=== PATIENT | male | born 1945 | race Caucasian/White ===

== ENCOUNTER 2023-04-01 11:04 | Emergency (ER) | payer MEDICARE, SELFPAY ==
[2023-04-01 11:06] VITALS: BP 137/62; PULSE 116; RESP 16; TEMP 36.4; O2SAT 100
--- NOTE | 2023-04-01 11:26 | EDS_ITS ---
HPI <TY Gordillo - Last Filed: 04/01/23 15:56> History of Present Illness Chief Complaint: Cellulitis Narrative Narrative: Patient presenting today with cellulitis to his right arm that he has had for the past 4 days. He reports that the area has been worsening prompting him to come in to be evaluated. He denies any fever, chills, abdominal pain, nausea, and vomiting. PMH includes hyperlipidemia, hypertension, and a, leaky heart valve. PFSH <TY Gordillo - Last Filed: 04/01/23 15:56> PFSH Medical History (Updated 04/01/23 @ 11:[address] Michael Hogan MD) Arthritis Hypertension Leaky heart valve Home Medications cephalexin 500 mg capsule 500 mg PO Q6 #40 CAPSULES 04/01/23 [Rx Last Taken Unknown] Allergy/AdvReac Type Severity Reaction Status Date / Time sacubitril [From Entresto] Allergy Mild cough Verified 04/01/23 11:06 valsartan [From Entresto] Allergy Mild cough Verified 04/01/23 11:06 Social History Smoking Status: Never smoker ROS <TY Gordillo - Last Filed: 04/01/23 15:56> ROS ED Constitutional Constitutional ED: Denies chills or fever(s) Cardiovascular Cardiovascular: Denies chest pain Respiratory/Chest Respiratory/Chest: Denies cough or dyspnea Gastrointestinal Gastrointestinal: Denies abdominal pain, nausea or vomiting Musculoskeletal Musculoskeletal: Denies arthralgias or myalgias Integumentary Denies rash Neurologic Neurologic: Denies paresthesias or weakness EXAM <TY Gordillo - Last Filed: 04/01/23 15:56> Physical Exam Const Vital Signs: 04/01/23 11:06 04/01/23 11:56 04/01/23 11:56 Temperature 97.6 F L 98.5 F 98.5 F Temperature Source Temporal Oral Oral Pulse Rate 116 H 104 H 105 H Respiratory Rate 16 23 H 18 Blood Pressure 137/62 H 111/70 111/70 Blood Pressure Mean 87 83 83 Pulse Ox 100 95 95 Oxygen Delivery Method Room Air Room Air Room Air 04/01/23 13:19 04/01/23 13:19 04/01/23 14:52 Temperature 98.5 F Temperature Source Oral Pulse Rate 90 90 100 Respiratory Rate 18 18 Blood Pressure 120/68 120/68 120/72 Blood Pressure Mean 85 85 88 Pulse Ox 91 91 96 Oxygen Delivery Method Room Air Room Air Positive well nourished, well developed and no apparent distress General Appearance ED: well developed HEENT Reports normocephalic and head/scalp atraumatic Mouth ED: Yes moist mucous membranes normal Eyes PERRL and EOMs intact bilaterally Neck full ROM and supple Chest Wall inspection of chest normal Resp normal respiratory effort and clear to auscultation bilaterally Cardio regular rate and regular rhythm GI soft to palpation, non-tender, non-distended and no masses Back/Spine normal ROM and normal to inspection Extremity full ROM Extremity Narrative: Generalized erythema, edema, and warmth to the right forearm and upper arm, no lymphangitic streaking, radial pulse 2+ and equal bilaterally, good cap refill, sensation intact. Small scabbed dime size wound to the right volar mid forearm without any purulent discharge. Neuro oriented x3, CN's II-XII intact bilaterally, moves all extremities, no focal motor deficits and no sensory deficits noted Sensorium / Orientation: awake and alert Psych mental status grossly normal and thought process normal Skin no rashes or lesions noted and no wounds <Dr. Michael Hogan MD - Last Filed: 04/01/23 11:45> Physical Exam Const Vital Signs: 04/01/23 11:06 04/01/23 11:56 04/01/23 11:56 Temperature 97.6 F L 98.5 F 98.5 F Temperature Source Temporal Oral Oral Pulse Rate 116 H 104 H 105 H Respiratory Rate 16 23 H 18 Blood Pressure 137/62 H 111/70 111/70 Blood Pressure Mean 87 83 83 Pulse Ox 100 95 95 Oxygen Delivery Method Room Air Room Air Room Air 04/01/23 13:19 04/01/23 13:19 04/01/23 14:52 Temperature 98.5 F Temperature Source Oral Pulse Rate 90 90 100 Respiratory Rate 18 18 Blood Pressure 120/68 120/68 120/72 Blood Pressure Mean 85 85 88 Pulse Ox 91 91 96 Oxygen Delivery Method Room Air Room Air MDM <TY Gordillo - Last Filed: 04/01/23 15:56> [facility] MDM Narrative Medical decision making narrative: Patient presenting today due to cellulitis to his right upper extremity, he does have erythema and edema to the forearm and upper arm without any lymphangitic streaking. There is a small scabbed dime sized wound to the volar aspect of the midforearm that is likely the source of infection. Patient is tachycardic here at 116 bpm, but he is nontoxic-appearing and afebrile. Labs obtained and he will be started on antibiotics. Patient does have an elevated WBC at 13.9. He has been started on vancomycin and Ancef. Patient would prefer to be treated as an outpatient which I think is reasonable. The cellulitis was marked with a marker and he will be put on Keflex. He has been given strict return instructions and is to follow-up with his PCP in 3 to 5 days. He will be discha rged home in stable condition and is comfortable with plan. Lab Data Lab results narrative: WBC 13.9, BUN 27 Labs: Laboratory Results - last 24 hr 04/01/23 11:25 WBC 13.9 H RBC 4.52 L Hgb 14.4 Hct 44.9 MCV 99.3 H MCH 31.9 MCHC 32.1 RDW Std Deviation 48.9 H RDW Coeff of Santiago 13.3 Plt Count 158 MPV 9.7 Immature Gran % (Auto) 0.800 Neut % (Auto) 88.0 H Lymph % (Auto) 5.5 L Cedar % (Auto) 5.3 Eos % (Auto) 0.1 Baso % (Auto) 0.3 Absolute Neuts (auto) 12.3 H Absolute Lymphs (auto) 0.77 L Nucleated RBC % 0 Sodium 140 Potassium 3.9 Chloride 108 H Carbon Dioxide 26.0 Anion Gap 6 BUN 27 H Creatinine 1.11 Estim Creat Clear Calc 53.08 Est GFR (MDRD) Af Amer 82 Est GFR (MDRD) Non-Af 68 BUN/Creatinine Ratio 24.3 H Glucose 193 H Calcium 8.8 <Dr. Michael Hogan MD - Last Filed: 04/01/23 11:45> [facility] Lab Data Attestation: I reviewed the patient's lab results. Labs: Laboratory Results - last 24 hr 04/01/23 11:25 WBC 13.9 H RBC 4.52 L Hgb 14.4 Hct 44.9 MCV 99.3 H MCH 31.9 MCHC 32.1 RDW Std Deviation 48.9 H RDW Coeff of [place] 13.3 Plt Count 158 MPV 9.7 Immature Gran % (Auto) 0.800 Neut % (Auto) 88.0 H Lymph % (Auto) 5.5 L Cedar % (Auto) 5.3 Eos % (Auto) 0.1 Baso % (Auto) 0.3 Absolute Neuts (auto) 12.3 H Absolute Lymphs (auto) 0.77 L Nucleated RBC % 0 Sodium 140 Potassium 3.9 Chloride 108 H Carbon Dioxide 26.0 Anion Gap 6 BUN 27 H Creatinine 1.11 Estim Creat Clear Calc 53.08 Est GFR (MDRD) Af Amer 82 Est GFR (MDRD) Non-Af 68 BUN/Creatinine Ratio 24.3 H Glucose 193 H Calcium 8.8 Treatment and Re-Evaluation Comments:: I have personally performed a face to face assessment of the patient and have reviewed the GILDA Note. I performed a substantive portion of the visit including all aspects of the following. My morrow findings include: History is gradual onset mild soreness, with redness and swelling right upper extremity over the last few days, no known injury, no systemic symptoms. Exam is diffuse swelling right upper extremity down to the wrist, with erythema that is only mildly tender, there is no induration and there is no fluctuance/abscess but there are several scabbed areas within the area of erythema and mild tenderness, any of which could have been nidus for infection, patient unsure how he got these. All compartments soft and nondistended full range of motion all joints except for shoulders which she has chronic discomfort in, but he can move them well below his head, is neurovascular intact distally, and he is well-appearing nontoxic otherwise. Medical Decison Making Labs, IV antibiotics, offered admission patient prefers to go home, so we will try to give him Ancef and vancomycin here for the most IV coverage possible, followed by a outlining the red area proximally with a skin marking pen and prescribing outpatient or antibiotics with close outpatient follow-up advised. We discussed reasons to return to comfortable with the plan. Other additions or changes: [None] Discharge Plan Triage Chief Complaint: Cellulitis ED Midlevel Provider: Anna Koehler ED Provider: Michael Hogan Dx/Rx/DC Orders Clinical Impression: Cellulitis of right upper extremity Instructions: Cellulitis Dc Prescriptions: New cephalexin 500 mg capsule 500 mg PO Q6 Qty: 40 0RF Primary Care Provider: Sebastián Stewart Referrals: Sebastián Stewart MD [Primary Care Provider] - 3-5 Days Activity Restrictions/Additional Instructions: Take antibiotics as prescribed, follow-up with your PCP in 3 to 5 days and return for any worsening of your symptoms. Disposition Disposition: Home, Self Care Discharge Date/Time: 04/01/23 14:58
[2023-04-01 11:37] LABS: Absolute Lymphocyte Count 0.77 X10^3/uL (0.83-4.51); Absolute Neutrophil Count 12.3 X10^3/uL (2.0-7.7); Basophil# 0.04 X10^3/uL; Basophil% 0.3 % (0-1); Eosinophil# 0.01 X10^3/uL; Eosinophils% 0.1 % (0-5); Hematocrit 44.9 % (40-54); Hemoglobin 14.4 g/dL (13.0-16.5); Lymphocyte # 0.77 X10^3/ul (0.83-4.51); Lymphocyte % 5.5 % (19-41); Mean Corp Hgb Conc 32.1 g/dL (32-36); Mean Corpuscular Hgb 31.9 pg (27.0-32.0); Mean Corpuscular Volume 99.3 fL (80-94); Mean Platelet Vol. 9.7 fl (6.2-12.0); Monocyte# 0.74 X10^3/uL; Monocyte% 5.3 % (0-10); NRBC Flagged by Analyzer 0 % (0-5); Neutrophil # 12.27 X10^3/uL (2.7-7.7); Platelet Count 158 K/mm3 (150-450); RBC Distribution Width CV 13.3 % (11.6-14.6); RBC Distribution Width SD 48.9 fl (35.1-43.9); Red Blood Count 4.52 M/mm3 (4.6-6.2); White Blood Count 13.9 K/mm3 (4.4-11.0)
[2023-04-01 11:48] VITALS: BMI 32.2
[2023-04-01 11:51] LABS: Anion Gap 6 (5-15); BUN 27 mg/dL (7-18); BUN/Creat Ratio 24.3 RATIO (10-20); Calcium,Total 8.8 mg/dL (8.5-10.1); Chloride 108 mmol/L (98-107); Creatinine, Serum 1.11 mg/dL (0.70-1.30); EST Glomerular Filtration Rate 68 mL/min (>60); Est Glom Filt Rate - Afr Amer 82 mL/min (>60); Estimated Creatinine Clearance 53.08 ml/min; Glucose 193 mg/dL (74-106); Potassium 3.9 mmol/L (3.5-5.1); Sodium Level 140 mmol/L (136-145)
[2023-04-01 11:56] VITALS: BP 111/70; PULSE 104; PULSE 105; RESP 18; RESP 23; TEMP 36.9; O2SAT 95; BMI 32.5
[2023-04-01] MEDS: Cefazolin 1 GM/50 ML BAG IV (12:03)
[2023-04-01] MEDS: Vancomycin HCl 1,500 MG in 0.9% Normal Saline (500mL Bag) 500 ML 250 MG IV (12:43)
[2023-04-01 13:19] VITALS: BP 120/68; PULSE 90; RESP 18; TEMP 36.9; O2SAT 91
[2023-04-01 14:52] VITALS: BP 120/72; PULSE 100; O2SAT 96
== END 2023-04-01 14:58 | disposition home or self-care (01) ==
PROVIDERS: Physician Assistant; Emergency Provider Emergency Medicine; PCP Family Medicine; Visit Provider Emergency Medicine
DX: L03.113 Cellulitis of right upper limb (principal); R60.0 Localized edema; E78.5 Hyperlipidemia, unspecified; I10 Essential (primary) hypertension
CPT/HCPCS: 80048; 85025; 96365; 96366; 96367; 99282; J7040; J7050; A4216

== ENCOUNTER 2023-04-27 11:52 | Inpatient (IN) | payer MEDICARE, SELFPAY ==
[2023-04-27] VITALS (33 sets, daily range): BP systolic 115–157; BP diastolic 62–93; PULSE 83–105; RESP 11–20; TEMP 36–37.3; O2SAT 92–100; BMI 32.1; BMI 30.1
--- NOTE | 2023-04-27 11:54 | EKG12_ITS ---
Test Reason : NEURO Blood Pressure : / mmHG Vent. Rate : 101 BPM Atrial Rate : 150 BPM P-R Int : 184 ms QRS Dur : 094 ms QT Int : 350 ms P-R-T Axes : 052 -02 096 degrees QTc Int : 453 ms Sinus tachycardia with frequent and consecutive Premature ventricular complexes Nonspecific ST and T wave abnormality Abnormal ECG Confirmed by GLYNN LEE, [employer] ([id number]), city editor SHANIQUA COHEN ([id number]) on 04/30/2023 8:27:03 AM Referred By: Confirmed By:BRANDI MAKI MD
--- NOTE | 2023-04-27 11:54 | CT_ITS ---
STUDY: CTA HEAD AND NECK WITH CONTRAST REASON FOR EXAM: Male, 78 years old. Neuro deficit, acute, stroke suspected RADIATION DOSAGE (If Supplied By Facility): CTDIvol = ( 28.48 ) mGy, DLP = ( 782.71 ) mGycm TECHNIQUE: CT angiography was performed with a multi-detector CT scanner. Data acquisition was obtained from the skull base through the vertex following intravenous administration of IV-100 ML [id number]. MIP images were reconstructed from the axial data set. Post-processing of the angiographic images was performed, with multiplanar reformation and 3D reconstruction. Individualized dose optimization techniques were used for this CT. COMPARISON: No relevant priors. FINDINGS: Normal bilateral petrous carotid arteries. There is calcified plaque formation of the right cavernous carotid artery, without a cross-sectional luminal stenosis. There is calcified plaque formation of the left cavernous carotid artery, without a cross-sectional luminal stenosis. Normal right A1 segments of the anterior cerebral artery. Normal left A1 segments of the anterior cerebral artery. Normal intact anterior communicating artery (ACOM). Normal bilateral A2 segments of the anterior cerebral arteries. Normal right M1 and M2 segments of the middle cerebral arteries, with a normal M1 bifurcation. Normal left M1 and M2 segments of the middle cerebral arteries, with a normal M1 bifurcation. Normal right posterior communicating artery (PCOM). Normal left posterior communicating artery (PCOM). Normal bilateral vertebral arteries. Normal basilar artery with a normal basilar bifurcation. The visualized bilateral superior cerebellar (SCA) arteries are normal. Normal bilateral P1, P2 and visualized P3 segments of the posterior cerebral arteries. There is no demonstrated aneurysm of the [place]. AORTIC ARCH: There is atherosclerotic calcific plaque formation of the aortic arch and great vessels arising from the aortic arch, without a hemodynamically significant stenosis. There is a normal origin of the brachiocephalic, left common carotid, and left subclavian arteries. RIGHT CAROTID ARTERIES: Normal right common carotid artery (CCA). Normal right common carotid bulb. There is mild atherosclerotic plaque formation of the origin of the right internal carotid artery with less than 50% cross sectional diameter stenosis. Normal visualized cervical portion of the right internal carotid artery. There is severe atherosclerotic plaque formation of the origin of the right external carotid artery with a near complete occlusion. LEFT CAROTID ARTERIES: Normal left common carotid artery (CCA). Normal left common carotid bulb. There is mild atherosclerotic plaque formation of the origin of the left internal carotid artery with less than 50% cross sectional diameter stenosis. Normal visualized cervical portion of the left internal carotid artery. Normal origin of the left external carotid artery (ECA). VERTEBRAL ARTERIES: Calcific plaques seen in the distal portion of the left vertebral artery. CT/STROKE CTA Head AND Neck W/Con IMPRESSION: Minimal plaque at the origin of the right and left internal carotid arteries causing less than 50% narrowing. 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 N.B. : The above Results were Read Back by Ramesh Meehan MD to Dr David MD, and understanding confirmed on 04/27/2023 12:16:17 (ET). Electronically Signed: Ramesh Meehan MD at 12:17 EST ,
--- NOTE | 2023-04-27 11:55 | CT_ITS ---
STUDY: CT HEAD STROKE PROTOCOL W/O CONTRAST INJECTION REASON FOR EXAM: Male, 78 years old. Neuro deficit, acute, stroke suspected RADIATION DOSAGE (If Supplied By Facility): CTDIvol = ( 44.99 ) mGy, DLP = ( 782.05 ) mGycm TECHNIQUE: Transaxial CT imaging of the brain was performed without administration of intravenous contrast material. Individualized dose optimization techniques were used for this CT. COMPARISON: No relevant priors. FINDINGS: Normal soft tissue structures. Normal calvarium. There is mild cerebral atrophy with widening of the extra-axial spaces and ventricular dilatation. Normal white matter tracts of the cerebral hemispheres. Tiny lacuna in the head of the right caudate nucleus. This most likely is old. Normal brainstem. Normal cerebellum. There is no intracranial hemorrhage. There are no findings of an acute ischemic infarction. Atherosclerotic calcification of the basilar artery and the cavernous portions of the internal carotid arteries bilaterally. Normal visualized paranasal sinuses. ASPECT score: 9 CT/STROKE Brain/Head without Cont IMPRESSION: Chronic involutional changes of the brain. Questionable tiny old lacunar infarct in the head of the right caudate nucleus. N.B. : The above Results were Read Back by Ramesh Meehan MD to [facility] and understanding confirmed on 04/27/2023 12:07:16 (ET). Electronically Signed: Ramesh Meehan MD at 12:08 EST ,
--- NOTE | 2023-04-27 11:56 | ED.RN ---
THIS RN CALLED [facility] AT 1153.
--- NOTE | 2023-04-27 12:00 | ED.VIS.STROK ---
HPI History of Present Illness Chief Complaint: Neuro S/Sx Detail of Chief Complaint: Last known well 11 AM. Informant: patient and EMS Onset/Context/Timing Onset: Today (11 AM) Context: Sudden Onset Timing: Continuous Quality and Location: Positive for Left Facial Droop, Left Arm Weakness and Left Leg Weakness Onset: 11 AM Current Severity: Mild Maximum Severity: Mild Worsened by: Nothing Relieved by: Nothing Associated Symptoms Associated Symptoms: Negative for Headache, Nausea, Vomiting or Chest Pain Narrative Narrative: Patient is an 78-year-old male. He is disoriented to time. He has history of a leaky heart valve and is on a statin. He is not on an antithrombotic or anticoagulant. He denies headache. Denies visual disturbance. He denies trouble with his speech. He denies cardiac respiratory symptoms. [place] GI symptom. Prior similar symptoms: No Recent Illness/Hospitalization: No PFSH PFSH Medical History Arthritis Hypertension Leaky heart valve Home Medications cephalexin 500 mg capsule 500 mg PO Q6 #40 CAPSULES 04/01/23 [Rx Last Taken Unknown] Allergy/AdvReac Type Severity Reaction Status Date / Time sacubitril [From Entresto] Allergy Mild cough Verified 04/27/23 12:06 valsartan [From Entresto] Allergy Mild cough Verified 04/27/23 12:06 Social History Smoking Status: Never smoker ROS ROS ED Constitutional Constitutional ED: Denies chills, fever(s), subjective, sweats or weakness Eyes Eyes: Denies blurry vision, change in vision or diplopia ENT ENT ED: Denies ear pain, rhinorrhea or sore throat Cardiovascular Cardiovascular: Denies chest pain Respiratory/Chest Respiratory/Chest: Denies cough, dyspnea or dyspnea on exertion Gastrointestinal Gastrointestinal: Denies abdominal pain, nausea or vomiting Genitourinary Genitourinary ED: Denies dysuria, hematuria or urinary frequency Musculoskeletal Musculoskeletal: Reports arthralgias Integumentary Denies rash Neurologic Neurologic: Reports weakness; Denies headache(s) or paresthesias Endocrine Endocrinology: Denies polydipsia or polyuria EXAM Physical Exam Const Vital Signs: 04/27/23 12:03 04/27/23 11:53 04/27/23 12:11 Temperature 96.8 F L Temperature Source Temporal Pulse Rate Respiratory Rate 18 18 Blood Pressure 157/83 H 157/83 H Blood Pressure Mean 107 107 Pulse Ox 100 100 94 Oxygen Delivery Method Room Air Room Air Room Air 04/27/23 11:54 04/27/23 12:13 04/27/23 11:53 Temperature Temperature Source Pulse Rate 98 96 100 Respiratory Rate 16 11 L 18 Blood Pressure 141/90 H 141/90 H 157/83 H Blood Pressure Mean 107 107 107 Pulse Ox 97 96 100 Oxygen Delivery Method Room Air Room Air Room Air 04/27/23 12:23 Temperature Temperature Source Pulse Rate Respiratory Rate Blood Pressure 126/79 H Blood Pressure Mean Pulse Ox Oxygen Delivery Method Positive well nourished and well developed General Appearance ED: well developed and NAD HEENT Reports moist mucous membranes atraumatic Eyes PERRL and EOMs intact bilaterally Eyes Narrative: There is no nystagmus. General Eye ED: Yes scleral icterus; Negative for pale conjunctiva Neck no lymphadenopathy, supple and no JVD Cardio no murmurs Rate: regular rate Rhythm: regular rhythm GI normal to inspection, nondistended, normoactive bowel sounds, soft to palpation, non-tender, non-distended and no masses Back/Spine no CVA tenderness Extremity General Extremety ED: Negative for deformity or tenderness General Extremity: Negative for deformity Neuro No oriented x3, CN's II-XII intact bilaterally and No no sensory deficits noted Idania Coma Scale: document GCS findings Spontaneous Obeys Commands Confused 14 Sensorium / Orientation: Negative for alert Speech: speech normal Skin no wounds General Skin Exam: Negative for jaundice Lesions: no lesions Rashes: no rashes NIHSS NIHSS Initial: 1a Level of Consciousness: 1 1b LOC Questions (Score 2 if aphasic/stupor): 1 1c LOC Commands (Only score 1st attempt): 0 2 Best Gaze (If aphasic, use reflexive mvmts.): 0 3 Visual: 0 4 Facial Palsy: 1 5 Motor Arm Right (UN = amputation/fusion): 0 5 Motor Arm Left: 0 6 Motor Leg Right: 0 6 Motor Leg Left: 1 7 Limb ataxia (Only + if out of proportion): 0 8 Sensory (Aphasia/stupor=0 or 1, coma=2): 1 9 Best Language: 0 10 Dysarthria (mute, coma=2, intubated=UN): 0 11 Extinction and Inattention (only scored if +): 0 Total Score: 5 MDM MDM MDM Narrative Medical decision making narrative: Prehospital stroke team was called. Pharmacy was made aware that patient is a candidate for TNK. Patient's deficits are minor. Will discuss with neurology at [facility] prior to administration of TNK. He has no contraindications. Prior to ordering tenecteplase pharmacy was made aware. The order was placed. Tenecteplase order set was used. Spoke with Dr. Garcia neurologist at [facility]. Patient will require admission to ICU. History & Record Review Discussion w/independent historian: EMS personnel and Patient Radiography Diagnostic Testing: Clinical Impression(s) from Imaging Studies Head/Neck CTA 04/27/23 11:54 IMPRESSION: Minimal plaque at the origin of the right and left internal carotid arteries causing less than 50% narrowing. 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 N.B. : The above Results were Read Back by Ramesh Meehan MD to Dr David MD, and understanding confirmed on 04/27/2023 12:16:17 (ET). Electronically Signed: Ramesh Meehan MD at 12:17 EST , ADDENDUM: 04/27/23 1224 IMPRESSION: Minimal plaque at the origin of the right and left internal carotid arteries causing less than 50% narrowing. 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 N.B. : The above Results were Read Back by Ramesh Meehan MD to Dr David MD, and understanding confirmed on 04/27/2023 12:16:17 (ET). Electronically Signed: Ramesh Meehan MD at 12:17 EST , Brain CT 04/27/23 11:55 IMPRESSION: Chronic involutional changes of the brain. Questionable tiny old lacunar infarct in the head of the right caudate nucleus. N.B. : The above Results were Read Back by Ramesh Meehan MD to Isai Hernandez and understanding confirmed on 04/27/2023 12:07:16 (ET). Electronically Signed: Ramesh Meehan MD at 12:08 EST , ADDENDUM: 04/27/23 1215 IMPRESSION: Chronic involutional changes of the brain. Questionable tiny old lacunar infarct in the head of the right caudate nucleus. N.B. : The above Results were Read Back by Ramesh Meehan MD to Isai Hernandez and understanding confirmed on 04/27/2023 12:07:16 (ET). Electronically Signed: Ramesh Meehan MD at 12:08 EST , EKG Initial EKG: Attestation: I personally reviewed and interpreted this EKG as follows: Interpretation: Sinus Tachycardia (Rate is 101. Patient has couplets of premature ventricular beats. There is no ossific ST-T wave changes noted. The DE interval is 184 ms. The QRS duration is 94 ms. QT durations are 150 ms. Mary D is normal.) Treatment and Re-Evaluation Narrative: I did receive a call at 1208 from radiology regarding patient's scan. There is no acute findings. Stroke Documentation Questions Stroke Team Activated: Yes Reviewed Inclusion/Exclusion criteria: Yes IV Thrombolytic Administered: Yes No contraindications from thrombolytic administration: Yes Risks, Benefits, Alternatives Discussed: Yes Not given: Patient refusal: No Critical Care Time Critical Care Time: Yes Critical care time (excluding procedures): 30-74 minutes (31), Including time spent: (Prehospital report, examination in ambulance bay, examination and radiology suite, completion of right exam in room 8, discussion with radiologist, discussion with neurologist at [facility] Dr. Garcia), Discussing w/Patient &/or Family/[facility] Treater (Inform patient that he is having a stroke. Informed patient of his benefits of tenecteplase and that this is recommended by the neurologist at [facility].), Discussing w/Consultants (Radiologist and neurologist at [facility] and [facility] respectively.), Arranging Admission or Transfer (Hospitalist paged for admission) and Performing Direct Patient Care at Bedside Discharge Plan Triage Chief Complaint: Neuro S/Sx ED Provider: Isai Hernandez Dx/Rx/DC Orders Clinical Impression: Acute stroke due to ischemia, Hx of valvular heart disease, Frequent ventricular premature beats, Hypercholesterolemia, Elevated blood-pressure reading, without diagnosis of hypertension, Sinus tachycardia by electrocardiogram Prescriptions: No Action cephalexin 500 mg capsule 500 mg PO Q6 Qty: 40 0RF Primary Care Provider: Sebastián Stewart Referrals: Sebastián Stewart MD [Primary Care Provider] - Disposition Disposition: Home, Self Care
--- NOTE | 2023-04-27 12:08 | ED.RN ---
PT STATES LEFT LEG WEAKNESS/NUMBNESS FOR 5-6 MONTHS.
--- NOTE | 2023-04-27 12:14 | ED.RN ---
THIS RN CALLED [facility] TO LET THEM KNOW PT IN ROOM AT 1209. [facility] NEUROLOGIST TO BEAM IN.
--- NOTE | 2023-04-27 12:15 | ED.RN ---
PT STATES HE DOES NOT TAKE BLOOD THINNERS.
[2023-04-27] MEDS: 0.9% Saline Lock 10 ML Syringe IV ×2 (12:21→12:24)
[2023-04-27 12:28] LABS: Absolute Lymphocyte Count 1.46 X10^3/uL (0.83-4.51); Absolute Neutrophil Count 5.6 X10^3/uL (2.0-7.7); Basophil# 0.05 X10^3/uL; Basophil% 0.6 % (0-1); Eosinophil# 0.14 X10^3/uL; Eosinophils% 1.7 % (0-5); Hematocrit 41.1 % (40-54); Hemoglobin 12.5 g/dL (13.0-16.5); Lymphocyte # 1.46 X10^3/ul (0.83-4.51); Mean Corp Hgb Conc 30.4 g/dL (32-36); Mean Corpuscular Hgb 30.6 pg (27.0-32.0); Mean Corpuscular Volume 100.5 fL (80-94); Mean Platelet Vol. 10.5 fl (6.2-12.0); Monocyte# 0.81 X10^3/uL; NRBC Flagged by Analyzer 0 % (0-5); Neutrophil # 5.58 X10^3/uL (2.7-7.7); Platelet Count 214 K/mm3 (150-450); RBC Distribution Width SD 48.2 fl (35.1-43.9); Red Blood Count 4.09 M/mm3 (4.6-6.2); White Blood Count 8.1 K/mm3 (4.4-11.0)
--- NOTE | 2023-04-27 12:33 | PCM.HP.STD ---
HPI - General General Date of Admission: 04/27/23 Date of Service: 04/27/23 Chief Complaint: Left-sided weakness. 1 left-sided facial droop today. HPI Narrative TELLO BLANKENSHIP, is a 78 M was brought by EMS squad for left-sided weakness and facial droop with slurred speech, sudden onset about 11 AM. As per daughter he was making delivery of lumbar and when he tried to get out of car he felt left-sided weakness. Vitals by EMS BP 155/83, 177/95.Blood glucose 102. Stroke alert was called. In ED, and LKW 11 AM. Left arm weakness left leg weakness. Negative for headache nausea vomiting or chest pain. Patient denies any history of CT or cardiac stent but he states he feels short of breath on exertion and sometimes chest pain/heaviness. He follows pickle maker for leapt and had valve, Dr. Sellers in [facility] [place]. EKG in ED sinus tachycardia with frequent PVCs, bigeminy pattern QTc 453 ms. Vitals and labs reviewed in the ED. NIH stroke scale in ED 5. [facility] neurologist, Dr. Garcia was consulted and patient was found candidate for tenecteplase and was given. Patient further admitted in ICU. Patient has history of chronic severe left hip arthritis and as per daughter, his left leg weakness improved after tenecteplase and is on baseline weakness due to arthritis. Left shoulder repair. Right hip replacement. Family history no significant family history regarding to the current present illness. Social history: Patient not a smoker. [facility] Medical History Arthritis Hypertension Leaky heart valve Home Medications hydrocodone-acetaminophen 5-325mg 5mg-325mg 1 tab PO Q6H PRN hip pain 04/27/23 [History Last Taken 04/27/23 06:30] metoprolol succinate 25 mg tablet,extended release 24 hr 25 mg PO DAILY heart blockage 04/27/23 [History Last Taken Unknown] simvastatin 10 mg tablet 10 mg PO QHS cholesterol 04/27/23 [History Last Taken Unknown] Allergy/AdvReac Type Severity Reaction Status Date / Time sacubitril [From Entresto] Allergy Mild cough Verified 04/27/23 12:06 valsartan [From Entresto] Allergy Mild cough Verified 04/27/23 12:06 Social History Smoking Status: Never smoker ROS ROS Narrative Constitutional: Reports fatigue and weakness. No fever. HEENT: Reports systems reviewed and no addt'l complaints, except as documented Respiratory/Chest: No acute shortness of breath or respiratory distress or wheezing. CVS: As described in HPI Gastrointestinal: Denies coffee ground emesis, hematemesis or vomiting Genitourinary: Denies burning urination or new urinary tract symptoms Musculoskeletal: Chronic left hip arthritis. Denies acute joint pain or limited range of motion. No acute injury. Neurologic: Denies seizure-like symptoms. Rest as described in HPI skin: Mild skin tear over right forearm about 2 days ago before the stroke. Endocrinology: Reports systems reviewed and no addt'l complaints, except as documented Hematologic/Lymphatic: Reports systems reviewed and no addt'l complaints, except as documented Rest 14 ROS are negative except as mentioned in HPI Vital Signs Vital Signs Vital Signs: 04/27/23 12:03 04/27/23 11:53 04/27/23 12:11 Temperature 96.8 F L Temperature Source Temporal Pulse Rate Respiratory Rate 18 18 Blood Pressure 157/83 H 157/83 H Blood Pressure Mean 107 107 Blood Pressure Source Blood Pressure Position Blood Pressure Location Pulse Ox 100 100 94 Oxygen Delivery Method Room Air Room Air Room Air 04/27/23 11:54 04/27/23 12:13 04/27/23 11:53 Temperature Temperature Source Pulse Rate 98 96 100 Respiratory Rate 16 11 L 18 Blood Pressure 141/90 H 141/90 H 157/83 H Blood Pressure Mean 107 107 107 Blood Pressure Source Blood Pressure Position Blood Pressure Location Pulse Ox 97 96 100 Oxygen Delivery Method Room Air Room Air Room Air 04/27/23 12:23 04/27/23 12:24 04/27/23 12:29 Temperature Temperature Source Pulse Rate 94 94 Respiratory Rate 17 16 Blood Pressure 126/79 H 126/79 H 136/92 H Blood Pressure Mean 94 106 Blood Pressure Source Monitor Blood Pressure Position Semi-Fowlers Blood Pressure Location Left Arm Pulse Ox 95 97 Oxygen Delivery Method Room Air Room Air Weight Weight: 217 lb 13.067 oz Body Mass Index (BMI) 32.1 Physical Exam Narrative General: Alert, Oriented x3, Cooperative HEENT: Atraumatic, PERRLA, EOMI, Normocephalic. No diplopia/hemianopia/quadrantanopsia or anopia Oral: Oral mucosa moist. No Gingival or Mucosal Lesions/ Ulcerations Neck: Supple, No JVD, Negative Carotid Bruits Lungs: Air entry diminished in bilateral lung bases. No crepitation/rhonchi Cardiovascular: Regular rate, Regular Rhythm, Normal S1, Normal S2, ejection systolic murmur over right second ICS. Holosystolic over cardiac apex. Abdomen: Bowel Sounds Present, Soft, Non Tender, Non-Distended : No renal angle tenderness. No suprapubic tenderness. Extremities: No edema, Capillary Refill Less than 3 Seconds Skin: No rashes, No breakdown Musculoskeletal: No Tenderness to Palpation of Joints or Extremities. ROM restricted over left hip due to arthritis. Neurological: Cranial nerves II-XII grossly intact, DTR 2+/4. Improvement in weakness. Coordination/finger-nose test negative. Mild weakness on left lower extremity at baseline due to arthritis. Improvement Psych/Mental Status: Normal Affect, Appropriate. Results Lab / Micro Data 04/27/23 12:10 04/27/23 12:10 Labs: Laboratory Results - last 24 hr 04/27/23 12:10: WBC 8.1, RBC 4.09 L, Hgb 12.5 L, Hct 41.1, MCV 100.5 H, MCH 30.6, MCHC 30.4 L, RDW Std Deviation 48.2 H, RDW Coeff of Santiago 13.0, Plt Count 214, MPV 10.5, Immature Gran % (Auto) 0.700, Neut % (Auto) 69.0, Lymph % (Auto) 18.0 L, [place] % (Auto) 10.0, Eos % (Auto) 1.7, Baso % (Auto) 0.6, Absolute Neuts (auto) 5.6, Absolute Lymphs (auto) 1.46, Nucleated RBC % 0 Radiology Impression Head/Neck CTA 04/27/23 11:54 IMPRESSION: Minimal plaque at the origin of the right and left internal carotid arteries causing less than 50% narrowing. 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 N.B. : The above Results were Read Back by Ramesh Meehan MD to Dr David MD, and understanding confirmed on 04/27/2023 12:16:17 (ET). Electronically Signed: Ramesh Meehan MD at 12:17 EST , ADDENDUM: 04/27/23 1224 IMPRESSION: Minimal plaque at the origin of the right and left internal carotid arteries causing less than 50% narrowing. 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 N.B. : The above Results were Read Back by Ramesh Meehan MD to Dr David MD, and understanding confirmed on 04/27/2023 12:16:17 (ET). Electronically Signed: Ramesh Meehan MD at 12:17 EST , Brain CT 04/27/23 11:55 IMPRESSION: Chronic involutional changes of the brain. Questionable tiny old lacunar infarct in the head of the right caudate nucleus. N.B. : The above Results were Read Back by Ramesh Meehan MD to Isai Hernandez and understanding confirmed on 04/27/2023 12:07:16 (ET). Electronically Signed: Ramesh Meehan MD at 12:08 EST , ADDENDUM: 04/27/23 1215 IMPRESSION: Chronic involutional changes of the brain. Questionable tiny old lacunar infarct in the head of the right caudate nucleus. N.B. : The above Results were Read Back by Ramesh Meehan MD to Isai Hernandez and understanding confirmed on 04/27/2023 12:07:16 (ET). Electronically Signed: Ramesh Meehan MD at 12:08 EST , Assessment & Plan Assessment/Plan (1) Acute ischemic stroke: (2) Elevated troponin I level: PLAN: Plan 1. Acute ischemic stroke with left-sided weakness status post tenecteplase: Patient is being admitted in ICU after tenecteplase given in ED. CTA head and neck shows minimal plaque at origin of right and left ICA less than 50% stenosis. High-grade stenosis of right ECA. Permissive hypertension as per protocol after tenecteplase, BP 180/105 or less. The patient is on post tenecteplase order set with NIH monitoring as per protocol. 2D echo with bubble contrast study ordered. No antiplatelet or anticoagulant for first 24 hours till repeat imaging shows no bleed. Plan for MRI brain after 24 hours of tenecteplase. Fasting profile, A1c and TSH tomorrow AM. On IV fluid to prevent MIGUELINA. 2. Elevated troponins with history of leaky heart valve probably mitral regurgitation and aortic stenosis: phototypesetting equipment monitor shows frequent PVC pulses bigeminy. No significant ST-T changes in the EKG. As per history patient might have chronic stable angina but denies history of CT or cardiac stent. First troponin high 1505. Cycle cardiac enzymes. Exhibit Artist consulted. Patient follows with outside pickle maker Dr. Sellers. 3. Hypertension: As mentioned above. VT prophylaxis: Bilateral SCDs. Living will/advanced directive/end of life care: Patient does not have living will or advanced directive. Patient does not have designated power of admitted attorneys for health. Her daughter, Mrs. Mendez present in the room is next of kin. After discussion of benefits/risks procedures involved with full code, DNR CC arrest and DNR CC, the patient and her daughter opted for full code. Patient does want artificial life support including intubation, tube feed, ventilator and/chest compression, central venous catheter, vasopressor and DC shock if needed Total time spent in [id number] encounter in discussion of advanced directive 17 minutes. Laboratory Results 04/27/23 12:10: WBC 8.1, RBC 4.09 L, Hgb 12.5 L, Hct 41.1, MCV 100.5 H, MCH 30.6, MCHC 30.4 L, RDW Std Deviation 48.2 H, RDW Coeff of Santiago 13.0, Plt Count 214, MPV 10.5, Immature Gran % (Auto) 0.700, Neut % (Auto) 69.0, Lymph % (Auto) 18.0 L, Hans[place] % (Auto) 10.0, Eos % (Auto) 1.7, Baso % (Auto) 0.6, Absolute Neuts (auto) 5.6, Absolute Lymphs (auto) 1.46, Nucleated RBC % 0, PT 14.5, INR 1.1, APTT 30.3, Sodium 141, Potassium 4.3, Chloride 109 H, Carbon Dioxide 26.0, Anion Gap 6, BUN 29 H, Creatinine 0.89, Estim Creat Clear Calc 66.20, Est GFR (MDRD) Af Amer 105, Est GFR (MDRD) Non-Af 87, BUN/Creatinine Ratio 32.5 H, Glucose 95, Calcium 8.2 L, Magnesium 2.3, Troponin I High Sens 1505 H* Clinical Impression(s) from Imaging Studies Head/Neck CTA 04/27/23 11:54 IMPRESSION: Minimal plaque at the origin of the right and left internal carotid arteries causing less than 50% narrowing. 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 Brain CT 04/27/23 11:55 IMPRESSION: Chronic involutional changes of the brain. Questionable tiny old lacunar infarct in the head of the right caudate nucleus. Chest X-Ray 04/27/23 12:40 IMPRESSION: No acute abnormality is seen. Electronically Signed: Ramesh Meehan MD at 13:16 EST , Charges/Coding Visit Charges Inpatient E&M: 49959 Init Hosp L3 Procedures Hospitalists Procedures: 54695 Advncd Care Plan 30 Min
[2023-04-27 12:36] LABS: International Normalized Ratio 1.1; Prothrombin Time (Protime)PT. 14.5 SECONDS (11.7-14.9)
--- NOTE | 2023-04-27 12:36 | ED.RN ---
THIS RN CALLED [facility] AT 1235 TO INQUIRE ABOUT NEUROLOGIST NOT BEAMING IN. PER [facility], NEUROLOGY SPOKE TO DR. POSADAS ON PHONE PRIOR TO ADMINISTRATION OF TNK. [facility] NEUROLOGIST NOT TO BEAM IN AT THIS TIME.
[2023-04-27 12:37] LABS: Partial Thromboplast Time 30.3 Seconds (24.1-36.2)
--- NOTE | 2023-04-27 12:40 | RAD_ITS ---
STUDY: X-RAY CHEST REASON FOR EXAM: Male, 78 years old. Neuro deficit, acute, stroke suspected TECHNIQUE: Single AP portable view of the chest. COMPARISON: None. FINDINGS: EKG electrodes are seen. The lungs are clear and expanded. There is no demonstrated pleural abnormality. Normal size heart. Normal mediastinum and niles. Normal visualized pulmonary arteries. There is atherosclerotic calcification of the aortic arch with tortuosity. There are diffuse degenerative changes of the visualized thoracic spine. -Arthritis of the right shoulder joint. Prior ORIF of the proximal left humeral fracture. There is no demonstrated abnormality of the visualized soft tissue structures of the upper abdomen. RAD/Chest 1 View IMPRESSION: No acute abnormality is seen. Electronically Signed: Ramesh Meehan MD at 13:16 EST ,
--- NOTE | 2023-04-27 13:02 | ED.RN ---
THIS RN CALLED REPORT TO ICU AT 1303. REPORT GIVEN TO LEVI JAIME.
--- NOTE | 2023-04-27 13:06 | CON.PCM.CC_ITS ---
Assessment & Plan Assessment/Plan (1) Acute ischemic stroke: PLAN: Plan Assessment and plan * Acute ischemic stroke with left-sided weakness status post tPA the patient will require to be on aspirin and statin. He will be admitted to the ICU with close monitoring and goal BP of 180/105 mmHg or less for the first 24 hours. He will need q1hr neuro checks and swallow assessment. * Elevated troponins. EKG is pending. Patient reports history of valvular heart disease. No echo on record. Echo is ordered. cardiology consulted * HTN: will allow permissive HTN with goal BP of 180/105 mmHg or less * DVT ppx: pt is s/p TPA Pt is at high risk of deterioration given his current clinical status, recent tpa administration and possible ongoing cardiac ischemic event. Pt's daughter updated at bedside I spent 35 minutes of critical care time excluding the procedure time. I reviewed lab work, images, previous records and medication list. HPI Consult Data Date of Consult: 04/27/23 HPI Narrative Reason for Consultation: Stroke status post tPA HPI Narrative: TELLO BLANKENSHIP, is a 78 M with past medical history of hyperlipidemia, hypertension and valvular heart disease who presents with chief complaint of left-sided weakness and numbness that started this morning while he was driving. A stroke alert was called. NIH scale was 5. CT head was negative. CTA shows high-grade stenosis of right external carotid artery. tele neuro at [facility] deemed patient candidate for tPA. He was administered tPA a and will be monitored in the ICU. Patient's daughter was at bedside in the ED when I evaluated the patient. Denies dizziness, nausea or vomiting, visual disturbance or headache. Social history is negative for smoking Surgical history significant for left shoulder replacement and right hip replacement. [facility] Medical History Arthritis Hypertension Leaky heart valve Home Medications cephalexin 500 mg capsule 500 mg PO Q6 #40 CAPSULES 04/01/23 [Rx Last Taken Unknown] Allergy/AdvReac Type Severity Reaction Status Date / Time sacubitril [From Entresto] Allergy Mild cough Verified 04/27/23 12:06 valsartan [From Entresto] Allergy Mild cough Verified 04/27/23 12:06 Social History Smoking Status: Never smoker Physical Exam Narrative General alert oriented in no acute distress HEENT. Normocephalic atraumatic, pupils equal and reactive Respiratory reduced air entry bilaterally, mild end expiratory wheeze, no crackles Cardiac S1-S2, regular rate and rhythm GI abdomen soft and nontender MSK no lower extremity edema Skin no rashes Neuro L sided upper and lower extremity weakness reduced fine touch sensation on L Lab / Micro Data 04/27/23 12:10 04/27/23 12:10 Labs: Laboratory Results - last 24 hr 04/27/23 12:10: WBC 8.1, RBC 4.09 L, Hgb 12.5 L, Hct 41.1, MCV 100.5 H, MCH 30.6, MCHC 30.4 L, RDW Std Deviation 48.2 H, RDW Coeff of Santiago 13.0, Plt Count 214, MPV 10.5, Immature Gran % (Auto) 0.700, Neut % (Auto) 69.0, Lymph % (Auto) 18.0 L, Gooding % (Auto) 10.0, Eos % (Auto) 1.7, Baso % (Auto) 0.6, Absolute Neuts (auto) 5.6, Absolute Lymphs (auto) 1.46, Nucleated RBC % 0, PT 14.5, INR 1.1, APTT 30.3 Radiology Impression Head/Neck CTA 04/27/23 11:54 IMPRESSION: Minimal plaque at the origin of the right and left internal carotid arteries causing less than 50% narrowing. 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 N.B. : The above Results were Read Back by Ramesh Meehan MD to Dr David MD, and understanding confirmed on 04/27/2023 12:16:17 (ET). Electronically Signed: Ramesh Meehan MD at 12:17 EST , ADDENDUM: 04/27/23 1224 IMPRESSION: Minimal plaque at the origin of the right and left internal carotid arteries causing less than 50% narrowing. 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 N.B. : The above Results were Read Back by Ramesh Meehan MD to Dr David MD, and understanding confirmed on 04/27/2023 12:16:17 (ET). Electronically Signed: Ramesh Meehan MD at 12:17 EST , Brain CT 04/27/23 11:55 IMPRESSION: Chronic involutional changes of the brain. Questionable tiny old lacunar infarct in the head of the right caudate nucleus. N.B. : The above Results were Read Back by Ramesh Meehan MD to Isai Hernandez and understanding confirmed on 04/27/2023 12:07:16 (ET). Electronically Signed: Ramesh Meehan MD at 12:08 EST , ADDENDUM: 04/27/23 1215 IMPRESSION: Chronic involutional changes of the brain. Questionable tiny old lacunar infarct in the head of the right caudate nucleus. N.B. : The above Results were Read Back by Ramesh Meehan MD to Isai Hernandez and understanding confirmed on 04/27/2023 12:07:16 (ET). Electronically Signed: Ramesh Meehan MD at 12:08 EST , Charges/Coding Procedures Hospitalists Procedures: [id number] Critial Care 1st Hr
[2023-04-27 13:08] LABS: Anion Gap 6 (5-15); BUN 29 mg/dL (7-18); BUN/Creat Ratio 32.5 RATIO (10-20); Calcium,Total 8.2 mg/dL (8.5-10.1); Chloride 109 mmol/L (98-107); Creatinine, Serum 0.89 mg/dL (0.70-1.30); EST Glomerular Filtration Rate 87 mL/min (>60); Est Glom Filt Rate - Afr Amer 105 mL/min (>60); Glucose 95 mg/dL (74-106); Potassium 4.3 mmol/L (3.5-5.1); Sodium Level 141 mmol/L (136-145); Troponin-I HS 1505 pg/mL (3.0-78.0)
[2023-04-27 13:13] LABS: Magnesium 2.3 mg/dL (1.6-2.6)
--- NOTE | 2023-04-27 13:30 | ED.RN ---
THIS RN TOOK PT TO THE FLOOR. [facility] COMPLETED AT THE BEDSIDE WITH GRISELDA RN AND LEVI JAIME. PT A&OX3.
--- NOTE | 2023-04-27 13:51 | ECHOD_ITS ---
Reason For Study: TIA/CVA Procedure This was a 2D Doppler, Color Flow transthoracic echocardiogram. Exam performed in department. Left Ventricle Normal LV size. The estimated ejection fraction is 50-55 %. Unable to assess diastolic dysfunction. No regional wall motion abnormalities noted. Right Ventricle Normal RV size. Normal systolic function. Atria The left atrium is mildly enlarged. Normal right atrium. No doppler evidence for ASD. Bubble contrast study negative for right to left interatrial shunt. Mitral Valve There is moderate mitral annular calcification. There is no mitral valve stenosis. Mild (1+) mitral valve insufficiency. Tricuspid Valve There is no tricuspid stenosis. Trivial tricuspid valve insufficiency. Pulmonary artery systolic pressure is 40 mmHg. Aortic Valve Trisinus/trileaflet aortic valve. Aortic sclerosis, no stenosis. There is no aortic stenosis. No aortic valve insufficiency. Pulmonic Valve There is no pulmonic valvular stenosis. Trivial pulmonic valve insufficiency. Great Vessels Normal aortic root. Pericardium/Pleural No pericardial effusion. Medication Performed a rapid injection of agitated mix of 9 cc saline and 1cc air to assess for atrial septal defect. MMode/2D Measurements & Calculations LVIDd: 5.4 cm IVSd: 1.1 cm LVOT diam: 2.2 cm LVIDs: 5.1 cm LVPWd: 1.2 cm FS: 4.4 % LVOT area: 4.0 cm2 LAV(MOD-bp): 90.9 ml LVAd ap4: 37.8 cm2 SV(MOD-sp4): 57.0 ml LAV(MOD-bp) Indexed: 42.5 ml/m2 LVLd ap4: 8.6 cm LAV(MOD-sp2): 72.2 ml EDV(MOD-sp4): 135.8 ml LAV(MOD-sp4): 115.8 ml EDV(sp4-el): 141.0 ml LVAs ap4: 26.3 cm2 LVLs ap4: 7.3 cm ESV(MOD-sp4): 78.7 ml ESV(sp4-el): 80.0 ml EF(MOD-sp4): 42.0 % EF(sp4-el): 43.3 % SV(sp4-el): 61.1 ml LA A4 area: 29.6 cm2 LA dimension(2D): 4.1 cm RA A4 area: 11.6 cm2 TAPSE: 2.2 cm Doppler Measurements & Calculations MV E max alaina: 97.6 cm/sec Ao V2 max: 199.4 cm/sec LV V1 max: 108.3 cm/sec Ao max P.9 mmHg LV V1 max P.8 mmHg Ao V2 mean: 131.0 cm/sec LV V1 mean P.7 mmHg Ao mean P.1 mmHg LV V1 mean: 75.4 cm/sec Ao V2 VTI: 42.2 cm LV V1 VTI: 21.6 cm AV (velocity ratio): 0.51 YAMIL(I,D): 2.0 cm2 YAMIL(V,D): 2.1 cm2 SV(LVOT): 85.4 ml PA V2 max: 106.8 cm/sec PA V2 mean: 71.8 cm/sec ECHO/Echo Complete Interpretation Summary The estimated ejection fraction is 50-55 %. Unable to assess diastolic dysfunction. The left atrium is mildly enlarged. Mild (1+) mitral valve insufficiency. Ordering Physician: Sean Ayala Referring Physician: IWONA AHUJA Performed By: Siri Chauhan RCS
[2023-04-27] MEDS: 0.9% Normal Saline (1000mL) 1,000 ML 75 ML IV (14:44)
[2023-04-27 15:09] LABS: Troponin-I HS 1199 pg/mL (3.0-78.0)
--- NOTE | 2023-04-27 15:30 | CASEMGMT ---
RN STANLEY Assessment: Face to Face with pt for initial transition planning/care coordination assessment. RN CM introduced self and role at [facility], pt voices understanding and consents to assessment. Pt is A&O x4 and answers all questions appropriately at this time. Pt sitting up in bed in no distress with dtr at bedside. Care providers, pharmacy, and demographics verified/updated. Admitting Dx: stroke s/p tnk PCP:Terry Specialists:nestor Sellers Preferred Pharmacy: [facility] Insurance: [employer] [facility] Prescription Benefit: yes LNOK: Vanessa Cruz, dtr; Mark Cruz, son Living Arrangements: Pt lives alone in a two story home with 1 step to enter. Pt reports he is I in ADL's and denies concerns at home. Transportation: Pt drives self and denies concerns with transportation. DME:mandy HHC/SNF:Pt denies hx of Pt states no concerns with going home at time of dc. Therapy evals are pending. Pt states no further concerns/needs. CM to follow. Advised pt to ask CM if any further question/concerns/needs arise, voices understanding. Pt Goal: Home Plan: TBD pending therapy evals
[2023-04-27] MEDS: Pantoprazole Sodium 40 MG Tablet PO (16:35)
[2023-04-27 16:40] LABS: Bedside Glucose 81 mg/dL (74-106)
--- NOTE | 2023-04-27 17:15 | CON.PCM.CA_ITS ---
Assessment & Plan Assessment/Plan (1) Elevated troponin I level: PLAN: No cardiac complaints. Echo shows no significant regional wall motion abnormalities. Troponin is already trending down. Okay to check another troponin tomorrow morning. No specific therapy required for this at this time. HPI Consult Data Date of Consult: 04/27/23 HPI Narrative Reason for Consultation: Elevated troponin HPI Narrative: TELLO BLANKENSHIP, is a 78 M who presents with a CVA. He received thrombolysis. Cardiology consult was requested as his initial high-sensitivity troponin was around 1500. Patient denies any cardiac complaints. His second high- sensitivity troponin is already trending down. FOR[facility]LY [facility] Medical History Arthritis Hypertension Leaky heart valve Home Medications hydrocodone-acetaminophen 5-325mg 5mg-325mg 1 tab PO Q6H PRN hip pain 04/27/23 [History Last Taken 04/27/23 06:30] metoprolol succinate 25 mg tablet,extended release 24 hr 25 mg PO DAILY heart blockage 04/27/23 [History Last Taken Unknown] simvastatin 10 mg tablet 10 mg PO QHS cholesterol 04/27/23 [History Last Taken Unknown] Allergy/AdvReac Type Severity Reaction Status Date / Time sacubitril [From Entresto] Allergy Mild cough Verified 04/27/23 12:06 valsartan [From Entresto] Allergy Mild cough Verified 04/27/23 12:06 Social History Smoking Status: Never smoker Physical Exam Const alert and oriented x3 HEENT normocephalic Eyes no scleral icterus Resp normal respiratory effort Cardio regular rate Psych mental status grossly normal Risk Stratification Risk Stratification Applicable: No Charges/Coding Visit Charges Inpatient E&M: 37089 Init Hosp L1 Objective Data Vital Signs: Vital Signs Temp Pulse Resp BP Pulse Ox O2 Del Method 97.4 F L 88 14 145/90 H 97 Room Air 04/27/23 12:48 04/27/23 17:00 04/27/23 17:00 04/27/23 17:00 04/27/23 17:00 04/27/23 17:00 Oxygen Delivery Method Room Air Weight: 203 lb 14.841 oz Body Mass Index (BMI) 30.1 Intake & Output: Intake and Output for Last 24 Hours 04/25/23 04/26/23 04/27/23 23:59 23:59 23:59 Intake Total 240 / 240 Output Total 350 / 350 Balance -110 / -110 Lab / Micro Data 04/27/23 12:10 04/27/23 12:10 Labs: Laboratory Results - last 24 hr 04/27/23 12:10: WBC 8.1, RBC 4.09 L, Hgb 12.5 L, Hct 41.1, MCV 100.5 H, MCH 30.6, MCHC 30.4 L, RDW Std Deviation 48.2 H, RDW Coeff of [place] 13.0, Plt Count 214, MPV 10.5, Immature Gran % (Auto) 0.700, Neut % (Auto) 69.0, Lymph % (Auto) 18.0 L, [place] % (Auto) 10.0, Eos % (Auto) 1.7, Baso % (Auto) 0.6, Absolute Neuts (auto) 5.6, Absolute Lymphs (auto) 1.46, Nucleated RBC % 0, PT 14.5, INR 1.1, APTT 30.3, Sodium 141, Potassium 4.3, Chloride 109 H, Carbon Dioxide 26.0, Anion Gap 6, BUN 29 H, Creatinine 0.89, Estim Creat Clear Calc 66.20, Est GFR (MDRD) Af Amer 105, Est GFR (MDRD) Non-Af 87, BUN/Creatinine Ratio 32.5 H, Glucose 95, Calcium 8.2 L, Magnesium 2.3, Troponin I High Sens 1505 H* 04/27/23 14:30: Troponin I High Sens 1199 H* 04/27/23 16:22: POC Glucose 81 Cardiology Labs/Tests 04/27/23 12:10: WBC 8.1, RBC 4.09 L, Hgb 12.5 L, Hct 41.1, MCV 100.5 H, MCH 30. 6, MCHC 30.4 L, Plt Count 214, MPV 10.5, Immature Gran % (Auto) 0.700, Neut % (Auto) 69.0, Lymph % (Auto) 18.0 L, [place] % (Auto) 10.0, Eos % (Auto) 1.7, Baso % (Auto) 0.6, Absolute Neuts (auto) 5.6, Nucleated RBC % 0, PT 14.5, INR 1.1, APTT 30.3, Sodium 141, Potassium 4.3, Chloride 109 H, Carbon Dioxide 26.0, Anion Gap 6, BUN 29 H, Creatinine 0.89, Est GFR (MDRD) Af Amer 105, Est GFR (MDRD) Non-Af 87, BUN/Creatinine Ratio 32.5 H, Glucose 95, Calcium 8.2 L, Magnesium 2.3 Rhythm: EKG: ECHO: Stress Test: Cardiac Cath: PCI: CT Surgery: Holter monitor: EPS: PPM: CXR: Chest CT Scan: Radiography Diagnostic Testing: Radiology Impression Head/Neck CTA 04/27/23 11:54 IMPRESSION: Minimal plaque at the origin of the right and left internal carotid arteries causing less than 50% narrowing. 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 N.B. : The above Results were Read Back by Ramesh Meehan MD to Dr David MD, and understanding confirmed on 04/27/2023 12:16:17 (ET). Electronically Signed: Ramesh Meehan MD at 12:17 EST , ADDENDUM: 04/27/23 1224 IMPRESSION: Minimal plaque at the origin of the right and left internal carotid arteries causing less than 50% narrowing. 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 N.B. : The above Results were Read Back by Ramesh Meehan MD to Dr David MD, and understanding confirmed on 04/27/2023 12:16:17 (ET). Electronically Signed: Ramesh Meehan MD at 12:17 EST , Brain CT 04/27/23 11:55 IMPRESSION: Chronic involutional changes of the brain. Questionable tiny old lacunar infarct in the head of the right caudate nucleus. N.B. : The above Results were Read Back by Ramesh Meehan MD to Isaisergio Hernandez and understanding confirmed on 04/27/2023 12:07:16 (ET). Electronically Signed: Ramesh Meehan MD at 12:08 EST , ADDENDUM: 04/27/23 1215 IMPRESSION: Chronic involutional changes of the brain. Questionable tiny old lacunar infarct in the head of the right caudate nucleus. N.B. : The above Results were Read Back by Ramesh Meehan MD to [facility] and understanding confirmed on 04/27/2023 12:07:16 (ET). Electronically Signed: Ramesh Meehan MD at 12:08 EST , Chest X-Ray 04/27/23 12:40 IMPRESSION: No acute abnormality is seen. Electronically Signed: Ramesh Meehan MD at 13:16 EST , Echocardiogram 04/27/23 13:51 Interpretation Summary The estimated ejection fraction is 50-55 %. Unable to assess diastolic dysfunction. The left atrium is mildly enlarged. Mild (1+) mitral valve insufficiency. Ordering Physician: Sean Ayala Referring Physician: IWONA AHUJA Performed By: Siri Chauhan RCS
--- NOTE | 2023-04-27 17:35 | EKG12_ITS ---
Test Reason : Blood Pressure : / mmHG Vent. Rate : 096 BPM Atrial Rate : 096 BPM P-R Int : 192 ms QRS Dur : 090 ms QT Int : 356 ms P-R-T Axes : 046 -08 075 degrees QTc Int : 449 ms Sinus rhythm with frequent Premature ventricular complexes Cannot rule out Anterior infarct , age undetermined Abnormal ECG Confirmed by SANDRO LEE, HARRIS ([id number]), fashion editor JESUS FIORE ([id number]) on 05/09/2023 12:54:21 PM Referred By: DAVIS Confirmed By:HARRIS JO MD
[2023-04-27] MEDS: Atorvastatin Calcium 40 MG Tablet PO (21:06)
[2023-04-27 21:25] LABS: Bedside Glucose 93 mg/dL (74-106)
[2023-04-27] MEDS: Acetaminophen 325 MG Tablet 650 MG PO (23:10)
[2023-04-28] VITALS (19 sets, daily range): BP systolic 130–165; BP diastolic 61–99; PULSE 82–113; RESP 12–20; TEMP 36.3–37.1; O2SAT 93–99; BMI 30.9
[2023-04-28] MEDS: 0.9% Saline Lock 10 ML Syringe IV ×2 (03:08→23:28)
[2023-04-28 03:16] LABS: Absolute Lymphocyte Count 1.39 X10^3/uL (0.83-4.51); Absolute Neutrophil Count 5.6 X10^3/uL (2.0-7.7); Basophil# 0.06 X10^3/uL; Basophil% 0.7 % (0-1); Eosinophil# 0.18 X10^3/uL; Eosinophils% 2.2 % (0-5); Hematocrit 41.2 % (40-54); Hemoglobin 12.7 g/dL (13.0-16.5); Lymphocyte # 1.39 X10^3/ul (0.83-4.51); Lymphocyte % 17.2 % (19-41); Mean Corp Hgb Conc 30.8 g/dL (32-36); Mean Corpuscular Hgb 30.7 pg (27.0-32.0); Mean Corpuscular Volume 99.5 fL (80-94); Mean Platelet Vol. 10.6 fl (6.2-12.0); Monocyte# 0.72 X10^3/uL; Monocyte% 8.9 % (0-10); NRBC Flagged by Analyzer 0 % (0-5); Neutrophil # 5.64 X10^3/uL (2.7-7.7); Neutrophil % 70.1 % (47-70); Platelet Count 199 K/mm3 (150-450); Red Blood Count 4.14 M/mm3 (4.6-6.2); White Blood Count 8.1 K/mm3 (4.4-11.0)
[2023-04-28 03:51] LABS: Anion Gap 5 (5-15); BUN 22 mg/dL (7-18); BUN/Creat Ratio 26.8 RATIO (10-20); Calcium,Total 8.3 mg/dL (8.5-10.1); Chloride 111 mmol/L (98-107); Cholesterol 121 mg/dL (200); Creatinine, Serum 0.82 mg/dL (0.70-1.30); EST Glomerular Filtration Rate 96 mL/min (>60); Est Glom Filt Rate - Afr Amer 116 mL/min (>60); Estimated Creatinine Clearance 71.85 ml/min; Glucose 104 mg/dL (74-106); High Density Lipoprotein 43 mg/dL; Potassium 4.1 mmol/L (3.5-5.1); Sodium Level 141 mmol/L (136-145); Thyroid Stim Hormone (TSH) 2.45 uIU/mL (0.358-3.74); Triglycerides 98 mg/dL; Troponin-I HS 1653 pg/mL (3.0-78.0); Very Low Density Lipoprotein 20 mg/dL (5-40)
--- NOTE | 2023-04-28 04:14 | NURSING ---
Pt c/o being unable to sleep and feeling uncomfortable. Pt denies chest pain at this time. Pt offered this RN to check w/ MD regarding a stronger pain medication option d/t his left arm and leg pain but he denied. Pt continuing to feel frustrated regarding not feeling well and not being able to sleep, emotional support given.
--- NOTE | 2023-04-28 09:03 | PCM.PN.HOSP ---
Reason for Visit Reason for Visit: Diagnoses Cerebral infarction, unspecified (04/27/23) Other specified abnormal findings of blood chemistry (04/27/23) Subjective Subjective Patient does not have any acute issues. Patient moving his extremities well. Chronic left hip arthritis and mild weakness at baseline. He still has mild left-sided facial droop. Objective Data Objective Data Vital Signs: Vital Signs Temp Pulse Resp BP Pulse Ox O2 Del Method 98.8 F 94 20 H 161/99 H 96 Room Air 04/28/23 07:00 04/28/23 08:00 04/28/23 08:00 04/28/23 08:00 04/28/23 08:00 04/28/23 08:00 Oxygen Delivery Method Room Air Weight: 209 lb 14.081 oz Body Mass Index (BMI) 30.9 Intake & Output: Intake and Output for Last 24 Hours 04/26/23 04/27/23 04/28/23 23:59 23:59 23:59 Intake Total 540 / 540 1000 / 1000 Output Total 750 / 1200 1200 / 1200 Balance -210 / -660 -200 / -200 Lab / Micro Data 04/28/23 03:05 04/28/23 03:05 Labs: Laboratory Results - last 24 hr 04/27/23 12:10: WBC 8.1, RBC 4.09 L, Hgb 12.5 L, Hct 41.1, MCV 100.5 H, MCH 30.6, MCHC 30.4 L, RDW Std Deviation 48.2 H, RDW Coeff of [place] 13.0, Plt Count 214, MPV 10.5, Immature Gran % (Auto) 0.700, Neut % (Auto) 69.0, Lymph % (Auto) 18.0 L, [place] % (Auto) 10.0, Eos % (Auto) 1.7, Baso % (Auto) 0.6, Absolute Neuts (auto) 5.6, Absolute Lymphs (auto) 1.46, Nucleated RBC % 0, PT 14.5, INR 1.1, APTT 30.3, Sodium 141, Potassium 4.3, Chloride 109 H, Carbon Dioxide 26.0, Anion Gap 6, BUN 29 H, Creatinine 0.89, Estim Creat Clear Calc 66.20, Est GFR (MDRD) Af Amer 105, Est GFR (MDRD) Non-Af 87, BUN/Creatinine Ratio 32.5 H, Glucose 95, Calcium 8.2 L, Magnesium 2.3, Troponin I High Sens 1505 H* 04/27/23 14:30: Troponin I High Sens 1199 H* 04/27/23 16:22: POC Glucose 81 04/27/23 21:00: POC Glucose 93 04/28/23 03:05: WBC 8.1, RBC 4.14 L, Hgb 12.7 L, Hct 41.2, MCV 99.5 H, MCH 30.7, MCHC 30.8 L, RDW Std Deviation 47.0 H, RDW Coeff of [place] 13.0, Plt Count 199, MPV 10.6, Immature Gran % (Auto) 0.900, Neut % (Auto) 70.1 H, Lymph % (Auto) 17.2 L, [place] % (Auto) 8.9, Eos % (Auto) 2.2, Baso % (Auto) 0.7, Absolute Neuts (auto) 5.6, Absolute Lymphs (auto) 1.39, Nucleated RBC % 0, Sodium 141, Potassium 4.1, Chloride 111 H, Carbon Dioxide 25.0, Anion Gap 5, BUN 22 H, Creatinine 0.82, Estim Creat Clear Calc 71.85, Est GFR (MDRD) Af Amer 116, Est GFR (MDRD) Non-Af 96, BUN/Creatinine Ratio 26.8 H, Glucose 104, Calcium 8.3 L, Troponin I High Sens 1653 H*, Triglycerides 98, Cholesterol 121, LDL Cholesterol 58, VLDL Cholesterol 20, HDL Cholesterol 43, TSH 2.45 Radiography Diagnostic Testing: Radiology Impression Head/Neck CTA 04/27/23 11:54 IMPRESSION: Minimal plaque at the origin of the right and left internal carotid arteries causing less than 50% narrowing. 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 N.B. : The above Results were Read Back by Ramesh Meehan MD to Dr David MD, and understanding confirmed on 04/27/2023 12:16:17 (ET). Electronically Signed: Ramesh Meehan MD at 12:17 EST , ADDENDUM: 04/27/23 1224 IMPRESSION: Minimal plaque at the origin of the right and left internal carotid arteries causing less than 50% narrowing. 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 N.B. : The above Results were Read Back by Ramesh Meehan MD to Dr David MD, and understanding confirmed on 04/27/2023 12:16:17 (ET). Electronically Signed: Ramesh Meehan MD at 12:17 EST , Brain CT 04/27/23 11:55 IMPRESSION: Chronic involutional changes of the brain. Questionable tiny old lacunar infarct in the head of the right caudate nucleus. N.B. : The above Results were Read Back by Ramesh Meehan MD to Isai Hernnadez and understanding confirmed on 04/27/2023 12:07:16 (ET). Electronically Signed: Ramesh Meehan MD at 12:08 EST , ADDENDUM: 04/27/23 1215 IMPRESSION: Chronic involutional changes of the brain. Questionable tiny old lacunar infarct in the head of the right caudate nucleus. N.B. : The above Results were Read Back by Ramesh Meehan MD to Isai Hernandez and understanding confirmed on 04/27/2023 12:07:16 (ET). Electronically Signed: Ramesh Meehan MD at 12:08 EST , Chest X-Ray 04/27/23 12:40 IMPRESSION: No acute abnormality is seen. Electronically Signed: Ramesh Meehan MD at 13:16 EST , Echocardiogram 04/27/23 13:51 Interpretation Summary The estimated ejection fraction is 50-55 %. Unable to assess diastolic dysfunction. The left atrium is mildly enlarged. Mild (1+) mitral valve insufficiency. Ordering Physician: Sean Ayala Referring Physician: IWONA AHUJA Performed By: Siri Chauhan RCS Physical Exam Narrative Seen and examined. General: Alert, Oriented x3, Cooperative HEENT: Atraumatic, PERRLA, EOMI, Normocephalic. No diplopia/hemianopia/quadrantanopsia or anopia Oral: Oral mucosa moist. No Gingival or Mucosal Lesions/ Ulcerations Neck: Supple, No JVD, Negative Carotid Bruits Lungs: Air entry diminished in bilateral lung bases. No crepitation/rhonchi Cardiovascular: Regular rate, Regular Rhythm, Normal S1, Normal S2, ejection systolic murmur over right second ICS. Holosystolic over cardiac apex. Abdomen: Bowel Sounds Present, Soft, Non Tender, Non-Distended : No renal angle tenderness. No suprapubic tenderness. Extremities: No edema, Capillary Refill Less than 3 Seconds Skin: No rashes, No breakdown Musculoskeletal: No Tenderness to Palpation of Joints or Extremities. ROM restricted over left hip due to arthritis. Neurological: Mild left facial droop, slight improvement from time of admission. Rest, 2-12 cranial nerves intact. DTR 2+/4. Improvement in weakness. Coordination/finger-nose test negative. Mild weakness on left lower extremity at baseline due to arthritis. Improvement Psych/Mental Status: Normal Affect, Appropriate. Assessment & Plan Assessment/Plan (1) Acute ischemic stroke: (2) Elevated troponin I level: PLAN: Plan 1. Acute ischemic stroke with left-sided weakness status post tenecteplase: Patient is being admitted in ICU after tenecteplase given in ED. CTA head and neck shows minimal plaque at origin of right and left ICA less than 50% stenosis. High-grade stenosis of right ECA. Permissive hypertension as per protocol after tenecteplase, BP 180/105 or less. The patient is on post tenecteplase order set with NIH monitoring as per protocol. 2D echo with bubble contrast study ordered. No antiplatelet or anticoagulant for first 24 hours till repeat imaging shows no bleed. Plan for MRI brain after 24 hours of tenecteplase. 04/28: Fasting profile shows LDL 58, HDL 43, triglyceride normal. TSH normal. A1c 5.7 suggestive of prediabetes. Bubble contrast read negative for eyyut-eu-gosp interatrial shunt. EF 55%. Mild MR. Mild chronic involutional and white matter changes. MRI done shows mild acute right parietal infarct. SOC consult ordered. 2. Elevated troponins with history of leaky heart valve probably mitral regurgitation and aortic stenosis: monitor and storage bin tender shows frequent PVC pulses bigeminy. No significant ST-T changes in the EKG. As per history patient might have chronic stable angina but denies history of MT or cardiac stent. First troponin high 1505. Cycle cardiac enzymes. Floatman consulted. Patient follows with outside retail field representative Dr. Sellers. 04/28: Discussed with the retail field representative. Serial monitoring of troponins shows decreasing trend, last 1 1371. Patient does not have any specific cardiac complaint but possible chronic stable angina as mentioned above. It is advised that outpatient nuclear stress test might be beneficial in this circumstance. 3. Hypertension: As mentioned above. VT prophylaxis: Bilateral SCDs. Living will/advanced directive/end of life care: Patient does not have living will or advanced directive. Patient does not have designated power of compounder helper for health. Her daughter, Mrs. Mendez present in the room is next of kin. After discussion of benefits/risks procedures involved with full code, DNR CC arrest and DNR CC, the patient and her daughter opted for full code. Patient does want artificial life support including intubation, tube feed, ventilator and/chest compression, central venous catheter, vasopressor and DC shock if needed Clinical Impression(s) from Imaging Studies Head/Neck CTA 04/27/23 11:54 IMPRESSION: Minimal plaque at the origin of the right and left internal carotid arteries causing less than 50% narrowing. 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 Brain CT 04/27/23 11:55 IMPRESSION: Chronic involutional changes of the brain. Questionable tiny old lacunar infarct in the head of the right caudate nucleus. Chest X-Ray 04/27/23 12:40 IMPRESSION: No acute abnormality is seen. Electronically Signed: Ramesh Meehan MD at 13:16 EST , Charges/Coding Visit Charges Inpatient E&M: 59759 Subs Hosp L3
--- NOTE | 2023-04-28 09:08 | PN.CC_ITS ---
Assessment & Plan Assessment/Plan (1) Acute ischemic stroke: PLAN: Plan Assessment and plan * Acute ischemic stroke with left-sided weakness status post tPA. He has been stable overnight, MRI will be done today,. PT/OT consulted. He is tolerating diet. He will be out of 24 hr window at noon today afterwhich he can be downgraded to PCU level of care. Cont statin * Elevated troponins. trops cont to increase. Pt is asymptomatic. No EKG changes or wall motion abnormalities on ECHO.Cardio on board * HTN: Antihypertensive can be resumed after 24 hours of tpa which is going to be around noon today * DVT ppx: SCDs, can start chemical DVT ppx after 24 hours of tpa Subjective Subjective Stable overnight. Denies chest pain. He reports he didn't sleep very well last night. Objective Data Objective Data Vital Signs: Vital Signs Temp Pulse Resp BP Pulse Ox O2 Del Method 37.1 C 94 20 H 161/99 H 96 Room Air 04/28/23 07:00 04/28/23 08:00 04/28/23 08:00 04/28/23 08:00 04/28/23 08:00 04/28/23 08:00 Oxygen Delivery Method Room Air Weight: 95.2 kg Body Mass Index (BMI) 30.9 Intake & Output: Intake and Output for Last 24 Hours 04/26/23 04/27/23 04/28/23 23:59 23:59 23:59 Intake Total 540 / 540 1000 / 1000 Output Total 750 / 1200 1200 / 1200 Balance -210 / -660 -200 / -200 Lab / Micro Data 04/28/23 03:05 04/28/23 03:05 Labs: Laboratory Results - last 24 hr 04/27/23 12:10: WBC 8.1, RBC 4.09 L, Hgb 12.5 L, Hct 41.1, MCV 100.5 H, MCH 30.6, MCHC 30.4 L, RDW Std Deviation 48.2 H, RDW Coeff of [place] 13.0, Plt Count 214, MPV 10.5, Immature Gran % (Auto) 0.700, Neut % (Auto) 69.0, Lymph % (Auto) 18.0 L, [place] % (Auto) 10.0, Eos % (Auto) 1.7, Baso % (Auto) 0.6, Absolute Neuts (auto) 5.6, Absolute Lymphs (auto) 1.46, Nucleated RBC % 0, PT 14.5, INR 1.1, APTT 30.3, Sodium 141, Potassium 4.3, Chloride 109 H, Carbon Dioxide 26.0, Anion Gap 6, BUN 29 H, Creatinine 0.89, Estim Creat Clear Calc 66.20, Est GFR (MDRD) Af Amer 105, Est GFR (MDRD) Non-Af 87, BUN/Creatinine Ratio 32.5 H, Glucose 95, Calcium 8.2 L, Magnesium 2.3, Troponin I High Sens 1505 H* 04/27/23 14:30: Troponin I High Sens 1199 H* 04/27/23 16:22: POC Glucose 81 04/27/23 21:00: POC Glucose 93 04/28/23 03:05: WBC 8.1, RBC 4.14 L, Hgb 12.7 L, Hct 41.2, MCV 99.5 H, MCH 30.7, MCHC 30.8 L, RDW Std Deviation 47.0 H, RDW Coeff of [place] 13.0, Plt Count 199, MPV 10.6, Immature Gran % (Auto) 0.900, Neut % (Auto) 70.1 H, Lymph % (Auto) 17.2 L, [place] % (Auto) 8.9, Eos % (Auto) 2.2, Baso % (Auto) 0.7, Absolute Neuts (auto) 5.6, Absolute Lymphs (auto) 1.39, Nucleated RBC % 0, Sodium 141, Potassium 4.1, Chloride 111 H, Carbon Dioxide 25.0, Anion Gap 5, BUN 22 H, Creatinine 0.82, Estim Creat Clear Calc 71.85, Est GFR (MDRD) Af Amer 116, Est GFR (MDRD) Non-Af 96, BUN/Creatinine Ratio 26.8 H, Glucose 104, Calcium 8.3 L, Troponin I High Sens 1653 H*, Triglycerides 98, Cholesterol 121, LDL Cholesterol 58, VLDL Cholesterol 20, HDL Cholesterol 43, TSH 2.45 Radiography Diagnostic Testing: Radiology Impression Head/Neck CTA 04/27/23 11:54 IMPRESSION: Minimal plaque at the origin of the right and left internal carotid arteries causing less than 50% narrowing. 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 N.B. : The above Results were Read Back by Ramesh Meehan MD to Dr David MD, and understanding confirmed on 04/27/2023 12:16:17 (ET). Electronically Signed: Ramesh Meehan MD at 12:17 EST , ADDENDUM: 04/27/23 1224 IMPRESSION: Minimal plaque at the origin of the right and left internal carotid arteries causing less than 50% narrowing. 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 N.B. : The above Results were Read Back by Ramesh Meehan MD to Dr David MD, and understanding confirmed on 04/27/2023 12:16:17 (ET). Electronically Signed: Ramesh Meehan MD at 12:17 EST , Brain CT 04/27/23 11:55 IMPRESSION: Chronic involutional changes of the brain. Questionable tiny old lacunar infarct in the head of the right caudate nucleus. N.B. : The above Results were Read Back by Ramesh Meehan MD to Isaisergio Hernandez and understanding confirmed on 04/27/2023 12:07:16 (ET). Electronically Signed: Ramesh Meehan MD at 12:08 EST , ADDENDUM: 04/27/23 1215 IMPRESSION: Chronic involutional changes of the brain. Questionable tiny old lacunar infarct in the head of the right caudate nucleus. N.B. : The above Results were Read Back by Ramesh Meehan MD to Isai Hernandez and understanding confirmed on 04/27/2023 12:07:16 (ET). Electronically Signed: Ramesh Meehan MD at 12:08 EST , Chest X-Ray 04/27/23 12:40 IMPRESSION: No acute abnormality is seen. Electronically Signed: Ramesh Meehan MD at 13:16 EST , Echocardiogram 04/27/23 13:51 Interpretation Summary The estimated ejection fraction is 50-55 %. Unable to assess diastolic dysfunction. The left atrium is mildly enlarged. Mild (1+) mitral valve insufficiency. Ordering Physician: Sean Ayala Referring Physician: IWONA AHUJA Performed By: Siri Chauhan RCS Physical Exam Narrative General alert oriented in no acute distress HEENT. Normocephalic atraumatic, pupils equal and reactive Respiratory reduced air entry bilaterally, mild end expiratory wheeze, no crackles Cardiac S1-S2, regular rate and rhythm GI abdomen soft and nontender MSK no lower extremity edema Skin no rashes Neuro L sided upper and lower extremity weakness reduced fine touch sensation on L Charges/Coding Visit Charges Inpatient E&M: 58013 Subs Hosp L2
[2023-04-28] MEDS: Pantoprazole Sodium 40 MG Tablet PO (09:40)
[2023-04-28 10:12] LABS: Hemoglobin A1c 5.7 % (3.8-5.6)
[2023-04-28 10:27] LABS: Troponin-I HS 1371 pg/mL (3.0-78.0)
--- NOTE | 2023-04-28 11:30 | MRI_ITS ---
ACR Level 3 findings have been noted. An addendum which confirms receipt of the report will follow. HISTORY: CVA -- MRI 24 hours after IV thrombolytic administration. TECHNIQUE: Multiplanar and multisequence MR images of the brain were obtained without contrast. 288 images. COMPARISON: CT prior day. FINDINGS: BRAIN PARENCHYMA: Mild zone of restricted diffusion in the right parietal cortex with mild associated cytotoxic edema. Mild chronic periventricular white matter changes. No acute intracranial hemorrhage identified. CSF SPACES: Mild generalized volume loss. No significant midline shift or other mass effect.No extra-axial fluid collection. VASCULAR SYSTEM: Major intracranial flow voids are maintained. PARANASAL SINUSES AND MASTOID AIR CELLS: Small left maxillary sinus mucous retention cyst. ORBITS: Symmetric contents. MRI/Brain without Contrast IMPRESSION: Mild acute right parietal infarct. Mild chronic involutional and white matter changes. Electronically Signed: Berna Aldana MD at 12:17 EST ,
[2023-04-28 17:17] LABS: Bedside Glucose 192 mg/dL (74-106)
[2023-04-28] MEDS: Insulin Lispro 100 UNIT/ML INSULN.PEN SC (17:19)
[2023-04-28] MEDS: Atorvastatin Calcium 40 MG Tablet PO (21:29)
[2023-04-28] MEDS: MELATONIN 10 MG TABLET PO (21:30)
--- NOTE | 2023-04-28 23:15 | NURSING ---
Notified Dr Castillo of frequent pvc's. More than 40 per minute in bigeminal to every fourth beat. Order received for mag 1 gm x1. reviewed previous magnesium level with physician sates it will help calm pt's ectopy
[2023-04-28] MEDS: Magnesium Sulfate 1 GM in Dextrose 5%-Water (100mL Bag) 100 ML IV (23:27)
[2023-04-28 23:44] LABS: Bedside Glucose 112 mg/dL (74-106)
[2023-04-29 00:02] VITALS: BMI 30.9
[2023-04-29 01:00] VITALS: BP 143/66; PULSE 54; RESP 16; TEMP 36.8; O2SAT 94
[2023-04-29 05:00] VITALS: BP 124/53; PULSE 98; RESP 16; TEMP 36.6; O2SAT 95
[2023-04-29 06:00] VITALS: BMI 30.2
[2023-04-29 06:58] LABS: Bedside Glucose 137 mg/dL (74-106)
[2023-04-29 09:51] VITALS: BP 124/49; PULSE 69; RESP 16; TEMP 36.7; O2SAT 96
[2023-04-29] MEDS: Pantoprazole Sodium 40 MG Tablet PO (09:57)
--- NOTE | 2023-04-29 10:15 | DCINST_ITS ---
Discharge Instructions Diet Discharge Diet: No restrictions, Low fat / Low cholesterol and 2000 mg Sodium Diet Activity Discharge Activity: Return to Normal Activity Weight Bearing Status: Weight bearing as tolerated Dressing / Incision Call your doctor if you observe: Fever of 101 or Higher, Coldness, Increased Pain, Numbness or Tingling, Change in Color, Inability to urinate, Inability to have a bowel movement, Shortness of breath, Dizziness, Fainting spells, Swelling in the ankles, Chest pain, Prolonged hiccupping, Increased palpitations (irregular heartbeat) and Calf discomfort Follow Up Care When: IN 2 WEEKS Test Results: Test results from this visit will be discussed in further detail at your follow- up appointment, if applicable. Discharge Plan Admission Admit Date/Time: 04/27/23 12:26 Primary Reason for Your Visit: acute right MCA infarct Attending Provider: Sean Ayala Primary Care Provider: Sebastián Stewart Consulting Providers: Donnell Guevara; Meek Coombs; Rodney Brown; Jose Peña; Claude Richardson; Rosa Hunt NP; Megan Chua Instructions Additional Instructions / Restrictions: Discharge on 30-day event monitor. Follow-up in cardiology clinic if any abnormal heart rhythm. Discharge Orders/Prescriptions Prescriptions: New aspirin 81 mg Tablet,Delayed Release (Dr/Ec) 81 mg PO BREAKFAST Qty: 30 3RF atorvastatin 40 mg Tablet 40 mg PO QHS Qty: 30 2RF polyethylene glycol 3350 17 gram Powder In Packet 17 g PO DAILY PRN (Reason: CONSTIPATION) Qty: 0 0RF Rx Instructions: OTC sennosides-docusate sodium [Stool Softener-Stimulant Laxat] 8.6-50 mg Tablet 2 tab PO BID PRN (Reason: Constipation) Qty: 0 0RF Rx Instructions: otc clopidogrel [Plavix] 75 mg tablet 75 mg PO DAILY Qty: 30 2RF Rx Instructions: Plavix total for 90 days Continued hydrocodone-acetaminophen 5-325 mg tablet 1 tab PO Q6H PRN (Reason: hip pain) Patient Comments: TAKE 1 TABLET BY MOUTH EVERY 6 HOURS FOR 7 DAY(S) NEEDED FOR PAIN metoprolol succinate 25 mg tablet extended release 24 hr 25 mg PO DAILY Discontinued simvastatin 10 mg tablet 10 mg PO QHS Other Ambulatory Orders: 30 Day Event Recorder Preventi (Urgent) Timeframe: 1 Day Facility: [facility] - Location: Cardiovascular Services Ordered By: Dr. Sean Ayala Referrals / Follow Up: Richard Nolasco MD [Non-Staff -Ordering Privileges] - Within 2 Weeks (for stroke S/P TNK) Sebastián Stewart MD [Primary Care Provider] - Disposition Disposition (needs filled in before D/C Order can be placed): Home, Self Care
[2023-04-29 11:01] VITALS: BP 129/51; PULSE 86; RESP 16; TEMP 36.6; O2SAT 96
--- NOTE | 2023-04-29 11:03 | PCM.DC.SUM ---
Providers Date of Admission: 04/27/23 Date of Discharge: 04/29/23 Primary Care Physician: Dr. Sebastián Stewart MD Consultations 04/27/23 12:14 Consult: Animal Assisted Therapist / Pulmonary Medicine Routine Consulting Provider: Pulmonary Medicine karl LisaAuburn Reason for Consult: stroke for thrombolytic administration EMERGENT Consult: Yes MD Notified: Yes Date Notified: 04/27/23 Time Notified: 12:14 Method of Notification: Verbal Comments:: Consult may be done in ED or ICU 04/27/23 14:06 Consult: Cardiology Routine Consulting Provider: Megan Chau Reason for Consult: Elevated trops EMERGENT Consult: No MD Notified: Yes Date Notified: 04/27/23 Time Notified: 13:29 Method of Notification: Text Consult: Animal Assisted Therapist / Pulmonary Medicine Routine Consulting Provider: Pulmonary Medicine karl Larsen Reason for Consult: stroke for thrombolytic EMERGENT Consult: Yes MD Notified: Yes Date Notified: 04/27/23 Time Notified: 12:28 Method of Notification: Text Reason For Visit: STROKE S/P TNK Diagnosis Discharge Diagnosis (1) Acute ischemic stroke: Status: Acute Code(s): I63.9 - Cerebral infarction, unspecified (2) Elevated troponin I level: Status: Acute Code(s): R79.89 - Other specified abnormal findings of blood chemistry Plan 1. Acute ischemic stroke with left-sided weakness status post tenecteplase: Patient is being admitted in ICU after tenecteplase given in ED. CTA head and neck shows minimal plaque at origin of right and left ICA less than 50% stenosis. High-grade stenosis of right ECA. Permissive hypertension as per protocol after tenecteplase, BP 180/105 or less. The patient is on post tenecteplase order set with NIH monitoring as per protocol. 2D echo with bubble contrast study ordered. No antiplatelet or anticoagulant for first 24 hours till repeat imaging shows no bleed. Plan for MRI brain after 24 hours of tenecteplase. 04/28: Fasting profile shows LDL 58, HDL 43, triglyceride normal. TSH normal. A1c 5.7 suggestive of prediabetes. Bubble contrast read negative for [id number] interatrial shunt. EF 55%. Mild MR. Mild chronic involutional and white matter changes. MRI done shows mild acute right parietal infarct. SOC consult ordered. 04/29: Discussed with SOC advanced manufacturing consultant yesterday night. Patient prescribed aspirin 81 mg daily and Plavix 75 mg daily, DAPT for 90 days and then baby aspirin indefinitely. High intensity atorvastatin indefinitely. Follow-up neurologist in 2 weeks. Patient discharged on 30-day event monitor follow-up in cardiology clinic for abnormal rhythm 2. Elevated troponins with history of leaky heart valve probably mitral regurgitation and aortic stenosis: cardiac monitor shows frequent PVC pulses bigeminy. No significant ST-T changes in the EKG. As per history patient might have chronic stable angina but denies history of GA or cardiac stent. First troponin high 1505. Cycle cardiac enzymes. Polisher And Sander consulted. Patient follows with outside high density finishing operator Dr. Sellers. 04/28: Discussed with the high density finishing operator. Serial monitoring of troponins shows decreasing trend, last 1371. Patient does not have any specific cardiac complaint but possible chronic stable angina as mentioned above. It is advised that outpatient nuclear stress test might be beneficial in this circumstance. 04/29: Advised outpatient nuclear stress test. Follow-up in cardiology clinic in 2 weeks. 3. Hypertension: As mentioned above. Blood pressure is controlled. Prescription given for amlodipine 2.5 mg daily. If SBP more than 140 BG persistently, increase to 5 mg daily in consultation with PCP. VT prophylaxis: Bilateral SCDs. Discharge medication reconciliation done. Discharge follow-up instructions completed. Discharge process discussed with the patient and all questions were answered to patient's satisfaction. Follow with PCP in 1 to 2 weeks Total time spent, exact 35 minutes on discharge meds reconciliation, examination, coordination of care with nurses and ancillary staff, review of imaging and blood test and discussion with the patient on follow-up instructions. Living will/advanced directive/end of life care: Patient does not have living will or advanced directive. Patient does not have designated power of commonwealth attorney for health. Her daughter, Mrs. Mendez present in the room is next of kin. After discussion of benefits/risks procedures involved with full code, DNR CC arrest and DNR CC, the patient and her daughter opted for full code. Patient does want artificial life support including intubation, tube feed, ventilator and/chest compression, central venous catheter, vasopressor and DC shock if needed Clinical Impression(s) from Imaging Studies Head/Neck CTA 04/27/23 11:54 IMPRESSION: Minimal plaque at the origin of the right and left internal carotid arteries causing less than 50% narrowing. 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 Brain CT 04/27/23 11:55 IMPRESSION: Chronic involutional changes of the brain. Questionable tiny old lacunar infarct in the head of the right caudate nucleus. Chest X-Ray 04/27/23 12:40 IMPRESSION: No acute abnormality is seen. Electronically Signed: Ramesh Meehan MD at 13:16 EST , Medications at Discharge Home Medications hydrocodone-acetaminophen 5-325mg 5mg-325mg 1 tab PO Q6H PRN hip pain 04/27/23 metoprolol succinate 25 mg tablet,extended release 24 hr 25 mg PO DAILY heart blockage 04/27/23 amlodipine 5 mg tablet 2.5 mg (1/2 x 5 mg) PO DAILY #30 tabs 04/29/23 aspirin 81 mg tablet,delayed release 81 mg PO BREAKFAST #30 tabs 04/29/23 atorvastatin 40 mg tablet 40 mg PO QHS #30 tabs 04/29/23 clopidogrel 75 mg tablet (Plavix) 75 mg PO DAILY #30 tabs 04/29/23 polyethylene glycol 3350 17 gram oral powder packet 17 g PO DAILY PRN CONSTIPATION #0 ea 04/29/23 sennosides 8.6 mg-docusate sodium 50 mg tablet (Stool Softener-Stimulant Laxative) 2 tab PO BID PRN Constipation #0 tabs 04/29/23 Physical Exam Narrative Seen and examined on the day of discharge. Seen and examined. Seen by SOC neurologist yesterday evening. No acute complaint. Physical exam General: Alert, Oriented x3, Cooperative HEENT: Atraumatic, PERRLA, EOMI, Normocephalic. No diplopia/hemianopia/quadrantanopsia or anopia Oral: Oral mucosa moist. No Gingival or Mucosal Lesions/ Ulcerations Neck: Supple, No JVD, Negative Carotid Bruits Lungs: Air entry diminished in bilateral lung bases. No crepitation/rhonchi Cardiovascular: Regular rate, Regular Rhythm, Normal S1, Normal S2, ejection systolic murmur over right second ICS. Holosystolic over cardiac apex. Abdomen: Bowel Sounds Present, Soft, Non Tender, Non-Distended : No renal angle tenderness. No suprapubic tenderness. Extremities: No edema, Capillary Refill Less than 3 Seconds Skin: No rashes, No breakdown Musculoskeletal: No Tenderness to Palpation of Joints or Extremities. ROM restricted over left hip due to arthritis. Neurological: Mild left facial droop, improvement from time of admission. Rest, 2-12 cranial nerves intact. DTR 2+/4. Improvement in weakness. Coordination/finger-nose test negative. Mild weakness on left lower extremity at baseline due to arthritis. Improvement Psych/Mental Status: Normal Affect, Appropriate. Weight / BMI Weight Weight: 204 lb 12.951 oz Body Mass Index (BMI) 30.2 ABG / Lab / Microbiology Data 04/28/23 03:05 04/28/23 03:05 Laboratory: Laboratory Results - last 24 hr 04/28/23 16:45: POC Glucose 192 H 04/28/23 21:32: POC Glucose 112 H 04/29/23 06:33: POC Glucose 137 H Radiography Diagnostic Testing: Radiology Impression Brain MRI 04/28/23 11:30 IMPRESSION: Mild acute right parietal infarct. Mild chronic involutional and white matter changes. Electronically Signed: Berna Aldana MD at 12:17 EST , ADDENDUM: 04/28/23 1231 IMPRESSION: Mild acute right parietal infarct. Mild chronic involutional and white matter changes. N.B. : Lukas Frank RN, confirmed on 04/28/2023 12:24:22 (ET) that the healthcare facility has received the radiology report. Electronically Signed: Berna Aldana MD at 12:17 EST , D/C Instructions Discharge Diet: No restrictions, Low fat / Low cholesterol and 2000 mg Sodium Diet Weight Bearing Status: Weight bearing as tolerated Call your doctor if you observe: Fever of 101 or Higher, Coldness, Increased Pain, Numbness or Tingling, Change in Color, Inability to urinate, Inability to have a bowel movement, Shortness of breath, Dizziness, Fainting spells, Swelling in the ankles, Chest pain, Prolonged hiccupping, Increased palpitations (irregular heartbeat) and Calf discomfort When: IN 2 WEEKS Meaningful Use Info Meaningful Use Diagnoses (Choose all that apply): Ischemic CVA CVA Therapy Assessed for PT,OT and/or ST?: Yes Ischemic Stroke Antithrombotic order at d/c?: Yes Dx of Atrial fib/flutter?: No Statins at discharge?: Yes Primary Dx Acute Ischemic CVA?: Yes Discharge Plan Admission Admit Date/Time: 04/27/23 12:26 Primary Reason for Your Visit: acute right MCA infarct Attending Provider: Sean Ayala Primary Care Provider: Sebastián Stewart Consulting Providers: Donnell Guevara; Meek Coombs; Rodney Brown; Jose Peña; Claude Richardson; Rosa Hunt NP; Megan Chau Instructions Additional Instructions / Restrictions: Discharge on 30-day event monitor. Follow-up in cardiology clinic if any abnormal heart rhythm. Discharge Orders/Prescriptions Prescriptions: New aspirin 81 mg Tablet,Delayed Release (Dr/Ec) 81 mg PO BREAKFAST Qty: 30 3RF atorvastatin 40 mg Tablet 40 mg PO QHS Qty: 30 2RF polyethylene glycol 3350 17 gram Powder In Packet 17 g PO DAILY PRN (Reason: CONSTIPATION) Qty: 0 0RF Rx Instructions: OTC sennosides-docusate sodium [Stool Softener-Stimulant Laxat] 8.6-50 mg Tablet 2 tab PO BID PRN (Reason: Constipation) Qty: 0 0RF Rx Instructions: otc clopidogrel [Plavix] 75 mg tablet 75 mg PO DAILY Qty: 30 2RF Rx Instructions: Plavix total for 90 days amlodipine 5 mg tablet 2.5 mg PO DAILY Qty: 30 2RF Rx Instructions: Increase to 5 mg if persistently systolic blood pressure more than 140 mmHg Continued hydrocodone-acetaminophen 5-325 mg tablet 1 tab PO Q6H PRN (Reason: hip pain) Patient Comments: TAKE 1 TABLET BY MOUTH EVERY 6 HOURS FOR 7 DAY(S) NEEDED FOR PAIN metoprolol succinate 25 mg tablet extended release 24 hr 25 mg PO DAILY Discontinued simvastatin 10 mg tablet 10 mg PO QHS Other Ambulatory Orders: 30 Day Event Recorder Preventi (Urgent) Timeframe: 1 Day Facility: [facility] - Location: Cardiovascular Services Ordered By: Dr. Sean Ayala Referrals / Follow Up: Richard Nolasco MD [Non-Staff -Ordering Privileges] - Within 2 Weeks (for stroke S/P TNK) Sebastián Stewart MD [Primary Care Provider] - Gisell Ryder PA [Med Staff - Adv Practice Prof] - Within 2 Weeks (For outpatient nuclear stress test follow-up for elevated troponin .) Disposition Disposition (needs filled in before D/C Order can be placed): Home, Self Care Charges/Coding Visit Charges Inpatient E&M: 52668 Disch Hosp >30min
[2023-04-29] MEDS: Aspirin E.C. 81 MG Tablet PO (11:14)
--- NOTE | 2023-04-29 13:26 | PCM.PN.CARD ---
Subjective Subjective Doing well. Denies any cardiac complaints. Objective Data Vital Signs: Vital Signs Temp Pulse Resp BP Pulse Ox O2 Del Method 98.0 F 69 16 124/49 H 96 Room Air 04/29/23 09:51 04/29/23 09:51 04/29/23 09:51 04/29/23 09:51 04/29/23 09:51 04/29/23 09:51 Oxygen Delivery Method Room Air Weight: 204 lb 12.951 oz Body Mass Index (BMI) 30.2 Intake & Output: Intake and Output for Last 24 Hours 04/27/23 04/28/23 04/29/23 23:59 23:59 23:59 Intake Total 540 / 540 1120 / 1360 542 / 542 Output Total 750 / 1200 1200 / 2150 1150 / 1150 Balance -210 / -660 -80 / -790 -608 / -608 Lab / Micro Data 04/28/23 03:05 04/28/23 03:05 Labs: Laboratory Results - last 24 hr 04/28/23 16:45: POC Glucose 192 H 04/28/23 21:32: POC Glucose 112 H 04/29/23 06:33: POC Glucose 137 H Cardiology Labs/Tests Rhythm: EKG: ECHO: Stress Test: Cardiac Cath: PCI: CT Surgery: Holter monitor: EPS: PPM: CXR: Chest CT Scan: Assessment & Plan Assessment/Plan (1) Elevated troponin I level: PLAN: No cardiac complaints. Echo shows no significant regional wall motion abnormalities. Troponin is already trending down. No specific therapy required for this at this time. Patient follows with Dr. Sellers. He was advised to follow-up with his sow farm barn technician as an outpatient.
== END 2023-04-29 14:23 | disposition home or self-care (01) | DRG 62 ==
LOC: ED 12:30 → ICU 12:49 → PCU 04-28 16:10
PROVIDERS: Internal Medicine; Admitting Provider Internal Medicine; Emergency Provider Emergency Medicine; PCP Family Medicine; Visit Provider Internal Medicine
DX: I63.511 Cerebral infarction due to unspecified occlusion or stenosis of right middle cerebral artery (principal); G81.94 Hemiplegia, unspecified affecting left nondominant side; I08.0 Rheumatic disorders of both mitral and aortic valves; I10 Essential (primary) hypertension; I65.21 Occlusion and stenosis of right carotid artery; E78.00 Pure hypercholesterolemia, unspecified; M16.12 Unilateral primary osteoarthritis, left hip; R77.8 Other specified abnormalities of plasma proteins; R29.705 NIHSS score 5; R47.81 Slurred speech; I20.89 Other forms of angina pectoris
CPT/HCPCS: 51702; 70450; 70496; 70498; 70551; 71045; 80048; 80061; 82962; 83036; 83735; 84443; 84484; 85025; 85610; 85730; 92610; 93005; 93306; 94668; 97161; 97165; 99285; J3101; J7030; Q9967; A4216

== ENCOUNTER → 2023-05-14 | Outpatient (CLI) | payer MEDICARE, SELFPAY ==
[2023-05-14 14:36] LABS: Absolute Lymphocyte Count 1.28 X10^3/uL (0.83-4.51); Absolute Neutrophil Count 10.8 X10^3/uL (2.0-7.7); Basophil# 0.08 X10^3/uL; Basophil% 0.6 % (0-1); Eosinophil# 0.02 X10^3/uL; Eosinophils% 0.2 % (0-5); Hematocrit 42.6 % (40-54); Lymphocyte # 1.28 X10^3/ul (0.83-4.51); Lymphocyte % 9.9 % (19-41); Mean Corp Hgb Conc 30.5 g/dL (32-36); Mean Corpuscular Hgb 30.3 pg (27.0-32.0); Mean Corpuscular Volume 99.3 fL (80-94); Mean Platelet Vol. 9.7 fl (6.2-12.0); Monocyte# 0.55 X10^3/uL; Monocyte% 4.3 % (0-10); NRBC Flagged by Analyzer 0 % (0-5); Neutrophil # 10.75 X10^3/uL (2.7-7.7); Neutrophil % 83.4 % (47-70); Platelet Count 351 K/mm3 (150-450); RBC Distribution Width CV 13.6 % (11.6-14.6); RBC Distribution Width SD 48.9 fl (35.1-43.9); Red Blood Count 4.29 M/mm3 (4.6-6.2); White Blood Count 12.9 K/mm3 (4.4-11.0)
[2023-05-14 14:57] LABS: BNP,B-Type NATRIURETIC PEPTIDE 374.3 pg/mL (0-100)
[2023-05-14 14:59] LABS: Anion Gap 8 (5-15); BUN 27 mg/dL (7-18); BUN/Creat Ratio 25.2 RATIO (10-20); Calcium,Total 8.6 mg/dL (8.5-10.1); Chloride 108 mmol/L (98-107); Creatinine, Serum 1.07 mg/dL (0.70-1.30); EST Glomerular Filtration Rate 71 mL/min (>60); Est Glom Filt Rate - Afr Amer 86 mL/min (>60); Glucose 134 mg/dL (74-106); Potassium 4.6 mmol/L (3.5-5.1); Sodium Level 141 mmol/L (136-145)
== END | disposition home or self-care (01) ==
LOC: LAB 14:23
PROVIDERS: PCP Family Medicine; Referring Provider Nurse Practitioner Gerontology; Visit Provider Nurse Practitioner Gerontology
DX: R06.09 Other forms of dyspnea (principal)
CPT/HCPCS: 36415; 80048; 83880; 85025

== ENCOUNTER → 2023-05-23 | Outpatient (CLI) | payer MEDICARE, SELFPAY ==
--- NOTE | 2023-05-23 13:47 | CDU_ITS ---
Reason For Study: CVA Rt. Velocities/BP Lt. Velocities/BP Prox CCA 80.6/11.6 cm/sec. Prox CCA 90.7/16 cm/sec. Mid CCA 73/15.4 cm/sec. Mid CCA 81.9/18.2 cm/sec. Dist CCA 73/15.4 cm/sec. Dist CCA 97.4/17 cm/sec. Prox ICA 59.3/15.1 cm/sec. Prox ICA 53.1/16.8 cm/sec. Mid ICA 61.8/12.6 cm/sec. Mid ICA 59.7/16.8 cm/sec. Dist ICA 113.3/23.7 cm/sec. Dist ICA 81.7/24.5 cm/sec. Rt. ICA/CCA = 1.55. Lt. ICA/CCA = 0.90. Prox ECA 167.5/13.8 cm/sec. Prox ECA 115.6/11.5 cm/sec. Rt. Vert. 63/15.1 cm/sec. Lt. Vert. 47.5/14.5 cm/sec. Right Extracranial There is homogeneous, smooth atherosclerotic plaque noted in the right common carotid artery. There is heterogeneous, irregular atherosclerotic plaque noted in the right internal carotid artery. There is heterogeneous, irregular atherosclerotic plaque noted in the right external carotid artery. Antegrade flow is noted in the right vertebral artery. Left Extracranial There is homogeneous, smooth atherosclerotic plaque noted in the left common carotid artery. There is heterogeneous, irregular atherosclerotic plaque noted in the left internal carotid artery. There is heterogeneous, irregular atherosclerotic plaque noted in the left external carotid artery. Antegrade flow is noted in the left vertebral artery. Procedure Carotid Duplex 54230. This is a Carotid Duplex examination using B-mode, color flow and specral Doppler. Exam performed in department. VL/Carotid Duplex Ultrasound Interpretation Summary Mild (<50%) stenosis right extracranial internal carotid. Mild (<50%) stenosis left extracranial internal carotid. Patent and antegrade vertebrals bilaterally. Ordering Physician: Petra Villegas Referring Physician: Sebastián Stewart Performed By: Lanette Stratton RVT
== END | disposition home or self-care (01) ==
LOC: CVS 13:46
PROVIDERS: PCP Family Medicine; Referring Provider Nurse Practitioner Gerontology; Visit Provider Nurse Practitioner Gerontology
DX: R42 Dizziness and giddiness (principal); I63.9 Cerebral infarction, unspecified
CPT/HCPCS: 93880

== ENCOUNTER → 2023-06-21 | Outpatient (CLI) | payer MEDICARE, SELFPAY ==
--- OUTSIDE RECORDS SUMMARY | 2023-06-21 06:07 | XMS RPT_ITS | CCD ---
Author Name Unknown Address [address] [place] [address] Organization [facility] Care Team Providers Care Transport Driver Name Role Phone Terry LEE, Sebastián Bedoya Primary Care Provider SEBASTIÁN AHUJA Primary Care Unavailable DORINA MOLINA Attending Unavailable SEBASTIÁN AHUJA MD Primary Care Physician Sebastián Ahuja MD Primary Care Provider URIEL SELLERS DO Referring Unavailable SEBASTIÁN AHUJA Primary Care Unavailable URIEL SELLERS DO Referring Unavailable SEBASTIÁN AHUJA Primary Care Unavailable URIEL SELLERS DO Attending Unavailable URIEL SELLERS DO Referring Unavailable SEBASTIÁN AHUJA Primary Care Unavailable URIEL SELLERS DO Attending Unavailable SEBASTIÁN AHUJA Primary Care Unavailable EUSEBIO WASHBURN DO Attending Unavailable SEBASTIÁN AHUJA MD Primary Care Unavailable ALIS KAMARA MD Attending Unavailable SEBASTIÁN AHUJA MD Primary Care Unavailable SEBASTIÁN AHUJA MD Primary Care Unavailable SEBASTIÁN AHUJA MD Attending Unavailable Allergies Allergy Classification Reported Allergen(s) Allergy Type Date of Onset Reaction(s) Facility (10 sources) sacubitril / valsartan; Translations: [SACUBITRIL-BOB SARTAN] Drug Allergy 0 Cough [facility] (3 sources) sacubitril / valsartan; Translations: [sacubitril-bob sartan] Drug Allergy Unknown (qualifier value) [facility] (3 sources) Wool Allergy to substance Unknown [facility] Medications Current Medications Medication Drug Class(es) Dates Sig (Normalized) Sig (Original) acetaminophen 325 mg / HYDROcodone bitartrate 5 mg oral tablet (1 source) Opioid Agonist Start: 12-02-2022 End: 12-05-2022 take 1 tablet by mouth every six hours as needed for pain [place] 325- 5 mg oral tablet Dose = 1 tab(s), Oral, q6h, PRN as needed for pain, X 3 day(s), # 12 tab(s), 0 Refill(s), Corneal abrasion, 94.7 Start Date: 12/02/22 Stop Date: 12/05/22 Status: Ordered amLODIPine 5 mg oral tablet (1 source) Dihydropyridine Calcium Channel Mack Start: 05-02-2023 amLODIPine 5 mg oral tablet Dose : 2.5 mg = 0.5 tab(s), Oral, qDay, increase to 5 mg if systolic pressure stays more than 140, 0 Refill(s) Start Date: 05/02/23 Status: Ordered Ascorbic Acid (11 sources) Vitamin C Start: 08-25-2022 Vitamin C qDay, 0 Refill(s) Start Date: 08/25/22 Status: Ordered Completed/Discontinued Medications Medication Drug Class(es) Dates Sig (Normalized) Sig (Original) hydroCHLOROthiazide 25 mg / triamterene 37.5 mg oral tablet (5 sources) Potassium-spari ng Diuretic, Thiazide Diuretic Start: 09-21-2020 End: 08-11-2022 take 1 tablet by mouth once daily triamterene-hydro CHLOROthiazide (MAXZIDE-25MG) 37.5-25 mg per tablet Take 1 tablet by mouth once daily. 30 tablet 5 09/21/2020 08/11/2022 Discontinued Problems Active Problems Problem Classification Problem Date Documented Da te Episodic/Chronic Coagulation and hemorrhagic disorders (2 sources) Thrombocytopenic disorder 09-15-2022 Chronic Congestive heart failure; nonhypertensive (7 sources) Diastolic dysfunction; Translations: [Heart failure with reduced ejection fraction] Onset: 3 04-18-2019 Chronic Coronary atherosclerosis and other heart disease (15 sources) Coronary arteriosclerosis; Translations: [Atherosclerotic heart disease of ruby coronary artery without angina pectoris] Onset: 0 09-15-2019 Chronic Disorders of lipid metabolism (15 sources) Mixed hyperlipidemia; Translations: [Mixed hyperlipidemia] Onset: 1 04-20-2021 Chronic Essential hypertension (11 sources) Essential hypertension; Translations: [Essential (primary) hypertension] Onset: 1 04-20-2021 Chronic Hyperplasia of prostate (5 sources) Benign prostatic hyperplasia; Translations: [Benign prostatic hyperplasia without lower urinary tract symptoms] Onset: 3 04-18-2019 Chronic Osteoarthritis (4 sources) Osteoarthritis of left hip joint; Translations: [Unilateral primary osteoarthritis, left hip] Onset: 3 09-15-2022 Chronic Other endocrine disorders (3 sources) Male hypogonadism 04-18-2019 Chronic Other gastrointestinal disorders (3 sources) Acholic stool 04-18-2019 Episodic Other male genital disorders (3 sources) Impotence 04-18-2019 Chronic Other non-traumatic joint disorders (3 sources) Hip pain 08-25-2022 Episodic Other non-traumatic joint disorders (2 sources) Knee pain 09-15-2022 Episodic Nessa-; endo-; and myocarditis; cardiomyopathy (except that caused by tuberculosis or sexually transmitted disease) (10 sources) Cardiomyopathy; Translations: [Cardiomyopathy, unspecified] Onset: 0 09-15-2019 Chronic Residual codes; unclassified (2 sources) Other specified postprocedural states; Translations: [History of cardiac cath] Onset: 0 Episodic Spondylosis; intervertebral disc disorders; other back problems (5 sources) Sciatica; Translations: [Sciatica, left side] Onset: 3 Episodic Superficial injury; contusion (1 source) Injury of eye region; Translations: [Injury of conjunctiva and corneal abrasion without foreign body, unspecified eye, initial encounter] Onset: 3 Episodic Urinary tract infections (3 sources) Urinary tract infectious disease; Translations: [Urinary tract infection, site not specified] Onset: 3 05-31-2023 Episodic Past or Other Problems Problem Classification Problem Date Documented Date Episodic/Chronic Conditions associated with dizziness or vertigo (8 sources) Dizziness; Translations: [Dizziness and giddiness] Onset: 03-16-2022 Episodic Other lower respiratory disease (6 sources) Dyspnea; Translations: [Shortness of breath] Onset: 01-23-2022 01-23-2022 Episodic Residual codes; unclassified (20 sources) Past history of procedure; Translations: [Personal history of other medical treatment] Onset: 03-05-2014 09-15-2019 Episodic Residual codes; unclassified (10 sources) History of cardiac catheterization; Translations: [Other specified postprocedural states] Onset: 06-18-2013 09-16-2019 Episodic Residual codes; unclassified (10 sources) Non-smoker; Translations: [Other specified health status] Onset: 04-20-2021 04-20-2021 Episodic Residual codes; unclassified (2 sources) Personal history of other medical treatment; Translations: [History of echocardiography] Onset: 09-15-2019 Episodic Residual codes; unclassified (1 source) Other specified health status; Translations: [Non-smoker] Onset: 04-20-2021 Episodic Results Test Name Value Interpretation Reference Range Facil it Vital Signs Date Time Vital Sign Value Performing Clinician Facility 01-15-2023 14:53-0400 Body height 175.3 cm [employer] Work Phone: [facility] 01-15-2023 14:53-0400 Body weight 92.59 kg [employer] Work Phone: [facility] 01-15-2023 14:53-0400 Diastolic blood pressure 70 mm[Hg] [employer] Work Phone: [facility] 01-15-2023 14:53-0400 Heart rate 94 /min [employer] Work Phone: [facility] 01-15-2023 14:53-0400 Systolic blood pressure 120 mm[Hg] [employer] Work Phone: [facility] 12-02-2022 09:55-0400 Body height 175.3 cm EUSEBIO P[employer] [facility] 12-02-2022 09:55-0400 Body temperature 97.88 [degF] EUSEBIO PIRESPrecise Path [employer]T [employer] [facility] 12-02-2022 09:55-0400 Body weight 94.7 kg EUSEBIO PIRESPrecise Path [employer] [facility] 12-02-2022 09:55-0400 Diastolic Blood Pressure Non-Invasive 85 1 EUSEBIO CRUZT DO [facility] 12-02-2022 09:55-0400 Heart rate 98 /min EUSEBIO CRUZT DO [facility] 12-02-2022 09:55-0400 Respiratory rate 18 /min EUSEBIO WASHBURN DO [facility] 12-02-2022 09:55-0400 Systolic Blood Pressure Non-Invasive 156 1 EUSEBIO WASHBURN DO [facility] 08-11-2022 17:05-0500 Body temperature 97.59 [degF] Dorina Molina DO Work Phone: [facility] 08-11-2022 17:05-0500 Body weight 92.99 kg Dorina Molina DO Work Phone: [facility] 08-11-2022 17:05-0500 Diastolic blood pressure 79 mm[Hg] Dorina Molina DO Work Phone: [facility] 08-11-2022 17:05-0500 Heart rate 89 /min Dorina Molina DO Work Phone: [facility] 08-11-2022 17:05-0500 Respiratory rate 18 /min Dorina Molina DO Work Phone: [facility] 08-11-2022 17:05-0500 SaO2% (BldA) [Mass fraction] 96 % Dorina Molina DO Work Phone: [facility] 08-11-2022 17:05-0500 Systolic blood pressure 145 mm[Hg] Dorina Molina DO Work Phone: [facility] 03-24-2022 07:04-0400 Body height 175.3 cm Uriel Sellers DO Work Phone: [facility] 03-24-2022 07:04-0400 Body weight 95.25 kg Uriel [employer] Work Phone: [facility] 03-24-2022 07:04-0400 Diastolic blood pressure 68 mm[Hg] Uriel Sellers [employer] Work Phone: [facility] 03-24-2022 07:04-0400 Heart rate 71 /min Uriel Sellers [employer] Work Phone: [facility] 03-24-2022 07:04-0400 Systolic blood pressure 120 mm[Hg] Uriel Sellers [employer] Work Phone: [facility] Encounters Encounter Date Encounter Type Care Provider Facility Start: 05-31-2023 End: 06-05-2023 ambulatory SEBASTIÁN AHUJA MD Facility:B Start: 05-31-2023 End: 06-04-2023 Outreach Lab SEBASTIÁN AHUJA MD [facility] Start: 02-07-2023 Refsisi Mejía APRN.[employer] Work Phone: [facility] Procedures Date Procedure Procedure Detail Performing Clinician Start: 06-18-1989 Inguinal hernia (disorder) ALIS KAMARA MD Catheterization of b oth left and right heart ALIS KAMARA MD Plan of Treatment Date Care Activity Detail Author Start: 01-16-2024 BP CONTROLLED (<130/80) BP CONTROLLED (<130/80) [facility] Start: 03-24-2023 BP CONTROLLED (<130/80) BP CONTROLLED (<130/80) [facility] Start: 02-16-2023 Influenza vaccination INFLUENZA (#1) [facility] Start: 06-18-2022 ADVANCE DIRECTIVE DISCUSSION ADVANCE DIRECTIVE DISCUSSION [facility] Start: 06-18-2022 DEPRESSION ASSESSMENT DEPRESSION ASSESSMENT [facility] Start: 02-16-2022 Influenza vaccination [facility] Start: 08-01-2021 COVID-19 VACCINE (3 - Booster for Moderna series) COVID-19 VACCINE (3 - Booster for Moderna series) [facility] Start: 06-18-2021 ADVANCE DIRECTIVE DISCUSSION ADVANCE DIRECTIVE DISCUSSION [facility] Start: 06-18-2021 DEPRESSION ASSESSMENT DEPRESSION ASSESSMENT [facility] Start: 04-26-2021 COVID-19 VACCINE (3 - Booster for Moderna series) COVID-19 VACCINE (3 - Booster for Moderna series) [facility] Start: 04-26-2021 COVID-19 VACCINE (3 - Moderna series) COVID-19 VACCINE (3 - Moderna series) [facility] Start: 02-16-2021 Influenza vaccination INFLUENZA (#1) [facility] Start: 2008 PNEUMOCOCCAL: 65+ (1 - PCV) PNEUMOCOCCAL: 65+ (1 - PCV) [facility] Start: 2008 PNEUMOVAX AGE 65 AND OVER WITH 5YR LOOKBACK (#1) PNEUMOVAX AGE 65 AND OVER WITH 5YR LOOKBACK (#1) [facility] Start: 1993 SHINGRIX VACCINE (1 of 2) SHINGRIX VACCINE (1 of 2) [facility] Start: 1988 DIABETES SCREEN DIABETES SCREEN [facility] Start: 1962 Urine microalbumin profile DTAP,TDAP,TD (1 - Tdap) [facility] Start: 1961 ANNUAL PCP TEAM CHRONIC DISEASE VISIT ANNUAL PCP TEAM CHRONIC DISEASE VISIT [facility] Start: 1961 BP CONTROLLED (<130/80) BP CONTROLLED (<130/80) [facility] Start: 1961 Hepatitis B surface antibody level LDL CHOLESTEROL [facility] Start: 1961 HEPATITIS C SCREENING HEPATITIS C SCREENING [facility] Start: 1955 Adult depression screening assessment DEPRESSION SCREENING [facility] ECG COMPLETE ECG COMPLETE ECG Routine Essential hypertension 03/24/2022 7:08 AM EDT [facility] Work Phone: ECG COMPLETE ECG COMPLETE ECG Routine Essential hypertension 01/15/2023 1:53 PM EDT [facility] Work Phone: [facility] Immunizations Immunization Date Immunization Notes Care Provider Fa cilivicky 03-01-2021 SARS-CoV-2 (COVID-19 ) mRNA-1273 vaccine SEBASTIÁN AHUJA MD [facility] Payers Date Payer Category Payer Medicare HUMANA MEDICARE HUMANA MEDICARE PPO [id number] 2019-Present [phone] [address] [address] [place] [id number] PPO [id number] 2019 Medicare HUMANA MEDICARE HUMANA MEDICARE PPO [id number] 2019-Present [phone] [address] [address] [place] [id number] PPO [id number] 2019 Medicare [id number] 1945 Unknown [id number] 1945 Unknown [id number] 1945 Unknown [id number] Social History Date Type Detail Facility Start: 04-18-2019 End: 09-10-2019 Tobacco smoking status NHIS Never smoked tobacco [facility] Start: 09-10-2019 Tobacco use and exposure Smoke less tobacco non-user [facility] Start: 04-20-2021 End: 01-15-2023 Alcohol intake Ex-drinker (finding) [facility] Start: 1945 Sex Assigned At Not on file [facility] Start: 03-14-2022 End: 03-24-2022 Exposure to SARS-CoV-2 (event) Not sure [facility] Sex Assigned At Sex [facility] Start: 05-25-2020 End: 01-15-2023 [facility] Start: 05-25-2020 End: 01-15-2023 Tobacco use panel [facility] Adult Depression Scr eening Assessment 0 [facility] Functional Status Date Assessment Result Facility 12-02-2022 Functional Status Room check performed [facility] Mental Status Date Assessment Result Facility 06-17-2023 Mental Status Oriented x 4 [facility] Clinical Notes 08-26-2021 to 06-02-2023 Telephone Encounter - Rosalva Elin Alvarez - 02/07/2023 1:58 PM EDTGUriel jacinto DO - 01/15/2023 2:45 PM EDTTelephone Encounter - Kim BirminghamElin - 12/21/2022 2:24 PM EDTRadiologyRadiology Note Date & Type Note Facility 06-02-2023 Note . MICRO - Microbiology PROCEDURE: Urine Culture [*1] SOURCE: Urine, Clean Catch BODY SITE: COLLECTED DATE/TIME: 05/31/2023 15:30 EST RECEIVED DATE/TIME: 05/31/2023 21:07 EST START DATE/TIME: 05/31/2023 21:07 EST FREE TEXT SOURCE: FINAL REPORTS Final Report [] Verified Date/Time/Personnel: 06/02/2023 09:17 EST >100,000 cfu/ml Escherichia coli PRELIMINARY REPORTS Preliminary Report [] Verified Date/Time/Personnel: 06/01/2023 10:37 EST >100,000 cfu/ml Escherichia coli DANNIELLE to follow SUSCEPTIBILITY RESULTS Escherichia coli Antibiotic DANNIELLE Dilut DANNIELLE Inter Ampicillin >16 Resistant Ampicillin/ 16/8 Intermediate Sulbactam Aztreonam <=4 Susceptible Cefazolin <=2 Susceptible Ciprofloxacin 1 Resistant Ertapenem <=0.5 Susceptible Gentamicin <=2 Susceptible ID Panel Not Not Applicable Applicable Imipenem <=1 Susceptible Levofloxacin <=0.5 Susceptible Meropenem <=1 Susceptible Minocycline <=4 Susceptible Nitrofurantoin <=32 Susceptible Piperacillin/ <=8 Susceptible Tazobactam Trimethoprim/ <=0.5/9.5 Susceptible Sulfa Performing Locations *1: This test was performed at: [facility], [address] [place] [address], [id number] , [facility] ([place]) 02-07-2023 Miscellaneous Notes Pharmacy faxes requesting refill: Requested Prescriptions Pending Prescriptions Disp Refills metoprolol succinate ER (TOPROL XL) 25 mg 24 hr tablet [Pharmacy Med Name: METOPROLOL SUCCINATE ER 25 MG Tablet Extended Release 24 Hour] 90 tablet 2 Sig: TAKE 1 TABLET AT BEDTIME Date of last visit:01/15/2023 Phone #: [phone] (home) The patients preferred pharmacy has been captured for this encounter? yes documented in this encounter [facility] 01-15-2023 Note HNO ID: [id number] Author: Uriel Sellers DO Service: ? Author Type: Physician Type: Progress Notes Filed: 01/21/2023 8:54 PM Note Text: Referring Provider: Uriel Sellers DO Date: January 15, 2023 Chief Complaint: Established Patient Follow-Up (Dizziness, HTN, CAD) HISTORY OF PRESENT ILLNESS: Eben Cruz is a 77 year old male who presents for Established Patient Follow-Up (Dizziness, HTN, CAD). ALLERGIES Allergen Reactions Entresto [Sacubitri* Cough Throat sensation, cough PAST MEDICAL HISTORY: PAST MEDICAL HISTORY Diagnosis Date CAD (coronary artery disease) Cardiomyopathy ([facility]) Chronic systolic heart failure ([facility]) Essential hypertension HFrEF (heart failure with reduced ejection fraction) ([facility]) History of cardiac cath 2013 EF 45%, and 50% cx, 30% LAD History of echocardiography 04/2019 EF 35-40%. Mod LV cavity enlargement, mod left atrial and mild right atrial enlargement, mild MR, mild TR, normal right-sided systolioc pressure. History of Holter monitoring 03/05/2014 48-Hour event monitor secondary to palpitations was completed. Demonstrated sinus rhythm from 73bpm to 154bpm. Multiple runs of wide-complex arrhythmias were seen. 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 History of stress test 2018 39 large inf scar Mixed hyperlipidemia Myocardial infarction with cardiac rehabilitation ([facility]) PAST SURGICAL HISTORY Procedure Laterality Date ARTHRP ACETBLR/PROX FEM PROSTC AGRFT/ALGRFT 1996 ECHO 04/29/2019 EF 35-40% Moderate LV cavity enlargment with moderate reduction in global systolic function. Moderaat L atrial and mild R atrial enlargment. Mild LV regurgitation. Mild Tricuspid regurgitation. HEART CATHETERIZATION 09/29/2013 EF 40*45% Systolic dysfunction. Global Hypokinesis. Luminal irregularities of 30 % mid and distal third right coronary artery. Left Main 20% distal. 50-60% mid circumferance. 30% long throughout the entire proximal and mid portion of left anterioe descending. INGUINAL HERNIA REPAIR HX Left 1990 SHOULDER SURGERY HX 2013, 2014 STRESS TEST LEXISCAN 01/20/2019 EF 39% Abnormal wall motion demonstrating global hypokinesis. 1mm downsloping ST depression suggesting ischemia. FAMILY HISTORY Problem Relation Age of Onset Diabetes Mother Stroke Father Cancer Sister lung Heart disease Brother Diabetes Brother Stroke Brother SOCIAL HISTORY: Tobacco Use: Never Alcohol Use: Not Currently Drug Use: Never Employer And Job Title: None on file Years Of Education Completed: Not specified Marital Status: MEDICATIONS: Current Outpatient Medications Medication Sig simvastatin (ZOCOR) 10 mg tablet TAKE 1 TABLET AT BEDTIME metoprolol succinate ER (TOPROL XL) 25 mg 24 hr tablet TAKE 1 TABLET BY MOUTH EVERYDAY AT BEDTIME ascorbic acid, vitamin C, (VITAMIN C) 500 mg tablet Take 500 mg by mouth once daily. MAGNESIUM OXIDE ORAL Take 1,000 mg by mouth. Take every 2-3 days beto diaz-zinc picoli 80-15 mg cap Take 1 capsule by mouth twice daily. No current facility-administered medications for this visit. I have personally reviewed the patients past medical history including social, family, surgical, diagnostics, and medications. REVIEW OF SYSTEMS: Review of Systems Constitutional: Positive for fatigue. Negative for chills. Respiratory: Positive for shortness of breath. Negative for chest tightness. Cardiovascular: Negative for chest pain, palpitations and leg swelling. Neurological: Positive for dizziness. Negative for syncope, weakness and light-headedness. Hematological: Bruises/bleeds easily. Psychiatric/Behavioral: Negative for confusion and hallucinations. Vitals: BP 120/70 (BP Site: Left Arm, BP Position: Sitting) Pulse 94 Ht 175.3 cm (5' 9 ) Wt 92.6 kg (204 lb 1.9 oz) BMI 30.14 kg/m? PHYSICAL EXAMINATION: BP 120/70 (BP Site: Left Arm, BP Position: Sitting) Pulse 94 Ht 175.3 cm (5' 9 ) Wt 92.6 kg (204 lb 1.9 oz) BMI 30.14 kg/m? Last 3 Encounter BP Readings: Date: BP: 08/11/2022 145/79 03/24/2022 120/68 01/23/2022 130/78 Last 3 Encounter Pulse Readings: Date: Pulse: 08/11/2022 89 03/24/2022 71 01/23/2022 95 Last 3 Encounter Wt Readings: Date: Wt: 08/11/2022 93 kg (205 lb) 03/24/2022 95.3 kg (210 lb) 01/23/2022 94.8 kg (209 lb) Physical Exam Vitals reviewed. Constitutional: General: He is not in acute distress. Cardiovascular: Rate and Rhythm: Normal rate and regular rhythm. Pulses: Carotid pulses are 2+ on the right side and 2+ on the left side. Radial pulses are 2+ on the right side and 2+ on the left side. Femoral pulses are 2+ on the right side and 2+ on the left side. Popliteal pulses are 2+ on the right side and 2+ on the left side. Dorsalis pedis pulses are 2+ on the right side and 2+ on the left side. Posterior (more content not included)... [facility] 01-15-2023 History of Presen t illness Narrative Images from the original note were not included. Referring Provider: Uriel Sellers DO Date: January 15, 2023 Chief Complaint: Established Patient Follow-Up (Dizziness, HTN, CAD) HISTORY OF PRESENT ILLNESS: Eben Cruz is a 77 year old male who presents for Established Patient Follow-Up (Dizziness, HTN, CAD). ALLERGIES Allergen Reactions Entresto [Sacubitri* Cough Throat sensation, cough PAST MEDICAL HISTORY: PAST MEDICAL HISTORY Diagnosis Date CAD (coronary artery disease) Cardiomyopathy (HCC) Chronic systolic heart failure (HCC) Essential hypertension HFrEF (heart failure with reduced ejection fraction) ([facility]) History of cardiac cath 2013 EF 45%, and 50% cx, 30% LAD History of echocardiography 04/2019 EF 35-40%. Mod LV cavity enlargement, mod left atrial and mild right atrial enlargement, mild MR, mild TR, normal right-sided systolioc pressure. History of Holter monitoring 03/05/2014 48-Hour event monitor secondary to palpitations was completed. Demonstrated sinus rhythm from 73bpm to 154bpm. Multiple runs of wide-complex arrhythmias were seen. 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 History of stress test 2018 39 large inf scar Mixed hyperlipidemia Myocardial infarction with cardiac rehabilitation (HCC) PAST SURGICAL HISTORY Procedure Laterality Date ARTHRP ACETBLR/PROX FEM PROSTC AGRFT/ALGRFT 2014, 1996 ECHO 04/29/2019 EF 35-40% Moderate LV cavity enlargment with moderate reduction in global systolic function. Moderaat L atrial and mild R atrial enlargment. Mild LV regurgitation. Mild Tricuspid regurgitation. HEART CATHETERIZATION 09/29/2013 EF 40*45% Systolic dysfunction. Global Hypokinesis. Luminal irregularities of 30 % mid and distal third right coronary artery. Left Main 20% distal. 50-60% mid circumferance. 30% long throughout the entire proximal and mid portion of left anterioe descending. INGUINAL HERNIA REPAIR HX Left 1990 SHOULDER SURGERY HX 2013, 2014 STRESS TEST LEXISCAN 01/20/2019 EF 39% Abnormal wall motion demonstrating global hypokinesis. 1mm downsloping ST depression suggesting ischemia. FAMILY HISTORY Problem Relation Age of Onset Diabetes Mother Stroke Father Cancer Sister lung Heart disease Brother Diabetes Brother Stroke Brother SOCIAL HISTORY: Tobacco Use: Never Alcohol Use: Not Currently Drug Use: Never Employer And Job Title: None on file Years Of Education Completed: Not specified Marital Status: MEDICATIONS: Current Outpatient Medications Medication Sig simvastatin (ZOCOR) 10 mg tablet TAKE 1 TABLET AT BEDTIME metoprolol succinate ER (TOPROL XL) 25 mg 24 hr tablet TAKE 1 TABLET BY MOUTH EVERYDAY AT BEDTIME ascorbic acid, vitamin C, (VITAMIN C) 500 mg tablet Take 500 mg by mouth once daily. MAGNESIUM OXIDE ORAL Take 1,000 mg by mouth. Take every 2-3 days beto hall xtr-zinc picoli 80-15 mg cap Take 1 capsule by mouth twice daily. No current facility-administered medications for this visit. I have personally reviewed the patients past medical history including social, family, surgical, diagnostics, and medications. REVIEW OF SYSTEMS: Review of Systems Constitutional: Positive for fatigue. Negative for chills. Respiratory: Positive for shortness of breath. Negative for chest tightness. Cardiovascular: Negative for chest pain, palpitations and leg swelling. Neurological: Positive for dizziness. Negative for syncope, weakness and light-headedness. Hematological: Bruises/bleeds easily. Psychiatric/Behavioral: Negative for confusion and hallucinations. Vitals: BP 120/70 (BP Site: Left Arm, BP Position: Sitting) Pulse 94 Ht 175.3 cm (5' 9 ) Wt 92.6 kg (204 lb 1.9 oz) BMI 30.14 kg/m PHYSICAL EXAMINATION: BP 120/70 (BP Site: Left Arm, BP Position: Sitting) Pulse 94 Ht 175.3 cm (5' 9 ) Wt 92.6 kg (204 lb 1.9 oz) BMI 30.14 kg/m Last 3 Encounter BP Readings: Date: BP: 08/11/2022 145/79 03/24/2022 120/68 01/23/2022 130/78 Last 3 Encounter Pulse Readings: Date: Pulse: 08/11/2022 89 03/24/2022 71 01/23/2022 95 Last 3 Encounter Wt Readings: Date: Wt: 08/11/2022 93 kg (205 lb) 03/24/2022 95.3 kg (210 lb) 01/23/2022 94.8 kg (209 lb) Physical Exam Vitals reviewed. Constitutional: General: He is not in acute distress. Cardiovascular: Rate and Rhythm: Normal rate and regular rhythm. Pulses: Carotid pulses are 2+ on the right side and 2+ on the left side. Radial pulses are 2+ on the right side and 2+ on the left side. Femoral pulses are 2+ on the right side and 2+ on the left side. Popliteal pulses are 2+ on the right side and 2+ on the left side. Dorsalis pedis pulses are 2+ on the right side and 2+ on the left side. Posterior tibial pulses are 2+ on the right side and 2+ on the left side. Heart sounds: Murmur heard. Systolic murmur is present with a grade of 2/6. Comments: PMI not displaced. 2nd heart sound loud. Pulmonary: Effort: Pulmonary effort is normal. Breath sounds: Normal breath sounds. Abdominal: General: Abdomen is flat. Bowel sounds are normal. Palpations: Abdomen is soft. Tenderness: There is no abdominal tenderness. Musculoskeletal: Right lower leg: No edema. Left lower leg: No edema. Skin: General: Skin is warm. Findings: No rash or wound. Neurological: Mental Status: He is alert and oriented to person, place, and time. Coordination: Coordination is intact. LABS: No results found for: GLUC , K , NA , CHLOR , CO2 , CREAT , BUN , ANION , CA , TPROT , ALB , TBILI , ALKPHOS , AST , ALT No results found for: HB , HCT , WBC No results found for: CHOL , HDL , LDL , TG EKG: DIAGNOSTIC TEST RESULTS: Recent Results (from the past 24 hour(s)) ECG COMPLETE Collection Time: 01/15/23 1:53 PM Result Value Ref Range Ventricular Rate 94 BPM Atrial Rate 94 BPM P-R Interval 190 ms QRS Duration 96 ms QT Interval 344 ms QTC Calculation (Bazett) 430 ms Calculated P Wood[place] 59 degrees Calculated R [place] 8 degrees Calculated T Wood[place] -26 degrees Narrative NAME : EBEN CRUZ PID : [id number] : 1945 Gender : Male Race : ORD : [id number] Procedure Date : Jan 15 2023 13:53:19 Edit Date : Jan 15 2023 14:52:18 Diagnosis: SINUS RHYTHM WITH FREQUENT PREMATURE VENTRICULAR COMPLEXES LEFT VENTRICULAR HYPERTROPHY WITH REPOLARIZATION ABNORMALITY POSSIBLE INFERIOR MYOCARDIAL INFARCTION , AGE UNDETERMINED ABNORMAL ECG WHEN COMPARED WITH ECG OF 24-MAR-2022 07:08, T WAVE INVERSION NOW EVIDENT IN INFERIOR LEADS Test Reason : Location : 606 : UPSHE Overread By : , Edited By : , Referred By : URIEL SELLERS Acquired by : , Impression SINUS RHYTHM WITH FREQUENT PREMATURE VENTRICULAR COMPLEXES LEFT VENTRICULAR HYPERTROPHY WITH REPOLARIZATION ABNORMALITY POSSIBLE INFERIOR MYOCARDIAL INFARCTION , AGE UNDETERMINED ABNORMAL ECG WHEN COMPARED WITH ECG OF 24-MAR-2022 07:08, T WAVE INVERSION NOW EVIDENT IN INFERIOR LEADS I have provided a picture of today's EKG for your convenience and easy access. please note the interpretation on the EKG image is computer-generated and not the official interpretation. ASSESSMENT/PLAN: 1. Essential hypertension - ICD9: 401.9, ICD10: I10 (primary diagnosis) Patient's blood pressure in the office today was recorded as 120/70. Target systolic BP 140 or less and diastolic BP 90 or less. Continue current medications. - ECG COMPLETE sinus with PVC 2. Hyperlipidemia LDL goal <70 - ICD9: 272.4, ICD10: E78.5 Patient is currently taking simvastatin every day. No recent blood work. 3. HFrEF (heart failure with reduced ejection fraction) ([facility]) - ICD9: 428.20, ICD10: I50.20 He is on Entresto therapy in the past. Because marked difficulty with coughing. Changed to Toprol and Entresto was stopped. We will continue to hold EDEL with a history of coughing on Entresto Entresto would cause coughing Patient complained of having shortness of breath and slightly chest pain with exertion 4. History of cardiac cath - ICD9: V45.89, ICD10: Z98.890 Cath was done in 2013 showed EF 45%, and 50% cx, 30% LAD 5. History of echocardiography - ICD9: V15.89, ICD10: Z92.89 Echo was done 04/2019 showed EF 35-40%. Mod LV cavity enlargement, mod left atrial and mild right atrial enlargement, mild MR, mild TR, normal right-sided systolioc pressure 6. History of stress test - ICD9: V15.89, ICD10: Z92.89 Stress test was done in 2018 showed 39 large inf scar 7. History of Holter monitoring - ICD9: V45.89, ICD10: Z98.890 48-Hour event monitor secondary to palpitations was completed on 03/05/2014. Demonstrated sinus rhythm from 73bpm to 154bpm. Multiple runs of wide-complex arrhythmias were seen. 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 8. Non-smoker - ICD9: V49.89, ICD10: Z78.9 Patient has never been a smoker ILd , scribing for Dr. Uriel Sellers, was present in the room during the examination Follow up in: 9 month Prior to entering the room, I reviewed the last progress note including the diagnosis and plan of action. When available, I then reviewed the last heart catheterization, stress test, echocardiogram and EKG. I proceeded to review the medial therapy and any side effects the patient may have had in the past. I was able to look at the last several EKGs. A new EKG was performed today and an interetation was performed. I reviewed its interpretation with the family and compared it to the previous EKGs that we have in the medical records. Changes were described to the patient. In a pictorial format; I described the IN and QRS intervals. This was to show the effects of antiarrhythmic therapy on the electrical system. I was able to look at the past several EKG's. A new EKG was performed today and interpretation was noted. I reviewed this interpretation with the patient, and the family when available, and compared it to the previous EKG's that we have in the medical record. Since my office visit was carried out with a scribe, while in the exam room I was able to devote one hundred percent of my time in [id number] conversation with the patient. I answered all the questions and explained the diagnosis of heart failure and intolerance to Entresto. Greater that 51% of my time was spent with [id number] conversation with the patient. I have discussed the recommended treatment, alternative therapies and other options in detail. I've discussed the best benefit and side effects of these recommended treatments. I've attempted to answer all the questions to the patient's satisfaction and understanding. With approval, we would recommend an pursue the current therapy such as no change. After leaving the exam room, I went back into the patient's chart and coordinated care with my nurse ordering the proper testing and medicinal changes. Letter was performed with voice recognition algorithms and sent to the referring team. The chart was completed. Including the pre-exam, exam and post-exam, the total time spent in the patient's management was greater than 15 minutes I, Dr. Uriel Sellers, have reviewed and agree with the information in the medical record. Uriel Sellers DO documented in this encounter [facility] 12-21-2022 Miscellaneous Notes Pharmacy faxes requesting refill: Requested Prescriptions Pending Prescriptions Disp Refills simvastatin (ZOCOR) 10 mg tablet [Pharmacy Med Name: SIMVASTATIN 10 MG Tablet] 90 tablet 0 Sig: TAKE 1 TABLET AT BEDTIME Date of last visit:03/24/22 Phone #: [phone] (home) The patients preferred pharmacy has been captured for this encounter? yes documented in this encounter [facility] 12-02-2022 Hospital Discharg e instructions Patient Education 12/02/2022 10:21:05 Corneal Abrasion Corneal Abrasion You have received a scratch or scrape (abrasion) to your cornea. The cornea is the clear part in the front of the eye. This sensitive area is very painful when injured. You may make tears frequently, and your vision may be blurry until the injury heals. You may be sensitive to light. This part of the body heals quickly. You can expect the pain to go away within 24 to 48 hours. If the abrasion is large or deep, your doctor may apply an eye patch, although this is not always done. An antibiotic ointment or eye drops may also be used to prevent infection. Numbing drops may be used to relieve the pain temporarily so that your eyes can be examined. But these drops can t be prescribed for home use because that would prevent healing and lead to more serious problems. Also, if you can t feel your eye, there is a chance of accidentally injuring it further without knowing it. Home care A cold pack may be applied over the eye (or eye patch) for 20 minutes at a time, to reduce pain. To make a cold pack, put ice cubes in a plastic bag that seals at the top. Wrap the bag in a clean, thin towel or cloth. You may use acetaminophen or ibuprofen to control pain, unless another pain medicine was prescribed. Note: If you have chronic liver or kidney disease or have ever had a stomach ulcer or GI bleeding, talk with your doctor before using these medicines. Rest your eyes and don t read until symptoms are gone. If you use contact lenses, don t wear them until all symptoms are gone. If your vision is affected by the corneal abrasion or if an eye patch was applied, don t drive a motor vehicle or operate machinery until all symptoms are gone. You may have trouble judging distances using only one eye. If your eyes are sensitive to light, try wearing sunglasses, or stay indoors until symptoms go away. Follow-up care Follow up with your healthcare provider, or as advised. If no patch was put on your eye and the pain continues for more than 48 hours, you should have another exam. Contact your healthcare provider to arrange this. If your eye was patched and you were asked to remove the patch yourself, see your healthcare provider. Contact your healthcare provider if you still have pain after the patch is removed. If you were given a return appointment for patch removal and re-examination, be sure to keep the appointment. Leaving the patch in place longer than advised could be harmful. When to seek medical advice Call your healthcare provider right away if any of these occur. Increasing eye pain or pain that does not improve after 24 hours Discharge from the eye Increasing redness of the eye or swelling of the eyelids Worsening vision Symptoms get worse after the abrasion has healed [id number] [employer]. [address] [place] [address]. All rights reserved. This information is not intended as a substitute for professional medical care. Always follow your healthcare professional's instructions. Follow Up Care 12/02/2022 09:44:52 With:[facility] Address: When:2-4 days With:SEBASTIÁN AHUJA MD Address: [address] [place] [address]- When:2-4 days [facility] 12-02-2022 Note Discharge Instructions Thank you for allowing [facility] to assist you with your healthcare needs. The following is important discharge information regarding your hospital visit. Diagnosis from Today's Visit Corneal abrasion Pain in eye What to Do Next Instructions from Your Care Team No qualifying data available. Post Acute Orders No qualifying data available. You Need to Schedule the Following Appointments Follow Up with [facility] When Within 2-4 days Where: Follow Up with SEBASTIÁN AHUJA MD When Within 2-4 days Where: [address] [place], [place] [id number]- Allergies Entresto (Unknown) Wool (Unknown) Medications Please ask your primary doctor or pharmacist before taking any other medication not listed, including over the counter drugs, herbal medications, vitamins and or supplements as they may interact with your home medications. What How Much When Why Instructions Last Dose New acetaminophen-hydrocodone (Monroe 325- 5 mg oral tablet) 1 tab(s) by mouth Every 6 hours as needed for as needed for pain Corneal abrasion Duration: 3 Days Printed Prescription New ketorolac ophthalmic (ketorolac 0.5% ophthalmic solution) 1 Drops Left eye Four (4) times a day as needed for Pain Corneal abrasion Duration: 7 Days Printed Prescription New polymyxin B-trimethoprim ophthalmic (polymyxin B-trimethoprim 10,000 units-1 mg/ mL ophthalmic solution) 2 Drops Left eye Every 6 hours Corneal abrasion Duration: 7 Days Printed Prescription Unchanged ascorbic acid (Vitamin C) Once a day Unchanged cholecalciferol (Vitamin D (3) 45 units oral capsule) Unchanged herbal/ nutritional product (saw palmetto oral capsule) Unchanged metoprolol (Metoprolol Succinate ER 25 mg oral TABLET extended release) Unchanged simvastatin (simvastatin 10 mg oral tablet) 1 tab(s) by mouth Daily at bedtime Please take this list to your next doctor s visit. Bring all medications you take, including over the counter medications, herbals and other supplements with you to your doctor s visit. Patients and families are reminded to discard old lists and to update any records with all medication providers or retail pharmacies. Medication Leaflets acetaminophen and hydrocodone (a SEET a MIN oh fen and veronica droe KOE done) Hycet, Lorcet, Monroe, Verdrocet, Vicodin, Xodol, Zamicet What is the most important information I should know about acetaminophen and hydrocodone? MISUSE OF OPIOID MEDICINE CAN CAUSE ADDICTION, OVERDOSE, OR . Keep the medication in a place where others cannot get to it. Taking opioid medicine during may cause life-threatening withdrawal symptoms in the . Fatal side effects can occur if you use opioid medicine with alcohol, or with other drugs that cause drowsiness or slow your breathing. Stop taking this medicine and call your doctor right away if you have skin redness or a rash that spreads and causes blistering and peeling. What is acetaminophen and hydrocodone? Acetaminophen and hydrocodone is a combination medicine used to relieve moderate to severe pain. Acetaminophen and hydrocodone contains an opioid medicine, and may be habit-forming. Acetaminophen and hydrocodone may also be used for purposes not listed in this medication guide. What should I discuss with my healthcare provider before taking acetaminophen and hydrocodone? You should not use this medicine if you are allergic to acetaminophen or hydrocodone, or if you have: severe asthma or breathing problems; or a blockage in your stomach or intestines. Tell your doctor if you have ever had: breathing problems, sleep apnea (breathing stops during sleep); liver disease; a drug or alcohol addiction; kidney disease; a head injury or seizures; urination problems; or problems with your thyroid, pancreas, or gallbladder. If you use opioid medicine while you are , your baby could become dependent on the drug. This can cause life-threatening withdrawal symptoms in the baby after it is born. Babies born dependent on opioids may need medical treatment for several weeks. Ask a doctor before using opioid medicine if you are . Tell your doctor if you notice severe drowsiness or slow breathing in the nursing baby. How should I take acetaminophen and hydrocodone? Follow all directions on your prescription label. Never take this medicine in larger amounts, or for longer than prescribed. An overdose can damage your liver or cause . Tell your doctor if you feel an increased urge to use more of this medicine. Never share this medicine with another person, especially someone with a history of drug abuse or addiction. MISUSE CAN CAUSE ADDICTION, OVERDOSE, OR . Keep the medicine in a place where others cannot get to it. Selling or giving away this medicine is against the law. Measure liquid medicine carefully. Use the dosing syringe provided, or use a medicine dose-measuring device (not a kitchen spoon). If you need surgery or medical tests, tell the doctor ahead of time that you are using this medicine. You should not stop using this medicine suddenly. Follow your doctor's instructions about tapering your dose. Store at room temperature away from moisture and heat. Keep track of your medicine. You should be aware if anyone is using it improperly or without a prescription. Do not keep leftover opioid medication. Just one dose can cause in someone using this medicine accidentally or improperly. Ask your pharmacist where to locate a drug take-back disposal program. If there is no take-back program, flush the unused medicine down the toilet. What happens if I miss a dose? Since this medicine is used for pain, you are not likely to miss a dose. Skip any missed dose if it is almost time for your next dose. Do not use two doses at one time. What happens if I overdose? Seek emergency medical attention or call the Poison Help line at . An overdose of this medicine can be fatal, especially in a child or other person using the medicine without a prescription. Overdose symptoms may include nausea, vomiting, sweating, severe drowsiness, pinpoint pupils, slow breathing, or no breathing. Your doctor may recommend you get naloxone (a medicine to reverse an opioid overdose) and keep it with you at all times. A person caring for you can give the naloxone if you stop breathing or don't wake up. Your caregiver must still get emergency medical help and may need to perform CPR (cardiopulmonary resuscitation) on you while waiting for help to arrive. Anyone can buy naloxone from a pharmacy or local health department. Make sure any person caring for you knows where you keep naloxone and how to use it. What should I avoid while taking acetaminophen and hydrocodone? Avoid driving or operating machinery until you know how this medicine will affect you. Dizziness or drowsiness can cause falls, accidents, or severe injuries. Do not drink alcohol. Dangerous side effects or could occur. Ask a doctor or pharmacist before using any other medicine that may contain acetaminophen (sometimes abbreviated as APAP). Taking certain medications together can lead to a fatal overdose. What are the possible side effects of acetaminophen and hydrocodone? Get emergency medical help if you have signs of an allergic reaction: hives; difficulty breathing; swelling of your face, lips, tongue, or throat. Opioid medicine can slow or stop your breathing, and may occur. A person caring for you should give naloxone and/or seek emergency medical attention if you have slow breathing with long pauses, blue colored lips, or if you are hard to wake up. In rare cases, acetaminophen may cause a severe skin reaction that can be fatal. This could occur even if you have taken acetaminophen in the past and had no reaction. Stop taking this medicine and call your doctor right away if you have skin redness or a rash that spreads and causes blistering and peeling. Call your doctor at once if you have: noisy breathing, sighing, shallow breathing, breathing that stops; a light-headed feeling, like you might pass out; liver problems--nausea, upper stomach pain, tiredness, loss of appetite, dark urine, hanh-colored stools, jaundice (yellowing of the skin or eyes); low cortisol levels-- nausea, vomiting, loss of appetite, dizziness, worsening tiredness or weakness; o high levels of serotonin in the body--agitation, hallucinations, fever, sweating, shivering, fast heart rate, muscle stiffness, twitching, loss of coordination, nausea, vomiting, diarrhea. Serious breathing problems may be more likely in older adults and in those who are debilitated or have wasting syndrome or chronic breathing disorders. Common side effects include: dizziness, drowsiness, feeling tired; nausea, vomiting, stomach pain; constipation; or headache. This is not a complete list of side effects and others may occur. Call your doctor for medical advice about side effects. You may report side effects to FDA at 5-029-OHO-3046. What other drugs will affect acetaminophen and hydrocodone? You may have breathing problems or withdrawal symptoms if you start or stop taking certain other medicines. Tell your doctor if you also use an antibiotic, antifungal medication, heart or blood pressure medication, seizure medication, or medicine to treat HIV or hepatitis C. Opioid medication can interact with many other drugs and cause dangerous side effects or . Be sure your doctor knows if you also use: cold or allergy medicines, bronchodilator asthma/COPD medication, or a diuretic ('water pill'); medicines for motion sickness, irritable bowel syndrome, or overactive bladder; other opioids--opioid pain medicine or prescription cough medicine; a sedative like Valium--diazepam, alprazolam, lorazepam, Xanax, Klonopin, Versed, and others; drugs that make you sleepy or slow your breathing--a sleeping pill, muscle relaxer, medicine to treat mood disorders or mental illness; drugs that affect serotonin levels in your body--a stimulant, or medicine for depression, Parkinson's disease, migraine headaches, serious infections, or nausea and vomiting. This list is not complete. Other drugs may affect acetaminophen and hydrocodone, including prescription and [id number] medicines, vitamins, and herbal products. Not all possible interactions are listed here. Where can I get more information? Your doctor or pharmacist can provide more information about acetaminophen and hydrocodone. Remember, keep this and all other medicines out of the reach of children, never share your medicines with others, and use this medication only for the indication prescribed. Every effort has been made to ensure that the information provided by [employer]. [employer]') is accurate, up-to-date, and complete, but no guarantee is made to that effect. Drug information contained herein may be time sensitive. [employer] information has been compiled for use by healthcare practitioners and consumers in the [place] and therefore [employer] does not warrant that uses outside of the [place] are appropriate, unless specifically indicated otherwise. [employer]'s drug information does not endorse drugs, diagnose patients or recommend therapy. [facility]'s drug information is an informational resource designed to assist licensed healthcare practitioners in caring for their patients and/or to serve consumers viewing this service as a supplement to, and not a substitute for, the expertise, skill, knowledge and judgment of healthcare practitioners. The absence of a warning for a given drug or drug combination in no way should be construed to indicate that the drug or drug combination is safe, effective or appropriate for any given patient. [facility] does not assume any responsibility for any aspect of healthcare administered with the aid of information [facility] provides. The information contained herein is not intended to cover all possible uses, directions, precautions, warnings, drug interactions, allergic reactions, or adverse effects. If you have questions about the drugs you are taking, check with your doctor, nurse or pharmacist. Copyright 4310-0892 [facility] [employer]. Version: 16.03. Revision Date: 07/20/2020. polymyxin B and trimethoprim ophthalmic (RYAN ee MIX in B and try METH oh prim off THAL kailash) Polytrim What is the most important information I should know about polymyxin B and trimethoprim ophthalmic? Use only as directed. Tell your doctor if you use other medicines or have other medical conditions or allergies. What is polymyxin B and trimethoprim ophthalmic? Polymyxin B and trimethoprim ophthalmic (for use in the eyes) is a combination medicine used to treat eye infections caused by bacteria. Polymyxin B and trimethoprim ophthalmic may also be used for purposes not listed in this medication guide. What should I discuss with my healthcare provider before using polymyxin B and trimethoprim ophthalmic? You should not use this medicine if you are allergic to polymyxin B or trimethoprim. Tell your doctor if you are or . This medicine should not be given to a child younger than 2 months old. How should I use polymyxin B and trimethoprim ophthalmic? This medicine is usually applied once every 3 hours for 7 to 10 days. Follow all directions on your prescription label and read all medication guides or instruction sheets. Use the medicine exactly as directed. Wash your hands before using the eye drops. To apply the eye drops: Tilt your head back slightly and pull down your lower eyelid to create a small pocket. Hold the dropper above the eye with the tip down. Look up and away from the dropper and squeeze out a drop. Close your eyes for 2 or 3 minutes with your head tipped down, without blinking or squinting. Gently press your finger to the inside corner of the eye for about 1 minute, to keep the liquid from draining into your tear duct. Use only the number of drops your doctor has prescribed. If you use more than one drop, wait about 5 minutes between drops. Wait at least 10 minutes before using any other eye drops your doctor has prescribed. Do not touch the tip of the eye dropper or place it directly on your eye. A contaminated dropper can infect your eye, which could lead to serious vision problems. Do not use the eye drops if the liquid has changed colors or has particles in it. Call your pharmacist for new medicine. Use this medication for the full prescribed length of time. Your symptoms may improve before the infection is completely cleared. Skipping doses may also increase your risk of further infection that is resistant to antibiotics. Store at room temperature away from moisture, heat, and light. Keep the bottle tightly closed when not in use. What happens if I miss a dose? Use the medicine as soon as you can, but skip the missed dose if it is almost time for your next dose. Do not use two doses at one time. What happens if I overdose? Seek emergency medical attention or call the Poison Help line at . What should I avoid while using polymyxin B and trimethoprim ophthalmic? Do not use this medicine while wearing contact lenses. Polymyxin B and trimethoprim ophthalmic may contain a preservative that can discolor soft contact lenses. Wait at least 15 minutes after using this medicine before putting in your contact lenses. Do not use other eye medications unless your doctor tells you to. What are the possible side effects of polymyxin B and trimethoprim ophthalmic? Get emergency medical help if you have signs of an allergic reaction: hives; difficult breathing; swelling of your face, lips, tongue, or throat. Stop using this medicine and call your doctor at once if you have: eye pain, swelling, redness, or severe discomfort; crusting or drainage (may be signs of infection); swelling or redness of your eyelids; or new or worsening symptoms. Common side effects may include: mild burning, stinging, or itching of your eyes. This is not a complete list of side effects and others may occur. Call your doctor for medical advice about side effects. You may report side effects to FDA at 5-792-ZYI-1088. What other drugs will affect polymyxin B and trimethoprim ophthalmic? Medicine used in the eyes is not likely to be affected by other drugs you use. But many drugs can interact. Tell your doctor about all your current medicines, including prescription and dwax-ffa-flskknx medicines, vitamins, and herbal products. Where can I get more information? Your doctor or pharmacist can provide more information about polymyxin B and trimethoprim ophthalmic. Remember, keep this and all other medicines out of the reach of children, never share your medicines with others, and use this medication only for the indication prescribed. Every effort has been made to ensure that the information provided by [employer]. [employer]') is accurate, up-to-date, and complete, but no guarantee is made to that effect. Drug information contained herein may be time sensitive. [employer] information has been compiled for use by healthcare practitioners and consumers in the [place] and therefore [employer] does not warrant that uses outside of the [place] are appropriate, unless specifically indicated otherwise. [employer] drug information does not endorse drugs, diagnose patients or recommend therapy. [employer] drug information is an informational resource designed to assist licensed healthcare practitioners in caring for their patients and/or to serve consumers viewing this service as a supplement to, and not a substitute for, the expertise, skill, knowledge and judgment of healthcare practitioners. The absence of a warning for a given drug or drug combination in no way should be construed to indicate that the drug or drug combination is safe, effective or appropriate for any given patient. [employer] does not assume any responsibility for any aspect of healthcare administered with the aid of information [employer] provides. The information contained herein is not intended to cover all possible uses, directions, precautions, warnings, drug interactions, allergic reactions, or adverse effects. If you have questions about the drugs you are taking, check with your doctor, nurse or pharmacist. Copyright 8191-5394 [employer]. Version: 5.01. Revision Date: 07/21/2021. ketorolac ophthalmic (HE toe ROLE ak off THAL kailash) Acular, Acular LS, Acuvail What is the most important information I should know about ketorolac ophthalmic? Follow all directions on your medicine label and package. Tell each of your healthcare providers about all your medical conditions, allergies, and all medicines you use. What is ketorolac ophthalmic? Ketorolac is a nonsteroidal anti-inflammatory drug (NSAID) that works by reducing hormones that cause inflammation and pain in the body. Ketorolac ophthalmic (for the eye) is used to relieve eye itching caused by seasonal allergies. Ketorolac ophthalmic is also used to reduce swelling, pain, and burning or stinging after cataract surgery or corneal refractive surgery. Ketorolac ophthalmic may also be used for purposes not listed in this medication guide. What should I discuss with my healthcare provider before I use ketorolac ophthalmic? You should not use this medicine if you are allergic to ketorolac. Tell your doctor if you are allergic to any other NSAIDs, such as aspirin, ibuprofen (Advil, Motrin), naproxen (Aleve), celecoxib, diclofenac, indomethacin, meloxicam, and others. To make sure ketorolac ophthalmic is safe for you, tell your doctor if you have: a bleeding or blood-clotting disorder; diabetes; arthritis; glaucoma; dry eye syndrome; or a condition for which you take a blood thinner such as warfarin (Coumadin, Jantoven). It is not known whether this medicine will harm an unborn baby. Tell your doctor if you are . It is not known whether ketorolac ophthalmic passes into breast milk or if it could harm a nursing baby. Tell your doctor if you are breast-feeding a baby. Do not give this medicine to a child without medical advice. How should I use ketorolac ophthalmic? Follow all directions on your prescription label. Do not use this medicine in larger or smaller amounts or for longer than recommended. Ketorolac ophthalmic is used 2 to 4 times per day, depending on the condition you are treating. Follow your doctor's dosing instructions very carefully. Prolonged use of NSAID eye drops can lead to serious damage to your eyesight. For cataract surgery you will begin using the eye drops 1 day before surgery and continue for up to 2 weeks afterward. For corneal refractive surgery the usual dosage is 4 times daily for up to 4 days after surgery. Do not use ketorolac ophthalmic while you are wearing contact lenses. Wash your hands before using the eye drops. To apply the eye drops: Tilt your head back slightly and pull down your lower eyelid to create a small pocket. Hold the dropper above the eye with the tip down. Look up and away from the dropper and squeeze out a drop. Close your eyes for 2 or 3 minutes with your head tipped down, without blinking or squinting. Gently press your finger to the inside corner of the eye for about 1 minute, to keep the liquid from draining into your tear duct. Use only the number of drops your doctor has prescribed. If you use more than one drop, wait about 5 minutes between drops. If using this medicine after single-eye surgery, use the drops only in the eye you are having surgery on. Wait at least 10 minutes before using any other eye drops your doctor has prescribed. Do not touch the tip of the eye dropper or place it directly on your eye. A contaminated dropper can infect your eye, which could lead to serious vision problems. Do not use the eye drops if the liquid has changed colors or has particles in it. Call your pharmacist for new medicine. Each single-use vial (bottle) of this medicine is for use in one eye only. Throw away after one use, even if there is still some medicine left in the vial. Store at room temperature away from moisture, heat, and light. Do not freeze. Keep the bottle tightly closed when not in use. If your medicine vials come in a foil pouch, store the vials inside the pouch and fold the ends closed. What happens if I miss a dose? Use the missed dose as soon as you remember. Skip the missed dose if it is almost time for your next scheduled dose. Do not use extra medicine to make up the missed dose. What happens if I overdose? An overdose of ketorolac ophthalmic is not expected to be dangerous. Seek emergency medical attention or call the Poison Help line at if anyone has accidentally swallowed the medication. What should I avoid while using ketorolac ophthalmic? While using this medication, do not wear any contact lens that has not been approved by your doctor. Do not use other eye medications unless your doctor tells you to. What are the possible side effects of ketorolac ophthalmic? Get emergency medical help if you have signs of an allergic reaction: hives; difficult breathing; swelling of your face, lips, tongue, or throat. Call your doctor at once if you have: severe burning, stinging, or itching of your eyes; a wound that will not heal; eye pain, redness, or watering; vision changes, increased sensitivity to light; white patches on your eyes; or crusting or drainage from your eyes. Common side effects may include: mild eye pain, stinging, or redness; blurred vision; watery eyes; swollen or puffy eyelids; or headache. This is not a complete list of side effects and others may occur. Call your doctor for medical advice about side effects. You may report side effects to FDA at 4-825-MPE-3599. What other drugs will affect ketorolac ophthalmic? It is not likely that other drugs you take orally or inject will have an effect on ketorolac used in the eyes. But many drugs can interact with each other. Tell each of your healthcare providers about all medicines you use, including prescription and tpfj-bbz-wksvujy medicines, vitamins, and herbal products. Where can I get more information? Your doctor or pharmacist can provide more information about ketorolac ophthalmic. Remember, keep this and all other medicines out of the reach of children, never share your medicines with others, and use this medication only for the indication prescribed. Every effort has been made to ensure that the information provided by [employer]. [employer] is accurate, up-to-date, and complete, but no guarantee is made to that effect. Drug information contained herein may be time sensitive. [employer] information has been compiled for use by healthcare practitioners and consumers in the [place] and therefore [employer] does not warrant that uses outside of the [place] are appropriate, unless specifically indicated otherwise. [employer] drug information does not endorse drugs, diagnose patients or recommend therapy. [employer] drug information is an informational resource designed to assist licensed healthcare practitioners in caring for their patients and/or to serve consumers viewing this service as a supplement to, and not a substitute for, the expertise, skill, knowledge and judgment of healthcare practitioners. The absence of a warning for a given drug or drug combination in no way should be construed to indicate that the drug or drug combination is safe, effective or appropriate for any given patient. [employer] does not assume any responsibility for any aspect of healthcare administered with the aid of information [employer] provides. The information contained herein is not intended to cover all possible uses, directions, precautions, warnings, drug interactions, allergic reactions, or adverse effects. If you have questions about the drugs you are taking, check with your doctor, nurse or pharmacist. Copyright 6408-4092 [employer]. Version: 8.01. Revision Date: 01/05/2016. Education Materials Corneal Abrasion You have received a scratch or scrape (abrasion) to your cornea. The cornea is the clear part in the front of the eye. This sensitive area is very painful when injured. You may make tears frequently, and your vision may be blurry until the injury heals. You may be sensitive to light. This part of the body heals quickly. You can expect the pain to go away within 24 to 48 hours. If the abrasion is large or deep, your doctor may apply an eye patch, although this is not always done. An antibiotic ointment or eye drops may also be used to prevent infection. Numbing drops may be used to relieve the pain temporarily so that your eyes can be examined. But these drops can t be prescribed for home use because that would prevent healing and lead to more serious problems. Also, if you can t feel your eye, there is a chance of accidentally injuring it further without knowing it. Home care A cold pack may be applied over the eye (or eye patch) for 20 minutes at a time, to reduce pain. To make a cold pack, put ice cubes in a plastic bag that seals at the top. Wrap the bag in a clean, thin towel or cloth. You may use acetaminophen or ibuprofen to control pain, unless another pain medicine was prescribed. Note: If you have chronic liver or kidney disease or have ever had a stomach ulcer or GI bleeding, talk with your doctor before using these medicines. Rest your eyes and don t read until symptoms are gone. If you use contact lenses, don t wear them until all symptoms are gone. If your vision is affected by the corneal abrasion or if an eye patch was applied, don t drive a motor vehicle or operate machinery until all symptoms are gone. You may have trouble judging distances using only one eye. If your eyes are sensitive to light, try wearing sunglasses, or stay indoors until symptoms go away. Follow-up care Follow up with your healthcare provider, or as advised. If no patch was put on your eye and the pain continues for more than 48 hours, you should have another exam. Contact your healthcare provider to arrange this. If your eye was patched and you were asked to remove the patch yourself, see your healthcare provider. Contact your healthcare provider if you still have pain after the patch is removed. If you were given a return appointment for patch removal and re-examination, be sure to keep the appointment. Leaving the patch in place longer than advised could be harmful. When to seek medical advice Call your healthcare provider right away if any of these occur. Increasing eye pain or pain that does not improve after 24 hours Discharge from the eye Increasing redness of the eye or swelling of the eyelids Worsening vision Symptoms get worse after the abrasion has healed [id number] [employer]. [address] [place] [address]. All rights reserved. This information is not intended as a substitute for professional medical care. Always follow your healthcare professional's instructions. Additional Information VACCINATE! IT SAVES LIVES! Members of the community who have not yet received the COVID-19 vaccine and would like to receive it can visit one of [facility] vaccine clinics. There are many vaccine clinic locations within the [facility]. For locations and available times, please visit [email or web address] [email or web address]/. It is important to note that some COVID mobile vaccine clinics are held outdoors and may be canceled in rainy or stormy conditions. To learn more about pediatric vaccinations (ages 5-11), we invite you to visit the [facility] webpage. [email or web address]/ [email or web address]-[email or web address]-Fr [email or web address] To learn more about the COVID-19 vaccine, we invite you to visit the CDC website for a list of frequently asked questions. https://www.cdc.gov/coronavirus /2019-ncov/vaccines/faq.html [employer] [facility] [employer] Patient Portal Access Instructions: Stay connected with your healthcare team and access your personal medical information anytime with the [facility] Patient Portal. If you would like a full copy of your medical records please contact the [facility] Medical Records Department Sunday through Sunday between 8a.m. and 4:30p.m. Please follow the directions below to access the portal: 1.Access the email account you provided upon registration to the [facility].2.Look for an invitation email from [facility].3.Open the email and access the invitation link: Accept Invitation to [facility]4.Fill in the required black to create your account. Sign into www.[employer] with your username and password that you created in the above steps to stay up to date. You can then view a summary of results, a summary of your visits, and the ability to download your summaries to your computer or send the information securely to a physician. Remember that your healthcare information is confidential, so carefully consider who you will allow to register on the [facility] Patient Portal for access to your information. You can also access the [facility] Patient Portal on the [employer]. Simply click on Health Records under Health Data and then click on the [employer] logo. HOW TO SAFELY DISPOSE OF PRESCRIPTION MEDICATIONS Please use one of the following methods to safely dispose of your unused medications. 1.Use a drug disposal kit: the drug disposal pouch allows you to safely discard your old and unused drugs. Ask your nurse to give you one when you are discharged.2.Visit a local take-back location: Many local pharmacies and police departments have programs that collect old and unwanted prescription drugs. Call your local pharmacy or go to http://Ganipara.Gingr/5Q3Mc6j to find one close to you.3.Make use of household items: Use cat litter or old coffee grounds to dispose medications if other options are not available. Mix your drugs with these household products, seal them in an airtight container and throw it into the garbage. Call [facility]: [phone] to be sure your drugs can be disposed of in this way. Some medicines may require a different approach.4.Never flush your medications down the toilet. IF YOU HAVE BEEN PRESCRIBED AN OPIOIDS FOR PAIN If you have been prescribed an opioid (such as hydrocodone, oxycodone or morphine), it is critical to understand the possible side effects and risks of opioid pain medications. Even when taken as directed, opioids can have several side effects including: Tolerance, meaning you might need to take more of a medication for the same pain relief. Nausea, vomiting and/or constipation. Sleepiness, dizziness, dry mouth, confusion, depression or itching. Physical dependence, meaning you have withdrawal symptoms when a medication is stopped ? this can develop within a few days. KNOW YOUR RESPONSIBILITIES It is important to know exactly how much and how often to take the opioid pain medications you are prescribed. Never take opioids in higher amounts or more often than prescribed. Do not combine opioids with alcohol or other drugs that cause drowsiness, such as benzodiazepines, also known as benzos, including diazepam and alprazolam, muscle relaxants or sleep aids. Never sell or share prescription opioids. This is illegal. Store opioids in a secure place and out of reach of others (including children, family, friends and visitors). The last page(s) of this document has been signed and retained as a CHART COPY Signatures Patient Education Materials Corneal Abrasion Medication Leaflets acetaminophen and hydrocodone, polymyxin B and trimethoprim ophthalmic, ketorolac ophthalmic My discharge plan and instructions have been reviewed and explained to me and I,EBEN CRUZ understand my current condition and have read and understand these discharge instructions. I have received a written copy of the plan/instructions. If I have questions, I am aware that I should contact my doctor. 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 Author Type: Physician Type: Progress Notes Filed: 08/11/2022 5:47 PM Note Text: Eben Cruz is a 77 year old MALE who presents with Musculoskeletal Problem (Left leg pain no injury pain x 1 week) HPI PAST MEDICAL HISTORY Diagnosis Date CAD (coronary artery disease) Cardiomyopathy ([facility]) Chronic systolic heart failure ([facility]) Essential hypertension HFrEF (heart failure with reduced ejection fraction) ([facility]) History of cardiac cath 2013 EF 45%, and 50% cx, 30% LAD History of echocardiography 04/2019 EF 35-40%. Mod LV cavity enlargement, mod left atrial and mild right atrial enlargement, mild MR, mild TR, normal right-sided systolioc pressure. History of stress test 2018 39 large inf scar Mixed hyperlipidemia Myocardial infarction with cardiac rehabilitation ([facility]) ACTIVE PROBLEM LIST Cardiomyopathy ([facility]) History of Echocardiography Cad (Coronary Artery Disease) History of Cardiac Cath History of Stress Test Mixed Hyperlipidemia Essential Hypertension Non-Smoker Sob (Shortness of Breath) Dizziness Current Outpatient Medications Medication Sig Dispense Refill traMADol (ULTRAM) 50 mg tablet Take 1 tablet by mouth every 8 hours as needed for pain for up to [address] WHILE USING 15 tablet 0 tiZANidine (ZANAFLEX) 4 mg tablet Take 1 tablet by mouth every 8 hours as needed for up to 3 days. 9 tablet 0 dexAMETHasone (DECADRON) 4 mg tablet Take 1 tablet by mouth once daily for 4 days. 4 tablet 0 simvastatin (ZOCOR) 10 mg tablet TAKE 1 TABLET BY MOUTH EVERYDAY AT BEDTIME 90 tablet 1 metoprolol succinate ER (TOPROL XL) 25 mg 24 hr tablet TAKE 1 TABLET BY MOUTH EVERYDAY AT BEDTIME 90 tablet 1 ascorbic acid, vitamin C, (VITAMIN C) 500 mg tablet Take 500 mg by mouth once daily. MAGNESIUM OXIDE ORAL Take 1,000 mg by mouth. Take every 2-3 days saw jack hall xtr-zinc picoli 80-15 mg cap Take 1 capsule by mouth three times daily. No current facility-administered medications for this visit. Social History Tobacco Use Smoking status: Never Smokeless tobacco: Never Vaping Use Vaping Use: Never used Substance Use Topics Alcohol use: Not Currently Drug use: Never Alcohol Use: Not Currently Tobacco Use: Never FAMILY HISTORY Problem Relation Age of Onset Diabetes Mother Stroke Father Cancer Sister lung Heart disease Brother Diabetes Brother Stroke Brother Review of Systems Musculoskeletal: Positive for back pain and joint pain. BP 145/79 Pulse 89 Temp 97.6 Resp 18 Wt 205 lb (93.0kg) SpO2 96% Physical Exam Musculoskeletal: Comments: Patient has tenderness over the left PSIS down onto the sciatic notch. There is radiation of pain from the sciatic notch down the sciatic nerve onto the leg. The patient has pain following that sciatic nerve. DTRs are +2/4 and capillary refill less than 3 seconds normal motor neurovascular and sensory to the digits. ASSESSMENT/PLAN: 1. Left sided sciatica - ICD9: 724.3, ICD10: M54.32 Sciatica - Bedrest for 2-3 days - Ice for localized tenderness - Warm moist heat for 20 min three times a day - Medrol dose pack - Muscle relaxant- see orders - TRAMADOL 50 MG TABLET - TIZANIDINE 4 MG TABLET - DEXAMETHASONE 4 MG TABLET Dorina D [facility] 08-11-2022 History of Presen t illness Narrative Eben Cruz is a 77 year old MALE who presents with Musculoskeletal Problem (Left leg pain no injury pain x 1 week) HPI PAST MEDICAL HISTORY Diagnosis Date CAD (coronary artery disease) Cardiomyopathy ([facility]) Chronic systolic heart failure ([facility]) Essential hypertension HFrEF (heart failure with reduced ejection fraction) ([facility]) History of cardiac cath 2013 EF 45%, and 50% cx, 30% LAD History of echocardiography 04/2019 EF 35-40%. Mod LV cavity enlargement, mod left atrial and mild right atrial enlargement, mild MR, mild TR, normal right-sided systolioc pressure. History of stress test 2018 39 large inf scar Mixed hyperlipidemia Myocardial infarction with cardiac rehabilitation ([facility]) ACTIVE PROBLEM LIST Cardiomyopathy ([facility]) History of Echocardiography Cad (Coronary Artery Disease) History of Cardiac Cath History of Stress Test Mixed Hyperlipidemia Essential Hypertension Non-Smoker Sob (Shortness of Breath) Dizziness Current Outpatient Medications Medication Sig Dispense Refill traMADol (ULTRAM) 50 mg tablet Take 1 tablet by mouth every 8 hours as needed for pain for up to [address] WHILE USING 15 tablet 0 tiZANidine (ZANAFLEX) 4 mg tablet Take 1 tablet by mouth every 8 hours as needed for up to 3 days. 9 tablet 0 dexAMETHasone (DECADRON) 4 mg tablet Take 1 tablet by mouth once daily for 4 days. 4 tablet 0 simvastatin (ZOCOR) 10 mg tablet TAKE 1 TABLET BY MOUTH EVERYDAY AT BEDTIME 90 tablet 1 metoprolol succinate ER (TOPROL XL) 25 mg 24 hr tablet TAKE 1 TABLET BY MOUTH EVERYDAY AT BEDTIME 90 tablet 1 ascorbic acid, vitamin C, (VITAMIN C) 500 mg tablet Take 500 mg by mouth once daily. MAGNESIUM OXIDE ORAL Take 1,000 mg by mouth. Take every 2-3 days saw jack hall xtr-zinc picoli 80-15 mg cap Take 1 capsule by mouth three times daily. No current facility-administered medications for this visit. Social History Tobacco Use Smoking status: Never Smokeless tobacco: Never Vaping Use Vaping Use: Never used Substance Use Topics Alcohol use: Not Currently Drug use: Never Alcohol Use: Not Currently Tobacco Use: Never FAMILY HISTORY Problem Relation Age of Onset Diabetes Mother Stroke Father Cancer Sister lung Heart disease Brother Diabetes Brother Stroke Brother Review of Systems Musculoskeletal: Positive for back pain and joint pain. BP 145/79 Pulse 89 Temp 97.6 Resp 18 Wt 205 lb (93.0kg) SpO2 96% Physical Exam Musculoskeletal: Comments: Patient has tenderness over the left PSIS down onto the sciatic notch. There is radiation of pain from the sciatic notch down the sciatic nerve onto the leg. The patient has pain following that sciatic nerve. DTRs are +2/4 and capillary refill less than 3 seconds normal motor neurovascular and sensory to the digits. ASSESSMENT/PLAN: 1. Left sided sciatica - ICD9: 724.3, ICD10: M54.32 Sciatica - Bedrest for 2-3 days - Ice for localized tenderness - Warm moist heat for 20 min three times a day - Medrol dose pack - Muscle relaxant- see orders - TRAMADOL 50 MG TABLET - TIZANIDINE 4 MG TABLET - DEXAMETHASONE 4 MG TABLET Dorina Molina documented in this encounter [facility] 06-15-2022 Miscellaneous Notes Patient calls requesting refill: Requested Prescriptions Pending Prescriptions Disp Refills simvastatin (ZOCOR) 10 mg tablet 90 tablet 1 Sig: TAKE 1 TABLET BY MOUTH EVERYDAY AT BEDTIME metoprolol succinate ER (TOPROL XL) 25 mg 24 hr tablet 90 tablet 1 Sig: TAKE 1 TABLET BY MOUTH EVERYDAY AT BEDTIME Date of last visit:03/24/22 Phone #: [phone] (home) The patients preferred pharmacy has been captured for this encounter? yes documented in this encounter [facility] 03-24-2022 Note HNO ID: [id number] Author: Uriel Sellers, DO Service: ? Author Type: Physician Type: Progress Notes Filed: 03/25/2022 5:01 AM Note Text: Today's EKG is sinus referring Provider: No ref. provider found Date: March 24, 2022 Chief Complaint: Follow Up HISTORY OF PRESENT ILLNESS: Eben Cruz is a 77 year old male who presents for Follow Up. ALLERGIES Allergen Reactions Entresto [Sacubitri* Cough Throat sensation, cough PAST MEDICAL HISTORY: PAST MEDICAL HISTORY Diagnosis Date CAD (coronary artery disease) Cardiomyopathy ([facility]) Essential hypertension HFrEF (heart failure with reduced ejection fraction) ([facility]) History of cardiac cath 2013 EF 45%, and 50% cx, 30% LAD History of echocardiography 04/2019 EF 35-40%. Mod LV cavity enlargement, mod left atrial and mild right atrial enlargement, mild MR, mild TR, normal right-sided systolioc pressure. History of stress test 2018 39 large inf scar Mixed hyperlipidemia Myocardial infarction with cardiac rehabilitation ([facility]) PAST SURGICAL HISTORY Procedure Laterality Date ARTHRP ACETBLR/PROX FEM PROSTC AGRFT/ALGRFT 1996 ECHO 04/29/2019 EF 35-40% Moderate LV cavity enlargment with moderate reduction in global systolic function. Moderaat L atrial and mild R atrial enlargment. Mild LV regurgitation. Mild Tricuspid regurgitation. HEART CATHETERIZATION 09/29/2013 EF 40*45% Systolic dysfunction. Global Hypokinesis. Luminal irregularities of 30 % mid and distal third right coronary artery. Left Main 20% distal. 50-60% mid circumferance. 30% long throughout the entire proximal and mid portion of left anterioe descending. INGUINAL HERNIA REPAIR HX Left 1990 SHOULDER SURGERY HX 2013, 2014 STRESS TEST LEXISCAN 01/20/2019 EF 39% Abnormal wall motion demonstrating global hypokinesis. 1mm downsloping ST depression suggesting ischemia. FAMILY HISTORY Problem Relation Age of Onset Diabetes Mother Stroke Father Cancer Sister lung Heart disease Brother Diabetes Brother Stroke Brother SOCIAL HISTORY: Tobacco Use: Never Alcohol Use: Not Currently Drug Use: Never Employer And Job Title: None on file Years Of Education Completed: Not specified Marital Status: MEDICATIONS: Current Outpatient Medications Medication Sig metoprolol succinate ER (TOPROL XL) 25 mg 24 hr tablet TAKE 1 TABLET BY MOUTH EVERYDAY AT BEDTIME simvastatin (ZOCOR) 10 mg tablet TAKE 1 TABLET BY MOUTH EVERYDAY AT BEDTIME ascorbic acid, vitamin C, (VITAMIN C) 500 mg tablet Take 500 mg by mouth once daily. MAGNESIUM OXIDE ORAL Take 1,000 mg by mouth. Take every 2-3 days saw palmto frt xtr-zinc picoli 80-15 mg cap Take 1 capsule by mouth three times daily. triamterene-hydroCHLOROthiazide (MAXZIDE-25MG) 37.5-25 mg per tablet Take 1 tablet by mouth once daily. No current facility-administered medications for this visit. I have personally reviewed the patients past medical history including social, family, surgical, diagnostics, and medications. REVIEW OF SYSTEMS: Review of Systems Constitutional: Negative for fatigue and fever. Respiratory: Negative for cough, chest tightness, shortness of breath and wheezing. Cardiovascular: Negative for chest pain, palpitations and leg swelling. Gastrointestinal: Negative for abdominal pain, constipation, diarrhea, nausea and vomiting. Endocrine: Negative for cold intolerance and heat intolerance. Musculoskeletal: Negative for arthralgias and myalgias. Skin: Negative for rash. Neurological: Negative for dizziness, seizures, syncope and light-headedness. Hematological: Does not bruise/bleed easily. Vitals: BP 120/68 (BP Position: Sitting) Pulse 71 Ht 175.3 cm (5' 9 ) Wt 95.3 kg (210 lb) BMI 31.01 kg/m? PHYSICAL EXAMINATION: BP 120/68 (BP Position: Sitting) Pulse 71 Ht 175.3 cm (5' 9 ) Wt 95.3 kg (210 lb) BMI 31.01 kg/m? Last 3 Encounter BP Readings: Date: BP: 01/23/2022 130/78 04/20/2021 148/68 10/18/2020 122/78 Last 3 Encounter Pulse Readings: Date: Pulse: 01/23/2022 95 04/20/2021 101 10/18/2020 76 Last 3 Encounter Wt Readings: Date: Wt: 01/23/2022 94.8 kg (209 lb) 04/20/2021 93 kg (205 lb) 10/18/2020 95.3 kg (210 lb) Physical Exam Vitals reviewed. Constitutional: General: He is not in acute distress. Cardiovascular: Rate and Rhythm: Normal rate and regular rhythm. Pulses: Carotid pulses are 2+ on the right side and 2+ on the left side. Radial pulses are 2+ on the right side and 2+ on the left side. Femoral pulses are 2+ on the right side and 2+ on the left side. Popliteal pulses are 2+ on the right side and 2+ on the left side. Dorsalis pedis pulses are 2+ on the right side and 2+ on the left side. Posterior tibial pulses are 2+ on the right side and 2+ on the left side. Heart sounds: Murmur heard. Systolic murmur is present with a grade of 2/6. Comments: PMI not displaced. 2nd heart sound loud. P (more content not included)... [facility] 03-24-2022 History of Presen t illness Narrative Today's EKG is sinus referring Provider: No ref. provider found Date: March 24, 2022 Chief Complaint: Follow Up HISTORY OF PRESENT ILLNESS: Eben Cruz is a 77 year old male who presents for Follow Up. ALLERGIES Allergen Reactions Entresto [Sacubitri* Cough Throat sensation, cough PAST MEDICAL HISTORY: PAST MEDICAL HISTORY Diagnosis Date CAD (coronary artery disease) Cardiomyopathy ([facility]) Essential hypertension HFrEF (heart failure with reduced ejection fraction) ([facility]) History of cardiac cath 2013 EF 45%, and 50% cx, 30% LAD History of echocardiography 04/2019 EF 35-40%. Mod LV cavity enlargement, mod left atrial and mild right atrial enlargement, mild MR, mild TR, normal right-sided systolioc pressure. History of stress test 2018 39 large inf scar Mixed hyperlipidemia Myocardial infarction with cardiac rehabilitation ([facility]) PAST SURGICAL HISTORY Procedure Laterality Date ARTHRP ACETBLR/PROX FEM PROSTC AGRFT/ALGRFT 1996 ECHO 04/29/2019 EF 35-40% Moderate LV cavity enlargment with moderate reduction in global systolic function. Moderaat L atrial and mild R atrial enlargment. Mild LV regurgitation. Mild Tricuspid regurgitation. HEART CATHETERIZATION 09/29/2013 EF 40*45% Systolic dysfunction. Global Hypokinesis. Luminal irregularities of 30 % mid and distal third right coronary artery. Left Main 20% distal. 50-60% mid circumferance. 30% long throughout the entire proximal and mid portion of left anterioe descending. INGUINAL HERNIA REPAIR HX Left 1990 SHOULDER SURGERY HX 2013, 2014 STRESS TEST LEXISCAN 01/20/2019 EF 39% Abnormal wall motion demonstrating global hypokinesis. 1mm downsloping ST depression suggesting ischemia. FAMILY HISTORY Problem Relation Age of Onset Diabetes Mother Stroke Father Cancer Sister lung Heart disease Brother Diabetes Brother Stroke Brother SOCIAL HISTORY: Tobacco Use: Never Alcohol Use: Not Currently Drug Use: Never Employer And Job Title: None on file Years Of Education Completed: Not specified Marital Status: MEDICATIONS: Current Outpatient Medications Medication Sig metoprolol succinate ER (TOPROL XL) 25 mg 24 hr tablet TAKE 1 TABLET BY MOUTH EVERYDAY AT BEDTIME simvastatin (ZOCOR) 10 mg tablet TAKE 1 TABLET BY MOUTH EVERYDAY AT BEDTIME ascorbic acid, vitamin C, (VITAMIN C) 500 mg tablet Take 500 mg by mouth once daily. MAGNESIUM OXIDE ORAL Take 1,000 mg by mouth. Take every 2-3 days saw palmto frt xtr-zinc picoli 80-15 mg cap Take 1 capsule by mouth three times daily. triamterene-hydroCHLOROthiazide (MAXZIDE-25MG) 37.5-25 mg per tablet Take 1 tablet by mouth once daily. No current facility-administered medications for this visit. I have personally reviewed the patients past medical history including social, family, surgical, diagnostics, and medications. REVIEW OF SYSTEMS: Review of Systems Constitutional: Negative for fatigue and fever. Respiratory: Negative for cough, chest tightness, shortness of breath and wheezing. Cardiovascular: Negative for chest pain, palpitations and leg swelling. Gastrointestinal: Negative for abdominal pain, constipation, diarrhea, nausea and vomiting. Endocrine: Negative for cold intolerance and heat intolerance. Musculoskeletal: Negative for arthralgias and myalgias. Skin: Negative for rash. Neurological: Negative for dizziness, seizures, syncope and light-headedness. Hematological: Does not bruise/bleed easily. Vitals: BP 120/68 (BP Position: Sitting) Pulse 71 Ht 175.3 cm (5' 9 ) Wt 95.3 kg (210 lb) BMI 31.01 kg/m PHYSICAL EXAMINATION: BP 120/68 (BP Position: Sitting) Pulse 71 Ht 175.3 cm (5' 9 ) Wt 95.3 kg (210 lb) BMI 31.01 kg/m Last 3 Encounter BP Readings: Date: BP: 01/23/2022 130/78 04/20/2021 148/68 10/18/2020 122/78 Last 3 Encounter Pulse Readings: Date: Pulse: 01/23/2022 95 04/20/2021 101 10/18/2020 76 Last 3 Encounter Wt Readings: Date: Wt: 01/23/2022 94.8 kg (209 lb) 04/20/2021 93 kg (205 lb) 10/18/2020 95.3 kg (210 lb) Physical Exam Vitals reviewed. Constitutional: General: He is not in acute distress. Cardiovascular: Rate and Rhythm: Normal rate and regular rhythm. Pulses: Carotid pulses are 2+ on the right side and 2+ on the left side. Radial pulses are 2+ on the right side and 2+ on the left side. Femoral pulses are 2+ on the right side and 2+ on the left side. Popliteal pulses are 2+ on the right side and 2+ on the left side. Dorsalis pedis pulses are 2+ on the right side and 2+ on the left side. Posterior tibial pulses are 2+ on the right side and 2+ on the left side. Heart sounds: Murmur heard. Systolic murmur is present with a grade of 2/6. Comments: PMI not displaced. 2nd heart sound loud. Pulmonary: Effort: Pulmonary effort is normal. Breath sounds: Normal breath sounds. Abdominal: General: Abdomen is flat. Bowel sounds are normal. Palpations: Abdomen is soft. Tenderness: There is no abdominal tenderness. Musculoskeletal: Right lower leg: No edema. Left lower leg: No edema. Skin: General: Skin is warm. Findings: No rash or wound. Neurological: Mental Status: He is alert and oriented to person, place, and time. Coordination: Coordination is intact. LABS: No results found for: GLUC, K, NA, CHLOR, CO2, CREAT, BUN, ANION, CA, TPROT, ALB, TBILI, ALKPHOS, AST, ALT No results found for: HB, HCT, WBC No results found for: CHOL, HDL, LDL, TG EKG: DIAGNOSTIC TEST RESULTS: Recent Results (from the past 24 hour(s)) ECG COMPLETE Collection Time: 03/24/22 7:08 AM Result Value Ref Range Ventricular Rate 71 BPM Atrial Rate 71 BPM P-R Interval 216 ms QRS Duration 92 ms QT Interval 384 ms QTC Calculation (Bazett) 417 ms Calculated P [place] 63 degrees Calculated R [place] 26 degrees Calculated T [place] 36 degrees Narrative NAME : EBEN CRUZ PID : [id number] : 1945 Gender : Male Race : ORD : [id number] Procedure Date : Mar 24 2022 07:08:06 Edit Date : Mar 24 2022 07:08:19 Diagnosis: SINUS RHYTHM WITH 1ST DEGREE AV BLOCK WITH OCCASIONAL PREMATURE VENTRICULAR COMPLEXES NONSPECIFIC T WAVE ABNORMALITY ABNORMAL ECG WHEN COMPARED WITH ECG OF 23-JAN-2022 14:16, CRITERIA FOR INFERIOR MYOCARDIAL INFARCTION ARE NO LONGER PRESENT T WAVE INVERSION NO LONGER EVIDENT IN INFERIOR LEADS NONSPECIFIC T WAVE ABNORMALITY, WORSE IN LATERAL LEADS Test Reason : Location : 621 : [facility] Overread By : , Edited By : , Referred By : URIEL SELLERS Acquired by : [id number], Impression SINUS RHYTHM WITH 1ST DEGREE AV BLOCK WITH OCCASIONAL PREMATURE VENTRICULAR COMPLEXES NONSPECIFIC T WAVE ABNORMALITY ABNORMAL ECG WHEN COMPARED WITH ECG OF 23-JAN-2022 14:16, CRITERIA FOR INFERIOR MYOCARDIAL INFARCTION ARE NO LONGER PRESENT T WAVE INVERSION NO LONGER EVIDENT IN INFERIOR LEADS NONSPECIFIC T WAVE ABNORMALITY, WORSE IN LATERAL LEADS ASSESSMENT/PLAN: 1. Dizziness - ICD9: 780.4, ICD10: R42 (primary diagnosis) Will stop maxzide. Offered to order a CT for pt. He does not want it at this time. He will call if he changes his mind. 2. Essential hypertension - ICD9: 401.9, ICD10: I10 Target systolic BP 140 or less and diastolic BP 90 or less. - ECG COMPLETE today's EKG is sinus 3. Mixed hyperlipidemia - ICD9: 272.2, ICD10: E78.2 Pt is on chronic medication. This is managed by another physician. 4. Coronary artery disease involving ruby coronary artery of ruby heart without angina pectoris - ICD9: 414.01, ICD10: I25.10 EF 45%, and 50% cx, 30% LAD 5. Cardiomyopathy, unspecified type (HCC) - ICD9: 425.4, ICD10: I42.9 6. History of stress test - ICD9: V15.89, ICD10: Z92.89 Jek fraction is less than 40%. Patient has no ischemia. 7. History of cardiac cath - ICD9: V45.89, ICD10: Z98.890 EF 45%, and 50% cx, 30% LAD heart cath was done in 2013 denies any chest discomfort at this time. 2019 test stress scar no signs of ischemia J 8. Non-smoker - ICD9: V49.89, ICD10: Z78.9 Pt has never been a smoker. I, Lidia Manuel MA, scribing for Dr. Uriel Sellers. Follow up in: Prior to entering the room, I reviewed the last progress note including the diagnosis and plan of action. When available, I then reviewed the last heart catheterization, stress test, echocardiogram and EKG. I proceeded to review the medial therapy and any side effects the patient may have had in the past. I was able to look at the last several EKGs. A new EKG was performed today and an interetation was performed. I reviewed its interpretation with the family and compared it to the previous EKGs that we have in the medical records. Changes were described to the patient. In a pictorial format; I described the IN and QRS intervals. This was to show the effects of antiarrhythmic therapy on the electrical system. I was able to look at the past several EKG's. A new EKG was performed today and interpretation was noted. I reviewed this interpretation with the patient, and the family when available, and compared it to the previous EKG's that we have in the medical record. Since my office visit was carried out with a scribe, while in the exam room I was able to devote one hundred percent of my time in [id number] conversation with the patient. I answered all the questions and explained the diagnosis of HFrEF . Greater that 51% of my time was spent with [id number] conversation with the patient. I have discussed the recommended treatment, alternative therapies and other options in detail. I've discussed the best benefit and side effects of these recommended treatments. I've attempted to answer all the questions to the patient's satisfaction and understanding. With approval, we would recommend an pursue the current therapy such as no change. After leaving the exam room, I went back into the patient's chart and coordinated care with my nurse ordering the proper testing and medicinal changes. Letter was performed with voice recognition algorithms and sent to the referring team. The chart was completed. Including the pre-exam, exam and post-exam, the total time spent in the patient's management was greater than 15 minutes I, Dr. Uriel Sellers, have reviewed and agree with the information in the medical record. Uriel Sellers DO documented in this encounter [facility] 11-21-2021 Miscellaneous Notes Pharmacy faxes requesting refill: Pending Prescriptions Disp Refills METOPROLOL SUCCINATE ER 25 MG TABLET,EXTENDED RELEASE 24 HR 90 tablet 1 Sig: TAKE 1 TABLET BY MOUTH EVERYDAY AT BEDTIME JEEVAN: Yes Date of last visit:04/20/21 Phone #: [phone] (home) [phone] (cell) The patients preferred pharmacy has been captured for this encounter? yes documented in this encounter [facility] 08-26-2021 Miscellaneous Notes Pharmacy faxes requesting refill: Pending Prescriptions Disp Refills SIMVASTATIN 10 MG TABLET 90 tablet 3 Sig: TAKE 1 TABLET BY MOUTH EVERYDAY AT BEDTIME JEEVAN: Yes Date of last visit:04/20/2021 Phone #: [phone] (home) [phone] (cell) The patients preferred pharmacy has been captured for this encounter? yes documented in this encounter [facility] Evaluation + Plan note No data available for this section [facility] Left sided sciatica- Primary Sciatica [facility] Essential hypertension- Primary Unspecified essential hypertension Hyperlipidemia LDL goal <70 Other and unspecified hyperlipidemia HFrEF (heart failure with reduced ejection fraction) (HCC) Heart failure, unspecified History of cardiac cath Other postprocedural status History of echocardiography History of stress test Other specified conditions influencing health status History of Holter monitoring Other postprocedural status Non-smoker Other specified conditions influencing health status documented in this encounter [facility] Discharge instructions No data available for this section [facility] Progress note No data available for this section [facility] Reason for referral (narrative)* Outpatient Procedure (Routine) - Closed Specialty Diagnoses / Procedures Referred By Contac t Referred To Contact [facility] [place] Diagnoses Essential hypertension Procedures ECG COMPLETE ECG ROUTINE ECG W/LEAST 12 LDS W/I&R Uriel Sellers DO [address] [place] [address] [facility] [place] [address] [place] [id number] Referral ID Status Reason Start Date Expiration Date V isits Requested Visits Authorized [id number] Closed Auto-Generate d Referral 03/16/2022 03/16/2023 1 1 [facility] for referral (narrative)* Outpatient Procedure (Routine) - Closed Specialty Diagnoses / Procedures Referred By Contbecky t Referred To Contact [facility] [place] Diagnoses Essential hypertension Procedures ECG COMPLETE ECG ROUTINE ECG W/LEAST 12 LDS W/I&R Uriel Sellers DO [facility] [address] [address] [facility] [address] [address] Referral ID Status Reason Start Date Expiration Date V isits Requested Visits Authorized [id number] Closed Auto-Generate d Referral 01/12/2023 01/12/2024 1 1 [facility] Summary Purpose Family History No Family History Records FoundNo Family History Records FoundNo Family History Records Found No data available for this section No Family History Records Found Advance Directives No Advanced Directives Records FoundNo Advanced Directives Records FoundNo Advanced Directives Records FoundNo Advanced Directives Records Found Additional Source Comments (unrecognized sect ion and content) No Status Records FoundNo Status Records FoundNo Status Records FoundNo Status Records Found INFORMATION SOURCE (unrecogn ized section and content) DATE CREATED AUTHOR AUTHOR'S ORGANIZ ATION 08/12/2022 [facility] DATE CREATED AUTHOR AUTHOR'S ORGANIZ ATION 01/27/2023 [facility] DATE CREATED AUTHOR AUTHOR'S ORGANIZ ATION 06/14/2023 [facility] [place] ([place]) Source Comments (unrecognize d section and content) In the event this informatio n is protected by the Federal Confidentiality of Alcohol and Drug Abuse Patient Records regulations: The Federal rules restrict any use of the information to criminally investigate or prosecute any alcohol or drug abuse patient.[facility] the event this information is protected by the Federal Confidentiality of Alcohol and Drug Abuse Patient Records regulations: The Federal rules restrict any use of the information to criminally investigate or prosecute any alcohol or drug abuse patient.[facility] Center[facility] the event this information is protected by the Federal Confidentiality of Alcohol and Drug Abuse Patient Records regulations: The Federal rules restrict any use of the information to criminally investigate or prosecute any alcohol or drug abuse patient.[facility] the event this information is protected by the Federal Confidentiality of Alcohol and Drug Abuse Patient Records regulations: The Federal rules restrict any use of the information to criminally investigate or prosecute any alcohol or drug abuse patient.[facility] Center[facility] the event this information is protected by the Federal Confidentiality of Alcohol and Drug Abuse Patient Records regulations: The Federal rules restrict any use of the information to criminally investigate or prosecute any alcohol or drug abuse patient.[facility] Center[facility] the event this information is protected by the Federal Confidentiality of Alcohol and Drug Abuse Patient Records regulations: The Federal rules restrict any use of the information to criminally investigate or prosecute any alcohol or drug abuse patient.[facility] Center[facility] the event this information is protected by the Federal Confidentiality of Alcohol and Drug Abuse Patient Records regulations: The Federal rules restrict any use of the information to criminally investigate or prosecute any alcohol or drug abuse patient.[facility] CenterIn the event this information is protected by the Federal Confidentiality of Alcohol and Drug Abuse Patient Records regulations: The Federal rules restrict any use of the information to criminally investigate or prosecute any alcohol or drug abuse patient.[facility] Reason for Visit (unrecogniz ed section and content) Reason Comments Follow Up Reason Onset Date Comments Refill Request 06/15/2022 Reason Comments Musculoskeletal Problem Left leg pain no injury pain x 1 week Reason Comments Established Patient Follow-Up Dizziness, HTN, CAD Care Teams (unrecognized sec tion and content) Transport Driver Relationship Specialty Start Date End Date Sebastián Ahuja MD PCP - General Family Practice 07/16/19 Transport Driver Relationship Specialty Start Date End Date Sebastián Ahuja MD PCP - General Family Medicine 07/16/19 Transport Driver Relationship Specialty Start Date End Date Sebastián Ahuja MD PCP - General Family Medicine 07/16/19 Transport Driver Relationship Specialty Start Date End Date Sebastián Ahuja MD PCP - General Family Medicine 07/16/19 Transport Driver Relationship Specialty Start Date End Date Sebastián Ahuja MD PCP - General Family Medicine 07/16/19 Transport Driver Relationship Specialty Start Date End Date Sebastián Ahuja MD PCP - General Family Medicine 07/16/19 Transport Driver Relationship Specialty Start Date End Date Sebastián Ahuja MD PCP - General Family Medicine 07/16/19 Care Team (unrecognized sect ion and content) Care Team Personnel Name: SEBASTIÁN AHUJA MD Position: P4 Physician - Primary Care Member Role: Primary Care Physician Address: Address: [address] [place] [id number] [place] Care Team Related Persons Name: DANNI CRUZ Address: Home [address] [place] [phone] FOR RECORDS PERTAINING TO PATIENTS WHO ARE OR HAVE BEEN ENROLLED IN A CHEMICAL DEPENDENCY/SUBSTANCEABUSE PROGRAM, SOME INFORMATION MAY BE OMITTED. This clinical summary was aggregated from multiple sources. Caution should be exercised in using it in the provision of clinical care. This summary normalizes information from multiple sources, and as a consequence, information in this document may materially change the coding, format and clinical context of patient data. In addition, data may be omitted in some cases. CLINICAL DECISIONS SHOULD BE BASED ON THE PRIMARY CLINICAL RECORDS. [employer] provides no warranty or guarantee of the accuracy or completeness of information in this document.
--- NOTE | 2023-06-21 12:51 | STRESSREP ---
Stress Test Report Pharmacologic myocardial perfusion stress test. 78-year-old lady with a history of chest pain Resting EKG demonstrates sinus rhythm with a rate of 71 bpm. Resting blood pressure is 124/70 mmHg. 0.4 mg of regadenoson was infused per usual protocol followed by rapid intravenous saline flush injection. Continuous EKG monitoring was performed. The maximum heart rate was 91 bpm which was 65% of max impacted heart rate the maximum workload was 1 metabolic equivalent. At rest there were no ST or T wave changes noted to suggest ischemia and at peak infusion nonspecific ST changes were noted which did not meet the criteria for ischemia. No clinical angina is noted. The final blood pressure was 116/70 mmHg. Myocardial perfusion protocol. 14.1 mCi of technetium 99m sestamibi was injected at rest. 0.4 mg of regadenoson was infused per usual protocol. At peak infusion 44.5 mCi of technetium 99m sestamibi was injected stress images were obtained stress and rest images were reconstructed and compared in the short axis vertical long and horizontal long axis. Gated images were also obtained. Perfusion SPECT analysis: Review of the stress images demonstrate normal uptake of tracer noted in all areas of the myocardium. The resting images similar demonstrated normal uptake of tracer noted in all areas of the myocardium. No areas of reversibility are noted to suggest ischemia and no previous infarct is noted. Gated SPECT analysis: The gated ejection fraction is 53%. Conclusion: Normal pharmacologic myocardial perfusion stress test. Preserved ejection fraction.
== END | disposition home or self-care (01) ==
PROVIDERS: PCP Family Medicine; Referring Provider Nurse Practitioner Gerontology; Visit Provider Nurse Practitioner Gerontology
DX: R07.9 Chest pain, unspecified (principal); R06.09 Other forms of dyspnea
CPT/HCPCS: 78452; 93017; A9500; A4216; J2785

== ENCOUNTER 2023-09-23 12:06 | Inpatient (IN) | payer MEDICARE, SELFPAY ==
[2023-09-23 11:32] VITALS: BP 115/69; PULSE 99; RESP 18; TEMP 36.6; O2SAT 100; BMI 31.9
--- NOTE | 2023-09-23 12:01 | HP.PCM.HOS_ITS ---
HPI - General General Date of Admission: 09/23/23 Date of Service: 09/23/23 Chief Complaint: NSTEMI HPI Narrative TELLO BLANKENSHIP, is a 78 M who presented to [facility] on 09/23/2023 as a direct transfer from [facility] for NSTEMI. Patient seen at bedside on the floor shortly after arrival, daughter present. History obtained from both patient and daughter and chart review of [facility] records. Patient initially presented to [facility] on 09/17 for planned elective left total hip replacement with Dr. Robledo. Was noted to have a fairly complicated procedure requiring wound VAC placement. Patient lives at home and had very good functional status prior to this procedure per the daughter. 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 Patient had fairly significant postop pain, and PT/OT they are recommended that patient go to a skilled rehab facility on discharge prior to returning home. It appears that patient was transition to the [facility] TCU (SNF) program on afternoon of 09/21. On the morning of 09/22 around 4 AM, patient became acutely short of breath. Was noted that his vital signs were stable and he was not hypoxic at that time. Stat labs were ordered and he was noted to have a D-dimer of 2557 and troponin of 6365. EKG showed sinus tachycardia with ST depressions, unclear if changed from previous. CTA chest was negative for PE, only showed small bilateral pleur al effusions. Patient notably denied any chest pain, diaphoresis or nausea during that time. Given concern for NSTEMI and because patient has follow-up with [facility] in the recent past as noted below, patient was transferred to [facility] for further management. Further history obtained from patient/daughter and last cardiology office visit note on 06/19/2023. Patient presented to the [facility] ED on 04/27/2023 with strokelike symptoms. Was given tenecteplase in the ED and admitted to the ICU. Was hospitalized from 04/27 to 04/29. Was found on CTA head and neck to have high- grade stenosis of the right ECA. MRI brain showed a mild acute right parietal infarct. Teleneurology followed and patient was discharged on aspirin and Plavix for 90 days then baby aspirin indefinitely. During that hospitalization, patient was also noted to have elevated troponins. Cardiology followed. Echo showed no significant regional wall motion abnormalities. Patient was noted to be asymptomatic from a cardiac standpoint and troponins down trended while. Was noted that patient has a history of CAD with last cardiac cath done in 2013, never required stenting. Had chemical nuclear stress test done on 06/21/2022 that showed preserved EF, normal stress test. Cardiology recommended continuing aspirin, Plavix, atorvastatin and Toprol 50 mg daily, noted that no further workup was needed at that time. During my encounter, patient was sitting up comfortably in bed, conversing normally, in no acute distress. He was mild to moderately fatigued appearing. He denied any left hip pain at rest. He was breathing comfortably on 2 L nasal cannula with oxygen saturations in the high 90s. Was borderline tachycardic with heart rate in the 90s, sinus rhythm. Blood pressure normal. Afebrile. Labs obtained on admission showed hemoglobin 9.5, similar to last value from [facility]. WBC count 10.6. BMP normal. Low albumin at 2.2. BNP 435, mildly increased from 374 back in April 2023. Troponin 6620 (was 6365 on last check at [facility]), repeat pending. EKG showed normal sinus rhythm, mild ST changes concerning for lateral ischemia. Chest x-ray showed chronic interstitial changes with superimposed regular opacification concerning for early infiltrate versus atelectasis. 1. Asthenia Acute, secondary to left total hip arthroplasty on 09/17. Consult placed to PT and OT to evaluate and treat. account services coordinator following for discharge planning. 2. Tachycardia Chronic. Metoprolol increased to 50 mg PO BID with hold parameters. Monitor vital signs per protocol. 3. Anemia Acute on chronic, secondary to recent orthopedic surgery. Repeat CBC on 09/23. Continue ferrous sulfate. 4. BPH - benign prostatic hyperplasia Chronic. Continue current home medication. 5. CAD - Coronary artery disease Chronic. Patient denies any chest pain. Continue home meds. [facility] Medical History Arthritis Hypertension Leaky heart valve Home Medications hydrocodone-acetaminophen 5-325mg 5mg-325mg 1 tab PO Q6H PRN hip pain 04/27/23 [History Last Taken 04/27/23 06:30] aspirin 81 mg tablet,delayed release 81 mg PO BREAKFAST #30 tabs 04/29/23 [Rx Last Taken Unknown] amlodipine 2.5 mg tablet 2.5 mg PO DAILY #90 tabs 05/14/23 [Rx Last Taken Unkn own] atorvastatin 40 mg tablet 40 mg PO QHS #90 tabs 05/14/23 [Rx Last Taken Unknown] clopidogrel 75 mg tablet (Plavix) 75 mg PO DAILY #90 tabs 05/14/23 [Rx Last Taken Unknown] metoprolol succinate 25 mg tablet,extended release 24 hr 50 mg (2 x 25 mg) PO DAILY heart blockage #180 tabs 06/01/23 [Rx Last Taken Unknown] melatonin 10 mg capsule 10 mg PO QHS sleep 09/23/23 [History Last Taken Unknown] Allergy/AdvReac Type Severity Reaction Status Date / Time sacubitril [From Entresto] Allergy Mild cough Verified 06/19/23 10:31 valsartan [From Entresto] Allergy Mild cough Verified 06/19/23 10:31 Social History (Reviewed 06/19/23 @ 10:30 by Petra Villegas SOCIAL HUMAN SERVICES ASSISTANTS, SOCIAL HUMAN SERVICES ASSISTANTS-C) Smoking Status: Never smoker ROS Constitutional Constitutional: Reports fatigue and weakness; Denies chills or fever(s) Eyes Eyes: Denies change in vision Cardiovascular Cardiovascular: Denies chest pain, dyspnea on exertion, edema or lightheadedness Respiratory/Chest Respiratory/Chest: Denies cough, productive cough, shortness of breath at rest or wheezing Gastrointestinal Gastrointestinal: Denies abdominal pain, nausea or vomiting Genitourinary Genitourinary: Denies dysuria Musculoskeletal Musculoskeletal: Reports joint pain Vital Signs Vital Signs Vital Signs: Weight Weight: 98.1 kg Body Mass Index (BMI) 31.9 Physical Exam Const alert, oriented x3 and no apparent distress Constitutional Narrative: Pleasant elderly male, obese, mildly fatigued appearing, otherwise sitting up comfortably in bed, conversing normally, no acute distress. General Appearance: cooperative and comfortable HEENT normocephalic, head/scalp atraumatic, hearing grossly normal bilaterally and nasal mucous membranes and turbinates normal Eyes PERRL, EOMs intact bilaterally and conjunctivae normal Neck full ROM Chest inspection of chest normal Resp normal respiratory effort and no use of accessory muscles Resp Narrative: Breathing comfortably on 2 L nasal cannula. Mildly decreased breath sounds in bilateral bases, no wheezing or crackles noted. Cardio no murmurs and peripheral pulses 2+ throughout Cardio Narrative: Tachycardic, regular rhythm. GI normal to inspection, nondistended, normoactive bowel sounds, soft to palpation, non-tender and non-distended Back/Spine normal ROM Extremity no pedal edema Extremity Narrative: Left hip with wound VAC in place. Skin no rashes or lesions noted Neuro no focal motor deficits Speech: speech normal Psych mental status grossly normal Results Lab / Micro Data 09/23/23 12:27 09/23/23 12:27 Assessment & Plan Assessment/Plan (1) NSTEMI, initial episode of care: PLAN: Plan Patient is an 78-year-old male who presented [facility] on 09/22 as a direct transfer from [facility] for NSTEMI. 1. NSTEMI, history of nonobstructive CAD ? See HPI for further details. Cardiology consulted. Continue heparin drip. Continue home Plavix and atorvastatin, holding home aspirin. Continue home Toprol. Trend troponins. Okay for cardiac diet today, n.p.o. at midnight. Echo ordered. Continue cardiac monitoring. Lipid profile, A1c, TSH ordered. 2. Recent left total hip replacement with debility ? See HPI for details. Does have left hip wound VAC in place. PT/OT/case management consulted. Can consider orthopedics and wound care consults as needed. Scheduled Tylenol for pain control. Per daughter, would like to avoid oxycodone if possible as patient had moderate sedation with oxycodone; would be okay for spot doses of oxycodone 2.5 mg as needed. 3. Concern for pneumonia ? Chest x-ray on admit showed chronic interstitial changes with superimposed lingular opacification suggesting early infiltrate versus atelectasis. Afe brile, hemodynamically stable, WBC count normal on admit. No respiratory symptoms. Respiratory PCR panel and sputum culture ordered. Will hold on antibiotics for now. 4. Acute on chronic anemia ? Hemoglobin 9.5 on admit here, noted to be stable from recent hemoglobin values at OSH. Trend daily CBC. Continue iron supplement. 5. Recent history of CVA with carotid stenosis ? See HPI for details. Continue home Plavix and atorvastatin, holding home aspirin while patient is on heparin drip as noted above. Chronic medical conditions: ? Obesity: BMI 31 on admit. Complicates hospital course, care and prognosis. ? Hypertension: Holding home amlodipine 2.5 mg daily as patient is normotensive to borderline hypotensive on admission. Continue home Toprol. ? GERD: Continue home Pepcid. ? Reported history of BPH with obstructive symptoms: No home medications listed. Monitor for signs of obstruction. DVT prophylaxis: Heparin drip CODE STATUS: Full code, verified Expected disposition: TBD Total clinical time spent by myself addressing the patient's medical issues, reviewing all the data, and collaborating with patient's care team: 55 minutes. Charges/Coding Visit Charges Inpatient E&M: 77755 Init Hosp L2
--- NOTE | 2023-09-23 12:15 | RAD_ITS ---
STUDY: X-RAY CHEST REASON FOR EXAM: Male, 78 years old. hypoxia TECHNIQUE: Single AP portable view of the chest. COMPARISON: 04/27/2023 FINDINGS: EKG leads overlie the chest Chronic interstitial changes noted in both lung black. Right lung is clear, there is lingular atelectasis or early infiltrate. No demonstrated effusion. Normal size heart. Normal mediastinum and niles. Normal visualized pulmonary arteries. Normal visualized aortic arch and descending thoracic aorta. There are diffuse degenerative changes of the visualized thoracic spine. Degenerative arthrosis in the right shoulder, postsurgical changes noted in the left humerus free of complication There is no demonstrated abnormality of the visualized soft tissue structures of the upper abdomen. RAD/Chest 1 View (Portable) IMPRESSION: Chronic interstitial changes with superimposed lingular opacification suggesting early infiltrate or atelectasis. Electronically Signed: Segundo Yoder MD at 14:24 EDT ,
--- NOTE | 2023-09-23 12:19 | NURSING ---
Per Daughter, Johnny pt does not receive vaccines.
--- NOTE | 2023-09-23 12:30 | EKG12_ITS ---
Test Reason : Blood Pressure : / mmHG Vent. Rate : 098 BPM Atrial Rate : 098 BPM P-R Int : 180 ms QRS Dur : 090 ms QT Int : 334 ms P-R-T Axes : 055 006 082 degrees QTc Int : 426 ms Normal sinus rhythm with sinus arrhythmia ST & T wave abnormality, consider lateral ischemia Abnormal ECG Confirmed by Gregory Kruse ([id number]), editor magazine MASSIEL SALGADO ([id number]) on 09/24/2023 12:54:08 PM Referred By: FABI Confirmed By:Gregory Kruse
[2023-09-23 12:37] LABS: Absolute Lymphocyte Count 1.44 X10^3/uL (0.83-4.51); Absolute Neutrophil Count 7.7 X10^3/uL (2.0-7.7); Basophil# 0.06 X10^3/uL; Basophil% 0.6 % (0-1); Eosinophils% 1.9 % (0-5); Hematocrit 30.6 % (40-54); Hemoglobin 9.5 g/dL (13.0-16.5); Lymphocyte # 1.44 X10^3/ul (0.83-4.51); Lymphocyte % 13.6 % (19-41); Mean Corpuscular Hgb 30.6 pg (27.0-32.0); Mean Corpuscular Volume 98.7 fL (80-94); Mean Platelet Vol. 10.6 fl (6.2-12.0); Monocyte# 1.13 X10^3/uL; Monocyte% 10.6 % (0-10); NRBC Flagged by Analyzer 0 % (0-5); Neutrophil # 7.74 X10^3/uL (2.7-7.7); Neutrophil % 72.8 % (47-70); Platelet Count 266 K/mm3 (150-450); RBC Distribution Width CV 12.9 % (11.6-14.6); RBC Distribution Width SD 45.7 fl (35.1-43.9); White Blood Count 10.6 K/mm3 (4.4-11.0)
[2023-09-23 12:53] LABS: BNP,B-Type NATRIURETIC PEPTIDE 435.6 pg/mL (0-100)
[2023-09-23 13:03] VITALS: O2SAT 97
[2023-09-23 13:14] LABS: Partial Thromboplast Time 42.8 Seconds (24.1-36.2)
[2023-09-23 13:25] LABS: ALB/GLOB Ratio 0.6 RATIO (0.9-2.4); AST(SGOT) 58 U/L (15-37); Alanine Aminotransfer ALT/SGPT 31 U/L (16-61); Albumin, Serum 2.2 g/dL (3.2-5.0); Alkaline Phosphatase 71 U/L (45-117); Anion Gap 5 (5-15); BUN 31 mg/dL (7-18); BUN/Creat Ratio 33.7 RATIO (10-20); Calcium,Total 8.3 mg/dL (8.5-10.1); Chloride 110 mmol/L (98-107); Cholesterol 93 mg/dL (200); Creatinine, Serum 0.92 mg/dL (0.70-1.30); EST Glomerular Filtration Rate 84 mL/min (>60); Est Glom Filt Rate - Afr Amer 102 mL/min (>60); Estimated Creatinine Clearance 73.97 ml/min; Globulin 3.9 g/dL (2.2-4.2); Glucose 100 mg/dL (74-106); High Density Lipoprotein 35 mg/dL; Potassium 4.6 mmol/L (3.5-5.1); Protein, Total 6.1 g/dL (6.4-8.2); Sodium Level 141 mmol/L (136-145); Thyroid Stim Hormone (TSH) 2.56 uIU/mL (0.358-3.74); Triglycerides 96 mg/dL; Troponin-I HS 6620 pg/mL (3.0-78.0); Very Low Density Lipoprotein 19 mg/dL (5-40)
[2023-09-23 13:46] LABS: Hemoglobin A1c 5.4 % (3.8-5.6)
[2023-09-23] MEDS: Acetaminophen 500 MG Tablet 1000 MG PO ×2 (13:54→20:55)
[2023-09-23] MEDS: Heparin Injection (Vial) 5,000 UNIT/ML VIAL 7500 UNIT IV (13:54)
[2023-09-23] MEDS: HEPARIN/D5w 25,000 UNITS 25,000 UNITS/250 ML IV.SOLN. 14 UNITS CONT INF (13:55)
[2023-09-23 14:37] VITALS: BP 115/69; PULSE 99; RESP 18; TEMP 36.6; O2SAT 100
[2023-09-23 16:30] VITALS: BP 120/59; PULSE 92; RESP 17; TEMP 36.6; O2SAT 99
--- NOTE | 2023-09-23 16:55 | PCM.CONS.C ---
Assessment & Plan Assessment/Plan (1) NSTEMI, initial episode of care: PLAN: Start on aspirin. Continue clopidogrel. Nitrates. Continue heparin. Beta-blockers. Check echocardiogram. Recommend coronary angiography with possible revascularization. Risks benefits and alternatives discussed with patient in presence of his daughter. They understand and wish to proceed. (2) CAD (coronary artery disease): PLAN: History of nonobstructive coronary artery disease diagnosed on coronary angiography in 2013. See #1 above. (3) Hypertension: PLAN: Beta-blockers, diuretics. Nitrates. (4) Dyslipidemia: PLAN: On atorvastatin. (5) History of CVA (cerebrovascular accident): PLAN: Aspirin and Plavix. (6) Edema of left lower extremity: PLAN: Recent hip surgery. Will check Doppler ultrasound to rule out DVT. HPI Consult Data Date of Consult: 09/23/23 HPI Narrative Reason for Consultation: NSTEMI HPI Narrative: 78-year-old gentleman with past medical history significant for hypertension, dyslipidemia and CVA. This last Sunday, he has had total left hip replacement surgery done at [facility]. This morning, he complained of shortness of breath. Labs were drawn. He was noted to have elevated D-dimers and troponins. A CT angio of the chest was negative for pulmonary embolism. He has been transferred to our facility for further evaluation and management. Patient denies any chest pains. According to him, his shortness of breath has resolved. Per patient, he has had coronary angiography done at [place] in 2013. He was told that he had some disease but not severe. [facility] Medical History (Updated 09/23/23 @ 17:[address] Faizan Jackman MD) Arthritis Hypertension Leaky heart valve Home Medications hydrocodone-acetaminophen 5-325mg 5mg-325mg 1 tab PO Q6H PRN hip pain 04/27/23 [History Last Taken 04/27/23 06:30] aspirin 81 mg tablet,delayed release 81 mg PO BREAKFAST #30 tabs 04/29/23 [Rx Last Taken Unknown] amlodipine 2.5 mg tablet 2.5 mg PO DAILY #90 tabs 05/14/23 [Rx Last Taken Unknown] atorvastatin 40 mg tablet 40 mg PO QHS #90 tabs 05/14/23 [Rx Last Taken Unknown] clopidogrel 75 mg tablet (Plavix) 75 mg PO DAILY #90 tabs 05/14/23 [Rx Last Taken Unknown] metoprolol succinate 25 mg tablet,extended release 24 hr 50 mg (2 x 25 mg) PO DAILY heart blockage #180 tabs 06/01/23 [Rx Last Taken Unknown] melatonin 10 mg capsule 10 mg PO QHS sleep 09/23/23 [History Last Taken Unknown] Allergy/AdvReac Type Severity Reaction Status Date / Time sacubitril [From Entresto] Allergy Mild cough Verified 06/19/23 10:31 valsartan [From Entresto] Allergy Mild cough Verified 06/19/23 10:31 Social History (Reviewed 06/19/23 @ 10:30 by Petra Villegas SERGING MACHINE OPERATOR, SERGING MACHINE OPERATOR-C) Smoking Status: Never smoker Physical Exam Narrative Comfortable. No apparent distress. Lying flat in the bed. Heart sounds 1 and 2 are normal. Chest examination shows few bibasilar crepitations. Alert oriented x 3. No ankle edema right lower extremity. 2+ edema left lower extremity. Risk Stratification Risk Stratification Applicable: No Objective Data Vital Signs: Vital Signs Temp Pulse Resp BP Pulse Ox O2 Del Method O2 Flow Rate 97.8 F 99 18 115/69 100 Nasal Cannula 2 09/23/23 14:37 09/23/23 14:37 09/23/23 14:37 09/23/23 14:37 09/23/23 14:37 09/23/23 15:39 09/23/23 15:39 Oxygen Flow Rate (L/min) 2 Oxygen Delivery Method Nasal Cannula Weight: 216 lb 4.375 oz Body Mass Index (BMI) 31.9 Lab / Micro Data 09/23/23 12:27 09/23/23 12:27 Labs: Laboratory Results - last 24 hr 09/23/23 12:20: Hemoglobin A1c 5.4 09/23/23 12:27: WBC 10.6, RBC 3.10 L, Hgb 9.5 L, Hct 30.6 L, MCV 98.7 H, MCH 30.6, MCHC 31.0 L, RDW Std Deviation 45.7 H, RDW Coeff of Santiago 12.9, Plt Count 266, MPV 10.6, Immature Gran % (Auto) 0.500, Neut % (Auto) 72.8 H, Lymph % (Auto) 13.6 L, Tama % (Auto) 10.6 H, Eos % (Auto) 1.9, Baso % (Auto) 0.6, Absolute Neuts (auto) 7.7, Absolute Lymphs (auto) 1.44, Nucleated RBC % 0, Sodium 141, Potassium 4.6, Chloride 110 H, Carbon Dioxide 26.0, Anion Gap 5, BUN 31 H, Creatinine 0.92, Estim Creat Clear Calc 73.97, Est GFR (MDRD) Af Amer 102, Est GFR (MDRD) Non-Af 84, BUN/Creatinine Ratio 33.7 H, Glucose 100, Calcium 8.3 L, Total Bilirubin 0.80, AST 58 H, ALT 31, Alkaline Phosphatase 71, Troponin I High Sens 6620 H*, B-Natriuretic Peptide 435.6 H, Total Protein 6.1 L, Albumin 2.2 L, Globulin 3.9, Albumin/Globulin Ratio 0.6 L, Triglycerides 96, Cholesterol 93, LDL Cholesterol 39, VLDL Cholesterol 19, HDL Cholesterol 35 L, TSH 2.56 09/23/23 13:00: APTT 42.8 H Rhythm Strip Rhythm Strip: Sinus Rhythm Cardiology Labs/Tests 09/23/23 12:20: Hemoglobin A1c 5.4 09/23/23 12:27: WBC 10.6, RBC 3.10 L, Hgb 9.5 L, Hct 30.6 L, MCV 98.7 H, MCH 30.6, MCHC 31.0 L, Plt Count 266, MPV 10.6, Immature Gran % (Auto) 0.500, Neut % (Auto) 72.8 H, Lymph % (Auto) 13.6 L, Tama % (Auto) 10.6 H, Eos % (Auto) 1.9, Baso % (Auto) 0.6, Absolute Neuts (auto) 7.7, Nucleated RBC % 0, Sodium 141, Potassium 4.6, Chloride 110 H, Carbon Dioxide 26.0, Anion Gap 5, BUN 31 H, Creatinine 0.92, Est GFR (MDRD) Af Amer 102, Est GFR (MDRD) Non-Af 84, BUN/Creatinine Ratio 33.7 H, Glucose 100, Calcium 8.3 L, Total Bilirubin 0.80, B-Natriuretic Peptide 435.6 H, Triglycerides 96, Cholesterol 93, LDL Cholesterol 39, VLDL Cholesterol 19, HDL Cholesterol 35 L 09/23/23 13:00: APTT 42.8 H Rhythm: EKG: ECG done in our emergency room showed sinus rhythm. Nonspecific ST changes were noted. ECHO: Stress Test: Cardiac Cath: PCI: CT Surgery: Holter monitor: EPS: PPM: CXR: Chest CT Scan: Radiography Diagnostic Testing: Radiology Impression Chest X-Ray 09/23/23 12:15 IMPRESSION: Chronic interstitial changes with superimposed lingular opacification suggesting early infiltrate or atelectasis. Electronically Signed: Segundo Yoder MD at 14:24 EDT ,
--- NOTE | 2023-09-23 17:03 | VDLE_ITS ---
Reason For Study: Elevated D-Dimer RIGHT LEFT GSV is normal. GSV is normal. CFV is compressible, spontaneous, competent CFV is compressible, spontaneous, competent, and demonstrates pulsatile venous flow. and demonstrates pulsatile venous flow. FV is compressible, spontaneous, competent FV is compressible, spontaneous, competent and demonstrates pulsatile venous flow. and demonstrates pulsatile venous flow. POP V is compressible, spontaneous, phasic, POP V is compressible, spontaneous, phasic, competent and demonstrates normal competent and demonstrates normal augmentation. augmentation. T/P Trunk is compressible. T/P Trunk is compressible. PTV is compressible. PTV is compressible. RT PerV is compressible. LT PerV is compressible. Procedure This is a venous duplex using B-mode, color flow and spectral Doppler. Exam performed portable in patient room. The exam was diagnostic. A preliminary report was called and/or faxed to MANAGED CARE DIRECTOR repsonsible for patient. VL/Venous Duplex US - [place] Extrem Interpretation Summary Deep veins of the bilateral lower extremities are patent and compressible segme ntally. There is no evidence of bilateral lower extremity deep vein thrombosis. The bilateral great saphenous veins appear patent and compressible segmentally. Ordering Physician: Faizan Jackman Performed By: Dany Steinberg RVT
--- NOTE | 2023-09-23 17:03 | ECHOCS_ITS ---
Reason For Study: S/P RI Procedure This was a 2D Doppler, Color Flow transthoracic echocardiogram. The study was technically difficult. Contrast injection was performed. Exam performed portable in patient room. Left Ventricle Normal LV size. The left ventricular ejection fraction is 25 %. There is severe global hypokinesis of the left ventricle. Lateral wall in particular appears to be severely hypokinetic. Right Ventricle Normal RV size. Normal systolic function. Atria The left atrium is moderately enlarged. Normal right atrium. Mitral Valve There is mild to moderate mitral annular calcification. Mild-Moderate (1-2+) eccentric mitral valve insufficiency. Tricuspid Valve Normal tricuspid valve. Aortic Valve Trisinus/trileaflet aortic valve. Mild diffuse aortic valve thickening. Pulmonic Valve Normal pulmonic valve. Great Vessels Normal aortic root. Pericardium/Pleural No pericardial effusion. Medication Diluted definity 2ml given slow IV push to enhance endocardial definition. MMode/2D Measurements & Calculations LVIDd: 5.6 cm IVSd: 0.95 cm LVOT diam: 2.2 cm LVIDs: 4.7 cm LVPWd: 0.95 cm RVDd: 3.8 cm FS: 16.8 % LVOT area: 3.9 cm2 LAV(MOD-bp): 92.9 ml LVAd ap4: 49.6 cm2 SV(MOD-sp4): 52.2 ml LAV(MOD-bp) Indexed: 43.5 ml/m2 LVLd ap4: 9.6 cm LAV(MOD-sp2): 80.3 ml EDV(MOD-sp4): 205.9 ml LAV(MOD-sp4): 100.9 ml EDV(sp4-el): 216.3 ml LVAs ap4: 40.9 cm2 LVLs ap4: 8.9 cm ESV(MOD-sp4): 153.6 ml ESV(sp4-el): 160.5 ml EF(MOD-sp4): 25.4 % EF(sp4-el): 25.8 % SV(sp4-el): 55.8 ml LA A4 area: 28.7 cm2 LA dimension(2D): 3.8 cm RA A4 area: 17.3 cm2 TAPSE: 2.2 cm Doppler Measurements & Calculations MV E max alaina: 89.2 cm/sec Ao V2 max: 146.4 cm/sec LV V1 max: 77.0 cm/sec Ao max P.7 mmHg LV V1 max P.4 mmHg Ao V2 mean: 88.8 cm/sec LV V1 mean P.1 mmHg Ao mean P.0 mmHg LV V1 mean: 46.7 cm/sec Ao V2 VTI: 19.4 cm LV V1 VTI: 12.8 cm AV (velocity ratio): 0.66 YAMIL(I,D): 2.6 cm2 YAMIL(V,D): 2.0 cm2 SV(LVOT): 49.5 ml PA V2 max: 90.1 cm/sec PA V2 mean: 63.7 cm/sec ECHO/Echo Complete W/ Contrast Interpretation Summary The left ventricular ejection fraction is 25 %. Normal LV size. Lateral wall in particular appears to be severely hypokinetic Mild-Moderate (1-2+) eccentric mitral valve insufficiency. Contrast injection was performed. Ordering Physician: Faizan Jackman Referring Physician: IWONA AHUJA Performed By: Siri Chauhan RCS
[2023-09-23] MEDS: oxyCODONE 5 MG Tablet 2.5 MG PO (18:10)
[2023-09-23] MEDS: Nitroglycerin Oint 1 INCH PACKET TD ×2 (18:11→20:48)
[2023-09-23] MEDS: Aspirin E.C. 81 MG Tablet PO (18:12)
[2023-09-23] MEDS: Furosemide 20 MG Tablet PO (18:12)
[2023-09-23 19:49] LABS: Partial Thromboplast Time 99.7 Seconds (24.1-36.2)
[2023-09-23 20:46] VITALS: BP 130/80; PULSE 107; RESP 16; TEMP 36.8; O2SAT 96
[2023-09-23] MEDS: MELATONIN 10 MG TABLET PO (20:56)
[2023-09-23] MEDS: Atorvastatin Calcium 40 MG Tablet PO (20:56)
[2023-09-24] VITALS (17 sets, daily range): BP systolic 81–114; BP diastolic 60–82; PULSE 74–110; RESP 12–29; TEMP 36.6–36.9; O2SAT 91–100
[2023-09-24 03:17] LABS: Hematocrit 28.4 % (40-54); Hemoglobin 9.1 g/dL (13.0-16.5); Mean Corpuscular Volume 96.6 fL (80-94); Mean Platelet Vol. 10.3 fl (6.2-12.0); Platelet Count 258 K/mm3 (150-450); RBC Distribution Width CV 12.7 % (11.6-14.6); RBC Distribution Width SD 44.9 fl (35.1-43.9); Red Blood Count 2.94 M/mm3 (4.6-6.2); White Blood Count 8.3 K/mm3 (4.4-11.0)
[2023-09-24 03:27] LABS: Partial Thromboplast Time 53.6 Seconds (24.1-36.2)
[2023-09-24 03:37] LABS: Anion Gap 4 (5-15); BUN 31 mg/dL (7-18); BUN/Creat Ratio 30.7 RATIO (10-20); Calcium,Total 8.5 mg/dL (8.5-10.1); Chloride 110 mmol/L (98-107); Creatinine, Serum 1.01 mg/dL (0.70-1.30); EST Glomerular Filtration Rate 75 mL/min (>60); Est Glom Filt Rate - Afr Amer 91 mL/min (>60); Estimated Creatinine Clearance 67.38 ml/min; Glucose 133 mg/dL (74-106); Potassium 4.1 mmol/L (3.5-5.1); Sodium Level 140 mmol/L (136-145)
[2023-09-24] MEDS: Heparin Injection (Vial) 5,000 UNIT/ML VIAL IV (05:12)
[2023-09-24] MEDS: Acetaminophen 500 MG Tablet 1000 MG PO ×3 (05:14→20:02)
[2023-09-24] MEDS: Nitroglycerin Oint 1 INCH PACKET TD (05:15)
[2023-09-24 05:22] LABS: Magnesium 2.1 mg/dL (1.6-2.6); Troponin-I HS 6505 pg/mL (3.0-78.0)
[2023-09-24] MEDS: Clopidogrel Bisulfate 75 MG Tablet PO (07:37)
[2023-09-24] MEDS: Metoprolol(XL)Succ 50 MG Tablet PO (07:37)
[2023-09-24] MEDS: Aspirin E.C. 81 MG Tablet PO (07:37)
--- NOTE | 2023-09-24 09:06 | CASEMGMT ---
Tertiary facilities in-network with patient's insurance: [facility], [facility], [place], [facility], , Judith Plata, [facility]
--- NOTE | 2023-09-24 09:33 | CL.I_ITS ---
Patient Name: TELLO BLANKENSHIP Study Date: 09/24/2023 Performing: Faizan Jackman MD Ht: 69 inches 175.26 cm : 1945 Wt: 216.27 lbs 98.1 kg Age: 78 Gender: male BSA: 2.14 PROCEDURE(S) PERFORMED DC02-(09430)LHC/COR IC12-(65394/C9600)NORIS W/WO PTCA, SINGLE CORONARY ARTERY CLINICAL PROFILE AND CO-MORBIDITIES Indications: ACS <= 24 hrs Heart Failure: None CAD Presentations: Non-STEMI. Symptom onset Date/Time: 09/23/2023 Time Not Available CONCLUSIONS Sub-total, heavily calcified Prox LCX. Unable to cross with wire 50% distal LMCA 50% calcified ostial LAD; 70% calcified ostial D1 80% heavily calcified ostial and Prox RCA Unsuccessful PCI of the sub-total heavily calcified Prox LCX RECOMMENDATIONS Medical therapy DESCRIPTION OF PROCEDURE The patient arrived to the procedure lab. The risks and benefits of the procedure as well as a full description of our services here and lack of surgical backup were fully explained to the patient and/or their significant other prior to the catheterization. The Timeout was completed, verifying the correct patient and procedure. The patient's procedural site was prepped and draped in the usual fashion. Local anesthetic was given subcutaneously to right radial region with Lidocaine 2%. Using a modified Seldinger technique, arterial access was obtained via the right radial artery, a 6Fr sheath was inserted.. Left Coronary Artery selective angiography was performed in multiple views using a 5 Fr. 4.0 Delray catheter. Right Coronary Artery selective angiography was then performed in multiple views using a 5 Fr. 4.0 Delray catheter. Left Coronary Artery selective angiography was performed in multiple views using a 5 Fr. JL 3 runthrough Guide wire was advanced to the Circumflex. {L1} Guide wire was exchanged for a choice pt XB3 Guide catheter was inserted and engaged into the LCA. Angiogram performed Angiogram performed shinobi Guide wire was advanced to the Circumflex. sprinter legend otw 1.25 x10 Balloon catheter was inserted. Angiogram performed The arterial sheath was pulled and a TR Band was applied for hemostasis 10 ml of air CORONARY ANGIOGRAPHY DOMINANCE: Right Dominant LEFT MAIN: Calcified 50% Distal lesion in LMCA LEFT ANTERIOR DESCENDING ARTERY: LAD: Calcified 50% Ostial lesion in LAD DIAGONAL 1: Calcified 80% Ostial lesion in DIAG1 RIGHT CORONARY ARTERY: RCA: Calcified 80% Ostial lesion in RCA Calcified 65% Distal lesion in RCA RT PDA: Calcified 50% Mid lesion in RT PDA INTERVENTION INFORMATION LESION SITE: Circumflex (Proximal) Lesion Complexity: High/C Pre Stenosis: 99 % Pre intervention REGI flow: 2 PROCEDURE: Attempted PCI Post Stenosis: 99 % Post intervention REGI flow: 2 Lesion Devices: Cordis 6 Fr XB3.0 100cm Guide Catheter Terumo .014 180cm Runthrough Extra Floppy straight Jose Sci EMERGE MR 2.00x08 BALLOON Medtronic SPRINTER LEGEND OTW 1.25x10 BALLOON COMPLICATIONS No Complications PROCEDURE MEDICATIONS Versed 1 mg IV Fentanyl 50 mcg IV Fentanyl 50 mcg IV Versed 2 mg IV Fentanyl 25 mcg IV Oxygen: 2 L/min via nasal cannula Oxygen: 4 L/min via nasal cannula Heparin given IA 09/24/2023 08:07:59 Heparin 7000 unit(s) IV 09/24/2023 08:31:09 Metoprolol 10 mg IV 09/24/2023 08:20:11 Nitro 200 mcg IC 09/24/2023 08:43:48 Nitro 200 mcg IC 09/24/2023 08:55:21 Verapamil 2.5mg, Ntg 200mcgs, 2000 units of Heparin given IA 09/24/2023 08:07:59 IV Fluids: .9 NaCl increased to 500 ml/hr 09/24/2023 08:57:21 IV Fluids: .9 NaCl decreased to 50 ml/hr 09/24/2023 09:08:54 SUMMARY OF HEMODYNAMIC DATA Time AIR REST AO 138/87 (109) SA 08:18:31 AO 132/88 (109) 08:27:34 AO 130/85 (104) 08:34:09 AO 118/73 (92) 08:40:26 AO 128/86 (106) 08:48:27 ECG 09:17:26 09:17:26 Signed By Faizan Jackman MD On 09/24/2023 09:32:30 Faizan Jackman MD
--- NOTE | 2023-09-24 09:49 | NURSING ---
ivf wide open breathing easier moving arms around responding better
--- NOTE | 2023-09-24 10:06 | RAD_ITS ---
STUDY: X-RAY CHEST REASON FOR EXAM: Male, 78 years old. Hypoxia TECHNIQUE: Single AP portable view of the chest. COMPARISON: Comparison is made with prior study dated September 23, 2023. FINDINGS: EKG electrodes are seen. Stable increased markings at the lung bases as well as in the upper lobes worse in the right upper lobe suggestive of scarring. There is no demonstrated pleural abnormality. There is borderline cardiomegaly. Normal mediastinum and niles. Normal visualized pulmonary arteries. There is atherosclerotic calcification of the aortic arch with tortuosity. Normal visualized thoracic spine. 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 Prior cyndi fixation of the left humerus. There is no demonstrated abnormality of the visualized soft tissue structures of the upper abdomen. RAD/Chest 1 View (Portable) IMPRESSION: Stable examination. Electronically Signed: Ramesh Meehan MD at 10:41 EDT ,
[2023-09-24 10:24] LABS: Allen Test Positive; Base Excess -5 mmol/L (-2 to +2); Bicarbonate 19.4 mmol/L (22-26); Blood Gas Specimen Type ART; Mode Not entered; O2 Delivery Device NRB; PO2 105 mmHG (75-100); SITE L Radial; SO2 98 % (95-99); Total Carbon Dioxide 20 mmol/L; pCO2 30.5 mmHg (35-45); pH 7.41 (7.35-7.45)
[2023-09-24 10:33] LABS: BNP,B-Type NATRIURETIC PEPTIDE 394.3 pg/mL (0-100)
--- NOTE | 2023-09-24 10:49 | WOUNDNOTE ---
Pt has Prevena VAC in place. 2 lights still lit up so discussed with nursing that it appears pt has 2 days left on the VAC.
[2023-09-24] MEDS: Furosemide 40 MG/4 ML Vial IV (10:56)
[2023-09-24] MEDS: 0.9% Normal Saline (1000mL) 1,000 ML 75 ML IV (10:57)
--- NOTE | 2023-09-24 11:40 | CPS ---
switched patient to autopap, per Dr. Garcia. Dr. Garcia clarified that she does want autopap and she does want it on the patient now.
--- NOTE | 2023-09-24 12:10 | CASEMGMT ---
LEVI ANGEL Face to Face with patient for initial transition planning/care coordination assessment. LEVI ANGEL introduced self and role at [facility]. Patient lying in bed, alert, oriented, and on Bipap, daughter at bedside. Patient requested daughter complete assessment with CM. Daughter willing to participate in assessment and is able to answer all questions appropriately. Care providers, pharmacy, and demographics verified. PCP: Terry Specialists: Venkat, ortho; Jono, neurologist; PACO, mail room; Preferred Pharmacy: [facility] Insurance: [employer] Prescription Benefit: yes Living Will/HPOA: none LNOK: daughter, son Living Arrangements: Patient lives alone in a 2 story home with bed and bath on first floor, 1 step to enter the home. Patient was independent at home prior to hip replacement last week. Transportation: self, children DME/HHC: Patient has cane, walker, and lift chair. No previous HHC. Patient was currently at [facility] Bed Unit when he was transferred to [facility] due to NSTEMI. Daughter wishes for patient discharge to [facility] Rehab Unit or TCU, daughter declined list. Daughter had no further questions or concerns. SW updated regarding request for RU or TCU Disposition Plan: RU/TCU pending acceptance and precert. Lanette VAUGHAN, RN, CM
[2023-09-24] MEDS: Furosemide 20 MG Tablet PO (12:44)
[2023-09-24] MEDS: Famotidine 20 MG Tablet PO (12:44)
[2023-09-24] MEDS: Enoxaparin 40 MG/0.4 ML Syringe SC (12:46)
--- NOTE | 2023-09-24 15:33 | CPS ---
patient wont wear, physician informed.
--- NOTE | 2023-09-24 15:44 | CASEMGMT ---
Advance Directive Validation: Per nsg documentation, pt stated he did not have either document. Reagan Tolentino RN ACM
--- NOTE | 2023-09-24 17:36 | PCM.PN.HOSP ---
Reason for Visit Reason for Visit: NSTEMI Subjective Subjective Patient is an 78-year-old male who was a direct transfer from [facility] for an NSTEMI on 09/23/2023. He originally presented to [facility] on 09/18/2023 for a planned elective total hip replacement with Dr. Robledo. The procedure was noted to be fairly complicated and required wound VAC placement. 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 Skilled rehab was recommended for discharge and the patient was in the process of transitioning to the [facility] TCU on 09/22/2023 however on the morning of 09/23/2023 he became acutely short of breath and his vital signs were were stable and he was not hypoxic however stat labs were ordered and he was found to have a markedly elevated D-dimer at 2557 and a troponin of 6365. EKG at that time showed sinus tachycardia with ST segment depressions and no previous for comparison. CTA of the chest was negative for PE and showed only small bilateral pleural effusions. He did not have any chest pain, diaphoresis, or nausea/vomiting at that time. Given his troponin elevation and the concern for an NSTEMI he was transferred here for further management. He does follow with cardiology as an outpatient and had a recent stress test on 06/21/2023 that was negative for any inducible ischemia. Upon arrival cardiology was consulted and plan was for catheterization which was done today on 09/24/2023 and noted subtotal heavy calcified proximal left circumflex that was unable to be crossed with a wire, 50% distal LMCA, 50% calcified ostial LAD, 70% calcified ostial D1, and 80% heavily calcified ostial and proximal RCA. Unsuccessful PCI of the subtotal heavily calcified proximal left circumflex was attempted and medical therapy was recommended however I did discuss the case with Dr. Jackman and he plans on talking to [facility] with regards to care. I was called shortly after he returned from his cardiac catheterization at which time he was noted to be hypoxic with oxygen saturations at 79% on room air and appeared somewhat devlin. He was placed on a nonrebreather with improvement in his oxygen saturations and cardiology was called to the bedside. A stat echocardiogram was obtained and found to show an EF of 25% with normal LV size, lateral wall in particular appeared to be severely hypokinetic with mild to moderate mitral valve insufficiency. He was maintained on BiPAP and given some IV fluids. ABG/chest x-ray/BNP were obtained and found to be stable without any acute etiology. Clinically he improved improved and has been weaned to 2 L nasal cannula. Dopplers are pending. Objective Data Objective Data Vital Signs: Vital Signs Temp Pulse Resp BP Pulse Ox O2 Del Method O2 Flow Rate 97.8 F 89 18 98/81 H 95 Nasal Cannula 2 09/24/23 16:51 09/24/23 16:51 09/24/23 16:51 09/24/23 16:51 09/24/23 16:51 09/24/23 16:51 09/24/23 16:51 FiO2 45 09/24/23 11:07 Oxygen Flow Rate (L/min) 2 Oxygen Delivery Method Nasal Cannula Weight: 98.1 kg Body Mass Index (BMI) 31.9 Intake & Output: Intake and Output for Last 24 Hours 09/22/23 09/23/23 09/24/23 23:59 23:59 23:59 Intake Total 83.3 / 503.3 1322.88 / 1322.88 Output Total 450 / 450 Balance 83.3 / 503.3 872.88 / 872.88 Lab / Micro Data 09/24/23 02:55 09/24/23 02:55 Labs: Laboratory Results - last 24 hr 09/23/23 19:25: APTT 99.7 H* 09/24/23 02:55: WBC 8.3, RBC 2.94 L, Hgb 9.1 L, Hct 28.4 L, MCV 96.6 H, MCH 31.0, MCHC 32.0, RDW Std Deviation 44.9 H, RDW Coeff of Santiago 12.7, Plt Count 258, MPV 10.3, APTT 53.6 H, Sodium 140, Potassium 4.1, Chloride 110 H, Carbon Dioxide 26.0, Anion Gap 4 L, BUN 31 H, Creatinine 1.01, Estim Creat Clear Calc 67.38, Est GFR (MDRD) Af Amer 91, Est GFR (MDRD) Non-Af 75, BUN/Creatinine Ratio 30.7 H, Glucose 133 H, Calcium 8.5, Magnesium 2.1, Troponin I High Sens 6505 H*, B-Natriuretic Peptide 394.3 H ABG Data ABG results: ABG 09/24/23 10:20 Specimen Type ART Sample Site L Radial pH 7.41 Bicarbonate Actual 19.4 L Total CO2 20 Base Excess -5 L O2 Saturation 98 O2 % 12.0 ABG pCO2 30.5 L ABG pO2 105 H Rubén Test Positive O2 Delivery Device NRB Vent Mode Not entered Radiography Diagnostic Testing: Radiology Impression Echocardiogram 09/23/23 17:03 Interpretation Summary The left ventricular ejection fraction is 25 %. Normal LV size. Lateral wall in particular appears to be severely hypokinetic Mild-Moderate (1-2+) eccentric mitral valve insufficiency. Contrast injection was performed. Ordering Physician: Faizan Jackman Referring Physician: IWONA AHUJA Performed By: Siri Chauhan RCS Chest X-Ray 09/24/23 10:06 IMPRESSION: Stable examination. Electronically Signed: Ramesh Meehan MD at 10:41 EDT Reading Location ID and State: [address] [place] [address] , Service support , Rhythm Strip Rhythm Strip: Sinus Rhythm Physical Exam Const alert, oriented x3 and well nourished Constitutional Narrative: Older, white male, sitting up in bed, quiet, appears acutely ill but nontoxic HEENT head/scalp atraumatic and moist oral mucous membranes Head and Scalp: normocephalic Eyes PERRL, EOMs intact bilaterally and conjunctivae normal Eyes Narrative: No scleral icterus Neck no lymphadenopathy Neck Narrative: Trachea midline, no thyroid enlargement Resp clear to auscultation bilaterally Resp Narrative: Mild tachypnea Auscultation: Negative for rales, rhonchi or wheezes Cardio regular rate, regular rhythm, S1 normal heart sound, S2 normal heart sound, no murmurs, no rub, no gallops and no clicks GI normal to inspection, nondistended, normoactive bowel sounds, soft to palpation and non-tender Extremity no clubbing, cyanosis or edema Extremity Narrative: Pedal pulses are 2+ Neuro oriented x3, CN's II-XII intact bilaterally, moves all extremities and no focal motor deficits Neuro Narrative: Generalized weakness noted Psych Psych Narrative: Affect is flat which is appropriate for current situation Assessment & Plan Assessment/Plan (1) NSTEMI, initial episode of care: (2) CAD (coronary artery disease): (3) Acute hypoxic respiratory failure: (4) Acute on chronic anemia: PLAN: Plan Acute hypoxic respiratory failure -Suspect multifactorial -EF is depressed/RA looks dilated and will need to rule out PE tomorrow as long as creatinine is stable after contrast given today and patient acutely decompensated after cath -ABG was unremarkable Chest x-ray was unremarkable for acute findings -BNP was elevated however improved from previous -Patient was placed on BiPAP and seems to be clinically improving and now weaned to 2 L nasal cannula -Continue to monitor and will recommend placing on BiPAP overnight -Patient did have negative CTA at outpatient facility however this does not rule out acute PE with his event occurring today -Will continue therapeutic Lovenox for now until can further evaluate Hypotension -This occurred shortly after cath -Was given fluid bolus by cardiology -Will continue to monitor as it appears to be stabilized NSTEMI/hypertension/hyperlipidemia -Cardiac catheterization shows multiple abnormalities however vessel was not able to be traversed -Currently medical management is recommended -Cardiology was going to discuss the case with [facility] to see if they felt that they could do a complex PCI -Should know more tomorrow -Continue aspirin -Plavix is on hold and will restart when okay with cardiology -Metoprolol on hold due to hypotension -Hold home amlodipine -Continue home atorvastatin--> lipid profile was obtained and total cholesterol is 93 with an LDL of 39 -Cardiology following-appreciate input Heart failure with reduced ejection fraction -Blood pressures are currently on the low side so we are unable to initiate any goal-directed therapy -Continue to monitor and initiate goal-directed therapy as able -Echocardiogram done today shows an EF of 25% with wall motion abnormality at the lateral wall and mild to moderate mitral valve insufficiency -Cardiology is following Acute on chronic anemia -Acute component likely related to recent surgical intervention with hip replacement -Hemoglobin appears to be relatively stable -continue to monitor -Transfuse for hemoglobin less than 7 -Appears that patient ran 11-12 prior to surgery Left total hip replacement -Was performed on 09/18/2023 -Wound VAC in place -Wound care is following -Continue scheduled Tylenol -Low-dose as needed oxycodone is available however family would like to avoid oxycodone as possible as it seems to cause significant sedation for him -PT/OT consultation -Plan for discharge to penitentiary facility once medically stable Abnormal chest x-ray -Chest x-ray on admission shows chronic interstitial changes with superimposed lingular opacification concerning for infiltrate versus atelectasis -Overall high suspicion for atelectasis -Continue to monitor -Continue incentive spirometry and add Acapella -Will utilize some noninvasive ventilation for now at night this should help splint open any atelectasis as well History of stroke with bilateral carotid artery stenosis -Plavix on hold -Continue atorvastatin -Continue aspirin -Heparin drip was discontinued however patient is on therapeutic Lovenox until I can further rule out PE GERD -Continue home Pepcid History of BPH with obstruction -Patient is not on any Flomax for this currently -Will monitor especially with recent surgery Obesity -BMI is 31.9 -Recommend weight loss -Complicates treatment, prognosis, outcomes DVT prophylaxis -Continue therapeutic Lovenox for now and transition to subcu Lovenox if no signs of VTE CODE STATUS -Full code is verified on admission Charges/Coding Visit Charges Inpatient E&M: 72669 [facility] L3
[2023-09-24 18:15] LABS: Mucous, Urine 0 SEEN /hpf (<or=2+)
[2023-09-24 18:19] LABS: Glucose, Dipstick Normal (Normal); Ketone-Dipstick Negative (Negative); Leukocyte Esterase-Dipstick 500 /ul (Negative); Nitrite-Dipstick Positive (Negative); Occult Blood-Urine 25 /ul (Negative); Protein-Dipstick 15 mg/dl (Negative); Urine Bilirubin Dipstick Negative (Negative); Urine Clarity Cloudy (Clear); Urine Urobilinogen Normal (Normal)
[2023-09-24 18:34] LABS: Color, Urine YELLOW (Yellow)
[2023-09-24 18:41] LABS: Amorphous Sediment 1+ URATE; Bacteria 1+ /hpf (None Seen); Red Blood Cells-Urine 0-5 SEEN /hpf (0-5); Squamous Epithelial Cells - UA 0-5 SEEN /hpf (0-5); White Blood Cells >100 SEEN /hpf (0-5)
[2023-09-24] MEDS: Atorvastatin Calcium 40 MG Tablet PO (20:02)
[2023-09-24] MEDS: MELATONIN 10 MG TABLET PO (20:02)
[2023-09-24] MEDS: Enoxaparin 100 MG/ML Syringe SC (20:08)
[2023-09-24] MEDS: Metoprolol Tartrate 50 MG Tablet PO (20:08)
[2023-09-25] VITALS (8 sets, daily range): BP systolic 102–111; BP diastolic 71–80; PULSE 78–110; RESP 16–24; TEMP 36.4–36.6; O2SAT 92–98
[2023-09-25] MEDS: Acetaminophen 500 MG Tablet 1000 MG PO (05:39)
[2023-09-25 06:29] LABS: Absolute Lymphocyte Count 1.49 X10^3/uL (0.83-4.51); Basophil# 0.06 X10^3/uL; Basophil% 0.6 % (0-1); Eosinophil# 0.04 X10^3/uL; Eosinophils% 0.4 % (0-5); Hematocrit 31.8 % (40-54); Lymphocyte # 1.49 X10^3/ul (0.83-4.51); Lymphocyte % 13.9 % (19-41); Mean Corp Hgb Conc 31.4 g/dL (32-36); Mean Corpuscular Hgb 30.7 pg (27.0-32.0); Mean Corpuscular Volume 97.5 fL (80-94); Mean Platelet Vol. 10.9 fl (6.2-12.0); Monocyte# 1.04 X10^3/uL; Monocyte% 9.7 % (0-10); NRBC Flagged by Analyzer 0 % (0-5); Neutrophil # 8.02 X10^3/uL (2.7-7.7); Neutrophil % 74.6 % (47-70); Platelet Count 330 K/mm3 (150-450); RBC Distribution Width SD 46.5 fl (35.1-43.9); Red Blood Count 3.26 M/mm3 (4.6-6.2); White Blood Count 10.7 K/mm3 (4.4-11.0)
[2023-09-25] MEDS: Famotidine 20 MG Tablet PO (08:48)
[2023-09-25] MEDS: Aspirin E.C. 81 MG Tablet PO (08:48)
[2023-09-25] MEDS: Furosemide 20 MG Tablet PO (08:48)
[2023-09-25] MEDS: amLODIPine 5 MG Tablet PO (08:49)
[2023-09-25] MEDS: Metoprolol Tartrate 50 MG Tablet PO (08:49)
[2023-09-25] MEDS: Clopidogrel Bisulfate 75 MG Tablet PO (08:49)
[2023-09-25] MEDS: Enoxaparin 100 MG/ML Syringe SC (08:50)
--- NOTE | 2023-09-25 08:52 | PN.CARD_ITS ---
Subjective Subjective The patient is sitting up in the chair this morning. Reports he still has some shortness of breath but his O2 sat is 95% on room air this morning. Yesterday after he came back to the floor from the Social Media Marketing Specialist he developed some profound hypoxia and O2 sats dropped in the 70% range he was treated with BiPAP which he remained on for approximately 4 hours and was weaned to nasal cannula overnight. He is now on room air at 95% saturated. An echo was performed which showed an ejection fraction of 25% with global LV systolic dysfunction but pronounced lateral wall motion abnormality. 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 The right coronary also has a calcified ostial lesion as well as another lesion in the mid to distal right coronary artery and a lesion in the posterior descending artery. All of these appear to be amenable to percutaneous revascularization however due to the heavy calcification it was felt that the patient would be better served where rotablation was an option. Dr. Jackman is contacting the interventional team at [facility] and we are awaiting the decision on timing and transfer options. Objective Data Vital Signs: Vital Signs Temp Pulse Resp BP Pulse Ox O2 Del Method O2 Flow Rate 97.8 F 107 H 16 108/71 95 Room Air 2 09/25/23 08:37 09/25/23 08:49 09/25/23 08:37 09/25/23 08:49 09/25/23 08:37 09/25/23 08:37 09/24/23 22:00 FiO2 45 09/24/23 11:07 Oxygen Flow Rate (L/min) 2 Oxygen Delivery Method Room Air Weight: 216 lb 4.375 oz Body Mass Index (BMI) 31.9 Intake & Output: Intake and Output for Last 24 Hours 09/23/23 09/24/23 09/25/23 23:59 23:59 23:59 Intake Total 83.3 / 503.3 1697.88 / 1897.88 450 / 450 Output Total 700 / 700 100 / 100 Balance 83.3 / 503.3 997.88 / 1197.88 350 / 350 Lab / Micro Data Attestation: I reviewed the patient's lab results. 09/25/23 05:54 09/24/23 02:55 Labs: Laboratory Results - last 24 hr 09/24/23 02:55: B-Natriuretic Peptide 394.3 H 09/24/23 11:37: Urine Color YELLOW, Urine Clarity Cloudy, Urine pH 6.0, Ur Specific [place] 1.010, Urine Protein 15 H, Urine Glucose (UA) Normal, Urine Ketones Negative, Urine Occult Blood 25 H, Urine Nitrite Positive H, Urine Bilirubin Negative, Urine Urobilinogen Normal, Ur Leukocyte Esterase 500 H, Urine RBC 0-5 SEEN, Urine WBC >100 SEEN, Ur Squamous Epith Cells 0-5 SEEN, Amorphous Sediment 1+ URATE, Urine Bacteria 1+, Urine Mucus 0 SEEN 09/25/23 05:54: WBC 10.7, RBC 3.26 L, Hgb 10.0 L, Hct 31.8 L, MCV 97.5 H, MCH 30.7, MCHC 31.4 L, RDW Std Deviation 46.5 H, RDW Coeff of [place] 13.0, Plt Count 330, MPV 10.9, Immature Gran % (Auto) 0.800, Neut % (Auto) 74.6 H, Lymph % (Auto) 13.9 L, [place] % (Auto) 9.7, Eos % (Auto) 0.4, Baso % (Auto) 0.6, Absolute Neuts (auto) 8.0 H, Absolute Lymphs (auto) 1.49, Nucleated RBC % 0 ABG Data ABG results: ABG 09/24/23 10:20 Specimen Type ART Sample Site L Radial pH 7.41 Bicarbonate Actual 19.4 L Total CO2 20 Base Excess -5 L O2 Saturation 98 O2 % 12.0 ABG pCO2 30.5 L ABG pO2 105 H Rubén Test Positive O2 Delivery Device NRB Vent Mode Not entered Rhythm Strip Rhythm Strip: Sinus Rhythm Rate: 104 Ectopy: PVC(s) Cardiology Labs/Tests 09/24/23 02:55: B-Natriuretic Peptide 394.3 H 09/24/23 10:20: pH 7.41, Bicarbonate Actual 19.4 L, Base Excess -5 L, O2 Saturation 98, ABG pCO2 30.5 L, ABG pO2 105 H, Rubén Test Positive 09/24/23 11:37: Urine Color YELLOW, Urine Clarity Cloudy, Urine pH 6.0, Ur Spe cific [place] 1.010, Urine Protein 15 H, Urine Glucose (UA) Normal, Urine Ket ones Negative, Urine Occult Blood 25 H, Urine Nitrite Positive H, Urine Bilirubin Negative, Urine Urobilinogen Normal, Ur Leukocyte Esterase 500 H, Urine RBC 0-5 SEEN, Urine WBC >100 SEEN 09/25/23 05:54: WBC 10.7, RBC 3.26 L, Hgb 10.0 L, Hct 31.8 L, MCV 97.5 H, MCH 30.7, MCHC 31.4 L, Plt Count 330, MPV 10.9, Immature Gran % (Auto) 0.800, Neut % (Auto) 74.6 H, Lymph % (Auto) 13.9 L, [place] % (Auto) 9.7, Eos % (Auto) 0.4, Baso % (Auto) 0.6, Absolute Neuts (auto) 8.0 H, Nucleated RBC % 0 Rhythm: EKG: ECHO: Stress Test: Cardiac Cath: PCI: CT Surgery: Holter monitor: EPS: PPM: CXR: Chest CT Scan: Radiography Diagnostic Testing: Radiology Impression Echocardiogram 09/23/23 17:03 Interpretation Summary The left ventricular ejection fraction is 25 %. Normal LV size. Lateral wall in particular appears to be severely hypokinetic Mild-Moderate (1-2+) eccentric mitral valve insufficiency. Contrast injection was performed. Ordering Physician: Faizan Jackman Referring Physician: IWONA AHUJA Performed By: Siri Chauhan RCS Chest X-Ray 09/24/23 10:06 IMPRESSION: Stable examination. Electronically Signed: Ramesh Meehan MD at 10:41 EDT , Physical Exam Const oriented x3 Orientation / Consciousness: awake HEENT normocephalic Eyes EOMs intact bilaterally Neck no JVD Carotids: Negative for bruit Chest inspection of chest normal Resp normal respiratory effort Auscultation: crackles bilateral lower Cardio regular rhythm, S1 normal heart sound, S2 normal heart sound, no murmurs, no rub and no gallops Rate: tachycardic GI soft to palpation Extremity no pedal edema Extremity Narrative: Bilateral [id number] compression hose. Skin no rashes or lesions noted Neuro Neuro Narrative: Alert and oriented x 3 Psych mental status grossly normal Assessment & Plan Assessment/Plan (1) Acute hypoxic respiratory failure: PLAN: The patient's acute respiratory failure appears to have resolved. He is now 95% saturated on room air sitting up in the chair. The patient's ejection fraction is known to be in the 25% range and his I's and O's are positive approximately 1.5 L. The patient did respond to IV Lasix yesterday after he had a hypoxic event. His chest x-ray did not show any overwhelming pulmonary edema and really was unchanged from his previous chest x-ray. (2) NSTEMI, initial episode of care: PLAN: The patient denies any anginal type symptoms this morning. He will be continued on his clopidogrel aspirin beta-melissa therapy. Will also intensify his heart failure therapy. (3) Heart failure with reduced ejection fraction: PLAN: The patient is not on an EDEL inhibitor / ARB or MRA. The patient has a history of a mild cough with Cozaar remotely. We will trial him on losartan which may need to be discontinued if it is a quality of life limiting side effects with the cough. His ejection fraction is known to be in the 25% range. He has global as well as segmental wall motion abnormalities. Would recommend discontinuing amlodipine and replacing this with a combination of an ARB and MRA. PLAN: Plan 1. Discontinue amlodipine 5 mg daily. 2. [place] losartan 50 mg every afternoon. 3. Add spironolactone 25 mg every morning starting 09/26/2023. 4. Basic metabolic panel should be reevaluated in 1 week. Currently his potassium and BUN and creatinine are within normal limits. Charges/Coding Visit Charges Inpatient E&M: 76151 Subs Hosp L3
[2023-09-25] MEDS: Ceftriaxone 1 GM/50 ML BAG IV (09:00)
[2023-09-25] MEDS: 0.9% Saline Lock 10 ML Syringe IV (09:43)
--- NOTE | 2023-09-25 10:28 | NURSING ---
spoke with daughter and updated on poc transfer
[2023-09-25] MEDS: Spironolactone 25 MG Tablet PO (11:05)
[2023-09-25] MEDS: Ferrous Sulfate 325 MG Tablet PO (11:07)
--- NOTE | 2023-09-25 12:27 | DS.PCM_ITS ---
Providers Date of Admission: 09/23/23 Date of Discharge: 09/25/23 Primary Care Physician: Dr. Sebastián Ahuja MD Consultations 09/23/23 12:30 Consult: Cardiology Routine Consulting Provider: Faizan Jackman Reason for Consult: NSTEMI EMERGENT Consult: No MD Notified: Yes Date Notified: 09/23/23 Time Notified: 12:09 Method of Notification: Text 09/23/23 15:36 Consult: Onc/Wound/gourmet coffee attendant Routine Comment: Reason for Consult:: wound vac post op Reason For Visit: NSTEMI Diagnosis Discharge Diagnosis (1) Acute hypoxic respiratory failure: Status: Acute Code(s): J96.01 - Acute respiratory failure with hypoxia (2) NSTEMI, initial episode of care: Status: Acute Code(s): I21.4 - Non-ST elevation (NSTEMI) myocardial infarction (3) Heart failure with reduced ejection fraction: Status: Acute Code(s): I50.20 - Unspecified systolic (congestive) heart failure Medications at Discharge Home Medications hydrocodone-acetaminophen 5-325mg 5mg-325mg 1 tab PO Q6H PRN hip pain 04/27/23 aspirin 81 mg tablet,delayed release 81 mg PO BREAKFAST #30 tabs 04/29/23 amlodipine 2.5 mg tablet 2.5 mg PO DAILY #90 tabs 05/14/23 atorvastatin 40 mg tablet 40 mg PO QHS #90 tabs 05/14/23 clopidogrel 75 mg tablet (Plavix) 75 mg PO DAILY #90 tabs 05/14/23 metoprolol succinate 25 mg tablet,extended release 24 hr 50 mg (2 x 25 mg) PO DAILY heart blockage #180 tabs 06/01/23 melatonin 10 mg capsule 10 mg PO QHS sleep 09/23/23 Hospital Course Summary of Care Provided Hospital Course: Mr. Cruz is an 78-year-old male who was a direct transfer from [facility] for an NSTEMI on 09/23/2023. He originally presented to [facility] on 09/18/2023 for a planned elective total hip replacement with Dr. Robledo. The procedure was noted to be fairly complicated and required wound VAC placement. 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 Skilled rehab was recommended for discharge and the patient was in the process of transitioning to the [facility] TCU on 09/22/2023 however on the morning of 09/23/2023 he became acutely short of breath and his vital signs were were stable and he was not hypoxic however stat labs were ordered and he was found to have a markedly elevated D-dimer at 2557 and a troponin of 6365. EKG at that time showed sinus tachycardia with ST segment depressions and no previous for comparison. CTA of the chest was negative for PE and showed only small bilateral pleural effusions. He did not have any chest pain, diaphoresis, or nausea/vomiting at that time. Given his troponin elevation and the concern for an NSTEMI he was transferred here for further management. He does follow with cardiology as an outpatient and had a recent stress test on 06/21/2023 that was negative for any inducible ischemia. Upon arrival cardiology was consulted and plan was for catheterization which was done today on 09/24/2023 and noted subtotal heavy calcified proximal left circumflex that was unable to be crossed with a wire, 50% distal LMCA, 50% calcified ostial LAD, 70% calcified ostial D1, and 80% heavily calcified ostial and proximal RCA. Unsuccessful PCI of the subtotal heavily calcified proximal left circumflex was attempted and medical therapy was recommended however I did discuss the case with Dr. Jackman and he felt that transfer to tertiary center may be required and would like to discuss it with tertiary marriage therapist. I was called shortly after he returned from his cardiac catheterization at which time he was noted to be hypoxic with oxygen saturations at 79% on room air and appeared somewhat devlin. He was placed on a nonrebreather with improvement in his oxygen saturations and cardiology was called to the bedside. A stat echocardiogram was obtained and found to show an EF of 25% with normal LV size, lateral wall in particular appeared to be severely hypokinetic with mild to moderate mitral valve insufficiency. He was maintained on BiPAP and given some IV fluids. ABG/chest x-ray/BNP were obtained and found to be stable without any acute etiology. Clinically he improved and had been weaned to room air. Lower extremity Dopplers were done and showed no DVT. The intent was to perform a CTA of his chest here given his decompensation after cardiac catheterization however we wanted to make sure that his renal function was stable after his cardiac catheterization with a dye load and get it on 09/25/[address] Jackman called me in the morning and indicated he was able to discuss the case with Dr. Magaña at [facility] who accepted for transfer for complex PCI. With his clinical improvement it is unlikely that he had PE and I will leave this up to the tertiary center as it sounds as he will get another dye load with repeat cardiac catheterization for intervention on his disease vessels. I did call both his son and daughter and updated them with regards to plans for transfer and answered questions as best as I could with regards to the plan of care however his daughter did have some questions regarding future cardiac catheterization that was unable to answer. I did advise her to talk further with the excepting facility marriage therapist. Discharge diagnoses: Hypoxic respiratory failure-resolved Hypotension-resolved NSTEMI CAD Hypertension Hyperlipidemia HFpEF Acute on chronic anemia Left total hip replacement-09/18/2023 Abnormal chest x-ray History of stroke History of bilateral carotid artery stenosis GERD History of BPH with obstruction Obesity Osteoarthritis Physical Exam Const alert, oriented x3, no apparent distress and well nourished; Negative for average body habitus, no limitations or healthy appearing Constitutional Narrative: Obese, older, white male, sitting up in a chair at the bedside, clinically appears much better today, appears comfortable and nontoxic General Appearance: cooperative, comfortable, well kempt and well developed HEENT normocephalic, head/scalp atraumatic and moist oral mucous membranes HEENT Narrative: Dentition is poor, Mallampati is 2-3, no thrush, mildly hard of hearing Eyes PERRL, EOMs intact bilaterally and conjunctivae normal Eyes Narrative: No scleral icterus Neck no lymphadenopathy and supple Neck Narrative: Trachea midline, no thyroid enlargement Resp normal respiratory effort, no retractions, no use of accessory muscles and clear to auscultation bilaterally Auscultation: Negative for rales, rhonchi or wheezes Cardio regular rate, regular rhythm, S1 normal heart sound, S2 normal heart sound, no murmurs, no rub, no gallops, no clicks and peripheral pulses 2+ throughout GI normal to inspection, nondistended, normoactive bowel sounds, soft to palpation and non-tender Extremity no clubbing, cyanosis or edema Extremity Narrative: Pedal pulses are 2+, radial pulses are 2+ bilaterally and right radial artery is without any significant ecchymosis or tenderness after catheterization Skin no rashes or lesions noted, no wounds, skin turgor normal and no jaundice Neuro oriented x3, CN's II-XII intact bilaterally, moves all extremities and no focal motor deficits Neuro Narrative: Generalized weakness noted Speech: speech normal Psych mental status grossly normal and affect normal Psych Narrative: Much more interactive today as he is feeling better, eye contact is good, patient is pleasant and appropriate Weight / BMI Weight Weight: 98.1 kg Body Mass Index (BMI) 31.9 ABG / Lab / Microbiology Data 09/25/23 05:54 09/24/23 02:55 Laboratory: Laboratory Results - last 24 hr 09/24/23 11:37: Urine Color YELLOW, Urine Clarity Cloudy, Urine pH 6.0, Ur Specific [place] 1.010, Urine Protein 15 H, Urine Glucose (UA) Normal, Urine Ketones Negative, Urine Occult Blood 25 H, Urine Nitrite Positive H, Urine Bilirubin Negative, Urine Urobilinogen Normal, Ur Leukocyte Esterase 500 H, Urine RBC 0-5 SEEN, Urine WBC >100 SEEN, Ur Squamous Epith Cells 0-5 SEEN, Amorphous Sediment 1+ URATE, Urine Bacteria 1+, Urine Mucus 0 SEEN 09/25/23 05:54: WBC 10.7, RBC 3.26 L, Hgb 10.0 L, Hct 31.8 L, MCV 97.5 H, MCH 30.7, MCHC 31.4 L, RDW Std Deviation 46.5 H, RDW Coeff of [place] 13.0, Plt Count 330, MPV 10.9, Immature Gran % (Auto) 0.800, Neut % (Auto) 74.6 H, Lymph % (Auto) 13.9 L, [place] % (Auto) 9.7, Eos % (Auto) 0.4, Baso % (Auto) 0.6, Absolute Neuts (auto) 8.0 H, Absolute Lymphs (auto) 1.49, Nucleated RBC % 0 Radiography Diagnostic Testing: Radiology Impression Echocardiogram 09/23/23 17:03 Interpretation Summary The left ventricular ejection fraction is 25 %. Normal LV size. Lateral wall in particular appears to be severely hypokinetic Mild-Moderate (1-2+) eccentric mitral valve insufficiency. Contrast injection was performed. Ordering Physician: Faizan Jackman Referring Physician: SEBASTIÁN AHUJA Performed By: Siri Chauhan RCS D/C Instructions Discharge Diet: Low fat / Low cholesterol Meaningful Use Info Meaningful Use Diagnoses (Choose all that apply): None applicable Discharge Plan Admission Admit Date/Time: 09/23/23 11:24 Primary Reason for Your Visit: NSTEMI Attending Provider: Natalia Garcia Primary Care Provider: Sebastián Ahuja Consulting Providers: Chet Edmonds; Faizan Jackman; Bret Green Discharge Orders/Prescriptions Prescriptions: No Action atorvastatin 40 mg tablet 40 mg PO QHS Qty: 90 3RF clopidogrel [Plavix] 75 mg tablet 75 mg PO DAILY Qty: 90 3RF Hold Instructions: Ordered Rx Instructions: Plavix total for 90 days amlodipine 2.5 mg tablet 2.5 mg PO DAILY Qty: 90 3RF Rx Instructions: Increase to 5 mg if persistently systolic blood pressure more than 140 mmHg hydrocodone-acetaminophen 5-325 mg tablet 1 tab PO Q6H PRN (Reason: hip pain) Patient Comments: TAKE 1 TABLET BY MOUTH EVERY 6 HOURS FOR 7 DAY(S) NEEDED FOR PAIN aspirin 81 mg Tablet,Delayed Release (Dr/Ec) 81 mg PO BREAKFAST Qty: 30 3RF melatonin 10 mg capsule 10 mg PO QHS metoprolol succinate 25 mg tablet extended release 24 hr 50 mg PO DAILY Qty: 180 0RF Referrals / Follow Up: Sebatsián Ahuja MD [Primary Care Provider] - Disposition Disposition (needs filled in before D/C Order can be placed): Acute Care Hospital Charges/Coding Visit Charges Inpatient E&M: 87411 Disch Hosp >30min
[2023-09-25 13:24] LABS: ALB/GLOB Ratio 0.6 RATIO (0.9-2.4); AST(SGOT) 260 U/L (15-37); Alanine Aminotransfer ALT/SGPT 63 U/L (16-61); Albumin, Serum 2.4 g/dL (3.2-5.0); Alkaline Phosphatase 74 U/L (45-117); Anion Gap 7 (5-15); BUN 39 mg/dL (7-18); BUN/Creat Ratio 35.5 RATIO (10-20); Calcium,Total 8.9 mg/dL (8.5-10.1); Chloride 107 mmol/L (98-107); EST Glomerular Filtration Rate 68 mL/min (>60); Est Glom Filt Rate - Afr Amer 83 mL/min (>60); Estimated Creatinine Clearance 61.86 ml/min; Globulin 4.3 g/dL (2.2-4.2); Glucose 146 mg/dL (74-106); Magnesium 2.5 mg/dL (1.6-2.6); Phosphorus 4.4 mg/dL (2.5-4.9); Potassium 4.5 mmol/L (3.5-5.1); Protein, Total 6.7 g/dL (6.4-8.2); Sodium Level 138 mmol/L (136-145)
[2023-09-25 15:38] LABS: ACT Activated Clotting Time 217 sec (74-137)
== END 2023-09-25 11:46 | disposition short-term general hospital (02) | DRG 280 ==
PROVIDERS: Family Medicine; Admitting Provider Hospitalist; PCP Family Medicine; Visit Provider Internal Medicine
DX: I21.4 Non-ST elevation (NSTEMI) myocardial infarction (principal); I50.21 Acute systolic (congestive) heart failure; J96.01 Acute respiratory failure with hypoxia; J98.11 Atelectasis; I11.0 Hypertensive heart disease with heart failure; I34.0 Nonrheumatic mitral (valve) insufficiency; E78.5 Hyperlipidemia, unspecified; I25.10 Atherosclerotic heart disease of native coronary artery without angina pectoris; K21.9 Gastro-esophageal reflux disease without esophagitis; M19.90 Unspecified osteoarthritis, unspecified site; I95.81 Postprocedural hypotension; E66.9 Obesity, unspecified; Z53.09 Procedure and treatment not carried out because of other contraindication; Z68.31 Body mass index [BMI] 31.0-31.9, adult; R53.81 Other malaise; Z79.82 Long term (current) use of aspirin; Z79.02 Long term (current) use of antithrombotics/antiplatelets; Z86.73 Personal history of transient ischemic attack (TIA), and cerebral infarction without residual deficits; Z96.642 Presence of left artificial hip joint
CPT/HCPCS: 36415; 36600; 71045; 80048; 80053; 80061; 81001; 82803; 83036; 83735; 83880; 84100; 84443; 84484; 85025; 85027; 85347; 85730; 87077; 87086; 87088; 87186; 92928; 93005; 93306; 93454; 93970; 94002; 94003; 94668; 97162; 97166; 97530; 97535; 99152; 99153; C1769; J7030; J7040; Q9957; Q9967; A4216; C1725; C1887; C1894; C8929; C9600; J1940

== ENCOUNTER 2023-10-05 18:45 | Inpatient (IN) | payer MEDICARE, SELFPAY ==
[2023-10-05 19:21] VITALS: BP 114/63; PULSE 86; RESP 16; TEMP 36.4; O2SAT 98
[2023-10-05 20:11] VITALS: BMI 29.0
--- NOTE | 2023-10-05 20:39 | HP.PCM_ITS ---
HPI - General General Date of Admission: 10/05/23 Date of Service: 10/08/23 Chief Complaint: Here for rehabilitation. HPI Narrative TELLO BLANKENSHIP, is a 78 Male who presents with followin09/18/2023 Dr. Robledo performed left total hip arthroplasty, wound VAC required. 09/22/2023 Admit to [facility] TCU (SNF). 09/23/2023 SOB, elevated d-dimer, CTA chest negative pulmonary embolism. Elevated troponin, transfer to [facility]. 09/23/2023 Admit to [facility] with NSTEMI. 09/24/2023 Heart cath showed multi vessel CAD, unsuccessful PCI, EF 25%. Transfer to [facility] for complicated PCI. 09/25/2023 Admit to [facility]. Change Plavix to Brilinta. Start Heparin drip, nitropaste. Continue Aspirin, Metoprolol, Atorvastatin, PPI. Rocephin IV, urine culture for UTI. 09/26/2023 Dr. Magaña performed NORIS x 3 to LM, LAD, RCA. Decompensated heart failure, atrial fibrillation/atrial flutter status post DCCV. 09/30/2023 Echo EF 15%, 2+ MR, Mild . 10/03/2023 Worsening SOB. Thoracentesis planned for large left pleural effusion. Torsemide 10mg daily, Spironolactone, continue Metoprolol succinate 75mg daily. Entresto intolerable in the past. Eliquis 5mg bid, Metoprolol succinate 75mg daily, Amiodarone 400mg bid for atrial fibrillation. 10/05/2023 Life Vest. 10/05/2023 Admit to TCU with debility, here for rehabilitation, strengthening, prior to discharge home alone. [facility] Medical History (Updated 10/05/23 @ 20:[address] David Palmer MD) Arthritis CAD (coronary artery disease) Dyslipidemia History of CVA (cerebrovascular accident) Hypertension Leaky heart valve Home Medications hydrocodone-acetaminophen 5-325mg 5mg-325mg 1 tab PO Q6H PRN hip pain 04/27/23 [History Last Taken 04/27/23 06:30] atorvastatin 40 mg tablet 40 mg PO QHS cholesterol #90 tabs 05/14/23 [Rx Last Taken 10/05/23] metoprolol succinate 25 mg tablet,extended release 24 hr 50 mg (2 x 25 mg) PO DAILY heart blockage #180 tabs 06/01/23 [Rx Last Taken Unknown] melatonin 10 mg capsule 10 mg PO QHS sleep 09/23/23 [History Last Taken 10/01/23] clopidogrel 75 mg tablet (Plavix) 75 mg PO DAILY antiplatelet 10/05/23 [History Last Taken 10/05/23] Allergy/AdvReac Type Severity Reaction Status Date / Time sacubitril [From Entresto] Allergy Mild cough Verified 06/19/23 10:31 valsartan [From Entresto] Allergy Mild cough Verified 06/19/23 10:31 Surgical History (Updated 10/05/23 @ 20:[address] David Palmer MD) History of total left hip arthroplasty History of total right knee replacement Social History (Updated 10/05/23 @ 20:[address] David Palmer MD) household members: none Smoking Status: Never smoker alcohol intake: never substance use type: does not use ROS Constitutional Constitutional: Reports fatigue and weakness; Denies chills, fever(s) or weight gain ENT HEENT: Denies headache(s), nasal congestion or nasal discharge Cardiovascular Cardiovascular: Denies chest pain or palpitations Respiratory/Chest Respiratory/Chest: Reports shortness of breath with exertion; Denies cough or excessive phlegm production Gastrointestinal Gastrointestinal: Denies abdominal pain, nausea or vomiting Genitourinary Genitourinary: Denies dysuria Musculoskeletal Musculoskeletal: Denies joint pain or joint swelling Integumentary Integumentary: Denies rash or wounds Neurologic Neurologic: Denies focal weakness, numbness or tingling Psychiatric Psychiatric: Denies anxiety, auditory hallucinations, depression, homicidal ideation or suicidal ideation Vital Signs Vital Signs Vital Signs: 10/05/23 19:21 Temperature 97.5 F L Temperature Source Temporal Pulse Rate 86 Respiratory Rate 16 Blood Pressure 114/63 Blood Pressure Mean 80 Blood Pressure Source Monitor Blood Pressure Position Semi-Fowlers Blood Pressure Location Left Arm Pulse Ox 98 Oxygen Delivery Method Room Air Physical Exam Const alert General Appearance: cooperative HEENT normocephalic Eyes PERRL and EOMs intact bilaterally Neck supple, no JVD and no carotid bruits Chest Chest Narrative: Life Vest. Resp normal respiratory effort, normal air movement and clear to auscultation bilaterally Cardio regular rate and regular rhythm GI normal to inspection, nondistended, normoactive bowel sounds, non-tender and non-distended Extremity normal capillary refill General Extremity: Negative for edema Skin no rashes or lesions noted General Skin Exam: no breakdown Psych affect normal Appearance: appropriate Results Lab / Micro Data 10/08/23 05:28 10/08/23 05:28 Assessment & Plan Assessment/Plan (1) Debility: (2) NSTEMI (non-ST elevated myocardial infarction): (3) CAD (coronary artery disease): (4) Acute HFrEF (heart failure with reduced ejection fraction): (5) Atrial fibrillation: (6) Pleural effusion, left: (7) Hypertension: (8) Hyperlipidemia: (9) Insomnia: (10) Stroke: (11) Stenosis of right carotid artery: PLAN: Plan 78 year old male with below past medical history hospitalized for NSTEMI, underwent stents x 3, complicated by acute HFrEF (EF 15%), afib/aflutter s/p DCCV, left pleural effusion requiring thoracentesis, admitted to TCU with debility, here for rehabilitation, strengthening, prior to discharge home alone. * Debility - PT/OT. * Pain - Tylenol 1000mg q6 prn pain (1-10). * Bowel - Miralax 17gm daily, senna/colace 1 tablet bid prn. * Adult immunization - Administer pneumonia vaccine, covid vaccine, flu vaccine as appropriate * DVT prophylaxis - Eliquis 5mg bid. * Atrial fibrillation - Metoprolol succinate 50mg po qhs, Amiodarone 400mg daily thru 11/05/2023, then 200mg daily, Eliquis 5mg bid. * Hyperlipidemia - Atorvastatin 40mg qhs. * Coronary artery disease s/p stents x 3 - Metoprolol succinate 50mg qhs, Eliquis 5mg bid, Plavix 75mg daily. * HFrEF - Metoprolol succinate 50mg qhs, Entresto intolerable, Jardiance 25mg daily, Spironolactone 12.5mg daily, Furosemide 20mg daily prn. * Insomnia - Melatonin 10mg qhs prn. * GERD - Pantoprazole 40mg daily. * Zinc deficiency - Zinc 50mg daily.
--- NOTE | 2023-10-05 21:03 | NURSING ---
DR. ANGLIN NOTIFIED VIA PHONE REAGARDING PATIENT ADMIT AND NEED FOR CLARIFICATION REGARDING CALCIUM CARBONATE-VIT D ORDER NEEDING FREQUENCY CLARIFIED DUE TO NO FREQUENCY LISTED IN ORDER
[2023-10-05] MEDS: MELATONIN 10 MG TABLET PO (21:17)
[2023-10-05] MEDS: APIXABAN 5 MG TABLET PO (21:19)
[2023-10-05 21:20] VITALS: BP 109/58; PULSE 65
[2023-10-05] MEDS: Metoprolol(XL)Succ 50 MG Tablet PO (21:20)
--- NOTE | 2023-10-06 02:26 | NURSING ---
Confidential voicemail left for social work faculty member due to resident requesting additional information on advance directives and planning.
[2023-10-06 05:25] LABS: Absolute Lymphocyte Count 1.48 X10^3/uL (0.83-4.51); Absolute Neutrophil Count 5.8 X10^3/uL (2.0-7.7); Basophil# 0.06 X10^3/uL; Basophil% 0.7 % (0-1); Eosinophil# 0.22 X10^3/uL; Eosinophils% 2.7 % (0-5); Hemoglobin 10.4 g/dL (13.0-16.5); Lymphocyte # 1.48 X10^3/ul (0.83-4.51); Lymphocyte % 18.1 % (19-41); Mean Corp Hgb Conc 30.6 g/dL (32-36); Mean Corpuscular Hgb 30.1 pg (27.0-32.0); Mean Corpuscular Volume 98.3 fL (80-94); Mean Platelet Vol. 10.6 fl (6.2-12.0); Monocyte# 0.56 X10^3/uL; Monocyte% 6.9 % (0-10); NRBC Flagged by Analyzer 0 % (0-5); Neutrophil # 5.81 X10^3/uL (2.7-7.7); Neutrophil % 71.1 % (47-70); Platelet Count 462 K/mm3 (150-450); RBC Distribution Width CV 13.4 % (11.6-14.6); RBC Distribution Width SD 48.3 fl (35.1-43.9); Red Blood Count 3.46 M/mm3 (4.6-6.2); White Blood Count 8.2 K/mm3 (4.4-11.0)
--- NOTE | 2023-10-06 05:30 | NURSING ---
life vest battery changed per order, education provided to patient regarding life vest, reinforcement needed, patient states I don't remember what they said when patient asked if recalls information provided at acute care hospital when life vest initially applied. Reviewed life vest warnings as stated in Life vest booklet and importance of only patient pressing response buttons on life vest pack, patient verbalized understanding. Second battery placed on service desk associate and actively charging per display screen. Life vest battery full, in place per order, and functioning properly. No c/o chest pain/heart palpations/dizziness/SOB. Respirations even and unlabored, no distress observed or reported. Patient reports PRN melatonin as ineffective, written communication left for Dr. Palmer regarding patient request for a stronger sleeping pill.
[2023-10-06 05:48] LABS: Anion Gap 5 (5-15); BUN 26 mg/dL (7-18); Chloride 107 mmol/L (98-107); EST Glomerular Filtration Rate 56 mL/min (>60); Est Glom Filt Rate - Afr Amer 68 mL/min (>60); Estimated Creatinine Clearance 50.06 ml/min; Glucose 120 mg/dL (74-106); Potassium 4.3 mmol/L (3.5-5.1); Sodium Level 139 mmol/L (136-145)
[2023-10-06 05:59] VITALS: BMI 29.2
--- NOTE | 2023-10-06 06:52 | NURSING ---
PT. refused pneumococcal vaccine, education provided, PT. still refuses vaccine.
[2023-10-06] MEDS: Spironolactone 25 MG Tablet 12.5 MG PO (09:38)
[2023-10-06] MEDS: Empagliflozin 25 MG Tablet PO (09:40)
[2023-10-06] MEDS: Amiodarone 200 MG Tablet 400 MG PO (09:40)
[2023-10-06] MEDS: APIXABAN 5 MG TABLET PO ×2 (09:40→21:39)
[2023-10-06] MEDS: Pantoprazole Sodium 40 MG Tablet PO (09:41)
[2023-10-06] MEDS: Clopidogrel Bisulfate 75 MG Tablet PO (09:41)
[2023-10-06] MEDS: Tuberculin,Purif.prot.deriv. 50 TU/ML Vial 0.1 ML ID (09:41)
[2023-10-06] MEDS: Zinc Sulfate 50 mg zinc (220 mg) ORAL capsule PO (09:42)
[2023-10-06] MEDS: Menthol/Lanolin/Calamine/Znox 113 GM Tube 1 APPLIC TOPICAL ×2 (09:48→21:34)
[2023-10-06] MEDS: Nystatin Powder 15gm Bottle 1 APPLIC TOPICAL ×2 (09:49→21:39)
--- NOTE | 2023-10-06 13:11 | NURSING ---
Dr. Palmer Updated on pt's c/o not sleeping at night and Melatonin not working and would like something stronger. N.O. received for Doxepin 10mg QHS. order read back.
[2023-10-06] MEDS: Iron Polysaccharide Complex 150 MG CAPSULE PO (13:19)
[2023-10-06 15:13] VITALS: BP 100/53; PULSE 60; RESP 18; TEMP 36.2; O2SAT 95
[2023-10-06 19:49] VITALS: PULSE 61; RESP 16; O2SAT 92
[2023-10-06 21:39] VITALS: BP 98/52; PULSE 62
[2023-10-06] MEDS: Doxepin Hydrochloride 10 MG Capsule PO (21:39)
[2023-10-06] MEDS: Metoprolol(XL)Succ 50 MG Tablet PO (21:39)
[2023-10-06] MEDS: Atorvastatin Calcium 40 MG Tablet PO (21:39)
[2023-10-07 05:08] VITALS: BMI 29.4
[2023-10-07 07:22] LABS: Absolute Lymphocyte Count 1.53 X10^3/uL (0.83-4.51); Basophil# 0.07 X10^3/uL; Basophil% 0.9 % (0-1); Eosinophil# 0.26 X10^3/uL; Eosinophils% 3.4 % (0-5); Hematocrit 32.4 % (40-54); Hemoglobin 9.6 g/dL (13.0-16.5); Lymphocyte # 1.53 X10^3/ul (0.83-4.51); Mean Corp Hgb Conc 29.6 g/dL (32-36); Mean Corpuscular Hgb 29.3 pg (27.0-32.0); Mean Corpuscular Volume 98.8 fL (80-94); Mean Platelet Vol. 10.7 fl (6.2-12.0); Monocyte# 0.69 X10^3/uL; NRBC Flagged by Analyzer 0 % (0-5); Neutrophil # 5.03 X10^3/uL (2.7-7.7); Neutrophil % 65.9 % (47-70); Platelet Count 428 K/mm3 (150-450); RBC Distribution Width CV 13.4 % (11.6-14.6); RBC Distribution Width SD 48.2 fl (35.1-43.9); Red Blood Count 3.28 M/mm3 (4.6-6.2); White Blood Count 7.6 K/mm3 (4.4-11.0)
[2023-10-07 07:42] LABS: Anion Gap 4 (5-15); BUN 23 mg/dL (7-18); BUN/Creat Ratio 19.2 RATIO (10-20); Calcium,Total 8.3 mg/dL (8.5-10.1); Chloride 108 mmol/L (98-107); EST Glomerular Filtration Rate 62 mL/min (>60); Est Glom Filt Rate - Afr Amer 75 mL/min (>60); Estimated Creatinine Clearance 54.58 ml/min; Glucose 96 mg/dL (74-106); Potassium 4.3 mmol/L (3.5-5.1); Sodium Level 140 mmol/L (136-145)
[2023-10-07 09:50] LABS: Iron 28 ug/dL (65-175); Iron Binding Capacity,Total 228 ug/dL (250-450); PERCENT IRON SATURATION 12.3 % (15.0-55.0)
[2023-10-07 10:00] VITALS: PULSE 60; RESP 16; O2SAT 96
[2023-10-07] MEDS: Menthol/Lanolin/Calamine/Znox 113 GM Tube 1 APPLIC TOPICAL ×2 (10:27→20:32)
[2023-10-07] MEDS: Spironolactone 25 MG Tablet 12.5 MG PO (10:27)
[2023-10-07] MEDS: Amiodarone 200 MG Tablet 400 MG PO (10:28)
[2023-10-07] MEDS: Empagliflozin 25 MG Tablet PO (10:28)
[2023-10-07] MEDS: Polyethylene Glycol 3350 17 GM PACKET PO (10:28)
[2023-10-07] MEDS: Iron Polysaccharide Complex 150 MG CAPSULE PO (10:28)
[2023-10-07] MEDS: Nystatin Powder 15gm Bottle 1 APPLIC TOPICAL ×2 (10:28→20:33)
[2023-10-07] MEDS: APIXABAN 5 MG TABLET PO (10:28)
[2023-10-07] MEDS: Zinc Sulfate 50 mg zinc (220 mg) ORAL capsule PO (10:29)
[2023-10-07] MEDS: Pantoprazole Sodium 40 MG Tablet PO (10:29)
[2023-10-07] MEDS: Ascorbic Acid 500 MG Tablet PO (10:29)
[2023-10-07] MEDS: Clopidogrel Bisulfate 75 MG Tablet PO (10:29)
[2023-10-07 10:30] VITALS: BP 104/54; PULSE 60; RESP 16
[2023-10-07 14:04] VITALS: BP 113/60; PULSE 59; RESP 20; TEMP 36.3; O2SAT 98
[2023-10-07 20:38] VITALS: BP 107/52; PULSE 60
[2023-10-07] MEDS: Metoprolol(XL)Succ 50 MG Tablet PO (20:38)
[2023-10-07] MEDS: Doxepin Hydrochloride 10 MG Capsule PO (20:38)
[2023-10-07] MEDS: Atorvastatin Calcium 40 MG Tablet PO (20:38)
[2023-10-08 05:17] VITALS: BMI 29.4
[2023-10-08 06:01] LABS: Absolute Lymphocyte Count 1.47 X10^3/uL (0.83-4.51); Absolute Neutrophil Count 6.7 X10^3/uL (2.0-7.7); Basophil# 0.08 X10^3/uL; Basophil% 0.9 % (0-1); Eosinophil# 0.16 X10^3/uL; Eosinophils% 1.7 % (0-5); Lymphocyte # 1.47 X10^3/ul (0.83-4.51); Mean Corp Hgb Conc 29.4 g/dL (32-36); Mean Corpuscular Hgb 29.9 pg (27.0-32.0); Mean Corpuscular Volume 101.5 fL (80-94); Mean Platelet Vol. 10.6 fl (6.2-12.0); Monocyte# 0.77 X10^3/uL; Monocyte% 8.4 % (0-10); NRBC Flagged by Analyzer 0 % (0-5); Neutrophil # 6.67 X10^3/uL (2.7-7.7); Neutrophil % 72.6 % (47-70); Platelet Count 391 K/mm3 (150-450); RBC Distribution Width CV 13.5 % (11.6-14.6); RBC Distribution Width SD 49.4 fl (35.1-43.9); Red Blood Count 3.35 M/mm3 (4.6-6.2); White Blood Count 9.2 K/mm3 (4.4-11.0)
[2023-10-08 06:26] LABS: Anion Gap 6 (5-15); BUN 25 mg/dL (7-18); Calcium,Total 8.4 mg/dL (8.5-10.1); Chloride 107 mmol/L (98-107); Creatinine, Serum 1.25 mg/dL (0.70-1.30); EST Glomerular Filtration Rate 59 mL/min (>60); Est Glom Filt Rate - Afr Amer 71 mL/min (>60); Estimated Creatinine Clearance 52.33 ml/min; Glucose 98 mg/dL (74-106); Potassium 4.1 mmol/L (3.5-5.1); Sodium Level 138 mmol/L (136-145)
[2023-10-08] MEDS: Spironolactone 25 MG Tablet 12.5 MG PO (08:20)
[2023-10-08] MEDS: Amiodarone 200 MG Tablet 400 MG PO (08:22)
[2023-10-08] MEDS: Empagliflozin 25 MG Tablet PO (08:22)
[2023-10-08] MEDS: Polyethylene Glycol 3350 17 GM PACKET PO (08:22)
[2023-10-08] MEDS: Iron Polysaccharide Complex 150 MG CAPSULE PO (08:22)
[2023-10-08] MEDS: Zinc Sulfate 50 mg zinc (220 mg) ORAL capsule PO (08:23)
[2023-10-08] MEDS: Clopidogrel Bisulfate 75 MG Tablet PO (08:23)
[2023-10-08] MEDS: Ascorbic Acid 500 MG Tablet PO (08:23)
[2023-10-08] MEDS: Pantoprazole Sodium 40 MG Tablet PO (08:23)
[2023-10-08] MEDS: Nystatin Powder 15gm Bottle 1 APPLIC TOPICAL ×2 (08:26→22:22)
[2023-10-08] MEDS: Menthol/Lanolin/Calamine/Znox 113 GM Tube 1 APPLIC TOPICAL ×2 (08:27→22:22)
--- NOTE | 2023-10-08 12:24 | NURSING ---
Offered Covid vaccine, VIS provided. Patient refuses at this time.
--- NOTE | 2023-10-08 12:25 | NURSING ---
Roller Coaster Engineer Note; Activity Asset: aSlma Treadwell is independent in his choice of daily activities. He prefers independent activities in his room over group. His family will visit and bring him items he may need. He has word puzzles along with sudoku and reading materials. Staff will remind him of weekly activities and respect his right to say no.
--- NOTE | 2023-10-08 14:29 | PCM.PN.DRR ---
Documented by User: Anju Paz 10/08/23 14:52 TCU RX Drug Regimen Review Subjective/Objective Subjective/Objective: Subjective: TCU Admission. 78 YOM presented to ER from [facility] TCU with NSTEMI, transferred to [facility]. Hospitalized for NSTEMI, underwent stents x 3, complicated by acute HFrEF (EF 15%), afib/aflutter s/p DCCV, left pleural effusion requiring thoracentesis. Admitted to TCU with debility for strengthening and rehabilitation. Objective: Allergies sacubitril [From Entresto] Allergy (Mild, Verified 06/19/23 10:31) cough valsartan [From Entresto] Allergy (Mild, Verified 06/19/23 10:31) cough Current Medications Generic Name Dose Route Start Last Admin Trade Name Freq PRN Reason Stop Dose Admin Acetaminophen 1,000 mg 10/05/23 20:56 Acetaminophen 500 Mg Tablet PO Q6H PRN PRN Pain Score 1-10 Amiodarone HCl 400 mg 10/06/23 10:00 10/08/23 08:22 Amiodarone 200 Mg Tablet PO 11/05/23 10:01 400 mg DAILY CALEB Administration Amiodarone HCl 200 mg 11/06/23 10:00 Amiodarone 200 Mg Tablet PO DAILY CALEB Apixaban 5 mg 10/05/23 22:00 10/07/23 10:28 Apixaban 5 Mg Tablet PO 5 mg BID CALEB Administration Ascorbic Acid 500 mg 10/07/23 10:00 10/08/23 08:23 Ascorbic Acid 500 Mg Tablet PO 500 mg 1000 CALEB Administration Atorvastatin Calcium 40 mg 10/06/23 22:00 10/07/23 20:38 Atorvastatin Calcium 40 Mg Tablet PO 40 mg QHS CALEB Administration Calamine/Phenol 1 applic 10/05/23 22:00 10/08/23 08:27 Menthol/Lanolin/Calamine/Znox 113 Gm Tube TOPICAL 1 applic BID CALEB Administration Protocol Clopidogrel Bisulfate 75 mg 10/06/23 10:00 10/08/23 08:23 Clopidogrel Bisulfate 75 Mg Tablet PO 75 mg DAILY CALEB Administration Doxepin HCl 10 mg 10/06/23 22:00 10/07/23 20:38 Doxepin Hydrochloride 10 Mg Capsule PO 10 mg QHS CALEB Administration Empagliflozin 25 mg 10/06/23 10:00 10/08/23 08:22 Empagliflozin 25 Mg Tablet PO 25 mg DAILY [facility] Administration Furosemide 20 mg 10/05/23 20:33 Furosemide 20 Mg Tablet PO DAILY PRN swelling/dyspnea Metoprolol Succinate 50 mg 10/05/23 22:00 10/07/23 20:38 Metoprolol(Xl)Succ 50 Mg Tablet PO 50 mg QHS [facility] Administration Protocol Nystatin 1 applic 10/05/23 22:00 10/08/23 08:26 Nystatin Powder 15gm Bottle TOPICAL 1 applic BID [facility] Administration Protocol Pantoprazole Sodium 40 mg 10/06/23 10:00 10/08/23 08:23 Pantoprazole Sodium 40 Mg Tablet PO 40 mg DAILY [facility] Administration Polyethylene Glycol 17 gm 10/06/23 10:00 10/08/23 08:22 Polyethylene Glycol 3350 17 Gm Packet PO 10/09/23 10:01 17 gm DAILY [facility] Administration Polysaccharide Iron Complex 150 mg 10/06/23 11:00 10/08/23 08:22 Iron Polysaccharide Complex 150 Mg Capsule PO 150 mg DAILY [facility] Administration Senna/Docusate Sodium 1 tablet 10/05/23 20:56 Senna/Docusate Sodium 1 Tablet PO BID PRN PRN Constipation Sodium Chloride 10 - 40 ml 10/06/23 00:39 0.9% Saline Lock 10 Ml Syringe IV UD PRN SALINE FLUSH Spironolactone 12.5 mg 10/06/23 10:00 10/08/23 08:20 Spironolactone 25 Mg Tablet PO 12.5 mg DAILY [facility] Administration Protocol Tamsulosin HCl 0.4 mg 10/08/23 17:30 Tamsulosin Hcl 0.4 Mg Capsule PO DAILY@1730 [facility] Tuberculin PPD 0.1 ml 10/13/23 10:00 Tuberculin,Purif.Prot.Deriv. 50 Tu/Ml Vial ID 10/13/23 10:01 X1 ONE Zinc Sulfate 50 mg 10/06/23 10:00 10/08/23 08:23 Zinc Sulfate 50 Mg Zinc (220 Mg) Oral Capsule PO 50 mg DAILY [facility] Administration Problem List (Updated 10/05/23 @ 20:[address] David Palmer MD) Stenosis of right carotid artery (Acute) Stroke (Acute) Insomnia (Acute) Hyperlipidemia (Acute) Hypertension (Chronic) Pleural effusion, left (Acute) Atrial fibrillation (Acute) Acute HFrEF (heart failure with reduced ejection fraction) (Acute) CAD (coronary artery disease) (Acute) NSTEMI (non-ST elevated myocardial infarction) (Acute) Debility (Acute) Vital Signs Temp Pulse Resp BP Pulse Ox O2 Del Method 97.4 F L 60 20 H 107/52 L 98 Room Air 10/07/23 14:04 10/07/23 20:38 10/07/23 14:04 10/07/23 20:38 10/07/23 14:04 10/07/23 14:04 Oxygen Delivery Method Room Air Weight: 90.174 kg Body Mass Index (BMI) 29.4 Sodium 138 mmol/L (136-145) 10/08/23 05:28 Potassium 4.1 mmol/L (3.5-5.1) 10/08/23 05:28 Chloride 107 mmol/L (98-107) 10/08/23 05:28 Carbon Dioxide 25.0 mmol/L (21.0-32.0) 10/08/23 05:28 Anion Gap 6 (5-15) 10/08/23 05:28 BUN 25 mg/dL (7-18) H 10/08/23 05:28 Creatinine 1.25 mg/dL (0.70-1.30) 10/08/23 05:28 Est GFR (MDRD) Af Amer 71 mL/min (>60) 10/08/23 05:28 Est GFR (MDRD) Non-Af 59 mL/min (>60) L 10/08/23 05:28 BUN/Creatinine Ratio 20.0 RATIO (10-20) 10/08/23 05:28 Glucose 98 mg/dL (74-106) 10/08/23 05:28 Assessment/Plan: 1. Pain: acetaminophen 1000mg PO Q6H PRN pain 1-10. Resident has not used any doses. Please continue to monitor for increased pain and PRN usage. 2. Bowel: Miralax 17gm PO daily thru 10/09/23 and senna/docusate 1T PO BID PRN constipation. No documented bowel movement. No PRN usage. Please consider giving senna/docusate. 3. Atrial fibrillation/CAD s/p stents x 3/HFrEF: metoprolol succinate 50mg PO QHS, amiodarone 400mg PO daily thru 11/04 then 200mg daily, apixaban 5mg PO BID, clopidogrel 75mg PO daily, empagliflozin 25mg PO daily, spironolactone 12.5mg PO daily and furosemide 20mg PO daily PRN swelling/dyspnea. Please continue to monitor HR (last 60), BP (last 107/52), potassium (last 4.1mmol/L), sodium (last 138mmol/L), SOB, S/S of bleeding, hemoglobin (last 10g/dL), glucose (last 98mg/dL), hemoglobin A1c (last 5.4% 09/23/23), swelling, renal function, PRN usage. No PRN furosemide has been given. 4. Hyperlipidemia: atorvastatin 40mg PO QHS. Please continue to monitor lipid panel (last 09/23/23), LFTs (last 09/25/23) and muscle pain. 5. GERD: pantoprazole 40mg PO daily. Please continue to monitor for S/S of GERD and diarrhea (BEERs medication). 6. Iron deficiency (based on hemoglobin 10g/dL): Ferrex 150mg PO DAILYCM and ascorbic acid 500mg PO daily. Please continue to monitor hemoglobin, dark stools, constipation and iron studies (last 10/07/23). 7. BPH/urinary retention: tamsulosin 0.4mg PO daily. Please continue to monitor for S/S of BPH and BP. 8. Zinc deficiency: zinc sulfate 50mg PO daily. Please continue to monitor. Assessment/Plan for indications treated with psychotropic medications: 1. Insomnia (per nursing note): doxepin 10mg PO QHS. GDR not appropriate at this time as this medication was just started, melatonin not effective. Please continue to monitor for excessive drowsiness, anticholinergic side effects (BEERs medication), fall/fractures (BEERs medication), dementia/delirium (BEERs medication) and BP. Medical chart and medication regimen reviewed. The following medication irregularities or issues were identified: None Date Date of Note:: 10/08/23 Documented by User: Dr. David Palmer MD 10/08/23 17:10 TCU RX Drug Regimen Review Provider Comments Provider responsibility Provider Comments to Recommendations by Pharmacy: Agree
[2023-10-08 14:30] VITALS: BP 101/55; PULSE 59; RESP 16; TEMP 36.9; O2SAT 97
[2023-10-08] MEDS: Tamsulosin HCl 0.4 MG Capsule PO (17:15)
[2023-10-08 20:20] VITALS: PULSE 61; RESP 18; O2SAT 96
[2023-10-08] MEDS: Doxepin Hydrochloride 10 MG Capsule PO (22:21)
[2023-10-08] MEDS: Atorvastatin Calcium 40 MG Tablet PO (22:22)
[2023-10-08 22:24] VITALS: BP 103/51; PULSE 66
[2023-10-08] MEDS: Metoprolol(XL)Succ 50 MG Tablet PO (22:24)
[2023-10-09 01:08] VITALS: BMI 30.4
--- NOTE | 2023-10-09 05:14 | NURSING ---
Life vest battery changed per order, Life vest in place and functioning properly. No distress observed or reported. Denies requests. Call light in reach.
[2023-10-09 06:00] VITALS: BMI 29.7
[2023-10-09 06:18] LABS: Anion Gap 5 (5-15); BUN 28 mg/dL (7-18); BUN/Creat Ratio 19.6 RATIO (10-20); Calcium,Total 8.3 mg/dL (8.5-10.1); Chloride 110 mmol/L (98-107); Creatinine, Serum 1.43 mg/dL (0.70-1.30); EST Glomerular Filtration Rate 51 mL/min (>60); Est Glom Filt Rate - Afr Amer 61 mL/min (>60); Estimated Creatinine Clearance 46.48 ml/min; Glucose 95 mg/dL (74-106); Potassium 4.4 mmol/L (3.5-5.1); Sodium Level 140 mmol/L (136-145)
[2023-10-09 07:16] LABS: Hemoglobin 9.6 g/dL (13.0-16.5); Mean Corpuscular Volume 96.9 fL (80-94); White Blood Count 7.3 K/mm3 (4.4-11.0)
[2023-10-09 07:17] LABS: Basophil% 0.8 % (0-1); Eosinophils% 2.6 % (0-5); Lymphocyte % 21.5 % (19-41); Monocyte% 9.7 % (0-10); Neutrophil % 64.7 % (47-70); Platelet Count 351 K/mm3 (150-450); RBC Distribution Width CV 13.5 % (11.6-14.6); RBC Distribution Width SD 47.8 fl (35.1-43.9)
[2023-10-09 07:18] LABS: Basophil# 0.06 X10^3/uL; Eosinophil# 0.19 X10^3/uL; Lymphocyte # 1.56 X10^3/ul (0.83-4.51); Neutrophil # 4.69 X10^3/uL (2.7-7.7)
[2023-10-09] MEDS: Iron Polysaccharide Complex 150 MG CAPSULE PO (08:33)
[2023-10-09] MEDS: Polyethylene Glycol 3350 17 GM PACKET PO (08:33)
[2023-10-09] MEDS: Ascorbic Acid 500 MG Tablet PO (08:34)
[2023-10-09] MEDS: Empagliflozin 25 MG Tablet PO (08:34)
[2023-10-09] MEDS: Amiodarone 200 MG Tablet 400 MG PO (08:34)
[2023-10-09] MEDS: Spironolactone 25 MG Tablet 12.5 MG PO (08:34)
[2023-10-09] MEDS: Zinc Sulfate 50 mg zinc (220 mg) ORAL capsule PO (08:34)
[2023-10-09] MEDS: Clopidogrel Bisulfate 75 MG Tablet PO (08:35)
[2023-10-09] MEDS: Nystatin Powder 15gm Bottle 1 APPLIC TOPICAL ×2 (08:35→21:05)
[2023-10-09] MEDS: Pantoprazole Sodium 40 MG Tablet PO (08:35)
[2023-10-09] MEDS: Menthol/Lanolin/Calamine/Znox 113 GM Tube 1 APPLIC TOPICAL ×2 (08:35→21:05)
[2023-10-09 09:58] VITALS: PULSE 60
[2023-10-09 14:19] LABS: Absolute Neutrophil Count 4.7 X10^3/uL (2.0-7.7)
--- NOTE | 2023-10-09 14:22 | CHAPLAIN ---
Type of Pastoral Visit _x__ Initial Visit ___ Follow-up Visit ___ On-call Visit ___ General Patient Visit ___ Spiritual Assessment ___ Family Conference ___ Bereavement ___ Rapid Response ___ Code Blue ___ Other (describe below) Pastoral Care Referral From _x__ Patient ___ Family ___ Nurse ___ Physician ___ Home Economics Extension Worker ___ Sack Department Supervisor ___ Other (describe below) Sacrament/Intervention _x__ Active listening ___ Anointing ___ Sabianism ___ Bereavement ___ Communion ___ Veronica exploration ___ _x__ Life review _x__ Prayer ___ Reconciliation ___ Sacrament of Sick _x__ Supportive presence ___ Wedding ___ Other (describe below) Pastoral Comments patient states how much he would prefer to be home; pt is alone at home and accepts this as temporary; pt speaks of his family history and of his who is now ; pt welcomes a prayer and time to have conversation
[2023-10-09 14:52] VITALS: BP 97/57; PULSE 52; RESP 14; TEMP 36.5; O2SAT 95
[2023-10-09] MEDS: Tamsulosin HCl 0.4 MG Capsule PO (17:35)
[2023-10-09] MEDS: Atorvastatin Calcium 40 MG Tablet PO (21:04)
[2023-10-09] MEDS: Doxepin Hydrochloride 10 MG Capsule PO (21:04)
[2023-10-09 21:05] VITALS: BP 101/54; PULSE 61
[2023-10-09] MEDS: Metoprolol(XL)Succ 50 MG Tablet PO (21:05)
--- NOTE | 2023-10-10 05:45 | NURSING ---
LIFE VEST BATTERY CHANGED PER ORDER, LIFE VEST IN PLACE AND FUNCTIONING PROPERLY. NO C/O CHEST PAIN, NO DIZZINESS. NO DISTRESS OBSERVED OR REPORTED. CALL LIGHT IN REACH. PATIENT REPORTS FEELING SOB AT TIMES DURING REST, SPO2 95% ON RA LUNG SOUNDS DIMINISHED, +2 EDEMA TO LLE, +1 EDEMA TO RLE. WRITTEN COMMUNICATION LEFT FOR DR. ANGLIN.
[2023-10-10 06:00] VITALS: BMI 30.5
[2023-10-10 06:42] LABS: Absolute Neutrophil Count 4.8 X10^3/uL (2.0-7.7); Basophil# 0.05 X10^3/uL; Basophil% 0.7 % (0-1); Eosinophil# 0.19 X10^3/uL; Eosinophils% 2.6 % (0-5); Hematocrit 30.9 % (40-54); Hemoglobin 9.2 g/dL (13.0-16.5); Lymphocyte % 20.9 % (19-41); Mean Corp Hgb Conc 29.8 g/dL (32-36); Mean Corpuscular Hgb 29.2 pg (27.0-32.0); Mean Corpuscular Volume 98.1 fL (80-94); Monocyte# 0.64 X10^3/uL; Monocyte% 8.9 % (0-10); NRBC Flagged by Analyzer 0 % (0-5); Neutrophil # 4.76 X10^3/uL (2.7-7.7); Neutrophil % 66.3 % (47-70); Platelet Count 344 K/mm3 (150-450); RBC Distribution Width CV 13.6 % (11.6-14.6); RBC Distribution Width SD 48.7 fl (35.1-43.9); Red Blood Count 3.15 M/mm3 (4.6-6.2); White Blood Count 7.2 K/mm3 (4.4-11.0)
[2023-10-10 06:48] LABS: Anion Gap 3 (5-15); BUN 28 mg/dL (7-18); BUN/Creat Ratio 20.9 RATIO (10-20); Calcium,Total 8.5 mg/dL (8.5-10.1); Chloride 107 mmol/L (98-107); Creatinine, Serum 1.34 mg/dL (0.70-1.30); EST Glomerular Filtration Rate 54 mL/min (>60); Est Glom Filt Rate - Afr Amer 66 mL/min (>60); Estimated Creatinine Clearance 49.05 ml/min; Glucose 98 mg/dL (74-106); Potassium 4.5 mmol/L (3.5-5.1); Sodium Level 137 mmol/L (136-145)
--- NOTE | 2023-10-10 08:20 | RAD_ITS ---
EXAM: XR CHEST, 2 VIEWS CLINICAL INDICATION: SOB, recent pleural effusion s/p thoracentesis. TECHNIQUE: Frontal and lateral views of the chest. COMPARISON: XR Chest dated 09/24/2023 FINDINGS: LUNGS AND PLEURAL SPACES: Small bilateral pleural effusions with bibasilar infiltrates/atelectasis. HEART: Normal heart size. MEDIASTINUM: No mediastinal or hilar mass. BONES/JOINTS: Postoperative changes of the left shoulder again seen as well as advanced arthritic changes of the right glenohumeral joint. RAD/Chest PA and Lateral IMPRESSION: New small bilateral pleural effusions with bibasilar infiltrates/atelectasis. Electronically Signed: Nick Hadley MD at 14:03 EDT ,
--- NOTE | 2023-10-10 09:04 | CASEMGMT ---
Social Work IDT meeting with patient at bedside and daughter, Vanessa on phone. Discussed patient progress with therapy, nursing, and dietary needs. SW educated patient and daughter of [employer] Medicare insurance coverage and next review date 10/17/2023. SW discussed patient prior level of functioning and goals of care. Patient informed SW that he has goals of returning home, but therapy expressed concerns for returning home at this time without assistance. Patient's daughter confirmed DME in the home: Raised toilet seat, cane, soda jerker, walker, and lift chair. Patient's daughter expressed concerns for toileting and ambulating in the bathroom. Family is currently obtaining quotes for walk in shower for accessibility. Patient has no history of home health care at this time. SW discussed home health care for supportive services and increased family involvement in the home. Patient's daughter is willing to increase in home support as needed. SW will complete initial intake assessment with patient. SW will continue to follow for discharge planning. SUZANNE Alfaro.
[2023-10-10] MEDS: Spironolactone 25 MG Tablet 12.5 MG PO (09:51)
[2023-10-10] MEDS: Amiodarone 200 MG Tablet 400 MG PO (09:52)
[2023-10-10] MEDS: Iron Polysaccharide Complex 150 MG CAPSULE PO (09:52)
[2023-10-10] MEDS: Empagliflozin 25 MG Tablet PO (09:52)
[2023-10-10] MEDS: Pantoprazole Sodium 40 MG Tablet PO (09:53)
[2023-10-10] MEDS: Clopidogrel Bisulfate 75 MG Tablet PO (09:53)
[2023-10-10] MEDS: Ascorbic Acid 500 MG Tablet PO (09:53)
[2023-10-10] MEDS: Zinc Sulfate 50 mg zinc (220 mg) ORAL capsule PO (09:53)
[2023-10-10] MEDS: Menthol/Lanolin/Calamine/Znox 113 GM Tube 1 APPLIC TOPICAL ×2 (09:55→21:33)
[2023-10-10] MEDS: Nystatin Powder 15gm Bottle 1 APPLIC TOPICAL ×2 (09:56→21:32)
[2023-10-10 11:24] VITALS: BP 108/57; PULSE 57; RESP 16; TEMP 36.6; O2SAT 98
[2023-10-10] MEDS: Furosemide 40 MG Tablet PO (12:19)
--- NOTE | 2023-10-10 17:18 | NURSING ---
CXR this AM for increased SOB. Results showed bilateral infiltrates. Dr Palmer made aware and NO for Doxycycline for 7 days.
[2023-10-10] MEDS: Tamsulosin HCl 0.4 MG Capsule PO (17:25)
[2023-10-10] MEDS: Doxycycline 100 MG CAPSULE PO (21:29)
[2023-10-10] MEDS: Atorvastatin Calcium 40 MG Tablet PO (21:29)
[2023-10-10 21:31] VITALS: BP 100/55; PULSE 70
[2023-10-10] MEDS: Doxepin Hydrochloride 10 MG Capsule PO (21:31)
[2023-10-10] MEDS: Metoprolol(XL)Succ 50 MG Tablet PO (21:31)
[2023-10-10 21:39] VITALS: PULSE 70; RESP 16; O2SAT 94
[2023-10-11 05:37] LABS: Hematocrit 31.9 % (40-54); Hemoglobin 9.7 g/dL (13.0-16.5)
[2023-10-11 06:00] VITALS: BMI 30.4
[2023-10-11 06:04] LABS: Anion Gap 3 (5-15); BUN 27 mg/dL (7-18); BUN/Creat Ratio 18.4 RATIO (10-20); Calcium,Total 8.5 mg/dL (8.5-10.1); Chloride 107 mmol/L (98-107); Creatinine, Serum 1.47 mg/dL (0.70-1.30); EST Glomerular Filtration Rate 49 mL/min (>60); Est Glom Filt Rate - Afr Amer 59 mL/min (>60); Estimated Creatinine Clearance 45.27 ml/min; Glucose 95 mg/dL (74-106); Potassium 4.5 mmol/L (3.5-5.1); Sodium Level 138 mmol/L (136-145)
[2023-10-11 09:31] VITALS: BP 110/55; RESP 50; TEMP 36.2; O2SAT 96
[2023-10-11] MEDS: Iron Polysaccharide Complex 150 MG CAPSULE PO (09:33)
[2023-10-11] MEDS: Amiodarone 200 MG Tablet 400 MG PO (09:33)
[2023-10-11] MEDS: Zinc Sulfate 50 mg zinc (220 mg) ORAL capsule PO (09:33)
[2023-10-11] MEDS: Doxycycline 100 MG CAPSULE PO ×2 (09:33→20:13)
[2023-10-11] MEDS: Empagliflozin 25 MG Tablet PO (09:33)
[2023-10-11] MEDS: Pantoprazole Sodium 40 MG Tablet PO (09:33)
[2023-10-11] MEDS: Clopidogrel Bisulfate 75 MG Tablet PO (09:33)
[2023-10-11] MEDS: Furosemide 40 MG Tablet PO (09:33)
[2023-10-11] MEDS: Ascorbic Acid 500 MG Tablet PO (09:33)
[2023-10-11] MEDS: Spironolactone 25 MG Tablet 12.5 MG PO (09:34)
[2023-10-11] MEDS: Menthol/Lanolin/Calamine/Znox 113 GM Tube 1 APPLIC TOPICAL ×2 (09:34→20:14)
[2023-10-11] MEDS: Nystatin Powder 15gm Bottle 1 APPLIC TOPICAL ×2 (09:35→20:14)
--- NOTE | 2023-10-11 11:50 | NURSING ---
Friend to unit to see pt.
--- NOTE | 2023-10-11 14:49 | CASEMGMT ---
Social Work SW met with patient at bedside to complete initial intake assessment. SW introduced self and role. Patient verified demographics and contact information. Patient informed SW that he was unsure of his code status. Patient informed SW that his code status depends on condition; patient remain full code at this time. Patient informed SW that he does not have an advanced directive or living will. The patient informed SW that he would like additional information regarding advance directive. SW provided patient with information regarding [employer] Advance Directive information. Patient informed SW that he will review information. SW reviewed patient's [employer] Medicare coverage and next review date 10/17/2023. Patient understands that continued coverage to remain on TCU is not guaranteed. SW discussed patient's goals. Patient would like to return home with assistance. SW discussed home health care services with patient. Patient is agreeable to home health care services. SW provided patient with a printed home health care provider list that is the patient's preferred geographic area, medical needs, insurance network. Patient will review list with family to obtain choice. SW will continue to follow for discharge planning. SUZANNE Alfaro
--- NOTE | 2023-10-11 16:33 | NURSING ---
pt scratching right forearm and caused skin tear. Dressing applied.
[2023-10-11] MEDS: Tamsulosin HCl 0.4 MG Capsule PO (16:37)
--- NOTE | 2023-10-11 18:03 | CON.PCM.GI_ITS ---
HPI Consult Data Date of Consult: 10/11/23 HPI Narrative Reason for Consultation: Anemia and fecal occult positive stools HPI Narrative: TELLO BLANKENSHIP, is a 78 M who presented as a direct transfer from [facility] for an NSTEMI on 09/23/2023. He originally presented to [facility] on 09/18/2023 for a planned elective total hip replacement with Dr. Robledo. The procedure was noted to be fairly complicated and required wound VAC placement. 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 Skilled rehab was recommended for discharge and the patient was in the process of transitioning to the [facility] TCU on 09/22/2023 however on the morning of 09/23/2023 he became acutely short of breath and his vital signs were were stable and he was not hypoxic however stat labs were ordered and he was found to have a markedly elevated D-dimer at 2557 and a troponin of 6365. EKG at that time showed sinus tachycardia with ST segment depressions and no previous for comparison. CTA of the chest was negative for PE and showed only small bilateral pleural effusions. Given his troponin elevation and the concern for an NSTEMI he was transferred here for further management. Upon arrival cardiology was consulted and plan was for catheterization which was done today on 09/24/2023 and noted subtotal heavy calcified proximal left circumflex that was unable to be crossed with a wire, 50% distal LMCA, 50% calcified ostial LAD, 70% calcified ostial D1, and 80% heavily calcified ostial and proximal RCA. Unsuccessful PCI of the subtotal heavily calcified proximal left circumflex was attempted and medical therapy was recommended however I did discuss the case with Dr. Jackman and he felt that transfer to tertiary center may be required and would like to discuss it with tertiary manufacturers agent. Shortly after he returned from his cardiac catheterization at which time he was noted to be hypoxic with oxygen saturations at 79% on room air. He was placed on a nonrebreather with improvement in his oxygen saturations and cardiology was called to the bedside. A stat echocardiogram was obtained and found to show an EF of 25% with normal LV size, lateral wall in particular appeared to be severely hypokinetic with mild to moderate mitral valve insufficiency. He was maintained on BiPAP and given some IV fluids. ABG/chest x-ray/BNP were obtained and found to be stable without any acute etiology. Clinically he improved and had been weaned to room air. Lower extremity Dopplers were done and showed no DVT. The intent was to perform a CTA of his chest here given his decompensation after cardiac catheterization however we wanted to make sure that his renal function was stable after his cardiac cath eterization with a dye load and get it on 09/25/2023. He was transferred for complex PCI at [facility]. Dr. Magaña performed NORIS x 3 to LM, LAD, RCA. Decompensated heart failure, atrial fibrillation/atrial flutter status post DCCV. On 09/30/2023 Echo EF 15%, 2+ MR, Mild . On 10/03/2023 Worsening SOB. A thoracentesis planned for large left pleural effusion. He was treated medically He was started on these medications torsemide 10mg daily, Spironolactone, continue Metoprolol succinate 75mg daily. Eliquis 5mg bid, Metoprolol succinate 75mg daily, Amiodarone 400mg bid for atrial fibrillation. 10/05/2023 Life Vest and was admitted to TCU with debility, here for rehabilitation, strengthening, p rior to discharge home alone. I was consulted to see him because his hemoglobin has been dropping and he is fecal occult positive along with him never having a colonoscopy in the past. [facility] Medical History (Updated 10/05/23 @ 20:[address] David Palmer MD) Arthritis CAD (coronary artery disease) Dyslipidemia History of CVA (cerebrovascular accident) Hypertension Leaky heart valve Home Medications hydrocodone-acetaminophen 5-325mg 5mg-325mg 1 tab PO Q6H PRN hip pain 04/27/23 [History Last Taken 04/27/23 06:30] atorvastatin 40 mg tablet 40 mg PO QHS cholesterol #90 tabs 05/14/23 [Rx Last Taken 10/05/23] metoprolol succinate 25 mg tablet,extended release 24 hr 50 mg (2 x 25 mg) PO DA PATTI heart blockage #180 tabs 06/01/23 [Rx Last Taken Unknown] melatonin 10 mg capsule 10 mg PO QHS sleep 09/23/23 [History Last Taken 10/01/23] clopidogrel 75 mg tablet (Plavix) 75 mg PO DAILY antiplatelet 10/05/23 [History Last Taken 10/05/23] Allergy/AdvReac Type Severity Reaction Status Date / Time sacubitril [From Entresto] Allergy Mild cough Verified 06/19/23 10:31 valsartan [From Entresto] Allergy Mild cough Verified 06/19/23 10:31 Surgical History (Updated 10/05/23 @ 20:[address] David Palmer MD) History of total left hip arthroplasty History of total right knee replacement Social History (Updated 10/05/23 @ 20:[address] David Palmer MD) household members: none Smoking Status: Never smoker alcohol intake: never substance use type: does not use ROS Constitutional Constitutional: Reports fatigue and weakness; Denies chills, fever(s) or weight gain ENT HEENT: Denies headache(s), nasal congestion or nasal discharge Cardiovascular Cardiovascular: Denies chest pain or palpitations Respiratory/Chest Respiratory/Chest: Reports shortness of breath with exertion; Denies cough or excessive phlegm production Gastrointestinal Gastrointestinal: Denies abdominal pain, nausea or vomiting Genitourinary Genitourinary: Denies dysuria Musculoskeletal Musculoskeletal: Denies joint pain or joint swelling Integumentary Integumentary: Denies rash or wounds Neurologic Neurologic: Denies focal weakness, numbness or tingling Psychiatric Psychiatric: Denies anxiety, auditory hallucinations, depression, homicidal ulisses ation or suicidal ideation Physical Exam Const alert General Appearance: cooperative HEENT normocephalic Eyes PERRL and EOMs intact bilaterally Neck supple, no JVD and no carotid bruits Chest Chest Narrative: Life Vest. Resp normal respiratory effort, normal air movement and clear to auscultation bilaterally Cardio regular rate and regular rhythm GI normal to inspection, nondistended, normoactive bowel sounds, non-tender and non-distended Extremity normal capillary refill General Extremity: Negative for edema Skin no rashes or lesions noted General Skin Exam: no breakdown Psych affect normal Appearance: appropriate Lab / Micro Data 10/11/23 05:28 10/11/23 05:28 Labs: Laboratory Results - last 24 hr 10/11/23 05:28: Hgb 9.7 L, Hct 31.9 L, Sodium 138, Potassium 4.5, Chloride 107, Carbon Dioxide 28.0, Anion Gap 3 L, BUN 27 H, Creatinine 1.47 H, Estim Creat Clear Calc 45.27, Est GFR (MDRD) Af Amer 59 L, Est GFR (MDRD) Non-Af 49 L, BUN/Creatinine Ratio 18.4, Glucose 95, Calcium 8.5 Assessment & Plan Assessment/Plan (1) Debility: (2) NSTEMI (non-ST elevated myocardial infarction): (3) CAD (coronary artery disease): (4) Acute HFrEF (heart failure with reduced ejection fraction): (5) Atrial fibrillation: (6) Pleural effusion, left: (7) Hypertension: (8) Hyperlipidemia: (9) Insomnia: (10) Stroke: (11) Stenosis of right carotid artery: PLAN: Plan 78 year old male with multiple medical problems including recently hospitalized for NSTEMI, underwent stents x 3, complicated by acute HFrEF (EF 15%), afib/aflutter s/p DCCV, left pleural effusion requiring thoracentesis, admitted to TCU with debility, here for rehabilitation, strengthening, prior to discharge home alone. His hemoglobin is 9.7 and has been ranging around 9-9.9. Prior to his AK his hemoglobin was 14. He is on Eliquis will along with having coronary artery disease and being on Plavix he is high risk for GI bleed. He has never had a colonoscopy so that increase her risk of malignancy. He should undergo an upper and lower endoscopy to evaluate his upper and lower GI tract. He was explained alternatives, risk, benefits including not withstanding bleeding, infection, sepsis, perforation, need for emergent surgery and . He will have an ASA of 3. Charges/Coding Visit Charges Inpatient E&M: 32388 SNF Init L2
[2023-10-11] MEDS: Bisacodyl 5 MG Tablet 20 MG PO (20:12)
[2023-10-11] MEDS: Doxepin Hydrochloride 10 MG Capsule PO (20:13)
[2023-10-11] MEDS: Atorvastatin Calcium 40 MG Tablet PO (20:14)
[2023-10-11 20:15] VITALS: BP 110/58; PULSE 61
[2023-10-11] MEDS: Metoprolol(XL)Succ 50 MG Tablet PO (20:15)
[2023-10-11 20:26] VITALS: BP 110/58; PULSE 61
[2023-10-11] MEDS: Polyethylene Glycol 3350 BOWEL PREP 1 BOTTLE PO (22:32)
[2023-10-12 05:51] LABS: Hematocrit 31.5 % (40-54); Hemoglobin 9.7 g/dL (13.0-16.5)
[2023-10-12] MEDS: Amiodarone 200 MG Tablet 400 MG PO (08:07)
[2023-10-12] MEDS: Doxycycline 100 MG CAPSULE PO ×2 (08:08→20:19)
[2023-10-12] MEDS: Acetaminophen 500 MG Tablet 1000 MG PO (08:14)
--- NOTE | 2023-10-12 09:33 | NURSING ---
Director Of Nursing Note; MDS for 10/12/2023 Complete
--- NOTE | 2023-10-12 14:45 | NURSING ---
Surgery here to pick patient up for colonoscopy and EGD at 1430 in the bed.
[2023-10-12 14:49] VITALS: BP 120/73; PULSE 68; RESP 18; TEMP 36.2; O2SAT 97
--- NOTE | 2023-10-12 15:00 | NURSING ---
Nursing called from PACU prior to patient receiving procedure and says he is reporting left shoulder pain. This nurse made her aware he had c/o shoulder pain this AM that was alleviated by tylenol and VS WNL. Nurse denied further questions at that time but appears patient received an EKG while down for procedure.
--- NOTE | 2023-10-12 16:53 | CASEMGMT ---
Social Work SW met with patient to complete MDS. Patient complete BIM (06/01) and PHQ-2 () SUZANNE Alfaro
--- NOTE | 2023-10-12 17:51 | NURSING ---
Patient return from PACU at this time and tolerated colonoscopy and EGD well. Order to hold blood thinner today but can resume diet and other medications.
[2023-10-12] MEDS: Spironolactone 25 MG Tablet 12.5 MG PO (18:22)
[2023-10-12] MEDS: Iron Polysaccharide Complex 150 MG CAPSULE PO (18:22)
[2023-10-12] MEDS: Empagliflozin 25 MG Tablet PO (18:23)
[2023-10-12] MEDS: Furosemide 40 MG Tablet PO (18:23)
[2023-10-12] MEDS: Ascorbic Acid 500 MG Tablet PO (18:25)
[2023-10-12] MEDS: Tamsulosin HCl 0.4 MG Capsule PO (18:26)
[2023-10-12] MEDS: Zinc Sulfate 50 mg zinc (220 mg) ORAL capsule PO (18:26)
[2023-10-12] MEDS: Menthol/Lanolin/Calamine/Znox 113 GM Tube 1 APPLIC TOPICAL ×2 (18:28→20:19)
[2023-10-12] MEDS: Nystatin Powder 15gm Bottle 1 APPLIC TOPICAL ×2 (18:28→20:18)
[2023-10-12] MEDS: Pantoprazole Sodium 40 MG Tablet PO (18:35)
[2023-10-12 20:20] VITALS: BP 104/52; PULSE 80
[2023-10-12] MEDS: Atorvastatin Calcium 40 MG Tablet PO (20:20)
[2023-10-12] MEDS: Doxepin Hydrochloride 10 MG Capsule PO (20:20)
[2023-10-12] MEDS: Metoprolol(XL)Succ 50 MG Tablet PO (20:20)
[2023-10-12 20:25] VITALS: BP 104/52; PULSE 80
[2023-10-12 20:27] VITALS: PULSE 80; RESP 16
[2023-10-13] MEDS: Acetaminophen 500 MG Tablet 1000 MG PO ×2 (00:50→23:16)
[2023-10-13 06:59] LABS: Hematocrit 34.4 % (40-54); Hemoglobin 10.5 g/dL (13.0-16.5)
[2023-10-13] MEDS: Ascorbic Acid 500 MG Tablet PO (09:12)
[2023-10-13] MEDS: Zinc Sulfate 50 mg zinc (220 mg) ORAL capsule PO (09:12)
[2023-10-13] MEDS: Empagliflozin 25 MG Tablet PO (09:12)
[2023-10-13] MEDS: Pantoprazole Sodium 40 MG Tablet PO (09:12)
[2023-10-13] MEDS: Doxycycline 100 MG CAPSULE PO ×2 (09:13→23:06)
[2023-10-13] MEDS: Clopidogrel Bisulfate 75 MG Tablet PO (09:13)
[2023-10-13] MEDS: Iron Polysaccharide Complex 150 MG CAPSULE PO (09:13)
[2023-10-13 10:00] VITALS: PULSE 82; RESP 14; O2SAT 95
[2023-10-13] MEDS: Spironolactone 25 MG Tablet 12.5 MG PO (11:15)
[2023-10-13] MEDS: Amiodarone 200 MG Tablet 400 MG PO (11:15)
[2023-10-13] MEDS: Tuberculin,Purif.prot.deriv. 50 TU/ML Vial 0.1 ML ID (11:16)
[2023-10-13] MEDS: Menthol/Lanolin/Calamine/Znox 113 GM Tube 1 APPLIC TOPICAL ×2 (11:17→23:16)
[2023-10-13] MEDS: Nystatin Powder 15gm Bottle 1 APPLIC TOPICAL ×2 (11:17→23:16)
[2023-10-13 15:57] VITALS: BP 107/52; PULSE 78; RESP 14; TEMP 36.9; O2SAT 94
[2023-10-13] MEDS: Tamsulosin HCl 0.4 MG Capsule PO (17:21)
[2023-10-13] MEDS: Doxepin Hydrochloride 10 MG Capsule PO (23:07)
[2023-10-13] MEDS: Atorvastatin Calcium 40 MG Tablet PO (23:07)
[2023-10-13 23:15] VITALS: BP 100/60; PULSE 72
[2023-10-14 05:20] VITALS: BMI 29.8
[2023-10-14] MEDS: Empagliflozin 25 MG Tablet PO (09:49)
[2023-10-14] MEDS: Zinc Sulfate 50 mg zinc (220 mg) ORAL capsule PO (09:49)
[2023-10-14] MEDS: Pantoprazole Sodium 40 MG Tablet PO (09:49)
[2023-10-14] MEDS: Furosemide 40 MG Tablet PO (09:49)
[2023-10-14] MEDS: Clopidogrel Bisulfate 75 MG Tablet PO (09:49)
[2023-10-14] MEDS: Amiodarone 200 MG Tablet 400 MG PO (09:49)
[2023-10-14] MEDS: Doxycycline 100 MG CAPSULE PO ×2 (09:49→21:32)
[2023-10-14] MEDS: Ascorbic Acid 500 MG Tablet PO (09:49)
[2023-10-14] MEDS: Iron Polysaccharide Complex 150 MG CAPSULE PO (09:50)
[2023-10-14] MEDS: Spironolactone 25 MG Tablet 12.5 MG PO (09:50)
[2023-10-14] MEDS: Nystatin Powder 15gm Bottle 1 APPLIC TOPICAL ×2 (09:52→21:30)
[2023-10-14] MEDS: Menthol/Lanolin/Calamine/Znox 113 GM Tube 1 APPLIC TOPICAL ×2 (09:53→21:33)
[2023-10-14 16:00] VITALS: BP 112/78; PULSE 76; RESP 12; TEMP 36.8; O2SAT 95
[2023-10-14] MEDS: Tamsulosin HCl 0.4 MG Capsule PO (18:04)
[2023-10-14 21:32] VITALS: BP 108/63; PULSE 66
[2023-10-14] MEDS: Atorvastatin Calcium 40 MG Tablet PO (21:32)
[2023-10-14] MEDS: Metoprolol(XL)Succ 50 MG Tablet PO (21:32)
[2023-10-14] MEDS: Doxepin Hydrochloride 10 MG Capsule PO (21:32)
[2023-10-15 06:00] VITALS: BMI 29.9
[2023-10-15 10:00] VITALS: PULSE 80; RESP 12
[2023-10-15] MEDS: Spironolactone 25 MG Tablet 12.5 MG PO (11:22)
[2023-10-15] MEDS: Doxycycline 100 MG CAPSULE PO ×2 (11:23→20:17)
[2023-10-15] MEDS: Pantoprazole Sodium 40 MG Tablet PO (11:23)
[2023-10-15] MEDS: Zinc Sulfate 50 mg zinc (220 mg) ORAL capsule PO (11:23)
[2023-10-15] MEDS: Ascorbic Acid 500 MG Tablet PO (11:23)
[2023-10-15] MEDS: Iron Polysaccharide Complex 150 MG CAPSULE PO (11:23)
[2023-10-15] MEDS: Amiodarone 200 MG Tablet 400 MG PO (11:23)
[2023-10-15] MEDS: Empagliflozin 25 MG Tablet PO (11:23)
[2023-10-15] MEDS: Clopidogrel Bisulfate 75 MG Tablet PO (11:23)
[2023-10-15] MEDS: Furosemide 40 MG Tablet PO (11:23)
[2023-10-15] MEDS: Nystatin Powder 15gm Bottle 1 APPLIC TOPICAL ×2 (11:24→20:19)
[2023-10-15] MEDS: Menthol/Lanolin/Calamine/Znox 113 GM Tube 1 APPLIC TOPICAL ×2 (11:26→20:21)
[2023-10-15 16:00] VITALS: BP 122/76; PULSE 74; RESP 12; TEMP 36.6; O2SAT 95
[2023-10-15] MEDS: Tamsulosin HCl 0.4 MG Capsule PO (16:46)
[2023-10-15] MEDS: Atorvastatin Calcium 40 MG Tablet PO (20:16)
[2023-10-15 20:17] VITALS: BP 102/51; PULSE 58
[2023-10-15] MEDS: Metoprolol(XL)Succ 50 MG Tablet PO (20:17)
[2023-10-15] MEDS: Doxepin Hydrochloride 10 MG Capsule PO (20:18)
[2023-10-15] MEDS: APIXABAN 5 MG TABLET PO (22:00)
[2023-10-16 01:00] VITALS: BMI 29.9
[2023-10-16 06:00] VITALS: BMI 29.9
--- NOTE | 2023-10-16 08:37 | NURSING ---
Concerns for significant change in pulse rate for patient as well as low blood pressures beginning to trend. Patient received 50 mg of metoprolol qhs, 400 mg of amiodarone daily, 12.5mg of aldactone, 40 mg of Furosemide daily. Concerns expressed to MD in regards to this trending as Sunday10/13/23 Patient was hypotensive of 84/37, pulse sporadic at 60-90 BPM. Patient BP this morning 10/16/23 was 97-44, pulse of 53 and regular. Patient visibly fatigued and dozing. Patient denies dizziness. Call put into MD, Per MD change amiodarone 400 mg to 200 mg daily. Hold 40 mg of lasix today. As well as decrease metoprolol qhs to 25 mg. Orders given to RN and added to AUG.
[2023-10-16] MEDS: Amiodarone 200 MG Tablet PO (11:43)
[2023-10-16] MEDS: Empagliflozin 25 MG Tablet PO (11:43)
[2023-10-16] MEDS: Iron Polysaccharide Complex 150 MG CAPSULE PO (11:43)
[2023-10-16] MEDS: Doxycycline 100 MG CAPSULE PO ×2 (11:43→21:25)
[2023-10-16] MEDS: Zinc Sulfate 50 mg zinc (220 mg) ORAL capsule PO (11:43)
[2023-10-16] MEDS: Spironolactone 25 MG Tablet 12.5 MG PO (11:43)
[2023-10-16] MEDS: Pantoprazole Sodium 40 MG Tablet PO (11:43)
[2023-10-16] MEDS: Clopidogrel Bisulfate 75 MG Tablet PO (11:43)
[2023-10-16] MEDS: APIXABAN 5 MG TABLET PO ×2 (11:43→21:25)
[2023-10-16] MEDS: Ascorbic Acid 500 MG Tablet PO (11:43)
[2023-10-16] MEDS: Nystatin Powder 15gm Bottle 1 APPLIC TOPICAL ×2 (11:47→21:30)
--- NOTE | 2023-10-16 13:45 | MDS.RN ---
Information for the MDS was obtained from review of the clinical record, interview of resident, staff, and direct observation of resident?s care.
[2023-10-16 15:07] VITALS: BP 124/78; PULSE 74; RESP 16; TEMP 36.9; O2SAT 98
[2023-10-16] MEDS: Tamsulosin HCl 0.4 MG Capsule PO (17:42)
[2023-10-16] MEDS: Menthol/Lanolin/Calamine/Znox 113 GM Tube 1 APPLIC TOPICAL ×2 (17:43→21:29)
[2023-10-16 19:39] VITALS: PULSE 63; RESP 16; O2SAT 95
[2023-10-16] MEDS: Doxepin Hcl 25 MG Capsule PO (21:25)
[2023-10-16] MEDS: Atorvastatin Calcium 40 MG Tablet PO (21:26)
[2023-10-16 21:28] VITALS: BP 109/51; PULSE 63
[2023-10-16] MEDS: Metoprolol(XL)Succ 25 MG Tablet PO (21:28)
[2023-10-17 05:05] VITALS: BMI 29.9
[2023-10-17] MEDS: Spironolactone 25 MG Tablet 12.5 MG PO (08:38)
[2023-10-17] MEDS: Amiodarone 200 MG Tablet PO (08:39)
[2023-10-17] MEDS: Empagliflozin 25 MG Tablet PO (08:40)
[2023-10-17] MEDS: Furosemide 40 MG Tablet PO (08:40)
[2023-10-17] MEDS: APIXABAN 5 MG TABLET PO ×2 (08:40→21:58)
[2023-10-17] MEDS: Iron Polysaccharide Complex 150 MG CAPSULE PO (08:40)
[2023-10-17] MEDS: Doxycycline 100 MG CAPSULE PO ×2 (08:40→21:58)
[2023-10-17] MEDS: Zinc Sulfate 50 mg zinc (220 mg) ORAL capsule PO (08:41)
[2023-10-17] MEDS: Pantoprazole Sodium 40 MG Tablet PO (08:41)
[2023-10-17] MEDS: Ascorbic Acid 500 MG Tablet PO (08:41)
[2023-10-17] MEDS: Clopidogrel Bisulfate 75 MG Tablet PO (08:41)
[2023-10-17] MEDS: Menthol/Lanolin/Calamine/Znox 113 GM Tube 1 APPLIC TOPICAL ×2 (08:43→21:57)
[2023-10-17] MEDS: Nystatin Powder 15gm Bottle 1 APPLIC TOPICAL ×2 (08:44→21:51)
[2023-10-17 16:00] VITALS: BP 96/52; PULSE 54; RESP 16; TEMP 36.4; O2SAT 97
[2023-10-17] MEDS: Tamsulosin HCl 0.4 MG Capsule PO (17:16)
--- NOTE | 2023-10-17 17:34 | CASEMGMT ---
Social Work SW received insurance notification that the patient has received Notice of Medicare Non-Coverage effective discontinuation of services for current [facility] Facility end: 10/20/2023; anticipated discharge 10/21/2023 SW met with patient at bedside to inform of [employer] and Medicare Right to Appeal via [employer] [phone]. Patient informed KARLY that he does not want to appeal discharge at this time. Patient informed SW that he would like to discharge home on 10/21/23. Patient anticipates discharge on 10/21/2023 to home with home health care services PT/OT/SN. Patient still needs to provide choice for home health care services. Discharge: Home with home health PT/OT/SN SUZANNE Alfaro
--- NOTE | 2023-10-17 21:04 | DS.PCM_ITS ---
Providers Date of Admission: 10/05/23 Primary Care Physician: Dr. Sebastián Stewart MD Consultations 10/10/23 19:34 Consult: Gastroenterology Routine Consulting Provider: Friend,Jose Reason for Consult: Blood in stool, anemia EMERGENT Consult: No MD Notified: Yes Date Notified: 10/10/23 Time Notified: 11:23 Method of Notification: Text Reason For Visit: NSTEMI/AFIB RVR Diagnosis Discharge Diagnosis (1) Debility: Status: Acute Code(s): R53.81 - Other malaise (2) NSTEMI (non-ST elevated myocardial infarction): Status: Acute Code(s): I21.4 - Non-ST elevation (NSTEMI) myocardial infarction (3) CAD (coronary artery disease): Status: Acute Code(s): I25.10 - Atherosclerotic heart disease of [place] coronary artery without angina pectoris (4) Acute HFrEF (heart failure with reduced ejection fraction): Status: Acute Code(s): I50.21 - Acute systolic (congestive) heart failure (5) Atrial fibrillation: Status: Acute Code(s): I48.91 - Unspecified atrial fibrillation (6) Pleural effusion, left: Status: Acute Code(s): J90 - Pleural effusion, not elsewhere classified (7) Hypertension: Status: Chronic Code(s): I10 - Essential (primary) hypertension (8) Hyperlipidemia: Status: Acute Code(s): E78.5 - Hyperlipidemia, unspecified (9) Insomnia: Status: Acute Code(s): G47.00 - Insomnia, unspecified (10) Stroke: Status: Acute Code(s): I63.9 - Cerebral infarction, unspecified (11) Stenosis of right carotid artery: Status: Acute Code(s): I65.21 - Occlusion and stenosis of right carotid artery Plan 78 year old male with below past medical history hospitalized for NSTEMI, underwent stents x 3, complicated by acute HFrEF (EF 15%), afib/aflutter s/p DCCV, left pleural effusion requiring thoracentesis, admitted to TCU with debility, here for rehabilitation, strengthening, prior to discharge home alone. * Debility - PT/OT. * Pain - Tylenol 1000mg q6 prn pain (1-10). * Bowel - Miralax 17gm daily, senna/colace 1 tablet bid prn. * Adult immunization - Administer pneumonia vaccine, covid vaccine, flu vaccine as appropriate * DVT prophylaxis - Eliquis 5mg bid. * Atrial fibrillation - Metoprolol succinate 50mg po qhs, Amiodarone 400mg daily thru 11/05/2023, then 200mg daily, Eliquis 5mg bid. * Hyperlipidemia - Atorvastatin 40mg qhs. * Coronary artery disease s/p stents x 3 - Metoprolol succinate 50mg qhs, Eliquis 5mg bid, Plavix 75mg daily. * HFrEF - Metoprolol succinate 50mg qhs, Entresto intolerable, Jardiance 25mg daily, Spironolactone 12.5mg daily, Furosemide 20mg daily prn. * Insomnia - Melatonin 10mg qhs prn. * GERD - Pantoprazole 40mg daily. * Zinc deficiency - Zinc 50mg daily. Medications at Discharge Home Medications acetaminophen 500 mg tablet 1,000 mg (2 x 500 mg) PO Q6H PRN PRN Pain Score 1-10 #0 tabs 10/17/23 amiodarone 200 mg tablet 200 mg PO DAILY 30 days #30 tabs 10/17/23 apixaban 5 mg tablet (Eliquis) 5 mg PO BID 30 days #60 tabs 10/17/23 ascorbic acid (vitamin C) 500 mg tablet 500 mg PO DAILY 30 days #30 tabs 10/17/23 atorvastatin 40 mg tablet 40 mg PO QHS #0 tabs 10/17/23 clopidogrel 75 mg tablet 75 mg PO DAILY #0 tabs 10/17/23 empagliflozin 25 mg tablet (Jardiance) 25 mg PO DAILY 30 days #30 tabs 10/17/23 furosemide 40 mg tablet 40 mg PO DAILY 30 days #30 tabs 10/17/23 metoprolol succinate 25 mg tablet,extended release 24 hr 25 mg PO QHS #0 tabs 10/17/23 pantoprazole 40 mg tablet,delayed release 40 mg PO DAILY 30 days #30 tabs 10/17/23 polysaccharide iron complex 150 mg iron capsule (Ferrex) 150 mg PO DAILY 30 days #30 caps 10/17/23 spironolactone 25 mg tablet 12.5 mg (1/2 x 25 mg) PO DAILY 30 days #15 tabs 10/17/23 tamsulosin 0.4 mg capsule 0.4 mg PO DAILY@1730 30 days #30 caps 10/17/23 Hospital Course Operations - (See below.) Procedures Colonoscopy and EGD Summary of Care Provided Minutes Spent on Discharge: 35 Hospital Course: 78 year old male with below past medical history hospitalized for NSTEMI, underwent stents x 3, complicated by acute HFrEF (EF 15%), afib/aflutter s/p DCCV, left pleural effusion requiring thoracentesis, admitted to TCU with debility, here for rehabilitation, strengthening, prior to discharge home alone. 10/12/2023 Dr. Mckinney EGD: Impressions : - Normal esophagus. 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 Treated with a heater probe. - Two duodenal polyps. Resected and retrieved. 10/12/2023 Dr. Mckinney colonoscopy: Impressions : - Preparation of the colon was fair. - Diverticulosis in the recto-sigmoid colon and in the sigmoid colon. - Six 1 to 2 mm polyps in the sigmoid colon, at the hepatic flexure and in the cecum, removed with a cold snare. Resected and retrieved. Clips were placed. 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 - Three non-bleeding colonic angiodysplastic lesions. Treated with a heater probe. - One 3 mm polyp in the sigmoid colon, removed with a jumbo cold forceps. Resected and retrieved. Treated with a heater probe. Discharge home alone 10/21/2023, [facility] PT/OT/SN. Physical Exam Const alert General Appearance: cooperative HEENT normocephalic Eyes PERRL and EOMs intact bilaterally Neck supple, no JVD and no carotid bruits Chest Chest Narrative: Life Vest. Resp normal respiratory effort, normal air movement and clear to auscultation laila aterally Cardio regular rate and regular rhythm GI normal to inspection, nondistended, normoactive bowel sounds, non-tender and non-distended Extremity normal capillary refill General Extremity: Negative for edema Skin no rashes or lesions noted General Skin Exam: no breakdown Psych affect normal Appearance: appropriate Weight / BMI Weight Weight: 91.923 kg Body Mass Index (BMI) 29.9 ABG / Lab / Microbiology Data 10/13/23 06:32 10/11/23 05:28 Microbiology: Microbiology 10/07/23 13:25 Stool Stool Occult Blood (DANNIELLE) - Final Occult Blood Positive D/C Instructions Discharge Diet: No restrictions Discharge Activity: Return to Normal Activity, May Shower and Use Walker Weight Bearing Status: Weight bearing as tolerated Call your doctor if you observe: Fever of 101 or Higher, Inability to urinate, Inability to have a bowel movement, Shortness of breath, Dizziness, Fainting spells, Swelling in the ankles, Chest pain and Uncontrolled pain Additional Instructions: Discharge home alone 10/21/2023, [facility] PT/OT/SN. Please Follow Up With: [facility] When: As scheduled. Meaningful Use Info Meaningful Use Meaningful Use Diagnoses (Choose all that apply): AMI AMI/Post PCI/Angioplasty Aspirin given w/in 24hrs of arrival?: Yes ASA at discharge?: Yes Statins at discharge?: Yes Madi/ARB at discharge?: No Reason Madi/ARB not ordered:: Not indicated Beta Mack at discharge?: Yes Done w/ Acute [place] measure.: Yes Documented LVEF (%): 15 Ischemic Stroke Statin Dosing Therapy Reference: STATIN DOSE THERAPY REFERENCE: * Patients > 75 years receive moderate or high dose statin therapy. * Patients 75 years or YOUNGER should receive HIGH intensity statin dose unless contraindicated. You will be required to document reason for non-treatment if statin daily dose does not meet guidelines. HIGH DOSE STATIN THERAPY DAILY Atorvastatin > than or = to 40 mg Rosuvastatin > than or = to 20 mg Amlodipine + Atorvastatin > than or = to 2.5/40 mg Ezetimibe + Simvastatin 10/80 mg Simvastatin 80mg Discharge Plan Admission Admit Date/Time: 10/05/23 18:45 Primary Reason for Your Visit: Debility. Attending Provider: David Palmer Chi Primary Care Provider: Sebastián Stewart Consulting Providers: Jose Mckinney Instructions Additional Instructions / Restrictions: Discharge home alone 10/21/2023, [facility] PT/OT/SN. Discharge Orders/Prescriptions Prescriptions: New furosemide 40 mg Tablet 40 mg PO DAILY 30 Days Qty: 30 0RF atorvastatin 40 mg Tablet 40 mg PO QHS Qty: 0 0RF amiodarone 200 mg Tablet 200 mg PO DAILY 30 Days Qty: 30 0RF polysaccharide iron complex [Ferrex 150] 150 mg iron Capsule 150 mg PO DAILY 30 Days Qty: 30 0RF clopidogrel 75 mg Tablet 75 mg PO DAILY Qty: 0 0RF acetaminophen 500 mg Tablet 1,000 mg PO Q6H PRN PRN (Reason: Pain Score 1-10) Qty: 0 0RF spironolactone 25 mg Tablet 12.5 mg PO DAILY 30 Days Qty: 15 0RF ascorbic acid (vitamin C) 500 mg Tablet 500 mg PO DAILY 30 Days Qty: 30 0RF tamsulosin 0.4 mg Capsule 0.4 mg PO DAILY@1730 30 Days Qty: 30 0RF pantoprazole 40 mg Tablet,Delayed Release (Dr/Ec) 40 mg PO DAILY 30 Days Qty: 30 0RF metoprolol succinate 25 mg Tablet Extended Release 24 Hr 25 mg PO QHS Qty: 0 0RF Eliquis 5 mg Tablet 5 mg PO BID 30 Days Qty: 60 0RF Jardiance 25 mg Tablet 25 mg PO DAILY 30 Days Qty: 30 0RF Discontinued atorvastatin 40 mg tablet 40 mg PO QHS Qty: 90 3RF hydrocodone-acetaminophen 5-325 mg tablet 1 tab PO Q6H PRN (Reason: hip pain) Patient Comments: TAKE 1 TABLET BY MOUTH EVERY 6 HOURS FOR 7 DAY(S) NEEDED FOR PAIN melatonin 10 mg capsule 10 mg PO QHS acetaminophen 500 mg capsule 1,000 mg PO Q6H PRN (Reason: pain) spironolactone [Aldactone] 25 mg tablet 12.5 mg PO DAILY polysaccharide iron complex [Ferrex 150] 150 mg iron capsule 150 mg PO DAILY Jardiance 25 mg tablet 25 mg PO DAILY furosemide [Lasix] 40 mg tablet 40 mg PO DAILY nystatin 100,000 unit/gram powder 1 applic topical BID pantoprazole [Protonix] 40 mg tablet,delayed release (DR/EC) 40 mg PO DAILY tamsulosin [Flomax] 0.4 mg capsule 0.4 mg PO DAILY doxepin 10 mg capsule 10 mg PO QHS amiodarone 400 mg tablet 400 mg PO DAILY Eliquis 5 mg tablet 5 mg PO BID Hold Instructions: per aug Patient Comments: Has been on hold since 10/07/23 doxycycline monohydrate 100 mg capsule 100 mg PO BID clopidogrel [Plavix] 75 mg tablet 75 mg PO DAILY Rx Instructions: start taking on September metoprolol succinate 25 mg tablet extended release 24 hr 50 mg PO DAILY Qty: 180 0RF Referrals / Follow Up: Sebastián Stewart MD [Primary Care Provider] - Disposition Disposition (needs filled in before D/C Order can be placed): Home Health Service
[2023-10-17 21:58] VITALS: BP 120/62; PULSE 70
[2023-10-17] MEDS: Metoprolol(XL)Succ 25 MG Tablet PO (21:58)
[2023-10-17] MEDS: Doxepin Hcl 25 MG Capsule PO (21:59)
[2023-10-17] MEDS: Atorvastatin Calcium 40 MG Tablet PO (21:59)
[2023-10-18 05:45] VITALS: BMI 29.8
--- NOTE | 2023-10-18 07:05 | NURSING ---
Addendum entered by Marion Shahid 10/18/23 07:42: education provided to patient regarding life pack and how to change battery during battery change, patient verbalized understanding and provided return feedback by following life pack prompts appropriately, reinforcement needed. Original Note: lifepack battery changed at this time per order. life vest on and functioning properly
[2023-10-18] MEDS: Empagliflozin 25 MG Tablet PO (08:15)
[2023-10-18] MEDS: Amiodarone 200 MG Tablet PO (08:15)
[2023-10-18] MEDS: Iron Polysaccharide Complex 150 MG CAPSULE PO (08:15)
[2023-10-18] MEDS: Zinc Sulfate 50 mg zinc (220 mg) ORAL capsule PO (08:16)
[2023-10-18] MEDS: Clopidogrel Bisulfate 75 MG Tablet PO (08:16)
[2023-10-18] MEDS: Furosemide 40 MG Tablet PO (08:16)
[2023-10-18] MEDS: Pantoprazole Sodium 40 MG Tablet PO (08:16)
[2023-10-18] MEDS: Ascorbic Acid 500 MG Tablet PO (08:16)
[2023-10-18] MEDS: Nystatin Powder 15gm Bottle 1 APPLIC TOPICAL ×2 (08:16→21:17)
[2023-10-18] MEDS: Spironolactone 25 MG Tablet 12.5 MG PO (08:17)
[2023-10-18] MEDS: Menthol/Lanolin/Calamine/Znox 113 GM Tube 1 APPLIC TOPICAL ×2 (08:17→21:16)
[2023-10-18] MEDS: APIXABAN 5 MG TABLET PO ×2 (08:17→21:16)
[2023-10-18 13:57] VITALS: BP 103/45; PULSE 64; RESP 14; TEMP 36.3; O2SAT 98
--- NOTE | 2023-10-18 13:58 | CASEMGMT ---
Social Work SW met with patient at bedside to discuss choice for home health care services. Patient informed SW that he discussed home health care provider choices with his daughter. Patient informed SW that he would like daughter to provide choice for home health care provider. SW discussed home health care services with patient. Patient is agreeable to PT/OT/SN services. SW will follow up with patient's daughter to obtain choice for home health care provider. SUZANNE Alfaro
--- NOTE | 2023-10-18 16:12 | CASEMGMT ---
Social Work KARLY contacted patient's daughter, Vanessa to discuss home health care choice. Vanessa inquired about recommended home health care services. [place] [facility], PT/[place] services. Vanessa inquired about cardiac rehab. KARLY informed Vanessa that Cardiac rehab is good once patient is able to transition from home health care. KARLY discussed PT/OT concerns for patient endurance and fatigue while ambulating; home health encouraged to evaluate and treat in home. Patient will transition to cardiac rehab post home health care. PT/OT recommend that the patient have another walker in the home to assist with ambulation on lower level and discourage use of steps until home health care initiates in a home. Patient's daughter, Vanessa informed KARLY that the patient has two walkers located in the home. Vanessa is agreeable to supervise patient to ensure no use of steps until home health care enters home to assess safety. Vanessa informed KARLY that the patient is getting bathroom on main level remodeled to deter access to basement. KARLY inquired about choice for home health care providers. Vanessa provided choice for home health [facility] and [facility]. Patient's daughter requested to discharge patient on 10/20/23 instead of Sunday due to having more support to assist patient transition home. KARLY awaiting accepting home health care agency. KARLY notified Physician, Dr. Palmer of discharge date change Discharge: Home with Home Health SN/PT/OT 10/20/2023 SUZANNE Arredondo
[2023-10-18] MEDS: Tamsulosin HCl 0.4 MG Capsule PO (16:24)
[2023-10-18] MEDS: Doxepin Hcl 25 MG Capsule PO (21:16)
[2023-10-18 21:17] VITALS: PULSE 66
[2023-10-18] MEDS: Atorvastatin Calcium 40 MG Tablet PO (21:17)
[2023-10-18] MEDS: Metoprolol(XL)Succ 25 MG Tablet PO (21:17)
[2023-10-18 22:15] VITALS: BP 102/58
[2023-10-18 23:42] VITALS: PULSE 66; RESP 18; O2SAT 96
[2023-10-19 05:22] VITALS: BMI 29.3
--- NOTE | 2023-10-19 06:53 | NURSING ---
life pack in place per order, battery changed at this time, functioning properly, No distress observed or reported. Life pack education continues.
--- NOTE | 2023-10-19 09:00 | MDS.RN ---
MDS pain interview complete.
[2023-10-19] MEDS: Spironolactone 25 MG Tablet 12.5 MG PO (09:33)
[2023-10-19] MEDS: Iron Polysaccharide Complex 150 MG CAPSULE PO (09:34)
[2023-10-19] MEDS: APIXABAN 5 MG TABLET PO ×2 (09:34→21:38)
[2023-10-19] MEDS: Ascorbic Acid 500 MG Tablet PO (09:34)
[2023-10-19] MEDS: Empagliflozin 25 MG Tablet PO (09:34)
[2023-10-19] MEDS: Clopidogrel Bisulfate 75 MG Tablet PO (09:34)
[2023-10-19] MEDS: Furosemide 40 MG Tablet PO (09:34)
[2023-10-19] MEDS: Amiodarone 200 MG Tablet PO (09:34)
[2023-10-19] MEDS: Pantoprazole Sodium 40 MG Tablet PO (09:34)
[2023-10-19] MEDS: Menthol/Lanolin/Calamine/Znox 113 GM Tube 1 APPLIC TOPICAL ×2 (09:35→21:37)
[2023-10-19] MEDS: Zinc Sulfate 50 mg zinc (220 mg) ORAL capsule PO (09:35)
[2023-10-19] MEDS: Nystatin Powder 15gm Bottle 1 APPLIC TOPICAL ×2 (09:35→21:38)
--- NOTE | 2023-10-19 11:05 | CASEMGMT ---
Social Work SW received notification from [facility] Jaclyn Haney that [facility] is able to accept patient for PT/OT/SN with start of care on 10/21/2023. Social Work notified patient at bedside. Discharge: [facility] PT/OT/SN 10/20/2023 SUZANNE Alfaro
--- NOTE | 2023-10-19 15:28 | NURSING ---
Therapy makes this nurse aware that patient was unable to place life vest fully on by himself and would need assistance at home. This nurse talked to patient regarding this and he states he knows he will need to have someone available when he showers and states this should not be a problem. Denies further questions at this time.
[2023-10-19 16:00] VITALS: BP 125/56; PULSE 54; RESP 20; TEMP 35.9; O2SAT 99
--- NOTE | 2023-10-19 16:28 | CASEMGMT ---
Social Work SW met with patient at bedside to review discharge disposition. Patient anticipates discharge home with daughter on 10/20/2023 and [facility] SN/PT/OT Patient received call from [facility] confirming SOC on 10/21/2023. Patient completed discharge MDS. BIM () and PhQ-2 (06/18); patient reports feeling down due to being in hospital not a place I want to be. Patient prefers being home. Patient has goals to return home and mow lawn. Discharge: Home with [facility] SN/PT/OT SUZANNE Alfaro
[2023-10-19] MEDS: Tamsulosin HCl 0.4 MG Capsule PO (17:49)
[2023-10-19] MEDS: Atorvastatin Calcium 40 MG Tablet PO (21:38)
[2023-10-19] MEDS: Doxepin Hcl 25 MG Capsule PO (21:38)
[2023-10-19 21:43] VITALS: BP 100/56; PULSE 54
[2023-10-19 22:00] VITALS: PULSE 76; RESP 16; O2SAT 97
[2023-10-20 07:50] VITALS: PULSE 62; RESP 16; O2SAT 95
[2023-10-20] MEDS: Ascorbic Acid 500 MG Tablet PO (09:03)
[2023-10-20] MEDS: Clopidogrel Bisulfate 75 MG Tablet PO (09:03)
[2023-10-20] MEDS: Iron Polysaccharide Complex 150 MG CAPSULE PO (09:03)
[2023-10-20] MEDS: Furosemide 40 MG Tablet PO (09:03)
[2023-10-20] MEDS: Empagliflozin 25 MG Tablet PO (09:03)
[2023-10-20] MEDS: Amiodarone 200 MG Tablet PO (09:03)
[2023-10-20] MEDS: Zinc Sulfate 50 mg zinc (220 mg) ORAL capsule PO (09:03)
[2023-10-20] MEDS: APIXABAN 5 MG TABLET PO (09:03)
[2023-10-20] MEDS: Pantoprazole Sodium 40 MG Tablet PO (09:03)
[2023-10-20] MEDS: Spironolactone 25 MG Tablet 12.5 MG PO (09:04)
[2023-10-20] MEDS: Nystatin Powder 15gm Bottle 1 APPLIC TOPICAL (09:04)
[2023-10-20] MEDS: Menthol/Lanolin/Calamine/Znox 113 GM Tube 1 APPLIC TOPICAL (09:10)
[2023-10-20 11:30] VITALS: BP 124/75; PULSE 60; RESP 16; TEMP 36.2; O2SAT 99
== END 2023-10-20 11:45 | disposition home health service (06) | DRG 280 ==
PROVIDERS: Admitting Provider Family Medicine Geriatric Medicine; PCP Family Medicine; Referring Provider Family Medicine Geriatric Medicine; Visit Provider Family Medicine Geriatric Medicine
DX: I21.4 Non-ST elevation (NSTEMI) myocardial infarction (principal); I50.23 Acute on chronic systolic (congestive) heart failure; K31.811 Angiodysplasia of stomach and duodenum with bleeding; J18.9 Pneumonia, unspecified organism; J91.8 Pleural effusion in other conditions classified elsewhere; I11.0 Hypertensive heart disease with heart failure; I48.91 Unspecified atrial fibrillation; I25.10 Atherosclerotic heart disease of native coronary artery without angina pectoris; E53.8 Deficiency of other specified B group vitamins; K21.9 Gastro-esophageal reflux disease without esophagitis; E78.5 Hyperlipidemia, unspecified; K31.7 Polyp of stomach and duodenum; K63.5 Polyp of colon; K57.30 Diverticulosis of large intestine without perforation or abscess without bleeding; G47.00 Insomnia, unspecified; Z96.642 Presence of left artificial hip joint; Z79.02 Long term (current) use of antithrombotics/antiplatelets; Z79.899 Other long term (current) drug therapy; N40.1 Benign prostatic hyperplasia with lower urinary tract symptoms; R33.8 Other retention of urine; K55.20 Angiodysplasia of colon without hemorrhage
CPT/HCPCS: 36415; 71046; 80048; 82274; 83540; 83550; 85014; 85018; 85025; 93005; 97110; 97116; 97162; 97166; 97530; 97535; 97802

== ENCOUNTER → 2023-10-12 | Day surgery (SDC) | payer MEDICARE, SELFPAY ==
--- NOTE | 2023-10-12 | COLBX_PTH ---
PATIENT: TELLO BLANKENSHIP LOC: EN U#:[id number] AGE/SX: 78/M ROOM: RE10/12/[address]: Dr. Jose Mckinney DO : 1945 BED: DIS: 10/12/2023 SPEC #: [id number] RECD: 10/12/23 18:35 STATUS: ANA ROD #: [id number] DOMINGO: 10/12/23 00:[address]: Jose Mckinney DEPT: SURGICAL PATHOLOGY RECD BY: Lukas Stewart ENTERED: 10/15/23 10:50 SP TYPE: COLON BX OTHR DR: Dr. Sebastián Stewart MD Tissues: A - Duodenum, NOS B - Duodenum, NOS C - Sigmoid colon biopsy D - COLON BIOPSY E - Cecum, NOS F - Sigmoid colon biopsy Procedures: Surgery Specimen Level IV HEADER OPERATION: Colonoscopy with biopsy, electrohemostasis and clip PRE-OP DIAGNOSIS: Anemia and fecal occult positive stools TISSUE SUBMITTED: A- Duodenum bulb polyp biopsy, B- Second portion of duodenum polyp biopsy, C- Sigmoid polyp biopsy, D- Hepatic flexure polyp cold snare, E- Cecum polyp x2 cold snare, F- Sigmoid polyp #2 cold snare MICROSCOPIC DIAGNOSIS A. Duodenum, biopsy: Gastric mucosa with associated mild chronic inflammation. B. Duodenal polyp, biopsy: Fragments of tubular adenoma. C. Sigmoid colon polyp, biopsy: Fragments of tubular adenoma. D. Colonic polyp at hepatic flexure, biopsy: Tubular adenoma. E. Cecum polyp, biopsy: Fragments of tubular adenoma. F. Sigmoid polyp, biopsy: Tubular adenoma. / 10/16/2023 MICROSCOPIC DESCRIPTION Slides are reviewed. GROSS DESCRIPTION A. Received in fixative is one container labeled with the patient's name and designated Duodenal bulb polyp biopsy. The specimen consists of one irregular fragment of light murray soft tissue that measures 0.2 x 0.2 x 0.2 cm. The specimen is totally submitted in one cassette. B. Received in fixative is one container labeled with the patient's name and designated Second portion of duodenum polyp biopsy. The specimen consists of one irregular fragment of light murray soft tissue that measures 0.2 x 0.2 x 0.2 cm. The specimen is totally submitted in one cassette. C. Received in fixative is one container labeled with the patient's name and designated Sigmoid polyp biopsy. The specimen consists of two irregular fragments of light murray soft tissue that in aggregate measure 0.5 x 0.2 x 0.5 cm. The specimen is totally submitted in one cassette. D. Received in fixative is one container labeled with the patient's name and designated Hepatic flexure polyp cold snare. The specimen consists of multiple irregular fragments of light murray soft tissue that in aggregate measure 3.0 x 1.0 x 0.25 cm. The specimen is totally submitted in one cassette. E. Received in fixative is one container labeled with the patient's name and designated Cecum polyp x2 cold snare. The specimen consists of multiple irregular fragments of light murray soft tissue that in aggregate measure 3.0 x 1.5 x 0.25 cm. The specimen is totally submitted in one cassette. F. Received in fixative is one container labeled with the patient's name and designated Sigmoid polyp #2 cold snare. The specimen consists of one irregular fragment of light murray soft tissue that measures 0.5 x 0.75 x 0.5 cm. The specimen is totally submitted in one cassette. Mr 10/15/23 TC:5 CPT:35721f8
[2023-10-12 15:05] VITALS: BP 110/59; PULSE 63; RESP 16; TEMP 36.5; O2SAT 98; BMI 29.5
[2023-10-12] MEDS: Lactated Ringers 1,000 ML 15 ML IV (15:13)
--- NOTE | 2023-10-12 17:19 | OP.EGD_ITS ---
Patient Name: Eben Cruz Procedure Date: 10/12/2023 4:23 PM Date of : 1945 Age: 78 Procedure: Upper GI endoscopy Indications: Iron deficiency anemia Providers: Jose Mckinney DO Medicines: Monitored Anesthesia Care Patient Profile: This is an 78 year old male. Refer to note in patient chart for documentation of history and physical. Patient has symptoms. Complications: No immediate complications. Procedure: Pre-Anesthesia Assessment: - Prior to the procedure, a History and Physical was performed, and patient medications and allergies were reviewed. The patient is competent. The risks and benefits of the procedure and the sedation options and risks were discussed with the patient. All questions were answered and informed consent was obtained. Patient identification and proposed procedure were verified by the physician in the pre-procedure area. Mental Status Examination: alert and oriented. Airway Examination: normal oropharyngeal airway and neck mobility. Respiratory Examination: clear to auscultation. CV Examination: normal. Prophylactic Antibiotics: The patient does not require prophylactic antibiotics. Prior Anticoagulants: The patient has taken no anticoagulant or antiplatelet agents. ASA Grade Assessment: II - A patient with mild systemic disease. After reviewing the risks and benefits, the patient was deemed in satisfactory condition to undergo the procedure. The anesthesia plan was to use monitored anesthesia care (MAC). Immediately prior to administration of medications, the patient was re-assessed for adequacy to receive sedatives. The heart rate, respiratory rate, oxygen saturations, blood pressure, adequacy of pulmonary ventilation, and response to care were monitored throughout the procedure. The physical status of the patient was re-assessed after the procedure. After obtaining informed consent, the endoscope was passed under direct vision. Throughout the procedure, the patient's blood pressure, pulse, and oxygen saturations were monitored continuously. The Colonoscope was introduced through the mouth, and advanced to the second part of duodenum. The upper GI endoscopy was accomplished without difficulty. The patient tolerated the procedure well. Scope In: 4:32:04 PM Scope Out: 4:35:35 PM Total Procedure Duration Time 0 hours 3 minutes 31 seconds Findings: The examined esophagus was normal. Two 5 mm angiodysplastic lesions with bleeding were found in the gastric fundus. Coagulation for hemostasis using heater probe was successful. Estimated blood loss was minimal. Two 5 mm sessile polyps with no bleeding were found in the duodenal bulb. The polyp was removed with a cold snare. Resection and retrieval were complete. Verification of patient identification for the specimen was done. Estimated blood loss was minimal. A single 5 mm sessile polyp was found in the second portion of the duodenum. Biopsies were taken with a cold forceps for histology. Verification of patient identification for the specimen was done. Estimated blood loss was minimal. Impression: - Normal esophagus. 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 Treated with a heater probe. - Two duodenal polyps. Resected and retrieved. Recommendation: - Return patient to referring hospital for ongoing care. - Resume previous diet. - Continue present medications. - Await pathology results. - Repeat upper endoscopy in 1 year for surveillance. Procedure Code(s): --- Professional --- 57133, 59, Esophagogastroduodenoscopy, flexible, transoral; with control of bleeding, any method 16003, Esophagogastroduodenoscopy, flexible, transoral; with removal of tumor(s), polyp(s), or other lesion(s) by snare technique 65252, 59,51, Esophagogastroduodenoscopy, flexible, transoral; with biopsy, single or multiple CPT copyright 2021 [employer]. All rights reserved. The codes documented in this report are preliminary and upon knockout man review may be revised to meet current compliance requirements. Jose Mckinney DO 10/12/2023 5:18:42 PM This report has been signed electronically. Number of Addenda: 0 Note Initiated On: 10/12/2023 4:23 PM
--- NOTE | 2023-10-12 17:19 | OP.CCLET_ITS ---
10/12/2023 Sebastián Stewart Re : Upper GI endoscopy procedure for Eben Stewart This procedure was performed on Thursday, October 12, 2023. My impressions and recommendations are as follows: Impressions : - Normal esophagus. 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 Treated with a heater probe. - Two duodenal polyps. Resected and retrieved. Recommendations : - Return patient to referring hospital for ongoing care. - Resume previous diet. - Continue present medications. - Await pathology results. - Repeat upper endoscopy in 1 year for surveillance. My findings are described in the full procedure note, which is enclosed. If I can be of further assistance, please feel free to contact me at . Sincerely, Jose Mckinney, 10/12/2023 5:18:42 PM This report has been signed electronically.
[2023-10-12 17:20] VITALS: BP 110/59; BP 74/57; PULSE 62; RESP 16; TEMP 36.1; O2SAT 98
--- NOTE | 2023-10-12 17:23 | OP.CCLET_ITS ---
10/12/2023 Sebastián Stewart Re : Colonoscopy procedure for Eben Jackson Terry This procedure was performed on Thursday, October 12, 2023. My impressions and recommendations are as follows: Impressions : - Preparation of the colon was fair. - Diverticulosis in the recto-sigmoid colon and in the sigmoid colon. - Six 1 to 2 mm polyps in the sigmoid colon, at the hepatic flexure and in the cecum, removed with a cold snare. Resected and retrieved. Clips were placed. 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 - Three non-bleeding colonic angiodysplastic lesions. Treated with a heater probe. - One 3 mm polyp in the sigmoid colon, removed with a jumbo cold forceps. Resected and retrieved. Treated with a heater probe. Recommendations : - Repeat colonoscopy in 1 year for surveillance. - Continue present medications. My findings are described in the full procedure note, which is enclosed. If I can be of further assistance, please feel free to contact me at . Sincerely, Jose Mckinney, 10/12/2023 5:23:09 PM This report has been signed electronically.
--- NOTE | 2023-10-12 17:23 | OP.COLON_ITS ---
Patient Name: Eben Cruz Procedure Date: 10/12/2023 4:36 PM Date of : 1945 Age: 78 Procedure: Colonoscopy Indications: Iron deficiency anemia Providers: Jose Mckinney DO Medicines: Monitored Anesthesia Care Patient Profile: This is an 78 year old male. Refer to note in patient chart for documentation of history and physical. Patient has symptoms. Last Colonoscopy: none. The patient's first colonoscopy is today. Complications: No immediate complications. Procedure: Pre-Anesthesia Assessment: - Prior to the procedure, a History and Physical was performed, and patient medications and allergies were reviewed. The patient is competent. The risks and benefits of the procedure and the sedation options and risks were discussed with the patient. All questions were answered and informed consent was obtained. Patient identification and proposed procedure were verified by the physician in the pre-procedure area. Mental Status Examination: alert and oriented. Airway Examination: normal oropharyngeal airway and neck mobility. Respiratory Examination: clear to auscultation. CV Examination: normal. Prophylactic Antibiotics: The patient does not require prophylactic antibiotics. Prior Anticoagulants: The patient has taken no anticoagulant or antiplatelet agents. ASA Grade Assessment: II - A patient with mild systemic disease. After reviewing the risks and benefits, the patient was deemed in satisfactory condition to undergo the procedure. The anesthesia plan was to use monitored anesthesia care (MAC). Immediately prior to administration of medications, the patient was re-assessed for adequacy to receive sedatives. The heart rate, respiratory rate, oxygen saturations, blood pressure, adequacy of pulmonary ventilation, and response to care were monitored throughout the procedure. The physical status of the patient was re-assessed after the procedure. After I obtained informed consent, the scope was passed under direct vision. Throughout the procedure, the patient's blood pressure, pulse, and oxygen saturations were monitored continuously. The Colonoscope was introduced through the anus and advanced to the terminal ileum. The colonoscopy was performed without difficulty. The patient tolerated the procedure well. The quality of the bowel preparation was fair. Scope In: 4:36:23 PM Scope Withdrawal Time 0 hours 21 minutes 49 seconds Scope Out: 5:11:10 PM Total Procedure Duration Time 0 hours 34 minutes 47 seconds Findings: The perianal and digital rectal examinations were normal. Many small-mouthed diverticula were found in the recto-sigmoid colon and sigmoid colon. Six sessile polyps were found in the sigmoid colon, hepatic flexure and cecum. The polyps were 1 to 2 mm in size. These polyps were removed with a cold snare. Resection and retrieval were complete. Verification of patient identification for the specimen was done. To prevent bleeding post-intervention, four hemostatic clips were successfully placed. 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 There was no bleeding at the end of the procedure. Three small angiodysplastic lesions without bleeding were found in the transverse colon and in the cecum. Coagulation for hemostasis using heater probe was successful. Estimated blood loss was minimal. A 3 mm polyp was found in the sigmoid colon. The polyp was sessile. The polyp was removed with a jumbo cold forceps. Resection and retrieval were complete. Coagulation for destruction of remaining portion of lesion using heater probe was successful. Estimated blood loss was minimal. Impression: - Preparation of the colon was fair. - Diverticulosis in the recto-sigmoid colon and in the sigmoid colon. - Six 1 to 2 mm polyps in the sigmoid colon, at the hepatic flexure and in the cecum, removed with a cold snare. Resected and retrieved. Clips were placed. 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 - Three non-bleeding colonic angiodysplastic lesions. Treated with a heater probe. - One 3 mm polyp in the sigmoid colon, removed with a jumbo cold forceps. Resected and retrieved. Treated with a heater probe. Recommendation: - Repeat colonoscopy in 1 year for surveillance. - Continue present medications. Procedure Code(s): --- Professional --- 29333, Colonoscopy, flexible; with ablation of tumor(s), polyp(s), or other lesion(s) (includes pre- and post-dilation and guide wire passage, when performed) 85527, 59,51, Colonoscopy, flexible; with control of bleeding, any method 27209, 59, Colonoscopy, flexible; with removal of tumor(s), polyp(s), or other lesion(s) by snare technique CPT copyright 2021 [employer]. All rights reserved. The codes documented in this report are preliminary and upon heel cementer review may be revised to meet current compliance requirements. Jose Mckinney DO 10/12/2023 5:23:09 PM This report has been signed electronically. Number of Addenda: 0 Note Initiated On: 10/12/2023 4:36 PM
[2023-10-12 17:25] VITALS: BP 101/55; BP 110/59; PULSE 61; RESP 16; O2SAT 98
[2023-10-12 17:30] VITALS: BP 105/57; BP 110/59; PULSE 62; RESP 16
[2023-10-12 17:33] VITALS: BP 105/60; BP 110/59; PULSE 61; RESP 16; TEMP 36.5; O2SAT 97
--- NOTE | 2023-10-19 19:20 | PCM.HP.BLA ---
History and Physical Date of Admission: 11/11/23 Anemia and fecal occult positive stools HPI Narrative: TELLO BLANKENSHIP, is a 78 M who presented as a direct transfer from [facility] for an NSTEMI on 09/23/2023. He originally presented to [facility] on 09/18/2023 for a planned elective total hip replacement with Dr. Robledo. The procedure was noted to be fairly complicated and required wound VAC placement. 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 Skilled rehab was recommended for discharge and the patient was in the process of transitioning to the [facility] TCU on 09/22/2023 however on the morning of 09/23/2023 he became acutely short of breath and his vital signs were were stable and he was not hypoxic however stat labs were ordered and he was found to have a markedly elevated D-dimer at 2557 and a troponin of 6365. EKG at that time showed sinus tachycardia with ST segment depressions and no previous for comparison. CTA of the chest was negative for PE and showed only small bilateral pleural effusions. Given his troponin elevation and the concern for an NSTEMI he was transferred here for further management. Upon arrival cardiology was consulted and plan was for catheterization which was done today on 09/24/2023 and noted subtotal heavy calcified proximal left circumflex that was unable to be crossed with a wire, 50% distal LMCA, 50% calcified ostial LAD, 70% calcified ostial D1, and 80% heavily calcified ostial and proximal RCA. Unsuccessful PCI of the subtotal heavily calcified proximal left circumflex was attempted and medical therapy was recommended however I did discuss the case with Dr. Jackman and he felt that transfer to tertiary center may be required and would like to discuss it with tertiary auricular acupuncturist. Shortly after he returned from his cardiac catheterization at which time he was noted to be hypoxic with oxygen saturations at 79% on room air. He was placed on a nonrebreather with improvement in his oxygen saturations and cardiology was called to the bedside. A stat echocardiogram was obtained and found to show an EF of 25% with normal LV size, lateral wall in particular appeared to be severely hypokinetic with mild to moderate mitral valve insufficiency. He was maintained on BiPAP and given some IV fluids. ABG/chest x-ray/BNP were obtained and found to be stable without any acute etiology. Clinically he improved and had been weaned to room air. Lower extremity Dopplers were done and showed no DVT. The intent was to perform a CTA of his chest here given his decompensation after cardiac catheterization however we wanted to make sure that his renal function was stable after his cardiac catheterization with a dye load and get it on 09/25/2023. He was transferred for complex PCI at [facility]. Dr. Magaña performed NORIS x 3 to LM, LAD, RCA. Decompensated heart failure, atrial fibrillation/atrial flutter status post DCCV. On 09/30/2023 Echo EF 15%, 2+ MR, Mild . On 10/03/2023 Worsening SOB. A thoracentesis planned for large left pleural effusion. He was treated medically He was started on these medications torsemide 10mg daily, Spironolactone, continue Metoprolol succinate 75mg daily. Eliquis 5mg bid, Metoprolol succinate 75mg daily, Amiodarone 400mg bid for atrial fibrillation. 10/05/2023 Life Vest and was admitted to TCU with debility, here for rehabilitation, strengthening, prior to discharge home alone. I was consulted to see him because his hemoglobin has been dropping and he is fecal occult positive along with him never having a colonoscopy in the past. [facility] Medical History (Updated 10/05/23 @ 20:[address] David Palmer MD) Arthritis CAD (coronary artery disease) Dyslipidemia History of CVA (cerebrovascular accident) Hypertension Leaky heart valve Home Medications hydrocodone-acetaminophen 5-325mg 5mg-325mg 1 tab PO Q6H PRN hip pain 04/27/23 [History Last Taken 04/27/23 06:30] atorvastatin 40 mg tablet 40 mg PO QHS cholesterol #90 tabs 05/14/23 [Rx Last Taken 10/05/23] metoprolol succinate 25 mg tablet,extended release 24 hr 50 mg (2 x 25 mg) PO DAILY heart blockage #180 tabs 06/01/23 [Rx Last Taken Unknown] melatonin 10 mg capsule 10 mg PO QHS sleep 09/23/23 [History Last Taken 10/01/23] clopidogrel 75 mg tablet (Plavix) 75 mg PO DAILY antiplatelet 10/05/23 [History Last Taken 10/05/23] Allergy/AdvReac Type Severity Reaction Status Date / Time sacubitril [From Entresto] Allergy Mild cough Verified 06/19/23 10:31 valsartan [From Entresto] Allergy Mild cough Verified 06/19/23 10:31 Surgical History (Updated 10/05/23 @ 20:[address] David Palmer MD) History of total left hip arthroplasty History of total right knee replacement Social History (Updated 10/05/23 @ 20:[address] David Palmer MD) household members: none Smoking Status: Never smoker alcohol intake: never substance use type: does not use ROS Constitutional Constitutional: Reports fatigue and weakness; Denies chills, fever(s) or weight gain ENT HEENT: Denies headache(s), nasal congestion or nasal discharge Cardiovascular Cardiovascular: Denies chest pain or palpitations Respiratory/Chest Respiratory/Chest: Reports shortness of breath with exertion; Denies cough or excessive phlegm production Gastrointestinal Gastrointestinal: Denies abdominal pain, nausea or vomiting Genitourinary Genitourinary: Denies dysuria Musculoskeletal Musculoskeletal: Denies joint pain or joint swelling Integumentary Integumentary: Denies rash or wounds Neurologic Neurologic: Denies focal weakness, numbness or tingling Psychiatric Psychiatric: Denies anxiety, auditory hallucinations, depression, homicidal ideation or suicidal ideation Physical Exam Const alert General Appearance: cooperative HEENT normocephalic Eyes PERRL and EOMs intact bilaterally Neck supple, no JVD and no carotid bruits Chest Chest Narrative: Life Vest. Resp normal respiratory effort, normal air movement and clear to auscultation bilaterally Cardio regular rate and regular rhythm GI normal to inspection, nondistended, normoactive bowel sounds, non-tender and non-distended Extremity normal capillary refill General Extremity: Negative for edema Skin no rashes or lesions noted General Skin Exam: no breakdown Psych affect normal Appearance: appropriate Lab / Micro Data 10/11/23 05:28 10/11/23 05:28 Labs: Laboratory Results - last 24 hr 10/11/23 05:28: Hgb 9.7 L, Hct 31.9 L, Sodium 138, Potassium 4.5, Chloride 107, Carbon Dioxide 28.0, Anion Gap 3 L, BUN 27 H, Creatinine 1.47 H, Estim Creat Clear Calc 45.27, Est GFR (MDRD) Af Amer 59 L, Est GFR (MDRD) Non-Af 49 L, BUN/Creatinine Ratio 18.4, Glucose 95, Calcium 8.5 Assessment & Plan Assessment/Plan (1) Debility: (2) NSTEMI (non-ST elevated myocardial infarction): (3) CAD (coronary artery disease): (4) Acute HFrEF (heart failure with reduced ejection fraction): (5) Atrial fibrillation: (6) Pleural effusion, left: (7) Hypertension: (8) Hyperlipidemia: (9) Insomnia: (10) Stroke: (11) Stenosis of right carotid artery: PLAN: Plan 78 year old male with multiple medical problems including recently hospitalized for NSTEMI, underwent stents x 3, complicated by acute HFrEF (EF 15%), afib/aflutter s/p DCCV, left pleural effusion requiring thoracentesis, admitted to TCU with debility, here for rehabilitation, strengthening, prior to discharge home alone. His hemoglobin is 9.7 and has been ranging around 9-9.9. Prior to his [place] his hemoglobin was 14. He is on Eliquis will along with having coronary artery disease and being on Plavix he is high risk for GI bleed. He has never had a colonoscopy so that increase her risk of malignancy. He should undergo an upper and lower endoscopy to evaluate his upper and lower GI tract. He was explained alternatives, risk, benefits including not withstanding bleeding, infection, sepsis, perforation, need for emergent surgery and . He will have an ASA of 3.
== END | disposition home or self-care (01) ==
LOC: EN 02-12 08:58
PROVIDERS: PCP Family Medicine; Referring Provider Family Medicine; Visit Provider Internal Medicine Gastroenterology
PROC: 0DJD8ZZ Inspection of Lower Intestinal Tract, Via Natural or Artificial Opening Endoscopic (ICD-10-PCS; CPT 45378; principal; 2023-10-12 16:25)
DX: D12.0 Benign neoplasm of cecum (principal); I11.0 Hypertensive heart disease with heart failure; I50.21 Acute systolic (congestive) heart failure; I48.91 Unspecified atrial fibrillation; K57.30 Diverticulosis of large intestine without perforation or abscess without bleeding; J90 Pleural effusion, not elsewhere classified; E78.5 Hyperlipidemia, unspecified; G47.00 Insomnia, unspecified; R53.81 Other malaise; I25.2 Old myocardial infarction; I25.10 Atherosclerotic heart disease of native coronary artery without angina pectoris; Z79.02 Long term (current) use of antithrombotics/antiplatelets; Z95.5 Presence of coronary angioplasty implant and graft; Z79.01 Long term (current) use of anticoagulants; D50.9 Iron deficiency anemia, unspecified; R19.5 Other fecal abnormalities; K55.20 Angiodysplasia of colon without hemorrhage; K31.811 Angiodysplasia of stomach and duodenum with bleeding; K29.80 Duodenitis without bleeding; D13.2 Benign neoplasm of duodenum; D12.5 Benign neoplasm of sigmoid colon; D12.3 Benign neoplasm of transverse colon
CPT/HCPCS: 43255; 45385; 45380; 45382; 43251; 43239; 88305; J7120

== ENCOUNTER → 2023-12-18 | Outpatient (CLI) | payer MEDICARE, SELFPAY ==
--- NOTE | 2023-12-18 06:44 | ECHOCS_ITS ---
Reason For Study: CHF Procedure This was a 2D Doppler, Color Flow transthoracic echocardiogram. The study was technically difficult. Due to body habitus. Contrast injection was performed. Exam performed in department. Left Ventricle Normal LV size. The left ventricular ejection fraction is 40 %. There is mild to moderate global hypokinesis of the left ventricle. Right Ventricle Normal RV size. Normal systolic function. Atria The left atrium is mildly enlarged. Normal right atrium. Mitral Valve There is mild mitral annular calcification. Mild (1+) mitral valve insufficiency. Tricuspid Valve Normal tricuspid valve. Mild to moderate (1-2+) tricuspid valve insufficiency. Pulmonary artery systolic pressure is 40 mmHg. Aortic Valve Trisinus/trileaflet aortic valve. Mild focal aortic valve calcification. Pulmonic Valve Normal pulmonic valve. Great Vessels Normal aortic root. Pericardium/Pleural No pericardial effusion. Medication Diluted definity 3.0ml given slow IV push to enhance endocardial definition. MMode/2D Measurements & Calculations LVIDd: 6.0 cm IVSd: 0.81 cm Ao root diam: 3.9 cm LVIDs: 4.6 cm LVPWd: 0.67 cm RVDd: 3.4 cm FS: 24.0 % LAV(MOD-bp): 87.4 ml LVAd ap4: 33.1 cm2 LVAd ap2: 22.5 cm2 LAV(MOD-bp) Indexed: 42.6 ml/m2 LVLd ap4: 7.9 cm LVLd ap2: 7.3 cm LAV(MOD-sp2): 85.8 ml EDV(MOD-sp4): 115.0 ml EDV(MOD-sp2): 58.2 ml LAV(MOD-sp4): 85.6 ml EDV(sp4-el): 118.4 ml EDV(sp2-el): 58.9 ml LVAs ap4: 21.2 cm2 LVAs ap2: 15.4 cm2 LVLs ap4: 6.7 cm LVLs ap2: 6.6 cm ESV(MOD-sp4): 58.8 ml ESV(MOD-sp2): 29.5 ml ESV(sp4-el): 56.8 ml ESV(sp2-el): 30.4 ml EF(MOD-sp4): 48.9 % EF(MOD-sp2): 49.2 % EF(sp4-el): 52.0 % SV(MOD-sp4): 56.2 ml SV(MOD-sp2): 28.6 ml SV(sp4-el): 61.6 ml LA A4 area: 24.8 cm2 LA dimension(2D): 4.3 cm RA A4 area: 16.5 cm2 TAPSE: 2.3 cm Time Measurements MV dec time: 0.12 sec Doppler Measurements & Calculations MV E max alaina: 70.7 cm/sec Ao V2 max: 203.1 cm/sec LV V1 max: 84.1 cm/sec MV A max alaina: 67.3 cm/sec Ao max P.5 mmHg LV V1 max P.8 mmHg MV E/A: 1.0 Ao V2 mean: 156.2 cm/sec LV V1 mean P.7 mmHg Ao mean P.5 mmHg LV V1 mean: 61.6 cm/sec Ao V2 VTI: 38.9 cm LV V1 VTI: 17.3 cm AV (velocity ratio): 0.44 PA V2 max: 149.1 cm/sec TR max alaina: 299.9 cm/sec PA V2 mean: 104.5 cm/sec TR max P.0 mmHg ECHO/Echo Complete W/ Contrast Interpretation Summary Normal LV size. The left ventricular ejection fraction is 40 %. There is mild to moderate global hypokinesis of the left ventricle. Pulmonary artery systolic pressure is 40 mmHg. Contrast injection was performed. Compared to previous study, the left ventricu lar systolic function has improved.. Ordering Physician: Vidal Banda Referring Physician: Sebastián Stewart Performed By: Arleth Fisher RDCS, RVT
== END | disposition home or self-care (01) ==
LOC: CVS 06:43
PROVIDERS: PCP Family Medicine; Referring Provider Nurse Practitioner Family; Visit Provider Nurse Practitioner Family
DX: I50.21 Acute systolic (congestive) heart failure (principal); R94.30 Abnormal result of cardiovascular function study, unspecified
CPT/HCPCS: 93306; Q9957; A4216; C8929

== ENCOUNTER → 2024-05-06 | Outpatient (CLI) | payer MEDICARE, SELFPAY ==
[2024-05-06 09:00] LABS: Absolute Lymphocyte Count 1.08 X10^3/uL (0.83-4.51); Absolute Neutrophil Count 4.9 X10^3/uL (2.0-7.7); Basophil# 0.04 X10^3/uL; Basophil% 0.6 % (0-1); Eosinophil# 0.09 X10^3/uL; Eosinophils% 1.4 % (0-5); Hematocrit 45.6 % (40-54); Hemoglobin 14.6 g/dL (13.0-16.5); Lymphocyte # 1.08 X10^3/ul (0.83-4.51); Lymphocyte % 16.3 % (19-41); Mean Corpuscular Hgb 30.1 pg (27.0-32.0); Mean Platelet Vol. 11.2 fl (6.2-12.0); Monocyte# 0.54 X10^3/uL; Monocyte% 8.1 % (0-10); NRBC Flagged by Analyzer 0 % (0-5); Neutrophil # 4.87 X10^3/uL (2.7-7.7); Neutrophil % 73.3 % (47-70); Platelet Count 180 K/mm3 (150-450); RBC Distribution Width CV 13.5 % (11.6-14.6); RBC Distribution Width SD 46.8 fl (35.1-43.9); Red Blood Count 4.85 M/mm3 (4.6-6.2); White Blood Count 6.6 K/mm3 (4.4-11.0)
[2024-05-06 09:23] LABS: Anion Gap 8 (5-15); BUN 31 mg/dL (7-18); BUN/Creat Ratio 17.4 RATIO (10-20); Calcium,Total 8.8 mg/dL (8.5-10.1); Chloride 106 mmol/L (98-107); Creatinine, Serum 1.78 mg/dL (0.70-1.30); EST Glomerular Filtration Rate 39 mL/min (>60); Est Glom Filt Rate - Afr Amer 47 mL/min (>60); Glucose 143 mg/dL (74-106); Potassium 4.1 mmol/L (3.5-5.1); Sodium Level 137 mmol/L (136-145)
[2024-05-06 09:24] LABS: BNP,B-Type NATRIURETIC PEPTIDE 843.5 pg/mL (0-100)
== END | disposition home or self-care (01) ==
LOC: LAB 08:19
PROVIDERS: PCP Family Medicine; Referring Provider Nurse Practitioner Gerontology; Visit Provider Nurse Practitioner Gerontology
DX: R06.02 Shortness of breath (principal); I50.21 Acute systolic (congestive) heart failure; R60.0 Localized edema; Z86.2 Personal history of diseases of the blood and blood-forming organs and certain disorders involving the immune mechanism; N28.9 Disorder of kidney and ureter, unspecified
CPT/HCPCS: 36415; 80048; 83880; 85025

== ENCOUNTER 2024-06-23 13:05 | Observation (INO) | payer MEDICARE, SELFPAY ==
[2024-06-23] VITALS (12 sets, daily range): BP systolic 98–124; BP diastolic 59–70; PULSE 46–107; RESP 15–20; TEMP 36.3–36.7; O2SAT 94–100; BMI 30.4; BMI 29.2
--- NOTE | 2024-06-23 13:34 | EKG12_ITS ---
Test Reason : DIZZY Blood Pressure : */* mmHG Vent. Rate : 104 BPM Atrial Rate : 104 BPM P-R Int : 206 ms QRS Dur : 92 ms QT Int : 346 ms P-R-T Axes : 77 -18 97 degrees QTcB Int : 454 ms Sinus tachycardia with frequent Premature ventricular complexes NS ST & T wave abnormality, consider lateral ischemia Abnormal ECG baseline artifact Confirmed by Gregory Kruse ([id number]), desk editor SHANIQUA COHEN ([id number]) on 06/25/2024 8:24:11 AM Referred By: Mark Go Confirmed By: Gregory Kruse
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
[2024-06-23] MEDS: Ipratropium/Albuterol Sulfate 3 ML AMPUL.NEB INHALATION (13:40)
[2024-06-23 13:49] LABS: Absolute Lymphocyte Count 0.92 X10^3/uL (0.83-4.51); Absolute Neutrophil Count 7.9 X10^3/uL (2.0-7.7); Basophil# 0.05 X10^3/uL; Basophil% 0.5 % (0-1); Eosinophil# 0.04 X10^3/uL; Eosinophils% 0.4 % (0-5); Hemoglobin 16.4 g/dL (13.0-16.5); Lymphocyte # 0.92 X10^3/ul (0.83-4.51); Lymphocyte % 9.6 % (19-41); Mean Corp Hgb Conc 32.8 g/dL (32-36); Mean Corpuscular Hgb 31.1 pg (27.0-32.0); Mean Corpuscular Volume 94.7 fL (80-94); Mean Platelet Vol. 10.9 fl (6.2-12.0); Monocyte% 6.3 % (0-10); NRBC Flagged by Analyzer 0 % (0-5); Neutrophil # 7.92 X10^3/uL (2.7-7.7); Neutrophil % 82.6 % (47-70); Platelet Count 193 K/mm3 (150-450); RBC Distribution Width CV 13.7 % (11.6-14.6); RBC Distribution Width SD 47.8 fl (35.1-43.9); Red Blood Count 5.28 M/mm3 (4.6-6.2); White Blood Count 9.6 K/mm3 (4.4-11.0)
[2024-06-23 13:58] LABS: International Normalized Ratio 1.3; Prothrombin Time (Protime)PT. 16.5 SECONDS (11.7-14.9)
[2024-06-23 13:59] LABS: Partial Thromboplast Time 30.7 Seconds (24.1-36.2)
[2024-06-23 14:15] LABS: Carboxyhemoglobin Frac (CO) 27.1 % (0.0-1.5)
[2024-06-23 14:22] LABS: BNP,B-Type NATRIURETIC PEPTIDE 407.2 pg/mL (0-100)
[2024-06-23 14:28] LABS: Anion Gap 8 (5-15); BUN 23 mg/dL (7-18); BUN/Creat Ratio 14.6 RATIO (10-20); Calcium,Total 9.1 mg/dL (8.5-10.1); Chloride 104 mmol/L (98-107); Creatinine, Serum 1.57 mg/dL (0.70-1.30); EST Glomerular Filtration Rate 45 mL/min (>60); Est Glom Filt Rate - Afr Amer 55 mL/min (>60); Glucose 124 mg/dL (74-106); Potassium 3.9 mmol/L (3.5-5.1); Sodium Level 137 mmol/L (136-145); Troponin-I HS 123 pg/mL (3.0-78.0)
[2024-06-23 14:49] LABS: Carboxyhemoglobin Order ORDER TUBE
[2024-06-23] MEDS: Aspirin 81 MG TAB.CHEW 324 MG PO (14:56)
--- NOTE | 2024-06-23 15:55 | RAD_ITS ---
INDICATION: Dyspnea EXAMINATION/TECHNIQUE: X-RAY - XR Chest 2 Views COMPARISON: 10/10/2023. FINDINGS: The lungs are clear. Tortuous and calcified thoracic aorta. The heart is mildly enlarged. Trace left pleural effusion versus atelectasis. No pneumothorax. Degenerative changes of the thoracic spine. RAD/Chest PA and Lateral IMPRESSION: Trace left pleural effusion versus atelectasis. Otherwise, no acute radiographic abnormalities. Electronically Signed: Black Spence MD at 16:08 EST ,
--- NOTE | 2024-06-23 16:10 | ED.RN ---
PT WITH TROPONIN OF 320. DR ROCHE
[2024-06-23 16:11] LABS: Troponin-I HS 320 pg/mL (3.0-78.0)
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
[2024-06-23 17:49] LABS: Magnesium 2.5 mg/dL (1.6-2.6)
[2024-06-23 20:04] LABS: Carboxyhemoglobin Frac (CO) 9.5 % (0.0-1.5)
[2024-06-23 20:12] LABS: Carboxyhemoglobin Order 9.5
[2024-06-23 20:34] LABS: Troponin-I HS 1333 pg/mL (3.0-78.0)
--- NOTE | 2024-06-23 20:43 | ECHOCS_ITS ---
Reason For Study: CHF Procedure This was a 2D Doppler, Color Flow transthoracic echocardiogram. The study was technically difficult. Exam performed portable in patient room. Left Ventricle Normal left ventricle. The left ventricular ejection fraction is 20 %. There is severe global hypokinesis of the left ventricle. Right Ventricle Normal RV size. Normal systolic function. Atria Normal left atrium. Normal right atrium. Mitral Valve There is mild to moderate mitral annular calcification. Mild-Moderate (1-2+) eccentric mitral valve insufficiency. Tricuspid Valve Normal tricuspid valve. Moderate (2+) tricuspid valve insufficiency. Pulmonary artery systolic pressure is 54 mmHg. Aortic Valve Trisinus/trileaflet aortic valve. Moderate focal aortic valve calcification. Pulmonic Valve The pulmonic valve is not well visualized. Great Vessels Calcified aortic root. The pulmonary artery is normal size. Normal inferior vena cava. Pericardium/Pleural No pericardial effusion. Medication Diluted definity 3ml given slow IV push to enhance endocardial definition. MMode/2D Measurements & Calculations LVIDd: 5.4 cm IVSd: 1.1 cm LVOT diam: 2.1 cm LVIDs: 4.8 cm LVPWd: 0.91 cm RVDd: 4.6 cm FS: 11.9 % LVOT area: 3.5 cm2 asc Aorta Diam: 3.6 cm LAV(MOD-bp): 81.4 ml LVAd ap4: 43.3 cm2 LAV(MOD-bp) Indexed: 40.5 ml/m2 LVLd ap4: 8.7 cm LAV(MOD-sp2): 88.6 ml EDV(MOD-sp4): 172.9 ml LAV(MOD-sp4): 74.9 ml EDV(sp4-el): 183.9 ml LVAs ap4: 38.1 cm2 LVLs ap4: 8.3 cm ESV(MOD-sp4): 142.1 ml ESV(sp4-el): 149.3 ml EF(MOD-sp4): 17.9 % EF(sp4-el): 18.9 % LVAd ap2: 37.7 cm2 SV(MOD-sp4): 30.9 ml SV(MOD-sp2): 24.9 ml LVLd ap2: 8.0 cm SI(MOD-sp4): 15.4 ml/m2 SI(MOD-sp2): 12.4 ml/m2 EDV(MOD-sp2): 144.6 ml EDV(sp2-el): 150.6 ml LVAs ap2: 34.6 cm2 LVLs ap2: 8.1 cm ESV(MOD-sp2): 119.7 ml ESV(sp2-el): 125.2 ml EF(MOD-sp2): 17.2 % SV(sp4-el): 34.7 ml LA dimension(2D): 4.3 cm LA A4 area: 23.3 cm2 RA A4 area: 16.9 cm2 TAPSE: 1.7 cm Time Measurements MV dec time: 0.16 sec Doppler Measurements & Calculations MV E max alaina: 73.7 cm/sec Ao V2 max: 198.3 cm/sec LV V1 max: 92.8 cm/sec Ao max P.7 mmHg LV V1 max P.5 mmHg Ao V2 mean: 158.3 cm/sec LV V1 mean P.1 mmHg Ao mean P.6 mmHg LV V1 mean: 69.7 cm/sec Ao V2 VTI: 37.2 cm LV V1 VTI: 16.1 cm AV (velocity ratio): 0.43 YAMIL(I,D): 1.5 cm2 YAMIL(V,D): 1.6 cm2 SV(LVOT): 55.7 ml PA V2 max: 93.8 cm/sec TR max alaina: 352.5 cm/sec TR max P.7 mmHg ECHO/Echo Complete W/ Contrast Interpretation Summary Normal left ventricle. The left ventricular ejection fraction is 20 %. Moderate focal aortic valve calcification. Pulmonary artery systolic pressure is 54 mmHg. Compared to previous study, the left ventricular systolic function has worsened .. Ordering Physician: Bret Green Referring Physician: Mark Go Performed By: Barbara Gutierrez RDCS
[2024-06-23] MEDS: APIXABAN 5 MG TABLET PO (22:14)
[2024-06-23] MEDS: Atorvastatin Calcium 40 MG Tablet PO (22:14)
[2024-06-23] MEDS: Tamsulosin HCl 0.4 MG Capsule PO (22:14)
[2024-06-23] MEDS: Metoprolol(XL)Succ 25 MG Tablet PO (22:14)
[2024-06-23] MEDS: 0.9% Saline Lock 10 ML Syringe IV (22:15)
[2024-06-23 23:31] LABS: Troponin-I HS 2084 pg/mL (3.0-78.0)
[2024-06-24 03:00] VITALS: BP 98/58; PULSE 44; RESP 16; TEMP 36.6; O2SAT 99
[2024-06-24 04:25] VITALS: BMI 29.2
[2024-06-24 06:10] LABS: Absolute Lymphocyte Count 1.73 X10^3/uL (0.83-4.51); Basophil# 0.05 X10^3/uL; Basophil% 0.6 % (0-1); Eosinophil# 0.09 X10^3/uL; Hematocrit 45.8 % (40-54); Hemoglobin 14.9 g/dL (13.0-16.5); Lymphocyte # 1.73 X10^3/ul (0.83-4.51); Mean Corp Hgb Conc 32.5 g/dL (32-36); Mean Corpuscular Hgb 30.4 pg (27.0-32.0); Mean Corpuscular Volume 93.5 fL (80-94); Monocyte# 0.73 X10^3/uL; Monocyte% 8.4 % (0-10); NRBC Flagged by Analyzer 0 % (0-5); Neutrophil # 6.02 X10^3/uL (2.7-7.7); Neutrophil % 69.7 % (47-70); Platelet Count 187 K/mm3 (150-450); RBC Distribution Width CV 13.6 % (11.6-14.6); RBC Distribution Width SD 46.8 fl (35.1-43.9); White Blood Count 8.7 K/mm3 (4.4-11.0)
[2024-06-24 06:28] LABS: AST(SGOT) 20 U/L (15-37); Alanine Aminotransfer ALT/SGPT 14 U/L (16-61); Albumin, Serum 2.9 g/dL (3.2-5.0); Alkaline Phosphatase 103 U/L (45-117); Anion Gap 3 (5-15); BUN 21 mg/dL (7-18); BUN/Creat Ratio 15.7 RATIO (10-20); Calcium,Total 8.9 mg/dL (8.5-10.1); Chloride 105 mmol/L (98-107); Creatinine, Serum 1.34 mg/dL (0.70-1.30); EST Glomerular Filtration Rate 54 mL/min (>60); Est Glom Filt Rate - Afr Amer 66 mL/min (>60); Estimated Creatinine Clearance 46.43 ml/min; Glucose 141 mg/dL (74-106); Potassium 4.1 mmol/L (3.5-5.1); Protein, Total 5.9 g/dL (6.4-8.2); Sodium Level 138 mmol/L (136-145)
--- NOTE | 2024-06-24 09:00 | PN.HOSP_ITS ---
Reason for Visit Reason for Visit: Diagnoses Other specified abnormal findings of blood chemistry (06/23/24) Toxic effect of carbon monoxide from unspecified source, accidental (unintentional), initial encounter (06/23/24) Subjective Subjective Patient is an 79-year-old lady with history of coronary artery disease with previous non-STEMI with PCI who presented with lightheadedness. Patient was found to have elevated troponin consistent with acute non-STEMI admitted to to a monitored bed for subsequent management Objective Data Objective Data Vital Signs: Vital Signs Temp Pulse Resp BP Pulse Ox O2 Del Method O2 Flow Rate 97.8 F 44 L 16 98/58 L 99 Nasal Cannula 4 06/24/24 03:00 06/24/24 03:00 06/24/24 03:00 06/24/24 03:00 06/24/24 03:00 06/24/24 08:26 06/24/24 08:26 Oxygen Flow Rate (L/min) 4 Oxygen Delivery Method Nasal Cannula Weight: 87.2 kg Body Mass Index (BMI) 29.2 Intake & Output: Intake and Output for Last 24 Hours 06/22/24 06/23/24 06/24/24 23:59 23:59 23:59 Intake Total 420 / 420 Balance 420 / 420 Lab / Micro Data 06/24/24 05:29 06/24/24 05:29 Labs: Laboratory Results - last 24 hr 06/23/24 13:37: WBC 9.6, RBC 5.28, Hgb 16.4, Hct 50.0, MCV 94.7 H, MCH 31.1, MCHC 32.8, RDW Std Deviation 47.8 H, RDW Coeff of Santiago 13.7, Plt Count 193, MPV 10.9, Immature Gran % (Auto) 0.600, Neut % (Auto) 82.6 H, Lymph % (Auto) 9.6 L, Waller % (Auto) 6.3, Eos % (Auto) 0.4, Baso % (Auto) 0.5, Absolute Neuts (auto) 7.9 H, Absolute Lymphs (auto) 0.92, Nucleated RBC % 0, PT 16.5 H, INR 1.3, APTT 30.7, Sodium 137, Potassium 3.9, Chloride 104, Carbon Dioxide 25.0, Anion Gap 8, BUN 23 H, Creatinine 1.57 H, Estim Creat Clear Calc 40.40, Est GFR (MDRD) Af Amer 55 L, Est GFR (MDRD) Non-Af 45 L, BUN/Creatinine Ratio 14.6, Glucose 124 H, Calcium 9.1, Troponin I High Sens 123 H*, B-Natriuretic Peptide 407.2 H 06/23/24 15:43: Magnesium 2.5, Troponin I High Sens 320 H* 06/23/24 19:35: Troponin I High Sens 1333 H* 06/23/24 22:59: Troponin I High Sens 2084 H* 06/24/24 05:29: WBC 8.7, RBC 4.90, Hgb 14.9, Hct 45.8, MCV 93.5, MCH 30.4, MCHC 32.5, RDW Std Deviation 46.8 H, RDW Coeff of Santiago 13.6, Plt Count 187, MPV 11.0, Immature Gran % (Auto) 0.300, Neut % (Auto) 69.7, Lymph % (Auto) 20.0, Waller % (Auto) 8.4, Eos % (Auto) 1.0, Baso % (Auto) 0.6, Absolute Neuts (auto) 6.0, Absolute Lymphs (auto) 1.73, Nucleated RBC % 0, Sodium 138, Potassium 4.1, Chloride 105, Carbon Dioxide 29.0, Anion Gap 3 L, BUN 21 H, Creatinine 1.34 H, Estim Creat Clear Calc 46.43, Est GFR (MDRD) Af Amer 66, Est GFR (MDRD) Non-Af 54 L, BUN/Creatinine Ratio 15.7, Glucose 141 H, Calcium 8.9, Total Bilirubin 0.90, AST 20, ALT 14 L, Alkaline Phosphatase 103, Total Protein 5.9 L, Albumin 2.9 L, Globulin 3.0, Albumin/Globulin Ratio 1.0 ABG Data ABG results: ABG 06/23/24 06/23/24 14:09 19:58 VBG Carboxyhemoglobin 27.1 H* 9.5 H Radiography Diagnostic Testing: Radiology Impression Chest X-Ray 06/23/24 15:55 IMPRESSION: Trace left pleural effusion versus atelectasis. Otherwise, no acute radiographic abnormalities. Electronically Signed: Black Spence MD at 16:08 EST , Physical Exam Narrative GENERAL: cooperative HEENT: Atraumatic; normocephalic EYES; Anicteric, Normal Conjunctiva NECK; supple, normal thyroid, RESPIRATORY: Diminished to auscultation CARDIOVASCULAR: Regular S1 S2, GI: soft, normoactive bowel sounds, : No Renal angle tenderness; EXTREMITIES: No edema, no clubbing, MUSCULOSKELETAL: no muscle wasting NEURO: Awake; no lateralizing signs. SKIN: No Rash PSYCH; Flat affect Assessment & Plan Assessment/Plan (1) Accidental poisoning by carbon monoxide: (2) Elevated troponin: PLAN: Plan Patient is an 79-year-old lady with history of coronary artery disease with previous non-STEMI with PCI who presented with lightheadedness. Patient was found to have elevated troponin consistent with acute non-STEMI admitted to to a monitored bed for subsequent management 1. Acute non-STEMI ? Patient has been admitted to a monitored bed treatment initiated per protocol with atorvastatin clopidogrel metoprolol. Patient was not started on systemic anticoagulation since patient is already on apixaban. Consult placed to cardiology. Decisions regarding cardiac cath and possible intervention deferred to cardiology 2. Coronary artery disease ? With previous PCI patient is on guideline directed medical therapy 3. Presyncope ? Suspected to be secondary to above being monitored on continuous telemetry 4. Paroxysmal atrial fibrillation ? Rate controlled on systemic anticoagulation with apixaban 5. Chronic congestive heart failure with reduced ejection fraction ? Patient has known EF of 40% based on echo obtained on 09/2023 6. Hypertension ? Blood pressure controlled, home medications continued with dose adjustment as needed 7. Dyslipidemia ?Patient is on statin therapy, continued at home dose 8. GERD ? On PPI 9. BPH with lower urinary obstructive symptoms - Patient treated with tamsulosin 10. Chronic kidney disease stage III ? Kidney function at baseline 11. DVT prophylaxis Patient is on apixaban Time spent in the patient's overall evaluation,decision-making process, review of diagnostic data, adjustment of management, discussion with other providers, nursing nursing and ancillary staff involved in patient's care documentation 50 Minutes Charges/Coding Visit Charges Inpatient E&M: 56487 [facility]
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
[2024-06-24 10:04] VITALS: BP 113/52; PULSE 74; RESP 18; TEMP 36.5; O2SAT 100
[2024-06-24] MEDS: APIXABAN 5 MG TABLET PO ×2 (10:07→21:58)
[2024-06-24] MEDS: Iron Polysaccharide Complex 150 MG CAPSULE PO (10:07)
[2024-06-24] MEDS: Tamsulosin HCl 0.4 MG Capsule PO ×2 (10:07→21:58)
[2024-06-24] MEDS: Spironolactone 25 MG Tablet 12.5 MG PO (10:07)
[2024-06-24] MEDS: Ascorbic Acid 500 MG Tablet PO (10:07)
[2024-06-24] MEDS: Clopidogrel Bisulfate 75 MG Tablet PO (10:08)
[2024-06-24] MEDS: Furosemide 40 MG Tablet PO (10:08)
[2024-06-24] MEDS: Pantoprazole Sodium 40 MG Tablet PO (10:10)
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
[2024-06-24 15:43] VITALS: BP 101/54; PULSE 77; RESP 18; TEMP 36.5; O2SAT 100
--- NOTE | 2024-06-24 15:58 | CASEMGMT ---
Met with patient to complete LIN form. LIN form explained to patient who voiced understanding and signed form. Original form placed in pt?s chart and copy provided to patient. Felisa Velez, Discharge Planning Asst
[2024-06-24 21:43] VITALS: BP 110/79; PULSE 81; RESP 16; TEMP 36.6; O2SAT 100
[2024-06-24 21:58] VITALS: BP 110/79; PULSE 81
[2024-06-24] MEDS: Metoprolol(XL)Succ 25 MG Tablet PO (21:58)
[2024-06-24] MEDS: Atorvastatin Calcium 40 MG Tablet PO (21:58)
[2024-06-24] MEDS: MELATONIN 3 MG TABLET PO (21:58)
[2024-06-25 03:15] VITALS: BP 121/78; PULSE 87; RESP 18; TEMP 36.4; O2SAT 100
[2024-06-25 04:42] VITALS: BMI 29.2
[2024-06-25 06:00] VITALS: O2SAT 93
[2024-06-25 08:01] LABS: Absolute Lymphocyte Count 1.56 X10^3/uL (0.83-4.51); Absolute Neutrophil Count 5.3 X10^3/uL (2.0-7.7); Basophil# 0.03 X10^3/uL; Basophil% 0.4 % (0-1); Eosinophil# 0.16 X10^3/uL; Eosinophils% 2.1 % (0-5); Hematocrit 46.5 % (40-54); Lymphocyte # 1.56 X10^3/ul (0.83-4.51); Mean Corp Hgb Conc 32.3 g/dL (32-36); Mean Corpuscular Hgb 30.4 pg (27.0-32.0); Mean Corpuscular Volume 94.3 fL (80-94); Mean Platelet Vol. 11.4 fl (6.2-12.0); Monocyte# 0.69 X10^3/uL; Monocyte% 8.9 % (0-10); NRBC Flagged by Analyzer 0 % (0-5); Neutrophil # 5.31 X10^3/uL (2.7-7.7); Neutrophil % 68.1 % (47-70); Platelet Count 187 K/mm3 (150-450); RBC Distribution Width CV 13.6 % (11.6-14.6); RBC Distribution Width SD 46.7 fl (35.1-43.9); Red Blood Count 4.93 M/mm3 (4.6-6.2); White Blood Count 7.8 K/mm3 (4.4-11.0)
--- NOTE | 2024-06-25 08:01 | PCM.PN.HOSP ---
Reason for Visit Reason for Visit: Diagnoses Pure hypercholesterolemia, unspecified (06/23/24) Unspecified atrial fibrillation (06/23/24) Acute systolic (congestive) heart failure (06/23/24) Other specified abnormal findings of blood chemistry (06/23/24) Toxic effect of carbon monoxide from unspecified source, accidental (unintentional), initial encounter (06/23/24) [facility] (current) use of anticoagulants (06/23/24) Presence of coronary angioplasty implant and graft (06/23/24) Subjective Subjective Patient's 2D echo performed on 06/24/2024 demonstrated show reduction in his global LV systolic dysfunction. His EF previously was 40% on this repeat it was down to 20%. Cardiology recommends repeating echo as outpatient in 6 to 8 weeks when patient recovers from his carbon monoxide poisoning Objective Data Objective Data Vital Signs: Vital Signs Temp Pulse Resp BP Pulse Ox O2 Del Method O2 Flow Rate 97.5 F L 87 18 121/78 H 100 Nasal Cannula 4 06/25/24 03:15 06/25/24 03:15 06/25/24 03:15 06/25/24 03:15 06/25/24 03:15 06/25/24 03:15 06/25/24 03:15 Oxygen Flow Rate (L/min) 4 Oxygen Delivery Method Nasal Cannula Weight: 87.4 kg Body Mass Index (BMI) 29.2 Intake & Output: Intake and Output for Last 24 Hours 06/23/24 06/24/24 06/25/24 23:59 23:59 23:59 Intake Total 420 / 540 240 / 240 Balance 420 / 540 240 / 240 Lab / Micro Data 06/25/24 06:23 06/25/24 06:23 Radiography Diagnostic Testing: Radiology Impression Echocardiogram 06/23/24 20:43 Interpretation Summary Normal left ventricle. The left ventricular ejection fraction is 20 %. Moderate focal aortic valve calcification. Pulmonary artery systolic pressure is 54 mmHg. Compared to previous study, the left ventricular systolic function has worsened.. Ordering Physician: Bret Green Referring Physician: Mark Go Performed By: Barbara Gutierrez RDCS Rhythm Strip Rhythm Strip: Sinus Rhythm Rate: 60 Ectopy: PVC(s) (Frequent and sometimes bigeminal pattern) Physical Exam Narrative GENERAL: cooperative HEENT: Atraumatic; normocephalic EYES; Anicteric, Normal Conjunctiva NECK; supple, normal thyroid, RESPIRATORY: Diminished to auscultation CARDIOVASCULAR: Regular S1 S2, GI: soft, normoactive bowel sounds, : No Renal angle tenderness; EXTREMITIES: No edema, no clubbing, MUSCULOSKELETAL: no muscle wasting NEURO: Awake; no lateralizing signs. SKIN: No Rash PSYCH; Flat affect Assessment & Plan Assessment/Plan (1) Accidental poisoning by carbon monoxide: QUALIFIERS: Encounter type: initial encounter Qualified Code(s): T58.91XA - Toxic effect of carbon monoxide from unspecified source, accidental (unintentional), initial encounter (2) Elevated troponin: PLAN: Plan Patient is an 79-year-old lady with history of coronary artery disease with previous non-STEMI with PCI who presented with lightheadedness. Patient was found to have elevated troponin consistent with acute non-STEMI admitted to to a monitored bed for subsequent management 1. Acute non-STEMI ? Patient has been admitted to a monitored bed treatment initiated per protocol with atorvastatin clopidogrel metoprolol. Patient was not started on systemic anticoagulation since patient is already on apixaban. Consult placed to cardiology. Decisions regarding cardiac cath and possible intervention deferred to cardiology 06/25/2024; patient's 2D echo performed on 06/24/2024 demonstrated show reduction in his global LV systolic dysfunction. His EF previously was 40% on this repeat it was down to 20%. Cardiology recommends repeating echo as outpatient in 6 to 8 weeks when patient recovers from his carbon monoxide poisoning 2. Accidental carbon monoxide poisoning ? Admitted for symptom management. Ordered serial carboxyhemoglobin level for monitoring plan is to discharge patient when his levels 4 within normal limits. 3. Coronary artery disease ? With previous PCI patient is on guideline directed medical therapy 4. Presyncope ? Suspected to be secondary to above being monitored on continuous telemetry 5. Paroxysmal atrial fibrillation ? Rate controlled on systemic anticoagulation with apixaban 6. Chronic congestive heart failure with reduced ejection fraction ? Patient has known EF of 40% based on echo obtained on 09/2023 ? Repeat echo demonstrated significant reduction in patient EF to 20%. Patient apparently did not tolerate Entresto and ARB due to persistent cough plan is for repeat echo in 6 to 8 weeks as outpatient 7. Hypertension ? Blood pressure controlled, home medications continued with dose adjustment as needed 8. Dyslipidemia ?Patient is on statin therapy, continued at home dose 9. GERD ? On PPI 10. BPH with lower urinary obstructive symptoms - Patient treated with tamsulosin 11. Chronic kidney disease stage III ? Kidney function at baseline 12. DVT prophylaxis Patient is on apixaban Time spent in the patient's overall evaluation,decision-making process, review of diagnostic data, adjustment of management, discussion with other providers, nursing nursing and ancillary staff involved in patient's care documentation 38 Minutes Charges/Coding Visit Charges Inpatient E&M: 58037 Subs Hosp L2
--- NOTE | 2024-06-25 08:07 | PCM.PN.CARD ---
Subjective Subjective Patient reports that he is feeling much better today. His room still smells of smoke. The patient was ambulatory in the halls without restrictions yesterday by his report. He denies any significant dyspnea on exertion denies any shortness of breath denies any PND orthopnea and has no lower extremity edema. His echocardiogram done yesterday does show reduction in his global LV systolic dysfunction. His EF previously was 40% on this repeat it was down to 20%. Repeat carboxyhemoglobin is pending at this time. Objective Data Vital Signs: Vital Signs Temp Pulse Resp BP Pulse Ox O2 Del Method O2 Flow Rate 97.5 F L 87 18 121/78 H 100 Nasal Cannula 4 06/25/24 03:15 06/25/24 03:15 06/25/24 03:15 06/25/24 03:15 06/25/24 03:15 06/25/24 03:15 06/25/24 03:15 Oxygen Flow Rate (L/min) 4 Oxygen Delivery Method Nasal Cannula Weight: 192 lb 10.944 oz Body Mass Index (BMI) 29.2 Intake & Output: Intake and Output for Last 24 Hours 06/23/24 06/24/24 06/25/24 23:59 23:59 23:59 Intake Total 420 / 540 240 / 240 Balance 420 / 540 240 / 240 Lab / Micro Data Attestation: I reviewed the patient's lab results. 06/25/24 06:23 06/24/24 05:29 Labs: Laboratory Results - last 24 hr 06/25/24 06:23: WBC 7.8, RBC 4.93, Hgb 15.0, Hct 46.5, MCV 94.3 H, MCH 30.4, MCHC 32.3, RDW Std Deviation 46.7 H, RDW Coeff of [place] 13.6, Plt Count 187, MPV 11.4, Immature Gran % (Auto) 0.500, Neut % (Auto) 68.1, Lymph % (Auto) 20.0, [place] % (Auto) 8.9, Eos % (Auto) 2.1, Baso % (Auto) 0.4, Absolute Neuts (auto) 5.3, Absolute Lymphs (auto) 1.56, Nucleated RBC % 0 Rhythm Strip Rhythm Strip: Sinus Rhythm Rate: 75 Ectopy: PVC(s) (Frequent and sometimes bigeminal pattern) Cardiology Labs/Tests 06/25/24 06:23: WBC 7.8, RBC 4.93, Hgb 15.0, Hct 46.5, MCV 94.3 H, MCH 30.4, MCHC 32.3, Plt Count 187, MPV 11.4, Immature Gran % (Auto) 0.500, Neut % (Auto) 68.1, Lymph % (Auto) 20.0, [place] % (Auto) 8.9, Eos % (Auto) 2.1, Baso % (Auto) 0.4, Absolute Neuts (auto) 5.3, Nucleated RBC % 0 Rhythm: EKG: ECHO: Stress Test: Cardiac Cath: PCI: CT Surgery: Holter monitor: EPS: PPM: CXR: Chest CT Scan: Radiography Diagnostic Testing: Radiology Impression Echocardiogram 06/23/24 20:43 Interpretation Summary Normal left ventricle. The left ventricular ejection fraction is 20 %. Moderate focal aortic valve calcification. Pulmonary artery systolic pressure is 54 mmHg. Compared to previous study, the left ventricular systolic function has worsened.. Ordering Physician: Bret Green Referring Physician: Mark Go Performed By: Barbara Gutierrez RDCS Physical Exam Narrative Patient's room still smells of smoke. Const alert and oriented x3 HEENT normocephalic Eyes EOMs intact bilaterally Neck no JVD Carotids: Negative for bruit Chest inspection of chest normal Resp normal respiratory effort Auscultation: crackles right base and diminished lung sounds bilateral (posterior) Cardio Rate: regular rate Rhythm: regular rhythm Heart Sounds: S1 normal, S2 normal and murmur systolic (distant ) I/ soft right sternal border; Negative for click or gallop Bruits: Negative for carotid bruit Extremity no pedal edema Skin no rashes or lesions noted Neuro Neuro Narrative: Alert and oriented x 3. Psych mental status grossly normal Assessment & Plan Assessment/Plan (1) Elevated troponin: PLAN: Patient is elevated troponin most probably related to a lack of oxygen transport to the myocardium. This is complicated by his smoke exposure and elevated carboxyhemoglobin of 27%. He also has diffuse small vessel disease in the distal LAD and circumflex distributions. I do not feel that further invasive evaluation is indicated at this time. The patient denies any chest symptoms and is ambulatory in the hallways without restrictions yesterday. (2) Accidental poisoning by carbon monoxide: QUALIFIERS: Encounter type: initial encounter Qualified Code(s): T58.91XA - Toxic effect of carbon monoxide from unspecified source, accidental (unintentional), initial encounter PLAN: Patient's repeat carboxyhemoglobin from this morning is still pending. From a cardiovascular standpoint if this is back down to less than 1.5% he should be able to be discharged to home. (3) Atrial fibrillation: QUALIFIERS: Atrial fibrillation type: paroxysmal Qualified Code(s): I48.0 - Paroxysmal atrial fibrillation PLAN: Patient has been in sinus rhythm throughout his stay here at the hospital. He does have frequent PVCs but no evidence of atrial fibrillation. The patient remains on beta-melissa and Eliquis. He denies any nuisance bleeding. (4) MCFP current use of anticoagulant therapy: PLAN: Patient remains on Eliquis 5 mg twice daily. His weight is over 60 kg and his creatinine is 1.34. The patient denies any nuisance bleeding he remains in normal sinus rhythm at this time. (5) Heart failure with reduced ejection fraction: PLAN: Patient has a history of an ischemic cardiomyopathy. EF prior to his complex cardiovascular revascularization was 15 to 20%. After revascularization it improved to 40%. Echocardiogram done yesterday shows global LV systolic dysfunction with a EF of 20%. The patient does have known small vessel distal disease in the circumflex and LAD distribution and in the face of 27% carboxyhemoglobin it is highly likely he was not receiving adequate oxygenation of his myocardium. His troponins did jump up to 2000. He denies any chest discomfort he has been ambulatory in the halls without dyspnea on exertion. The patient is on guideline directed medical therapy blood pressure and heart rate are adequate. He is intolerant to Entresto and ARB therapy due to cough. The plan would be to continue with recovery from his carbon monoxide exposure and repeat an echocardiogram in 6 to 8 weeks. This would be a limited echo after he is reevaluated in the office. (6) CAD (coronary artery disease): QUALIFIERS: Coronary Disease-Associated Artery/Lesion type: [place] artery [place] vs. transplanted heart: [place] heart Associated angina: without angina Qualified Code(s): I25.10 - Atherosclerotic heart disease of [place] coronary artery without angina pectoris PLAN: The patient has diffuse coronary artery disease status post complex stenting of the ostium of the right coronary artery left main trunk ostium and proximal LAD September 2023 at [facility] by Dr. Magaña. This required lithotripsy due to the heavy calcification. The circumflex could not be revascularized. There is also diffuse distal disease in the LAD. The patient denies any anginal type symptoms. The patient will be reevaluated in our office in 7 to 10 days and then again with a limited echocardiogram at 6 to 8 weeks. PLAN: Plan 1. Continue current home medical therapy for LV recovery. 2. Continue Plavix and Eliquis. He is still within the 1 year timeframe of his left main trunk stent. 3. Will reevaluate in the office in 7 to 10 days. May need to titrate his guideline directed medical therapy. 4. The patient does appear to have some mild dementia and we need to make certain that he is able to continue to accurately take his medical regiment. We also need to keep it as simple as possible. 5. Will repeat limited echocardiogram at 6 to 8 weeks. 6. From a cardiovascular standpoint of the carboxyhemoglobin is back to baseline or normal less than 1.5% the patient should be able to be discharged to home. Charges/Coding Visit Charges Inpatient E&M: 78847 Subs Hosp L3
[2024-06-25 08:42] LABS: Anion Gap 7 (5-15); BUN 25 mg/dL (7-18); BUN/Creat Ratio 18.9 RATIO (10-20); Calcium,Total 8.9 mg/dL (8.5-10.1); Chloride 104 mmol/L (98-107); Creatinine, Serum 1.32 mg/dL (0.70-1.30); EST Glomerular Filtration Rate 55 mL/min (>60); Est Glom Filt Rate - Afr Amer 67 mL/min (>60); Estimated Creatinine Clearance 47.18 ml/min; Glucose 109 mg/dL (74-106); Magnesium 2.5 mg/dL (1.6-2.6); Phosphorus 3.3 mg/dL (2.5-4.9); Potassium 4.2 mmol/L (3.5-5.1); Sodium Level 136 mmol/L (136-145)
[2024-06-25 09:15] VITALS: BP 98/68; PULSE 68; RESP 18; TEMP 36.6; O2SAT 100
[2024-06-25] MEDS: Clopidogrel Bisulfate 75 MG Tablet PO (09:29)
[2024-06-25] MEDS: Furosemide 40 MG Tablet PO (09:29)
[2024-06-25] MEDS: Spironolactone 25 MG Tablet 12.5 MG PO (09:29)
[2024-06-25] MEDS: Pantoprazole Sodium 40 MG Tablet PO (09:29)
[2024-06-25] MEDS: Iron Polysaccharide Complex 150 MG CAPSULE PO (09:29)
[2024-06-25] MEDS: APIXABAN 5 MG TABLET PO (09:29)
[2024-06-25] MEDS: Ascorbic Acid 500 MG Tablet PO (09:29)
[2024-06-25] MEDS: Tamsulosin HCl 0.4 MG Capsule PO (09:31)
[2024-06-25 09:52] LABS: Carboxyhemoglobin Frac (CO) 1.6 % (0.0-1.5)
[2024-06-25 10:30] LABS: Carboxyhemoglobin Order ORDER TUBE
--- NOTE | 2024-06-25 12:33 | DS.PCM_ITS ---
Providers Date of Admission: 06/23/24 Date of Discharge: 06/25/24 Primary Care Physician: Awilda Primary Care Phys Consultations 06/23/24 20:45 Consult: Cardiology Routine Consulting Provider: Gregory Kruse Reason for Consult: NSTEMI w/ carbon monoxide poisoning, h/o CAD w/ stenting and HFrEF EMERGENT Consult: No MD Notified: Yes Date Notified: 06/24/24 Time Notified: 06:40 Method of Notification: Text Reason For Visit: ELEVATED TROPONIN Diagnosis Discharge Diagnosis (1) Accidental poisoning by carbon monoxide: Status: Acute Code(s): T58.91XA - Toxic effect of carbon monoxide from unspecified source, accidental (unintentional), initial encounter Qualifiers: Encounter type: initial encounter Qualified Code(s): T58.91XA - Toxic effect of carbon monoxide from unspecified source, accidental (unintentional), initial encounter (2) Elevated troponin: Status: Acute Code(s): R79.89 - Other specified abnormal findings of blood chemistry Plan Patient is an 79-year-old lady with history of coronary artery disease with previous non-STEMI with PCI who presented with lightheadedness. Patient was found to have elevated troponin consistent with acute non-STEMI admitted to to a monitored bed for subsequent management 1. Acute non-STEMI ? Patient has been admitted to a monitored bed treatment initiated per protocol with atorvastatin clopidogrel metoprolol. Patient was not started on systemic anticoagulation since patient is already on apixaban. Consult placed to cardiology. Decisions regarding cardiac cath and possible intervention deferred to cardiology 06/25/2024; patient's 2D echo performed on 06/24/2024 demonstrated show reduction in his global LV systolic dysfunction. His EF previously was 40% on this repeat it was down to 20%. Cardiology recommends repeating echo as outpatient in 6 to 8 weeks when patient recovers from his carbon monoxide poisoning 2. Accidental carbon monoxide poisoning ? Admitted for symptom management. Ordered serial carboxyhemoglobin level for monitoring plan is to discharge patient when his levels 4 within normal limits. 3. Coronary artery disease ? With previous PCI patient is on guideline directed medical therapy 4. Presyncope ? Suspected to be secondary to above being monitored on continuous telemetry 5. Paroxysmal atrial fibrillation ? Rate controlled on systemic anticoagulation with apixaban 6. Chronic congestive heart failure with reduced ejection fraction ? Patient has known EF of 40% based on echo obtained on 09/2023 ? Repeat echo demonstrated significant reduction in patient EF to 20%. Patient apparently did not tolerate Entresto and ARB due to persistent cough plan is for repeat echo in 6 to 8 weeks as outpatient 7. Hypertension ? Blood pressure controlled, home medications continued with dose adjustment as needed 8. Dyslipidemia ?Patient is on statin therapy, continued at home dose 9. GERD ? On PPI 10. BPH with lower urinary obstructive symptoms - Patient treated with tamsulosin 11. Chronic kidney disease stage III ? Kidney function at baseline 12. DVT prophylaxis Patient is on apixaban Time spent in the patient's overall evaluation,decision-making process, review of diagnostic data, adjustment of management, discussion with other providers, nursing nursing and ancillary staff involved in patient's care documentation 38 Minutes Medications at Discharge Home Medications apixaban 5 mg tablet (Eliquis) 5 mg PO BID 30 days #60 tabs 10/17/23 ascorbic acid (vitamin C) 500 mg tablet 500 mg PO DAILY 30 days #30 tabs 10/17/23 atorvastatin 40 mg tablet 40 mg PO QHS #0 tabs 10/17/23 clopidogrel 75 mg tablet 75 mg PO DAILY #0 tabs 10/17/23 metoprolol succinate 25 mg tablet,extended release 24 hr 25 mg PO QHS #0 tabs 10/17/23 pantoprazole 40 mg tablet,delayed release 40 mg PO DAILY 30 days #30 tabs 10/17/23 polysaccharide iron complex 150 mg iron capsule (Ferrex) 150 mg PO DAILY 30 days #30 caps 10/17/23 spironolactone 25 mg tablet 12.5 mg (1/2 x 25 mg) PO DAILY 30 days #15 tabs 10/17/23 dapagliflozin propanediol 10 mg tablet (Farxiga) 10 mg PO DAILY #30 tabs 10/19/23 furosemide 40 mg tablet 40 mg PO QDAY #90 tabs 05/06/24 tamsulosin 0.4 mg capsule 0.4 mg PO BID 06/23/24 Physical Exam Narrative GENERAL: cooperative HEENT: Atraumatic; normocephalic EYES; Anicteric, Normal Conjunctiva NECK; supple, normal thyroid, RESPIRATORY: Diminished to auscultation CARDIOVASCULAR: Regular S1 S2, GI: soft, normoactive bowel sounds, : No Renal angle tenderness; EXTREMITIES: No edema, no clubbing, MUSCULOSKELETAL: no muscle wasting NEURO: Awake; no lateralizing signs. SKIN: No Rash PSYCH; Flat affect Weight / BMI Weight Weight: 87.4 kg Body Mass Index (BMI) 29.2 ABG / Lab / Microbiology Data 06/25/24 06:23 06/25/24 06:23 Laboratory: Laboratory Results - last 24 hr 06/25/24 06:23: WBC 7.8, RBC 4.93, Hgb 15.0, Hct 46.5, MCV 94.3 H, MCH 30.4, MCHC 32.3, RDW Std Deviation 46.7 H, RDW Coeff of [place] 13.6, Plt Count 187, MPV 11.4, Immature Gran % (Auto) 0.500, Neut % (Auto) 68.1, Lymph % (Auto) 20.0, [place] % (Auto) 8.9, Eos % (Auto) 2.1, Baso % (Auto) 0.4, Absolute Neuts (auto) 5.3, Absolute Lymphs (auto) 1.56, Nucleated RBC % 0, Sodium 136, Potassium 4.2, Chloride 104, Carbon Dioxide 25.0, Anion Gap 7, BUN 25 H, Creatinine 1.32 H, Estim Creat Clear Calc 47.18, Est GFR (MDRD) Af Amer 67, Est GFR (MDRD) Non-Af 55 L, BUN/Creatinine Ratio 18.9, Glucose 109 H, Calcium 8.9, Phosphorus 3.3, Magnesium 2.5 ABG: ABG 06/25/24 09:47 VBG Carboxyhemoglobin 1.6 H Radiography Diagnostic Testing: Radiology Impression Echocardiogram 06/23/24 20:43 Interpretation Summary Normal left ventricle. The left ventricular ejection fraction is 20 %. Moderate focal aortic valve calcification. Pulmonary artery systolic pressure is 54 mmHg. Compared to previous study, the left ventricular systolic function has worsened.. Ordering Physician: Bret Green Referring Physician: Mark Go Performed By: Barbara Gutierrez RDCS D/C Instructions Discharge Diet: Low fat / Low cholesterol and 8 Cup Fluid Restriction Discharge Activity: Return to Normal Activity Call your doctor if you observe: Fever of 101 or Higher, Shortness of breath, Fainting spells and Chest pain DC O2, CPAP, BIPAP Needs Home O2 Discharge instructions: No Meaningful Use Info Meaningful Use Meaningful Use Diagnoses (Choose all that apply): AMI AMI/Post PCI/Angioplasty Aspirin given w/in 24hrs of arrival?: No Reason no aspirin w/in 24hrs of arrival?: on apixaban and Plavix ASA at discharge?: No Reason ASA not ordered:: Warfarin rx at discharge Antiplatelet Therapy at Discharge:: Yes Statins at discharge?: Yes Madi/ARB at discharge?: No Reason Madi/ARB not ordered:: Allergy Beta Mack at discharge?: Yes Done w/ Acute [place] measure.: Yes Documented LVEF (%): 20 Ischemic Stroke Statin Dosing Therapy Reference: STATIN DOSE THERAPY REFERENCE: * Patients > 75 years receive moderate or high dose statin therapy. * Patients 75 years or YOUNGER should receive HIGH intensity statin dose unless contraindicated. You will be required to document reason for non-treatment if statin daily dose does not meet guidelines. HIGH DOSE STATIN THERAPY DAILY Atorvastatin > than or = to 40 mg Rosuvastatin > than or = to 20 mg Amlodipine + Atorvastatin > than or = to 2.5/40 mg Ezetimibe + Simvastatin 10/80 mg Simvastatin 80mg Discharge Plan Admission Admit Date/Time: 06/23/24 16:56 Attending Provider: Chet Edmonds Primary Care Provider: Care Physician,No Primary Consulting Providers: Gregory Kruse; Sarah Perrin Discharge Orders/Prescriptions Prescriptions: Continued tamsulosin 0.4 mg Capsule 0.4 mg PO BID atorvastatin 40 mg Tablet 40 mg PO QHS Qty: 0 0RF polysaccharide iron complex [Ferrex 150] 150 mg iron Capsule 150 mg PO DAILY 30 Days Qty: 30 0RF clopidogrel 75 mg Tablet 75 mg PO DAILY Qty: 0 0RF spironolactone 25 mg Tablet 12.5 mg PO DAILY 30 Days Qty: 15 0RF ascorbic acid (vitamin C) 500 mg Tablet 500 mg PO DAILY 30 Days Qty: 30 0RF pantoprazole 40 mg Tablet,Delayed Release (Dr/Ec) 40 mg PO DAILY 30 Days Qty: 30 0RF metoprolol succinate 25 mg Tablet Extended Release 24 Hr 25 mg PO QHS Qty: 0 0RF Eliquis 5 mg Tablet 5 mg PO BID 30 Days Qty: 60 0RF dapagliflozin propanediol [Farxiga] 10 mg tablet 10 mg PO DAILY Qty: 30 0RF furosemide 40 mg tablet 40 mg PO QDAY Qty: 90 3RF Referrals / Follow Up: Gregory Kruse MD [Med Staff - Active Staff] - Within 2 Weeks Sebastián Stewart MD [Non-Staff] - Within 1 Week Care Physician,No Primary [Primary Care Provider] - Disposition Disposition (needs filled in before D/C Order can be placed): Home, Self Care Charges/Coding Visit Charges Inpatient E&M: 14002 Disch Hosp >30min
[2024-06-25 12:44] VITALS: BP 98/68; PULSE 68; RESP 18; TEMP 36.6; O2SAT 100
[2024-06-25 13:02] VITALS: O2SAT 97
--- NOTE | 2024-06-25 15:30 | CASEMGMT ---
Patient has order for discharge. RN CM in to discuss needs at discharge. Patient denies needs or help at discharge. Patient had no further questions or concerns.
== END 2024-06-25 16:13 | disposition home or self-care (01) ==
LOC: ED 16:39 → PCU 18:38
PROVIDERS: Hospitalist; Admitting Provider Family Medicine; Emergency Provider Emergency Medicine; Referring Provider Emergency Medicine; Visit Provider Internal Medicine
DX: T58.91XA Toxic effect of carbon monoxide from unspecified source, accidental (unintentional), initial encounter (principal); I13.0 Hypertensive heart and chronic kidney disease with heart failure and stage 1 through stage 4 chronic kidney disease, or unspecified chronic kidney disease; I50.23 Acute on chronic systolic (congestive) heart failure; I48.0 Paroxysmal atrial fibrillation; I21.A1 Myocardial infarction type 2; N18.30 Chronic kidney disease, stage 3 unspecified; Z79.01 Long term (current) use of anticoagulants; E78.00 Pure hypercholesterolemia, unspecified; I25.10 Atherosclerotic heart disease of native coronary artery without angina pectoris; Z79.02 Long term (current) use of antithrombotics/antiplatelets; K21.9 Gastro-esophageal reflux disease without esophagitis; D50.9 Iron deficiency anemia, unspecified; Z86.73 Personal history of transient ischemic attack (TIA), and cerebral infarction without residual deficits; R55 Syncope and collapse; Z95.5 Presence of coronary angioplasty implant and graft; Z79.899 Other long term (current) drug therapy; N40.1 Benign prostatic hyperplasia with lower urinary tract symptoms; N13.8 Other obstructive and reflux uropathy; I25.5 Ischemic cardiomyopathy; E66.9 Obesity, unspecified; Z68.30 Body mass index [BMI] 30.0-30.9, adult
CPT/HCPCS: 36415; 71046; 80048; 80053; 82375; 83735; 83880; 84100; 84484; 85025; 85610; 85730; 93005; 93306; 94640; 97161; 97165; 99221; 99284; Q9957; A4216; C8929; G0378

== ENCOUNTER → 2024-08-08 | Outpatient (CLI) | payer MEDICARE, SELFPAY ==
--- NOTE | 2024-08-08 08:58 | ECHOL_ITS ---
Reason For Study : RE-EVAL EF Procedure This was a limited 2D transthoracic echocardiogram. Exam performed in department. Left Ventricle Mildly dilated left ventricle. The estimated ejection fraction is 20 %. Severe global left ventricular systolic dysfunction. Right Ventricle Normal RV size. Normal systolic function. Atria The left atrium is mildly enlarged. The right atrium is mildly enlarged. Mitral Valve Mild mitral annular calcification. Tricuspid Valve Normal tricuspid valve. Mild to moderate (1-2+) tricuspid valve insufficiency. Pulmonary artery systolic pressure is 72 mmHg. Aortic Valve Moderate diffuse aortic valve calcification. Pulmonic Valve The pulmonic valve is not well visualized. Great Vessels The aortic root is not well visualized. Pericardium/Pleural No pericardial effusion. MMode/2D Measurements & Calculations EDV(MOD-sp2): 149.6 ml EDV(sp4-el): 127.3 ml EDV(MOD-sp4): 118.5 ml EDV(sp2-el): 154.7 ml ESV(MOD-sp4): 93.8 ml ESV(MOD-sp2): 113.3 ml ESV(sp2-el): 116.2 ml ESV(sp4-el): 97.7 ml LA A4 area: 25.6 cm?? FS: 11.0 % IVSd: 0.88 cm LAV(MOD-sp2): 80.5 ml LAV(MOD-bp): 88.8 ml LVAd ap4: 35.5 cm?? LAV(MOD-sp4): 92.1 ml LAV(MOD-bp) Indexed: 43.6 ml/m?? LVIDd: 5.8 cm LVAs ap2: 33.2 cm?? LVAd ap2: 39.1 cm?? LVLd ap4: 8.4 cm LVIDs: 5.2 cm LVAs ap4: 30.3 cm?? LVLs ap2: 8.1 cm LVLd ap2: 8.4 cm LVPWd: 0.95 cm LVLs ap4: 8.0 cm RA A4 area: 22.9 cm?? Doppler Measurements & Calculations TR max alaina: 415.1 cm/sec TR max P.9 mmHg Other Measurements & Calculations EF(MOD-sp4): 20.9 % EF(MOD-sp2): 24.3 % EF(sp4-el): 23.3 % SV(MOD-sp4): 24.7 ml SV(MOD-sp2): 36.4 ml SV(sp4-el): 29.6 ml TAPSE: 2.04 cm Conclusions The estimated ejection fraction is 20 %. Severe global left ventricular systolic dysfunction. The left atrium is mildly enlarged. The right atrium is mildly enlarged. Mild mitral annular calcification. Mild to moderate (1-2+) tricuspid valve insufficiency. Pulmonary artery systolic pressure is 72 mmHg. Moderate diffuse aortic valve calcification. Compared to the previous study, the systolic function has remained the same. Ordering Physician: Vidal Banda Performed By: Katherin Mack RDCS Electronically signed by: Ro Kendrick MD 08/08/2024, 4: 21 PM
== END | disposition home or self-care (01) ==
PROVIDERS: Referring Provider Nurse Practitioner Family; Visit Provider Nurse Practitioner Family
DX: R06.09 Other forms of dyspnea (principal); I49.3 Ventricular premature depolarization; Z95.5 Presence of coronary angioplasty implant and graft
CPT/HCPCS: 93308

== ENCOUNTER → 2024-08-26 | Outpatient (CLI) | payer MEDICARE, SELFPAY ==
--- NOTE | 2024-08-26 13:33 | STRESSREP_ITS ---
Stress Test Report Date: 08/26/2024 Procedure: Pharmacologic stress nuclear imaging study Indications: CAD, reduced EF Consent: Per the patient Procedure: The patient underwent pharmacologic (Regadenoson) evaluation with a peak heart rate of 103 beats per minute (74%predicted maximal heart rate) and a peak blood pressure of 110/60 mmHg. The baseline ECG demonstrated normal sinus rhythm, frequent PVCs. EKG during lexiscan infusion revealed no significant ischemic changes. EKG post infusion revealed no significant ischemic changes [There was no complaint of chest discomfort during pharmacologic infusion or recovery]. The examination was discontinued secondary to completion of protocol. Impression: 1. Lexiscan stress test test is negative for Lexiscan infusion induced EKG changes of ischemia. 2. Lexiscan stress test test is negative for Lexiscan infusion induced chest pain. 3. Results of the nuclear portion of the test is as below Myocardial perfusion imaging study: Technique: The patient was injected with 11.8 millicuries of technetium 99m Cardiolite and subsequently rest SPECT Cardiolite nuclear imaging was obtained in the horizontal long, vertical long, and short axis views. The patient underwent pharmacologic [Regadenoson 0.4mg] evaluation. Please see above for details. The patient was injected with [] millicuries of technetium 99m Cardiolite and subsequently stress SPECT Cardiolite nuclear imaging was obtained in the horizontal long, vertical long, and short axis views. A gated Cardiolite study at peak stress was obtained. Interpretation: Rest and stress SPECT Cardiolite nuclear imaging status post realignment, normalization, and attenuation correction demonstrate fixed defects involving the anterior wall, apex and lateral wall suggestive of prior infarction. There is no evidence of significant ischemia. Gated images reveal global hypokinesis. The reported LVEF is 33%. Impression: 1. There is no evidence of significant ischemia. 2. Estimated ejection fraction is 33%. This note was generated with [employer] software. It may contain incorrect words, spelling, and punctuation that were not noted in checking the note before signing.
== END | disposition home or self-care (01) ==
LOC: CVS 06:39
PROVIDERS: Referring Provider Nurse Practitioner Family; Visit Provider Nurse Practitioner Family
DX: I50.20 Unspecified systolic (congestive) heart failure (principal); I49.3 Ventricular premature depolarization; Z95.5 Presence of coronary angioplasty implant and graft
CPT/HCPCS: 78452; 93017; A9500; A4216; J2785

== ENCOUNTER → 2025-02-05 | Outpatient (CLI) | payer MEDICARE, SELFPAY | END | disposition home or self-care (01) | LOC: PSN 07:54 | PROVIDERS: Referring Provider Nurse Practitioner Family; Visit Provider Nurse Practitioner Family | DX: I48.0 Paroxysmal atrial fibrillation (principal); I49.3 Ventricular premature depolarization | CPT/HCPCS: 93225; 93226 ==

== ENCOUNTER → 2025-05-15 | Outpatient (CLI) | payer MEDICARE, SELFPAY ==
--- OUTSIDE RECORDS SUMMARY | 2025-05-15 08:55 | XMS RPT_ITS | CCD ---
Author Organization [facility] Care Team Providers Care Radiologic Technology Teacher Name Role Phone Terry LEE, Iwona Bedoya Primary Care Provider TERRY LEE, IWONA Edmond Primary Care Physician Terry LEE, Iwona Bedoya Primary Care Provider [phone] VERITO DOURIEL Referring Unavailable IWONA STEWART Primary Care Unavailable GROSS DOURIEL Referring Unavailable IWONA STEWART Primary Care Unavailable GROSS DOURIEL Attending Unavailable GROSS DOURIEL Referring Unavailable IWONA STEWART Primary Care Unavailable URIEL PAREDES DO Attending Unavailable IWONA STEWART Primary Care Unavailable Dr. Iwona Stewart Primary Care Provider [phone] Isai Hernandez Emergency Provider Dr. Sean Ayala Admit Provider Dr. Sena Ayala Other Provider Dr. Rodney Brown Attending Provider Unavailabl e Dr. Iwona Stewart Primary Care Provider Dr. Isai Hernandez Emergency Provider Dr. Sean Ayala Admit Provider Dr. Sean Ayala Attending Provider Dr. Sean Ayala Other Provider Dr. Megan Chau Other Provider Dr. Donnell Guevara Other Provider Dr. Meek Coombs Other Provider Dr. Rodney Brown Other Provider Unavailable Baggott, Dr. Rylie Other Provider Dr. Claude Richardson Other Provider Unavailab Winston RESIDENTIAL PROGRAM COORDINATOR, RESIDENTIAL PROGRAM COORDINATOR-C Rosa Other Provider Dr. Megan Chau Attending Provider Dr. Sean Ayala Referring Provider Dr. Iwona Stewart Referring Provider [phone] Bakari RESIDENTIAL PROGRAM COORDINATOR, RESIDENTIAL PROGRAM COORDINATOR-C Petra Attending Provider Dr. Sean Ayala Referring Provider Dr. Mark Powers Attending Provider Bakari RESIDENTIAL PROGRAM COORDINATOR, RESIDENTIAL PROGRAM COORDINATOR-C Petra Referring Provider Bakari RESIDENTIAL PROGRAM COORDINATOR, RESIDENTIAL PROGRAM COORDINATOR-C Petra Other Provider Dr. Don Parker Attending Provider [phone] Angella Rounding Nurse, Farncisco Unavailable Dr. Iwona Espinoza Primary Care Provider Dr. Iwona Stewart Referring Provider Bakari RESIDENTIAL PROGRAM COORDINATOR, RESIDENTIAL PROGRAM COORDINATOR-C Petra Attending Provider Bakari RESIDENTIAL PROGRAM COORDINATOR, RESIDENTIAL PROGRAM COORDINATOR-C Petra Referring Provider Bakari RESIDENTIAL PROGRAM COORDINATOR, RESIDENTIAL PROGRAM COORDINATOR-C Petra Other Provider Dr. Don Parker Attending Provider Dr. Chet Edmonds Admit Provider Unavailable Dr. Chet Edmonds Other Provider Unavailable Dr. Faizan Jackman Other Provider Dr. Bret Green Attending Provider Dr. Bret Green Other Provider Dr. Faizan Jackman Attending Provider Dr. Natalia Garcia Attending Provider Dr. Natalia Garcia Other Provider Dr. Gregory Kruse Attending Provider [phone] Iwona Stewart Primary Care Provider Iwona Stewart Primary Care Provider Dr. Iwona Stewart Primary Care Provider Elean, Dr. Ochoa Attending Provider [phone] Dr. Don Parker Referring Provider [phone] Dr. Mark Powers Attending Provider [phone] Gasper, Dr. Gloria Referring Provider [phone] Spencer, Dr. David Quintanilla Admit Provider Spencer, Dr. David Quintanilla Referring Provider Spencer, Dr. David Quintanilla Other Provider Friend, Dr. Garcia Attending Provider [phone] Friend, Dr. Garcia Other Provider [phone] Friend, Dr. Garcia Referring Provider [phone] Petra Hdez Attending Provider Unavailable GASPER, FAIZAN Referring Unavailable IWONA STEWART Primary Care Unavailable CHARLETTE BORRERO Consulting Unavailable AMOS NICHOLE Attending Unavailable AMOS NICHOLE Admitting Unavailable CANDIE LEE, DR IWONA Figueredo Attending IWONA Estevez MD Primary Care Unavailable CANDIE LEE, DR IWONA Figueredo Admitting Unavailab lori PLUMMER DO, DELMIS Consulting Unavailable JULIO GRIMALDO, EBEN Louise Consulting IWONA Garcia MD Consulting Unavailable ANA TORRES-GELY, MASSIEL Reddy Consulting Elbert SCHREIBER MD, DR IWONA Figueredo Attending UnavailIWONA Aggarwal MD Primary Care Unavailable EBEN KIM PA-C Attending Unavailable IWONA STEWART MD Primary Care Unavailable EVELYNE TORRES-AIRPLANE FIRST OFFICER, ELIZA Murray Admitting UnavailIWONA Redman MD Primary Care Unavailable KAREN MULLER, DR KATHLEEN Attending Unavailable WILLY MULLER, DR GRISELDA Acuña Attending Unavailable IWONA STEWART MD Primary Care Unavailable CANDIE LEE, DR IWONA Figueredo Attending Unavailab IWONA Chen MD Primary Care Unavailable IWONA STEWART MD Attending Unavailable IWONA STEWART MD Primary Care Unavailable IWONA STEWART MD Attending Unavailable TERRY LEE, IWONA Edmond Primary Care Unavailable IWONA STEWART MD Attending Unavailable TERRY LEE, IWONA Edmond Primary Care Unavailable IWONA STEWART MD Attending Unavailable IWONA STEWART MD D Primary Care Unavailable Unavailable Primary Care Provider Unavailearl Go DO, Dr. Flores Emergency Provider Care Physician, No Primary Primary Care Provider Unavailable Aydin LEE, Dr. Sarah Reddy Attending Provider Abbi MULLER, Dr. Flores Referring Provider Aydin LEE, Dr. Sarah Reddy Admit Provider Aydin LEE, Dr. Sarah Reddy Other Provider Aixa LEE, Dr. Jenkins Other Provider Kendal LEE, Dr. Rosenberg Attending Provider Unavaila vick Parker MD, Dr. Ochoa Attending Provider [phone] Kendal LEE, Dr. Rosenberg Other Provider Unavailable Aixa LEE, Dr. Jenkins Attending Provider Terry LEE, Dr. Lowery Referring Provider Roof RESIDENTIAL PROGRAM COORDINATOR-C, Vidal H Attending Provider [phone] Roof RESIDENTIAL PROGRAM COORDINATOR-C, Vidal H Referring Provider Mireille LEE, Dr. Starr Attending Provider Care Physician, No Primary Referring Provider Un available Roof RESIDENTIAL PROGRAM COORDINATOR-C, Vidal H Other Provider Isac LEE, Dr. Guzman Attending Provider Care Physician, No Primary Primary Care Provider Unavailable Roof RESIDENTIAL PROGRAM COORDINATOR-C, Vidal H Attending Provider [phone] Care Physician, No Primary Primary Care Provider Unavailable Care Physician, No Primary Referring Provider Un available Roof RESIDENTIAL PROGRAM COORDINATOR-C, Vidal H Attending Provider Roof RESIDENTIAL PROGRAM COORDINATOR-C, Vidal H Referring Provider Francisco LEE, Dr. Tran Attending Provider Elena LEE, Dr. Ochoa Attending Provider [phone] Deepthi LEE, Dr. Casas Attending Provider [phone] Francisco LEE, Dr. Tran Primary Care Provider [phone] SELF Referring Unavailable MARISSA SORTO Attending Unavailable MARISSA SORTO Referring Unavailable KIM PRATT Attending Unavailable Ro Kendrick Attending Unavailable Care Physician, No Primary Primary Care Unava ilable Iwona Stewart Referring Unavailable Care Physician, No Primary Primary Care Unava ilable Roof RESIDENTIAL PROGRAM COORDINATOR, Vidal Kelsey Attending Unavailable Care Physician, No Primary Primary Care Unava ilable Sarah Perrin Attending Unavailable Schwtori, Mark Referring Unavailable Care Physician, No Primary Primary Care Unava ilable Sarah Perrin Admitting Unavailable Chet Edmonds Attending Unavailable Gregory Kruse Consulting Unavailable Abbi, Mark Referring Unavailable Sarah Perrin Consulting Unavailable Chet Edmonds Consulting Unavailable Iwona Stewart Primary Care Unavailable Bakari RESIDENTIAL PROGRAM COORDINATOR, Petra Attending Unavailable Bakari RESIDENTIAL PROGRAM COORDINATOR, Petra Referring Unavailable Care Physician, No Primary Primary Care Unava ilable Roof RESIDENTIAL PROGRAM COORDINATOR, Vidal Kelsey Attending Unavailable Roof RESIDENTIAL PROGRAM COORDINATOR, Vidal Kelsey Referring Unavailable Care Physician, No Primary Primary Care Unava ilable Sarah Perrin Admitting Unavailable Chet Edmonds Attending Unavailable Gregory Kruse Consulting Unavailable Abbi, Mark Referring Unavailable Sarah Perrin Consulting Unavailable Care Physician, No Primary Primary Care Unava ilable Megan Chau Attending Unavailabl e Roof RESIDENTIAL PROGRAM COORDINATOR, Vidal Kelsey Referring Unavailable Roof RESIDENTIAL PROGRAM COORDINATOR, Vidal Kelsey Consulting Unavailable Care Physician, No Primary Primary Care Unava ilable Don Parker Attending Unavailable Roof RESIDENTIAL PROGRAM COORDINATOR, Vidla Kelsey Referring Unavailable Gregory Kruse Attending Unavailable Care Physician, No Primary Primary Care Unava ilable Roof RESIDENTIAL PROGRAM COORDINATOR, Vidal Kelsey Referring Unavailable Roof RESIDENTIAL PROGRAM COORDINATOR, Vidla Kelsey Attending Unavailable Augusto Lacey Referring Unavailable Augusto Lacey Attending Unavailable Chelsea Singh Primary Care Unavailable Care Physician, No Primary Primary Care Unava ilable Roof RESIDENTIAL PROGRAM COORDINATOR, Vidal Kelsey Attending Unavailable Roof RESIDENTIAL PROGRAM COORDINATOR, Vidal Kelsey Referring Unavailable Care Physician, No Primary Referring Unava ilable Roof RESIDENTIAL PROGRAM COORDINATOR, Vidal Kelsey Attending Unavailable Care Physician, No Primary Primary Care Unava ilable Care Physician, No Primary Primary Care Unava ilable Care Physician, No Primary Referring Unava ilable Roof RESIDENTIAL PROGRAM COORDINATOR, Vidal Kelsey Attending Unavailable Care Physician, No Primary Primary Care Unava ilable Care Physician, No Primary Referring Unava ilable Chelsea Singh Attending Unavailable Care Physician, No Primary Referring Unava ilable Augusto Lacey Attending Unavailable Francisco Chelsea Primary Care Unavailable Don Parker Attending Unavailable Care Physician, No Primary Primary Care Unava ilable Allergies Allergy Classification Reported Allergen(s) Allergy Type Date of Onset Reaction(s) Facility (15 sources) sacubitril / valsartan; Translations: [SACUBITRIL-BOB SARTAN] Drug Allergy 0 Cough, Nausea And Vomiting [facility] (9 sources) sacubitril / valsartan; Translations: [sacubitril-bob sartan] Drug Allergy Unknown (qualifier value) [facility] (12 sources) Wool; Translations: [WOOL] Allergy to substance 5 Unknown [facility] (14 sources) sacubitril; Translations: [SACUBITRIL] Drug Allergy 3 [facility] (14 sources) valsartan; Translations: [VALSARTAN] Drug Allergy 3 [facility] (6 sources) Lanolin; Translations: [LANOLIN] Drug Allergy 4 Other: See Comments [facility] (1 source) sacubitril Drug Allergy 5 [facility] (1 source) valsartan Drug Allergy 5 [facility] Medications Current Medications Medication Drug Class(es) Dates Sig (Normalized) Sig (Original) acetaminophen 500 mg oral tablet (17 sources) Start: 10-25-2023 acetaminophen 500 mg oral tablet Dose : 500 mg = 1 tab(s), Oral, q6hr, PRN pain or fever, 0 Refill(s) Start Date: 10/25/23 Status: Ordered Start: 10-17-2023 End: 10-31-2023 take 2 tablets by mouth every six hours as needed for pain Acetaminophen 500 mg Tablet Discontinued 1000 mg PO EVERY 6 HOURS NEEDED as needed for Pain Score 1-10 0 0 October 17, 2023 12:00am October 31, 2023 9:32am Start: 10-17-2023 take 1000 mg by mout h every six hours as needed Acetaminophen Active 1000 MG PO EVERY 6 HOURS NEEDED 0 October 17, 2023 12:00am Start: 10-12-2023 End: 10-17-2023 take 2 capsules by mouth every six hours as needed for pain Acetaminophen 500 mg capsule Discontinued 1000 mg PO EVERY 6 HOURS as needed for pain October 12, 2023 12:00am October 17, 2023 9:11pm Start: 10-12-2023 End: 10-17-2023 take 1000 mg by mouth every six hours Acetaminophen Discontinued 1000 MG PO EVERY 6 HOURS October 12, 2023 12:00am October 17, 2023 9:11pm Start: 09-19-2023 End: 10-03-2023 take 1 tablet by mouth once daily acetaminophen 500 mg oral tablet Dose : 1,000 mg = 2 tab(s), Oral, TID, PRN as needed for pain, not to exceed 3000 mg/day, X 14 day(s), # 100 tab(s), 0 Refill(s), 10/03/23 7:59:00 AM EDT, Pharmacy: [facility]/pharmacy #[id number], 170, cm, 09/18/23 17:05:00 EDT, Height, kg, 09/18/23 17:05:00 EDT, Dosing Weight Start Date: 09/19/23 Stop Date: 10/03/23 Status: Ordered [id number] 200 actuat albuterol 0.09 mg/actuat metered dose inhaler (1 source) beta2-Adrenergic Agonist Start: 08-18-2024 End: 08-28-2024 take 2 puff(s) by inhalation every four hours as needed for wheezing albuterol HFA (PROVENTIL HFA, VENTOLIN HFA) 90 mcg/actuation inhaler Indications: Subacute cough , Community acquired pneumonia of left lower lobe of lung Inhale 2 Puffs as instructed every 4 hours as needed for wheezing/shortness of breath for up to 10 days. 1 Each 08/18/2024 08/28/2024 Active amoxicillin 875 mg / clavulanate 125 mg oral tablet (1 source) Penicillin-class Antibacterial Start: 08-18-2024 End: 08-23-2024 take 1 tablet by mouth twice daily amoxicillin-clavulanat e potassium (AUGMENTIN) 875-125 mg per tablet Indications: Subacute cough , Community acquired pneumonia of left lower lobe of lung Take 1 tablet by mouth two times a day for 5 days. 10 tablet 08/18/2024 08/23/2024 Active ascorbic acid 500 mg oral tablet (20 sources) Vitamin C Start: 09-25-2023 End: 10-05-2023 take 500 mg by mouth once daily 500 mg, Oral, Daily, First dose (after last modification) on Sun09/25/23 at 1400 Start: 08-25-2022 take 1 tablet by mouth once da ian Ascorbic Acid (Vitamin C) 500 mg Tablet Active 500 mg PO DAILY October 17, 2023 12:00am Start: 08-25-2022 Vitamin C qDay , 0 Refill(s) Start Date: 08/25/22 Status: Ordered take 1 tablet by mouth once umer y Comment on above: Take 500 mg by mouth once daily. benzonatate 100 mg oral capsule (1 source) Non-narcotic Antitussive Start: 08-19-19 End: 08-26-19 take 1-2 capsules by mouth three times daily as needed for cough benzonatate (TESSALON PERLES) 100 mg capsule Indications: Subacute cough , Community acquired pneumonia of left lower lobe of lung Take 1-2 capsules by mouth three times a day as needed for cough for up to 7 days. 42 capsule 08/18/2024 08/25/2024 Active Cholecalciferol (7 sources) Vitamin D Start: 08-26-19 take 1 capsule by mouth once daily Vitamin D (3) 45 units oral capsule Dose : 100 mcg =, Oral, qDay, 0 Refill(s) Start Date: 08/25/22 Status: Ordered Start: 08-25-2022 Vitamin D (3) 45 units oral capsule 0 Refill(s) Start Date: 08/25/22 Status: Ordered dexamethasone 4 mg oral tablet (1 source) Corticosteroid Start: 08-11-2022 End: 08-15-2022 take 1 tablet by mouth once daily dexAMETHasone (DECADRON) 4 mg tablet Indications: Left sided sciatica Take 1 tablet by mouth once daily for 4 days. 4 tablet 0 08/11/2022 08/15/2022 Active Comment on above: Take 1 tablet by kiersten once daily for 4 days. diclofenac sodium 0.01 mg/mg topical gel (2 sources) Nonsteroidal Anti-inflammatory Drug Start: 05-18-2023 diclofenac 1% topical gel 4 = gram(s), Topical, TID, apply to left hip three times daily as needed., # 100 gram(s), 1 Refill(s), Pharmacy: [facility]/pharmacy #[id number], Gel, 170.2, cm, 05/18/23 12:59:00 EST, Height, 91.5, kg, 05/18/23 12:47:00 EST, Dosing Weight Start Date: 05/18/23 Status: Ordered doxycycline monohydrate 100 mg oral tablet (7 sources) Tetracycline-class Drug Start: 08-18-2024 End: 08-23-2024 take 1 tablet by mouth twice daily doxycycline monohydrate 100 mg tablet Indications: Subacute cough , Community acquired pneumonia of left lower lobe of lung Take 1 tablet by mouth two times a day for 5 days. 10 tablet 08/18/2024 08/23/2024 Active Start: 10-12-2023 End: 10-17-2023 take 1 capsule by mouth twice daily Doxycycline Monohydrate 100 mg capsule Discontinued 100 mg PO TWICE A DAY October 12, 2023 12:00am October 17, 2023 9:11pm famotidine 20 mg oral tablet (3 sources) Histamine-2 Receptor Antagonist Start: 09-21-2023 End: 10-21-2023 Pepcid 20 mg oral tablet Dose : 20 mg = 1 tab(s), Oral, qDay, 0 Refill(s) Start Date: 09/21/23 Stop Date: 10/21/23 Status: Ordered ferrous sulfate 325 mg oral tablet (3 sources) Start: 09-21-2023 End: 10-12-2023 ferrous sulfate 325 mg (65 mg elemental iron) oral tablet Dose : 325 mg = 1 tab(s), Oral, BID, 0 Refill(s) Start Date: 09/21/23 Stop Date: 10/12/23 Status: Ordered fluticasone propionate 0.05 mg/actuat metered dose nasal spray (1 source) Corticosteroid Start: 08-18-2024 take 1 spray(s) nasal route once daily fluticasone (FLONASE ALLERGY RELIEF) 50 mcg/actuation nasal spray Indications: Subacute cough , Community acquired pneumonia of left lower lobe of lung Use 1 [place] in each nostril once daily. 11.1 mL 08/18/2024 Active Iron Polysaccharide Complex (as elemental iron) 150 mg oral capsule (2 sources) Start: 11-13-2023 Iron Polysaccharide Complex (as elemental iron) 150 mg oral capsule Dose : 150 mg = 1 cap(s), Oral, qDay, # 90 cap(s), 3 Refill(s), Pharmacy: [facility], 170.2, cm, 10/25/23 13:04:00 EDT, Height, kg, 10/25/23 13:04:00 EDT, Dosing Weight Start Date: 11/13/23 Status: Ordered ketorolac tromethamine 5 mg/ml ophthalmic solution (1 source) Nonsteroidal Anti-inflammatory Drug, Cyclooxygenase Inhibitor Start: 12-02-2022 End: 12-09-2022 ketorolac 0.5% ophthalmic solution Dose = 1 drop(s), Eye, left, QID, PRN Pain, X 7 day(s), # 10 mL, 0 Refill(s), Corneal abrasion Start Date: 12/02/22 Stop Date: 12/09/22 Status: Ordered Magnesium Oxide (10 sources) MAGNESIUM OXIDE ORAL Take 1,000 mg by mouth. Take every 2-3 days Active MAGNESIUM OXIDE ORAL Take 1,000 mg by mouth. Take every 2-3 days 0 Active Comment on above: Take 1,000 mg by kiersten th. Take every 2-3 days melatonin 12 mg oral tablet (20 sources) Start: 10-25-2023 take 1 dose by mouth once daily at bedtime as needed for sleep melatonin Dose : 12 mg =, Oral, qHS, PRN sleep, 0 Refill(s) Start Date: 10/25/23 Status: Ordered Start: 10-05-2023 take 1 tablet by kiersten th once daily as needed for sleep melatonin 10 MG tablet Take 1 tablet (10 mg) by mouth Nightly as needed (for sleep). 0 10/05/2023 Active Start: 09-25-2023 End: 10-05-2023 take 10 mg by mouth once daily as needed for sleep 10 mg, Oral, Nightly PRN, sleep, Starting on Sun09/25/23 at 2128 Start: 05-02-2023 End: 10-17-2023 take 1 capsule by mouth at bedtime Melatonin 10 mg capsule Discontinued 10 mg PO AT BEDTIME September 23, 2023 12:00am October 17, 2023 9:11pm sleep 24 hr metoprolol succinate 25 mg extended release oral tablet (20 sources) beta-Adrenergic Melissa Start: 01-29-2024 metopr olol succinate 25 mg oral TABLET extended release Dose : 25 mg = 1 tab(s), Oral, qDay, Do not crush or chew (controlled release), # 30 tab(s), 0 Refill(s) Start Date: 01/29/24 Status: Ordered Start: 10-17-2023 take 25 mg by mouth at bedtime Metoprolol Succinate Active 25 MG PO AT BEDTIME 0 October 17, 2023 12:00am Start: 09-30-2023 End: 09-30-2023 take 25 mg by mouth once 25 mg, Oral, Once, On Sun at 0900, For 1 dose Start: 09-29-2023 End: 09-29-2023 5 mg, IntraVENous, Once, On 09/29/23 at 1415, For 1 dose Start: 09-29-2023 End: 09-29-2023 5 mg, IntraVENous, Once, On 09/29/23 at 1415, For 1 dose Start: 09-25-2023 End: 09-30-2023 50 mg, Oral, Nightly, First dose (after last modification) on Sun09/28/23 at 2100, Hold SBP < 100,HR < 60 Do not crush or chew. Start: 09-21-2023 End: 10-04-2024 metoprolol succinate 50 mg o ral TABLET extended release Dose : 50 mg = 1 tab(s), Oral, BID, # 180 tab(s), 3 Refill(s), Pharmacy: [facility]/pharmacy #[id number], 170.2, cm, 10/25/23 13:04:00 EDT, Height, kg, 10/25/23 13:04:00 EDT, Dosing Weight Start Date: 11/20/23 Status: Ordered Start: 09-21-2023 End: 09-21-2023 take 2 tablets by mouth in the morning metoprolol succinate 25 mg oral TABLET extended release Start: 09/21/23 8:00:00 AM EDT, Dose = 100 mg, = 2 tab(s), Oral, Hold if SBP (mmHg) Start Date: 09/21/23 Stop Date: 09/21/23 Status: Completed Start: 09-20-2023 End: 09-21-2023 metoprolol tartrate 1 mg/mL injectable solution Start: 09/20/23 9:57:00 PM EDT, Dose = 5 mg, = 5 mL, IV Push, q4h, PRN, Heart rate: Parameters in order comments, give for sustained HR > 110, 09/20/23 21:57:00 EDT Start Date: 09/20/23 Stop Date: 09/21/23 Status: Discontinued Start: 07-23-2023 Metoprolol Suc cinate ER 25 mg oral TABLET extended release Dose : 25 mg = 1 tab(s), Oral, qDay, # 30 tab(s), 0 Refill(s) Start Date: 07/23/23 Status: Ordered Start: 06-01-2023 End: 10-17-2023 Metoprolol Succinate 25 mg t ablet extended release 24 hr Discontinued 50 mg PO DAILY 180 0 June 01, 2023 4:34pm October 17, 2023 9:11pm heart blockage Start: 06-01-2023 End: 10-17-2023 take 50 mg by mouth once daily Metoprolol Succinate Di scontinued 50 MG PO DAILY 180 June 01, 2023 4:34pm October 17, 2023 9:11pm Start: 04-27-2023 End: 06-01-2023 take 1 tablet by mouth once daily Metoprolol Succinate 25 mg tablet extended release 24 hr Discontinued 25 mg PO DAILY April 27, 2023 1:00am June 01, 2023 4:35pm heart blockage Start: 02-07-2023 take 1 tablet by kiersten th every twenty-four hours at bedtime Metoprolol Succinate 25 mg Tablet Extended Release 24 Hr Active 25 mg PO AT BEDTIME 0 0 October 17, 2023 12:00am Start: 07-06-2022 End: 02-07-2023 take 1 tablet by mouth once daily at bedtime metoprolol succinate ER (TOPROL XL) 25 mg 24 hr tablet TAKE 1 TABLET BY MOUTH EVERYDAY AT BEDTIME 90 tablet 1 07/06/2022 02/07/2023 Discontinued Start: 06-17-2022 take 1 tablet by kiersten th once daily at bedtime metoprolol succinate ER (TOPROL XL) 25 mg 24 hr tablet TAKE 1 TABLET BY MOUTH EVERYDAY AT BEDTIME 90 tablet 1 06/17/2022 Active Start: 11-22-2020 End: 06-15-2022 take 1 tablet by mouth once daily at bedtime metoprolol succinate ER (TOPROL XL) 25 mg 24 hr tablet TAKE 1 TABLET BY MOUTH EVERYDAY AT BEDTIME 90 tablet 1 11/21/2021 06/15/2022 Discontinued Start: 04-18-2020 Metoprolol Suc cinate ER 25 mg oral TABLET extended release 0 Refill(s) Start Date: 04/18/20 Status: Ordered Comment on above: TAKE 1 TABLET BY KIERSTEN EVERYDAY AT BEDTIME TAKE 1 TABLET AT BED TIME oxyCODONE hydrochloride 5 mg oral tablet (7 sources) Opioid Agonist Start: 09-21-2023 oxyCODONE 5 mg oral tablet ( IMMEDIATE release ) Dose : 5 mg = 1 tab(s), Oral, q4h, PRN Pain, scale 4-6, 0 Refill(s), 95.3 Start Date: 09/21/23 Status: Ordered Start: 05-31-2023 End: 06-07-2023 oxyCODONE 5 mg oral tablet ( IMMEDIATE release ) Dose : 5 mg = 1 tab(s), Oral, q6h, PRN for pain, X 7 day(s), # 28 tab(s), 0 Refill(s), 06/07/23 2:25:00 PM EST, Pharmacy: [facility]/pharmacy #[id number], Osteoarthritis of left hip UTI (urinary tract infection), 170.2, cm, 05/31/23 13:48:00 EST, Height, 93, kg, 05/31/23 13:43:00 EST, Dosing Weight Start Date: 05/31/23 Stop Date: 06/07/23 Status: Ordered polyethylene glycol 3350 24890 mg powder for oral solution (14 sources) Osmotic Laxative Start: 10-06-2023 End: 10-09-2023 take 17 g by mouth once daily polyethylene glycol, PEG, 3350 (Miralax) 17 g packet Take 17 g by mouth daily for 3 days. 0 10/06/2023 10/09/2023 Active Start: 09-28-2023 End: 10-05-2023 take 1 dose by mouth every twenty-four hours for constipation 17 g, Oral, Daily, First dose (after last modification) on Sun09/28/23 at 0945, 1st line for treatment of constipation - give scheduled if no bowel movement in past 24 hours. Start: 04-29-2023 End: 05-14-2023 take 17 g by mouth once daily as needed for constipation Polyethylene Glycol 3350 17 gram Powder In Packet Discontinued 17 g PO DAILY as needed for CONSTIPATION 0 0 April 29, 2023 1:00am May 14, 2023 2:31pm OTC polymyxin b 46848 unt/ml / trimethoprim 1 mg/ml ophthalmic solution (1 source) Dihydrofolate Reductase Inhibitor Antibacterial, Polymyxin-class Antibacterial Start: 12-02-2022 End: 12-09-2022 polymyxin B-trimethoprim 10,000 units-1 mg/mL ophthalmic solution Dose = 2 drop(s), Eye, left, q6h, X 7 day(s), # 10 mL, 0 Refill(s), Corneal abrasion Start Date: 12/02/22 Stop Date: 12/09/22 Status: Ordered saw palmetto 320mg with phytosterols oral capsule (1 source) Start: 05-01-2024 saw palmetto 320mg with phytosterols oral capsule Dose : 320 mg = 1 cap(s), Oral, BID, 0 Refill(s) Start Date: 05/01/24 Status: Ordered saw palmetto oral capsule (7 sources) Start: 08-25-2022 take 1 capsule by mouth twice daily saw palmetto oral capsule See Instructions, 1 CAP bid, 0 Refill(s) Start Date: 08/25/22 Status: Ordered Start: 08-25-2022 saw palmetto o ral capsule 0 Refill(s) Start Date: 08/25/22 Status: Ordered saw palmto frt xtr-zinc [place] 80-15 mg cap (10 sources) take 1 capsule by mo uth twice daily saw palmto frt xtr-zinc [place] 80-15 mg cap Take 1 capsule by mouth twice daily. Active take 1 capsule by mouth twice da ian saw palmto frt xtr-zinc picoli 80-15 mg cap Take 1 capsule by mouth twice daily. 0 Active take 1 capsule by mouth three ti mes daily saw palmto frt xtr-zinc picoli 80-15 mg cap Take 1 capsule by mouth three times daily. 0 Active Comment on above: Take 1 capsule by mo uth three times daily. Take 1 capsule by mo uth twice daily. sulfamethoxazole 800 mg / trimethoprim 160 mg oral tablet (2 sources) Dihydrofolate Reductase Inhibitor Antibacterial, Sulfonamide Antimicrobial Start: End: take 1 tablet by mouth twice daily Bactrim DS 800 mg-160 mg oral tablet Dose = 1 tab(s), Oral, BID, X 14 day(s), # 28 tab(s), 0 Refill(s), [id number], 170.2, cm, 05/01/24 11:25:00 EST, Height, 93.2, kg, 05/01/24 11:25:00 EST, Dosing Weight Start Date: 05/01/24 Stop Date: 05/15/24 Status: Ordered Start: 05-31-2023 End: 06-10-2023 take 1 tablet by mouth twice daily Bactrim DS 800 mg-160 mg oral tablet Dose = 1 tab(s), Oral, BID, X 10 day(s), # 20 tab(s), 0 Refill(s), [id number], 170.2, cm, 05/31/23 13:48:00 EST, Height, 93, kg, 05/31/23 13:43:00 EST, Dosing Weight Start Date: 05/31/23 Stop Date: 06/10/23 Status: Ordered tiZANidine 4 mg oral tablet (1 source) Central alpha-2 Adrenergic Agonist Start: 08-11-2022 End: 08-14-2022 take 1 tablet by mouth every eight hours as needed tiZANidine (ZANAFLEX) 4 mg tablet Indications: Left sided sciatica Take 1 tablet by mouth every 8 hours as needed for up to 3 days. 9 tablet 0 08/11/2022 08/14/2022 Active Comment on above: Take 1 tablet by kiersten every 8 hours as needed for up to 3 days. torsemide 10 mg oral tablet (7 sources) Loop Diuretic Start: 10-05-2023 End: 10-04-2024 take 1 tablet by mouth every twenty-four hours as needed torsemide (Demadex) 10 MG tablet Take 1 tablet (10 mg) by mouth Daily as needed (for weight gain 3 lbs in day, or 5 lbs in 1 week and with swelling and dyspnea). 0 10/05/2023 10/04/2024 Active Start: 09-29-2023 End: 10-04-2023 take 10 mg by mouth once daily 10 mg, Oral, Daily, Fir st dose (after last modification) on Sun10/03/23 at 1230 traMADol hydrochloride 50 mg oral tablet (1 source) Opioid Agonist Start: 08-11-2022 End: 08-16-2022 take 1 tablet by mouth every eight hours as needed for pain traMADol (ULTRAM) 50 mg tablet Indications: Left sided sciatica Take 1 tablet by mouth every 8 hours as needed for pain for up to [address] WHILE USING 15 tablet 0 08/11/2022 08/16/2022 Active Comment on above: Take 1 tablet by kiersten th every 8 hours as needed for pain for up to [address] WHILE USING zinc gluconate 50 mg oral tablet (6 sources) Start: 08-21-2023 zinc (as gluco yuriy) 50 mg oral tablet Dose : 50 mg = 1 tab(s), Oral, Daily, # 30 tab(s), 0 Refill(s) Start Date: 08/21/23 Status: Ordered Completed/Discontinued Medications Medication Drug Class(es) Dates Sig (Normalized) Sig (Original) acetaminophen 325 mg / HYDROcodone bitartrate 5 mg oral tablet (10 sources) Opioid Agonist Start: 04-27-2023 End: 10-17-2023 Hydrocodone-Acetami nophen 5-325 mg tablet Discontinued 1 {tbl} PO EVERY 6 HOURS as needed for hip pain April 27, 2023 1:00am October 17, 2023 9:11pm Start: 04-27-2023 End: 10-17-2023 take 1 tablet by mouth every six hours Hydrocodone-Acetaminophen Discontinued 1 TABLET PO EVERY 6 HOURS April 27, 2023 1:00am October 17, 2023 9:11pm Start: 12-02-2022 End: 12-05-2022 take 1 tablet by mouth every six hours as needed for pain [place] 325- 5 mg oral tablet Dose = 1 tab(s), Oral, q6h, PRN as needed for pain, X 3 day(s), # 12 tab(s), 0 Refill(s), Corneal abrasion, 94.7 Start Date: 12/02/22 Stop Date: 12/05/22 Status: Ordered albuterol 0.833 mg/ml / ipratropium bromide 0.167 mg/ml inhalation solution (2 sources) Anticholinergic, beta2-Adrenergic Agonist Start: 09-26-2023 End: 10-05-2023 3 mL, Nebulization, Every 8 hours PRN, wheezing, shortness of breath, Starting on Sun09/26/23 at 1617 amiodarone hydrochloride 200 mg oral tablet (20 sources) Antiarrhythmic Start: 11-05-2024 End: 02-10-2025 take 1 tablet by mouth once daily Amiodarone 200 mg tablet Discontinued 200 mg PO DAILY 17 05November 05, 2024 12:00am February 10, 2025 9:54am Start: 10-17-2023 End: 11-16-2023 take 1 tablet by mouth once daily Amiodarone 200 mg Tablet Discontinued 200 mg PO DAILY October 17, 2023 12:00am November 16, 2023 10:17am Start: 10-05-2023 End: 10-04-2024 take 1 tablet by mouth once daily Amiodarone 400 mg tablet Discontinued 400 mg PO DAILY October 12, 2023 12:00am October 17, 2023 9:11pm Start: 09-28-2023 End: 10-05-2023 take 400 mg by mouth twice daily, then take 400 mg by mouth once daily 400 mg, Oral, 2 times daily, First dose (after last modification) on Sun09/28/23 at 1200, Until discharge home, then 400 mg daily x 1 month. amLODIPine 2.5 mg oral tablet (20 sources) Dihydropyridine Calcium Channel Melissa Start: 05-14-2023 End: 10-05-2023 take 2 tablets by mouth once daily Amlodipine 2.5 mg tablet Discontinued 2.5 mg PO DAILY May 14, 2023 3:04pm October 05, 2023 7:37pm Increase to 5 mg if persistently systolic blood pressure more than 140 mmHg Start: 05-14-2023 End: 10-05-2023 take 5 mg by mouth once daily Amlodipine Discontinued 2.5 MG PO DAILY May 14, 2023 3:04pm October 05, 2023 7:37pm Increase to 5 mg if persistently systolic blood pressure more than 140 mmHg Start: 04-29-2023 End: 05-14-2023 take 1 tablet by mouth once daily Amlodipine 5 mg tablet Discontinued 2.5 mg PO DAILY April 29, 2023 1:00am May 14, 2023 3:05pm Increase to 5 mg if persistently systolic blood pressure more than 140 mmHg Start: 04-29-2023 End: 05-14-2023 take 5 mg by mouth once daily Amlodipine Discontinued 2.5 MG PO DAILY April 29, 2023 1:00am May 14, 2023 3:05pm Increase to 5 mg if persistently systolic blood pressure more than 140 mmHg apixaban 5 mg oral tablet (20 sources) Factor Xa Inhibitor Start: 09-27-2023 End: 11-17-2024 take 1 tablet by mouth twice daily Apixaban (Eliquis) 5 mg Tablet Discontinued 5 mg PO TWICE A DAY 60 30 October 17, 2023 12:00am November 17, 2024 12:43pm aspirin 81 mg delayed release oral tablet (18 sources) Platelet Aggregation Inhibitor, Nonsteroidal Anti-inflammatory Drug Start: 09-19-2023 End: 10-18-2023 take 1 tablet by mouth twice daily at mealtime aspirin Dose : 81 mg = 1 tab(s), Oral, BIDM, Take 81 mg aspirin twice daily with food for 4 weeks postoperatively for DVT prophylaxis., 0 Refill(s) Start Date: 09/19/23 Stop Date: 10/18/23 Status: Ordered Start: 04-29-2023 End: 10-05-2023 take 1 tablet by mouth at breakfast Aspirin 81 mg Tablet,Delayed Release (Dr/Ec) Discontinued 81 mg PO WITH BREAKFAST 14 09April 29, 2023 1:00am October 05, 2023 7:37pm atorvastatin 40 mg oral tablet (20 sources) HMG-CoA Reductase Inhibitor Start: 04-29-2023 End: 02-10-2025 take 1 tablet by mouth at bedtime Atorvastatin 40 mg Tablet Discontinued 40 mg PO AT BEDTIME 0 October 17, 2023 12:00am February 10, 2025 12:46pm calcium carbonate 1250 mg / cholecalciferol 200 unt oral tablet (5 sources) Vitamin D Start: 10-03-2023 End: 10-05-2023 take 1 tablet by mouth once daily 1 tablet, Oral, Daily, First dose on Sun10/03/23 at 1445 Calcium Carbonat e-Vitamin D 500-5 MG-MCG tablet Take by mouth. 0 Active calcium chloride 0.0014 meq/ml / potassium chloride 0.004 meq/ml / sodium chloride 0.103 meq/ml / sodium lactate 0.028 meq/ml injectable solution (2 sources) Start: 09-26-2023 End: 09-26-2023 take 125 mL intravenously every hour 125 mL/hr, IntraVENous, Continuous, Starting on Sun09/26/23 at 1215, Recovery (only) 100 ml calcium gluconate 20 mg/ml injection (4 sources) Start: 09-27-2023 End: 09-28-2023 2,000 mg, IntraVENous, at 50 mL/hr, Administer over 2 Hours, Once, On Sun09/28/23 at 0900, For 1 dose, premix bag cephalexin 500 mg oral capsule (11 sources) Cephalosporin Antibacterial Start: 04-01-2023 End: 04-27-2023 take 1 capsule by mouth every six hours Cephalexin 500 mg capsule Discontinued 500 mg PO EVERY 6 HOURS 40 April 01, 2023 12:00am April 27, 2023 3:47pm clopidogrel 75 mg oral tablet (20 sources) P2Y12 Platelet Inhibitor Start: 10-01-2023 End: 10-01-2023 take 600 mg by mouth once 600 mg, Oral, Once, On Sun10/01/23 at 1900, For 1 dose Start: 10-01-2023 End: 10-01-2023 take 600 mg by mouth once 600 mg, Oral, Once, On Sun at 1900, For 1 dose Start: 04-29-2023 End: 11-17-2024 take 1 tablet by mouth once daily Clopidogrel 75 mg Tablet Discontinued 75 mg PO DAILY 0 October 17, 2023 12:00am November 17, 2024 12:43pm dapagliflozin 10 mg oral tablet (18 sources) Sodium-Glucose Cotransporter 2 Inhibitor Start: 10-04-2023 End: 11-17-2024 take 1 tablet by mouth once daily Dapagliflozin Propanediol (Farxiga) 10 mg tablet Discontinued 10 mg PO DAILY 30 October 19, 2023 12:00am November 17, 2024 12:43pm docusate sodium 50 mg / sennosides, nursing home 8.6 mg oral tablet (9 sources) Start: 04-29-2023 End: 05-14-2023 Sennosides-Docusat e Sodium (Stool Softener-Stimulant Laxat) 8.6-50 mg Tablet Discontinued 2 {tbl} PO TWICE A DAY as needed for Constipation 0 0 April 29, 2023 1:00am May 14, 2023 2:31pm otc doxepin hydrochloride 10 mg oral capsule (6 sources) Tricyclic Antidepressant Start: 10-12-2023 End: 10-17-2023 take 1 capsule by mouth at bedtime Doxepin 10 mg capsule Discontinued 10 mg PO AT BEDTIME October 12, 2023 12:00am October 17, 2023 9:11pm empagliflozin 25 mg oral tablet (12 sources) Sodium-Glucose Cotransporter 2 Inhibitor Start: 10-12-2023 End: 12-25-2023 take 1 tablet by mouth once daily Empagliflozin (Jardiance) 25 mg Tablet Discontinued 25 mg PO DAILY 30 30 0 October 17, 2023 12:00am December 25, 2023 10:14am folic acid 1 mg oral tablet (4 sources) Start: 09-21-2023 End: 10-12-2023 folic acid 1 mg oral tablet Dose : 1 mg = 1 tab(s), Oral, qDay, 0 Refill(s) Start Date: 09/21/23 Stop Date: 10/12/23 Status: Ordered furosemide 40 mg oral tablet (20 sources) Loop Diuretic Start: 11-13-2023 furosemide (LASIX) 40 mg tablet 20 mg. 11/13/2023 Active Start: 10-12-2023 End: 05-06-2024 Furosemide 40 mg tablet Disc ontinued 40 mg PO .COMPLEX 30 0 November 19, 2023 4:15pm May 06, 2024 1:05pm 40 mg orally Daily X 3 days, then reduce to 20 mg a day; Start: 09-29-2023 End: 09-29-2023 40 mg, IntraVENous, Once, On 09/29/23 at 1415, For 1 dose Start: 09-29-2023 End: 09-29-2023 40 mg, IntraVENous, Once, On 09/29/23 at 1415, For 1 dose Start: 09-27-2023 End: 09-28-2023 40 mg, IntraVENous, Administ er over 2 Minutes, Daily, First dose on Samara 09/27/23 at 0900, On hold since Sun09/28/2023 at 0920 until manually unheld Start: 09-26-2023 End: 09-26-2023 80 mg, IntraVENous, Once, On Sun09/26/23 at 1800, For 1 dose Start: 09-26-2023 End: 09-27-2023 40 mg, IntraVENous, Administ er over 2 Minutes, Once, On Samara 09/27/23 at 1015, For 1 dose Start: 05-14-2023 End: 06-19-2023 take 1 tablet by mouth once daily Furosemide (Lasix) 40 mg tablet Discontinued 40 mg PO DAILY 5 May 14, 2023 1:00am June 19, 2023 11:34am 250 ml heparin sodium, porcine 100 unt/ml injection (6 sources) Unfractionated Heparin, Anti-coagulant Start: 09-25-2023 End: 09-25-2023 4,000 Units, IntraVENous, Once, On Sun09/25/23 at 1445, For 1 dose, Initial one time bolus Start: 09-25-2023 End: 09-27-2023 5-30 Units/kg/hr 93.8 kg (4. 69-28.14 mL/hr, rounded to 4.7-28.1 mL/hr), IntraVENous, Continuous, Starting on Sun09/25/23 at 1445, LOW Dose Heparin Weight Based Dosing (CAD/STEMI/NSTEMI/AFIB/ECMO) >>>>Initial dose: 10 units/kg/hr 95.9 Hold heparin for 60 min Decrease infusion by 2 units/kg/hr - notify prescriber; Check aPTT: 6 hours after initiation and 6 hours after every dose change - every 12 hrs x 1 day after 2 consecutive therapeutic aPTT - daily after every 12 hrs x 1 day is complete. Start: 09-25-2023 End: 09-27-2023 2,000 Units, IntraVENous, As needed, heparin dosing algorithm, Starting on Sun09/25/23 at 1435, Half dose re-bolus based on pharmacy algorithm hydroCHLOROthiazide 25 mg / triamterene 37.5 mg oral tablet (5 sources) Potassium-sparing Diuretic, Thiazide Diuretic Start: 09-21-2020 End: 08-11-2022 take 1 tablet by mouth once daily triamterene-hydroCHLOROthiazide (MAXZIDE-25MG) 37.5-25 mg per tablet Take 1 tablet by mouth once daily. 30 tablet 5 09/21/2020 08/11/2022 Discontinued Comment on above: Take 1 tablet by kiersten th once daily. hydrOXYzine pamoate 25 mg oral capsule (6 sources) Antihistamine Start: 10-02-2023 End: 10-02-2023 take 25 mg by mouth once 25 mg, Oral, Once, On Sun10/02/23 at 2315, For 1 dose Start: 09-28-2023 End: 09-28-2023 take 25 mg by mouth once 25 mg, Oral, Once, On 06/10 at 2230, For 1 dose Start: 09-26-2023 End: 09-26-2023 take 25 mg by mouth once 25 mg, Oral, Once, On 04/10 at 0000, For 1 dose lidocaine 0.05 mg/mg medicated patch (2 sources) Antiarrhythmic, Amide Local Anesthetic Start: 05-31-2023 lidocaine 5% topical patch Apply 1 patch(es), q12h, 0 Refill(s), 91.5 Start Date: 05/31/23 Status: Ordered Start: 05-18-2023 lidocaine 5% t opical patch Apply 1 patch(es), Topical, qDay, remove patches after 12 hours, # 30 patch(es), 1 Refill(s), Pharmacy: [facility]acy #[id number], Osteoarthritis of left hip, 170.2, cm, 05/18/23 12:59:00 EST, Height, 91.5, kg, 05/18/23 12:47:00 EST, Dosing Weight Start Date: 05/18/23 Status: Ordered 1 ml naloxone hydrochloride 0.4 mg/ml injection (2 sources) Opioid Antagonist Start: 09-26-2023 End: 10-05-2023 0.4 mg, IntraVENous, Every 5 min PRN, opioid reversal, respiratory depression, Starting on Sun09/26/23 at 1550, +++ For RR <10, pinpoint pupils, over sedation for opioid reversal - MUST notify patient consumer marketer provider immediately after first dose, may give IM or SQ if no IV access +++ nitroglycerin 0.02 mg/mg topical ointment (2 sources) Nitrate Vasodilator Start: 09-25-2023 End: 09-27-2023 0.5 inch, TransDERmal, Administer over 6 Hours, Every 6 hours during day, First dose on Sun09/25/23 at 1500 nystatin 100 unt/mg topical powder (6 sources) Polyene Antifungal Start: 10-12-2023 End: 10-17-2023 Nystatin 100,000 unit/gram powder Discontinued 1 NMA TOPICAL TWICE A DAY October 12, 2023 12:00am October 17, 2023 9:11pm Start: 10-12-2023 End: 10-17-2023 Nystatin Discontinued 1 APPL IC TOPICAL TWICE A DAY October 12, 2023 12:00am October 17, 2023 9:11pm pantoprazole 40 mg delayed release oral tablet (20 sources) Proton Pump Inhibitor Start: 09-26-2023 End: 11-17-2024 take 1 tablet by mouth once daily Pantoprazole 40 mg Tablet,Delayed Release (Dr/Ec) Discontinued 40 mg PO DAILY 30 30 0 October 17, 2023 12:00am November 17, 2024 12:43pm polysaccharide iron complex 150 mg oral capsule (20 sources) Start: 10-12-2023 End: 02-10-2025 Polysaccharide Iron Complex (Ferrex 150) 150 mg iron capsule Discontinued 150 mg PO DAILY 14 0 February 09, 2025 2:53pm February 10, 2025 12:46pm fill as courtesy for Dr. Palmer microencapsulated potassium chloride 10 meq extended release oral tablet (4 sources) Start: 09-28-2023 End: 09-28-2023 40 mEq, Oral, Once, On Sun09/28/23 at 1700, For 1 dose, Do not crush or chew. promethazine hydrochloride 25 mg oral tablet (2 sources) Phenothiazine Start: 09-29-2023 End: 10-05-2023 take 12.5 mg by mouth every six hours as needed for nausea and vomiting 12.5 mg, Oral, Every 6 hours PRN, nausea, vomiting, Starting on Sun09/29/23 at 1530 simvastatin 10 mg oral tablet (20 sources) HMG-CoA Reductase Inhibitor Start: 07-06-2022 End: 04-29-2023 take 1 tablet by mouth at bedtime Simvastatin 10 mg tablet Discontinued 10 mg PO AT BEDTIME April 27, 2023 1:00am April 29, 2023 11:54am cholesterol Start: 04-18-2019 End: 06-15-2022 take 1 tablet by mouth once daily at bedtime simvastatin (ZOCOR) 10 mg tablet TAKE 1 TABLET BY MOUTH EVERYDAY AT BEDTIME 90 tablet 1 06/17/2022 Active Comment on above: TAKE 1 TABLET BY KIERSTEN TH EVERYDAY AT BEDTIME TAKE 1 TABLET AT BED TIME 5 ml sodium chloride 9 mg/ml injection (2 sources) Start: End: take 5-40 mL intravenously every twelve hours 5-40 mL, IntraVENous, Every 12 hours, First dose on Sun09/25/23 at 1400, Preprocedure, For Line Patency: Peripheral IV = 5 mL; Midline or Central Line = 10 mL/lumen. If following IV push medication, administer flush at same rate as the IV push. Flush volume is determined by type of infusion therapy being given. For non-viscous solutions use: Peripheral IV = 5 mL Midline or Central Line = 10 mL/lumen For viscous solutions (i.e. blood components, parenteral nutrition, contrast media, or after obtaining blood sample) use: Peripheral IV = 10 mL Midline or Central Line = 20 mL/lumen spironolactone 25 mg oral tablet (20 sources) Aldosterone Antagonist Start: End: Spironolactone 25 mg Tablet Discontinued 12.5 mg PO DAILY 15 30 0 October 17, 2023 12:00am November 17, 2024 12:43pm Start: 10-06-2023 spironolactone 25 mg oral tablet 0 Refill(s) Start Date: 05/01/24 Status: Ordered Start: 10-06-2023 End: 11-07-2024 take 0.5 tablet by mouth once daily, then take 0.5 tablet by mouth once daily spironolactone 25 mg oral tablet 0.5 tab, Oral, qDay, Take 1/2 tab (12.5 mg) daily, # 45 tab(s), 3 Refill(s), Pharmacy: [facility], 170.2, cm, 10/25/23 13:04:00 EDT, Height, kg, 10/25/23 13:04:00 EDT, Dosing Weight Start Date: 11/13/23 Stop Date: 11/07/24 Status: Ordered Start: 09-27-2023 End: 10-05-2024 take 12.5 mg by mouth once daily Spironolactone Active 12.5 MG PO DAILY October 17, 2023 12:00am tamsulosin hydrochloride 0.4 mg oral capsule (20 sources) alpha-Adrenergic Melissa Start: 05-01-2024 End: 04-26-2025 take 1 capsule by mouth twice daily Tamsulosin 0.4 mg Capsule Discontinued 0.4 mg PO TWICE A DAY June 23, 2024 1:00am February 10, 2025 12:46pm Start: 11-13-2023 tamsulosin 0.4 mg oral capsule Dose : 0.4 mg = 1 cap(s), Oral, qDay, # 30 cap(s), 0 Refill(s), Pharmacy: [facility]/pharmacy #[id number], 170.2, cm, 10/25/23 13:04:00 EDT, Height, kg, 10/25/23 13:04:00 EDT, Dosing Weight Start Date: 11/13/23 Status: Ordered Start: 10-12-2023 End: 06-23-2024 take 1 capsule by mouth once daily Tamsulosin 0.4 mg Capsule Discontinued 0.4 mg PO DAILY@1730 30 30 0 October 17, 2023 12:00am June 23, 2024 2:35pm take 2 capsules by m outh once daily tamsulosin (FLOMAX) 0.4 mg TAKE 2 CAPSULES BY MOUTH EVERY DAY FOR 90 DAYS Active traZODone hydrochloride 50 mg oral tablet (2 sources) Serotonin Reuptake Inhibitor Start: 09-30-2023 End: 09-30-2023 take 25 mg by mouth once 25 mg, Oral, Once, On 09/30/23 at 0045, For 1 dose valsartan 40 mg oral tablet (2 sources) Angiotensin 2 Receptor Melissa Start: 09-27-2023 End: 10-03-2023 40 mg, Oral, Daily, First dose on Sun09/27/23 at 0930, Hold SBP < 100, , On hold since [facility] 09/27/2023 at 1538 until manually unheld (8 sources) Start: 09-30-2023 End: 10-04-2023 75 mg, Oral, Nightly, First dose (after last modification) on Sun09/30/23 at 2100, Hold SBP < 100,HR < 60 Do not crush or chew. Start: 09-30-2023 End: 09-30-2023 0-10 mL, IntraVENous, IMG on ce PRN, other, Suboptimal echo image, Starting on Sun09/30/23 at 1301, For 1 dose, CV Procedural Medications, Administer via slow IVP for suboptimal echocardiogram enhancement. May administer as divided doses to reach optimal image enhancement Start: 09-26-2023 End: 09-30-2023 1,000 mg, IntraVENous, at 10 0 mL/hr, Administer over 30 Minutes, Every 24 hours, First dose on Sun09/26/23 at 0000, For 5 doses, Mini-Bag Plus bag, Suspected Indication (Select all that apply): Urinary Tract Infection Start: 09-25-2023 End: 10-05-2023 take 650 mg by mouth every six hours as needed for pain and fever [Order 1 Start] Name: acetaminophen (Tylenol) tablet 650 mg Signed Summary: 650 mg, Oral, Every 6 hours PRN, mild pain (1-3), fever, For temp greater than 100.4 F (38 C), Starting on Sun09/25/23 at 1342, Maximum dose of acetaminophen is 4000 mg from all sources in 24 hours. [Order 1 End] [Order 2 Start] Name: acetaminophen (Tylenol) suppository 650 mg Signed Summary: 650 mg, Rectal, Every 6 hours PRN, mild pain (1-3), fever, For temp greater than 100.4 F (38 C), Starting on Sun09/25/23 at 1342, Administer if oral route cannot be used. Maximum dose of acetaminophen is 4000 mg from all sources in 24 hours. [Order 2 End] Problems Active Problems Problem Classification Problem Date Documented Da te Episodic/Chronic Acute and unspecified renal failure (1 source) Acute renal failure syndrome; Translations: [Acute kidney failure, unspecified] Onset: 4 Episodic Acute bronchitis (1 source) Acute bronchitis, unspecified; Translations: [Acute bronchitis, unspecified organism] Onset: 5 Episodic Acute cerebrovascular disease (20 sources) Ischemic stroke; Translations: [Cerebral infarction, unspecified] 04-27-2023 Chronic Acute myocardial infarction (20 sources) Myocardial infarction; Translations: [Non-ST elevation (NSTEMI) myocardial infarction] Onset: 4 09-23-2023 Chronic Administrative/social admission (4 sources) First encounter by subject; Translations: [Persons encountering health services in other specified circumstances] Onset: 5 02-10-2025 Episodic Cardiac dysrhythmias (20 sources) Multiple premature ventricular complexes; Translations: [Ventricular premature depolarization] Onset: 4 04-27-2023 Chronic Comment on above: The patient has a hi story of paroxysmal atrial fibrillation, managed with a hybrid rate and rhythm control strategy. He is at a high risk for thromboembolic events, with a [id number] score of 5 (C=1 for CHF, H=1 for Hypertension, A2=2 for age >75, V=1 for vascular disease), which confers a significant annual stroke risk. Long-term oral anticoagulation is definitively indicated.His current regimen of amiodarone for rhythm control and metoprolol for rate control is appropriate, especially given his structural heart disease. The planned ICD will provide enhanced monitoring for atrial fibrillation burden. Cardiac dysrhythmias (20 sources) ECG: sinus tachycardia; Translations: [Tachycardia, unspecified] Onset: 4 04-27-2023 Episodic Comment on above: The patient has niko re and symptomatic sinus bradycardia, confirmed on Holter monitoring which revealed an average heart rate of 37 bpm, minimum rate of 21 bpm, and periods of junctional escape rhythm. This profound bradycardia is likely multifactorial, secondary to intrinsic sinus node dysfunction from his underlying ischemic disease and pharmacologically exacerbated by necessary negative chronotropes (metoprolol, amiodarone).The bradycardia significantly limits his cardiac output, particularly in the context of his severely reduced LVEF, and is a clear indication for permanent pacing. This condition also limits the ability to uptitrate his life-prolonging beta-melissa therapy. Chronic kidney disease (3 sources) Chronic kidney disease stage 3; Translations: [CKD (chronic kidney disease) stage 3, GFR 30-59 ml/min] 02-10-2025 Chronic Chronic kidney disease (2 sources) Chronic kidney disease; Translations: [Chronic kidney disease, stage 3 unspecified] Onset: 5 Coagulation and hemorrhagic disorders (3 sources) Thrombocytopenic disorder 09-15-2022 Chronic Congestive heart failure; nonhypertensive (20 sources) Diastolic dysfunction; Translations: [Heart failure with reduced ejection fraction] Onset: 3 04-18-2019 Chronic Comment on above: This 79-year-old adan e has a severe ischemic cardiomyopathy, status post NSTEMI and extensive PCI in September 2023. His left ventricular systolic function remains severely depressed with an LVEF of 20-33% on recent imaging, despite guideline-directed medical therapy (GDMT), including a beta-melissa and SGLT2 inhibitor. His clinical presentation, including lower extremity edema noted on exam, is consistent with decompensated congestive heart failure secondary to his systolic dysfunction.The patient's persistently low LVEF (=35%) more than 90 days post-revascularization and on optimal medical therapy places him at significant risk for sudden cardiac (SCD) due to malignant ventricular arrhythmias. Per current ACC/AHA/HRS guidelines, an implantable cardioverter-defibrillator (ICD) is strongly indicated for primary prevention of SCD. A dual-chamber device is appropriate as his QRS is narrow, and therefore, cardiac resynchronization therapy is not indicated at this time. An extensive discussion was held with the patient and his daughter regarding the risks, benefits, and alternatives to ICD implantation.Shared decision making for ICD implantation with patient and his daughter. They are agreeable to proceed. Coronary atherosclerosis and other heart disease (20 sources) Coronary arteriosclerosis; Translations: [Atherosclerotic heart disease of [place] coronary artery without angina pectoris] Onset: 0 09-15-2019 Chronic Coronary atherosclerosis and other heart disease (20 sources) Stented coronary artery; Translations: [Presence of coronary angioplasty implant and graft] Onset: 4 09-28-2023 Episodic Comment on above: Ost LM-NORIS Xience 3. 25 x 33mm and Ost RCA- NORIS Xience 3.50 x 28 mm 09/26/23 Deficiency and other anemia (2 sources) Anemia; Translations: [Anemia, unspecified] Onset: 4 Episodic Deficiency and other anemia (7 sources) Chronic anemia; Translations: [Anemia, unspecified] 09-24-2023 Episodic Deficiency and other anemia (2 sources) Anemia, unspecified; Translations: [Anemia, unspecified] 09-25-2023 Episodic Deficiency and other anemia (2 sources) Iron deficiency anemia; Translations: [Iron deficiency anemia, unspecified] 02-10-2025 Episodic Deficiency and other anemia (1 source) Iron deficiency anemia, unspecified; Translations: [Iron deficiency anemia, unspecified] Onset: 5 Episodic Disorders of lipid metabolism (20 sources) Mixed hyperlipidemia; Translations: [Mixed hyperlipidemia] Onset: 1 04-20-2021 Chronic Esophageal disorders (3 sources) Gastroesophageal reflux disease; Translations: [Gastro-esophageal reflux disease without esophagitis] Onset: 5 02-10-2025 Chronic Essential hypertension (20 sources) Essential hypertension; Translations: [Essential (primary) hypertension] Onset: 1 04-20-2021 Chronic Genitourinary symptoms and ill-defined conditions (5 sources) Increased frequency of urination; Translations: [Urgent desire to urinate] Onset: 4 05-01-2024 Episodic Hyperplasia of prostate (20 sources) Benign prostatic hyperplasia; Translations: [Benign prostatic hypertrophy without outflow obstruction] Onset: 3 04-18-2019 Chronic Malaise and fatigue (8 sources) Asthenia; Translations: [Weakness] Onset: 4 Episodic Occlusion or stenosis of precerebral arteries (17 sources) Carotid artery stenosis; Translations: [Occlusion and stenosis of unspecified carotid artery] 05-14-2023 Chronic Osteoarthritis (10 sources) Osteoarthritis of left hip joint; Translations: [Unilateral primary osteoarthritis, left hip] Onset: 3 09-15-2022 Chronic Other aftercare (6 sources) Long-term current use of anticoagulant; Translations: [penitentiary (current) use of anticoagulants] 02-08-2024 Episodic Other aftercare (1 source) Other fdc (current) drug therapy; Translations: [Other fdc (current) drug therapy] Onset: 5 Episodic Other circulatory disease (10 sources) H/O: heart disorder; Translations: [Personal history of other diseases of the circulatory system] 04-27-2023 Episodic Other circulatory disease (10 sources) Elevated blood-pressure reading without diagnosis of hypertension; Translations: [Elevated blood-pressure reading, without diagnosis of hypertension] 04-27-2023 Episodic Other circulatory disease (3 sources) Elevated blood-pressure reading, without diagnosis of hypertension; Translations: [Elevated blood pressure reading without diagnosis of hypertension] 04-27-2023 Episodic Other circulatory disease (3 sources) Personal history of other diseases of the circulatory system; Translations: [Personal history of other diseases of circulatory system] 04-27-2023 Episodic Other circulatory disease (9 sources) History of cerebrovascular accident; Translations: [Personal history of transient ischemic attack (TIA), and cerebral infarction without residual deficits] 09-23-2023 Episodic Other circulatory disease (2 sources) Personal history of transient ischemic attack (TIA), and cerebral infarction without residual deficits; Translations: [Personal history of transient ischemic attack (TIA), and cerebral infarction without residual deficits] Onset: 5 09-25-2023 Episodic Other connective tissue disease (1 source) Hip joint prosthesis present; Translations: [Presence of left artificial hip joint] Onset: Chronic Other diseases of kidney and ureters (5 sources) Renal impairment; Translations: [Disorder of kidney and ureter, unspecified] 02-08-2024 Episodic Other ear and sense organ disorders (1 source) Bilateral hearing loss 01-29-2024 Chronic Other ear and sense organ disorders (2 sources) Impacted cerumen; Translations: [Impacted cerumen, unspecified ear] 02-10-2025 Episodic Other ear and sense organ disorders (1 source) Impacted cerumen, bilateral; Translations: [Impacted cerumen, bilateral] Onset: 5 Episodic Other endocrine disorders (9 sources) Male hypogonadism 04-18-2019 Chronic Other gastrointestinal disorders (9 sources) Acholic stool 04-18-2019 Episodic Other hematologic conditions (5 sources) History of anemia; Translations: [Personal history of diseases of the blood and blood-forming organs and certain disorders involving the immune mechanism] 05-05-2024 Episodic Other lower respiratory disease (13 sources) Dyspnea; Translations: [Shortness of breath] Onset: 2 01-23-2022 Episodic Other lower respiratory disease (9 sources) Dyspnea on exertion; Translations: [Other forms of dyspnea] 05-14-2023 Episodic Other lower respiratory disease (2 sources) Cough; Translations: [Subacute cough] 03-03-2025 Episodic Other lower respiratory disease (1 source) Wheezing; Translations: [Wheezing] Onset: 5 Episodic Other male genital disorders (9 sources) Impotence 04-18-2019 Chronic Other non-traumatic joint disorders (9 sources) Hip pain 08-25-2022 Episodic Other non-traumatic joint disorders (8 sources) Knee pain 09-15-2022 Episodic Other screening for suspected conditions (not mental disorders or infectious disease) (20 sources) High troponin I level; Translations: [Other specified abnormal findings of blood chemistry] Onset: 5 04-27-2023 Episodic Other skin disorders (2 sources) Scab of skin; Translations: [Changes in skin texture] 02-10-2025 Episodic Other skin disorders (1 source) Changes in skin texture; Translations: [Changes in skin texture] Onset: 5 Episodic Nessa-; endo-; and myocarditis; cardiomyopathy (except that caused by tuberculosis or sexually transmitted disease) (12 sources) Cardiomyopathy; Translations: [Cardiomyopathy, unspecified] Onset: 0 09-15-2019 Chronic Pleurisy; pneumothorax; pulmonary collapse (7 sources) Pleural effusion; Translations: [Pleural effusion, not elsewhere classified] 10-20-2023 Episodic Residual codes; unclassified (2 sources) Other specified postprocedural states; Translations: [History of cardiac cath] Onset: 0 Episodic Residual codes; unclassified (7 sources) Edema of left lower limb; Translations: [Localized edema] 09-23-2023 Episodic Residual codes; unclassified (2 sources) Localized edema; Translations: [Edema] 09-25-2023 Episodic Residual codes; unclassified (6 sources) Insomnia; Translations: [Insomnia, unspecified] 10-20-2023 Episodic Residual codes; unclassified (1 source) Insomnia, unspecified; Translations: [Insomnia, unspecified] 10-20-2023 Episodic Residual codes; unclassified (5 sources) Bilateral lower limb edema; Translations: [Localized edema] 05-05-2024 Episodic Residual codes; unclassified (2 sources) Medication refused; Translations: [Immunization not carried out because of patient refusal] 02-10-2025 Episodic Residual codes; unclassified (1 source) Immunization not carried out because of patient refusal; Translations: [Immunization not carried out because of patient refusal] Onset: 5 Episodic Respiratory failure; insufficiency; arrest (adult) (9 sources) Acute respiratory failure; Translations: [Acute respiratory failure with hypoxia] 09-24-2023 Episodic Screening and history of mental health and substance abuse codes (3 sources) Patient encounter status; Translations: [Encounter for screening for depression] Onset: 5 02-10-2025 Episodic Skin and subcutaneous tissue infections (11 sources) Cellulitis of right upper limb; Translations: [Cellulitis of right upper limb] 04-01-2023 Episodic Spondylosis; intervertebral disc disorders; other back problems (10 sources) Sciatica; Translations: [Sciatica, left side] Episodic Superficial injury; contusion (1 source) Injury of eye region; Translations: [Injury of conjunctiva and corneal abrasion without foreign body, unspecified eye, initial encounter] Onset: 3 Episodic Unclassified (5 sources) Patient encounter status 08-21-2023 Unclassified (2 sources) Other persistent atrial fibrillation; Translations: [Other persistent atrial fibrillation (HCC)] Onset: 4 Unclassified (1 source) Acute cough; Translations: [Acute cough] Onset: 5 Unclassified (1 source) Subacute cough; Translations: [Subacute cough] Onset: 5 Urinary tract infections (5 sources) Urinary tract infectious disease; Translations: [Urinary tract infection, site not specified] Onset: 3 05-31-2023 Episodic Past or Other Problems Problem Classification Problem Date Documented Date Episodic/Chronic Conditions associated with dizziness or vertigo (10 sources) Dizziness; Translations: [Dizziness and giddiness] Onset: 03-16-2022 Episodic Nonspecific chest pain (12 sources) Chest pain; Translations: [Chest pain, unspecified] Onset: 07-17-2024 05-14-2023 Episodic Other aftercare (1 source) long term (current) use of anticoagulants; Translations: [penitentiary (current) use of anticoagulants] Onset: 07-08-2024 Episodic Other lower respiratory disease (3 sources) Other forms of dyspnea; Translations: [Other respiratory abnormalities] Onset: 08-19-2024 05-14-2023 Episodic Other lower respiratory disease (1 source) Shortness of breath; Translations: [Shortness of breath] Onset: 06-02-2024 Episodic Pneumonia (except that caused by tuberculosis or sexually transmitted disease) (2 sources) Community acquired pneumonia; Translations: [Pneumonia, unspecified organism] Onset: 08-18-2024 08-18-2024 Episodic Poisoning by nonmedicinal substances (7 sources) Accidental poisoning by carbon monoxide; Translations: [Toxic effect of carbon monoxide from unspecified source, accidental (unintentional), initial encounter] Onset: 07-08-2024 07-03-2024 Episodic Residual codes; unclassified (20 sources) Past history of procedure; Translations: [Personal history of other medical treatment] Onset: 03-05-2014 09-15-2019 Episodic Residual codes; unclassified (12 sources) History of cardiac catheterization; Translations: [Other specified postprocedural states] Onset: 06-18-2013 09-16-2019 Episodic Residual codes; unclassified (12 sources) Non-smoker; Translations: [Other specified health status] Onset: 04-20-2021 04-20-2021 Episodic Residual codes; unclassified (2 sources) Personal history of other medical treatment; Translations: [History of echocardiography] Onset: 09-15-2019 Episodic Residual codes; unclassified (1 source) Other specified health status; Translations: [Non-smoker] Onset: 04-20-2021 Episodic Results Test Name Value Interpretation Reference Range Facility [facility] 04-27-2025 CNOV Office Visit ([facility] ) EBEN CRUZ ([id number]) 1945 M Date Time Provider Department 04/27/25 12:30 PM KIM PRATT [facility] During your visit today, we recorded the following information about you: Temperature Pulse Respiration Blood pressure 97.6 degrees 58/minute 16/minute 116/72 Weight 94 kg Kim Pratt, PAINT TECHNICIAN.AIRPLANE FIRST OFFICER 04/27/2025 2:12 PM Signed [facility] Treadwell P Deibel is a 80 year old male. Patient presents with: Cough: Cough, Sinus Drainage, x 3 weeks OTC meds help a little per patient Patient states he is not sure what is causing the excessive fluid in his throat Medication: REBECCA Soriano did notice from patients med list he is on 2 different blood thinners during triage Cough The patient is an 80-year-old male presenting with cough and throat discomfort. Cough and Throat Discomfort: - Persistent cough and sensation of stuff in the throat for several weeks. - Using cough drops with some relief. - Experiences wheezing in the throat, particularly in the morning. - Denies sinus pressure, pain, or ear pain. - Mild rhinorrhea; denies sore throat, nausea, emesis, or diarrhea. - No recent exposure to sick contacts. - Denies history of asthma, COPD, or diabetes. - Current medications include Plavix and Eliquis. Review of Systems Respiratory: Positive for cough. Constitutional: (-) fever Head: (-) sinus pressure, (-) sinus pain Ears/Nose/Mouth/Throat: (+) postnasal drainage, (+) runny nose, (-) ear pain, (-) sore throat Respiratory: (+) cough, (+) wheezing Gastrointestinal: (-) nausea, (-) vomiting, (-) diarrhea Objective BP 116/72 (BP Site: Left Arm, BP Position: Sitting, BP Cuff Size: Large Adult) Pulse (!) 58 Temp 36.4 ?C (97.6 ?F) (Temporal) Resp 16 Wt 94 kg (207 lb 3.2 oz) SpO2 97% BMI 30.60 kg/m? Physical Exam Vitals and nursing note reviewed. Constitutional: General: He is not in acute distress. HENT: Head: Normocephalic and atraumatic. Right Ear: Tympanic membrane and external ear normal. Left Ear: Tympanic membrane and external ear normal. Mouth/Throat: Lips: [place]. Mouth: Mucous membranes are moist. Pharynx: Posterior oropharyngeal erythema and postnasal drip present. Tonsils: 0 on the right. 0 on the left. Cardiovascular: Rate and Rhythm: Normal rate and regular rhythm. Heart sounds: Normal heart sounds. No murmur heard. No friction rub. No gallop. Pulmonary: Effort: Pulmonary effort is normal. No respiratory distress. Breath sounds: No stridor. Examination of the left-lower field reveals wheezing. Wheezing present. No rhonchi or rales. Lymphadenopathy: Head: Right side of head: No submental, submandibular, tonsillar, preauricular, posterior auricular or occipital adenopathy. Left side of head: No submental, submandibular, tonsillar, preauricular, posterior auricular or occipital adenopathy. Skin: General: Skin is warm and dry. Capillary Refill: Capillary refill takes less than 2 seconds. Neurological: Mental Status: He is alert and oriented to person, place, and time. Psychiatric: Behavior: Behavior is cooperative. 1. Acute bronchitis, unspecified organism (J20.9) 2. Wheezing (R06.2) 3. Acute cough (R05.1) - Persistent cough, postnasal drainage, and wheezing without fever or significant sinus pressure; exam notable for posterior pharyngeal drainage and wheezing. - Start azithromycin (Z-Arturo) as directed. take with food. - Start Prednisone. Take as directed - Start Tessalon Perles (benzonatate) TID PRN for cough. - Advised continuation of cough drops as needed. - Follow-up with PCP or return back to clinic if symptoms persist or worsen. and Recording using [employer] software for draft documentation of the visit was discussed with the patient/authorized agency sales representative; all questions welcomed and answered. Patient/authorized agency sales representative agreed to proceed Differential Diagnoses - Acute bronchitis, viral illness is more likely for the following reason(s): Exam, suggested by HANDP - Pneumonia is less likely for the following reason(s): Exam, HANDP not suggestive Disposition The patient was discharged. Procedures Allergies As of Date: 04/27/2025 Noted Allergy Reaction ENTRESTO (SACUBITRIL-VALSARTAN) 09/15/2019 3 - Cough Comments: Throat sensation, cough LANOLIN 09/25/2023 14 - Other: See Comments WOOL 08/18/2024 16 - Unknown SACUBITRIL 04/01/2023 3 - Cough VALSARTAN 04/01/2023 3 - Cough Date Reviewed: 04/27/2025 Reviewed by: Kim Pratt APRN.AIRPLANE FIRST OFFICER - Fully Assessed Reason for Visit: Cough [28] Cmt: Cough, Sinus Drainage, x 3 weeks OTC meds help a little per patient Patient states he is not sure what is causing the excessive fluid in his throat Medication [Other] Cmt: REBECCA -I did notice from patients med list he is on 2 different blood thinners during triage (more content not included)... Normal [facility] Cardiology Visit Reporton Cardiology Visit Report [facility] [address] [place] [address] OFFICE VISIT Date of Service: 02/27/25 MR#: [id number] Acct: [id number] Name: EBEN CRUZ Rep #: [id number] : 1945 Provider: Dr. Augusto crooks MD Age/Sex: 79/M [place] [facility] [place] Signed HPI HPI History of Present Illness Details: The patient presents for evaluation of ischemic cardiomyopathy and symptomatic bradycardia. The patient is an 79-year-old male with a history of ischemic cardiomyopathy, status post [id number] myocardial infarction (NSTEMI) in September 2023. His cardiac function has remained significantly reduced despite guideline-directed medical therapy. He is referred for discussion regarding his persistent low ejection fraction and significant bradycardia. The patient reports swelling in his ankles and feet. He notes that he did not experience any symptoms at the time of his myocardial infarction in 2023. Following his NSTEMI on September 18, 2023, which occurred after a planned elective total hip replacement, the patient underwent percutaneous coronary intervention with drug-eluting stent placement to the ostial right coronary artery, ostial left main, and proximal left anterior descending artery. His post-intervention course was complicated by paroxysmal atrial fibrillation. He is maintained on medical therapy including Eliquis, Plavix, atorvastatin, metoprolol succinate 25 mg daily, Farxiga, Lasix, and amiodarone 200 mg daily. He has a history of intolerance to Entresto due to cough. An echocardiogram on December 18, 2023, showed an ejection fraction (EF) of 40%. A repeat echocardiogram on August 08, 2024, demonstrated a decline in the ejection fraction to 20% with findings of mild left atrial dilatation and mild to moderate tricuspid regurgitation. A stress test performed on August 26, 2024, showed an EF of 33% with no evidence of ischemia. There was global hypokinesis and fixed defects noted in the anterior and apical lateral cedillo. A Holter monitor performed on October 06, 2024, revealed significant bradycardia, with an average heart rate of 37 bpm and a range of 21-82 bpm. The study showed periods of junctional rhythm and junctional bradycardia. There was no evidence of ventricular tachycardia, but a 10-beat run of accelerated idioventricular rhythm at 83 bpm was captured. Review of systems: CONSTITUTIONAL: Fatigue positive RESPIRATORY: Cough positive CARDIOVASCULAR: Chest pain negative, Edema positive MUSCULOSKELETAL: Joint swelling positive Physical examination: GENERAL APPEARANCE: Patient is an elderly male, alert and in no apparent distress. He is conversant and cooperative with the examination. LUNGS: Lungs are clear to auscultation bilaterally. CARDIAC: Auscultation reveals a regular rhythm. MUSCLES/EXTREMITIES: Bilateral lower extremity edema is present. NEUROLOGICAL: Patient is alert and oriented with clear and coherent speech. PSYCHIATRIC: Affect is appropriate to the situation with a calm mood. Intake Vital Signs 02/10/25 09:51 02/27/25 14:59 Height 5 ft 8 in 5 ft 8 in Weight: 201 lb 6 oz 202 lb BMI 30.6 30.7 BP 138/72 H 106/65 Blood Pressure Location Lt brachial Lt brachial Position Sitting Sitting Respiration 16 18 Pulse 51 L 49 L Pulse Source Monitor Monitor Temp 96.4 F L Pulse Oximetry (%) 100 Oxygen Delivery Method room air Intake Visit Reasons: Congestive heart failure Instructor Hairspring Required: No Accompanied by: Daughter Is patient in pain?: No Allergies sacubitril (From Entresto) Allergy (Mild, Verified 02/27/25 14:59) cough valsartan (From Entresto) Allergy (Mild, Verified 02/27/25 14:59) cough Medications ???Medication ???Instructions ???Recorded ???Confirmed ???Type ascorbic acid (vitamin C) 500 mg 500 mg PO DAILY 30 days #30 tabs 0 10/17/23 02/27/25 Rx tablet metoprolol succinate 25 mg 25 mg PO QHS #0 tabs 10/17/2302/16 Rx tablet,extended release 24 hr furosemide 40 mg tablet 40 mg PO QDAY #90 tabs 05/06/24 Rx apixaban 5 mg tablet (Eliquis) 5 mg PO BID #180 tabs 11/17/2406/11 Rx clopidogrel 75 mg tablet 75 mg PO DAILY #90 tabs 11/17/24 0 02/27/25 Rx dapagliflozin propanediol 10 mg 10 mg PO DAILY #90 tabs 11/17/24 0 02/27/25 Rx tablet (Farxiga) pantoprazole 40 mg tablet,delayed 40 mg PO DAILY #90 tabs 11/17/24 02/27/25 Rx release spironolactone 25 mg tablet 12.5 mg (1/2 x 25 mg) PO DAILY #45 11/17/24 02/27/25 Rx tabs atorvastatin 40 mg tablet 40 mg PO QHS #90 tabs 02/10/2506/11 Rx polysaccharide iron complex 150 mg 150 mg PO DAILY fill as courtesy 02/10/25 02/27/25 Rx iron capsule (Ferrex) for Dr. Palmer #90 caps tamsulosin 0.4 mg capsule 0.4 mg PO BID #180 caps 02/10/25 0 02/27/25 Rx Ejecti (more content not included)... Normal [facility] Internal Medicine Office Vis iton 02-09-2025 Internal Medicine Office Visit [facility] [address] [place] [address] [place] [address] OFFICE VISIT Date of Service: 02/10/25 MR#: [id number] Acct: [id number] Name: EBEN CRUZ Rep #: [id number] : 1945 Provider: Dr. Chelsea bryan MD Age/Sex: 79/M Location: [facility] [place] Status: Signed Intake Vital Signs 11/05/24 08:58 02/10/25 09:51 Height 5 ft 8 in 5 ft 8 in Weight: 201 lb 6 oz BMI 30.6 BP 138/72 H Blood Pressure Location Lt brachial Position Sitting Respiration 16 Pulse 51 L Pulse Source Monitor Temp 96.4 F L Temp Source Temporal Pulse Oximetry (%) 100 Oxygen Delivery Method room air Intake Visit Reasons: EST NEW PT - [facility]WK SENT Chief Complaint: establishing care Instructor Hairspring Required: No Accompanied by: Self Is patient in pain?: No Allergies sacubitril (From Entresto) Allergy (Mild, Verified 02/10/25 09:45) cough valsartan (From Entresto) Allergy (Mild, Verified 02/10/25 09:45) cough Medications ???Medication ???Instructions ???Recorded ???Confirmed ???Type ascorbic acid (vitamin C) 500 mg 500 mg PO DAILY 30 days #30 tabs 0 10/17/23 11/05/24 Rx tablet metoprolol succinate 25 mg 25 mg PO QHS #0 tabs 10/17/2310/17 Rx tablet,extended release 24 hr furosemide 40 mg tablet 40 mg PO QDAY #90 tabs 05/06/24 Rx apixaban 5 mg tablet (Eliquis) 5 mg PO BID #180 tabs 11/17/24 Rx clopidogrel 75 mg tablet 75 mg PO DAILY #90 tabs 11/17/24 Rx dapagliflozin propanediol 10 mg 10 mg PO DAILY #90 tabs 11/17/24 Rx tablet (Farxiga) pantoprazole 40 mg tablet,delayed 40 mg PO DAILY #90 tabs 11/17/24 Rx release spironolactone 25 mg tablet 12.5 mg (1/2 x 25 mg) PO DAILY #45 11/17/24 Rx tabs atorvastatin 40 mg tablet 40 mg PO QHS #90 tabs 02/10/25 Rx polysaccharide iron complex 150 mg 150 mg PO DAILY fill as courtesy 02/10/25 02/10/25 Rx iron capsule (Ferrex) for Dr. Palmer #90 caps tamsulosin 0.4 mg capsule 0.4 mg PO BID #180 caps 02/10/25 0 02/10/25 Rx Have you fallen in the past year?: No Nurse's Note: establishing care [facility] Medical History (Updated 02/10/25 @ 12:[address] Chelsea Singh MD) Atrial fibrillation Bradycardia GERD (gastroesophageal reflux disease) Chronic anemia Valvular heart disease Hyperlipidemia CKD (chronic kidney disease), stage III PAF (paroxysmal atrial fibrillation) History of CVA (cerebrovascular accident) Dyslipidemia CAD (coronary artery disease) Arthritis Hypertension Surgical History (Updated 02/10/25 @ 10:[address] Chelsea Singh MD) H/O hernia repair History of left shoulder replacement Hx of cataract extraction History of total right hip arthroplasty Stented coronary artery (09/26/23) Hx of cardiac catheterization (09/26/23) History of total left hip arthroplasty Family History (Updated 02/10/25 @ 10:[address] Chelsea Singh MD) Mother Diabetes Father CVA (cerebral vascular accident) Brother Alcoholism Sister Breast cancer Social History (Updated 02/10/25 @ 10:[address] 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 1. Little interest or pleasure in doing things: not at all 2. Feeling down, depressed, or hopeless: not at all 3. Trouble falling or staying asleep, or sleeping too much: nearly every day 4. Feeling tired or having little energy: not at all 5. Poor appetite or overeating: not at all 6. Feeling bad about yourself - or that you are a failure or have let yourself and your family down: not at all 7. Trouble concentrating on things, such as reading the newspaper or watching television: not at all 8. Moving or speaking so slowly that other people could have noticed? - Or the opposite - being so fidgety or restless that you have been moving around a lot more than usual: not at all 9. Thoughts that you would be better off or of hurting yourself in some way: not at all Total score: 3 If you checked off any problems, how difficult have these problems made it for you to do your work, take care of things at home, or get along with other people?: not difficult at all Source: Developed by Drs. Delmis Morrow, Brenda Wolfe, Moisés Schofield and colleagues, with (more content not included)... Normal [facility] Cardiology Visit Reporton Cardiology Visit Report [facility] [address] [place], [place] [address] OFFICE VISIT Date of Service: 11/05/24 MR#: [id number] Acct: [id number] Name: EBEN CRUZ Rep #: [id number] : 1945 Provider: LUIZ hernandez Age/Sex: 79/M Location: [facility] Status: Signed HPI HPI History of Present Illness Details: Mr. Eben Cruz is an 79-year-old male who presents here for a cardiovascular follow-up visit. He was a direct transfer from [facility] for an NSTEMI on 09/23/2023. He originally presented to [facility] on 09/18/2023 for a planned elective total hip replacement with Dr. Schreiber. The procedure was noted to be fairly complicated and required wound VAC placement. Skilled rehab was recommended for discharge and the patient was in the process of transitioning to the [facility] TCU on 09/22/2023 however on the morning of 09/23/2023 he became acutely short of breath, stat labs were ordered and he was found to have a markedly elevated D-dimer at 2557 and a troponin of 6365. EKG at that time showed sinus tachycardia with ST segment depressions and no previous for comparison. CTA of the chest was negative for PE and showed only small bilateral pleural effusions. Given his troponin elevation and the concern for an NSTEMI he was transferred here for further management. He does follow with cardiology as an outpatient and had a recent stress test on 06/21/2023 that was negative for any inducible ischemia. Upon arrival cardiology was consulted and plan was for catheterization which was done today on 09/24/2023 and noted subtotal heavy calcified proximal left circumflex that was unable to be crossed with a wire, 50% distal LMCA, 50% calcified ostial LAD, 70% calcified ostial D1, and 80% heavily calcified ostial and proximal RCA. Unsuccessful PCI of the subtotal heavily calcified proximal left circumflex was attempted and medical therapy was recommended however I did discuss the case with Dr. Jackman and he felt that transfer to tertiary center may be required and would like to discuss it with tertiary care canter. Shortly after he returned from his cardiac catheterization he was noted to be hypoxic with oxygen saturations at 79% on room air and appeared somewhat devlin. He was placed on a nonrebreather with improvement in his oxygen saturations and cardiology was called to the bedside. A stat echocardiogram was obtained and found to show an EF of 25% with normal LV size, lateral wall in particular appeared to be severely hypokinetic with mild to moderate mitral valve insufficiency. Dr. Jackman was able to discuss the case with Dr. Nichole at [facility] who accepted for transfer for complex PCI. Heart catheterization on 09/26/2023 demonstrated severe calcific left main, ostial 50%, distal 80% stenosis. Severe calcified proximal LAD, 80% stenosis. Small D1 with proximal 70% lesion. Ostial circumflex totally occluded heavily calcification with no collaterals, severe calcified ostial RCA, 90% lesion, mid 30% and distal 50% RCA lesion. Patient did undergo IVUS and lithotripsy with a drug-eluting stent of his ostial RCA, left main and ostial and proximal LAD. He did have episodes of paroxysmal atrial fibrillation in which she did need to undergo a cardioversion. His echocardiogram from 12/18/2023 demonstrated an improved ejection fraction of 40%. He was recently admitted and evaluated [facility] for carbon monoxide poisoning. Echocardiogram showed an ejection fraction of 20%. Twelve-lead ECG on 06/23/2024 showed sinus tachycardia and frequent PVCs. His elevated troponin was thought to be type II event due to carbon oxide poisoning. Upon discharge, is recommend to repeat echocardiogram to evaluate LV function. He underwent repeat echocardiogram in July 2024 that showed ejection fraction 20%. He had stress test in August 2024 that was negative for ischemia and showed frequent PVC. He denies chest, arm, jaw, or neck discomfort. He denies palpitations. He states occasional, mild bilateral lower extremity edema. He denies claudication. He states shortness of breath with activity. He notes this walking long distances. He denies shortness of breath at rest, orthopnea, or PND. He denies significant, sudden weight gain. He states dizziness. He denies lightheadedness, near-syncope, or syncope. He denies blood in urine, blood in stool, or epistaxis. He denies fever with chills. He denies myalgia. He acknowledges fatigue. His exercise level has remained stable. Intake Vital Signs 08/18/24 10:11 11/05/24 08:51 11/05/24 08:58 Height 5 ft 8 in 5 ft 8 in 5 ft 8 in Weight: 197 lb BMI 29.9 BP 114/68 Blood Pressure Location Lt brachial Position Sitting Respiration 16 Pulse 40 L Pulse Source NIBP Pulse Oximetry (%) 93 Oxygen Delivery Method room air Intake Visit R (more content not included)... Normal [facility] Cardiovascular stress test r eportOrdered By: Megan Chau on 08-26-2024 Study report [facility] [address] [place] [address] MR#: [id number] Acct: [id number] Name: EBEN CRUZ Rep #: [id number] : 1945 79 From: Megan palencia MD Primary Care: Care Physician,No Primary Status: REG CLI Referring Dr: Vidal Banda RESIDENTIAL PROGRAM COORDINATOR RESIDENTIAL PROGRAM COORDINATOR-C Sex: M C Stress Test Report Date: 08/26/2024 Procedure: Pharmacologic stress nuclear imaging study Indications: CAD, reduced EF Consent: Per the patient Procedure: The patient underwent pharmacologic (Regadenoson) evaluation with a peak heart rate of 103 beats per minute (74%predicted maximal heart rate) and a peak blood pressure of 110/60 mmHg. The baseline ECG demonstrated normal sinus rhythm, frequent PVCs. EKG during lexiscan infusion revealed no significant ischemic changes. EKG post infusion revealed no significant ischemic changes [There was no complaint of chest discomfort during pharmacologic infusion or recovery]. The examination was discontinued secondary to completion of protocol. Impression: 1. Lexiscan stress test test is negative for Lexiscan infusion induced EKG changes of ischemia. 2. Lexiscan stress test test is negative for Lexiscan infusion induced chest pain. 3. Results of the nuclear portion of the test is as below Myocardial perfusion imaging study: Technique: The patient was injected with 11.8 millicuries of technetium 99m Cardiolite and subsequently rest SPECT Cardiolite nuclear imaging was obtained in the horizontal long, vertical long, and short axis views. The patient underwent pharmacologic [Regadenoson 0.4mg] evaluation. Please see above for details. Thepatient was injected with [] millicuries of technetium 99m Cardiolite and subsequently stress SPECT Cardiolite nuclear imaging was obtained in the horizontal long, vertical long, and short axis views. A gated Cardiolite study at peak stress was obtained. Interpretation: Rest and stress SPECT Cardiolite nuclear imaging status post realignment, normalization, and attenuation correction demonstrate fixed defects involving the anterior wall, apex and lateral wall suggestive of prior infarction. There is no evidence of significant ischemia. Gated images reveal global hypokinesis. The reported LVEF is 33%. Impression: 1. There is no evidence of significant ischemia. 2. Estimated ejection fraction is 33%. This note was generated with Touchstormation software. It may contain incorrect words, spelling, and punctuation that were not noted in checking the note before signing. 08/26/246 Date _ Megan Chau MD CC: LUIZ Banda; No Primary Care Physician ~ Date Dictated: 08/26/241332 Date Transcribed: 08/26/241332 Jump Iron Machine Presser: NN Signed [facility] Work Phone: Stress Reporton 08-26-2024 Stress Report [facility] [address] [place] [address] MR#: [id number] Acct: [id number] Name: EBEN CRUZ Rep #: [id number] : 1945 79 From: Megan Chau MD Primary Care: Care Physician,No Primary Status: REG CLI Referring Dr: Vidal Banda NP Sex: M C Stress Test Report Date: 08/26/2024 Procedure: Pharmacologic stress nuclear imaging study Indications: CAD, reduced EF Consent: Per the patient Procedure: The patient underwent pharmacologic (Regadenoson) evaluation with a peak heart rate of 103 beats per minute (74%predicted maximal heart rate) and a peak blood pressure of 110/60 mmHg. The baseline ECG demonstrated normal sinus rhythm, frequent PVCs. EKG during lexiscan infusion revealed no significant ischemic changes. EKG post infusion revealed no significant ischemic changes [There was no complaint of chest discomfort during pharmacologic infusion or recovery]. The examination was discontinued secondary to completion of protocol. Impression: 1. Lexiscan stress test test is negative for Lexiscan infusion induced EKG changes of ischemia. 2. Lexiscan stress test test is negative for Lexiscan infusion induced chest pain. 3. Results of the nuclear portion of the test is as below Myocardial perfusion imaging study: Technique: The patient was injected with 11.8 millicuries of technetium 99m Cardiolite and subsequently rest SPECT Cardiolite nuclear imaging was obtained in the horizontal long, vertical long, and short axis views. The patient underwent pharmacologic [Regadenoson 0.4mg] evaluation. Please see above for details. The patient was injected with [] millicuries of technetium 99m Cardiolite and subsequently stress SPECT Cardiolite nuclear imaging was obtained in the horizontal long, vertical long, and short axis views. A gated Cardiolite study at peak stress was obtained. Interpretation: Rest and stress SPECT Cardiolite nuclear imaging status post realignment, normalization, and attenuation correction demonstrate fixed defects involving the anterior wall, apex and lateral wall suggestive of prior infarction. There is no evidence of significant ischemia. Gated images reveal global hypokinesis. The reported LVEF is 33%. Impression: 1. There is no evidence of significant ischemia. 2. Estimated ejection fraction is 33%. This note was generated with QPD dictation software. It may contain incorrect words, spelling, and punctuation that were not noted in checking the note before signing. 08/26/241335 Date Megan Chau MD CC: RESIDENTIAL PROGRAM COORDINATORDesirae Banda; No Primary Care Physician Date Dictated: 08/26/241332 Date Transcribed: 08/26/241332 Jump Iron Machine Presser: TIERNEY Signed Normal [facility] CNOVon 08-18-2024 CNOV Office Visit ([facility] ) EBEN CRUZ ([id number]) 1945 M Date Time Provider Department 08/18/24 12:10 PM MARISSA SORTO [facility] During your visit today, we recorded the following information about you: Temperature Pulse Respiration Blood pressure 97.8 degrees 56/minute 18/minute 109/64 Weight 88.9 kg Marissa Sorto Trevor, PAINT TECHNICIAN.AIRPLANE FIRST OFFICER 08/18/2024 2:16 PM Signed Eben Cruz is a 79 year old male who presents with Cough (Cough, nasal congestion and drainage x 2 weeks) Started 2 weeks ago, now with persistent running nose and congestion, cough Cough Associated symptoms include sore throat. Pertinent negatives include no chest pain, no chills, no shortness of breath and no wheezing. PAST MEDICAL HISTORY Diagnosis Date A-fib ([facility]) CAD (coronary artery disease) Cardiomyopathy ([facility]) Chronic systolic heart failure ([facility]) CVA (cerebral vascular accident) ([facility]) 04/2023 right parietal CVA Essential hypertension HFrEF (heart failure with reduced ejection fraction) ([facility]) NYHA class lll History of cardiac cath 2013 EF 45%, and 50% cx, 30% LAD History of cardiac cath 09/24/2023 Sub-total, heavily calcified Prox CX. Unsuccessful PCI of the sub-total heavily calcified prox LCX. 50% distal LMCA. 50% calcified ostial LAD, 70% calcified ostial D1. 80% heavily calcified ostial and prox RCA. History of cardiac cath 09/26/2023 LM: ostial 50%, distal 80% stenosis. LAD 80% stenosis. Small diagonal 1 with proximal 70% lesion. CX: 100% with no collaterals. RCA: ostial 90% lesion, Mid 30% and distal 50%. History of cardioversion 10/02/2023 successful cardioversion X 1 with 300 J History of echocardiography 04/2019 EF 35-40%. Mod [...] stress test 2018 39 large inf scar History of transesophageal echocardiography ([facility]) 09/30/2023 EF 38%. Left ventricle moderately dilated. Severe global hypokinesis present. Right ventricle mildly dilated with reduced systolic function. Left atrium moderately dilated. Mild to moderate aortic valve stenosis. AV area 1.1 cm2. No aortic regurgitation. Moderated MR. Mild TR. Mixed hyperlipidemia NSTEMI (non-ST elevated myocardial infarction) ([facility]) 09/23/2023 Stented coronary artery 09/26/2023 NORIS to RCA. NORIS to LM and NORIS to LAD ACTIVE PROBLEM LIST Cardiomyopathy ([facility]) History of Echocardiography Cad (Coronary Artery Disease) History of Cardiac Cath History of Stress Test Mixed Hyperlipidemia Essential Hypertension Non-Smoker Sob (Shortness of Breath) Dizziness History of Holter Monitoring Hfref (Heart Failure With Reduced Ejection Fraction) ([facility]) Nstemi (Non-St Elevated Myocardial Infarction) ([facility]) A-Fib ([facility]) Current Outpatient Medications Medication Sig Dispense Refill ELIQUIS 5 mg tab(s) 5 mg. atorvastatin (LIPITOR) 40 mg tablet 40 mg. clopidogrel (PLAVIX) 75 mg tablet Take 75 mg by mouth. dapagliflozin propanediol (FARXIGA) 10 mg tablet Take 1 tablet by mouth once daily. furosemide (LASIX) 40 mg tablet [address] (PROTONIX) 40 mg tablet Take 40 mg by mouth. melatonin 10 mg cap Take by mouth. spironolactone (ALDACTONE) 25 mg tablet 0 Refill(s) tamsulosin (FLOMAX) 0.4 mg TAKE 2 CAPSULES BY MOUTH EVERY DAY FOR 90 DAYS Amiodarone HCl 400 mg tablet Take 400 mg by mouth. metoprolol succinate ER (TOPROL XL) 25 mg 24 hr tablet TAKE 1 TABLET AT BEDTIME 90 tablet 2 simvastatin (ZOCOR) 10 mg tablet TAKE 1 TABLET AT BEDTIME 90 tablet 0 ascorbic acid, vitamin C, (VITAMIN C) 500 mg tablet Take 500 mg by mouth once daily. MAGNESIUM OXIDE ORAL Take 1,000 mg by mouth. Take every 2-3 days saw palmcatrachita frt xtr-zinc picoli 80-15 mg cap Take 1 capsule by mouth twice daily. No current facility-administered medications for this visit. Social History Tobacco Use Smoking status: Never Passive exposure: Never Smokeless tobacco: Never Vaping Use Vaping status: Never Used Substance Use Topics Alcohol use: Not Currently Drug use: Never Alcohol Use: Not Currently Tobacco Use: Never FAMILY HISTORY Problem Relation Age of Onset Diabetes Mother Stroke Father Cancer Sister lung Heart disease Brother Diabetes Brother Stroke Brother Review of Systems Constitutional: Negative for chills, fever and malaise/fatigue. HENT: Positive for congestion and sore throat. Respiratory: Positive for cough and sputum production. Negative for shortness of breath and wheezing. (more content not included)... Normal [facility] Cardiology Visit Reporton Cardiology Visit Report [facility] [place] [id number] [place] [address] OFFICE VISIT Date of Service: 08/18/24 MR#: [id number] Acct: [id number] Name: EBEN CRUZ Rep #: [id number] : 1945 Provider: LUIZ hernandez Age/Sex: 79/M Location: [facility] Status: Signed HPI HPI History of Present Illness Details: Mr. Eben Cruz is an 79-year-old male who presents here for a cardiovascular follow-up visit. He was a direct transfer from [facility] for an NSTEMI on 09/23/2023. He originally presented to [facility] on 09/18/2023 for a planned elective total hip replacement with Dr. Schreiber. The procedure was noted to be fairly complicated and required wound VAC placement. Skilled rehab was recommended for discharge and the patient was in the process of transitioning to the [facility] TCU on 09/22/2023 however on the morning of 09/23/2023 he became acutely short of breath, stat labs were ordered and he was found to have a markedly elevated D-dimer at 2557 and a troponin of 6365. EKG at that time showed sinus tachycardia with ST segment depressions and no previous for comparison. CTA of the chest was negative for PE and showed only small bilateral pleural effusions. Given his troponin elevation and the concern for an NSTEMI he was transferred here for further management. He does follow with cardiology as an outpatient and had a recent stress test on 06/21/2023 that was negative for any inducible ischemia. Upon arrival cardiology was consulted and plan was for catheterization which was done today on 09/24/2023 and noted subtotal heavy calcified proximal left circumflex that was unable to be crossed with a wire, 50% distal LMCA, 50% calcified ostial LAD, 70% calcified ostial D1, and 80% heavily calcified ostial and proximal RCA. Unsuccessful PCI of the subtotal heavily calcified proximal left circumflex was attempted and medical therapy was recommended however I did discuss the case with Dr. Jackman and he felt that transfer to tertiary center may be required and would like to discuss it with tertiary care canter. Shortly after he returned from his cardiac catheterization he was noted to be hypoxic with oxygen saturations at 79% on room air and appeared somewhat devlin. He was placed on a nonrebreather with improvement in his oxygen saturations and cardiology was called to the bedside. A stat echocardiogram was obtained and found to show an EF of 25% with normal LV size, lateral wall in particular appeared to be severely hypokinetic with mild to moderate mitral valve insufficiency. Dr. Jackman was able to discuss the case with Dr. Nichole at [facility] who accepted for transfer for complex PCI. Heart catheterization on 09/26/2023 demonstrated severe calcific left main, ostial 50%, distal 80% stenosis. Severe calcified proximal LAD, 80% stenosis. Small D1 with proximal 70% lesion. Ostial circumflex totally occluded heavily calcification with no collaterals, severe calcified ostial RCA, 90% lesion, mid 30% and distal 50% RCA lesion. Patient did undergo IVUS and lithotripsy with a drug-eluting stent of his ostial RCA, left main and ostial and proximal LAD. He did have episodes of paroxysmal atrial fibrillation in which she did need to undergo a cardioversion. His echocardiogram from 12/18/2023 demonstrated an improved ejection fraction of 40%. He was recently admitted and evaluated [facility] for carbon monoxide poisoning. Echocardiogram showed an ejection fraction of 20%. Twelve-lead ECG on 06/23/2024 showed sinus tachycardia and frequent PVCs. His elevated troponin was thought to be type II event due to carbon oxide poisoning. Upon discharge, is recommend to repeat echocardiogram to evaluate LV function. He underwent repeat echocardiogram in 2024 that showed ejection fraction 20%. He denies chest, arm, jaw, or neck discomfort. He denies palpitations. He states occasional, mild bilateral lower extremity edema. He denies claudication. He states shortness of breath with activity. He states this been ongoing for the last 2 weeks. He also acknowledges a productive cough and wheezing over this timeframe. He denies shortness of breath at rest, orthopnea, or PND. He denies significant, sudden weight gain. He states dizziness. He denies lightheadedness, near- syncope, or syncope. He denies blood in urine, blood in stool, or epistaxis. He denies fever with chills. He denies myalgia. He acknowledges fatigue. His exercise level has remained stable. Intake Vital Signs 06/27/24 11:12 08/18/24 09:55 08/18/24 10:11 Height 5 ft 8 in 5 ft 8 in 5 ft 8 in Weight: 191 lb 196 lb BMI 29.0 29.7 BP 117/67 107/58 L Blood Pressure Location Lt brachial Lt brachial Position Sitting Sitting Respiration 16 16 Pulse 45 L 53 L Pulse Source NIBP NIBP Temp 97.9 F Temperature So (more content not included)... Normal [facility] XR CHEST 2V FRONTAL/LATon XR CHEST 2V FRONTAL/LAT * * *Final Report* * * DATE OF EXAM: Aug 18 2024 2:07PM RMX [id number] - XR CHEST 2V FRONTAL/LAT / PROCEDURE REASON: Subacute cough * * * * Physician Interpretation * * * * EXAMINATION: CHEST RADIOGRAPH (2 VIEW FRONTAL and LATERAL) CLINICAL HISTORY: Subacute cough MQ: [id number] EXAM DATE/TIME: 08/18/2024 2:07 PM COMPARISON: No relevant prior studies available. RESULT: Lines, tubes, and devices: None. Lungs and pleura: No consolidation. Scattered linear atelectases in the left lower lobe and lingula. Mild blunting of the left costophrenic angle, likely a small left pleural effusion. No right pleural effusion. No pneumothorax. Cardiomediastinal silhouette: The cardiomediastinal silhouette is upper limits normal/borderline enlarged. Bones and soft tissues: Degenerative changes are present within the thoracic spine. Mild anterior wedging of multiple mid and lower thoracic vertebrae. Advanced degenerative changes in the right shoulder joint. Postsurgical changes in the left humeral head. IMPRESSION: See result. Jump Iron Machine Presser: MARTY Transcribe Date/Time: Aug 20 2024 6:16P Dictated by : JUAN MANUEL MORALES MD This examination was interpreted and the report reviewed and electronically signed by: JUAN MANUEL MORALES MD on Aug 20 2024 6:17PM EST [id number] [facility] Echo, Limited Studyon 2024 Echo, Limited Study [facility] [address] [place] [address] Echo, Limited Study 08/08/24 0906 MR#: [id number] Acct: [id number] Name: EBEN CRUZ Rep #: [id number] : 1945 79 From: Ro Kendrick MD Attending Dr: Vidal Banda RESIDENTIAL PROGRAM COORDINATOR-C Status: REG CLI Ordering Dr: Vidal Banda RESIDENTIAL PROGRAM COORDINATOR RESIDENTIAL PROGRAM COORDINATOR-C Date: 08/08/24 Location: [facility] Sex: M C Admitted: Reason For Study : RE-EVAL EF Procedure This was a limited 2D transthoracic echocardiogram. Exam performed in department. Left Ventricle Mildly dilated left ventricle. The estimated ejection fraction is 20 %. Severe global left ventricular systolic dysfunction. Right Ventricle Normal RV size. Normal systolic function. Atria The left atrium is mildly enlarged. The right atrium is mildly enlarged. Mitral Valve Mild mitral annular calcification. Tricuspid Valve Normal tricuspid valve. Mild to moderate (1-2+) tricuspid valve insufficiency. Pulmonary artery systolic pressure is 72 mmHg. Aortic Valve Moderate diffuse aortic valve calcification. Pulmonic Valve The pulmonic valve is not well visualized. Great Vessels The aortic root is not well visualized. Pericardium/Pleural No pericardial effusion. MMode/2D Measurements Calculations EDV(MOD-sp2): 149.6 ml EDV(sp4-el): 127.3 ml EDV(MOD-sp4): 118.5 ml EDV(sp2-el): 154.7 ml ESV(MOD-sp4): 93.8 ml ESV(MOD-sp2): 113.3 ml ESV(sp2-el): 116.2 ml ESV(sp4-el): 97.7 ml LA A4 area: 25.6 cm?? FS: 11.0 % IVSd: 0.88 cm LAV(MOD-sp2): 80.5 ml LAV(MOD-bp): 88.8 ml LVAd ap4: 35.5 cm?? LAV(MOD-sp4): 92.1 ml LAV(MOD-bp) Indexed: 43.6 ml/m?? LVIDd: 5.8 cm LVAs ap2: 33.2 cm?? LVAd ap2: 39.1 cm?? LVLd ap4: 8.4 cm LVIDs: 5.2 cm LVAs ap4: 30.3 cm?? LVLs ap2: 8.1 cm LVLd ap2: 8.4 cm LVPWd: 0.95 cm LVLs ap4: 8.0 cm RA A4 area: 22.9 cm?? Doppler Measurements Calculations TR max alaina: 415.1 cm/sec TR max P.9 mmHg Other Measurements Calculations EF(MOD-sp4): 20.9 % EF(MOD-sp2): 24.3 % EF(sp4-el): 23.3 % SV(MOD-sp4): 24.7 ml SV(MOD-sp2): 36.4 ml SV(sp4-el): 29.6 ml TAPSE: 2.04 cm Conclusions The estimated ejection fraction is 20 %. Severe global left ventricular systolic dysfunction. The left atrium is mildly enlarged. The right atrium is mildly enlarged. Mild mitral annular calcification. Mild to moderate (1-2+) tricuspid valve insufficiency. Pulmonary artery systolic pressure is 72 mmHg. Moderate diffuse aortic valve calcification. Compared to the previous study, the systolic function has remained the same. 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 [address] 12 Lead EKG performed by [facility] 06/27/241123 MR#: [id number] Acct: [id number] Name: EBEN CRUZ Rep #: [id number] : 1945 79 From: Vidal Banda RESIDENTIAL PROGRAM COORDINATOR RESIDENTIAL PROGRAM COORDINATOR-C Attending Dr: Vidal Banda, RESIDENTIAL PROGRAM COORDINATOR-C Status: DEP AMB Ordering Dr: Vidal Banda RESIDENTIAL PROGRAM COORDINATOR RESIDENTIAL PROGRAM COORDINATOR-C Date: 06/27/24 Location: [facility] Sex: M C Admitted: [facility]/12 Lead EKG performed by [facility] ECG Report Interpretation S inus Rhythm - frequent ectopic ventricular beat s # VECs = 6-Nonspecific ST depression + Nonspecific T-abnormality -Nondiagnostic. ABNORMAL Electronically signed on 07/02/2024 at 08:46 by Don Parker Software Version [id number] 07/02/24 0851 Date Vidal Banda NP RESIDENTIAL PROGRAM COORDINATOR-C CC: No Primary Care Physician Date Dictated: 06/27/241123 Date Transcribed: 06/27/241123 [employer] Machine Presser: DEBRA Signed Normal [facility] Basic Metabolic Profile (BMP )on 06-27-2024 BUN Normal -18 [facility] Comment on above: Result Comment: Canc elled via OM: Order cancelled - Patient discharged Performed By: #### L 500.4050, L100.0100 #### [facility] [address] [place], [address] BUN/CRE Normal 10-20 [facility] Comment on above: Result Comment: Canc elled via OM: Order cancelled - Patient discharged Performed By: #### L 500.4050, L100.0100 #### [facility] [address] [place], [address] CA,Total Normal 8.5-10.1 [facility] Comment on above: Result Comment: Canc elled via OM: Order cancelled - Patient discharged Performed By: #### L 500.4050, L100.0100 #### [facility] [address] [place], [address] CL Normal 98-107 [facility] Comment on above: Result Comment: Canc elled via OM: Order cancelled - Patient discharged Performed By: #### L 500.4050, L100.0100 #### [facility] [address] [place], [address] CO2 Normal 21.0-32.0 [facility] Comment on above: Result Comment: Canc elled via OM: Order cancelled - Patient discharged Performed By: #### L 500.4050, L100.0100 #### [facility] [address] [place], [address] CREAT,SERUM Normal 0.70-1.30 [facility] Comment on above: Result Comment: Canc elled via OM: Order cancelled - Patient discharged Performed By: #### L 500.4050, L100.0100 #### [facility] [address] [place], [address] EST GFR Normal >60 [facility] Comment on above: Result Comment: Canc elled via OM: Order cancelled - Patient discharged Performed By: #### L 500.4050, L100.0100 #### [facility] [address] [place], [address] EST GFR - AA Normal >60 [facility] Comment on above: Result Comment: Canc elled via OM: Order cancelled - Patient discharged Performed By: #### L 500.4050, L100.0100 #### [facility] [address] [place], [address] GAP Normal 5-15 [facility] Comment on above: Result Comment: Canc elled via OM: Order cancelled - Patient discharged Performed By: #### L 500.4050, L100.0100 #### [facility] [address] [place], [address] GLU Normal 74-106 [facility] Comment on above: Result Comment: Canc elled via OM: Order cancelled - Patient discharged Performed By: #### L 500.4050, L100.0100 #### [facility] [address] [place], [address] Potassium Normal 3.5-5.1 [facility] Comment on above: Result Comment: Canc elled via OM: Order cancelled - Patient discharged Performed By: #### L 500.4050, L100.0100 #### [facility] [address] [place], [address] Basic Metabolic Profile (BMP) Normal 136-145 [facility] Comment on above: Result Comment: Canc elled via OM: Order cancelled - Patient discharged Performed By: #### L 500.4050, L100.0100 #### [facility] [address] [place], [address] CBC W/Diff, Automatedon 01-1 0-2024 Absolute Neut Normal 2.0-7.7 [facility] Comment on above: Result Comment: Canc elled via OM: Order cancelled - Patient discharged Performed By: #### L 500.4050, L100.0100 #### [facility] [address] [place], [address] HCT Normal 40-54 [facility] Comment on above: Result Comment: Canc elled via OM: Order cancelled - Patient discharged Performed By: #### L 500.4050, L100.0100 #### [facility] [address] [place], [address] HGB Normal 13.0-16.5 [facility] Comment on above: Result Comment: Canc elled via OM: Order cancelled - Patient discharged Performed By: #### L 500.4050, L100.0100 #### [facility] [address] [place], [address] MCH Normal 27.0-32.0 [facility] Comment on above: Result Comment: Canc elled via OM: Order cancelled - Patient discharged Performed By: #### L 500.4050, L100.0100 #### [facility] [address] [place], [address] MCHC Normal 32-36 [facility] Comment on above: Result Comment: Canc elled via OM: Order cancelled - Patient discharged Performed By: #### L 500.4050, L100.0100 #### [facility] [address] [place], [address] MCV Normal 80-94 [facility] Comment on above: Result Comment: Canc elled via OM: Order cancelled - Patient discharged Performed By: #### L 500.4050, L100.0100 #### [facility] [address] [place], [address] NEUT% Normal 47-70 [facility] Comment on above: Result Comment: Canc elled via OM: Order cancelled - Patient discharged Performed By: #### L 500.4050, L100.0100 #### [facility] [address] [place], [address] PLT Normal 150-450 [facility] Comment on above: Result Comment: Canc elled via OM: Order cancelled - Patient discharged Performed By: #### L 500.4050, L100.0100 #### [facility] [address] [place], [address] RBC Normal 4.6-6.2 [facility] Comment on above: Result Comment: Canc elled via OM: Order cancelled - Patient discharged Performed By: #### L 500.4050, L100.0100 #### [facility] [address] [place], [address] RDW CV Normal 11.6-14.6 [facility] Comment on above: Result Comment: Canc elled via OM: Order cancelled - Patient discharged Performed By: #### L 500.4050, L100.0100 #### [facility] [address] [place], [address] RDW SD Normal 35.1-43.9 [facility] Comment on above: Result Comment: Canc elled via OM: Order cancelled - Patient discharged Performed By: #### L 500.4050, L100.0100 #### [facility] [address] [place], [address] WBC Normal 4.4-11.0 [facility] Comment on above: Result Comment: Canc elled via OM: Order cancelled - Patient discharged Performed By: #### L 500.4050, L100.0100 #### [facility] [address] [place], [address] Cardiology Visit Reporton Cardiology Visit Report [facility] [address] [place] [address] OFFICE VISIT Date of Service: 06/27/24 MR#: [id number] Acct: [id number] Name: EBEN CRUZ Rep #: [id number] : 1945 Provider: LUIZ hernandez Age/Sex: 79/M Location: [facility] Status: Signed HPI HPI History of Present Illness Details: Mr. Eben Cruz is an 79-year-old male who presents here for a cardiovascular follow-up visit. He was a direct transfer from [facility] for an NSTEMI on 09/23/2023. He originally presented to [facility] on 09/18/2023 for a planned elective total hip replacement with Dr. Schreiber. The procedure was noted to be fairly complicated and required wound VAC placement. Skilled rehab was recommended for discharge and the patient was in the process of transitioning to the [facility] TCU on 09/22/2023 however on the morning of 09/23/2023 he became acutely short of breath, stat labs were ordered and he was found to have a markedly elevated D-dimer at 2557 and a troponin of 6365. EKG at that time showed sinus tachycardia with ST segment depressions and no previous for comparison. CTA of the chest was negative for PE and showed only small bilateral pleural effusions. Given his troponin elevation and the concern for an NSTEMI he was transferred here for further management. He does follow with cardiology as an outpatient and had a recent stress test on 06/21/2023 that was negative for any inducible ischemia. Upon arrival cardiology was consulted and plan was for catheterization which was done today on 09/24/2023 and noted subtotal heavy calcified proximal left circumflex that was unable to be crossed with a wire, 50% distal LMCA, 50% calcified ostial LAD, 70% calcified ostial D1, and 80% heavily calcified ostial and proximal RCA. Unsuccessful PCI of the subtotal heavily calcified proximal left circumflex was attempted and medical therapy was recommended however I did discuss the case with Dr. Jackman and he felt that transfer to tertiary center may be required and would like to discuss it with tertiary care canter. Shortly after he returned from his cardiac catheterization he was noted to be hypoxic with oxygen saturations at 79% on room air and appeared somewhat devlin. He was placed on a nonrebreather with improvement in his oxygen saturations and cardiology was called to the bedside. A stat echocardiogram was obtained and found to show an EF of 25% with normal LV size, lateral wall in particular appeared to be severely hypokinetic with mild to moderate mitral valve insufficiency. Dr. Jackman was able to discuss the case with Dr. Nichole at [facility] who accepted for transfer for complex PCI. Heart catheterization on 09/26/2023 demonstrated severe calcific left main, ostial 50%, distal 80% stenosis. Severe calcified proximal LAD, 80% stenosis. Small D1 with proximal 70% lesion. Ostial circumflex totally occluded heavily calcification with no collaterals, severe calcified ostial RCA, 90% lesion, mid 30% and distal 50% RCA lesion. Patient did undergo IVUS and lithotripsy with a drug-eluting stent of his ostial RCA, left main and ostial and proximal LAD. He did have episodes of paroxysmal atrial fibrillation in which she did need to undergo a cardioversion. His echocardiogram from 12/18/2023 demonstrated an improved ejection fraction of 40%. He was recently admitted and evaluated [facility] for carbon monoxide poisoning. Echocardiogram showed an ejection fraction of 20%. Twelve-lead ECG on 06/23/2024 showed sinus tachycardia and frequent PVCs. His elevated troponin was thought to be type II event due to carbon oxide poisoning. Upon discharge, is recommend to repeat echocardiogram to evaluate LV function. He denies chest, arm, jaw, or neck discomfort. He denies palpitations. He states ocassional, mild bilateral lower extremity edema. He denies claudication. He denies shortness of breath with activity, shortness of breath at rest, orthopnea, or PND. He denies chronic cough. He denies significant, sudden weight gain. He states dizziness. He denies lightheadedness, near-syncope, or syncope. He denies blood in urine, blood in stool, or epistaxis. He denies fever with chills. He denies myalgia. He acknowledges weakness and fatigue. His exercise level has remained stable. 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 Normal [facility] Basic Metabolic Profile (BMP )on 06-26-2024 BUN Normal 7-18 [facility] Comment on above: Result Comment: Canc elled via OM: Order cancelled - Patient discharged Performed By: #### L 500.4050, L100.0100 #### [facility] [address] [place], [address] BUN/CRE Normal 10-20 [facility] Comment on above: Result Comment: Canc elled via OM: Order cancelled - Patient discharged Performed By: #### L 500.4050, L100.0100 #### [facility] [address] [place], [address] CA,Total Normal 8.5-10.1 [facility] Comment on above: Result Comment: Canc elled via OM: Order cancelled - Patient discharged Performed By: #### L 500.4050, L100.0100 #### [facility] [address] [place], [address] CL Normal 98-107 [facility] Comment on above: Result Comment: Canc elled via OM: Order cancelled - Patient discharged Performed By: #### L 500.4050, L100.0100 #### [facility] [address] [place], [address] CO2 Normal 21.0-32.0 [facility] Comment on above: Result Comment: Canc elled via OM: Order cancelled - Patient discharged Performed By: #### L 500.4050, L100.0100 #### [facility] [address] [place], [address] CREAT,SERUM Normal 0.70-1.30 [facility] Comment on above: Result Comment: Canc elled via OM: Order cancelled - Patient discharged Performed By: #### L 500.4050, L100.0100 #### [facility] [address] [place], [address] EST GFR Normal >60 [facility] Comment on above: Result Comment: Canc elled via OM: Order cancelled - Patient discharged Performed By: #### L 500.4050, L100.0100 #### [facility] [address] [place], [address] EST GFR - AA Normal >60 [facility] Comment on above: Result Comment: Canc elled via OM: Order cancelled - Patient discharged Performed By: #### L 500.4050, L100.0100 #### [facility] [address] [place], [address] GAP Normal 5-15 [facility] Comment on above: Result Comment: Canc elled via OM: Order cancelled - Patient discharged Performed By: #### L 500.4050, L100.0100 #### [facility] [address] [place], [address] GLU Normal 74-106 [facility] Comment on above: Result Comment: Canc elled via OM: Order cancelled - Patient discharged Performed By: #### L 500.4050, L100.0100 #### [facility] [address] [place], [address] Potassium Normal 3.5-5.1 [facility] Comment on above: Result Comment: Canc elled via OM: Order cancelled - Patient discharged Performed By: #### L 500.4050, L100.0100 #### [facility] [address] [place], [address] Basic Metabolic Profile (BMP) Normal 136-145 [facility] Comment on above: Result Comment: Canc elled via OM: Order cancelled - Patient discharged Performed By: #### L 500.4050, L100.0100 #### [facility] [address] [place], [address] CBC W/Diff, Automatedon 01-0 Absolute Neut Normal 2.0-7.7 [facility] Comment on above: Result Comment: Canc elled via OM: Order cancelled - Patient discharged Performed By: #### L 500.4050, L100.0100 #### [facility] [address] [place], [address] HCT Normal 40-54 [facility] Comment on above: Result Comment: Canc elled via OM: Order cancelled - Patient discharged Performed By: #### L 500.4050, L100.0100 #### [facility] [address] [place], [address] HGB Normal 13.0-16.5 [facility] Comment on above: Result Comment: Canc elled via OM: Order cancelled - Patient discharged Performed By: #### L 500.4050, L100.0100 #### [facility] [address] [place], [address] MCH Normal 27.0-32.0 [facility] Comment on above: Result Comment: Canc elled via OM: Order cancelled - Patient discharged Performed By: #### L 500.4050, L100.0100 #### [facility] [address] [place], [address] MCHC Normal 32-36 [facility] Comment on above: Result Comment: Canc elled via OM: Order cancelled - Patient discharged Performed By: #### L 500.4050, L100.0100 #### [facility] [address] [place], [address] MCV Normal 80-94 [facility] Comment on above: Result Comment: Canc elled via OM: Order cancelled - Patient discharged Performed By: #### L 500.4050, L100.0100 #### [facility] [address] [place], [address] NEUT% Normal 47-70 [facility] Comment on above: Result Comment: Canc elled via OM: Order cancelled - Patient discharged Performed By: #### L 500.4050, L100.0100 #### [facility] [address] [place], [address] PLT Normal 150-450 [facility] Comment on above: Result Comment: Canc elled via OM: Order cancelled - Patient discharged Performed By: #### L 500.4050, L100.0100 #### [facility] [address] [place], [address] RBC Normal 4.6-6.2 [facility] Comment on above: Result Comment: Canc elled via OM: Order cancelled - Patient discharged Performed By: #### L 500.4050, L100.0100 #### [facility] [address] [place], [address] RDW CV Normal 11.6-14.6 [facility] Comment on above: Result Comment: Canc elled via OM: Order cancelled - Patient discharged Performed By: #### L 500.4050, L100.0100 #### [facility] [address] [place], [address] RDW SD Normal 35.1-43.9 [facility] Comment on above: Result Comment: Canc elled via OM: Order cancelled - Patient discharged Performed By: #### L 500.4050, L100.0100 #### [facility] [address] [place], [address] WBC Normal 4.4-11.0 [facility] Comment on above: Result Comment: Canc elled via OM: Order cancelled - Patient discharged Performed By: #### L 500.4050, L100.0100 #### [facility] [address] [place], [address] Absolute neutrophil countOrd ered By: Chet Edmonds on 06-25-2024 Neutrophils (Bld) [#/Vol] 5.3 10*3/uL 2.0-7.7 [facility] Basic Metabolic Profile (BMP )on 06-25-2024 BUN/CRE 18.9 RATIO Normal 10-20 [facility] Comment on above: Performed By: #### L 501.2300, L500.2500, L100.0100, L501.5200 #### [facility] [address] [place], [address] CA,Total 8.9 mg/dL Normal 8.5-10.1 [facility] Comment on above: Performed By: #### L 501.2300, L500.2500, L100.0100, L501.5200 #### [facility] [address] [place], [address] Chloride [Moles/Vol] 104 mmol/L Normal 98-107 [facility] Comment on above: Performed By: #### L 501.2300, L500.2500, L100.0100, L501.5200 #### [facility] [address] [place], [address] CO2 [Moles/Vol] 25.0 mmol/L Normal 21.0-32.0 [facility] Comment on above: Performed By: #### L 501.2300, L500.2500, L100.0100, L501.5200 #### [facility] [address] [place], [address] Creatinine [Mass/Vol] 1.32 mg/dL High 0.70-1.30 [facility] Comment on above: Result Comment: The validity of the calculated GFR GFRAA in patients over 70 years has not been determined. Clinical correlation is essential. Performed By: #### L 501.2300, L500.2500, L100.0100, L501.5200 #### [facility] [address] [place], [address] ECRCL 47.18 ml/min Normal [facility] Comment on above: Performed By: #### L 501.2300, L500.2500, L100.0100, L501.5200 #### [facility] [address] [place], [address] EST GFR - AA 67 mL/min Normal >60 [facility] Comment on above: Result Comment: Afri can Gabonese GFR Calc Performed By: #### L 501.2300, L500.2500, L100.0100, L501.5200 #### [facility] [address] [place], [address] GAP 7 Normal 5-15 [facility] Comment on above: Performed By: #### L 501.2300, L500.2500, L100.0100, L501.5200 #### [facility] [address] [place], [address] GFR/1.73 sq M.predicted among non-blacks MDRD (S/P/Bld) [Vol rate/Area] 55 mL/min/{1.73_m2} Low >60 [facility] Comment on above: Result Comment: Non- GFR Calc Performed By: #### L 501.2300, L500.2500, L100.0100, L501.5200 #### [facility] [address] [place], [address] Glucose [Mass/Vol] 109 mg/dL High 74-106 [facility] Comment on above: Result Comment: Fast ing Glucose result from 100 to 125 mg/dL suggests IMPAIRED HOMEOSTASIS per A.D.A. criteria. Performed By: #### L 501.2300, L500.2500, L100.0100, L501.5200 #### [facility] [address] [place], [address] Potassium [Moles/Vol] 4.2 mmol/L Normal 3.5-5.1 [facility] Comment on above: Performed By: #### L 501.2300, L500.2500, L100.0100, L501.5200 #### [facility] [address] [place], [address] Sodium [Moles/Vol] 136 mmol/L Normal 136-145 [facility] Comment on above: Performed By: #### L 501.2300, L500.2500, L100.0100, L501.5200 #### [facility] [address] [place], [address] Urea nitrogen [Mass/Vol] 25 mg/dL High 7- [facility] Comment on above: Performed By: #### L 501.2300, L500.2500, L100.0100, L501.5200 #### [facility] [address] [place], [address] Basophil percentageOrdered B y: Chet Edmonds on 06-25-2024 Basophils/100 WBC (Bld) 0.4 % 0-1 [facility] Blood urea nitrogen (BUN)/cr eatinine ratioOrdered By: Chet Edmonds on 06-25-2024 Urea nitrogen/Creatinine [Mass ratio] 18.9 mg/mg 10- [facility] CBC W/Diff, Automatedon Absolute Lymph 1.56 X10 3/uL Normal 0.83-4.51 [facility] Comment on above: Performed By: #### L 501.2300, L500.2500, L100.0100, L501.5200 #### [facility] [address] [place], [address] Absolute Neut 5.3 X10 3/uL Normal 2.0-7.7 [facility] Comment on above: Performed By: #### L 501.2300, L500.2500, L100.0100, L501.5200 #### [facility] [address] [place], [address] Basophils/100 WBC (Bld) 0.4 % Normal 0-1 [facility] Comment on above: Performed By: #### L 501.2300, L500.2500, L100.0100, L501.5200 #### [facility] [address] [place], [address] Eosinophils/100 WBC (Bld) 2.1 % Normal 0-5 [facility] Comment on above: Performed By: #### L 501.2300, L500.2500, L100.0100, L501.5200 #### [facility] [address] [place], [address] Erythrocyte distribution width (RBC) [Ratio] 13.6 % Normal 11.6-14.6 [facility] Comment on above: Performed By: #### L 501.2300, L500.2500, L100.0100, L501.5200 #### [facility] [address] [place], [address] Hematocrit (Bld) [Volume fraction] 46.5 % Normal 40-54 [facility] Comment on above: Performed By: #### L 501.2300, L500.2500, L100.0100, L501.5200 #### [facility] [address] [place], [address] Hemoglobin (Bld) [Mass/Vol] 15.0 g/dL Normal 13.0-16.5 [facility] Comment on above: Performed By: #### L 501.2300, L500.2500, L100.0100, L501.5200 #### [facility] [address] [place], [address] IG% 0.500 Normal 0.0-0.9 [facility] Comment on above: Result Comment: IG% - Immature Granulocytes (promyelocytes, myelocytes and metamyelocytes) > 1% indicates that a LEFT SHIFT is Present. Performed By: #### L 501.2300, L500.2500, L100.0100, L501.5200 #### [facility] [address] [place], [address] Lymphocytes/100 WBC (Bld) 20.0 % Normal 19-41 [facility] Comment on above: Performed By: #### L 501.2300, L500.2500, L100.0100, L501.5200 #### [facility] [address] [place], [address] MCH (RBC) [Entitic mass] 30.4 pg Normal 27.0-32.0 [facility] Comment on above: Performed By: #### L 501.2300, L500.2500, L100.0100, L501.5200 #### [facility] [address] [place], [address] MCHC (RBC) [Mass/Vol] 32.3 g/dL Normal 32-36 [facility] Comment on above: Performed By: #### L 501.2300, L500.2500, L100.0100, L501.5200 #### [facility] [address] [place], [address] MCV (RBC) [Entitic vol] 94.3 fL High 80-94 [facility] Comment on above: Performed By: #### L 501.2300, L500.2500, L100.0100, L501.5200 #### [facility] [address] [place], [address] Monocytes/100 WBC (Bld) 8.9 % Normal 0-10 [facility] Comment on above: Performed By: #### L 501.2300, L500.2500, L100.0100, L501.5200 #### [facility] [address] [place], [address] Neutrophils/100 WBC (Bld) 68.1 % Normal 47-70 [facility] Comment on above: Performed By: #### L 501.2300, L500.2500, L100.0100, L501.5200 #### [facility] [address] [place], [address] Nucleated RBC (Bld) [#/Vol] 0 10*3/uL Normal 0-5 [facility] Comment on above: Performed By: #### L 501.2300, L500.2500, L100.0100, L501.5200 #### [facility] [address] [place], [address] Platelet mean volume (Bld) [Entitic vol] 11.4 fL Normal 6.2-12.0 [facility] Comment on above: Performed By: #### L 501.2300, L500.2500, L100.0100, L501.5200 #### [facility] [address] [place], [address] Platelets (Bld) [#/Vol] 187 10*3/uL Normal 150-450 [facility] Comment on above: Performed By: #### L 501.2300, L500.2500, L100.0100, L501.5200 #### [facility] [address] [place], [address] RBC (Bld) [#/Vol] 4.93 10*6/uL Normal 4.6-6.2 [facility] Comment on above: Performed By: #### L 501.2300, L500.2500, L100.0100, L501.5200 #### [facility] [address] [place], [address] RDW SD 46.7 fl High 35.1-43.9 [facility] Comment on above: Performed By: #### L 501.2300, L500.2500, L100.0100, L501.5200 #### [facility] [address] [place], [address] WBC (Bld) [#/Vol] 7.8 10*3/uL Normal 4.4-11.0 [facility] Comment on above: Performed By: #### L 501.2300, L500.2500, L100.0100, L501.5200 #### [facility] [address] [place], [address] Carbon dioxide measurementOr dered By: Chet Edmonds on 06-25-2024 CO2 [Moles/Vol] 25.0 mmol/L 21.0-32.0 [facility] Carboxyhemoglobin (Bld) [Mas s/Vol]Ordered By: Chet Edmonds on 06-25-2024 Venous Blood Carboxyhemoglobin 1.6 % High 0.0-1.5 [facility] Chloride measurementOrdered By: Chet Edmonds on 06-25-2024 Chloride [Moles/Vol] 104 mmol/L 98-107 [facility] Eosinophil percentageOrdered By: Chet Edmonds on 06-25-2024 Eosinophils/100 WBC (Bld) 2.1 % 0-5 [facility] Erythrocyte distribution wid th ratioOrdered By: Chet Edmonds on 06-25-2024 Erythrocyte distribution width (RBC) [Ratio] 13.6 % 11.6-14.6 [facility] Erythrocyte distribution wid th standard deviationOrdered By: Chet Edmonds on 06-25-2024 Erythrocyte distribution width (RBC) [Entitic vol] 46.7 fL High 35.1-43.9 [facility] Estimated glomerular filtrat ion rate (GFR) AmericanOrdered By: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 [#/Vol] 4.85 10*6/uL Normal 4.6-6.2 [facility] Comment on above: Performed By: #### L 501.4020 #### [facility] [address] [place], [address] RDW SD 46.8 fl High 35.1-43.9 [facility] Comment on above: Performed By: #### L 501.4020 #### [facility] [address] [place], [address] WBC (Bld) [#/Vol] 6.6 10*3/uL Normal 4.4-11.0 [facility] Comment on above: Performed By: #### L 501.4020 #### [facility] [address] [place], [address] No Panel Informationon 05-01 Culture Urine 10,000 - 50,000 cfu/ ml Mixed growth consistent with normal urogenital donny. [facility] Work Phone: .Auto Diffon 01-23-2024 Basophil, Absolute 0.1 10 3/mcL Normal 0.0-0.2 [facility] ([place]) Comment on above: Performed By: #### A NSG, CBC, ADIFF, ANEU, BMP, ALB, GFR, ABOG #### [address] [address] Basophils/100 WBC (Bld) 0.8 % Normal 0.0-2.5 [facility] ([place]) Comment on above: Performed By: #### A NSG, CBC, ADIFF, ANEU, BMP, ALB, GFR, ABOG #### [address] [address] Eosinophil, Absolute 0.1 10 3/mcL Normal 0.0-0.4 [facility] ([place]) Comment on above: Performed By: #### A NSG, CBC, ADIFF, ANEU, BMP, ALB, GFR, ABOG #### [address] [address] Eosinophils/100 WBC (Bld) 1.8 % Normal 0.0-7.0 [facility] ([place]) Comment on above: Performed By: #### A NSG, CBC, ADIFF, ANEU, BMP, ALB, GFR, ABOG #### [address] [address] Lymphocyte, Absolute 1.8 10 3/mcL Normal 0.8-3.9 [facility] ([place]) Comment on above: Performed By: #### A NSG, CBC, ADIFF, ANEU, BMP, ALB, GFR, ABOG #### [address] [address] Lymphocytes/100 WBC (Bld) 23.8 % Normal 10.0-50.0 [facility] ([place]) Comment on above: Performed By: #### A NSG, CBC, ADIFF, ANEU, BMP, ALB, GFR, ABOG #### [address] [address] Monocyte, Absolute 1.0 10 3/mcL Normal 0.2-1.0 [facility] ([place] Comment on above: Performed By: #### A NSG, CBC, ADIFF, ANEU, BMP, ALB, GFR, ABOG #### [address] [address] Monocytes/100 WBC (Bld) 13.3 % High 1.7-13.0 [facility] ([place] Comment on above: Performed By: #### A NSG, CBC, ADIFF, ANEU, BMP, ALB, GFR, ABOG #### [address] [address] Neutrophils/100 WBC (Bld) 60.3 % Normal 37.0-80.0 [facility] ([place] Comment on above: Performed By: #### A NSG, CBC, ADIFF, ANEU, BMP, ALB, GFR, ABOG #### [address] [address] .GFRon 01-23-2024 GFR 56 ml/min/1.73sqm Normal [facility] ([place]) Comment on above: Result Comment: GFR Population mean for , Non- Americans Ages 20-29 = 116 mL/min/1.73 sq.m. Ages 30-39 = 107 mL/min/1.73 sq.m. Ages 40-49 = 99 mL/min/1.73 sq.m. Ages 50-59 = 93 mL/min/1.73 sq.m. Ages 60-69 = 85 mL/min/1.73 sq.m. Ages 70+ = 75 mL/min/1.73 sq.m. Chronic Kidney Disease: Less than 60 mL/min/1.73 square meters End Stage Renal Disease: Less than 15 mL/min/1.73 square meters Performed By: #### A NSG, CBC, ADIFF, ANEU, BMP, ALB, GFR, ABOG #### [address] [address] GFR Non- 46 ml/min/1.73sqm Normal [facility] ([place]) Comment on above: Result Comment: GFR Population mean for , Non- Americans Ages 20-29 = 116 mL/min/1.73 sq.m. Ages 30-39 = 107 mL/min/1.73 sq.m. Ages 40-49 = 99 mL/min/1.73 sq.m. Ages 50-59 = 93 mL/min/1.73 sq.m. Ages 60-69 = 85 mL/min/1.73 sq.m. Ages 70+ = 75 mL/min/1.73 sq.m. Chronic Kidney Disease: Less than 60 mL/min/1.73 square meters End Stage Renal Disease: Less than 15 mL/min/1.73 square meters Performed By: #### A NSG, CBC, ADIFF, ANEU, BMP, ALB, GFR, ABOG #### [address] [address] .NEUABSon 01-23-2024 Neutrophil, Absolute 4.5 10 3/mcL Normal 2.9-6.2 [facility] ([place]) Comment on above: Performed By: #### A NSG, CBC, ADIFF, ANEU, BMP, ALB, GFR, ABOG #### [address] [address] CBCon 01-23-2024 Erythrocyte distribution width (RBC) [Ratio] 17.1 % High 11.5-14.5 [facility] ([place] Comment on above: Performed By: #### A NSG, CBC, ADIFF, ANEU, BMP, ALB, GFR, ABOG #### [address] [address] Hematocrit (Bld) [Volume fraction] 48.9 % Normal 42.0-52.0 [facility] ([place] Comment on above: Performed By: #### A NSG, CBC, ADIFF, ANEU, BMP, ALB, GFR, ABOG #### [address] [address] Hgb 15.6 G/dL Normal 14.0-18.0 [facility] ([place] Comment on above: Performed By: #### A NSG, CBC, ADIFF, ANEU, BMP, ALB, GFR, ABOG #### [address] [address] MCH (RBC) [Entitic mass] 28.4 pg Normal 27.0-31.2 [facility] ([place] Comment on above: Performed By: #### A NSG, CBC, ADIFF, ANEU, BMP, ALB, GFR, ABOG #### [address] [address] MCHC 31.9 G/dL Normal 31.8-35.4 [facility] ([place] Comment on above: Performed By: #### A NSG, CBC, ADIFF, ANEU, BMP, ALB, GFR, ABOG #### [address] [address] MCV (RBC) [Entitic vol] 89.0 fL Normal 80.0-94.0 [facility] ([place] Comment on above: Performed By: #### A NSG, CBC, ADIFF, ANEU, BMP, ALB, GFR, ABOG #### [address] [address] Platelet 193 10 3/mcL Normal 130-400 [facility] ([place] Comment on above: Performed By: #### A NSG, CBC, ADIFF, ANEU, BMP, ALB, GFR, ABOG #### [address] [address] Platelet mean volume (Bld) [Entitic vol] 9.5 fL Normal 7.4-10.4 [facility] ([place] Comment on above: Performed By: #### A NSG, CBC, ADIFF, ANEU, BMP, ALB, GFR, ABOG #### [address] [address] RBC 5.50 10 6/mcL Normal 4.04-6.13 [facility] ([place]) Comment on above: Performed By: #### A NSG, CBC, ADIFF, ANEU, BMP, ALB, GFR, ABOG #### [address] [address] WBC 7.5 10 3/mcL Normal 4.6-10.8 [facility] ([place] Comment on above: Performed By: #### A NSG, CBC, ADIFF, ANEU, BMP, ALB, GFR, ABOG #### [address] [address] CMPon 01-23-2024 Albumin Level 3.4 G/dL Normal 3.4-4.8 [facility] ([place] Comment on above: Performed By: #### A NSG, CBC, ADIFF, ANEU, BMP, ALB, GFR, ABOG #### [address] [address] Albumin/Globulin [Mass ratio] 1.0 {ratio} Low 1.1-2.5 [facility] ([place] Comment on above: Performed By: #### A NSG, CBC, ADIFF, ANEU, BMP, ALB, GFR, ABOG #### [address] [address] ALP [Catalytic activity/Vol] 142 U/L High 40-135 [facility] ([place]) Comment on above: Performed By: #### A NSG, CBC, ADIFF, ANEU, BMP, ALB, GFR, ABOG #### [address] [address] ALT [Catalytic activity/Vol] 17 U/L Normal 16-63 [facility] ([place] Comment on above: Performed By: #### A NSG, CBC, ADIFF, ANEU, BMP, ALB, GFR, ABOG #### [address] [address] AST [Catalytic activity/Vol] 17 U/L Normal 10-40 [facility] ([place] Comment on above: Performed By: #### A NSG, CBC, ADIFF, ANEU, BMP, ALB, GFR, ABOG #### [address] [address] Bili Total 0.6 mg/dL Normal 0.2-1.0 [facility] ([place]) Comment on above: Result Comment: Use of this assay is not recommended for patients undergoing treatment with eltrombopag due to the potential for falsely elevated results. Performed By: #### A NSG, CBC, ADIFF, ANEU, BMP, ALB, GFR, ABOG #### [address] [address] BUN/Creatinine Ratio 19 ratio Normal 7-27 [facility] ([place] Comment on above: Performed By: #### A NSG, CBC, ADIFF, ANEU, BMP, ALB, GFR, ABOG #### [address] [address] Calcium [Mass/Vol] 8.9 mg/dL Normal 8.4-10.2 [facility] ([place] Comment on above: Performed By: #### A NSG, CBC, ADIFF, ANEU, BMP, ALB, GFR, ABOG #### [address] [address] Chloride [Moles/Vol] 104 mmol/L Normal 98-107 [facility] ([place] Comment on above: Performed By: #### A NSG, CBC, ADIFF, ANEU, BMP, ALB, GFR, ABOG #### [address] [address] CO2 [Moles/Vol] 22 mmol/L Low 23-31 [facility] ([place] Comment on above: Performed By: #### A NSG, CBC, ADIFF, ANEU, BMP, ALB, GFR, ABOG #### [address] [address] Creatinine [Mass/Vol] 1.47 mg/dL High 0.70-1.30 [facility] ([place]) Comment on above: Performed By: #### A NSG, CBC, ADIFF, ANEU, BMP, ALB, GFR, ABOG #### [address] [address] Electrolyte Balance 14.0 mEq/L Normal 4.0-15.0 [facility] ([place]) Comment on above: Performed By: #### A NSG, CBC, ADIFF, ANEU, BMP, ALB, GFR, ABOG #### [address] [address] Globulin 3.4 G/dL Normal [facility] ([place]) Comment on above: Performed By: #### A NSG, CBC, ADIFF, ANEU, BMP, ALB, GFR, ABOG #### [address] [address] Glucose [Mass/Vol] 114 mg/dL High 83-110 [facility] ([place] Comment on above: Performed By: #### A NSG, CBC, ADIFF, ANEU, BMP, ALB, GFR, ABOG #### [address] [address] Potassium [Moles/Vol] 4.2 mmol/L Normal 3.5-5.1 [facility] ([place]) Comment on above: Performed By: #### A NSG, CBC, ADIFF, ANEU, BMP, ALB, GFR, ABOG #### [address] [address] Sodium [Moles/Vol] 140 mmol/L Normal 136-145 [facility] ([place] Comment on above: Performed By: #### A NSG, CBC, ADIFF, ANEU, BMP, ALB, GFR, ABOG #### [address] [address] Total Protein 6.8 G/dL Normal 6.4-8.2 [facility] ([place]) Comment on above: Performed By: #### A NSG, CBC, ADIFF, ANEU, BMP, ALB, GFR, ABOG #### [address] [address] Urea nitrogen [Mass/Vol] 28 mg/dL High 7-18 [facility] ([place]) Comment on above: Performed By: #### A NSG, CBC, ADIFF, ANEU, BMP, ALB, GFR, ABOG #### [address] [address] LABORATORYOrdered By: SYSTEM SYSTEM on 01-23-2024 Albumin BCP dye [Mass/Vol] 3.4 G/dL Normal 3.4 - 4.8 G/dL AO ADM SS Albumin/Globulin [Mass ratio] 1.0 {ratio} Low 1.1 - 2.5 ratio AO ADM SS ALP [Catalytic activity/Vol] 142 U/L High 40 - 135 U/L AO ADM SS ALT With P-5'-P [Catalytic activity/Vol] 17 U/L Normal 16 - 63 U/L AO ADM SS AST With P-5'-P [Catalytic activity/Vol] 17 U/L Normal 10 - 40 U/L AO ADM SS Basophil, Absolute 0.1 103/mcL Normal 0.0 - 0.2 10^3/mcL AO Workflow SS Basophils/100 WBC (Bld) 0.8 % Normal 0.0 - 2.5 % AO Workflow SS Bilirubin [Mass/Vol] 0.6 mg/dL Normal 0.2 - 1 .0 mg/dL AO ADM SS Comment on above: Interpretive Data: U se of this assay is not recommended for patients undergoing treatment with eltrombopag due to the potential for falsely elevated results. Calcium [Mass/Vol] 8.9 mg/dL Normal 8.4 - 10. 2 mg/dL AO ADM SS Chloride [Moles/Vol] 104 mmol/L Normal 98 - 10 7 mmol/L AO ADM SS CO2 [Moles/Vol] 22 mmol/L Low 23 - 31 mmol/L AO ADM SS Creatinine [Mass/Vol] 1.47 mg/dL High 0.70 - 1.30 mg/dL AO ADM SS Electrolyte Balance 14.0 mEq/L Normal 4.0 - 15 .0 mEq/L AO ADM SS Eosinophil, Absolute 0.1 103/mcL Normal 0.0 - 0 .4 10^3/mcL AO Workflow SS Eosinophils/100 WBC (Bld) 1.8 % Normal 0.0 - 7.0 % AO Workflow SS Erythrocyte distribution width (RBC) [Ratio] 17.1 % High 11.5 - 14.5 % AO Workflow SS GFR/1.73 sq M.predicted among blacks MDRD (S/P/Bld) [Vol rate/Area] 56 ml/min/1.73sqm Invalid Interpretation Code AO Chemistry S Comment on above: Interpretive Data: GFR Population mean for , Non- Americans Ages 20-29 = 116 mL/min/1.73 sq.m. Ages 30-39 = 107 mL/min/1.73 sq.m. Ages 40-49 = 99 mL/min/1.73 sq.m. Ages 50-59 = 93 mL/min/1.73 sq.m. Ages 60-69 = 85 mL/min/1.73 sq.m. Ages 70+ = 75 mL/min/1.73 sq.m. Chronic Kidney Disease: Less than 60 mL/min/1.73 square meters End Stage Renal Disease: Less than 15 mL/min/1.73 square meters GFR/1.73 sq M.predicted among non-blacks MDRD (S/P/Bld) [Vol rate/Area] 46 ml/min/1.73sqm Invalid Interpretation Code AO Chemistry S Comment on above: Interpretive Data: GFR Population mean for , Non- Americans Ages 20-29 = 116 mL/min/1.73 sq.m. Ages 30-39 = 107 mL/min/1.73 sq.m. Ages 40-49 = 99 mL/min/1.73 sq.m. Ages 50-59 = 93 mL/min/1.73 sq.m. Ages 60-69 = 85 mL/min/1.73 sq.m. Ages 70+ = 75 mL/min/1.73 sq.m. Chronic Kidney Disease: Less than 60 mL/min/1.73 square meters End Stage Renal Disease: Less than 15 mL/min/1.73 square meters Globulin 3.4 G/dL Invalid Interpretation Code AO ADM SS Glucose [Mass/Vol] 114 mg/dL High 83 - 110 mg/dL AO ADM SS Hematocrit (Bld) [Volume fraction] 48.9 % Normal 42.0 - 52.0 % AO Workflow SS Hemoglobin (Bld) [Mass/Vol] 15.6 G/dL Normal 14.0 - 18.0 G/dL AO Workflow SS Lymphocyte, Absolute 1.8 103/mcL Normal 0.8 - 3 .9 10^3/mcL AO Workflow SS Lymphocytes/100 WBC (Bld) 23.8 % Normal 10.0 - 50.0 % AO Workflow SS MCH (RBC) [Entitic mass] 28.4 pg Normal 27.0 - 31.2 pg AO Workflow SS MCHC 31.9 G/dL Normal 31.8 - 35.4 G/dL AO Workflow SS MCV (RBC) [Entitic vol] 89.0 fL Normal 80.0 - 94.0 fL AO Workflow SS Monocyte, Absolute 1.0 103/mcL Normal 0.2 - 1.0 10^3/mcL AO Workflow SS Monocytes/100 WBC (Bld) 13.3 % High 1.7 - 13.0 % AO Workflow SS Neutrophil, Absolute 4.5 103/mcL Normal 2.9 - 6 .2 10^3/mcL AO Workflow SS Neutrophils/100 WBC (Bld) 60.3 % Normal 37.0 - 80.0 % AO Workflow SS Platelet mean volume (Bld) [Entitic vol] 9.5 fL Normal 7.4 - 10.4 fL AO Workflow SS Platelets (Bld) [#/Vol] 193 103/mcL Normal 130 - 400 10^3/mcL AO Workflow SS Potassium [Moles/Vol] 4.2 mmol/L Normal 3.5 - 5.1 mmol/L AO ADM SS Protein [Mass/Vol] 6.8 G/dL Normal 6.4 - 8.2 G/dL AO ADM SS RBC (Bld) [#/Vol] 5.50 106/mcL Normal 4.04 - 6.13 10^6/mcL AO Workflow SS Sodium [Moles/Vol] 140 mmol/L Normal 136 - 145 mmol/L AO ADM SS Urea nitrogen [Mass/Vol] 28 mg/dL High 7 - 18 mg/dL AO ADM SS Urea nitrogen/Creatinine [Mass ratio] 19 ratio Normal 7 - 27 ratio AO ADM SS WBC (Bld) [#/Vol] 7.5 103/mcL Normal 4.6 - 10.8 10^3/mcL AO Workflow SS LABORATORYOrdered By: Scooter Pedraza on 01-23-2024 Cholesterol [Mass/Vol] 137 mg/dL Normal 0 - 200 mg/dL AO ADM SS Comment on above: Interpretive Data: C holesterol Reference Interval: Less than 200 Desirable 200-239 Borderline high risk 240 and above High risk Cholesterol in HDL [Mass/Vol] 48 mg/dL Normal 40 - 60 mg/dL AO ADM SS Cholesterol in LDL [Mass/Vol] 73 mg/dL Normal 0 - 130 mg/dL AO ADM SS Triglyceride [Mass/Vol] 82 mg/dL Normal 0 - 150 mg/dL AO ADM SS Comment on above: Interpretive Data: T riglyceride Reference Interval: Less than 150 Normal 150-199 Borderline high risk 200-499 High risk 500 or higher Very high risk LIPIDon 01-23-2024 Cholesterol [Mass/Vol] 137 mg/dL Normal 0-200 [facility] ([place]) Comment on above: Result Comment: Chol esterol Reference Interval: Less than 200 Desirable 200-239 Borderline high risk 240 and above High risk Performed By: #### A NSG, CBC, ADIFF, ANEU, BMP, ALB, GFR, ABOG #### [address] [address] Cholesterol in HDL [Mass/Vol] 48 mg/dL Normal 40-60 [facility] ([place]) Comment on above: Performed By: #### A NSG, CBC, ADIFF, ANEU, BMP, ALB, GFR, ABOG #### [address] [address] Cholesterol in LDL [Mass/Vol] 73 mg/dL Normal 0-130 [facility] ([place]) Comment on above: Performed By: #### A NSG, CBC, ADIFF, ANEU, BMP, ALB, GFR, ABOG #### [address] [address] Triglyceride [Mass/Vol] 82 mg/dL Normal 0-150 [facility] ([place]) Comment on above: Result Comment: Trig lyceride Reference Interval: Less than 150 Normal 150-199 Borderline high risk 200-499 High risk 500 or higher Very high risk Performed By: #### A NSG, CBC, ADIFF, ANEU, BMP, ALB, GFR, ABOG #### [address] [address] Basophil percentageOrdered B y: David Palmer on 10-13-2023 Hemoglobin (Bld) [Mass/Vol] 10.5 g/dL 13.0-16.5 [facility] Hematocrit Auto (Bld) [Volum e fraction]Ordered By: David Palmer on 10-13-2023 Hematocrit (Bld) [Volume fraction] 34.4 % 40-54 [facility] Basophil percentageOrdered B y: David Palmer on 10-11-2023 Chloride [Moles/Vol] 107 mmol/L 98-107 [facility] Glucose [Mass/Vol] 95 mg/dL 74-106 [facility] Potassium [Moles/Vol] 4.5 mmol/L 3.5-5.1 [facility] Sodium [Moles/Vol] 138 mmol/L 136-145 [facility] Laboratory - Chemistry and C hemistry - challengeOrdered By: David Palmer on 10-11-2023 CO2 [Moles/Vol] 28.0 mmol/L 21.0-32.0 [facility] Urea nitrogen/Creatinine [Mass ratio] 18.4 mg/mg 10-20 [facility] No Panel InformationOrdered By: David Palmer on 10-11-2023 Estimated Creatinine Clearance Calc 45.27 ml/min [facility] Estimated GFR (MDRD) Amer 59 mL/min >60 [facility] Comment on above: GFR Calc Estimated GFR (MDRD) Non-Af Amer 49 mL/min >60 [facility] Comment on above: Non- GFR Calc Serum or plasma calcium kian urement (mass/volume)Ordered By: David Palmer on 10-11-2023 Calcium [Mass/Vol] 8.5 mg/dL 8.5-10.1 [facility] Serum or plasma creatinine m easurement (mass/volume)Ordered By: David Palmer on 10-11-2023 Creatinine [Mass/Vol] 1.47 mg/dL 0.70-1.30 [facility] Comment on above: The validity of the calculated GFR & GFRAA in patients over 70 years has not been determined. Clinical correlation is essential. Serum or plasma urea nitroge n measurement (mass/volume)Ordered By: David Palmer on 10-11-2023 Urea nitrogen [Mass/Vol] 27 mg/dL 7-18 [facility] Thin prep Papanicolaou smear with manual screeningOrdered By: David Palmer 10-11-2023 Thin prep Papanicolaou smear with manual screening 3 5-15 [facility] Absolute lymphocyte countOrd ered By: David Palmer on 10-10-2023 Lymphocytes Auto (Unsp spec) [#/Vol] 1.50 10*3/uL 0.83-4.51 [facility] Automated lymphocyte count a s percentage of total leukocytesOrdered By: David Palmer on 10-10-2023 Lymphocytes/100 WBC Auto (Unsp spec) 20.9 % 19-41 [facility] Basophil percentageOrdered B y: David Palmer on 10-10-2023 Basophils/100 WBC (Bld) 0.7 % 0-1 [facility] Eosinophils/100 WBC (Bld) 2.6 % 0-5 [facility] Monocytes/100 WBC (Bld) 8.9 % 0-10 [facility] Neutrophils (Bld) [#/Vol] 4.8 10*3/uL 2.0-7.7 [facility] Neutrophils/100 WBC (Bld) 66.3 % 47-70 [facility] WBC (Bld) [#/Vol] 7.2 10*3/uL 4.4-11.0 [facility] Determination of erythrocyte mean corpuscular volume (MCV)Ordered By: David Palmer on 10-10-2023 MCV (RBC) [Entitic vol] 98.1 fL 80-94 [facility] Erythrocyte distribution wid th ratioOrdered By: David Palmer on 10-10-2023 Erythrocyte distribution width (RBC) [Ratio] 13.6 % 11.6-14.6 [facility] Erythrocyte distribution wid th standard deviationOrdered By: David Palmer on 10-10-2023 Erythrocyte distribution width (RBC) [Entitic vol] 48.7 fL 35.1-43.9 [facility] Immature granulocytes/100 WB C Auto (Bld)Ordered By: David Palmer on 10-10-2023 Immature granulocytes/100 WBC (Bld) 0.600 % 0.0-0.9 [facility] Comment on above: IG% - Immature Granu locytes (promyelocytes, myelocytes and metamyelocytes) > 1% indicates that a LEFT SHIFT is Present. Laboratory - Hematology and Cell countsOrdered By: David Palmer on 10-10-2023 MCH (RBC) [Entitic mass] 29.2 pg 27.0-32.0 [facility] MCHC (RBC) [Mass/Vol] 29.8 g/dL 32-36 [facility] Nucleated RBC/100 WBC (Bld) [Ratio] 0 % 0-5 [facility] Platelet mean volume (Bld) [Entitic vol] 11.0 fL 6.2-12.0 [facility] Platelets (Bld) [#/Vol] 344 10*3/uL 150-450 [facility] RBC Auto (Bld) [#/Vol]Ordere d By: David Palmer on 10-10-2023 RBC (Bld) [#/Vol] 3.15 10*6/uL 4.6-6.2 [facility] 36on 10-07-2023 36 Error Normal [facility] Iron measurement (mass/mass) Ordered By: David Palmer on 10-07-2023 Iron (Unsp spec) [Mass/Mass] 28 ug/dL 65-175 [facility] Lower GI hemoglobin IA Ql (S tl)Ordered By: David Palmer on 10-07-2023 Stool Occult Blood (DANNIELLE) Positive [facility] No Panel InformationOrdered By: David Palmer on 10-07-2023 Total Iron Binding Capacity 228 ug/dL 250-450 [facility] Serum or plasma iron saturat ion measurement (mass fraction)Ordered By: David Palmer on 10-07-2023 Iron saturation [Mass fraction] 12.3 % 15.0-55.0 [facility] CALCIUM, IONIZEDon 4 CALCIUM IONIZED 4.40 mg/dL Normal 4.30-5.20 [facility] Comment on above: Performed By: #### L [id number] ####Framing Specialist: KIM GONZALES ([phone])[address] PH, IONIZED CALCIUM 7.45 Normal 7.31-7.46 [facility] Comment on above: Performed By: #### L [id number] ####Framing Specialist: KIM GONZALES ([phone])[address] [place]OR[place] 10-05-2023 [place] Next Site of Care Admission Date: 09/25/2023 12:49 PM Patient Name: EBEN CRUZ Location: [id number] A Date of : 1945 Placement Information [facility] Referral ID:[id number] Provider Name: Address 1: Phone Number: Address 2: Fax Number: City: Selection Factors: State: [facility]erral Type:[facility] - Return Referral ID:[id number] Provider Name:[facility] Address 1:[address] Address 2: City:[place] Selection Factors:Patient/Family Choice State:[facility] 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 Notified SNF via [facility]. Notified TCC and bedside nurse via secured chat. Gave nursing secretary transport form. Met w/ Pt, introduced self, explained role, and informed of transport plans including separate billing and possible time delay. PT staff was Working w / Pt upon SW arrival to room. Pt reported no issues or concerns with transport plans and requested SW call his Dtr Mark to inform. SW phone call w/ Pt's Dtr Mark who was listed as emergency contact in Pt's chart. Mark reported no issues to SW and requested copy of discharge med list. SW informed TCC of med list request. TCC notified bedside nurse who agreed to give Pt two copies of discharge med list. Sw phone call w/ Mark and informed of this information. Normal [facility] CBC W Auto Differential pane l (Bld)on 10-05-2023 Basophils (Bld) [#/Vol] 0.0 10*3/uL 0.0 - 0.2 10*3/uL [facility] Basophils/100 WBC (Bld) 0.4 % 0.0 - 2.0 % [facility] Eosinophils (Bld) [#/Vol] 0.2 10*3/uL 0.0 - 0.5 10*3/uL [facility] Eosinophils/100 WBC (Bld) 2.2 % 0.0 - 6.0 % [facility] Erythrocyte distribution width (RBC) [Ratio] 13.2 % 11.5 - 15.0 % [facility] Hematocrit (Bld) [Volume fraction] 31.7 % Low 40.0 - 52.0 % [facility] Hemoglobin (Bld) [Mass/Vol] 9.9 g/dL Low 13.0 - 18.0 g/dL [facility] Immature granulocytes (Bld) [#/Vol] 0.1 10*3/uL High NINF - 0.1 10*3/uL [facility] [employer] Immature granulocytes/100 WBC (Bld) 0.9 % 0.0 - 2.0 % [facility] Interpretation and review of laboratory results Abnormal [facility] Lymphocytes (Bld) [#/Vol] 1.6 10*3/uL 1.0 - 4.3 10*3/uL [facility] Lymphocytes/100 WBC (Bld) 17.5 % 15.0 - 45.0 % [facility] MCH (RBC) [Entitic mass] 30.3 pg 26.0 - 34.0 pg [facility] MCHC (RBC) [Mass/Vol] 31.2 % 30.5 - 36.0 % [facility] MCV (RBC) [Entitic vol] 96.9 fL 77.0 - 99.0 fL [facility] Monocytes (Bld) [#/Vol] 0.7 10*3/uL 0.0 - 0.9 10*3/uL [facility] Monocytes/100 WBC (Bld) 8.0 % 5.0 - 13.0 % [facility] [employer] Neutrophils (Bld) [#/Vol] 6.6 10*3/uL 1.8 - 7.5 10*3/uL [facility] Neutrophils/100 WBC (Bld) 71.0 % 38.0 - 82.0 % [facility] [employer] Nucleated RBC/100 WBC (Bld) [Ratio] 0.0 % [facility] [employer] Platelet mean volume (Bld) [Entitic vol] 10.7 fL 9.0 - 12.7 fL [facility] [employer] Platelets (Bld) [#/Vol] 458 10*3/uL High 140 - 440 10*3/uL [facility] RBC (Bld) [#/Vol] 3.27 10*6/uL Low 4.40 - 5.90 10*6/uL [facility] WBC (Bld) [#/Vol] 9.3 10*3/uL 3.6 - 10.7 10*3/uL [facility] CBC WITH AUTO DIFFERENTIALon 10-05-2023 Basophils (Bld) [#/Vol] 0.0 10*3/uL Normal 0.0-0.2 [facility] Comment on above: Performed By: #### L [id number] ####Framing Specialist: KIM GONZALES ([phone])[address] Basophils/100 WBC (Bld) 0.4 % Normal 0.0-2.0 [facility] Comment on above: Performed By: #### L [id number] ####Framing Specialist: KIM GONZALES ([phone])[address] Eosinophils (Bld) [#/Vol] 0.2 10*3/uL Normal 0.0-0.5 [facility] Comment on above: Performed By: #### L [id number] ####Framing Specialist: KIM [phone])[facility])[address] [place] [address] Eosinophils/100 WBC (Bld) 2.2 % Normal 0.0-6.0 [facility] Comment on above: Performed By: #### L [id number] ####Framing Specialist: KIM GONZALES ([phone])[facility])[address] [place] [address] Erythrocyte distribution width (RBC) [Ratio] 13.2 % Normal 11.5-15.0 [facility] Comment on above: Performed By: #### L [id number] ####Framing Specialist: KIM GONZALES ([phone])[facility])[address] [place] [address] Hematocrit (Bld) [Volume fraction] 31.7 % Low 40.0-52.0 [facility] Comment on above: Performed By: #### L [id number] ####Framing Specialist: KIM GONZALES ([phone])[facility])[address] [place] [address] Hemoglobin (Bld) [Mass/Vol] 9.9 g/dL Low 13.0-18.0 [facility] Comment on above: Performed By: #### L [id number] ####Framing Specialist: KIM GONZALES ([phone])[facility])[address] [place] [address] IMMATURE GRANS % 0.9 % Normal 0.0-2.0 [facility] Comment on above: Performed By: #### L [id number] ####Framing Specialist: KIM GONZALES ([phone])[facility])[address] [place] [address] IMMATURE GRANS ABSOLUTE 0.1 10*3/uL High <0.1 [facility] Comment on above: Performed By: #### L [id number] ####Framing Specialist: KIM GONZALES ([phone])[facility])[address] [place] [address] Lymphocytes (Bld) [#/Vol] 1.6 10*3/uL Normal 1.0-4.3 [facility] Comment on above: Performed By: #### L [id number] ####Framing Specialist: KIM GONZALES ([phone])[facility])[address] [place] [address] Lymphocytes/100 WBC (Bld) 17.5 % Normal 15.0-45.0 [facility] Comment on above: Performed By: #### L [id number] ####Framing Specialist: KIM GONZALES ([phone])[facility])[address] [place] [address] MCH (RBC) [Entitic mass] 30.3 pg Normal 26.0-34.0 [facility] Comment on above: Performed By: #### L [id number] ####Framing Specialist: KIM GONZALES ([phone])[facility])[address] [place] [address] MCHC 31.2 % Normal 30.5-36.0 [facility] Comment on above: Performed By: #### L [id number] ####Framing Specialist: KIM GONZALES ([phone])[facility])[address] [place] [address] MCV (RBC) [Entitic vol] 96.9 fL Normal 77.0-99.0 [facility] Comment on above: Performed By: #### L [id number] ####Framing Specialist: KIM GONZALES ([phone])[facility])[address] [place] [address] Monocytes (Bld) [#/Vol] 0.7 10*3/uL Normal 0.0-0.9 [facility] Comment on above: Performed By: #### L [id number] ####Framing Specialist: KIM GONZALES ([phone])[facility])[address] [place] [address] Monocytes/100 WBC (Bld) 8.0 % Normal 5.0-13.0 [facility] Comment on above: Performed By: #### L [id number] ####Framing Specialist: KIM GONZALES ([phone])[facility] ([facility])[address] [place] [address] NEUTROPHILS ABSOLUTE 6.6 10*3/uL Normal 1.8-7.5 [facility] Comment on above: Performed By: #### L [id number] ####Framing Specialist: KIM GONZALES ([phone])[facility] ([facility])[address] [place] [address] Neutrophils/100 WBC (Bld) 71.0 % Normal 38.0-82.0 [facility] Comment on above: Performed By: #### L [id number] ####Framing Specialist: KIM GONZALES ([phone])[facility])[address] [place] [address] NRBC 0.0 /100 WBCs Normal 0.0-2.0 [facility] Comment on above: Performed By: #### L [id number] ####Framing Specialist: KIM GONZALES ([phone])[facility] ([facility])[address] [place] [address] Platelet mean volume (Bld) [Entitic vol] 10.7 fL Normal 9.0-12.7 [facility] Comment on above: Performed By: #### L [id number] ####Framing Specialist: KIM GONZALES ([phone])[facility] ([facility])[address] [place] [address] [place] Platelets (Bld) [#/Vol] 458 10*3/uL High 140-440 [facility] Comment on above: Performed By: #### L [id number] ####Framing Specialist: KIM GONZALES ([phone])[facility])[address] [place] [address] RBC (Bld) [#/Vol] 3.27 10*6/uL Low 4.40-5.90 [facility] Comment on above: Performed By: #### L [id number] ####Framing Specialist: KIM GONZALES ([phone])[facility] ([facility])[address] [place] [address] WBC (Bld) [#/Vol] 9.3 10*3/uL Normal 3.6-10.7 [facility] Comment on above: Performed By: #### L [id number] ####Framing Specialist: KIM GNOZALES ([phone])[facility] ([facility])[address] [place] [address] COMPREHENSIVE METABOLIC PANE Miguel Angel 10-05-2023 Albumin [Mass/Vol] 3.1 g/dL Low 3.5-5.0 [facility] Comment on above: Performed By: #### L [id number], LAB17, [id number] ####Framing Specialist: KIM GONZALES ([phone])[facility] ([facility])[address] [place] [address] ALP [Catalytic activity/Vol] 103 U/L Normal 38-126 [facility] Comment on above: Performed By: #### L [id number], LAB17, [id number] ####Framing Specialist: KIM GONZALES ([phone])[facility] ([facility])[address] [place] [address] ALT [Catalytic activity/Vol] 27 U/L Normal 0-49 [facility] Comment on above: Performed By: #### L [id number], LAB17, [id number] ####Framing Specialist: KIM GONZALES ([phone])[facility] ([facility])[address] [place] [address] Anion gap [Moles/Vol] 4 mmol/L Normal 3-13 [facility] Comment on above: Performed By: #### L [id number], LAB17, [id number] ####Framing Specialist: KIM GONZALES ([phone])[facility])[address] [place] [address] AST [Catalytic activity/Vol] 27 U/L Normal 15-46 [facility] Comment on above: Performed By: #### L AB103, LAB17, [id number] ####Framing Specialist: KIM GONZALES ([phone])[facility] ([facility])[address] [place] [address] [place] Bilirubin [Mass/Vol] 0.8 mg/dL Normal 0.2-1.3 [facility] Comment on above: Performed By: #### L AB103, LAB17, [id number] ####Framing Specialist: KIM GONZALES ([phone])[facility] ([facility])[address] [place] [address] Calcium [Mass/Vol] 8.8 mg/dL Normal 8.4-10.4 [facility] Comment on above: Performed By: #### L AB103, LAB17, [id number] ####Framing Specialist: KIM GONZALES ([phone])[facility])[address] [place] [address] Chloride [Moles/Vol] 105 mmol/L Normal 98-107 [facility] Comment on above: Performed By: #### Barry DEJESUS, LAB17, [id number] ####Framing Specialist: KIM GONZALES ([phone])[facility] ([facility])[address] [place] [address] [place] CO2 [Moles/Vol] 28 mmol/L Normal 22-30 [facility] Comment on above: Performed By: #### Barry AB103, LAB17, [id number] ####Framing Specialist: KIM GONZALES ([phone])[facility] ([facility])[address] [place], [place] [address] [place] Creatinine [Mass/Vol] 1.22 mg/dL Normal 0.66-1.25 [facility] Comment on above: Performed By: #### L AB103, LAB17, [id number] ####Framing Specialist: KIM GONZALES ([phone])[facility])[address] [place] [address] [place] GLOMERULAR FILTRATION RATE ML/MIN/1.73 SQ M.PREDICTED 59.9 mL/min/1.73m*2 Low >60.0 [facility] Comment on above: Result Comment: Calc ulation based on the Chronic Kidney Disease Epidemiology Collaboration (CKD-EPI) equation refit without adjustment for race Performed By: #### L AB103, LAB17, [id number] ####Framing Specialist: KIM GONZALES ([phone])[facility] ([facility])[address] [place] [address] Glucose [Mass/Vol] 97 mg/dL Normal 70-100 [facility] Comment on above: Performed By: #### L AB103, LAB17, [id number] ####Framing Specialist: KIM GONZALES ([phone])[facility] ([facility])[address] [place] [address] Potassium [Moles/Vol] 4.3 mmol/L Normal 3.5-5.1 [facility] Comment on above: Performed By: #### Barry DEJESUS, LAB17, [id number] ####Framing Specialist: KIM GONZALES ([phone])[facility])[address] [place] [address] Protein [Mass/Vol] 6.6 g/dL Normal 6.3-8.2 [facility] Comment on above: Performed By: #### Barry AB103, LAB17, [id number] ####Framing Specialist: KIM GONZALES ([phone])[facility] ([facility])[address] [place] [address] Sodium [Moles/Vol] 137 mmol/L Normal 135-145 [facility] Comment on above: Performed By: #### Barry DEJESUS, LAB17, [id number] ####Framing Specialist: KIM GONZALES ([phone])[facility])[address] [place] [address] [place] Urea nitrogen [Mass/Vol] 26 mg/dL High 9-20 [facility] Comment on above: Performed By: #### L AB103, LAB17, [id number] ####Framing Specialist: KIM GONZALES ([phone])[facility])[address] [place] [address] Calcium.ionized [Moles/Vol]o n 10-05-2023 Calcium.ionized (Bld) [Moles/Vol] 4.40 mg/dL 4.30 - 5.20 mg/dL [facility] Interpretation and review of laboratory results Normal [facility] PH, IONIZED CALCIUM 7.45 7.31 - 7.46 [facility] Comprehensive metabolic 1998 panelon 10-05-2023 Albumin [Mass/Vol] 3.1 g/dL Low 3.5 - 5.0 g/dL [facility] ALP [Catalytic activity/Vol] 103 U/L 38 - 126 U/L [facility] ALT [Catalytic activity/Vol] 27 U/L 0 - 49 U/L [facility] Anion gap [Moles/Vol] 4 mmol/L 3 - 13 mmol/L [facility] AST [Catalytic activity/Vol] 27 U/L 15 - 46 U/L [facility] Bilirubin [Mass/Vol] 0.8 mg/dL 0.2 - 1 .3 mg/dL [facility] Calcium [Mass/Vol] 8.8 mg/dL 8.4 - 10. 4 mg/dL [facility] Chloride [Moles/Vol] 105 mmol/L 98 - 10 7 mmol/L [facility] CO2 [Moles/Vol] 28 mmol/L 22 - 30 mmol/L [facility] Creatinine [Mass/Vol] 1.22 mg/dL 0.66 - 1.25 mg/dL [facility] GFR/1.73 sq M.predicted MDRD (S/P/Bld) [Vol rate/Area] 59.9 mL/min/{1.73_m2} Low - PINF [facility] th Glucose [Mass/Vol] 97 mg/dL 70 - 100 mg/dL [facility] Potassium [Moles/Vol] 4.3 mmol/L 3.5 - 5.1 mmol/L [facility] Protein [Mass/Vol] 6.6 g/dL 6.3 - 8.2 g/dL [facility] Sodium [Moles/Vol] 137 mmol/L 135 - 145 mmol/L [facility] Urea nitrogen [Mass/Vol] 26 mg/dL High 9 - 20 mg/dL [facility] ECG 12-LEADon 10-05-2023 ECG 12-LEAD IMPRESSION: Sinus rhythm Nonspecific repol abnormality, lateral leads Compared to ECG 10/03/2023 11:35:26 Ventricular premature complex(es) no longer present Electronically Signed On 10-05-2023 08:34:23 EDT [facility] 12-LEAD IMPRESSION: Sinus rhythm Nonspecific repol abnormality, lateral leads Electronically Signed On 10-05-2023 08:02:59 EDT by Evie Valenzuela Normal [facility] - Chemistry and C hemistry - challengeon 10-05-2023 Magnesium [Mass/Vol] 2.5 mg/dL High 1.6 - 2 .3 mg/dL [facility] MAGNESIUMon 10-05-2023 Magnesium [Mass/Vol] 2.5 mg/dL High 1.6-2.3 [facility] Comment on above: Performed By: #### L AB103, LAB17, [id number] ####Framing Specialist: KIM GONZALES ([phone])[address] No Panel InformationOrdered By: Evie Valenzuela on 10-05-2023 P [place] 38 degrees [facility] Work Phone: ME Interval [address] [facility] Work Phone: QRS [place] 8 degrees [facility] Work Phone: QRSD Interval 97 ms [facility] Work Phone: QT Interval 383 ms [facility] Work Phone: QTC Interval [address] [facility] Work Phone: T Wave [place] [address] [facility] Work Phone: [facility] Work Phone: No Panel Informationon 10-04 CV EPIPHANY [facility] P [place] 45 degrees [facility] ME Interval 211 ms [facility] QRS [place] 29 degrees [facility] QRSD Interval [address] [facility] QT Interval 404 ms [facility] QTC Interval 454 ms [facility] T Wave [place] 224 degrees [facility] CV EPIPHANY [facility] Interpretation and review of laboratory results Abnormal [facility] Nursing Noteon 10-05-2023 Nursing Note Called report to [phone] [facility]. Removed patient's IV per protocol and ensured that his LifeVest, life skills worker, instructions and extra battery went with him. Gave him a copy medication list to give to his daughter per request. He had no questions or objections to discharge. No change in his assessment, ready for discharge/transport. Normal [facility] PHOSPHORUSon 10-05-2023 Phosphate [Mass/Vol] 4.0 mg/dL Normal 2.5-4.5 [facility] Comment on above: Performed By: #### L AB103, LAB17, [id number] ####Framing Specialist: KIM GONZALES ([phone])[facility] ([id number] Phosphate [Moles/Vol]on 09-16 Interpretation and review of laboratory results Normal [facility] Phosphate [Mass/Vol] 4.0 mg/dL 2.5 - 4 .5 mg/dL [facility] Progress Noteon 10-05-2023 Progress Note PHYSICAL THERAPY [facility] Treatment Note Name/MRN: Eben Cruz ([id number]) Date of : 1945 Age: 78 y.o. Room/Bed: 1C-130/1C-130 A Discharge Recommendation: Nursing Home Facility Equipment Needed: No Other: He has a walker and a cane at home to use. Assessment Pt presents with the listed deficits and decreased functional mobility. Transfers demo'd Kristie. Ambulation demo'd with use of FWW at Kristie. Maintained hip precautions throughout. Pt limited by fatigue, nausea, dizziness and weakness. Increased time required to complete tasks. PT goals progressing. Pt would benefit from continued skilled PT. Recommend SNF at discharge. Subjective Pt sitting in chair with RN giving meds. Agreeable to PT. Reviewed Hip Precuations. Pt required cues to recall. Able to maintain throughout session. RN cleared for treatment. Pain: RN managing pain. Medical Precautions: No active isolations Proper PPE donned/doffed in accordance with facility standards. Fall Risk: Davila Fall Risk Score: 60 (High Risk) Precautions/Restrictions: Hip Precautions: Anterior Hip Precautions LLE WBAT Overall Cognitive Status: WFL Overall Orientation Status: Oriented x4 Family/Caregiver Present: none Objective Ambulation Ambulation 1 Assistive device(s) used: front wheeled walker Assist level: Min Assist Distance (ft): 50ft x 4 Quality of gait: No LOB, antalgic, reciprocal stepping, B foot clearance, shuffling, uneven step length, wide MARISA, slow evan, flexed posture Cues for FWW management and safety. Pt cued to maintain MARISA within FWW. Cued to maintain close proximity to FWW. Cues for continuous reciprocal gait with increased step height and length to normalize gait pattern. Limited carryover noted. Cues for safety when turning with use of FWW. Cues for upright posture with no carryover. Reports nausea and dizziness during ambulation. Standing rest breaks 1-2 min for SOB, dizziness and nausea. No over LOB. General instability/unsteadiness. Assist for line and tube management. Transfers/Mobility Sit to stand: Min Assist Stand to sit: Min Assist X 3 from chair. Assist with line and tube management.. Cues for proper hand and foot placement. Cues to reach for safety awareness and maintain eccentric control when returning to seated surface. Cues for upright posture. No LOB. Slight unsteadiness. No instability noted. Denies dizziness. Device(s) used: front wheeled walker Exercises Exercises Hip Flexion: BLE AROM x 10 reps Knee Long Arc Quad: BLE AROM x 10 reps Ankle Pumps: BLE AROM x 10 reps Cues for technique and alignment. Balance: Static standing rest breaks with BUE support and flexed posture. Posture: fair Sitting - Static: Supervision Sitting - Dynamic: Supervision Standing - Static: Contact Guard Standing - Dynamic: Min Assist Plan Continue acute PT per plan of care. Safety/Education Safety Safety Devices in place: All fall risk precautions in place, call light within reach, left in chair, gait belt, patient at risk for falls, nurse notified, and no alarms engaged upon entry Restraints: No Education Education Given To: patient Education Provided: PT Role, PT Goals, Gait Training, Plan of Care, Home Exercise Program, Precautions, Transfer Training, Energy Conservation, Equipment, Fall Prevention Education, Discharge Recommendations, Benefits of Increasing Activity, and Breathing Techniques Education Method: Verbal, Demonstration, and Teach Back Barriers to Learning: None Education Outcome: Verbalized Understanding, Demonstrated Understanding, and Continued Education Needed Outcome Measures AM-PAC AM-PAC Inpatient Mobility Raw Score (No Stairs) : 12 JH-HLM JH-HLM Score: Walked 25 ft or more (i.e. walked outside of room) Goals Patient Stated Goal: to get home Encounter Problems Encounter Problems (Active) Mobility Patient will ambulate 50 feet with mod assist and least restrictive device in order to improve safety and independence with mobility. (Progressing) Start: 09/27/23 Expected End: 10/18/23 Patient will ascend and descend 2 stairs with one railing and min assist in order to safely negotiate home. (Not Addressed) Start: 09/27/23 Expected End: 10/18/23 Transfers Patient will perform bed mobility with min assist in order to improve independence and prepare for out of bed mobility. (Not Addressed) Start: 09/27/23 Expected End: 10/18/23 Patient will complete functional transfer with least restrictive device with mod assist in order to prepare for ambulation. (Progressing) Start: 09/27/23 Expected End: 10/18/23 Therapy Time Individual Co-treatment Time In 0851 Time Out 0931 Minutes 40 Timed Code Treatment Minutes: 38 Minutes (FA, GT x 2) INSTALLATION SUPERVISOR wore PPE in compliance with hospital guidelines and regulation when treating this patient. Brielle Adams, INSTALLATION SUPERVISOR Normal [facility] Vital signsOrdered By: Cornell Valenzuela on 10-05-2023 Heart rate 78 /min bpm [facility] [employer] Work Phone: Vital signson 10-05-2023 Heart rate 76 /min bpm [facility] [employer] CALCIUM, IONIZEDon 4 CALCIUM IONIZED 4.30 mg/dL Normal 4.30-5.20 [facility] Comment on above: Performed By: #### L [id number] ####Framing Specialist: KIM GONZALES ([phone])[facility] ([facility])[address] [place] [address] PH, IONIZED CALCIUM 7.43 Normal 7.31-7.46 [facility] Comment on above: Performed By: #### L AB54 ####Framing Specialist: KIM GONZALES ([phone])[facility] ([facility])[address] [place] [address] CBC W Auto Differential pane l (Bld)on 10-04-2023 Basophils (Bld) [#/Vol] 0.1 10*3/uL 0.0 - 0.2 10*3/uL [facility] Basophils/100 WBC (Bld) 0.6 % 0.0 - 2.0 % [facility] Eosinophils (Bld) [#/Vol] 0.2 10*3/uL 0.0 - 0.5 10*3/uL [facility] Eosinophils/100 WBC (Bld) 2.0 % 0.0 - 6.0 % [facility] Erythrocyte distribution width (RBC) [Ratio] 13.4 % 11.5 - 15.0 % [facility] Hematocrit (Bld) [Volume fraction] 33.8 % Low 40.0 - 52.0 % [facility] Hemoglobin (Bld) [Mass/Vol] 10.3 g/dL Low 13.0 - 18.0 g/dL [facility] Immature granulocytes (Bld) [#/Vol] 0.1 10*3/uL High NINF - 0.1 10*3/uL [facility] Immature granulocytes/100 WBC (Bld) 1.0 % 0.0 - 2.0 % [facility] Interpretation and review of laboratory results Abnormal [facility] Lymphocytes (Bld) [#/Vol] 1.6 10*3/uL 1.0 - 4.3 10*3/uL [facility] Lymphocytes/100 WBC (Bld) 14.0 % Low 15.0 - 45.0 % [facility] MCH (RBC) [Entitic mass] 29.8 pg 26.0 - 34.0 pg [facility] MCHC (RBC) [Mass/Vol] 30.5 % 30.5 - 36.0 % [facility] MCV (RBC) [Entitic vol] 97.7 fL 77.0 - 99.0 fL [facility] Monocytes (Bld) [#/Vol] 0.8 10*3/uL 0.0 - 0.9 10*3/uL [facility] Monocytes/100 WBC (Bld) 7.5 % 5.0 - 13.0 % [facility] Neutrophils (Bld) [#/Vol] 8.4 10*3/uL High 1.8 - 7.5 10*3/uL [facility] Neutrophils/100 WBC (Bld) 74.9 % 38.0 - 82.0 % [facility] Nucleated RBC/100 WBC (Bld) [Ratio] 0.0 % [facility] Platelet mean volume (Bld) [Entitic vol] 10.8 fL 9.0 - 12.7 fL [facility] Platelets (Bld) [#/Vol] 459 10*3/uL High 140 - 440 10*3/uL [facility] RBC (Bld) [#/Vol] 3.46 10*6/uL Low 4.40 - 5.90 10*6/uL [facility] WBC (Bld) [#/Vol] 11.2 10*3/uL High 3.6 - 10.7 10*3/uL [facility] CBC WITH AUTO DIFFERENTIALon 10-04-2023 Basophils (Bld) [#/Vol] 0.1 10*3/uL Normal 0.0-0.2 [facility] Comment on above: Performed By: #### L [id number] ####Framing Specialist: KIM GONZALES ([phone])[facility] ([facility])[address] [place] [address] Basophils/100 WBC (Bld) 0.6 % Normal 0.0-2.0 [facility] Comment on above: Performed By: #### L [id number] ####Framing Specialist: KIM GONZALES ([phone])[facility] ([facility])[address] [place] [address] [place] Eosinophils (Bld) [#/Vol] 0.2 10*3/uL Normal 0.0-0.5 [facility] Comment on above: Performed By: #### L [id number] ####Framing Specialist: KIM GONZALES ([phone])[facility] ([facility])[address] [place] [address] Eosinophils/100 WBC (Bld) 2.0 % Normal 0.0-6.0 [facility] Comment on above: Performed By: #### L [id number] ####Framing Specialist: KIM GONZALES ([phone])[facility] ([facility])[address] [place] [address] [place] Erythrocyte distribution width (RBC) [Ratio] 13.4 % Normal 11.5-15.0 [facility] Comment on above: Performed By: #### L [id number] ####Framing Specialist: KIM GONZALES ([phone])[facility] ([facility] Hematocrit (Bld) [Volume fraction] 33.8 % Low 40.0-52.0 [facility] Comment on above: Performed By: #### L [id number] ####Framing Specialist: KIM GONZALES ([phone])[facility])[address] [place] [address] Hemoglobin (Bld) [Mass/Vol] 10.3 g/dL Low 13.0-18.0 [facility] Comment on above: Performed By: #### L [id number] ####Framing Specialist: KIM GONZALES ([phone])[facility])[address] [place] [address] IMMATURE GRANS % 1.0 % Normal 0.0-2.0 [facility] Comment on above: Performed By: #### L [id number] ####Framing Specialist: KIM GONZALES ([phone])[facility])[address] [place] [address] IMMATURE GRANS ABSOLUTE 0.1 10*3/uL High <0.1 [facility] Comment on above: Performed By: #### L [id number] ####Framing Specialist: KIM GONZALES ([phone])[facility])[address] [place] [address] Lymphocytes (Bld) [#/Vol] 1.6 10*3/uL Normal 1.0-4.3 [facility] Comment on above: Performed By: #### L [id number] ####Framing Specialist: KIM GONZALES ([phone])[facility])[address] [place] [address] Lymphocytes/100 WBC (Bld) 14.0 % Low 15.0-45.0 [facility] Comment on above: Performed By: #### L [id number] ####Framing Specialist: KIM GONZALES ([phone])[facility])[address] [place] [address] MCH (RBC) [Entitic mass] 29.8 pg Normal 26.0-34.0 [facility] Comment on above: Performed By: #### L [id number] ####Framing Specialist: KIM GONZALES ([phone])[facility])[address] [place] [address] MCHC 30.5 % Normal 30.5-36.0 [facility] Comment on above: Performed By: #### L [id number] ####Framing Specialist: KIM GONZALES ([phone])[facility])[address] [place] [address] MCV (RBC) [Entitic vol] 97.7 fL Normal 77.0-99.0 [facility] Comment on above: Performed By: #### L [id number] ####Framing Specialist: KIM GONZALES ([phone])[facility])[address] [place] [address] Monocytes (Bld) [#/Vol] 0.8 10*3/uL Normal 0.0-0.9 [facility] Comment on above: Performed By: #### L [id number] ####Framing Specialist: KIM GONZALES ([phone])[facility])[address] [place] [address] Monocytes/100 WBC (Bld) 7.5 % Normal 5.0-13.0 [facility] Comment on above: Performed By: #### L [id number] ####Framing Specialist: KIM GONZALES ([phone])[facility])[address] [place] [address] NEUTROPHILS ABSOLUTE 8.4 10*3/uL High 1.8-7.5 [facility] Comment on above: Performed By: #### L [id number] ####Framing Specialist: KIM GONZALES ([phone])[facility])[address] [place] [address] Neutrophils/100 WBC (Bld) 74.9 % Normal 38.0-82.0 [facility] Comment on above: Performed By: #### L [id number] ####Framing Specialist: KIM [id number])[facility] ([facility])[address] [place] [address] NRBC 0.0 /100 WBCs Normal 0.0-2.0 [facility] Comment on above: Performed By: #### L [id number] ####Framing Specialist: IKM GONZALES ([phone])[facility])[address] [place] [address] Platelet mean volume (Bld) [Entitic vol] 10.8 fL Normal 9.0-12.7 [facility] Comment on above: Performed By: #### L [id number] ####Framing Specialist: KIM GONZALES ([phone])[facility])[address] [place] [address] Platelets (Bld) [#/Vol] 459 10*3/uL High 140-440 [facility] Comment on above: Performed By: #### L [id number] ####Framing Specialist: KIM GONZALES ([id number])[facility] ([facility])[address] [place] [address] RBC (Bld) [#/Vol] 3.46 10*6/uL Low 4.40-5.90 [facility] Comment on above: Performed By: #### L [id number] ####Framing Specialist: KIM GONZALES ([phone])[facility])[address] [place] [address] WBC (Bld) [#/Vol] 11.2 10*3/uL High 3.6-10.7 [facility] Comment on above: Performed By: #### L [id number] ####Framing Specialist: KIM GONZALES ([phone])[facility])[address] [place] [address] COMPREHENSIVE METABOLIC PANE Miguel Angel 10-04-2023 Albumin [Mass/Vol] 3.1 g/dL Low 3.5-5.0 [facility] Comment on above: Performed By: #### L AB103, LAB17, [id number] ####Framing Specialist: KIM GONZALES ([id number])[facility] ([facility] [place] [address] [place] ALP [Catalytic activity/Vol] 102 U/L Normal 38-126 [facility] Comment on above: Performed By: #### L AB103, LAB17, [id number] ####Framing Specialist: KIM GONZALES ([phone])[facility] ([facility])[address] [place] [address] [place] ALT [Catalytic activity/Vol] 29 U/L Normal 0-49 [facility] Comment on above: Performed By: #### L AB103, LAB17, [id number] ####Framing Specialist: KIM GONZALES ([phone])[facility] ([facility])[address] [place] [address] Anion gap [Moles/Vol] 5 mmol/L Normal 3-13 [facility] Comment on above: Performed By: #### Barry DEJESUS, LAB17, [id number] ####Framing Specialist: KIM GONZALES ([phone])[facility] ([facility])[address] [place] [address] [place] AST [Catalytic activity/Vol] 32 U/L Normal 15-46 [facility] Comment on above: Performed By: #### Barry AB103, LAB17, [id number] ####Framing Specialist: KIM GONZALES ([id number])[facility] ([facility])[address] [place] [address] Bilirubin [Mass/Vol] 0.8 mg/dL Normal 0.2-1.3 [facility] Comment on above: Performed By: #### L AB103, LAB17, [id number] ####Framing Specialist: KIM GONZALES ([id number])[facility] ([facility])[address] [place] [address] [place] Calcium [Mass/Vol] 8.6 mg/dL Normal 8.4-10.4 [facility] Comment on above: Performed By: #### L AB103, LAB17, [id number] ####Framing Specialist: KIM GONZALES ([phone])[facility] ([facility])[address] Chloride [Moles/Vol] 105 mmol/L Normal 98-107 [facility] Comment on above: Performed By: #### L AB103, LAB17, [id number] ####Framing Specialist: KIM GONZALES ([phone])[facility])[address] [place] [address] CO2 [Moles/Vol] 28 mmol/L Normal 22-30 [facility] Comment on above: Performed By: #### L AB103, LAB17, [id number] ####Framing Specialist: KIM GONZALES ([phone])[facility])[address] [place] [address] Creatinine [Mass/Vol] 1.09 mg/dL Normal 0.66-1.25 [facility] Comment on above: Performed By: #### Barry AB103, LAB17, [id number] ####Framing Specialist: KIM GONZALES ([phone])[facility])[address] [place] [address] GLOMERULAR FILTRATION RATE ML/MIN/1.73 SQ M.PREDICTED 68.6 mL/min/1.73m*2 Normal >60.0 [facility] Comment on above: Result Comment: Calc ulation based on the Chronic Kidney Disease Epidemiology Collaboration (CKD-EPI) equation refit without adjustment for race Performed By: #### L ABCintia, LAB17, [id number] ####Framing Specialist: KIM GONZALES ([phone])[facility] ([facility])[address] [place] [address] Glucose [Mass/Vol] 102 mg/dL High 70-100 [facility] Comment on above: Performed By: #### L AB103, LAB17, [id number] ####Framing Specialist: KIM GONZALES ([phone])[facility])[address] [place] [address] Potassium [Moles/Vol] 4.1 mmol/L Normal 3.5-5.1 [facility] Comment on above: Performed By: #### L AB103, LAB17, [id number] ####Framing Specialist: KIM [id number])[facility] ([facility])[address] [place] [address] Protein [Mass/Vol] 6.5 g/dL Normal 6.3-8.2 [facility] Comment on above: Performed By: #### L AB103, LAB17, [id number] ####Framing Specialist: KIM GONZALES ([phone])[facility])[address] [place] [address] Sodium [Moles/Vol] 138 mmol/L Normal 135-145 [facility] Comment on above: Performed By: #### L AB103, LAB17, [id number] ####Framing Specialist: KIM GONZALES ([phone])[facility])[address] [place] [address] Urea nitrogen [Mass/Vol] 26 mg/dL High 9-20 [facility] Comment on above: Performed By: #### L AB103, LAB17, [id number] ####Framing Specialist: KIM GONZALES ([phone])[facility] ([facility])[address] [place] [address] Calcium.ionized [Moles/Vol]o n 10-04-2023 Calcium.ionized (Bld) [Moles/Vol] 4.30 mg/dL 4.30 - 5.20 mg/dL [facility] Interpretation and review of laboratory results Normal [facility] PH, IONIZED CALCIUM 7.43 7.31 - 7.46 [facility] Comprehensive metabolic 1998 panelon 10-04-2023 Albumin [Mass/Vol] 3.1 g/dL Low 3.5 - 5.0 g/dL [facility] ALP [Catalytic activity/Vol] 102 U/L 38 - 126 U/L [facility] ALT [Catalytic activity/Vol] 29 U/L 0 - 49 U/L [facility] Anion gap [Moles/Vol] 5 mmol/L 3 - 13 mmol/L [facility] AST [Catalytic activity/Vol] 32 U/L 15 - 46 U/L [facility] Bilirubin [Mass/Vol] 0.8 mg/dL 0.2 - 1 .3 mg/dL [facility] Calcium [Mass/Vol] 8.6 mg/dL 8.4 - 10. 4 mg/dL [facility] Chloride [Moles/Vol] 105 mmol/L 98 - 10 7 mmol/L [facility] CO2 [Moles/Vol] 28 mmol/L 22 - 30 mmol/L [facility] Creatinine [Mass/Vol] 1.09 mg/dL 0.66 - 1.25 mg/dL [facility] GFR/1.73 sq M.predicted MDRD (S/P/Bld) [Vol rate/Area] 68.6 mL/min/{1.73_m2} - PINF [facility] th Glucose [Mass/Vol] 102 mg/dL High 70 - 100 mg/dL [facility] Potassium [Moles/Vol] 4.1 mmol/L 3.5 - 5.1 mmol/L [facility] Protein [Mass/Vol] 6.5 g/dL 6.3 - 8.2 g/dL [facility] Sodium [Moles/Vol] 138 mmol/L 135 - 145 mmol/L [facility] Urea nitrogen [Mass/Vol] 26 mg/dL High 9 - 20 mg/dL [facility] ECG 12-LEADon 10-04-2023 ECG 12-LEAD IMPRESSION: Sinus rhythm Ventricular premature complex Borderline prolonged ME interval Nonspecific repol abnormality, lateral leads Compared to ECG 10/02/2023 12:56:47 No significant changes Electronically Signed On 10-04-2023 10:06:58 EDT by Davy Zapata [facility] - Chemistry and C hemistry - challengeon 10-04-2023 Magnesium [Mass/Vol] 2.5 mg/dL High 1.6 - 2 .3 mg/dL [facility] MAGNESIUMon 10-04-2023 Magnesium [Mass/Vol] 2.5 mg/dL High 1.6-2.3 [facility] Comment on above: Performed By: #### L AB103, LAB17, [id number] ####Framing Specialist: KIM GONZALES ([phone])[facility] ([address] No Panel InformationOrdered By: Demetris López on 10-04-2023 Pathology Review [facility] Work Phone: [facility] Work Phone: No Panel Informationon 10-03 Interpretation and review of laboratory results Abnormal [facility] PHOSPHORUSon 10-04-2023 Phosphate [Mass/Vol] 4.1 mg/dL Normal 2.5-4.5 [facility] Comment on above: Performed By: #### L AB103, LAB17, [id number] ####Framing Specialist: KIM GONZALES ([phone])[facility] ([address] Phosphate [Moles/Vol]on 09-16 Interpretation and review of laboratory results Normal [facility] Phosphate [Mass/Vol] 4.1 mg/dL 2.5 - 4 .5 mg/dL [facility] Progress Noteon 10-04-2023 Progress Note OCCUPATIONAL THERAPY [facility] Treatment Note Name/MRN: Eben Cruz ([id number]) Date of : 1945 Age: 78 y.o. Room/Bed: 1C130/1C130 A Discharge Recommendation: Nursing Home Facility Equipment Needed: Yes (FWW) Prior Level of Function ADL Assistance: Independent Ambulation Assistance: Independent Transfer Assistance: Independent Assessment Currently Pt required MOD A for functional transfers and mobility with use of FWW. Pt required MOD A for UB ADL d/t limited ROM of bilateral shoulders. Pt required MAX A for LB ADL. Pt required MOD A for toilet transfer & MAX A for posterior hygiene. Pt is limited by pain, decreased standing balance and decreased mobility hindering indep and safety with functional tasks. Recommending SNF upon discharge in order to achieve highest level of function. Subjective Pt seated in recliner chair upon entry. Pt denies pain. RN approved of therapy. Pt pleasant and agreeable to OT TX. Pt stated I'm slowly on the mend! Pain: Pt denies any current pain. Medical Precautions: No active isolations Proper PPE donned/doffed in accordance with facility standards. Fall Risk: Davila Fall Risk Score: 60 (High Risk) Precautions/Restrictions: Left LE Weight Bearing: Weight Bearing As Tolerated Hip Precautions: Anterior Hip Precautions Lines/Drains/Airways: PIV Family/Caregiver Present: none Objective ADLs Grooming: Mod Assist, after setup- MOD A for static standing balance to perform oral hygiene and washing face with set up assist to gather ADL supplies required and physical assist to unthread cap of toothpaste d/t decreased FMC. UE Bathing: Mod Assist- physical assist to wash axillary region , sides of body and back d/t limited bilateral shoulder ROM. LE Bathing: Max Assist- to was below knees- educated on LHS to increase indep and safety of task and maintain anterior hip precuations. UE Dressing: Min Assist- to thread LUE into sleeve of gown and to doff off RUE. LE Dressing: Dependent to doff/ ian gripper socks Toileting: Mod Assist, Max Assist- MOD A for transfer for safety turning and safe walker mgmt; MAX A for posterior hygiene- Pt able to perform anterior hygiene with MOD support to maintain static standing balance. Transfers/Mobility Sit to stand: Mod Assist Stand to sit: Min Assist Standing balance: Mod Assist Functional mobility: Mod Assist Device(s) used: FWW Plan Continue acute OT per plan of care. Safety/Education Safety Safety Devices in place: All fall risk precautions in place, call light within reach, left in chair, chair alarm in place, and nurse notified Restraints: No Education Education Given To: patient Education Provided: OT Role, Plan of Care, ADL Adaptive Strategies, Transfer Training, Energy Conservation, Discharge Recommendations, Benefits of Increasing Activity, and Breathing Techniques, & Anterior hip precautions Education Method: Verbal, Demonstration, and Teach Back Barriers to Learning: None Education Outcome: Verbalized Understanding and Continued Education Needed AM-PAC Goals Patient Stated Goal: to get stronger Encounter Problems Encounter Problems (Active) Balance Patient will maintain dynamic standing balance for 3-5 minutes with SBA in order to demonstrate decreased risk of falling. Start: 10/01/23 Expected End: 10/29/23 Goal note on 10/04/23 1401 by BARRETT Macario Pt instructed on static standing balance requiring MOD A for approx 3 minutes x 2 for standing grooming task without a seated rest period required + verbal cues for improved posture and pursed lip breathing to reduce fatigue. Bathing Patient will utilize adaptive techniques to bathe body min A. Start: 10/01/23 Expected End: 10/29/23 Dressing Upper Extremities Patient will complete upper body dressing SBA. Start: 10/01/23 Expected End: 10/29/23 Dressings Lower Extremities Patient will dress lower body min A. Start: 10/01/23 Expected End: 10/29/23 Toileting Patient will complete toileting tasks at standard toilet with min assist. Start: 10/01/23 Expected End: 10/29/23 Therapy Time Individual Co-treatment Time In 1322 Time Out 1358 Minutes 36 Timed Code Treatment Minutes: 36 Minutes (1-ADL; 1- FUNCT ACT) [facility]ER[facility]Y [facility] Treatment Note Name/MRN: Eben Cruz ([id number]) Date of : 1945 Age: 78 y.o. Room/Bed: 1C-130/1C-130 A Discharge Recommendation: Nursing Home Facility Equipment Needed: No Other: He has a walker and a cane at home to use. Assessment Mr Cruz is up in the chair today, nicely alert and joking around. He is willing to ambulate in the halls with PT. He was worried about his lunch coming, but was reassured that he will be in this unit and able to be back in time for it to still be warm. It has not yet arrived. His daughter is in the room visiting. He ambulated around the unit today, stopping x 2 to catch his breath in standing. Recommend SNF upon discharge. He needs to work on endurance, control of descent to the chair or bed, and strengthening toward independence. Subjective He is pleasant and cooperative today, even jovial. Pain: RN managing pain. Medical Precautions: No active isolations Proper PPE donned/doffed in accordance with facility standards. Fall Risk: Davila Fall Risk Score: 60 (High Risk) Precautions/Restrictions: Left LE Weight Bearing: Weight Bearing As Tolerated Hip Precautions: Anterior Hip Precautions Lines/Drains/Airways: PIV Overall Cognitive Status: WFL Overall Orientation Status: Oriented x4 Family/Caregiver Present: child(adam) Objective Ambulation Ambulation 1 Assistive device(s) used: front wheeled walker Assist level: Min Assist Distance (ft): 50' x 4 with standing rest breaks. Quality of gait: antalgic, reciprocal stepping, uneven step length, narrow MARISA Transfers/Mobility Sit to stand: Mod Assist Stand to sit: Mod Assist Poor control of descent to the chair. Device(s) used: front wheeled walker Exercises Exercises Hip Flexion: x 10 Knee Long Arc Quad: x 15 Balance: fair Posture: fair Sitting - Static: Modified Independent Sitting - Dynamic: Modified Independent Standing - Static: Min Assist Standing - Dynamic: Min Assist Plan Continue acute PT per plan of care. Safety/Education Safety Safety Devices in place: call light within reach, left in chair, gait belt, and nurse notified Restraints: No Education Education Given To: patient and patient and daughter Education Provided: PT Role, PT Goals, Gait Training, Transfer Training, Equipment, and Fall Prevention Education Education Method: Verbal and Demonstration Barriers to Learning: Hearing Education Outcome: Continued Education Needed Outcome Measures AM-PAC AM-PAC Inpatient Mobility Raw Score (No Stairs) : 12 JH-HLM JH-HLM Score: Walked 25 ft or more (i.e. walked outside of room) Goals Patient Stated Goal: To get stronger, be able to get around better. Encounter Problems Encounter Problems (Active) Mobility Patient will ambulate 50 feet with mod assist and least restrictive device in order to improve safety and independence with mobility. (Progressing) Start: 09/27/23 Expected End: 10/18/23 Patient will ascend and descend 2 stairs with one railing and min assist in order to safely negotiate home. (Not Addressed) Start: 09/27/23 Expected End: 10/18/23 Transfers Patient will perform bed mobility with min assist in order to improve independence and prepare for out of bed mobility. (Not Addressed) Start: 09/27/23 Expected End: 10/18/23 Patient will complete functional transfer with least restrictive device with mod assist in order to prepare for ambulation. (Progressing) Start: 09/27/23 Expected End: 10/18/23 Therapy Time Individual Co-treatment Time In 1230 Time Out 1302 Minutes 32 Brielle Metzger, PT Normal [facility] Progress Note ------- Attestation signed by Amos Nichole MD at 10/05/2023 2:47 PM Doing well s/p thoracentesis. Reduce amio to 400 every day. HF to see. I, Dr. Amos Nichole, saw and evaluated the patient on 10/04/23 I personally obtained the morrow and critical portions of the history and physical exam. I reviewed the labs, imaging studies, and electronic medical record. I reviewed the MARITZA's documentation, and discussed the patient with the MARITZA. I agree with the MARITZA's medical decision making and have edited the note to reflect my clinical findings and my assessment and plan. I performed a substantive portion of the care of this patient. [facility] Interventional Cardiology Progress Note CC: CAD HPI / Interval History: Mr. 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 On 09/18/23, he had total left hip replacement surgery at [facility]. He had a NSTEMI and was transferred to [place], then to [facility] for a PCI. On 09/26/23, he had a PCI with IVL and NORIS placed to ostial RCA, LMCA, ostial and proximal LAD. His ostial LCX SECTIONIZER is heavily calcified- for medical management. Echocardiogram on 09/30/23, with EF of 15-20%. Pleural effusions. EKG was afib, now s/p successful DCC on amiodarone. Tele SR with PVCs. Torsemide and spironolactone restarted, his BPs are in the 90s. He is s/p right thoracentesis for 1 liter of clear gold fluid on 10/02. This morning, he states he is feeling much better. His breathing is improved. He denies chest pain, dyspnea at rest, orthopnea, PND, swelling, palpitations, dizziness, syncope, bleeding. He does have some dyspnea on exertion. On room air with O2 sat 96-97% Assessment/Plan HF NYHA Class [] I [x] II [x] III [] IV NSTEMI/CAD s/p IVL with NORIS to LMCA, ostial RCA, ostial and prox LAD on 09/26/23 - Stable. Denies chest pain. Continue aspirin and plavix without interruption. Apixaban was resumed. Will stop aspirin at discharge and continue plavix and apixaban. Continue atorvastatin, toprol xl, PPI. Cardiac rehab as outpatient once he has rehab for his left hip. 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 Paredes on October 16 at 2:15pm. HFrEF 25%, acute on chronic HF Stage C, Class II- III - Dyspnea improved after thoracentesis. Appears well compensated and euvolemic. Symptoms improved. Continue Toprol xl. Weight not done today, I/O -3.5 liters since admission. Continue daily weights, strict I/O, sodium restriction. GDMT and diuretic per HF. Life Vest at discharge, discussed with patient and he is agreeable. Afib/ Aflutter/ MAT/PVCs/SVT, s/p DCC on 10/02/23 - In SR. Continue amiodarone 400 mg bid until discharge, then decrease to 400 mg for 1 month, then 200 mg daily. Continue apixaban for CHADS2-VASC of 6. Replace electrolytes to keep K+ > 4, Mg > 2. Pleural effusion - Improved, s/p right thoracentesis for 1 liter of fluid. UTI - Antibiotics completed. Hx CVA - With right ECA stenosis. Continue DAPT and atorvastatin. Recent left hip fracture, s/p left hip arthroplasty on 09/18/23 in [place] - Ortho consulted. Weight bearing as tolerated. X-ray stable. PT/OT. Will need SNF at discharge. To follow up with surgeon in [place]. HLD - Continue atorvastatin. LDL 39. HTN - Controlled. Had been running low. Continue Toprol xl. Add GDMT as BP tolerates. Debility - PT/OT. Will need SNF at discharge. Discharge likely tomorrow. Goals of care - Palliative care consulted and following. Discussed with Dr. Nichole. Follow up arranged with Dr. Paredes, his primary box sealing inspector, on October 16 at 2:15. Will need SNF at discharge. Medications: amiodarone, 400 mg, Oral, BID apixaban, 5 mg, Oral, BID vitamin C, 500 mg, Oral, Daily aspirin, 81 mg, Oral, Daily atorvastatin, 40 mg, Oral, Daily Calcium Carb-Cholecalciferol, 1 tablet, Oral, Daily clopidogrel, 75 mg, Oral, Daily metoprolol succinate XL, 75 mg, Oral, Nightly pantoprazole, 40 mg, Oral, qAM AC polyethylene glycol (PEG) 3350, 17 g, Oral, Daily spironolactone, 12.5 mg, Oral, Daily torsemide, 10 mg, Oral, Daily Infusion Medications: Physical Examination: Vitals: 10/03/23200410/03/23 2330 10/04/23 0350 10/04/23 0745 BP: 97/56 90/56 (!) 95/46 BP Location: Patient Position: Pulse: 89 86 80 Resp: (!) 28 (!) 26 23 Temp: 36.3 ?C (97.4 ?F) 36.4 ?C (97.6 ?F) 36.4 ?C (97.5 ?F) 36.5 ?C (97.7 ?F) TempSrc: Temporal Temporal Temporal Temporal SpO2: 98% 98% 94% Weight: Height: Intake/Output Summary (Last 24 hours) at 10/04/2023 0808 Last data filed at 10/04/2023 0610 Gross per 24 hour Intake 650 ml Output 200 ml Net 450 ml Wt Readings from Last 3 Encounters: 10/03/23 209 lb 10.5 oz (95.1 kg) Physical (more content not included)... [facility] Progress Note .Nutrition update completed. Chart reviewed. Patient to be monitored and followed by the diet clean room technician. Floor RD available upon request. Pt consuming 75% to 99% of meals.DEVORA Lares [facility] XR CHEST 1 VIEWon 10-04-2023 XR CHEST 1 VIEW [facility] 1945 [id number] Exam Date/Time: 10/04/2023 08:48 Procedure: XR CHEST 1 VIEW Ordering Provider: SALCEDO TIMOTHY Reason For Exam: Post thoracentesis AP CHEST X-RAY CLINICAL INDICATION: Post thoracentesis TECHNIQUE: AP portable x-ray of the chest. COMPARISON: 10/01/2023 FINDINGS: Limitations: None. Lines/Tubes: None Heart/Mediastinum: Unchanged Lungs: Small pleural effusions, the right decreased in volume status post thoracentesis, with improved right lung aeration. Stable left retrocardiac airspace opacity. No pneumothorax. Stable left pleural effusion. Bones: Unchanged IMPRESSION: Small residual right pleural effusion following thoracentesis, with no pneumothorax. Stable left retrocardiac airspace opacity and small left pleural effusion. Report Dictated on Electronically Signed By: Toi Lopez MD Electronically Signed Date/Time: 10/04/2023 8:58 AM EDT Normal [facility] XR Chest Single viewon 10-03 [facility] Radiology Study observation (narrative) [facility] XR Chest Single viewOrdered By: Toi Lopez on 10-04-2023 [facility] Work Phone: BODY FLUID CELL COUNT WITH R EFLEX DIFFon 10-03-2023 RBC, BODY FLUID (MANUAL) 515 RBC/uL Normal [facility] Comment on above: Performed By: #### L [id number], [id number], [id number] ####Framing Specialist: KIM GONZALES ([phone])[facility])[address] [place] [address] TYPE OF BODY FLUID Pleural Fluid Normal [facility] Comment on above: Result Comment: RIGH T PLEURAL CAVITY Performed By: #### L [id number], [id number], [id number] ####Framing Specialist: KIM GONZALES ([phone])[facility] ([facility])[address] [place] [address] WBC, BODY FLUID (AUTOMATED) 0.289 x10*3/ul High <=0.005 [facility] Comment on above: Performed By: #### L [id number], [id number], [id number] ####Framing Specialist: KIM GONZALES ([phone])[facility] ([facility])[address] [place] [address] BODY FLUID DIFFERENTIALon CELLS COUNTED TOTAL (#) IN BODY FLUID 200 Normal [facility] Comment on above: Performed By: #### L [id number], [id number], [id number] ####Framing Specialist: KIM GONZALES ([phone])[facility] ([facility])[address] [place] [address] [place] EOSINOPHILS/100 LEUKOCYTES IN BODY FLUID BY MANUAL COUNT 1 % Normal [facility] Comment on above: Performed By: #### L [id number], [id number], [id number] ####Framing Specialist: KIM GONZALES ([phone])[facility] ([facility])[address] [place] [address] [place] LYMPHOCYTES/100 LEUKOCYTES IN BODY FLUID BY MAN CT 42 % Normal [facility] Comment on above: Performed By: #### L [id number], [id number], [id number] ####Framing Specialist: KIM GONZALES ([phone])[facility] ([facility])[address] [place] [address] [place] MESOTHELIAL CELLS/100 LEUKOCYTES IN BODY FLUID BY MANUAL COUNT 1 % Normal [facility] Comment on above: Performed By: #### L [id number], [id number], [id number] ####Framing Specialist: KIM GONZALES ([phone])[facility] ([facility])[address] [place] [address] [place] MONOCYTES+MACROPHAGES /100 WBC IN BODY FLUID BY MAN CT 44 % Normal [facility] Comment on above: Performed By: #### L [id number], [id number], [id number] ####Framing Specialist: KIM GONZALES ([phone])[facility] ([facility])[address] [place] [address] [place] Neutrophils/100 WBC (Bld) 12 % Normal [facility] Comment on above: Performed By: #### L [id number], [id number], [id number] ####Framing Specialist: KIM GONZALES ([phone])[facility] ([facility])[address] [place] [address] [place] OTHER/100 LEUKOCYTES IN BODY FLUID BY MANUAL COUNT 1 % Normal [facility] Comment on above: Result Comment: RINA oVgel COMMENTS: Slide sent for pathology review Performed By: #### L [id number], [id number], [id number] ####Framing Specialist: KIM GONZALES ([phone])[facility] ([facility])[address] [place] [address] CALCIUM, IONIZEDon CALCIUM IONIZED 4.20 mg/dL Low 4.30[facility] Comment on above: Performed By: #### L [id number] ####Framing Specialist: KIM GONZALES ([phone])[facility] ([facility])[address] [place] [address] PH, IONIZED CALCIUM 7.42 Normal 7.31-7.46 [facility] Comment on above: Performed By: #### L AB54 ####Framing Specialist: KIM GONZALES ([phone])[facility] ([facility])[address] [place] [address] CBC W Auto Differential pane l (Bld)on 10-03-2023 Basophils (Bld) [#/Vol] 0.1 10*3/uL 0.0 - 0.2 10*3/uL [facility] Basophils/100 WBC (Bld) 0.4 % 0.0 - 2.0 % [facility] [employer] Eosinophils (Bld) [#/Vol] 0.2 10*3/uL 0.0 - 0.5 10*3/uL [facility] [employer] Eosinophils/100 WBC (Bld) 1.1 % 0.0 - 6.0 % [facility] [employer] Erythrocyte distribution width (RBC) [Ratio] 13.3 % 11.5 - 15.0 % [facility] [employer] Hematocrit (Bld) [Volume fraction] 34.0 % Low 40.0 - 52.0 % [facility] [employer] Hemoglobin (Bld) [Mass/Vol] 10.5 g/dL Low 13.0 - 18.0 g/dL [facility] [employer] Immature granulocytes (Bld) [#/Vol] 0.2 10*3/uL High NINF - 0.1 10*3/uL [facility] Immature granulocytes/100 WBC (Bld) 1.1 % 0.0 - 2.0 % [facility] [employer] Interpretation and review of laboratory results Abnormal [facility] [employer] Lymphocytes (Bld) [#/Vol] 1.4 10*3/uL 1.0 - 4.3 10*3/uL [facility] Lymphocytes/100 WBC (Bld) 10.4 % Low 15.0 - 45.0 % [facility] MCH (RBC) [Entitic mass] 30.5 pg 26.0 - 34.0 pg [facility] MCHC (RBC) [Mass/Vol] 30.9 % 30.5 - 36.0 % [facility] MCV (RBC) [Entitic vol] 98.8 fL 77.0 - 99.0 fL [facility] Monocytes (Bld) [#/Vol] 0.9 10*3/uL 0.0 - 0.9 10*3/uL [facility] Monocytes/100 WBC (Bld) 6.4 % 5.0 - 13.0 % [facility] Neutrophils (Bld) [#/Vol] 11.2 10*3/uL High 1.8 - 7.5 10*3/uL [facility] Neutrophils/100 WBC (Bld) 80.6 % 38.0 - 82.0 % [facility] Nucleated RBC/100 WBC (Bld) [Ratio] 0.0 % [facility] [employer] Platelet mean volume (Bld) [Entitic vol] 10.7 fL 9.0 - 12.7 fL [facility] Platelets (Bld) [#/Vol] 478 10*3/uL High 140 - 440 10*3/uL [facility] RBC (Bld) [#/Vol] 3.44 10*6/uL Low 4.40 - 5.90 10*6/uL [facility] WBC (Bld) [#/Vol] 13.8 10*3/uL High 3.6 - 10.7 10*3/uL [facility] CBC WITH AUTO DIFFERENTIALon 10-03-2023 Basophils (Bld) [#/Vol] 0.1 10*3/uL Normal 0.0-0.2 [facility] Comment on above: Performed By: #### L [id number] ####Framing Specialist: KIM GONZALES ([phone])[address] Basophils/100 WBC (Bld) 0.4 % Normal 0.0-2.0 [facility] Comment on above: Performed By: #### L [id number] ####Framing Specialist: KIM GONZALES ([phone])[facility])[address] [place] [address] Eosinophils (Bld) [#/Vol] 0.2 10*3/uL Normal 0.0-0.5 [facility] Comment on above: Performed By: #### L [id number] ####Framing Specialist: KIM GONZALES ([phone])[address] Eosinophils/100 WBC (Bld) 1.1 % Normal 0.0-6.0 [facility] Comment on above: Performed By: #### L [id number] ####Framing Specialist: KIM GONZALES ([phone])[address] Erythrocyte distribution width (RBC) [Ratio] 13.3 % Normal 11.5-15.0 [facility] Comment on above: Performed By: #### L [id number] ####Framing Specialist: KIM GONZALES ([phone])[address] Hematocrit (Bld) [Volume fraction] 34.0 % Low 40.0-52.0 [facility] Comment on above: Performed By: #### L [id number] ####Framing Specialist: KIM GONZALES ([phone])[address] Hemoglobin (Bld) [Mass/Vol] 10.5 g/dL Low 13.0-18.0 [facility] Comment on above: Performed By: #### L [id number] ####Framing Specialist: KIM GONZALES ([phone])[address] IMMATURE GRANS % 1.1 % Normal 0.0-2.0 [facility] Comment on above: Performed By: #### L [id number] ####Framing Specialist: KIM GONZALES ([phone])[facility])[address] [place] [address] IMMATURE GRANS ABSOLUTE 0.2 10*3/uL High <0.1 [facility] Comment on above: Performed By: #### L [id number] ####Framing Specialist: KIM GONZALES ([phone])[facility])[address] [place] [address] Lymphocytes (Bld) [#/Vol] 1.4 10*3/uL Normal 1.0-4.3 [facility] Comment on above: Performed By: #### L [id number] ####Framing Specialist: KIM GONZALES ([phone])[address] Lymphocytes/100 WBC (Bld) 10.4 % Low 15.0-45.0 [facility] Comment on above: Performed By: #### L [id number] ####Framing Specialist: KIM GONZALES ([phone])[facility])[address] [place] [address] MCH (RBC) [Entitic mass] 30.5 pg Normal 26.0-34.0 [facility] Comment on above: Performed By: #### L [id number] ####Framing Specialist: KIM GONZALES ([phone])[facility])[address] [place] [address] MCHC 30.9 % Normal 30.5-36.0 [facility] Comment on above: Performed By: #### L [id number] ####Framing Specialist: KIM GONZALES ([phone])[facility])[address] [place] [address] MCV (RBC) [Entitic vol] 98.8 fL Normal 77.0-99.0 [facility] Comment on above: Performed By: #### L [id number] ####Framing Specialist: KIM GONZALES ([phone])[facility])[address] [place] [address] Monocytes (Bld) [#/Vol] 0.9 10*3/uL Normal 0.0-0.9 [facility] Comment on above: Performed By: #### L [id number] ####Framing Specialist: KIM GONZALES ([phone])[facility] ([facility])[address] [place] [address] Monocytes/100 WBC (Bld) 6.4 % Normal 5.0-13.0 [facility] Comment on above: Performed By: #### L [id number] ####Framing Specialist: KIM GONZALES ([phone])[facility] ([facility])[address] [place] [address] NEUTROPHILS ABSOLUTE 11.2 10*3/uL High 1.8-7.5 [facility] Comment on above: Performed By: #### L [id number] ####Framing Specialist: KIM GONZALES ([phone])[facility])[address] [place] [address] Neutrophils/100 WBC (Bld) 80.6 % Normal 38.0-82.0 [facility] Comment on above: Performed By: #### L [id number] ####Framing Specialist: KIM GONZALES ([phone])[facility] ([facility])[address] [place] [address] NRBC 0.0 /100 WBCs Normal 0.0-2.0 [facility] Comment on above: Performed By: #### L [id number] ####Framing Specialist: KIM GONZALES ([phone])[facility] ([facility])[address] [place] [address] Platelet mean volume (Bld) [Entitic vol] 10.7 fL Normal 9.0-12.7 [facility] Comment on above: Performed By: #### L [id number] ####Framing Specialist: KIM GONZALES ([phone])[facility] ([facility])[address] [place] [address] Platelets (Bld) [#/Vol] 478 10*3/uL High 140-440 [facility] Comment on above: Performed By: #### L [id number] ####Framing Specialist: KIM GONZALES ([phone])[facility] ([facility])[address] [place] [address] RBC (Bld) [#/Vol] 3.44 10*6/uL Low 4.40-5.90 [facility] Comment on above: Performed By: #### L [id number] ####Framing Specialist: KIM GONZALES ([phone])[facility] ([facility])[address] [place] [address] WBC (Bld) [#/Vol] 13.8 10*3/uL High 3.6-10.7 [facility] Comment on above: Performed By: #### L [id number] ####Framing Specialist: KIM GONZALES ([phone])[facility])[address] [place] [address] COMPREHENSIVE METABOLIC PANE Miguel Angel 10-03-2023 Albumin [Mass/Vol] 3.2 g/dL Low 3.5-5.0 [facility] Comment on above: Performed By: #### L AB17, [id number], [id number] ####Framing Specialist: KIM GONZALES ([phone])[facility] ([facility])[address] [place] [address] ALP [Catalytic activity/Vol] 101 U/L Normal 38-126 [facility] Comment on above: Performed By: #### L AB17, [id number], [id number] ####Framing Specialist: KIM GONZALES ([phone])[facility])[address] [place] [address] ALT [Catalytic activity/Vol] 32 U/L Normal 0-49 [facility] Comment on above: Performed By: #### L AB17, [id number], [id number] ####Framing Specialist: KIM GONZALES ([phone])[facility])[address] [place] [address] Anion gap [Moles/Vol] 6 mmol/L Normal 3-13 [facility] Comment on above: Performed By: #### L AB17, [id number], [id number] ####Framing Specialist: KIM GONZALES ([phone])[facility] ([facility])[address] [place] [address] [place] AST [Catalytic activity/Vol] 30 U/L Normal 15-46 [facility] Comment on above: Performed By: #### L AB17, [id number], [id number] ####Framing Specialist: KIM GONZALES ([phone])[facility] ([facility])[address] [place] [address] Bilirubin [Mass/Vol] 0.8 mg/dL Normal 0.2-1.3 [facility] Comment on above: Performed By: #### L AB17, [id number], [id number] ####Framing Specialist: KIM GONZALES ([phone])[facility] ([facility])[address] [place] [address] Calcium [Mass/Vol] 8.5 mg/dL Normal 8.4-10.4 [facility] Comment on above: Performed By: #### Barry AB17, [id number], [id number] ####Framing Specialist: KIM GONZALES ([phone])[facility] ([facility])[address] [place] [address] [place] Chloride [Moles/Vol] 105 mmol/L Normal 98-107 [facility] Comment on above: Performed By: #### L AB17, [id number], [id number] ####Framing Specialist: KIM GONZALES ([phone])[facility] ([facility])[address] [place] [address] [place] CO2 [Moles/Vol] 26 mmol/L Normal 22-30 [facility] Comment on above: Performed By: #### L AB17, [id number], [id number] ####Framing Specialist: KIM GONZALES ([phone])[facility] ([facility])[address] [place] [address] [place] Creatinine [Mass/Vol] 1.19 mg/dL Normal 0.66-1.25 [facility] Comment on above: Performed By: #### L AB17, [id number], MDQ763 ####Framing Specialist: KIM GONZALES ([phone])[facility])[address] [place] [address] [place] GLOMERULAR FILTRATION RATE ML/MIN/1.73 SQ M.PREDICTED 61.8 mL/min/1.73m*2 Normal >60.0 [facility] Comment on above: Result Comment: Calc ulation based on the Chronic Kidney Disease Epidemiology Collaboration (CKD-EPI) equation refit without adjustment for race Performed By: #### L AB17, [id number], [id number] ####Framing Specialist: KIM GONZALES ([phone])[facility] ([facility])[address] [place] [address] [place] Glucose [Mass/Vol] 130 mg/dL High 70-100 [facility] Comment on above: Performed By: #### L AB17, [id number], [id number] ####Framing Specialist: KIM GONZALES ([phone])[facility])[address] [place] [address] Potassium [Moles/Vol] 4.1 mmol/L Normal 3.5-5.1 [facility] Comment on above: Performed By: #### L AB17, [id number], [id number] ####Framing Specialist: KIM GONZALES ([phone])[facility])[address] [place] [address] Protein [Mass/Vol] 6.7 g/dL Normal 6.3-8.2 [facility] Comment on above: Performed By: #### L AB17, [id number], JMK457 ####Framing Specialist: KIM GONZALES ([phone])[facility] ([facility])[address] [place] [address] [place] Sodium [Moles/Vol] 137 mmol/L Normal 135-145 [facility] Comment on above: Performed By: #### L AB17, [id number], [id number] ####Framing Specialist: KIM GONZALES ([phone])[facility])[address] [place] [address] [place] Urea nitrogen [Mass/Vol] 27 mg/dL High 9-20 [facility] Comment on above: Performed By: #### L AB17, [id number], [id number] ####Framing Specialist: KIM GONZALES ([phone])[facility] ([facility])[address] [place] [address] CULTURE ANAEROBICon 10-03-19 24 CULTURE ANAEROBIC ANAEROBIC CULTURE Re ference No growth at 5 days [ S = SUSCEPTIBLE R = RESISTANT I = INTERMEDIATE S-DD = Susceptible-dose dependent NS = Non-susceptible NO = No Interpretation ] Normal [facility] Comment on above: Performed By: #### L [id number] #### Framing Specialist: KIM GONZALES ([phone]) [facility] ([facility]) [address] [place] [address] CULTURE, AEROBIC BACTERIA WI TH GRAM STAINon 10-03-2023 CULTURE, AEROBIC BACTERIA WITH GRAM STAIN CULTURE Reference No growth at 4 days GRAM STAIN RESULT Reference Few Mononuclear leukocytes per low power field Few Polymorphonuclear leukocytes per low power field No organisms seen [ S = SUSCEPTIBLE R = RESISTANT I = INTERMEDIATE S-DD = Susceptible-dose dependent NS = Non-susceptible NO = No Interpretation ] Normal [facility] Comment on above: Performed By: #### L [id number] ####Framing Specialist: KIM GONZALES ([phone])[facility] ([facility])[address] [place] [address] Calcium.ionized [Moles/Vol]O rdered By: Lucita Mccloud on 10-03-2023 Calcium.ionized (Bld) [Moles/Vol] 4.20 mg/dL Low 4.30 - 5.20 mg/dL [facility] Interpretation and review of laboratory results Abnormal [facility] PH, IONIZED CALCIUM 7.42 7.31 - 7.46 [facility] Comprehensive metabolic 1998 panelon 10-03-2023 Albumin [Mass/Vol] 3.2 g/dL Low 3.5 - 5.0 g/dL [facility] ALP [Catalytic activity/Vol] 101 U/L 38 - 126 U/L [facility] ALT [Catalytic activity/Vol] 32 U/L 0 - 49 U/L [facility] Anion gap [Moles/Vol] 6 mmol/L 3 - 13 mmol/L [facility] AST [Catalytic activity/Vol] 30 U/L 15 - 46 U/L [facility] Bilirubin [Mass/Vol] 0.8 mg/dL 0.2 - 1 .3 mg/dL [facility] Calcium [Mass/Vol] 8.5 mg/dL 8.4 - 10. 4 mg/dL [facility] Chloride [Moles/Vol] 105 mmol/L 98 - 10 7 mmol/L [facility] CO2 [Moles/Vol] 26 mmol/L 22 - 30 mmol/L [facility] Creatinine [Mass/Vol] 1.19 mg/dL 0.66 - 1.25 mg/dL [facility] GFR/1.73 sq M.predicted MDRD (S/P/Bld) [Vol rate/Area] 61.8 mL/min/{1.73_m2} - [facility] th Glucose [Mass/Vol] 130 mg/dL High 70 - 100 mg/dL [facility] Potassium [Moles/Vol] 4.1 mmol/L 3.5 - 5.1 mmol/L [facility] Protein [Mass/Vol] 6.7 g/dL 6.3 - 8.2 g/dL [facility] Sodium [Moles/Vol] 137 mmol/L 135 - 145 mmol/L [facility] Urea nitrogen [Mass/Vol] 27 mg/dL High 9 - 20 mg/dL [facility] Consulton 10-03-2023 Consult Ortho Consult Patient: Eben Cruz Date of : 1945 Acct: [id number] PCP: Iwona Stewart Date of Admission: 09/25/2023 Date of Service: Pt seen/examined on 10/02/2023 Chief Complaint: S/p L anterior hip arthroplasty 09/17 History Of Present Illness: This is a 78 y.o. male status post left anterior hip arthroplasty on 09/[address] Schreiber in [place]. Patient was transferred to [facility] for cardiac cath after surgery. This is a failed attempt therefore he was transferred to [facility] for further cardiac care. He states he is work with physical therapy over the past 3 days. He denies significant hip pain at this time. Denies fever and chills. Denies numbness and tingling to left lower extremity. Daughter states Dr. Schreiber's office called patient today reminding them of suture removal to the left hip. Patient ambulation status: ambulates with: walker Antiplatelets/Anticoagulati on includes: ASA Hx from chart and/or Pt. daughter at bedside Past Medical History: Past Medical History: Diagnosis Date Adverse effect of anesthesia Arthritis Coronary artery disease Delayed emergence from general anesthesia Hypertension Stroke (HCC) Past Surgical History: Past Surgical History: Procedure Laterality Date CARDIAC CATHETERIZATION N/A 09/26/2023 Performed by Amos Nihcole MD at [facility] Cardiac Cath/EP Lab CARDIAC CATHETERIZATION N/A 09/26/2023 Performed by Amos Nichole MD at [facility] Cardiac Cath/EP Lab HERNIA REPAIR INVASIVE VASCULAR PROCEDURE N/A 09/26/2023 Performed by Amos Nichole MD at [facility] Cardiac Cath/EP Lab JOINT REPLACEMENT both hip replacements, L shoulder Home Medications: Prior to Admission medications Medication Sig Start Date End Date Taking? Authorizing Provider amLODIPine (Norvasc) 2.5 MG tablet Take 2.5 mg by mouth daily. Historical Provider, Ascorbic Acid (vitamin C) 100 MG tablet Take 100 mg by mouth daily. Unknown dosage Historical Provider, aspirin 81 MG EC tablet Take 81 mg by mouth daily. Historical Provider, atorvastatin (Lipitor) 40 MG tablet Take 40 mg by mouth daily. Historical Provider, Calcium Carbonate-Vitamin D 500-5 MG-MCG tablet Take by mouth. Historical Provider, metoprolol succinate XL (Toprol-XL) 50 MG 24 hr tablet Take 25 mg by mouth in the morning and 25 mg in the evening. Do not crush or chew.. Historical Provider, zinc gluconate 50 MG tablet Take 50 mg by mouth daily. Historical Provider, Current Hospital Medications: Current Facility-Administered Medications: acetaminophen (Tylenol) tablet 650 mg, 650 mg, Oral, q6h PRN, 650 mg at 10/01/231947 OR acetaminophen (Tylenol) suppository 650 mg, 650 mg, Rectal, q6h PRN, Ashleigh Perkins Puliafico, PAINT TECHNICIAN - [employer] amiodarone (Pacerone) tablet 400 mg, 400 mg, Oral, BID, Elisa Goldstein, PAINT TECHNICIAN - [employer], 400 mg at 10/02/232037 [Held by provider] apixaban (Eliquis) tablet 5 mg, 5 mg, Oral, BID, Ashleigh Perkins [employer], PAINT TECHNICIAN - [employer], 5 mg at 10/02/23845 ascorbic acid (Vitamin C) tablet 500 mg, 500 mg, Oral, Daily, Ashleigh B Puliafico, PAINT TECHNICIAN - [employer], 500 mg at 10/02/23 0846 aspirin EC tablet 81 mg, 81 mg, Oral, Daily, Ashleigh Perkins [employer], PAINT TECHNICIAN - [employer], 81 mg at 10/02/23 0845 atorvastatin (Lipitor) tablet 40 mg, 40 mg, Oral, Daily, Ashleigh B Puliafico, PAINT TECHNICIAN - [employer], 40 mg at 10/02/23 0846 clopidogrel (Plavix) tablet 75 mg, 75 mg, Oral, Daily, Ashleigh Perkins [employer]ia[employer]ico, PAINT TECHNICIAN - [employer], 75 mg at 10/02/23 0845 ipratropium-albuterol (Duo-Neb) 0.5-2.5 mg/3 mL nebulizer solution 3 mL, 3 mL, Nebulization, q8h PRN, Elisa Goldstein, PAINT TECHNICIAN - [employer], 3 mL at 10/02/232155 melatonin tablet 10 mg, 10 mg, Oral, Nightly PRN, Travis Crawford MD, 10 mg at 10/01/231947 metoprolol succinate XL (Toprol-XL) 24 hr tablet 75 mg, 75 mg, Oral, Nightly, Sue Emerson MD, 75 mg at 10/02/232037 naloxone (Narcan) injection 0.4 mg, 0.4 mg, IntraVENous, q5 min PRN, Amos Nichole MD pantoprazole (ProtoNix) EC tablet 40 mg, 40 mg, Oral, qAM AC, Ashleigh Perkins Puliafico, PAINT TECHNICIAN - [employer], 40 mg at 10/01/23 0548 polyethylene glycol (PEG) 3350 (Miralax) packet 17 g, 17 g, Oral, Daily, Yajaira Thakkar, PAINT TECHNICIAN - [employer], 17 g at 09/29/23 0750 promethazine (Phenergan) tablet 12.5 mg, 12.5 mg, Oral, q6h PRN, Cliff Cast Jr., MD [Held by provider] spironolactone (Aldactone) tablet 12.5 mg, 12.5 mg, Oral, Daily, Elisa Goldstein PAINT TECHNICIAN - [employer], 12.5 mg at 09/27/23 0906 [Held by provider] torsemide (Demadex) tablet 10 mg, 10 mg, Oral, Daily, Cliff Cast Jr., MD, 10 mg at 10/01/23 0757 [Held by provider] valsartan (Diovan) tablet 40 mg, 40 mg, Oral, Daily, Elisa Goldstein APRN - [employer], 40 mg at 09/27/23 1045 Allergies: Entresto [sacubitril-valsartan] and Wool alcohol [lanolin] Social History: Social History Socioeconomic History Marital status: Spouse name: Not on file Number of children: Not on file Years of education: Not on file Highest education level: Not on file Occupational History N (more content not included)... Normal [facility] ECG 12-LEADon 10-03-2023 ECG 12-LEAD IMPRESSION: Sinus rhythm Multiple ventricular premature complexes Nonspecific repol abnormality, diffuse leads Compared to ECG 10/02/2023 07:16:43 No significant changes Electronically Signed On 10-03-2023 12:52:50 EDT by Harry Thurman Normal [facility] LaboratoryOrdered By: Espinoza Swab on 10-03-2023 Fluid Nom (Body fld) Pleural Fluid S [facility] Laboratory - Chemistry and C hemistry - challengeon 10-03-2023 Magnesium [Mass/Vol] 2.4 mg/dL High 1.6 - 2 .3 mg/dL [facility] Laboratory - Hematology and Cell countsOrdered By: Renetta Saunders on 10-03-2023 Cells Counted Total (Body fld) [#] 200 [facility] Eosinophils/100 WBC Manual cnt (Body fld) 1 % [facility] Lymphocytes/100 WBC (Bld) 42 % [facility] Macrophages/100 WBC Manual cnt (Body fld) 44 % [facility] Mesothelial cells/100 WBC Manual cnt (Body fld) 1 % [facility] Neutrophils/100 WBC (Body fld) 12 % [facility] Laboratory - Hematology and Cell countsOrdered By: Espinoza Swab on 10-03-2023 RBC Manual cnt (Body fld) [#/Vol] 515 RBC/uL [facility] WBC (Body fld) [#/Vol] 0.289 10*3/uL High NINF [facility] MAGNESIUMon 10-03-2023 Magnesium [Mass/Vol] 2.4 mg/dL High 1.6-2.3 [facility] Comment on above: Performed By: #### L AB17, [id number], [id number] ####Framing Specialist: KIM GONZALES ([phone])[facility] ([facility])[address] [place] [address] No Panel InformationOrdered By: Renetta Saunders on 10-03-2023 Other Cells %, Fluid 1 % [facility] [employer] No Panel InformationOrdered By: Espinoza Swab on 10-03-2023 Interpretation and review of laboratory results Abnormal [facility] No Panel InformationOrdered By: Harry Thurman on 10-03-2023 P [place] 46 degrees [facility] [employer] Work Phone: ME Interval 196 ms [facility] [employer] Work Phone: QRS [place] 8 degrees [facility] [employer] Phone: QRSD Interval 97 ms [facility] [employer] Work Phone: QT Interval 401 ms [facility] [employer] Phone: QTC Interval 455 ms [facility] [employer] Work Phone: T Wave [place] 191 degrees [facility] [employer] Phone: [facility] Work Phone: No Panel Informationon 10-02 CV EPIPHANY [facility] RADIOLOGY SYSTEM [facility] RADIOLOGY SYSTEM [facility] Radiology Study observation (narrative) [facility] Interpretation and review of laboratory results Abnormal [facility] No Panel InformationOrdered By: Carri Todd on 10-03-2023 [facility] [employer] Work Phone: Nursing Noteon 10-03-2023 Nursing Note Patient arrived to Ultrasound department for thoracentesis. History, medications and allergies reviewed. Carri Todd PA-C, in to discuss procedure and informed consent obtained. Patient assisted to sitting on the edge of the bed. Right upper back scanned, marked and prepped in sterile fashion. 1L of clear gold fluid removed. Vaseline guaze dressing applied. Patient tolerated procedure well.Patient transferred back to . Normal [facility] PATHOLOGY REVIEWon PATHOLOGY REVIEW Normal [facility] Comment on above: Result Comment: Rare benign mesothelial cells, mixed inflammation and blood. No malignant cells identified. Darryn López DO. Performed By: #### L [id number], [id number], [id number] ####Framing Specialist: KIM GONZALES ([phone])[facility] ([facility])[address] [place] [address] PHOSPHORUSon 10-03-2023 Phosphate [Mass/Vol] 4.2 mg/dL Normal 2.5-4.5 [facility] Comment on above: Performed By: #### L AB17, [id number], [id number] ####Framing Specialist: KIM GONZALES ([phone])[facility] ([facility])[address] [place] [address] Phosphate [Moles/Vol]on 09-16 Interpretation and review of laboratory results Normal [facility] Phosphate [Mass/Vol] 4.2 mg/dL 2.5 - 4 .5 mg/dL [facility] Progress Noteon 10-03-2023 Progress Note OCCUPATIONAL THERAPY [facility] Treatment Note Name/MRN: Eben Cruz ([id number]) Date of : 1945 Age: 78 y.o. Room/Bed: 1C-130/1C-130 A Discharge Recommendation: Nursing Home Facility Equipment Needed: (defer to next level of care) Prior Level of Function ADL Assistance: Independent Ambulation Assistance: Independent Transfer Assistance: Independent Assessment Pt SOB throughout on 2L O2, sats remain >93%. Mod assist bed mobility and STS. Min assist functional mobility short distance and chair transfer with FWW. Recommend intermediate facility at discharge. Subjective Pt in supine in bed, agreeable to OT. Pt in recliner EOS with friends present. Pain: Pt denies any current pain. Medical Precautions: No active isolations Proper PPE donned/doffed in accordance with facility standards. Fall Risk: Davila Fall Risk Score: 60 (High Risk) Precautions/Restrictions: Left LE Weight Bearing: Weight Bearing As Tolerated Hip Precautions: Anterior Hip Precautions Lines/Drains/Airways: PIV, O2 via nc Family/Caregiver Present: 2 friends present EOS Objective ADLs LE Dressing: Dependent Bed Mobility Supine to sit: Mod Assist Scooting: Mod Assist Transfers/Mobility Sit to stand: Mod Assist Stand to sit: Min Assist Bed to chair: Min Assist Standing balance: Min Assist Device(s) used: front wheeled walker Plan Continue acute OT per plan of care. Safety/Education Safety Safety Devices in place: All fall risk precautions in place, call light within reach, left in chair, and nurse notified Restraints: No Education Education Given To: patient Education Provided: OT Role, Plan of Care, Precautions, Transfer Training, and Fall Prevention Education Education Method: Verbal Barriers to Learning: None Education Outcome: Verbalized Understanding AM-PAC AM-PAC Inpatient Daily Activity Raw Score: 15 ADL Inpatient CMS G-Code Modifier: CK Goals Patient Stated Goal: to get stronger Encounter Problems Encounter Problems (Active) Balance Patient will maintain dynamic standing balance for 3-5 minutes with SBA in order to demonstrate decreased risk of falling. Start: 10/01/23 Expected End: 10/29/23 Bathing Patient will utilize adaptive techniques to bathe body min A. Start: 10/01/23 Expected End: 10/29/23 Dressing Upper Extremities Patient will complete upper body dressing SBA. Start: 10/01/23 Expected End: 10/29/23 Dressings Lower Extremities Patient will dress lower body min A. Start: 10/01/23 Expected End: 10/29/23 Toileting Patient will complete toileting tasks at standard toilet with min assist. Start: 10/01/23 Expected End: 10/29/23 Therapy Time Individual Co-treatment Time In 1407 Time Out 1423 Minutes 16 Yamile Moraes OTR/L [facility] Progress Note PHYSICAL THERAPY [facility] Treatment Note Name/MRN: Eben Cruz ([id number]) Date of : 1945 Age: 78 y.o. Room/Bed: 1C-130/1C-130 A Discharge Recommendation: Nursing Home Facility Equipment Needed: No Other: He has a walker and a cane at home to use. Assessment Pt improving with cognition, Hs reports he is short of breath but improving. Pt on 2L via NC. Pt performs bed mobility with Mod A, sit<>stand c mod A and ambulates c RW c min A. Subjective Name and of pt verified. Pt agreeable to PT Eval and treatment Pain: Pt denies any current pain. Medical Precautions: No active isolations Proper PPE donned/doffed in accordance with facility standards. Fall Risk: Davila Fall Risk Score: 60 (High Risk) Precautions/Restrictions: Left LE Weight Bearing: Weight Bearing As Tolerated Hip Precautions: Anterior Hip Precautions Lines/Drains/Airways: PIV Overall Cognitive Status: WFL Overall Orientation Status: Oriented to Place, Oriented to Situation, and Oriented to Person Family/Caregiver Present: none Objective Ambulation Pt ambs 45ft c RW c min A for steady assist. Pt ambs with downward gaze and MARISA police lieutenant patrol to RW. Tactile cues to bring MARISA within RW and verbal cues for upright posture Transfers/Mobility Sit to stand: Mod Assist Mod A to ascend, verbal cues for hand placement Device(s) used: front wheeled walker Exercises Exercises Hip Flexion: in sitting 2 x 10 Knee Long Arc Quad: 2 x 10 Bed Mobility Supine to sit: Mod Assist Mod A to exit BLE and ascend trunk Plan Continue acute PT per plan of care. Safety/Education Safety Safety Devices in place: call light within reach and left in chair Restraints: N/A Education Pt on educated benfits of remaining upright and use of incentive spirometer Outcome Measures AM-PAC AM-PAC Inpatient Mobility Raw Score (No Stairs) : 12 [facility] Score: Walked 25 ft or more (i.e. walked outside of room) Goals Patient Stated Goal: breath Encounter Problems Encounter Problems (Active) Mobility Patient will ambulate 50 feet with mod assist and least restrictive device in order to improve safety and independence with mobility. (Progressing) Start: 09/27/23 Expected End: 10/18/23 Patient will ascend and descend 2 stairs with one railing and min assist in order to safely negotiate home. (Not Addressed) Start: 09/27/23 Expected End: 10/18/23 Transfers Patient will perform bed mobility with min assist in order to improve independence and prepare for out of bed mobility. (Progressing) Start: 09/27/23 Expected End: 10/18/23 Patient will complete functional transfer with least restrictive device with mod assist in order to prepare for ambulation. (Progressing) Start: 09/27/23 Expected End: 10/18/23 Therapy Time Individual Co-treatment Time In 0750 Time Out 0815 Minutes 25 Marcelo Gray, PT [facility] US GUIDED THORACENTESISon US GUIDED THORACENTESIS Patient Name: EBEN CRUZ : 1945 Exam Date/Time: 10/03/2023 11:23 Procedure: US GUIDED THORACENTESIS Ordering Provider: SALCEDO TIMOTHY Reason For Exam: Bilateral Pleural Effusion R > L; Hypoxia PROCEDURE: Ultrasound-guided right thoracentesis PROCEDURAL PERSONNEL Advanced Practice Provider: Carri Todd PA-C Attending physician, Landen Parker M.D., was available in the department if needed. Indication: Pleural effusion Additional clinical history: None Complications: No immediate complications. IMPRESSION: Successful ultrasound-guided right thoracentesis with drainage of 1050 milliliters of clear gold fluid. PROCEDURE SUMMARY: - Limited thoracic ultrasound - Ultrasound-guided thoracentesis - Additional procedure(s): None PROCEDURE DETAILS: Pre-procedure Consent: Informed consent for the procedure including risks, benefits and alternatives was obtained and time-out was performed prior to the procedure. Preparation: The site was prepared and draped using maximal sterile barrier technique including cutaneous antisepsis. Anesthesia/sedation None Limited thoracic ultrasound Limited thoracic ultrasound was performed using a curved transducer. A safe window for thoracentesis was identified. Moderate to large pleural effusion was seen on the side of aspiration. The contralateral side was not investigated. Thoracentesis Local anesthesia was administered. Ultrasound was used to pick a safe access site. A permanent image was stored. The pleural space was accessed and fluid return confirmed position. The fluid was drained. Catheter placed: 5F Yueh Closure The catheter was removed. A sterile bandage was applied. Post-drainage hemithorax findings: Minimal effusion Additional Details Additional description of procedure: None Equipment details: None Specimens removed: Pleural fluid Estimated blood loss (mL): Less than 10 Report Dictated on Electronically Signed By: Carri Todd PA-C Electronically Signed Date/Time: 10/03/2023 11:51 AM EDT [facility] Vital signsOrdered By: Kimmie Thurman on 10-03-2023 Heart rate 77 /min bpm [facility] [employer] Work Phone: CALCIUM, IONIZEDon 4 CALCIUM IONIZED 4.00 mg/dL Low 4.30-5.20 [facility] Comment on above: Performed By: #### L [id number] ####Framing Specialist: KIM GONZALES ([phone])[facility] ([facility])[address] [place] [address] PH, IONIZED CALCIUM 7.53 High 7.31-7.46 [facility] Comment on above: Performed By: #### L AB54 ####Framing Specialist: KIM GONZALES ([phone])[facility] ([facility] [place] [address] CARECOORDon 10-02-2023 CARECOORD This TCC spoke with Jennifer from admissions at [facility] [phone]. At this time, there is NO auth or P2P pending. [facility] is willing to accept the pt for either IPR or SNF LOC. The only beds they have available at this time is for their IPR. There are no available beds on the SNF side. [facility] states he has skillable needs to qualify for their IPR. TCC reaching out to therapies to see if they feel pt would be able to tolerate IPR. Auth will need to be started once he approaches medical readiness. If a SNF bed becomes available, Jennifer will let the bedside nurse know. Since there is no regular TCC for this floor, the unit phone number was given to Jennifer for her to contact the bedside nurse caring for the pt that day. The nurse can then let the covering TCC know. TCC to watch for medical readiness to start auth and to assist as needed. Normal [facility] CARECOORD Pt having cardiovers ion today and possible thoracentesis tomorrow 10/02. TCC attempted to call Jennifer with admissions at [facility] SN[facility] to check on the P2P pending status. Left HIPAA appropriate message for Jennifer to return call. TCC to follow and assist as needed. Normal [facility] CBC W Auto Differential pane l (Bld)on 10-02-2023 Basophils (Bld) [#/Vol] 0.1 10*3/uL 0.0 - 0.2 10*3/uL [facility] Basophils/100 WBC (Bld) 0.4 % 0.0 - 2.0 % [facility] Eosinophils (Bld) [#/Vol] 0.3 10*3/uL 0.0 - 0.5 10*3/uL [facility] Eosinophils/100 WBC (Bld) 2.5 % 0.0 - 6.0 % [facility] Erythrocyte distribution width (RBC) [Ratio] 13.3 % 11.5 - 15.0 % [facility] Hematocrit (Bld) [Volume fraction] 31.9 % Low 40.0 - 52.0 % [facility] Hemoglobin (Bld) [Mass/Vol] 9.6 g/dL Low 13.0 - 18.0 g/dL [facility] Immature granulocytes (Bld) [#/Vol] 0.1 10*3/uL High NINF - 0.1 10*3/uL [facility] Immature granulocytes/100 WBC (Bld) 1.1 % 0.0 - 2.0 % [facility] Interpretation and review of laboratory results Abnormal [facility] Lymphocytes (Bld) [#/Vol] 1.4 10*3/uL 1.0 - 4.3 10*3/uL [facility] Lymphocytes/100 WBC (Bld) 12.2 % Low 15.0 - 45.0 % [facility] MCH (RBC) [Entitic mass] 29.3 pg 26.0 - 34.0 pg [facility] MCHC (RBC) [Mass/Vol] 30.1 % Low 30.5 - 36.0 % [facility] MCV (RBC) [Entitic vol] 97.3 fL 77.0 - 99.0 fL [facility] Monocytes (Bld) [#/Vol] 1.0 10*3/uL High 0.0 - 0.9 10*3/uL [facility] Monocytes/100 WBC (Bld) 8.3 % 5.0 - 13.0 % [facility] Neutrophils (Bld) [#/Vol] 8.7 10*3/uL High 1.8 - 7.5 10*3/uL [facility] Neutrophils/100 WBC (Bld) 75.5 % 38.0 - 82.0 % [facility] Nucleated RBC/100 WBC (Bld) [Ratio] 0.0 % [facility] Platelet mean volume (Bld) [Entitic vol] 11.1 fL 9.0 - 12.7 fL [facility] Platelets (Bld) [#/Vol] 426 10*3/uL 140 - 440 10*3/uL [facility] RBC (Bld) [#/Vol] 3.28 10*6/uL Low 4.40 - 5.90 10*6/uL [facility] WBC (Bld) [#/Vol] 11.5 10*3/uL High 3.6 - 10.7 10*3/uL [facility] CBC WITH AUTO DIFFERENTIALon 10-02-2023 Basophils (Bld) [#/Vol] 0.1 10*3/uL Normal 0.0-0.2 [facility] Comment on above: Performed By: #### L [id number] ####Framing Specialist: KIM GONZALES ([phone])[facility])[address] [place] [address] Basophils/100 WBC (Bld) 0.4 % Normal 0.0-2.0 [facility] Comment on above: Performed By: #### L [id number] ####Framing Specialist: KIM GONZALES ([phone])[facility])[address] [place] [address] [place] Eosinophils (Bld) [#/Vol] 0.3 10*3/uL Normal 0.0-0.5 [facility] Comment on above: Performed By: #### L [id number] ####Framing Specialist: KIM GONZALES ([phone])[facility])[address] [place] [address] [place] Eosinophils/100 WBC (Bld) 2.5 % Normal 0.0-6.0 [facility] Comment on above: Performed By: #### L [id number] ####Framing Specialist: KIM [id number])[facility] [place] [address] Erythrocyte distribution width (RBC) [Ratio] 13.3 % Normal 11.5-15.0 [facility] Comment on above: Performed By: #### L [id number] ####Framing Specialist: KIM GONZALES ([phone])[facility])[address] [place] [address] Hematocrit (Bld) [Volume fraction] 31.9 % Low 40.0-52.0 [facility] Comment on above: Performed By: #### L [id number] ####Framing Specialist: KIM GONZALES ([phone])[facility])[address] [place] [address] Hemoglobin (Bld) [Mass/Vol] 9.6 g/dL Low 13.0-18.0 [facility] Comment on above: Performed By: #### L [id number] ####Framing Specialist: KIM GONZALES ([phone])[facility])[address] [place] [address] IMMATURE GRANS % 1.1 % Normal 0.0-2.0 [facility] Comment on above: Performed By: #### L [id number] ####Framing Specialist: KIM GONZALES ([phone])[facility])[address] [place] [address] IMMATURE GRANS ABSOLUTE 0.1 10*3/uL High <0.1 [facility] Comment on above: Performed By: #### L [id number] ####Framing Specialist: KIM GONZALES ([phone])[facility])[address] [place] [address] Lymphocytes (Bld) [#/Vol] 1.4 10*3/uL Normal 1.0-4.3 [facility] Comment on above: Performed By: #### L [id number] ####Framing Specialist: KIM GONZALES ([phone])[facility])[address] [place] [address] Lymphocytes/100 WBC (Bld) 12.2 % Low 15.0-45.0 [facility] Comment on above: Performed By: #### L [id number] ####Framing Specialist: KIM GONZALES ([phone])[facility])[address] [place] [address] MCH (RBC) [Entitic mass] 29.3 pg Normal 26.0-34.0 [facility] Comment on above: Performed By: #### L [id number] ####Framing Specialist: KIM GONZALES ([phone])[facility])[address] [place] [address] MCHC 30.1 % Low 30.5-36.0 [facility] Comment on above: Performed By: #### L [id number] ####Framing Specialist: KIM GONZALES ([phone])[facility])[address] [place] [address] MCV (RBC) [Entitic vol] 97.3 fL Normal 77.0-99.0 [facility] Comment on above: Performed By: #### L [id number] ####Framing Specialist: KIM GONZALES ([phone])[facility])[address] [place] [address] Monocytes (Bld) [#/Vol] 1.0 10*3/uL High 0.0-0.9 [facility] Comment on above: Performed By: #### L [id number] ####Framing Specialist: KIM GONZALES ([phone])[facility])[address] [place] [address] Monocytes/100 WBC (Bld) 8.3 % Normal 5.0-13.0 [facility] Comment on above: Performed By: #### L [id number] ####Framing Specialist: KIM GONZALES ([phone])[facility])[address] [place] [address] NEUTROPHILS ABSOLUTE 8.7 10*3/uL High 1.8-7.5 [facility] Comment on above: Performed By: #### L [id number] ####Framing Specialist: KIM GONZALES ([phone])[facility] ([facility])[address] [place] [address] Neutrophils/100 WBC (Bld) 75.5 % Normal 38.0-82.0 [facility] Comment on above: Performed By: #### L [id number] ####Framing Specialist: KIM GONZALES ([phone])[facility] ([facility])[address] [place] [address] NRBC 0.0 /100 WBCs Normal 0.0-2.0 [facility] Comment on above: Performed By: #### L [id number] ####Framing Specialist: KIM GONZALES ([phone])[facility] ([facility])[address] [place] [address] Platelet mean volume (Bld) [Entitic vol] 11.1 fL Normal 9.0-12.7 [facility] Comment on above: Performed By: #### L [id number] ####Framing Specialist: KIM GONZALES ([phone])[facility] ([facility])[address] [place] [address] Platelets (Bld) [#/Vol] 426 10*3/uL Normal 140-440 [facility] Comment on above: Performed By: #### L [id number] ####Framing Specialist: KIM GONZALES ([phone])[facility] ([facility])[address] [place] [address] RBC (Bld) [#/Vol] 3.28 10*6/uL Low 4.40-5.90 [facility] Comment on above: Performed By: #### L [id number] ####Framing Specialist: KIM GONZALES ([phone])[facility] ([facility])[address] [place] [address] [place] WBC (Bld) [#/Vol] 11.5 10*3/uL High 3.6-10.7 [facility] Comment on above: Performed By: #### L [id number] ####Framing Specialist: KIM GONZALES ([phone])[facility])[address] [place] [address] COMPREHENSIVE METABOLIC PANE Miguel Angel 10-02-2023 Albumin [Mass/Vol] 3.0 g/dL Low 3.5-5.0 [facility] Comment on above: Performed By: #### L [id number], [id number], [id number] ####Framing Specialist: KIM GONZALES ([phone])[facility])[address] [place] [address] ALP [Catalytic activity/Vol] 96 U/L Normal 38-126 [facility] Comment on above: Performed By: #### L [id number], [id number], [id number] ####Framing Specialist: KIM GONZALES ([phone])[facility])[address] [place] [address] ALT [Catalytic activity/Vol] 38 U/L Normal 0-49 [facility] Comment on above: Performed By: #### L [id number], [id number], [id number] ####Framing Specialist: KIM GONZALES ([phone])[facility] ([facility])[address] [place] [address] Anion gap [Moles/Vol] 8 mmol/L Normal 3-13 [facility] Comment on above: Performed By: #### L AB17, [id number], [id number] ####Framing Specialist: KIM GONZALES ([phone])[facility] ([facility])[address] [place] [address] AST [Catalytic activity/Vol] 32 U/L Normal 15-46 [facility] Comment on above: Performed By: #### L [id number], [id number], [id number] ####Framing Specialist: KIM GONZALES ([phone])[facility])[address] [place] [address] Bilirubin [Mass/Vol] 0.7 mg/dL Normal 0.2-1.3 [facility] Comment on above: Performed By: #### L AB17, [id number], [id number] ####Framing Specialist: KIM GONZALES ([phone])[facility])[address] [place] [address] Calcium [Mass/Vol] 8.2 mg/dL Low 8.4-10.4 [facility] Comment on above: Performed By: #### L AB17, [id number], [id number] ####Framing Specialist: KIM GONZALES ([phone])[facility] ([facility])[address] [place] [address] Chloride [Moles/Vol] 105 mmol/L Normal 98-107 [facility] Comment on above: Performed By: #### L AB17, [id number], YPN204 ####Framing Specialist: KIM GONZALES ([phone])[facility] ([facility])[address] [place] [address] CO2 [Moles/Vol] 23 mmol/L Normal 22-30 [facility] Comment on above: Performed By: #### L AB17, [id number], [id number] ####Framing Specialist: KIM GONZALES ([phone])[facility] ([facility])[address] [place] [address] Creatinine [Mass/Vol] 1.12 mg/dL Normal 0.66-1.25 [facility] Comment on above: Performed By: #### L AB17, [id number], [id number] ####Framing Specialist: KIM GONZALES ([phone])[facility] ([facility])[address] [place] [address] [place] GLOMERULAR FILTRATION RATE ML/MIN/1.73 SQ M.PREDICTED 66.4 mL/min/1.73m*2 Normal >60.0 [facility] Comment on above: Result Comment: Calc ulation based on the Chronic Kidney Disease Epidemiology Collaboration (CKD-EPI) equation refit without adjustment for race Performed By: #### L AB17, [id number], [id number] ####Framing Specialist: KIM GONZALES ([phone])[facility] ([facility])[address] [place] [address] [place] Glucose [Mass/Vol] 121 mg/dL High 70-100 [facility] Comment on above: Performed By: #### L AB17, [id number], [id number] ####Framing Specialist: KIM GONZALES ([phone])[facility] ([facility])[address] [place] [address] Potassium [Moles/Vol] 3.9 mmol/L Normal 3.5-5.1 [facility] Comment on above: Performed By: #### L AB17, [id number], [id number] ####Framing Specialist: KIM GONZALES ([phone])[facility] ([facility])[address] [place] [address] Protein [Mass/Vol] 6.2 g/dL Low 6.3-8.2 [facility] Comment on above: Performed By: #### L AB17, [id number], [id number] ####Framing Specialist: KIM GONZALES ([id number])[facility] ([facility])[address] [place] [address] Sodium [Moles/Vol] 136 mmol/L Normal 135-145 [facility] Comment on above: Performed By: #### L AB17, [id number], [id number] ####Framing Specialist: KIM GONZALES ([phone])[facility] ([facility])[address] [place] [address] Urea nitrogen [Mass/Vol] 29 mg/dL High 9-20 [facility] Comment on above: Performed By: #### L AB17, [id number], [id number] ####Framing Specialist: KIM GONZALES ([phone])[facility])[address] [place] [address] Calcium.ionized [Moles/Vol]O rdered By: Severo Hagen on 10-02-2023 Calcium.ionized (Bld) [Moles/Vol] 4.00 mg/dL Low 4.30 - 5.20 mg/dL [facility] Interpretation and review of laboratory results Abnormal [facility] PH, IONIZED CALCIUM 7.53 High 7.31 - 7.46 [facility] Comprehensive metabolic 1998 panelon 10-02-2023 Albumin [Mass/Vol] 3.0 g/dL Low 3.5 - 5.0 g/dL [facility] ALP [Catalytic activity/Vol] 96 U/L 38 - 126 U/L [facility] ALT [Catalytic activity/Vol] 38 U/L 0 - 49 U/L [facility] Anion gap [Moles/Vol] 8 mmol/L 3 - 13 mmol/L [facility] AST [Catalytic activity/Vol] 32 U/L 15 - 46 U/L [facility] Bilirubin [Mass/Vol] 0.7 mg/dL 0.2 - 1 .3 mg/dL [facility] Calcium [Mass/Vol] 8.2 mg/dL Low 8.4 - 10. 4 mg/dL [facility] Chloride [Moles/Vol] 105 mmol/L 98 - 10 7 mmol/L [facility] CO2 [Moles/Vol] 23 mmol/L 22 - 30 mmol/L [facility] Creatinine [Mass/Vol] 1.12 mg/dL 0.66 - 1.25 mg/dL [facility] GFR/1.73 sq M.predicted MDRD (S/P/Bld) [Vol rate/Area] 66.4 mL/min/{1.73_m2} - [facility] th Glucose [Mass/Vol] 121 mg/dL High 70 - 100 mg/dL [facility] Potassium [Moles/Vol] 3.9 mmol/L 3.5 - 5.1 mmol/L [facility] Protein [Mass/Vol] 6.2 g/dL Low 6.3 - 8.2 g/dL [facility] Sodium [Moles/Vol] 136 mmol/L 135 - 145 mmol/L [facility] Urea nitrogen [Mass/Vol] 29 mg/dL High 9 - 20 mg/dL [facility] ECG 12-LEADon 10-02-2023 ECG 12-LEAD IMPRESSION: Probable Typical Atrial flutter with pvariable block and occasional PVCs Nonspecific repol abnormality Electronically Signed On 10-02-2023 21:46:46 EDT by Alexander Padilla [facility] IDNon 10-02-2023 IDN Problem: Knowledge D eficit Goal: Patient/family/caregiver demonstrates understanding of disease process, treatment plan, medications, and discharge instructions Outcome: Progressing Problem: Potential for Compromised Skin Integrity Goal: Skin Integrity is Maintained or Improved Outcome: Progressing Problem: Potential for Compromised Skin Integrity Goal: Nutritional status is improving Outcome: Progressing Normal [facility] - Chemistry and C hemistry - challengeon 10-02-2023 Magnesium [Mass/Vol] 2.3 mg/dL 1.6 - 2 .3 mg/dL [facility] [employer] MAGNESIUMon 10-02-2023 Magnesium [Mass/Vol] 2.3 mg/dL Normal 1.6-2.3 [facility] [employer] [facility] Comment on above: Performed By: #### L AB17, [id number], [id number] ####Framing Specialist: KIM GONZALES ([phone])[facility] ([facility])[address] [place] [address] [place] Magnesium [Mass/Vol]on 10-01 Interpretation and review of laboratory results Normal [facility] [employer] No Panel InformationOrdered By: Nereyda Padilla on 10-02-[address] [place] [address] [facility] Work Phone: ME Interval [address] [facility] Work Phone: QRS [place] [address] [facility] Work Phone: QRSD Interval [address] [facility] Work Phone: QT Interval [address] [facility] Work Phone: QTC Interval [address] [facility] Work Phone: T Wave [place] [address] [facility] Work Phone: [facility] Work Phone: No Panel Informationon 10-01 CV EPIPHANY [facility] [employer] CV HEMO [facility] [employer] Interpretation and review of laboratory results Abnormal [facility] [employer] [facility] [employer] PHOSPHORUSon 10-02-2023 Phosphate [Mass/Vol] 4.7 mg/dL High 2.5-4.5 [facility] Comment on above: Performed By: #### L AB17, [id number], [id number] ####Framing Specialist: KIM GONZALES ([phone])[facility] ([facility])[address] [place] [address] [place] Phosphate [Moles/Vol]on 09-16 Phosphate [Mass/Vol] 4.7 mg/dL High 2.5 - 4 .5 mg/dL [facility] [employer] Progress Noteon 10-02-2023 Progress Note Apparently patient h ad a recent hip replacement 09/17 at [facility]. Patient daughter and nursing department here at [facility] were reached out by [facility] ortho care nurses requesting suture removal. His surgeon at [facility] is Dr. Iwona Schreiber. [phone] is the office number. 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 [facility] Progress Note .Nutrition update completed. Chart reviewed. Patient to be monitored and followed by the diet clean room technician. 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 male with chief complaint of: coronary artery disease Reason Palliative Following: Goals of Care Plan: Follow Peripherally Code Status: Full Code Medications: Palliative Care Not Managing any Medications Nursing: Nursing Home Care Social Work: No Unmet Needs Spiritual Care: Community Clergy Following Pharmacy: No Unmet Needs Psychology/Psychiatry: No Unmet Needs [facility] Progress Note PHYSICAL THERAPY [facility] Treatment Note Name/MRN: Eben Cruz ([id number]) Date of : 1945 Age: 78 y.o. Room/Bed: 1C-130/1C-130 A Discharge Recommendation: Nursing Home Facility Equipment Needed: No Other: He has a walker and a cane at home to use. Prior Level of Function ADL Assistance: Independent Ambulation Assistance: Device(s) used: cane Transfer Assistance: Independent Assessment Mr. Cruz is more awake and alert today. He is to have a procedure in a couple of hours and is NPO at this time. He is unable to tell me what procedure he will be having. He is willing to ambulate with me today, is on O2 via NC and the heart monitor. He does hold his breath and is short of breath upon sitting, needed to sit for a few minutes before he could ambulate. Had him concentrate on his breathing during slow ambulation. He was able to ambulate 30' x 3 with FWW and min assist. He remains at SNF level for discharge. Subjective He is alert and cooperative. Willing to sit in the chair for a while after ambulating. Glad to be up and moving. Pain: RN managing pain. Medical Precautions: No active isolations Proper PPE donned/doffed in accordance with facility standards. Fall Risk: Davila Fall Risk Score: 60 (High Risk) Precautions/Restrictions: Left LE Weight Bearing: Weight Bearing As Tolerated Hip Precautions: Anterior Hip Precautions Lines/Drains/Airways: PIV Overall Cognitive Status: some difficulty with memory, but more alert today than past sessions. Overall Orientation Status: Oriented to Place, Oriented to Time, Oriented to Situation, and Oriented to Person Family/Caregiver Present: none Objective Ambulation Ambulation 1 Assistive device(s) used: front wheeled walker Assist level: Min Assist Distance (ft): 30' Quality of gait: antalgic, reciprocal stepping, narrow MARISA, slow evan Ambulation 2 Assistive device(s) used: front wheeled walker Assist level: Min Assist Distance (ft): 31' Quality of gait: shuffling, narrow MARISA, slow evan Ambulation 3 Assistive device(s) used: front wheeled walker Assist level: Min Assist Distance (ft): 32' Quality of gait: antalgic, slow evan Transfers/Mobility Sit to stand: Mod Assist Stand to sit: Mod Assist Poor eccentric control to sit in the chair. Device(s) used: none Bed Mobility Supine to sit: Mod Assist Sit to supine: Min Assist Balance: fair + Posture: fair Sitting - Static: Independent Sitting - Dynamic: Supervision Standing - Static: Min Assist Standing - Dynamic: Mod Assist Plan Continue acute PT per plan of care. Safety/Education Safety Safety Devices in place: call light within reach, left in chair, gait belt, patient at risk for falls, and nurse notified Restraints: No Education Education Given To: patient Education Provided: PT Role, PT Goals, Gait Training, Transfer Training, Fall Prevention Education, and Discharge Recommendations Education Method: Verbal and Demonstration Barriers to Learning: Hearing Education Outcome: Verbalized Understanding Outcome Measures AM-PAC AM-PAC Inpatient Mobility Raw Score (No Stairs) : 12 JH-HLM JH-HLM Score: Walked 25 ft or more (i.e. walked outside of room) Goals Patient Stated Goal: To feel better. Encounter Problems Encounter Problems (Active) Mobility Patient will ambulate 50 feet with mod assist and least restrictive device in order to improve safety and independence with mobility. (Progressing) Start: 09/27/23 Expected End: 10/18/23 Patient will ascend and descend 2 stairs with one railing and min assist in order to safely negotiate home. (Progressing) Start: 09/27/23 Expected End: 10/18/23 Transfers Patient will perform bed mobility with min assist in order to improve independence and prepare for out of bed mobility. (Progressing) Start: 09/27/23 Expected End: 10/18/23 Patient will complete functional transfer with least restrictive device with mod assist in order to prepare for ambulation. (Progressing) Start: 09/27/23 Expected End: 10/18/23 Therapy Time Individual Co-treatment Time In 0800 Time Out 0820 Minutes 20 Brielle Metzger, PT Normal [facility] Vital signsOrdered By: Conor Padilla on 10-02-2023 Heart rate 110 /min bpm [facility] [employer] Work Phone: XR CHEST LATERAL DECUBITUSon 10-02-2023 XR CHEST LATERAL DECUBITUS Patient Name: EBEN CRUZ : 1945 Exam Date/Time: 10/02/2023 17:59 Procedure: XR CHEST LATERAL DECUBITUS Ordering Provider: MORRISON SHANNON Reason For Exam: PLEURAL EFFUSION Portable decubitus chest radiographs CLINICAL INDICATION: Evaluate for pleural effusion. COMPARISON: 10/01/2023 chest radiograph is used for correlation. TECHNIQUE: Right side up and left side up decubitus views of chest were obtained. IMPRESSION: 1. Lines/ tubes/ devices: None. 2. Lungs and Pleura: Small bilateral layered pleural effusions are identified. No parenchymal consolidation is evident. 3. Heart and mediastinum: Normal cardiomediastinal margin. 4. Bones: Thoracic degenerative spondylosis. Severe right shoulder osteoarthritis. Left shoulder arthroplasty. Report Dictated on Electronically Signed By: Chet Ozuna DO Electronically Signed Date/Time: 10/02/2023 6:01 PM EDT Normal [facility] XR Chest AP lateral-decubitu son 10-02-2023 [facility] Radiology Study observation (narrative) [facility] XR HIP 2 OR 3 VW LEFTon - XR HIP 2 OR 3 VW LEFT Patient Name: [facility]Z [facility] 1945 [id number] Exam Date/Time: 10/02/2023 20:27 Procedure: XR HIP 2 OR 3 VW LEFT Ordering Provider: NICHOLE KEVIN Reason For Exam: pain/Reduced ROM/hx trauma INDICATION: 78-year-old male; reduced range of motion; trauma; INPATIENT VIEWS: Pelvis AP, AP left hip, crosstable lateral view left hip-3 images COMPARISON: No comparison exam FINDINGS: There is a right total hip arthroplasty with portions of the femur stem excluded from [id number]. There is a total left hip arthroplasty which appears intact without dislocation. There is no surrounding lucency to suggest loosening. There are degenerative changes of the lower lumbar spine with narrowing of both SI joints. There is no discrete fracture. IMPRESSION: 1. No evidence for fracture or dislocation of the left hip. 2. Bilateral total hip arthroplasty. Report Dictated on Electronically Signed By: Ora Cornell MD Electronically Signed Date/Time: 10/02/2023 8:51 PM EDT Normal [facility] XR Hip - left 3 Viewson 09-16 [facility] Radiology Study observation (narrative) [facility] CALCIUM, IONIZEDon CALCIUM IONIZED 3.90 mg/dL Low 4.30-5.20 [facility] Comment on above: Performed By: #### L [id number] ####Framing Specialist: KIM GONZALES ([phone])[facility] ([facility])[address] [place] [address] PH, IONIZED CALCIUM 7.45 Normal 7.31-7.46 [facility] Comment on above: Performed By: #### L AB54 ####Framing Specialist: KIM GONZALES ([phone])[facility] ([facility])[address] [place] [address] CARECOORDon 10-01-2023 [place] Updated notes placed to [facility] per [facility] request. Await review and response regarding ability to accept. TCC notified. Normal [facility] MILY Spoke with Jennifer at [facility] at [phone] regarding auth status. Jennifer states [id number] is still pending. Jennifer states she should know by the end of the day the results of p2p. Tasked HYDROSTATIC TUBING TESTER to send most recent PT/OT notes and MD notes. TCC to follow. Normal [facility] CBC W Auto Differential pane l (Bld)on 10-01-2023 Basophils (Bld) [#/Vol] 0.1 10*3/uL 0.0 - 0.2 10*3/uL [facility] [employer] Basophils/100 WBC (Bld) 0.4 % 0.0 - 2.0 % [facility] [employer] Eosinophils (Bld) [#/Vol] 0.3 10*3/uL 0.0 - 0.5 10*3/uL [facility] [employer] Eosinophils/100 WBC (Bld) 2.3 % 0.0 - 6.0 % [facility] [employer] Erythrocyte distribution width (RBC) [Ratio] 13.3 % 11.5 - 15.0 % [facility] [employer] Hematocrit (Bld) [Volume fraction] 33.6 % Low 40.0 - 52.0 % [facility] [employer] Hemoglobin (Bld) [Mass/Vol] 10.6 g/dL Low 13.0 - 18.0 g/dL [facility] [employer] Immature granulocytes (Bld) [#/Vol] 0.2 10*3/uL High NINF - 0.1 10*3/uL [facility] [employer] Immature granulocytes/100 WBC (Bld) 1.4 % 0.0 - 2.0 % [facility] [employer] Interpretation and review of laboratory results Abnormal [facility] [employer] Lymphocytes (Bld) [#/Vol] 1.6 10*3/uL 1.0 - 4.3 10*3/uL [facility] [employer] Lymphocytes/100 WBC (Bld) 12.9 % Low 15.0 - 45.0 % [facility] [employer] MCH (RBC) [Entitic mass] 30.5 pg 26.0 - 34.0 pg [facility] [employer] MCHC (RBC) [Mass/Vol] 31.5 % 30.5 - 36.0 % [facility] [employer] MCV (RBC) [Entitic vol] 96.8 fL 77.0 - 99.0 fL [facility] [employer] Monocytes (Bld) [#/Vol] 0.9 10*3/uL 0.0 - 0.9 10*3/uL [facility] Monocytes/100 WBC (Bld) 7.4 % 5.0 - 13.0 % [facility] Neutrophils (Bld) [#/Vol] 9.2 10*3/uL High 1.8 - 7.5 10*3/uL [facility] Neutrophils/100 WBC (Bld) 75.6 % 38.0 - 82.0 % [facility] [employer] Nucleated RBC/100 WBC (Bld) [Ratio] 0.0 % [facility] [employer] Platelet mean volume (Bld) [Entitic vol] 10.7 fL 9.0 - 12.7 fL [facility] [employer] Platelets (Bld) [#/Vol] 451 10*3/uL High 140 - 440 10*3/uL [facility] RBC (Bld) [#/Vol] 3.47 10*6/uL Low 4.40 - 5.90 10*6/uL [facility] WBC (Bld) [#/Vol] 12.2 10*3/uL High 3.6 - 10.7 10*3/uL [facility] CBC WITH AUTO DIFFERENTIALon 10-01-2023 Basophils (Bld) [#/Vol] 0.1 10*3/uL Normal 0.0-0.2 [facility] [employer] [facility] Comment on above: Performed By: #### L [id number] ####Framing Specialist: KIM GONZALES ([phone])[address] Basophils/100 WBC (Bld) 0.4 % Normal 0.0-2.0 [facility] [employer] [facility] Comment on above: Performed By: #### L [id number] ####Framing Specialist: KIM GONZALES ([phone])[facility])[address] [place] [address] Eosinophils (Bld) [#/Vol] 0.3 10*3/uL Normal 0.0-0.5 [facility] Comment on above: Performed By: #### L [id number] ####Framing Specialist: KIM GONZALES ([phone])[facility])[address] [place] [address] Eosinophils/100 WBC (Bld) 2.3 % Normal 0.0-6.0 [facility] Comment on above: Performed By: #### L [id number] ####Framing Specialist: KIM GONZALES ([phone])[facility])[address] [place] [address] Erythrocyte distribution width (RBC) [Ratio] 13.3 % Normal 11.5-15.0 [facility] Comment on above: Performed By: #### L [id number] ####Framing Specialist: KIM GONZALES ([phone])[address] Hematocrit (Bld) [Volume fraction] 33.6 % Low 40.0-52.0 [facility] Comment on above: Performed By: #### L [id number] ####Framing Specialist: KIM GONZALES ([phone])[address] Hemoglobin (Bld) [Mass/Vol] 10.6 g/dL Low 13.0-18.0 [facility] Comment on above: Performed By: #### L [id number] ####Framing Specialist: KIM GONZALES ([phone])[facility])[address] [place] [address] IMMATURE GRANS % 1.4 % Normal 0.0-2.0 [facility] Comment on above: Performed By: #### L [id number] ####Framing Specialist: KIM GONZALES ([phone])[address] IMMATURE GRANS ABSOLUTE 0.2 10*3/uL High <0.1 [facility] Comment on above: Performed By: #### L [id number] ####Framing Specialist: KIM GONZALES ([phone])[facility])[address] [place] [address] Lymphocytes (Bld) [#/Vol] 1.6 10*3/uL Normal 1.0-4.3 [facility] Comment on above: Performed By: #### L [id number] ####Framing Specialist: KIM GONZALES ([phone])[facility])[address] [place] [address] Lymphocytes/100 WBC (Bld) 12.9 % Low 15.0-45.0 [facility] Comment on above: Performed By: #### L [id number] ####Framing Specialist: KIM GONZALES ([phone])[address] MCH (RBC) [Entitic mass] 30.5 pg Normal 26.0-34.0 [facility] Comment on above: Performed By: #### L [id number] ####Framing Specialist: KIM GONZALES ([phone])[facility])[address] [place] [address] MCHC 31.5 % Normal 30.5-36.0 [facility] Comment on above: Performed By: #### L [id number] ####Framing Specialist: KIM GONZALES ([phone])[address] MCV (RBC) [Entitic vol] 96.8 fL Normal 77.0-99.0 [facility] Comment on above: Performed By: #### L [id number] ####Framing Specialist: KIM GONZALES ([phone])[facility])[address] [place] [address] Monocytes (Bld) [#/Vol] 0.9 10*3/uL Normal 0.0-0.9 [facility] Comment on above: Performed By: #### L [id number] ####Framing Specialist: KIM GONZALES ([phone])[facility])[address] [place] [address] Monocytes/100 WBC (Bld) 7.4 % Normal 5.0-13.0 [facility] Comment on above: Performed By: #### L [id number] ####Framing Specialist: KIM GONZALES ([phone])[facility] ([facility])[address] [place] [address] NEUTROPHILS ABSOLUTE 9.2 10*3/uL High 1.8-7.5 [facility] Comment on above: Performed By: #### L [id number] ####Framing Specialist: KIM GONZALES ([phone])[facility] ([facility])[address] [place] [address] Neutrophils/100 WBC (Bld) 75.6 % Normal 38.0-82.0 [facility] Comment on above: Performed By: #### L [id number] ####Framing Specialist: KIM GONZALES ([phone])[facility] ([facility])[address] [place] [address] NRBC 0.0 /100 WBCs Normal 0.0-2.0 [facility] Comment on above: Performed By: #### L [id number] ####Framing Specialist: KIM GONZALES ([phone])[facility])[address] [place] [address] Platelet mean volume (Bld) [Entitic vol] 10.7 fL Normal 9.0-12.7 [facility] Comment on above: Performed By: #### L [id number] ####Framing Specialist: KIM GONZALES ([phone])[facility] ([facility])[address] [place] [address] Platelets (Bld) [#/Vol] 451 10*3/uL High 140-440 [facility] Comment on above: Performed By: #### L [id number] ####Framing Specialist: KIM GONZALES ([phone])[facility] ([facility])[address] [place] [address] RBC (Bld) [#/Vol] 3.47 10*6/uL Low 4.40-5.90 [facility] Comment on above: Performed By: #### L [id number] ####Framing Specialist: KIM GONZALES ([phone])[facility])[address] [place] [address] WBC (Bld) [#/Vol] 12.2 10*3/uL High 3.6-10.7 [facility] Comment on above: Performed By: #### L [id number] ####Framing Specialist: KIM GONZALES ([phone])[facility] ([facility])[address] [place] [address] COMPREHENSIVE METABOLIC PANE Miguel Angel 10-01-2023 Albumin [Mass/Vol] 3.0 g/dL Low 3.5-5.0 [facility] Comment on above: Performed By: #### L [id number], [id number], LAB17 ####Framing Specialist: KIM GONZALES ([phone])[facility] ([facility])[address] [place] [address] ALP [Catalytic activity/Vol] 95 U/L Normal 38-126 [facility] Comment on above: Performed By: #### L [id number], [id number], LAB17 ####Framing Specialist: KIM GONZALES ([phone])[facility] ([facility])[address] [place] [address] ALT [Catalytic activity/Vol] 48 U/L Normal 0-49 [facility] Comment on above: Performed By: #### L [id number], [id number], LAB17 ####Framing Specialist: KIM GONZALES ([phone])[facility] ([facility])[address] [place] [address] Anion gap [Moles/Vol] 7 mmol/L Normal 3-13 [facility] Comment on above: Performed By: #### L AB113, [id number], LAB17 ####Framing Specialist: KIM GONZALES ([phone])[facility])[address] [place] [address] AST [Catalytic activity/Vol] 62 U/L High 15-46 [facility] Comment on above: Performed By: #### L [id number], [id number], LAB17 ####Framing Specialist: KIM GONZALES ([phone])[facility] ([facility])[address] [place] [address] Bilirubin [Mass/Vol] 0.9 mg/dL Normal 0.2-1.3 [facility] Comment on above: Performed By: #### L AB113, [id number], LAB17 ####Framing Specialist: KIM GONZALES ([phone])[facility] ([facility])[address] [place] [address] Calcium [Mass/Vol] 8.4 mg/dL Normal 8.4-10.4 [facility] Comment on above: Performed By: #### Barry AB113, [id number], LAB17 ####Framing Specialist: KIM GONZALES ([phone])[facility] ([facility])[address] [place] [address] Chloride [Moles/Vol] 104 mmol/L Normal 98-107 [facility] Comment on above: Performed By: #### Barry AB113, [id number], LAB17 ####Framing Specialist: KIM GONZALES ([phone])[facility] ([facility])[address] [place] [address] [place] CO2 [Moles/Vol] 26 mmol/L Normal 22-30 [facility] Comment on above: Performed By: #### Barry ABRula, [id number], LAB17 ####Framing Specialist: KIM GONZALES ([phone])[facility] ([facility])[address] [place] [address] Creatinine [Mass/Vol] 1.05 mg/dL Normal 0.66-1.25 [facility] Comment on above: Performed By: #### L AB113, [id number], LAB17 ####Framing Specialist: KIM GONZALES ([phone])[facility])[address] [place] [address] GLOMERULAR FILTRATION RATE ML/MIN/1.73 SQ M.PREDICTED 71.8 mL/min/1.73m*2 Normal >60.0 [facility] Comment on above: Result Comment: Calc ulation based on the Chronic Kidney Disease Epidemiology Collaboration (CKD-EPI) equation refit without adjustment for race Performed By: #### Barry SAN [id number], LAB17 ####Framing Specialist: KIM GONZALES ([phone])[facility])[address] [place] [address] Glucose [Mass/Vol] 108 mg/dL High 70-100 [facility] Comment on above: Performed By: #### Barry SAN [id number], LAB17 ####Framing Specialist: KIM GONZALES ([phone])[facility])[address] [place] [address] Potassium [Moles/Vol] 4.0 mmol/L Normal 3.5-5.1 [facility] Comment on above: Performed By: #### Barry SAN [id number], LAB17 ####Framing Specialist: KIM GONZALES ([phone])[facility])[address] [place] [address] Protein [Mass/Vol] 6.5 g/dL Normal 6.3-8.2 [facility] Comment on above: Performed By: #### Barry SAN [id number], LAB17 ####Framing Specialist: KIM GONZALES ([phone])[facility])[address] [place] [address] Sodium [Moles/Vol] 137 mmol/L Normal 135-145 [facility] Comment on above: Performed By: #### Barry SAN [id number], [id number] ####Framing Specialist: KIM GONZALES ([phone])[facility])[address] [place] [address] [place] Urea nitrogen [Mass/Vol] 31 mg/dL High 9-20 [facility] Comment on above: Performed By: #### Barry SAN [id number], [id number] ####Framing Specialist: KIM GONZALES ([phone])[facility])[address] [place] [address] [place] Calcium.ionized [Moles/Vol]o n 10-01-2023 Calcium.ionized (Bld) [Moles/Vol] 3.90 mg/dL Low 4.30 - 5.20 mg/dL [facility] Interpretation and review of laboratory results Abnormal [facility] PH, IONIZED CALCIUM 7.45 7.31 - 7.46 [facility] Comprehensive metabolic 1998 panelon 10-01-2023 Albumin [Mass/Vol] 3.0 g/dL Low 3.5 - 5.0 g/dL [facility] ALP [Catalytic activity/Vol] 95 U/L 38 - 126 U/L [facility] ALT [Catalytic activity/Vol] 48 U/L 0 - 49 U/L [facility] Anion gap [Moles/Vol] 7 mmol/L 3 - 13 mmol/L [facility] AST [Catalytic activity/Vol] 62 U/L High 15 - 46 U/L [facility] Bilirubin [Mass/Vol] 0.9 mg/dL 0.2 - 1 .3 mg/dL [facility] Calcium [Mass/Vol] 8.4 mg/dL 8.4 - 10. 4 mg/dL [facility] Chloride [Moles/Vol] 104 mmol/L 98 - 10 7 mmol/L [facility] CO2 [Moles/Vol] 26 mmol/L 22 - 30 mmol/L [facility] Creatinine [Mass/Vol] 1.05 mg/dL 0.66 - 1.25 mg/dL [facility] GFR/1.73 sq M.predicted MDRD (S/P/Bld) [Vol rate/Area] 71.8 mL/min/{1.73_m2} - [facility] th Glucose [Mass/Vol] 108 mg/dL High 70 - 100 mg/dL [facility] Potassium [Moles/Vol] 4.0 mmol/L 3.5 - 5.1 mmol/L [facility] Protein [Mass/Vol] 6.5 g/dL 6.3 - 8.2 g/dL [facility] Sodium [Moles/Vol] 137 mmol/L 135 - 145 mmol/L [facility] Urea nitrogen [Mass/Vol] 31 mg/dL High 9 - 20 mg/dL [facility] Consulton 10-01-2023 Consult [facility] Heart & Vascular [place] [facility] Cardiology /Electrophysiology Consult Note Reason for Consult/Chief Complaint: HFrEF Referring provider: Dr. Nichole Established box sealing inspector: Dr. Paredes History of Present Illness: Eben Cruz is a 78 y.o. male known to Dr. 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 HF team asked to see him for HFrEF and concern for low output heart failure. He underwent complex PCI on 09/26/[address] Nichole including NORIS x 3 LM, ostial LAD, and RCA. Lcx SECTIONIZER and heavily calcified without collaterals. LVEDP at the time of the [facility] was 19 mmHg. TTE performed on 09/30/23 demonstrated a moderately dilated LV with severely reduced LV EF of ~ 15%, the RV is mildly dilated with mild to moderate RV systolic dysfunction, 2+ MR and mild aortic stenosis with a DVI of 0.35. and a mean gradient of 11 mmHg. While hospitalized he has been diuresed with a rise in creatitine to 1.2 from his baseline of 0.8 and hypotension. During his stay he has been in and out of atrial fibrillation with RVR, previous converted with IV amiodarone and now back into atrial fibrillation with planned DCCV on 10/02/23. Currently spironolactone and valsartan are on hold due to hypotension. He received a dose of PO torsemide this morning. Is on Apixaban 5 mg BID as well as ASA and switching to Plavix given the addition of Apixaban for afib. On assessment Mr. Cruz is resting up in his chair. Overall reports that he feels okay, has improved during his hospitalization. At this time he has no SOB however does report that over the past few days has had bouts of SOB. Denies CP, nausea, vomiting, abdominal pain. Reports that he LE edema has significantly improved. Assessment/Plan HFrEF: ICM: NYHA Class III - ICM s/p PCI of LM, LAD and RCA on 09/26/[address] Nichole - TTE on 09/30/23 with biventricular dysfunction, EF ~ 15%, 2+ MR, mild aortic stenosis, DVI of 0.35, mean gradient of 11 - Today he appears dry and warm. We will plan to hold Torsemide tomorrow given his JVD of 3 - 5 cm - Hypotension precludes us from the addition of any GDMT at this time, will plan to re-evaluate tomorrow for the addition of low dose Valsartan and spironolactone. - Okay to continue BB at this time as he is warm and doesn't appear to be in a low output state MV CAD s/p PCI to LM, LAD and RCA on 09/26/23 Atrial Flutter with 2:1 Block - CHADsVASC of 4 - On Eliquis 5 mg BID and Amio 400 mg BID; is nearly loaded with amio - Plan for DCCV tomorrow; NPO at midnight Pleural Effusion: - On TTE from 09/30/23 had a large > 7 cm L pleural effusion - Will order 2 view CXR to view this pleural effusion seen on TTE, if large enough will consider thoracentesis Medications: amiodarone, 400 mg, Oral, BID apixaban, 5 mg, Oral, BID vitamin C, 500 mg, Oral, Daily aspirin, 81 mg, Oral, Daily atorvastatin, 40 mg, Oral, Daily clopidogrel, 600 mg, Oral, Once [START ON 10/02/2023] clopidogrel, 75 mg, Oral, Daily metoprolol succinate XL, 75 mg, Oral, Nightly pantoprazole, 40 mg, Oral, qAM AC polyethylene glycol (PEG) 3350, 17 g, Oral, Daily [Held by provider] spironolactone, 12.5 mg, Oral, Daily torsemide, 10 mg, Oral, Daily [Held by provider] valsartan, 40 mg, Oral, Daily Infusion Medications: Physical Examination: Vitals: 09/30/23 2214 10/01/23 0340 10/01/23 0733 10/01/23 1115 BP: 106/73 102/71 119/84 104/67 BP Location: Left arm Left arm Left arm Right arm Patient Position: Lying Lying Sitting Sitting Pulse: (!) 132 (!) 125 (!) 128 (!) 135 Resp: Temp: 36.2 ?C (97.2 ?F) 36.6 ?C (97.8 ?F) 36.2 ?C (97.2 ?F) 36.8 ?C (98.2 ?F) TempSrc: Temporal Temporal Temporal Temporal SpO2: 100% 96% 96% 97% Weight: Height: Intake/Output Summary (Last 24 hours) at 10/01/2023 1340 Last data filed at 10/01/2023 1300 Gross per 24 hour Intake -- Output 500 ml Net -500 ml Wt Readings from Last 3 Encounters: 09/30/23 191 lb (86.6 kg) Physical Exam Vitals reviewed. Constitutional: General: He is not in acute distress. Appearance: He is not ill-appearing or toxic-appearing. HENT: Mouth/Throat: Mouth: Mucous membranes are dry. Eyes: General: No scleral icterus. Neck: Comments: JVD 3 - 5 cm Cardiovascular: Rate and Rhythm: Regular rhythm. Tachycardia present. Heart sounds: Murmur heard. Pulmonary: Effort: No respiratory distress. Breath sounds: No wheezing or rales. Comments: Diminished bi basilar breath sounds Abdominal: General: Bowel sounds are normal. Palpations: Abdomen is soft. Tenderness: There is no abdominal tenderness. Musculoskeletal: Right lower leg: No edema. Left lower leg: No edema. Comments: Trace edema with bilateral compression stockings Skin: General: S (more content not included)... Normal [facility] ECG 12-LEADon 10-01-2023 ECG 12-LEAD IMPRESSION: Atrial fibrillation Frequent Ventricular ectopy Repol abnrm suggests ischemia, lateral leads Electronically Signed On 10-01-2023 17:06:54 EDT by Breonna Smith [facility] ECG 12-LEAD IMPRESSION: Atrial fibrillation frequent Ventricular ectopy Borderline repol abnormality, diffuse leads Borderline prolonged QT interval Electronically Signed On 10-01-2023 16:57:23 EDT by Breonna Smith [facility] IDNon 10-01-2023 IDN Problem: Knowledge D eficit Goal: Patient/family/caregiver demonstrates understanding of disease process, treatment plan, medications, and discharge instructions Outcome: Progressing Problem: Potential for Compromised Skin Integrity Goal: Skin Integrity is Maintained or Improved Outcome: Progressing Problem: Potential for Compromised Skin Integrity Goal: Nutritional status is improving Outcome: Progressing Normal [facility] Laboratory - Chemistry and C hemistry - challengeon 10-01-2023 Magnesium [Mass/Vol] 2.4 mg/dL High 1.6 - 2 .3 mg/dL [facility] MAGNESIUMon 10-01-2023 Magnesium [Mass/Vol] 2.4 mg/dL High 1.6-2.3 [facility] Comment on above: Performed By: #### Barry [id number], [id number], [id number] ####Framing Specialist: KIM GONZALES ([phone])[facility] ([facility])[address] [place] [address] No Panel InformationOrdered By: Breonna Smith on 10-01-[address] [place] [address] [facility] Work Phone: ME Interval 0 ms [facility] Work Phone: QRS [place] [address] [facility] Work Phone: QRSD Interval 93 ms [facility] Work Phone: QT Interval [address] [facility] Work Phone: QTC Interval [address] [facility] Work Phone: T Wave [place] 210 degrees [facility] Work Phone: [facility] Work Phone: No Panel Informationon 09-[address] [facility] P [place] [address] [facility] ME Interval 0 ms [facility] QRS [place] -[address] [facility] QRSD Interval [address] [facility] QT Interval [address] [facility] QTC Interval 490 ms [facility] T Wave [place] 0 degrees [facility] CV EPIPHANY [facility] Interpretation and review of laboratory results Abnormal [facility] PHOSPHORUSon 10-01-2023 Phosphate [Mass/Vol] 4.3 mg/dL Normal 2.5-4.5 [facility] Comment on above: Performed By: #### Barry SAN, [id number], [id number] ####Framing Specialist: KIM GONZALES ([phone])[facility])[address] [place] [address] Phosphate [Moles/Vol]on 09-16 Interpretation and review of laboratory results Normal [facility] Phosphate [Mass/Vol] 4.3 mg/dL 2.5 - 4 .5 mg/dL [facility] Progress Noteon 10-01-2023 Progress Note PHYSICAL THERAPY [facility] Treatment Note Name/MRN: Eben Cruz ([id number]) Date of : 1945 Age: 78 y.o. Room/Bed: 1C-130/1C-130 A Discharge Recommendation: Nursing Home Facility Equipment Needed: No Other: He has a walker and a cane at home to use. Prior Level of Function ADL Assistance: Independent Ambulation Assistance: Device(s) used: cane Transfer Assistance: Independent Assessment Pt wanting to get up to chair to eat breakfast. He has been kept NWB, awaiting an order for actual weight bearing status. He is not able to pivot to the chair without putting weight through his left LE, so he has not yet ambulated. He Cannot remember whether he ambulated at his previous facility. He did ambulate 94' with CGA per the notes, with a FWW. He is currently requiring mod. Assist to transfer, and is touching down with his left foot. When explained to him why we are doing this, he answers affirmatively, but does not follow the directions. He is at SNF level for PT. He is a poor historian. Subjective Pt in bed at onset of this session, tried to pivot without weight bearing , but he does bear weight today despite explanation of WB status(keeping him NWB until we get an official order of WB status). He was in the chair at the end of the session with his breakfast tray in front of him, a blanket around him. He is on tele. Pain: Pt denies any current pain. Medical Precautions: No active isolations Proper PPE donned/doffed in accordance with facility standards. Fall Risk: Davila Fall Risk Score: 60 (High Risk) Precautions/Restrictions: Left LE Weight Bearing: Lines/Drains/Airways: IV, O2, tele lines Left hip pain Overall Cognitive Status: unreliable historian Overall Orientation Status: Oriented to Place, Oriented to Situation, and Oriented to Person Family/Caregiver Present: none Objective Ambulation Did not assess this session. Transfers/Mobility Sit to stand: Mod Assist Stand to sit: Min Assist Stand pivot: Mod Assist, unable to maintain NWB as requested. Device(s) used: He required reminders for hand placement and safety. Balance: decreased in standing Posture: fair Sitting - Static: Contact Guard Sitting - Dynamic: Min Assist Standing - Static: Min Assist Standing - Dynamic: Mod Assist Plan Continue acute PT per plan of care. Safety/Education Safety Safety Devices in place: call light within reach, left in chair, gait belt, and nurse notified Restraints: No Education Education Given To: patient Education Provided: PT Role, PT Goals, Transfer Training, Orientation, Equipment, and Discharge Recommendations Education Method: Verbal and Demonstration Barriers to Learning: Hearing, Vision Education Outcome: Verbalized Understanding and Continued Education Needed Outcome Measures AM-PAC AM-PAC Inpatient Mobility Raw Score (No Stairs) : 12 JH-HLM -HLM Score: Static standing (1 or more minutes) Goals Patient Stated Goal: To feel better. Encounter Problems Encounter Problems (Active) Mobility Patient will ambulate 50 feet with mod assist and least restrictive device in order to improve safety and independence with mobility. (Not Addressed) Start: 09/27/23 Expected End: 10/18/23 Patient will ascend and descend 2 stairs with one railing and min assist in order to safely negotiate home. (Not Addressed) Start: 09/27/23 Expected End: 10/18/23 Transfers Patient will perform bed mobility with min assist in order to improve independence and prepare for out of bed mobility. (Not Addressed) Start: 09/27/23 Expected End: 10/18/23 Patient will complete functional transfer with least restrictive device with mod assist in order to prepare for ambulation. (Progressing) Start: 09/27/23 Expected End: 10/18/23 Therapy Time Individual Co-treatment Time In 0800 Time Out 0815 Minutes 15 Brielle Metzger, PT Normal [facility] System [facility] Vital signsOrdered By: Yasmin Smith on 10-01-2023 Heart rate 101 /min bpm [facility] [employer] Work Phone: Vital signson 10-01-2023 Heart rate 117 /min bpm [facility] [employer] XR CHEST 2 VIEWSon 4 XR CHEST 2 VIEWS [facility] 1945 [id number] Exam Date/Time: 10/01/2023 18:33 Procedure: XR CHEST 2 VIEWS Ordering Provider: SALCEDO TIMOTHY Reason For Exam: Hypoxia and pleural effusion CHEST X-RAY TWO VIEWS CLINICAL INDICATION: Hypoxia and pleural effusion TECHNIQUE: Frontal and lateral views of the chest. COMPARISON: 09/29/2023 FINDINGS: Moderate to large pleural effusions bilaterally. No vascular congestion or focal infiltrate. Heart size normal. IMPRESSION: 1. Moderate to large bilateral pleural effusions. Report Dictated on Electronically Signed By: Vidal Dutta MD Electronically Signed Date/Time: 10/01/2023 7:19 PM EDT Normal [facility] XR Chest 2 Viewson 4 [facility] Radiology Study observation (narrative) [facility] XR Chest 2 ViewsOrdered By: Vidal Dutta on 10-01-2023 [facility] Work Phone: C-REACTIVE PROTEINon 024 CRP [Mass/Vol] 49.5 mg/L High <10.0 [facility] Comment on above: Performed By: #### L AB17, [id number], [id number], [id number] ####Framing Specialist: KIM GONZALES ([phone])[facility] ([facility])[address] [place] [address] CALCIUM, IONIZEDon 4 CALCIUM IONIZED 4.20 mg/dL Low 4.30-5.20 [facility] Comment on above: Performed By: #### L [id number] ####Framing Specialist: KIM GONZALES ([phone])[facility] ([facility])[address] [place] [address] PH, IONIZED CALCIUM 7.47 High 7.31-7.46 [facility] Comment on above: Performed By: #### L [id number] ####Framing Specialist: KIM GONZALES ([phone])[facility] ([facility])[address] [place] [address] CBC W Auto Differential pane l (Bld)Ordered By: Pau Masterson on 09-30-2023 Basophils (Bld) [#/Vol] 0.1 10*3/uL 0.0 - 0.2 10*3/uL [facility] Basophils/100 WBC (Bld) 0.4 % 0.0 - 2.0 % [facility] Eosinophils (Bld) [#/Vol] 0.3 10*3/uL 0.0 - 0.5 10*3/uL [facility] Eosinophils/100 WBC (Bld) 2.1 % 0.0 - 6.0 % [facility] Erythrocyte distribution width (RBC) [Ratio] 13.4 % 11.5 - 15.0 % [facility] Hematocrit (Bld) [Volume fraction] 34.8 % Low 40.0 - 52.0 % [facility] Hemoglobin (Bld) [Mass/Vol] 10.8 g/dL Low 13.0 - 18.0 g/dL [facility] Immature granulocytes (Bld) [#/Vol] 0.2 10*3/uL High NINF - 0.1 10*3/uL [facility] Immature granulocytes/100 WBC (Bld) 1.6 % 0.0 - 2.0 % [facility] Interpretation and review of laboratory results Abnormal [facility] Lymphocytes (Bld) [#/Vol] 1.7 10*3/uL 1.0 - 4.3 10*3/uL [facility] Lymphocytes/100 WBC (Bld) 12.5 % Low 15.0 - 45.0 % [facility] MCH (RBC) [Entitic mass] 29.8 pg 26.0 - 34.0 pg [facility] MCHC (RBC) [Mass/Vol] 31.0 % 30.5 - 36.0 % [facility] MCV (RBC) [Entitic vol] 96.1 fL 77.0 - 99.0 fL [facility] Monocytes (Bld) [#/Vol] 1.1 10*3/uL High 0.0 - 0.9 10*3/uL [facility] Monocytes/100 WBC (Bld) 8.3 % 5.0 - 13.0 % [facility] Neutrophils (Bld) [#/Vol] 10.2 10*3/uL High 1.8 - 7.5 10*3/uL [facility] Neutrophils/100 WBC (Bld) 75.1 % 38.0 - 82.0 % [facility] Nucleated RBC/100 WBC (Bld) [Ratio] 0.0 % [facility] Platelet mean volume (Bld) [Entitic vol] 10.7 fL 9.0 - 12.7 fL [facility] Platelets (Bld) [#/Vol] 482 10*3/uL High 140 - 440 10*3/uL [facility] RBC (Bld) [#/Vol] 3.62 10*6/uL Low 4.40 - 5.90 10*6/uL [facility] WBC (Bld) [#/Vol] 13.5 10*3/uL High 3.6 - 10.7 10*3/uL [facility] CBC WITH AUTO DIFFERENTIALon 09-30-2023 Basophils (Bld) [#/Vol] 0.1 10*3/uL Normal 0.0-0.2 [facility] Comment on above: Performed By: #### L [id number] ####Framing Specialist: KIM GONZALES ([phone])[facility])[address] [place] [address] Basophils/100 WBC (Bld) 0.4 % Normal 0.0-2.0 [facility] Comment on above: Performed By: #### L [id number] ####Framing Specialist: KIM GONZALES ([phone])[facility])[address] [place] [address] Eosinophils (Bld) [#/Vol] 0.3 10*3/uL Normal 0.0-0.5 [facility] Comment on above: Performed By: #### L [id number] ####Framing Specialist: KIM GONZALES ([phone])[facility])[address] [place] [address] Eosinophils/100 WBC (Bld) 2.1 % Normal 0.0-6.0 [facility] Comment on above: Performed By: #### L [id number] ####Framing Specialist: KIM GONZALES ([phone])[facility])[address] [place] [address] Erythrocyte distribution width (RBC) [Ratio] 13.4 % Normal 11.5-15.0 [facility] Comment on above: Performed By: #### L [id number] ####Framing Specialist: KIM GONZALES ([phone])[facility])[address] [place] [address] [place] Hematocrit (Bld) [Volume fraction] 34.8 % Low 40.0-52.0 [facility] Comment on above: Performed By: #### L [id number] ####Framing Specialist: KIM GONZALES ([phone])[facility])[address] [place] [address] Hemoglobin (Bld) [Mass/Vol] 10.8 g/dL Low 13.0-18.0 [facility] Comment on above: Performed By: #### L [id number] ####Framing Specialist: KIM GONZALES ([phone])[facility])[address] [place] [address] IMMATURE GRANS % 1.6 % Normal 0.0-2.0 [facility] Comment on above: Performed By: #### L [id number] ####Framing Specialist: KIM GONZALES ([phone])[facility])[address] [place] [address] IMMATURE GRANS ABSOLUTE 0.2 10*3/uL High <0.1 [facility] Comment on above: Performed By: #### L [id number] ####Framing Specialist: KIM GONZALES ([phone])[facility])[address] [place] [address] Lymphocytes (Bld) [#/Vol] 1.7 10*3/uL Normal 1.0-4.3 [facility] Comment on above: Performed By: #### L [id number] ####Framing Specialist: KIM GONZALES ([phone])[facility])[address] [place] [address] Lymphocytes/100 WBC (Bld) 12.5 % Low 15.0-45.0 [facility] Comment on above: Performed By: #### L [id number] ####Framing Specialist: KIM GONZALES ([phone])[facility])[address] [place] [address] MCH (RBC) [Entitic mass] 29.8 pg Normal 26.0-34.0 [facility] Comment on above: Performed By: #### L [id number] ####Framing Specialist: KIM GONZALES ([phone])[facility])[address] [place] [address] MCHC 31.0 % Normal 30.5-36.0 [facility] Comment on above: Performed By: #### L [id number] ####Framing Specialist: KIM GONZALES ([phone])[facility])[address] [place] [address] MCV (RBC) [Entitic vol] 96.1 fL Normal 77.0-99.0 [facility] Comment on above: Performed By: #### L [id number] ####Framing Specialist: KIM GONZALES ([phone])[facility])[address] [place] [address] Monocytes (Bld) [#/Vol] 1.1 10*3/uL High 0.0-0.9 [facility] Comment on above: Performed By: #### L [id number] ####Framing Specialist: KIM GONZALES ([phone])[facility])[address] [place] [address] Monocytes/100 WBC (Bld) 8.3 % Normal 5.0-13.0 [facility] Comment on above: Performed By: #### L [id number] ####Framing Specialist: KIM GONZALES ([phone])[facility])[address] [place] [address] NEUTROPHILS ABSOLUTE 10.2 10*3/uL High 1.8-7.5 [facility] Comment on above: Performed By: #### L [id number] ####Framing Specialist: KIM GONZALES ([phone])[facility])[address] [place] [address] Neutrophils/100 WBC (Bld) 75.1 % Normal 38.0-82.0 [facility] Comment on above: Performed By: #### L [id number] ####Framing Specialist: KIM GONZALES ([phone])[facility] ([facility])[address] [place] [address] NRBC 0.0 /100 WBCs Normal 0.0-2.0 [facility] Comment on above: Performed By: #### L [id number] ####Framing Specialist: KIM GONZALES ([phone])[facility])[address] [place] [address] Platelet mean volume (Bld) [Entitic vol] 10.7 fL Normal 9.0-12.7 [facility] Comment on above: Performed By: #### L [id number] ####Framing Specialist: KIM GONZALES ([phone])[facility] ([facility])[address] [place] [address] Platelets (Bld) [#/Vol] 482 10*3/uL High 140-440 [facility] Comment on above: Performed By: #### L [id number] ####Framing Specialist: KIM GONZALES ([phone])[facility] ([facility])[address] [place] [address] RBC (Bld) [#/Vol] 3.62 10*6/uL Low 4.40-5.90 [facility] Comment on above: Performed By: #### L [id number] ####Framing Specialist: KIM GONZALES ([phone])[facility])[address] [place] [address] WBC (Bld) [#/Vol] 13.5 10*3/uL High 3.6-10.7 [facility] Comment on above: Performed By: #### L [id number] ####Framing Specialist: KIM GONZALES ([phone])[facility])[address] [place] [address] COMPREHENSIVE METABOLIC PANE Miguel Angel 09-30-2023 Albumin [Mass/Vol] 3.3 g/dL Low 3.5-5.0 [facility] Comment on above: Performed By: #### L [id number], [id number], [id number], [id number] ####Framing Specialist: KIM GONZALES ([phone])[facility])[address] [place] [address] ALP [Catalytic activity/Vol] 96 U/L Normal 38-126 [facility] Comment on above: Performed By: #### L AB17, [id number], [id number], [id number] ####Framing Specialist: KIM GONZALES ([phone])[facility] ([facility])[address] [place] [address] ALT [Catalytic activity/Vol] 59 U/L High 0-49 [facility] Comment on above: Performed By: #### L AB17, [id number], [id number], [id number] ####Framing Specialist: KIM GONZALES ([phone])[facility] ([facility])[address] [place] [address] Anion gap [Moles/Vol] 9 mmol/L Normal 3-13 [facility] Comment on above: Performed By: #### L AB17, [id number], [id number], [id number] ####Framing Specialist: KIM GONZALES ([phone])[facility] ([facility])[address] [place] [address] AST [Catalytic activity/Vol] 49 U/L High 15-46 [facility] Comment on above: Performed By: #### L AB17, [id number], [id number], [id number] ####Framing Specialist: KIM GONZALES ([phone])[facility] ([facility])[address] [place] [address] Bilirubin [Mass/Vol] 0.6 mg/dL Normal 0.2-1.3 [facility] Comment on above: Performed By: #### L AB17, [id number], [id number], [id number] ####Framing Specialist: KIM GONZALES ([phone])[facility] ([facility])[address] [place] [address] Calcium [Mass/Vol] 8.4 mg/dL Normal 8.4-10.4 [facility] Comment on above: Performed By: #### L AB17, [id number], [id number], [id number] ####Framing Specialist: KIM GONZALES ([phone])[facility] ([facility])[address] [place] [address] Chloride [Moles/Vol] 104 mmol/L Normal 98-107 [facility] Comment on above: Performed By: #### L AB17, [id number], ZOT797, [id number] ####Framing Specialist: KIM GONZALES ([phone])[facility] ([facility])[address] [place] [address] CO2 [Moles/Vol] 24 mmol/L Normal 22-30 [facility] Comment on above: Performed By: #### L AB17, [id number], [id number], [id number] ####Framing Specialist: KIM GONZALES ([phone])[facility])[address] [place] [address] Creatinine [Mass/Vol] 1.20 mg/dL Normal 0.66-1.25 [facility] Comment on above: Performed By: #### L AB17, [id number], [id number], [id number] ####Framing Specialist: KIM GONZALES ([phone])[facility])[address] [place] [address] GLOMERULAR FILTRATION RATE ML/MIN/1.73 SQ M.PREDICTED 61.1 mL/min/1.73m*2 Normal >60.0 [facility] Comment on above: Result Comment: Calc ulation based on the Chronic Kidney Disease Epidemiology Collaboration (CKD-EPI) equation refit without adjustment for race Performed By: #### L AB17, [id number], [id number], [id number] ####Framing Specialist: KIM GONZALES ([phone])[facility] ([facility])[address] [place] [address] Glucose [Mass/Vol] 120 mg/dL High 70-100 [facility] Comment on above: Performed By: #### L AB17, [id number], [id number], [id number] ####Framing Specialist: KIM GONZALES ([phone])[facility])[address] [place] [address] Potassium [Moles/Vol] 4.5 mmol/L Normal 3.5-5.1 [facility] Comment on above: Performed By: #### L AB17, [id number], SXS648, ZGF335 ####Framing Specialist: KIM GONZALES ([phone])[facility])[address] [place] [address] Protein [Mass/Vol] 6.7 g/dL Normal 6.3-8.2 [facility] Comment on above: Performed By: #### L AB17, [id number], [id number], [id number] ####Framing Specialist: KIM GONZALES ([phone])[facility] ([facility])[address] [place] [address] Sodium [Moles/Vol] 137 mmol/L Normal 135-145 [facility] Comment on above: Performed By: #### L AB17, [id number], [id number], [id number] ####Framing Specialist: KIM GONZALES ([phone])[facility])[address] [place] [address] Urea nitrogen [Mass/Vol] 37 mg/dL High 9-20 [facility] Comment on above: Performed By: #### L AB17, [id number], UQR673, [id number] ####Framing Specialist: KIM GONZALES ([phone])[facility])[address] [place] [address] CRP [Mass/Vol]on 09-30-2023 Interpretation and review of laboratory results Abnormal [facility] Calcium.ionized [Moles/Vol]o n 09-30-2023 Calcium.ionized (Bld) [Moles/Vol] 4.20 mg/dL Low 4.30 - 5.20 mg/dL [facility] Interpretation and review of laboratory results Abnormal [facility] PH, IONIZED CALCIUM 7.47 High 7.31 - 7.46 [facility] Comprehensive metabolic 1998 panelon 09-30-2023 Albumin [Mass/Vol] 3.3 g/dL Low 3.5 - 5.0 g/dL [facility] ALP [Catalytic activity/Vol] 96 U/L 38 - 126 U/L [facility] ALT [Catalytic activity/Vol] 59 U/L High 0 - 49 U/L [facility] Anion gap [Moles/Vol] 9 mmol/L 3 - 13 mmol/L [facility] AST [Catalytic activity/Vol] 49 U/L High 15 - 46 U/L [facility] Bilirubin [Mass/Vol] 0.6 mg/dL 0.2 - 1 .3 mg/dL [facility] Calcium [Mass/Vol] 8.4 mg/dL 8.4 - 10. 4 mg/dL [facility] Chloride [Moles/Vol] 104 mmol/L 98 - 10 7 mmol/L [facility] CO2 [Moles/Vol] 24 mmol/L 22 - 30 mmol/L [facility] Creatinine [Mass/Vol] 1.20 mg/dL 0.66 - 1.25 mg/dL [facility] GFR/1.73 sq M.predicted MDRD (S/P/Bld) [Vol rate/Area] 61.1 mL/min/{1.73_m2} - PINF [facility] th Glucose [Mass/Vol] 120 mg/dL High 70 - 100 mg/dL [facility] Potassium [Moles/Vol] 4.5 mmol/L 3.5 - 5.1 mmol/L [facility] Protein [Mass/Vol] 6.7 g/dL 6.3 - 8.2 g/dL [facility] Sodium [Moles/Vol] 137 mmol/L 135 - 145 mmol/L [facility] Urea nitrogen [Mass/Vol] 37 mg/dL High 9 - 20 mg/dL [facility] ECG 12-LEADon 09-30-2023 ECG 12-LEAD IMPRESSION: Sinus rhythm Multiple ventricular premature complexes Repol abnrm suggests ischemia, lateral leads Borderline ST elevation, anterior leads Compared to ECG 09/29/2023 06:06:57 No significant change is noted Electronically Signed On 09-30-2023 09:32:54 EDT by Sue Emerson [facility] ECG 12-LEAD IMPRESSION: Atrial flutter with predominant 2:1 AV block Frequent PVCs Repolarization abnormality, prob rate related Borderline ST elevation, anterior leads Electronically Signed On 09-30-2023 09:32:23 EDT by Suealana Emerson [facility] ECG 12-LEAD IMPRESSION: Sinus rhythm Multiple ventricular premature complexes Nonspecific repol abnormality, diffuse leads Compared to ECG 09/28/2023 PACs no longer present Electronically Signed On 09-30-2023 09:31:38 EDT by Sue Emerson Normal [facility] ESR (Bld) [Velocity]on 09-29 Interpretation and review of laboratory results Abnormal [facility] Laboratory - Chemistry and C hemistry - challengeon 09-30-2023 CRP [Mass/Vol] 49.5 mg/L High NINF - 10.0 mg/L [facility] Magnesium [Mass/Vol] 2.4 mg/dL High 1.6 - 2 .3 mg/dL [facility] Laboratory - Hematology and Cell countson 09-30-2023 ESR (Bld) [Velocity] 65 mm/h High [facility] MAGNESIUMon 09-30-2023 Magnesium [Mass/Vol] 2.4 mg/dL High 1.6-2.3 [facility] Comment on above: Performed By: #### L AB17, [id number], [id number], [id number] ####Framing Specialist: KIM GONZALES ([phone])[address] No Panel Informationon 09-29 [address] [place] [address] [facility] [place] Interval [address] [facility] QRS [place] 24 degrees [facility] QRSD Interval [address] [facility] QT Interval 354 ms [facility] QTC Interval 450 ms [facility] T Wave [place] 208 degrees [facility] CV EPIPHANY [facility] P [place] [address] [facility] ME Interval 0 ms [facility] QRS [place] 16 degrees [facility] QRSD Interval [address] [facility] QT Interval 318 ms [facility] QTC Interval 474 ms [facility] T Wave [place] 220 degrees [facility] CV EPIPHANY [facility] CV EPIPHANY [facility] Interpretation and review of laboratory results Abnormal [facility] No Panel InformationOrdered By: Sue Emerson on 09-30-2023 [address] [place] [address] [facility] Work Phone: ME Interval 198 ms [facility] Work Phone: QRS [place] [address] [facility] Work Phone: QRSD Interval 92 ms [facility] Work Phone: QT Interval [address] [facility] Work Phone: QTC Interval [address] [facility] Work Phone: T Wave [place] [address] [facility] Work Phone: [facility] Work Phone: Nursing Noteon 09-30-[address] IV [address] per rap id response RN, amiodarone gtt restarted at previous rate., Dr. Cast notified. Normal [facility] Nursing Note L AC HL site reddene d, firm. States some discomfort at site. Amiodarone gtt stopped, red area marked. Attempted to restart IV, unsuccessful, rapid response notified of infiltrated site and for assist with new placement. Seth Goldstein RESIDENTIAL PROGRAM COORDINATOR also notified. Cont to monitor. Normal [facility] PHOSPHORUSon 09-30-2023 Phosphate [Mass/Vol] 4.5 mg/dL Normal 2.5-4.5 [facility] Comment on above: Performed By: #### L AB17, [id number], [id number], [id number] ####Framing Specialist: KIM GONZALES ([phone])[facility] ([address] Phosphate [Moles/Vol]on 09-16 Interpretation and review of laboratory results Normal [facility] Phosphate [Mass/Vol] 4.5 mg/dL 2.5 - 4 .5 mg/dL [facility] Progress Noteon 09-30-2023 Progress Note OCCUPATIONAL THERAPY [facility] Name/MRN: Eben Cruz ([id number]) Date: 09/30/2023 OT reviewed chart. In OT orders section, listed as have left LE restricted wt bearing but did not clarify the wt bearing. Spoke with RN ( Katie Aguilar) and reviewed paper chart from [facility]. Stated had left hip surgery that was complicated and required wound vac but did not clarify wt bearing or specific hip precautions either. Dr. Donnelly was seeing pt and explained situation and concerns to her. She stated she would consult ortho to clarify situation. OT will continue to follow. Jenny Hernández OTR/L Normal [facility] Progress Note ------- Attestation signed by Sue Emerson MD at 09/30/2023 6:21 PM I, Dr. Sue Emerson, saw and evaluated the patient 09/30/23. I personally obtained the morrow and critical portions of the history and physical exam. I reviewed the chart and discussed the patient with the fellow. I agree with the fellow's medical decision making. -ongoing atrial flutter/fib with RVR even on amiodarone infusion. Continue oral amiodarone, increase beta-melissa dose to Toprol XL 75 mg nightly, continue apixaban -dyspnea likely due to CHF still volume overloaded. Received IV lasix yesterday, less dyspneic today, continue torsemide. Has been off diovan for a few days. If BP tolerates higher dose of beta-melissa, will consider restarting very low dose diovan -recent PCI, no angina. On aspirin, brilinta (may be contributing to dyspnea, will consider switching to plavix), apixaban, beta-melissa, high dose statin [facility] and Vascular [place] [facility] Cardiology /Electrophysiology Progress Note CC: NSTEMI, s/p PCI HPI / Interval History: Mr. 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 On 09/18/23, he had total left hip replacement surgery at [facility]. He was discharged to SNF. He developed dyspnea and was transferred to [facility] with +NSTEMI, negative CTA for PE. Had a LHC at [facility] with severe mCAD. He was transferred to [facility] for PCI with Dr. Nichole. He had successful PCI on 09/25 with IVL and NORIS placed to ostial RCA, LMCA, ostial and proximal LAD. His ostial LCX SECTIONIZER is heavily calcified- for medical management. His echocardiogram at [place] showed LVEF of 25%, with lateral wall hypokinetic, mild-mod mitral valve insufficiency (at [place] on 09/23/23. Following PCI, having heart failure and diuresed, started on GDMT. Also afib, amiodarone gtt load then started on po, converted to SR. Currently being treated for +e. Coli UTI x 5 days. This morning, he is feeling better. He complains of low back pain from being in bed. He denies any chest pain, dyspnea at rest, orthopnea, PND, palpitations, dizziness, syncope, bleeding. Right femoral site stable. He states his dyspnea comes and goes, may also be related to brilinta. Vitals, HR stable this morning. Patient had worsening shortness of breath throughout the day yesterday, however today states he is feeling better this morning. Patient was restarted on IV amiodarone drip for 24-hour protocol. Heart rate has improved. Patient denies any chest pain. Assessment/Plan HF NYHA Class [] I [x] II [x] III [] IV NSTEMI/ CAD s/p IVL with NORIS to LMCA, ostial RCA, ostial and proximal LAD on 09/26/23 - Stable. Right femoral site stable without bleeding or hematoma. -Patient currently on triple therapy with aspirin, Brilinta and Eliquis. We will plan to discontinue aspirin at the time of discharge and continue on dual therapy with P2 Y12 and Eliquis - Patient has occasional shortness of breath which may be related to the Brilinta, will consider transition to p.o. Plavix if patient experiences any intolerable shortness of breath - Continue high intensity statin, - Patient is currently awaiting transfer to [facility]hab [facility] in [place] - IV heparin drip as per 24 protocol was initiated yesterday due to ongoing A-fib with rapid ventricular response. Heart rate has improved this morning. - Will increase metoprolol up to 100 mg daily for improved heart rate control - Patient shortness of breath appears to be improved with lower heart rate and may not be tolerating the A-fib with rapid ventricular response 2. HFrEF 25%/ Ischemic cardiomyopathy, stage C, NYHA class II- III acute on chronic HFrEF - Volume status improved. Creatinine did increase up to 1.2 which may indicate mild overdiuresis. Will hold diuretic today and resume p.o. torsemide tomorrow - Continue guideline medical therapy with Toprol-XL, -Will consider SGLT2, valsartan and spironolactone as outpatient as patient currently has low normal blood pressure - Patient administered dose of IV Lasix 40 mg yesterday for ongoing shortness of breath and chest x-ray showing mild bilateral congestion 3. MAT, frequent PVCs, tachycardia/ SVT/ Afib - He was started on amiodarone drip and converted to SR with frequent PVCs, PACs. Will start amiodarone 400 mg bid until he goes home, then decrease to 400 mg daily for 1 month, then decrease to 200 mg daily. TSH normal, LFTs improving. Continue apixaban 5 mg bid for CHADS2-VASC score of 6. -Will continue p.o. amiodarone, continue Eliquis. Will decrease as outpatient 4. UTI, uncomplicated - Received C&S results from [place], +ecoli in urine. Sensitive to cephalosporins. Continu (more content not included)... Normal [facility] SEDIMENTATION RATE, AUTOMATE Don 09-30-2023 SEDIMENTATION RATE, ERYTHROCYTE 65 mm/hr High 0-10 [facility] Comment on above: Performed By: #### L [id number] ####Framing Specialist: KIM GONZALES ([phone])[address] Heart TransthoracicOrdere d By: Frederick Mcclelland on 09-30-2023 Ao Root Index 1.76 cm/m2 [facility] Work Phone: Aortic Root 3.6 cm [facility] Work Phone: Aortic Sinus Valsalva 3.6 cm [facility] [employer] Work Phone: Aortic Sinus Valsalva Index 1.76 cm/m2 [facility] [employer] Work Phone: Ascending Aorta 3.[address] [facility] Work Phone: Ascending Aorta Index 1.66 cm/m2 [facility] Work Phone: [phone] AV Area by Peak Velocity 1.[address] [facility] Work Phone: [phone] AV Area by VTI 1.[address] [facility] Work Phone: AV Mean Gradient [address] [facility] Work Phone: [phone] AV Mean Velocity 1.2 m/s [facility] Work Phone: [phone] AV Peak Gradient [address] [facility] Work Phone: [phone] AV Peak Velocity 1.6 m/s [facility] Work Phone: [phone] Ratio 0.31 [facility] Work Phone: [phone] AV VTI 26.4 cm [facility] Work Phone: [phone] YAMIL/BSA Peak Velocity 0.5 cm2/m2 [facility] Work Phone: [phone] YAMIL/BSA VTI 0.5 cm2/m2 [facility] Work Phone: [phone] EF BP 38 % Abnormal 55 - 100 % [facility] Work Phone: [phone] Est. RA Pressure [address] [facility] Work Phone: [phone] Fractional Shortening 2D 7 % 28 - 44 % [facility] Work Phone: [phone] Interpretation and review of laboratory results Abnormal [facility] Work Phone: [phone] IVC Diameter 2.1 cm [facility] Work Phone: [phone] IVSd 0.8 cm 0.6 - 1.0 cm [facility] Work Phone: [phone] LA Diameter 4.7 cm [facility] Work Phone: [phone] LA Size Index 2.29 cm/m2 [facility] Work Phone: [phone] LA Volume 2C 84 mL Abnormal 18 - [address] [facility] Work Phone: [phone] LA Volume 4C 80 mL Abnormal 18 - 58 mL [facility] Work Phone: [phone] LA Volume A/L 89 mL [facility] Work Phone: LA Volume BP 82 mL Abnormal 18 - [address] [facility] Work Phone: LA Volume Index 2C 41 mL/m2 Abnormal 16 - 34 mL/m2 [facility] Work Phone: LA Volume Index 4C 39 mL/m2 Abnormal 16 - 34 mL/m2 [facility] Work Phone: LA Volume Index A/L 43 mL/m2 16 - 34 mL/m2 [facility] Work Phone: LA Volume Index BP 40 ml/m2 Abnormal 16 - 34 ml/m2 [facility] Work Phone: LA/AO Root Ratio 1.31 [facility] Work Phone: LV EDV A2C 182 mL [facility] Work Phone: LV EDV A4C [address] [facility] Work Phone: LV EDV BP 181 mL Abnormal 67 - 155 mL [facility] Work Phone: LV EDV Index A2C 89 mL/m2 [facility] Work Phone: LV EDV Index A4C 85 mL/m2 [facility] Work Phone: LV EDV Index BP 88 mL/m2 [facility] Work Phone: LV Ejection Fraction A2C 36 % [facility] Work Phone: LV Ejection Fraction A4C 36 % [facility] Work Phone: LV ESV A2C 116 mL [facility] Work Phone: LV ESV A4C 112 mL [facility] Work Phone: LV ESV BP 111 mL Abnormal 22 - [address] [facility] Work Phone: LV ESV Index A2C 57 mL/m2 [facility] Work Phone: LV ESV Index A4C 55 mL/m2 [facility] Work Phone: LV ESV Index BP 54 mL/m2 [facility] Work Phone: LV Mass 2D 172.7 g 88 - 224 g [facility] Work Phone: LV Mass 2D Index 84.3 g/m2 49 - 115 g/m2 [employer] Work Phone: LV RWT Ratio 0.33 [facility] Work Phone: LVIDd 5.5 cm 4.2 - 5.9 cm [employer] Work Phone: LVIDd Index 2.68 cm/m2 [employer] Work Phone: LVIDs 5.1 cm [facility] [employer] Work Phone: LVIDs Index 2.49 cm/m2 [employer] Work Phone: LVOT Area 3.1 cm2 [facility] [employer] Work Phone: [phone] LVOT Cardiac Output 3.4 liter/mi nu te [employer] Work Phone: LVOT Diameter 2.0 cm [facility] [employer] Work [phone] LVOT Mean Gradient 1 mmHg [facility] [employer] Work Phone: LVOT Peak Gradient 1 mmHg [facility] [employer] Work Phone: [phone] LVOT Peak Velocity 0.5 m/s [facility] [employer] Work Phone: [phone] LVOT Stroke Volume Index 14.1 mL/m2 [employer] Work Phone: [phone] LVOT SV 28.9 ml [employer] Work Phone: LVOT VTI 9.2 cm [facility] [employer] Work Phone: [phone] LVOT:AV VTI Index 0.35 [facility] [employer] Work Phone: [phone] LVPWd 0.9 cm 0.6 - 1.0 cm [facility] [employer] Work Phone: [phone] MR VTI 108.0 cm [facility] [employer] Work Phone: MV A Velocity 0.36 m/s [facility] Work Phone: [phone] MV Area by VTI 1.1 cm2 [facility] Work Phone: MV E Velocity 0.77 m/s [facility] Work Phone: MV E Wave Deceleration Time 100.8 ms [facility] Work Phone: MV E/A 2.14 [facility] Work Phone: MV Max Velocity 0.9 m/s [facility] Work Phone: MV Mean Gradient 1 mmHg [facility] Work Phone: MV Mean Velocity 0.4 m/s [facility] Work Phone: MV Nyquist Velocity 27 cm/s [facility] Work Phone: MV Peak Gradient 3 mmHg [facility] Work Phone: MV Regurg Velocity PISA 4.1 m/s [facility] Work Phone: MV VTI 26.[address] [facility] Work Phone: [phone] MV:LVOT VTI Index 2.87 [facility] Work Phone: PV Max Velocity 0.7 m/s [facility] Work Phone: [phone] PV Peak Gradient [address] [facility] Work Phone: [phone] RA Area 4C 44.[address] [facility] Work Phone: [phone] RA Area 4C 44.9 mL [facility] Work Phone: [phone] RV Basal Dimension 4.3 cm [facility] Work Phone: [phone] RV Mid Dimension 3.0 cm [facility] Work Phone: RVSP [address] [facility] Work Phone: Sinotubular [place] 3.1 cm [facility] Work Phone: TAPSE 1.4 cm Abnormal 1.[address] [facility] Work Phone: TR Max Velocity 2.06 m/s [facility] Work Phone: TR Peak Gradient 17 mmHg [facility] Work Phone: [facility] Work Phone: US Heart Transthoracicon 04- 14-2024 CV CPACS Vital signson 09-30-2023 Heart rate 97 /min bpm [facility] Heart rate 137 /min bpm [facility] Vital signsOrdered By: Sue Emerson on 09-30-2023 Heart rate 95 /min bpm [facility] [employer] Work Phone: CALCIUM, IONIZEDon 4 CALCIUM IONIZED 4.30 mg/dL Normal 4.30-5.20 [facility] Comment on above: Performed By: #### L [id number] ####Framing Specialist: KIM GONZALES ([phone])[facility] ([facility])[address] [place] [address] PH, IONIZED CALCIUM 7.43 Normal 7.31-7.46 [facility] Comment on above: Performed By: #### L AB54 ####Framing Specialist: KIM GONZALES ([phone])[facility] ([facility])[address] [place] [address] CBC W Auto Differential pane l (Bld)on 09-29-2023 Basophils (Bld) [#/Vol] 0.1 10*3/uL 0.0 - 0.2 10*3/uL [facility] [employer] Basophils/100 WBC (Bld) 0.4 % 0.0 - 2.0 % [facility] [employer] Eosinophils (Bld) [#/Vol] 0.3 10*3/uL 0.0 - 0.5 10*3/uL [facility] [employer] Eosinophils/100 WBC (Bld) 2.4 % 0.0 - 6.0 % [facility] [employer] Erythrocyte distribution width (RBC) [Ratio] 13.5 % 11.5 - 15.0 % [facility] [employer] Hematocrit (Bld) [Volume fraction] 33.1 % Low 40.0 - 52.0 % [facility] [employer] Hemoglobin (Bld) [Mass/Vol] 10.5 g/dL Low 13.0 - 18.0 g/dL [facility] [employer] Immature granulocytes (Bld) [#/Vol] 0.2 10*3/uL High NINF - 0.1 10*3/uL [facility] [employer] Immature granulocytes/100 WBC (Bld) 1.4 % 0.0 - 2.0 % [facility] [employer] Interpretation and review of laboratory results Abnormal [facility] [employer] Lymphocytes (Bld) [#/Vol] 1.5 10*3/uL 1.0 - 4.3 10*3/uL [facility] [employer] Lymphocytes/100 WBC (Bld) 11.5 % Low 15.0 - 45.0 % [facility] [employer] MCH (RBC) [Entitic mass] 30.5 pg 26.0 - 34.0 pg [facility] [employer] MCHC (RBC) [Mass/Vol] 31.7 % 30.5 - 36.0 % [facility] [employer] MCV (RBC) [Entitic vol] 96.2 fL 77.0 - 99.0 fL [facility] [employer] Monocytes (Bld) [#/Vol] 1.1 10*3/uL High 0.0 - 0.9 10*3/uL [facility] [employer] Monocytes/100 WBC (Bld) 8.2 % 5.0 - 13.0 % [facility] [employer] Neutrophils (Bld) [#/Vol] 9.8 10*3/uL High 1.8 - 7.5 10*3/uL [facility] [employer] Neutrophils/100 WBC (Bld) 76.1 % 38.0 - 82.0 % [facility] [employer] Nucleated RBC/100 WBC (Bld) [Ratio] 0.0 % [facility] [employer] Platelet mean volume (Bld) [Entitic vol] 10.8 fL 9.0 - 12.7 fL [facility] [employer] Platelets (Bld) [#/Vol] 416 10*3/uL 140 - 440 10*3/uL [facility] RBC (Bld) [#/Vol] 3.44 10*6/uL Low 4.40 - 5.90 10*6/uL [facility] WBC (Bld) [#/Vol] 12.8 10*3/uL High 3.6 - 10.7 10*3/uL [facility] CBC WITH AUTO DIFFERENTIALon 09-29-2023 Basophils (Bld) [#/Vol] 0.1 10*3/uL Normal 0.0-0.2 [facility] Comment on above: Performed By: #### L [id number] ####Framing Specialist: KIM GONZALES ([phone])[facility] ([address] Basophils/100 WBC (Bld) 0.4 % Normal 0.0-2.0 [facility] Comment on above: Performed By: #### L [id number] ####Framing Specialist: KIM GONZALES ([phone])[facility])[address] [place] [address] Eosinophils (Bld) [#/Vol] 0.3 10*3/uL Normal 0.0-0.5 [facility] Comment on above: Performed By: #### L [id number] ####Framing Specialist: KIM GONZALES ([phone])[facility])[address] [place] [address] Eosinophils/100 WBC (Bld) 2.4 % Normal 0.0-6.0 [facility] Comment on above: Performed By: #### L [id number] ####Framing Specialist: KIM GONZALES ([phone])[facility])[address] [place] [address] Erythrocyte distribution width (RBC) [Ratio] 13.5 % Normal 11.5-15.0 [facility] Comment on above: Performed By: #### L [id number] ####Framing Specialist: KIM GONZALES ([phone])[facility])[address] [place] [address] Hematocrit (Bld) [Volume fraction] 33.1 % Low 40.0-52.0 [facility] Comment on above: Performed By: #### L [id number] ####Framing Specialist: KIM GONZALES ([phone])[facility])[address] [place] [address] Hemoglobin (Bld) [Mass/Vol] 10.5 g/dL Low 13.0-18.0 [facility] Comment on above: Performed By: #### L [id number] ####Framing Specialist: KIM GONZALES ([phone])[facility])[address] [place] [address] IMMATURE GRANS % 1.4 % Normal 0.0-2.0 [facility] Comment on above: Performed By: #### L [id number] ####Framing Specialist: KIM GONZALES ([phone])[facility])[address] [place] [address] IMMATURE GRANS ABSOLUTE 0.2 10*3/uL High <0.1 [facility] Comment on above: Performed By: #### L [id number] ####Framing Specialist: KIM GONZALES ([phone])[facility])[address] [place] [address] Lymphocytes (Bld) [#/Vol] 1.5 10*3/uL Normal 1.0-4.3 [facility] Comment on above: Performed By: #### L [id number] ####Framing Specialist: KIM GONZALES ([phone])[address] Lymphocytes/100 WBC (Bld) 11.5 % Low 15.0-45.0 [facility] Comment on above: Performed By: #### L [id number] ####Framing Specialist: KIM GONZALES ([phone])[facility])[address] [place] [address] MCH (RBC) [Entitic mass] 30.5 pg Normal 26.0-34.0 [facility] Comment on above: Performed By: #### L [id number] ####Framing Specialist: KIM GONZALES ([phone])[address] MCHC 31.7 % Normal 30.5-36.0 [facility] Comment on above: Performed By: #### L [id number] ####Framing Specialist: KIM GONZALES ([phone])[address] MCV (RBC) [Entitic vol] 96.2 fL Normal 77.0-99.0 [facility] Comment on above: Performed By: #### L [id number] ####Framing Specialist: KIM GONZALES ([phone])[facility])[address] [place] [address] [place] Monocytes (Bld) [#/Vol] 1.1 10*3/uL High 0.0-0.9 [facility] Comment on above: Performed By: #### L [id number] ####Framing Specialist: KIM GONZALES ([phone])[facility] ([facility])[address] [place] [address] Monocytes/100 WBC (Bld) 8.2 % Normal 5.0-13.0 [facility] Comment on above: Performed By: #### L [id number] ####Framing Specialist: KIM GONZALES ([phone])[facility])[address] [place] [address] NEUTROPHILS ABSOLUTE 9.8 10*3/uL High 1.8-7.5 [facility] Comment on above: Performed By: #### L [id number] ####Framing Specialist: KIM GONZALES ([phone])[facility] ([facility])[address] [place] [address] Neutrophils/100 WBC (Bld) 76.1 % Normal 38.0-82.0 [facility] Comment on above: Performed By: #### L [id number] ####Framing Specialist: KIM GONZALES ([phone])[facility] ([facility])[address] [place] [address] NRBC 0.0 /100 WBCs Normal 0.0-2.0 [facility] Comment on above: Performed By: #### L [id number] ####Framing Specialist: KIM GONZALES ([phone])[facility] ([facility])[address] [place] [address] [place] Platelet mean volume (Bld) [Entitic vol] 10.8 fL Normal 9.0-12.7 [facility] Comment on above: Performed By: #### L [id number] ####Framing Specialist: KIM GONZALES ([phone])[facility] ([facility])[address] [place] [address] [place] Platelets (Bld) [#/Vol] 416 10*3/uL Normal 140-440 [facility] Comment on above: Performed By: #### L [id number] ####Framing Specialist: KIM GONZALES ([phone])[facility] ([facility])[address] [place] [address] RBC (Bld) [#/Vol] 3.44 10*6/uL Low 4.40-5.90 [facility] Comment on above: Performed By: #### L [id number] ####Framing Specialist: KIM GONZALES ([phone])[facility] ([facility])[address] [place] [address] WBC (Bld) [#/Vol] 12.8 10*3/uL High 3.6-10.7 [facility] Comment on above: Performed By: #### L [id number] ####Framing Specialist: KIM GONZALES ([phone])[facility])[address] [place] [address] COMPREHENSIVE METABOLIC PANE Miguel Angel 09-29-2023 Albumin [Mass/Vol] 3.2 g/dL Low 3.5-5.0 [facility] Comment on above: Performed By: #### L [id number], [id number], LAB17, [id number] ####Framing Specialist: KIM GONZALES ([phone])[facility] ([facility])[address] [place] [address] ALP [Catalytic activity/Vol] 90 U/L Normal 38-126 [facility] Comment on above: Performed By: #### L [id number], [id number], LAB17, [id number] ####Framing Specialist: KIM GONZALES ([phone])[facility])[address] [place] [address] ALT [Catalytic activity/Vol] 73 U/L High 0-49 [facility] Comment on above: Performed By: #### L AB113, [id number], LAB17, UCN794 ####Framing Specialist: KIM GONZALES ([phone])[facility])[address] [place] [address] [place] Anion gap [Moles/Vol] 7 mmol/L Normal 3-13 [facility] Comment on above: Performed By: #### L AB113, [id number], LAB17, CAA460 ####Framing Specialist: KIM GONZALES ([phone])[facility] ([facility])[address] [place] [address] AST [Catalytic activity/Vol] 75 U/L High 15-46 [facility] Comment on above: Performed By: #### L AB113, [id number], LAB17, DAD791 ####Framing Specialist: KIM GONZALES ([phone])[facility] ([facility])[address] [place] [address] Bilirubin [Mass/Vol] 0.9 mg/dL Normal 0.2-1.3 [facility] Comment on above: Performed By: #### L AB113, [id number], LAB17, UCA171 ####Framing Specialist: KIM GONZALES ([phone])[facility] ([facility])[address] [place] [address] Calcium [Mass/Vol] 8.5 mg/dL Normal 8.4-10.4 [facility] Comment on above: Performed By: #### L AB113, CTA425, LAB17, QNY613 ####Framing Specialist: KIM GONZALES ([phone])[facility] ([facility])[address] [place] [address] Chloride [Moles/Vol] 106 mmol/L Normal 98-107 [facility] Comment on above: Performed By: #### L AB113, PDQ180, LAB17, IVB703 ####Framing Specialist: KIM GONZALES ([phone])[facility] ([facility])[address] [place] [address] [place] CO2 [Moles/Vol] 24 mmol/L Normal 22-30 [facility] Comment on above: Performed By: #### L AB113, [id number], LAB17, NYR590 ####Framing Specialist: KIM GONZALES ([phone])[facility] ([facility])[address] [place] [address] Creatinine [Mass/Vol] 0.86 mg/dL Normal 0.66-1.25 [facility] Comment on above: Performed By: #### L AB113, KDN621, LAB17, FCX055 ####Framing Specialist: KIM GONZALES ([phone])[facility])[address] [place] [address] GLOMERULAR FILTRATION RATE ML/MIN/1.73 SQ M.PREDICTED 87.5 mL/min/1.73m*2 Normal >60.0 [facility] Comment on above: Result Comment: Calc ulation based on the Chronic Kidney Disease Epidemiology Collaboration (CKD-EPI) equation refit without adjustment for race Performed By: #### L AB113, ISY114, LAB17, RQT474 ####Framing Specialist: KIM GONZALES ([phone])[facility])[address] [place] [address] Glucose [Mass/Vol] 113 mg/dL High 70-100 [facility] Comment on above: Performed By: #### L AB113, [id number], LAB17, DYH697 ####Framing Specialist: KIM GONZALES ([phone])[facility])[address] [place] [address] Potassium [Moles/Vol] 4.8 mmol/L Normal 3.5-5.1 [facility] Comment on above: Performed By: #### L AB113, [id number], LAB17, MGA583 ####Framing Specialist: KIM GONZALES ([phone])[facility])[address] [place] [address] Protein [Mass/Vol] 6.4 g/dL Normal 6.3-8.2 [facility] Comment on above: Performed By: #### L AB113, QQP868, LAB17, TES056 ####Framing Specialist: KIM GONZALES ([phone])[facility])[address] [place] [address] Sodium [Moles/Vol] 136 mmol/L Normal 135-145 [facility] Comment on above: Performed By: #### L AB113, [id number], LAB17, KHZ482 ####Framing Specialist: KIM GONZALES ([phone])[facility] ([facility])[address] [place] [address] Urea nitrogen [Mass/Vol] 39 mg/dL High 9-20 [facility] Comment on above: Performed By: #### L AB113, [id number], LAB17, KLE864 ####Framing Specialist: KIM GONZALES ([phone])[facility] ([facility])[address] [place] [address] Calcium.ionized [Moles/Vol]o n 09-29-2023 Calcium.ionized (Bld) [Moles/Vol] 4.30 mg/dL 4.30 - 5.20 mg/dL [facility] Interpretation and review of laboratory results Normal [facility] PH, IONIZED CALCIUM 7.43 7.31 - 7.46 [facility] Comprehensive metabolic 1998 panelOrdered By: Zafar Ruiz on 09-29-2023 Albumin [Mass/Vol] 3.2 g/dL Low 3.5 - 5.0 g/dL [facility] ALP [Catalytic activity/Vol] 90 U/L 38 - 126 U/L [facility] ALT [Catalytic activity/Vol] 73 U/L High 0 - 49 U/L [facility] Anion gap [Moles/Vol] 7 mmol/L 3 - 13 mmol/L [facility] AST [Catalytic activity/Vol] 75 U/L High 15 - 46 U/L [facility] Bilirubin [Mass/Vol] 0.9 mg/dL 0.2 - 1 .3 mg/dL [facility] Calcium [Mass/Vol] 8.5 mg/dL 8.4 - 10. 4 mg/dL [facility] Chloride [Moles/Vol] 106 mmol/L 98 - 10 7 mmol/L [facility] CO2 [Moles/Vol] 24 mmol/L 22 - 30 mmol/L [facility] Creatinine [Mass/Vol] 0.86 mg/dL 0.66 - 1.25 mg/dL [facility] GFR/1.73 sq M.predicted MDRD (S/P/Bld) [Vol rate/Area] 87.5 mL/min/{1.73_m2} - [facility] th Glucose [Mass/Vol] 113 mg/dL High 70 - 100 mg/dL [facility] Interpretation and review of laboratory results Abnormal [facility] Potassium [Moles/Vol] 4.8 mmol/L 3.5 - 5.1 mmol/L [facility] Protein [Mass/Vol] 6.4 g/dL 6.3 - 8.2 g/dL [facility] Sodium [Moles/Vol] 136 mmol/L 135 - 145 mmol/L [facility] Urea nitrogen [Mass/Vol] 39 mg/dL High 9 - 20 mg/dL [facility] Laboratory - Chemistry and C hemistry - challengeon 09-29-2023 TSH Qn 2.409 m[IU]/L [facility] h Magnesium [Mass/Vol] 2.6 mg/dL High 1.6 - 2 .3 mg/dL [facility] MAGNESIUMon 09-29-2023 Magnesium [Mass/Vol] 2.6 mg/dL High 1.6-2.3 [facility] Comment on above: Performed By: #### L AB113, [id number], LAB17, DGR997 ####Framing Specialist: KIM GONZALES ([phone])[facility] ([facility])[address] [place] [address] [place] Magnesium [Mass/Vol]on 09-28 Interpretation and review of laboratory results Abnormal [facility] No Panel Informationon 09-28 [facility] PHOSPHORUSon 09-29-2023 Phosphate [Mass/Vol] 4.0 mg/dL Normal 2.5-4.5 [facility] Comment on above: Performed By: #### L AB113, ZIF745, LAB17, [id number] ####Framing Specialist: KIM GONZALES ([phone])[facility] ([facility])[address] [place] [address] [place] Phosphate [Moles/Vol]on 09-16 Interpretation and review of laboratory results Normal [facility] Phosphate [Mass/Vol] 4.0 mg/dL 2.5 - 4 .5 mg/dL [facility] Progress Noteon 09-29-2023 Progress Note Pt care team notifie d of pt HR still sustained at 120's, RR remains >25, SpO2 WNL at this time, remains on oxygen 3L/min NC, SBP <90. Pt denies dizziness/lightheadedness, denies CP, denies GERD like s/s, at this time pt denies being SOB despite being conversationally dyspneic. No new orders received. 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 [facility] Progress Note Pt care team notifie d again at this time about pt HR still elevated and now sustained between 130 and 140 BPM. Pt RR now 30-40. Pt having impending doom, keeps repeating I am not going to make it, and I can't breathe. Normal [facility] Progress Note Pt care team to beds ulisses. Pt still with HR sustained 120-130's RR elevated, still with O2. New orders received for IV lopressor and IV lasix. Given at this time per MD order. [facility] Progress Note Pt care team is noti fied at this time of pt HR sustained now at 110-120, pt SpO2 continues to drop, pt now requires 3L/min O2 per NC to maintain SpO2 goals. Pt RR now 20-30. EKG obtained this AM. Will await additional orders. [facility] Progress Note ------- Attestation signed by Sue Emerson MD at 09/29/2023 2:07 PM I, Dr. Sue Emerson, saw and evaluated the patient 09/29/23. I personally obtained the morrow and critical portions of the history and physical exam. I reviewed the chart and discussed the patient with the fellow. I agree with the fellow's medical decision making. - ongoing dyspnea due to pAFIB/flutter with RVR and decompensated CHF. Off amiodarone drip 09/27,current on oral amiodarone and Toprol XL. - IV lasix now with close monitoring of urine outputs, daily weight (weight today accurate), renal function -IV metoprolol as needed for rate control for now (continue oral amio and metoprolol). Would consider switching back to amiodarone in fusion if RVR persists - continue DAPT, aspirin, apixaban, high dose statin, PPI [facility] [place] [facility] Cardiology /Electrophysiology Progress Note CC: NSTEMI, s/p PCI HPI / Interval History: Mr. 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 On 09/18/23, he had total left hip replacement surgery at [facility]. He was discharged to SNF. He developed dyspnea and was transferred to [facility] with +NSTEMI, negative CTA for PE. Had a LHC at [facility] with severe mCAD. He was transferred to [facility] for PCI with Dr. Nichole. He had successful PCI on 09/25 with IVL and NORIS placed to ostial RCA, LMCA, ostial and proximal LAD. His ostial LCX SECTIONIZER is heavily calcified- for medical management. His echocardiogram at [place] showed LVEF of 25%, with lateral wall hypokinetic, mild-mod mitral valve insufficiency (at [place] on 09/23/23. Following PCI, having heart failure and diuresed, started on GDMT. Also afib, amiodarone gtt load then started on po, converted to SR. Currently being treated for +e. Coli UTI x 5 days. This morning, he is feeling better. He complains of low back pain from being in bed. He denies any chest pain, dyspnea at rest, orthopnea, PND, palpitations, dizziness, syncope, bleeding. Right femoral site stable. He states his dyspnea comes and goes, may also be related to brilinta. Vitals, HR stable this morning. Today, patient states he feels the same as prior days. Has some mild shortness of breath throughout the night but states keeps him awake occasionally. Patient is currently sitting up in bed and breathing comfortably. States shortness of breath is random, however is able to tolerate at this time. Patient able to tolerate p.o. without any issues. Assessment/Plan HF NYHA Class [] I [x] II [x] III [] IV NSTEMI/ CAD s/p IVL with NORIS to LMCA, ostial RCA, ostial and proximal LAD on 09/26/23 - Stable. Right femoral site stable without bleeding or hematoma. -Patient currently on triple therapy with aspirin, Brilinta and Eliquis. We will plan to discontinue aspirin at the time of discharge and continue on dual therapy with P2 Y12 and Eliquis - Patient has occasional shortness of breath which may be related to the Brilinta, will consider transition to p.o. Plavix if patient experiences any intolerable shortness of breath - Continue high intensity statin, Toprol-XL, PPI - Patient is currently awaiting transfer to [facility] rehab hospital in [place] 2. HFrEF 25%/ Ischemic cardiomyopathy, stage C, NYHA class II- III acute on chronic HFrEF - Volume status improved. No orthopnea, JVD improved at base of neck. -Patient has mild crackles at the bases, however appears euvolemic. Patient has mild 1+ pitting edema to left lower extremity which he says is chronic after his left leg surgery. Right lower extremity has no edema. - Continue guideline medical therapy with Toprol-XL, -Will consider SGLT2, valsartan and spironolactone as outpatient as patient currently has low normal blood pressure - Torsemide 10 mg daily initiated today 3. MAT, frequent PVCs, tachycardia/ SVT/ Afib - He was started on amiodarone drip and converted to SR with frequent PVCs, PACs. Will start amiodarone 400 mg bid until he goes home, then decrease to 400 mg daily for 1 month, then decrease to 200 mg daily. TSH normal, LFTs improving. Continue apixaban 5 mg bid for CHADS2-VASC score of 6. -Will continue p.o. amiodarone, continue Eliquis. Will decrease as outpatient 4. UTI, uncomplicated - Received C&S results from [place], +ecoli in urine. Sensitive to cephalosporins. Continue Rocephin for 5 days today (last dose on Sunday). -Ceftriaxone completed today. No further antibiotics needed 5. Hx CVA - with right ECA stenosis. Continue DAPT and atorvastatin. 6. Hypocalcemia/ Hypokalemia - Calcium Gluconate ordered, K+ replaced. Restart spironolactone. 7. Recent left hip fracture s/p left hip arthoplasty on (more content not included)... Normal [facility] THYROID STIMULATING HORMONEo n 09-29-2023 THYROID STIMULATING HORMONE 2.409 uIU/mL Normal 0.465-4.68 0 [facility] Comment on above: Performed By: #### L AB113, INB605, LAB17, [id number] ####Framing Specialist: KIM GONZALES ([phone])[facility] ([address] TSH Qnon 09-29-2023 Interpretation and review of laboratory results Normal [facility] XR CHEST 1 VIEWon 09-29-2023 XR CHEST 1 VIEW [facility] 1945 [id number] Exam Date/Time: 09/29/2023 13:50 Procedure: XR CHEST 1 VIEW Ordering Provider: COELHO NICHOLAS Reason For Exam: Shortness of breath PORTABLE CHEST CLINICAL INDICATION: Dyspnea. COMPARISON: 09/28/2023. TECHNIQUE: A single frontal view of thorax was obtained and reviewed. IMPRESSION: 1. Lines/ tubes/ devices: None. 2. Lungs and Pleura: Hazy opacity in both lung bases suggest small layered bilateral pleural effusions, unchanged. No pneumothorax. No consolidation is evident. 3. Heart and mediastinum: Normal cardiomediastinal margin. 4. Bones: Thoracic degenerative spondylosis. Advanced right glenohumeral joint osteoarthritis. Left shoulder arthroplasty is redemonstrated. Report Dictated on Electronically Signed By: Chet Ozuna DO Electronically Signed Date/Time: 09/29/2023 1:59 PM EDT Normal [facility] XR Chest Single viewon 09-28 [facility] RADIOLOGY [facility] Radiology Study observation (narrative) [facility] XR Chest Single viewOrdered By: Chet Ozuna on 09-29-2023 [facility] Work Phone: CALCIUM, IONIZEDon CALCIUM IONIZED 4.20 mg/dL Low 4.30-5.20 [facility] Comment on above: Performed By: #### L [id number] ####Framing Specialist: KIM GONZALES ([phone])[facility] ([facility])[address] [place] [address] PH, IONIZED CALCIUM 7.47 High 7.31-7.46 [facility] Comment on above: Performed By: #### L [id number] ####Framing Specialist: KIM GONZALES ([phone])[facility] ([facility])[address] [place] [address] CARECOORDon 09-28-2023 CARECOORD Completed transporta tion from in [facility]. Normal [facility] CBC W Auto Differential pane l (Bld)on 09-28-2023 Basophils (Bld) [#/Vol] 0.0 10*3/uL 0.0 - 0.2 10*3/uL [facility] Basophils/100 WBC (Bld) 0.3 % 0.0 - 2.0 % [facility] Eosinophils (Bld) [#/Vol] 0.2 10*3/uL 0.0 - 0.5 10*3/uL [facility] Eosinophils/100 WBC (Bld) 1.4 % 0.0 - 6.0 % [facility] Erythrocyte distribution width (RBC) [Ratio] 13.3 % 11.5 - 15.0 % [facility] Hematocrit (Bld) [Volume fraction] 30.7 % Low 40.0 - 52.0 % [facility] Hemoglobin (Bld) [Mass/Vol] 9.7 g/dL Low 13.0 - 18.0 g/dL [facility] Immature granulocytes (Bld) [#/Vol] 0.2 10*3/uL High NINF - 0.1 10*3/uL [facility] Immature granulocytes/100 WBC (Bld) 1.2 % 0.0 - 2.0 % [facility] Interpretation and review of laboratory results Abnormal [facility] Lymphocytes (Bld) [#/Vol] 1.6 10*3/uL 1.0 - 4.3 10*3/uL [facility] [employer] Lymphocytes/100 WBC (Bld) 12.2 % Low 15.0 - 45.0 % [facility] [employer] MCH (RBC) [Entitic mass] 30.3 pg 26.0 - 34.0 pg [facility] MCHC (RBC) [Mass/Vol] 31.6 % 30.5 - 36.0 % [facility] [employer] MCV (RBC) [Entitic vol] 95.9 fL 77.0 - 99.0 fL [facility] [employer] Monocytes (Bld) [#/Vol] 1.2 10*3/uL High 0.0 - 0.9 10*3/uL [facility] Monocytes/100 WBC (Bld) 9.3 % 5.0 - 13.0 % [facility] [employer] Neutrophils (Bld) [#/Vol] 10.0 10*3/uL High 1.8 - 7.5 10*3/uL [facility] [employer] Neutrophils/100 WBC (Bld) 75.6 % 38.0 - 82.0 % [facility] [employer] Nucleated RBC/100 WBC (Bld) [Ratio] 0.2 % [facility] [employer] Platelet mean volume (Bld) [Entitic vol] 10.7 fL 9.0 - 12.7 fL [facility] [employer] Platelets (Bld) [#/Vol] 398 10*3/uL 140 - 440 10*3/uL [facility] RBC (Bld) [#/Vol] 3.20 10*6/uL Low 4.40 - 5.90 10*6/uL [facility] WBC (Bld) [#/Vol] 13.2 10*3/uL High 3.6 - 10.7 10*3/uL [facility] CBC WITH AUTO DIFFERENTIALon 09-28-2023 Basophils (Bld) [#/Vol] 0.0 10*3/uL Normal 0.0-0.2 [facility] Comment on above: Performed By: #### L [id number] ####Framing Specialist: KIM GONZALES ([phone])[facility] ([address] Basophils/100 WBC (Bld) 0.3 % Normal 0.0-2.0 [facility] Comment on above: Performed By: #### L [id number] ####Framing Specialist: KIM GONZALES ([phone])[facility])[address] [place] [address] Eosinophils (Bld) [#/Vol] 0.2 10*3/uL Normal 0.0-0.5 [facility] Comment on above: Performed By: #### L [id number] ####Framing Specialist: KIM GONZALES ([phone])[facility])[address] [place] [address] Eosinophils/100 WBC (Bld) 1.4 % Normal 0.0-6.0 [facility] Comment on above: Performed By: #### L [id number] ####Framing Specialist: KIM GONZALES ([phone])[facility])[address] [place] [address] Erythrocyte distribution width (RBC) [Ratio] 13.3 % Normal 11.5-15.0 [facility] Comment on above: Performed By: #### L [id number] ####Framing Specialist: KIM GONZALES ([phone])[facility])[address] [place] [address] Hematocrit (Bld) [Volume fraction] 30.7 % Low 40.0-52.0 [facility] Comment on above: Performed By: #### L [id number] ####Framing Specialist: KIM GONZALES ([phone])[facility])[address] [place] [address] Hemoglobin (Bld) [Mass/Vol] 9.7 g/dL Low 13.0-18.0 [facility] Comment on above: Performed By: #### L [id number] ####Framing Specialist: KIM GONZALES ([phone])[facility])[address] [place] [address] IMMATURE GRANS % 1.2 % Normal 0.0-2.0 [facility] Comment on above: Performed By: #### L [id number] ####Framing Specialist: KIM GONZALES ([phone])[facility])[address] [place] [address] IMMATURE GRANS ABSOLUTE 0.2 10*3/uL High <0.1 [facility] Comment on above: Performed By: #### L [id number] ####Framing Specialist: KIM GONZALES ([phone])[facility])[address] [place] [address] Lymphocytes (Bld) [#/Vol] 1.6 10*3/uL Normal 1.0-4.3 [facility] Comment on above: Performed By: #### L [id number] ####Framing Specialist: KIM GONZALES ([phone])[address] Lymphocytes/100 WBC (Bld) 12.2 % Low 15.0-45.0 [facility] Comment on above: Performed By: #### L [id number] ####Framing Specialist: KIM GONZALES ([phone])[facility])[address] [place] [address] MCH (RBC) [Entitic mass] 30.3 pg Normal 26.0-34.0 [facility] Comment on above: Performed By: #### L [id number] ####Framing Specialist: KIM GONZALES ([phone])[address] MCHC 31.6 % Normal 30.5-36.0 [facility] Comment on above: Performed By: #### L [id number] ####Framing Specialist: KIM GONZALES ([phone])[address] MCV (RBC) [Entitic vol] 95.9 fL Normal 77.0-99.0 [facility] Comment on above: Performed By: #### L [id number] ####Framing Specialist: KIM GONZALES ([phone])[facility])[address] [place] [address] Monocytes (Bld) [#/Vol] 1.2 10*3/uL High 0.0-0.9 [facility] Comment on above: Performed By: #### L [id number] ####Framing Specialist: KIM GONZALES ([phone])[facility] ([facility])[address] [place] [address] Monocytes/100 WBC (Bld) 9.3 % Normal 5.0-13.0 [facility] Comment on above: Performed By: #### L [id number] ####Framing Specialist: KIM GONZALES ([phone])[facility] ([facility])[address] [place] [address] NEUTROPHILS ABSOLUTE 10.0 10*3/uL High 1.8-7.5 [facility] Comment on above: Performed By: #### L [id number] ####Framing Specialist: KIM GONZALES ([phone])[facility] ([facility])[address] [place] [address] Neutrophils/100 WBC (Bld) 75.6 % Normal 38.0-82.0 [facility] Comment on above: Performed By: #### L [id number] ####Framing Specialist: KIM GONZALES ([phone])[facility] ([facility])[address] [place] [address] NRBC 0.2 /100 WBCs Normal 0.0-2.0 [facility] Comment on above: Performed By: #### L [id number] ####Framing Specialist: KIM GONZALES ([phone])[facility] ([facility])[address] [place] [address] Platelet mean volume (Bld) [Entitic vol] 10.7 fL Normal 9.0-12.7 [facility] Comment on above: Performed By: #### L [id number] ####Framing Specialist: KIM GONZALES ([phone])[facility] ([facility])[address] [place] [address] Platelets (Bld) [#/Vol] 398 10*3/uL Normal 140-440 [facility] Comment on above: Performed By: #### L [id number] ####Framing Specialist: KIM GONZALES ([phone])[address] RBC (Bld) [#/Vol] 3.20 10*6/uL Low 4.40-5.90 [facility] Comment on above: Performed By: #### L [id number] ####Framing Specialist: KIM GONZALES ([phone])[facility])[address] [place] [address] WBC (Bld) [#/Vol] 13.2 10*3/uL High 3.6-10.7 [facility] Comment on above: Performed By: #### L [id number] ####Framing Specialist: KIM GONZALES ([phone])[address] Calcium.ionized [Moles/Vol]O rdered By: Chet Smith on 09-28-2023 Calcium.ionized (Bld) [Moles/Vol] 4.20 mg/dL Low 4.30 - 5.20 mg/dL [facility] Interpretation and review of laboratory results Abnormal [facility] PH, IONIZED CALCIUM 7.47 High 7.31 - 7.46 [facility] Consulton 09-28-2023 Consult Palliative Care Init ial Consult Chief Complaint: Eben Cruz is a 78 y.o. male with chief complaint of shortness of breath. Palliative Care provider will follow-up on 10/01/23. 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 - without LW and HCPOA, education what for and how helpful - discussed code status, he is not sure what he would want done in event of CP arrest, discussed code in detail, he would like to talk with family as well - will continue to follow for ongoing monitoring of progression of Anorexia - will continue to evaluate test results related to NSTEMI , medication effectiveness for Anorexia, response to treatment of NSTEMI - return next week Total of 65 minutes spent on this encounter including Chart review, Patient visit and exam, Documentation in EHR, Care coordination, Communicating with primary attending or other consultants, and Counseling and educating patient/family/caregiver. Discharge planning: Not ready for discharge due to medical instability Patient meets criteria for general inpatient hospice care including the following: N/A - Palliative Care Patient Referrals to: None Discussed patient and the plan of care with the other interdisciplinary team (IDT) members of Palliative Care Team, and with Primary Attending, Patient, and Floor Nurse Insert attestation statement here if applicable (.disupervision) or (.npattest) I have discussed the patient's case and plan of care with my collaborating physician Dr. Arevalo Subjective: Hospital days prior to consult: 2 Trauma Consult: no. (If yes, please add .traumapall dotphrase for tracking purposes.) Subjective/Events Eben Cruz is a 78 y.o. male living independently at home, still driving, working [employer] for [facility] [employer] [facility] [employer]. PMHx includes: HTN, HLD, partial R CVA. At [facility] for L total hip replacement but complicated by requirement of wound vac, was at SNF. transferred to [place] for cardiology NSTEMI, transferred to [facility] for PCI. Family called with stating he needs to be DNR but he is oriented, palliative care consulted for goals of care Patient awake in bed in NAD, admits to LLE pain, no CP, abdominal pain, breathing improved, no nausea, vomiting, reduced appetite, not sleeping well, BM yesterday small Pain Assessment (If Pain Scale >0) Description: dull Nonverbal patients: Restlessness Duration: day(s) Frequency:Daily Location: LLE, intermittent Alleviating Factors: pain medication Exacerbating Factors: unable to associate with any factor Effect:N/A Goals of care:Continue Current Management Functional Assessment: PPS: 80% Advance Directives: Full Code Surrogate: Child Prognosis: unknown Spiritual assessment: No spiritual distress identified Bereavement and grief: Grief Issues Not Identified Past Medical History: Diagnosis Date Adverse effect of anesthesia Arthritis Coronary artery disease Delayed emergence from general anesthesia Hypertension Stroke (HCC) Past Surgical History: Procedure Laterality Date CARDIAC CATHETERIZATION N/A 09/26/2023 Performed by Amos Nichole MD at [facility] Cardiac Cath/EP Lab CARDIAC CATHETERIZATION N/A 09/26/2023 Performed by Amos Nichole MD at [facility] Cardiac Cath/EP Lab HERNIA REPAIR INVASIVE VASCULAR PROCEDURE N/A 09/26/2023 Performed by Amso Nichole MD at [facility] Cardiac Cath/EP Lab JOINT REPLACEMENT both hip replacements, L shoulder No family history on file. Unable to obtain family history due to parents have Allergies Allergen Reactions Entresto [Sacubitril-Valsartan] Nausea And Vomiting Wool Alcohol [Lanolin] Review of Systems ROS: See palliative care ROS/ESAS below; All other systems were reviewed and are negative. [place] Symptom Assessment Score [place] Score Pain Score 5 Tiredness Score 0 Nausea Score 0 Depression Score 0 Anxiety Score 0 Drowsiness Score 0 Anorexia Score (more content not included)... [facility] ECG 12-LEADon 09-28-2023 ECG 12-LEAD IMPRESSION: Sinus tachycardia Atrial premature complex Compared to ECG 09/27/2023 07:13:39 Atrial premature complex(es) now present Electronically Signed On 09-28-2023 20:56:35 EDT by [facility] ECG 12-LEAD IMPRESSION: Sinus tachycardia Compared to ECG 09/26/2023 18:16:47 Ventricular premature complex(es) no longer present Electronically Signed On 09-28-2023 16:50:20 EDT by [facility] ECG 12-LEAD IMPRESSION: Atrial fibrillation Repolarization abnormality, prob rate related Electronically Signed On 09-28-2023 16:24:32 EDT by Lukas Ritchie [facility] ECG 12-LEAD IMPRESSION: Sinus rhythm PVCs PAC Nonspecific repol abnormality, lateral leads Electronically Signed On 09-28-2023 15:18:42 EDT by Lukas Ritchie [facility] Laboratory - Chemistry and C hemistry - challengeon 09-28-2023 Magnesium [Mass/Vol] 2.5 mg/dL High 1.6 - 2 .3 mg/dL [facility] MAGNESIUMon 09-28-2023 Magnesium [Mass/Vol] 2.5 mg/dL High 1.6-2.3 [facility] Comment on above: Performed By: #### L [id number], [id number] ####Framing Specialist: KIM GONZALES ([phone])[address] Magnesium [Mass/Vol]on 09-27 Interpretation and review of laboratory results Abnormal [facility] No Panel Informationon 09-[address] [place] [address] [facility] ME Interval 171 ms [facility] QRS [place] [address] [facility] QRSD Interval [address] [facility] QT Interval 334 ms [facility] QTC Interval 463 ms [facility] T Wave [place] [address] [facility] CV EPIPHANY [facility] CV EPIPHANY [facility] CV EPIPHANY [facility] P [place] [address] [facility] ME Interval 185 ms [facility] QRS [place] -[address] [facility] QRSD Interval [address] [facility] QT Interval 369 ms [facility] QTC Interval 461 ms [facility] T Wave [place] 164 degrees [facility] CV EPIPHANY [facility] No Panel InformationOrdered By: Jovanni Collado on 09-28-2023 [address] [place] [address] [facility] Work Phone: ME Interval 173 ms [facility] Work Phone: QRS [place] [address] [facility] Work Phone: QRSD Interval 95 ms [facility] Work Phone: QT Interval [address] [facility] Work Phone: QTC Interval 471 ms [facility] Work Phone: T Wave [place] -90 degrees [facility] Work Phone: [facility] Work Phone: No Panel InformationOrdered By: Lukas Ritchie on 09-28-2023 P [place] 0 degrees [facility] Work Phone: ME Interval 0 ms [facility] Work Phone: QRS [place] 35 degrees [facility] Work Phone: QRSD Interval 97 ms [facility] Work Phone: QT Interval 295 ms [facility] Work Phone: QTC Interval [address] [facility] Work Phone: T Wave [place] 236 degrees [facility] Work Phone: [facility] Work Phone: PHOSPHORUSon 09-28-2023 Phosphate [Mass/Vol] 4.1 mg/dL Normal 2.5-4.5 [facility] [employer] [facility] Comment on above: Performed By: #### L [id number], [id number] ####Framing Specialist: KIM GONZALES ([phone])[address] Phosphate [Moles/Vol]on 09-16 Interpretation and review of laboratory results Normal [facility] Phosphate [Mass/Vol] 4.1 mg/dL 2.5 - 4 .5 mg/dL [facility] [employer] Progress Noteon 09-28-2023 Progress Note PHYSICAL THERAPY [facility] Treatment Note Name/MRN: Eben Cruz ([id number]) Date of : 1945 Age: 78 y.o. Room/Bed: 1C-130/1C-130 A Discharge Recommendation: Nursing Home Facility Equipment Needed: No Other: He has a walker and a cane at home to use. Prior Level of Function ADL Assistance: Independent Ambulation Assistance: Device(s) used: cane Transfer Assistance: Independent Assessment Eben was awake in room, agreeable to get up to the chair. His nurse needed a weight for him, so he was transferred with mod assist of 2 to the scale, then off the scale and several steps to his bedside chair. He is having left hip pain (recent left hip replacement) and was given ice for comfort. His legs were extended and a pillow placed under his left leg lengthwise for comfort. He is having difficulty moving his left leg, due to pain, but is doing what he can. He was made comfortable in the chair with blankets and pillows, and left in the chair with his call light in reach. He is more alert today than yesterday. Recommend inpatient rehab upon discharge, to regain his mobility and strength and independence. Subjective Patient is having left hip pain, but wants to get to the chair. Transfers are difficult for him, requiring mod assist of 1 or 2 people. Recommend 2 person assist. Pain: RN managing pain. Medical Precautions: No active isolations Proper PPE donned/doffed in accordance with facility standards. Fall Risk: [place]ila Fall Risk Score: 70 (High Risk) Precautions/Restrictions: Left LE Weight Bearing: Lines/Drains/Airways: IV, O2, tele lines Left hip pain Overall Cognitive Status: His answers to questions is delayed, he may not be hearing what is being asked of him. Overall Orientation Status: Oriented to Time, Oriented to Situation, and Oriented to Person Family/Caregiver Present: none Objective Ambulation Ambulation 1 Assistive device(s) used: none and arm in arm with 2 person assist Assist level: Mod Assist, x2 Person Assist Distance (ft): 4', then 6' Quality of gait: antalgic, step to pattern, B foot clearance, uneven step length, narrow MARISA, slow evan Transfers/Mobility Sit to stand: Max Assist, x2 Person Assist Stand to sit: Mod Assist, x2 Person Assist He did well with backing up to the chair and feeling it with both legs, reaching for the arms of the chair. Device(s) used: arm in arm of 2 or having him hold onto therapist's arms. Exercises Bed Mobility Supine to sit: Max Assist, x2 Person Assist Sit to supine: Max Assist, x2 Person Assist Balance: poor Posture: fair Sitting - Static: Min Assist Sitting - Dynamic: Mod Assist Standing - Static: Mod Assist Standing - Dynamic: Max Assist, x2 Person Assist Plan Continue acute PT per plan of care. Safety/Education Safety Safety Devices in place: call light within reach, left in chair, gait belt, patient at risk for falls, and nurse notified Restraints: No Education Education Given To: patient Education Provided: PT Role, PT Goals, Gait Training, Precautions, Transfer Training, and Discharge Recommendations Education Method: Verbal and Demonstration Barriers to Learning: Cognition, Hearing Education Outcome: Continued Education Needed Outcome Measures AM-PAC AM-PAC Inpatient Mobility Raw Score (No Stairs) : 9 JH-HLM JH-HLM Score: Static standing (1 or more minutes) Goals Patient Stated Goal: To feel better. Encounter Problems Encounter Problems (Active) Mobility Patient will ambulate 50 feet with mod assist and least restrictive device in order to improve safety and independence with mobility. (Progressing) Start: 09/27/23 Expected End: 10/18/23 Patient will ascend and descend 2 stairs with one railing and min assist in order to safely negotiate home. (Not Addressed) Start: 09/27/23 Expected End: 10/18/23 Transfers Patient will perform bed mobility with min assist in order to improve independence and prepare for out of bed mobility. (Progressing) Start: 09/27/23 Expected End: 10/18/23 Patient will complete functional transfer with least restrictive device with mod assist in order to prepare for ambulation. (Progressing) Start: 09/27/23 Expected End: 10/18/23 Therapy Time Individual Co-treatment Time In 1025 Time Out 1055 Minutes 30 Timed Code Treatment Minutes: 30 Minutes Brielle Metzger PT [facility] Progress Note Palliative Care Interdisciplinary Team Note: Diagnosis: Principal Problem: 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 male with chief complaint of: coronary artery disease Reason Palliative Following: Goals of Care Plan: Ongoing Goals of Care Discussion Code Status: Full Code Medications: Palliative Care Not Managing any Medications Nursing: Nursing Home Care Social Work: No Unmet Needs Spiritual Care: Community [facility] Following Pharmacy: No Unmet Needs Psychology/Psychiatry: No Unmet Needs [facility] Vital signson 09-28-2023 Heart rate 116 /min bpm [facility] Heart rate 94 /min bpm [facility] Vital signsOrdered By: Jovanni Collado on 09-28-2023 Heart rate 109 /min bpm [employer] Work Phone: Vital signsOrdered By: Lukas Ritchie on 09-28-2023 Heart rate 140 /min bpm [facility] Phone: XR CHEST 1 VIEWon 09-28-2023 XR CHEST 1 VIEW Patient Name: EBEN CRUZ : 1945 [facility]#: [id number] Exam Date/Time: 09/28/2023 09:56 Procedure: XR CHEST 1 VIEW Ordering Provider: GOLDSTEIN SONJA Reason For Exam: DYSPNEA EXAMINATION: XR chest AP. EXAM DATE AND TIME: 09/28/2023 9:56 AM EDT INDICATION: DYSPNEA ADDITIONAL INFORMATION: 78-year-old male with dyspnea presents for evaluation COMPARISON: Chest x-ray dated 09/27/2023 TECHNIQUE: Frontal view of the chest was obtained. FINDINGS: Lines/support devices: Cardiac leads project over the chest, somewhat limiting evaluation. Cardiomediastinal silhouette: Borderline enlarged, unchanged. Lungs/pleura: Interval improvement in small layering pleural effusions bilaterally. There is also bibasilar scarring/atelectasis. No focal consolidation or evidence of pneumothorax. Osseous structures: Severe degenerative changes of the spine and shoulders are seen. No acute osseous abnormality is demonstrated. Other findings: None. IMPRESSION: Interval improvement in small layering pleural effusions bilaterally. Report Dictated on Electronically Signed By: Black Pickering MD Electronically Signed Date/Time: 09/28/2023 12:41 PM EDT Normal [facility] XR Chest Single viewon 09-27 [facility] Radiology Study observation (narrative) Si TV XR Chest Single viewOrdered By: Black Pickering on 09-28-2023 [facility] Phone: CALCIUM, IONIZEDon 4 CALCIUM IONIZED 3.50 mg/dL Low 4.30-5.20 [facility] Comment on above: Performed By: #### L AB54 ####Framing Specialist: KIM GONZALES ([phone])[facility] ([facility])[address] [place] [address] PH, IONIZED CALCIUM 7.54 High 7.31-7.46 [facility] Comment on above: Performed By: #### L AB54 ####Framing Specialist: KIM GONZLAES ([phone])[facility] ([facility])[address] [place] [address] CBC W Auto Differential pane l (Bld)Ordered By: Kim Hodge on 09-27-2023 Basophils (Bld) [#/Vol] 0.0 10*3/uL 0.0 - 0.2 10*3/uL [facility] Basophils/100 WBC (Bld) 0.3 % 0.0 - 2.0 % [facility] [employer] Eosinophils (Bld) [#/Vol] 0.0 10*3/uL 0.0 - 0.5 10*3/uL [facility] Eosinophils/100 WBC (Bld) 0.2 % 0.0 - 6.0 % [facility] [employer] Erythrocyte distribution width (RBC) [Ratio] 13.3 % 11.5 - 15.0 % [facility] [employer] Hematocrit (Bld) [Volume fraction] 32.4 % Low 40.0 - 52.0 % [facility] [employer] Hemoglobin (Bld) [Mass/Vol] 10.2 g/dL Low 13.0 - 18.0 g/dL [facility] [employer] Immature granulocytes (Bld) [#/Vol] 0.2 10*3/uL High NINF - 0.1 10*3/uL [facility] [employer] Immature granulocytes/100 WBC (Bld) 1.3 % 0.0 - 2.0 % [facility] [employer] Interpretation and review of laboratory results Abnormal [facility] IPF 3 [facility] Lymphocytes (Bld) [#/Vol] 1.2 10*3/uL 1.0 - 4.3 10*3/uL [facility] Lymphocytes/100 WBC (Bld) 9.4 % Low 15.0 - 45.0 % [facility] [employer] MCH (RBC) [Entitic mass] 30.3 pg 26.0 - 34.0 pg [facility] [employer] MCHC (RBC) [Mass/Vol] 31.5 % 30.5 - 36.0 % [facility] MCV (RBC) [Entitic vol] 96.1 fL 77.0 - 99.[address] [facility] Monocytes (Bld) [#/Vol] 1.1 10*3/uL High 0.0 - 0.9 10*3/uL [facility] Monocytes/100 WBC (Bld) 8.9 % 5.0 - 13.0 % [facility] Neutrophils (Bld) [#/Vol] 10.3 10*3/uL High 1.8 - 7.5 10*3/uL [facility] Neutrophils/100 WBC (Bld) 79.9 % 38.0 - 82.0 % [facility] Nucleated RBC/100 WBC (Bld) [Ratio] 0.2 % [facility] [employer] Platelet mean volume (Bld) [Entitic vol] 10.9 fL 9.0 - 12.7 fL [facility] Platelets (Bld) [#/Vol] 355 10*3/uL 140 - 440 10*3/uL [facility] RBC (Bld) [#/Vol] 3.37 10*6/uL Low 4.40 - 5.90 10*6/uL [facility] WBC (Bld) [#/Vol] 12.9 10*3/uL High 3.6 - 10.7 10*3/uL [facility] CBC WITH AUTO DIFFERENTIALon 09-27-2023 Basophils (Bld) [#/Vol] 0.0 10*3/uL Normal 0.0-0.2 [facility] Comment on above: Performed By: #### L [id number] ####Framing Specialist: KIM GONZALES ([phone])[address] Basophils/100 WBC (Bld) 0.3 % Normal 0.0-2.0 [facility] Comment on above: Performed By: #### L [id number] ####Framing Specialist: KIM GONZALES ([phone])[facility])[address] [place] [address] Eosinophils (Bld) [#/Vol] 0.0 10*3/uL Normal 0.0-0.5 [facility] Comment on above: Performed By: #### L [id number] ####Framing Specialist: KIM GONZALES ([phone])[facility])[address] [place] [address] Eosinophils/100 WBC (Bld) 0.2 % Normal 0.0-6.0 [facility] Comment on above: Performed By: #### L [id number] ####Framing Specialist: KIM GONZALES ([phone])[facility])[address] [place] [address] Erythrocyte distribution width (RBC) [Ratio] 13.3 % Normal 11.5-15.0 [facility] Comment on above: Performed By: #### L [id number] ####Framing Specialist: KIM GONZALES ([phone])[address] Hematocrit (Bld) [Volume fraction] 32.4 % Low 40.0-52.0 [facility] Comment on above: Performed By: #### L [id number] ####Framing Specialist: KIM GONZALES ([phone])[facility])[address] [place] [address] Hemoglobin (Bld) [Mass/Vol] 10.2 g/dL Low 13.0-18.0 [facility] Comment on above: Performed By: #### L [id number] ####Framing Specialist: KIM GONZALES ([phone])[facility])[address] [place] [address] IMMATURE GRANS % 1.3 % Normal 0.0-2.0 [facility] Comment on above: Performed By: #### L [id number] ####Framing Specialist: KIM GONZALES ([phone])[address] IMMATURE GRANS ABSOLUTE 0.2 10*3/uL High <0.1 [facility] Comment on above: Performed By: #### L [id number] ####Framing Specialist: KIM GONZALES ([phone])[facility] ([address] IPF 3 Normal [facility] Comment on above: Performed By: #### L [id number] ####Framing Specialist: KIM GNOZALES ([phone])[facility])[address] [place] [address] Lymphocytes (Bld) [#/Vol] 1.2 10*3/uL Normal 1.0-4.3 [facility] Comment on above: Performed By: #### L [id number] ####Framing Specialist: KIM GONZALES ([phone])[facility])[address] [place] [address] Lymphocytes/100 WBC (Bld) 9.4 % Low 15.0-45.0 [facility] Comment on above: Performed By: #### L [id number] ####Framing Specialist: KIM GONZALES ([phone])[facility])[address] [place] [address] MCH (RBC) [Entitic mass] 30.3 pg Normal 26.0-34.0 [facility] Comment on above: Performed By: #### L [id number] ####Framing Specialist: KIM GONZALES ([phone])[address] MCHC 31.5 % Normal 30.5-36.0 [facility] Comment on above: Performed By: #### L [id number] ####Framing Specialist: KIM GONZALES ([phone])[facility])[address] [place] [address] MCV (RBC) [Entitic vol] 96.1 fL Normal 77.0-99.0 [facility] Comment on above: Performed By: #### L [id number] ####Framing Specialist: KIM GONZALES ([phone])[facility])[address] [place] [address] Monocytes (Bld) [#/Vol] 1.1 10*3/uL High 0.0-0.9 [facility] Comment on above: Performed By: #### L [id number] ####Framing Specialist: KIM GONZALES ([phone])[facility] ([facility])[address] [place] [address] Monocytes/100 WBC (Bld) 8.9 % Normal 5.0-13.0 [facility] Comment on above: Performed By: #### L [id number] ####Framing Specialist: KIM GONZALES ([phone])[facility] ([facility])[address] [place] [address] NEUTROPHILS ABSOLUTE 10.3 10*3/uL High 1.8-7.5 [facility] Comment on above: Performed By: #### L [id number] ####Framing Specialist: KIM GONZALES ([phone])[facility])[address] [place] [address] Neutrophils/100 WBC (Bld) 79.9 % Normal 38.0-82.0 [facility] Comment on above: Performed By: #### L [id number] ####Framing Specialist: KIM GONZALES ([phone])[facility] ([facility])[address] [place] [address] NRBC 0.2 /100 WBCs Normal 0.0-2.0 [facility] Comment on above: Performed By: #### L [id number] ####Framing Specialist: KIM GONZALES ([phone])[facility] ([facility])[address] [place] [address] Platelet mean volume (Bld) [Entitic vol] 10.9 fL Normal 9.0-12.7 [facility] Comment on above: Performed By: #### L [id number] ####Framing Specialist: KIM GONZALES ([phone])[facility] ([facility])[address] [place] [address] [place] Platelets (Bld) [#/Vol] 355 10*3/uL Normal 140-440 [facility] Comment on above: Performed By: #### L [id number] ####Framing Specialist: KIM GONZALES ([phone])[facility] ([facility])[address] [place] [address] RBC (Bld) [#/Vol] 3.37 10*6/uL Low 4.40-5.90 [facility] Comment on above: Performed By: #### L [id number] ####Framing Specialist: KIM GONZALES ([phone])[facility])[address] [place] [address] WBC (Bld) [#/Vol] 12.9 10*3/uL High 3.6-10.7 [facility] Comment on above: Performed By: #### L [id number] ####Framing Specialist: KIM GONZALES ([phone])[facility])[address] [place] [address] COMPREHENSIVE METABOLIC PANE Miguel Angel 09-27-2023 Albumin [Mass/Vol] 3.1 g/dL Low 3.5-5.0 [facility] Comment on above: Performed By: #### L [id number] ####Framing Specialist: KIM GONZALES ([phone])[facility] ([facility])[address] [place] [address] ALP [Catalytic activity/Vol] 70 U/L Normal 38-126 [facility] Comment on above: Performed By: #### L AB17 ####Framing Specialist: KIM GONZALES ([phone])[facility])[address] [place] [address] ALT [Catalytic activity/Vol] 58 U/L High 0-49 [facility] Comment on above: Performed By: #### L AB17 ####Framing Specialist: KIM GONZALES ([phone])[facility])[address] [place] [address] Anion gap [Moles/Vol] 8 mmol/L Normal 3-13 [facility] Comment on above: Performed By: #### L AB17 ####Framing Specialist: KIM GONZALES ([phone])[facility])[address] [place] [address] AST [Catalytic activity/Vol] 89 U/L High 15-46 [facility] Comment on above: Performed By: #### L AB17 ####Framing Specialist: KIM GONZALES ([phone])[facility])[address] [place] [address] Bilirubin [Mass/Vol] 0.7 mg/dL Normal 0.2-1.3 [facility] Comment on above: Performed By: #### L AB17 ####Framing Specialist: KIM GONZALES ([phone])[facility])[address] [place] [address] Calcium [Mass/Vol] 8.1 mg/dL Low 8.4-10.4 [facility] Comment on above: Performed By: #### L AB17 ####Framing Specialist: KIM GONZALES ([phone])[facility])[address] [place] [address] Chloride [Moles/Vol] 104 mmol/L Normal 98-107 [facility] Comment on above: Performed By: #### L AB17 ####Framing Specialist: KIM GONZALES ([phone])[facility] ([facility])[address] [place] [address] CO2 [Moles/Vol] 26 mmol/L Normal 22-30 [facility] Comment on above: Performed By: #### L AB17 ####Framing Specialist: KIM GONZALES ([phone])[facility])[address] [place] [address] Creatinine [Mass/Vol] 1.04 mg/dL Normal 0.66-1.25 [facility] Comment on above: Performed By: #### L AB17 ####Framing Specialist: KIM GONZALES ([phone])[facility])[address] [place] [address] [place] GLOMERULAR FILTRATION RATE ML/MIN/1.73 SQ M.PREDICTED 72.6 mL/min/1.73m*2 Normal >60.0 [facility] Comment on above: Result Comment: Calc ulation based on the Chronic Kidney Disease Epidemiology Collaboration (CKD-EPI) equation refit without adjustment for race Performed By: #### L AB17 ####Framing Specialist: KIM GONZALES ([phone])[facility] ([facility])[address] [place] [address] Glucose [Mass/Vol] 150 mg/dL High 70-100 [facility] Comment on above: Performed By: #### L AB17 ####Framing Specialist: KIM GONZALES ([phone])[facility] ([facility])[address] [place] [address] Potassium [Moles/Vol] 3.4 mmol/L Low 3.5-5.1 [facility] Comment on above: Performed By: #### L AB17 ####Framing Specialist: KIM GONZALES ([phone])[facility])[address] [place] [address] Protein [Mass/Vol] 6.3 g/dL Normal 6.3-8.2 [facility] Comment on above: Performed By: #### L AB17 ####Framing Specialist: KIM GONZALES ([phone])[facility] ([facility])[address] [place] [address] Sodium [Moles/Vol] 138 mmol/L Normal 135-145 [facility] Comment on above: Performed By: #### L AB17 ####Framing Specialist: KIM GONZALES ([phone])[facility])[address] [place] [address] [place] Urea nitrogen [Mass/Vol] 47 mg/dL High 9-20 [facility] Comment on above: Performed By: #### L AB17 ####Framing Specialist: KIM GONZALES ([phone])[facility] ([facility])[address] [place] [address] [place] Albumin [Mass/Vol] 3.4 g/dL Low 3.5-5.0 [facility] Comment on above: Performed By: #### L AB113, [id number], LAB17 ####Framing Specialist: KIM GONZALES ([phone])[facility])[address] [place] [address] [place] ALP [Catalytic activity/Vol] 75 U/L Normal 38-126 [facility] Comment on above: Performed By: #### Barry ABRula, [id number], LAB17 ####Framing Specialist: KIM GONZALES ([phone])[facility] ([facility])[address] [place] [address] ALT [Catalytic activity/Vol] 56 U/L High 0-49 [facility] Comment on above: Performed By: #### Barry ABRula, [id number], LAB17 ####Framing Specialist: KIM GONZALES ([phone])[facility] ([facility])[address] [place] [address] Anion gap [Moles/Vol] 11 mmol/L Normal 3-13 [facility] Comment on above: Performed By: #### Barry ABRula, [id number], LAB17 ####Framing Specialist: KIM GONZALES ([phone])[facility] ([facility])[address] [place] [address] AST [Catalytic activity/Vol] 98 U/L High 15-46 [facility] Comment on above: Performed By: #### Barry SAN, [id number], LAB17 ####Framing Specialist: KIM GONZALES ([phone])[facility] ([facility])[address] [place] [address] Bilirubin [Mass/Vol] 1.0 mg/dL Normal 0.2-1.3 [facility] Comment on above: Performed By: #### Barry SAN, [id number], LAB17 ####Framing Specialist: KIM GONZALES ([phone])[facility] ([facility])[address] [place] [address] Calcium [Mass/Vol] 8.2 mg/dL Low 8.4-10.4 [facility] Comment on above: Performed By: #### Barry ABRula, [id number], LAB17 ####Framing Specialist: KIM GONZALES ([phone])[facility] ([facility])[address] [place] [address] [place] Chloride [Moles/Vol] 105 mmol/L Normal 98-107 [facility] Comment on above: Performed By: #### L AB113, [id number], LAB17 ####Framing Specialist: KIM GONZALES ([phone])[facility])[address] [place] [address] CO2 [Moles/Vol] 22 mmol/L Normal 22-30 [facility] Comment on above: Performed By: #### Barry AB113, [id number], LAB17 ####Framing Specialist: KIM GONZALES ([phone])[facility] ([facility])[address] [place] [address] Creatinine [Mass/Vol] 0.91 mg/dL Normal 0.66-1.25 [facility] Comment on above: Performed By: #### Barry AB113, [id number], LAB17 ####Framing Specialist: KIM GONZALES ([phone])[facility])[address] [place] [address] GLOMERULAR FILTRATION RATE ML/MIN/1.73 SQ M.PREDICTED 85.2 mL/min/1.73m*2 Normal >60.0 [facility] Comment on above: Result Comment: Calc ulation based on the Chronic Kidney Disease Epidemiology Collaboration (CKD-EPI) equation refit without adjustment for race Performed By: #### Barry AB113, [id number], LAB17 ####Framing Specialist: KIM GONZALES ([phone])[facility] ([facility])[address] [place] [address] Glucose [Mass/Vol] 140 mg/dL High 70-100 [facility] Comment on above: Performed By: #### L AB113, [id number], LAB17 ####Framing Specialist: KIM GONZALES ([phone])[facility])[address] [place] [address] [place] Potassium [Moles/Vol] 4.3 mmol/L Normal 3.5-5.1 [facility] Comment on above: Performed By: #### L AB113, [id number], LAB17 ####Framing Specialist: KIM GONZALES ([phone])[facility])[address] [place] [address] Protein [Mass/Vol] 6.9 g/dL Normal 6.3-8.2 [facility] Comment on above: Performed By: #### L AB113, [id number], LAB17 ####Framing Specialist: KIM GONZALES ([phone])[facility] ([facility])[address] [place] [address] Sodium [Moles/Vol] 138 mmol/L Normal 135-145 [facility] Comment on above: Performed By: #### L AB113, [id number], LAB17 ####Framing Specialist: KIM GONZALES ([phone])[facility] ([facility])[address] [place] [address] Urea nitrogen [Mass/Vol] 40 mg/dL High 9-20 [facility] Comment on above: Performed By: #### L AB113, [id number], LAB17 ####Framing Specialist: KIM GONZALES ([phone])[facility] ([facility])[address] [place] [address] Calcium.ionized [Moles/Vol]O rdered By: Christina Duenas on 09-27-2023 Calcium.ionized (Bld) [Moles/Vol] 3.50 mg/dL Low 4.30 - 5.20 mg/dL [facility] Interpretation and review of laboratory results Abnormal [facility] PH, IONIZED CALCIUM 7.54 High 7.31 - 7.46 [facility] Comprehensive metabolic 1998 panelon 09-27-2023 Albumin [Mass/Vol] 3.1 g/dL Low 3.5 - 5.0 g/dL [facility] ALP [Catalytic activity/Vol] 70 U/L 38 - 126 U/L [facility] ALT [Catalytic activity/Vol] 58 U/L High 0 - 49 U/L [facility] Anion gap [Moles/Vol] 8 mmol/L 3 - 13 mmol/L [facility] AST [Catalytic activity/Vol] 89 U/L High 15 - 46 U/L [facility] Bilirubin [Mass/Vol] 0.7 mg/dL 0.2 - 1 .3 mg/dL [facility] Calcium [Mass/Vol] 8.1 mg/dL Low 8.4 - 10. 4 mg/dL [facility] Chloride [Moles/Vol] 104 mmol/L 98 - 10 7 mmol/L [facility] CO2 [Moles/Vol] 26 mmol/L 22 - 30 mmol/L [facility] Creatinine [Mass/Vol] 1.04 mg/dL 0.66 - 1.25 mg/dL [facility] GFR/1.73 sq M.predicted MDRD (S/P/Bld) [Vol rate/Area] 72.6 mL/min/{1.73_m2} - PINF [facility] th Glucose [Mass/Vol] 150 mg/dL High 70 - 100 mg/dL [facility] Interpretation and review of laboratory results Abnormal [facility] Potassium [Moles/Vol] 3.4 mmol/L Low 3.5 - 5.1 mmol/L [facility] Protein [Mass/Vol] 6.3 g/dL 6.3 - 8.2 g/dL [facility] Sodium [Moles/Vol] 138 mmol/L 135 - 145 mmol/L [facility] Urea nitrogen [Mass/Vol] 47 mg/dL High 9 - 20 mg/dL [facility] Albumin [Mass/Vol] 3.4 g/dL Low 3.5 - 5.0 g/dL [facility] ALP [Catalytic activity/Vol] 75 U/L 38 - 126 U/L [facility] ALT [Catalytic activity/Vol] 56 U/L High 0 - 49 U/L [facility] Anion gap [Moles/Vol] 11 mmol/L 3 - 13 mmol/L [facility] AST [Catalytic activity/Vol] 98 U/L High 15 - 46 U/L [facility] Bilirubin [Mass/Vol] 1.0 mg/dL 0.2 - 1 .3 mg/dL [facility] Calcium [Mass/Vol] 8.2 mg/dL Low 8.4 - 10. 4 mg/dL [facility] Chloride [Moles/Vol] 105 mmol/L 98 - 10 7 mmol/L [facility] CO2 [Moles/Vol] 22 mmol/L 22 - 30 mmol/L [facility] Creatinine [Mass/Vol] 0.91 mg/dL 0.66 - 1.25 mg/dL [facility] GFR/1.73 sq M.predicted MDRD (S/P/Bld) [Vol rate/Area] 85.2 mL/min/{1.73_m2} - PINF [facility] Glucose [Mass/Vol] 140 mg/dL High 70 - 100 mg/dL [facility] Potassium [Moles/Vol] 4.3 mmol/L 3.5 - 5.1 mmol/L [facility] Protein [Mass/Vol] 6.9 g/dL 6.3 - 8.2 g/dL [facility] Sodium [Moles/Vol] 138 mmol/L 135 - 145 mmol/L [facility] Urea nitrogen [Mass/Vol] 40 mg/dL High 9 - 20 mg/dL [facility] Consulton 09-27-2023 Consult [facility] CONSULT Note Eben Cruz AGE: 78 y.o. GENDER: male : 1945 Subjective: HISTORY of PRESENT ILLNESS HPI Eben Cruz is a 78 y.o. male who presents for a wound consult. HPI: Eben Cruz is a 78 y.o. 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 He is known to [facility] outpatient. Had LHC in 2014 with non-obstructive CAD (per pt). NST 06/21/22 showed preserved EF, no ischemia. On 09/18/23, had total left hip replacement surgery at [facility]. Had complicated course requiring wound vac. Discharged to [facility] (SNF). Wound Care consulted for left hip wound. Patient states he had a hip replacement surgery on 09/18/23 at [facility]. RN at bedside and states he admitted with a Prevena to left hip- states it was removed yesterday. PAST MEDICAL HISTORY Past Medical History: Diagnosis Date Adverse effect of anesthesia Arthritis Coronary artery disease Delayed emergence from general anesthesia Hypertension Stroke (HCC) PAST SURGICAL HISTORY Past Surgical History: Procedure Laterality Date CARDIAC CATHETERIZATION N/A 09/26/2023 Performed by Amos Nichole MD at [facility] Cardiac Cath/EP Lab CARDIAC CATHETERIZATION N/A 09/26/2023 Performed by Amos Nichole MD at [facility] Cardiac Cath/EP Lab HERNIA REPAIR INVASIVE VASCULAR PROCEDURE N/A 09/26/2023 Performed by Amos Nichole MD at [facility] Cardiac Cath/EP Lab JOINT REPLACEMENT both hip replacements, L shoulder FAMILY HISTORY No family history on file. SOCIAL HISTORY Social History Tobacco Use Smoking status: Never Smokeless tobacco: Never Vaping Use Vaping Use: Never used Substance Use Topics Alcohol use: Never Drug use: Never ALLERGIES Allergies Allergen Reactions Entresto [Sacubitril-Valsartan] Nausea And Vomiting Wool Alcohol [Lanolin] MEDICATIONS No current facility-administered medications on file prior to encounter. Current Outpatient Medications on File Prior to Encounter Medication Sig Dispense Refill amLODIPine (Norvasc) 2.5 MG tablet Take 2.5 mg by mouth daily. Ascorbic Acid (vitamin C) 100 MG tablet Take 100 mg by mouth daily. Unknown dosage aspirin 81 MG EC tablet Take 81 mg by mouth daily. atorvastatin (Lipitor) 40 MG tablet Take 40 mg by mouth daily. Calcium Carbonate-Vitamin D 500-5 MG-MCG tablet Take by mouth. metoprolol succinate XL (Toprol-XL) 50 MG 24 hr tablet Take 25 mg by mouth in the morning and 25 mg in the evening. Do not crush or chew.. zinc gluconate 50 MG tablet Take 50 mg by mouth daily. REVIEW OF SYSTEMS Pertinent items are noted in HPI. Objective: BP 123/82 Pulse (!) 125 Temp (!) 35.4 ?C (95.8 ?F) Resp 19 Wt 93.8 kg (206 lb 12.8 oz) SpO2 94% PHYSICAL EXAM General appearance: in no apparent distress, alert, and oriented times 3 Skin: warm and dry Pulmonary: Normal effort, no respiratory distress, no cyanosis. Nasal cannula Extremities: no cyanosis, clubbing or edema- KIRIT hose in place Left hip: Incision well approximated. Sutures in place. No drainage noted. Periwound with scattered blistering noted. LABS CBC: Lab Results Component Value Date WBC 12.9 (H) 09/27/2023 HGB 10.2 (L) 09/27/2023 HGB 10.8 09/26/2023 HCT 32.4 (L) 09/27/2023 MCV 96.1 09/27/2023 PLT 355 09/27/2023 BMP: Lab Results Component Value Date NA 138 09/27/2023 K 4.3 09/27/2023 CL 105 09/27/2023 CO2 22 09/27/2023 PHOS 4.7 (H) 09/27/2023 BUN 40 (H) 09/27/2023 CREATININE 0.91 09/27/2023 PT/INR: No results found for: PROTIME, INR Prealbumin: No results found for: PREALBUMIN Albumin:No components found for: LABALBU Sed Rate:No results found for: SEDRATE Micro: No components found for: BC Assessment/Plan: Left hip: surgical -leave [employer]AC[employer]DER -follow up with surgeon when discharged Nutritional support Wound Care to follow Recommend to follow up at [facility] wound care center after hospital discharge. Any questions or concerns please secure chat [facility] wound/ostomy. Thank you for the consult! I personally obtained the morrow and critical portions of the history and physical exam. I reviewed the labs, imaging studies, and electronic medical record. I reviewed the chart documentation and discussed the patient with treatment team members. I have edited the note to reflect my clinical findings and my assessment and plan. Please note, the time of this note does not reflect the time I saw this patient today, but the time of this documentaton. Portions of this note including HPI, ROS, impression/plan, and examination may have been copied forward from admission to today as to provide important historical information essential in contributing to medical decision making. Documentation has been reviewed and edited as necessary to support clinical decision making for t (more content not included)... Normal [facility] ECG 12-LEADon 09-27-2023 ECG 12-LEAD IMPRESSION: Sinus tachycardia Low voltage, extremity and precordial leads Electronically Signed On 09-27-2023 15:25:53 EDT by Jefry Fleming Normal [facility] ECG 12-LEAD IMPRESSION: SINUS TACHYCARDIA Paired ventricular premature complexes Nonspecific repol abnormality, diffuse leads Electronically Signed On 09-27-2023 15:03:04 EDT by Jefry Fleming [facility] IDNon 09-27-2023 IDN Problem: Knowledge D eficit Goal: Patient/family/caregiver demonstrates understanding of disease process, treatment plan, medications, and discharge instructions Outcome: Progressing Problem: Potential for Compromised Skin Integrity Goal: Skin Integrity is Maintained or Improved Outcome: Progressing Goal: Nutritional status is improving Outcome: Progressing Problem: Urinary Incontinence Goal: Perineal skin integrity is maintained or improved Outcome: Progressing Normal [facility] Laboratory - Chemistry and C hemistry - challengeon 09-27-2023 Magnesium [Mass/Vol] 2.5 mg/dL High 1.6 - 2 .3 mg/dL [facility] MAGNESIUMon 09-27-2023 Magnesium [Mass/Vol] 2.5 mg/dL High 1.6-2.3 [facility] Comment on above: Performed By: #### L [id number], [id number], [id number] ####Framing Specialist: KIM GONZALES ([phone])[facility] ([address] No Panel InformationOrdered By: Jefry Fleming on 09-27-2023 P [place] 62 degrees [facility] Work Phone: ME Interval [address] [facility] Work Phone: QRS [place] 12 degrees [facility] Work Phone: QRSD Interval 89 ms [facility] Work Phone: QT Interval 314 ms [facility] Work Phone: QTC Interval [address] [facility] Work Phone: T Wave [place] [address] [facility] Work Phone: [facility] Work Phone: No Panel Informationon 09-26 CV EPIPHANY [facility] [employer] P [place] 0 degrees [facility] ME Interval 0 ms [facility] [employer] QRS [place] 70 degrees [facility] [employer] QRSD Interval 86 ms [facility] [employer] QT Interval 293 ms [facility] [employer] QTC Interval 419 ms [facility] [employer] T Wave [place] 256 degrees [facility] [employer] CV EPIPHANY [facility] Interpretation and review of laboratory results Abnormal [facility] Nursing Noteon 09-27-2023 Nursing Note Patient helped to ch air by physical therapy. His blood pressure was then 78/36. He did state he felt lightheaded. S Arnoldo RESIDENTIAL PROGRAM COORDINATOR at bedside. Assisted back to bed and blood pressure now up to 99/52. Family at bedside Normal [facility] PHOSPHORUSon 09-27-2023 Phosphate [Mass/Vol] 4.7 mg/dL High 2.5-4.5 [facility] Comment on above: Performed By: #### L [id number], [id number], LAB17 ####Framing Specialist: KIM GONZALES ([phone])[facility] ([address] Phosphate [Moles/Vol]on 09-16 Phosphate [Mass/Vol] 4.7 mg/dL High 2.5 - 4 .5 mg/dL [facility] Progress Noteon 09-27-2023 Progress Note Checked on the patie nt at around 7:30pm Asymptomatic, reports his breathing is significantly better with lasix and he is continuing to make good urine. Negative 1.4 L so far today in chart. Normal renal function. Tachycardia with HR 100-105, BP 115/44. On 2 L NC saturating 98%. On exam JVD ~6-7cm. No rales appreciated on exam. Continues to have good urine output. Given low diastolic Bps will hold additional dose of lasix for tonight and reevaluate in the morning. Normal [facility] Progress Note .Nutrition rescreen completed. Chart reviewed. Patient to be monitored and followed by the diet clean room technician. DEVORA Lares Normal [facility] Vital signsOrdered By: Alina Fleming on 09-27-2023 Heart rate 103 /[facility] b[facility] Work Phone: Vital signson 09-27-2023 Heart rate 122 /min bpm [facility] [employer] XR CHEST 1 VIEWon 09-27-2023 XR CHEST 1 VIEW Patient Name: EBEN CRUZ : 1945 Exam Date/Time: 09/27/2023 08:42 Procedure: XR CHEST 1 VIEW Ordering Provider: GOLDSTEIN SONJA Reason For Exam: DYSPNEA CHEST - PORTABLE: CLINICAL INDICATION: Respiratory distress for follow up. Dyspnea. TECHNIQUE: Portable AP COMPARISON: One day ago. IMPRESSION: FINDINGS/IMPRESSION: Limitations: Patient positioning Lines, tubes, and devices: None. Cardiomediastinal silhouette: Unchanged in appearance. Lungs/Pleura: Small layering pleural effusions with bibasilar atelectasis and/or pneumonia likely without significant change. Pulmonary vascular congestion/pulmonary edema also without significant interval change. No pneumothorax Osseous structures: Unchanged in appearance with postsurgical changes in the left glenohumeral joint from prior arthroplasty with associated deformity of the scapular/glenoid. Soft tissues: No soft tissue abnormality is detected. Report Dictated on Electronically Signed By: Zeb Sommer MD Electronically Signed Date/Time: 09/27/2023 10:35 AM EDT Normal [facility] XR Chest Single viewon 09-26 [facility] Radiology Study observation (narrative) [facility] XR Chest Single viewOrdered By: Faviola Sommer on 09-27-2023 [facility] [employer] Work Phone: APTTon 09-26-2023 aPTT Coag (Bld) [Time] 38.2 s High 20.0-30.5 [facility] Comment on above: Result Comment: RINA Vogel COMMENTS: NOTE: The therapeutic time for Heparin anticoagulation, based on Xa activity inhibition, is an APTT of 46-80 seconds. Performed By: #### L [id number] ####Framing Specialist: KIM GONZALES ([phone])[address] BLOOD GAS, VENOUSon 09-26-19 24 Base excess Calc (BldV) [Moles/Vol] -1.7000 mmol/L Normal -3.0-3.0 [facility] Comment on above: Performed By: #### L AB79 ####Framing Specialist: KIM [id number])[address] CO2 [Moles/Vol] 23.3 mmol/L Low 24.0-28.0 [facility] Comment on above: Performed By: #### L AB79 ####Framing Specialist: KIM [phone])[address] HCO3 (Bld) [Moles/Vol] 22.2 mmol/L Low 23.0-27.0 [facility] Comment on above: Performed By: #### L AB79 ####Framing Specialist: KIM [phone])[facility])[address] [place] [address] Hemoglobin (Bld) [Mass/Vol] 10.8 g/dL Normal Screen Only [facility] Comment on above: Performed By: #### L AB79 ####Framing Specialist: KIM GONZALES ([phone])[facility])[address] [place] [address] OXYGEN (MM HG) IN VENOUS BLOOD 50.7 mm Hg High 30.0-50.0 [facility] Comment on above: Performed By: #### L AB79 ####Framing Specialist: KIM GONZALES ([phone])[facility])[address] [place] [address] OXYGEN SATURATION (%) IN VENOUS BLOOD 82.7 % High 60.0-80.0 [facility] Comment on above: Performed By: #### L AB79 ####Framing Specialist: KIM GONZALES ([phone])[facility])[address] [place] [address] PCO2, CHRISTINE 34.6 mm Hg Low 40.0-55.0 [facility] Comment on above: Performed By: #### L AB79 ####Framing Specialist: KIM GONZALES ([phone])[facility])[address] [place] [address] PH VENOUS 7.425 Normal 7.330-7.43 0 [facility] Comment on above: Performed By: #### L AB79 ####Framing Specialist: KIM GONZALES ([phone])[facility])[address] [place] [address] SOURCE OF OXYGEN Nasal cannula Normal [facility] Comment on above: Result Comment: 3 li ters ORDER COMMENTS: Interpret with caution, pO2 value falsely increased due to vacuum in tube. For accurate results, please draw on a syringe. Performed By: #### L AB79 ####Framing Specialist: KIM GONZALES ([phone])[facility])[address] [place] [address] CARECOORDon 09-26-2023 [facility] Care Managment Initi al Assessment Date: 09/26/2023 Patient Name: Eben Cruz : 1945 Patient Information Source of Information: Patient [employer] Name/Contact Information: law Mendez Cognition/Language: WFL - Within Functional Limits Permission given to speak with patient agency sales representative/caregiver as indicated: Confirmation of Payer with patient/family: Yes Payer Name: [employer] Medicare Advantage : Confirmation of Primary Care Physician: Confirmed PCP Name: Iwona Stewart Seen in last 2 years?: Yes Primary Caregiver: Self If assistance needed, confirmed caregiver ready, willing and able to care for patient at discharge: (plan is to return to [facility]) Confirmed with: Living Arrangements Current Residence: House Number of Floors 1 Number of Entry Steps: 1 Bed/Bath Levels: Both first floor Facility: Facility Name: Plan to Return: Lives with: Alone Support Systems: Children Activities of Daily Living Ambulation: Independent Bathing/Dressing: Independent Elimination/Continence/Toil eting: Independent Feeding: Independent Who Assists with Activities of Daily Living: Instrumental Activities of Daily Living Prescription Coverage: Yes Pharmacy Used: [facility] Medication Management: Independent Transportation/Shopping: Independent Transportation Mode: Car Needs Assistance with Transportation at Discharge: Yes Meal Preparation: Independent Laundry/Cleaning: Independent Finances/Bill Paying: Independent Communication: Independent Types of Care Services/Equipment Utilized Care Services: Dialysis Type: Durable Medical Equipment: Cane, Walker (did not use walker prior to his stroke) Patient's Goal/Discharge Plan Patient expects to be discharged to: return to [facility] Discharge Planning Actions: Patient's Choice Rights and [employer] and Collaborative Relationships Disclosed as Indicated for Post-Acute Care: Yes Interdisciplinary Team Engagement: Acute Rehab Social Work Referral for: Additional Information: Pt admitted from [facility] for cardiac interventional procedure. Pt had a stroke 04/2023, Hip surgery last , then went to [facility] in [place]. Transferred to [facility] for planned cardiac intervention. PCI with 3 stents and lithotripsy this AM. 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 Used a cane prn. Has been at [facility] since Sun per dtr. Plan is to return at [facility] tasked to send referral. [facility] Will need [facility]OT for auth. Arminda Lawler RN Normal [facility] System [facility] CBC W Auto Differential pane l (Bld)on 09-26-2023 Basophils (Bld) [#/Vol] 0.1 10*3/uL 0.0 - 0.2 10*3/uL [facility] Basophils/100 WBC (Bld) 0.4 % 0.0 - 2.0 % [facility] Eosinophils (Bld) [#/Vol] 0.0 10*3/uL 0.0 - 0.5 10*3/uL [facility] Eosinophils/100 WBC (Bld) 0.1 % 0.0 - 6.0 % [facility] Erythrocyte distribution width (RBC) [Ratio] 13.2 % 11.5 - 15.0 % [facility] Hematocrit (Bld) [Volume fraction] 30.6 % Low 40.0 - 52.0 % [facility] Hemoglobin (Bld) [Mass/Vol] 9.8 g/dL Low 13.0 - 18.0 g/dL [facility] Immature granulocytes (Bld) [#/Vol] 0.1 10*3/uL High NINF - 0.1 10*3/uL [facility] Immature granulocytes/100 WBC (Bld) 0.7 % 0.0 - 2.0 % [facility] Interpretation and review of laboratory results Abnormal [facility] Lymphocytes (Bld) [#/Vol] 1.3 10*3/uL 1.0 - 4.3 10*3/uL [facility] Lymphocytes/100 WBC (Bld) 8.7 % Low 15.0 - 45.0 % [facility] MCH (RBC) [Entitic mass] 30.0 pg 26.0 - 34.0 pg [facility] MCHC (RBC) [Mass/Vol] 32.0 % 30.5 - 36.0 % [facility] MCV (RBC) [Entitic vol] 93.6 fL 77.0 - 99.0 fL [facility] Monocytes (Bld) [#/Vol] 1.2 10*3/uL High 0.0 - 0.9 10*3/uL [facility] Monocytes/100 WBC (Bld) 8.1 % 5.0 - 13.0 % [facility] Neutrophils (Bld) [#/Vol] 12.2 10*3/uL High 1.8 - 7.5 10*3/uL [facility] Neutrophils/100 WBC (Bld) 82.0 % 38.0 - 82.0 % [facility] Nucleated RBC/100 WBC (Bld) [Ratio] 0.0 % [facility] Platelet mean volume (Bld) [Entitic vol] 10.5 fL 9.0 - 12.7 fL [facility] Platelets (Bld) [#/Vol] 343 10*3/uL 140 - 440 10*3/uL [facility] RBC (Bld) [#/Vol] 3.27 10*6/uL Low 4.40 - 5.90 10*6/uL [facility] WBC (Bld) [#/Vol] 14.9 10*3/uL High 3.6 - 10.7 10*3/uL [facility] CBC WITH AUTO DIFFERENTIALon 09-26-2023 Basophils (Bld) [#/Vol] 0.1 10*3/uL Normal 0.0-0.2 [facility] Comment on above: Performed By: #### L [id number] ####Framing Specialist: KIM GONZALES ([phone])[address] Basophils/100 WBC (Bld) 0.4 % Normal 0.0-2.0 [facility] Comment on above: Performed By: #### L [id number] ####Framing Specialist: KIM GONZALES ([phone])[facility])[address] [place] [address] Eosinophils (Bld) [#/Vol] 0.0 10*3/uL Normal 0.0-0.5 [facility] Comment on above: Performed By: #### L [id number] ####Framing Specialist: KIM GONZALES ([phone])[facility])[address] [place] [address] [place] Eosinophils/100 WBC (Bld) 0.1 % Normal 0.0-6.0 [facility] Comment on above: Performed By: #### L [id number] ####Framing Specialist: KIM GONZALES ([phone])[address] Erythrocyte distribution width (RBC) [Ratio] 13.2 % Normal 11.5-15.0 [facility] Comment on above: Performed By: #### L [id number] ####Framing Specialist: KIM GONZALES ([phone])[address] Hematocrit (Bld) [Volume fraction] 30.6 % Low 40.0-52.0 [facility] Comment on above: Performed By: #### L [id number] ####Framing Specialist: KIM GONZALES ([phone])[address] Hemoglobin (Bld) [Mass/Vol] 9.8 g/dL Low 13.0-18.0 [facility] Comment on above: Performed By: #### L [id number] ####Framing Specialist: KIM GONZALES ([phone])[address] IMMATURE GRANS % 0.7 % Normal 0.0-2.0 [facility] Comment on above: Performed By: #### L [id number] ####Framing Specialist: KIM GONZALES ([phone])[address] IMMATURE GRANS ABSOLUTE 0.1 10*3/uL High <0.1 [facility] Comment on above: Performed By: #### L [id number] ####Framing Specialist: KIM GONZALES ([phone])[address] Lymphocytes (Bld) [#/Vol] 1.3 10*3/uL Normal 1.0-4.3 [facility] Comment on above: Performed By: #### L [id number] ####Framing Specialist: KIM GONZALES ([phone])[facility])[address] [place] [address] Lymphocytes/100 WBC (Bld) 8.7 % Low 15.0-45.0 [facility] Comment on above: Performed By: #### L [id number] ####Framing Specialist: KIM GONZALES ([phone])[facility])[address] [place] [address] MCH (RBC) [Entitic mass] 30.0 pg Normal 26.0-34.0 [facility] Comment on above: Performed By: #### L [id number] ####Framing Specialist: KIM GONZALES ([phone])[facility])[address] [place] [address] MCHC 32.0 % Normal 30.5-36.0 [facility] Comment on above: Performed By: #### L [id number] ####Framing Specialist: KIM GONZALES ([phone])[facility])[address] [place] [address] MCV (RBC) [Entitic vol] 93.6 fL Normal 77.0-99.0 [facility] Comment on above: Performed By: #### L [id number] ####Framing Specialist: KIM GONZALES ([phone])[facility])[address] [place] [address] Monocytes (Bld) [#/Vol] 1.2 10*3/uL High 0.0-0.9 [facility] Comment on above: Performed By: #### L [id number] ####Framing Specialist: KIM GONZALES ([id number])[facility])[address] [place] [address] Monocytes/100 WBC (Bld) 8.1 % Normal 5.0-13.0 [facility] Comment on above: Performed By: #### L [id number] ####Framing Specialist: KIM GONZALES ([phone])[facility])[address] [place] [address] NEUTROPHILS ABSOLUTE 12.2 10*3/uL High 1.8-7.5 [facility] Comment on above: Performed By: #### L [id number] ####Framing Specialist: KIM GONZALES ([phone])[facility] ([facility])[address] [place] [address] Neutrophils/100 WBC (Bld) 82.0 % Normal 38.0-82.0 [facility] Comment on above: Performed By: #### L [id number] ####Framing Specialist: KIM GONZALES ([phone])[facility] ([facility])[address] [place] [address] NRBC 0.0 /100 WBCs Normal 0.0-2.0 [facility] Comment on above: Performed By: #### L [id number] ####Framing Specialist: KIM GONZALES ([phone])[facility] ([facility])[address] [place] [address] Platelet mean volume (Bld) [Entitic vol] 10.5 fL Normal 9.0-12.7 [facility] Comment on above: Performed By: #### L [id number] ####Framing Specialist: KIM GONZALES ([id number])[facility] ([facility])[address] [place] [address] Platelets (Bld) [#/Vol] 343 10*3/uL Normal 140-440 [facility] Comment on above: Performed By: #### L [id number] ####Framing Specialist: KIM GONZALES ([id number])[facility] ([facility])[address] [place] [address] [place] RBC (Bld) [#/Vol] 3.27 10*6/uL Low 4.40-5.90 [facility] Comment on above: Performed By: #### L [id number] ####Framing Specialist: KIM GONZALES ([phone])[facility] ([facility])[address] [place] [address] [place] WBC (Bld) [#/Vol] 14.9 10*3/uL High 3.6-10.7 [facility] Comment on above: Performed By: #### L [id number] ####Framing Specialist: KIM GONZALES ([phone])[facility])[address] [place] [address] COMPREHENSIVE METABOLIC PANE Miguel Angel 09-26-2023 Albumin [Mass/Vol] 3.3 g/dL Low 3.5-5.0 [facility] Comment on above: Performed By: #### Barry AB103, [id number], LAB17 ####Framing Specialist: KIM GONZALES ([phone])[facility] ([facility])[address] [place] [address] ALP [Catalytic activity/Vol] 82 U/L Normal 38-126 [facility] Comment on above: Performed By: #### Barry AB103, [id number], LAB17 ####Framing Specialist: KIM GONZALES ([phone])[facility] ([facility])[address] [place] [address] ALT [Catalytic activity/Vol] 55 U/L High 0-49 [facility] Comment on above: Performed By: #### Barry AB103, [id number], LAB17 ####Framing Specialist: KIM GONZALES ([id number])[facility] ([facility])[address] [place] [address] Anion gap [Moles/Vol] 8 mmol/L Normal 3-13 [facility] Comment on above: Performed By: #### L AB103, [id number], LAB17 ####Framing Specialist: IKM GONZALES ([phone])[facility])[address] [place] [address] AST [Catalytic activity/Vol] 130 U/L High 15-46 [facility] Comment on above: Performed By: #### L [id number], [id number], [id number] ####Framing Specialist: KIM GONZALES ([phone])[facility])[address] [place] [address] Bilirubin [Mass/Vol] 0.8 mg/dL Normal 0.2-1.3 [facility] Comment on above: Performed By: #### L AB103, [id number], LAB17 ####Framing Specialist: KIM GONZALES ([phone])[facility] ([facility])[address] [place] [address] Calcium [Mass/Vol] 8.5 mg/dL Normal 8.4-10.4 [facility] Comment on above: Performed By: #### L AB103, [id number], LAB17 ####Framing Specialist: KIM GONZALES ([phone])[facility] ([facility])[address] [place] [address] [place] Chloride [Moles/Vol] 105 mmol/L Normal 98-107 [facility] Comment on above: Performed By: #### Barry AB103, [id number], LAB17 ####Framing Specialist: KIM GONZALES ([phone])[facility] ([facility])[address] [place] [address] CO2 [Moles/Vol] 23 mmol/L Normal 22-30 [facility] Comment on above: Performed By: #### Barry AB103, [id number], LAB17 ####Framing Specialist: KIM GONZALES ([phone])[facility] ([facility])[address] [place] [address] Creatinine [Mass/Vol] 0.86 mg/dL Normal 0.66-1.25 [facility] Comment on above: Performed By: #### Barry AB103, [id number], LAB17 ####Framing Specialist: KIM GONZALES ([phone])[facility] ([facility])[address] [place] [address] [place] GLOMERULAR FILTRATION RATE ML/MIN/1.73 SQ M.PREDICTED 87.5 mL/min/1.73m*2 Normal >60.0 [facility] Comment on above: Result Comment: Calc ulation based on the Chronic Kidney Disease Epidemiology Collaboration (CKD-EPI) equation refit without adjustment for race Performed By: #### L AB103, [id number], LAB17 ####Framing Specialist: KIM GONZALES ([phone])[facility] ([facility])[address] [place] [address] [place] Glucose [Mass/Vol] 155 mg/dL High 70-100 [facility] Comment on above: Performed By: #### L AB103, [id number], LAB17 ####Framing Specialist: KIM GONZALES ([phone])[facility] ([facility])[address] [place] [address] Potassium [Moles/Vol] 4.4 mmol/L Normal 3.5-5.1 [facility] Comment on above: Performed By: #### L AB103, [id number], LAB17 ####Framing Specialist: KIM GONZALES ([phone])[facility] ([facility])[address] [place] [address] Protein [Mass/Vol] 6.6 g/dL Normal 6.3-8.2 [facility] Comment on above: Performed By: #### Barry AB103, [id number], LAB17 ####Framing Specialist: KIM GONZALES ([phone])[facility] ([facility])[address] [place] [address] Sodium [Moles/Vol] 135 mmol/L Normal 135-145 [facility] Comment on above: Performed By: #### Barry AB103, [id number], LAB17 ####Framing Specialist: KIM GONZALES ([phone])[facility] ([facility])[address] [place] [address] Urea nitrogen [Mass/Vol] 39 mg/dL High 9-20 [facility] Comment on above: Performed By: #### L AB103, [id number], LAB17 ####Framing Specialist: KIM GONZALES ([phone])[facility] ([facility])[address] [place] [address] Cardiac catheterization stud yon 09-26-2023 [facility] Comprehensive metabolic 1998 panelon 09-26-2023 Albumin [Mass/Vol] 3.3 g/dL Low 3.5 - 5.0 g/dL [facility] ALP [Catalytic activity/Vol] 82 U/L 38 - 126 U/L [facility] ALT [Catalytic activity/Vol] 55 U/L High 0 - 49 U/L [facility] Anion gap [Moles/Vol] 8 mmol/L 3 - 13 mmol/L [facility] AST [Catalytic activity/Vol] 130 U/L High 15 - 46 U/L [facility] Bilirubin [Mass/Vol] 0.8 mg/dL 0.2 - 1 .3 mg/dL [facility] Calcium [Mass/Vol] 8.5 mg/dL 8.4 - 10. 4 mg/dL [facility] Chloride [Moles/Vol] 105 mmol/L 98 - 10 7 mmol/L [facility] CO2 [Moles/Vol] 23 mmol/L 22 - 30 mmol/L [facility] Creatinine [Mass/Vol] 0.86 mg/dL 0.66 - 1.25 mg/dL [facility] GFR/1.73 sq M.predicted MDRD (S/P/Bld) [Vol rate/Area] 87.5 mL/min/{1.73_m2} - PINF [facility] th Glucose [Mass/Vol] 155 mg/dL High 70 - 100 mg/dL [facility] Interpretation and review of laboratory results Abnormal [facility] Potassium [Moles/Vol] 4.4 mmol/L 3.5 - 5.1 mmol/L [facility] Protein [Mass/Vol] 6.6 g/dL 6.3 - 8.2 g/dL [facility] Sodium [Moles/Vol] 135 mmol/L 135 - 145 mmol/L [facility] Urea nitrogen [Mass/Vol] 39 mg/dL High 9 - 20 mg/dL [facility] IDNon 09-26-2023 IDN Problem: Knowledge D eficit Goal: Patient/family/caregiver demonstrates understanding of disease process, treatment plan, medications, and discharge instructions Outcome: Progressing Problem: Potential for Compromised Skin Integrity Goal: Skin Integrity is Maintained or Improved Outcome: Progressing Goal: Nutritional status is improving Outcome: Progressing Problem: Urinary Incontinence Goal: Perineal skin integrity is maintained or improved Outcome: Progressing Normal [facility] Laboratory - Chemistry and C hemistry - challengeOrdered By: Shelbi Lopez on 09-26-2023 Base excess Calc (BldV) [Moles/Vol] -1.7000 mmol/L -3.0 - 3.0 mmol/L [facility] CO2 (BldV) [Partial pressure] 34.6 mm[Hg] Low [facility] CO2 [Moles/Vol] 23.3 mmol/L Low 24.0 - 28.0 mmol/L [facility] HCO3 (Bld) [Moles/Vol] 22.2 mmol/L Low 23.0 - 27.0 mmol/L [facility] Oxygen (BldV) [Partial pressure] 50.7 mm[Hg] High [facility] pH (BldV) 7.425 [pH] 7.330 - 7.430 [facility] Laboratory - Chemistry and C hemistry - challengeon 09-26-2023 Magnesium [Mass/Vol] 2.4 mg/dL High 1.6 - 2 .3 mg/dL [facility] Laboratory - Hematology and Cell countsOrdered By: Shelbi Lopez on 09-26-2023 Hemoglobin (Bld) [Mass/Vol] 10.8 g/dL Screen Only [facility] MAGNESIUMon 09-26-2023 Magnesium [Mass/Vol] 2.4 mg/dL High 1.6-2.3 [facility] Comment on above: Performed By: #### L AB103, [id number], LAB17 ####Framing Specialist: KIM GONZALES ([phone])[address] Magnesium [Mass/Vol]on 09-25 Interpretation and review of laboratory results Abnormal [facility] No Panel InformationOrdered By: Shelbi Lopez on 09-26-2023 Interpretation and review of laboratory results Abnormal [facility] Source Of Oxygen Nasal cannula [facility] No Panel Informationon 09-25 [facility] Interpretation and review of laboratory results Abnormal [facility] POCT ACT 180 High [facility] POCT ACT 349 High [facility] POCT ACT 255 High [facility] POCT ACT 304 High [facility] Interpretation and review of laboratory results Abnormal [facility] POCT ACT 159 High [facility] CV CPACS HEMO Radiology Study observation (narrative) [facility] Radiology Study observation (narrative) [facility] Radiology Study observation (narrative) [facility] Radiology Study observation (narrative) [facility] Radiology Study observation (narrative) [facility] PHOSPHORUSon 09-26-2023 Phosphate [Mass/Vol] 3.9 mg/dL Normal 2.5-4.5 [facility] Comment on above: Performed By: #### L AB103, [id number], LAB17 ####Framing Specialist: KIM GONZALES ([phone])[facility] ([address] Phosphate [Moles/Vol]on 09-16 Interpretation and review of laboratory results Normal [facility] Phosphate [Mass/Vol] 3.9 mg/dL 2.5 - 4 .5 mg/dL [facility] Progress Noteon 09-26-2023 Progress Note Evaluated patient af ter being notified having tachypnea and tachycardia. IV Fluids stopped. Patient laying flat in bed, oxygen on with O2 sat 92-93%. HR 115, + JVD noted. Patient complains of dyspnea. Faint crackles left base. Will give Lasix 40 mg IV x 1 now and repeat in am. His EF is low, LVEDP 18, will start GDMT in am (ARB and Reyes). Right femoral site without bleeding or hematoma. Sheath was removed, dressing dry and intact. Normal [facility] Vital signsOrdered By: Shelbi Lopez on 09-26-2023 Oxygen saturation in Venous blood 82.7 % High 60.0 - 80.0 % [facility] XR CHEST 1 VIEWon 09-26-2023 XR CHEST 1 VIEW Patient Name: EBEN CRUZ : 1945 Exam Date/Time: 09/26/2023 18:37 Procedure: XR CHEST 1 VIEW Ordering Provider: COELHO NICHOLAS Reason For Exam: Shortness of breath INDICATION: 78-year-old male; shortness of breath. VIEWS: Chest portable-2 images COMPARISON: None. FINDINGS: The trachea is midline. The cardiac silhouette is upper limits of normal. Multiple monitoring wires and leads are present, limiting evaluation. 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 Left shoulder arthroplasty. Bilateral patchy airspace opacities are present. Bilateral lung haziness with blunting of the costophrenic angles suggestive of layering pleural effusions. IMPRESSION: 1. Bilateral pleural effusions with compressive atelectasis and or infiltrates. 2. Moderate pulmonary edema and/or infiltrates. Report Dictated on Electronically Signed By: Ora Cornell MD Electronically Signed Date/Time: 09/26/2023 7:29 PM EDT Normal [facility] XR Chest Single viewon 09-25 [facility] Radiology Study observation (narrative) [facility] XR Chest Single viewOrdered By: Ora Cornell on 09-26-2023 [facility] [employer] Work Phone: aPTT Coag (Bld) [Time]on aPTT Coag (PPP) [Time] 38.2 s High 20.0 - 30.5 s [facility] Interpretation and review of laboratory results Abnormal [facility] APTTon 09-25-2023 aPTT Coag (Bld) [Time] 36.2 s High 20.0-30.5 [facility] Comment on above: Result Comment: RINA Vogel COMMENTS: NOTE: The therapeutic time for Heparin anticoagulation, based on Xa activity inhibition, is an APTT of 46-80 seconds. Performed By: #### L AB325 ####Framing Specialist: KIM GONZALES ([phone])[address] aPTT Coag (Bld) [Time] 32.8 s High 20.0-30.5 [facility] Comment on above: Result Comment: RINA Vogel COMMENTS: NOTE: The therapeutic time for Heparin anticoagulation, based on Xa activity inhibition, is an APTT of 46-80 seconds. Performed By: #### L AB325 ####Framing Specialist: KIM GONZALES ([phone])[facility] [employer] Absolute lymphocyte countOrd ered By: Natalia Garcia on 09-25-2023 Lymphocytes Auto (Unsp spec) [#/Vol] 1.49 10*3/uL 0.83-4.51 [facility] Automated lymphocyte count a s percentage of total leukocytesOrdered By: Natalia Garcia on 09-25-2023 Lymphocytes/100 WBC Auto (Unsp spec) 13.9 % 19-41 [facility] Basophil percentageOrdered B y: Natalia Garcia on 09-25-2023 Basophil percentage 4.4 mg/dL 2.5-4.9 [facility] Basophils/100 WBC (Bld) 0.6 % 0-1 [facility] Bilirubin [Mass/Vol] 0.80 mg/dL 0.20-1.00 [facility] Comment on above: For patients on eltr ombopag therapy, use of [employer] [place] TBIL is not recommended. Chloride [Moles/Vol] 107 mmol/L 98-107 [facility] Eosinophils/100 WBC (Bld) 0.4 % 0-5 [facility] Glucose [Mass/Vol] 146 mg/dL 74-106 [facility] Comment on above: Fasting Glucose resu lt greater than or equal to 126 mg/dL suggests DIABETES MELLITUS per A.D.A. criteria. Hemoglobin (Bld) [Mass/Vol] 10.0 g/dL 13.0-16.5 [facility] Monocytes/100 WBC (Bld) 9.7 % 0-10 [facility] Neutrophils (Bld) [#/Vol] 8.0 10*3/uL 2.0-7.7 [facility] Neutrophils/100 WBC (Bld) 74.6 % 47-70 [facility] Potassium [Moles/Vol] 4.5 mmol/L 3.5-5.1 [facility] Protein [Mass/Vol] 6.7 g/dL 6.4-8.2 [facility] Sodium [Moles/Vol] 138 mmol/L 136-145 [facility] WBC (Bld) [#/Vol] 10.7 10*3/uL 4.4-11.0 [facility] CBC (HEMOGRAM)on 09-25-2023 Erythrocyte distribution width (RBC) [Ratio] 13.2 % Normal 11.5-15.0 [facility] Comment on above: Performed By: #### L [id number] ####Framing Specialist: KIM GONZALES ([phone])[address] Hematocrit (Bld) [Volume fraction] 30.4 % Low 40.0-52.0 [facility] Comment on above: Performed By: #### L AB294 ####Framing Specialist: KIM GONZALES ([phone])[facility] ([facility])[address] [place] [address] Hemoglobin (Bld) [Mass/Vol] 9.8 g/dL Low 13.0-18.0 [facility] Comment on above: Performed By: #### L AB294 ####Framing Specialist: KIM GONZALES ([phone])[facility] ([facility])[address] [place] [address] MCH (RBC) [Entitic mass] 30.5 pg Normal 26.0-34.0 [facility] Comment on above: Performed By: #### L AB294 ####Framing Specialist: KIM GONZALES ([phone])[facility])[address] [place] [address] MCHC 32.2 % Normal 30.5-36.0 [facility] Comment on above: Performed By: #### L AB294 ####Framing Specialist: KIM GONZALES ([phone])[facility] ([facility])[address] [place] [address] MCV (RBC) [Entitic vol] 94.7 fL Normal 77.0-99.0 [facility] Comment on above: Performed By: #### L AB294 ####Framing Specialist: KIM GONZALES ([phone])[facility] ([facility])[address] [place] [address] Platelet mean volume (Bld) [Entitic vol] 10.9 fL Normal 9.0-12.7 [facility] Comment on above: Performed By: #### L AB294 ####Framing Specialist: KIM GONZALES ([phone])[facility])[address] [place] [address] Platelets (Bld) [#/Vol] 353 10*3/uL Normal 140-440 [facility] Comment on above: Performed By: #### L AB294 ####Framing Specialist: KIM GONZALES ([phone])[facility] [place] [address] RBC (Bld) [#/Vol] 3.21 10*6/uL Low 4.40-5.90 [facility] Comment on above: Performed By: #### L AB294 ####Framing Specialist: KIM GONZALES ([phone])[facility] ([facility])[address] [place] [address] WBC (Bld) [#/Vol] 13.9 10*3/uL High 3.6-10.7 [facility] Comment on above: Performed By: #### L AB294 ####Framing Specialist: KIM GONZALES ([phone])[facility] ([facility])[address] [place] [address] CBC panel Auto (Bld)on 09-24 Erythrocyte distribution width (RBC) [Ratio] 13.2 % 11.5 - 15.0 % [facility] Hematocrit (Bld) [Volume fraction] 30.4 % Low 40.0 - 52.0 % [facility] Hemoglobin (Bld) [Mass/Vol] 9.8 g/dL Low 13.0 - 18.0 g/dL [facility] Interpretation and review of laboratory results Abnormal [facility] MCH (RBC) [Entitic mass] 30.5 pg 26.0 - 34.0 pg [facility] MCHC (RBC) [Mass/Vol] 32.2 % 30.5 - 36.0 % [facility] MCV (RBC) [Entitic vol] 94.7 fL 77.0 - 99.0 fL [facility] Platelet mean volume (Bld) [Entitic vol] 10.9 fL 9.0 - 12.7 fL [facility] Platelets (Bld) [#/Vol] 353 10*3/uL 140 - 440 10*3/uL [facility] RBC (Bld) [#/Vol] 3.21 10*6/uL Low 4.40 - 5.90 10*6/uL [facility] WBC (Bld) [#/Vol] 13.9 10*3/uL High 3.6 - 10.7 10*3/uL [facility] Determination of erythrocyte mean corpuscular volume (MCV)Ordered By: Natalia Garcia on 09-25-2023 MCV (RBC) [Entitic vol] 97.5 fL 80-94 [facility] Erythrocyte distribution wid th ratioOrdered By: Natalia Garcia on 09-25-2023 Erythrocyte distribution width (RBC) [Ratio] 13.0 % 11.6-14.6 [facility] Erythrocyte distribution wid th standard deviationOrdered By: Natalia Garcia on 09-25-2023 Erythrocyte distribution width (RBC) [Entitic vol] 46.5 fL 35.1-43.9 [facility] Hematocrit Auto (Bld) [Volum e fraction]Ordered By: Natalia Garcia on 09-25-2023 Hematocrit (Bld) [Volume fraction] 31.8 % 40-54 [facility] IDNon 09-25-2023 IDN Problem: Knowledge D eficit Goal: Patient/family/caregiver demonstrates understanding of disease process, treatment plan, medications, and discharge instructions Outcome: Progressing Problem: Potential for Compromised Skin Integrity Goal: Skin Integrity is Maintained or Improved Outcome: Progressing Goal: Nutritional status is improving Outcome: Progressing Problem: Urinary Incontinence Goal: Perineal skin integrity is maintained or improved Outcome: Progressing Normal [facility] Immature granulocytes/100 WB C Auto (Bld)Ordered By: Natalia Garcia on 09-25-2023 Immature granulocytes/100 WBC (Bld) 0.800 % 0.0-0.9 [facility] Comment on above: IG% - Immature Granu locytes (promyelocytes, myelocytes and metamyelocytes) > 1% indicates that a LEFT SHIFT is Present. Laboratory - Chemistry and C hemistry - challengeOrdered By: Greta Villalba on 09-25-2023 Troponin I.cardiac [Mass/Vol] 25.400 ng/mL Critically high NINF - 0.034 ng/mL [facility] Laboratory - Chemistry and C hemistry - challengeOrdered By: Natalia Garcia on 09-25-2023 Albumin/Globulin [Mass ratio] 0.6 {ratio} 0.9-2.4 [facility] ALP [Catalytic activity/Vol] 74 U/L 45-117 [facility] ALT [Catalytic activity/Vol] 63 U/L 16-61 [facility] CO2 [Moles/Vol] 24.0 mmol/L 21.0-32.0 [facility] Globulin (S) [Mass/Vol] 4.3 g/dL 2.2-4.2 [facility] Magnesium [Mass/Vol] 2.5 mg/dL 1.6-2.6 [facility] Urea nitrogen/Creatinine [Mass ratio] 35.5 mg/mg 10-20 [facility] Laboratory - Hematology and Cell countsOrdered By: Natalia Garcia on 09-25-2023 MCH (RBC) [Entitic mass] 30.7 pg 27.0-32.0 [facility] MCHC (RBC) [Mass/Vol] 31.4 g/dL 32-36 [facility] Nucleated RBC/100 WBC (Bld) [Ratio] 0 % 0-5 [facility] Platelet mean volume (Bld) [Entitic vol] 10.9 fL 6.2-12.0 [facility] Platelets (Bld) [#/Vol] 330 10*3/uL 150-450 [facility] No Panel InformationOrdered By: Natalia Garcia on 09-25-2023 Estimated Creatinine Clearance Calc 61.86 ml/min [facility] Estimated GFR (MDRD) Amer 83 mL/min >60 [facility] Comment on above: GFR Calc Estimated GFR (MDRD) Non-Af Amer 68 mL/min >60 [facility] Comment on above: Non- GFR Calc RBC Auto (Bld) [#/Vol]Ordere d By: Natalia Garcia on 09-25-2023 RBC (Bld) [#/Vol] 3.26 10*6/uL 4.6-6.2 [facility] Serum or plasma calcium kian urement (mass/volume)Ordered By: Natalia Garcia on 09-25-2023 Calcium [Mass/Vol] 8.9 mg/dL 8.5-10.1 [facility] Serum or plasma creatinine m easurement (mass/volume)Ordered By: Natalai Garcia on 09-25-2023 Creatinine [Mass/Vol] 1.10 mg/dL 0.70-1.30 [facility] Comment on above: The validity of the calculated GFR & GFRAA in patients over 70 years has not been determined. Clinical correlation is essential. Serum or plasma urea nitroge n measurement (mass/volume)Ordered By: Natalia Garcia on 09-25-2023 Urea nitrogen [Mass/Vol] 39 mg/dL 7-18 [facility] TROPONIN Ion 09-25-2023 Troponin I.cardiac [Mass/Vol] 25.400 ng/mL Critically high <0.034 [facility] Comment on above: Result Comment: RINA Vogel COMMENTS: Patients with high levels of Biotin oral intake (ie >5 mg/day) may have falsely decreased Troponin levels. Performed By: #### L [id number] #### Framing Specialist: KIM GONZALES ([phone]) [facility] ([facility]) [address] [place] [address] Thin prep Papanicolaou smear with manual screeningOrdered By: Natalia Garcia on 09-25-2023 Thin prep Papanicolaou smear with manual screening 2.4 g/dL 3.2-5.0 [facility] Thin prep Papanicolaou smear with manual screening 260 U/L 15-37 [facility] Thin prep Papanicolaou smear with manual screening 7 5-15 [facility] Troponin I.cardiac [Mass/Vol ]Ordered By: Greta Villalba on 09-25-2023 Interpretation and review of laboratory results Abnormal [facility] aPTT Coag (Bld) [Time]on aPTT Coag (PPP) [Time] 36.2 s High 20.0 - 30.5 s [facility] Interpretation and review of laboratory results Abnormal [facility] aPTT Coag (PPP) [Time] 32.8 s High 20.0 - 30.5 s [facility] Interpretation and review of laboratory results Abnormal [facility] Activated partial thrombopla stin time (aPTT) in platelet poor plasma by coagulation aOrdered By: Bret Green on 09-24-2023 aPTT Coag (PPP) [Time] 53.6 s 24.1-36.2 [facility] Amorphous sediment detection in urine sediment by light microscopyOrdered By: Natalia Garcia on 09-24-2023 Amorphous sediment LM Ql (Urine sed) 1+ URATE [facility] Assessment of wrist artery p atency prior to arterial punctureOrdered By: Natalia Garcia on 09-24-2023 Arterial patency Wrist artery --pre arterial puncture Positive [facility] Base excessOrdered By: Aure Garcia on 09-24-2023 Base excess Calc (BldV) [Moles/Vol] -5 mmol/L -2-2 [facility] Basophil percentageOrdered B y: Natalia Garcia on 09-24-2023 Basophil percentage >100 SEEN /hpf 0-5 [facility] Basophil percentage 20 mmol/L [facility] Basophils/100 WBC (Bld) 98 % 95-99 [facility] Basophil percentageOrdered B y: Bret Green on 09-24-2023 Chloride [Moles/Vol] 110 mmol/L 98-107 [facility] Glucose [Mass/Vol] 133 mg/dL 74-106 [facility] Comment on above: Fasting Glucose resu lt greater than or equal to 126 mg/dL suggests DIABETES MELLITUS per A.D.A. criteria. Potassium [Moles/Vol] 4.1 mmol/L 3.5-5.1 [facility] Sodium [Moles/Vol] 140 mmol/L 136-145 [facility] Bilirubin Test strip Ql (U)O rdered By: Natalia Garcia on 09-24-2023 Bilirubin Ql (U) Negative Negative [facility] Culture, urineOrdered By: Ilir Garcia on 09-24-2023 Bacteria identified Cx Nom (U) Escherichia coli [facility] Ketones Test strip Ql (U)Ord ered By: Natalia Garcia on 09-24-2023 Ketones Ql (U) Negative Negative [facility] Laboratory - Chemistry and C hemistry - challengeOrdered By: Bret Green on 09-24-2023 CO2 [Moles/Vol] 26.0 mmol/L 21.0-32.0 [facility] Urea nitrogen/Creatinine [Mass ratio] 30.7 mg/mg 10-20 [facility] Laboratory - Chemistry and C hemistry - challengeOrdered By: Sarah Perrin on 09-24-2023 Magnesium [Mass/Vol] 2.1 mg/dL 1.6-2.6 [facility] Laboratory - Chemistry and C hemistry - challengeOrdered By: Natalia Garcia on 09-24-2023 Natriuretic peptide B (Bld) [Mass/Vol] 394.3 pg/mL 0-100 [facility] Measurement, pHOrdered By: Eva Garcia on 09-24-2023 pH (Unsp spec) 7.41 [pH] 7.35-7.45 [facility] Mucus LM Ql (Urine sed)Order ed By: Natalia Garcia on 09-24-2023 Mucus Ql (Urine sed) 0 SEEN /hpf [facility] Nitrite Test strip Ql (U)Ord ered By: Natalia Garcia on 09-24-2023 Nitrite Ql (U) Positive Negative [facility] No Panel InformationOrdered By: Natalia Garcia on 09-24-2023 Urine RBC 0-5 SEEN /hpf 0-5 [facility] Arterial Blood Partial Pressure CO2 30.5 mmHg 35-45 [facility] Arterial Blood Partial Pressure O2 105 mmHG 75-100 [facility] Blood Gas Bicarbonate Actual 19.4 mmol/L 22-26 [facility] Blood Gas Oxygen Percent 12.0 [facility] Blood Gas Sample Site L Radial [facility] Blood Gas Specimen Type ART [facility] Blood Gas Vent Mode Not entered [facility] Oxygen Delivery Device NRB [facility] Activated Clotting Time 217 sec 74-137 [facility] No Panel InformationOrdered By: Bret Green on 09-24-2023 Estimated Creatinine Clearance Calc 67.38 ml/min [facility] Estimated GFR (MDRD) Amer 91 mL/min >60 [facility] Comment on above: GFR Calc Estimated GFR (MDRD) Non-Af Amer 75 mL/min >60 [facility] Comment on above: Non- GFR Calc No Panel InformationOrdered By: Sarah Perrin on 09-24-2023 Troponin I High Sensitivity 6505 pg/mL 3.0-78.0 [facility] Comment on above: Critical Result(s) C alled at: 05:21:06 09/24/2023 by: Mateo Srinivasan. to John RN PCU. Results read back by same. Please Note: New Test Units and Gender Specific Reference Ranges. For more information see Policy Stat Procedure [place] High Sensitivity Troponin (TNIH) and attachments. Protein Test strip Ql (U)Ord ered By: Natalia Garcia on 09-24-2023 Protein Ql (U) 15 mg/dl Negative [facility] Serum or plasma calcium kian urement (mass/volume)Ordered By: Bret Green on 09-24-2023 Calcium [Mass/Vol] 8.5 mg/dL 8.5-10.1 [facility] Serum or plasma creatinine m easurement (mass/volume)Ordered By: Bret Green on 09-24-2023 Creatinine [Mass/Vol] 1.01 mg/dL 0.70-1.30 [facility] Comment on above: The validity of the calculated GFR & GFRAA in patients over 70 years has not been determined. Clinical correlation is essential. Serum or plasma urea nitroge n measurement (mass/volume)Ordered By: Bret Green on 09-24-2023 Urea nitrogen [Mass/Vol] 31 mg/dL 7-18 [facility] Squamous epithelial cells de tection in urine sediment by light microscopyOrdered By: Natalia Garcia on 09-24-2023 Epithelial cells.squamous LM Ql (Urine sed) 0-5 SEEN /hpf 0-5 [facility] Thin prep Papanicolaou smear with manual screeningOrdered By: Bret Green on 09-24-2023 Thin prep Papanicolaou smear with manual screening 4 5-15 [facility] Urine blood detectionOrdered By: Natalia Garcia on 09-24-2023 RBC Ql (U) 25 /ul Negative [facility] Urine clarityOrdered By: Anna Garcia on 09-24-2023 Clarity (U) Cloudy Clear [facility] Urine color determinationOrd ered By: Natalia Garcia on 09-24-2023 Color (U) YELLOW Yellow [facility] Urine glucose detectionOrder ed By: Natalia Garcia on 09-24-2023 Glucose Ql (U) Normal mg/dl Normal [facility] Urine leukocyte esterase det ection by dipstickOrdered By: Natalia Garcia on 09-24-2023 Leukocyte esterase Test strip Ql (U) 500 /ul Negative [facility] Urine pHOrdered By: Natalia Garcia on 09-24-2023 pH (U) 6.0 [pH] 5.0 - 8.0 [facility] Urine sediment bacteria coun t by microscopy (number/high power field)Ordered By: Natalia Garcia on 09-24-2023 Bacteria LM.HPF (Urine sed) [#/Area] 1 /[HPF] None Seen [facility] Urine specific gravity measu rementOrdered By: Natalia Garcia on 09-24-2023 Specific gravity (U) [Rel density] 1.010 1.002-1.03 0 [facility] Urine urobilinogen measureme ntOrdered By: Natalia Garcia on 09-24-2023 Urobilinogen Ql (U) Normal mg/dl Normal [facility] .Auto Diffon 09-23-2023 Basophil, Absolute 0.1 10 3/mcL Normal 0.0-0.2 [facility] ([place]) Comment on above: Performed By: #### A NSG, CBC, ADIFF, ANEU, BMP, ALB, GFR, ABOG #### [address] [address] Basophils/100 WBC (Bld) 0.7 % Normal 0.0-2.5 [facility] ([place]) Comment on above: Performed By: #### A NSG, CBC, ADIFF, ANEU, BMP, ALB, GFR, ABOG #### [address] [address] Eosinophil, Absolute 0.3 10 3/mcL Normal 0.0-0.4 [facility] ([place]) Comment on above: Performed By: #### A NSG, CBC, ADIFF, ANEU, BMP, ALB, GFR, ABOG #### [address] [address] Eosinophils/100 WBC (Bld) 3.6 % Normal 0.0-7.0 [facility] ([place]) Comment on above: Performed By: #### A NSG, CBC, ADIFF, ANEU, BMP, ALB, GFR, ABOG #### [address] [address] Lymphocyte, Absolute 1.5 10 3/mcL Normal 0.8-3.9 [facility] ([place]) Comment on above: Performed By: #### A NSG, CBC, ADIFF, ANEU, BMP, ALB, GFR, ABOG #### [address] [address] Lymphocytes/100 WBC (Bld) 17.1 % Normal 10.0-50.0 [facility] ([place] Comment on above: Performed By: #### A NSG, CBC, ADIFF, ANEU, BMP, ALB, GFR, ABOG #### [address] [address] Monocyte, Absolute 0.8 10 3/mcL Normal 0.2-1.0 [facility] ([place] Comment on above: Performed By: #### A NSG, CBC, ADIFF, ANEU, BMP, ALB, GFR, ABOG #### [address] [address] Monocytes/100 WBC (Bld) 9.6 % Normal 1.7-13.0 [facility] ([place] Comment on above: Performed By: #### A NSG, CBC, ADIFF, ANEU, BMP, ALB, GFR, ABOG #### [address] [address] Neutrophils/100 WBC (Bld) 69.0 % Normal 37.0-80.0 [facility] ([place] Comment on above: Performed By: #### A NSG, CBC, ADIFF, ANEU, BMP, ALB, GFR, ABOG #### [address] [address] .GFRon 09-23-2023 GFR 82 ml/min/1.73sqm Normal [facility] ([place]) Comment on above: Result Comment: GFR Population mean for , Non- Americans Ages 20-29 = 116 mL/min/1.73 sq.m. Ages 30-39 = 107 mL/min/1.73 sq.m. Ages 40-49 = 99 mL/min/1.73 sq.m. Ages 50-59 = 93 mL/min/1.73 sq.m. Ages 60-69 = 85 mL/min/1.73 sq.m. Ages 70+ = 75 mL/min/1.73 sq.m. Chronic Kidney Disease: Less than 60 mL/min/1.73 square meters End Stage Renal Disease: Less than 15 mL/min/1.73 square meters Performed By: #### G FR, BMP #### [address] [address] GFR Non- 68 ml/min/1.73sqm Normal [facility] ([place]) Comment on above: Result Comment: GFR Population mean for , Non- Americans Ages 20-29 = 116 mL/min/1.73 sq.m. Ages 30-39 = 107 mL/min/1.73 sq.m. Ages 40-49 = 99 mL/min/1.73 sq.m. Ages 50-59 = 93 mL/min/1.73 sq.m. Ages 60-69 = 85 mL/min/1.73 sq.m. Ages 70+ = 75 mL/min/1.73 sq.m. Chronic Kidney Disease: Less than 60 mL/min/1.73 square meters End Stage Renal Disease: Less than 15 mL/min/1.73 square meters Performed By: #### G FR, BMP #### [address] [address] .NEUABSon 09-23-2023 Neutrophil, Absolute 6.1 10 3/mcL Normal 2.9-6.2 [facility] ([place]) Comment on above: Performed By: #### A NSG, CBC, ADIFF, ANEU, BMP, ALB, GFR, ABOG #### [address] [address] APTTon 09-23-2023 aPTT Coag (Bld) [Time] 30.8 s Normal 25.0-35.0 [facility] ([place]) Comment on above: Result Comment: For Heparin anticoagulation therapy, the recommended therapeutic range is: 50.6-87.4 seconds. Patients on heparin therapy may have an extreme result. Performed By: #### A NSG, CBC, ADIFF, ANEU, BMP, ALB, GFR, ABOG #### [address] [address] Heparin dose (APTT) None Normal [facility] ([place]) Comment on above: Performed By: #### A NSG, CBC, ADIFF, ANEU, BMP, ALB, GFR, ABOG #### [address] [address] Basophil percentageOrdered B y: Bret Green on 09-23-2023 Bilirubin [Mass/Vol] 0.80 mg/dL 0.20-1.00 [facility] Comment on above: For patients on eltr ombopag therapy, use of Dimension [place] TBIL is not recommended. Cholesterol [Mass/Vol] 93 mg/dL <200 [facility] Comment on above: <200 mg/dL Desirable 200-240 mg/dL Borderline >240 mg/dL High Risk Protein [Mass/Vol] 6.1 g/dL 6.4-8.2 [facility] Triglyceride [Mass/Vol] 96 mg/dL <199 [facility] Comment on above: The drugs N-Acetylcy steine and Metamizole may falsely depress this assay.Serum Triglycerides Reference Interval Normal <150 mg/dL Borderline high 150 - 199 mg/dL High 200 - 499 mg/dL Very High > or = 500 mg/dL CBCon 09-23-2023 Erythrocyte distribution width (RBC) [Ratio] 13.4 % Normal 11.5-14.5 [facility] ([place]) Comment on above: Performed By: #### A NSG, CBC, ADIFF, ANEU, BMP, ALB, GFR, ABOG #### [address] [address] Hematocrit (Bld) [Volume fraction] 28.6 % Low 42.0-52.0 [facility] ([place]) Comment on above: Performed By: #### A NSG, CBC, ADIFF, ANEU, BMP, ALB, GFR, ABOG #### [address] [address] Hgb 9.7 G/dL Low 14.0-18.0 [facility] ([place] Comment on above: Performed By: #### A NSG, CBC, ADIFF, ANEU, BMP, ALB, GFR, ABOG #### [address] [address] MCH (RBC) [Entitic mass] 31.6 pg High 27.0-31.2 [facility] ([place] Comment on above: Performed By: #### A NSG, CBC, ADIFF, ANEU, BMP, ALB, GFR, ABOG #### [address] [address] MCHC 33.8 G/dL Normal 31.8-35.4 [facility] ([place] Comment on above: Performed By: #### A NSG, CBC, ADIFF, ANEU, BMP, ALB, GFR, ABOG #### [address] [address] MCV (RBC) [Entitic vol] 93.7 fL Normal 80.0-94.0 [facility] ([place] Comment on above: Performed By: #### A NSG, CBC, ADIFF, ANEU, BMP, ALB, GFR, ABOG #### [address] [address] Platelet 231 10 3/mcL Normal 130-400 [facility] ([place] Comment on above: Performed By: #### A NSG, CBC, ADIFF, ANEU, BMP, ALB, GFR, ABOG #### [address] [address] Platelet mean volume (Bld) [Entitic vol] 7.9 fL Normal 7.4-10.4 [facility] ([place] Comment on above: Performed By: #### A NSG, CBC, ADIFF, ANEU, BMP, ALB, GFR, ABOG #### [address] [address] RBC 3.05 10 6/mcL Low 4.04-6.13 [facility] ([place] Comment on above: Performed By: #### A NSG, CBC, ADIFF, ANEU, BMP, ALB, GFR, ABOG #### [address] [address] WBC 8.8 10 3/mcL Normal 4.6-10.8 [facility] ([place] Comment on above: Performed By: #### A NSG, CBC, ADIFF, ANEU, BMP, ALB, GFR, ABOG #### [address] [address] CMPon 09-23-2023 Albumin Level 2.1 G/dL Low 3.4-4.8 [facility] ([place] Comment on above: Performed By: #### Ruth COTTO, BMP #### [address] [address] Albumin/Globulin [Mass ratio] 0.7 {ratio} Low 1.1-2.5 [facility] ([place] Comment on above: Performed By: #### Ruth COTTO, BMP #### [address] [address] ALP [Catalytic activity/Vol] 81 U/L Normal 40-135 [facility] ([place] Comment on above: Performed By: #### Ruth COTTO, BMP #### [address] [address] ALT [Catalytic activity/Vol] 33 U/L Normal 16-63 [facility] ([place] Comment on above: Performed By: #### Ruth COTTO, BMP #### [address] [address] AST [Catalytic activity/Vol] 61 U/L High 10-40 [facility] ([place] Comment on above: Performed By: #### Ruth COTTO, BMP #### [address] [address] Bili Total 0.8 mg/dL Normal 0.2-1.0 [facility] ([place] Comment on above: Result Comment: Use of this assay is not recommended for patients undergoing treatment with eltrombopag due to the potential for falsely elevated results. Performed By: #### Ruth FR, BMP #### [address] [address] BUN/Creatinine Ratio 29 ratio High 7-27 [facility] ([place] Comment on above: Performed By: #### Ruth FR, BMP #### [address] [address] Calcium [Mass/Vol] 8.0 mg/dL Low 8.4-10.2 [facility] ([place] Comment on above: Performed By: #### G FR, BMP #### [address] [address] Chloride [Moles/Vol] 107 mmol/L Normal 98-107 [facility] ([place] Comment on above: Performed By: #### G FR, BMP #### [address] [address] CO2 [Moles/Vol] 29 mmol/L Normal 23-31 [facility] ([place] Comment on above: Performed By: #### G FR, BMP #### [address] [address] Creatinine [Mass/Vol] 1.05 mg/dL Normal 0.70-1.30 [facility] ([place] Comment on above: Performed By: #### G FR, BMP #### [address] [address] Electrolyte Balance 7.0 mEq/L Normal 4.0-15.0 [facility] ([place] Comment on above: Performed By: #### G FR, BMP #### [address] [address] Globulin 3.2 G/dL Normal [facility] ([place] Comment on above: Performed By: #### G FR, BMP #### [address] [address] Glucose [Mass/Vol] 117 mg/dL High 83-110 [facility] ([place] Comment on above: Performed By: #### G FR, BMP #### [address] [address] Potassium [Moles/Vol] 4.6 mmol/L Normal 3.5-5.1 [facility] ([place] Comment on above: Performed By: #### G FR, BMP #### [address] [address] Sodium [Moles/Vol] 143 mmol/L Normal 136-145 [facility] ([place] Comment on above: Performed By: #### G FR, BMP #### [address] [place], [place] [address] Total Protein 5.3 G/dL Low 6.4-8.2 [facility] ([place] Comment on above: Performed By: #### G FR, BMP #### [address] [place], [place] [address] Urea nitrogen [Mass/Vol] 30 mg/dL High 7-18 [facility] ([place] Comment on above: Performed By: #### G FR, BMP #### [address] [place], [place] [address] CT ANGIOGRAPHY CHEST W/CONTR Freya 09-23-2023 CT ANGIOGRAPHY CHEST W/CONTRAST ORIGINAL EXAMINATION: CTA OF THE CHEST 09/23/2023 7:21 am TECHNIQUE: CTA of the chest was performed after the administration of intravenous contrast. Multiplanar reformatted images are provided for review. MIP images are provided for review. Automated exposure control, iterative reconstruction, and/or weight based adjustment of the mA/kV was utilized to reduce the radiation dose to as low as reasonably achievable. COMPARISON: Chest x-ray on 05/09/2019. CT pulmonary angiogram on 09/12/2013 HISTORY: ORDERING SYSTEM PROVIDED HISTORY: Reason for Exam: Shortness of breath and elevated troponin. Recent surgery. Rule out pulmonary embolism. FINDINGS: Pulmonary Arteries: Pulmonary arteries are adequately opacified for evaluation. No evidence of intraluminal filling defect to suggest pulmonary embolism. Main pulmonary artery is normal in caliber. Mediastinum: There are scattered subcentimeter lymph nodes in the mediastinum but none that are pathologically enlarged. The heart size is normal. There is prominent atherosclerotic coronary artery calcification. No pericardial fluid is present. The thoracic aorta is nonaneurysmal and there is no aortic dissection. Lungs/pleura: Small bilateral pleural effusions calliope player dependently. There is mild adjacent atelectasis in both lower lobes. There is no pneumothorax. Upper Abdomen: No acute findings. Soft Tissues/Bones: Mild thoracic spondylosis without fracture subluxation. IMPRESSION: No evidence of pulmonary embolism. Small bilateral pleural effusions with adjacent atelectasis. Prominent atherosclerotic coronary artery calcification. Interpreted by: Wood Harrington MD Preliminary Report By: Wood Harrington MD Electronically signed By Wood Harrington MD Dictated Date: 09/23/2023 7:24:38 AM Prelim Date: 09/23/2023 7:29:21 AM Sign Date: 09/23/2023 7:29:21 AM Ordering Provider: MOODY Zapata [facility] ([place]) DIMERon 09-23-2023 D-Dimer 2557 ng/mL D-DU High 0-230 [facility]) Comment on above: Result Comment: Resu lts reported in D-DU ng/mL. Positive for D-dimer. A positive D-Dimer may occur in the following: DVT, PE, DIC, Trauma, Cancer, Sepsis, , Rheumatoid arthritis, Myocardial infarction and Cirrhosis. The presence of Rheumatoid Factor and HAMA (human mouse antibody) produces an overestimation of test results. The result of the D-Dimer test should be evaluated in the context of all the clinical and laboratory data available. In those instances where the laboratory result does not agree with the clinical evaluation, additional tests should be performed accordingly. If the D-Dimer result is used to exclude DVT or PE, the recommended cutoff value is less than 230 ng/mL. The D-Dimer result should not be used alone to rule in DVT/PE, but should be used in conjunction with a clinical pretest probability (PTP)assessment model to exclude venous thromboembolism (VTE) in outpatients suspected of deep venous thrombosis (DVT) and pulmonary embolism (PE). Performed By: #### A NSG, CBC, ADIFF, ANEU, BMP, ALB, GFR, ABOG #### [place] [address] LABORATORYOrdered By: SYSTEM SYSTEM on 09-23-2023 Troponin I.cardiac DL <= 0.01 ng/mL [Mass/Vol] 6891 ng/L High 0 - 76 ng/L AO ADM SS Comment on above: Interpretive Data: H igh Sensitive Troponin I Reference Ranges: Female: 0-51 ng/L Male: 0-76 ng/L Testing performed on [employer] using a homogeneous sandwich chemiluminescent immunoassay based on [employer] technology. Albumin BCP dye [Mass/Vol] 2.1 G/dL Low 3.4 - 4.8 G/dL AO ADM SS Albumin/Globulin [Mass ratio] 0.7 {ratio} Low 1.1 - 2.5 ratio AO ADM SS ALP [Catalytic activity/Vol] 81 U/L Normal 40 - 135 U/L AO ADM SS ALT With P-5'-P [Catalytic activity/Vol] 33 U/L Normal 16 - 63 U/L AO ADM SS AST With P-5'-P [Catalytic activity/Vol] 61 U/L High 10 - 40 U/L AO ADM SS Basophil, Absolute 0.1 103/mcL Normal 0.0 - 0.2 10^3/mcL AO Workflow SS Basophils/100 WBC (Bld) 0.7 % Normal 0.0 - 2.5 % AO Workflow SS Bilirubin [Mass/Vol] 0.8 mg/dL Normal 0.2 - 1 .0 mg/dL AO ADM SS Comment on above: Interpretive Data: U se of this assay is not recommended for patients undergoing treatment with eltrombopag due to the potential for falsely elevated results. Calcium [Mass/Vol] 8.0 mg/dL Low 8.4 - 10. 2 mg/dL AO ADM SS Chloride [Moles/Vol] 107 mmol/L Normal 98 - 10 7 mmol/L AO ADM SS CO2 [Moles/Vol] 29 mmol/L Normal 23 - 31 mmol/L AO ADM SS Creatinine [Mass/Vol] 1.05 mg/dL Normal 0.70 - 1.30 mg/dL AO ADM SS Electrolyte Balance 7.0 mEq/L Normal 4.0 - 15 .0 mEq/L AO ADM SS Eosinophil, Absolute 0.3 103/mcL Normal 0.0 - 0 .4 10^3/mcL AO Workflow SS Eosinophils/100 WBC (Bld) 3.6 % Normal 0.0 - 7.0 % AO Workflow SS Erythrocyte distribution width (RBC) [Ratio] 13.4 % Normal 11.5 - 14.5 % AO Workflow SS GFR/1.73 sq M.predicted among blacks MDRD (S/P/Bld) [Vol rate/Area] 82 ml/min/1.73sqm Invalid Interpretation Code AO Chemistry S Comment on above: Interpretive Data: GFR Population mean for , Non- Americans Ages 20-29 = 116 mL/min/1.73 sq.m. Ages 30-39 = 107 mL/min/1.73 sq.m. Ages 40-49 = 99 mL/min/1.73 sq.m. Ages 50-59 = 93 mL/min/1.73 sq.m. Ages 60-69 = 85 mL/min/1.73 sq.m. Ages 70+ = 75 mL/min/1.73 sq.m. Chronic Kidney Disease: Less than 60 mL/min/1.73 square meters End Stage Renal Disease: Less than 15 mL/min/1.73 square meters GFR/1.73 sq M.predicted among non-blacks MDRD (S/P/Bld) [Vol rate/Area] 68 ml/min/1.73sqm Invalid Interpretation Code AO Chemistry S Comment on above: Interpretive Data: GFR Population mean for , Non- Americans Ages 20-29 = 116 mL/min/1.73 sq.m. Ages 30-39 = 107 mL/min/1.73 sq.m. Ages 40-49 = 99 mL/min/1.73 sq.m. Ages 50-59 = 93 mL/min/1.73 sq.m. Ages 60-69 = 85 mL/min/1.73 sq.m. Ages 70+ = 75 mL/min/1.73 sq.m. Chronic Kidney Disease: Less than 60 mL/min/1.73 square meters End Stage Renal Disease: Less than 15 mL/min/1.73 square meters Globulin 3.2 G/dL Invalid Interpretation Code AO ADM SS Glucose [Mass/Vol] 117 mg/dL High 83 - 110 mg/dL AO ADM SS Hematocrit (Bld) [Volume fraction] 28.6 % Low 42.0 - 52.0 % AO Workflow SS Hemoglobin (Bld) [Mass/Vol] 9.7 G/dL Low 14.0 - 18.0 G/dL AO Workflow SS Lymphocyte, Absolute 1.5 103/mcL Normal 0.8 - 3 .9 10^3/mcL AO Workflow SS Lymphocytes/100 WBC (Bld) 17.1 % Normal 10.0 - 50.0 % AO Workflow SS MCH (RBC) [Entitic mass] 31.6 pg High 27.0 - 31.2 pg AO Workflow SS MCHC 33.8 G/dL Normal 31.8 - 35.4 G/dL AO Workflow SS MCV (RBC) [Entitic vol] 93.7 fL Normal 80.0 - 94.0 fL AO Workflow SS Monocyte, Absolute 0.8 103/mcL Normal 0.2 - 1.0 10^3/mcL AO Workflow SS Monocytes/100 WBC (Bld) 9.6 % Normal 1.7 - 13.0 % AO Workflow SS Natriuretic peptide.B prohormone N-Terminal [Mass/Vol] 3539 pg/mL High 0 - 450 pg/mL AO ADM SS Comment on above: Interpretive Data: N T-proBNP results of less than 300 pg/mL effectively rules out acute congestive heart failure with 99% negative predictive value. Neutrophil, Absolute 6.1 103/mcL Normal 2.9 - 6 .2 10^3/mcL AO Workflow SS Neutrophils/100 WBC (Bld) 69.0 % Normal 37.0 - 80.0 % AO Workflow SS Platelet mean volume (Bld) [Entitic vol] 7.9 fL Normal 7.4 - 10.4 fL AO Workflow SS Platelets (Bld) [#/Vol] 231 103/mcL Normal 130 - 400 10^3/mcL AO Workflow SS Potassium [Moles/Vol] 4.6 mmol/L Normal 3.5 - 5.1 mmol/L AO ADM SS Protein [Mass/Vol] 5.3 G/dL Low 6.4 - 8.2 G/dL AO ADM SS RBC (Bld) [#/Vol] 3.05 106/mcL Low 4.04 - 6.13 10^6/mcL AO Workflow SS Sodium [Moles/Vol] 143 mmol/L Normal 136 - 145 mmol/L AO ADM SS Troponin I.cardiac DL <= 0.01 ng/mL [Mass/Vol] 6365 ng/L High 0 - 76 ng/L AO ADM SS Comment on above: Interpretive Data: H igh Sensitive Troponin I Reference Ranges: Female: 0-51 ng/L Male: 0-76 ng/L Testing performed on [employer] using a homogeneous sandwich chemiluminescent immunoassay based on [employer] technology. Urea nitrogen [Mass/Vol] 30 mg/dL High 7 - 18 mg/dL AO ADM SS Urea nitrogen/Creatinine [Mass ratio] 29 ratio High 7 - 27 ratio AO ADM SS WBC (Bld) [#/Vol] 8.8 103/mcL Normal 4.6 - 10.8 10^3/mcL AO Workflow SS LABORATORYOrdered By: Catarina Hernández on 09-23-2023 Fibrin D-dimer DDU (PPP) [Mass/Vol] 2557 ng/mL D-DU High 0 - 230 ng/mL D-DU AO [facility] SS Comment on above: Result Comment: Resu lts reported in D-DU ng/mL. Positive for D-dimer. A positive D-Dimer may occur in the following: DVT, PE, DIC, Trauma, Cancer, Sepsis, , Rheumatoid arthritis, Myocardial infarction and Cirrhosis. The presence of Rheumatoid Factor and HAMA (human mouse antibody) produces an overestimation of test results. Interpretive Data: [place] result of the D-Dimer test should be evaluated in the context of all the clinical and laboratory data available. In those instances where the laboratory result does not agree with the clinical evaluation, additional tests should be performed accordingly. If the D-Dimer result is used to exclude DVT or PE, the recommended cutoff value is less than 230 ng/mL. The D-Dimer result should not be used alone to rule in DVT/PE, but should be used in conjunction with a clinical pretest probability (PTP)assessment model to exclude venous thromboembolism (VTE) in outpatients suspected of deep venous thrombosis (DVT) and pulmonary embolism (PE). LABORATORYOrdered By: Gina Rojas on 09-23-2023 aPTT Coag (PPP) [Time] 30.8 s Normal 25.0 - 35.0 seconds AO [facility] SS Comment on above: Interpretive Data: F or Heparin anticoagulation therapy, the recommended therapeutic range is: 50.6-87.4 seconds. Patients on heparin therapy may have an extreme result. Heparin dose (APTT) None Normal AO Coagulation S INR Coag (PPP) [Relative time] 1.1 {INR} Invalid Interpretation Code AO [facility] Comment on above: Interpretive Data: [place] [employer] (CHEST, 1992, [id number]) recommended therapeutic range for oral anticoagulant therapy is: LOW RISK: Prophylaxis of venous thrombosis INR: 2.0-3.0 Treatment of pulmonary embolism 2.0-3.0 Prevention of systemic embolism 2.0-3.0 HIGH RISK: Mechanical prosthetic valves 2.5-3.5 Laboratory - Chemistry and C hemistry - challengeOrdered By: Bret Green on 09-23-2023 Albumin/Globulin [Mass ratio] 0.6 {ratio} 0.9-2.4 [facility] ALP [Catalytic activity/Vol] 71 U/L 45-117 [facility] ALT [Catalytic activity/Vol] 31 U/L 16-61 [facility] Cholesterol in HDL [Mass/Vol] 35 mg/dL >40 [facility] Comment on above: The drugs N-Acetylcy steine and Metamizole may falsely depress this assay. Reference Range HDL <40 mg/dL Low HDL Cholesterol HDL >or= 60 mg/dL High HDL Cholesterol Cholesterol in LDL [Mass/Vol] 39 mg/dL 0-130 [facility] Globulin (S) [Mass/Vol] 3.9 g/dL 2.2-4.2 [facility] No Panel InformationOrdered By: Bret Green on 09-23-2023 VLDL Cholesterol 19 mg/dL 5-40 [facility] PBNPon 09-23-2023 Natriuretic peptide B (Bld) [Mass/Vol] 3539 pg/mL High 0-450 [facility] ([place]) Comment on above: Result Comment: NT-p roBNP results of less than 300 pg/mL effectively rules out acute congestive heart failure with 99% negative predictive value. Performed By: #### A NSG, CBC, ADIFF, ANEU, BMP, ALB, GFR, ABOG #### [address] [id number] PROOrdered By: Ora medel on 09-23-2023 PT Coag (PPP) [Time] 12.9 s Normal 9.0-14.2 [facility] Comment on above: Performed By: #### A NSG, CBC, ADIFF, ANEU, BMP, ALB, GFR, ABOG #### [place] [address] PROon 09-23-2023 PT International Ratio 1.1 Normal [facility] ([place]) Comment on above: Result Comment: [employer] (CHEST, 1992, [id number]) recommended therapeutic range for oral anticoagulant therapy is: LOW RISK: Prophylaxis of venous thrombosis INR: 2.0-3.0 Treatment of pulmonary embolism 2.0-3.0 Prevention of systemic embolism 2.0-3.0 HIGH RISK: Mechanical prosthetic valves 2.5-3.5 Performed By: #### A NSG, CBC, ADIFF, ANEU, BMP, ALB, GFR, ABOG #### [address] [address] Serum or plasma thyroid stim ulating hormone (TSH) measurement (units/volume)Ordered By: Bret Green on 09-23-2023 TSH Qn 2.56 uIU/mL 0.358-3.74 [facility] TROPHSon 09-23-2023 High Sensitivity Troponin I 6891 ng/L High 0-76 [facility] ([place]) Comment on above: Result Comment: High Sensitive Troponin I Reference Ranges: Female: 0-51 ng/L Male: 0-76 ng/L Testing performed on [employer] using a homogeneous sandwich chemiluminescent immunoassay based on [employer] technology. Performed By: #### A NSG, CBC, ADIFF, ANEU, BMP, ALB, GFR, ABOG #### [address] [address] High Sensitivity Troponin I 6365 ng/L High 0-76 [facility] ([place]) Comment on above: Result Comment: High Sensitive Troponin I Reference Ranges: Female: 0-51 ng/L Male: 0-76 ng/L Testing performed on [employer] using a homogeneous sandwich chemiluminescent immunoassay based on [employer] technology. Performed By: #### A NSG, CBC, ADIFF, ANEU, BMP, ALB, GFR, ABOG #### [address] [address] Thin prep Papanicolaou smear with manual screeningOrdered By: Bret Green on 09-23-2023 Thin prep Papanicolaou smear with manual screening 2.2 g/dL 3.2-5.0 [facility] Thin prep Papanicolaou smear with manual screening 58 U/L 15-37 [facility] Whole blood hemoglobin A1c/t otal hemoglobin ratio (mass fraction)Ordered By: Bret Green on 09-23-2023 HbA1c (Bld) [Mass fraction] 5.4 % 3.8-5.6 [facility] Comment on above: Normal < 5.7 % Predi abetic 5.7 - 6.4 % Diabetic >or= 6.5 % Please note range changes. .Auto Diffon 09-20-2023 Basophil, Absolute 0.0 10 3/mcL Normal 0.0-0.2 [facility] ([place] Comment on above: Performed By: #### G FR, BMP #### [address] [address] Basophils/100 WBC (Bld) 0.4 % Normal 0.0-2.5 [facility] ([place]) Comment on above: Performed By: #### G FR, BMP #### [address] [address] Eosinophil, Absolute 0.2 10 3/mcL Normal 0.0-0.4 [facility] ([place]) Comment on above: Performed By: #### G FR, BMP #### [address] [address] Eosinophils/100 WBC (Bld) 2.1 % Normal 0.0-7.0 [facility] ([place] Comment on above: Performed By: #### G FR, BMP #### [address] [address] Lymphocyte, Absolute 1.6 10 3/mcL Normal 0.8-3.9 [facility] ([place]) Comment on above: Performed By: #### G FR, BMP #### [address] [address] Lymphocytes/100 WBC (Bld) 14.2 % Normal 10.0-50.0 [facility] ([place] Comment on above: Performed By: #### G FR, BMP #### [address] [address] Monocyte, Absolute 1.3 10 3/mcL High 0.2-1.0 [facility] ([place] Comment on above: Performed By: #### G FR, BMP #### [address] [address] Monocytes/100 WBC (Bld) 10.9 % Normal 1.7-13.0 [facility] ([place] Comment on above: Performed By: #### G FR, BMP #### [address] [address] Neutrophils/100 WBC (Bld) 72.4 % Normal 37.0-80.0 [facility] ([place] Comment on above: Performed By: #### G FR, BMP #### [address] [address] .GFRon 09-20-2023 GFR 71 ml/min/1.73sqm Normal [facility] ([place] Comment on above: Result Comment: GFR Population mean for , Non- Americans Ages 20-29 = 116 mL/min/1.73 sq.m. Ages 30-39 = 107 mL/min/1.73 sq.m. Ages 40-49 = 99 mL/min/1.73 sq.m. Ages 50-59 = 93 mL/min/1.73 sq.m. Ages 60-69 = 85 mL/min/1.73 sq.m. Ages 70+ = 75 mL/min/1.73 sq.m. Chronic Kidney Disease: Less than 60 mL/min/1.73 square meters End Stage Renal Disease: Less than 15 mL/min/1.73 square meters Performed By: #### G FR, BMP #### [address] [address] GFR Non- 59 ml/min/1.73sqm Normal [facility] ([place] Comment on above: Result Comment: GFR Population mean for , Non- Americans Ages 20-29 = 116 mL/min/1.73 sq.m. Ages 30-39 = 107 mL/min/1.73 sq.m. Ages 40-49 = 99 mL/min/1.73 sq.m. Ages 50-59 = 93 mL/min/1.73 sq.m. Ages 60-69 = 85 mL/min/1.73 sq.m. Ages 70+ = 75 mL/min/1.73 sq.m. Chronic Kidney Disease: Less than 60 mL/min/1.73 square meters End Stage Renal Disease: Less than 15 mL/min/1.73 square meters Performed By: #### G FR, BMP #### [address] [address] .NEUABSon 09-20-2023 Neutrophil, Absolute 8.3 10 3/mcL High 2.9-6.2 [facility] ([place] Comment on above: Performed By: #### G FR, BMP #### [address] [address] BMPon 09-20-2023 BUN/Creatinine Ratio 27 ratio Normal 7-27 [facility] ([place] Comment on above: Performed By: #### G FR, BMP #### [address] [address] Calcium [Mass/Vol] 7.8 mg/dL Low 8.4-10.2 [facility] ([place] Comment on above: Performed By: #### G FR, BMP #### [address] [address] Chloride [Moles/Vol] 107 mmol/L Normal 98-107 [facility] ([place] Comment on above: Performed By: #### G FR, BMP #### [address] [address] CO2 [Moles/Vol] 28 mmol/L Normal 23-31 [facility] ([place] Comment on above: Performed By: #### G FR, BMP #### [address] [address] Creatinine [Mass/Vol] 1.19 mg/dL Normal 0.70-1.30 [facility] ([place] Comment on above: Performed By: #### G FR, BMP #### [address] [address] Electrolyte Balance 5.0 mEq/L Normal 4.0-15.0 [facility] ([place] Comment on above: Performed By: #### G FR, BMP #### [address] [address] Glucose [Mass/Vol] 121 mg/dL High 83-110 [facility] ([place] Comment on above: Performed By: #### G FR, BMP #### [address] [address] Potassium [Moles/Vol] 4.9 mmol/L Normal 3.5-5.1 [facility] ([place] Comment on above: Performed By: #### G FR, BMP #### [address] [address] Sodium [Moles/Vol] 140 mmol/L Normal 136-145 [facility] ([place] Comment on above: Performed By: #### G FR, BMP #### [address] [address] Urea nitrogen [Mass/Vol] 32 mg/dL High 7-18 [facility] ([place] Comment on above: Performed By: #### G , BMP #### [address] [address] CBCon 09-20-2023 Erythrocyte distribution width (RBC) [Ratio] 13.2 % Normal 11.5-14.5 [facility] ([place] Comment on above: Performed By: #### G , BMP #### [address] [address] Hematocrit (Bld) [Volume fraction] 29.0 % Low 42.0-52.0 [facility] ([place] Comment on above: Performed By: #### G , BMP #### [address] [address] Hgb 9.9 G/dL Low 14.0-18.0 [facility] ([place] Comment on above: Performed By: #### G FR, BMP #### [address] [address] MCH (RBC) [Entitic mass] 31.9 pg High 27.0-31.2 [facility] ([place] Comment on above: Performed By: #### G FR, BMP #### [address] [address] MCHC 34.0 G/dL Normal 31.8-35.4 [facility] ([place] Comment on above: Performed By: #### G FR, BMP #### [address] [address] MCV (RBC) [Entitic vol] 93.7 fL Normal 80.0-94.0 [facility] ([place] Comment on above: Performed By: #### G FR, BMP #### [address] [address] Platelet 168 10 3/mcL Normal 130-400 [facility] ([place] Comment on above: Performed By: #### G FR, BMP #### [place] [address] [place], [place] [address] Platelet mean volume (Bld) [Entitic vol] 8.8 fL Normal 7.4-10.4 [facility] ([place] Comment on above: Performed By: #### G FR, BMP #### [address] [address] RBC 3.09 10 6/mcL Low 4.04-6.13 [facility] ([place] Comment on above: Performed By: #### G FR, BMP #### [address] [address] WBC 11.5 10 3/mcL High 4.6-10.8 [facility] ([place] Comment on above: Performed By: #### G , BMP #### [address] [address] LABORATORYOrdered By: SYSTEM SYSTEM on 09-20-2023 Basophil, Absolute 0.0 103/mcL Normal 0.0 - 0.2 10^3/mcL AO Workflow SS Basophils/100 WBC (Bld) 0.4 % Normal 0.0 - 2.5 % AO Workflow SS Calcium [Mass/Vol] 7.8 mg/dL Low 8.4 - 10. 2 mg/dL AO ADM SS Chloride [Moles/Vol] 107 mmol/L Normal 98 - 10 7 mmol/L AO ADM SS CO2 [Moles/Vol] 28 mmol/L Normal 23 - 31 mmol/L AO ADM SS Creatinine [Mass/Vol] 1.19 mg/dL Normal 0.70 - 1.30 mg/dL AO ADM SS Electrolyte Balance 5.0 mEq/L Normal 4.0 - 15 .0 mEq/L AO ADM SS Eosinophil, Absolute 0.2 103/mcL Normal 0.0 - 0 .4 10^3/mcL AO Workflow SS Eosinophils/100 WBC (Bld) 2.1 % Normal 0.0 - 7.0 % AO Workflow SS Erythrocyte distribution width (RBC) [Ratio] 13.2 % Normal 11.5 - 14.5 % AO Workflow SS GFR/1.73 sq M.predicted among blacks MDRD (S/P/Bld) [Vol rate/Area] 71 ml/min/1.73sqm Invalid Interpretation Code AO Chemistry S Comment on above: Interpretive Data: GFR Population mean for , Non- Americans Ages 20-29 = 116 mL/min/1.73 sq.m. Ages 30-39 = 107 mL/min/1.73 sq.m. Ages 40-49 = 99 mL/min/1.73 sq.m. Ages 50-59 = 93 mL/min/1.73 sq.m. Ages 60-69 = 85 mL/min/1.73 sq.m. Ages 70+ = 75 mL/min/1.73 sq.m. Chronic Kidney Disease: Less than 60 mL/min/1.73 square meters End Stage Renal Disease: Less than 15 mL/min/1.73 square meters GFR/1.73 sq M.predicted among non-blacks MDRD (S/P/Bld) [Vol rate/Area] 59 ml/min/1.73sqm Invalid Interpretation Code AO Chemistry S Comment on above: Interpretive Data: GFR Population mean for , Non- Americans Ages 20-29 = 116 mL/min/1.73 sq.m. Ages 30-39 = 107 mL/min/1.73 sq.m. Ages 40-49 = 99 mL/min/1.73 sq.m. Ages 50-59 = 93 mL/min/1.73 sq.m. Ages 60-69 = 85 mL/min/1.73 sq.m. Ages 70+ = 75 mL/min/1.73 sq.m. Chronic Kidney Disease: Less than 60 mL/min/1.73 square meters End Stage Renal Disease: Less than 15 mL/min/1.73 square meters Glucose [Mass/Vol] 121 mg/dL High 83 - 110 mg/dL AO ADM SS Hematocrit (Bld) [Volume fraction] 29.0 % Low 42.0 - 52.0 % AO Workflow SS Hemoglobin (Bld) [Mass/Vol] 9.9 G/dL Low 14.0 - 18.0 G/dL AO Workflow SS Lymphocyte, Absolute 1.6 103/mcL Normal 0.8 - 3 .9 10^3/mcL AO Workflow SS Lymphocytes/100 WBC (Bld) 14.2 % Normal 10.0 - 50.0 % AO Workflow SS Magnesium [Mass/Vol] 2.2 mg/dL Normal 1.8 - 2 .4 mg/dL AO ADM SS MCH (RBC) [Entitic mass] 31.9 pg High 27.0 - 31.2 pg AO Workflow SS MCHC 34.0 G/dL Normal 31.8 - 35.4 G/dL AO Workflow SS MCV (RBC) [Entitic vol] 93.7 fL Normal 80.0 - 94.0 fL AO Workflow SS Monocyte, Absolute 1.3 103/mcL High 0.2 - 1.0 10^3/mcL AO Workflow SS Monocytes/100 WBC (Bld) 10.9 % Normal 1.7 - 13.0 % AO Workflow SS Neutrophil, Absolute 8.3 103/mcL High 2.9 - 6 .2 10^3/mcL AO Workflow SS Neutrophils/100 WBC (Bld) 72.4 % Normal 37.0 - 80.0 % AO Workflow SS Platelet mean volume (Bld) [Entitic vol] 8.8 fL Normal 7.4 - 10.4 fL AO Workflow SS Platelets (Bld) [#/Vol] 168 103/mcL Normal 130 - 400 10^3/mcL AO Workflow SS Potassium [Moles/Vol] 4.9 mmol/L Normal 3.5 - 5.1 mmol/L AO ADM SS RBC (Bld) [#/Vol] 3.09 106/mcL Low 4.04 - 6.13 10^6/mcL AO Workflow SS Sodium [Moles/Vol] 140 mmol/L Normal 136 - 145 mmol/L AO ADM SS Urea nitrogen [Mass/Vol] 32 mg/dL High 7 - 18 mg/dL AO ADM SS Urea nitrogen/Creatinine [Mass ratio] 27 ratio Normal 7 - 27 ratio AO ADM SS WBC (Bld) [#/Vol] 11.5 103/mcL High 4.6 - 10.8 10^3/mcL AO Workflow SS MGon 09-20-2023 Magnesium [Mass/Vol] 2.2 mg/dL Normal 1.8-2.4 [facility] ([place] Comment on above: Performed By: #### G FR, BMP #### [address] [address] .Auto Diffon 09-19-2023 Basophil, Absolute 0.0 10 3/mcL Normal 0.0-0.2 [facility] ([place] Comment on above: Performed By: #### A NSG, CBC, ADIFF, ANEU, BMP, ALB, GFR, ABOG #### [address] [address] Basophils/100 WBC (Bld) 0.3 % Normal 0.0-2.5 [facility] ([place] Comment on above: Performed By: #### A NSG, CBC, ADIFF, ANEU, BMP, ALB, GFR, ABOG #### [address] [address] Eosinophil, Absolute 0.0 10 3/mcL Normal 0.0-0.4 [facility] ([place] Comment on above: Performed By: #### A NSG, CBC, ADIFF, ANEU, BMP, ALB, GFR, ABOG #### [address] [address] Eosinophils/100 WBC (Bld) 0.2 % Normal 0.0-7.0 [facility] ([place] Comment on above: Performed By: #### A NSG, CBC, ADIFF, ANEU, BMP, ALB, GFR, ABOG #### [address] [address] Lymphocyte, Absolute 1.3 10 3/mcL Normal 0.8-3.9 [facility] ([place] Comment on above: Performed By: #### A NSG, CBC, ADIFF, ANEU, BMP, ALB, GFR, ABOG #### [address] [address] Lymphocytes/100 WBC (Bld) 13.9 % Normal 10.0-50.0 [facility] ([place] Comment on above: Performed By: #### A NSG, CBC, ADIFF, ANEU, BMP, ALB, GFR, ABOG #### [address] [address] Monocyte, Absolute 1.3 10 3/mcL High 0.2-1.0 [facility] ([place] Comment on above: Performed By: #### A NSG, CBC, ADIFF, ANEU, BMP, ALB, GFR, ABOG #### [address] [address] Monocytes/100 WBC (Bld) 13.6 % High 1.7-13.0 [facility] ([place] Comment on above: Performed By: #### A NSG, CBC, ADIFF, ANEU, BMP, ALB, GFR, ABOG #### [address] [address] Neutrophils/100 WBC (Bld) 72.0 % Normal 37.0-80.0 [facility] ([place] Comment on above: Performed By: #### A NSG, CBC, ADIFF, ANEU, BMP, ALB, GFR, ABOG #### [address] [address] .GFRon 09-19-2023 GFR 64 ml/min/1.73sqm Normal [facility] ([place] Comment on above: Result Comment: GFR Population mean for , Non- Americans Ages 20-29 = 116 mL/min/1.73 sq.m. Ages 30-39 = 107 mL/min/1.73 sq.m. Ages 40-49 = 99 mL/min/1.73 sq.m. Ages 50-59 = 93 mL/min/1.73 sq.m. Ages 60-69 = 85 mL/min/1.73 sq.m. Ages 70+ = 75 mL/min/1.73 sq.m. Chronic Kidney Disease: Less than 60 mL/min/1.73 square meters End Stage Renal Disease: Less than 15 mL/min/1.73 square meters Performed By: #### G FR, BMP #### [address] [address] GFR Non- 53 ml/min/1.73sqm Normal [facility] ([place] Comment on above: Result Comment: GFR Population mean for , Non- Americans Ages 20-29 = 116 mL/min/1.73 sq.m. Ages 30-39 = 107 mL/min/1.73 sq.m. Ages 40-49 = 99 mL/min/1.73 sq.m. Ages 50-59 = 93 mL/min/1.73 sq.m. Ages 60-69 = 85 mL/min/1.73 sq.m. Ages 70+ = 75 mL/min/1.73 sq.m. Chronic Kidney Disease: Less than 60 mL/min/1.73 square meters End Stage Renal Disease: Less than 15 mL/min/1.73 square meters Performed By: #### G FR, BMP #### [address] [address] GFR Non- 53 ml/min/1.73sqm Normal [facility] ([place] Comment on above: Result Comment: GFR Population mean for , Non- Americans Ages 20-29 = 116 mL/min/1.73 sq.m. Ages 30-39 = 107 mL/min/1.73 sq.m. Ages 40-49 = 99 mL/min/1.73 sq.m. Ages 50-59 = 93 mL/min/1.73 sq.m. Ages 60-69 = 85 mL/min/1.73 sq.m. Ages 70+ = 75 mL/min/1.73 sq.m. Chronic Kidney Disease: Less than 60 mL/min/1.73 square meters End Stage Renal Disease: Less than 15 mL/min/1.73 square meters Performed By: #### A NSG, CBC, ADIFF, ANEU, BMP, ALB, GFR, ABOG #### [address] [address] GFR 64 ml/min/1.73sqm Normal [facility] ([place] Comment on above: Result Comment: GFR Population mean for , Non- Americans Ages 20-29 = 116 mL/min/1.73 sq.m. Ages 30-39 = 107 mL/min/1.73 sq.m. Ages 40-49 = 99 mL/min/1.73 sq.m. Ages 50-59 = 93 mL/min/1.73 sq.m. Ages 60-69 = 85 mL/min/1.73 sq.m. Ages 70+ = 75 mL/min/1.73 sq.m. Chronic Kidney Disease: Less than 60 mL/min/1.73 square meters End Stage Renal Disease: Less than 15 mL/min/1.73 square meters Performed By: #### A NSG, CBC, ADIFF, ANEU, BMP, ALB, GFR, ABOG #### [address] [address] .NEUABSon 09-19-2023 Neutrophil, Absolute 6.7 10 3/mcL High 2.9-6.2 [facility] ([place] Comment on above: Performed By: #### A NSG, CBC, ADIFF, ANEU, BMP, ALB, GFR, ABOG #### [address] [address] BMPon 09-19-2023 BUN/Creatinine Ratio 24 ratio Normal 7-27 [facility] ([place] Comment on above: Performed By: #### G FR, BMP #### [address] [address] Calcium [Mass/Vol] 7.6 mg/dL Low 8.4-10.2 [facility] ([place] Comment on above: Performed By: #### Ruth FR, BMP #### [address] [address] Chloride [Moles/Vol] 105 mmol/L Normal 98-107 [facility] ([place] Comment on above: Performed By: #### G FR, BMP #### [address] [address] CO2 [Moles/Vol] 25 mmol/L Normal 23-31 [facility] ([place] Comment on above: Performed By: #### G FR, BMP #### [address] [address] Creatinine [Mass/Vol] 1.31 mg/dL High 0.70-1.30 [facility] ([place] Comment on above: Performed By: #### G FR, BMP #### [address] [address] Electrolyte Balance 8.0 mEq/L Normal 4.0-15.0 [facility] ([place] Comment on above: Performed By: #### G FR, BMP #### [address] [address] Glucose [Mass/Vol] 119 mg/dL High 83-110 [facility] ([place] Comment on above: Performed By: #### G FR, BMP #### [address] [address] Potassium [Moles/Vol] 4.3 mmol/L Normal 3.5-5.1 [facility] ([place] Comment on above: Performed By: #### G FR, BMP #### [address] [address] Sodium [Moles/Vol] 138 mmol/L Normal 136-145 [facility] ([place] Comment on above: Performed By: #### G FR, BMP #### [address] [address] Urea nitrogen [Mass/Vol] 31 mg/dL High 7-18 [facility] ([place] Comment on above: Performed By: #### G FR, BMP #### [address] [address] BUN/Creatinine Ratio 21 ratio Normal 7-27 [facility] ([place] Comment on above: Performed By: #### A NSG, CBC, ADIFF, ANEU, BMP, ALB, GFR, ABOG #### [address] [address] Calcium [Mass/Vol] 8.1 mg/dL Low 8.4-10.2 [facility] ([place] Comment on above: Performed By: #### A NSG, CBC, ADIFF, ANEU, BMP, ALB, GFR, ABOG #### [address] [address] Chloride [Moles/Vol] 106 mmol/L Normal 98-107 [facility] ([place] Comment on above: Performed By: #### A NSG, CBC, ADIFF, ANEU, BMP, ALB, GFR, ABOG #### [address] [address] CO2 [Moles/Vol] 26 mmol/L Normal 23-31 [facility] ([place] Comment on above: Performed By: #### A NSG, CBC, ADIFF, ANEU, BMP, ALB, GFR, ABOG #### [place] [id number] Creatinine [Mass/Vol] 1.31 mg/dL High 0.70-1.30 [facility] ([place] Comment on above: Performed By: #### A NSG, CBC, ADIFF, ANEU, BMP, ALB, GFR, ABOG #### [place] [address] Electrolyte Balance 4.0 mEq/L Normal 4.0-15.0 [facility] ([place] Comment on above: Performed By: #### A NSG, CBC, ADIFF, ANEU, BMP, ALB, GFR, ABOG #### [place] [address] Glucose [Mass/Vol] 129 mg/dL High 83-110 [facility] ([place] Comment on above: Performed By: #### A NSG, CBC, ADIFF, ANEU, BMP, ALB, GFR, ABOG #### [place] [address] Potassium [Moles/Vol] 4.9 mmol/L Normal 3.5-5.1 [facility] ([place] Comment on above: Performed By: #### A NSG, CBC, ADIFF, ANEU, BMP, ALB, GFR, ABOG #### [place] [address] Sodium [Moles/Vol] 136 mmol/L Normal 136-145 [facility] ([place] Comment on above: Performed By: #### A NSG, CBC, ADIFF, ANEU, BMP, ALB, GFR, ABOG #### [place] [id number] Urea nitrogen [Mass/Vol] 28 mg/dL High 7-18 [facility] ([place] Comment on above: Performed By: #### A NSG, CBC, ADIFF, ANEU, BMP, ALB, GFR, ABOG #### [address] [address] CBCon 09-19-2023 Erythrocyte distribution width (RBC) [Ratio] 12.9 % Normal 11.5-14.5 [facility] ([place] Comment on above: Performed By: #### A NSG, CBC, ADIFF, ANEU, BMP, ALB, GFR, ABOG #### [address] [address] Hematocrit (Bld) [Volume fraction] 32.2 % Low 42.0-52.0 [facility] ([place] Comment on above: Performed By: #### A NSG, CBC, ADIFF, ANEU, BMP, ALB, GFR, ABOG #### [place] [id number] Hgb 11.0 G/dL Low 14.0-18.0 [facility] ([place] Comment on above: Performed By: #### A NSG, CBC, ADIFF, ANEU, BMP, ALB, GFR, ABOG #### [address] [address] MCH (RBC) [Entitic mass] 31.9 pg High 27.0-31.2 [facility] ([place] Comment on above: Performed By: #### A NSG, CBC, ADIFF, ANEU, BMP, ALB, GFR, ABOG #### [place] [id number] MCHC 34.2 G/dL Normal 31.8-35.4 [facility] ([place] Comment on above: Performed By: #### A NSG, CBC, ADIFF, ANEU, BMP, ALB, GFR, ABOG #### [address] [address] MCV (RBC) [Entitic vol] 93.4 fL Normal 80.0-94.0 [facility] ([place] Comment on above: Performed By: #### A NSG, CBC, ADIFF, ANEU, BMP, ALB, GFR, ABOG #### [address] [address] Platelet 192 10 3/mcL Normal 130-400 [facility] ([place] Comment on above: Performed By: #### A NSG, CBC, ADIFF, ANEU, BMP, ALB, GFR, ABOG #### [address] [address] Platelet mean volume (Bld) [Entitic vol] 8.4 fL Normal 7.4-10.4 [facility] ([place] Comment on above: Performed By: #### A NSG, CBC, ADIFF, ANEU, BMP, ALB, GFR, ABOG #### [address] [address] RBC 3.44 10 6/mcL Low 4.04-6.13 [facility] ([place] Comment on above: Performed By: #### A NSG, CBC, ADIFF, ANEU, BMP, ALB, GFR, ABOG #### [address] [address] WBC 9.4 10 3/mcL Normal 4.6-10.8 [facility]) Comment on above: Performed By: #### A NSG, CBC, ADIFF, ANEU, BMP, ALB, GFR, ABOG #### [address] [address] LABORATORYOrdered By: SYSTEM SYSTEM on 09-19-2023 Calcium [Mass/Vol] 7.6 mg/dL Low 8.4 - 10. 2 mg/dL AO ADM SS Chloride [Moles/Vol] 105 mmol/L Normal 98 - 10 7 mmol/L AO ADM SS CO2 [Moles/Vol] 25 mmol/L Normal 23 - 31 mmol/L AO ADM SS Creatinine [Mass/Vol] 1.31 mg/dL High 0.70 - 1.30 mg/dL AO ADM SS Electrolyte Balance 8.0 mEq/L Normal 4.0 - 15 .0 mEq/L AO ADM SS GFR/1.73 sq M.predicted among blacks MDRD (S/P/Bld) [Vol rate/Area] 64 ml/min/1.73sqm Invalid Interpretation Code AO Chemistry S Comment on above: Interpretive Data: GFR Population mean for , Non- Americans Ages 20-29 = 116 mL/min/1.73 sq.m. Ages 30-39 = 107 mL/min/1.73 sq.m. Ages 40-49 = 99 mL/min/1.73 sq.m. Ages 50-59 = 93 mL/min/1.73 sq.m. Ages 60-69 = 85 mL/min/1.73 sq.m. Ages 70+ = 75 mL/min/1.73 sq.m. Chronic Kidney Disease: Less than 60 mL/min/1.73 square meters End Stage Renal Disease: Less than 15 mL/min/1.73 square meters GFR/1.73 sq M.predicted among non-blacks MDRD (S/P/Bld) [Vol rate/Area] 53 ml/min/1.73sqm Invalid Interpretation Code AO Chemistry S Comment on above: Interpretive Data: GFR Population mean for , Non- Americans Ages 20-29 = 116 mL/min/1.73 sq.m. Ages 30-39 = 107 mL/min/1.73 sq.m. Ages 40-49 = 99 mL/min/1.73 sq.m. Ages 50-59 = 93 mL/min/1.73 sq.m. Ages 60-69 = 85 mL/min/1.73 sq.m. Ages 70+ = 75 mL/min/1.73 sq.m. Chronic Kidney Disease: Less than 60 mL/min/1.73 square meters End Stage Renal Disease: Less than 15 mL/min/1.73 square meters Glucose [Mass/Vol] 119 mg/dL High 83 - 110 mg/dL AO ADM SS Potassium [Moles/Vol] 4.3 mmol/L Normal 3.5 - 5.1 mmol/L AO ADM SS Sodium [Moles/Vol] 138 mmol/L Normal 136 - 145 mmol/L AO ADM SS Urea nitrogen [Mass/Vol] 31 mg/dL High 7 - 18 mg/dL AO ADM SS Urea nitrogen/Creatinine [Mass ratio] 24 ratio Normal 7 - 27 ratio AO ADM SS Basophil, Absolute 0.0 103/mcL Normal 0.0 - 0.2 10^3/mcL AO Workflow SS Basophils/100 WBC (Bld) 0.3 % Normal 0.0 - 2.5 % AO Workflow SS Calcium [Mass/Vol] 8.1 mg/dL Low 8.4 - 10. 2 mg/dL AO ADM SS Chloride [Moles/Vol] 106 mmol/L Normal 98 - 10 7 mmol/L AO ADM SS CO2 [Moles/Vol] 26 mmol/L Normal 23 - 31 mmol/L AO ADM SS Creatinine [Mass/Vol] 1.31 mg/dL High 0.70 - 1.30 mg/dL AO ADM SS Electrolyte Balance 4.0 mEq/L Normal 4.0 - 15 .0 mEq/L AO ADM SS Eosinophil, Absolute 0.0 103/mcL Normal 0.0 - 0 .4 10^3/mcL AO Workflow SS Eosinophils/100 WBC (Bld) 0.2 % Normal 0.0 - 7.0 % AO Workflow SS Erythrocyte distribution width (RBC) [Ratio] 12.9 % Normal 11.5 - 14.5 % AO Workflow SS GFR/1.73 sq M.predicted among blacks MDRD (S/P/Bld) [Vol rate/Area] 64 ml/min/1.73sqm Invalid Interpretation Code AO Chemistry S Comment on above: Interpretive Data: GFR Population mean for , Non- Americans Ages 20-29 = 116 mL/min/1.73 sq.m. Ages 30-39 = 107 mL/min/1.73 sq.m. Ages 40-49 = 99 mL/min/1.73 sq.m. Ages 50-59 = 93 mL/min/1.73 sq.m. Ages 60-69 = 85 mL/min/1.73 sq.m. Ages 70+ = 75 mL/min/1.73 sq.m. Chronic Kidney Disease: Less than 60 mL/min/1.73 square meters End Stage Renal Disease: Less than 15 mL/min/1.73 square meters GFR/1.73 sq M.predicted among non-blacks MDRD (S/P/Bld) [Vol rate/Area] 53 ml/min/1.73sqm Invalid Interpretation Code AO Chemistry S Comment on above: Interpretive Data: GFR Population mean for , Non- Americans Ages 20-29 = 116 mL/min/1.73 sq.m. Ages 30-39 = 107 mL/min/1.73 sq.m. Ages 40-49 = 99 mL/min/1.73 sq.m. Ages 50-59 = 93 mL/min/1.73 sq.m. Ages 60-69 = 85 mL/min/1.73 sq.m. Ages 70+ = 75 mL/min/1.73 sq.m. Chronic Kidney Disease: Less than 60 mL/min/1.73 square meters End Stage Renal Disease: Less than 15 mL/min/1.73 square meters Glucose [Mass/Vol] 129 mg/dL High 83 - 110 mg/dL AO ADM SS Hematocrit (Bld) [Volume fraction] 32.2 % Low 42.0 - 52.0 % AO Workflow SS Hemoglobin (Bld) [Mass/Vol] 11.0 G/dL Low 14.0 - 18.0 G/dL AO Workflow SS Lymphocyte, Absolute 1.3 103/mcL Normal 0.8 - 3 .9 10^3/mcL AO Workflow SS Lymphocytes/100 WBC (Bld) 13.9 % Normal 10.0 - 50.0 % AO Workflow SS MCH (RBC) [Entitic mass] 31.9 pg High 27.0 - 31.2 pg AO Workflow SS MCHC 34.2 G/dL Normal 31.8 - 35.4 G/dL AO Workflow SS MCV (RBC) [Entitic vol] 93.4 fL Normal 80.0 - 94.0 fL AO Workflow SS Monocyte, Absolute 1.3 103/mcL High 0.2 - 1.0 10^3/mcL AO Workflow SS Monocytes/100 WBC (Bld) 13.6 % High 1.7 - 13.0 % AO Workflow SS Neutrophil, Absolute 6.7 103/mcL High 2.9 - 6 .2 10^3/mcL AO Workflow SS Neutrophils/100 WBC (Bld) 72.0 % Normal 37.0 - 80.0 % AO Workflow SS Platelet mean volume (Bld) [Entitic vol] 8.4 fL Normal 7.4 - 10.4 fL AO Workflow SS Platelets (Bld) [#/Vol] 192 103/mcL Normal 130 - 400 10^3/mcL AO Workflow SS Potassium [Moles/Vol] 4.9 mmol/L Normal 3.5 - 5.1 mmol/L AO ADM SS RBC (Bld) [#/Vol] 3.44 106/mcL Low 4.04 - 6.13 10^6/mcL AO Workflow SS Sodium [Moles/Vol] 136 mmol/L Normal 136 - 145 mmol/L AO ADM SS Urea nitrogen [Mass/Vol] 28 mg/dL High 7 - 18 mg/dL AO ADM SS Urea nitrogen/Creatinine [Mass ratio] 21 ratio Normal 7 - 27 ratio AO ADM SS WBC (Bld) [#/Vol] 9.4 103/mcL Normal 4.6 - 10.8 10^3/mcL AO Workflow SS Troponin I.cardiac DL <= 0.01 ng/mL [Mass/Vol] 62 ng/L Normal 0 - 76 ng/L AO ADM SS Comment on above: Interpretive Data: H igh Sensitive Troponin I Reference Ranges: Female: 0-51 ng/L Male: 0-76 ng/L Testing performed on [employer] using a homogeneous sandwich chemiluminescent immunoassay based on [employer] technology. [facility] 09-19-2023 High Sensitivity Troponin I 62 ng/L Normal 0-76 [facility] ([place]) Comment on above: Result Comment: High Sensitive Troponin I Reference Ranges: Female: 0-51 ng/L Male: 0-76 ng/L Testing performed on [employer] using a homogeneous sandwich chemiluminescent immunoassay based on [employer] technology. Performed By: #### A NSG, CBC, ADIFF, ANEU, BMP, ALB, GFR, ABOG #### [address] [address] .GFRon 09-18-2023 GFR 74 ml/min/1.73sqm Normal [facility] ([place]) Comment on above: Result Comment: GFR Population mean for , Non- Americans Ages 20-29 = 116 mL/min/1.73 sq.m. Ages 30-39 = 107 mL/min/1.73 sq.m. Ages 40-49 = 99 mL/min/1.73 sq.m. Ages 50-59 = 93 mL/min/1.73 sq.m. Ages 60-69 = 85 mL/min/1.73 sq.m. Ages 70+ = 75 mL/min/1.73 sq.m. Chronic Kidney Disease: Less than 60 mL/min/1.73 square meters End Stage Renal Disease: Less than 15 mL/min/1.73 square meters Performed By: #### A NSG, CBC, ADIFF, ANEU, BMP, ALB, GFR, ABOG #### [address] [address] GFR Non- 61 ml/min/1.73sqm Normal [facility] ([place]) Comment on above: Result Comment: GFR Population mean for , Non- Americans Ages 20-29 = 116 mL/min/1.73 sq.m. Ages 30-39 = 107 mL/min/1.73 sq.m. Ages 40-49 = 99 mL/min/1.73 sq.m. Ages 50-59 = 93 mL/min/1.73 sq.m. Ages 60-69 = 85 mL/min/1.73 sq.m. Ages 70+ = 75 mL/min/1.73 sq.m. Chronic Kidney Disease: Less than 60 mL/min/1.73 square meters End Stage Renal Disease: Less than 15 mL/min/1.73 square meters Performed By: #### A NSG, CBC, ADIFF, ANEU, BMP, ALB, GFR, ABOG #### [address] [address] ABO/Rh (Gel)on 09-18-2023 ABO/Rh Interp Positive Invalid Interpretation Code [facility] ([place]) Comment on above: Performed By: #### A NSG, CBC, ADIFF, ANEU, BMP, ALB, GFR, ABOG #### [address] [address] ABS (Gel)on 09-18-2023 ABSC Interp (Gel) Negative Normal [facility] ([place]) Comment on above: Performed By: #### A NSG, CBC, ADIFF, ANEU, BMP, ALB, GFR, ABOG #### [address] [address] CMPon 09-18-2023 Albumin Level 2.9 G/dL Low 3.4-4.8 [facility] ([place]) Comment on above: Performed By: #### A NSG, CBC, ADIFF, ANEU, BMP, ALB, GFR, ABOG #### [place] [address] Albumin/Globulin [Mass ratio] 1.1 {ratio} Normal 1.1-2.5 [facility] ([place] Comment on above: Performed By: #### A NSG, CBC, ADIFF, ANEU, BMP, ALB, GFR, ABOG #### [place] [address] ALP [Catalytic activity/Vol] 107 U/L Normal 40-135 [facility] ([place] Comment on above: Performed By: #### A NSG, CBC, ADIFF, ANEU, BMP, ALB, GFR, ABOG #### [place] [address] ALT [Catalytic activity/Vol] 18 U/L Normal 16-63 [facility] ([place] Comment on above: Performed By: #### A NSG, CBC, ADIFF, ANEU, BMP, ALB, GFR, ABOG #### [place] [address] AST [Catalytic activity/Vol] 20 U/L Normal 10-40 [facility] ([place] Comment on above: Performed By: #### A NSG, CBC, ADIFF, ANEU, BMP, ALB, GFR, ABOG #### [place] [address] Bili Total 0.5 mg/dL Normal 0.2-1.0 [facility] ([place] Comment on above: Result Comment: Use of this assay is not recommended for patients undergoing treatment with eltrombopag due to the potential for falsely elevated results. Performed By: #### A NSG, CBC, ADIFF, ANEU, BMP, ALB, GFR, ABOG #### [place] [address] BUN/Creatinine Ratio 19 ratio Normal 7-27 [facility] ([place] Comment on above: Performed By: #### A NSG, CBC, ADIFF, ANEU, BMP, ALB, GFR, ABOG #### [place] [id number] Calcium [Mass/Vol] 8.1 mg/dL Low 8.4-10.2 [facility] ([place] Comment on above: Performed By: #### A NSG, CBC, ADIFF, ANEU, BMP, ALB, GFR, ABOG #### [address] [address] Chloride [Moles/Vol] 105 mmol/L Normal 98-107 [facility] ([place] Comment on above: Performed By: #### A NSG, CBC, ADIFF, ANEU, BMP, ALB, GFR, ABOG #### [address] [address] CO2 [Moles/Vol] 28 mmol/L Normal 23-31 [facility] ([place] Comment on above: Performed By: #### A NSG, CBC, ADIFF, ANEU, BMP, ALB, GFR, ABOG #### [place] [address] Creatinine [Mass/Vol] 1.15 mg/dL Normal 0.70-1.30 [facility] ([place]) Comment on above: Performed By: #### A NSG, CBC, ADIFF, ANEU, BMP, ALB, GFR, ABOG #### [address] [address] Electrolyte Balance 4.0 mEq/L Normal 4.0-15.0 [facility] ([place]) Comment on above: Performed By: #### A NSG, CBC, ADIFF, ANEU, BMP, ALB, GFR, ABOG #### [address] [address] Globulin 2.7 G/dL Normal [facility] ([place] Comment on above: Performed By: #### A NSG, CBC, ADIFF, ANEU, BMP, ALB, GFR, ABOG #### [address] [address] Glucose [Mass/Vol] 175 mg/dL High 83-110 [facility] ([place] Comment on above: Performed By: #### A NSG, CBC, ADIFF, ANEU, BMP, ALB, GFR, ABOG #### [address] [address] Potassium [Moles/Vol] 4.1 mmol/L Normal 3.5-5.1 [facility] ([place] Comment on above: Performed By: #### A NSG, CBC, ADIFF, ANEU, BMP, ALB, GFR, ABOG #### [address] [address] Sodium [Moles/Vol] 137 mmol/L Normal 136-145 [facility] ([place] Comment on above: Performed By: #### A NSG, CBC, ADIFF, ANEU, BMP, ALB, GFR, ABOG #### [address] [address] Total Protein 5.6 G/dL Low 6.4-8.2 [facility] ([place] Comment on above: Performed By: #### A NSG, CBC, ADIFF, ANEU, BMP, ALB, GFR, ABOG #### [address] [address] Urea nitrogen [Mass/Vol] 22 mg/dL High 7-18 [facility] ([place] Comment on above: Performed By: #### A NSG, CBC, ADIFF, ANEU, BMP, ALB, GFR, ABOG #### [address] [address] LABORATORYOrdered By: SYSTEM SYSTEM on 09-18-2023 Albumin BCP dye [Mass/Vol] 2.9 G/dL Low 3.4 - 4.8 G/dL AO ADM SS Albumin/Globulin [Mass ratio] 1.1 {ratio} Normal 1.1 - 2.5 ratio AO ADM SS ALP [Catalytic activity/Vol] 107 U/L Normal 40 - 135 U/L AO ADM SS ALT With P-5'-P [Catalytic activity/Vol] 18 U/L Normal 16 - 63 U/L AO ADM SS AST With P-5'-P [Catalytic activity/Vol] 20 U/L Normal 10 - 40 U/L AO ADM SS Bilirubin [Mass/Vol] 0.5 mg/dL Normal 0.2 - 1 .0 mg/dL AO ADM SS Comment on above: Interpretive Data: U se of this assay is not recommended for patients undergoing treatment with eltrombopag due to the potential for falsely elevated results. Globulin 2.7 G/dL Invalid Interpretation Code AO ADM SS Magnesium [Mass/Vol] 1.8 mg/dL Normal 1.8 - 2 .4 mg/dL AO ADM SS Natriuretic peptide.B prohormone N-Terminal [Mass/Vol] 1124 pg/mL High 0 - 450 pg/mL AO ADM SS Comment on above: Interpretive Data: N T-proBNP results of less than 300 pg/mL effectively rules out acute congestive heart failure with 99% negative predictive value. Protein [Mass/Vol] 5.6 G/dL Low 6.4 - 8.2 G/dL AO ADM SS Troponin I.cardiac DL <= 0.01 ng/mL [Mass/Vol] 61 ng/L Normal 0 - 76 ng/L AO ADM SS Comment on above: Interpretive Data: H igh Sensitive Troponin I Reference Ranges: Female: 0-51 ng/L Male: 0-76 ng/L Testing performed on [employer] using a homogeneous sandwich chemiluminescent immunoassay based on [employer] technology. LABORATORYOrdered By: Zena Narayan on 09-18-2023 ABO and Rh group Nom (Bld) Blood group O Rh(D) positive Invalid Interpretation Code AO BB Auto SS Blood group antibody screen Ql Negative ABSC (09/18/23 9:07 AM) Normal AO BB Auto SS MGon 09-18-2023 Magnesium [Mass/Vol] 1.8 mg/dL Normal 1.8-2.4 [facility] ([place] Comment on above: Performed By: #### A NSG, CBC, ADIFF, ANEU, BMP, ALB, GFR, ABOG #### [address] [address] PBNPon 09-18-2023 Natriuretic peptide B (Bld) [Mass/Vol] 1124 pg/mL High 0-450 [facility] ([place] Comment on above: Result Comment: NT-p roBNP results of less than 300 pg/mL effectively rules out acute congestive heart failure with 99% negative predictive value. Performed By: #### A NSG, CBC, ADIFF, ANEU, BMP, ALB, GFR, ABOG #### [facility] [address] [place], [place] [address] TROPHSon 09-18-2023 High Sensitivity Troponin I 61 ng/L Normal 0-76 [facility] ([place] Comment on above: Result Comment: High Sensitive Troponin I Reference Ranges: Female: 0-51 ng/L Male: 0-76 ng/L Testing performed on [employer] using a homogeneous sandwich chemiluminescent immunoassay based on [employer] technology. Performed By: #### A NSG, CBC, ADIFF, ANEU, BMP, ALB, GFR, ABOG #### [facility] [address] [place], [place] [address] XR FLUORO 1-2 HRS TECH TIMEo n 09-18-2023 XR FLUORO 1-2 HRS TECH TIME ORIGINAL Images acquired, not reported on this accession number. Normal [facility] ([place] XR HIP LEFT W/PELVIS 4 VIEWS on 09-18-2023 XR HIP LEFT W/PELVIS 4 VIEWS ORIGINAL EXAMINATION: 2 XRAY VIEWS OF THE LEFT HIP. 1 VIEW OF THE PELVIS. COMPARISON: Prior left hip radiographs dated 08/25/2022. HISTORY: ORDERING SYSTEM PROVIDED HISTORY: Reason for Exam: Status Post Arthroplasty FINDINGS: Postsurgical changes are seen status post left total hip arthroplasty. No acute fracture, dislocation, or hardware failure is seen. Subcutaneous emphysema is seen and expected in the postsurgical state. No unexpected radiopaque foreign bodies. 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 Visualized aspects of the pelvis are intact without acute fracture. The SI joints are symmetric bilaterally. Degenerative changes of the lumbar spine are seen. IMPRESSION: Expected postsurgical changes status post left total hip arthroplasty. Interpreted by: Moody Barnard MD Preliminary Report By: Moody Barnard MD Electronically signed By Moody Barnard MD Dictated Date: 09/18/2023 1:35:28 PM Prelim Date: 09/18/2023 1:36:27 PM Sign Date: 09/18/2023 1:36:27 PM Ordering Provider: IWONA SCHREIBER Normal [facility] ([place]) ALBon 08-10-2023 Albumin Level 3.5 G/dL Normal 3.4-4.8 [facility] ([place] Comment on above: Performed By: #### A NSG, CBC, ADIFF, ANEU, BMP, ALB, GFR, ABOG #### [address] [address] .Auto Diffon 07-23-2023 Basophil, Absolute 0.0 10 3/mcL Normal 0.0-0.2 [facility] ([place] Comment on above: Performed By: #### A NSG, CBC, ADIFF, ANEU, BMP, ALB, GFR, ABOG #### [address] [address] Basophils/100 WBC (Bld) 0.6 % Normal 0.0-2.5 [facility] ([place] Comment on above: Performed By: #### A NSG, CBC, ADIFF, ANEU, BMP, ALB, GFR, ABOG #### [address] [address] Eosinophil, Absolute 0.2 10 3/mcL Normal 0.0-0.4 [facility] ([place] Comment on above: Performed By: #### A NSG, CBC, ADIFF, ANEU, BMP, ALB, GFR, ABOG #### [address] [address] Eosinophils/100 WBC (Bld) 2.4 % Normal 0.0-7.0 [facility] ([place] Comment on above: Performed By: #### A NSG, CBC, ADIFF, ANEU, BMP, ALB, GFR, ABOG #### [address] [address] Lymphocyte, Absolute 1.3 10 3/mcL Normal 0.8-3.9 [facility] ([place] Comment on above: Performed By: #### A NSG, CBC, ADIFF, ANEU, BMP, ALB, GFR, ABOG #### [address] [address] Lymphocytes/100 WBC (Bld) 19.8 % Normal 10.0-50.0 [facility] ([place] Comment on above: Performed By: #### A NSG, CBC, ADIFF, ANEU, BMP, ALB, GFR, ABOG #### [address] [address] Monocyte, Absolute 0.8 10 3/mcL Normal 0.2-1.0 [facility] ([place] Comment on above: Performed By: #### A NSG, CBC, ADIFF, ANEU, BMP, ALB, GFR, ABOG #### [address] [address] Monocytes/100 WBC (Bld) 12.5 % Normal 1.7-13.0 [facility] ([place] Comment on above: Performed By: #### A NSG, CBC, ADIFF, ANEU, BMP, ALB, GFR, ABOG #### [address] [address] Neutrophils/100 WBC (Bld) 64.7 % Normal 37.0-80.0 [facility] ([place] Comment on above: Performed By: #### A NSG, CBC, ADIFF, ANEU, BMP, ALB, GFR, ABOG #### [address] [address] .GFRon 07-23-2023 GFR 105 ml/min/1.73sqm Normal [facility] ([place] Comment on above: Result Comment: GFR Population mean for , Non- Americans Ages 20-29 = 116 mL/min/1.73 sq.m. Ages 30-39 = 107 mL/min/1.73 sq.m. Ages 40-49 = 99 mL/min/1.73 sq.m. Ages 50-59 = 93 mL/min/1.73 sq.m. Ages 60-69 = 85 mL/min/1.73 sq.m. Ages 70+ = 75 mL/min/1.73 sq.m. Chronic Kidney Disease: Less than 60 mL/min/1.73 square meters End Stage Renal Disease: Less than 15 mL/min/1.73 square meters Performed By: #### A NSG, CBC, ADIFF, ANEU, BMP, ALB, GFR, ABOG #### [address] [address] GFR Non- 87 ml/min/1.73sqm Normal [facility] ([place] Comment on above: Result Comment: GFR Population mean for , Non- Americans Ages 20-29 = 116 mL/min/1.73 sq.m. Ages 30-39 = 107 mL/min/1.73 sq.m. Ages 40-49 = 99 mL/min/1.73 sq.m. Ages 50-59 = 93 mL/min/1.73 sq.m. Ages 60-69 = 85 mL/min/1.73 sq.m. Ages 70+ = 75 mL/min/1.73 sq.m. Chronic Kidney Disease: Less than 60 mL/min/1.73 square meters End Stage Renal Disease: Less than 15 mL/min/1.73 square meters Performed By: #### A NSG, CBC, ADIFF, ANEU, BMP, ALB, GFR, ABOG #### [address] [address] .NEUABSon 07-23-2023 Neutrophil, Absolute 4.2 10 3/mcL Normal 2.9-6.2 [facility] ([place] Comment on above: Performed By: #### A NSG, CBC, ADIFF, ANEU, BMP, ALB, GFR, ABOG #### [address] [address] ALBon 07-23-2023 Albumin Level 3.2 G/dL Low 3.4-4.8 [facility] ([place] Comment on above: Performed By: #### A NSG, CBC, ADIFF, ANEU, BMP, ALB, GFR, ABOG #### [address] [address] BMPon 07-23-2023 BUN/Creatinine Ratio 25 ratio Normal 7-27 [facility] ([place] Comment on above: Performed By: #### A NSG, CBC, ADIFF, ANEU, BMP, ALB, GFR, ABOG #### [address] [address] Calcium [Mass/Vol] 8.8 mg/dL Normal 8.4-10.2 [facility] ([place] Comment on above: Performed By: #### A NSG, CBC, ADIFF, ANEU, BMP, ALB, GFR, ABOG #### [address] [address] Chloride [Moles/Vol] 105 mmol/L Normal 98-107 [facility] ([place] Comment on above: Performed By: #### A NSG, CBC, ADIFF, ANEU, BMP, ALB, GFR, ABOG #### [address] [address] CO2 [Moles/Vol] 28 mmol/L Normal 23-31 [facility] ([place] Comment on above: Performed By: #### A NSG, CBC, ADIFF, ANEU, BMP, ALB, GFR, ABOG #### [address] [address] Creatinine [Mass/Vol] 0.85 mg/dL Normal 0.70-1.30 [facility] ([place]) Comment on above: Performed By: #### A NSG, CBC, ADIFF, ANEU, BMP, ALB, GFR, ABOG #### [address] [address] Electrolyte Balance 8.0 mEq/L Normal 4.0-15.0 [facility] ([place]) Comment on above: Performed By: #### A NSG, CBC, ADIFF, ANEU, BMP, ALB, GFR, ABOG #### [address] [address] Glucose [Mass/Vol] 110 mg/dL Normal 83-110 [facility] ([place] Comment on above: Performed By: #### A NSG, CBC, ADIFF, ANEU, BMP, ALB, GFR, ABOG #### [address] [address] Potassium [Moles/Vol] 4.6 mmol/L Normal 3.5-5.1 [facility] ([place] Comment on above: Performed By: #### A NSG, CBC, ADIFF, ANEU, BMP, ALB, GFR, ABOG #### [address] [address] Sodium [Moles/Vol] 141 mmol/L Normal 136-145 [facility] ([place] Comment on above: Performed By: #### A NSG, CBC, ADIFF, ANEU, BMP, ALB, GFR, ABOG #### [address] [address] Urea nitrogen [Mass/Vol] 21 mg/dL High 7-18 [facility] ([place] Comment on above: Performed By: #### A NSG, CBC, ADIFF, ANEU, BMP, ALB, GFR, ABOG #### [address] [address] CBCon 07-23-2023 Erythrocyte distribution width (RBC) [Ratio] 14.3 % Normal 11.5-14.5 [facility] ([place] Comment on above: Order Comment: Pre-A dmission Testing Performed By: #### A NSG, CBC, ADIFF, ANEU, BMP, ALB, GFR, ABOG #### [address] [address] Hematocrit (Bld) [Volume fraction] 38.7 % Low 42.0-52.0 [facility] ([place] Comment on above: Order Comment: Pre-A dmission Testing Performed By: #### A NSG, CBC, ADIFF, ANEU, BMP, ALB, GFR, ABOG #### [address] [address] Hgb 13.0 G/dL Low 14.0-18.0 [facility] ([place] Comment on above: Order Comment: Pre-A dmission Testing Performed By: #### A NSG, CBC, ADIFF, ANEU, BMP, ALB, GFR, ABOG #### [address] [address] MCH (RBC) [Entitic mass] 31.5 pg High 27.0-31.2 [facility] ([place] Comment on above: Order Comment: Pre-A dmission Testing Performed By: #### A NSG, CBC, ADIFF, ANEU, BMP, ALB, GFR, ABOG #### [address] [address] MCHC 33.6 G/dL Normal 31.8-35.4 [facility] ([place] Comment on above: Order Comment: Pre-A dmission Testing Performed By: #### A NSG, CBC, ADIFF, ANEU, BMP, ALB, GFR, ABOG #### [address] [address] MCV (RBC) [Entitic vol] 93.8 fL Normal 80.0-94.0 [facility] ([place]) Comment on above: Order Comment: Pre-A dmission Testing Performed By: #### A NSG, CBC, ADIFF, ANEU, BMP, ALB, GFR, ABOG #### [address] [address] Platelet 192 10 3/mcL Normal 130-400 [facility] ([place] Comment on above: Order Comment: Pre-A dmission Testing Performed By: #### A NSG, CBC, ADIFF, ANEU, BMP, ALB, GFR, ABOG #### [address] [address] Platelet mean volume (Bld) [Entitic vol] 9.1 fL Normal 7.4-10.4 [facility] ([place] Comment on above: Order Comment: Pre-A dmission Testing Performed By: #### A NSG, CBC, ADIFF, ANEU, BMP, ALB, GFR, ABOG #### [address] [address] RBC 4.12 10 6/mcL Normal 4.04-6.13 [facility] ([place] Comment on above: Order Comment: Pre-A dmission Testing Performed By: #### A NSG, CBC, ADIFF, ANEU, BMP, ALB, GFR, ABOG #### [address] [address] WBC 6.5 10 3/mcL Normal 4.6-10.8 [facility] ([place] Comment on above: Order Comment: Pre-A dmission Testing Performed By: #### A NSG, CBC, ADIFF, ANEU, BMP, ALB, GFR, ABOG #### [place] [address] [place], [place] [address] Gel ABOon 07-23-2023 ABO/Rh Interp Positive Invalid Interpretation Code [facility] ([place] Comment on above: Order Comment: SURG CALEB 08/14 -AC Performed By: #### A NSG, CBC, ADIFF, ANEU, BMP, ALB, GFR, ABOG #### [place] [address] [place], [place] [address] Gel ABSon 07-23-2023 Antibody Screen Gel Negative Normal [facility] ([place]) Comment on above: Order Comment: SURG CALEB 08/14 -AC Performed By: #### A NSG, CBC, ADIFF, ANEU, BMP, ALB, GFR, ABOG #### [address] [address] LABORATORYOrdered By: Anastasia Duke on 07-23-2023 ABO/Rh Interp Positive Invalid Interpretation Code AO BB SS Antibody Screen Gel Negative ABSC (07/23/23 10:27 AM) Normal AO BB SS LABORATORYOrdered By: SYSTEM SYSTEM on 07-23-2023 Albumin BCP dye [Mass/Vol] 3.2 G/dL Low 3.4 - 4.8 G/dL AO ADM SS Basophil, Absolute 0.0 103/mcL Normal 0.0 - 0.2 10^3/mcL AO Workflow SS Basophils/100 WBC (Bld) 0.6 % Normal 0.0 - 2.5 % AO Workflow SS Calcium [Mass/Vol] 8.8 mg/dL Normal 8.4 - 10. 2 mg/dL AO ADM SS Chloride [Moles/Vol] 105 mmol/L Normal 98 - 10 7 mmol/L AO ADM SS CO2 [Moles/Vol] 28 mmol/L Normal 23 - 31 mmol/L AO ADM SS Creatinine [Mass/Vol] 0.85 mg/dL Normal 0.70 - 1.30 mg/dL AO ADM SS Electrolyte Balance 8.0 mEq/L Normal 4.0 - 15 .0 mEq/L AO ADM SS Eosinophil, Absolute 0.2 103/mcL Normal 0.0 - 0 .4 10^3/mcL AO Workflow SS Eosinophils/100 WBC (Bld) 2.4 % Normal 0.0 - 7.0 % AO Workflow SS Erythrocyte distribution width (RBC) [Ratio] 14.3 % Normal 11.5 - 14.5 % AO Workflow SS GFR/1.73 sq M.predicted among blacks MDRD (S/P/Bld) [Vol rate/Area] 105 ml/min/1.73sqm Invalid Interpretation Code AO Chemistry S Comment on above: Interpretive Data: GFR Population mean for , Non- Americans Ages 20-29 = 116 mL/min/1.73 sq.m. Ages 30-39 = 107 mL/min/1.73 sq.m. Ages 40-49 = 99 mL/min/1.73 sq.m. Ages 50-59 = 93 mL/min/1.73 sq.m. Ages 60-69 = 85 mL/min/1.73 sq.m. Ages 70+ = 75 mL/min/1.73 sq.m. Chronic Kidney Disease: Less than 60 mL/min/1.73 square meters End Stage Renal Disease: Less than 15 mL/min/1.73 square meters GFR/1.73 sq M.predicted among non-blacks MDRD (S/P/Bld) [Vol rate/Area] 87 ml/min/1.73sqm Invalid Interpretation Code AO Chemistry S Comment on above: Interpretive Data: GFR Population mean for , Non- Americans Ages 20-29 = 116 mL/min/1.73 sq.m. Ages 30-39 = 107 mL/min/1.73 sq.m. Ages 40-49 = 99 mL/min/1.73 sq.m. Ages 50-59 = 93 mL/min/1.73 sq.m. Ages 60-69 = 85 mL/min/1.73 sq.m. Ages 70+ = 75 mL/min/1.73 sq.m. Chronic Kidney Disease: Less than 60 mL/min/1.73 square meters End Stage Renal Disease: Less than 15 mL/min/1.73 square meters Glucose [Mass/Vol] 110 mg/dL Normal 83 - 110 mg/dL AO ADM SS Hematocrit (Bld) [Volume fraction] 38.7 % Low 42.0 - 52.0 % AO Workflow SS Hemoglobin (Bld) [Mass/Vol] 13.0 G/dL Low 14.0 - 18.0 G/dL AO Workflow SS Lymphocyte, Absolute 1.3 103/mcL Normal 0.8 - 3 .9 10^3/mcL AO Workflow SS Lymphocytes/100 WBC (Bld) 19.8 % Normal 10.0 - 50.0 % AO Workflow SS MCH (RBC) [Entitic mass] 31.5 pg High 27.0 - 31.2 pg AO Workflow SS MCHC 33.6 G/dL Normal 31.8 - 35.4 G/dL AO Workflow SS MCV (RBC) [Entitic vol] 93.8 fL Normal 80.0 - 94.0 fL AO Workflow SS Monocyte, Absolute 0.8 103/mcL Normal 0.2 - 1.0 10^3/mcL AO Workflow SS Monocytes/100 WBC (Bld) 12.5 % Normal 1.7 - 13.0 % AO Workflow SS Neutrophil, Absolute 4.2 103/mcL Normal 2.9 - 6 .2 10^3/mcL AO Workflow SS Neutrophils/100 WBC (Bld) 64.7 % Normal 37.0 - 80.0 % AO Workflow SS Platelet mean volume (Bld) [Entitic vol] 9.1 fL Normal 7.4 - 10.4 fL AO Workflow SS Platelets (Bld) [#/Vol] 192 103/mcL Normal 130 - 400 10^3/mcL AO Workflow SS Potassium [Moles/Vol] 4.6 mmol/L Normal 3.5 - 5.1 mmol/L AO ADM SS RBC (Bld) [#/Vol] 4.12 106/mcL Normal 4.04 - 6.13 10^6/mcL AO Workflow SS Sodium [Moles/Vol] 141 mmol/L Normal 136 - 145 mmol/L AO ADM SS Urea nitrogen [Mass/Vol] 21 mg/dL High 7 - 18 mg/dL AO ADM SS Urea nitrogen/Creatinine [Mass ratio] 25 ratio Normal 7 - 27 ratio AO ADM SS WBC (Bld) [#/Vol] 6.5 103/mcL Normal 4.6 - 10.8 10^3/mcL AO Workflow SS LABORATORYOrdered By: Reggie Carmona on 07-23-2023 MRSA (PCR) Not Detected 1 (07/23/23 10:27 AM) Normal Not Detected [facility] Comment on above: Result Comment: Note s [id number] MRSA PCR Int MRSA DNA not detecte d by Real-Time Polymerase Chain Reaction (PCR). A negative result may be due to intermittent colonization. Colonization may vary depending on patient treatment, patient status, or exposure to high-risk environments.As with all PCR based in vitro diagnostic tests, extremely low levels of target below the limit of detection of the assay may be detected, but results may not be reproducible. Invalid Interpretation Code [facility] Auto Viro/Sero SS MRSAPCRon 07-23-2023 MRSA (PCR) Not detected Normal Not Detected [facility] ([place]) Comment on above: Result Comment: Note s [id number] Performed By: #### A NSG, CBC, ADIFF, ANEU, BMP, ALB, GFR, ABOG #### [place] [id number] MRSA PCR Int Normal [facility] ([place]) Comment on above: Result Comment: MRSA DNA not detected by Real-Time Polymerase Chain Reaction (PCR). A negative result may be due to intermittent colonization. Colonization may vary depending on patient treatment, patient status, or exposure to high-risk environments. As with all PCR based in vitro diagnostic tests, extremely low levels of target below the limit of detection of the assay may be detected, but results may not be reproducible. See Below Performed By: #### A NSG, CBC, ADIFF, ANEU, BMP, ALB, GFR, ABOG #### [place] [id number] IMIPENEM:SUSC:PT:ISOLATE:ORD QN:MICon 05-31-2023 Imipenem DANNIELLE [Susc] >100,000 cfu/ml Esch erichia coli [facility] Work Phone: Imipenem DANNIELLE [Susc]on 2022 Escherichia coli Escherichia coli [facility] Work Phone: Absolute lymphocyte countOrd ered By: Petra Villegas on 05-14-2023 Lymphocytes Auto (Unsp spec) [#/Vol] 1.28 10*3/uL 0.83-4.51 [facility] Basophil percentageOrdered B y: Petra Villegas on 05-14-2023 Basophils/100 WBC (Bld) 0.6 % 0-1 [facility] Chloride [Moles/Vol] 108 mmol/L 98-107 [facility] Eosinophils/100 WBC (Bld) 0.2 % 0-5 [facility] Glucose [Mass/Vol] 134 mg/dL 74-106 [facility] Comment on above: Fasting Glucose resu lt greater than or equal to 126 mg/dL suggests DIABETES MELLITUS per A.D.A. criteria. Neutrophils (Bld) [#/Vol] 10.8 10*3/uL 2.0-7.7 [facility] Neutrophils/100 WBC (Bld) 83.4 % 47-70 [facility] Potassium [Moles/Vol] 4.6 mmol/L 3.5-5.1 [facility] Sodium [Moles/Vol] 141 mmol/L 136-145 [facility] WBC (Bld) [#/Vol] 12.9 10*3/uL 4.4-11.0 [facility] Blood erythrocytes count (nu mber/volume)Ordered By: Petra Villegas on 05-14-2023 RBC (Bld) [#/Vol] 4.29 10*6/uL 4.6-6.2 [facility] Blood hemoglobin measurement (mass/volume)Ordered By: Petra Villegas on 05-14-2023 Hemoglobin (Bld) [Mass/Vol] 13.0 g/dL 13.0-16.5 [facility] Blood lymphocytes/100 leukoc ytesOrdered By: Petra Villegas on 05-14-2023 Lymphocytes/100 WBC (Bld) 9.9 % 19-41 [facility] Blood monocytes/100 leukocyt esOrdered By: Petra Villegas on 05-14-2023 Monocytes/100 WBC (Bld) 4.3 % 0-10 [facility] Blood platelet mean volumeOr dered By: Petra Villegas on 05-14-2023 Platelet mean volume (Bld) [Entitic vol] 9.7 fL 6.2-12.0 [facility] Determination of erythrocyte mean corpuscular volume (MCV)Ordered By: Petra Villegas on 05-14-2023 MCV (RBC) [Entitic vol] 99.3 fL 80-94 [facility] Hematocrit Auto (Bld) [Volum e fraction]Ordered By: Petra Villegas on 05-14-2023 Hematocrit (Bld) [Volume fraction] 42.6 % 40-54 [facility] Laboratory - Chemistry and C hemistry - challengeOrdered By: Petra Villegas on 05-14-2023 CO2 [Moles/Vol] 25.0 mmol/L 21.0-32.0 [facility] Natriuretic peptide B (Bld) [Mass/Vol] 374.3 pg/mL 0-100 [facility] Urea nitrogen/Creatinine [Mass ratio] 25.2 mg/mg 10-20 [facility] Laboratory - Hematology and Cell countsOrdered By: Petra Villegas on 05-14-2023 Erythrocyte distribution width (RBC) [Entitic vol] 48.9 fL 35.1-43.9 [facility] Erythrocyte distribution width (RBC) [Ratio] 13.6 % 11.6-14.6 [facility] Immature granulocytes/100 WBC (Bld) 1.600 % 0.0-0.9 [facility] Comment on above: IG% - Immature Granu locytes (promyelocytes, myelocytes and metamyelocytes) > 1% indicates that a LEFT SHIFT is Present. MCH (RBC) [Entitic mass] 30.3 pg 27.0-32.0 [facility] Nucleated RBC/100 WBC (Bld) [Ratio] 0 % 0-5 [facility] MCHC Auto (RBC) [Mass/Vol]Or dered By: Petra Villegas on 05-14-2023 MCHC (RBC) [Mass/Vol] 30.5 g/dL 32-36 [facility] No Panel InformationOrdered By: Petra Villegas on 05-14-2023 Estimated GFR (MDRD) Amer 86 mL/min >60 [facility] Comment on above: GFR Calc Estimated GFR (MDRD) Non-Af Amer 71 mL/min >60 [facility] Comment on above: Non- GFR Calc Platelets bldOrdered By: Mli Villegas on 05-14-2023 Platelets (Bld) [#/Vol] 351 10*3/uL 150-450 [facility] Serum or plasma calcium kian urement (mass/volume)Ordered By: Petra Villegas on 05-14-2023 Calcium [Mass/Vol] 8.6 mg/dL 8.5-10.1 [facility] Serum or plasma creatinine m easurement (mass/volume)Ordered By: Petra Villegas on 05-14-2023 Creatinine [Mass/Vol] 1.07 mg/dL 0.70-1.30 [facility] Comment on above: The validity of the calculated GFR & GFRAA in patients over 70 years has not been determined. Clinical correlation is essential. Serum or plasma urea nitroge n measurement (mass/volume)Ordered By: Petra Villegas on 05-14-2023 Urea nitrogen [Mass/Vol] 27 mg/dL 7-18 [facility] Thin prep Papanicolaou smear with manual screeningOrdered By: Petra Villegas on 05-14-2023 Thin prep Papanicolaou smear with manual screening 8 5-15 [facility] Glucose Glucometer (BldC) [M ass/Vol]Ordered By: Sean Ayala on 04-29-2023 Glucose [Mass/Vol] 137 mg/dL 74-106 [facility] Comment on above: MANAGEMENT OF PATIEN T CARE PER NURSING PROTOCOL Absolute lymphocyte countOrd ered By: Sean Ayala on 04-28-2023 Lymphocytes Auto (Unsp spec) [#/Vol] 1.39 10*3/uL 0.83-4.51 [facility] Basophil percentageOrdered B y: Sean Ayala on 04-28-2023 Basophils/100 WBC (Bld) 0.7 % 0-1 [facility] Chloride [Moles/Vol] 111 mmol/L 98-107 [facility] Cholesterol [Mass/Vol] 121 mg/dL <200 [facility] Comment on above: <200 mg/dL Desirable 200-240 mg/dL Borderline >240 mg/dL High Risk Eosinophils/100 WBC (Bld) 2.2 % 0-5 [facility] Glucose [Mass/Vol] 104 mg/dL 74-106 [facility] Comment on above: Fasting Glucose resu lt from 100 to 125 mg/dL suggests IMPAIRED HOMEOSTASIS per A.D.A. criteria. Neutrophils (Bld) [#/Vol] 5.6 10*3/uL 2.0-7.7 [facility] Neutrophils/100 WBC (Bld) 70.1 % 47-70 [facility] Potassium [Moles/Vol] 4.1 mmol/L 3.5-5.1 [facility] Sodium [Moles/Vol] 141 mmol/L 136-145 [facility] Triglyceride [Mass/Vol] 98 mg/dL <199 [facility] Comment on above: The drugs N-Acetylcy steine and Metamizole may falsely depress this assay.Serum Triglycerides Reference Interval Normal <150 mg/dL Borderline high 150 - 199 mg/dL High 200 - 499 mg/dL Very High > or = 500 mg/dL WBC (Bld) [#/Vol] 8.1 10*3/uL 4.4-11.0 [facility] Blood erythrocytes count (nu mber/volume)Ordered By: Sean Ayala on 04-28-2023 RBC (Bld) [#/Vol] 4.14 10*6/uL 4.6-6.2 [facility] Blood hemoglobin measurement (mass/volume)Ordered By: Sean Ayala on 04-28-2023 Hemoglobin (Bld) [Mass/Vol] 12.7 g/dL 13.0-16.5 [facility] Blood lymphocytes/100 leukoc ytesOrdered By: Sean Ayala on 04-28-2023 Lymphocytes/100 WBC (Bld) 17.2 % 19-41 [facility] Blood monocytes/100 leukocyt esOrdered By: Sean Ayala on 04-28-2023 Monocytes/100 WBC (Bld) 8.9 % 0-10 [facility] Blood platelet mean volumeOr dered By: Sean Ayala on 04-28-2023 Platelet mean volume (Bld) [Entitic vol] 10.6 fL 6.2-12.0 [facility] Determination of erythrocyte mean corpuscular volume (MCV)Ordered By: Sean Ayala on 04-28-2023 MCV (RBC) [Entitic vol] 99.5 fL 80-94 [facility] Hematocrit Auto (Bld) [Volum e fraction]Ordered By: Sean Ayala on 04-28-2023 Hematocrit (Bld) [Volume fraction] 41.2 % 40-54 [facility] Laboratory - Chemistry and C hemistry - challengeOrdered By: Sean Ayala on 04-28-2023 CO2 [Moles/Vol] 25.0 mmol/L 21.0-32.0 [facility] Urea nitrogen/Creatinine [Mass ratio] 26.8 mg/mg 10-20 [facility] Laboratory - Hematology and Cell countsOrdered By: Sean Ayala on 04-28-2023 Erythrocyte distribution width (RBC) [Entitic vol] 47.0 fL 35.1-43.9 [facility] Erythrocyte distribution width (RBC) [Ratio] 13.0 % 11.6-14.6 [facility] Immature granulocytes/100 WBC (Bld) 0.900 % 0.0-0.9 [facility] Comment on above: IG% - Immature Granu locytes (promyelocytes, myelocytes and metamyelocytes) > 1% indicates that a LEFT SHIFT is Present. MCH (RBC) [Entitic mass] 30.7 pg 27.0-32.0 [facility] Nucleated RBC/100 WBC (Bld) [Ratio] 0 % 0-5 [facility] MCHC Auto (RBC) [Mass/Vol]Or dered By: Sean Ayala on 04-28-2023 MCHC (RBC) [Mass/Vol] 30.8 g/dL 32-36 [facility] No Panel InformationOrdered By: Rodney Brown on 04-28-2023 Troponin I High Sensitivity 1371 pg/mL 3.0-78.0 [facility] Comment on above: Critical Result(s) C alled at: 10:26:00 04/28/2023 by: Felix Willett RN (ICU). Results read back by same. Please Note: New Test Units and Gender Specific Reference Ranges. For more information see Policy Stat Procedure [place] High Sensitivity Troponin (TNIH) and attachments. No Panel InformationOrdered By: Sean Ayala on 04-28-2023 Estimated Creatinine Clearance Calc 71.85 ml/min [facility] Estimated GFR (MDRD) Amer 116 mL/min >60 [facility] Comment on above: GFR Calc Estimated GFR (MDRD) Non-Af Amer 96 mL/min >60 [facility] Comment on above: Non- GFR Calc Thyroid Stimulating Hormone (TSH) 2.45 uIU/mL 0.358-3.74 [facility] Platelets bldOrdered By: Meli Ayala on 04-28-2023 Platelets (Bld) [#/Vol] 199 10*3/uL 150-450 [facility] Serum or plasma calcium kian urement (mass/volume)Ordered By: Sean Ayala on 04-28-2023 Calcium [Mass/Vol] 8.3 mg/dL 8.5-10.1 [facility] Serum or plasma cholesterol in HDL measurement (mass/volume)Ordered By: Sean Ayala on 04-28-2023 Cholesterol in HDL [Mass/Vol] 43 mg/dL >40 [facility] Comment on above: The drugs N-Acetylcy steine and Metamizole may falsely depress this assay. Reference Range HDL <40 mg/dL Low HDL Cholesterol HDL >or= 60 mg/dL High HDL Cholesterol Serum or plasma cholesterol in VLDL measurement (mass/volume)Ordered By: Sean Ayala on 04-28-2023 Cholesterol in VLDL [Mass/Vol] 20 mg/dL 5-40 [facility] Serum or plasma creatinine m easurement (mass/volume)Ordered By: Sean Ayala on 04-28-2023 Creatinine [Mass/Vol] 0.82 mg/dL 0.70-1.30 [facility] Comment on above: The validity of the calculated GFR & GFRAA in patients over 70 years has not been determined. Clinical correlation is essential. Serum or plasma low density lipoprotein (LDL) cholesterol measurement (mass/volume)Ordered By: Sean Ayala on 04-28-2023 Cholesterol in LDL [Mass/Vol] 58 mg/dL 0-130 [facility] Serum or plasma urea nitroge n measurement (mass/volume)Ordered By: Sean Ayala on 04-28-2023 Urea nitrogen [Mass/Vol] 22 mg/dL 7-18 [facility] Thin prep Papanicolaou smear with manual screeningOrdered By: Sean Ayala on 04-28-2023 Thin prep Papanicolaou smear with manual screening 5 5-15 [facility] Whole blood hemoglobin A1c/t otal hemoglobin ratio (mass fraction)Ordered By: Sean Ayala on 04-28-2023 HbA1c (Bld) [Mass fraction] 5.7 % 3.8-5.6 [facility] Comment on above: Normal < 5.7 % Predi abetic 5.7 - 6.4 % Diabetic >or= 6.5 % Please note range changes. Absolute lymphocyte countOrd ered By: Isai Hernandez on 04-27-2023 Lymphocytes Auto (Unsp spec) [#/Vol] 1.46 10*3/uL 0.83-4.51 [facility] Basophil percentageOrdered B y: Isaisergio Bucko on 04-27-2023 Basophils/100 WBC (Bld) 0.6 % 0-1 [facility] Chloride [Moles/Vol] 109 mmol/L 98-107 [facility] Eosinophils/100 WBC (Bld) 1.7 % 0-5 [facility] Glucose [Mass/Vol] 95 mg/dL 74-106 [facility] Neutrophils (Bld) [#/Vol] 5.6 10*3/uL 2.0-7.7 [facility] Neutrophils/100 WBC (Bld) 69.0 % 47-70 [facility] Potassium [Moles/Vol] 4.3 mmol/L 3.5-5.1 [facility] Sodium [Moles/Vol] 141 mmol/L 136-145 [facility] WBC (Bld) [#/Vol] 8.1 10*3/uL 4.4-11.0 [facility] Blood erythrocytes count (nu mber/volume)Ordered By: Isai Hernandez on 04-27-2023 RBC (Bld) [#/Vol] 4.09 10*6/uL 4.6-6.2 [facility] Blood hemoglobin measurement (mass/volume)Ordered By: Isai Hernandez on 04-27-2023 Hemoglobin (Bld) [Mass/Vol] 12.5 g/dL 13.0-16.5 [facility] Blood lymphocytes/100 leukoc ytesOrdered By: Isai Hernandez on 04-27-2023 Lymphocytes/100 WBC (Bld) 18.0 % 19-41 [facility] Blood monocytes/100 leukocyt esOrdered By: Isaisergio Hernandez on 04-27-2023 Monocytes/100 WBC (Bld) 10.0 % 0-10 [facility] Blood platelet mean volumeOr dered By: Isai Hernandez on 04-27-2023 Platelet mean volume (Bld) [Entitic vol] 10.5 fL 6.2-12.0 [facility] Determination of erythrocyte mean corpuscular volume (MCV)Ordered By: Isai Hernandez on 04-27-2023 MCV (RBC) [Entitic vol] 100.5 fL 80-94 [facility] Hematocrit Auto (Bld) [Volum e fraction]Ordered By: Isai Hernandez on 04-27-2023 Hematocrit (Bld) [Volume fraction] 41.1 % 40-54 [facility] INR in Blood by Coagulation assayOrdered By: Isai Hernandez on 04-27-2023 INR Coag (Bld) [Relative time] 1.1 {INR} [facility] Laboratory - Chemistry and C hemistry - challengeOrdered By: Isai Hernandez on 04-27-2023 CO2 [Moles/Vol] 26.0 mmol/L 21.0-32.0 [facility] Urea nitrogen/Creatinine [Mass ratio] 32.5 mg/mg 10-20 [facility] Laboratory - Chemistry and C hemistry - challengeOrdered By: Sean Ayala on 04-27-2023 Magnesium [Mass/Vol] 2.3 mg/dL 1.6-2.6 [facility] Laboratory - CoagulationOrde red By: Isai Hernandez on 04-27-2023 aPTT Coag (Bld) [Time] 30.3 s 24.1-36.2 [facility] PT Coag (PPP) [Time] 14.5 s 11.7-14.9 [facility] Laboratory - Hematology and Cell countsOrdered By: Isai Hernandez on 04-27-2023 Erythrocyte distribution width (RBC) [Entitic vol] 48.2 fL 35.1-43.9 [facility] Erythrocyte distribution width (RBC) [Ratio] 13.0 % 11.6-14.6 [facility] Immature granulocytes/100 WBC (Bld) 0.700 % 0.0-0.9 [facility] Comment on above: IG% - Immature Granu locytes (promyelocytes, myelocytes and metamyelocytes) > 1% indicates that a LEFT SHIFT is Present. MCH (RBC) [Entitic mass] 30.6 pg 27.0-32.0 [facility] Nucleated RBC/100 WBC (Bld) [Ratio] 0 % 0-5 [facility] MCHC Auto (RBC) [Mass/Vol]Or dered By: Isai Hernandez on 04-27-2023 MCHC (RBC) [Mass/Vol] 30.4 g/dL 32-36 [facility] No Panel InformationOrdered By: Isai Hernandez on 04-27-2023 Estimated Creatinine Clearance Calc 66.20 ml/min [facility] Estimated GFR (MDRD) Amer 105 mL/min >60 [facility] Comment on above: GFR Calc Estimated GFR (MDRD) Non-Af Amer 87 mL/min >60 [facility] Comment on above: Non- GFR Calc Troponin I High Sensitivity 1505 pg/mL 3.0-78.0 [facility] Comment on above: Critical Result(s) C alled at: 12:53:20 04/27/2023 by: Ashleigh Quinteros. Results read back by same. Please Note: New Test Units and Gender Specific Reference Ranges. For more information see Policy Stat Procedure [place] High Sensitivity Troponin (TNIH) and attachments. Platelets bldOrdered By: Isaisergio Hernandez on 04-27-2023 Platelets (Bld) [#/Vol] 214 10*3/uL 150-450 [facility] Serum or plasma calcium kian urement (mass/volume)Ordered By: Isaisergio Hernandez on 04-27-2023 Calcium [Mass/Vol] 8.2 mg/dL 8.5-10.1 [facility] Serum or plasma creatinine m easurement (mass/volume)Ordered By: Isaisergio Hernandez on 04-27-2023 Creatinine [Mass/Vol] 0.89 mg/dL 0.70-1.30 [facility] Comment on above: The validity of the calculated GFR & GFRAA in patients over 70 years has not been determined. Clinical correlation is essential. Serum or plasma urea nitroge n measurement (mass/volume)Ordered By: Isaisergio Hernandez on 04-27-2023 Urea nitrogen [Mass/Vol] 29 mg/dL 7-18 [facility] Thin prep Papanicolaou smear with manual screeningOrdered By: Isaisergio Hernandez on 04-27-2023 Thin prep Papanicolaou smear with manual screening 6 5-15 [facility] Absolute lymphocyte countOrd ered By: Anna Koehler on 04-01-2023 Lymphocytes Auto (Unsp spec) [#/Vol] 0.77 10*3/uL 0.83-4.51 [facility] Basophil percentageOrdered B y: Anna Koehler on 04-01-2023 Basophils/100 WBC (Bld) 0.3 % 0-1 [facility] Chloride [Moles/Vol] 108 mmol/L 98-107 [facility] Eosinophils/100 WBC (Bld) 0.1 % 0-5 [facility] Glucose [Mass/Vol] 193 mg/dL 74-106 [facility] Comment on above: Fasting Glucose resu lt greater than or equal to 126 mg/dL suggests DIABETES MELLITUS per A.D.A. criteria. Neutrophils (Bld) [#/Vol] 12.3 10*3/uL 2.0-7.7 [facility] Neutrophils/100 WBC (Bld) 88.0 % 47-70 [facility] Potassium [Moles/Vol] 3.9 mmol/L 3.5-5.1 [facility] Sodium [Moles/Vol] 140 mmol/L 136-145 [facility] WBC (Bld) [#/Vol] 13.9 10*3/uL 4.4-11.0 [facility] Blood erythrocytes count (nu mber/volume)Ordered By: Anna Koehler on 04-01-2023 RBC (Bld) [#/Vol] 4.52 10*6/uL 4.6-6.2 [facility] Blood hemoglobin measurement (mass/volume)Ordered By: Anna Koehler on 04-01-2023 Hemoglobin (Bld) [Mass/Vol] 14.4 g/dL 13.0-16.5 [facility] Blood lymphocytes/100 leukoc ytesOrdered By: Anna Koehler on 04-01-2023 Lymphocytes/100 WBC (Bld) 5.5 % 19-41 [facility] Blood monocytes/100 leukocyt esOrdered By: Anna Koehler on 04-01-2023 Monocytes/100 WBC (Bld) 5.3 % 0-10 [facility] Blood platelet mean volumeOr dered By: Anna Koehler on 04-01-2023 Platelet mean volume (Bld) [Entitic vol] 9.7 fL 6.2-12.0 [facility] Determination of erythrocyte mean corpuscular volume (MCV)Ordered By: Anna Koehler on 04-01-2023 MCV (RBC) [Entitic vol] 99.3 fL 80-94 [facility] Hematocrit Auto (Bld) [Volum e fraction]Ordered By: Anna Koehler on 04-01-2023 Hematocrit (Bld) [Volume fraction] 44.9 % 40-54 [facility] Laboratory - Chemistry and C hemistry - challengeOrdered By: Anna Koehler on 04-01-2023 CO2 [Moles/Vol] 26.0 mmol/L 21.0-32.0 [facility] Urea nitrogen/Creatinine [Mass ratio] 24.3 mg/mg 10-20 [facility] Laboratory - Hematology and Cell countsOrdered By: Anna Koehler on 04-01-2023 Erythrocyte distribution width (RBC) [Entitic vol] 48.9 fL 35.1-43.9 [facility] Erythrocyte distribution width (RBC) [Ratio] 13.3 % 11.6-14.6 [facility] Immature granulocytes/100 WBC (Bld) 0.800 % 0.0-0.9 [facility] Comment on above: IG% - Immature Granu locytes (promyelocytes, myelocytes and metamyelocytes) > 1% indicates that a LEFT SHIFT is Present. MCH (RBC) [Entitic mass] 31.9 pg 27.0-32.0 [facility] Nucleated RBC/100 WBC (Bld) [Ratio] 0 % 0-5 [facility] MCHC Auto (RBC) [Mass/Vol]Or dered By: Anna Koehler on 04-01-2023 MCHC (RBC) [Mass/Vol] 32.1 g/dL 32-36 [facility] No Panel InformationOrdered By: Anna Koehler on 04-01-2023 Estimated Creatinine Clearance Calc 53.08 ml/min [facility] Estimated GFR (MDRD) Amer 82 mL/min >60 [facility] Comment on above: GFR Calc Estimated GFR (MDRD) Non-Af Amer 68 mL/min >60 [facility] Comment on above: Non- GFR Calc Platelets bldOrdered By: Adria Koehler on 04-01-2023 Platelets (Bld) [#/Vol] 158 10*3/uL 150-450 [facility] Serum or plasma calcium kian urement (mass/volume)Ordered By: Anna Koehler on 04-01-2023 Calcium [Mass/Vol] 8.8 mg/dL 8.5-10.1 [facility] Serum or plasma creatinine m easurement (mass/volume)Ordered By: Anna Koehler on 04-01-2023 Creatinine [Mass/Vol] 1.11 mg/dL 0.70-1.30 [facility] Comment on above: The validity of the calculated GFR & GFRAA in patients over 70 years has not been determined. Clinical correlation is essential. Serum or plasma urea nitroge n measurement (mass/volume)Ordered By: Anna Koehler on 04-01-2023 Urea nitrogen [Mass/Vol] 27 mg/dL 01-02 [facility] Thin prep Papanicolaou smear with manual screeningOrdered By: Anna Koehler on 04-01-2023 Thin prep Papanicolaou smear with manual screening 6 10-30 [facility] CNOVon 01-15-2023 CNOV Office Visit (CAUPDO ) EBEN CRUZ ([id number]) 1945 M Date Time Provider Department 01/15/23 2:30 PM URIEL PAREDES CAUPDO During your visit today, we recorded the following information about you: Pulse Blood pressure Weight Height 94/minute 120/70 92.6 kg 1.753 m Uriel Paredes DO 01/21/2023 8:54 PM Signed Referring Provider: Uriel Paredes DO Date: January 15, 2023 Chief Complaint: Established Patient Follow-Up (Dizziness, HTN, CAD) HISTORY OF PRESENT ILLNESS: Eben Cruz is a 77 year old male who presents for Established Patient Follow-Up (Dizziness, HTN, CAD). ALLERGIES Allergen Reactions Entresto [Sacubitri* Cough Throat sensation, cough PAST MEDICAL HISTORY: PAST MEDICAL HISTORY Diagnosis Date CAD (coronary artery disease) Cardiomyopathy ([facility]) Chronic systolic heart failure ([facility]) Essential hypertension HFrEF (heart failure with reduced ejection fraction) ([facility]) History of cardiac cath 2013 EF 45%, [...] Mixed hyperlipidemia Myocardial infarction with cardiac rehabilitation ([facility]) PAST SURGICAL HISTORY Procedure Laterality Date ARTHRP [...] mouth. Take every 2-3 days saw jack frt xtr-zinc [place] 80-15 mg cap Take [...] Sitting) Pulse 94 Ht 175.3 cm (5' 9) Wt 92.6 kg (204 lb 1.9 oz) BMI 30.14 kg/m? PHYSICAL EXAMINATION: BP 120/70 (BP Site: Left Arm, BP Position: Sitting) Pulse 94 Ht 175.3 cm (5' 9) Wt 92.6 kg (204 lb 1.9 oz) [...] side. Radial pulses are 2+ on the ri (more content not included)... Normal [facility] ECG COMPLETEon 01-15-2023 ECG COMPLETE Ventricular Rate : 9 4 BPM Atrial Rate : 94 BPM P-R Interval : 190 ms QRS Duration : 96 ms Q-T Interval : 344 ms QTC Calculation(Bazett) : 430 ms Calculated P [place] : 59 degrees Calculated R [place] : 8 degrees Calculated T [place] : -26 degrees SINUS RHYTHM WITH FREQUENT PREMATURE VENTRICULAR COMPLEXES LEFT VENTRICULAR HYPERTROPHY WITH REPOLARIZATION ABNORMALITY Confirmed by URIEL PAREDES DO ([id number]) on 01/27/2023 5:40:44 AM NAME : EBEN CRUZ PID : [id number] : 1945 Gender : Male Race : ORD : [id number] Procedure Date : Jan 15 2023 13:53:19 Edit Date : Jan 27 2023 05:40:46 Diagnosis: SINUS RHYTHM WITH FREQUENT PREMATURE VENTRICULAR COMPLEXES LEFT VENTRICULAR HYPERTROPHY WITH REPOLARIZATION ABNORMALITY Confirmed by URIEL PAREDES DO ([id number]) on 01/27/2023 5:40:44 AM Test Reason : Location : 606 : UPSHE Overread By : URILE PAREDES DO Edited By : URIEL PAREDES DO Referred By : URIEL PAREDES Acquired by : , [facility] LABORATORYOrdered By: SYSTEM SYSTEM on 08-25-2022 Albumin BCP dye [Mass/Vol] 3.3 G/dL Invalid Interpretation Code 3.4 - 4.8 G/dL AO ADM SS Albumin/Globulin [Mass ratio] 1.0 {ratio} Invalid Interpretation Code 1.1 - 2.5 ratio AO ADM SS ALP [Catalytic activity/Vol] 106 U/L Invalid Interpretation Code 40 - 135 U/L AO ADM SS ALT With P-5'-P [Catalytic activity/Vol] 28 U/L Invalid Interpretation Code 16 - 63 U/L AO ADM SS AST With P-5'-P [Catalytic activity/Vol] 25 U/L Invalid Interpretation Code 10 - 40 U/L AO ADM SS Bilirubin [Mass/Vol] 0.6 mg/dL Invalid Interpretation Code 0.2 - 1.0 mg/dL AO ADM SS Calcium [Mass/Vol] 8.4 mg/dL Invalid Interpretation Code 8.4 - 10.2 mg/dL AO ADM SS Chloride [Moles/Vol] 105 mmol/L Invalid Interpretation Code 98 - 107 mmol/L AO ADM SS CO2 [Moles/Vol] 31 mmol/L Invalid Interpretation Code 23 - 31 mmol/L AO ADM SS Creatinine [Mass/Vol] 0.95 mg/dL Invalid Interpretation Code 0.70 - 1.30 mg/dL AO ADM SS Electrolyte Balance 5.0 mEq/L Invalid Interpretation Code 4.0 - 15.0 mEq/L AO ADM SS GFR 93 ml/min/1.73sqm Invalid Interpretation Code AO Chemistry S GFR Non- 76 ml/min/1.73sqm Invalid Interpretation Code AO Chemistry S Globulin 3.4 G/dL Invalid Interpretation Code AO ADM SS Glucose [Mass/Vol] 89 mg/dL Invalid Interpretation Code 83 - 110 mg/dL AO ADM SS Potassium [Moles/Vol] 4.2 mmol/L Invalid Interpretation Code 3.5 - 5.1 mmol/L AO ADM SS Protein [Mass/Vol] 6.7 G/dL Invalid Interpretation Code 6.4 - 8.2 G/dL AO ADM SS Sodium [Moles/Vol] 141 mmol/L Invalid Interpretation Code 136 - 145 mmol/L AO ADM SS Urea nitrogen [Mass/Vol] 23 mg/dL Invalid Interpretation Code 7 - 18 mg/dL AO ADM SS Urea nitrogen/Creatinine [Mass ratio] 24 ratio Invalid Interpretation Code 7 - 27 ratio AO ADM SS LABORATORYOrdered By: Gina Davis on 08-25-2022 Basophil, Absolute 0.0 103/mcL Invalid Interpretation Code 0.0 - 0.2 10^3/mcL AO Workflow SS Basophils/100 WBC (Bld) 0.4 % Invalid Interpretation Code 0.0 - 2.5 % AO Workflow SS Eosinophil, Absolute 0.1 103/mcL Invalid Interpretation Code 0.0 - 0.4 10^3/mcL AO Workflow SS Eosinophils/100 WBC (Bld) 1.8 % Invalid Interpretation Code 0.0 - 7.0 % AO Workflow SS Erythrocyte distribution width (RBC) [Ratio] 13.3 % Invalid Interpretation Code 11.5 - 14.5 % AO Workflow SS Hematocrit (Bld) [Volume fraction] 44.2 % Invalid Interpretation Code 42.0 - 52.0 % AO Workflow SS Hemoglobin (Bld) [Mass/Vol] 14.7 G/dL Invalid Interpretation Code 14.0 - 18.0 G/dL AO Workflow SS Lymphocyte, Absolute 1.0 103/mcL Invalid Interpretation Code 0.8 - 3.9 10^3/mcL AO Workflow SS Lymphocytes/100 WBC (Bld) 12.6 % Invalid Interpretation Code 10.0 - 50.0 % AO Workflow SS MCH (RBC) [Entitic mass] 30.7 pg Invalid Interpretation Code 27.0 - 31.2 pg AO Workflow SS MCHC 33.3 G/dL Invalid Interpretation Code 31.8 - 35.4 G/dL AO Workflow SS MCV (RBC) [Entitic vol] 92.3 fL Invalid Interpretation Code 80.0 - 94.0 fL AO Workflow SS Monocyte, Absolute 0.7 103/mcL Invalid Interpretation Code 0.2 - 1.0 10^3/mcL AO Workflow SS Monocytes/100 WBC (Bld) 9.4 % Invalid Interpretation Code 1.7 - 13.0 % AO Workflow SS Neutrophil, Absolute 5.7 103/mcL Invalid Interpretation Code 2.9 - 6.2 10^3/mcL AO Workflow SS Neutrophils/100 WBC (Bld) 75.8 % Invalid Interpretation Code 37.0 - 80.0 % AO Workflow SS Platelet mean volume (Bld) [Entitic vol] 9.2 fL Invalid Interpretation Code 7.4 - 10.4 fL AO Workflow SS Platelets (Bld) [#/Vol] 57 103/mcL Invalid Interpretation Code 130 - 400 10^3/mcL AO Workflow SS RBC (Bld) [#/Vol] 4.79 106/mcL Invalid Interpretation Code 4.04 - 6.13 10^6/mcL AO Workflow SS WBC (Bld) [#/Vol] 7.6 103/mcL Invalid Interpretation Code 4.6 - 10.8 10^3/mcL AO Workflow SS LABORATORYOrdered By: Benny Collado on 08-25-2022 Cholesterol [Mass/Vol] 137 mg/dL Invalid Interpretation Code 0 - 200 mg/dL AO ADM SS Cholesterol in HDL [Mass/Vol] 42 mg/dL Invalid Interpretation Code 40 - 60 mg/dL AO ADM SS Cholesterol in LDL [Mass/Vol] 78 mg/dL Invalid Interpretation Code 0 - 130 mg/dL AO ADM SS Triglyceride [Mass/Vol] 84 mg/dL Invalid Interpretation Code 0 - 150 mg/dL AO ADM SS CNOVon 03-24-2022 CNOV Office Visit (CARDCONREL ) EBEN CRUZ ([id number]) 1945 M Date Time Provider Department 03/24/22 7:00 AM URIEL PAREDES During your visit today, we recorded the following information about you: Pulse Blood pressure Weight Height 71/minute 120/68 95.3 kg 1.753 m Uriel Feli DO [place] 03/25/2022 5:01 AM Signed Today's EKG is sinus referring Provider: No ref. provider found Date: March 24, 2022 Chief Complaint: Follow Up HISTORY OF PRESENT ILLNESS: Eben Cruz is a 77 year old male who presents for Follow Up. ALLERGIES Allergen Reactions Entresto [Sacubitri* Cough Throat sensation, cough PAST MEDICAL HISTORY: PAST MEDICAL HISTORY Diagnosis Date CAD (coronary artery disease) Cardiomyopathy ([facility]) Essential hypertension HFrEF (heart failure with reduced ejection fraction) ([facility]) History of cardiac cath 2013 EF 45%, and 50% cx, 30% LAD History of echocardiography 04/2019 EF 35-40%. Mod LV cavity enlargement, mod left atrial and mild right atrial enlargement, mild MR, mild TR, normal right-sided systolioc pressure. History of stress test 2018 39 large inf scar Mixed hyperlipidemia Myocardial infarction with cardiac rehabilitation ([facility]) PAST SURGICAL HISTORY Procedure Laterality Date ARTHRP [...] anterioe descending. INGUINAL HERNIA REPAIR HX Left 1989 SHOULDER SURGERY HX 2013, 2014 STRESS TEST [...] 1 capsule by mouth three times daily. triamterene-hydroCHLOROthia zide (MAXZIDE-25MG) 37.5-25 mg per tablet Take 1 [...] Sitting) Pulse 71 Ht 175.3 cm (5' 9) Wt 95.3 kg (210 lb) BMI 31.01 kg/m? PHYSICAL EXAMINATION: BP 120/68 (BP Position: Sitting) Pulse 71 Ht 175.3 cm (5' 9) Wt 95.3 kg (210 lb) BMI 31.01 [...] side. Dorsalis pedis pulses are 2+ on t (more content not included)... Normal [facility] ECG COMPLETEon 03-24-2022 ECG COMPLETE Ventricular Rate : 7 1 BPM Atrial Rate : 71 BPM P-R Interval : 216 ms QRS Duration : 92 ms Q-T Interval : 384 ms QTC Calculation(Bazett) : 417 ms Calculated P [place] : 63 degrees Calculated R [place] : 26 degrees Calculated T [place] : 36 degrees SINUS RHYTHM WITH 1ST DEGREE AV BLOCK WITH OCCASIONAL PREMATURE VENTRICULAR COMPLEXES Confirmed by URIEL PAREDES DO ([id number]) on 03/26/2022 6:22:54 PM NAME : EBEN CRUZ PID : [id number] : 1945 Gender : Male Race : ORD : [id number] Procedure Date : Mar 24 2022 07:08:06 Edit Date : Mar 26 2022 18:22:57 Diagnosis: SINUS RHYTHM WITH 1ST DEGREE AV BLOCK WITH OCCASIONAL PREMATURE VENTRICULAR COMPLEXES Confirmed by URIEL PAREDES DO ([id number]) on 03/26/2022 6:22:54 PM Test Reason : Location : [address] [place] [address] Overread By : URIEL PAREDES DO Edited By : URIEL PAREDES DO Referred By : URIEL PAREDES Acquired by : [id number], Normal [facility] CDLECHOon 04-29-2019 CDLECHO INTERPRETING PHYSICI AN: Nguyen Marion MD ATTENDING PHYSICIAN: Uriel Paredes DO ORDERING/REFERRING PHYSICIAN: Uriel Paredes DO DATE OF STUDY: 04/29/2019 TECH #: 12 MMC: MOBILE: Weight: 212 lbs. oz. Height: 71 ins. BP: 140/61 mmHg HR: DIAGNOSIS/REASON FOR STUDY: Cardiomyopathy, dyspnea on exertion. Outpatient study. Complete Echo (TTE) Limited Echo Transesophageal (HUSSAIN) Definity ACTUAL VALUES ADULTS CHILDREN 1. Aortic Valve Normal: Abnormal: Aortic Valve Systolic Opening 1.5 - 2.5 cm. Aortic Root Dimension 3.7 2.0 - 4.0 cm. B. Left Atrial Diameter 4.2 < 4.0 cm. C. Left Ventricle End Diastolic Diameter 6.1 < 5.5 cm. End Systolic Diameter 5.0 < 3.5 cm. D. Right Ventricle End Diastolic Diameter < 2.5 cm. E. Septal Wall Thickness 0.89 End Diastole < 1.3 cm. Systole F. Posterior Wall Thickness 0.96 < 1.3 cm. End Diastole End Systole The left ventricular cavity size is moderately enlarged. Overall global systolic function is moderately depressed with estimated ejection fraction of 35% to 40%. Septal motion is paradoxical. Remaining cedillo are diffusely hypokinetic, consistent [facility] PATIENT NAME: EBEN CRUZ [address] [place] MEDICAL REC #: [id number] [place] [address] ADMIT DATE: DISCHARGE DATE: ATTENDING PHY: Uriel Paredes DO ECHOCARDIOGRAM REPORT with dilated cardiomyopathy. Left ventricular wall thickness is within normal limits. Moderate degree of left atrial enlargement is noted. Mild degree of right atrial enlargement is noted. Right ventricular cavity size and systolic function is normal. Doppler assessment of diastolic function of the left ventricle reveals stage 1 diastolic dysfunction. The aortic valve is sclerotic; no stenosis or regurgitation is noted. The mitral valve is sclerotic; mild mitral regurgitation is seen. The tricuspid valve is structurally normal; mild tricuspid regurgitation is noted. Continuous wave Doppler derived TR velocity is 2.4 m/sec, indicating normal right-sided systolic pressures. The pulmonic valve is structurally normal; no stenosis or regurgitation is seen. There are no intracardiac masses or thrombi identified. No pericardial effusion is seen. The pericardium itself is normal. The aortic root is of normal diameter. The aortic arch is not well visualized. FINAL IMPRESSION: 1. Moderate left ventricular cavity enlargement with moderate reduction in global systolic function, ejection fraction of 35% to 40%. Global left ventricular dysfunction consistent with dilated cardiomyopathy. 2. Moderate left atrial and mild right atrial enlargement. 3. Mild mitral regurgitation. 4. Mild tricuspid regurgitation with normal right-sided systolic pressures. MD TRUE [id number] SSI File#: [id number] CC: Uriel Paredes DO Verified/Reviewed by [id number] [facility] PATIENT NAME: EBEN CRUZ [facility] [address] [place] MEDICAL REC #: [id number] [place] [address] ADMIT DATE: DISCHARGE DATE: ATTENDING PHY: Uriel Paredes DO ECHOCARDIOGRAM REPORT Normal [facility] ECHOCARDIOGRAM REPORT Normal [facility] Vital Signs Date Time Vital Sign Value Performing Clinician Facility 02-27-2025 14:59-0400 Body height 172.72 cm No Primary Care Physician [facility] 02-27-2025 14:59-0400 Body mass index (BMI) [Ratio] 30.7 kg/m2 No Primary Care Physician [facility] 02-27-2025 14:59-0400 Body weight 91.62 kg No Primary Care Physician [facility] 02-27-2025 14:59-0400 Diastolic blood pressure 65 mm[Hg] No Primary Care Physician [facility] 02-27-2025 14:59-0400 Heart rate 49 /min No Primary Care Physician [facility] 02-27-2025 14:59-0400 Respiratory rate 18 /min No Primary Care Physician [facility] 02-27-2025 14:59-0400 Systolic blood pressure 106 mm[Hg] No Primary Care Physician [facility] 02-10-2025 09:51-0400 Body height 172.72 cm No Primary Care Physician [facility] 02-10-2025 09:51-0400 Body mass index (BMI) [Ratio] 30.6 kg/m2 No Primary Care Physician [facility] 02-10-2025 09:51-0400 Body temperature 96.4 [degF] No Primary Care Physician [facility] 02-10-2025 09:51-0400 Body weight 91.34 kg No Primary Care Physician [facility] 02-10-2025 09:51-0400 Diastolic blood pressure 72 mm[Hg] No Primary Care Physician [facility] 02-10-2025 09:51-0400 Heart rate 51 /min No Primary Care Physician [facility] 02-10-2025 09:51-0400 Respiratory rate 16 /min No Primary Care Physician [facility] 02-10-2025 09:51-0400 SaO2% (BldA) [Mass fraction] 100 % No Primary Care Physician [facility] 02-10-2025 09:51-0400 Systolic blood pressure 138 mm[Hg] No Primary Care Physician [facility] 11-05-2024 08:58-0400 Body height 172.72 cm No Primary Care Physician [facility] 11-05-2024 08:51-0400 Body mass index (BMI) [Ratio] 29.9 kg/m2 No Primary Care Physician [facility] 11-05-2024 08:51-0400 Body weight 89.35 kg No Primary Care Physician [facility] 11-05-2024 08:51-0400 Diastolic blood pressure 68 mm[Hg] No Primary Care Physician [facility] 11-05-2024 08:51-0400 Heart rate 40 /min No Primary Care Physician [facility] 11-05-2024 08:51-0400 Respiratory rate 16 /min No Primary Care Physician [facility] 11-05-2024 08:51-0400 SaO2% (BldA) [Mass fraction] 93 % No Primary Care Physician [facility] 11-05-2024 08:51-0400 Systolic blood pressure 114 mm[Hg] No Primary Care Physician [facility] 08-18-2024 12:29-0500 Body mass index (BMI) [Ratio] 28.94 kg/m2 Marissa Sorto APRN.[employer] FIRST OFFICER Work Phone: [facility] 08-18-2024 12:29-0500 Body temperature 97.81 [degF] Marissa Sorto APRN.CNP Work Phone: [facility] 08-18-2024 12:29-0500 Body weight 88.91 kg Marissa Sorto APRN.CNP Work Phone: [facility] 08-18-2024 12:29-0500 Diastolic blood pressure 64 mm[Hg] Marissa Sorto APRN.[employer] FIRST OFFICER Work Phone: [facility] 08-18-2024 12:29-0500 Heart rate 56 /min Marissa Sorto APRN.[employer] OFFICER Work Phone: [facility] 08-18-2024 12:29-0500 Respiratory rate 18 /min Marissa Sorto APRN.[employer] OFFICER Work Phone: [facility] 08-18-2024 12:29-0500 SaO2% (BldA) [Mass fraction] 95 % Marissa Sorto APRN.[employer] OFFICER Work Phone: [facility] 08-18-2024 12:29-0500 Systolic blood pressure 109 mm[Hg] Marissa Sorto PAINT TECHNICIAN.A[employer]PL[employer] FIRST OFFICER Work Phone: [facility] 08-18-2024 10:11-0500 Body height 172.[address] Mark Go DO Work Phone: [facility] 08-18-2024 09:55-0500 Body mass index (BMI) [Ratio] 29.7 kg/m2 Dr. Mark Go DO Work Phone: [facility] 08-18-2024 09:55-0500 Body temperature 97.9 [degF] Dr. Mark Go DO Work Phone: [facility] 08-18-2024 09:55-0500 Body weight 88.[address] Mark Go DO Work Phone: [facility] 08-18-2024 09:55-0500 Diastolic blood pressure 58 mm[Hg] Dr. Mark Go DO Work Phone: [facility] 08-18-2024 09:55-0500 Heart rate 53 /min Dr. Mark Go DO Work Phone: [facility] 08-18-2024 09:55-0500 Respiratory rate 16 /min Dr. Mark Go DO Work Phone: [facility] 08-18-2024 09:55-0500 SaO2% (BldA) [Mass fraction] 93 % Dr. Mark Go DO Work Phone: [facility] 08-18-2024 09:55-0500 Systolic blood pressure 107 mm[Hg] Dr. Mark Go DO Work Phone: 0(619)554-703226 [place] [address] 06-27-2024 11:42-0500 Heart rate 97 /min Dr. Mark Go DO Work Phone: 9(873)658-463426 [place] [address] 06-27-2024 11:12-0500 Body mass index (BMI) [Ratio] 29 kg/m2 Dr. Mark Go DO Work Phone: 2(541)484-734126 [place] [address] 06-27-2024 11:12-0500 Body weight 86.[address] Mark Go DO Work Phone: 6(354)836-241920 [place] [address] 06-27-2024 11:12-0500 Diastolic blood pressure 67 mm[Hg] Dr. Mark Go DO Work Phone: 8(317)749-517820 [place] [address] 06-27-2024 11:12-0500 Respiratory rate 16 /min Dr. Mark Go DO Work Phone: 3(031)565-759520 [place] [address] 06-27-2024 11:12-0500 SaO2% (BldA) [Mass fraction] 93 % Dr. Mark Go DO Work Phone: 3(585)206-725720 [place] [address] 06-27-2024 11:12-0500 Systolic blood pressure 117 mm[Hg] Dr. Mark Go DO Work Phone: 4(325)091-599726 [place] [address] 06-25-2024 12:44-0500 Body temperature 97.8 [degF] Dr. Mark Go DO Work Phone: 2(506)696-425826 [place] [address] 06-25-2024 12:44-0500 Diastolic blood pressure 68 mm[Hg] Dr. Mark Go DO Work Phone: 7(531)759-886426 [place] [address] 06-25-2024 12:44-0500 Heart rate 68 /min Dr. Mark Go DO Work Phone: 0(388)510-067326 [place] [address] 06-25-2024 12:44-0500 Inhaled oxygen flow rate 4 L/min Dr. Mark Go DO Work Phone: 4(529)375-906626 [place] [address] 06-25-2024 12:44-0500 Respiratory rate 18 /min Dr. Mark Go DO Work Phone: [facility] 06-25-2024 12:44-0500 SaO2% (BldA) [Mass fraction] 100 % Dr. Mark Go DO Work Phone: [facility] 06-25-2024 12:44-0500 Systolic blood pressure 98 mm[Hg] Dr. Mark Go DO Work Phone: [facility] 06-25-2024 04:42-0500 Body mass index (BMI) [Ratio] 29.2 kg/m2 Dr. Mark Go DO Work Phone: [facility] 06-25-2024 04:42-0500 Body weight 87.[address] Mark Go DO Work Phone: [facility] 10-20-2023 11:30-0400 Body temperature 97.2 [degF] Dr. Iwona Stewart Work Phone: [facility] 10-20-2023 11:30-0400 Diastolic blood pressure 75 mm[Hg] Dr. Iwona Stewart Work Phone: [facility] 10-20-2023 11:30-0400 Heart rate 60 /min Dr. Iwona Stewart Work Phone: [facility] 10-20-2023 11:30-0400 Respiratory rate 16 /min Dr. Iwona Stewart Work Phone: [facility] 10-20-2023 11:30-0400 SaO2% (BldA) [Mass fraction] 99 % Dr. Iwona Stewart Work Phone: [facility] 10-20-2023 11:30-0400 Systolic blood pressure 124 mm[Hg] Dr. Iwona Stewart Work Phone: [facility] 10-19-2023 05:22-0400 Body mass index (BMI) [Ratio] 29.3 kg/m2 Dr. Iwona Stewart Work Phone: [facility] 10-19-2023 05:22-0400 Body weight 90.[address] Iwona Stewart Work Phone: [facility] 10-17-2023 15:20-0400 Body height 175.[address] Iwona Stewart Work Phone: [facility] 10-05-2023 15:45-0400 Body temperature 98.29 [degF] Amos Nichole MD Work Phone: [facility] 10-05-2023 15:45-0400 Diastolic blood pressure 60 mm[Hg] Amos Nichole MD Work Phone: [facility] 10-05-2023 15:45-0400 Heart rate 62 /min Amos Nichole MD Work Phone: [facility] 10-05-2023 15:45-0400 SaO2% (BldA) [Mass fraction] 99 % Amos Nichole MD Work Phone: [facility] 10-05-2023 15:45-0400 Systolic blood pressure 107 mm[Hg] Amos Nichole MD Work Phone: [facility] 10-05-2023 10:45-0400 Respiratory rate 23 /min Amos Nichole MD Work Phone: [facility] 10-05-2023 06:09-0400 Body mass index (BMI) [Ratio] 27.26 kg/m2 Amos Nichole MD Work Phone: [facility] 10-05-2023 06:09-0400 Body weight 86.18 kg Amos Nichole MD Work Phone: [facility] 09-30-2023 15:04-0400 Body height 177.8 cm Amos Nichole MD Work Phone: [facility] 09-25-2023 11:29-0400 Body temperature 98 [degF] Dr. Iwona Stewart Work Phone: [facility] 09-25-2023 11:29-0400 Diastolic blood pressure 80 mm[Hg] Dr. Iwona Stewart Work Phone: [facility] 09-25-2023 11:29-0400 Heart rate 78 /min Dr. Iwona Stewart Work Phone: [facility] 09-25-2023 11:29-0400 Respiratory rate 16 /min Dr. Iwona Stewart Work Phone: [facility] 09-25-2023 11:29-0400 SaO2% (BldA) [Mass fraction] 98 % Dr. Iwona Stewart Work Phone: [facility] 09-25-2023 11:29-0400 Systolic blood pressure 102 mm[Hg] Dr. Iwona Stewart Work Phone: [facility] 09-25-2023 10:29-0400 Inhaled oxygen flow rate 4 L/min Dr. Iwona Stewart Work Phone: [facility] 09-24-2023 11:07-0400 Inhaled oxygen concentration 45 % Dr. Iwona Stewart Work Phone: [facility] 09-23-2023 11:32-0400 Body height 175.[address] Iwona Stewart Work Phone: [facility] 09-23-2023 11:32-0400 Body mass index (BMI) [Ratio] 31.9 kg/m2 Dr. Iwona Stewart Work Phone: [facility] 09-23-2023 11:32-0400 Body weight 98.[address] Iwona Stewart Work Phone: [facility] 09-23-2023 10:30-0400 Diastolic Blood Pressure Non-Invasive 77 mm[Hg] DR GRISELDA AGUILERA DO [facility] 09-23-2023 10:30-0400 Heart rate 101 /min DR GRISELDA AGUILERA DO [facility] 09-23-2023 10:30-0400 Respiratory rate 24 /min DR GRISELDA AGUILERA DO [facility] 09-23-2023 10:30-0400 Systolic Blood Pressure Non-Invasive 124 mm[Hg] DR GRISELDA AGUILERA DO [facility] 09-23-2023 10:23-[address] GRISELDA AGUILERA DO [facility] 09-23-2023 10:23-0400 Body temperature 98.6 [degF] DR GRISELDA AGUILERA DO [facility] 09-23-2023 10:23-0400 Body weight 97.[address] GRISELDA AGUILERA DO [facility] 09-23-2023 10:23-0400 Diastolic Blood Pressure Non-Invasive 59 mm[Hg] DR GRISELDA AGUILERA DO [facility] 09-23-2023 10:23-0400 Heart rate 100 /min DR GRISELDA AGUILERA DO [facility] 09-23-2023 10:23-0400 Reason For Taking VItal Signs DR GRISELDA AGUILERA DO [facility] 09-23-2023 10:23-0400 Respiratory rate 16 /min DR GRISELDA AGUILERA DO [facility] 09-23-2023 10:23-0400 Systolic Blood Pressure Non-Invasive 120 mm[Hg] DR GRISELDA AGUILERA DO [facility] 09-23-2023 09:24-0400 Heart rate 107 /min ELIZA STUBBS APRN-AIRPLANE FIRST OFFICER [facility] 09-23-2023 08:56-0400 Heart rate 112 /min ELIZA STUBBS APRN-A[employer]PL[employer] FIRST OFFICER [facility] 09-23-2023 08:32-0400 Body temperature 97.88 [degF] ELIZA KAPPER PAINT TECHNICIAN-AIRPLANE FIRST OFFICER [facility] 09-23-2023 08:32-0400 Diastolic Blood Pressure Non-Invasive 72 mm[Hg] ELIZA KAPPER PAINT TECHNICIAN-AIRPLANE FIRST OFFICER [facility] 09-23-2023 08:32-0400 Heart rate 90 /min ELIZA KAPPER PAINT TECHNICIAN-AIRPLANE FIRST OFFICER [facility] 09-23-2023 08:32-0400 Systolic Blood Pressure Non-Invasive 122 mm[Hg] ELIZA KAPPER PAINT TECHNICIAN-AIRPLANE FIRST OFFICER [facility] 09-23-2023 03:39-0400 Respiratory rate 20 /min ELIZA KAPPER PAINT TECHNICIAN-A[employer]PLANE FIRST OFFICER [address] [place] [address] 09-23-2023 03:27-0400 Respiratory rate 20 /min ELIZA KAPPER PAINT TECHNICIAN-A[employer]PLANE FIRST OFFICER [facility] 09-23-2023 03:13-0400 Body temperature 98.24 [degF] ELIZA KAPPER PAINT TECHNICIAN-AIRPLANE FIRST OFFICER [facility] 09-23-2023 03:13-0400 Diastolic Blood Pressure Non-Invasive 68 mm[Hg] ELIZA KAPPER PAINT TECHNICIAN-AIRPLANE FIRST OFFICER [facility] 09-23-2023 03:13-0400 Respiratory rate 20 /min ELIZA KAPPER PAINT TECHNICIAN-AIRPLANE FIRST OFFICER [facility] 09-23-2023 03:13-0400 Systolic Blood Pressure Non-Invasive 112 mm[Hg] ELIZA KAPPER PAINT TECHNICIAN-AIRPLANE FIRST OFFICER [facility] 09-22-2023 19:36-0400 Body temperature 98.42 [degF] ELIZA KAPPER PAINT TECHNICIAN-AIRPLANE FIRST OFFICER [facility] 09-22-2023 19:36-0400 Diastolic Blood Pressure Non-Invasive 74 mm[Hg] ELIZA ROGEER PAINT TECHNICIAN-AIRPLANE FIRST OFFICER [facility] 09-22-2023 19:36-0400 Reason For Taking VItal Signs ELIZA EVELYNE PAINT TECHNICIAN-AIRPLANE FIRST OFFICER [facility] 09-22-2023 19:36-0400 Systolic Blood Pressure Non-Invasive 113 mm[Hg] ELIZABea GUANER PAINT TECHNICIAN-AIRPLANE FIRST OFFICER [facility] 09-22-2023 06:29-0400 Heart rate 96 /min ELIZA ROGEER PAINT TECHNICIAN-AIRPLANE FIRST OFFICER [facility] 09-22-2023 06:29-0400 Reason For Taking VItal Signs ELIZA ROGEER PAINT TECHNICIAN-AIRPLANE FIRST OFFICER [facility] 09-21-2023 20:47-0400 Reason For Taking VItal Signs ELIZA ROGEER PAINT TECHNICIAN-AIRPLANE FIRST OFFICER [facility] 09-21-2023 16:27-0400 Body weight 32.98 kg/m2 ELIZA KAPPER PAINT TECHNICIAN-AIRPLANE FIRST OFFICER [facility] 09-21-2023 14:27-0400 Heart rate 105 /min ELIZA ROGEER PAINT TECHNICIAN-AIRPLANE FIRST OFFICER [facility] 09-21-2023 14:04-0400 Body height 170 cm ELIZA ROGEER PAINT TECHNICIAN-AIRPLANE FIRST OFFICER [facility] 09-21-2023 14:04-0400 Body weight 95.3 kg ELIZA KAPPER PAINT TECHNICIAN-AIRPLANE FIRST OFFICER [facility] 09-21-2023 14:04-0400 Body weight 32.98 kg/m2 ELIZA KAPPER PAINT TECHNICIAN-AIRPLANE FIRST OFFICER [facility] 09-21-2023 12:44-0400 Heart rate 65 /min DR IWONA SCHREIBER MD [facility] 09-21-2023 11:13-0400 Body temperature 98.24 [degF] DR IWONA SCHREIBER MD [facility] 09-21-2023 11:13-0400 Diastolic Blood Pressure Non-Invasive 56 mm[Hg] DR IWONA SCHREIBER MD [facility] 09-21-2023 11:13-0400 Heart rate 101 /min DR IWONA SCHREIBER MD [facility] 09-21-2023 11:13-0400 Reason For Taking VItal Signs DR IWONA SCHREIBER MD [facility] 09-21-2023 11:13-0400 Respiratory rate 18 /min DR IWONA SCHREIBER MD [facility] 09-21-2023 11:13-0400 Systolic Blood Pressure Non-Invasive 119 mm[Hg] DR IWONA SCHREIBER MD [facility] 09-21-2023 10:17-0400 Heart rate 95 /min DR IWONA SCHREIBER MD [facility] 09-21-2023 07:30-0400 Heart rate 106 /min DR IWONA SCHREIBER MD [facility] 09-21-2023 06:51-0400 Body temperature 98.24 [degF] DR IWONA SCHREIBER MD [facility] 09-21-2023 06:51-0400 Diastolic Blood Pressure Non-Invasive 69 mm[Hg] DR IWONA SCHREIBER MD [facility] 09-21-2023 06:51-0400 Reason For Taking VItal Signs DR IWONA SCHREIBER MD [facility] 09-21-2023 06:51-0400 Respiratory rate 18 /min DR IWONA SCHREIBER MD [facility] 09-21-2023 06:51-0400 Systolic Blood Pressure Non-Invasive 118 mm[Hg] DR IWONA SCHREIBER MD [facility] 09-21-2023 03:46-0400 Body temperature 98.42 [degF] DR IWONA SCHREIBER MD [facility] 09-21-2023 03:46-0400 Diastolic Blood Pressure Non-Invasive 74 mm[Hg] DR IWONA SCHREIBER MD [facility] 09-21-2023 03:46-0400 Reason For Taking VItal Signs DR IWONA SCHREIBER MD [facility] 09-21-2023 03:46-0400 Respiratory rate 18 /min DR IWONA SCHREIBER MD [facility] 09-21-2023 03:46-0400 Systolic Blood Pressure Non-Invasive 114 mm[Hg] DR IWONA SCHREIBER MD [facility] 09-20-2023 23:37-0400 Heart rate 116 /min DR IWONA SCHREIBER MD [facility] 09-20-2023 19:03-0400 Heart rate 127 /min DR IWONA SCHREIBER MD [facility] 09-18-2023 17:05-0400 Body height [address] IWONA SCHREIBER MD [facility] 09-18-2023 17:05-0400 Body weight 95.[address] IWONA SCHREIBER MD [facility] 09-18-2023 17:05-0400 Body weight 32.98 kg/m2 DR IWONA SCHREIBER MD [facility] 09-18-2023 16:15-0400 Mean blood pressure 61 mm[Hg] DR IWONA SCHREIBER MD [facility] 09-18-2023 15:45-0400 Mean blood pressure 70 mm[Hg] DR IWONA SCHREIBER MD [facility] 09-18-2023 15:15-0400 Mean blood pressure 78 mm[Hg] DR IWONA SCHREIBER MD [facility] 09-18-2023 13:10-0400 Body temperature 96.08 [degF] DR IWONA SCHREIBER MD [facility] 09-18-2023 13:05-0400 Respiratory Rate - Anes 19 br/min DR IWONA SCHREIBER MD [facility] 09-18-2023 13:00-0400 Respiratory Rate - Anes 18 br/min DR IWONA SCHREIBER MD [facility] 09-18-2023 12:55-0400 Respiratory Rate - Anes 19 br/min DR IWONA SCHREIBER MD [facility] 09-18-2023 12:45-0400 Body temperature 96.8 [degF] DR IWONA SCHREIBER MD [facility] 09-18-2023 12:30-0400 Body temperature 96.8 [degF] DR IWONA SCHREIBER MD [facility] 09-18-2023 12:15-0400 Body temperature 96.8 [degF] DR IWONA SCHREIBER MD [facility] 09-18-2023 09:13-0400 Body height [address] IWONA SCHREIBER MD [facility] 09-18-2023 09:13-0400 Body temperature 97.88 [degF] DR IWONA SCHREIBER MD [facility] 09-18-2023 09:13-0400 Body weight 95.[address] IWONA SCHREIBER MD [facility] 09-18-2023 09:13-0400 Heart rate 74 /min DR IWONA SCHREIBER MD [facility] 07-23-2023 10:00-[address] IWONA SCHREIBER MD [facility] 07-23-2023 10:00-[address] IWONA Edmond [facility] 07-23-2023 10:00-0500 Body height 175.[address] IWONA SCHREIBER MD [facility] 07-23-2023 10:00-0500 Body weight 92.[address] IWONA SCHREIBER MD [facility] 07-23-2023 10:00-0500 Body weight 30.1 kg/m2 DR IWONA SCHREIBER MD [facility] 07-23-2023 10:00-0500 Diastolic Blood Pressure Non-Invasive 67 mm[Hg] DR IWONA SCHREIBER MD [facility] 07-23-2023 10:00-0500 Heart rate 58 /min DR IWONA SCHREIBER MD [facility] 07-23-2023 10:00-0500 Respiratory rate 18 /min DR IWONA SCHREIBER MD [facility] 07-23-2023 10:00-0500 Systolic Blood Pressure Non-Invasive 102 mm[Hg] DR IWONA SCHREIBER MD [facility] 06-19-2023 10:27-0500 Body height 175.[address] Iwona Stewart Work Phone: [facility] 06-19-2023 10:25-0500 Body mass index (BMI) [Ratio] 30.7 kg/m2 Dr. Iwona Stewart Work Phone: [facility] 06-19-2023 10:25-0500 Body weight 94.[address] Iwona Stewart Work Phone: [facility] 06-19-2023 10:25-0500 Diastolic blood pressure 71 mm[Hg] Dr. Iwona Stewart Work Phone: [facility] 06-19-2023 10:25-0500 Heart rate 90 /min Dr. Iwona Stewart Work Phone: [facility] 06-19-2023 10:25-0500 Respiratory rate 18 /min Dr. Iwona Stewart Work Phone: [facility] 06-19-2023 10:25-0500 SaO2% (BldA) [Mass fraction] 97 % Dr. Iwona Stewart Work Phone: [facility] 06-19-2023 10:25-0500 Systolic blood pressure 124 mm[Hg] Dr. Iwona Stewart Work Phone: [facility] 05-14-2023 13:32-0500 Body height 175.[address] Iwona Stewart Work Phone: [facility] 05-14-2023 13:27-0500 Body mass index (BMI) [Ratio] 30.8 kg/m2 Dr. Iwona Stewart Work Phone: [facility] 05-14-2023 13:27-0500 Body weight 94.[address] Iwona Stewart Work Phone: [facility] 05-14-2023 13:27-0500 Diastolic blood pressure 76 mm[Hg] Dr. Iwona Stewart Work Phone: [facility] 05-14-2023 13:27-0500 Heart rate 87 /min Dr. Iwona Stewart Work Phone: [facility] 05-14-2023 13:27-0500 Respiratory rate 22 /min Dr. Iwona Stewart Work Phone: [facility] 05-14-2023 13:27-0500 SaO2% (BldA) [Mass fraction] 96 % Dr. Iwona Stewart Work Phone: [facility] 05-14-2023 13:27-0500 Systolic blood pressure 127 mm[Hg] Dr. Iwona Stewart Work Phone: [facility] 04-29-2023 11:01-0500 Body temperature 97.8 [degF] Dr. Iwona Stewart Work Phone: [facility] 04-29-2023 11:01-0500 Diastolic blood pressure 51 mm[Hg] Dr. Iwona Stewart Work Phone: [facility] 04-29-2023 11:01-0500 Heart rate 86 /min Dr. Iwona Stewart Work Phone: [facility] 04-29-2023 11:01-0500 Respiratory rate 16 /min Dr. Iwona Stewart Work Phone: [facility] 04-29-2023 11:01-0500 SaO2% (BldA) [Mass fraction] 96 % Dr. Iwona Stewart Work Phone: [facility] 04-29-2023 11:01-0500 Systolic blood pressure 129 mm[Hg] Dr. Iwona Stewart Work Phone: [facility] 04-29-2023 06:00-0500 Body mass index (BMI) [Ratio] 30.2 kg/m2 Dr. Iwona Stewart Work Phone: [facility] 04-29-2023 06:00-0500 Body weight 92.[address] Iwona Stewart Work Phone: [facility] 04-27-2023 13:28-0500 Body height 175.[address] Iwona Stewart Work Phone: [facility] 04-27-2023 13:28-0500 Body mass index (BMI) [Ratio] 30.1 kg/m2 Dr. Iwona Stewart Work Phone: [facility] 04-27-2023 13:28-0500 Body weight 92.[address] Iwona Stewart Work Phone: [facility] 04-27-2023 13:06-0500 Diastolic blood pressure 83 mm[Hg] Dr. Iwona Stewart Work Phone: [facility] 04-27-2023 13:06-0500 Heart rate 89 /min Dr. Iwona Stewart Work Phone: [facility] 04-27-2023 13:06-0500 Respiratory rate 12 /min Dr. Iwona Stewart Work Phone: [facility] 04-27-2023 13:06-0500 SaO2% (BldA) [Mass fraction] 94 % Dr. wIona Stewart Work Phone: [facility] 04-27-2023 13:06-0500 Systolic blood pressure 138 mm[Hg] Dr. Iwona Stewart Work Phone: [facility] 04-27-2023 12:48-0500 Body temperature 97.4 [degF] Dr. Iwona Stewart Work Phone: [facility] 04-01-2023 14:52-0400 Diastolic blood pressure 72 mm[Hg] [facility] 04-01-2023 14:52-0400 Heart rate 100 /min [facility] 04-01-2023 14:52-0400 SaO2% (BldA) [Mass fraction] 96 % [facility] 04-01-2023 14:52-0400 Systolic blood pressure 120 mm[Hg] [facility] 04-01-2023 13:19-0400 Body temperature 98.5 [degF] [facility] 04-01-2023 13:19-0400 Respiratory rate 18 /min [facility] 04-01-2023 11:56-0400 Body mass index (BMI) [Ratio] 32.5 kg/m2 [facility] 04-01-2023 11:56-0400 Body weight 99.8 kg [facility] 04-01-2023 11:48-0400 Body height 175.26 cm [facility] 01-15-2023 14:53-0400 Body height 175.3 cm [employer] Work Phone: [facility] 01-15-2023 14:53-0400 Body weight 92.59 kg Uriel Octonius DO Work Phone: [facility] 01-15-2023 14:53-0400 Diastolic blood pressure 70 mm[Hg] [employer] Work Phone: [facility] 01-15-2023 14:53-0400 Heart rate 94 /min [employer] Work Phone: [facility] 01-15-2023 14:53-0400 Systolic blood pressure 120 mm[Hg] [employer] Work Phone: [facility] 12-02-2022 09:55-0400 Body height 175.3 cm EUSEBIO WASHBURN DO [facility] 12-02-2022 09:55-0400 Body temperature 97.88 [degF] EUSEBIO FROMMELT DO [facility] 12-02-2022 09:55-0400 Body weight 94.7 kg EUSEBIO FROMMELT DO [facility] 12-02-2022 09:55-0400 Diastolic Blood Pressure Non-Invasive 85 1 EUSEBIO FROMMELT DO [facility] 12-02-2022 09:55-0400 Heart rate 98 /min EUSEBIO FROMBARTOLOT DO [facility] 12-02-2022 09:55-0400 Respiratory rate 18 /min EUSEBIO FROMBARTOLOT DO [facility] 12-02-2022 09:55-0400 Systolic Blood Pressure Non-Invasive 156 1 EUSEBIO CRUZT DO [facility] 08-11-2022 17:05-0500 Body temperature 97.59 [degF] Eliza Molina DO Work Phone: [facility] 08-11-2022 17:05-0500 Body weight 92.99 kg Eliza Molina DO Work Phone: [facility] 08-11-2022 17:05-0500 Diastolic blood pressure 79 mm[Hg] Eliza Molina DO Work Phone: [facility] 08-11-2022 17:05-0500 Heart rate 89 /min Eliza Molina DO Work Phone: [facility] 08-11-2022 17:05-0500 Respiratory rate 18 /min Eliza Molina DO Work Phone: [facility] 08-11-2022 17:05-0500 SaO2% (BldA) [Mass fraction] 96 % Eliza Molina DO Work Phone: [facility] 08-11-2022 17:05-0500 Systolic blood pressure 145 mm[Hg] Eliza Molina DO Work Phone: [facility] 03-24-2022 07:04-0400 Body height 175.3 cm Uriel Paredes DO Work Phone: [facility] 03-24-2022 07:04-0400 Body weight 95.25 kg Uriel Paredes DO Work Phone: [facility] 03-24-2022 07:04-0400 Diastolic blood pressure 68 mm[Hg] Uriel Paredes DO Work Phone: [facility] 03-24-2022 07:04-0400 Heart rate 71 /min Uriel Paredes DO Work Phone: [facility] 03-24-2022 07:04-0400 Systolic blood pressure 120 mm[Hg] Uriel Paredes DO Work Phone: [facility] Encounters Encounter Date Encounter Type Care Provider Facility Start: 05-21-2025 ambulatory Augusto Lacey [facility] Start: 04-27-2025 End: 04-27-2025 ambulatory KIM PRATT Facility:[id number] Start: 02-27-2025 End: 02-27-[address] Augusto Lacey MD -[facility] Work Phone: Start: 02-27-2025 End: 02-27-2025 ambulatory No Primary Care Physician -[facility] Start: 02-10-2025 End: 02-10-2025 ambulatory No Primary Care Physician -[facility] Start: 02-10-2025 End: 02-10-[address] Chelsea Singh MD -[facility] Work Phone: Start: 02-05-2025 Non-patient / Non-visit Dr. Twila LEE -[facility] Work Phone: Start: 02-05-2025 End: 02-05-2025 ambulatory No Primary Care Physician -Pulmonary Services/Neurology Start: 02-05-2025 End: 02-05-2025 Patient encounter procedure Vidal DEE -Pulmonary Services/Neurology Work Phone: Start: 02-05-2025 End: 02-05-2025 ambulatory No Primary Care Physician Facility:[facility] Start: 11-05-2024 End: 11-05-2024 Patient encounter procedure Vidal Banda RESIDENTIAL PROGRAM COORDINATOR-C -[facility] Work Phone: Start: 11-05-2024 End: 11-05-2024 ambulatory No Primary Care Physician [facility] Work Phone: Start: 08-26-2024 ambulatory No Primary Car e Physician Facility:[facility] Start: 08-26-2024 Non-patient / Non-visit Dr. Marcie Chau MD -[facility] Start: 08-26-2024 End: 08-26-[address] Mark Go DO Work Phone: [facility] Work Phone: Start: 08-26-2024 End: 08-26-2024 Patient encounter procedure Vidal Banda RESIDENTIAL PROGRAM COORDINATOR-C -Cardiovascular Services Work Phone: Start: 08-26-2024 End: 08-26-2024 ambulatory No Primary Care Physician Facility:[facility] Start: 08-18-2024 ambulatory MARISSA SORTO Facilit y:[id number] Start: 08-18-2024 End: 08-18-2024 Subsequent hospital visit by physician [facility] Work Phone: [facility] Comment on above: Subacute cough [R05. 2] Start: 08-18-2024 End: 08-18-2024 ambulatory SELF Facility:[id number] Start: 08-18-2024 End: 08-18-2024 Office outpatient visit 40 minutes Marissa Sorto PAINT TECHNICIAN.AIRPLANE FIRST OFFICER Work Phone: [facility] Comment on above: Subacute cough (Prim pepper Dx); Community acquired pneumonia of left lower lobe of lung Start: 08-18-2024 End: 08-18-2024 Patient encounter procedure Vidal Banda NP-C -[facility] Work Phone: Start: 08-18-2024 End: 08-18-2024 ambulatory No Primary Care Physician Facility:[facility] Start: 08-08-2024 ambulatory Ro Kendrick Facility:[facility] Start: 08-08-2024 Non-patient / Non-visit Dr. Ro sarah MD -[facility] Start: 08-08-2024 End: 08-08-2024 Patient encounter procedure Vidal Banda RESIDENTIAL PROGRAM COORDINATOR-C -Cardiovascular Services Work Phone: Start: 08-08-2024 End: 08-08-2024 ambulatory No Primary Care Physician Facility:[facility] Start: 06-27-2024 End: 06-27-2024 Patient encounter procedure Vidal Banda NP-C -[facility] Work Phone: Start: 06-27-2024 End: 06-27-2024 ambulatory Iwona Stewart Facility:[facility] Start: 06-25-2024 Non-patient / Non-visit Dr. Gregory Kruse MD -[facility] Start: 06-24-2024 ambulatory Don Parker Facility:[facility] Start: 06-24-2024 Non-patient / Non-visit Dr. Gregory Kruse MD -[facility] Start: 06-23-2024 End: 06-25-2024 Evaluation and management of inpatient Dr. Chet Edmonds MD -Progressive Care Unit Work Phone: Start: 06-23-2024 End: 06-25-2024 ambulatory No Primary Care Physician Facility:[facility] Start: 06-23-2024 Non-patient / Non-visit Dr. Sarah Perrin MD -[facility] Work Phone: Start: 05-06-2024 End: 05-06-2024 ambulatory Iwona Stewart Facility:[facility] Start: 05-01-2024 End: 05-05-2024 ambulatory IWONA STEWART MD Facility:[facility] Start: 05-01-2024 End: 05-05-2024 Outreach Lab IWONA STEWART MD [facility] Start: 01-23-2024 End: 01-27-2024 ambulatory IWONA STEWART MD Facility:[facility] Start: 01-23-2024 End: 01-27-2024 Outreach Lab IWONA STEWART MD [facility] Start: 10-19-2023 Non-patient / Non-visit Dr. Mclaughlin Work Phone: [facility] Start: 10-19-2023 Non-patient / Non-visit Dr. Mclaughlin Work Phone: [facility] Work Phone: Start: 10-12-2023 End: 10-12-2023 Non-patient / Non-visit Dr. Iwona Stewart Work Phone: [facility] Start: 10-11-2023 Non-patient / Non-visit Dr. Mclaughlin Work Phone: [facility] Start: 10-07-2023 Telephone encounter Gisell Sandy PA-C Work Phone: [facility] Start: 10-05-2023 End: 10-20-2023 Evaluation and management of inpatient Dr. Iwona Stewart Work Phone: [facility]-Transitional Care Unit Start: 09-26-2023 Non-patient / Non-visit [facility] Mclaughlin [facility] Start: 09-25-2023 End: 10-05-2023 Evaluation and management of inpatient FAIZAN GASPER [facility] Start: 09-25-2023 End: 10-05-2023 Evaluation and management of inpatient Aoms Nichole MD Work Phone: [facility] Cardiac Vascular Progressive Care Unit PCC 1C Start: 09-25-2023 Non-patient / Non-visit Dr. Mclaughlin Work Phone: [facility] Inpatient Physicians Work Phone: Start: 09-25-2023 Non-patient / Non-visit Dr. Mclaughlin Work Phone: [facility] Start: 09-24-2023 Non-patient / Non-visit Dr. Mclaughlin Work Phone: [facility] Work Phone: Start: 09-24-2023 Non-patient / Non-visit Dr. Mclaughlin Work Phone: [facility] Start: 09-24-2023 Non-patient / Non-visit Dr. Mclaughlin Work Phone: [facility] Start: 09-23-2023 Non-patient / Non-visit Dr. Mlcaughlin Work Phone: [facility] Start: 09-23-2023 Non-patient / Non-visit Dr. Mclaughlin Work Phone: [facility] Work Phone: Start: 09-23-2023 End: 09-25-2023 Evaluation and management of inpatient [facility] Work [facility] Start: 09-23-2023 End: 09-23-2023 Emergency department patient visit DR GRISELDA AGUILERA DO [facility] Start: 09-21-2023 End: 09-23-2023 Evaluation and management of inpatient ELIZA STUBBS PAINT TECHNICIAN-AIRPLANE FIRST OFFICER [facility] Start: 09-18-2023 End: 09-21-[address] IWONA SCHREIBER MD Facility:[facility] Start: 09-18-2023 End: 09-21-[address] IWONA SCHREIBER MD [facility] Start: 09-10-2023 ambulatory EBEN KIM PA-C Fac ility:B Start: 08-10-2023 End: 08-10-2023 ambulatory IWONA STEWART MD Facility:[facility] Start: 07-23-[address] IWONA SCHREIBER MD F acility:B Start: 07-23-2023 End: 07-23-[address] IWONA SCHREIBER MD [facility] Start: 07-23-2023 End: 07-23-[address] IWONA SCHREIBER MD Facility:[facility] Start: 06-21-2023 Non-patient / Non-visit Dr. Mclaughlin Work Phone: [facility] Work Phone: Start: 06-21-2023 End: 06-21-[address] Iwona Stewart Work Phone: [facility] Work Phone: Start: 06-21-2023 End: 06-21-[address] Iwona Stewart Work Phone: [facility]-Cardiovascula r Services Work Phone: Start: 06-19-2023 End: 06-19-[address] Iwona Stewart Work Phone: [facility] Work Phone: Start: 05-31-2023 End: 06-04-2023 ambulatory IWONA STEWART MD Facility:B Start: 05-31-2023 End: 06-04-2023 Outreach Lab IWONA STEWART MD [facility] Start: 05-24-2023 Non-patient / Non-visit Dr. Mclaughlin Work Phone: [facility] Work Phone: Start: 05-23-2023 Non-patient / Non-visit Dr. Mclaughlin Work Phone: [facility] Start: 05-23-2023 End: 05-23-[address] [facility]wona Stewart [facility] Work Phone: Start: 05-14-2023 End: 05-14-[address] Iwona Stewart Work Phone: [facility] Work Phone: Start: 05-14-2023 End: 05-14-[address] Iwona Stewart Work Phone: [facility] Work Phone: Start: 05-08-[address] Iwona Stewart Work Phone: [facility] Work Phone: Start: 04-29-2023 Non-patient / Non-visit Dr. Mclaughlin Work Phone: [facility] Start: 04-29-2023 Non-patient / Non-visit Dr. Mclaughlin Work Phone: [facility] Inpatient Physicians Work Phone: Start: 04-28-2023 Non-patient / Non-visit Dr. Mclaughlin Work Phone: [facility] Start: 04-27-2023 Non-patient / Non-visit Dr. Mclaughlin Work Phone: [facility] Start: 04-27-2023 Non-patient / Non-visit Dr. Mclaughlin Work Phone: [facility] Start: 04-27-2023 End: 04-29-2023 Evaluation and management of inpatient Dr. Iwona Stewart Work Phone: [facility]-Intensive Care Unit Work Phone: Start: 04-01-2023 End: 04-01-2023 Emergency department patient visit [facility]-Emergency Department Work Phone: Start: 02-07-2023 Refill Ani Mejía APRN.AIRPLANE FIRST OFFICER Work Phone: [facility] Comment on above: Refill Request Start: 01-15-2023 End: 01-15-2023 ambulatory URIEL PAREDES DO Facility:[facility] Start: 01-15-2023 End: 01-15-2023 Patient encounter procedure Uriel Chet Verito DO Work Phone: [facility] Comment on above: Essential hypertensi on (Primary Dx); Hyperlipidemia LDL goal <70; HFrEF (heart failure with reduced ejection fraction) (HCC); History of cardiac cath; History of echocardiography; History of stress test; History of Holter monitoring; Non-smoker Start: 12-21-2022 Refill Ani Mejía APRN.AIRPLANE FIRST OFFICER Work Phone: [facility] Comment on above: Refill Request Start: 12-02-2022 End: 12-02-2022 Emergency department patient visit EUSEBIO WASHBURN DO [facility] Start: 08-25-2022 End: 08-25-2022 Patient encounter procedure ALIS KAMARA MD [facility] Start: 08-11-2022 End: 08-11-2022 Patient encounter procedure Eliza Molina DO Work Phone: [facility] Comment on above: Left sided sciatica (Primary Dx) Start: 06-15-2022 Refill Uriel Santos rachel DO Work Phone: [facility] Comment on above: Refill Request Start: 03-24-2022 End: 03-24-2022 ambulatory URIEL VERITO MULLER Facility:[facility] Start: 03-24-2022 End: 03-24-2022 Patient encounter procedure Uriel Paredes DO Work Phone: [facility] Cardiology Comment on above: Dizziness (Primary D x); Essential hypertension; Mixed hyperlipidemia; 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 Mark Go DO Work Phone: Start: 06-27-2024 Evaluation of diagno stic study results Dr. Mark Go DO Work Phone: Start: 06-23-2024 X-ray of chest, PA a nd lateral views Dr. Mark Go DO Work Phone: Start: 10-10-2023 Plain chest X-ray Dr. Willy Stewart Work Phone: Start: 10-07-2023 Measurement of occul t blood in stool specimen using immunoassay Dr. Iwona Stewart Work Phone: Start: 10-05-2023 Ecg routine ecg w/le ast 12 lds trcg only w/o i&r Jaclyn Morjeon MD Work Phone: Start: 10-05-2023 Comprehensive metabo lic panel Jaclyn Morejon MD Work Phone: Start: 10-04-2023 Radiologic exam ches t single view Christopher Swansonsol DO Work Phone: Start: 10-04-2023 Ecg routine ecg w/le ast 12 lds trcg only w/o i&r Jaclyn Morejon MD Work Phone: Start: 10-04-2023 Comprehensive metabo lic panel Jaclyn Morejon MD Work Phone: Start: 10-03-2023 Ecg routine ecg w/le ast 12 lds trcg only w/o i&r Jaclyn Morejon MD Work Phone: Start: 10-03-2023 Thoracentesis needle /cath pleura w/imaging Christopher Salcedo DO Work Phone: Start: 10-03-2023 BODY FLUID CELL COUN T WITH REFLEX DIFF Christopher Salcedo DO Work Phone: Start: 10-03-2023 BODY FLUID DIFFERENTIAL Christopher Salcedo DO Work Phone: Start: 10-03-2023 Culture bacterial an y source anaerobic iso&id Christopher Salcedo DO Work Phone: Start: 10-03-2023 PATHOLOGY REVIEW Kirk Salcedo DO Work Phone: Start: 10-03-2023 Comprehensive metabo lic panel Jaclyn Morejon MD Work Phone: Start: 10-02-2023 Radex hip unilateral with pelvis 2-3 views Tomasa Richter MD Work Phone: Start: 10-02-2023 Radiologic exam ches t single view Ashleigh Perkins [employer] PAINT TECHNICIAN - AIRPLANE FIRST OFFICER Work Phone: Start: 10-02-2023 Cardioversion electi ve arrhythmia external Ashleigh Perkins [employer] PAINT TECHNICIAN - AIRPLANE FIRST OFFICER Work Phone: Start: 10-02-2023 Ecg routine ecg w/le ast 12 lds trcg only w/o i&r Jefry Fleming MD Work Phone: Start: 10-02-2023 Ecg routine ecg w/le ast 12 lds trcg only w/o i&r Jaclyn Morejon MD Work Phone: Start: 10-02-2023 Comprehensive metabo lic panel Jaclyn Morejon MD Work Phone: Start: 10-01-2023 Radiologic exam ches t 2 views Christopher Salcedo DO Work Phone: Start: 10-01-2023 Ecg routine ecg w/le ast 12 lds trcg only w/o i&r Jaclyn Morejon MD Work Phone: Start: 10-01-2023 Comprehensive metabo lic panel Jaclyn Morejon MD Work Phone: Start: 09-30-2023 TTE w or wo fol wcon,Doppler Sue Emerson MD Work Phone: Start: 09-30-2023 Sedimentation rate r bc automated Sue Emerson MD Work Phone: Start: 09-30-2023 Ecg routine ecg w/le ast 12 lds trcg only w/o i&r Jaclyn Morejon MD Work Phone: Start: 09-30-2023 C-reactive protein Mary Emerson MD Work Phone: Start: 09-30-2023 Comprehensive metabo lic panel Jaclyn Morejon MD Work Phone: Start: 09-29-2023 Ecg routine ecg w/le ast 12 lds trcg only w/o i&r Amos Nichole MD Work Phone: Start: 09-29-2023 Radiologic exam ches t single view Doyle Coelho MD Work Phone: Start: 09-29-2023 Ecg routine ecg w/le ast 12 lds trcg only w/o i&r Amos Nichole MD Work Phone: Start: 09-29-2023 Ecg routine ecg w/le ast 12 lds trcg only w/o i&r Jaclyn Morejon MD Work Phone: Start: 09-29-2023 Thyrotropin [Units/v olume] in Serum or Plasma Gisell Sandy PA-C Work Phone: Start: 09-29-2023 Comprehensive metabo lic panel Jaclyn Morejon MD Work Phone: Start: 09-28-2023 Radiologic exam ches t single view Elisa E Guilda PAINT TECHNICIAN - AIRPLANE FIRST OFFICER Work Phone: Start: 09-28-2023 Ecg routine ecg w/le ast 12 lds trcg only w/o i&r Elisa Goldstein PAINT TECHNICIAN - AIRPLANE FIRST OFFICER Work Phone: Start: 09-28-2023 Calcium ionized Jaclyn Morejon MD Work Phone: Start: 09-27-2023 Comprehensive metabo lic panel Jaclyn Morejon MD Work Phone: Start: 09-27-2023 Ecg routine ecg w/le ast 12 lds trcg only w/o i&r Amos Nichole MD Work Phone: Start: 09-27-2023 Ecg routine ecg w/le ast 12 lds trcg only w/o i&r Elisa Goldstein PAINT TECHNICIAN - AIRPLANE FIRST OFFICER Work Phone: Start: 09-27-2023 Radiologic exam ches t single view Elisa Goldstein PAINT TECHNICIAN - AIRPLANE FIRST OFFICER Work Phone: Start: 09-27-2023 Ecg routine ecg w/le ast 12 lds trcg only w/o i&r Jaclyn Morejon MD Work Phone: Start: 09-27-2023 Comprehensive metabo lic panel Jaclyn Morejon MD Work Phone: Start: 09-26-2023 OXYGEN THERAPY Mark Amb lyn PAINT TECHNICIAN - PACKAGING LINE ATTENDANT Start: 09-26-2023 Radiologic exam ches t single view Doyle Coelho MD Work Phone: Start: 09-26-2023 Blood gases any comb ination ph pco2 po2 co2 hco3 Doyle Coelho MD Work Phone: Start: 09-26-2023 Ecg routine ecg w/le ast 12 lds trcg only w/o i&r Jaclyn Morejon MD Work Phone: Start: 09-26-2023 Coagulation time activated Amos Nichole MD Work Phone: Start: 09-26-2023 Ecg routine ecg w/le ast 12 lds trcg only w/o i&r Alvin Pickett MD Work Phone: Start: 09-26-2023 OXYGEN THERAPY Mark Amb lyn PAINT TECHNICIAN - PACKAGING LINE ATTENDANT Start: 09-26-2023 Cardiac catheterizat ion study Ashleigh Perkins [employer] PAINT TECHNICIAN - AIRPLANE FIRST OFFICER Work Phone: Start: 09-26-2023 INTRAVASCULAR LITHOTRIPSY Ashleigh Perkins [employer] PAINT TECHNICIAN - AIRPLANE FIRST OFFICER Work Phone: Start: 09-26-2023 Percutaneous coronar y intervention Ashleigh Perkins [employer] PAINT TECHNICIAN - AIRPLANE FIRST OFFICER Work Phone: Start: 09-26-2023 End: 09-26-2023 POCT ACT Amos Nichole MD Work Phone: Start: 09-26-2023 Comprehensive metabo lic panel Ashleigh Perkins [employer] PAINT TECHNICIAN - AIRPLANE FIRST OFFICER Work Phone: Start: 09-25-2023 Thromboplastin time partial plasma/whole blood Ashleigh Perkins [employer] PAINT TECHNICIAN - AIRPLANE FIRST OFFICER Work Phone: Start: 09-25-2023 Blood count complete automated Ashleigh Perkins [employer] PAINT TECHNICIAN - AIRPLANE FIRST OFFICER Work Phone: Start: 09-24-[address] Deven Stewart Work Phone: Start: 09-24-2023 Plain chest X-ray Dr. Willy Stewart Work Phone: Start: 09-23-2023 Plain chest X-ray Dr. Willy Stewart Work Phone: Start: 06-21-2023 Cardiovascular stres s test using pharmacologic stress agent Dr. Iwona Stewart Work Phone: Start: 04-28-2023 MRI of brain without contrast Dr. Iwona Stewart Work Phone: Start: 04-27-2023 Plain chest X-ray Dr. Willy Stewart Work Phone: Start: 04-27-2023 CT of head without contrast Dr. Iwona Stewart Work Phone: Start: 04-27-2023 CT angiography of he ad and neck Dr. 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 ALIS KAMRAA MD Prosthetic arthropla sty of the hip DR IWONA SCHREIBER MD Comment on above: RIGHT Plan of Treatment Date Care Activity Detail Author Start: 10-04-2026 Diabetes Screening Diabetes Screenin g [facility] Start: 11-05-2024 Evaluation of diagno stic study results [facility] Start: 10-04-2024 Creatinine measurement [facility] Start: 10-04-2024 Potassium measurement [facility] Start: 09-29-2024 Echocardiography Echocardiogram [facility] Start: 09-29-2024 [facility] Start: 09-28-2024 Thyroid stimulating hormone measurement [facility] Start: 06-25-2024 Patient discharge [facility] Start: 06-23-2024 Referral to box sealing inspector [facility] Start: 06-23-2024 Following clinical p athway protocol [facility] Start: 06-23-2024 Assessment of risk o f venous thromboembolism [facility] Start: 06-23-2024 Fall prevention [facility] Start: 06-23-2024 Inhalation therapy procedure [facility] Start: 06-23-2024 Insertion of cathete r into peripheral vein [facility] Start: 06-23-2024 Introduction of urin pepper catheter [facility] Start: 06-23-2024 Measuring intake and output [facility] Start: 06-23-2024 Oxygen therapy [facility] Start: 06-23-2024 Providing care accor ding to standard [facility] Start: 06-23-2024 Provision of activit y privileges [facility] Start: 06-23-2024 Referral to occupati onal therapist [facility] Start: 06-23-2024 Referral to service [facility] Start: 06-23-2024 [facility] Start: 06-23-2024 Admission procedure [facility] Start: 06-18-2024 Advance Directive Discussion Advance Directive Discussion [facility] Start: 02-17-2024 Covid-19 Vaccine () Covid-19 Vaccine () [facility] Start: 02-17-2024 Influenza vaccination S [facility] Start: 02-17-2024 [facility] Start: 01-16-2024 BP CONTROLLED (<130/80) BP CONTROLLE D (<130/80) [facility] Start: 10-20-2023 Patient discharge [facility] Start: 10-19-2023 Development of care plan [facility] Start: 10-19-2023 [facility] Start: 10-17-2023 Referral to service [facility] Start: 10-10-2023 Referral to gastroenterology service [facility] Start: 10-07-2023 [facility] Start: 10-06-2023 Developing a treatme nt plan [facility] Start: 10-06-2023 Development of care plan [facility] Start: 10-06-2023 [facility] Start: 10-06-2023 Following clinical p athway protocol [facility] Start: 10-05-2023 Provision of activit y privileges [facility] Start: 10-05-2023 [facility] Start: 10-05-2023 Wound care [facility] Start: 10-05-2023 Admission procedure [facility] Start: 10-05-2023 Measuring intake and output [facility] Start: 10-05-2023 Patient referral to dietitian [facility] Start: 10-05-2023 Referral to occupati onal therapist [facility] Start: 10-05-2023 Referral to service [facility] Start: 10-05-2023 Vital signs measurements [facility] Start: 10-05-2023 End: 10-05-2023 [facility] Start: 09-25-2023 [facility] Start: 09-25-2023 [facility] Start: 09-25-2023 Patient discharge [facility] Start: 09-24-2023 Physiotherapy of chest [facility] Start: 09-24-2023 Bacteria identified in Urine by Culture [facility] Start: 09-24-2023 Patient referral [facility] Work Phone: Start: 09-24-2023 Continuous pulse oximetry [facility] Start: 09-24-2023 Dual pressure sponta neous ventilation support [facility] Start: 09-24-2023 Notification of physician [facility] Start: 09-24-2023 Provision of activit y privileges [facility] Start: 09-24-2023 Pulse taking [facility] Start: 09-24-2023 Taking patient vital signs [facility] Start: 09-24-2023 Wound care [facility] Start: 09-24-2023 [facility] Start: 09-23-2023 Catheterization of vein [facility] Start: 09-23-2023 Medication not administered [facility] Start: 09-23-2023 [facility] Start: 09-23-2023 Consultation for treatment [facility] Start: 09-23-2023 Ambulation without limitation [facility] Start: 09-23-2023 Assessment of risk o f venous thromboembolism [facility] Start: 09-23-2023 Cardiac monitoring [facility] Start: 09-23-2023 Incentive spirometry [facility] Start: 09-23-2023 Insertion of cathete r into peripheral vein [facility] Start: 09-23-2023 Oxygen therapy [facility] Start: 09-23-2023 Providing care accor ding to standard [facility] Start: 09-23-2023 Referral to box sealing inspector [facility] Start: 09-23-2023 Referral to occupati onal therapist [facility] Start: 09-23-2023 Referral to service [facility] Start: 09-23-2023 [facility] Start: 09-23-2023 Admission procedure [facility] Start: 09-23-2023 Following clinical p athway protocol [facility] Start: 06-18-2023 Medicare Advantage A nnual Wellness Visit Medicare Advantage Annual Wellness Visit [facility] Start: 06-18-2023 [facility] Start: 04-29-2023 Patient discharge [facility] Start: 04-28-2023 Care planning and pr oblem solving actions [facility] Start: 04-28-2023 Telepractice consultation [facility] Start: 04-27-2023 Bedrest [facility] Start: 04-27-2023 Care regimes management [facility] Start: 04-27-2023 Consultation [facility] Start: 04-27-2023 Incentive spirometry [facility] Start: 04-27-2023 Insertion of cathete r into peripheral vein [facility] Start: 04-27-2023 Measuring intake and output [facility] Start: 04-27-2023 Notification of physician [facility] Start: 04-27-2023 Providing care accor ding to standard [facility] Start: 04-27-2023 Referral to box sealing inspector [facility] Start: 04-27-2023 Referral to occupati onal therapist [facility] Start: 04-27-2023 Referral to service [facility] Start: 04-27-2023 Speech therapy assessment [facility] Start: 04-27-2023 Vital signs measurements [facility] Start: 04-27-2023 [facility] Start: 04-27-2023 Following clinical p athway protocol [facility] Start: 04-27-2023 End: 04-27-2023 [facility] Start: 04-27-2023 Hospital admission, emergency, from emergency room, medical nature [facility] Start: 04-27-2023 Admission procedure [facility] Start: 04-27-2023 Bleeding precautions [facility] Start: 04-27-2023 Consultation [facility] Start: 04-27-2023 Oxygen therapy [facility] Start: 04-01-2023 [facility] Start: 03-24-2023 BP CONTROLLED (<130/80) BP CONTROLLE D (<130/80) [facility] Start: 02-16-2023 COVID-19 Vaccine ( season) COVID-19 Vaccine ( season) [facility] Start: 02-16-2023 Influenza vaccination INFLUENZA (#1) [facility] Start: 02-16-2023 [facility] Start: 06-18-2022 ADVANCE DIRECTIVE DISCUSSION ADVANCE DIRECTIVE DISCUSSION [facility] Start: 06-18-2022 DEPRESSION ASSESSMENT DEPRESSION ASS ESSMENT [facility] Start: 02-16-2022 Influenza vaccination [facility] Start: 08-01-2021 COVID-19 VACCINE (3 - Booster for Moderna series) COVID-19 VACCINE (3 - Booster for Moderna series) [facility] Start: 06-18-2021 ADVANCE DIRECTIVE DISCUSSION ADVANCE DIRECTIVE DISCUSSION [facility] Start: 06-18-2021 DEPRESSION ASSESSMENT DEPRESSION ASS ESSMENT [facility] Start: 04-26-2021 COVID-19 VACCINE (3 - Booster for Moderna series) COVID-19 VACCINE (3 - Booster for Moderna series) [facility] Start: 04-26-2021 COVID-19 VACCINE (3 - Moderna series) COVID-19 VACCINE (3 - Moderna series) [facility] Start: 02-16-2021 Influenza vaccination INFLUENZA (#1) [facility] Start: 2018 RSV Vaccine (1 - 1-d ose 75+ series) RSV Vaccine (1 - 1-dose 75+ series) [facility] Start: 2008 PNEUMOCOCCAL: 65+ (1 - PCV) PNEUMOCOCCAL: 65+ (1 - PCV) [facility] Start: 2008 PNEUMOVAX AGE 65 AND OVER WITH 5YR LOOKBACK (#1) PNEUMOVAX AGE 65 AND OVER WITH 5YR LOOKBACK (#1) [facility] Start: 2003 RSV Immunization age d 60 or older (1 - 1-dose 60+ series) RSV Immunization aged 60 or older (1 - 1-dose 60+ series) [facility] Start: 2003 [facility] Start: 1993 Pneumococcal Vaccine : 50+ (1 of 1 - PCV) Pneumococcal Vaccine: 50+ (1 of 1 - PCV) [facility] Start: 1993 SHINGRIX VACCINE (1 of 2) PAYNE GRIX VACCINE (1 of 2) [facility] Start: 1993 Zoster Vaccines (1 of 2) Zoste r Vaccines (1 of 2) [facility] Start: 1993 [facility] Start: 1988 DIABETES SCREEN DIABETES SCREEN [facility] Start: 1962 DTaP/Tdap/Td Vaccine s (1 - Tdap) DTaP/Tdap/Td Vaccines (1 - Tdap) [facility] Start: 1962 Urine microalbumin profile [facility] Start: 1962 [facility] Start: 1961 ANNUAL PCP TEAM WATER MANGLE TENDER ADRIA DISEASE VISIT ANNUAL PCP TEAM CHRONIC DISEASE VISIT [facility] Start: 1961 Anxiety Screening Anxiety Screening [facility] Start: 1961 BP CONTROLLED (<130/80) BP CONTROLLE D (<130/80) [facility] Start: 1961 Depression Screening Depression Scre ening [facility] Start: 1961 Hepatitis B surface antibody level LDL CHOLESTEROL [facility] Start: 1961 HEPATITIS C SCREENING HEPATITIS C SC REENING [facility] Start: 1955 Adult depression scr eening assessment DEPRESSION SCREENING [facility] Start: 1955 [facility] Start: 1949 Pneumococcal Vaccine : 65+ Years (1 of 2 - PCV) Pneumococcal Vaccine: 65+ Years (1 of 2 - PCV) [facility] Start: 1949 [facility] Start: 1943 Lipid panel [facility] 24 Hour ECG [facility] End: 10-03-2023 Aerobic and Anaerobic Culture with Stain [facility] Work Phone: Alanine aminotransfe rase [Enzymatic activity/volume] in Serum or Plasma [facility] Albumin [Mass/volume ] in Serum or Plasma [facility] Alkaline phosphatase [Enzymatic activity/volume] in Serum or Plasma [facility] Anion gap measurement [facility] Aspartate aminotrans ferase [Enzymatic activity/volume] in Serum or Plasma [facility] Bacteria identified in Unspecified specimen by Aerobe culture [facility] Bacteria identified in Unspecified specimen by Anaerobe culture [facility] Bilirubin, total measurement [facility] BUN/Creatinine ratio [facility] Calcium [Mass/volume ] in Serum or Plasma [facility] Carbon dioxide, tota l [Moles/volume] in Serum or Plasma [facility] Cardiac event recording [facility] CBC W Auto Different ial panel - Blood [facility] Chloride [Moles/volu me] in Serum or Plasma [facility] Comprehensive metabo lic 1999 panel - Serum or Plasma [facility] Creatinine [Moles/vo lume] in Serum or Plasma [facility] ECG 12 lead [facility] Work Phone: ECG COMPLETE ECG COMPLETE ECG Routine Essential hypertension 03/24/2022 7:08 AM EDT [facility] Work Phone: ECG COMPLETE ECG COMPLETE ECG Routine Essential hypertension 01/15/2023 1:53 PM EDT [facility] Work Phone: Ferritin [Mass/volum e] in Serum or Plasma [facility] Glucose [Mass/volume ] in Serum or Plasma [facility] Iron and Iron bindin g capacity panel - Serum or Plasma [facility] Lipid 1996 panel - S stan or Plasma [facility] Magnesium [Mass/volu me] in Serum or Plasma [facility] Measurement of renal function [facility] NM Heart Views W str ess and W radionuclide IV [facility] Patient Education Cellulitis [facility] Work Phone: Patient referral [facility] Work Phone: Potassium [Moles/vol ume] in Serum or Plasma [facility] Prostate specific an tigen measurement [facility] Serum inorganic phos phate measurement [facility] Sodium [Moles/volume ] in Serum or Plasma [facility] Thyroid stimulating hormone measurement [facility] Total protein measurement [facility] Urea nitrogen [Mass/volume] in Serum or Plasma [facility] US Carotid arteries [facility] Vitamin D, 25-hydrox y measurement [facility] End: 09-17-2025 XR Chest PA and Lateral XR CHEST 2V FRONTAL/LAT Radiology Routine Subacute cough 1 Occurrences starting 08/18/2024 until 09/17/2025 [facility] Work Phone: Comment on above: 1 Occurrences starti ng 08/18/2024 until 09/17/2025 XR Chest PA and Lateral XR CHEST 2V FRONTAL/LAT Radiology Routine Subacute cough 08/18/2024 2:07 PM EST [facility] Immunizations Immunization Date Immunization Notes Care Provider Fa cility 03-01-2021 SARS-CoV-2 (COVID-19 ) mRNA-1273 vaccine IWONA STEWART MD [facility] Comment on above: Result Comment: 2022: [id number] 02-01-2021 SARS-CoV-2 (COVID-19 ) mRNA-1273 vaccine IWONA STEWART MD [facility] Comment on above: Result Comment: 2022: [id number] Payers Date Payer Category Payer Self-pay 2019 Medicare [employer] MEDICARE [employer] MEDICARE PPO [id number] 2019-Present [phone] [place] [address] PPO [id number] 2019 Medicare [id number] 2019 Medicare (Managed Care) HU[employer]NA M EDICARE [id number] 2019 Medicare [id number] 2008 Medicare [id number] 1943 Unknown [id number] [id number]. 2.627 1943 Unknown [id number] 2.16.840.1.112936.3.579. 2.62 1943 Unknown [id number] 2.16.840.1.299141.3.579. 2.62 1943 Unknown [id number] 2.16.840.1.486704.3.579. 2.62 1943 Unknown [id number] 2.16.840.1.882740.3.579. 2.62 1943 Unknown [id number] 2.16.840.1.515509.3.579. 2.62 1943 Unknown [id number] 2.16.840.1.512176.3.579. 2.62 1943 Unknown [id number] 2.16.840.1.943022.3.579. 2.62 1943 Unknown [id number] 2.16.840.1.997675.3.579. 2.627 1943 Unknown [id number] 2.16.840.1.065696.3.579. 2.627 Unknown [id number] Unknown [id number] 2.16.840.1.715454.3.579. 2.462 Unknown [id number] 2.16.840.1.163263.3.579. 2.462 Unknown [id number] 2.16.840.1.150689.3.579. 2.462 Unknown [id number] 2.16.840.1.941866.3.579. 2.462 Unknown [id number] 2.16.840.1.070769.3.579. 2.462 Unknown [id number] 2.16.840.1.016753.3.579. 2.462 Unknown [id number] 2.16.840.1.548732.3.579. 2.462 Unknown [id number] 2.16.840.1.498409.3.579. 2.462 Unknown [id number] 2.16.840.1.205975.3.579. 2.462 Unknown [id number] Unknown [id number]. 2.462 Unknown [id number]. 2.462 Unknown [id number]. 2.462 Unknown [id number] 2.16.840.1.633179.3.579. 2.462 Unknown [id number] 2.16.840.1.896201.3.579. 2.462 Unknown [id number] [id number]. 2.462 Unknown [id number] 2.16.840.1.272864.3.579. 2.462 Unknown [id number] 2.16.840.1.682524.3.579. 2.462 Unknown [id number]. 2.462 Unknown [id number]. 2.462 Social History Date Type Detail Facility Start: 09-10-2019 End: 02-10-2025 Tobacco smoking status NHIS Never smoked tobacco [facility] Start: 09-10-2019 End: 08-18-2024 Tobacco use and exposure Smokeless tobacco non-user [facility] Start: 04-20-2021 End: 08-18-2024 Alcohol intake Ex-drinker (finding) [facility] Start: 1945 Sex Assigned At Not on file C [facility] Start: 03-14-2022 End: 03-24-2022 Exposure to SARS-CoV-2 (event) Not sure [facility] Sex Assigned At Sex [facility] Start: 05-25-2020 End: 01-15-2023 History of Social function [facility] Start: 05-25-2020 End: 01-15-2023 Tobacco use panel [facility] Adult Depression Screening Assessment 0 [facility] Start: 04-01-2023 End: 10-05-2023 Tobacco smoking status NHIS Unknown if ever smoked [facility] Start: 1945 Sex Assigned At Male W [facility] Start: 10-04-2023 Alcohol intake Lifetime non-d shlomo (finding) [employer] Has the [employer], [employer], or water [employer] threatened to shut off services in your home in past 12Mo No Si TV How often to you hav e a drink containing alcohol? Never Si TV (I/We) worried whemagy er (my/our) food would run out before (I/we) got money to buy more. Never true [employer] Start: 09-25-2023 Gender identity Identifies as male gender (finding) [facility] Start: 09-05-2024 Sex Male (finding) [facility] Sexual Orientation Heterosexual (finding) [facility] NEGATED: Highlighted rowStart: NINF History of tobacco use Passive smoker [facility] Medical Equipment Procedure Code Equipment Code Equipment Origin al Text Equipment Identifier Dates Colonoscopy Ligation clip, metallic [id number] FDA Start: 10-12-2023 Colonoscopy Ligation clip, metallic ()[id number] FDA Start: 10-12-2023 [id number] Start: 09-26-2023 [id number] Start: 09-26-2023 Goals Date Patient Goal Desired Activity /State Functional Status Date Assessment Result Facility 06-25-2024 Functional status Chair;Bathroom Privileg e [facility] Work Phone: 10-20-2023 Functional status Chair [facility] Work Phone: 09-25-2023 Functional status Activity Abili ty With Assist of 2 [facility] Work Phone: 09-23-2023 [facility] Functional Status Standard Safety ID band on [facility] 09-23-2023 Functional Status Room check performed [facility] 09-23-2023 Functional [facility] 09-22-2023 Functional Status 7pm-7am [facility] Functional Status [facility] 09-22-2023 Functional Status Supervised [facility] 09-22-2023 Functional Status [facility] 09-22-2023 Functional Status [facility] 09-21-2023 Functional Status [facility] 09-21-2023 Functional Status Front wheeled walker [facility] 09-21-2023 Functional Status Room check performed [facility] 09-21-2023 Functional Status [facility] 09-21-2023 Functional Status Mod A [facility] 09-21-2023 Functional Status [facility] Status [facility]-21-[facility]23 Functional Status Gloria Ho spidanyelle [facility] 09-20-2023 Functional Status Gloria Ho spital Gloria [facility] 09-20-2023 Functional Status Gloria Ho spital Gloria [facility] 09-20-2023 Functional Status Mod A [facility] 09-20-2023 Functional Status [facility] 09-20-2023 Functional Status Gloria Ho sabrina [facility] 09-20-2023 Functional Status Gloria Ho [facility] 09-20-2023 Functional Status Gloria Arciniega [facility] 09-19-2023 Functional Status Gloria Arciniega [facility] 09-19-2023 Functional Status Gloria Arciniega [facility] 09-19-2023 Functional Status Gloria Arciniega [facility] 09-19-2023 Functional Status Gloria Arciniega [facility] 09-19-2023 Functional Status Multilevel anoop e, 1st floor bedroom, 1st floor bathroom [facility] 09-18-2023 Functional Status Gloria Arciniega [facility] 09-18-2023 Functional Status Gloria Arciniega [facility] 09-18-2023 Functional Status foam pillow, ice on [facility] 09-18-2023 Functional [facility] Functional status Ambulates [facility] Work Phone: 12-02-2022 Functional Status Room check performed [facility] Mental Status Date Assessment Result Facility 06-25-2024 Cognitive function Voice/Name [facility] Work Phone: 10-20-2023 Cognitive function Voice/Name [facility] Work Phone: 10-15-2023 Cognitive function Appropriate;[facility] Work Phone: 09-25-2023 Cognitive function Appropriate;[facility] Work Phone: 09-23-2023 Mental Status Orientation Oriented x 4 [facility] 09-23-2023 Mental Status Oriented x 4 [facility] 09-23-2023 Mental Status [facility] 09-22-2023 Mental Status [facility] 09-22-2023 Mental Status [facility] 09-21-2023 Mental Status Orientation Asse ssment Oriented x 4 [facility] 09-21-2023 Mental Status Oriented x 4 [facility] 09-21-2023 Mental Status [facility] 09-20-2023 Mental Status [facility] 09-20-2023 Mental Status [facility] 04-29-2023 Cognitive function Voice/Name [facility] Work Phone: 04-27-2023 Cognitive function Voice/Name [facility] Work Phone: 12-02-2022 Mental Status Oriented x 4 [facility] Clinical Notes 08-26-2021 to 04-27-2025 Note Date & Type Note Facility 04-27-2025 Note HNO ID: [id number] Author: KIM PRATT APRN.AIRPL[employer] FIRST OFFICER Service: ? Author Type: Nurse Practitioner Type: Progress Notes Filed: 04/27/2025 14:12 Note Text: [facility] DANYELLN Ramo Cruz is a 80 year old male. Patient presents with: Cough: Cough, Sinus Drainage, x 3 weeks OTC meds help a little per patient Patient states he is not sure what is causing the excessive fluid in his throat Medication: REBECCA -I did notice from patients med list he is on 2 different blood thinners during triage Cough The patient is an 80-year-old male presenting with cough and throat discomfort. Cough and Throat Discomfort: - Persistent cough and sensation of stuff in the throat for several weeks. - Using cough drops with some relief. - Experiences wheezing in the throat, particularly in the morning. - Denies sinus pressure, pain, or ear pain. - Mild rhinorrhea; denies sore throat, nausea, emesis, or diarrhea. - No recent exposure to sick contacts. - Denies history of asthma, COPD, or diabetes. - Current medications include Plavix and Eliquis. Review of Systems Respiratory: Positive for cough. Constitutional: (-) fever Head: (-) sinus pressure, (-) sinus pain Ears/Nose/Mouth/Throat: (+) postnasal drainage, (+) runny nose, (-) ear pain, (-) sore throat Respiratory: (+) cough, (+) wheezing Gastrointestinal: (-) nausea, (-) vomiting, (-) diarrhea Objective BP 116/72 (BP Site: Left Arm, BP Position: Sitting, BP Cuff Size: Large Adult) Pulse (!) 58 Temp 36.4 ?C (97.6 ?F) (Temporal) Resp 16 Wt 94 kg (207 lb 3.2 oz) SpO2 97% BMI 30.60 kg/m? Physical Exam Vitals and nursing note reviewed. Constitutional: General: He is not in acute distress. HENT: Head: Normocephalic and atraumatic. Right Ear: Tympanic membrane and external ear normal. Left Ear: Tympanic membrane and external ear normal. Mouth/Throat: Lips: [place]. Mouth: Mucous membranes are moist. Pharynx: Posterior oropharyngeal erythema and postnasal drip present. Tonsils: 0 on the right. 0 on the left. Cardiovascular: Rate and Rhythm: Normal rate and regular rhythm. Heart sounds: Normal heart sounds. No murmur heard. No friction rub. No gallop. Pulmonary: Effort: Pulmonary effort is normal. No respiratory distress. Breath sounds: No stridor. Examination of the left-lower field reveals wheezing. Wheezing present. No rhonchi or rales. Lymphadenopathy: Head: Right side of head: No submental, submandibular, tonsillar, preauricular, posterior auricular or occipital adenopathy. Left side of head: No submental, submandibular, tonsillar, preauricular, posterior auricular or occipital adenopathy. Skin: General: Skin is warm and dry. Capillary Refill: Capillary refill takes less than 2 seconds. Neurological: Mental Status: He is alert and oriented to person, place, and time. Psychiatric: Behavior: Behavior is cooperative. 1. Acute bronchitis, unspecified organism (J20.9) 2. Wheezing (R06.2) 3. Acute cough (R05.1) - Persistent cough, postnasal drainage, and wheezing without fever or significant sinus pressure; exam notable for posterior pharyngeal drainage and wheezing. - Start azithromycin (Z-Arturo) as directed. take with food. - Start Prednisone. Take as directed - Start Tessalon Perles (benzonatate) TID PRN for cough. - Advised continuation of cough drops as needed. - Follow-up with PCP or return back to clinic if symptoms persist or worsen. and Recording using [employer] software for draft documentation of the visit was discussed with the patient/authorized agency sales representative; all questions welcomed and answered. Patient/authorized agency sales representative agreed to proceed Differential Diagnoses - Acute bronchitis, viral illness is more likely for the following reason(s): Exam, suggested by HANDP - Pneumonia is less likely for the following reason(s): Exam, HANDP not suggestive Disposition The patient was discharged. Procedures [facility] 02-27-2025 Progress note [facility] 02-27-2025 Progress note Note Date/Time February 27, 2025 3:39pm [facility] [place] [id number] [address] [place] [address] OFFICE VISIT Date of Service: 02/27/25 MR#: [id number] Acct: [id number] Name: EBEN CRUZ Rep #: [id number] : 1945 Provider: Dr. Holden Lacey MD Age/Sex: 79/M [place] [facility] [place]: Signed HPI HPI History of Present Illness Details: The patient presents for evaluation of ischemic cardiomyopathy and symptomatic bradycardia. The patient is an 79-year-old male with a history of ischemic cardiomyopathy, status post gqg-UO-kprkjfrxk myocardial infarction (NSTEMI) in September 2023. His cardiac function has remained significantly reduced despite guideline-directed medical therapy. He is referred for discussion regarding his persistent low ejection fraction and significant bradycardia. The patient reports swelling in his ankles and feet. He notes that he did not experience any symptoms at the time of his myocardial infarction in 2023. Following his NSTEMI on September 18, 2023, which occurred after a planned elective total hip replacement, the patient underwent percutaneous coronary intervention with drug-eluting stent placement to the ostial right coronary artery, ostial left main, and proximal left anterior descending artery. His post-intervention course was complicated by paroxysmal atrial fibrillation. He is maintained on medical therapy including Eliquis, Plavix, atorvastatin, metoprolol succinate 25mg daily, Farxiga, Lasix, and amiodarone 200 mg daily. He has a history of intolerance to Entresto due to cough. An echocardiogram on December 18, 2023, showed an ejection fraction (EF) of 40%. A repeat echocardiogram on August 08, 2024, demonstrated a decline in the ejection fraction to 20% with findings of mild left atrial dilatation and mild to moderate tricuspid regurgitation. A stress test performed on August 26, 2024, showed an EF of 33% with no evidence of ischemia. There was global hypokinesis and fixed defects noted in the anterior and apical lateral cedillo. A Holter monitor performed on October 06, 2024, revealed significant bradycardia, with an average heart rate of 37 bpm and a range of 21-82 bpm. The study showed periods of junctional rhythm and junctional bradycardia. There was no evidence of ventricular tachycardia, but a 10-beat run of accelerated idioventricular rhythm at 83 bpm was captured. Review of systems: CONSTITUTIONAL: Fatigue positive RESPIRATORY: Cough positive CARDIOVASCULAR: Chest pain negative, Edema positive MUSCULOSKELETAL: Joint swelling positive Physical examination: GENERAL APPEARANCE: Patient is an elderly male, alert and in no apparent distress. He is conversant and cooperative with the examination. LUNGS: Lungs are clear to auscultation bilaterally. CARDIAC: Auscultation reveals a regular rhythm. MUSCLES/EXTREMITIES: Bilateral lower extremity edema is present. NEUROLOGICAL: Patient is alert and oriented with clear and coherent speech. PSYCHIATRIC: Affect is appropriate to the situation with a calm mood. Intake Vital Signs 02/10/25 09:51 02/27/25 14:59 Height 5 ft 8 in 5 ft 8 in Weight: 201 lb 6 oz 202 lb BMI 30.6 30.7 BP 138/72 H 106/65 Blood Pressure Location Lt brachial Lt brachial Position Sitting Sitting Respiration 16 18 Pulse 51 L 49 L Pulse Source Monitor Monitor Temp 96.4 F L Pulse Oximetry (%) 100 Oxygen Delivery Method room air Intake Visit Reasons: Congestive heart failure Instructor Hairspring Required: No Accompanied by: Daughter Is patient in pain?: No Allergies sacubitril (From Entresto) Allergy (Mild, Verified 02/27/25 14:59) cough valsartan (From Entresto) Allergy (Mild, Verified 02/27/25 14:59) cough Medications ?Medication ?Instructions ?Recorded ?Confirmed ?Type ascorbic acid (vitamin C) 500 mg 500 mg PO DAILY 30 da ys #30 tabs 10/17/23 02/27/25 Rx tablet metoprolol succinate 25 mg 25 mg PO QHS #0 tabs 02/27/25 Rx tablet,extended release 24 hr furosemide 40 mg tablet 40 mg PO QDAY #90 tabs 05/0602/27/25 Rx apixaban 5 mg tablet (Eliquis) 5 mg PO BID #180 tabs 0 11/17/24 02/27/25 Rx clopidogrel 75 mg tablet 75 mg PO DAILY #90 tabs 08/1202/27/25 Rx dapagliflozin propanediol 10 mg 10 mg PO DAILY #90 tab s 11/17/24 02/27/25 Rx tablet (Farxiga) pantoprazole 40 mg tablet,delayed 40 mg PO DAILY #90 t abs 11/17/24 02/27/25 Rx release spironolactone 25 mg tablet 12.5 mg (1/2 x 25 mg) PO D AILY #45 11/17/24 02/27/25 Rx tabs atorvastatin 40 mg tablet 40 mg PO QHS #90 tabs 02/27/25 Rx polysaccharide iron complex 150 mg 150 mg PO DAILY lucia l as courtesy 02/10/25 02/27/25 Rx iron capsule (Ferrex) for Dr. Palmer #90 caps tamsulosin 0.4 mg capsule 0.4 mg PO BID #180 caps 01/1702/27/25 Rx Ejection fraction %: 20 Have you fallen in the past year?: No PFSH Medical History Atrial fibrillation Bradycardia GERD (gastroesophageal reflux disease) Chronic anemia Valvular heart disease Hyperlipidemia CKD (chronic kidney disease), stage III PAF (paroxysmal atrial fibrillation) History of CVA (cerebrovascular accident) Dyslipidemia CAD (coronary artery disease) Arthritis Hypertension Surgical History H/O hernia repair History of left shoulder replacement Hx of cataract extraction History of total right hip arthroplasty Stented coronary artery (09/26/23) Hx of cardiac catheterization (09/26/23) History of total left hip arthroplasty Family History Mother Diabetes Father CVA (cerebral vascular accident) Brother Alcoholism Sister Breast cancer Social History (Reviewed 02/27/25 @ 15:07 by ROCK Pool adopted: No household members: none housing: house current occupational status: retired 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, 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 dull pain midsternal 08/25. left after a few min) Character: dull Location: mid sternal Palpitations: No Edema: Bilateral (improving) Resp Respiratory: Positive for SOB with activity; Negative for SOB at rest or SOB orthopnea\SOB lying down GI GI: Negative nausea or heartburn Musc Musc: Negative for balance problems Neuro Neuro: Negative for dizziness, lightheadedness, near syncope, syncope or weakness Endo Endo: Negative for fatigue Supplemental Info Supplemental Information Labs: No Data to Display Diagnostics: Electrocardiogram Echocardiogram Stress Test Stress Test Nuclear Medicine Pulmonary: No Data to Display Past Visits: Cardiology Visit 02/27/25 Assessment and Plan Assessment and Plan (1) Heart failure with reduced ejection fraction: Status: Acute Comment: This 79-year-old male has a severe ischemic cardiomyopathy, status post NSTEMI and extensive PCI in September 2023. His left ventricular systolic function remains severely depressed with an LVEF of 20-33% on recent imaging, despite guideline-directed medical therapy (GDMT), including a beta-melissa and SGLT2 inhibitor. His clinical presentation, including lower extremity edema noted on exam, is consistent with decompensated congestive heart failure secondary to his systolicdysfunction. The patient's persistently low LVEF (=35%) more than 90 days post-revascularization and on optimal medical therapy places him at significant risk for sudden cardiac (SCD) due to malignant ventricular arrhythmias. Per current ACC/AHA/HRS guidelines, an implantable cardioverter-defibrillator (ICD) is strongly indicated for primary prevention of SCD. A dual-chamber device is appropriate as his QRS is narrow, and therefore, cardiac resynchronization therapy is not indicated at this time. An extensive discussion was held with thepatient and his daughter regarding the risks, benefits, and alternatives to ICD implantation. Shared decision making for ICD implantation with patient and his daughter. Theyare agreeable to proceed. Plan: Plan: Diagnostics/Labs: Standard pre-operative labs including CBC, BMP, and coagulation panel to be ordered prior to the procedure. Therapeutics/Medications: Proceed with scheduled implantation of a dual-chamber implantable cardioverter-defibrillator (ICD). Continue current GDMT including metoprolol succinate 25 mg daily and Farxiga. Lasix to be continued for management of volume status. Education / Lifestyle: Discussed the rationale for ICD implantation, procedural details, and potential complications including infection, bleeding, hematoma, and pneumothorax. Post-operative care including wound management and left arm activity restrictions for one month was reviewed. Patient and daughter verbalized understanding and consent to proceed. Follow-up / Monitoring: Schedule for ICD implantation. Follow up in clinic approximately 7-10 days post-procedure for a wound check and initial device interrogation. (2) Congestive heart failure: Plan: See #1 above (3) Atrial fibrillation: Status: Chronic Qualifiers: Atrial fibrillation type: paroxysmal Qualified Code(s): I48.0 - Paroxysmal atrial fibrillation Comment: The patient has a history of paroxysmal atrial fibrillation, managed with a hybrid rate and rhythm control strategy. He is at a high risk for thromboembolicevents, with a [id number] score of 5 (C=1 for CHF, H=1 for Hypertension, A2=2 for age >75, V=1 for vascular disease), which confers a significant annual stroke risk. Long-term oral anticoagulation is definitively indicated. His current regimen of amiodarone for rhythm control and metoprolol for rate control is appropriate, especially given his structural heart disease. The planned ICD will provide enhanced monitoring for atrial fibrillation burden. Plan: Plan: Diagnostics/Labs: Will monitor LFTs and TFTs periodically due to long-term amiodarone use. Therapeutics/Medications: Continue Eliquis 5 mg twice daily for stroke risk reduction. Continue amiodarone 200 mg daily for rhythm control. Continue metoprolol succinate 25 mg daily for rate control and as part of GDMT. Education / Lifestyle: Reinforced the critical importance of strict adherence toanticoagulation to prevent stroke. Reviewed bleeding precautions associated withEliquis. Follow-up / Monitoring: Atrial fibrillation burden will be assessed via device interrogations following implantation. (4) Bradycardia: Status: Acute Comment: The patient has severe and symptomatic sinus bradycardia, confirmed on Holter monitoring which revealed an average heart rate of 37 bpm, minimum rate of 21 bpm, and periods of junctional escape rhythm. This profound bradycardia is likely multifactorial, secondary to intrinsic sinus node dysfunction from his underlying ischemic disease and pharmacologically exacerbated by necessary negative chronotropes (metoprolol, amiodarone). The bradycardia significantly limits his cardiac output, particularly in the context of his severely reduced LVEF, and is a clear indication for permanent pacing. This condition also limits the ability to uptitrate his life-prolonging beta-melissa therapy. Plan: Therapeutics/Medications: The bradycardia will be treated with the pacing function of the planned dual-chamber ICD. The device will be programmed to provide atrial-based pacing, ensuring AV synchrony and maintaining a physiologicheart rate (e.g., lower rate limit of 60 bpm). This support will allow for the safe continuation of his essential GDMT. Education / Lifestyle: Explained to the patient that the pacemaker function of his device is painless and will work automatically to prevent his heart rate from dropping too low, which is expected to improve circulation and energy levels. Follow-up / Monitoring: Pacing function, thresholds, and percentage of pacing will be evaluated at all device interrogations. Plan Details Follow Up: 3 Months Coding Level of Care Code Off vis,est,level 5 Diagnoses Heart failure with reduced ejection fraction I50.20 Congestive heart failure I50.9 Paroxysmal atrial fibrillation I48.0 Atrial fibrillation type: paroxysmal Bradycardia R00.1 Coding Level of Care Code Off vis,est,level 5 Diagnoses Heart failure with reduced ejection fraction I50.20 Congestive heart failure I50.9 Paroxysmal atrial fibrillation I48.0 Atrial fibrillation type: paroxysmal Bradycardia R00.1 Clinical Quality Measures Falls Risk Screening/Assistive Devices Have you fallen in the past year?: No Cardiac Ejection fraction %: 20 02/27/25 1539 <Electronically signed by Augusto beverly MD> Date _ Augusto Lacey MD Cosigner Signature: Date (if applicable) CC: Dr. Chelsea Singh MD ~ [facility] Work Phone: 1(154) 973-982105-21-2025 Evaluation note* Diagnosis Onset Date Resolution Status Admit Date Atrial fibrillation chronic October 172024 8:31am Frequent ventricular premature beats chronic November 05, 2024 8:31am Stented coronary artery September 26, 2023 chroni c November 05, 2024 8:31am Acute HFrEF (heart failure with reduced ejection fraction) resolved November 05, 2024 8:31am BPH (benign prostatic hyperplasia) acute February 10 9:45am Heart failure with reduced ejection fraction acute February 10 9:45am Stented coronary artery September 26, 2023 chroni c February 10, 2025 9:45am Establishing care with new doctor, encounter for noneactive January 9:45am CKD (chronic kidney disease) stage 3, GFR 30-59 ml/min noneactive February 10 9:45am Essential hypertension noneactive Au 2024 9:45am [facility] Work Phone: 1(414) 847-394705-21-2025 Evaluation note* Diagnosis Onset Date Resolution Status Admit Date Atrial fibrillation chronic October 172024 8:31am Frequent ventricular premature beats chronic November 05, 2024 8:31am Stented coronary artery September 26, 2023 chroni c November 05, 2024 8:31am Acute HFrEF (heart failure with reduced ejection fraction) resolved November 05, 2024 8:31am BPH (benign prostatic hyperplasia) acute February 10 9:45am Heart failure with reduced ejection fraction acute February 10 025 9:45am Stented coronary artery September 26, 2023 chroni c February 10, 2025 9:45am Scab noneactive February 10 9:45am Screening for depression noneactive February 10, 2025 9:45am Immunization declined noneactive Jan 9:45am Screening for colon cancer noneactiv e February 10, 2025 9:45am Cerumen impaction noneactive February 10, 2025 9:45am Establishing care with new doctor, encounter for noneactive January 9:45am CKD (chronic kidney disease) stage 3, GFR 30-59 ml/min noneactive February 10 9:45am Essential hypertension noneactive [facility] 2024 9:45am Iron deficiency anemia noneactive [facility] 2024 9:45am Paroxysmal atrial fibrillation noneactive February 10 9:45am GERD (gastroesophageal reflux disease) noneactive February 10 9:45am History of CVA (cerebrovascular accident) noneactive [facility] 2024 9:45am [facility] Work Phone: 1(662) 142-734505-21-2025 Evaluation note* Diagnosis Onset Date Resolution Status Admit Date Atrial fibrillation chronic October 172024 8:31am Frequent ventricular premature beats chronic November 05, 2024 8 :31am Stented coronary artery September 26, 2023 chroni c November 05, 2024 8:31am Acute HFrEF (heart failure with reduced ejection fraction) resolved November 05 8:31am BPH (benign prostatic hyperplasia) acute February 10 9:45am Heart failure with reduced ejection fraction acute February 10, 2025 9:45am Stented coronary artery September 26, 2023 chroni c February 10, 2025 9:45am Scab noneactive February 10, 2 025 9:45am Screening for depression noneactive February 10, 2025 9:45am Immunization declined noneactive Jan [facility] 2024 9:45am Screening for colon cancer noneactive February 10 9:45am Cerumen impaction noneactive February 10, 2025 9:45am Establishing care with new doctor, encounter for noneactive February 10, 2025 9:45am CKD (chronic kidney disease) stage 3, GFR 30-59 ml/min noneactive February 10 9:45am Essential hypertension noneactive [facility] 2024 9:45am Iron deficiency anemia noneactive [facility] 2024 9:45am Paroxysmal atrial fibrillation noneactive February 10 9:45am GERD (gastroesophageal reflux disease) noneactive February 10 9:45am History of CVA (cerebrovascular accident) noneactive February 10 9:45am Bradycardia acute February 2:53pm Heart failure with reduced ejection fraction acute Septem christian 2024 2:53pm Atrial fibrillation chronic Septe mber 2024 2:53pm Congestive heart failure noneactive February 27, 2025 2:53pm [facility] Work Phone: 1([phone]) [phone] Instructions* Patient Instructions* Marissa Sorto APRN.AIRPLANE FIRST OFFICER - 08/18/2024 2:09 PM EST GENERAL INFORMATION: Pneumonia is a lung infection caused by bacteria, viruses, or bacteria-like germs. It usually cannot be spread to other people. INSTRUCTIONS: 1. If you are given a prescription for antibiotics, take them as ordered by your doctor until they are all gone. 2. Use a cool-mist humidifier or vaporizer to increase air moisture. This will make it easier for you to breathe. Do not use hot steam. 3. Rest in until your temperature is normal (98.6 F or 37 C) and your chest pain and shortness of breath are gone. 4. Slowly restart your normal activities. You may feel weak and tired for up to six weeks. 5. Drink at least one glass of water or other liquid every hour. This will help thin sputum and make it easier to cough up. 6. If you have chest pain, applying a heating pad or warm compresses for 10 to 20 minutes several times a day to the painful area may lessen the pain. 7. Take several deep breaths and then cough frequently during the day. This will help get rid of the infection. 8. You may take medicines that you can buy without a prescription to treat pain and fever. Use cough medicine only if absolutely necessary as coughing helps clear the infection. CONTACT YOUR DOCTOR IF: 1. Your temperature is over 102 F (39 C). 2. Your chest pain, fever or chills do not get better with medicine in 2-3 days. 3. You develop nausea, vomiting or diarrhea. 4. You are coughing up large amounts of bloody sputum. 5. You have any problems that may be related to the medicine that you are taking (such as rash, itching, swelling, or stomach pain). RETURN TO THE EMERGENCY DEPARTMENT IF: 1. You have a lot of trouble breathing or you have dark or bluish fingernails, toenails, or skin. 2. You have a severe headache, neck stiffness, or feel confused. [facility] History of Present illness Narrative* Justice Quiros RT(R) - 08/18/2024 1:40 PM EST Radiology Service Progress Note PATIENT NAME: Eben Cruz DATE OF SERVICE: August 18, 2024 TIME: 1:34 PM PATIENT IDENTITY VERIFICATION COMPLETED USING TWO (2) IDENTIFIERS: Name and Date of confirmedby patient verbally. FALL SCREENING: Has the patient had 2 falls in the last year or 1 fall with injury or currently using an Ambulatory Assistive Device (Walker, Cane, Wheelchair, Crutches, etc.)? No PATIENT GENDER DATA: Assigned male at PATIENT RELEVANT IMPLANT DATA REVIEWED: Not Applicable PATIENT PRESENTS WITH AN IMPLANTABLE OR ATTACHED SERVICE LOSS CONTROL CONSULTANT: No RADIOLOGY DEPARTMENT: General X-ray: Exam(s) Completed: Chest X-Ray PERIPHERAL IV DATA: Not applicable SIGNED BY: RT Melissa(R) August 18, 2024 1:34 PM [facility]25 NoteHNO ID: [id number] Author: JUSTICE QUIROS RT(R) Service: ? Author Type: Technologist Type: Progress Notes Filed: 08/18/2024 13:35 Note Text: Radiology Service Progress Note PATIENT NAME: Eben Cruz DATE OF SERVICE: August 18, 2024 TIME: 1:34 PM PATIENT IDENTITY VERIFICATION COMPLETED USING TWO (2) IDENTIFIERS: Name and Date of confirmed by patient verbally. FALL SCREENING: Has the patient had 2 falls in the last year or 1 fall with injury or currently using an Ambulatory Assistive Device (Walker, Cane, Wheelchair, Crutches, etc.)? No PATIENT GENDER DATA: Assigned male at PATIENT RELEVANT IMPLANT DATA REVIEWED: Not Applicable PATIENT PRESENTS WITH AN IMPLANTABLE OR ATTACHED SERVICE LOSS CONTROL CONSULTANT: No RADIOLOGY DEPARTMENT: General X-ray: Exam(s) Completed: Chest X-Ray PERIPHERAL IV DATA: Not applicable SIGNED BY: RT Melissa(R) August 18, 2024 1:34 [facility]03-03-2025 NoteHNO ID: [id number] Author: MARISSA SORTO APRN.AIRPLANE FIRST OFFICER Service: ? Author Type: Nurse Practitioner Type: Progress Notes Filed: 08/18/2024 14:16 Note Text: Eben Cruz is a 79 year old male who presents with Cough (Cough, nasal congestion and drainage x 2 weeks) Started 2 weeks ago, now with persistent running nose and congestion, cough Cough Associated symptoms include sore throat. Pertinent negatives include no chest pain, no chills, no shortness of breath and no wheezing. PAST MEDICAL HISTORY Diagnosis Date A-fib ([facility]) CAD (coronary artery disease) Cardiomyopathy ([facility]) Chronic systolic heart failure ([facility]) CVA (cerebral vascular accident) ([facility]) 04/2023 right parietal CVA Essential hypertension HFrEF (heart failure with reduced ejection fraction) ([facility]) NYHA class lll History of cardiac cath 2013 EF 45%, and 50% cx, 30% LAD History of cardiac cath 09/24/2023 Sub-total, heavily calcified Prox CX. Unsuccessful PCI of the sub-total heavily calcified prox LCX. 50% distal LMCA. 50% calcified ostial LAD, 70% calcified ostial D1. 80% heavily calcified ostial and prox RCA. History of cardiac cath 09/26/2023 LM: ostial 50%, distal 80% stenosis. LAD 80% stenosis. Small diagonal 1 with proximal 70% lesion. CX: 100% with no collaterals. RCA: ostial 90% lesion, Mid 30% and distal 50%. History of cardioversion 10/02/2023 successful cardioversion X 1 with 300 J History of echocardiography 04/2019 EF 35-40%. Mod [...] stress test 2018 39 large inf scar History of transesophageal echocardiography (HUSSAIN) 09/30/2023 EF 38%. Left ventricle moderately dilated. Severe global hypokinesis present. Right ventricle mildly dilated with reduced systolic function. Left atrium moderately dilated. Mild to moderate aortic valve stenosis. AV area 1.1 cm2. No aortic regurgitation. Moderated MR. Mild TR. Mixed hyperlipidemia NSTEMI (non-ST elevated myocardial infarction) ([facility]) 09/23/2023 Stented coronary artery 09/26/2023 NORIS to RCA. NORIS to LM and NORIS to LAD ACTIVE PROBLEM LIST Cardiomyopathy ([facility]) History of Echocardiography Cad (Coronary Artery Disease) History of Cardiac Cath History of Stress Test Mixed Hyperlipidemia Essential Hypertension Non-Smoker Sob (Shortness of Breath) Dizziness History of Holter Monitoring Hfref (Heart Failure With Reduced Ejection Fraction) ([facility]) Nstemi (Non-St Elevated Myocardial Infarction) ([facility]) A-Fib ([facility]) Current Outpatient Medications Medication Sig Dispense Refill ELIQUIS 5 mg tab(s) 5 mg. atorvastatin (LIPITOR) 40 mg tablet 40 mg. clopidogrel (PLAVIX) 75 mg tablet Take 75 mg by mouth. dapagliflozin propanediol (FARXIGA) 10 mg tablet Take 1 tablet by mouth once daily. furosemide (LASIX) 40 mg tablet [address] (PROTONIX) 40 mg tablet Take 40 mg by mouth. melatonin 10 mg cap Take by mouth. spironolactone (ALDACTONE) 25 mg tablet 0 Refill(s) tamsulosin (FLOMAX) 0.4 mg TAKE 2 CAPSULES BY MOUTH EVERY DAY FOR 90 DAYS Amiodarone HCl 400 mg tablet Take 400 mg by mouth. metoprolol succinate ER (TOPROL XL) 25 mg 24 hr tablet TAKE 1 TABLET AT BEDTIME 90 tablet 2 simvastatin (ZOCOR) 10 mg tablet TAKE 1 TABLET AT BEDTIME 90 tablet 0 ascorbic acid, vitamin C, (VITAMIN C) 500 mg tablet Take 500 mg by mouth once daily. MAGNESIUM OXIDE ORAL Take 1,000 mg by mouth. Take every 2-3 days saw palmcatrachita frt xtr-zinc picoli 80-15 mg cap Take 1 capsule by mouth twice daily. No current facility-administered medications for this visit. Social History Tobacco Use Smoking status: Never Passive exposure: Never Smokeless tobacco: Never Vaping Use Vaping status: Never Used Substance Use Topics Alcohol use: Not Currently Drug use: Never Alcohol Use: Not Currently Tobacco Use: Never FAMILY HISTORY Problem Relation Age of Onset Diabetes Mother Stroke Father Cancer Sister lung Heart disease Brother Diabetes Brother Stroke Brother Review of Systems Constitutional: Negative for chills, fever and malaise/fatigue. HENT: Positive for congestion and sore throat. Respiratory: Positive for cough and sputum production. Negative for shortness of breath and wheezing. Cardiovascular: Negative for chest pain, palpitations and leg swelling. Gastrointestinal: Negative. Genitourinary: Negative. Skin: Negative. All other systems reviewed and are negative. BP 109/64 Pulse 56 Temp 97.8 Resp 18 Wt 196 lb (88.9kg) SpO2 95% Physical Exam (more content not included)...[facility]03-03-2025 History of Present illness Narrative* Marissa Sorto, PAINT TECHNICIAN.AIRPLANE FIRST OFFICER - 08/18/2024 1:13 PM EST Eben Cruz is a 79 year old male who presents with Cough (Cough, nasal congestion and drainage x 2 weeks) Started 2 weeks ago, now with persistent running nose and congestion, cough Cough Associated symptoms include sore throat. Pertinent negatives include no chest pain, no chills, no shortness of breath and no wheezing. PAST MEDICAL HISTORY Diagnosis Date A-fib ([facility]) CAD (coronary artery disease) Cardiomyopathy ([facility]) Chronic systolic heart failure ([facility]) CVA (cerebral vascular accident) ([facility]) 04/2023 right parietal CVA Essential hypertension HFrEF (heart failure with reduced ejection fraction) ([facility]) NYHA class lll History of cardiac cath 2013 EF 45%, and 50% cx, 30% LAD History of cardiac cath 09/24/2023 Sub-total, heavily calcified Prox CX. Unsuccessful PCI of the sub-total heavily calcified prox LCX.50% distal LMCA. 50% calcified ostial LAD, 70% calcified ostial D1. 80% heavily calcified ostial and prox RCA. History of cardiac cath 09/26/2023 LM: ostial 50%, distal 80% stenosis. LAD 80% stenosis. Small diagonal 1 with proximal 70% lesion. CX: 100% with no collaterals. RCA: ostial 90% lesion, Mid 30% and distal 50%. History of cardioversion 10/02/2023 successful cardioversion X 1 with 300 J History of echocardiography 04/2019 EF 35-40%. Mod LV cavity enlargement, mod left atrial and mild right atrial enlargement, mild MR, mild TR, normal right-sided systolioc pressure. History of Holter monitoring 03/05/2014 48-Hour event monitor secondary to palpitations was completed. Demonstrated sinus rhythm from 73bpmto 154bpm. Multiple runs of wide-complex arrhythmias were seen. 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 History of stress test 2018 39 large inf scar History of transesophageal echocardiography (HUSSAIN) 09/30/2023 EF 38%. Left ventricle moderately dilated. Severe global hypokinesis present. Right ventricle mildly dilated with reduced systolic function. Left atrium moderately dilated. Mild to moderate aortic valve stenosis. AV area 1.1 cm2. No aortic regurgitation. Moderated MR. Mild TR. Mixed hyperlipidemia NSTEMI (non-ST elevated myocardial infarction) ([facility]) 09/23/2023 Stented coronary artery 09/26/2023 NORIS to RCA. NORIS to LM and NORIS to LAD ACTIVE PROBLEM LIST Cardiomyopathy ([facility]) History of Echocardiography Cad (Coronary Artery Disease) History of Cardiac Cath History of Stress Test Mixed Hyperlipidemia Essential Hypertension Non-Smoker Sob (Shortness of Breath) Dizziness History of Holter Monitoring Hfref (Heart Failure With Reduced Ejection Fraction) ([facility]) Nstemi (Non-St Elevated Myocardial Infarction) ([facility]) A-Fib ([facility]) Current Outpatient Medications Medication Sig Dispense Refill ELIQUIS 5 mg tab(s) 5 mg. atorvastatin (LIPITOR) 40 mg tablet 40 mg. clopidogrel (PLAVIX) 75 mg tablet Take 75 mg by mouth. dapagliflozin propanediol (FARXIGA) 10 mg tablet Take 1 tablet by mouth once daily. furosemide (LASIX) 40 mg tablet [address] (PROTONIX) 40 mg tablet Take 40 mg by mouth. melatonin 10 mg cap Take by mouth. spironolactone (ALDACTONE) 25 mg tablet 0 Refill(s) tamsulosin (FLOMAX) 0.4 mg TAKE 2 CAPSULES BY MOUTH EVERY DAY FOR 90 DAYS Amiodarone HCl 400 mg tablet Take 400 mg by mouth. metoprolol succinate ER (TOPROL XL) 25 mg 24 hr tablet TAKE 1 TABLET AT BEDTIME 90 tablet 2 simvastatin (ZOCOR) 10 mg tablet TAKE 1 TABLET AT BEDTIME 90 tablet 0 ascorbic acid, vitamin C, (VITAMIN C) 500 mg tablet Take 500 mg by mouth once daily. MAGNESIUM OXIDE ORAL Take 1,000 mg by mouth. Take every 2-3 days saw palmto frt xtr-zinc picoli 80-15 mg cap Take 1 capsule by mouth twice daily. No current facility-administered medications for this visit. Social History Tobacco Use Smoking status: Never Passive exposure: Never Smokeless tobacco: Never Vaping Use Vaping status: Never Used Substance Use Topics Alcohol use: Not Currently Drug use: Never Alcohol Use: Not Currently Tobacco Use: Never FAMILY HISTORY Problem Relation Age of Onset Diabetes Mother Stroke Father Cancer Sister lung Heart disease Brother Diabetes Brother Stroke Brother Review of Systems Constitutional: Negative for chills, fever and malaise/fatigue. HENT: Positive for congestion and sore throat. Respiratory: Positive for cough and sputum production. Negative for shortness of breath and wheezing. Cardiovascular: Negative for chest pain, palpitations and leg swelling. Gastrointestinal: Negative. Genitourinary: Negative. Skin: Negative. All other systems reviewed and are negative. BP 109/64 Pulse 56 Temp 97.8 Resp 18 Wt 196 lb (88.9kg) SpO2 95% Physical Exam Vitals and nursing note reviewed. Constitutional: General: He is not in acute distress. Appearance: Normal appearance. He is not ill-appearing. HENT: Right Ear: Tympanic membrane normal. Left Ear: Tympanic membrane normal. Nose: Rhinorrhea present. No congestion. Mouth/Throat: Pharynx: No oropharyngeal exudate or posterior oropharyngeal erythema. Eyes: Extraocular Movements: Extraocular movements intact. Conjunctiva/sclera: Conjunctivae normal. Pupils: Pupils are equal, round, and reactive to light. Cardiovascular: Rate and Rhythm: Normal rate and regular rhythm. Pulses: Normal pulses. Heart sounds: Normal heart sounds. No murmur heard. Pulmonary: Effort: Pulmonary effort is normal. No respiratory distress. Breath sounds: No stridor. Rales present. No wheezing or rhonchi. Comments: LLL Chest: Chest wall: No tenderness. Abdominal: General: Abdomen is flat. Palpations: Abdomen is soft. Skin: General: Skin is warm and dry. Capillary Refill: Capillary refill takes less than 2 seconds. Neurological: General: No focal deficit present. Mental Status: He is alert and oriented to person, place, and time. ASSESSMENT/PLAN: 1. Subacute cough - ICD9: 786.2, ICD10: R05.2 (primary diagnosis) - XR CHEST 2V FRONTAL/LAT - FLUTICASONE PROPIONATE 50 MCG/ACTUATION NASAL SPRAY,SUSPENSION - ALBUTEROL SULFATE HFA 90 MCG/ACTUATION AEROSOL INHALER - BENZONATATE 100 MG CAPSULE - DOXYCYCLINE MONOHYDRATE 100 MG TABLET - AMOXICILLIN 875 MG-POTASSIUM CLAVULANATE 125 MG TABLET 2. Community acquired pneumonia of left lower lobe of lung - ICD9: 486, ICD10: J18.9 Was reviewed appears as if a small pleural effusion on the left , well as increased interstitial markings in that left lower lobe concerning for community-acquired pneumonia. Went over medications below Red flag symptoms and cautions. I like him to follow-up with his primary care in the next week for evaluation. Questions answered patient was discharged - FLUTICASONE PROPIONATE 50 MCG/ACTUATION NASAL SPRAY,SUSPENSION - ALBUTEROL SULFATE HFA 90 MCG/ACTUATION AEROSOL INHALER - BENZONATATE 100 MG CAPSULE - DOXYCYCLINE MONOHYDRATE 100 MG TABLET - AMOXICILLIN 875 MG-POTASSIUM CLAVULANATE 125 MG TABLET Marissa Sorto APRN.GELY This note was partially generated using QPD voice recognition system, and there may be some incorrect words, spellings, and punctuation that were not noted in checking the note before saving. documented [facility] Evaluation note* Diagnosis Onset Date Resolution Status Admit Date Acute HFrEF (heart failure with reduced ejection fraction) chronic August 18, 2024 9:54am Atrial fibrillation chronic August 18, 2024 9:54am Frequent ventricular premature beats chronic August 18, 2024 9:54am Stented coronary artery September 26, 2023 chroni c August 18, 2024 9:54am Acute HFrEF (heart failure with reduced ejection fraction) chronic November 05, 2024 8 :31am Atrial fibrillation chronic October 172024 8:31am Frequent ventricular premature beats chronic November 05, 2024 8 :31am Stented coronary artery September 26, 2023 chroni c November 05, 2024 8:31am [facility] Work Phone: 1(562) 536-794201-08-2025 [facility] Medical Records Department [address] [place] [address] Discharge Summary 06/25/24 1233 MR#: [id number] Acct: [id number] Name: EBEN CRUZ Rep #: [id number] : 1945 79 From: Chet Edmonds MD PCP: Care Physician,No Primary Status:ADM ZOË Location: [place] [address] Providers Date of Admission: 06/23/24 Date of Discharge: 06/25/24 Primary Care Physician: No Primary Care Phys Consultations 06/23/24 20:45 Consult: Cardiology Routine Consulting Provider: Gregory Kruse Reason for Consult: NSTEMI w/ carbon monoxide poisoning, h/o CAD w/ stenting and HFrEF EMERGENT Consult: No MD Notified: Yes Date Notified: 06/24/24 Time Notified: 06:40 Method of Notification: Text Reason For Visit: ELEVATED TROPONIN Diagnosis Discharge Diagnosis (1) Accidental poisoning by carbon monoxide: Status: Acute Code(s): T58.91XA - Toxic effect of carbon monoxide from unspecified source, accidental (unintentional), initial encounter Qualifiers: Encounter type: initial encounter Qualified Code(s): T58.91XA - Toxic effect of carbon monoxide from unspecified source, accidental (unintentional), initial encounter (2) Elevated troponin: Status: Acute Code(s): R79.89 - Other specified abnormal findings of blood chemistry Plan Patient is an 79-year-old lady with history of coronary artery disease with previous non-STEMI with PCI who presented with lightheadedness. Patient was found to have elevated troponin consistent with acute non-STEMI admitted to to a monitored bed for subsequent management 1. Acute non-STEMI ??? Patient has been admitted to a monitored bed treatment initiated per protocol with atorvastatin clopidogrel metoprolol. Patient was not started on systemic anticoagulation since patient is already on apixaban. Consult placed to cardiology. Decisions regarding cardiac cath and possible intervention deferred to cardiology 06/25/2024; patient's 2D echo performed on 06/24/2024 demonstrated show reduction in his global LV systolic dysfunction. His EF previously was 40% on this repeat it was down to 20%. Cardiology recommends repeating echo as outpatient in 6 to 8 weeks when patient recovers from his carbon monoxide poisoning 2. Accidental carbon monoxide poisoning ??? Admitted for symptom management. Ordered serial carboxyhemoglobin level for monitoring plan is to discharge patient when his levels 4 within normal limits. 3. Coronary artery disease ??? With previous PCI patient is on guideline directed medical therapy 4. Presyncope ??? Suspected to be secondary to above being monitored on continuous telemetry 5. Paroxysmal atrial fibrillation ??? Rate controlled on systemic anticoagulation with apixaban 6. Chronic congestive heart failure with reduced ejection fraction ??? Patient has known EF of 40% based on echo obtained on 09/2023 ??? Repeat echo demonstrated significant reduction in patient EF to 20%. Patient apparently did not tolerate Entresto and ARB due to persistent cough plan is for repeat echo in 6 to 8 weeks as outpatient 7. Hypertension ??? Blood pressure controlled, home medications continued with dose adjustment as needed 8. Dyslipidemia ???Patient is on statin therapy, continued at home dose 9. GERD ??? On PPI 10. BPH with lower urinary obstructive symptoms - Patient treated with tamsulosin 11. Chronic kidney disease stage III ??? Kidney function at baseline 12. DVT prophylaxis Patient is on apixaban Time spent in the patient's overall evaluation,decision-making process, review of diagnostic data, adjustment of management, discussion with other providers, nursing nursing and ancillary staff involved in patient's care documentation 38 Minutes Medications at Discharge Home Medications apixaban 5 mg tablet (Eliquis) 5 mg PO BID 30 days #60 tabs 10/17/23 ascorbic acid (vitamin C) 500 mg tablet 500 mg PO DAILY 30 days #30 tabs 10/17/23 atorvastatin 40 mg tablet 40 mg PO QHS #0 tabs 10/17/23 clopidogrel 75 mg tablet 75 mg PO DAILY #0 tabs 10/17/23 metoprolol succinate 25 mg tablet,extended release 24 hr 25 mg PO QHS #0 tabs 10/17/23 pantoprazole 40 mg tablet,delayed release 40 mg PO DAILY 30 days #30 tabs 10/17/23 polysaccharide iron complex 150 mg iron capsule (Ferrex) 150 mg PO DAILY 30 days #30 caps 10/17/23 spironolactone 25 mg tablet 12.5 mg (1/2 x 25 mg) PO DAILY 30 days #15 tabs 10/17/23 dapagliflozin propanediol 10 mg tablet (Farxiga) 10 mg PO DAILY #30 tabs 10/19/23 furosemide 40 mg tablet 40 mg PO QDAY #90 tabs 05/06/24 tamsulosin 0.4 mg capsule 0.4 mg PO BID 06/23/24 Physical Exam Narrative GENERAL: cooperative HEENT: Atraumatic; normocephalic EYES; Anicteric, Normal Conjunctiva NECK; supple, normal thyroid, RESPIRATORY: Diminished to auscultation CARDIOVASCULAR: Regular S1 S2, GI: soft, normoactive bowel (more content not included)...[facility]01-06-2025 Evaluation note* Diagnosis Onset Date Resolution Status Admit Date CAD (coronary artery disease) acute June 23, 2024 4:56pm Heart failure with reduced ejection fraction acute June 23 4:56pm Hypercholesterolemia acute pepper2024 4:56pm long term current use of anticoagulant therapy acute June 4:56pm Acute HFrEF (heart failure w ith reduced ejection fraction) chronic 2024 4:56pm Atrial fibrillation chronic 2024 4:56pm Stented coronary artery September 26, 2023 chroni c June 23, 2024 4:56pm Accidental poisoning by carb on monoxide resolved June 23 4:56pm Atrial fibrillation with rap id ventricular response resolved June 4:56pm Elevated troponin resolved June 23, 2024 4:56pm Acute HFrEF (heart failure w ith reduced ejection fraction) chronic 2024 10:42am Atrial fibrillation chronic 2024 10:42am Frequent ventricular prematu re beats chronic June 27 10:42am Stented coronary artery September 26, 2023 chroni c June 27, 2024 10:42am Acute HFrEF (heart failure w ith reduced ejection fraction) chronic August 18, 2024 9:54am Atrial fibrillation chronic August 18, 2024 9:54am Frequent ventricular prematu re beats chronic August 18, 2024 9:54am Stented coronary artery September 26, 2023 chroni c August 18, 2024 9:54am [facility] Work Phone: [phone] 131-211911-15-2024 Note. MICRO - Microbiology PROCEDURE: Urine Culture [*1] SOURCE: Urine, Clean Catch BODY SITE: COLLECTED DATE/TIME: 05/01/2024 17:28 EST RECEIVED DATE/TIME: 05/01/2024 19:21 EST START DATE/TIME: 05/01/2024 19:21 EST FREE TEXT SOURCE: FINAL REPORTS Final Report [] Verified Date/Time/Personnel: 05/02/2024 14:27 EST 10,000 - 50,000 cfu/ml Mixed growth consistent with normal urogenital donny. Performing Locations *1: This test was performed at: [facility], [address] [place] [address], [phone] , [facility]05-02-2024 Discharge summary Author David Palmer [facility] October 18, 2023 4:07pm Note Date/Time October 17, 2023 9:05pm [facility] Medical Records Department [address] [place] [address] Discharge Summary 10/17/232103 MR#: [id number] Acct: [id number] Name: EBEN CRUZ Rep #:[id number] : 1945 78 From: Davdi Palmer MD PCP: Dr. Iwona Stewart MD Status:ADM IN Location: [facility] TCU19-1 Providers Date of Admission: 10/05/23 Primary Care Physician: Dr. Iwona Stewart MD Consultations 10/10/23 19:34 Consult: Gastroenterology Routine Consulting Provider: Jose Mckinney Reason for Consult: Blood in stool, anemia EMERGENT Consult: No Notified: Yes Date Notified: 10/10/23 Time Notified: 11:23 Method of Notification: Text Reason For Visit: NSTEMI/AFIB RVR Diagnosis Discharge Diagnosis (1) Debility: Status: Acute Code(s): R53.81 - Other malaise (2) NSTEMI (non-ST elevated myocardial infarction): Status: Acute Code(s): I21.4 - Non-ST elevation (NSTEMI) myocardial infarction (3) CAD (coronary artery disease): Status: Acute Code(s): I25.10 - Atherosclerotic heart disease of [place] coronary artery without angina pectoris (4) Acute HFrEF (heart failure with reduced ejection fraction): Status: Acute Code(s): I50.21 - Acute systolic (congestive) heart failure (5) Atrial fibrillation: Status: Acute Code(s): I48.91 - Unspecified atrial fibrillation (6) Pleural effusion, left: Status: Acute Code(s): J90 - Pleural effusion, not elsewhere classified (7) Hypertension: Status: Chronic Code(s): I10 - Essential (primary) hypertension (8) Hyperlipidemia: Status: Acute Code(s): E78.5 - Hyperlipidemia, unspecified (9) Insomnia: Status: Acute Code(s): G47.00 - Insomnia, unspecified (10) Stroke: Status: Acute Code(s): I63.9 - Cerebral infarction, unspecified (11) Stenosis of right carotid artery: Status: Acute Code(s): I65.21 - Occlusion and stenosis of right carotid artery Plan 78 year old male with below past medical history hospitalized for NSTEMI, underwent stents x 3, complicated by acute HFrEF (EF 15%), afib/aflutter s/p DCCV, left pleural effusion requiring thoracentesis, admitted to TCU with debility, here for rehabilitation, strengthening, prior to discharge home alone. * Debility - PT/OT. * Pain - Tylenol 1000mg q6 prn pain (1-10). * Bowel - Miralax 17gm daily, senna/colace 1 tablet bid prn. * Adult immunization - Administer pneumonia vaccine, covid vaccine, flu vaccine as appropriate * DVT prophylaxis - Eliquis 5mg bid. * Atrial fibrillation - Metoprolol succinate 50mg po qhs, Amiodarone 400mg daily thru 11/05/2023, then 200mg daily, Eliquis 5mg bid. * Hyperlipidemia - Atorvastatin 40mg qhs. * Coronary artery disease s/p stents x 3 - Metoprolol succinate 50mg qhs, Eliquis 5mg bid, Plavix 75mg daily. * HFrEF - Metoprolol succinate 50mg qhs, Entresto intolerable, Jardiance 25mg daily, Spironolactone 12.5mg daily, Furosemide 20mg daily prn. * Insomnia - Melatonin 10mg qhs prn. * GERD - Pantoprazole 40mg daily. * Zinc deficiency - Zinc 50mg daily. Medications at Discharge Home Medications acetaminophen 500 mg tablet 1,000 mg (2 x 500 mg) PO Q6H PRN PRN Pain Score 1- 10#0 tabs 10/17/23 amiodarone 200 mg tablet 200 mg PO DAILY 30 days #30 tabs 10/17/23 apixaban 5 mg tablet (Eliquis) 5 mg PO BID 30 days #60 tabs 10/17/23 ascorbic acid (vitamin C) 500 mg tablet 500 mg PO DAILY 30 days #30 tabs 10/17/23 atorvastatin 40 mg tablet 40 mg PO QHS #0 tabs 10/17/23 clopidogrel 75 mg tablet 75 mg PO DAILY #0 tabs 10/17/23 empagliflozin 25 mg tablet (Jardiance) 25 mg PO DAILY 30 days #30 tabs 10/17/23 furosemide 40 mg tablet 40 mg PO DAILY 30 days #30 tabs 10/17/23 metoprolol succinate 25 mg tablet,extended release 24 hr 25 mg PO QHS #0 tabs 10/17/23 pantoprazole 40 mg tablet,delayed release 40 mg PO DAILY 30 days #30 tabs 10/17/23 polysaccharide iron complex 150 mg iron capsule (Ferrex) 150 mg PO DAILY 30 days#30 caps 10/17/23 spironolactone 25 mg tablet 12.5 mg (1/2 x 25 mg) PO DAILY 30 days #15 tabs 10/17/23 tamsulosin 0.4 mg capsule 0.4 mg PO DAILY@1730 30 days #30 caps 10/17/23 Hospital Course Operations - (See below.) Procedures Colonoscopy and EGD Summary of Care Provided Minutes Spent on Discharge: 35 Hospital Course: 78 year old male with below past medical history hospitalized for NSTEMI, underwent stents x 3, complicated by acute HFrEF (EF 15%), afib/aflutter s/p DCCV, left pleural effusion requiring thoracentesis, admitted to TCU with debility, here for rehabilitation, strengthening, prior to discharge home alone. 10/12/2023 Dr. Mckinney EGD: Impressions : - Normal esophagus. 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 Treated with a heater probe. - Two duodenal polyps. Resected and retrieved. 10/12/2023 Dr. Mckinney colonoscopy: Impressions : - Preparation of the colon was fair. - Diverticulosis in the recto-sigmoid colon and in the sigmoid colon. - Six 1 to 2 mm polyps in the sigmoid colon, at the hepatic flexure and in the cecum, removed with a cold snare. Resected and retrieved. Clips were placed. Clip animal science instructor: Mobule. - Three non-bleeding colonic angiodysplastic lesions. Treated with a heater probe. - One 3 mm polyp in the sigmoid colon, removed with a jumbo cold forceps. Resected and retrieved. Treated with a heater probe. Discharge home alone 10/21/2023, [facility] PT/OT/SN. Physical Exam Const alert General Appearance: cooperative HEENT normocephalic Eyes PERRL and EOMs intact bilaterally Neck supple, no JVD and no carotid bruits Chest Chest Narrative: Life Vest. Resp normal respiratory effort, normal air movement and clear to auscultation bilaterally Cardio regular rate and regular rhythm GI normal to inspection, nondistended, normoactive bowel sounds, non-tender and non-distended Extremity normal capillary refill General Extremity: Negative for edema Skin no rashes or lesions noted General Skin Exam: no breakdown Psych affect normal Appearance: appropriate Weight / BMI Weight Weight: 91.923 kg Body Mass Index (BMI) 29.9 ABG / Lab / Microbiology Data 10/13/23 06:32 10/11/23 05:28 Microbiology: Microbiology 10/07/23 13:25 Stool Stool Occult Blood (DANNIELLE) - Final Occult Blood Positive D/C Instructions Discharge Diet: No restrictions Discharge Activity: Return to Normal Activity, May Shower and Use Walker Weight Bearing Status: Weight bearing as tolerated Call your doctor if you observe: Fever of 101 or Higher, Inability to urinate, Inability to have a bowel movement, Shortness of breath, Dizziness, Fainting spells, Swelling in the ankles, Chest pain and Uncontrolled pain Additional Instructions: Discharge home alone 10/21/2023, [facility] PT/OT/SN. Please Follow Up With: [facility] When: As scheduled. Meaningful Use Info Meaningful Use Meaningful Use Diagnoses (Choose all that apply): AMI AMI/Post PCI/Angioplasty Aspirin given w/in 24hrs of arrival?: Yes ASA at discharge?: Yes Statins at discharge?: Yes Edel/ARB at discharge?: No Reason Edel/ARB not ordered:: Not indicated Beta Melissa at discharge?: Yes Done w/ Acute OK measure.: Yes Documented LVEF (%): 15 Ischemic Stroke Statin Dosing Therapy Reference: STATIN DOSE THERAPY REFERENCE: * Patients > 75 years receive moderate or high dose statin therapy. * Patients 75 years or YOUNGER should receive HIGH intensity statin dose unless contraindicated. You will be required to document reason for non-treatment if statin daily dose does not meet guidelines. HIGH DOSE STATIN THERAPY DAILY Atorvastatin > than or = to 40 mg Rosuvastatin > than or = to 20 mg Amlodipine + Atorvastatin > than or = to 2.5/40 mg Ezetimibe + Simvastatin 10/80 mg Simvastatin 80mg Discharge Plan Admission Admit Date/Time: 10/05/23 18:45 Primary Reason for Your Visit: Debility. Attending Provider: David Palmer Chi Primary Care Provider: Iwona Stewart Consulting Providers: Jose Mckinney Instructions Additional Instructions / Restrictions: Discharge home alone 10/21/2023, [facility] PT/OT/SN. Discharge Orders/Prescriptions Prescriptions: New furosemide 40 mg Tablet 40 mg PO DAILY 30 Days Qty: 30 0RF atorvastatin 40 mg Tablet 40 mg PO QHS Qty: 0 0RF amiodarone 200 mg Tablet 200 mg PO DAILY 30 Days Qty: 30 0RF polysaccharide iron complex [Ferrex 150] 150 mg iron Capsule 150 mg PO DAILY 30 Days Qty: 30 0RF clopidogrel 75 mg Tablet 75 mg PO DAILY Qty: 0 0RF acetaminophen 500 mg Tablet 1,000 mg PO Q6H PRN PRN (Reason: Pain Score 1-10) Qty: 0 0RF spironolactone 25 mg Tablet 12.5 mg PO DAILY 30 Days Qty: 15 0RF ascorbic acid (vitamin C) 500 mg Tablet 500 mg PO DAILY 30 Days Qty: 30 0RF tamsulosin 0.4 mg Capsule 0.4 mg PO DAILY@1730 30 Days Qty: 30 0RF pantoprazole 40 mg Tablet,Delayed Release (Dr/Ec) 40 mg PO DAILY 30 Days Qty: 30 0RF metoprolol succinate 25 mg Tablet Extended Release 24 Hr 25 mg PO QHS Qty: 0 0RF Eliquis 5 mg Tablet 5 mg PO BID 30 Days Qty: 60 0RF Jardiance 25 mg Tablet 25 mg PO DAILY 30 Days Qty: 30 0RF Discontinued atorvastatin 40 mg tablet 40 mg PO QHS Qty: 90 3RF hydrocodone-acetaminophen 5-325 mg tablet 1 tab PO Q6H PRN (Reason: hip pain) Patient Comments: TAKE 1 TABLET BY MOUTH EVERY 6 HOURS FOR 7 DAY(S) NEEDED FOR PAIN melatonin 10 mg capsule 10 mg PO QHS acetaminophen 500 mg capsule 1,000 mg PO Q6H PRN (Reason: pain) spironolactone [Aldactone] 25 mg tablet 12.5 mg PO DAILY polysaccharide iron complex [Ferrex 150] 150 mg iron capsule 150 mg PO DAILY Jardiance 25 mg tablet 25 mg PO DAILY furosemide [Lasix] 40 mg tablet 40 mg PO DAILY nystatin 100,000 unit/gram powder 1 applic topical BID pantoprazole [Protonix] 40 mg tablet,delayed release (DR/EC) 40 mg PO DAILY tamsulosin [Flomax] 0.4 mg capsule 0.4 mg PO DAILY doxepin 10 mg capsule 10 mg PO QHS amiodarone 400 mg tablet 400 mg PO DAILY Eliquis 5 mg tablet 5 mg PO BID Hold Instructions: per mar Patient Comments: Has been on hold since 10/07/23 doxycycline monohydrate 100 mg capsule 100 mg PO BID clopidogrel [Plavix] 75 mg tablet 75 mg PO DAILY Rx Instructions: start taking on September metoprolol succinate 25 mg tablet extended release 24 hr 50 mg PO DAILY Qty: 180 0RF Referrals / Follow Up: Iwona Stewart MD [Primary Care Provider] - Disposition Disposition (needs filled in before D/C Order can be placed): Home Health Service 10/17/232114 <Electronically signed by David Palmer MD> Cosigner Signature (if applicable): CC: Dr. Iwona Stewart MD; Dr. David Palmer MD~ Signed ADDENDUM by Dr. David Palmer MD on 10/18/23 at 1607 Addendum Discharge home alone 10/20/2023, [facility] PT/OT/SN. 10/18/23 1607<Electronically signed by David Palmer MD> Cosigner Signature (if applicable): cc: Dr. Iwona Stewart MD; Dr. David Palmer MD ~* Signed [facility] Work Phone: 1(864) 361-623504-25-2024 Consult note Author Jose Friend [facility] October 11, 2023 6:12pm Note Date/Time October 11, 2023 6:0 7pm [facility] Medical Records Department [address] [place] [address] Consultation - GI 10/11/23 1803 MR#: [id number] Acct: [id number] Name: EBEN CRUZ Rep #:[id number] : 1945 78 From: Jose Friend DO PCP: Dr. Iwona Stewart MD Status:ADM IN Location: TCU U19-1 HPI Consult Data Date of Consult: 10/11/23 HPI Narrative Reason for Consultation: Anemia and fecal occult positive stools HPI Narrative: EBEN CRUZ, is a 78 M who presented as a direct transfer from [facility] for an NSTEMI on 09/23/2023. [facility] planned elective total hip replacement with Dr. Schreiber. The procedure was noted to be fairly complicated and required wound VAC placement. 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 Skilled rehab was recommended for discharge and the patient was in the process of transitioning to the [facility] TCU on 09/22/2023 however on the morning of 09/23/2023 he became acutely short of breath and his vital signs were were stable and he was not hypoxic however stat labs were ordered and he was found tohave a markedly elevated D-dimer at 2557 and a troponin of 6365. EKG at that time showed sinus tachycardia with ST segment depressions and no previous for comparison. CTA of the chest was negative for PE and showed only small bilateral pleural effusions. Given his troponin elevation and the concern for an NSTEMI he was transferred here for further management. Upon arrival cardiology was consulted and plan wasfor catheterization which was done today on 09/24/2023 and noted subtotal heavy calcified proximal left circumflex that was unable to be crossed with a wire, 50% distal LMCA, 50% calcified ostial LAD, 70% calcified ostial D1, and 80% heavily calcified ostial and proximal RCA. Unsuccessful PCI of the subtotal heavily calcified proximal left circumflex wasattempted and medical therapy was recommended however I did discuss the case with Dr. Jackman and he felt that transfer to tertiary center may be required and would like to discuss it with tertiary box sealing inspector. Shortly after he returned from his cardiac catheterization at which time he was noted to be hypoxic with oxygen saturations at 79% on room air. He was placed on a nonrebreather with improvement in his oxygen saturations and cardiology was called to the bedside. A stat echocardiogram was obtained and found to show an EF of 25% with normal LV size, lateral wall in particular appeared to be severely hypokinetic with mild to moderate mitral valve insufficiency. He was maintained on BiPAP and given some IV fluids. ABG/chest x-ray/BNP were obtained and found to be stable without any acute etiology. Clinically he improved and had been weaned to room air. Lower extremity Dopplers were done and showed no DVT. The intent was to perform a CTA of his chest here given his decompensation after cardiac catheterization however we wanted to make sure that his renal function was stable after his cardiac catheterization with a dye load and get it on 09/25/2023. He was transferred for complex PCI at [facility]. Dr. Nichole performed NORIS x 3 to LM, LAD, RCA. Decompensated heart failure, atrial fibrillation/atrial flutterstatus post DCCV. On 09/30/2023 Echo EF 15%, 2+ MR, Mild . On 10/03/2023 Worsening SOB. A thoracentesis planned for large left pleural effusion. He wastreated medically He was started on these medications torsemide 10mg daily, Spironolactone, continue Metoprolol succinate 75mg daily. Eliquis 5mg bid, Metoprolol succinate 75mg daily, Amiodarone 400mg bid for atrial fibrillation. 10/05/2023 Life Vest and was admitted to TCU with debility, here for rehabilitation, strengthening, prior to discharge home alone. I was consulted to see him because his hemoglobin has been dropping and he is fecal occult positive along with him never having a colonoscopy in the past. [facility] Medical History (Updated 10/05/23 @ 20:[address] David Palmer MD) Arthritis CAD (coronary artery disease) Dyslipidemia History of CVA (cerebrovascular accident) Hypertension Leaky heart valve Home Medications hydrocodone-acetaminophen 5-325mg 5mg-325mg 1 tab PO Q6H PRN hip pain 04/27/23 [History Last Taken 04/27/23 06:30] atorvastatin 40 mg tablet 40 mg PO QHS cholesterol #90 tabs 05/14/23 [Rx Last Taken 10/05/23] metoprolol succinate 25 mg tablet,extended release 24 hr 50 mg (2 x 25 mg) PO DAILY heart blockage #180 tabs 06/01/23 [Rx Last Taken Unknown] melatonin 10 mg capsule 10 mg PO QHS sleep 09/23/23 [History Last Taken 10/01/23] clopidogrel 75 mg tablet (Plavix) 75 mg PO DAILY antiplatelet 10/05/23 [History Last Taken 10/05/23] Allergy/AdvReac Type Severity Reaction Status Date / Time sacubitril [From Entresto] Allergy Mild cough Verified 06/19/23 10:31 valsartan [From Entresto] Allergy Mild cough Verified 06/19/23 10:31 Surgical History (Updated 10/05/23 @ 20:[address] David Palmer MD) History of total left hip arthroplasty History of total right knee replacement Social History (Updated 10/05/23 @ 20:[address] David Palmer MD) household members: none Smoking Status: Never smoker alcohol intake: never substance use type: does not use ROS Constitutional Constitutional: Reports fatigue and weakness; Denies chills, fever(s) or weight gain ENT HEENT: Denies headache(s), nasal congestion or nasal discharge Cardiovascular Cardiovascular: Denies chest pain or palpitations Respiratory/Chest Respiratory/Chest: Reports shortness of breath with exertion; Denies cough or excessive phlegm production Gastrointestinal Gastrointestinal: Denies abdominal pain, nausea or vomiting Genitourinary Genitourinary: Denies dysuria Musculoskeletal Musculoskeletal: Denies joint pain or joint swelling Integumentary Integumentary: Denies rash or wounds Neurologic Neurologic: Denies focal weakness, numbness or tingling Psychiatric Psychiatric: Denies anxiety, auditory hallucinations, depression, homicidal ideation or suicidal ideation Physical Exam Const alert General Appearance: cooperative HEENT normocephalic Eyes PERRL and EOMs intact bilaterally Neck supple, no JVD and no carotid bruits Chest Chest Narrative: Life Vest. Resp normal respiratory effort, normal air movement and clear to auscultation bilaterally Cardio regular rate and regular rhythm GI normal to inspection, nondistended, normoactive bowel sounds, non-tender and non-distended Extremity normal capillary refill General Extremity: Negative for edema Skin no rashes or lesions noted General Skin Exam: no breakdown Psych affect normal Appearance: appropriate Lab / Micro Data 10/11/23 05:28 10/11/23 05:28 Labs: Laboratory Results - last 24 hr 10/11/23 05:28: Hgb 9.7 L, Hct 31.9 L, Sodium 138, Potassium 4.5, Chloride 107, Carbon Dioxide 28.0, Anion Gap 3 L, BUN 27 H, Creatinine 1.47 H, Estim Creat Clear Calc 45.27, Est GFR (MDRD) Af Amer 59 L, Est GFR (MDRD) Non-Af 49 L, BUN/Creatinine Ratio 18.4, Glucose 95, Calcium 8.5 Assessment & Plan Assessment/Plan (1) Debility: (2) NSTEMI (non-ST elevated myocardial infarction): (3) CAD (coronary artery disease): (4) Acute HFrEF (heart failure with reduced ejection fraction): (5) Atrial fibrillation: (6) Pleural effusion, left: (7) Hypertension: (8) Hyperlipidemia: (9) Insomnia: (10) Stroke: (11) Stenosis of right carotid artery: PLAN: Plan 78 year old male with multiple medical problems including recently hospitalizedfor NSTEMI, underwent stents x 3, complicated by acute HFrEF (EF 15%), afib/aflutter s/p DCCV, left pleural effusion requiring thoracentesis, admitted to TCU with debility, here for rehabilitation, strengthening, prior to dischargehome alone. His hemoglobin is 9.7 and has been ranging around 9-9.9. Prior to his OK his hemoglobin was 14. He is on Eliquis will along with having coronary artery disease and being on Plavix he is high risk for GI bleed. He has never had a colonoscopy so that increase her risk of malignancy. He should undergo an upper and lower endoscopy to evaluate his upper and lower GI tract. He was explained alternatives, risk, benefits including not withstandingbleeding, infection, sepsis, perforation, need for emergent surgery and . He will have an ASA of 3. Charges/Coding Visit Charges Inpatient E&M: 86419 SNF Init L2 10/11/23 1514 <Electronically signed by Jose Friend DO> Cosigner Signature (if applicable): CC: Dr. Iwona Stewart MD; Dr. David Palmer MD~ Signed [facility] Work Phone: 1(908) 894-431004-24-2024 History and physical note Author David Spencer [facility] October 10, 2023 5:13pm Note Date/Time October 05, 2023 8:4 9pm [facility] Medical Records Department [address] [place] [address] History & Physical Exam 10/05/232038 MR#: [id number] Acct: [id number] Name: EBEN CRUZ Rep #:[id number] : 1945 78 From: David Palmer MD PCP: Dr. Iwona Stewart MD Status:ADM IN Location: [place] [address] HPI - General General Date of Admission: 10/05/23 Date of Service: 10/08/23 Chief Complaint: Here for rehabilitation. HPI Narrative EBEN CRUZ, is a 78 Male who presents with followin09/18/2023 Dr. Schreiber performed left total hip arthroplasty, wound VAC required. [facility] 09/23/[facility]23 SOB, elevated d-dimer, CTA chest negative pulmonary embolism. Elevated troponin, transfer to [facility]. 09/23/2023 Admit to [facility] with NSTEMI. 09/24/2023 Heart cath showed multi vessel CAD, unsuccessful PCI, EF 25%. Transfer to [facility] for complicated PCI. 09/25/2023 Admit to [facility]. Change Plavix to Brilinta. Start Heparin drip, nitropaste. Continue Aspirin, Metoprolol, Atorvastatin, PPI. Rocephin IV, urine culture for UTI. 09/26/2023 Dr. Nichole performed NORIS x 3 to LM, LAD, RCA. Decompensated heart failure, atrial fibrillation/atrial flutter status post DCCV. 09/30/2023 Echo EF 15%, 2+ MR, Mild . 10/03/2023 Worsening SOB. Thoracentesis planned for large left pleural effusion. Torsemide 10mg daily, Spironolactone, continue Metoprolol succinate 75mg daily. Entresto intolerable in the past. Eliquis 5mg bid, Metoprolol succinate 75mg daily, Amiodarone 400mg bid for atrial fibrillation. 10/05/2023 Life Vest. 10/05/2023 Admit to TCU with debility, here for rehabilitation, strengthening, prior to discharge home alone. [facility] Medical History (Updated 10/05/23 @ 20:[address] David Palmer MD) Arthritis CAD (coronary artery disease) Dyslipidemia History of CVA (cerebrovascular accident) Hypertension Leaky heart valve Home Medications hydrocodone-acetaminophen 5-325mg 5mg-325mg 1 tab PO Q6H PRN hip pain 04/27/23 [History Last Taken 04/27/23 06:30] atorvastatin 40 mg tablet 40 mg PO QHS cholesterol #90 tabs 05/14/23 [Rx Last Taken 10/05/23] metoprolol succinate 25 mg tablet,extended release 24 hr 50 mg (2 x 25 mg) PO DAILY heart blockage #180 tabs 06/01/23 [Rx Last Taken Unknown] melatonin 10 mg capsule 10 mg PO QHS sleep 09/23/23 [History Last Taken 10/01/23] clopidogrel 75 mg tablet (Plavix) 75 mg PO DAILY antiplatelet 10/05/23 [History Last Taken 10/05/23] Allergy/AdvReac Type Severity Reaction Status Date / Time sacubitril [From Entresto] Allergy Mild cough Verified 06/19/23 10:31 valsartan [From Entresto] Allergy Mild cough Verified 06/19/23 10:31 Surgical History (Updated 10/05/23 @ 20:[address] David Palmer MD) History of total left hip arthroplasty History of total right knee replacement Social History (Updated 10/05/23 @ 20:[address] David Palmer MD) household members: none Smoking Status: Never smoker alcohol intake: never substance use type: does not use ROS Constitutional Constitutional: Reports fatigue and weakness; Denies chills, fever(s) or weight gain ENT HEENT: Denies headache(s), nasal congestion or nasal discharge Cardiovascular Cardiovascular: Denies chest pain or palpitations Respiratory/Chest Respiratory/Chest: Reports shortness of breath with exertion; Denies cough or excessive phlegm production Gastrointestinal Gastrointestinal: Denies abdominal pain, nausea or vomiting Genitourinary Genitourinary: Denies dysuria Musculoskeletal Musculoskeletal: Denies joint pain or joint swelling Integumentary Integumentary: Denies rash or wounds Neurologic Neurologic: Denies focal weakness, numbness or tingling Psychiatric Psychiatric: Denies anxiety, auditory hallucinations, depression, homicidal ideation or suicidal ideation Vital Signs Vital Signs Vital Signs: 10/05/23 19:21 Temperature 97.5 F L Temperature Source Temporal Pulse Rate 86 Respiratory Rate 16 Blood Pressure 114/63 Blood Pressure Mean 80 Blood Pressure Source Monitor Blood Pressure Position Semi-Fowlers Blood Pressure Location Left Arm Pulse Ox 98 Oxygen Delivery Method Room Air Physical Exam Const alert General Appearance: cooperative HEENT normocephalic Eyes PERRL and EOMs intact bilaterally Neck supple, no JVD and no carotid bruits Chest Chest Narrative: Life Vest. Resp normal respiratory effort, normal air movement and clear to auscultation bilaterally Cardio regular rate and regular rhythm GI normal to inspection, nondistended, normoactive bowel sounds, non-tender and non-distended Extremity normal capillary refill General Extremity: Negative for edema Skin no rashes or lesions noted General Skin Exam: no breakdown Psych affect normal Appearance: appropriate Results Lab / Micro Data 10/08/23 05:28 10/08/23 05:28 Assessment & Plan Assessment/Plan (1) Debility: (2) NSTEMI (non-ST elevated myocardial infarction): (3) CAD (coronary artery disease): (4) Acute HFrEF (heart failure with reduced ejection fraction): (5) Atrial fibrillation: (6) Pleural effusion, left: (7) Hypertension: (8) Hyperlipidemia: (9) Insomnia: (10) Stroke: (11) Stenosis of right carotid artery: PLAN: Plan 78 year old male with below past medical history hospitalized for NSTEMI, underwent stents x 3, complicated by acute HFrEF (EF 15%), afib/aflutter s/p DCCV, left pleural effusion requiring thoracentesis, admitted to TCU with debility, here for rehabilitation, strengthening, prior to discharge home alone. * Debility - PT/OT. * Pain - Tylenol 1000mg q6 prn pain (1-10). * Bowel - Miralax 17gm daily, senna/colace 1 tablet bid prn. * Adult immunization - Administer pneumonia vaccine, covid vaccine, flu vaccine as appropriate * DVT prophylaxis - Eliquis 5mg bid. * Atrial fibrillation - Metoprolol succinate 50mg po qhs, Amiodarone 400mg daily thru 11/05/2023, then 200mg daily, Eliquis 5mg bid. * Hyperlipidemia - Atorvastatin 40mg qhs. * Coronary artery disease s/p stents x 3 - Metoprolol succinate 50mg qhs, Eliquis 5mg bid, Plavix 75mg daily. * HFrEF - Metoprolol succinate 50mg qhs, Entresto intolerable, Jardiance 25mg daily, Spironolactone 12.5mg daily, Furosemide 20mg daily prn. * Insomnia - Melatonin 10mg qhs prn. * GERD - Pantoprazole 40mg daily. * Zinc deficiency - Zinc 50mg daily. 10/08/23 0741 <Electronically signed by David Palmer MD> Cosigner Signature (if applicable): CC: Dr. Iwona Stewart MD; Dr. David Palmer MD~ Signed ADDENDUM by Dr. David Palmer MD on 10/08/23 at 0749 Addendum BPH/urinary retention - rx Tamsulosin 0.4mg daily. 10/08/23 0749<Electronically signed by David Palmer MD> Cosigner Signature (if applicable): cc: Dr. Iwona Stewart MD; Dr. David Palmer MD ~* Signed ADDENDUM by Dr. David Palmer MD on 10/10/23 at 1713 Addendum bibasilar pneumonia - Doxycycline 100mg bid x 7 days. 10/10/23 171<Electronically signed by David Palmer MD> Cosigner Signature (if applicable): cc: Dr. Iwona Stewart MD; Dr. David Palmer MD ~* Signed [facility] Work Phone: 1(784) 350-876504-22-2024 Progress note Author David Palmer [facility] October 08, 2023 5:10pm Note Date/Time October 08, 2023 2:3 3pm [facility] Medical Records Department [address] [place] [address] Progress Note - Pharmacy 10/08/23 1429 MR#: [id number] Acct: [id number] Name: EBEN CRUZ Rep #:[id number] : 1945 78 From: Anju Paz PCP: Dr. Iwona Stewart MD Status:ADM IN Location: TCU [facility] Documented by User: Anju Paz 10/08/23 14:52 TCU RX Drug Regimen Review Subjective/Objective Subjective/Objective: Subjective: TCU Admission. 78 YOM presented to ER from [facility] TCU withNSTEMI, transferred to [facility]. Hospitalized for NSTEMI, underwent stents x 3, complicated by acute HFrEF (EF 15%), afib/aflutter s/p DCCV, left pleural effusion requiring thoracentesis. Admitted to TCU with debility for strengthening and rehabilitation. Objective: Allergies sacubitril [From Entresto] Allergy (Mild, Verified 06/19/23 10:31) cough valsartan [From Entresto] Allergy (Mild, Verified 06/19/23 10:31) cough Current Medications Generic Name Dose Route Start Last Admin Trade Name Freq PRN Reason Stop Dose Admin Acetaminophen 1,000 mg 10/05/23 20:56 Acetaminophen 500 Mg Tablet PO Q6H PRN PRN Pain Score 1-10 Amiodarone HCl 400 mg 10/06/23 10:00 10/08/23 08:22 Amiodarone 200 Mg Tablet PO 11/05/23 10:01 400 mg DAILY CALEB Administration Amiodarone HCl 200 mg 11/06/23 10:00 Amiodarone 200 Mg Tablet PO DAILY CALEB Apixaban 5 mg 10/05/23 22:00 10/07/23 10:28 Apixaban 5 Mg Tablet PO 5 mg BID CALEB Administration Ascorbic Acid 500 mg 10/07/23 10:00 10/08/23 08:23 Ascorbic Acid 500 Mg Tablet PO 500 mg 1000 CALEB Administration Atorvastatin Calcium 40 mg 10/06/23 22:00 10/07/23 20:38 Atorvastatin Calcium 40 Mg Tablet PO 40 mg QHS CALEB Administration Calamine/Phenol 1 applic 10/05/23 22:00 10/08/23 08:27 Menthol/Lanolin/Calamine/Znox 113 Gm Tube TOPICAL 1 applic BID CALEB Administration Protocol Clopidogrel Bisulfate 75 mg 10/06/23 10:00 10/08/23 08:23 Clopidogrel Bisulfate 75 Mg Tablet PO 75 mg DAILY CALEB Administration Doxepin HCl 10 mg 10/06/23 22:00 10/07/23 20:38 Doxepin Hydrochloride 10 Mg Capsule PO 10 mg QHS [facility] Administration Empagliflozin 25 mg 10/06/23 10:00 10/08/23 08:22 Empagliflozin 25 Mg Tablet PO 25 mg DAILY CALEB Administration Furosemide 20 mg 10/05/23 20:33 Furosemide 20 Mg Tablet PO DAILY PRN swelling/dyspnea Metoprolol Succinate 50 mg 10/05/23 22:00 10/07/23 20:38 Metoprolol(Xl)Succ 50 Mg Tablet PO 50 mg QHS [facility] Administration Protocol Nystatin 1 applic 10/05/23 22:00 10/08/23 08:26 Nystatin Powder 15gm Bottle TOPICAL 1 applic BID [facility] Administration Protocol Pantoprazole Sodium 40 mg 10/06/23 10:00 10/08/23 08:23 Pantoprazole Sodium 40 Mg Tablet PO 40 mg DAILY [facility] Administration Polyethylene Glycol 17 gm 10/06/23 10:00 10/08/23 08:22 Polyethylene Glycol 3350 17 Gm Packet PO 10/09/23 10:01 17 gm DAILY [facility] Administration Polysaccharide Iron Complex 150 mg 10/06/23 11:00 10/08/23 08:22 Iron Polysaccharide Complex 150 Mg Capsule PO 150 mg DAILY [facility] Administration Senna/Docusate Sodium 1 tablet 10/05/23 20:56 Senna/Docusate Sodium 1 Tablet PO BID PRN PRN Constipation Sodium Chloride 10 - 40 ml 10/06/23 00:39 0.9% Saline Lock 10 Ml Syringe IV UD PRN SALINE FLUSH Spironolactone 12.5 mg 10/06/23 10:00 10/08/23 08:20 Spironolactone 25 Mg Tablet PO 12.5 mg DAILY [facility] Administration Protocol Tamsulosin HCl 0.4 mg 10/08/23 17:30 Tamsulosin Hcl 0.4 Mg Capsule PO DAILY@1730 [facility] Tuberculin PPD 0.1 ml 10/13/23 10:00 Tuberculin,Purif.Prot.Deriv. 50 Tu/Ml Vial ID 10/13/23 10:01 X1 ONE Zinc Sulfate 50 mg 10/06/23 10:00 10/08/23 08:23 Zinc Sulfate 50 Mg Zinc (220 Mg) Oral Capsule PO 50 mg DAILY [facility] Administration Problem List (Updated 10/05/23 @ 20:[address] David Palmer MD) Stenosis of right carotid artery (Acute) Stroke (Acute) Insomnia (Acute) Hyperlipidemia (Acute) Hypertension (Chronic) Pleural effusion, left (Acute) Atrial fibrillation (Acute) Acute HFrEF (heart failure with reduced ejection fraction) (Acute) CAD (coronary artery disease) (Acute) NSTEMI (non-ST elevated myocardial infarction) (Acute) Debility (Acute) Vital Signs Temp Pulse Resp BP Pulse Ox O2 Del Method 97.4 F L 60 20 H 107/52 L 98 Room Air 10/07/23 14:04 10/07/23 20:38 10/07/23 14:04 10/07/23 20:38 10/07/23 14:04 10/07/23 14:04 Oxygen Delivery Method Room Air Weight: 90.174 kg Body Mass Index (BMI) 29.4 Sodium 138 mmol/L (136-145) 10/08/23 05:28 Potassium 4.1 mmol/L (3.5-5.1) 10/08/23 05:28 Chloride 107 mmol/L (98-107) 10/08/23 05:28 Carbon Dioxide 25.0 mmol/L (21.0-32.0) 10/08/23 05:28 Anion Gap 6 (5-15) 10/08/23 05:28 BUN 25 mg/dL (7-18) H 10/08/23 05:28 Creatinine 1.25 mg/dL (0.70-1.30) 10/08/23 05:28 Est GFR (MDRD) Af Amer 71 mL/min (>60) 10/08/23 05:28 Est GFR (MDRD) Non-Af 59 mL/min (>60) L 10/08/23 05:28 BUN/Creatinine Ratio 20.0 RATIO (10-20) 10/08/23 05:28 Glucose 98 mg/dL (74-106) 10/08/23 05:28 Assessment/Plan: 1. Pain: acetaminophen 1000mg PO Q6H PRN pain 1-10. Resident has not used any doses. Please continue to monitor for increased pain and PRN usage. 2. Bowel: Miralax 17gm PO daily thru 10/09/23 and senna/docusate 1T PO BID PRN constipation. No documented bowel movement. No PRN usage. Please consider givingsenna/docusate. 3. Atrial fibrillation/CAD s/p stents x 3/HFrEF: metoprolol succinate 50mg PO QHS, amiodarone 400mg PO daily thru 11/04 then 200mg daily, apixaban 5mg PO BID, clopidogrel 75mg PO daily, empagliflozin 25mg PO daily, spironolactone 12.5mg POdaily and furosemide 20mg PO daily PRN swelling/dyspnea. Please continue to monitor HR (last 60), BP (last 107/52), potassium (last 4.1mmol/L), sodium ([id number]), SOB, S/S of bleeding, hemoglobin (last 10g/dL), glucose (last 98mg/dL), hemoglobin A1c (last 5.4% 09/23/23), swelling, renal function, PRN usage. No PRN furosemide has been given. 4. Hyperlipidemia: atorvastatin 40mg PO QHS. Please continue to monitor lipid panel (last 09/23/23), LFTs (last 09/25/23) and muscle pain. 5. GERD: pantoprazole 40mg PO daily. Please continue to monitor for S/S of GERD and diarrhea (BEERs medication). 6. Iron deficiency (based on hemoglobin 10g/dL): Ferrex 150mg PO DAILYCM and ascorbic acid 500mg PO daily. Please continue to monitor hemoglobin, dark stools, constipation and iron studies (last 10/07/23). 7. BPH/urinary retention: tamsulosin 0.4mg PO daily. Please continue to monitor for S/S of BPH and BP. 8. Zinc deficiency: zinc sulfate 50mg PO daily. Please continue to monitor. Assessment/Plan for indications treated with psychotropic medications: 1. Insomnia (per nursing note): doxepin 10mg PO QHS. GDR not appropriate at thistime as this medication was just started, melatonin not effective. Please continue to monitor for excessive drowsiness, anticholinergic side effects (BEERs medication), fall/fractures (BEERs medication), dementia/delirium (BEERs medication) and BP. Medical chart and medication regimen reviewed. The following medication irregularities or issues were identified: None Date Date of Note:: 10/08/23 Documented by User: Dr. David Palmer MD 10/08/23 17:10 TCU RX Drug Regimen Review Provider Comments Provider responsibility Provider Comments to Recommendations by Pharmacy: Agree 10/08/23 1452 <Electronically signed by Anju Paz> Anju Paz Cosigner Signature (if applicable): 10/08/23 1710 <Electronically signed by David Palmer MD> CC: ~ Signed [facility] Work Phone: 1(479) 737-236304-21-2024 Telephone encounter Note* Telephone Encounter - Gisell Sandy PA-C - 10/07/2023 12:31 PM EDT Error [facility] Work Phone: 1(650) 793-555004-21-2024 Miscellaneous Notes* Telephone Encounter - Gisell Sandy PA-C - 10/07/2023 12:31 PM EDT Error documented in this [place] [address]-19-2024 Nurse Note* Alis Matute RN - 10/05/2023 5:55 PM EDT Called report to [phone] [facility]. Removed patient's IV per protocol and ensured that his LifeVest, life skills worker, instructions and extra battery went with him. Gave him a copy medication list to give to his daughter per request. He had no questions or objections to discharge. No change in his assessment, ready for discharge/transport. * Tara Marte RN - 10/03/2023 11:18 AM EDT Patient arrived to Ultrasound department for thoracentesis. History, medications and allergies reviewed. Carri Todd PA-C, in to discuss procedure and informed consent obtained. Patient assisted to sitting on the edge of the bed. Right upper back scanned, marked and prepped insterile fashion. 1L of clear gold fluid removed. Vaseline guaze dressing applied. Patient tolerated procedure well.Patient transferred back to . * Katie Aguilar RN - 09/30/2023 8:[address] IV [address] per rapid response RN, amiodarone gtt restarted at previous rate., Dr. Cast notified. * Katie Aguilar RN - 09/30/2023 8:12 AM EDT L AC HL site reddened, firm. States some discomfort at site. Amiodarone gtt stopped, red area marked. Attempted to restart IV, unsuccessful, rapid response notified of infiltrated site and for assist with new placement. Seth Goldstein RESIDENTIAL PROGRAM COORDINATOR also notified. Cont to monitor. * Marietta Kenny RN - 09/27/2023 3:25 PM EDT Patient helped to chair by physical therapy. His blood pressure was then 78/36. He did state he felt lightheaded. Willy Goldstein RESIDENTIAL PROGRAM COORDINATOR at bedside. Assisted back to bed and blood pressure now up to 99/52. Family at bedside documented in this [facility]04-19-2024 Miscellaneous Notes* Care Coordination - YAS Horton - 10/05/2023 2:50 PM EDT SW nitroglycerin supervisor requested this SW to schedule transport for Pt today to [facility] for 6:00 pm. 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 Notified SNF via [facility]Port. Notified TCC and bedside nurse via secured chat. Gave nursing secretary transport form. Met w/ Pt, introduced self, explained role, and informed of transport plans including separate billing and possible time delay. PT staff was Working w / Pt upon SW arrival to room. Pt reported no issues or concerns with transport plans and requested SW call his Dtr Mark to inform. SW phone call w/ Pt's Dtr Mark who was listed as emergency contact in Pt's chart. Mark reported no issues to SW and requested copy of discharge med list. SW informed TCC of med list request. TCC notified bedside nurse who agreed to give Pt two copies of discharge med list. Sw phone call w/ Mark and informed of this information. * Care Coordination - Soco Palumbo RN - 10/05/2023 12:22 PM EDT Images from the original note were not included. Care Management Progress Note Chart reviewed. Patient admitted to for CAD 09/25/2023. Consults to IP CONSULT TO ANESTHESIOLOGY IP WOUND CARE NURSE CONSULT TO EVAL IP CONSULT TO CARDIAC REHAB IP CONSULT TO CARDIAC REHAB IP CONSULT TO PALLIATIVE CARE IP CONSULT TO CARDIOLOGY IP CONSULT TO ORTHOPAEDIC SURGERY Discharge Planning/Barriers: LifeVest fitting 330pm today. TCC notified treatment team and SW regarding discharge planning and LifeVest fitting. TCC spoke to patient regarding discharge planning for today; patient verbalizes understanding and agreement. Discharge Plan: [facility]. Awaiting LifeVest clinical stability and medical clearance. Will continue to follow with SW. Discharge Milestones and Delays Expected Date/Time: 10/05/[address] discharge order Complete med reconciliation Case mgmt discharge readiness Clinical Stability Diagnsotic Workup Facility Choice Selection Facility Pre-cert Expected Discharge History Expected Date/Time Set By Reviewed At 10/05/2023 Soco Palumbo RN 10/05/2023 12:19 PM 10/05/2023 Soco Palumbo RN 10/05/2023 7:31 AM Thoracentesis today. 10/05/2023 Soco Palumbo RN 10/04/2023 7:39 AM 10/05/2023 Arminda Marie RN 10/03/2023 10:33 AM 10/03/2023 Arminda Reed RN 10/02/2023 8:01 AM pending p2p for [facility] 10/03/2023 Vivienne Wilson RN 10/01/2023 11:05 AM Arminda Lawler RN 09/26/2023 9:06 AM 09/27/2023 Ashleigh Morrison, PAINT TECHNICIAN - GELY 09/25/2023 1:40 PM Length of Stay (Days): 10 GMLOS: 4.6 * Care Coordination - Soco Palumbo RN - 10/04/2023 11:47 AM EDT Images from the original note were not included. Care Management Progress Note TCC faxed LifeVest order and referral packet to [phone]. TCC spoke with Deven Kumar [phone] auth should take a few hours and patient should have vest by tomorrow. TCC updated treatment team via secure chat. Discharge Milestones and Delays Expected Date/Time: 10/05/[address] discharge order Complete med reconciliation Case mgmt discharge readiness Clinical Stability Diagnsotic Workup Expected Discharge History Expected Date/Time Set By Reviewed At 10/05/2023 Soco Palumbo RN 10/04/2023 7:39 AM Thoracentesis today. 10/05/2023 Arminda Marie RN 10/03/2023 10:33 AM 10/03/2023 Arminda Reed RN 10/02/2023 8:01 AM [facility] 10/03/2023 Vivienne Wilson RN 10/01/2023 11:05 AM Arminda Lawler RN 09/26/2023 9:06 AM 09/27/2023 Ashleigh Morrison, PAINT TECHNICIAN - AIRPLANE FIRST OFFICER 09/25/2023 1:40 PM Length of Stay (Days): 9 GMLOS: 4.6 * Care Coordination - Soco Palumbo RN - 10/04/2023 10:39 AM EDT Images from the original note were not included. Care Management Progress Note Chart reviewed. Patient admitted to for CAD 09/25/2023. Consults to IP CONSULT TO ANESTHESIOLOGY IP WOUND CARE NURSE CONSULT TO EVAL IP CONSULT TO CARDIAC REHAB IP CONSULT TO CARDIAC REHAB IP CONSULT TO PALLIATIVE CARE IP CONSULT TO CARDIOLOGY IP CONSULT TO ORTHOPAEDIC SURGERY Discharge Planning/Barriers: TCC notified facility auth approved. Patient not ready for discharge today. TCC notfied by cardiology needing Lifevest set up. TCC called Vivienne [phone] and Luis [phone] from Lifevest andLM. Lifevest set up pending. Addendum: TCC called [facility] LifeVest [phone]. TCC directed to call Deven [phone]. No answer; LVM. Discharge Plan: [facility] SNF. Awaiting Lifevest set up, clinical stability and medical clearance. Will continue to follow with . Discharge Milestones and Delays Expected Date/Time: 10/05/[address] discharge order Complete med reconciliation Case mgmt discharge readiness Clinical Stability Diagnsotic Workup Expected Discharge History Expected Date/Time Set By Reviewed At 10/05/2023 Soco Palumbo RN 10/04/2023 7:39 AM Thoracentesis today. 10/05/2023 Arminda Marie RN 10/03/2023 10:33 AM 10/03/2023 Arminda Reed RN 10/02/2023 8:01 AM pending p2p for [facility] 10/03/2023 Vivienne Wilson RN 10/01/2023 11:05 AM Arminda Lawler RN 09/26/2023 9:06 AM 09/27/2023 Ashleigh Morrison, PAINT TECHNICIAN - AIRPLANE FIRST OFFICER 09/25/2023 1:40 PM Length of Stay (Days): 9 GMLOS: 4.6 * Care Coordination - Soco Palumbo RN - 10/04/2023 9:00 AM EDT TCC notes LACE & Readmission Score >58. TCC completed referral to Ambulatory Transition CareTeam. * Care Coordination - Karen Zepeda - 10/04/2023 8:44 AM EDT Referral placed to SNF - [facility] via [facility] per TCC request. Await review and response regarding ability to accept. TCC notified. * Care Coordination - Karen Zepeda - 10/03/2023 12:01 PM EDT Referral placed to SNF - [facility] via Careport per TCC request. Await review and response regarding ability to accept. TCC notified. * Care Coordination - Arminda Marie RN - 10/03/2023 10:46 AM EDT Images from the original note were not included. Care Management Progress Note Patient remains on 1C s/p Cardioversion 10/01, Thoracentesis today. PT/OT recommending SNF. Jennifer at [facility] contacted for bed availability and confirmed they have SNF beds available. Requested an updated OT note to start insurance auth. Requested HYDROSTATIC TUBING TESTER send MAR, updated PT note and Cardiology note to facility per their request. Discharge Milestones and Delays Expected Date/Time: 10/05/[address] discharge order Complete med reconciliation Case mgmt discharge readiness Clinical Stability Diagnsotic Workup Expected Discharge History Expected Date/Time Set By Reviewed At 10/05/2023 Arminda Marie RN 10/03/2023 10:33 AM Thoracentesis today. 10/03/2023 Arminda Reed RN 10/02/2023 8:01 AM pending p2p for [facility] 10/03/2023 Vivienne Wilson RN 10/01/2023 11:05 AM Arminda Lawler RN 09/26/2023 9:06 AM 09/27/2023 Ashleigh Morrison APRN - [facility] 09/25/2023 1:40 PM Length of Stay (Days): 8 GMLOS: 4.6 * Care Plan - Constance Lee RN - 10/02/2023 9:03 PM EDT Problem: Knowledge Deficit Goal: Patient/family/caregiver demonstrates understanding of disease process, treatment plan, medications, and discharge instructions Outcome: Progressing Problem: Potential for Compromised Skin Integrity Goal: Skin Integrity is Maintained or Improved Outcome: Progressing Problem: Potential for Compromised Skin Integrity Goal: Nutritional status is improving Outcome: Progressing * Patient Care Conference - Natalia Solis RN - 10/02/2023 11:30 AM EDT Palliative Care Interdisciplinary Team Note: Diagnosis: Principal Problem: 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 male with chief complaint of: coronary artery disease Reason Palliative Following: Goals of Care Plan: Follow Peripherally Code Status: Full Code Medications: Palliative Care Not Managing any Medications Nursing: Nursing Home Care Social Work: No Unmet Needs Spiritual Care: Community Clergy Following Pharmacy: No Unmet Needs Psychology/Psychiatry: No Unmet Needs * Care Coordination - Arminda Reed RN - 10/02/2023 11:04 AM EDT This TCC spoke with Jennifer from admissions at [facility] [phone]. At this time, there is NOauth or P2P pending. [facility] is willing to accept the pt for either IPR or SNF LOC. The only beds they have available at this time is for their IPR. There are no available beds on the SNF side.[facility] states he has skillable needs to qualify for their IPR. TCC reaching out to [facility]iest[facility] see if they feel pt would be able to tolerate IPR. Auth will need to be started once he approaches medical readiness. If a SNF bed becomes available, Jennifer will let the bedside nurse know. Since there is no regular TCC for this floor, the unit phone number was given to Jennifer for her to contact the bedside nurse caring for the pt that day. The nurse carie let the covering TCC know. TCC to watch for medical readiness to start auth and to assist as needed. * Care Coordination - Arminda Reed RN - 10/02/2023 10:32 AM EDT Pt having cardioversion today and possible thoracentesis tomorrow 10/02. TCC attempted to call Jennifer with admissions at [facility] SNF to check on the P2P pending status. Left HIPAA appropriate message for Jennifer to return call. TCC to follow and assist as needed. * Care Plan - Constance Lee RN - 10/01/2023 9:08 PM EDT Problem: Knowledge Deficit Goal: Patient/family/caregiver demonstrates understanding of disease process, treatment plan, medications, and discharge instructions Outcome: Progressing Problem: Potential for Compromised Skin Integrity Goal: Skin Integrity is Maintained or Improved Outcome: Progressing Problem: Potential for Compromised Skin Integrity Goal: Nutritional status is improving Outcome: Progressing * Care Coordination - Molly Arizmendi - 10/01/2023 9:24 AM EDT Updated notes placed to SNF-[facility] per TCC request. Await review and response regarding ability to accept. TCC notified. * Care Coordination - Vivienne Wilosn RN - 10/01/2023 9:11 AM EDT Spoke with Jennifer at [facility] at [phone] regarding auth status. Jennifer states [id number] is still pending. Jennifer states she should know by the end of the day the results of p2p. Tasked HYDROSTATIC TUBING TESTER to sendmost recent PT/OT notes and MD notes. TCC to follow. Electronically signed by Vivienne Wilson RN on10/01/2023 at 9:13 AM * Care Plan - Grace Mcdonald RN - 09/30/2023 9:25 PM EDT Problem: Potential for Compromised Skin Integrity Goal: Skin Integrity is Maintained or Improved Outcome: Progressing * Care Coordination - Janelle Gannon RN - 09/28/2023 2:02 PM EDT Images from the original note were not included. Care Management Progress Note Patient remains on 1 Central ~ off IV amiodarone - per RN BP and HR better. Palliative and Cardiology following. Palliative Care Consulted. Has PT/OT orders - will need rehab of hip surgery. Patient was still inpatient at [facility] - will need auth from [facility] - they can see in care port but not respond - Jun [phone]. [facility] would not have bed until earliest Sunday. Task sent for PT/OT to see Discharge Plan: [facility] (SNF bed) - TCC and SW cont to follow. Discharge Milestones and Delays Discharge Milestones Place discharge order Complete med reconciliation Case mgmt discharge readiness Clinical Stability Diagnsotic Workup Expected Discharge History Expected Date/Time Set By Reviewed At Arminda Lawler RN 09/26/2023 9:06 AM 09/27/2023 Ashleigh Morrison APRN - GLEY 09/25/2023 1:40 PM Length of Stay (Days): 3 GMLOS: No GMLOS Documented * Care Coordination - YAS Samuel - 09/28/2023 11:09 AM EDT Completed transportation from in [facility]. 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 male with chief complaint of: coronary artery disease Reason Palliative Following: Goals of Care Plan: Ongoing Goals of Care Discussion Code Status: Full Code Medications: Palliative Care Not Managing any Medications Nursing: Nursing Home Care Social Work: No Unmet Needs Spiritual Care: Community [facility]ergy Following Pharmacy: No Unmet Needs Psychology/Psychiatry: No Unmet Needs * Care Plan - Peg Mccurdy RN - 09/27/2023 8:28 PM EDT Problem: Knowledge Deficit Goal: Patient/family/caregiver demonstrates understanding of disease process, treatment plan, medications, and discharge instructions Outcome: Progressing Problem: Potential for Compromised Skin Integrity Goal: Skin Integrity is Maintained or Improved Outcome: Progressing Goal: Nutritional status is improving Outcome: Progressing Problem: Urinary Incontinence Goal: Perineal skin integrity is maintained or improved Outcome: Progressing * Care Coordination - Janelle Gannon RN - 09/27/2023 1:47 PM EDT Images from the original note were not included. Care Management Progress Note Patient remains on 1 Central NSTEMI/CAD s/p IVL with NORIS to LMCA, Ostial and Proximal LAD on 09/25, s/p hip surgery on 09/17 ~ on abx for E coli UTI. Was in [facility] - in their SNF unit - daughter would like patient to return. PT/OT orders in. Called and left VM for Jun ([phone]) at [facility] - to see what is needed when patient is ready for discharge. (They have not answered in care port) Received call back from Jennifer at [facility] - to clarify - patient was still in patient at [facility] - auth for [facility] was started on 09/23, patient trasnferred to [facility] on 09/24 - rehab was denied on 09/25. Patient would need auth for [facility] SNF bed - at the earliest they would have a bed would be . Patient will need PT/OT to see. Task sent to [facility] - to close [facility] referral ending in 123 and leave referral ending in 701 - [facility] can see info on the referral but can not respond to in care port. Discharge Milestones and Delays Discharge Milestones Place discharge order Complete med reconciliation Case mgmt discharge readiness Clinical Stability Diagnsotic Workup Expected Discharge History Expected Date/Time Set By Reviewed At Arminda Lawler RN 09/26/2023 9:06 AM 09/27/2023 Ashleigh Morrison APRN - GELY 09/25/2023 1:40 PM Length of Stay (Days): 2 GMLOS: No GMLOS Documented * Care Plan - Peg Mccurdy RN - 09/26/2023 7:44 PM EDT Problem: Knowledge Deficit Goal: Patient/family/caregiver demonstrates understanding of disease process, treatment plan, medications, and discharge instructions Outcome: Progressing Problem: Potential for Compromised Skin Integrity Goal: Skin Integrity is Maintained or Improved Outcome: Progressing Goal: Nutritional status is improving Outcome: Progressing Problem: Urinary Incontinence Goal: Perineal skin integrity is maintained or improved Outcome: Progressing * Individualized Overall Plan of Care Note - Doyle Coelho MD - 09/26/2023 6:02 PM EDT Paged that patient has been dyspneic and evaluation requested. Patient seen, Aox3. He has been dyspneic for some time, but has been worsening this afternoon. He had PCI today with stent to LMCA, ost/prox LAD, RCA LVEDP 18 mmHg. He had been more short of breath post procedure. Initially he was receiving LR 125 mL/hr. This was stopped with his dyspnea and received lasix 40 mg IV with some UOP. On my exam, his HR was initially in the 70s-80s, RR in the 30s. He did appear tachypneic. JVD+, cracklespresent. Given his tachypnea with abdominal breathing in the setting of volume overload, I ordered an additional 80 mg IV lasix. STAT CXR pending. EKG without acute changes. Further discussed with interventional cardiology Dr. Pickett as well. Will hold off transfer to CCU at this time. Doyle Coelho MD Cardiovascular Disease PGY-IV * Care Coordination - Karen Zepeda - 09/26/2023 3:14 PM EDT Return referral placed to SNF - [facility] via [facility] per TCC request. Await review and response regarding ability to accept. TCC notified. * Care Coordination - Arminda Lawler RN - 09/26/2023 3:01 PM EDT [facility]. HYDROSTATIC TUBING TESTER tasked to send referral. * Care Coordination - Molly Arizmendi - 09/26/2023 1:33 PM EDT Referral placed to [facility]URN [facility] via [facility] per TCC request. Await review and response regarding ability to accept. TCC notified. * Care Coordination - Arminda Lawler RN - 09/26/2023 1:06 PM EDT Care Managment Initial Assessment Date: 09/26/2023 Patient Name: Eben Cruz : 1945 Patient Information Source of Information: Patient [employer] Name/Contact Information: law Mendez Cognition/Language: WFL - Within Functional Limits Permission given to speak with patient agency sales representative/caregiver as indicated: Confirmation of Payer with patient/family: Yes Payer Name: [id number] Medicare Advantage [place]: Confirmation of Primary Care Physician: Confirmed PCP Name: Iwona Stewart Seen in last 2 years?: Yes Primary Caregiver: Self If assistance needed, confirmed caregiver ready, willing and able to care for patient at discharge:(plan is to return to [facility]) Confirmed with: Living Arrangements Current Residence: House Number of Floors 1 Number of Entry Steps: 1 Bed/Bath Levels: Both first floor Facility: Facility Name: Plan to Return: Lives with: Alone Support Systems: Children Activities of Daily Living Ambulation: Independent Bathing/Dressing: Independent Elimination/Continence/Toileting: Independent Feeding: Independent Who Assists with Activities of Daily Living: Instrumental Activities of Daily Living Prescription Coverage: Yes Pharmacy Used: [facility] Medication Management: Independent Transportation/Shopping: Independent Transportation Mode: Car Needs Assistance with Transportation at Discharge: Yes Meal Preparation: Independent Laundry/Cleaning: Independent Finances/Bill Paying: Independent Communication: Independent Types of Care Services/Equipment Utilized Care Services: Dialysis Type: Durable Medical Equipment: Cane, Walker (did not use walker prior to his stroke) Patient's Goal/Discharge Plan Patient expects to be discharged to: return to [facility] Discharge Planning Actions: Patient's Choice Rights and [employer] and Collaborative Relationships Disclosed as Indicated for Post-Acute Care: Yes Interdisciplinary Team Engagement: Acute Rehab Social Work Referral for: Additional Information: [facility] admitted [facility] procedure. Pt had a stroke 04/2023, Hip surgery last , then went to [facility] in [place]. Transferred to [facility] for planned cardiac intervention. PCI with 3 stents and lithotripsy this AM. Met with pt's law Mendez in room while pt in cathead worker. Pt had been ind and working/driving prior to his stroke in Nov. Used a cane prn. Has been at [facility] since Sun per dtr. Plan is to return at [facility] tasked to send referral. DCP: return to [facility]. Will need PT/OT for auth. Arminda Lawler RN * Care Plan - Peg Mccurdy RN - 09/25/2023 8:34 PM EDT Problem: Knowledge Deficit Goal: Patient/family/caregiver demonstrates understanding of disease process, treatment plan, medications, and discharge instructions Outcome: Progressing Problem: Potential for Compromised Skin Integrity Goal: Skin Integrity is Maintained or Improved Outcome: Progressing Goal: Nutritional status is improving Outcome: Progressing Problem: Urinary Incontinence Goal: Perineal skin integrity is maintained or improved Outcome: Progressing documented in this [facility]04-19-2024 NoteName: Eben Cruz Date of : 1945 Date of Admission: 09/25/2023 Date of Discharge: 10/05/2023 Admitting physician: Amos Nichole MD Discharge Attending: Elisa Goldstein APRN - AIRPLANE FIRST OFFICER Primary Care Physician: Iwona Stewart Review of Systems: Review of Systems Constitutional: Negative for activity change, chills, diaphoresis, fatigue and fever. HENT: Negative for nosebleeds and trouble swallowing. Eyes: Negative for discharge and visual disturbance. Respiratory: Positive for shortness of breath (CHRISTIANSEN). Negative for apnea, cough, chest tightness and wheezing. Cardiovascular: Negative for chest pain, palpitations and leg swelling. Gastrointestinal: Negative for abdominal distention, abdominal pain, blood in stool, diarrhea, nausea and vomiting. Endocrine: Negative for cold intolerance and heat intolerance. Genitourinary: Negative for hematuria. Musculoskeletal: Negative for gait problem and myalgias. Skin: Negative for color change and rash. Neurological: Positive for weakness. Negative for dizziness, seizures, syncope, facial asymmetry, speech difficulty, light-headedness, numbness and headaches. Hematological: Does not bruise/bleed easily. Psychiatric/Behavioral: Negative for dysphoric mood. Physical Exam: Physical Exam Vitals reviewed. Constitutional: General: He is not in acute distress. Appearance: Normal appearance. He is not diaphoretic. Comments: Up in chair HENT: Head: Normocephalic. Mouth/Throat: Pharynx: No oropharyngeal exudate. Eyes: General: Right eye: No discharge. Left eye: No discharge. Extraocular Movements: Extraocular movements intact. Pupils: Pupils are equal, round, and reactive to light. Cardiovascular: Rate and Rhythm: Normal rate and regular rhythm. Frequent Extrasystoles are present. Pulses: Normal pulses. Heart sounds: Normal heart sounds. No murmur heard. No gallop. Pulmonary: Effort: Pulmonary effort is normal. No respiratory distress. Breath sounds: Examination of the right-lower field reveals decreased breath sounds. Examination of the left-lower field reveals decreased breath sounds. Decreased breath sounds present. Abdominal: General: Bowel sounds are normal. There is no distension. Palpations: Abdomen is soft. Tenderness: There is no abdominal tenderness. Musculoskeletal: General: Normal range of motion. Cervical back: Normal range of motion and neck supple. Right lower leg: No edema. Left lower leg: No edema. Skin: General: Skin is warm and dry. Capillary Refill: Capillary refill takes less than 2 seconds. Neurological: General: No focal deficit present. Mental Status: He is alert and oriented to person, place, and time. Cranial Nerves: No cranial nerve deficit. Psychiatric: Mood and Affect: Mood normal. 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 ([facility]) HFrEF (heart failure with reduced ejection fraction) ([facility]) EKG: IMPRESSION: Sinus rhythm Nonspecific repol abnormality, lateral leads TELEMETRY: SR 60-70s with PVCs Procedures: Cath Summary: 09/26/23: Conclusions Mildly elevated LVEDP 18 mmHG Severe calcified left main( ostial 50%, distal 80%) stenosis Severe calcified proximal LAD( 80%) stenosis Small D1 with proximal 70% lesion Ostial LCX SECTIONIZER heavily calcified with no collaterals Severely calcified ostial RCA(90%) lesion, mid(30%) and distal RCA(50%) Successful IVUS guided Intravascular Lithotripsy and NORIS of ostial RCA. Successful IVUS guided Intravascular Lithotripsy and NORIS of LMCA. Successful IVUS guided Intravascular Lithotripsy and NORIS of ostial and proximal LAD. Plan DAPT for at least 1 year and ocean transportation intermediary if tolerates. Single antiplatelet lifelong High intensity statin Aggressive risk factor modification Optimal GDMT for ischemic cardiomyopathy Remove right femoral arterial sheath once ACT is less than 160 seconds. Patient to lay supine for 6 hrs post sheath removal. HOSPITAL COURSE : Mr. 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 On 09/18/23, he had total left hip replacement surgery at [facility]. He had a NSTEMI and was transferred to [facility], then to [facility] for a PCI. On 09/26/23, he had a PCI with IVL and NORIS plac (more content not included)... [facility] [id number] NoteCare Management Progress Note Chart reviewed. Patient admitted to for CAD 09/25/2023. Consults to IP CONSULT TO ANESTHESIOLOGY IP WOUND CARE NURSE CONSULT TO EVAL IP CONSULT TO CARDIAC REHAB IP CONSULT TO CARDIAC REHAB IP CONSULT TO PALLIATIVE CARE IP CONSULT TO CARDIOLOGY IP CONSULT TO ORTHOPAEDIC SURGERY Discharge Planning/Barriers: LifeVest fitting 330pm today. TCC notified treatment team and SW regarding discharge planning and LifeVest fitting. TCC spoke to patient regarding discharge planning for today; patient verbalizes understanding and agreement. Discharge Plan: [facility] SNF. Awaiting LifeVest clinical stability and medical clearance. Will continue to follow with SW. Discharge Milestones and Delays Expected Date/Time: 10/05/[address] discharge order Complete med reconciliation Case mgmt discharge readiness Clinical Stability Diagnsotic Workup Facility Choice Selection Facility Pre-cert Expected Discharge History Expected Date/Time Set By Reviewed At 10/05/2023 Soco Palumbo RN 10/05/2023 12:19 PM 10/05/2023 Soco Palumbo RN 10/05/2023 7:31 AM Thoracentesis today. 10/05/2023 Soco Palumbo RN 10/04/2023 7:39 AM 10/05/2023 Arminda Marie RN 10/03/2023 10:33 AM 10/03/2023 Arminda Reed RN 10/02/2023 8:01 AM pending p2p for [facility] 10/03/2023 Vivienne Wilson RN 10/01/2023 11:05 AM Arminda Lawler RN 09/26/2023 9:06 AM 09/27/2023 MELISSA Carrillo CNP 09/25/2023 1:40 PM Length of Stay (Days): 10 LOS: [address] [place], [place] [id number] Hospital course Narrative* MELISSA Jones CNP - 10/05/2023 12:34 PM EDT Name: Eben Cruz Date of : 1945 Date of Admission: 09/25/2023 Date of Discharge: 10/05/2023 Admitting physician: Amos Nichole MD Discharge Attending: MELISSA Jones CNP Primary Care Physician: Iwona Stewart Review of Systems: Review of Systems Constitutional: Negative for activity change, chills, diaphoresis, fatigue and fever. HENT: Negative for nosebleeds and trouble swallowing. Eyes: Negative for discharge and visual disturbance. Respiratory: Positive for shortness of breath ([place]STIANS[place]). Negative for apnea, cough, chest tightness andwheezing. Cardiovascular: Negative for chest pain, palpitations and leg swelling. Gastrointestinal: Negative for abdominal distention, abdominal pain, blood in stool, diarrhea, nausea and vomiting. Endocrine: Negative for cold intolerance and heat intolerance. Genitourinary: Negative for hematuria. Musculoskeletal: Negative for gait problem and myalgias. Skin: Negative for color change and rash. Neurological: Positive for weakness. Negative for dizziness, seizures, syncope, facial asymmetry, speech difficulty, light-headedness, numbness and headaches. Hematological: Does not bruise/bleed easily. Psychiatric/Behavioral: Negative for dysphoric mood. Physical Exam: Physical Exam Vitals reviewed. Constitutional: General: He is not in acute distress. Appearance: Normal appearance. He is not diaphoretic. Comments: Up in chair HENT: Head: Normocephalic. Mouth/Throat: Pharynx: No oropharyngeal exudate. Eyes: General: Right eye: No discharge. Left eye: No discharge. Extraocular Movements: Extraocular movements intact. Pupils: Pupils are equal, round, and reactive to light. Cardiovascular: Rate and Rhythm: Normal rate and regular rhythm. Frequent Extrasystoles are present. Pulses: Normal pulses. Heart sounds: Normal heart sounds. No murmur heard. No gallop. Pulmonary: Effort: Pulmonary effort is normal. No respiratory distress. Breath sounds: Examination of the right-lower field reveals decreased breath sounds. Examination ofthe left-lower field reveals decreased breath sounds. Decreased breath sounds present. Abdominal: General: Bowel sounds are normal. There is no distension. Palpations: Abdomen is soft. Tenderness: There is no abdominal tenderness. Musculoskeletal: General: Normal range of motion. Cervical back: Normal range of motion and neck supple. Right lower leg: No edema. Left lower leg: No edema. Skin: General: Skin is warm and dry. Capillary Refill: Capillary refill takes less than 2 seconds. Neurological: General: No focal deficit present. Mental Status: He is alert and oriented to person, place, and time. Cranial Nerves: No cranial nerve deficit. Psychiatric: Mood and Affect: Mood normal. 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 ([facility]) HFrEF (heart failure with reduced ejection fraction) ([facility]) EKG: IMPRESSION: Sinus rhythm Nonspecific repol abnormality, lateral leads TELEMETRY: SR 60-70s with PVCs Procedures: Cath Summary: 09/26/23: Conclusions Mildly elevated LVEDP 18 mmHG Severe calcified left main( ostial 50%, distal 80%) stenosis Severe calcified proximal LAD( 80%) stenosis Small D1 with proximal 70% lesion Ostial LCX SECTIONIZER heavily calcified with no collaterals Severely calcified ostial RCA(90%) lesion, mid(30%) and distal RCA(50%) Successful IVUS guided Intravascular Lithotripsy and NORIS of ostial RCA. Successful IVUS guided Intravascular Lithotripsy and NORIS of LMCA. Successful IVUS guided Intravascular Lithotripsy and NORIS of ostial and proximal LAD. Plan DAPT for at least 1 year and fdc if tolerates. Single antiplatelet lifelong High intensity statin Aggressive risk factor modification Optimal GDMT for ischemic cardiomyopathy Remove right femoral arterial sheath once ACT is less than 160 seconds. Patient to lay supine for 6hrs post sheath removal. HOSPITAL COURSE : Mr. 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 On 09/18/23, he had total left hip replacement surgery at [facility]. He had a NSTEMI and was transferred to [facility] [place], then to [facility] for a PCI. On 09/26/23, he had a PCI with IVL and NORIS placed to ostial RCA, LMCA, ostial and proximal LAD. His ostial LCX SECTIONIZER is heavily calcified- for medical management. He developed afib with RVR, started on apixaban and amiodarone load, now s/p successful DCC on amiodarone. Tele SR with PVCs. Echocardiogram on 09/30/23, with EF of 15-20%, BiV failure, Pleural effusions. Dyspnea and diuresed.He is s/p right thoracentesis for 1 liter of clear gold fluid on 10/02. He was seen and evaluated by Advanced Heart Failure team, Orthopedics and Palliative Care and PT/OT. He agreed to a Life Vest at discharge. HF team recommended Toprol xl 50 mg, Farxiga 10 mg, spironolactone 12.5 mg daily. Add Altace as outpatient. Use Diuretic as needed for weight gain. He will also continue amiodarone 400 mg daily x 1 month, then 200 mg daily. He will continue plavix and eliquiswithout interruption and stop aspirin. Patient educated on post PCI discharge activity, cath site care, medications, cardiac rehab, followup care. He is to be discharged to rehab in stable condition. He is to follow up with Dr. Uriel Paredes on October 16 at 2:15 pm. Consider starting low dose altace at that time. Last Labs: Lab Results Component Value Date WBC 9.3 10/05/2023 HGB 9.9 (L) 10/05/2023 HCT 31.7 (L) 10/05/2023 MCV 96.9 10/05/2023 PLT 458 (H) 10/05/2023 Lab Results Component Value Date NA 137 10/05/2023 K 4.3 10/05/2023 CL 105 10/05/2023 CO2 28 10/05/2023 BUN 26 (H) 10/05/2023 CREATININE 1.22 10/05/2023 GLUCOSE 97 10/05/2023 CALCIUM 8.8 10/05/2023 No results found for: CHLPL, CHOL No results found for: TRIG No results found for: HDL No results found for: LDLCALC Final Principle Discharge Diagnosis: NSTEMI/CAD s/p IVL with NORIS to LMCA, ostial RCA, ostial and prox LAD on 09/26/23 - Stable. Denies chest pain. Continue plavix and apixaban without interruption. Will stop aspirin at discharge. Continue atorvastatin, toprol xl, PPI. Cardiac rehab as outpatient once he has rehab for his left hip. Discharge teaching completed including activity, plavix/apixaban (or DAPT) without interruption, daily weights, low fat diet, medications, follow up care. 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 Paredes on October 16 at 2:15pm. Doing well. Agree w present meds. For LifeVest application today. Discharge to [facility] later today. HFrEF 25%, acute on chronic HF Stage C, Class II- III - Stable. Appears well compensated and euvolemic. HF started/ favored Farxiga and stopped torsemideand spironolactone. Continue Toprol xl and farxiga (per HF). Weight not done today, I/O -3.8 literssince admission. Continue daily weights, strict I/O, sodium restriction. GDMT and diuretic per HF. Life Vest at discharge, discussed with patient and he is agreeable. Educated on daily weights and when to call office for 3 lb weight gain overnight. Afib/ Aflutter/ MAT/PVCs/SVT, s/p DCC on 10/02/23 - In SR. Continue amiodarone 400 mg bid until discharge, then decrease to 400 mg for 1 month, then 200 mg daily. Continue apixaban for CHADS2-VASC of 6. Replace electrolytes to keep K+ > 4, Mg > 2. Will decrease amiodarone today at discharge to 400 mg x 1 month. Pleural effusion - Improved, s/p right thoracentesis for 1 liter of fluid. UTI - Antibiotics completed. Hx CVA - With right ECA stenosis. Continue DAPT and atorvastatin. Recent left hip fracture, s/p left hip arthroplasty on 09/18/23 in [place] - Ortho consulted. Weight bearing as tolerated. X-ray stable. PT/OT. Will need SNF at discharge. Tofollow up with surgeon in [place]. HLD - Continue atorvastatin. LDL 39. HTN - Controlled. Had been running low. Continue Toprol xl. Add GDMT as BP tolerates. Debility - PT/OT. Will need SNF at discharge. Discharge likely tomorrow. Goals of care - Palliative care consulted and following. Plan is to discharge to rehab today. Discussed with Dr. Nichole. Follow up arranged with Dr. Paredes, his primary box sealing inspector, on October 16 at 2:15. Discharge instructions given. Discharge Medications: Medication List START taking these medications amiodarone 400 MG tablet Commonly known as: Pacerone Take 1 tablet (400 mg) by mouth daily. For 1 month, then 200 mg daily. apixaban 5 MG tablet Commonly known as: Eliquis Take 1 tablet (5 mg) by mouth 2 times daily. clopidogrel 75 MG tablet Commonly known as: Plavix Take 1 tablet (75 mg) by mouth daily. Start taking on: October 06, 2023 dapagliflozin 10 MG tablet Commonly known as: Farxiga Take 1 tablet (10 mg) by mouth daily. Start taking on: October 06, 2023 melatonin 10 MG tablet Take 1 tablet (10 mg) by mouth Nightly as needed (for sleep). pantoprazole 40 MG EC tablet Commonly known as: ProtoNix Take 1 tablet (40 mg) by mouth every morning (before breakfast). Do not crush, chew, or split. Start taking on: October 06, 2023 polyethylene glycol (PEG) 3350 17 g packet Commonly known as: Miralax Take 17 g by mouth daily for 3 days. Start taking on: October 06, 2023 spironolactone 25 MG tablet Commonly known as: Aldactone Take 0.5 tablets (12.5 mg) by mouth daily. Start taking on: October 06, 2023 torsemide 10 MG tablet Commonly known as: Demadex Take 1 tablet (10 mg) by mouth Daily as needed (for weight gain 3 lbs in day, or 5 lbs in 1 week and with swelling and dyspnea). CHANGE how you take these medications metoprolol succinate XL 50 MG 24 hr tablet Commonly known as: Toprol-XL Take 1 tablet (50 mg) by mouth Nightly. Do not crush or chew. What changed: how much to take when to take this CONTINUE taking these medications atorvastatin 40 MG tablet Commonly known as: Lipitor Calcium Carbonate-Vitamin D 500-5 MG-MCG tablet vitamin C 100 MG tablet zinc gluconate 50 MG tablet STOP taking these medications amLODIPine 2.5 MG tablet Commonly known as: Norvasc aspirin 81 MG EC tablet Where to Get Your Medications Information about where to get these medications is not yet available Ask your nurse or doctor about these medications amiodarone 400 MG tablet apixaban 5 MG tablet clopidogrel 75 MG tablet dapagliflozin 10 MG tablet melatonin 10 MG tablet metoprolol succinate XL 50 MG 24 hr tablet pantoprazole 40 MG EC tablet polyethylene glycol (PEG) 3350 17 g packet spironolactone 25 MG tablet torsemide 10 MG tablet AMI/PCI Registry Information Aspirin: No, other: please specify: to be on plavix and apixaban. P2Y12 Inhibitors: Yes High-Intensity Statin: Yes Beta Melissa: Yes ACEi/ARB/ARNI: No, medical contraindication due to Hypotension Aldosterone Antagonist: Yes Cardiac Rehab: No, discharged to nursing care/long-term care facility Cardiac Rehab The Cardiac Rehab team at [facility] consists of highly skilled exercise physiologists, nurses, respiratory therapists and physicians working together with you. Our purpose is to help you have a full recovery and achieve the goals you set for yourself. Over the years many of our patients have returned to activities they assumed they would never do again! We can help restore your confidence and motivation to make lifestyle changes that can have a significant impact on your health and quality of life! We can help answer questions and concerns you may have about exercise, lifestyle, medications, diet, stress and anxiety which are common following a hospitalization. We monitor ECG and vital signs during exercise and discuss your progress with you and report to your physician. Cardiac Rehab is proven to help reduce readmissions, improve functional capacity and lower recurrence of problems with your heart. We have facilities at both [facility] and [facility]. At both locations we have street level parking which is free and our sites are easily accessible. For both [facility] you can contact us at . We invite you to call us with your questions or to get started in our program. If you have other questions or concerns be sure to ask your provider during your follow up visit. We look forward to seeing you there. Our locations: [facility] [address] [facility] [place] [address] Ground Floor [id number] - Ground floor BMI Classification: Overweight (BMI 25.0-29.9) DIET: A lowfat, low cholesterol diet was discussed with the patient. Discharge to SNF Condition at Discharge: stable Follow up with cardiology October 16 at 2:[address] Uriel Paredes If any questions call [facility] office [phone] Total time spent for Discharge time greater than 31 minutes documented in this encounterSumma [id number] [facility] [place] [facility] Interventional Cardiology Progress Note CC: CAD HPI / Interval History: Mr. 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 On 09/18/23, he had total left hip replacement surgery at [facility]. He had a NSTEMI and was transferred to [place], then to [facility] for a PCI. On 09/26/23, he had a PCI with IVL and NORIS placed to ostial RCA, LMCA, ostial and proximal LAD. His ostial LCX SECTIONIZER is heavily calcified- for medical management. Echocardiogram on 09/30/23, with EF of 15-20%. Pleural effusions. EKG was afib, now s/p successful DCC on amiodarone. Tele SR with PVCs. He is s/p right thoracentesis for 1 liter of clear gold fluid on 10/02. This morning, he is up in chair and he denies any chest pain, dyspnea, palpitations, swelling, bleeding, syncope. He ambulated 200 ft with PT and his O2 sat remained 96-97%, HR 70-80s. He states he did have mild CHRISTIANSEN with this, recovered with rest. Mild lightheadedness, c/o mild dry mouth. +BM, +voiding. Plan is for LifeVest today, with discharge to rehab. He will follow up with Dr. Paredes which is arranged. Denies CP. Breathing improved. Up to chair. Assessment/Plan HF NYHA Class [] I [x] II [] III [] IV NSTEMI/CAD s/p IVL with NORIS to LMCA, ostial RCA, ostial and prox LAD on 09/26/23 - Stable. Denies chest pain. Continue plavix and apixaban without interruption. Will stop aspirin at discharge. Continue atorvastatin, toprol xl, PPI. Cardiac rehab as outpatient once he has rehab for his left hip. Discharge teaching completed including activity, plavix/apixaban (or DAPT) without interruption, daily weights, low fat diet, medications, follow up care. 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 Paredes on October 16 at 2:15pm. Doing well. Agree w present meds. For LifeVest application today. Discharge to [facility] later today. HFrEF 25%, acute on chronic HF Stage C, Class II- III - Stable. Appears well compensated and euvolemic. HF started/ favored Farxiga and stopped torsemide and spironolactone. Continue Toprol xl and farxiga (per HF). Weight not done today, I/O -3.8 liters since admission. Continue daily weights, strict I/O, sodium restriction. GDMT and diuretic per HF. Life Vest at discharge, discussed with patient and he is agreeable. Educated on daily weights and when to call office for 3 lb weight gain overnight. Afib/ Aflutter/ MAT/PVCs/SVT, s/p DCC on 10/02/23 - In SR. Continue amiodarone 400 mg bid until discharge, then decrease to 400 mg for 1 month, then 200 mg daily. Continue apixaban for CHADS2-VASC of 6. Replace electrolytes to keep K+ > 4, Mg > 2. Will decrease amiodarone today at discharge to 400 mg x 1 month. Pleural effusion - Improved, s/p right thoracentesis for 1 liter of fluid. UTI - Antibiotics completed. Hx CVA - With right ECA stenosis. Continue DAPT and atorvastatin. Recent left hip fracture, s/p left hip arthroplasty on 09/18/23 in [place] - Ortho consulted. Weight bearing as tolerated. X-ray stable. PT/OT. Will need SNF at discharge. To follow up with surgeon in [place]. HLD - Continue atorvastatin. LDL 39. HTN - Controlled. Had been running low. Continue Toprol xl. Add GDMT as BP tolerates. Debility - PT/OT. Will need SNF at discharge. Discharge likely tomorrow. Goals of care - Palliative care consulted and following. Plan is to discharge to rehab today. Discussed with Dr. Nichole. Follow up arranged with Dr. Paredes, his primary box sealing inspector, on October 16 at 2:15. Discharge instructions given. Medications: amiodarone, 400 mg, Oral, BID apixaban, 5 mg, Oral, BID vitamin C, 500 mg, Oral, Daily aspirin, 81 mg, Oral, Daily atorvastatin, 40 mg, Oral, Daily Calcium Carb-Cholecalciferol, 1 tablet, Oral, Daily clopidogrel, 75 mg, Oral, Daily dapagliflozin, 10 mg, Oral, Daily metoprolol succinate XL, 50 mg, Oral, Nightly pantoprazole, 40 mg, Oral, qAM AC polyethylene glycol (PEG) 3350, 17 g, Oral, Daily spironolactone, 12.5 mg, Oral, Daily Infusion Medications: Physical Examination: Vitals: 10/04/23 2354 10/05/23 0352 10/05/23 0609 10/05/23 0731 BP: 102/55 105/63 103/64 BP Location: Right arm Right arm Right arm Patient Position: Lying Lying Lying Pulse: 81 78 75 Resp: 13 20 Temp: 36.6 ?C (97.9 ?F) 36.2 ?C (97.2 ?F) 36.6 ?C (97.8 ?F) TempSrc: Temporal Temporal Temporal SpO2: 95% 97% 92% Weight: 190 lb (86.2 kg) Height: Intake/Output Summary (Last 24 hours) at 10/05/2023 0839 Last data filed at 10/05/2023 0609 Gross per 24 hour Intake 236 ml Output 525 ml Net -289 ml Wt Readings from Last 3 Encounters: 10/05/23 190 lb (86.2 kg) Physical Exam Vitals reviewed. Constitutional: General: He is not in acute distress. Appearance: Normal appearance. He is ill-appearing. He is not diaphoretic. Comments: Up in chair on (more content not included)...[facility] 10-05-2023 NotePalliative Care Progress Note Chief Complaint: Eben Cruz is a 78 y.o. male with chief complaint of shortness of breath. Palliative Care is signing off, please re-consult if needed. (add SIGNOFFTRANSITION dotphrase below) Assessment/Plan Shortness of breath/B pleural effusions - multifactorial, hx HFrEF, NSTEMI - per primary: prn duonebs - on room air - just finished walking 200ft with PT, denies shortness of breath HFrEF/CAD/HTN/afib/NSTEMI - ECHO from 09/30/23 report reviewed - post NORIS to LMCA, ostial RCA, ostial and proximal LAD 09/26/23 - cardiology primary: amiodarone, apixaban (held today), asa, atorvastatin, clopidogrel, metoprolol succinate, ticagrelor (dc 10/01/23), torsemide--currently held - had DCCV 10/02/23-remains in NSR, also helpful for his breathing - will have life vest at dc and see [facility] box sealing inspector at dc - will also make referral to life care palliative team who sees patients in [place] area UTI - per primary: ceftriaxone--completed Debility - PT/OT recommending SNF--awaiting acceptance - 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, 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 L hip fracture - post arthroplasty 09/18/23 - SNF at dc - ortho removed sutures 10/02/23 Risk for constipation - no longer feels constipated, BM 10/03/23 - changed prn polyethylene glycol to schedule Insomnia, depression, poor appetite - major life change - 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 They currently have no uncontrolled symptoms and have established goals of care and we have signed off of their case. The patient has established follow-up with cardiology and life care palliative team and PCP. Total of 40 minutes spent on this encounter including Chart review, Patient visit and exam, Documentation in EHR, Care coordination, Communicating with primary attending or other consultants, and Counseling and educating patient/family/caregiver. Discharge planning: Signing off, discharge disposition per primary team Patient meets criteria for general inpatient hospice care including the following: N/A - Palliative Care Patient Referrals to: None Discussed patient and the plan of care with the other interdisciplinary team (IDT) members of Palliative Care Team, and with Primary Provider, Patient, and Floor Nurse Insert attestation statement here if applicable (.disupervision) or (.npattest) Subjective: Subjective/Events Since last seen: ambulating with therapy, 150ft yesterday, 200ft today, sitting up in bedside chair in NAD without pain, CP, abdominal pain, breathing not labored, no nausea, vomiting, last BM 10/03/23 Eben Cruz is a 78 y.o. male living independently at home, still driving, working [employer] for [employer]. PMHx includes: HTN, HLD, partial R CVA. At [facility] for L total hip replacement but complicated by requirement of wound vac, was at SNF. transferred to [place] for cardiology NSTEMI, transferred to [facility] for PCI. Family called with stating he needs to be DNR but he is oriented, palliative care consulted for goals of care Goals of care:Continue Current Management Functional Assessment: PPS: 50% Advance Directives: Full Code Surrogate: Child Prognosis: unknown Spiritual assessment: No spiritual distress identified Bereavement and grief: Grief Issues Not Identified Review of Systems ROS: See palliative care ROS/ESAS below; All other systems were reviewed and are negative. [place] Symptom Assessment Score [place] Score Pain Score 0 Tiredness Score 0 Nausea Score 0 Depression Score 0 Anxiety Score 0 Drowsiness Score 0 Anorexia Score (0= eating well, 10= not eating) 7 Wellbeing Score (10= worst sense of well-being) 0 Constipation 0 Dyspnea Score (0= no shortness of breath) 0 FLACC Scale (For Pain Assessment of the Non-Verbal Patient) Patient is verbal Assessed by: patient and provider. 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 Physical Exam Vitals and nursing note reviewed. Constitutional: Appearance: He is normal (more content not included)...[facility] [employer] [facility] 10-05-2023 History of Present illness Narrative* Amos Nichole MD - 10/05/2023 8:38 AM EDT [facility] [place] [facility] Interventional Cardiology Progress Note CC: CAD HPI / Interval History: Mr. 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 On 09/18/23, he had total left hip replacement surgery at [facility]. He had a NSTEMI and was transferred to [place], then to [facility] for a PCI. On 09/26/23, he had a PCI with IVL and NORIS placed to ostial RCA, LMCA, ostial and proximal LAD. His ostial LCX SECTIONIZER is heavily calcified- for medical management. Echocardiogram on 09/30/23, with EF of 15-20%. Pleural effusions. EKG was afib, now s/p successful DCC on amiodarone. Tele SR with PVCs. He is s/p right thoracentesis for 1 liter of clear gold fluid on 10/02. This morning, he is up in chair and he denies any chest pain, dyspnea, palpitations, swelling, bleeding, syncope. He ambulated 200 ft with PT and his O2 sat remained 96-97%, HR 70-80s. He states he did have mild CHRISTIANSEN with this, recovered with rest. Mild lightheadedness, c/o mild dry mouth. +BM, +voiding. Plan is for LifeVest today, with discharge to rehab. He will follow up with Dr. Paredes which is arranged. Denies CP. Breathing improved. Up to chair. Assessment/Plan HF NYHA Class [] I [x] II [] III [] IV NSTEMI/CAD s/p IVL with NORIS to LMCA, ostial RCA, ostial and prox LAD on 09/26/23 - Stable. Denies chest pain. Continue plavix and apixaban without interruption. Will stop aspirin at discharge. Continue atorvastatin, toprol xl, PPI. Cardiac rehab as outpatient once he has rehab for his left hip. Discharge teaching completed including activity, plavix/apixaban (or DAPT) without interruption, daily weights, low fat diet, medications, follow up care. 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 Paredes on October 16 at 2:15pm. Doing well. Agree w present meds. For LifeVest application today. Discharge to [facility] later today. HFrEF 25%, acute on chronic HF Stage C, Class II- III - Stable. Appears well compensated and euvolemic. HF started/ favored Farxiga and stopped torsemideand spironolactone. Continue Toprol xl and farxiga (per HF). Weight not done today, I/O -3.8 literssince admission. Continue daily weights, strict I/O, sodium restriction. GDMT and diuretic per HF. Life Vest at discharge, discussed with patient and he is agreeable. Educated on daily weights and when to call office for 3 lb weight gain overnight. Afib/ Aflutter/ MAT/PVCs/SVT, s/p DCC on 10/02/23 - In SR. Continue amiodarone 400 mg bid until discharge, then decrease to 400 mg for 1 month, then 200 mg daily. Continue apixaban for CHADS2-VASC of 6. Replace electrolytes to keep K+ > 4, Mg > 2. Will decrease amiodarone today at discharge to 400 mg x 1 month. Pleural effusion - Improved, s/p right thoracentesis for 1 liter of fluid. UTI - Antibiotics completed. Hx CVA - With right ECA stenosis. Continue DAPT and atorvastatin. Recent left hip fracture, s/p left hip arthroplasty on 09/18/23 in [place] - Ortho consulted. Weight bearing as tolerated. X-ray stable. PT/OT. Will need SNF at discharge. Tofollow up with surgeon in [place]. HLD - Continue atorvastatin. LDL 39. HTN - Controlled. Had been running low. Continue Toprol xl. Add GDMT as BP tolerates. Debility - PT/OT. Will need SNF at discharge. Discharge likely tomorrow. Goals of care - Palliative care consulted and following. Plan is to discharge to rehab today. Discussed with Dr. Nichole. Follow up arranged with Dr. Paredes, his primary box sealing inspector, on October 16 at 2:15. Discharge instructions given. Medications: amiodarone, 400 mg, Oral, BID apixaban, 5 mg, Oral, BID vitamin C, 500 mg, Oral, Daily aspirin, 81 mg, Oral, Daily atorvastatin, 40 mg, Oral, Daily Calcium Carb-Cholecalciferol, 1 tablet, Oral, Daily clopidogrel, 75 mg, Oral, Daily dapagliflozin, 10 mg, Oral, Daily metoprolol succinate XL, 50 mg, Oral, Nightly pantoprazole, 40 mg, Oral, qAM AC polyethylene glycol (PEG) 3350, 17 g, Oral, Daily spironolactone, 12.5 mg, Oral, Daily Infusion Medications: Physical Examination: Vitals: 10/04/23 2354 10/05/23 0352 10/05/23 0609 10/05/23 0731 BP: 102/55 105/63 103/64 BP Location: Right arm Right arm Right arm Patient Position: Lying Lying Lying Pulse: 81 78 75 Resp: 13 20 Temp: 36.6 C (97.9 F) 36.2 C (97.2 F) 36.6 C (97.8 F) TempSrc: Temporal Temporal Temporal SpO2: 95% 97% 92% Weight: 190 lb (86.2 kg) Height: Intake/Output Summary (Last 24 hours) at 10/05/2023 0839 Last data filed at 10/05/2023 0609 Gross per 24 hour Intake 236 ml Output 525 ml Net -289 ml Wt Readings from Last 3 Encounters: 10/05/23 190 lb (86.2 kg) Physical Exam Vitals reviewed. Constitutional: General: He is not in acute distress. Appearance: Normal appearance. He is ill-appearing. He is not diaphoretic. Comments: Up in chair on room air. HENT: Head: Normocephalic. Right Ear: External ear normal. Left Ear: External ear normal. Mouth/Throat: Mouth: Mucous membranes are moist. Pharynx: No oropharyngeal exudate. Eyes: General: Right eye: No discharge. Left eye: No discharge. Extraocular Movements: Extraocular movements intact. Pupils: Pupils are equal, round, and reactive to light. Neck: Vascular: No JVD. Cardiovascular: Rate and Rhythm: Normal rate and regular rhythm. Frequent Extrasystoles are present. Pulses: Normal pulses. Heart sounds: S1 normal and S2 normal. Murmur heard. No gallop. Comments: Right femoral site without bleeding or hematoma. Pulmonary: Effort: Pulmonary effort is normal. No respiratory distress. Breath sounds: Examination of the right-lower field reveals decreased breath sounds. Examination ofthe left-lower field reveals decreased breath sounds. Decreased breath sounds present. Abdominal: General: Bowel sounds are normal. There is no distension. Palpations: Abdomen is soft. Tenderness: There is no abdominal tenderness. Genitourinary: Comments: Voids aydin urine. Musculoskeletal: General: Normal range of motion. Cervical back: Normal range of motion and neck supple. Right lower leg: No edema. Left lower leg: No edema. Comments: Left hip incision is well approximated. Excoriation to surrounding skin. Skin: General: Skin is warm and dry. Capillary Refill: Capillary refill takes less than 2 seconds. Coloration: Skin is pale. Neurological: General: No focal deficit present. Mental Status: He is alert and oriented to person, place, and time. Cranial Nerves: No cranial nerve deficit. Psychiatric: Mood and Affect: Mood normal. Laboratory Tests: Recent Labs 10/03/2313510/04/2313610/05/23 0036 NA 137 138 137 K 4.1 4.1 4.3 CL 105 105 105 CO2 26 28 28 BUN 27* 26* 26* CREATININE 1.19 1.09 1.22 Recent Labs 10/03/2313510/04/2313610/05/23 0036 WBC 13.8* 11.2* 9.3 HGB 10.5* 10.3* 9.9* HCT 34.0* 33.8* 31.7* MCV 98.8 97.7 96.9 PLT 478* 459* 458* No results for input(s): CKTOTAL, CKMB, CKMBINDEX, TROPONINI in the last 72 hours. No results for input(s): BNP in the last 72 hours. No results for input(s): TRIG, HDL, LDLCALC, CHOL in the last 72 hours. No results found for: LDLCHOLESTER Lab Results Component Value Date TSH 2.409 09/29/2023 EF BP Date Value Ref Range Status 09/30/2023 38 (A) 55 - 100 % Final 09/25/23 TRANSTHORACIC ECHOCARDIOGRAM (TTE) COMPLETE (CONTRAST/BUBBLE/3D PRN) 09/30/2023 6:33 PM (Final) Interpretation Summary Left Ventricle: Left ventricle is moderately dilated. Normal wall thickness. Severely reduced left ventricular systolic function. The EF by visual approximation is 15-20%. Severe global hypokinesis present. Right Ventricle: Right ventricle is mildly dilated. Mildly reduced systolic function. Aortic Valve: Mild to moderate stenosis of the aortic valve. AV mean gradient is 6 mmHg. AV peak gradient is 11 mmHg. LVOT:AV VTI Index is 0.35. AV area by continuity VTI is 1.1 cm2. Mitral Valve: Moderate (2+) regurgitation. Left Atrium: Left atrium is moderately dilated. Signed by: Frederick Mcclelland MD on 09/30/2023 6:33 PM [facility] 10/02/23: Cardioversion basis: elective Pre-procedure rhythm: atrial fibrillation Electrodes: pads Electrodes placed: anterior-posterior Number of attempts: 1 Attempt 1 mode: synchronous Attempt 1 waveform: monophasic Attempt 1 shock (in Joules): 300 Attempt 1 outcome: conversion to normal sinus rhythm Post-procedure rhythm: normal sinus rhythm Complications: no complications Patient tolerance: patient tolerated the procedure well with no immediate complications Other reports reviewed: PCI/ IVL 09/26/23: Conclusions Mildly elevated LVEDP 18 mmHG Severe calcified left main( ostial 50%, distal 80%) stenosis Severe calcified proximal LAD( 80%) stenosis Small D1 with proximal 70% lesion Ostial LCX SECTIONIZER heavily calcified with no collaterals Severely calcified ostial RCA(90%) lesion, mid(30%) and distal RCA(50%) Successful IVUS guided Intravascular Lithotripsy and NORIS of ostial RCA. Successful IVUS guided Intravascular Lithotripsy and NORIS of LMCA. Successful IVUS guided Intravascular Lithotripsy and NORIS of ostial and proximal LAD. Plan DAPT for at least 1 year and ocean transportation intermediary if tolerates. Single antiplatelet lifelong High intensity statin Aggressive risk factor modification Optimal GDMT for ischemic cardiomyopathy Remove right femoral arterial sheath once ACT is less than 160 seconds. Patient to lay supine for 6hrs post sheath removal. Thoracentesis 10/03/2023: IMPRESSION: Successful ultrasound-guided right thoracentesis with drainage of 1050 milliliters of clear gold fluid. Cardiac Tests: ECG: IMPRESSION: Sinus rhythm Nonspecific repol abnormality, lateral leads Telemetry findings reviewed: SR 80s with frequent PVCs EF BP Date Value Ref Range Status 09/30/2023 38 (A) 55 - 100 % Final Elisa Goldstein, PAINT TECHNICIAN - AIRPLANE FIRST OFFICER Date Of Service 10/05/2023 I, Dr. Amos Nichole, saw and evaluated the patient on 10/05/2023. I personally obtained the morrow and critical portions of the history and physical exam. I reviewed the labs, imaging studies, and electronic medical record. I reviewed the MARITZA's documentation, and discussed the patient with the MARITZA. Alfonsoee with the MARITZA's medical decision making and have edited the note to reflect my clinical findings and my assessment and plan. I performed a substantive portion of the care of this patient. Total time 35 minutes. * Yajaira Thakkar, MELISSA - AIRPLANE FIRST OFFICER - 10/05/2023 7:43 AM EDT Images from the original note were not included. Palliative Care Progress Note Chief Complaint: Eben Cruz is a 78 y.o. male with chief complaint of shortness of breath. Palliative Care is signing off, please re-consult if needed. (add SIGNOFFTRANSITION dotphrase below) Assessment/Plan Shortness of breath/B pleural effusions - multifactorial, hx HFrEF, NSTEMI - per primary: prn duonebs - on room air - just finished walking 200ft with PT, denies shortness of breath HFrEF/CAD/HTN/afib/NSTEMI - ECHO from 09/30/23 report reviewed - post NORIS to LMCA, ostial RCA, ostial and proximal LAD 09/26/23 - cardiology primary: amiodarone, apixaban (held today), asa, atorvastatin, clopidogrel, metoprololsuccinate, ticagrelor (dc 10/01/23), torsemide--currently held - had DCCV 10/02/23-remains in NSR, also helpful for his breathing - will have life vest at [facility] and see [facility] box sealing inspector at [facility] - will also make referral to [facility] palliative team who sees patients in [place] area UTI - per primary: ceftriaxone--completed Debility - PT/OT recommending SNF--awaiting acceptance - 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, 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 L hip fracture - post arthroplasty 09/18/23 - SNF [facility] - ortho removed sutures 10/02/23 Risk for constipation - no longer feels constipated, BM 10/03/23 - changed prn polyethylene glycol to schedule Insomnia, depression, poor appetite - major life change - 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 They currently have no uncontrolled symptoms and have established goals of care and we have signed off of their case. The patient has established follow-up with cardiology and life care palliative team and PCP. Total of 40 minutes spent on this encounter including Chart review, Patient visit and exam, Documentation in EHR, Care coordination, Communicating with primary attending or other consultants, and Counseling and educating patient/family/caregiver. Discharge planning: Signing off, discharge disposition per primary team Patient meets criteria for general inpatient hospice care including the following: N/A - PalliativeCare Patient Referrals to: None Discussed patient and the plan of care with the other interdisciplinary team (IDT) members of Palliative Care Team, and with Primary Provider, Patient, and Floor Nurse Insert attestation statement here if applicable (.disupervision) or (.npattest) Subjective: Subjective/Events Since last seen: ambulating with therapy, 150ft yesterday, 200ft today, sitting up in bedside chairin NAD without pain, CP, abdominal pain, breathing not labored, no nausea, vomiting, last BM 10/03/23 Eben Cruz is a 78 y.o. 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 PMHx includes: HTN, HLD, partial R CVA. At [facility] for L total hip replacement but complicated by requirement of wound vac, was at SNF. transferred to [place] for cardiology NSTEMI, transferred to [facility] for PCI. Family called with stating he needs to be DNR but he is oriented, palliative care consulted for goals of care Goals of care:Continue Current Management Functional Assessment: PPS: 50% Advance Directives: Full Code Surrogate: Child Prognosis: unknown Spiritual assessment: No spiritual distress identified Bereavement and grief: Grief Issues Not Identified Review of Systems ROS: See palliative care ROS/ESAS below; All other systems were reviewed and are negative. [place] Symptom Assessment Score [place] Score Pain Score 0 Tiredness Score 0 Nausea Score 0 Depression Score 0 Anxiety Score 0 Drowsiness Score 0 Anorexia Score (0= eating well, 10= not eating) 7 Wellbeing Score (10= worst sense of well-being) 0 Constipation 0 Dyspnea Score (0= no shortness of breath) 0 FLACC Scale (For Pain Assessment of the Non-Verbal Patient) Patient is verbal Assessed by: patient and provider. 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 Constitutional: Appearance: He is normal weight. HENT: Head: Normocephalic and atraumatic. Mouth/Throat: Mouth: Mucous membranes are moist. Eyes: General: Right eye: No discharge. Left eye: No discharge. Cardiovascular: Rate and Rhythm: Normal rate and regular rhythm. Pulmonary: Effort: Pulmonary effort is normal. Genitourinary: Comments: Continent Musculoskeletal: Cervical back: Normal range of motion and neck supple. Neurological: General: No focal deficit present. Mental Status: He is oriented to person, place, and time. Psychiatric: Mood and Affect: Mood normal. Behavior: Behavior normal. Current Medications: Inpatient medications reviewed: yes Home medications reviewed: yes OARRS Reviewed: copied from initial consult: Yes-oxycodone 5mg #28(7D) filled 05/2023, all other prior to this 24 Hour PRN Meds: no PRN medications in 24 hours Results/Verification of Data Review Objective data reviewed (be specific which labs, imaging reports with dates reviewed): MAR/vitals/labs reviewed 10/05/23 Data in Support of Terminal Illness: Is patient hospice appropriate? TBD * BARRETT Macario - 10/04/2023 2:03 PM EDT Images from the original note were not included. OCCUPATIONAL THERAPY [facility] Treatment Note Name/MRN: Eben Cruz ([id number]) Date of : 1945 Age: 78 y.o. Room/Bed: 1C-130/1C-130 A Discharge Recommendation: Nursing Home Facility Equipment Needed: Yes (FWW) Prior Level of Function ADL Assistance: Independent Ambulation Assistance: Independent Transfer Assistance: Independent Assessment Currently Pt required MOD A for functional transfers and mobility with use of FWW. Pt required MOD A for UB ADL d/t limited ROM of bilateral shoulders. Pt required MAX A for LB ADL. Pt required MOD A for toilet transfer & MAX A for posterior hygiene. Pt is limited by pain, decreased standing balance and decreased mobility hindering indep and safety with functional tasks. Recommending SNF upon discharge in order to achieve highest level of function. Subjective Pt seated in recliner chair upon entry. Pt denies pain. RN approved of therapy. Pt pleasant and agreeable to OT TX. Pt stated I'm slowly on the mend! Pain: Pt denies any current pain. Medical Precautions: No active isolations Proper PPE donned/doffed in accordance with facility standards. Fall Risk: Davila Fall Risk Score: 60 (High Risk) Precautions/Restrictions: Left LE Weight Bearing: Weight Bearing As Tolerated Hip Precautions: Anterior Hip Precautions Lines/Drains/Airways: PIV Family/Caregiver Present: none Objective ADLs Grooming: Mod Assist, after setup- MOD A for static standing balance to perform oral hygiene and washing face with set up assist to gather ADL supplies required and physical assist to unthread cap oftoothpaste d/t decreased FMC. UE Bathing: Mod Assist- physical assist to wash axillary region , sides of body and back d/t limited bilateral shoulder ROM. LE Bathing: Max Assist- to was below knees- educated on LHS to increase indep and safety of task and maintain anterior hip precuations. UE Dressing: Min Assist- to thread LUE into sleeve of gown and to doff off RUE. LE Dressing: Dependent to doff/ ian gripper socks Toileting: Mod Assist, Max Assist- MOD A for transfer for safety turning and safe walker mgmt; MAX A for posterior hygiene- Pt able to perform anterior hygiene with MOD support to maintain static standing balance. Transfers/Mobility Sit to stand: Mod Assist Stand to sit: Min Assist Standing balance: Mod Assist Functional mobility: Mod Assist Device(s) used: FWW Plan Continue acute OT per plan of care. Safety/Education Safety Safety Devices in place: All fall risk precautions in place, call light within reach, left in chair, chair alarm in place, and nurse notified Restraints: No Education Education Given To: patient Education Provided: OT Role, Plan of Care, ADL Adaptive Strategies, Transfer Training, Energy Conservation, Discharge Recommendations, Benefits of Increasing Activity, and Breathing Techniques, &Anterior hip precautions Education Method: Verbal, Demonstration, and Teach Back Barriers to Learning: None Education Outcome: Verbalized Understanding and Continued Education Needed AM-PAC Goals Patient Stated Goal: to get stronger Encounter Problems Encounter Problems (Active) Balance Patient will maintain dynamic standing balance for 3-5 minutes with SBA in order to demonstrate decreased risk of falling. Start: 10/01/23 Expected End: 10/29/23 Goal note on 10/04/23 1401 by BARRETT Macario Pt instructed on static standing balance requiring MOD A for approx 3 minutes x 2 for standing grooming task without a seated rest period required + verbal cues for improved posture and pursed lip breathing to reduce fatigue. Bathing Patient will utilize adaptive techniques to bathe body min A. Start: 10/01/23 Expected End: 10/29/23 Dressing Upper Extremities Patient will complete upper body dressing SBA. Start: 10/01/23 Expected End: 10/29/23 Dressings Lower Extremities Patient will dress lower body min A. Start: 10/01/23 Expected End: 10/29/23 Toileting Patient will complete toileting tasks at standard toilet with min assist. Start: 10/01/23 Expected End: 10/29/23 Therapy Time Individual Co-treatment Time In 1322 Time Out 1358 Minutes 36 Timed Code Treatment Minutes: 36 Minutes (1-ADL; 1- FUNCT ACT) BARRETT Macario * Thi Ludwig PA-C - 10/04/2023 1:22 PM EDT Images from the original note were not included. Orthopedic Progress Note Name: Eben Cruz Date:10/04/2023 Attending:Amos Nichole MD Subjective CHIEF COMPLAINT: status post left anterior hip arthroplasty on 09/17 at [place] HPI: Patient is seen resting in bed. He reports that he is not having much pain into his left hip at rest. Patient endorses difficulty with ambulation secondary to hip pain. He denies any numbness ortingling into his lower extremity. Patient denies any fevers, chills, or feelings of malaise. Discussed with patient that he should follow-up with his original surgeon at discharge. 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 ([facility]) HFrEF (heart failure with reduced ejection fraction) ([facility]) PAST SURGICAL HISTORY Past Surgical History: Procedure Laterality Date CARDIAC CATHETERIZATION N/A 09/26/2023 Performed by Amos Nichole MD at [facility] Cardiac Cath/EP Lab CARDIAC CATHETERIZATION N/A 09/26/2023 Performed by Amos Nichole MD at [facility] Cardiac Cath/EP Lab HERNIA REPAIR INVASIVE VASCULAR PROCEDURE N/A 09/26/2023 Performed by Amos Nichole MD at [facility] Cardiac Cath/EP Lab JOINT REPLACEMENT both hip replacements, L shoulder HOME MEDICATIONS Prior to Admission medications Medication Sig Start Date End Date Taking? Authorizing Provider amLODIPine (Norvasc) 2.5 MG tablet Take 2.5 mg by mouth daily. Historical Provider, Ascorbic Acid (vitamin C) 100 MG tablet Take 100 mg by mouth daily. Unknown dosage Historical Provider, aspirin 81 MG EC tablet Take 81 mg by mouth daily. Historical Provider, atorvastatin (Lipitor) 40 MG tablet Take 40 mg by mouth daily. Historical Provider, Calcium Carbonate-Vitamin D 500-5 MG-MCG tablet Take by mouth. Historical Provider, metoprolol succinate XL (Toprol-XL) 50 MG 24 hr tablet Take 25 mg by mouth in the morning and 25 mgin the evening. Do not crush or chew.. Historical Provider, zinc gluconate 50 MG tablet Take 50 mg by mouth daily. Historical Provider, CURRENT HOSPITAL MEDICATIONS Current Facility-Administered Medications: acetaminophen (Tylenol) tablet 650 mg, 650 mg, Oral, q6h PRN, 650 mg at 10/01/231947 OR acetaminophen (Tylenol) suppository 650 mg, 650 mg, Rectal, q6h PRN, Ashleigh Morrison, PAINT TECHNICIAN - AIRPLANE FIRST OFFICER amiodarone (Pacerone) tablet 400 mg, 400 mg, Oral, BID, Elisa Goldstein PAINT TECHNICIAN - AIRPLANE FIRST OFFICER, 400 mg at 10/04/23 0940 apixaban (Eliquis) tablet 5 mg, 5 mg, Oral, BID, Christopher Skyub, DO, 5 mg at 10/04/23 0941 ascorbic acid (Vitamin C) tablet 500 mg, 500 mg, Oral, Daily, Ashleigh Perkins Puliafico, PAINT TECHNICIAN - AIRPLANE FIRST OFFICER, 500 mg at 10/04/23 0940 aspirin EC tablet 81 mg, 81 mg, Oral, Daily, Ashleigh Zuletaiafijojo, PAINT TECHNICIAN - AIRPLANE FIRST OFFICER, 81 mg at 10/04/23 0941 atorvastatin (Lipitor) tablet 40 mg, 40 mg, Oral, Daily, Ashleigh Zuletaiafico, PAINT TECHNICIAN - AIRPLANE FIRST OFFICER, 40 mg at 10/04/23 0941 Calcium Carb-Cholecalciferol 500-5 MG-MCG per tablet 1 tablet, 1 tablet, Oral, Daily, Elisa Goldstein PAINT TECHNICIAN - AIRPLANE FIRST OFFICER, 1 tablet at 10/04/23 0941 clopidogrel (Plavix) tablet 75 mg, 75 mg, Oral, Daily, Ashleigh Zuletaiafijojo PAINT TECHNICIAN - AIRPLANE FIRST OFFICER, 75 mg at 10/04/23 0942 dapagliflozin (Farxiga) tablet 10 mg, 10 mg, Oral, Daily, Charlette Borrero MD, 10 mg at 10/04/23 1129 ipratropium-albuterol (Duo-Neb) 0.5-2.5 mg/3 mL nebulizer solution 3 mL, 3 mL, Nebulization, q8h PRN, Elisa Goldstein APRN - AIRPLANE FIRST OFFICER, 3 mL at 10/02/232155 melatonin tablet 10 mg, 10 mg, Oral, Nightly PRN, Travis Crawford MD, 10 mg at 10/01/231947 metoprolol succinate XL (Toprol-XL) 24 hr tablet 50 mg, 50 mg, Oral, Nightly, Christopher Shaub, DO naloxone (Narcan) injection 0.4 mg, 0.4 mg, IntraVENous, q5 min PRN, Amos Nichole MD pantoprazole (ProtoNix) EC tablet 40 mg, 40 mg, Oral, qAM AC, Ashleigh Perkins Puliafico, PAINT TECHNICIAN - AIRPLANE FIRST OFFICER, 40 mg at 10/04/23 0610 polyethylene glycol (PEG) 3350 (Miralax) packet 17 g, 17 g, Oral, Daily, Yajaira Thakkar, PAINT TECHNICIAN - AIRPLANE FIRST OFFICER, 17 g at 09/29/23 0750 promethazine (Phenergan) tablet 12.5 mg, 12.5 mg, Oral, q6h PRN, Cliff Cast Jr., MD spironolactone (Aldactone) tablet 12.5 mg, 12.5 mg, Oral, Daily, Christopher Shaub, DO, 12.5 mg at 10/03/23 1222 ALLERGIES: Entresto [sacubitril-valsartan] and Wool alcohol [lanolin] SOCIAL HISTORY: Social History Socioeconomic History Marital status: Spouse name: Not on file Number of children: Not on file Years of education: Not on file Highest education level: Not on file Occupational History Not on file Tobacco Use Smoking status: Never Smokeless tobacco: Never Vaping Use Vaping Use: Never used Substance and Sexual Activity Alcohol use: Never Drug use: Never Sexual activity: Not on file Other Topics Concern Not on file Social History Narrative Not on file Social Determinants of Health Financial Resource Strain: Not on file Food Insecurity: Not on file Transportation Needs: Not on file Physical Activity: Not on file Stress: Not on file Social Connections: Not on file Intimate Partner Violence: Not At Risk (09/25/2023) Humiliation, Afraid, Rape, and Kick questionnaire Fear of Current or Ex-Partner: No Emotionally Abused: No Physically Abused: No Sexually Abused: No Housing Stability: Not on file FAMILY HISTORY: No family history on file. Further Family History is noncontributory to this injury. REVIEW OF SYSTEMS: Review of Systems - General ROS: negative for - chills, fatigue, fever, malaise or night sweats Psychological ROS: negative Ophthalmic ROS: negative ENT ROS: negative for - headaches or sore throat Hematological and Lymphatic ROS: negative for - bleeding problems or blood clots Respiratory ROS: no cough, shortness of breath, or wheezing Cardiovascular ROS: no chest pain or dyspnea on exertion Gastrointestinal ROS: negative Musculoskeletal ROS: See HPI Neurological ROS: negative for - bowel and bladder control changes, gait disturbance or numbness/tingling All other systems reviewed and are negative VITALS: Vitals: 10/03/23 2330 10/04/23 0350 10/04/23 0745 10/04/23 1130 BP: 90/56 (!) 95/46 91/63 98/56 BP Location: Patient Position: Pulse: 86 80 85 Resp: (!) 26 23 20 Temp: 36.4 C (97.6 F) 36.4 C (97.5 F) 36.5 C (97.7 F) 36.4 C (97.5 F) TempSrc: Temporal Temporal Temporal Temporal SpO2: 98% 94% 96% Weight: Height: PHYSICAL EXAM: GENERAL: Patient is well developed/well nourished in NAD. A+O x 4 MOOD AND AFFECT: Calm appropriate to situation GAIT AND STATION: Patient is in bed COORDINATION and BALANCE: Patient is grossly coordinated LYMPHADENOPATHY: none on examination of the affected extremity(s) LLE INSPECTION SKIN: Surgical edges were found to be clean and well approximated with trace amount of blood from incision sites. Skin did not exhibit induration or erythema. No signs of infection noted at this time. Steri-Strips present about the inferior aspect of the incision. NEUROLOGICAL: SILT intact to +Saphenous/Superficial Peroneal/Deep Peroneal/Tibial/Sural distributions MOTOR: +Dorsiflexion/Plantarflexion/Great toe extension VASCULAR: Palpable dorsalis pedis pulse. Capillary refill to all 5 lower extremity digits was briskand all digits were warm to touch. LABS: CBC: Lab Results Component Value Date WBC 11.2 (H) 10/04/2023 RBC 3.46 (L) 10/04/2023 BMP: Lab Results Component Value Date GLUCOSE 102 (H) 10/04/2023 CO2 28 10/04/2023 BUN 26 (H) 10/04/2023 CREATININE 1.09 10/04/2023 CALCIUM 8.6 10/04/2023 PT/INR: No results found for: PT, INR, APTT Type and Screen: No results found for: RH, LABANTI CRP: No results found for: CRP ESR: No results found for: SEDRATE HgBA1c: No components found for: LABA1C The above labs were reviewed by me. Assessment Eben is a 78 y.o.male status post left anterior hip arthroplasty on 09/17 at [place] Plan -No acute surgical intervention -WBAT -Activity as tolerated -Ice -PT/OT as able -Neurovascular checks -Skin checks -Follow-up outpatient w/ Dr. Schreiber; further care per Dr. Schreiber -Dispo per primary -Orthopaedic surgery will sign off. Please page patient consumer marketer orthopaedic resident for questions or concerns. * Brielle Metzger, PT - 10/04/2023 1:09 PM EDT Images from the original note were not included. PHYSICAL THERAPY [facility] Treatment Note Name/MRN: Eben Cruz ([id number]) Date of : 1945 Age: 78 y.o. Room/Bed: 1C-130/1C-130 A Discharge Recommendation: Nursing Home Facility Equipment Needed: No Other: He has a walker and a cane at home to use. Assessment Mr Cruz is up in the chair today, nicely alert and joking around. He is willing to ambulate in the halls with PT. He was worried about his lunch coming, but was reassured that he will be in this unit and able to be back in time for it to still be warm. It has not yet arrived. His daughter is in the room visiting. He ambulated around the unit today, stopping x 2 to catch his breath in standing. Recommend SNF upon discharge. He needs to work on endurance, control of descent to the chair or bed,and strengthening toward independence. Subjective He is pleasant and cooperative today, even jovial. Pain: RN managing pain. Medical Precautions: No active isolations Proper PPE donned/doffed in accordance with facility standards. Fall Risk: Davila Fall Risk Score: 60 (High Risk) Precautions/Restrictions: Left LE Weight Bearing: Weight Bearing As Tolerated Hip Precautions: Anterior Hip Precautions Lines/Drains/Airways: PIV Overall Cognitive Status: WFL Overall Orientation Status: Oriented x4 Family/Caregiver Present: child(adam) Objective Ambulation Ambulation 1 Assistive device(s) used: front wheeled walker Assist level: Min Assist Distance (ft): 50' x 4 with standing rest breaks. Quality of gait: antalgic, reciprocal stepping, uneven step length, narrow MARISA Transfers/Mobility Sit to stand: Mod Assist Stand to sit: Mod Assist Poor control of descent to the chair. Device(s) used: front wheeled walker Exercises Exercises Hip Flexion: x 10 Knee Long Arc Quad: x 15 Balance: fair Posture: fair Sitting - Static: Modified Independent Sitting - Dynamic: Modified Independent Standing - Static: Min Assist Standing - Dynamic: Min Assist Plan Continue acute PT per plan of care. Safety/Education Safety Safety Devices in place: call light within reach, left in chair, gait belt, and nurse notified Restraints: No Education Education Given To: patient and patient and daughter Education Provided: PT Role, PT Goals, Gait Training, Transfer Training, Equipment, and Fall Prevention Education Education Method: Verbal and Demonstration Barriers to Learning: Hearing Education Outcome: Continued Education Needed Outcome Measures AM-PAC AM-PAC Inpatient Mobility Raw Score (No Stairs) : 12 JH-HLM JH-HLM Score: Walked 25 ft or more (i.e. walked outside of room) Goals Patient Stated Goal: To get stronger, be able to get around better. Encounter Problems Encounter Problems (Active) Mobility Patient will ambulate 50 feet with mod assist and least restrictive device in order to improve safety and independence with mobility. (Progressing) Start: 09/27/23 Expected End: 10/18/23 Patient will ascend and descend 2 stairs with one railing and min assist in order to safely negotiate home. (Not Addressed) Start: 09/27/23 Expected End: 10/18/23 Transfers Patient will perform bed mobility with min assist in order to improve independence and prepare for out of bed mobility. (Not Addressed) Start: 09/27/23 Expected End: 10/18/23 Patient will complete functional transfer with least restrictive device with mod assist in order toprepare for ambulation. (Progressing) Start: 09/27/23 Expected End: 10/18/23 Therapy Time Individual Co-treatment Time In 1230 Time Out 1302 Minutes 32 Brielle Metzger, PT * Leonie AToshia Moe, PAINT TECHNICIAN - AIRPLANE FIRST OFFICER - 10/04/2023 11:00 AM EDT Images from the original note were not included. [facility] Wound Care Progress Note Eben Cruz AGE: 78 y.o. GENDER: male : 1945 Subjective: HISTORY of PRESENT ILLNESS HPI Eben Cruz is a 78 y.o. male who presents for a wound care follow up. HPI: Eben Cruz is a 78 y.o. 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 He is known to [facility] outpatient. Had Cin 2013 with non-obstructive CAD (per pt). NST 06/21/22 showed preserved EF, no ischemia. On 09/18/23, had total left hip replacement surgery at [facility]. Had complicated course requiringwound vac. Discharged to [facility] (SNF). Wound Care consulted for left hip wound. Patient states he had a hip replacement surgery on 09/18/23 at [facility]. Patient resting in bed. PAST MEDICAL HISTORY Past Medical History: Diagnosis Date Adverse effect of anesthesia Arthritis Coronary artery disease Delayed emergence from general anesthesia Hypertension Stroke (HCC) PAST SURGICAL HISTORY Past Surgical History: Procedure Laterality Date CARDIAC CATHETERIZATION N/A 09/26/2023 Performed by Amos Nichole MD at [facility] Cardiac Cath/EP Lab CARDIAC CATHETERIZATION N/A 09/26/2023 Performed by Amos Nichole MD at [facility] Cardiac Cath/EP Lab HERNIA REPAIR INVASIVE VASCULAR PROCEDURE N/A 09/26/2023 Performed by Amos Nichole MD at [facility] Cardiac Cath/EP Lab JOINT REPLACEMENT both hip replacements, L shoulder FAMILY HISTORY No family history on file. SOCIAL HISTORY Social History Tobacco Use Smoking status: Never Smokeless tobacco: Never Vaping Use Vaping Use: Never used Substance Use Topics Alcohol use: Never Drug use: Never ALLERGIES Allergies Allergen Reactions Entresto [Sacubitril-Valsartan] Nausea And Vomiting Wool Alcohol [Lanolin] MEDICATIONS No current facility-administered medications on file prior to encounter. Current Outpatient Medications on File Prior to Encounter Medication Sig Dispense Refill amLODIPine (Norvasc) 2.5 MG tablet Take 2.5 mg by mouth daily. Ascorbic Acid (vitamin C) 100 MG tablet Take 100 mg by mouth daily. Unknown dosage aspirin 81 MG EC tablet Take 81 mg by mouth daily. atorvastatin (Lipitor) 40 MG tablet Take 40 mg by mouth daily. Calcium Carbonate-Vitamin D 500-5 MG-MCG tablet Take by mouth. metoprolol succinate XL (Toprol-XL) 50 MG 24 hr tablet Take 25 mg by mouth in the morning and 25 mgin the evening. Do not crush or chew.. zinc gluconate 50 MG tablet Take 50 mg by mouth daily. REVIEW OF SYSTEMS Pertinent items are noted in HPI. Objective: BP 91/63 Pulse 85 Temp 36.5 C (97.7 F) (Temporal) Resp 20 Ht 1.778 m (5' 10) Wt 95.1 kg (209 lb 10.5 oz) SpO2 96% BMI 30.08 kg/m PHYSICAL EXAM General appearance: in no apparent distress, alert, and oriented times 3 Skin: warm and dry Pulmonary: Normal effort, no respiratory distress, no cyanosis. Nasal cannula Extremities: no cyanosis, clubbing or edema- KIRIT hose in place Left hip: Incision well approximated. Sutures in place. No drainage noted. Periwound with scatteredscabbing noted. Stable LABS CBC: Lab Results Component Value Date WBC 11.2 (H) 10/04/2023 HGB 10.3 (L) 10/04/2023 HCT 33.8 (L) 10/04/2023 MCV 97.7 10/04/2023 PLT 459 (H) 10/04/2023 BMP: Lab Results Component Value Date NA 138 10/04/2023 K 4.1 10/04/2023 CL 105 10/04/2023 CO2 28 10/04/2023 PHOS 4.1 10/04/2023 BUN 26 (H) 10/04/2023 CREATININE 1.09 10/04/2023 PT/INR: No results found for: PROTIME, INR Prealbumin: No results found for: PREALBUMIN Albumin:No components found for: LABALBU Sed Rate: No results found for: SEDRATE Micro: No components found for: BC Assessment/Plan: Left hip: surgical -leave YACHT BUILDER -follow up with surgeon when discharged Nutritional support Wound Care to follow Any questions or concerns please secure chat [facility] wound/ostomy. Thank you for the consult! I personally obtained the morrow and critical portions of the history and physical exam. I reviewed the labs, imaging studies, and electronic medical record. I reviewed the chart documentation and discussed the patient with treatment team members. I have edited the note to reflect my clinical findingsand my assessment and plan. Please note, the time of this note does not reflect the time I saw thispatient today, but the time of this documentaton. Portions of this note including HPI, ROS, impression/plan, and examination may have been copied forward from admission to today as to provide important historical information essential in contributing to medical decision making. Documentation has been reviewed and edited as necessary to support clinical decision making for today's visit and to reflect my own independent evaluation of this patient. Decision making for today's visit and to reflectmy own independent evaluation of this patient. * MELISSA Jones CNP - 10/04/2023 8:08 AM EDT [facility] [place] [facility] Interventional Cardiology Progress Note CC: CAD HPI / Interval History: Mr. 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 On 09/18/23, he had total left hip replacement surgery at [facility]. He had a NSTEMI and was transferred to [place], then to [facility] for a PCI. On 09/26/23, he had a PCI with IVL and NORIS placed to ostial RCA, LMCA, ostial and proximal LAD. His ostial LCX SECTIONIZER is heavily calcified- for medical management. Echocardiogram on 09/30/23, with EF of 15-20%. Pleural effusions. EKG was afib, now s/p successful DCC on amiodarone. Tele SR with PVCs. Torsemide and spironolactone restarted, his BPs are in the 90s. He is s/p right thoracentesis for 1 liter of clear gold fluid on 10/02. This morning, he states he is feeling much better. His breathing is improved. He denies chest pain,dyspnea at rest, orthopnea, PND, swelling, palpitations, dizziness, syncope, bleeding. He does havesome dyspnea on exertion. On room air with O2 sat 96-97% Assessment/Plan HF NYHA Class [] I [x] II [x] III [] IV NSTEMI/CAD s/p IVL with NORIS to LMCA, ostial RCA, ostial and prox LAD on 09/26/23 - Stable. Denies chest pain. Continue aspirin and plavix without interruption. Apixaban was resumed. Will stop aspirin at discharge and continue plavix and apixaban. Continue atorvastatin, toprol xl,PPI. Cardiac rehab as outpatient once he has rehab for his left hip. 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 Paredes on October 16 at 2:15pm. HFrEF 25%, acute on chronic HF Stage C, Class II- III - Dyspnea improved after thoracentesis. Appears well compensated and euvolemic. Symptoms improved. Continue Toprol xl. Weight not done today, I/O -3.5 liters since admission. Continue daily weights, strict I/O, sodium restriction. GDMT and diuretic per HF. Life Vest at discharge, discussed with patient and he is agreeable. Afib/ Aflutter/ MAT/PVCs/SVT, s/p DCC on 10/02/23 - In SR. Continue amiodarone 400 mg bid until discharge, then decrease to 400 mg for 1 month, then 200 mg daily. Continue apixaban for CHADS2-VASC of 6. Replace electrolytes to keep K+ > 4, Mg > 2. Pleural effusion - Improved, s/p right thoracentesis for 1 liter of fluid. UTI - Antibiotics completed. Hx CVA - With right ECA stenosis. Continue DAPT and atorvastatin. Recent left hip fracture, s/p left hip arthroplasty on 09/18/23 in [place] - Ortho consulted. Weight bearing as tolerated. X-ray stable. PT/OT. Will need SNF at discharge. [place] up with surgeon in [place]. HLD - Continue atorvastatin. LDL 39. HTN - Controlled. Had been running low. Continue Toprol xl. Add GDMT as BP tolerates. Debility - PT/OT. Will need SNF at discharge. Discharge likely tomorrow. Goals of care - Palliative care consulted and following. Discussed with Dr. Nichole. Follow up arranged with Dr. Paredes, his primary box sealing inspector, on October 16 at 2:15. Will need SNF at discharge. Medications: amiodarone, 400 mg, Oral, BID apixaban, 5 mg, Oral, BID vitamin C, 500 mg, Oral, Daily aspirin, 81 mg, Oral, Daily atorvastatin, 40 mg, Oral, Daily Calcium Carb-Cholecalciferol, 1 tablet, Oral, Daily clopidogrel, 75 mg, Oral, Daily metoprolol succinate XL, 75 mg, Oral, Nightly pantoprazole, 40 mg, Oral, qAM AC polyethylene glycol (PEG) 3350, 17 g, Oral, Daily spironolactone, 12.5 mg, Oral, Daily torsemide, 10 mg, Oral, Daily Infusion Medications: Physical Examination: Vitals: 10/03/23200410/03/23 2330 10/04/23 0350 10/04/23 0745 BP: 97/56 90/56 (!) 95/46 BP Location: Patient Position: Pulse: 89 86 80 Resp: (!) 28 (!) 26 23 Temp: 36.3 C (97.4 F) 36.4 C (97.6 F) 36.4 C (97.5 F) 36.5 C (97.7 F) TempSrc: Temporal Temporal Temporal Temporal SpO2: 98% 98% 94% Weight: Height: Intake/Output Summary (Last 24 hours) at 10/04/2023 0808 Last data filed at 10/04/2023 0610 Gross per 24 hour Intake 650 ml Output 200 ml Net 450 ml Wt Readings from Last 3 Encounters: 10/03/23 209 lb 10.5 oz (95.1 kg) Physical Exam Vitals reviewed. Constitutional: General: He is not in acute distress. Appearance: Normal appearance. He is ill-appearing. He is not diaphoretic. HENT: Head: Normocephalic. Mouth/Throat: Pharynx: No oropharyngeal exudate. Eyes: General: Right eye: No discharge. Left eye: No discharge. Extraocular Movements: Extraocular movements intact. Pupils: Pupils are equal, round, and reactive to light. Neck: Vascular: No JVD. Cardiovascular: Rate and Rhythm: Normal rate and regular rhythm. Frequent Extrasystoles are present. Pulses: Normal pulses. Heart sounds: S1 normal and S2 normal. Murmur heard. No gallop. Comments: Right femoral site without bleeding or hematoma. Pulmonary: Effort: Pulmonary effort is normal. No respiratory distress. Breath sounds: Examination of the right-lower field reveals decreased breath sounds. Examination ofthe left-lower field reveals decreased breath sounds. Decreased breath sounds present. Abdominal: General: Bowel sounds are normal. There is no distension. Palpations: Abdomen is soft. Tenderness: There is no abdominal tenderness. Genitourinary: Comments: Voids aydin urine. Musculoskeletal: General: Normal range of motion. Cervical back: Normal range of motion and neck supple. Right lower leg: No edema. Left lower leg: No edema. Comments: Left hip incision is well approximated. Excoriation to surrounding skin. Skin: General: Skin is warm and dry. Capillary Refill: Capillary refill takes less than 2 seconds. Coloration: Skin is pale. Neurological: General: No focal deficit present. Mental Status: He is alert and oriented to person, place, and time. Cranial Nerves: No cranial nerve deficit. Psychiatric: Mood and Affect: Mood normal. Laboratory Tests: Recent Labs 10/02/23 0050 10/03/23 0136 10/04/23136 NA 136 137 138 K 3.9 4.1 4.1 CL 105 105 105 CO2 23 26 28 BUN 29* 27* 26* CREATININE 1.12 1.19 1.09 Recent Labs 10/02/23 0050 10/03/23 0136 10/04/23136 WBC 11.5* 13.8* 11.2* HGB 9.6* 10.5* 10.3* HCT 31.9* 34.0* 33.8* MCV 97.3 98.8 97.7 PLT 426 478* 459* No results for input(s): CKTOTAL, CKMB, CKMBINDEX, TROPONINI in the last 72 hours. No results for input(s): BNP in the last 72 hours. No results for input(s): TRIG, HDL, LDLCALC, CHOL in the last 72 hours. No results found for: LDLCHOLESTER Lab Results Component Value Date TSH 2.409 09/29/2023 EF BP Date Value Ref Range Status 09/30/2023 38 (A) 55 - 100 % Final 09/25/23 TRANSTHORACIC ECHOCARDIOGRAM (TTE) COMPLETE (CONTRAST/BUBBLE/3D PRN) 09/30/2023 6:33 PM (Final) Interpretation Summary Left Ventricle: Left ventricle is moderately dilated. Normal wall thickness. Severely reduced left ventricular systolic function. The EF by visual approximation is 15-20%. Severe global hypokinesis present. Right Ventricle: Right ventricle is mildly dilated. Mildly reduced systolic function. Aortic Valve: Mild to moderate stenosis of the aortic valve. AV mean gradient is 6 mmHg. AV peak gradient is 11 mmHg. LVOT:AV VTI Index is 0.35. AV area by continuity VTI is 1.1 cm2. Mitral Valve: Moderate (2+) regurgitation. Left Atrium: Left atrium is moderately dilated. Signed by: Frederick Mcclelland MD on 09/30/2023 6:33 PM [facility] 10/02/23: Cardioversion basis: elective Pre-procedure rhythm: atrial fibrillation Electrodes: pads Electrodes placed: anterior-posterior Number of attempts: 1 Attempt 1 mode: synchronous Attempt 1 waveform: monophasic Attempt 1 shock (in Joules): 300 Attempt 1 outcome: conversion to normal sinus rhythm Post-procedure rhythm: normal sinus rhythm Complications: no complications Patient tolerance: patient tolerated the procedure well with no immediate complications Other reports reviewed: PCI/ IVL 09/26/23: Conclusions Mildly elevated LVEDP 18 mmHG Severe calcified left main( ostial 50%, distal 80%) stenosis Severe calcified proximal LAD( 80%) stenosis Small D1 with proximal 70% lesion Ostial LCX SECTIONIZER heavily calcified with no collaterals Severely calcified ostial RCA(90%) lesion, mid(30%) and distal RCA(50%) Successful IVUS guided Intravascular Lithotripsy and NORIS of ostial RCA. Successful IVUS guided Intravascular Lithotripsy and NORIS of LMCA. Successful IVUS guided Intravascular Lithotripsy and NORIS of ostial and proximal LAD. Plan DAPT for at least 1 year and ocean transportation intermediary if tolerates. Single antiplatelet lifelong High intensity statin Aggressive risk factor modification Optimal GDMT for ischemic cardiomyopathy Remove right femoral arterial sheath once ACT is less than 160 seconds. Patient to lay supine for 6hrs post sheath removal. Thoracentesis 10/03/2023: IMPRESSION: Successful ultrasound-guided right thoracentesis with drainage of 1050 milliliters of clear gold fluid. Cardiac Tests: ECG: IMPRESSION: Sinus rhythm Nonspecific repol abnormality, lateral leads Telemetry findings reviewed: SR 80-90s with frequent PVCs EF BP Date Value Ref Range Status 09/30/2023 38 (A) 55 - 100 % Final Elisa Goldstein, PAINT TECHNICIAN - AIRPLANE FIRST OFFICER Date Of Service 10/04/2023 Associated attestation - Amos Nichole MD - 10/05/2023 2:47 PM EDT Doing well s/p thoracentesis. Reduce amio to 400 every day. HF to see. I, Dr. Amos Nichole, saw and evaluated the patient on 10/04/23 I personally obtained the morrow and critical portions of the history and physical exam. I reviewed the labs, imaging studies, and electronic medical record. I reviewed the MARITZA's documentation, and discussed the patient with the MARITZA. I agree with the MARITZA's medical decision making and have edited the note to reflect my clinical findings and my assessment and plan. I performed a substantive portion of the care of this patient. * Amos Nichole MD - 10/04/2023 7:10 AM EDT [facility] Cardiology /Electrophysiology Progress Note HPI / Interval History: Mr. Cruz is a 78 YO M known to Dr. Paredes ([facility]) who has a Pmhx of HTN, HLD, recent hip replacement (09/18/23) and R parietal CVA with high grade R external carotid stenosis in 04/2023 who presented from [place] for high risk PCI. Dr. Nichole performed PCI on 09/26/23 with NORIS x 3 to LM, LAD, and RCA. After his PCI, he was in decompensated HF and went into afib/aflutter s/p DCCV. HF following for HFrEF. This morning is resting comfortably in bed, reports that his breathing is much improved from yesterday. Took him off supplemental O2 while in the room. Creatinine remains stable; CXR with resolved R pleural effusion, no pneumothorax, no pulmonary edema, persistent small to moderate L pleural effusio n. JVD is 5 - 8 cm this morning with respiratory variation. Overnight Metoprolol succinate held 2/2 to hypotension Up to chair. Breathing much better. Denies CP. CXR improved. Assessment/Plan HFrEF: ICM: NYHA Class III - ICM s/p PCI of LM, LAD and RCA on 09/26/[address] Nichole - TTE on 09/30/23 with biventricular dysfunction, EF ~ 15%, 2+ MR, mild aortic stenosis, DVI of 0.35, mean gradient of 11 - This morning looks good, WOB much improved, no LE edema, JVD 5 - 8 with respiratory variation - Will hold on addition of ARB due to hypotension- He was previously intolerant to Entresto (N/V) - Will start Farxiga today to assist with volume management - Will stop Torsemide today; may need PRN diuresis at home - Continue low dose spironolactone 12.5 mg daily - Will need to discuss LifeVest given ICM with EF of < 35%. - Plan for him to go to facility on 10/05/23. Follow up appointment with Dr. Paredes has been made. - From HF standpoint is okay for discharge on 10/05/23; will need to out afterload as an outpatient if tolerated. - Would consider low dose Ramipril 1.25 mg TID if SBP's consistently > 100. Dicussed w HF service. Stop torsemide for low BP. Continue Aldactone. Plan on discharge to [facility] tomorrow. Follow up w [facility]ker in [place] has been arranged. Atrial Fibrillation/ Flutter with 2:1 Block - CHADsVASC of 4 - On Eliquis 5 mg BID, Metoprolol succinate 75 mg nightly and Amio 400 mg BID; is nearly loaded with amio - Remains in NSR this morning In SR. Occasional PVCs. Discharge on Amio 400 every day then decrease to 200 every day in 1 months.Back on Apixaban. Bilateral Pleural Effusion: - 2 view CXR demonstrated moderate to large bilateral pleural effusions - Thoracentesis with 1L removed from the R - CXR much improved no pneumothorax. MV CAD s/p PCI w/ NORIS to LM, LAD and RCA on 09/26/23 - ASA, Plavix, Eliquis; stop ASA at discharge - Dr. Nichole following Medications: amiodarone, 400 mg, Oral, BID apixaban, 5 mg, Oral, BID vitamin C, 500 mg, Oral, Daily aspirin, 81 mg, Oral, Daily atorvastatin, 40 mg, Oral, Daily Calcium Carb-Cholecalciferol, 1 tablet, Oral, Daily clopidogrel, 75 mg, Oral, Daily metoprolol succinate XL, 75 mg, Oral, Nightly pantoprazole, 40 mg, Oral, qAM AC polyethylene glycol (PEG) 3350, 17 g, Oral, Daily spironolactone, 12.5 mg, Oral, Daily torsemide, 10 mg, Oral, Daily Infusion Medications: Physical Examination: Vitals: 10/03/23 1858 10/03/23200410/03/23 2330 10/04/23 0350 BP: 97/56 90/56 (!) 95/46 BP Location: Patient Position: Pulse: 89 86 80 Resp: 25 (!) 28 (!) 26 23 Temp: 36.3 C (97.4 F) 36.4 C (97.6 F) 36.4 C (97.5 F) TempSrc: Temporal Temporal Temporal SpO2: 100% 98% 98% 94% Weight: Height: Intake/Output Summary (Last 24 hours) at 10/04/2023 0710 Last data filed at 10/04/2023 0610 Gross per 24 hour Intake 650 ml Output 200 ml Net 450 ml Wt Readings from Last 3 Encounters: 10/03/23 209 lb 10.5 oz (95.1 kg) Physical Exam Vitals reviewed. Constitutional: Appearance: He is not ill-appearing. HENT: Right Ear: External ear normal. Left Ear: External ear normal. Eyes: General: No scleral icterus. Neck: Comments: JVD 5-8 cm Cardiovascular: Rate and Rhythm: Normal rate and regular rhythm. Pulses: Normal pulses. Heart sounds: Murmur heard. Pulmonary: Effort: No respiratory distress. Breath sounds: No rhonchi or rales. Comments: Diminished basilar breath sounds Abdominal: General: There is no distension. Palpations: Abdomen is soft. Tenderness: There is no abdominal tenderness. Musculoskeletal: General: No deformity. Right lower leg: No edema. Left lower leg: No edema. Comments: Trace pitting LE edema Skin: Capillary Refill: Capillary refill takes less than 2 seconds. Neurological: General: No focal deficit present. Laboratory Tests: Recent Labs 10/02/23 0050 10/03/23 0136 10/04/23136 NA 136 137 138 K 3.9 4.1 4.1 CL 105 105 105 CO2 23 26 28 BUN 29* 27* 26* CREATININE 1.12 1.19 1.09 Recent Labs 10/02/23 0050 10/03/23 0136 10/04/23136 WBC 11.5* 13.8* 11.2* HGB 9.6* 10.5* 10.3* HCT 31.9* 34.0* 33.8* MCV 97.3 98.8 97.7 PLT 426 478* 459* No results for input(s): CKTOTAL, CKMB, CKMBINDEX, TROPONINI in the last 72 hours. No results for input(s): BNP in the last 72 hours. No results for input(s): TRIG, HDL, LDLCALC, CHOL in the last 72 hours. No results found for: LDLCHOLESTER Lab Results Component Value Date TSH 2.409 09/29/2023 EF BP Date Value Ref Range Status 09/30/2023 38 (A) 55 - 100 % Final 09/25/23 TRANSTHORACIC ECHOCARDIOGRAM (TTE) COMPLETE (CONTRAST/BUBBLE/3D PRN) 09/30/2023 6:33 PM (Final) Interpretation Summary Left Ventricle: Left ventricle is moderately dilated. Normal wall thickness. Severely reduced left ventricular systolic function. The EF by visual approximation is 15-20%. Severe global hypokinesis present. Right Ventricle: Right ventricle is mildly dilated. Mildly reduced systolic function. Aortic Valve: Mild to moderate stenosis of the aortic valve. AV mean gradient is 6 mmHg. AV peak gradient is 11 mmHg. LVOT:AV VTI Index is 0.35. AV area by continuity VTI is 1.1 cm2. Mitral Valve: Moderate (2+) regurgitation. Left Atrium: Left atrium is moderately dilated. Signed by: Frederick Mcclelland MD on 09/30/2023 6:33 PM Cardiac Tests: ECG: NSR, PVC Telemetry findings reviewed: NSR with PVCs EF BP Date Value Ref Range Status 09/30/2023 38 (A) 55 - 100 % Final Christopher SwansonDO sol Date Of Service 10/04/2023 I, Dr. Borrero, saw and evaluated the patient. I personally obtained the morrow and critical portions of the history and physical exam. I reviewed the chart, the fellow's documentation, and discussed the patient with the fellow. I agree with the fellow's medical decision making and have edited the note to reflect my clinical findings and my assessment and plan. Patient looks euvolemic on exam. -start Farxiga 10mg daily -continue spironolactone 12.5 mg daily -continue Toprol 50mg daily -if BP > 100s can start ramipril 1.25 mg daily -Can start torsemide 10mg daily at discharge -will sign off I, Dr. Amos Nichole, saw and evaluated the patient on 10/04/2023. I personally obtained the morrow and critical portions of the history and physical exam. I reviewed the labs, imaging studies, and electronic medical record. I reviewed the MARITZA's documentation, and discussed the patient with the MARITZA. Coreygree with the MARITZA's medical decision making and have edited the note to reflect my clinical findings and my assessment and plan. I performed a substantive portion of the care of this patient. * Isabel Mcdonald - 10/04/2023 7:02 AM EDT .Nutrition update completed. Chart reviewed. Patient to be monitored and followed by the diet clean room technician. Floor RD available upon request. Pt consuming 75% to 99% of meals.DEVORA Lares * VINCENT Estevez/Barry - 10/03/2023 3:38 PM EDT Images from the original note were not included. OCCUPATIONAL THERAPY [facility] Treatment Note Name/MRN: Eben Cruz ([id number]) Date of : 1945 Age: 78 y.o. Room/Bed: 1C-130/1C-130 A Discharge Recommendation: Nursing Home Facility Equipment Needed: (defer to next level of care) Prior Level of Function ADL Assistance: Independent Ambulation Assistance: Independent Transfer Assistance: Independent Assessment Pt SOB throughout on 2L O2, sats remain >93%. Mod assist bed mobility and STS. Min assist functional mobility short distance and chair transfer with FWW. Recommend intermediate facility at discharge. Subjective Pt in supine in bed, agreeable to OT. Pt in recliner EOS with friends present. Pain: Pt denies any current pain. Medical Precautions: No active isolations Proper PPE donned/doffed in accordance with facility standards. Fall Risk: Davila Fall Risk Score: 60 (High Risk) Precautions/Restrictions: Left LE Weight Bearing: Weight Bearing As Tolerated Hip Precautions: Anterior Hip Precautions Lines/Drains/Airways: PIV, O2 via nc Family/Caregiver Present: 2 friends present EOS Objective ADLs LE Dressing: Dependent Bed Mobility Supine to sit: Mod Assist Scooting: Mod Assist Transfers/Mobility Sit to stand: Mod Assist Stand to sit: Min Assist Bed to chair: Min Assist Standing balance: Min Assist Device(s) used: front wheeled walker Plan Continue acute OT per plan of care. Safety/Education Safety Safety Devices in place: All fall risk precautions in place, call light within reach, left in chair, and nurse notified Restraints: No Education Education Given To: patient Education Provided: OT Role, Plan of Care, Precautions, Transfer Training, and Fall Prevention Education Education Method: Verbal Barriers to Learning: None Education Outcome: Verbalized Understanding AM-PAC AM-PAC Inpatient Daily Activity Raw Score: 15 ADL Inpatient CMS G-Code Modifier: CK Goals Patient Stated Goal: to get stronger Encounter Problems Encounter Problems (Active) Balance Patient will maintain dynamic standing balance for 3-5 minutes with SBA in order to demonstrate decreased risk of falling. Start: 10/01/23 Expected End: 10/29/23 Bathing Patient will utilize adaptive techniques to bathe body min A. Start: 10/01/23 Expected End: 10/29/23 Dressing Upper Extremities Patient will complete upper body dressing SBA. Start: 10/01/23 Expected End: 10/29/23 Dressings Lower Extremities Patient will dress lower body min A. Start: 10/01/23 Expected End: 10/29/23 Toileting Patient will complete toileting tasks at standard toilet with min assist. Start: 10/01/23 Expected End: 10/29/23 Therapy Time Individual Co-treatment Time In 1407 Time Out 1423 Minutes 16 Yamile Moraes OTR/Barry * Carolyn Bagley, RESIDENTIAL PROGRAM COORDINATOR - 10/03/2023 9:34 AM EDT Images from the original note were not included. [facility] Wound Care Progress Note Eben Cruz AGE: 78 y.o. GENDER: male : 1945 Subjective: HISTORY of PRESENT ILLNESS HPI Eben Cruz is a 78 y.o. male who presents for a wound care follow up. HPI: Eben Cruz is a 78 y.o. 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 He is known to [facility] outpatient. Had Cin 2013 with non-obstructive CAD (per pt). NST 06/21/22 showed preserved EF, no ischemia. On 09/18/23, had total left hip replacement surgery at [facility]. Had complicated course requiringwound vac. Discharged to [facility] (SNF). Wound Care consulted for left hip wound. Patient states he had a hip replacement surgery on 09/18/23 at [facility]. Patient sitting up in chair eating breakfast. PAST MEDICAL HISTORY Past Medical History: Diagnosis Date Adverse effect of anesthesia Arthritis Coronary artery disease Delayed emergence from general anesthesia Hypertension Stroke (HCC) PAST SURGICAL HISTORY Past Surgical History: Procedure Laterality Date CARDIAC CATHETERIZATION N/A 09/26/2023 Performed by Amos Nichole MD at [facility] Cardiac Cath/EP Lab CARDIAC CATHETERIZATION N/A 09/26/2023 Performed by Amos Nichole MD at [facility] Cardiac Cath/EP Lab HERNIA REPAIR INVASIVE VASCULAR PROCEDURE N/A 09/26/2023 Performed by Amos Nichole MD at [facility] Cardiac Cath/EP Lab JOINT REPLACEMENT both hip replacements, L shoulder FAMILY HISTORY No family history on file. SOCIAL HISTORY Social History Tobacco Use Smoking status: Never Smokeless tobacco: Never Vaping Use Vaping Use: Never used Substance Use Topics Alcohol use: Never Drug use: Never ALLERGIES Allergies Allergen Reactions Entresto [Sacubitril-Valsartan] Nausea And Vomiting Wool Alcohol [Lanolin] MEDICATIONS No current facility-administered medications on file prior to encounter. Current Outpatient Medications on File Prior to Encounter Medication Sig Dispense Refill amLODIPine (Norvasc) 2.5 MG tablet Take 2.5 mg by mouth daily. Ascorbic Acid (vitamin C) 100 MG tablet Take 100 mg by mouth daily. Unknown dosage aspirin 81 MG EC tablet Take 81 mg by mouth daily. atorvastatin (Lipitor) 40 MG tablet Take 40 mg by mouth daily. Calcium Carbonate-Vitamin D 500-5 MG-MCG tablet Take by mouth. metoprolol succinate XL (Toprol-XL) 50 MG 24 hr tablet Take 25 mg by mouth in the morning and 25 mgin the evening. Do not crush or chew.. zinc gluconate 50 MG tablet Take 50 mg by mouth daily. REVIEW OF SYSTEMS Pertinent items are noted in HPI. Objective: BP 122/55 Pulse 81 Temp 36.3 C (97.3 F) (Temporal) Resp 22 Ht 1.778 m (5' 10) Wt 95.1 kg(209 lb 10.5 oz) SpO2 100% BMI 30.08 kg/m PHYSICAL EXAM General appearance: in no apparent distress, alert, and oriented times 3 Skin: warm and dry Pulmonary: Normal effort, no respiratory distress, no cyanosis. Nasal cannula Extremities: no cyanosis, clubbing or edema- KIRIT hose in place Left hip: Incision well approximated. Sutures in place. No drainage noted. Periwound with scatteredscabbing noted. 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 Thank you for the consult! I personally obtained the morrow and critical portions of the history and physical exam. I reviewed the labs, imaging studies, and electronic medical record. I reviewed the chart documentation and discussed the patient with treatment team members. I have edited the note to reflect my clinical findingsand my assessment and plan. Please note, the time of this note does not reflect the time I saw thispatient today, but the time of this documentaton. Portions of this note including HPI, ROS, impression/plan, and examination may have been copied forward from admission to today as to provide important historical information essential in contributing to medical decision making. Documentation has been reviewed and edited as necessary to support clinical decision making for today's visit and to reflect my own independent evaluation of this patient. Decision making for today's visit and to reflectmy own independent evaluation of this patient. * Marcelo Gray PT - 10/03/2023 9:07 AM EDT Images from the original note were not included. PHYSICAL THERAPY [facility] Treatment Note Name/MRN: Eben Cruz ([id number]) Date of : 1945 Age: 78 y.o. Room/Bed: 1C-130/1C-130 A Discharge Recommendation: Nursing Home Facility Equipment Needed: No Other: He has a walker and a cane at home to use. Assessment Pt improving with cognition, Hs reports he is short of breath but improving. Pt on 2L via SD. Pt performs bed mobility with Mod A, sit<>stand c mod A and ambulates c RW c min A. Subjective Name and of pt verified. Pt agreeable to PT Eval and treatment Pain: Pt denies any current pain. Medical Precautions: No active isolations Proper PPE donned/doffed in accordance with facility standards. Fall Risk: Davila Fall Risk Score: 60 (High Risk) Precautions/Restrictions: Left LE Weight Bearing: Weight Bearing As Tolerated Hip Precautions: Anterior Hip Precautions Lines/Drains/Airways: PIV Overall Cognitive Status: WFL Overall Orientation Status: Oriented to Place, Oriented to Situation, and Oriented to Person Family/Caregiver Present: none Objective Ambulation Pt ambs 45ft c RW c min A for steady assist. Pt ambs with downward gaze and MARISA police lieutenant patrol to RW. Tactile cues to bring MARISA within RW and verbal cues for upright posture Transfers/Mobility Sit to stand: Mod Assist Mod A to ascend, verbal cues for hand placement Device(s) used: front wheeled walker Exercises Exercises Hip Flexion: in sitting 2 x 10 Knee Long Arc Quad: 2 x 10 Bed Mobility Supine to sit: Mod Assist Mod A to exit BLE and ascend trunk Plan Continue acute PT per plan of care. Safety/Education Safety Safety Devices in place: call light within reach and left in chair Restraints: N/A Education Pt on educated benfits of remaining upright and use of incentive spirometer Outcome Measures AM-PAC AM-PAC Inpatient Mobility Raw Score (No Stairs) : 12 [facility] Score: Walked 25 ft or more (i.e. walked outside of room) Goals Patient Stated Goal: breath Encounter Problems Encounter Problems (Active) Mobility Patient will ambulate 50 feet with mod assist and least restrictive device in order to improve safety and independence with mobility. (Progressing) Start: 09/27/23 Expected End: 10/18/23 Patient will ascend and descend 2 stairs with one railing and min assist in order to safely negotiate home. (Not Addressed) Start: 09/27/23 Expected End: 10/18/23 Transfers Patient will perform bed mobility with min assist in order to improve independence and prepare for out of bed mobility. (Progressing) Start: 09/27/23 Expected End: 10/18/23 Patient will complete functional transfer with least restrictive device with mod assist in order toprepare for ambulation. (Progressing) Start: 09/27/23 Expected End: 10/18/23 Therapy Time Individual Co-treatment Time In 0750 Time Out 0815 Minutes 25 Marcelo Gray PT * Yajaira Thakkar APRN - GELY - 10/03/2023 8:20 AM EDT Images from the original note were not included. Palliative Care Progress Note Chief Complaint: Eben Cruz is a 78 y.o. male with chief complaint of shortness of breath. Palliative Care will follow peripherally, please contact on-call provider for urgent needs Assessment/Plan Shortness of breath/B pleural effusions - multifactorial, hx HFrEF, NSTEMI - O2 2L - per primary: prn duonebs - plans for thoracentesis today, R removed for >1L - breathing improved post thoracentesis HFrEF/CAD/HTN/afib/NSTEMI - ECHO from 09/30/23 report reviewed - post NORIS to LMCA, ostial RCA, ostial and proximal LAD 09/26/23 - cardiology primary: amiodarone, apixaban (held today), asa, atorvastatin, clopidogrel, metoprololsuccinate, ticagrelor (dc 10/01/23), torsemide--currently held - had DCCV 10/02/23-remains in NSR, also helpful for his breathing UTI - per primary: ceftriaxone--completed Debility - PT/OT recommending SNF--awaiting acceptance - 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, 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 L hip fracture - post arthroplasty 09/18/23 - [facility] - ortho removed sutures 10/02/23 Risk for constipation - no longer feels constipated, BM 10/03/23 - changed prn polyethylene glycol to schedule Insomnia, depression, poor appetite - major life change - 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 Discharge planning: Not ready for discharge due to medical instability and pending insurance approval to SNF Patient meets criteria for general inpatient hospice care including the following: N/A - PalliativeCare Patient Referrals to: None Discussed patient and the plan of care with the other interdisciplinary team (IDT) members of Palliative Care Team, and with Primary Provider, Patient, and Floor Nurse Insert attestation statement here if applicable (.disupervision) or (.npattest) Subjective: Subjective/Events Since last seen: remains on telemetry, underwent DCCV yesterday, completed thoracentesis today, awake in bed, fatigued, without pain, CP, abdominal pain, breathing easier today, no nausea, vomiting currently NPO but appetite remains fair to poor, BM 10/02/23 Eben Cruz is a 78 y.o. male living independently at home, still driving, working [employer]. PMHx includes: HTN, HLD, partial R CVA. At [facility] for L total hip replacement but complicated by requirement of wound vac, was at SNF. transferred to [place] for cardiology NSTEMI, transferred to [facility] for PCI. Family called with stating he needs to be DNR but he is oriented, palliative care consulted for goals of care Goals of care:Continue Current Management Functional Assessment: PPS: 50% Advance Directives: Full Code Surrogate: Child Prognosis: unknown Spiritual assessment: No spiritual distress identified Bereavement and grief: Grief Issues Not Identified Review of Systems ROS: See palliative care ROS/ESAS below; All other systems were reviewed and are negative. [place] Symptom Assessment Score [place] Score Pain Score 0 Tiredness Score 0 Nausea Score 0 Depression Score 0 Anxiety Score 0 Drowsiness Score 0 Anorexia Score (0= eating well, 10= not eating) 7 Wellbeing Score (10= worst sense of well-being) 0 Constipation 0 Dyspnea Score (0= no shortness of breath) 0 FLACC Scale (For Pain Assessment of the Non-Verbal Patient) Patient is verbal Assessed by: patient and provider. 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 HENT: Head: Normocephalic and atraumatic. Nose: Nose normal. Mouth/Throat: Mouth: Mucous membranes are moist. Eyes: General: Right eye: No discharge. Left eye: No discharge. Pupils: Pupils are equal, round, and reactive to light. Cardiovascular: Rate and Rhythm: Normal rate and regular rhythm. Pulses: Normal pulses. Heart sounds: Normal heart sounds. No murmur heard. Comments: No edema B post tib/dorsalis pedis palpable Pulmonary: Effort: Pulmonary effort is normal. Breath sounds: Decreased breath sounds present. Abdominal: General: Bowel sounds are normal. There is no distension. Palpations: Abdomen is soft. There is no mass. Genitourinary: Comments: Continent Musculoskeletal: Cervical back: Normal range of motion and neck supple. Right lower leg: No edema. Left lower leg: No edema. Skin: General: Skin is warm and dry. Comments: fragile Neurological: General: No focal deficit present. Mental Status: He is alert and oriented to person, place, and time. Psychiatric: Mood and Affect: Mood normal. Behavior: Behavior normal. Behavior is cooperative. Comments: No agitation Current Medications: Inpatient medications reviewed: yes Home medications reviewed: yes OARRS Reviewed: copied from initial consult: Yes-oxycodone 5mg #28(7D) filled 05/2023, all other prior to this 24 Hour PRN Meds: duonebs times 1, one time hydroxyzine Results/Verification of Data Review Objective data reviewed (be specific which labs, imaging reports with dates reviewed): MAR/vitals/labs reviewed 10/03/23 Data in Support of Terminal Illness: Is patient hospice appropriate? TBD * Amos Nichole MD - 10/03/2023 7:55 AM EDT [facility] [place] [facility] Cardiology /Electrophysiology Progress Note CC: CAD HPI / Interval History: Mr. 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 On 09/18/23, he had total left hip replacement surgery at [facility]. He had a NSTEMI and was transferred to [facility]. On 09/26/23, he had a PCI with IVL and NORIS placed to ostial RCA, LMCA, ostial and proximal LAD. His ostial LCX SECTIONIZER is heavily calcified- for medical management. Echocardiogram on 09/30/23, with EF of 15-20%. Pleural effusions. EKG afib, now s/p DCC on amiodarone. This morning, he is in SR with frequent PVCs. Plan is for a thoracentesis today. Seen by the Advanced Heart Failure team. His main complaint is dyspnea which comes and goes, worse with exertion. He denies chest pain, palpitations, bleeding, swelling, syncope. Voiding without difficulty. BM today. Back in SR w occasional PVCs. Up to chair. C/o dyspnea but no CP or palps. For bilat thoracentesis today. Apixaban has been held follow DCC yesterday. Assessment/Plan HF NYHA Class [] I [] II [x] III [] IV NSTEMI/CAD s/p IVL with NORIS to LMCA, ostial RCA, ostial and prox LAD on 09/26/23 - Stable. Denies chest pain. Continue aspirin and plavix without interruption. He will continue apixaban after thoracentesis and at discharge, stop aspirin and continue plavix and apixaban. Continue atorvastatin, toprol xl, PPI. Cardiac rehab as outpatient once he has rehab for his left hip. 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 Paredes on October 16 at 2:15pm. Doing well. On ASA and clopidogrel. Restart Apixaban after thoracentesis. Stop ASA on discharge. HFrEF 25%, acute on chronic HF Stage C, Class III - Continues to have dyspnea, worse with activity, comes and goes. For thoracentesis today. ContinueToprol xl. GDMT limited due to low BP. Restart spironolactone today, add ARB once BP stable and tolerates. HF following. I/O - 4liters this admission, weights not accurate. Continue daily weights, strict I/O, sodium restriction. GDMT and diuretic per HF. HF service following. Restart Aldactone. AddARB if BP tolerates. Afib/ Aflutter/ MAT/PVCs/SVT, s/p DCC on 10/02/23 - In SR. Continue amiodarone 400 mg bid until discharge, then decrease to 400 mg for 1 month, then 200 mg daily. Resume apixaban after thoracentesis for CHADS2- VASC of 6. Replace electrolytes to keepK+ > 4, Mg > 2. Agree. Pleural effusion - Thoracentesis today for pleural effusions. Resume apixaban following thoracentesis. UTI - Antibiotics completed. Hx CVA - With right ECA stenosis. Continue DAPT and atorvastatin. Recent left hip fracture, s/p left hip arthroplasty on 09/18/23 in [place] - Ortho consulted. Weight bearing as tolerated. X-ray stable. PT/OT. Will need SNF at discharge. [place]ollow up with surgeon in [place]. HLD - Continue atorvastatin. LDL 39. HTN - Controlled. Had been running low. Continue Toprol xl. Add GDMT as BP tolerates. Debility - PT/OT. Will need SNF at discharge. Goals of care - Palliative care consulted and following. Discussed with Dr. Nichole. Follow up arranged with Dr. Paredes, his primary box sealing inspector, on October 16 at 2:15. Will need SNF at discharge. Medications: amiodarone, 400 mg, Oral, BID [Held by provider] apixaban, 5 mg, Oral, BID vitamin C, 500 mg, Oral, Daily aspirin, 81 mg, Oral, Daily atorvastatin, 40 mg, Oral, Daily clopidogrel, 75 mg, Oral, Daily metoprolol succinate XL, 75 mg, Oral, Nightly pantoprazole, 40 mg, Oral, qAM AC polyethylene glycol (PEG) 3350, 17 g, Oral, Daily [Held by provider] spironolactone, 12.5 mg, Oral, Daily [Held by provider] torsemide, 10 mg, Oral, Daily [Held by provider] valsartan, 40 mg, Oral, Daily Infusion Medications: Physical Examination: Vitals: 10/02/23 2322 10/03/23 0455 10/03/23 0600 10/03/23 0730 BP: 104/59 123/71 BP Location: Left arm Right arm Patient Position: Lying Sitting Pulse: 91 81 87 Resp: 17 (!) 28 22 Temp: 36.3 C (97.3 F) TempSrc: Temporal SpO2: 98% 96% 95% Weight: 209 lb 10.5 oz (95.1 kg) Height: Intake/Output Summary (Last 24 hours) at 10/03/2023 0757 Last data filed at 10/02/2023 2216 Gross per 24 hour Intake 53 ml Output 250 ml Net -197 ml Wt Readings from Last 3 Encounters: 10/03/23 209 lb 10.5 oz (95.1 kg) Physical Exam Vitals reviewed. Constitutional: General: He is not in acute distress. Appearance: Normal appearance. He is ill-appearing. He is not diaphoretic. Interventions: Nasal cannula in place. Comments: Appears dyspneic HENT: Head: Normocephalic. Mouth/Throat: Pharynx: No oropharyngeal exudate. Eyes: General: Right eye: No discharge. Left eye: No discharge. Extraocular Movements: Extraocular movements intact. Pupils: Pupils are equal, round, and reactive to light. Neck: Vascular: No JVD. Cardiovascular: Rate and Rhythm: Normal rate and regular rhythm. Frequent Extrasystoles are present. Pulses: Normal pulses. Heart sounds: S1 normal and S2 normal. Murmur heard. No gallop. Pulmonary: Effort: Pulmonary effort is normal. No respiratory distress. Breath sounds: Examination of the right-lower field reveals decreased breath sounds. Examination ofthe left-lower field reveals decreased breath sounds and rales. Decreased breath sounds and rales present. Abdominal: General: Bowel sounds are normal. There is no distension. Palpations: Abdomen is soft. Tenderness: There is no abdominal tenderness. Musculoskeletal: General: Normal range of motion. Cervical back: Normal range of motion and neck supple. Right lower leg: No edema. Left lower leg: No edema. Comments: Left hip incision is well approximated. Excoriation to surrounding skin. Skin: General: Skin is warm and dry. Capillary Refill: Capillary refill takes less than 2 seconds. Coloration: Skin is pale. Neurological: General: No focal deficit present. Mental Status: He is alert and oriented to person, place, and time. Cranial Nerves: No cranial nerve deficit. Psychiatric: Mood and Affect: Mood normal. Laboratory Tests: Recent Labs 10/01/23 0419 10/02/23 0050 10/03/23 0136 NA 137 136 137 K 4.0 3.9 4.1 CL 104 105 105 CO2 26 23 26 BUN 31* 29* 27* CREATININE 1.05 1.12 1.19 Recent Labs 10/01/23 0419 10/02/23 0050 10/03/23 0136 WBC 12.2* 11.5* 13.8* HGB 10.6* 9.6* 10.5* HCT 33.6* 31.9* 34.0* MCV 96.8 97.3 98.8 PLT 451* 426 478* No results for input(s): CKTOTAL, CKMB, CKMBINDEX, TROPONINI in the last 72 hours. No results for input(s): BNP in the last 72 hours. No results for input(s): TRIG, HDL, LDLCALC, CHOL in the last 72 hours. No results found for: LDLCHOLESTER Lab Results Component Value Date TSH 2.409 09/29/2023 EF BP Date Value Ref Range Status 09/30/2023 38 (A) 55 - 100 % Final 09/25/23 TRANSTHORACIC ECHOCARDIOGRAM (TTE) COMPLETE (CONTRAST/BUBBLE/3D PRN) 09/30/2023 6:33 PM (Final) Interpretation Summary Left Ventricle: Left ventricle is moderately dilated. Normal wall thickness. Severely reduced left ventricular systolic function. The EF by visual approximation is 15-20%. Severe global hypokinesis present. Right Ventricle: Right ventricle is mildly dilated. Mildly reduced systolic function. Aortic Valve: Mild to moderate stenosis of the aortic valve. AV mean gradient is 6 mmHg. AV peak gradient is 11 mmHg. LVOT:AV VTI Index is 0.35. AV area by continuity VTI is 1.1 cm2. Mitral Valve: Moderate (2+) regurgitation. Left Atrium: Left atrium is moderately dilated. Signed by: Frederick Mcclelland MD on 09/30/2023 6:33 PM [facility] 10/02/23: Cardioversion basis: elective Pre-procedure rhythm: atrial fibrillation Electrodes: pads Electrodes placed: anterior-posterior Number of attempts: 1 Attempt 1 mode: synchronous Attempt 1 waveform: monophasic Attempt 1 shock (in Joules): 300 Attempt 1 outcome: conversion to normal sinus rhythm Post-procedure rhythm: normal sinus rhythm Complications: no complications Patient tolerance: patient tolerated the procedure well with no immediate complications Other reports reviewed: PCI/ IVL 09/26/23: Conclusions Mildly elevated LVEDP 18 mmHG Severe calcified left main( ostial 50%, distal 80%) stenosis Severe calcified proximal LAD( 80%) stenosis Small D1 with proximal 70% lesion Ostial LCX SECTIONIZER heavily calcified with no collaterals Severely calcified ostial RCA(90%) lesion, mid(30%) and distal RCA(50%) Successful IVUS guided Intravascular Lithotripsy and NORIS of ostial RCA. Successful IVUS guided Intravascular Lithotripsy and NORIS of LMCA. Successful IVUS guided Intravascular Lithotripsy and NORIS of ostial and proximal LAD. Plan DAPT for at least 1 year and ocean transportation intermediary if tolerates. Single antiplatelet lifelong High intensity statin Aggressive risk factor modification Optimal GDMT for ischemic cardiomyopathy Remove right femoral arterial sheath once ACT is less than 160 seconds. Patient to lay supine for 6hrs post sheath removal. Cardiac Tests: ECG: pending Telemetry findings reviewed: SR 80-90s with frequent PVCs EF BP Date Value Ref Range Status 09/30/2023 38 (A) 55 - 100 % Final Elisa Goldstein, PAINT TECHNICIAN - [facility] Date Of Service 10/03/2023 I, Dr. Amos Nichole, saw and evaluated the patient on 10/03/2023. I personally obtained the morrow and critical portions of the history and physical exam. I reviewed the labs, imaging studies, and electronic medical record. I reviewed the MARITZA's documentation, and discussed the patient with the MARITZA. Iagree with the MARITZA's medical decision making and have edited the note to reflect my clinical findings and my assessment and plan. I performed a substantive portion of the care of this patient. * Charlette Borrero MD - 10/03/2023 6:59 AM EDT [facility] [place] [facility] Cardiology /Electrophysiology Progress Note HPI / Interval History: Mr. Cruz is a 78 YO M known to Dr. Paredes ([facility]) who has a Pmhx of HTN, HLD, recent hip replacement (09/18/23) and R parietal CVA with high grade R external carotid stenosis in 04/2023 who presented from [facility] for high risk PCI. Dr. Nichole performed PCI on 09/26/23 with NORIS x 3 to LM, LAD, and RCA. After his PCI, he was in decompensated HF and went into afib/aflutter s/p DCCV. HF team asked to see him for HFrEF and concern for low output heart failure. This morning reports that overnight and this morning he has had worsening SOB. He did get up with PT this morning and made it out to the front end mechanic however was really SOB just doing that. Denies any dizziness/lightheadedness with ambulation. Plan for thoracentesis around 1130 AM this morning. Creatinine remains stable; no CXR to review for today. JVD is 8- 10 cm this morning with respiratory variation. BP's remain on the softer side BP/s 100 - 120/50 - 60's, MAPs 65 - 72. Remains in NSR. Assessment/Plan HFrEF: ICM: NYHA Class III - ICM s/p PCI of LM, LAD and RCA on 09/26/[address] Nichole - TTE on 09/30/23 with biventricular dysfunction, EF ~ 15%, 2+ MR, mild aortic stenosis, DVI of 0.35, mean gradient of 11 - This morning appears hypervolemic, JVD 8 - 10 cm; feels more SOB, going for thoracentesis this morning - Will plan to restart PO Toresmide 10 mg daily - Will reassume Spironolactone - Consider adding Farxiga tomorrow if tolerating reyes and Losartan - He was previously intolerant to Entresto (N/V); will hold ARB today, and restart reyes and ensureBP's will tolerate. Tomorrow will consider Losartan 25 mg daily - Continue Metoprolol succinate 75 mg daily Atrial Fibrillation/ Flutter with 2:1 Block - CHADsVASC of 4 - On Eliquis 5 mg BID, Metoprolol succinate 75 mg nightly and Amio 400 mg BID; is nearly loaded with amio - Remains in NSR this morning Bilateral Pleural Effusion: - On TTE from 09/30/23 had a large > 7 cm L pleural effusion - 2 view CXR demonstrated moderate to large bilateral pleural effusions - Plan for thoracentesis today MV CAD s/p PCI w/ NORIS to LM, LAD and RCA on 09/26/23 - ASA, PlavixStefany - Dr. Nichole following Medications: amiodarone, 400 mg, Oral, BID [Held by provider] apixaban, 5 mg, Oral, BID vitamin C, 500 mg, Oral, Daily aspirin, 81 mg, Oral, Daily atorvastatin, 40 mg, Oral, Daily clopidogrel, 75 mg, Oral, Daily metoprolol succinate XL, 75 mg, Oral, Nightly pantoprazole, 40 mg, Oral, qAM AC polyethylene glycol (PEG) 3350, 17 g, Oral, Daily [Held by provider] spironolactone, 12.5 mg, Oral, Daily [Held by provider] torsemide, 10 mg, Oral, Daily [Held by provider] valsartan, 40 mg, Oral, Daily Infusion Medications: Physical Examination: Vitals: 10/02/23 2156 10/02/23 2322 10/03/23 0455 10/03/23 0600 BP: 104/59 BP Location: Left arm Patient Position: Lying Pulse: 94 91 81 Resp: (!) 32 17 (!) 28 Temp: TempSrc: SpO2: 94% 98% 96% Weight: 209 lb 10.5 oz (95.1 kg) Height: Intake/Output Summary (Last 24 hours) at 10/03/2023 0659 Last data filed at 10/02/2023 2216 Gross per 24 hour Intake 53 ml Output 250 ml Net -197 ml Wt Readings from Last 3 Encounters: 10/03/23 209 lb 10.5 oz (95.1 kg) Physical Exam Vitals reviewed. Constitutional: Appearance: He is not ill-appearing. Eyes: General: No scleral icterus. Neck: Comments: JVD 8 - 10 cm Cardiovascular: Rate and Rhythm: Normal rate and regular rhythm. Pulses: Normal pulses. Heart sounds: Murmur heard. Pulmonary: Effort: No respiratory distress. Breath sounds: No rhonchi or rales. Comments: Diminished basilar breath sounds Abdominal: General: There is no distension. Palpations: Abdomen is soft. Tenderness: There is no abdominal tenderness. Musculoskeletal: Right lower leg: Edema present. Left lower leg: Edema present. Comments: Trace pitting LE edema Skin: Capillary Refill: Capillary refill takes less than 2 seconds. Neurological: General: No focal deficit present. Laboratory Tests: Recent Labs 10/01/23 0419 10/02/23 0050 10/03/23 0136 NA 137 136 137 K 4.0 3.9 4.1 CL 104 105 105 CO2 26 23 26 BUN 31* 29* 27* CREATININE 1.05 1.12 1.19 Recent Labs 10/01/23 0419 10/02/23 0050 10/03/23 0136 WBC 12.2* 11.5* 13.8* HGB 10.6* 9.6* 10.5* HCT 33.6* 31.9* 34.0* MCV 96.8 97.3 98.8 PLT 451* 426 478* No results for input(s): CKTOTAL, CKMB, CKMBINDEX, TROPONINI in the last 72 hours. No results for input(s): BNP in the last 72 hours. No results for input(s): TRIG, HDL, LDLCALC, CHOL in the last 72 hours. No results found for: LDLCHOLESTER Lab Results Component Value Date TSH 2.409 09/29/2023 EF BP Date Value Ref Range Status 09/30/2023 38 (A) 55 - 100 % Final 09/25/23 TRANSTHORACIC ECHOCARDIOGRAM (TTE) COMPLETE (CONTRAST/BUBBLE/3D PRN) 09/30/2023 6:33 PM (Final) Interpretation Summary Left Ventricle: Left ventricle is moderately dilated. Normal wall thickness. Severely reduced left ventricular systolic function. The EF by visual approximation is 15-20%. Severe global hypokinesis present. Right Ventricle: Right ventricle is mildly dilated. Mildly reduced systolic function. Aortic Valve: Mild to moderate stenosis of the aortic valve. AV mean gradient is 6 mmHg. AV peak gradient is 11 mmHg. LVOT:AV VTI Index is 0.35. AV area by continuity VTI is 1.1 cm2. Mitral Valve: Moderate (2+) regurgitation. Left Atrium: Left atrium is moderately dilated. Signed by: Frederick Mcclelland MD on 09/30/2023 6:33 PM Other reports reviewed: Cardiac Tests: ECG: Atrial flutter with intermittent 2:1 and 3:1 block, multiple PVCs Tracing reviewed. Telemetry findings reviewed: NSR with PVCs EF BP Date Value Ref Range Status 09/30/2023 38 (A) 55 - 100 % Final Christopher Salcedo DO Date Of Service 10/03/2023 I, Dr. Borrero, saw and evaluated the patient. I personally obtained the morrow and critical portions of the history and physical exam. I reviewed the chart, the fellow's documentation, and discussed the patient with the fellow. I agree with the fellow's medical decision making and have edited the note to reflect my clinical findings and my assessment and plan. * Travis Crawford MD - 10/02/2023 6:43 PM EDT Apparently patient had a recent hip replacement 09/17 at [facility]. Patient daughter and nursing department here at [facility] were reached out by [facility] ortho care nurses requesting suture removal. His surgeon at [facility] is Dr. Iwona Schreiber. [phone] is the office number. 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 * Isabel Mcdonald - 10/02/2023 1:42 PM EDT .Nutrition update completed. Chart reviewed. Patient to be monitored and followed by the diet clean room technician. .DEVORA Lares * Leonie Moe APRN - GELY - 10/02/2023 10:48 AM EDT Images from the original note were not included. [facility] Wound Care Progress Note Eben Cruz AGE: 78 y.o. GENDER: male : 1945 Subjective: HISTORY of PRESENT ILLNESS HPI Eben Cruz is a 78 y.o. male who presents for a wound care follow up. HPI: Eben Cruz is a 78 y.o. 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 He is known to [facility] outpatient. Had LHCin 2013 with non-obstructive CAD (per pt). NST 06/21/22 showed preserved EF, no ischemia. On 09/18/23, had total left hip replacement surgery at [facility]. Had complicated course requiringwound vac. Discharged to [facility] (SNF). Wound Care consulted for left hip wound. Patient states he had a hip replacement surgery on 09/18/23 at [facility]. Patient sitting up in chair. Family at bedside. PAST MEDICAL HISTORY Past Medical History: Diagnosis Date Adverse effect of anesthesia Arthritis Coronary artery disease Delayed emergence from general anesthesia Hypertension Stroke (HCC) PAST SURGICAL HISTORY Past Surgical History: Procedure Laterality Date CARDIAC CATHETERIZATION N/A 09/26/2023 Performed by Amos Nichole MD at [facility] Cardiac Cath/EP Lab CARDIAC CATHETERIZATION N/A 09/26/2023 Performed by Amos Nichole MD at [facility] Cardiac Cath/EP Lab HERNIA REPAIR INVASIVE VASCULAR PROCEDURE N/A 09/26/2023 Performed by Amos Nichole MD at [facility] Cardiac Cath/EP Lab JOINT REPLACEMENT both hip replacements, L shoulder FAMILY HISTORY No family history on file. SOCIAL HISTORY Social History Tobacco Use Smoking status: Never Smokeless tobacco: Never Vaping Use Vaping Use: Never used Substance Use Topics Alcohol use: Never Drug use: Never ALLERGIES Allergies Allergen Reactions Entresto [Sacubitril-Valsartan] Nausea And Vomiting Wool Alcohol [Lanolin] MEDICATIONS No current facility-administered medications on file prior to encounter. Current Outpatient Medications on File Prior to Encounter Medication Sig Dispense Refill amLODIPine (Norvasc) 2.5 MG tablet Take 2.5 mg by mouth daily. Ascorbic Acid (vitamin C) 100 MG tablet Take 100 mg by mouth daily. Unknown dosage aspirin 81 MG EC tablet Take 81 mg by mouth daily. atorvastatin (Lipitor) 40 MG tablet Take 40 mg by mouth daily. Calcium Carbonate-Vitamin D 500-5 MG-MCG tablet Take by mouth. metoprolol succinate XL (Toprol-XL) 50 MG 24 hr tablet Take 25 mg by mouth in the morning and 25 mgin the evening. Do not crush or chew.. zinc gluconate 50 MG tablet Take 50 mg by mouth daily. REVIEW OF SYSTEMS Pertinent items are noted in HPI. Objective: BP 91/65 (BP Location: Left arm, Patient Position: Sitting) Pulse 120 Temp 36.4 C (97.5 F) (Temporal) Resp 19 Ht 1.778 m (5' 10) Wt 94.7 kg (208 lb 12.4 oz) SpO2 98% BMI 29.96 kg/m PHYSICAL EXAM General appearance: in no apparent distress, alert, and oriented times 3 Skin: warm and dry Pulmonary: Normal effort, no respiratory distress, no cyanosis. Nasal cannula Extremities: no cyanosis, clubbing or edema- KIRIT hose in place Left hip: Incision well approximated. Sutures in place. No drainage noted. Periwound with scatteredscabbing noted. LABS CBC: Lab Results Component Value Date WBC 11.5 (H) 10/02/2023 HGB 9.6 (L) 10/02/2023 HCT 31.9 (L) 10/02/2023 MCV 97.3 10/02/2023 PLT 426 10/02/2023 BMP: Lab Results Component Value Date NA 136 10/02/2023 K 3.9 10/02/2023 CL 105 10/02/2023 CO2 23 10/02/2023 PHOS 4.7 (H) 10/02/2023 BUN 29 (H) 10/02/2023 CREATININE 1.12 10/02/2023 PT/INR: No results found for: PROTIME, INR Prealbumin: No results found for: PREALBUMIN Albumin:No components found for: LABALBU Sed Rate: Lab Results Component Value Date SEDRATE 65 (H) 09/30/2023 Micro: No components found for: BC Assessment/Plan: Left hip: surgical -leave [facility] -follow up with surgeon when discharged Nutritional support Wound Care to follow Recommend to follow up at [facility] wound care center after hospital discharge. Any questions or concerns please secure chat [facility] wound/ostomy. Thank you for the consult! I personally obtained the morrow and critical portions of the history and physical exam. I reviewed the labs, imaging studies, and electronic medical record. I reviewed the chart documentation and discussed the patient with treatment team members. I have edited the note to reflect my clinical findingsand my assessment and plan. Please note, the time of this note does not reflect the time I saw thispatient today, but the time of this documentaton. Portions of this note including HPI, ROS, impression/plan, and examination may have been copied forward from admission to today as to provide important historical information essential in contributing to medical decision making. Documentation has been reviewed and edited as necessary to support clinical decision making for today's visit and to reflect my own independent evaluation of this patient. Decision making for today's visit and to reflectmy own independent evaluation of this patient. * Brielle Metzger, PT - 10/02/2023 8:33 AM EDT Images from the original note were not included. PHYSICAL THERAPY [facility] Treatment Note Name/MRN: Eben Cruz ([id number]) Date of : 1945 Age: 78 y.o. Room/Bed: 1C-130/1C-130 A Discharge Recommendation: Nursing Home Facility Equipment Needed: No Other: He has a walker and a cane at home to use. Prior Level of Function ADL Assistance: Independent Ambulation Assistance: Device(s) used: cane Transfer Assistance: Independent Assessment Mr. Cruz is more awake and alert today. He is to have a procedure in a couple of hours and is NPOat this time. He is unable to tell me what procedure he will be having. He is willing to ambulate with me today, is on O2 via NC and the heart monitor. He does hold his breath and is short of breath upon sitting, needed to sit for a few minutes before he could ambulate. Had him concentrate on his breathing during slow ambulation. He was able to ambulate 30' x 3 with FWW and min assist. He remainsat SNF level for discharge. Subjective He is alert and cooperative. Willing to sit in the chair for a while after ambulating. Glad to be up and moving. Pain: RN managing pain. Medical Precautions: No active isolations Proper PPE donned/doffed in accordance with facility standards. Fall Risk: Davila Fall Risk Score: 60 (High Risk) Precautions/Restrictions: Left LE Weight Bearing: Weight Bearing As Tolerated Hip Precautions: Anterior Hip Precautions Lines/Drains/Airways: PIV Overall Cognitive Status: some difficulty with memory, but more alert today than past sessions. Overall Orientation Status: Oriented to Place, Oriented to Time, Oriented to Situation, and Oriented to Person Family/Caregiver Present: none Objective Ambulation Ambulation 1 Assistive device(s) used: front wheeled walker Assist level: Min Assist Distance (ft): 30' Quality of gait: antalgic, reciprocal stepping, narrow MARISA, slow evan Ambulation 2 Assistive device(s) used: front wheeled walker Assist level: Min Assist Distance (ft): 31' Quality of gait: shuffling, narrow MARISA, slow evan Ambulation 3 Assistive device(s) used: front wheeled walker Assist level: Min Assist Distance (ft): 32' Quality of gait: antalgic, slow evan Transfers/Mobility Sit to stand: Mod Assist Stand to sit: Mod Assist Poor eccentric control to sit in the chair. Device(s) used: none Bed Mobility Supine to sit: Mod Assist Sit to supine: Min Assist Balance: fair + Posture: fair Sitting - Static: Independent Sitting - Dynamic: Supervision Standing - Static: Min Assist Standing - Dynamic: Mod Assist Plan Continue acute PT per plan of care. Safety/Education Safety Safety Devices in place: call light within reach, left in chair, gait belt, patient at risk for falls, and nurse notified Restraints: No Education Education Given To: patient Education Provided: PT Role, PT Goals, Gait Training, Transfer Training, Fall Prevention Education,and Discharge Recommendations Education Method: Verbal and Demonstration Barriers to Learning: Hearing Education Outcome: Verbalized Understanding Outcome Measures AM-PAC AM-PAC Inpatient Mobility Raw Score (No Stairs) : 12 JH-HLM JH-HLM Score: Walked 25 ft or more (i.e. walked outside of room) Goals Patient Stated Goal: To feel better. Encounter Problems Encounter Problems (Active) Mobility Patient will ambulate 50 feet with mod assist and least restrictive device in order to improve safety and independence with mobility. (Progressing) Start: 09/27/23 Expected End: 10/18/23 Patient will ascend and descend 2 stairs with one railing and min assist in order to safely negotiate home. (Progressing) Start: 09/27/23 Expected End: 10/18/23 Transfers Patient will perform bed mobility with min assist in order to improve independence and prepare for out of bed mobility. (Progressing) Start: 09/27/23 Expected End: 10/18/23 Patient will complete functional transfer with least restrictive device with mod assist in order toprepare for ambulation. (Progressing) Start: 09/27/23 Expected End: 10/18/23 Therapy Time Individual Co-treatment Time In 0800 Time Out 0820 Minutes 20 Brielle Metzger PT * Charlette Borrero MD - 10/02/2023 7:05 AM EDT [facility] [place] [facility] Cardiology /Electrophysiology Progress Note HPI / Interval History: Mr. Cruz is a 78 YO M known to Dr. Paredes ([facility]) who has a Pmhx of HTN, HLD, recent hip replacement (09/18/23) and R parietal CVA with high grade R external carotid stenosis in 04/2023 who presented from [facility] for high risk PCI. Dr. Nichole performed PCI on 09/26/23 with NORIS x 3 to LM, LAD, and RCA. After his PCI, he was in decompensated HF and went into afib/aflutter. HF team asked to see him for HFrEF and concern for low output heart failure. This morning is resting in bed, reports that he feels about the same as yesterday. On telemetry this morning appears to be in AFIB. Discussed plan for DCCV today. Reviewed his CXR completed on 10/01/23 demonstrating bilateral pleural effusions w/o pulmonary edema. On exam this morning remains euvolemic to dry. JVD is 3 - 5 cm at the level of the clavicle with respiratory variation while laying at ~ 30 degrees. Trace pitting bilateral LE edema. Remains warm. Discussed with Dr. Nichole, will plan for DCCV today and possible thoracentesis tomorrow. Assessment/Plan HFrEF: ICM: NYHA Class III - ICM s/p PCI of LM, LAD and RCA on 09/26/[address] Nichole - TTE on 09/30/23 with biventricular dysfunction, EF ~ 15%, 2+ MR, mild aortic stenosis, DVI of 0.35, mean gradient of 11 - This morning appears dry to euvolemic still; JVD ~ 5 cm, trace LE pitting edema. - Plan to hold diuresis today - BP's remain soft, he is warm on exam - Continue to hold PO afterload reduction given hypotension - Believe his BP's will improve if we can get back into NSR and will accumulation of some fluid - Discussed with Dr. Nichole this morning, agrees with volume assessment and plan to hold diuresis today. Will go for DCCV today and thoracentesis tomorrow - HF will continue to follow Atrial Fibrillation/ Flutter with 2:1 Block - CHADsVASC of 4 - On Eliquis 5 mg BID, Metoprolol succinate 75 mg nightly and Amio 400 mg BID; is nearly loaded with amio - Plan for DCCV today Bilateral Pleural Effusion: - On TTE from 09/30/23 had a large > 7 cm L pleural effusion - 2 view CXR demonstrated moderate to large bilateral pleural effusions - Will plan for DCCV today and tonight hold Eliquis with planned Thoracentesis on 10/03/23 MV CAD s/p PCI to LM, LAD and RCA on 09/26/23 Medications: amiodarone, 400 mg, Oral, BID apixaban, 5 mg, Oral, BID vitamin C, 500 mg, Oral, Daily aspirin, 81 mg, Oral, Daily atorvastatin, 40 mg, Oral, Daily clopidogrel, 75 mg, Oral, Daily metoprolol succinate XL, 75 mg, Oral, Nightly pantoprazole, 40 mg, Oral, qAM AC polyethylene glycol (PEG) 3350, 17 g, Oral, Daily [Held by provider] spironolactone, 12.5 mg, Oral, Daily [Held by provider] torsemide, 10 mg, Oral, Daily [Held by provider] valsartan, 40 mg, Oral, Daily Infusion Medications: Physical Examination: Vitals: 10/01/23 1939 10/01/23 2335 10/02/23 0353 10/02/23 0600 BP: 103/67 92/65 91/64 BP Location: Left arm Left arm Left arm Patient Position: Lying Lying Lying Pulse: (!) 129 74 (!) 123 Resp: 20 18 Temp: 36.3 C (97.4 F) 36.5 C (97.7 F) 36.4 C (97.6 F) TempSrc: Temporal Temporal Temporal SpO2: 99% 94% 98% Weight: 208 lb 12.4 oz (94.7 kg) Height: Intake/Output Summary (Last 24 hours) at 10/02/2023 0706 Last data filed at 10/02/2023 0631 Gross per 24 hour Intake 100 ml Output 940 ml Net -840 ml Wt Readings from Last 3 Encounters: 10/02/23 208 lb 12.4 oz (94.7 kg) Physical Exam Vitals reviewed. Constitutional: Appearance: He is not ill-appearing. Eyes: General: No scleral icterus. Neck: Comments: JVD 3 - 5 cm Cardiovascular: Rate and Rhythm: Tachycardia present. Rhythm irregular. Pulses: Normal pulses. Heart sounds: Murmur heard. Pulmonary: Effort: No respiratory distress. Breath sounds: No rhonchi or rales. Comments: Diminished basilar breath sounds Abdominal: General: There is no distension. Palpations: Abdomen is soft. Tenderness: There is no abdominal tenderness. Musculoskeletal: Right lower leg: Edema present. Left lower leg: Edema present. Comments: Trace pitting LE edema Skin: Capillary Refill: Capillary refill takes less than 2 seconds. Neurological: General: No focal deficit present. Laboratory Tests: Recent Labs 09/30/23 0004 10/01/23 0419 10/02/23 0050 NA 137 137 136 K 4.5 4.0 3.9 CL 104 104 105 CO2 24 26 23 BUN 37* 31* 29* CREATININE 1.20 1.05 1.12 Recent Labs 09/30/23 0004 10/01/23 0419 10/02/23 0050 WBC 13.5* 12.2* 11.5* HGB 10.8* 10.6* 9.6* HCT 34.8* 33.6* 31.9* MCV 96.1 96.8 97.3 PLT 482* 451* 426 No results for input(s): CKTOTAL, CKMB, CKMBINDEX, TROPONINI in the last 72 hours. No results for input(s): BNP in the last 72 hours. No results for input(s): TRIG, HDL, LDLCALC, CHOL in the last 72 hours. No results found for: LDLCHOLESTER Lab Results Component Value Date TSH 2.409 09/29/2023 EF BP Date Value Ref Range Status 09/30/2023 38 (A) 55 - 100 % Final 09/25/23 TRANSTHORACIC ECHOCARDIOGRAM (TTE) COMPLETE (CONTRAST/BUBBLE/3D PRN) 09/30/2023 6:33 PM (Final) Interpretation Summary Left Ventricle: Left ventricle is moderately dilated. Normal wall thickness. Severely reduced left ventricular systolic function. The EF by visual approximation is 15-20%. Severe global hypokinesis present. Right Ventricle: Right ventricle is mildly dilated. Mildly reduced systolic function. Aortic Valve: Mild to moderate stenosis of the aortic valve. AV mean gradient is 6 mmHg. AV peak gradient is 11 mmHg. LVOT:AV VTI Index is 0.35. AV area by continuity VTI is 1.1 cm2. Mitral Valve: Moderate (2+) regurgitation. Left Atrium: Left atrium is moderately dilated. Signed by: Frederick Mcclelland MD on 09/30/2023 6:33 PM Other reports reviewed: Cardiac Tests: ECG: Atrial flutter with intermittent 2:1 and 3:1 block, multiple PVCs Tracing reviewed. Telemetry findings reviewed: Intermittent atrial flutter and atrial fibrillation EF BP Date Value Ref Range Status 09/30/2023 38 (A) 55 - 100 % Final Christopher Salcedo DO Date Of Service 10/02/2023 I, Dr. Borrero, saw and evaluated the patient. I personally obtained the morrow and critical portions of the history and physical exam. I reviewed the chart, the fellow's documentation, and discussed the patient with the fellow. I agree with the fellow's medical decision making and have edited the note to reflect my clinical findings and my assessment and plan. * Amos Nichole MD - 10/02/2023 6:36 AM EDT [facility] [place] [facility] Cardiology /Electrophysiology Progress Note HPI / Interval History: Mr. Cruz reports not feeling well. Doesn't sleep well and has chronic back discomfort. SOB unchanged, occ PND. Denies CP, orthopnea, palpitations, dizziness, syncope, bleeding, BINGHAM, or edema. Sitting up in chair. Family at bedside. Awaiting DCC at noon today. S/p DCC at noon. Hr 80 SR. Lying flat. Denies CP or dyspnea. Chief Complaint: CAD Assessment/Plan HF NYHA Class [] I [] II [x] III [] IV CAD/NSTEMI s/p IVL with NORIS to LMCA, ostial RCA, ostial and prox LAD 09/26/23 - Stable. Denies CP. SOB unchanged. On triple therapy with ASA/clopidogrel/apixaban. At discharge, will stop ASA and continue clopidogrel and apixaban. Continue metopolol succinate and atorvastatin. Refer to cardiac rehab outpt once stable from hip standpoint. Doing well. Continue ASA & Clopidogrel. Stop Apixaban. Get bilateral decubital XR. Plan for bilateral horacentesis of fluid layers tomorrow then restart Apixaban. Stop ASA at time of discharge. HFrEF 25%/CM - Stable. Appears euvolemic. Wt up 17lbs (unsure if accurate). I/O -840cc/24 hrs (unsure if ccurate as PO is only 100cc). Creat 1.12. On metoprolol succinate. Currently holding torsemide/valsartan/spironolactone due to hypotension. Consulted advanced HF and they recommend to hold diuresis and PO afterload reduction for now. Appreciate input from HF Service AFib/AFlutter/MAT/PVCs/SVT - He was started on amiodarone drip and converted to SR with frequent PVCs, PACs. On amiodarone 400 mg bid until he goes home, then decrease to 400 mg daily for 1 month, then decrease to 200 mg daily. TSH normal, LFTs improving. Continue apixaban 5 mg bid for CHADS2-VASC score of 6. Continue p.o. amiodarone, continue apixaban. Sunday, BB increased. HR remains elevated 110-130s, asymptomatic. Plan for DCC today. If does not stay in SR then consult EP. Back in SR following cardioversion. On Amio 400 BID. On discharge reduce to 400 every day x 1 month then drop to 200 daily. Pleural effusion - Echo 09/29 showed large >7cm L pleural effusion. CXR showed large bilateral pleural effusions. Dr. Nichole recommends to hold apixaban tonight and tomorrow morning and then plan for bilateral thoracentesis tomorrow. UTI (uncomplicated) - Resolved.Received C&S results from [facility], +ecoli in urine. Sensitive tocephalosporins. Continue Rocephin for 5 days today (last dose on Sunday). Ceftriaxone completed on 09/29/2023. No further antibiotics needed. Hx CVA - With right ECA stenosis. Continue DAPT and atorvastatin. Hypocalcemia/Hypokalemia - Resolved. K+ 3.9 today. Recent left hip fracture s/p left hip arthroplasty 09/18/23 - Has sutures in place. I d/w family who have been in contact with surgeon and he wants sutures to remain in place for at least 2 weeks. [facility] SN[facility] discharge. HLD - LDL 39. Continue atorvastatin. HTN - BP 90-110/60-80s. Debility - PT/OT recommending SNF, awaiting acceptance. Goals of care - Palliative following. Remains Full Code and their note states he wishes to continuemedical treatments at this time Will d/w Dr. Nichole Medications: amiodarone, 400 mg, Oral, BID [Held by provider] apixaban, 5 mg, Oral, BID vitamin C, 500 mg, Oral, Daily aspirin, 81 mg, Oral, Daily atorvastatin, 40 mg, Oral, Daily clopidogrel, 75 mg, Oral, Daily metoprolol succinate XL, 75 mg, Oral, Nightly pantoprazole, 40 mg, Oral, qAM AC polyethylene glycol (PEG) 3350, 17 g, Oral, Daily [Held by provider] spironolactone, 12.5 mg, Oral, Daily [Held by provider] torsemide, 10 mg, Oral, Daily [Held by provider] valsartan, 40 mg, Oral, Daily Infusion Medications: Physical Examination: Vitals: 10/02/23 0600 10/02/23 0732 10/02/23 1052 10/02/23 1330 BP: 91/65 101/65 142/62 BP Location: Left arm Left arm Patient Position: Sitting Sitting Pulse: 120 (!) 128 85 Resp: 19 (!) 26 22 Temp: 36.4 C (97.5 F) 36.6 C (97.8 F) TempSrc: Temporal Temporal SpO2: 98% 100% 96% Weight: 208 lb 12.4 oz (94.7 kg) Height: Intake/Output Summary (Last 24 hours) at 10/02/2023 1405 Last data filed at 10/02/2023 1250 Gross per 24 hour Intake 153 ml Output 440 ml Net -287 ml Wt Readings from Last 3 Encounters: 10/02/23 208 lb 12.4 oz (94.7 kg) Physical Exam Constitutional: Appearance: Normal appearance. He is not diaphoretic. HENT: Head: Normocephalic and atraumatic. Right Ear: External ear normal. Left Ear: External ear normal. Nose: Nose normal. Eyes: General: Right eye: No discharge. Left eye: No discharge. Cardiovascular: Rate and Rhythm: Tachycardia present. Rhythm irregularly irregular. Pulses: Normal pulses. Heart sounds: Murmur heard. Systolic murmur is present with a grade of 1/6. Pulmonary: Breath sounds: Normal breath sounds. Abdominal: General: Bowel sounds are normal. Palpations: Abdomen is soft. Musculoskeletal: General: Normal range of motion. Skin: General: Skin is warm and dry. Coloration: Skin is not jaundiced. Comments: Left hip/thigh with sutures, D&I Neurological: Mental Status: He is alert and oriented to person, place, and time. Psychiatric: Mood and Affect: Mood normal. Behavior: Behavior normal. Laboratory Tests: Recent Labs 09/30/23 0004 10/01/23 0419 10/02/23 0050 NA 137 137 136 K 4.5 4.0 3.9 CL 104 104 105 CO2 24 26 23 BUN 37* 31* 29* CREATININE 1.20 1.05 1.12 Recent Labs 09/30/23 0004 10/01/23 0419 10/02/23 0050 WBC 13.5* 12.2* 11.5* HGB 10.8* 10.6* 9.6* HCT 34.8* 33.6* 31.9* MCV 96.1 96.8 97.3 PLT 482* 451* 426 Lab Results Component Value Date TSH 2.409 09/29/2023 EF BP Date Value Ref Range Status 09/30/2023 38 (A) 55 - 100 % Final 09/25/23 TRANSTHORACIC ECHOCARDIOGRAM (TTE) COMPLETE (CONTRAST/BUBBLE/3D PRN) 09/30/2023 6:33 PM (Final) Interpretation Summary Left Ventricle: Left ventricle is moderately dilated. Normal wall thickness. Severely reduced left ventricular systolic function. The EF by visual approximation is 15-20%. Severe global hypokinesis present. Right Ventricle: Right ventricle is mildly dilated. Mildly reduced systolic function. Aortic Valve: Mild to moderate stenosis of the aortic valve. AV mean gradient is 6 mmHg. AV peak gradient is 11 mmHg. LVOT:AV VTI Index is 0.35. AV area by continuity VTI is 1.1 cm2. Mitral Valve: Moderate (2+) regurgitation. Left Atrium: Left atrium is moderately dilated. Signed by: Frederick Mcclelland MD on 09/30/2023 6:33 PM PCI 09/26/23: Conclusions Mildly elevated LVEDP 18 mmHG Severe calcified left main( ostial 50%, distal 80%) stenosis Severe calcified proximal LAD( 80%) stenosis Small D1 with proximal 70% lesion Ostial LCX SECTIONIZER heavily calcified with no collaterals Severely calcified ostial RCA(90%) lesion, mid(30%) and distal RCA(50%) Successful IVUS guided Intravascular Lithotripsy and NORIS of ostial RCA. Successful IVUS guided Intravascular Lithotripsy and NORIS of LMCA. Successful IVUS guided Intravascular Lithotripsy and NORIS of ostial and proximal LAD. Plan DAPT for at least 1 year and ocean transportation intermediary if tolerates. Single antiplatelet lifelong High intensity statin Aggressive risk factor modification Optimal GDMT for ischemic cardiomyopathy Remove right femoral arterial sheath once ACT is less than 160 seconds. Patient to lay supine for 6hrs post sheath removal. CXR 10/02/23: FINDINGS: Moderate to large pleural effusions bilaterally. No vascular congestion or focal infiltrate. Heart size normal. IMPRESSION: 1. Moderate to large bilateral pleural effusions. Cardiac Tests: ECG: Atrial Flutter, 2:1 AV block Telemetry findings reviewed: AFib/Flutter 110-120s EF BP Date Value Ref Range Status 09/30/2023 38 (A) 55 - 100 % Final Amos Nichole MD Date Of Service 10/02/2023 I, Dr. Amos Nichole, saw and evaluated the patient on 10/02/2023. I personally obtained the morrow and critical portions of the history and physical exam. I reviewed the labs, imaging studies, and electronic medical record. I reviewed the MARITZA's documentation, and discussed the patient with the MARITZA. Iagree with the MARITZA's medical decision making and have edited the note to reflect my clinical findings and my assessment and plan. I performed a substantive portion of the care of this patient. * Rachael Navarro, OT - 10/01/2023 2:47 PM EDT Images from the original note were not included. OCCUPATIONAL THERAPY [facility] Initial Evaluation Name/MRN: Eben Cruz ([id number]) Evaluation Date: 10/01/2023 Date of : 1945 Admission Date: 09/25/2023 12:49 PM Age: 78 y.o. Room/Bed: 1C-130/1C-130 A Discharge Recommendation: IP Rehab Equipment Needed: (defer to next level of care) Assessment IMPRESSION: Patient is a 78-year-old male hospitalized s/p NSTEMI. Patient recently with L hip total hip replacement on 09/18/23. Patient is functionally independent with self-care tasks and functionalmobility at baseline. Patient is limited by the deficits listed below. Patient is SBA for UB ADLs, Max Assist LB ADLs and Max Assist toileting. Patient is Mod Assist for transfers/functional mobility. Recommending Inpatient Rehab upon discharge. Performance Deficits /Impairments: Increased Pain, Decreased Functional Mobility, Decreased ADL status, Decreased Strength, Decreased Safety Awareness, Decreased Cognition, Decreased Endurance, Decreased Balance, and Decreased Posture Prognosis: Good Decision Making: Medium Complexity Subjective Patient is sitting in recliner; patient agreeable to therapy evaluation. RN ok'd for participation. This therapist called and spoke with Renate from therapy department at [facility], where patient was at prior to admission to this facility. Renate states that patient is WBAT with anterior hip precautions. Pain: RN managing pain. Past Medical History: Past Medical History: Diagnosis Date Adverse effect of anesthesia Arthritis Coronary artery disease Delayed emergence from general anesthesia Hypertension Stroke ([facility]) Past Surgical History: Past Surgical History: Procedure Laterality Date CARDIAC CATHETERIZATION N/A 09/26/2023 Performed by Amos Nichole MD at [facility] Cardiac Cath/EP Lab CARDIAC CATHETERIZATION N/A 09/26/2023 Performed by Amos Nichole MD at [facility] Cardiac Cath/EP Lab HERNIA REPAIR INVASIVE VASCULAR PROCEDURE N/A 09/26/2023 Performed by Amos Nichole MD at [facility] Cardiac Cath/EP Lab JOINT REPLACEMENT both hip replacements, L shoulder Admission Diagnosis: Patient Active Problem List Diagnosis Date Noted HFrEF (heart failure with reduced ejection fraction) ([facility]) 09/28/2023 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 Fall Risk: Davila Fall Risk Score: 60 (High Risk) Precautions/Restrictions: Left LE Weight Bearing: Weight Bearing As Tolerated Hip Precautions: Anterior Hip Precautions Lines/Drains/Airways: PIV Family/Caregiver Present: none Overall Cognitive Status: Exceptions - Memory: decreased recall of precautions and decreased recall of recent events - Safety judgement: decreased awareness of need for assistance and decreased awareness of need for safety - Problem solving: decreased awareness of errors - Sequencing: requires cues for some Overall Orientation Status: Oriented x4 Social/Functional History Patient admitted from home. Lives With: Alone Type of Home: single family home Home Layout: Two-story house with 1st floor set up Home Access: Stairs to Enter with Rails (# of stairs: 2) Bathroom Shower/Tub: Step over tub on main floor, walk in shower in basement Toilet: Standard Home Equipment: front wheeled walker and cane Homemaking Responsibilities: Needs Assist Receives Help From: Family Active Candy Butcher: No Prior Level of Function ADL Assistance: Independent Ambulation Assistance: Independent Transfer Assistance: Independent Objective ADLs LE Dressing: Patient states that he uses sock aide at baseline- anticipate assistance with donning pants over hips secondary to heavy reliance on BUE. Upper Extremity Assessment AROM: WFL PROM: WFL Strength: Exceptions: BUE strength: 3/5 Vision: no visual deficits Hearing: normal Bed Mobility NT- patient in recliner pre/post therapy evaluation. Transfers/Functional Mobility Sit to stand: Mod Assist Stand to sit: Mod Assist Sitting balance: Supervision Standing balance: Min Assist Patient mod A for sit-stand from recliner. Patient with complaints of dizziness upon standing; dizziness did not improve. Return to sitting with dizziness resolved. Patient FAIR- standing balance. Heavy reliance on BUE with standing. Patient did not ambulate this date. Patient requiring cueing for hand placement and for controlled sitting. Device(s) used: front wheeled walker AM-PAC AM-PAC Inpatient Daily Activity Raw Score: 15 ADL Inpatient CMS G-Code Modifier: CK Plan Pt would benefit from skilled acute OT services to address Strengthening, Balance Training, Functional Mobility Training, Endurance Training, Gait Training, Cognitive Reorientation, Pain Management, Safety Education and Training, Patient/Caregiver Training, and Self-Care/ADL Training. Frequency: 3x/week for 4 weeks Barriers: Pain, Impulsivity, Limited safety awareness, Decreased endurance, Upper extremity weakness, and Lower extremity weakness Prognosis: fair Safety/Education Safety Safety Devices in place: All fall risk precautions in place, call light within reach, left in chair, gait belt, and nurse notified Restraints: No Education Education Given To: patient Education Provided: OT Role, Plan of Care, Precautions, and Discharge Recommendations Education Method: Verbal Barriers to Learning: Cognition Education Outcome: Continued Education Needed Goals Patient Stated Goal: to get stronger Encounter Problems Encounter Problems (Active) Balance Patient will maintain dynamic standing balance for 3-5 minutes with SBA in order to demonstrate decreased risk of falling. Start: 10/01/23 Expected End: 10/29/23 Bathing Patient will utilize adaptive techniques to bathe body min A. Start: 10/01/23 Expected End: 10/29/23 Dressing Upper Extremities Patient will complete upper body dressing SBA. Start: 10/01/23 Expected End: 10/29/23 Dressings Lower Extremities Patient will dress lower body min A. Start: 10/01/23 Expected End: 10/29/23 Toileting Patient will complete toileting tasks at standard toilet with min assist. Start: 10/01/23 Expected End: 10/29/23 Therapy Time Individual Co-treatment Time In 1435 Time Out 1447 Minutes 12 Rachael Navarro OT Patient's Occupational Therapy Plan of Care supervision is transferred to a [facility] Occupational Therapist. Goals and/or treatment plan was established in collaboration with patient/family/other representatives. * Yajaira Thakkar APRN - AIRPLANE FIRST OFFICER - 10/01/2023 1:20 PM EDT Images from the original note were not included. Palliative Care Progress Note Chief Complaint: Eben Cruz is a 78 y.o. male with chief complaint of shortness of breath. 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, 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 [employer] L hip fracture - post arthroplasty 09/18/23 - SNF [facility] - he continues to have sutures LLE, I did not see on paper chart when to be taken out Risk for constipation - no longer feels constipated, BM today - changed prn polyethylene glycol to schedule Insomnia, depression, poor appetite - major life change - 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 - aware unfortunately antidepressants can affect heart and will not be starting at this time, 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 did visit and was helpful, just expresses frustration as not improving as fast as nathen Palliative Care Encounter -full code - - consulted for goals of care - he had not discussed with children over weekend code status, he wishes to continue medical treatments at this time - will continue to follow for ongoing monitoring of progression of Anorexia - will continue to evaluate test results related to NSTEMI , medication effectiveness for Anorexia,response to treatment of NSTEMI - follow peripherally Total of 40 minutes spent on this encounter including Chart review, Patient visit and exam, Documentation in EHR, Care coordination, Communicating with primary attending or other consultants, and Counseling and educating patient/family/caregiver. Discharge planning: Not ready for discharge due to medical instability and pending insurance approval to SNF Patient meets criteria for general inpatient hospice care including the following: N/A - PalliativeCare Patient Referrals to: None Discussed patient and the plan of care with the other interdisciplinary team (IDT) members of Palliative Care Team, and with Primary Provider, Patient, and Floor Nurse Insert attestation statement here if applicable (.disupervision) or (.npattest) Subjective: Subjective/Events Since last seen: remains on telemetry, sitting in bedside chair without pain, CP, abdominal pain, breathing not labored, no nausea, vomiting, appetite poor, education surrounding this, BM today. He is frustrated with not improving as fast as he wished. Offered support Eben Cruz is a 78 y.o. male living independently at home, still driving, working [employer] for [employer]. PMHx includes: HTN, HLD, partial R CVA. At [facility] for L total hip replacement but complicated by requirement of wound vac, was at SNF. transferred to [place] for cardiology NSTEMI, transferred to [facility] for PCI. Family called with stating he needs to be DNR but he is oriented, palliative care consulted for goals of care Goals of care:Continue Current Management Functional Assessment: PPS: 50% Advance Directives: Full Code Surrogate: Child Prognosis: unknown Spiritual assessment: No spiritual distress identified Bereavement and grief: Grief Issues Not Identified Review of Systems ROS: See palliative care ROS/ESAS below; All other systems were reviewed and are negative. [place] Symptom Assessment Score [place] Score Pain Score 0 Tiredness Score 0 Nausea Score 0 Depression Score 0 Anxiety Score 0 Drowsiness Score 0 Anorexia Score (0= eating well, 10= not eating) 7 Wellbeing Score (10= worst sense of well-being) 0 Constipation 0 Dyspnea Score (0= no shortness of breath) 0 FLACC Scale (For Pain Assessment of the Non-Verbal Patient) Patient is verbal Assessed by: patient and provider. 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 HENT: Head: Normocephalic and atraumatic. Nose: Nose normal. Mouth/Throat: Mouth: Mucous membranes are moist. Eyes: General: Right eye: No discharge. Left eye: No discharge. Pupils: Pupils are equal, round, and reactive to light. Cardiovascular: Rate and Rhythm: Tachycardia present. Rhythm irregular. Pulses: Normal pulses. Heart sounds: Normal heart sounds. No murmur heard. Comments: No edema B post tib/dorsalis pedis palpable Pulmonary: Effort: Pulmonary effort is normal. Breath sounds: Normal breath sounds. Abdominal: General: Bowel sounds are normal. There is no distension. Palpations: Abdomen is soft. There is no mass. Genitourinary: Comments: continent Musculoskeletal: Cervical back: Normal range of motion and neck supple. Right lower leg: No edema. Left lower leg: No edema. Skin: General: Skin is warm and dry. Comments: fragile Neurological: General: No focal deficit present. Mental Status: He is alert and oriented to person, place, and time. Psychiatric: Mood and Affect: Mood normal. Behavior: Behavior normal. Behavior is cooperative. Comments: No agitation Current Medications: Inpatient medications reviewed: yes Home medications reviewed: yes OARRS Reviewed: copied from initial consult: Yes-oxycodone 5mg #28(7D) filled 05/2023, all other prior to this 24 Hour PRN Meds: no PRN medications in 24 hours Results/Verification of Data Review Objective data reviewed (be specific which labs, imaging reports with dates reviewed): MAR/vitals/labs reviewed 10/01/23 Data in Support of Terminal Illness: Is patient hospice appropriate? TBD * Brielle Metzger, PT - 10/01/2023 8:33 AM EDT Images from the original note were not included. PHYSICAL THERAPY [facility] Treatment Note Name/MRN: Eben Cruz ([id number]) Date of : 1945 Age: 78 y.o. Room/Bed: 1C-130/1C-130 A Discharge Recommendation: Nursing Home Facility Equipment Needed: No Other: He has a walker and a cane at home to use. Prior Level of Function ADL Assistance: Independent Ambulation Assistance: Device(s) used: cane Transfer Assistance: Independent Assessment Pt wanting to get up to chair to eat breakfast. He has been kept NWB, awaiting an order for actual weight bearing status. He is not able to pivot to the chair without putting weight through his left LE, so he has not yet ambulated. He Cannot remember whether he ambulated at his previous facility. He did ambulate 94' with CGA per the notes, with a FWW. He is currently requiring mod. Assist to transfer, and is touching down with his left foot. When explained to him why we are doing this, he answers affirmatively, but does not follow the directions. He is at SNF level for PT. He is a poor historian. Subjective Pt in bed at onset of this session, tried to pivot without weight bearing , but he does bear weighttoday despite explanation of WB status(keeping him NWB until we get an official order of WB status). He was in the chair at the end of the session with his breakfast tray in front of him, a blanket around him. He is on tele. Pain: Pt denies any current pain. Medical Precautions: No active isolations Proper PPE donned/doffed in accordance with facility standards. Fall Risk: Davila Fall Risk Score: 60 (High Risk) Precautions/Restrictions: Left LE Weight Bearing: Lines/Drains/Airways: IV, O2, tele lines Left hip pain Overall Cognitive Status: unreliable historian Overall Orientation Status: Oriented to Place, Oriented to Situation, and Oriented to Person Family/Caregiver Present: none Objective Ambulation Did not assess this session. Transfers/Mobility Sit to stand: Mod Assist Stand to sit: Min Assist Stand pivot: Mod Assist, unable to maintain NWB as requested. Device(s) used: He required reminders for hand placement and safety. Balance: decreased in standing Posture: fair Sitting - Static: Contact Guard Sitting - Dynamic: Min Assist Standing - Static: Min Assist Standing - Dynamic: Mod Assist Plan Continue acute PT per plan of care. Safety/Education Safety Safety Devices in place: call light within reach, left in chair, gait belt, and nurse notified Restraints: No Education Education Given To: patient Education Provided: PT Role, PT Goals, Transfer Training, Orientation, Equipment, and Discharge Recommendations Education Method: Verbal and Demonstration Barriers to Learning: Hearing, Vision Education Outcome: Verbalized Understanding and Continued Education Needed Outcome Measures AM-PAC AM-PAC Inpatient Mobility Raw Score (No Stairs) : 12 JH-HLM -HLM Score: Static standing (1 or more minutes) Goals Patient Stated Goal: To feel better. Encounter Problems Encounter Problems (Active) Mobility Patient will ambulate 50 feet with mod assist and least restrictive device in order to improve safety and independence with mobility. (Not Addressed) Start: 09/27/23 Expected End: 10/18/23 Patient will ascend and descend 2 stairs with one railing and min assist in order to safely negotiate home. (Not Addressed) Start: 09/27/23 Expected End: 10/18/23 Transfers Patient will perform bed mobility with min assist in order to improve independence and prepare for out of bed mobility. (Not Addressed) Start: 09/27/23 Expected End: 10/18/23 Patient will complete functional transfer with least restrictive device with mod assist in order toprepare for ambulation. (Progressing) Start: 09/27/23 Expected End: 10/18/23 Therapy Time Individual Co-treatment Time In 0800 Time Out 0815 Minutes 15 Brielle Metzger PT * Amos Nichole MD - 10/01/2023 7:48 AM EDT [facility] [place] [facility] Cardiology /Electrophysiology Progress Note HPI / Interval History: Mr. Cruz reports feeling better today. Has occasional CP that lasts seconds and resolves on its own. Still gets occasional SOB. Did not sleep well last night and states he always has hard time sleeping in hospital. Had slight lightheadedness when transferring to and from bedside commode. Just finished eating breakfast and getting washed up. Sitting in chair reading newspaper and appears comfortable. Up to chair. Trivial CPs lasting seconds at a time. Edema has decreased. Back in Afib w rates 130. Assessment/Plan HF NYHA Class [] I [x] II [] III [] IV CAD/NSTEMI s/p IVL with NORIS to LMCA, ostial RCA, ostial and prox LAD 09/26/23 - Stable. Reports CP that lasts few seconds and resolves on its own. Has intermittent SOB, feeling like he cannot catch his breath. Currently on triple therapy with ASA/ticagrelor/Apixaban. Due to SOB, will change ticagrelor to clopidogrel. At discharge, will stop ASA and continue clopidogrel and apixaban. Continue metopolol succinate and atorvastatin. Refer to cardiac rehab outpt once stable from hip standpoint. [facility] from coronary standpoint. Change Brilinta to Clopidogrel. Hgb stable. Stop ASA on discharge. HFrEF 25%/Ischemic CM - NYHA II-III, Stage C. No wt today. I/O -40cc/24 hours, - 2991cc since admit.Creat 1.05. Has intermittent SOB and changing antiplatelet med as above to see if contributing. On torsemide 10mg daily. On metoprolol succinate. Due to hypotension, valsartan/spironolactone/and SGLT2 held. NYHA 3. BP limits further GDMT. Will ask Advanced HF to consult. Consider RHC. MAT/Frequent PVCs/SVT/AFib - He was started on amiodarone drip and converted to SR with frequent PVCs, PACs. On amiodarone 400 mg bid until he goes home, then decrease to 400 mg daily for 1 month, then decrease to 200 mg daily. TSH normal, LFTs improving. Continue apixaban 5 mg bid for CHADS2-VASC score of 6. Continue p.o. amiodarone, continue apixaban. Yesterday, BB increased. HR remains elevated 110-130s, asymptomatic. Will d/w Dr. Nichole re: EP consult. Continue to load w po Amio. Plan on DCC tomorrow. Limited on meds to control rate. Consider Dig. eGFR 71. Plan on EP consult if does not stay in SR after DCC. UTI (uncomplicated) - Received C&S results from [facility], +ecoli in urine. Sensitive to cephalosporins. Continue Rocephin for 5 days today (last dose on Sunday). Ceftriaxone completed on 09/29/2023. No further antibiotics needed. Resolved Hx CVA - with right ECA stenosis. Continue DAPT and atorvastatin. Hypocalcemia/Hypokalemia - Resolved. Spironolactone currently on hold. Recent left hip fracture s/p left hip arthroplasty 09/18/23 - PT/OT eval for rehab. Wound care eval. Advance activity, pain control. LOC, miralax prn. Last BM 09/26/22. I.S., C&DB. He was to go to [facility]. Care Management/TCC involved with this. [facility] on discharge HLD - LDL 39. Continue atorvastatin. HTN - BP 90-110s/50-70s. Debility - PT/OT eval. Will need rehab. Goals of Care - Palliative care consulted. Will d/w Dr. Nichole. Medications: amiodarone, 400 mg, Oral, BID apixaban, 5 mg, Oral, BID vitamin C, 500 mg, Oral, Daily aspirin, 81 mg, Oral, Daily atorvastatin, 40 mg, Oral, Daily metoprolol succinate XL, 75 mg, Oral, Nightly pantoprazole, 40 mg, Oral, qAM AC polyethylene glycol (PEG) 3350, 17 g, Oral, Daily [Held by provider] spironolactone, 12.5 mg, Oral, Daily ticagrelor, 90 mg, Oral, BID torsemide, 10 mg, Oral, Daily [Held by provider] valsartan, 40 mg, Oral, Daily Infusion Medications: Physical Examination: Vitals: 09/30/23 2100 09/30/23 2214 10/01/23 0340 10/01/23 0733 BP: 94/61 106/73 102/71 119/84 BP Location: Left arm Left arm Left arm Patient Position: Lying Lying Sitting Pulse: 109 (!) 132 (!) 125 (!) 128 Resp: (!) 29 23 18 24 Temp: 36.2 C (97.2 F) 36.6 C (97.8 F) 36.2 C (97.2 F) TempSrc: Temporal Temporal Temporal SpO2: 99% 100% 96% 96% Weight: Height: Intake/Output Summary (Last 24 hours) at 10/01/2023 0749 Last data filed at 09/30/2023 1041 Gross per 24 hour Intake 360 ml Output 400 ml Net -40 ml Wt Readings from Last 3 Encounters: 09/30/23 191 lb (86.6 kg) Physical Exam Constitutional: Appearance: Normal appearance. HENT: Right Ear: External ear normal. Left Ear: External ear normal. Nose: Nose normal. Cardiovascular: Rate and Rhythm: Normal rate and regular rhythm. Pulses: Normal pulses. Heart sounds: Normal heart sounds. Pulmonary: Breath sounds: Normal breath sounds. Abdominal: General: Bowel sounds are normal. Palpations: Abdomen is soft. Musculoskeletal: General: Normal range of motion. Left lower leg: Edema (trace) present. Comments: Compression stockings on bilaterally Skin: General: Skin is warm and dry. Coloration: Skin is not jaundiced. Neurological: Mental Status: He is alert and oriented to person, place, and time. Psychiatric: Mood and Affect: Mood normal. Behavior: Behavior normal. Laboratory Tests: Recent Labs 09/29/2315109/30/23 0004 10/01/23 0419 NA 136 137 137 K 4.8 4.5 4.0 CL 106 104 104 CO2 BUN 39* 37* 31* CREATININE 0.86 1.20 1.05 Recent Labs 09/29/2315109/30/23 0004 10/01/23 0419 WBC 12.8* 13.5* 12.2* HGB 10.5* 10.8* 10.6* HCT 33.1* 34.8* 33.6* MCV 96.2 96.1 96.8 PLT 416 482* 451* Lab Results Component Value Date TSH 2.409 09/29/2023 EF BP Date Value Ref Range Status 09/30/2023 38 (A) 55 - 100 % Final 09/25/23 TRANSTHORACIC ECHOCARDIOGRAM (TTE) COMPLETE (CONTRAST/BUBBLE/3D PRN) 09/30/2023 6:33 PM (Final) Interpretation Summary Left Ventricle: Left ventricle is moderately dilated. Normal wall thickness. Severely reduced left ventricular systolic function. The EF by visual approximation is 15-20%. Severe global hypokinesis present. Right Ventricle: Right ventricle is mildly dilated. Mildly reduced systolic function. Aortic Valve: Mild to moderate stenosis of the aortic valve. AV mean gradient is 6 mmHg. AV peak gradient is 11 mmHg. LVOT:AV VTI Index is 0.35. AV area by continuity VTI is 1.1 cm2. Mitral Valve: Moderate (2+) regurgitation. Left Atrium: Left atrium is moderately dilated. Signed by: Frederick Mcclelland MD on 09/30/2023 6:33 PM PCI 09/26/23: Conclusions Mildly elevated LVEDP 18 mmHG Severe calcified left main( ostial 50%, distal 80%) stenosis Severe calcified proximal LAD( 80%) stenosis Small D1 with proximal 70% lesion Ostial LCX SECTIONIZER heavily calcified with no collaterals Severely calcified ostial RCA(90%) lesion, mid(30%) and distal RCA(50%) Successful IVUS guided Intravascular Lithotripsy and NORIS of ostial RCA. Successful IVUS guided Intravascular Lithotripsy and NORIS of LMCA. Successful IVUS guided Intravascular Lithotripsy and NORIS of ostial and proximal LAD. Plan DAPT for at least 1 year and fdc if tolerates. Single antiplatelet lifelong High intensity statin Aggressive risk factor modification Optimal GDMT for ischemic cardiomyopathy Remove right femoral arterial sheath once ACT is less than 160 seconds. Patient to lay supine for 6hrs post sheath removal. Cardiac Tests: ECG: AFib See report Telemetry findings reviewed: AFib 110-130s EF BP Date Value Ref Range Status 09/30/2023 38 (A) 55 - 100 % Final Ashleigh Morrison, PAINT TECHNICIAN - AIRPLANE FIRST OFFICER Date Of Service 10/01/2023 I, Dr. Amos Nichole, saw and evaluated the patient on 10/01/2023. I personally obtained the morrow and critical portions of the history and physical exam. I reviewed the labs, imaging studies, and electronic medical record. I reviewed the MARITZA's documentation, and discussed the patient with the MARITZA. Iagree with the MARITZA's medical decision making and have edited the note to reflect my clinical findings and my assessment and plan. I performed a substantive portion of the care of this patient. * Jenny Hernández OT - 09/30/2023 9:01 AM EDT Images from the original note were not included. OCCUPATIONAL THERAPY [facility] Name/MRN: Eben Cruz ([id number]) Date: 09/30/2023 OT reviewed chart. In OT orders section, listed as have left LE restricted wt bearing but did notclarify the wt bearing. Spoke with RN ( Katie Aguilar) and reviewed paper chart from [facility]. Stated had left hip surgery that was complicated and required wound vac but did not clarify wt bearing or specific hip precautions either. Dr. Donnelly was seeing pt and explained situation and concerns to her. She stated she would consult ortho to clarify situation. OT will continue to follow. Jenny Hernández OTR/L * Cliff Cast Jr., MD - 09/30/2023 8:30 AM EDT [facility] [place] [facility] Cardiology /Electrophysiology Progress Note CC: NSTEMI, s/p PCI HPI / Interval History: Mr. 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 On 09/18/23, he had total left hip replacement surgery at [facility]. He was discharged to SNF. He developed dyspnea and was [facility] with +NSTEMI, negative CTA for PE. Had a LHC at [facility] with severe mCAD. He was transferred to [facility] for PCI with Dr. Nichole. He had successful PCI on 09/25 with [facility]Land NORIS placed to ostial RCA, LMCA, ostial and proximal LAD. His ostial LCX SECTIONIZER is heavily calcified- for medical management. His echocardiogram at [place] showed LVEF of 25%, with lateral wall hypokinetic, mild-mod mitral valve insufficiency (at [place] on 09/23/23. Following PCI, having heart failure and diuresed, started on GDMT. Also afib, amiodarone gtt load then started on po, converted to SR. Currently being treated for +e. Coli UTI x 5 days. This morning, he is feeling better. He complains of low back pain from being in bed. He denies any chest pain, dyspnea at rest, orthopnea, PND, palpitations, dizziness, syncope, bleeding. Right femoral site stable. He states his dyspnea comes and goes, may also be related to brilinta. Vitals, HR stable this morning. Patient had worsening shortness of breath throughout the day yesterday, however today states he is feeling better this morning. Patient was restarted on IV amiodarone drip for 24-hour protocol. Heartrate has improved. Patient denies any chest pain. Assessment/Plan HF NYHA Class [] I [x] II [x] III [] IV NSTEMI/ CAD s/p IVL with NORIS to LMCA, ostial RCA, ostial and proximal LAD on 09/26/23 - Stable. Right femoral site stable without bleeding or hematoma. -Patient currently on triple therapy with aspirin, Brilinta and Eliquis. We will plan to discontinue aspirin at the time of discharge and continue on dual therapy with P2 Y12 and Eliquis - Patient has occasional shortness of breath which may be related to the Brilinta, will consider transition to p.o. Plavix if patient experiences any intolerable shortness of breath - Continue high intensity statin, - Patient is currently awaiting transfer to [facility] in [place] - IV heparin drip as per 24 protocol was initiated yesterday due to ongoing A- fib with rapid ventricular response. Heart rate has improved this morning. - Will increase metoprolol up to 100 mg daily for improved heart rate control - Patient shortness of breath appears to be improved with lower heart rate and may not be tolerating the A-fib with rapid ventricular response 2. HFrEF 25%/ Ischemic cardiomyopathy, stage C, NYHA class II- III acute on chronic HFrEF - Volume status improved. Creatinine did increase up to 1.2 which may indicate mild overdiuresis. Will hold diuretic today and resume p.o. torsemide tomorrow - Continue guideline medical therapy with Toprol-XL, -Will consider SGLT2, valsartan and spironolactone as outpatient as patient currently has low normal blood pressure - Patient administered dose of IV Lasix 40 mg yesterday for ongoing shortness of breath and chest x-ray showing mild bilateral congestion 3. MAT, frequent PVCs, tachycardia/ SVT/ Afib - He was started on amiodarone drip and converted to SR with frequent PVCs, PACs. Will start amiodarone 400 mg bid until he goes home, then decrease to 400 mg daily for 1 month, then decrease to 200 mg daily. TSH normal, LFTs improving. Continue apixaban 5 mg bid for CHADS2-VASC score of 6. -Will continue p.o. amiodarone, continue Eliquis. Will decrease as outpatient 4. UTI, uncomplicated - Received C&S results from [place], +ecoli in urine. Sensitive to cephalosporins. Continue Rocephin for 5 days today (last dose on Saturday). -Ceftriaxone completed on 09/29/2023. No further antibiotics needed 5. Hx CVA - with right ECA stenosis. Continue DAPT and atorvastatin. 6. Hypocalcemia/ Hypokalemia - Calcium Gluconate ordered, K+ replaced. Restart spironolactone. 7. Recent left hip fracture s/p left hip arthoplasty on 09/18/23 - PT/OT eval for rehab. Wound care eval. Advance activity, pain control. LOC, miralax prn. Last BM 09/26/22. I.S., C&DB. He was to go to [facility]. Care Management/TCC involved with this. 8. HLD - LDL 39. Continue atorvastatin 40 mg. 9. HTN - Controlled. Continue Toprol xl 50 mg at hs. Add low dose ARB, and titrate. Hold for SBP < 100,HR < 60 for BB. 10. Goals of Care - Palliative care consulted. Patient's family expressed DNR status. 11. Debility - PT/OT. Will need rehab. Will need rehab, and follow up with [facility] (Dr. Kruse). [id number] Score for Atrial Fibrillation Stroke Risk Risk Factors C CHF Yes, 1 H HTN Yes, 1 A2 Age >= 75 Yes, 2 D DM No, 0 S2 Prior Stroke/TIA Yes, 2 V Vascular Disease No, 0 A Age 65-74 No, 0 Sc Sex Male, 0 [id number] Score 6 Calculator: [id number] risk stratification score for estimation of stroke risk for nonvalvular atrial fibrillation in adults - UpToDate Atrial fibrillation in adults: Use of oral anticoagulants - UpToDate Medications: amiodarone, 400 mg, Oral, BID apixaban, 5 mg, Oral, BID vitamin C, 500 mg, Oral, Daily aspirin, 81 mg, Oral, Daily atorvastatin, 40 mg, Oral, Daily metoprolol succinate XL, 50 mg, Oral, Nightly pantoprazole, 40 mg, Oral, qAM AC polyethylene glycol (PEG) 3350, 17 g, Oral, Daily [Held by provider] spironolactone, 12.5 mg, Oral, Daily ticagrelor, 90 mg, Oral, BID torsemide, 10 mg, Oral, Daily [Held by provider] valsartan, 40 mg, Oral, Daily Infusion Medications: amiodarone, 0.5 mg/min, Last Rate: 0.5 mg/min (09/29/23 2221) Physical Examination: Vitals: 09/29/23 2343 09/30/23 0000 09/30/23 0233 09/30/23 0728 BP: 113/71 94/65 116/64 BP Location: Left arm Left arm Patient Position: Lying Sitting Pulse: 120 (!) 122 (!) 121 (!) 123 Resp: 24 (!) 35 23 (!) 30 Temp: 36.4 C (97.6 F) 36.3 C (97.3 F) 36.4 C (97.5 F) TempSrc: Temporal Temporal Temporal SpO2: 99% 100% 100% 97% Weight: 191 lb (86.6 kg) Intake/Output Summary (Last 24 hours) at 09/30/2023 0830 Last data filed at 09/30/2023 0820 Gross per 24 hour Intake 1225 ml Output 1750 ml Net -525 ml Wt Readings from Last 3 Encounters: 09/30/23 191 lb (86.6 kg) Physical Exam Vitals reviewed. Constitutional: General: He is not in acute distress. Appearance: Normal appearance. He is obese. He is not diaphoretic. Interventions: Nasal cannula in place. HENT: Head: Normocephalic. Left Ear: External ear normal. Mouth/Throat: Pharynx: No oropharyngeal exudate. Eyes: General: Right eye: No discharge. Left eye: No discharge. Extraocular Movements: Extraocular movements intact. Neck: Vascular: No JVD (base of neck). Cardiovascular: Rate and Rhythm: Normal rate and regular rhythm. Frequent Extrasystoles are present. Pulses: Normal pulses. Heart sounds: Normal heart sounds. No murmur heard. No gallop. Comments: Right femoral site without bleeding. Dressing dry and intact. Site is soft. Edema in left leg/ left hip > R. Compression stockings on. Pulmonary: Effort: Pulmonary effort is normal. No respiratory distress. Breath sounds: Rales (bases) present. Abdominal: General: Bowel sounds are normal. There is no distension. Palpations: Abdomen is soft. Tenderness: There is no abdominal tenderness. Genitourinary: Comments: Voids yellow urine. Musculoskeletal: General: Normal range of motion. Cervical back: Normal range of motion and neck supple. Right lower leg: No edema. Left lower le+ Edema present. Comments: S/P left hip arthroplasty. Weakness. Skin: General: Skin is warm and dry. Capillary Refill: Capillary refill takes less than 2 seconds. Findings: Bruising and ecchymosis present. Comments: Left hip incision with sutures intact, there is excoriation lateral to incision. No drainage, no redness. Bruising in left flank and back. Neurological: General: No focal deficit present. Mental Status: He is alert and oriented to person, place, and time. Cranial Nerves: No cranial nerve deficit. Psychiatric: Mood and Affect: Mood normal. Laboratory Tests: Recent Labs 09/27/23200209/29/2315109/30/23 0004 NA 138 136 137 K 3.4* 4.8 4.5 CL 104 106 104 CO2 BUN 47* 39* 37* CREATININE 1.04 0.86 1.20 Recent Labs 09/28/23 0055 09/29/232 09/30/23 0004 WBC 13.2* 12.8* 13.5* HGB 9.7* 10.5* 10.8* HCT 30.7* 33.1* 34.8* MCV 95.9 96.2 96.1 PLT 398 416 482* No results for input(s): CKTOTAL, CKMB, CKMBINDEX, TROPONINI in the last 72 hours. No results for input(s): BNP in the last 72 hours. No results for input(s): TRIG, HDL, LDLCALC, CHOL in the last 72 hours. No results found for: LDLCHOLESTER Lab Results Component Value Date TSH 2.409 09/29/2023 No results found for: EFBP, PLVEF, LVEFPHYS, LVEF2D, EF No results found for this or any previous visit. Other reports reviewed: PCI 09/26/23: Conclusions Mildly elevated LVEDP 18 mmHG Severe calcified left main( ostial 50%, distal 80%) stenosis Severe calcified proximal LAD( 80%) stenosis Small D1 with proximal 70% lesion Ostial LCX SECTIONIZER heavily calcified with no collaterals Severely calcified ostial RCA(90%) lesion, mid(30%) and distal RCA(50%) Successful IVUS guided Intravascular Lithotripsy and NORIS of ostial RCA. Successful IVUS guided Intravascular Lithotripsy and NORIS of LMCA. Successful IVUS guided Intravascular Lithotripsy and NORIS of ostial and proximal LAD. Plan DAPT for at least 1 year and ocean transportation intermediary if tolerates. Single antiplatelet lifelong High intensity statin Aggressive risk factor modification Optimal GDMT for ischemic cardiomyopathy Remove right femoral arterial sheath once ACT is less than 160 seconds. Patient to lay supine for 6hrs post sheath removal. Cardiac Tests: ECG: IMPRESSION: Sinus rhythm Ventricular trigeminy Nonspecific repol abnormality, lateral leads Minimal ST elevation, anterior leads Telemetry findings reviewed: SR 90 with frequent PVCs, PACs No results found for: EFBP, PLVEF, LVEFPHYS, LVEF2D, EF Cliff Cast Jr., MD Date Of Service 09/30/2023 Associated attestation - Sue Emerson MD - 09/30/2023 6:21 PM EDT I, Dr. Sue Emerson, saw and evaluated the patient 09/30/23. I personally obtained the morrow and critical portions of the history and physical exam. I reviewed the chart and discussed the patient with the fellow. I agree with the fellow's medical decision making. -ongoing atrial flutter/fib with RVR even on amiodarone infusion. Continue oral amiodarone, increase beta-melissa dose to Toprol XL 75 mg nightly, continue apixaban -dyspnea likely due to CHF still volume overloaded. Received IV lasix yesterday, less dyspneic today, continue torsemide. Has been off diovan for a few days. If BP tolerates higher dose of beta-melissa, will consider restarting very low dose diovan -recent PCI, no angina. On aspirin, brilinta (may be contributing to dyspnea, will consider switching to plavix), apixaban, beta-melissa, high dose statin * Mark Stevens RN - 09/29/2023 7:00 PM EDT Pt care team notified of pt HR still sustained at 120's, RR remains >25, SpO2 WNL at this time, remains on oxygen 3L/min NC, SBP <90. Pt denies dizziness/lightheadedness, denies CP, denies GERDlike s/s, at this time pt denies being SOB despite being conversationally dyspneic. No new orders re ceived. 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 * Mark Stevens RN - 09/29/2023 2:40 PM EDT Pt care team notified again at this time about pt HR still elevated and now sustained between 130 and 140 BPM. Pt RR now 30-40. Pt having impending doom, keeps repeating I am not going to make it, and I can't breathe. * Mark Stevens RN - 09/29/2023 2:00 PM EDT Pt care team to bedside. Pt still with HR sustained 120-130's RR elevated, still with O2. New orders received for IV lopressor and IV lasix. Given at this time per MD order. * Mark Stevens RN - 09/29/2023 12:15 PM EDT Pt care team is notified at this time of pt HR sustained now at 110-120, pt SpO2 continues to drop,pt now requires 3L/min O2 per NC to maintain SpO2 goals. Pt RR now 20-30. EKG obtained this AM. Will await additional orders. * Cliff Cast Jr., MD - 09/29/2023 8:22 AM EDT [facility] [place] [facility] [facility] Progress Note CC: NSTEMI, s/p PCI HPI / Interval History: Mr. 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 On 09/18/23, he had total left hip replacement surgery at [facility]. He was discharged to SNF. He developed dyspnea and was transferredto [facility] with +NSTEMI, negative CTA for PE. Had a LHC at [facility] with severe mCAD. He was transferred to [facility] for PCI with Dr. Nichole. He had successful PCI on 09/25 with IVLand NORIS placed to ostial RCA, LMCA, ostial and proximal LAD. His ostial LCX SECTIONIZER is heavily calcified- for medical management. His echocardiogram at [place] showed LVEF of 25%, with lateral wall hypokinetic, mild-mod mitral valve insufficiency (at [place] on 09/23/23. Following PCI, having heart failure and diuresed, started on GDMT. Also afib, amiodarone gtt load then started on po, converted to SR. Currently being treated for +e. Coli UTI x 5 days. This morning, he is feeling better. He complains of low back pain from being in bed. He denies any chest pain, dyspnea at rest, orthopnea, PND, palpitations, dizziness, syncope, bleeding. Right femoral site stable. He states his dyspnea comes and goes, may also be related to brilinta. Vitals, HR stable this morning. Today, patient states he feels the same as prior days. Has some mild shortness of breath throughoutthe night but states keeps him awake occasionally. Patient is currently sitting up in bed and breathing comfortably. States shortness of breath is random, however is able to tolerate at this time. Patient able to tolerate p.o. without any issues. Assessment/Plan HF NYHA Class [] I [x] II [x] III [] IV NSTEMI/ CAD s/p IVL with NORIS to LMCA, ostial RCA, ostial and proximal LAD on 09/26/23 - Stable. Right femoral site stable without bleeding or hematoma. -Patient currently on triple therapy with aspirin, Brilinta and Eliquis. We will plan to discontinue aspirin at the time of discharge and continue on dual therapy with P2 Y12 and Eliquis - Patient has occasional shortness of breath which may be related to the Brilinta, will consider transition to p.o. Plavix if patient experiences any intolerable shortness of breath - Continue high intensity statin, Toprol-XL, PPI - Patient is currently awaiting transfer to [facility] rehab hospital in [place] 2. HFrEF 25%/ Ischemic cardiomyopathy, stage C, NYHA class II- III acute on chronic HFrEF - Volume status improved. No orthopnea, JVD improved at base of neck. -Patient has mild crackles at the bases, however appears euvolemic. Patient has mild 1+ pitting edema to left lower extremity which he says is chronic after his left leg surgery. Right lower extremity has no edema. - Continue guideline medical therapy with Toprol-XL, -Will consider SGLT2, valsartan and spironolactone as outpatient as patient currently has low normal blood pressure - Torsemide 10 mg daily initiated today 3. MAT, frequent PVCs, tachycardia/ SVT/ Afib - He was started on amiodarone drip and converted to SR with frequent PVCs, PACs. Will start amiodarone 400 mg bid until he goes home, then decrease to 400 mg daily for 1 month, then decrease to 200 mg daily. TSH normal, LFTs improving. Continue apixaban 5 mg bid for CHADS2-VASC score of 6. -Will continue p.o. amiodarone, continue Eliquis. Will decrease as outpatient 4. UTI, uncomplicated - Received C&S results from [place], +ecoli in urine. Sensitive to cephalosporins. Continue Rocephin for 5 days today (last dose on Sunday). -Ceftriaxone completed today. No further antibiotics needed 5. Hx CVA - with right ECA stenosis. Continue DAPT and atorvastatin. 6. Hypocalcemia/ Hypokalemia - Calcium Gluconate ordered, K+ replaced. Restart spironolactone. 7. Recent left hip fracture s/p left hip arthoplasty on 09/18/23 - PT/OT eval for rehab. Wound care eval. Advance activity, pain control. LOC, miralax prn. Last BM 09/26/22. I.S., C&DB. He was to go to [facility]. Care Management/TCC involved with this. 8. HLD - LDL 39. Continue atorvastatin 40 mg. 9. HTN - Controlled. Continue Toprol xl 50 mg at hs. Add low dose ARB, and titrate. Hold for SBP < 100,HR < 60 for BB. 10. Goals of Care - Palliative care consulted. Patient's family expressed DNR status. 11. Debility - PT/OT. Will need rehab. Will need rehab, and follow up with [facility] (Dr. Kruse). [id number] Score for Atrial Fibrillation Stroke Risk Risk Factors C CHF Yes, 1 H HTN Yes, 1 A2 Age >= 75 Yes, 2 D DM No, 0 S2 Prior Stroke/TIA Yes, 2 V Vascular Disease No, 0 A Age 65-74 No, 0 Sc Sex Male, 0 [id number] Score 6 Calculator: [id number] risk stratification score for estimation of stroke risk for nonvalvular atrial fibrillation in adults - UpToDate Atrial fibrillation in adults: Use of oral anticoagulants - UpToDate Medications: amiodarone, 400 mg, Oral, BID apixaban, 5 mg, Oral, BID vitamin C, 500 mg, Oral, Daily aspirin, 81 mg, Oral, Daily atorvastatin, 40 mg, Oral, Daily cefTRIAXone, 1,000 mg, IntraVENous, q24h metoprolol succinate XL, 50 mg, Oral, Nightly pantoprazole, 40 mg, Oral, qAM AC polyethylene glycol (PEG) 3350, 17 g, Oral, Daily [Held by provider] spironolactone, 12.5 mg, Oral, Daily ticagrelor, 90 mg, Oral, BID torsemide, 10 mg, Oral, Daily [Held by provider] valsartan, 40 mg, Oral, Daily Infusion Medications: Physical Examination: Vitals: 09/28/23 2306 09/29/23 0311 09/29/23 0600 09/29/23 0738 BP: 106/70 112/77 109/72 BP Location: Right arm Right arm Right arm Patient Position: Lying Lying Lying Pulse: 99 99 98 Resp: Temp: 36.6 C (97.9 F) 36.1 C (97 F) (!) 35.7 C (96.2 F) TempSrc: Temporal Temporal Temporal SpO2: 96% 96% 99% Weight: 198 lb 13.7 oz (90.2 kg) Intake/Output Summary (Last 24 hours) at 09/29/2023 0822 Last data filed at 09/29/2023 0200 Gross per 24 hour Intake 350 ml Output 450 ml Net -100 ml Wt Readings from Last 3 Encounters: 09/29/23 198 lb 13.7 oz (90.2 kg) Physical Exam Vitals reviewed. Constitutional: General: He is not in acute distress. Appearance: Normal appearance. He is obese. He is not diaphoretic. Interventions: Nasal cannula in place. HENT: Head: Normocephalic. Left Ear: External ear normal. Mouth/Throat: Pharynx: No oropharyngeal exudate. Eyes: General: Right eye: No discharge. Left eye: No discharge. Extraocular Movements: Extraocular movements intact. Neck: Vascular: No JVD (base of neck). Cardiovascular: Rate and Rhythm: Normal rate and regular rhythm. Frequent Extrasystoles are present. Pulses: Normal pulses. Heart sounds: Normal heart sounds. No murmur heard. No gallop. Comments: Right femoral site without bleeding. Dressing dry and intact. Site is soft. Edema in left leg/ left hip > R. Compression stockings on. Pulmonary: Effort: Pulmonary effort is normal. No respiratory distress. Breath sounds: Rales (bases) present. Abdominal: General: Bowel sounds are normal. There is no distension. Palpations: Abdomen is soft. Tenderness: There is no abdominal tenderness. Genitourinary: Comments: Voids yellow urine. Musculoskeletal: General: Normal range of motion. Cervical back: Normal range of motion and neck supple. Right lower leg: No edema. Left lower le+ Edema present. Comments: S/P left hip arthroplasty. Weakness. Skin: General: Skin is warm and dry. Capillary Refill: Capillary refill takes less than 2 seconds. Findings: Bruising and ecchymosis present. Comments: Left hip incision with sutures intact, there is excoriation lateral to incision. No drainage, no redness. Bruising in left flank and back. Neurological: General: No focal deficit present. Mental Status: He is alert and oriented to person, place, and time. Cranial Nerves: No cranial nerve deficit. Psychiatric: Mood and Affect: Mood normal. Laboratory Tests: Recent Labs 09/27/23 0138 09/27/23200209/29/23 0152 NA 138 138 136 K 4.3 3.4* 4.8 CL 105 104 106 CO2 22 26 24 BUN 40* 47* 39* CREATININE 0.91 1.04 0.86 Recent Labs 09/26/23 1822 09/27/23 0138 09/28/23 0055 09/29/23 0152 WBC -- 12.9* 13.2* 12.8* HGB 10.8 10.2* 9.7* 10.5* HCT -- 32.4* 30.7* 33.1* MCV -- 96.1 95.9 96.2 PLT -- 355 398 416 No results for input(s): CKTOTAL, CKMB, CKMBINDEX, TROPONINI in the last 72 hours. No results for input(s): BNP in the last 72 hours. No results for input(s): TRIG, HDL, LDLCALC, CHOL in the last 72 hours. No results found for: LDLCHOLESTER No results found for: TSH No results found for: EFBP, PLVEF, LVEFPHYS, LVEF2D, EF No results found for this or any previous visit. Other reports reviewed: PCI 09/26/23: Conclusions Mildly elevated LVEDP 18 mmHG Severe calcified left main( ostial 50%, distal 80%) stenosis Severe calcified proximal LAD( 80%) stenosis Small D1 with proximal 70% lesion Ostial LCX SECTIONIZER heavily calcified with no collaterals Severely calcified ostial RCA(90%) lesion, mid(30%) and distal RCA(50%) Successful IVUS guided Intravascular Lithotripsy and NORIS of ostial RCA. Successful IVUS guided Intravascular Lithotripsy and NORIS of LMCA. Successful IVUS guided Intravascular Lithotripsy and NORIS of ostial and proximal LAD. Plan DAPT for at least 1 year and ocean transportation intermediary if tolerates. Single antiplatelet lifelong High intensity statin Aggressive risk factor modification Optimal GDMT for ischemic cardiomyopathy Remove right femoral arterial sheath once ACT is less than 160 seconds. Patient to lay supine for 6hrs post sheath removal. Cardiac Tests: ECG: IMPRESSION: Sinus rhythm Ventricular trigeminy Nonspecific repol abnormality, lateral leads Minimal ST elevation, anterior leads Telemetry findings reviewed: SR 90 with frequent PVCs, PACs No results found for: EFBP, PLVEF, LVEFPHYS, LVEF2D, EF Cliff Cast Jr., MD Date Of Service 09/29/2023 Associated attestation - Sue Emerson MD - 09/29/2023 2:07 PM EDT I, Dr. Sue Emerson, saw and evaluated the patient 09/29/23. I personally obtained the morrow and critical portions of the history and physical exam. I reviewed the chart and discussed the patient with the fellow. I agree with the fellow's medical decision making. - ongoing dyspnea due to pAFIB/flutter with RVR and decompensated CHF. Off amiodarone drip 09/27,current on oral amiodarone and Toprol XL. - IV lasix now with close monitoring of urine outputs, daily weight (weight today accurate), renal function -IV metoprolol as needed for rate control for now (continue oral amio and metoprolol). Would consider switching back to amiodarone in fusion if RVR persists - continue DAPT, aspirin, apixaban, high dose statin, PPI * Brielle Metzger, PT - 09/28/2023 10:59 AM EDT Images from the original note were not included. PHYSICAL THERAPY [facility] Treatment Note Name/MRN: Eben Cruz ([id number]) Date of : 1945 Age: 78 y.o. Room/Bed: 1C-130/1C-130 A Discharge Recommendation: Nursing Home Facility Equipment Needed: No Other: He has a walker and a cane at home to use. Prior Level of Function ADL Assistance: Independent Ambulation Assistance: Device(s) used: cane Transfer Assistance: Independent Assessment Eben was awake in room, agreeable to get up to the chair. His nurse needed a weight for him, so he was transferred with mod assist of 2 to the scale, then off the scale and several steps to his bedside chair. He is having left hip pain (recent left hip replacement) and was given ice for comfort. Hislegs were extended and a pillow placed under his left leg lengthwise for comfort. He is having difficulty moving his left leg, due to pain, but is doing what he can. He was made comfortable in the chair with blankets and pillows, and left in the chair with his call light in reach. He is more alert today than yesterday. Recommend inpatient rehab upon discharge, to regain his mobility and strength a nd independence. Subjective Patient is having left hip pain, but wants to get to the chair. Transfers are difficult for him, requiring mod assist of 1 or 2 people. Recommend 2 person assist. Pain: RN managing pain. Medical Precautions: No active isolations Proper PPE donned/doffed in accordance with facility standards. Fall Risk: Davila Fall Risk Score: 70 (High Risk) Precautions/Restrictions: Left LE Weight Bearing: Lines/Drains/Airways: IV, O2, tele lines Left hip pain Overall Cognitive Status: His answers to questions is delayed, he may not be hearing what is being asked of him. Overall Orientation Status: Oriented to Time, Oriented to Situation, and Oriented to Person Family/Caregiver Present: none Objective Ambulation Ambulation 1 Assistive device(s) used: none and arm in arm with 2 person assist Assist level: Mod Assist, x2 Person Assist Distance (ft): 4', then 6' Quality of gait: antalgic, step to pattern, B foot clearance, uneven step length, narrow MARISA, slow evan Transfers/Mobility Sit to stand: Max Assist, x2 Person Assist Stand to sit: Mod Assist, x2 Person Assist He did well with backing up to the chair and feeling it with both legs, reaching for the arms of the chair. Device(s) used: arm in arm of 2 or having him hold onto therapist's arms. Exercises Bed Mobility Supine to sit: Max Assist, x2 Person Assist Sit to supine: Max Assist, x2 Person Assist Balance: poor Posture: fair Sitting - Static: Min Assist Sitting - Dynamic: Mod Assist Standing - Static: Mod Assist Standing - Dynamic: Max Assist, x2 Person Assist Plan Continue acute PT per plan of care. Safety/Education Safety Safety Devices in place: call light within reach, left in chair, gait belt, patient at risk for falls, and nurse notified Restraints: No Education Education Given To: patient Education Provided: PT Role, PT Goals, Gait Training, Precautions, Transfer Training, and DischargeRecommendations Education Method: Verbal and Demonstration Barriers to Learning: Cognition, Hearing Education Outcome: Continued Education Needed Outcome Measures AM-PAC AM-PAC Inpatient Mobility Raw Score (No Stairs) : 9 JH-HLM JH-HLM Score: Static standing (1 or more minutes) Goals Patient Stated Goal: To feel better. Encounter Problems Encounter Problems (Active) Mobility Patient will ambulate 50 feet with mod assist and least restrictive device in order to improve safety and independence with mobility. (Progressing) Start: 09/27/23 Expected End: 10/18/23 Patient will ascend and descend 2 stairs with one railing and min assist in order to safely negotiate home. (Not Addressed) Start: 09/27/23 Expected End: 10/18/23 Transfers Patient will perform bed mobility with min assist in order to improve independence and prepare for out of bed mobility. (Progressing) Start: 09/27/23 Expected End: 10/18/23 Patient will complete functional transfer with least restrictive device with mod assist in order toprepare for ambulation. (Progressing) Start: 09/27/23 Expected End: 10/18/23 Therapy Time Individual Co-treatment Time In 1025 Time Out 1055 Minutes 30 Timed Code Treatment Minutes: 30 Minutes Brielle Metzger PT * Amos Nichole MD - 09/28/2023 8:52 AM EDT [facility] [place] [facility] /Electrophysiology Progress Note CC: NSTEMI, s/p PCI HPI / Interval History: Mr. 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 On 09/18/23, he had total left hip replacement surgery at [facility]. He was discharged to SNF. He developed dyspnea and was transferredto [facility] with +NSTEMI, negative CTA for PE. Had a LHC at [facility] with severe mCAD. He was transferred to [facility] for PCI with Dr. Nichole. He had successful PCI on 09/25 with IVLand NORIS placed to ostial RCA, LMCA, ostial and proximal LAD. His ostial LCX SECTIONIZER is heavily calcified- for medical management. His echocardiogram at [place] showed LVEF of 25%, with lateral wall hypokinetic, mild-mod mitral valve insufficiency (at [place] on 09/23/23. Following PCI, having heart failure and diuresed, started on GDMT. Also afib, amiodarone gtt load then started on po, converted to SR. Currently being treated for +e. Coli UTI x 5 days. This morning, he is feeling better. He complains of low back pain from being in bed. He denies any chest pain, dyspnea at rest, orthopnea, PND, palpitations, dizziness, syncope, bleeding. Right femoral site stable. He states his dyspnea comes and goes, may also be related to brilinta. Vitals, HR stable this morning. Up to chair. Back in SR. C/o some dyspnea but appears to be breathing comfortably. Denies CP. Assessment/Plan HF NYHA Class [] I [x] II [x] III [] IV NSTEMI/ CAD s/p IVL with NORIS to LMCA, ostial RCA, ostial and proximal LAD on 09/26/23 - Stable. Right femoral site stable without bleeding or hematoma. Must continue DAPT without interruption for at least 1 year. He is currently on aspirin, apixaban and brilinta. Will stop aspirin at discharge. Continue apixaban and brilinta. Will consider changing to clopidogrel if he continues to have breathlessness. Continue atorvastatin, Toprol xl, PPI. Patient is not a candidate yet for cardiac rehab. He will need rehab from hip surgery first. On triple antithrombotic regimen. Discontinue ASA on discharge. Dyspnea may be related to Brilinta. Ideally change Brilinta to Plavix after 1 month. Sooner if dyspnea persists. Agree w statin. Reduce toprol dose. Valsartan and aldactone as BP permits. TCC working on placement in [facility] in [place]. 2. HFrEF 25%/ Ischemic cardiomyopathy, stage C, NYHA class II- III acute on chronic HFrEF - Volume status improved. No orthopnea, JVD improved at base of neck. Some crackles in bases. I/O nearly - 2 liters since admission. Weight not done. I/O not entirely accurate as he is also incontinent and urine not measurable. Repeat chest x-ray, likely start oral lasix. Continue GDMT- toprol xl, valsartan, spironolactone. Consider adding SGLT2i in near future or as outpatient. Renal status stable. Continue strict I/O, daily weights, fluid and sodium restriction. Repeat echo in 3 months to assess EF. HF meds as above as BP permits. 3. MAT, frequent PVCs, tachycardia/ SVT/ Afib - He was started on amiodarone drip and converted to SR with frequent PVCs, PACs. Will start amiodarone 400 mg bid until he goes home, then decrease to 400 mg daily for 1 month, then decrease to 200 mg daily. TSH normal, LFTs improving. Continue apixaban 5 mg bid for CHADS2-VASC score of 6. PAF. On Amio 400 BID. On discharge, reduce to 400 daily. After 1 month reduce further to 200 mg daily. On Apixaban. 4. UTI, uncomplicated - Received C&S results from [place], +ecoli in urine. Sensitive to cephalosporins. Continue Rocephin for 5 days today (last dose on Sunday). Complete Abx for UTI. 5. Hx CVA - with right ECA stenosis. Continue DAPT and atorvastatin. 6. Hypocalcemia/ Hypokalemia - Calcium Gluconate ordered, K+ replaced. Restart spironolactone. 7. Recent left hip fracture s/p left hip arthoplasty on 09/18/23 - PT/OT eval for rehab. Wound care eval. Advance activity, pain control. LOC, miralax prn. Last BM 09/26/22. I.S., C&DB. He was to go to [facility]. Care Management/TCC involved with this. 8. HLD - LDL 39. Continue atorvastatin 40 mg. 9. HTN - Controlled. Continue Toprol xl 50 mg at hs. Add low dose ARB, and titrate. Hold for SBP < 100,HR < 60 for BB. 10. Goals of Care - Palliative care consulted. Patient's family expressed DNR status. 11. Debility - PT/OT. Will need rehab. Discussed in detail with Dr. Nichole. Will need rehab, and follow up with [facility] (Dr. Kruse). [id number] Score for Atrial Fibrillation Stroke Risk Risk Factors C CHF Yes, 1 H HTN Yes, 1 A2 Age >= 75 Yes, 2 D DM No, 0 S2 Prior Stroke/TIA Yes, 2 V Vascular Disease No, 0 A Age 65-74 No, 0 Sc Sex Male, 0 [id number] Score 6 Calculator: [id number] risk stratification score for estimation of stroke risk for nonvalvular atrial fibrillation in adults - UpToDate Atrial fibrillation in adults: Use of oral anticoagulants - UpToDate Medications: amiodarone, 200 mg, Oral, BID apixaban, 5 mg, Oral, BID vitamin C, 500 mg, Oral, Daily aspirin, 81 mg, Oral, Daily atorvastatin, 40 mg, Oral, Daily calcium gluconate, 2,000 mg, IntraVENous, Once cefTRIAXone, 1,000 mg, IntraVENous, q24h furosemide, 40 mg, IntraVENous, Daily metoprolol succinate XL, 50 mg, Oral, BID pantoprazole, 40 mg, Oral, qAM AC potassium chloride, 40 mEq, Oral, Once [Held by provider] spironolactone, 12.5 mg, Oral, Daily ticagrelor, 90 mg, Oral, BID [Held by provider] valsartan, 40 mg, Oral, Daily Infusion Medications: Physical Examination: Vitals: 09/27/23199909/27/23 2100 09/28/23 0357 09/28/23 0753 BP: 95/53 106/51 129/70 97/63 BP Location: Right arm Patient Position: Lying Pulse: 99 100 98 92 Resp: (!) 30 (!) 28 22 Temp: 36.2 C (97.1 F) (!) 35.9 C (96.6 F) TempSrc: Temporal Tympanic SpO2: 98% 98% 100% 97% Weight: Intake/Output Summary (Last 24 hours) at 09/28/2023 0853 Last data filed at 09/28/2023 0357 Gross per 24 hour Intake 11 ml Output 770 ml Net -759 ml Wt Readings from Last 3 Encounters: 09/25/23 206 lb 12.8 oz (93.8 kg) Physical Exam Vitals reviewed. Constitutional: General: He is not in acute distress. Appearance: Normal appearance. He is obese. He is ill-appearing. He is not diaphoretic. Interventions: Nasal cannula in place. HENT: Head: Normocephalic. Left Ear: External ear normal. Mouth/Throat: Pharynx: No oropharyngeal exudate. Eyes: General: Right eye: No discharge. Left eye: No discharge. Extraocular Movements: Extraocular movements intact. Neck: Vascular: No JVD (base of neck). Cardiovascular: Rate and Rhythm: Normal rate and regular rhythm. Frequent Extrasystoles are present. Pulses: Normal pulses. Heart sounds: Normal heart sounds. No murmur heard. No gallop. Comments: Right femoral site without bleeding. Dressing dry and intact. Site is soft. Edema in left leg/ left hip > R. Compression stockings on. Pulmonary: Effort: Pulmonary effort is normal. No respiratory distress. Breath sounds: Rales (bases) present. Abdominal: General: Bowel sounds are normal. There is no distension. Palpations: Abdomen is soft. Tenderness: There is no abdominal tenderness. Genitourinary: Comments: Voids yellow urine. Musculoskeletal: General: Normal range of motion. Cervical back: Normal range of motion and neck supple. Right lower le+ Edema present. Left lower le+ Edema present. Comments: S/P left hip arthroplasty. Weakness. Skin: General: Skin is warm and dry. Capillary Refill: Capillary refill takes less than 2 seconds. Findings: Bruising and ecchymosis present. Comments: Left hip incision with sutures intact, there is excoriation lateral to incision. No drainage, no redness. Bruising in left flank and back. Neurological: General: No focal deficit present. Mental Status: He is alert and oriented to person, place, and time. Cranial Nerves: No cranial nerve deficit. Psychiatric: Mood and Affect: Mood normal. Laboratory Tests: Recent Labs 09/26/23 0346 09/27/23 01309/27/232002 NA 135 138 138 K 4.4 4.3 3.4* CL 105 105 104 CO2 23 22 26 BUN 39* 40* 47* CREATININE 0.86 0.91 1.04 Recent Labs 09/25/23 1513 09/26/23 0346 09/26/23 1822 09/27/23 0138 09/28/23 0055 WBC 13.9* 14.9* -- 12.9* 13.2* HGB 9.8* 9.8* 10.8 10.2* 9.7* HCT 30.4* 30.6* -- 32.4* 30.7* MCV 94.7 93.6 -- 96.1 95.9 PLT 353 343 -- 355 398 Recent Labs 09/25/23 1513 TROPONINI 25.400* No results for input(s): BNP in the last 72 hours. No results for input(s): TRIG, HDL, LDLCALC, CHOL in the last 72 hours. No results found for: LDLCHOLESTER No results found for: TSH No results found for: EFBP, PLVEF, LVEFPHYS, LVEF2D, EF No results found for this or any previous visit. Other reports reviewed: PCI 09/26/23: Conclusions Mildly elevated LVEDP 18 mmHG Severe calcified left main( ostial 50%, distal 80%) stenosis Severe calcified proximal LAD( 80%) stenosis Small D1 with proximal 70% lesion Ostial LCX SECTIONIZER heavily calcified with no collaterals Severely calcified ostial RCA(90%) lesion, mid(30%) and distal RCA(50%) Successful IVUS guided Intravascular Lithotripsy and NORIS of ostial RCA. Successful IVUS guided Intravascular Lithotripsy and NORIS of LMCA. Successful IVUS guided Intravascular Lithotripsy and NORIS of ostial and proximal LAD. Plan DAPT for at least 1 year and fdc if tolerates. Single antiplatelet lifelong High intensity statin Aggressive risk factor modification Optimal GDMT for ischemic cardiomyopathy Remove right femoral arterial sheath once ACT is less than 160 seconds. Patient to lay supine for 6hrs post sheath removal. Cardiac Tests: ECG: IMPRESSION: Sinus rhythm Ventricular trigeminy Nonspecific repol abnormality, lateral leads Minimal ST elevation, anterior leads Telemetry findings reviewed: SR 90 with frequent PVCs, PACs No results found for: EFBP, PLVEF, LVEFPHYS, LVEF2D, EF Elisa Goldstein, PAINT TECHNICIAN - [employer] FIRST OFF[employer] Date Of Service 09/28/2023 I, Dr. Amos Nichole, saw and evaluated the patient on 09/28/2023. I personally obtained the morrow and critical portions of the history and physical exam. I reviewed the labs, imaging studies, and electronic medical record. I reviewed the MARITZA's documentation, and discussed the patient with the MARITZA. Iagree with the MARITZA's medical decision making and have edited the note to reflect my clinical findings and my assessment and plan. I performed a substantive portion of the care of this patient. * Travis Crawford MD - 09/27/2023 7:34 PM EDT Checked on the patient at around 7:30pm Asymptomatic, reports his breathing is significantly better with lasix and he is continuing to makegood urine. Negative 1.4 L so far today in chart. Normal renal function. Tachycardia with HR 100-105, BP 115/44. On 2 L NC saturating 98%. On exam JVD ~6-7cm. No rales appreciated on exam. Continues to have good urine output. Given low diastolic Bps will hold additional dose of lasix for tonight and reevaluate in the morning. * Brielle Metzger, PT - 09/27/2023 3:10 PM EDT Images from the original note were not included. PHYSICAL THERAPY [facility] Initial Evaluation Name/MRN: Eben Cruz ([id number]) Evaluation Date: 09/27/2023 Date of : 1945 Admission Date: 09/25/2023 12:49 PM Age: 78 y.o. Room/Bed: 1C-130/1C-130 A Discharge Recommendation: Nursing Home Facility Equipment Needed: No Other: He has a walker and a cane at home to use. Assessment IMPRESSION: Eben Cruz was admitted on 09/25/23 with NSTEMI. He has had PCI with 3 stents and lithotripsy. He came from [facility] where he had left hip surgery. 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 He was negative for PE on his CTA. He lives alone, not yet safe to be up without assist. He was taken to his right side to get to the chair. Before finishing this note, he was experiencing dizziness and ?? Chest pain, so this therapist got him back tobed. Cardiology was at the bedside checking on him. He is currently requiring max assist for transfers, mod assist for bed mobility, and min assist for rolling side to side. Mod assist to scoot forward in the chair. He was given ice for comfort for his hip. He is on O2 via NC. No official WB statusin chart, but per notes from prior to admission he ambulated 94 ' with a FWW, so at least partial weight bearing is assumed. He did state that he felt better once he was back in the bed. Currently atSNF level. Diagnosis: NSTEMI in a patient who recently (09/18/23) had left hip total replacement on 09/18/23 in [place]. Prognosis: good Performance Deficits /Impairments: Increased Pain, Decreased Functional Mobility, Decreased Strength, Decreased Safety Awareness, Decreased Endurance, Decreased Balance, Decreased High Level IADLs, Decreased Fine Motor Control, Decreased Coordination, and Decreased Posture Decision Making: Medium Complexity Subjective NSTEMI in patient who had a complex total hip replacement on 09/18/23 at [facility]. Nurse was okay with OOB to chair. He became dizzy, complained of chest pain, and this therapist assisted him back to bed. (10 min) Pain: RN managing pain. Past Medical History: Past Medical History: Diagnosis Date Adverse effect of anesthesia Arthritis Coronary artery disease Delayed emergence from general anesthesia Hypertension Stroke ([facility]) Past Surgical History: Past Surgical History: Procedure Laterality Date CARDIAC CATHETERIZATION N/A 09/26/2023 Performed by Amos Nichole MD at [facility] Cardiac Cath/EP Lab CARDIAC CATHETERIZATION N/A 09/26/2023 Performed by Amos Nichole MD at [facility] Cardiac Cath/EP Lab HERNIA REPAIR INVASIVE VASCULAR PROCEDURE N/A 09/26/2023 Performed by Amos Nichole MD at [facility] Cardiac Cath/EP Lab JOINT REPLACEMENT both hip replacements, L shoulder Admission Diagnosis: Patient Active Problem List Diagnosis Date Noted 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 Fall Risk: Davila Fall Risk Score: 60 (High Risk) Precautions/Restrictions: Left LE Weight Bearing: Lines/Drains/Airways: IV, O2, tele lines Left hip pain Family/Caregiver Present: child(adam) Overall Cognitive Status: WFL Overall Orientation Status: Oriented to Place, Oriented to Situation, and Oriented to Person Vision: not assessed this session Hearing: impaired Social/Functional History Patient admitted from home. Lives With: Alone Type of Home: single family home Home Layout: Single Level Home Home Access: Stairs to Enter with Rails (# of stairs: 2) Bathroom Shower/Tub: Toilet: Standard Home Equipment: front wheeled walker and cane Homemaking Responsibilities: Needs Assist Receives Help From: Family Active Candy Butcher: No Prior Level of Function ADL Assistance: Independent Ambulation Assistance: Device(s) used: cane Transfer Assistance: Independent Objective Lower Extremity Assessment AROM: Impaired: left hip ~ 90 degrees of flexion, full extension when laying in bed. PROM: Not assessed this session Strength: Exceptions: LLE total hip replacement on 09/18/23, has not been up for the past 3 days because of medical complications. Bed Mobility: Supine to sit: Max Assist Sit to supine: Mod Assist Rolling to right: Mod Assist Rolling to left: Mod Assist Scooting: Max Assist Transfers Sit to stand: Mod Assist Stand to sit: Mod Assist Ambulation Did not assess this session. Coordination: Impaired: decreased coordination with transfers and standing. Outcome Measures AM-PAC How much HELP from another person do you currently need Turning from your back to your side while in a flat bed without using bedrails?: A Lot Moving from lying on your back to sitting on the side of a flat bed without using bedrails?: A Lot Moving to and from a bed to a chair (including a wheelchair)?: A Lot Standing up from a chair using your arms (wheelchair or bedside chair)?: A Lot Walking in a hospital room?: Total Stair climbing assessed?: No AM-PAC Inpatient Mobility Raw Score (No Stairs) : 9 [facility] Score: Transferred to chair/commode Plan Pt would benefit from skilled acute PT services to address Strengthening, ROM, Balance Training, Functional Mobility Training, Endurance Training, Gait Training, and Stair Training. Frequency: 5x/week for 3 weeks Barriers: Pain, Limited participation, Decreased endurance, Decreased sensation, Lower extremity weakness, Impaired vision, Medical complications, Stairs at home, and Wound Care Safety/Education Safety Safety Devices in place: All fall risk precautions in place, call light within reach, left in bed, left in chair, gait belt, patient at risk for falls, nurse notified, and no alarms engaged upon entry Restraints: No Education Education Given To: patient and son Education Provided: PT Role, PT Goals, and Transfer Training Education Method: Verbal Barriers to Learning: Hearing, Vision Education Outcome: Verbalized Understanding Goals Patient Stated Goal: To feel better. Encounter Problems Encounter Problems (Active) Mobility Patient will ambulate 50 feet with mod assist and least restrictive device in order to improve safety and independence with mobility. Start: 09/27/23 Expected End: 10/18/23 Patient will ascend and descend 2 stairs with one railing and min assist in order to safely negotiate home. Start: 09/27/23 Expected End: 10/18/23 Transfers Patient will perform bed mobility with min assist in order to improve independence and prepare for out of bed mobility. Start: 09/27/23 Expected End: 10/18/23 Patient will complete functional transfer with least restrictive device with mod assist in order toprepare for ambulation. Start: 09/27/23 Expected End: 10/18/23 Therapy Time Individual Co-treatment Time In 1420 Time Out 1459 Minutes 39 Brielle Metzger PT Patient's Physical Therapy Plan of Care supervision is transferred to a [facility] Physical Therapist. Goals and/or treatment plan was established in collaboration with patient/family/other representatives. * Amos Nichole MD - 09/27/2023 10:15 AM EDT [facility] [place] [facility] Cardiology /Electrophysiology Progress Note CC: NSTEMI HPI / Interval History: Mr. 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 On 09/18/23, he had total left hip replacement surgery at [facility]. He was discharged to SNF. He developed dyspnea and was transferredto [facility] with +NSTEMI, negative CTA for PE. Had a LHC at [facility] with severe mCAD. He was transferred to [facility] for PCI with Dr. Nichole. He had successful PCI on 09/25 with [facility] NORIS placed to ostial RCA, LMCA, ostial and proximal LAD. His ostial LCX SECTIONIZER is heavily calcified- for medical management. His echocardiogram at [place] showed LVEF of 25%, with lateral wall hypokinetic, mild-mod mitral valve insufficiency (at [place] on 09/23/23. Last night he developed dyspnea and was diuresed with 120 mg IV lasix. He has had sinus tachycardiawith PVCs and MAT. This morning, he remain dyspneic, oxygen weaned down to 2 liters. Chest X-ray is wet, will diurese.He denies chest pain, palpitations when having MAT, denies dizziness, syncope, bleeding. He has notbeen out of bed. He is also s/p left hip arthroplasty. While at [facility], urine culture completed with results of + E. Coli. C/o dyspnea this am. HR going up to 120-130's and irregular. EKG shows MAT and not AF. Returned to see him at noon. Slight improvement in Sx w iv lasix. Tele still looks like AF w RVR. Will repeat EKG. CXR w CHF. Denies CP. Assessment/Plan HF NYHA Class [] I [] II [x] III [x] IV NSTEMI/ CAD s/p IVL with NORIS to LMCA, ostial RCA, ostial and proximal LAD on 09/26/23 - Stable. Right femoral site stable without bleeding or hematoma. Must continue DAPT- aspirin and brilinta without interruption for at least 1 year. Continue atorvastatin, Toprol xl, PPI, sq heparin.Patient is not a candidate yet for cardiac rehab. He will need rehab from hip surgery first. 2. HFrEF 25%/ Ischemic cardiomyopathy, stage C, NYHA class III - Diuresing with lasix 80 mg IV. Continue Toprol xl. Will add valsartan and spironolactone today. He reports cough with losartan and nausea and vomiting with Entresto. Will trial valsartan. GDMT willbe titrated. Continue strict I/O, daily weights, fluid and sodium restriction. Will need repeat echo in 3 months after revascularization, to eval for ICD. 3. MAT, frequent PVCs, tachycardia/ SVT - Continue toprol xl. Replace calcium today. Keep K+ > 4, and Mag > 1.8. Continue to monitor. 4. UTI, uncomplicated - Received C&S results from [place], +ecoli in urine. Sensitive to cephalosporins. Continue Rocephin for 5 days today (last dose on Sunday). 5. Hx CVA - with right ECA stenosis. Continue DAPT and atorvastatin. 6. Hypocalcemia - Calcium Gluconate ordered. 7. Recent left hip fracture s/p left hip arthoplasty on 09/18/23 - PT/OT eval for rehab. Wound care eval. 8. HLD - LDL 39. Continue atorvastatin 40 mg. 9. HTN - Controlled. Continue Toprol xl. Add low dose ARB, losartan and titrate. Discussed in detail with Dr. Nichoel Will recheck EKG. If AF then will add Eliquis and Amiodarone and discontinue ASA. Additional BBL asneeded for rate control (currently on Toprol XL 50). Keep rate <110. Diurese for CHF. Strict I&Os. Add valsartan and aldactone. has called MARITZA and requested DNR status for patient. Will ask Palliative Care to Consult to establish goals of care. Patient has been severely debilitated after his hip surgery. Plans currently are for eventual discharge to Ortho Rehab at [facility]. TCC/Discharge planning involved. On Abx for e coli UTI. OT/PT have been consulted. Medications: vitamin C, 500 mg, Oral, Daily aspirin, 81 mg, Oral, Daily atorvastatin, 40 mg, Oral, Daily calcium gluconate, 2,000 mg, IntraVENous, Once cefTRIAXone, 1,000 mg, IntraVENous, q24h furosemide, 40 mg, IntraVENous, Daily heparin, 5,000 Units, IntraVENous, 3 times per day metoprolol succinate XL, 50 mg, Oral, BID pantoprazole, 40 mg, Oral, qAM AC spironolactone, 12.5 mg, Oral, Daily ticagrelor, 90 mg, Oral, BID valsartan, 40 mg, Oral, Daily Infusion Medications: Physical Examination: Vitals: 09/27/23 0325 09/27/23 0726 09/27/23 0913 09/27/23 1045 BP: 116/75 124/74 138/95 123/82 BP Location: Right arm Patient Position: Lying Pulse: 111 110 (!) 125 Resp: 19 Temp: 36.4 C (97.6 F) (!) 35.4 C (95.8 F) TempSrc: Temporal SpO2: 99% 94% Weight: Intake/Output Summary (Last 24 hours) at 09/27/2023 1108 Last data filed at 09/26/20232053 Gross per 24 hour Intake 107.26 ml Output 1555 ml Net -1447.74 ml Wt Readings from Last 3 Encounters: 09/25/23 206 lb 12.8 oz (93.8 kg) Physical Exam Vitals reviewed. Constitutional: General: He is not in acute distress. Appearance: Normal appearance. He is obese. He is ill-appearing. He is not diaphoretic. Interventions: Nasal cannula in place. HENT: Head: Normocephalic. Left Ear: External ear normal. Mouth/Throat: Pharynx: No oropharyngeal exudate. Eyes: General: Right eye: No discharge. Left eye: No discharge. Extraocular Movements: Extraocular movements intact. Neck: Vascular: JVD present. Cardiovascular: Rate and Rhythm: Normal rate. Rhythm irregular. Pulses: Normal pulses. Heart sounds: Normal heart sounds. No murmur heard. No gallop. Comments: Right femoral site without bleeding. Dressing dry and intact. Site is soft. Pulmonary: Effort: Pulmonary effort is normal. No respiratory distress. Breath sounds: Rales present. Abdominal: General: Bowel sounds are normal. There is no distension. Palpations: Abdomen is soft. Tenderness: There is no abdominal tenderness. Genitourinary: Comments: Voids yellow urine. Musculoskeletal: General: Normal range of motion. Cervical back: Normal range of motion and neck supple. Right lower leg: No edema. Left lower leg: No edema. Skin: General: Skin is warm and dry. Capillary Refill: Capillary refill takes less than 2 seconds. Comments: Left hip incision with sutures intact, there is excoriation lateral to incision. No drainage, no redness. Neurological: General: No focal deficit present. Mental Status: He is alert and oriented to person, place, and time. Cranial Nerves: No cranial nerve deficit. Psychiatric: Mood and Affect: Mood normal. Laboratory Tests: Recent Labs 09/26/23 0346 09/27/23 0138 NA 135 138 K 4.4 4.3 CL 105 105 CO2 23 22 BUN 39* 40* CREATININE 0.86 0.91 Recent Labs 09/25/23 1513 09/26/23 0346 09/26/23 1822 09/27/23 0138 WBC 13.9* 14.9* -- 12.9* HGB 9.8* 9.8* 10.8 10.2* HCT 30.4* 30.6* -- 32.4* MCV 94.7 93.6 -- 96.1 PLT 353 343 -- 355 Recent Labs 09/25/23 1513 TROPONINI 25.400* No results for input(s): BNP in the last 72 hours. No results for input(s): TRIG, HDL, LDLCALC, CHOL in the last 72 hours. No results found for: LDLCHOLESTER No results found for: TSH No results found for: EFBP, PLVEF, LVEFPHYS, LVEF2D, EF No results found for this or any previous visit. Other reports reviewed: PCI 09/26/23: Conclusions Mildly elevated LVEDP 18 mmHG Severe calcified left main( ostial 50%, distal 80%) stenosis Severe calcified proximal LAD( 80%) stenosis Small D1 with proximal 70% lesion Ostial LCX SECTIONIZER heavily calcified with no collaterals Severely calcified ostial RCA(90%) lesion, mid(30%) and distal RCA(50%) Successful IVUS guided Intravascular Lithotripsy and NORIS of ostial RCA. Successful IVUS guided Intravascular Lithotripsy and NORIS of LMCA. Successful IVUS guided Intravascular Lithotripsy and NORIS of ostial and proximal LAD. Plan DAPT for at least 1 year and fdc if tolerates. Single antiplatelet lifelong High intensity statin Aggressive risk factor modification Optimal GDMT for ischemic cardiomyopathy Remove right femoral arterial sheath once ACT is less than 160 seconds. Patient to lay supine for 6hrs post sheath removal. Cardiac Tests: ECG: IMPRESSION: Sinus tachycardia Atrial premature complex Telemetry findings reviewed: MAT/ ST with PVCs No results found for: EFBP, PLVEF, LVEFPHYS, LVEF2D, EF Elisa Goldstein, PAINT TECHNICIAN - [facility] Date Of Service 09/27/2023 I, Dr. Amos Nichole, saw and evaluated the patient on 09/27/2023. I personally obtained the morrow and critical portions of the history and physical exam. I reviewed the labs, imaging studies, and electronic medical record. I reviewed the MARITZA's documentation, and discussed the patient with the MARITZA. Iagree with the MARITZA's medical decision making and have edited the note to reflect my clinical findings and my assessment and plan. I performed a substantive portion of the care of this patient. * Isabel Mcdonald - 09/27/2023 7:52 AM EDT .Nutrition rescreen completed. Chart reviewed. Patient to be monitored and followed by the diet clean room technician. DEVORA Lares * MELISSA Jones CNP - 09/26/2023 3:43 PM EDT Evaluated patient after being notified having tachypnea and tachycardia. IV Fluids stopped. Patientlaying flat in bed, oxygen on with O2 sat 92-93%. HR 115, + JVD noted. Patient complains of dyspnea. Faint crackles left base. Will give Lasix 40 mg IV x 1 now and repeat in am. His EF is low, LVEDP 18, will start GDMT in am (ARB and Reyes). Right femoral site without bleeding or hematoma. Sheath was removed, dressing dry and intact. documented in this [facility]04-18-2024 NoteOrthopedic Progress Note Name: Eben Cruz Date:10/04/2023 Attending:Amos Nichole MD Subjective CHIEF COMPLAINT: status post left anterior hip arthroplasty on 09/17 at [place] HPI: Patient is seen resting in bed. He reports that he is not having much pain into his left hip at rest. Patient endorses difficulty with ambulation secondary to hip pain. He denies any numbness or tingling into his lower extremity. Patient denies any fevers, chills, or feelings of malaise. Discussed with patient that he should follow-up with his original surgeon at discharge. 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 ([facility]) HFrEF (heart failure with reduced ejection fraction) ([facility]) PAST SURGICAL HISTORY Past Surgical History: Procedure Laterality Date CARDIAC CATHETERIZATION N/A 09/26/2023 Performed by Amos Nichole MD at [facility] Cardiac Cath/EP Lab CARDIAC CATHETERIZATION N/A 09/26/2023 Performed by Amos Nichole MD at [facility] Cardiac Cath/EP Lab HERNIA REPAIR INVASIVE VASCULAR PROCEDURE N/A 09/26/2023 Performed by Amos Nichole MD at [facility] Cardiac Cath/EP Lab JOINT REPLACEMENT both hip replacements, L shoulder HOME MEDICATIONS Prior to Admission medications Medication Sig Start Date End Date Taking? Authorizing Provider amLODIPine (Norvasc) 2.5 MG tablet Take 2.5 mg by mouth daily. Historical Provider, Ascorbic Acid (vitamin C) 100 MG tablet Take 100 mg by mouth daily. Unknown dosage Historical Provider, aspirin 81 MG EC tablet Take 81 mg by mouth daily. Historical Provider, atorvastatin (Lipitor) 40 MG tablet Take 40 mg by mouth daily. Historical Provider, Calcium Carbonate-Vitamin D 500-5 MG-MCG tablet Take by mouth. Historical Provider, metoprolol succinate XL (Toprol-XL) 50 MG 24 hr tablet Take 25 mg by mouth in the morning and 25 mg in the evening. Do not crush or chew.. Historical Provider, zinc gluconate 50 MG tablet Take 50 mg by mouth daily. Historical Provider, CURRENT HOSPITAL MEDICATIONS Current Facility-Administered Medications: acetaminophen (Tylenol) tablet 650 mg, 650 mg, Oral, q6h PRN, 650 mg at 10/01/231947 OR acetaminophen (Tylenol) suppository 650 mg, 650 mg, Rectal, q6h PRN, Ashleigh Zuletaiafijojo, PAINT TECHNICIAN - [employer] FIRST OFFICER amiodarone (Pacerone) tablet 400 mg, 400 mg, Oral, BID, Elisa Goldstein, PAINT TECHNICIAN - [employer] FIRST OFFICER, 400 mg at 10/04/23 0940 apixaban (Eliquis) tablet 5 mg, 5 mg, Oral, BID, Christopher Salcedo DO, 5 mg at 10/04/23940 ascorbic acid (Vitamin C) tablet 500 mg, 500 mg, Oral, Daily, Ashleigh Perkins Puliafijojo, PAINT TECHNICIAN - [employer] FIRST OFFICER, 500 mg at 10/04/2340 aspirin EC tablet 81 mg, 81 mg, Oral, Daily, Ashleigh B Puliafico, PAINT TECHNICIAN - [employer] FIRST OFFICER, 81 mg at 10/04/23 09 atorvastatin (Lipitor) tablet 40 mg, 40 mg, Oral, Daily, Ashleigh Zuletaiakylah, PAINT TECHNICIAN - [employer] FIRST OFFICER, 40 mg at 10/04/23 09 Calcium Carb-Cholecalciferol 500-5 MG-MCG per tablet 1 tablet, 1 tablet, Oral, Daily, Elisa Goldstein PAINT TECHNICIAN - [employer] FIRST OFFICER, 1 tablet at 10/04/23 09 clopidogrel (Plavix) tablet 75 mg, 75 mg, Oral, Daily, Ashleigh Zuletaiafijojo, PAINT TECHNICIAN - [employer] FIRST OFFICER, 75 mg at 10/04/23 0942 dapagliflozin (Farxiga) tablet 10 mg, 10 mg, Oral, Daily, Charlette Borrero MD, 10 mg at 10/04/23 1129 ipratropium-albuterol (Duo-Neb) 0.5-2.5 mg/3 mL nebulizer solution 3 mL, 3 mL, Nebulization, q8h PRN, Elisa Goldstein, PAINT TECHNICIAN - [employer] FIRST OFFICER, 3 mL at 10/02/232155 melatonin tablet 10 mg, 10 mg, Oral, Nightly PRN, Travis Crawford MD, 10 mg at 10/01/23 194 metoprolol succinate XL (Toprol-XL) 24 hr tablet 50 mg, 50 mg, Oral, Nightly, Christopher Salcedo DO naloxone (Narcan) injection 0.4 mg, 0.4 mg, IntraVENous, q5 min PRN, Amos Nichole MD pantoprazole (ProtoNix) EC tablet 40 mg, 40 mg, Oral, qAM AC, Ashleigh Morrison, PAINT TECHNICIAN - [employer] FIRST OFFICER, 40 mg at 10/04/23 0610 polyethylene glycol (PEG) 3350 (Miralax) packet 17 g, 17 g, Oral, Daily, Yajaira Thakkar, PAINT TECHNICIAN - [employer] FIRST OFFICER, 17 g at 09/29/23 0750 promethazine (Phenergan) tablet 12.5 mg, 12.5 mg, Oral, q6h PRN, Cliff Cast Jr., MD spironolactone (Aldactone) tablet 12.5 mg, 12.5 mg, Oral, Daily, Christopher Salcedo DO, 12.5 mg at 10/03/23 1222 ALLERGIES: Entresto [sacubitril-valsartan] and Wool alcohol [lanolin] SOCIAL HISTORY: Social History Socioeconomic History Marital status: Spouse name: Not on file Number of children: Not on file Years of education: Not on file Highest education level: Not on file Occupational History Not on file Tobacco Use Smoking status: Never Smokeless tobacco: Never Vaping Use Vaping Use: Never used Substance and Sexual Activity Alcohol use: Never Drug use: Never Sexual activity: Not on file Other Topics Concern Not on file Social History Narrative Not on file Social Determinants of Health Financial Resource Strain: Not on file Food Insecurity: Not on file Transportation Needs: Not on file Physical Activity: Not on file St (more content not included)...[facility]04-18-2024 NoteCare Management Progress Note TCC faxed LifeVest order and referral packet to [phone]. TCC spoke with Deven Kumar [phone] auth should take a few hours and patient should have vest by tomorrow. TCC updated treatment team via secure chat. Discharge Milestones and Delays Expected Date/Time: 10/05/[address] discharge order Complete med reconciliation Case mgmt discharge readiness Clinical Stability Diagnsotic Workup Expected Discharge History Expected Date/Time Set By Reviewed At 10/05/2023 Soco Palumbo RN 10/04/2023 7:39 AM Thoracentesis today. 10/05/2023 Arminda Marie RN 10/03/2023 10:33 AM 10/03/2023 Arminda Reed RN 10/02/2023 8:01 AM [facility] 10/03/2023 Vivienne Wilson RN 10/01/2023 11:05 AM Arminda Lawler RN 09/26/2023 9:06 AM 09/27/2023 Ashleigh Morrison APRN - GELY 09/25/2023 1:40 PM Length of Stay (Days): 9 GMLOS: [address] [place], [place] [id number] [facility] Wound Care Progress Note Eben Cruz AGE: 78 y.o. GENDER: male : 1945 Subjective: HISTORY of PRESENT ILLNESS HPI Eben Cruz is a 78 y.o. male who presents for a wound care follow up. HPI: Eben Cruz is a 78 y.o. 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 He is known to [facility] outpatient. Had C in 2013 with non-obstructive CAD (per pt). NST 06/21/22 showed preserved EF, no ischemia. On 09/18/23, had total left hip replacement surgery at [facility]. Had complicated course requiring wound vac. Discharged to [facility] (SNF). Wound Care consulted for left hip wound. Patient states he had a hip replacement surgery on 09/18/23 at [facility]. Patient resting in bed. PAST MEDICAL HISTORY Past Medical History: Diagnosis Date Adverse effect of anesthesia Arthritis Coronary artery disease Delayed emergence from general anesthesia Hypertension Stroke (HCC) PAST SURGICAL HISTORY Past Surgical History: Procedure Laterality Date CARDIAC CATHETERIZATION N/A 09/26/2023 Performed by Amos Nichole MD at [facility] Cardiac Cath/EP Lab CARDIAC CATHETERIZATION N/A 09/26/2023 Performed by Amos Nichole MD at [facility] Cardiac Cath/EP Lab HERNIA REPAIR INVASIVE VASCULAR PROCEDURE N/A 09/26/2023 Performed by Amos Nichole MD at [facility] Cardiac Cath/EP Lab JOINT REPLACEMENT both hip replacements, L shoulder FAMILY HISTORY No family history on file. SOCIAL HISTORY Social History Tobacco Use Smoking status: Never Smokeless tobacco: Never Vaping Use Vaping Use: Never used Substance Use Topics Alcohol use: Never Drug use: Never ALLERGIES Allergies Allergen Reactions Entresto [Sacubitril-Valsartan] Nausea And Vomiting Wool Alcohol [Lanolin] MEDICATIONS No current facility-administered medications on file prior to encounter. Current Outpatient Medications on File Prior to Encounter Medication Sig Dispense Refill amLODIPine (Norvasc) 2.5 MG tablet Take 2.5 mg by mouth daily. Ascorbic Acid (vitamin C) 100 MG tablet Take 100 mg by mouth daily. Unknown dosage aspirin 81 MG EC tablet Take 81 mg by mouth daily. atorvastatin (Lipitor) 40 MG tablet Take 40 mg by mouth daily. Calcium Carbonate-Vitamin D 500-5 MG-MCG tablet Take by mouth. metoprolol succinate XL (Toprol-XL) 50 MG 24 hr tablet Take 25 mg by mouth in the morning and 25 mg in the evening. Do not crush or chew.. zinc gluconate 50 MG tablet Take 50 mg by mouth daily. REVIEW OF SYSTEMS Pertinent items are noted in HPI. Objective: BP 91/63 Pulse 85 Temp 36.5 ?C (97.7 ?F) (Temporal) Resp 20 Ht 1.778 m (5' 10) Wt 95.1 kg (209 lb 10.5 oz) SpO2 96% BMI 30.08 kg/m? PHYSICAL EXAM General appearance: in no apparent distress, alert, and oriented times 3 Skin: warm and dry Pulmonary: Normal effort, no respiratory distress, no cyanosis. Nasal cannula Extremities: no cyanosis, clubbing or edema- KIRIT hose in place Left hip: Incision well approximated. Sutures in place. No drainage noted. Periwound with scattered scabbing noted. Stable LABS CBC: Lab Results Component Value Date WBC 11.2 (H) 10/04/2023 HGB 10.3 (L) 10/04/2023 HCT 33.8 (L) 10/04/2023 MCV 97.7 10/04/2023 PLT 459 (H) 10/04/2023 BMP: Lab Results Component Value Date NA 138 10/04/2023 K 4.1 10/04/2023 CL 105 10/04/2023 CO2 28 10/04/2023 PHOS 4.1 10/04/2023 BUN 26 (H) 10/04/2023 CREATININE 1.09 10/04/2023 PT/INR: No results found for: PROTIME, INR Prealbumin: No results found for: PREALBUMIN Albumin:No components found for: LABALBU Sed Rate: No results found for: SEDRATE Micro: No components found for: BC Assessment/Plan: Left hip: surgical -leave NEAL -follow up with surgeon when discharged Nutritional support Wound Care to follow Any questions or concerns please secure chat [facility] wound/ostomy. Thank you for the consult! I personally obtained the morrow and critical portions of the history and physical exam. I reviewed the labs, imaging studies, and electronic medical record. I reviewed the chart documentation and discussed the patient with treatment team members. I have edited the note to reflect my clinical findings and my assessment and plan. Please note, the time of this note does not reflect the time I saw this patient today, but the time of this documentaton. Portions of this note including HPI, ROS, impression/plan, and examination may have been copied forward from admission to today as to provide important historical information essential in contributing to medical decision making. Documentation has been reviewed and edited as necessary to support clinical decision making for today's visit and to reflect my own independent evaluation of this patient. Decision making for today's visit and to reflect my (more content not included)...[facility]04-18-2024 NoteCare Management Progress Note Chart reviewed. Patient admitted to for CAD 09/25/2023. Consults to IP CONSULT TO ANESTHESIOLOGY IP WOUND CARE NURSE CONSULT TO EVAL IP CONSULT TO CARDIAC REHAB IP CONSULT TO CARDIAC REHAB IP CONSULT TO PALLIATIVE CARE IP CONSULT TO CARDIOLOGY IP CONSULT TO ORTHOPAEDIC SURGERY Discharge Planning/Barriers: TCC notified facility auth approved. Patient not ready for discharge today. TCC notfied by cardiology needing [facility] set up. TCC called Vivienne [phone] and Luis [phone] from [facility] and . [facility] set up pending. Addendum: TCC called [facility] [phone]. TCC directed to call Deven [phone]. No answer; LVM. Discharge Plan: [facility] SNF. Awaiting [facility] set up, clinical stability and medical clearance. Will continue to follow with SW. Discharge Milestones and Delays Expected Date/Time: 10/05/[address] discharge order Complete med reconciliation Case mgmt discharge readiness Clinical Stability Diagnsotic Workup Expected Discharge History Expected Date/Time Set By Reviewed At 10/05/2023 Soco Palumbo RN 10/04/2023 7:39 AM Thoracentesis today. 10/05/2023 Arminda Marie RN 10/03/2023 10:33 AM 10/03/2023 Arminda Reed RN 10/02/2023 8:01 AM pending [facility] 10/03/2023 Vivienne Wilson RN 10/01/2023 11:05 AM Arminda Lawler RN 09/26/2023 9:06 AM 09/27/2023 Ashleigh Morrison APRN - GELY 09/25/2023 1:40 PM Length of Stay (Days): 9 GMLOS: 4.6[facility]04-18-2024 NoteTC notes LACE & Readmission Score >58. TCC completed referral to Ambulatory Transition Care Team. [facility]04-18-2024 NoteReferral placed to [facility] via [facility] per TCC request. Await review and response regarding ability to accept. TCC notified. [facility]04-18-2024 [facility] [place] Cardiology /Electrophysiology Progress Note HPI / Interval History: Mr. Cruz is a 78 YO M known to Dr. Paredes ([facility]) who has a Pmhx of HTN, HLD, recent hip replacement (09/18/23) and R parietal CVA with high grade R external carotid stenosis in 04/2023 who presented from [place] for high risk PCI. Dr. Nichole performed PCI on 09/26/23 with NORIS x 3 to LM, LAD, and RCA. After his PCI, he was in decompensated HF and went into afib/aflutter s/p DCCV. HF following for HFrEF. This morning is resting comfortably in bed, reports that his breathing is much improved from yesterday. Took him off supplemental O2 while in the room. Creatinine remains stable; CXR with resolved R pleural effusion, no pneumothorax, no pulmonary edema, persistent small to moderate L pleural effusion. JVD is 5 - 8 cm this morning with respiratory variation. Overnight Metoprolol succinate held 2/2 to hypotension Up to chair. Breathing much better. Denies CP. CXR improved. Assessment/Plan HFrEF: ICM: NYHA Class III - ICM s/p PCI of LM, LAD and RCA on 09/26/[address] Nichole - TTE on 09/30/23 with biventricular dysfunction, EF ~ 15%, 2+ MR, mild aortic stenosis, DVI of 0.35, mean gradient of 11 - This morning looks good, WOB much improved, no LE edema, JVD 5 - 8 with respiratory variation - Will hold on addition of ARB due to hypotension- He was previously intolerant to Entresto (N/V) - Will start Farxiga today to assist with volume management - Will stop Torsemide today; may need PRN diuresis at home - Continue low dose spironolactone 12.5 mg daily - Will need to discuss [facility] given ICM with EF of < 35%. - Plan for him to go to facility on 10/05/23. Follow up appointment with Dr. Paredes has been made. - From HF standpoint is okay for discharge on 10/05/23; will need to out afterload as an outpatient if tolerated. - Would consider low dose Ramipril 1.25 mg TID if SBP's consistently > 100. Dicussed w HF service. Stop torsemide for low BP. Continue Aldactone. Plan on discharge to [facility] tomorrow. Follow up w [facility] in [place] has been arranged. Atrial Fibrillation/ Flutter with 2:1 Block - CHADsVASC of 4 - On Eliquis 5 mg BID, Metoprolol succinate 75 mg nightly and Amio 400 mg BID; is nearly loaded with amio - Remains in NSR this morning In SR. Occasional PVCs. Discharge on Amio 400 every day then decrease to 200 every day in 1 months. Back on Apixaban. Bilateral Pleural Effusion: - 2 view CXR demonstrated moderate to large bilateral pleural effusions - Thoracentesis with 1L removed from the R - CXR much improved no pneumothorax. MV CAD s/p PCI w/ NORIS to LM, LAD and RCA on 09/26/23 - ASA, Plavix, Eliquis; stop ASA at discharge - Dr. Nichole following Medications: amiodarone, 400 mg, Oral, BID apixaban, 5 mg, Oral, BID vitamin C, 500 mg, Oral, Daily aspirin, 81 mg, Oral, Daily atorvastatin, 40 mg, Oral, Daily Calcium Carb-Cholecalciferol, 1 tablet, Oral, Daily clopidogrel, 75 mg, Oral, Daily metoprolol succinate XL, 75 mg, Oral, Nightly pantoprazole, 40 mg, Oral, qAM AC polyethylene glycol (PEG) 3350, 17 g, Oral, Daily spironolactone, 12.5 mg, Oral, Daily torsemide, 10 mg, Oral, Daily Infusion Medications: Physical Examination: Vitals: 10/03/23 1858 10/03/23200410/03/23 2330 10/04/23 0350 BP: 97/56 90/56 (!) 95/46 BP Location: Patient Position: Pulse: 89 86 80 Resp: 25 (!) 28 (!) 26 23 Temp: 36.3 ?C (97.4 ?F) 36.4 ?C (97.6 ?F) 36.4 ?C (97.5 ?F) TempSrc: Temporal Temporal Temporal SpO2: 100% 98% 98% 94% Weight: Height: Intake/Output Summary (Last 24 hours) at 10/04/2023 0710 Last data filed at 10/04/2023 0610 Gross per 24 hour Intake 650 ml Output 200 ml Net 450 ml Wt Readings from Last 3 Encounters: 10/03/23 209 lb 10.5 oz (95.1 kg) Physical Exam Vitals reviewed. Constitutional: Appearance: He is not ill-appearing. HENT: Right Ear: External ear normal. Left Ear: External ear normal. Eyes: General: No scleral icterus. Neck: Comments: JVD 5-8 cm Cardiovascular: Rate and Rhythm: Normal rate and regular rhythm. Pulses: Normal pulses. Heart sounds: Murmur heard. Pulmonary: Effort: No respiratory distress. Breath sounds: No rhonchi or rales. Comments: Diminished basilar breath sounds Abdominal: General: There is no distension. Palpations: Abdomen is soft. Tenderness: There is no abdominal tenderness. Musculoskeletal: General: No deformity. Right lower leg: No edema. Left lower leg: No edema. Comments: Trace pitting LE edema Skin: Capillary Refill: Capillary refill takes less than 2 seconds. Neurological: General: No focal deficit present. Laboratory Tests: Recent Labs 10/02/23 0050 10/03/23 0136 10/04/23 0137 NA 136 137 138 K 3.9 4.1 4.1 CL 105 105 105 CO2 23 26 28 BUN 29* 27* 26* CREATININE 1.12 1.19 1.09 Recent Labs (more content not included)...[facility]04-17-2024 Note Ref[facility] request. Await review and response regarding ability to accept. [facility] notified. [place] [id number] NoteCare Management Progress Note Patient remains on 1C s/p Cardioversion 10/01, Thoracentesis today. PT/OT recommending SNF. Jennifer at [facility] contacted for bed availability and confirmed they have SNF beds available. Requested an updated OT note to start insurance auth. Requested HYDROSTATIC TUBING TESTER send AUG, updated PT note and Cardiology note to facility per their request. Discharge Milestones and Delays Expected Date/Time: 10/05/[address] discharge order Complete med reconciliation Case mgmt discharge readiness Clinical Stability Diagnsotic Workup Expected Discharge History Expected Date/Time Set By Reviewed At 10/05/2023 Arminda Marie RN 10/03/2023 10:33 AM Thoracentesis today. 10/03/2023 Arminda Reed RN 10/02/2023 8:01 AM pending [facility] 10/03/2023 Vivienne Wilson RN 10/01/2023 11:05 AM Arminda Lawler RN 09/26/2023 9:06 AM 09/27/2023 Ashleigh Morrison, PAINT TECHNICIAN - AIRPLANE FIRST OFFICER 09/25/2023 1:40 PM Length of Stay (Days): 8 LOS: [address] [place], [place] [id number] [facility] Wound Care Progress Note Eben Cruz AGE: 78 y.o. GENDER: male : 1945 Subjective: HISTORY of PRESENT ILLNESS HPI Eben Cruz is a 78 y.o. male who presents for a wound care follow up. HPI: Eben Cruz is a 78 y.o. 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 He is known to [facility] outpatient. Had C in 2013 with non-obstructive CAD (per pt). NST 06/21/22 showed preserved EF, no ischemia. On 09/18/23, had total left hip replacement surgery at [facility]. Had complicated course requiring wound vac. Discharged to [facility] (SNF). Wound Care consulted for left hip wound. Patient states he had a hip replacement surgery on 09/18/23 at [facility]. Patient sitting up in chair eating breakfast. PAST MEDICAL HISTORY Past Medical History: Diagnosis Date Adverse effect of anesthesia Arthritis Coronary artery disease Delayed emergence from general anesthesia Hypertension Stroke (HCC) PAST SURGICAL HISTORY Past Surgical History: Procedure Laterality Date CARDIAC CATHETERIZATION N/A 09/26/2023 Performed by Amos Nichole MD at [facility] Cardiac Cath/EP Lab CARDIAC CATHETERIZATION N/A 09/26/2023 Performed by Amos Nichole MD at [facility] Cardiac Cath/EP Lab HERNIA REPAIR INVASIVE VASCULAR PROCEDURE N/A 09/26/2023 Performed by Amos Nichole MD at [facility] Cardiac Cath/EP Lab JOINT REPLACEMENT both hip replacements, L shoulder FAMILY HISTORY No family history on file. SOCIAL HISTORY Social History Tobacco Use Smoking status: Never Smokeless tobacco: Never Vaping Use Vaping Use: Never used Substance Use Topics Alcohol use: Never Drug use: Never ALLERGIES Allergies Allergen Reactions Entresto [Sacubitril-Valsartan] Nausea And Vomiting Wool Alcohol [Lanolin] MEDICATIONS No current facility-administered medications on file prior to encounter. Current Outpatient Medications on File Prior to Encounter Medication Sig Dispense Refill amLODIPine (Norvasc) 2.5 MG tablet Take 2.5 mg by mouth daily. Ascorbic Acid (vitamin C) 100 MG tablet Take 100 mg by mouth daily. Unknown dosage aspirin 81 MG EC tablet Take 81 mg by mouth daily. atorvastatin (Lipitor) 40 MG tablet Take 40 mg by mouth daily. Calcium Carbonate-Vitamin D 500-5 MG-MCG tablet Take by mouth. metoprolol succinate XL (Toprol-XL) 50 MG 24 hr tablet Take 25 mg by mouth in the morning and 25 mg in the evening. Do not crush or chew.. zinc gluconate 50 MG tablet Take 50 mg by mouth daily. REVIEW OF SYSTEMS Pertinent items are noted in HPI. Objective: BP 122/55 Pulse 81 Temp 36.3 ?C (97.3 ?F) (Temporal) Resp 22 Ht 1.778 m (5' 10) Wt 95.1 kg (209 lb 10.5 oz) SpO2 100% BMI 30.08 kg/m? PHYSICAL EXAM General appearance: in no apparent distress, alert, and oriented times 3 Skin: warm and dry Pulmonary: Normal effort, no respiratory distress, no cyanosis. Nasal cannula Extremities: no cyanosis, clubbing or edema- KIRIT hose in place Left hip: Incision well approximated. Sutures in place. No drainage noted. Periwound with scattered scabbing noted. 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 Thank you for the consult! I personally obtained the morrow and critical portions of the history and physical exam. I reviewed the labs, imaging studies, and electronic medical record. I reviewed the chart documentation and discussed the patient with treatment team members. I have edited the note to reflect my clinical findings and my assessment and plan. Please note, the time of this note does not reflect the time I saw this patient today, but the time of this documentaton. Portions of this note including HPI, ROS, impression/plan, and examination may have been copied forward from admission to today as to provide important historical information essential in contributing to medical decision making. Documentation has been reviewed and edited as necessary to support clinical decision making for today's visit and to reflect my own independent evaluation of this patient. Decision making for today's (more content not included)...[facility] [id number] NotePalliative Care Progress Note Chief Complaint: Eben Cruz is a 78 y.o. male with chief complaint of shortness of breath. Palliative Care will follow peripherally, please contact on-call provider for urgent needs Assessment/Plan Shortness of breath/B pleural effusions - multifactorial, hx HFrEF, NSTEMI - O2 2L - per primary: prn duonebs - plans for thoracentesis today, R removed for >1L - breathing improved post thoracentesis HFrEF/CAD/HTN/afib/NSTEMI - ECHO from 09/30/23 report reviewed - post NORIS to LMCA, ostial RCA, ostial and proximal LAD 09/26/23 - cardiology primary: amiodarone, apixaban (held today), asa, atorvastatin, clopidogrel, metoprolol succinate, ticagrelor (dc 10/01/23), torsemide--currently held - had DCCV 10/02/23-remains in NSR, also helpful for his breathing UTI - per primary: ceftriaxone--completed Debility - PT/OT recommending SNF--awaiting acceptance - 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, 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 L hip fracture - post arthroplasty 09/18/23 - [facility] - ortho removed sutures 10/02/23 Risk for constipation - no longer feels constipated, BM 10/03/23 - changed prn polyethylene glycol to schedule Insomnia, depression, poor appetite - major life change - 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 Discharge planning: Not ready for discharge due to medical instability and pending insurance approval to SNF Patient meets criteria for general inpatient hospice care including the following: N/A - Palliative Care Patient Referrals to: None Discussed patient and the plan of care with the other interdisciplinary team (IDT) members of Palliative Care Team, and with Primary Provider, Patient, and Floor Nurse Insert attestation statement here if applicable (.disupervision) or (.npattest) Subjective: Subjective/Events Since last seen: remains on telemetry, underwent DCCV yesterday, completed thoracentesis today, awake in bed, fatigued, without pain, CP, abdominal pain, breathing easier today, no nausea, vomiting currently NPO but appetite remains fair to poor, BM 10/02/23 Eben Mohinder Anthony is a 78 y.o. male living independently at home, still driving, working [employer] for [employer]. PMHx includes: HTN, HLD, partial R CVA. At [facility] for L total hip replacement but complicated by requirement of wound vac, was at SNF. transferred to [place] for cardiology NSTEMI, transferred to [facility] for PCI. Family called with stating he needs to be DNR but he is oriented, palliative care consulted for goals of care Goals of care:Continue Current Management Functional Assessment: PPS: 50% Advance Directives: Full Code Surrogate: Child Prognosis: unknown Spiritual assessment: No spiritual distress identified Bereavement and grief: Grief Issues Not Identified Review of Systems ROS: See palliative care ROS/ESAS below; All other systems were reviewed and are negative. [place] Symptom Assessment Score [place] Score Pain Score 0 Tiredness Score 0 Nausea Score 0 Depression Score 0 Anxiety Score 0 Drowsiness Score 0 Anorexia Score (0= eating well, 10= not eating) 7 Wellbeing Score (10= worst sense of well-being) 0 Constipation 0 Dyspnea Score (0= no shortness of breath) 0 FLACC Scale (For Pain Assessment of the Non-Verbal Patient) Patient is verbal Assessed by: patient and provider. 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 Physical Exam Vitals and nursing note reviewed. HENT: Head: Normocephalic and atraumatic. Nose: Nose normal. Mouth/Throat: Mouth: Mucous membranes are moist. Eyes: General: Right eye: No discharge. Left eye: No discharge. Pupils: Pupils are equal, round, and reactive to light. Cardiovascular: Rate and Rhythm: Normal rate and regular rhythm. Pulses: Normal pulse (more content not included)...[facility] 10-03-2023 [facility] [place] [facility] Cardiology /Electrophysiology Progress Note CC: CAD HPI / Interval History: Mr. 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 On 09/18/23, he had total left hip replacement surgery at [facility]. He had a NSTEMI and was transferred to [facility]. On 09/26/23, he had a PCI with IVL and NORIS placed to ostial RCA, LMCA, ostial and proximal LAD. His ostial LCX SECTIONIZER is heavily calcified- for medical management. Echocardiogram on 09/30/23, with EF of 15-20%. Pleural effusions. EKG afib, now s/p DCC on amiodarone. This morning, he is in SR with frequent PVCs. Plan is for a thoracentesis today. Seen by the Advanced Heart Failure team. His main complaint is dyspnea which comes and goes, worse with exertion. He denies chest pain, palpitations, bleeding, swelling, syncope. Voiding without difficulty. BM today. Back in SR w occasional PVCs. Up to chair. C/o dyspnea but no CP or palps. For bilat thoracentesis today. Apixaban has been held follow DCC yesterday. Assessment/Plan HF NYHA Class [] I [] II [x] III [] IV NSTEMI/CAD s/p IVL with NORIS to LMCA, ostial RCA, ostial and prox LAD on 09/26/23 - Stable. Denies chest pain. Continue aspirin and plavix without interruption. He will continue apixaban after thoracentesis and at discharge, stop aspirin and continue plavix and apixaban. Continue atorvastatin, toprol xl, PPI. Cardiac rehab as outpatient once he has rehab for his left hip. 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 Paredes on October 16 at 2:15pm. Doing well. On ASA and clopidogrel. Restart Apixaban after thoracentesis. Stop ASA on discharge. HFrEF 25%, acute on chronic HF Stage C, Class III - Continues to have dyspnea, worse with activity, comes and goes. For thoracentesis today. Continue Toprol xl. GDMT limited due to low BP. Restart spironolactone today, add ARB once BP stable and tolerates. HF following. I/O - 4liters this admission, weights not accurate. Continue daily weights, strict I/O, sodium restriction. GDMT and diuretic per HF. HF service following. Restart Aldactone. Add ARB if BP tolerates. Afib/ Aflutter/ MAT/PVCs/SVT, s/p DCC on 10/02/23 - In SR. Continue amiodarone 400 mg bid until discharge, then decrease to 400 mg for 1 month, then 200 mg daily. Resume apixaban after thoracentesis for CHADS2-VASC of 6. Replace electrolytes to keep K+ > 4, Mg > 2. Agree. Pleural effusion - Thoracentesis today for pleural effusions. Resume apixaban following thoracentesis. UTI - Antibiotics completed. Hx CVA - With right ECA stenosis. Continue DAPT and atorvastatin. Recent left hip fracture, s/p left hip arthroplasty on 09/18/23 in [place] - Ortho consulted. Weight bearing as tolerated. X-ray stable. PT/OT. Will need SNF at discharge. To follow up with surgeon in [place]. HLD - Continue atorvastatin. LDL 39. HTN - Controlled. Had been running low. Continue Toprol xl. Add GDMT as BP tolerates. Debility - PT/OT. Will need SNF at discharge. Goals of care - Palliative care consulted and following. Discussed with Dr. Nichole. Follow up arranged with Dr. Paredes, his primary box sealing inspector, on October 16 at 2:15. Will need SNF at discharge. Medications: amiodarone, 400 mg, Oral, BID [Held by provider] apixaban, 5 mg, Oral, BID vitamin C, 500 mg, Oral, Daily aspirin, 81 mg, Oral, Daily atorvastatin, 40 mg, Oral, Daily clopidogrel, 75 mg, Oral, Daily metoprolol succinate XL, 75 mg, Oral, Nightly pantoprazole, 40 mg, Oral, qAM AC polyethylene glycol (PEG) 3350, 17 g, Oral, Daily [Held by provider] spironolactone, 12.5 mg, Oral, Daily [Held by provider] torsemide, 10 mg, Oral, Daily [Held by provider] valsartan, 40 mg, Oral, Daily Infusion Medications: Physical Examination: Vitals: 10/02/23 2322 10/03/23 0455 10/03/23 0600 10/03/23 0730 BP: 104/59 123/71 BP Location: Left arm Right arm Patient Position: Lying Sitting Pulse: 91 81 87 Resp: 17 (!) 28 Temp: 36.3 ?C (97.3 ?F) TempSrc: Temporal SpO2: 98% 96% 95% Weight: 209 lb 10.5 oz (95.1 kg) Height: Intake/Output Summary (Last 24 hours) at 10/03/2023 0757 Last data filed at 10/02/2023 2216 Gross per 24 hour Intake 53 ml Output 250 ml Net -197 ml Wt Readings from Last 3 Encounters: 10/03/23 209 lb 10.5 oz (95.1 kg) Physical Exam Vitals reviewed. Constitutional: General: He is not in acute distress. Appearance: Normal appearance. He is ill-appearing. He is not diaphoretic. Interventions: Nasal cannula in place. Comments: Appears dyspneic HENT: Head: Normocephalic. Mouth/Throat: Pharynx: No oropharyngeal exudate. Eyes: General: Right eye: No discharge. Left eye: No discharge. Extraocular Movements: Extraocular movements intact. Pupils: Pupils are equal, round, and reactive to light. Neck: Vascular: No JVD. Cardiovascular (more content not included)...[facility]04-17-2024 [facility] [place] Cardiology /Electrophysiology Progress Note HPI / Interval History: Mr. Cruz is a 78 YO M known to Dr. Paredes ([place] [facility]) who has a Pmhx of HTN, HLD, recent hip replacement (09/18/23) and R parietal CVA with high grade R external carotid stenosis in 04/2023 who presented from [place] for high risk PCI. Dr. Nichole performed PCI on 09/26/23 with NORIS x 3 to LM, LAD, and RCA. After his PCI, he was in decompensated HF and went into afib/aflutter s/p DCCV. HF team asked to see him for HFrEF and concern for low output heart failure. This morning reports that overnight and this morning he has had worsening SOB. He did get up with PT this morning and made it out to the front end mechanic however was really SOB just doing that. Denies any dizziness/lightheadedness with ambulation. Plan for thoracentesis around 1130 AM this morning. Creatinine remains stable; no CXR to review for today. JVD is 8- 10 cm this morning with respiratory variation. BP's remain on the softer side BP/s 100 - 120/50 - 60's, MAPs 65 - 72. Remains in NSR. Assessment/Plan HFrEF: ICM: NYHA Class III - ICM s/p PCI of LM, LAD and RCA on 09/26/[address] Nichole - TTE on 09/30/23 with biventricular dysfunction, EF ~ 15%, 2+ MR, mild aortic stenosis, DVI of 0.35, mean gradient of 11 - This morning appears hypervolemic, JVD 8 - 10 cm; feels more SOB, going for thoracentesis this morning - Will plan to restart PO Toresmide 10 mg daily - Will reassume Spironolactone - Consider adding Farxiga tomorrow if tolerating reyes and Losartan - He was previously intolerant to Entresto (N/V); will hold ARB today, and restart reyes and ensure BP's will tolerate. Tomorrow will consider Losartan 25 mg daily - Continue Metoprolol succinate 75 mg daily Atrial Fibrillation/ Flutter with 2:1 Block - CHADsVASC of 4 - On Eliquis 5 mg BID, Metoprolol succinate 75 mg nightly and Amio 400 mg BID; is nearly loaded with amio - Remains in NSR this morning Bilateral Pleural Effusion: - On TTE from 09/30/23 had a large > 7 cm L pleural effusion - 2 view CXR demonstrated moderate to large bilateral pleural effusions - Plan for thoracentesis today MV CAD s/p PCI w/ NORIS to LM, LAD and RCA on 09/26/23 - ASA, Plavix, Eliquis - Dr. Nichole following Medications: amiodarone, 400 mg, Oral, BID [Held by provider] apixaban, 5 mg, Oral, BID vitamin C, 500 mg, Oral, Daily aspirin, 81 mg, Oral, Daily atorvastatin, 40 mg, Oral, Daily clopidogrel, 75 mg, Oral, Daily metoprolol succinate XL, 75 mg, Oral, Nightly pantoprazole, 40 mg, Oral, qAM AC polyethylene glycol (PEG) 3350, 17 g, Oral, Daily [Held by provider] spironolactone, 12.5 mg, Oral, Daily [Held by provider] torsemide, 10 mg, Oral, Daily [Held by provider] valsartan, 40 mg, Oral, Daily Infusion Medications: Physical Examination: Vitals: 10/02/23 2156 10/02/23 2322 10/03/23 0455 10/03/23 0600 BP: 104/59 BP Location: Left arm Patient Position: Lying Pulse: 94 91 81 Resp: (!) 32 17 (!) 28 Temp: TempSrc: SpO2: 94% 98% 96% Weight: 209 lb 10.5 oz (95.1 kg) Height: Intake/Output Summary (Last 24 hours) at 10/03/2023 0659 Last data filed at 10/02/2023 2216 Gross per 24 hour Intake 53 ml Output 250 ml Net -197 ml Wt Readings from Last 3 Encounters: 10/03/23 209 lb 10.5 oz (95.1 kg) Physical Exam Vitals reviewed. Constitutional: Appearance: He is not ill-appearing. Eyes: General: No scleral icterus. Neck: Comments: JVD 8 - 10 cm Cardiovascular: Rate and Rhythm: Normal rate and regular rhythm. Pulses: Normal pulses. Heart sounds: Murmur heard. Pulmonary: Effort: No respiratory distress. Breath sounds: No rhonchi or rales. Comments: Diminished basilar breath sounds Abdominal: General: There is no distension. Palpations: Abdomen is soft. Tenderness: There is no abdominal tenderness. Musculoskeletal: Right lower leg: Edema present. Left lower leg: Edema present. Comments: Trace pitting LE edema Skin: Capillary Refill: Capillary refill takes less than 2 seconds. Neurological: General: No focal deficit present. Laboratory Tests: Recent Labs 10/01/2341810/02/23 0050 10/03/23 0136 NA 137 136 137 K 4.0 3.9 4.1 CL 104 105 105 CO2 26 23 26 BUN 31* 29* 27* CREATININE 1.05 1.12 1.19 Recent Labs 10/01/23 04110/02/23 0050 10/03/23 0136 WBC 12.2* 11.5* 13.8* HGB 10.6* 9.6* 10.5* HCT 33.6* 31.9* 34.0* MCV 96.8 97.3 98.8 PLT 451* 426 478* No results for input(s): CKTOTAL, CKMB, CKMBINDEX, TROPONINI in the last 72 hours. No results for input(s): BNP in the last 72 hours. No results for input(s): TRIG, HDL, LDLCALC, CHOL in the last 72 hours. No results found for: LDLCHOLESTER Lab Results Component Value Date TSH 2.409 09/29/2023 EF BP Date Value Ref Range Status 09/30/2023 38 (A) 55 - 100 % Final 09/25/23 TRANSTHORACIC ECHOCARDIOGRA (more content not included)...[facility]04-16-2024 Consult note* Tomasa Richter MD - 10/02/2023 10:16 PM EDTAssociated Order(s): IP CONSULT TO ORTHOPAEDIC SURGERY Images from the original note were not included. Ortho Consult Patient: Eben Cruz Date of : 1945 Acct: [id number] PCP: Iwona Stewart Date of Admission: 09/25/2023 Date of Service: Pt seen/examined on 10/02/2023 Chief Complaint: S/p L anterior hip arthroplasty 09/17 History Of Present Illness: This is a 78 y.o. male status post left anterior hip arthroplasty on 09/[address] Schreiber in [place]. Patient was transferred to [facility] for cardiac cath after surgery. This is a failed attempt therefore he was transferred to [facility] for further cardiac care. He stateshe is work with physical therapy over the past 3 days. He denies significant hip pain at this time.Denies fever and chills. Denies numbness and tingling to left lower extremity. Daughter states Dr. Schreiber's office called patient today reminding them of suture removal to the left hip. Patient ambulation status: ambulates with: walker Antiplatelets/Anticoagulation includes: ASA Hx from chart and/or Pt. daughter at bedside Past Medical History: Past Medical History: Diagnosis Date Adverse effect of anesthesia Arthritis Coronary artery disease Delayed emergence from general anesthesia Hypertension Stroke (HCC) Past Surgical History: Past Surgical History: Procedure Laterality Date CARDIAC CATHETERIZATION N/A 09/26/2023 Performed by Amos Nichole MD at [facility] Cardiac Cath/EP Lab CARDIAC CATHETERIZATION N/A 09/26/2023 Performed by Amos Nichole MD at [facility] Cardiac Cath/EP Lab HERNIA REPAIR INVASIVE VASCULAR PROCEDURE N/A 09/26/2023 Performed by Amos Nichole MD at [facility] Cardiac Cath/EP Lab JOINT REPLACEMENT both hip replacements, L shoulder Home Medications: Prior to Admission medications Medication Sig Start Date End Date Taking? Authorizing Provider amLODIPine (Norvasc) 2.5 MG tablet Take 2.5 mg by mouth daily. Historical Provider, Ascorbic Acid (vitamin C) 100 MG tablet Take 100 mg by mouth daily. Unknown dosage Historical Provider, aspirin 81 MG EC tablet Take 81 mg by mouth daily. Historical Provider, atorvastatin (Lipitor) 40 MG tablet Take 40 mg by mouth daily. Historical Provider, Calcium Carbonate-Vitamin D 500-5 MG-MCG tablet Take by mouth. Historical Provider, metoprolol succinate XL (Toprol-XL) 50 MG 24 hr tablet Take 25 mg by mouth in the morning and 25 mgin the evening. Do not crush or chew.. Historical Provider, zinc gluconate 50 MG tablet Take 50 mg by mouth daily. Historical Provider, Current Hospital Medications: Current Facility-Administered Medications: acetaminophen (Tylenol) tablet 650 mg, 650 mg, Oral, q6h PRN, 650 mg at 10/01/231947 OR acetaminophen (Tylenol) suppository 650 mg, 650 mg, Rectal, q6h PRN, Ashleigh Perkins Puliafico, PAINT TECHNICIAN - [employer] OFF[employer]ER amiodarone (Pacerone) tablet 400 mg, 400 mg, Oral, BID, Elisa Goldstein, PAINT TECHNICIAN - [employer]PL[employer] FIRST OFF[employer], 400 mg at 10/02/232037 [Held by provider] apixaban (Eliquis) tablet 5 mg, 5 mg, Oral, BID, Ashleigh B Puliafico, PAINT TECHNICIAN - [employer]PL[employer] FIRST OFF[employer], 5 mg at 10/02/23845 ascorbic acid (Vitamin C) tablet 500 mg, 500 mg, Oral, Daily, Ashleigh B Puliafico, PAINT TECHNICIAN - [employer] FIRST OFF[employer], 500 mg at 10/02/23 0846 aspirin EC tablet 81 mg, 81 mg, Oral, Daily, Ashleigh B Puliafico, PAINT TECHNICIAN - [employer] FIRST OFF[employer], 81 mg at 10/02/23 0845 atorvastatin (Lipitor) tablet 40 mg, 40 mg, Oral, Daily, Ashleigh Mccabefico, PAINT TECHNICIAN - [employer] FIRST OFF[employer]ER, 40 mg at 10/02/23 0846 clopidogrel (Plavix) tablet 75 mg, 75 mg, Oral, Daily, Ashleigh Perkins Puliafico, PAINT TECHNICIAN - [employer] FIRST OFF[employer]ER, 75 mg at 10/02/23 0845 ipratropium-albuterol (Duo-Neb) 0.5-2.5 mg/3 mL nebulizer solution 3 mL, 3 mL, Nebulization, q8h PRN, Elisa Goldstein, PAINT TECHNICIAN - [employer] FIRST OFF[employer], 3 mL at 10/02/232155 melatonin tablet 10 mg, 10 mg, Oral, Nightly PRN, Travis Crawford MD, 10 mg at 10/01/231947 metoprolol succinate XL (Toprol-XL) 24 hr tablet 75 mg, 75 mg, Oral, Nightly, Sue Emerson MD, 75 mg at 10/02/232037 naloxone (Narcan) injection 0.4 mg, 0.4 mg, IntraVENous, q5 min PRN, Amos Nichole MD pantoprazole (ProtoNix) EC tablet 40 mg, 40 mg, Oral, qAM AC, Ashleigh Zuletaiafico, PAINT TECHNICIAN - [employer] FIRST OFFICER, 40 mg at 10/01/23 0548 polyethylene glycol (PEG) 3350 (Miralax) packet 17 g, 17 g, Oral, Daily, Yajaira Thakkar, PAINT TECHNICIAN - [employer] FIRST OFF[employer]ER, 17 g at 09/29/23 0750 promethazine (Phenergan) tablet 12.5 mg, 12.5 mg, Oral, q6h PRN, Cliff Cast Jr., MD [Held by provider] spironolactone (Aldactone) tablet 12.5 mg, 12.5 mg, Oral, Daily, Elisa GoldsteinPAINT TECHNICIAN - AIRPLANE FIRST OFFICER, 12.5 mg at 09/27/23 0906 [Held by provider] torsemide (Demadex) tablet 10 mg, 10 mg, Oral, Daily, Cliff Cast Jr., MD, 10mg at 10/01/23 0757 [Held by provider] valsartan (Diovan) tablet 40 mg, 40 mg, Oral, Daily, Elisa Goldstein, PAINT TECHNICIAN - [employer] FIRST OFF[employer]ER,40 mg at 09/27/23 1045 Allergies: Entresto [sacubitril-valsartan] and Wool alcohol [lanolin] Social History: Social History Socioeconomic History Marital status: Spouse name: Not on file Number of children: Not on file Years of education: Not on file Highest education level: Not on file Occupational History Not on file Tobacco Use Smoking status: Never Smokeless tobacco: Never Vaping Use Vaping Use: Never used Substance and Sexual Activity Alcohol use: Never Drug use: Never Sexual activity: Not on file Other Topics Concern Not on file Social History Narrative Not on file Social Determinants of Health Financial Resource Strain: Not on file Food Insecurity: Not on file Transportation Needs: Not on file Physical Activity: Not on file Stress: Not on file Social Connections: Not on file Intimate Partner Violence: Not At Risk (09/25/2023) Humiliation, Afraid, Rape, and Kick questionnaire Fear of Current or Ex-Partner: No Emotionally Abused: No Physically Abused: No Sexually Abused: No Housing Stability: Not on file Family History: No family history on file. Further Family History is noncontributory to this injury. REVIEW OF SYSTEMS: Review of Systems - General ROS: negative for - chills, fatigue, fever, malaise or night sweats Psychological ROS: negative Ophthalmic ROS: negative ENT ROS: negative for - headaches or sore throat Hematological and Lymphatic ROS: negative for - bleeding problems or blood clots Respiratory ROS: no cough, shortness of breath, or wheezing Cardiovascular ROS: no chest pain. Reports Dyspnea on exertion Gastrointestinal ROS: negative Musculoskeletal ROS: See HPI Neurological ROS: negative for - bowel and bladder control changes, gait disturbance or numbness/tingling All other systems reviewed and are negative PHYSICAL EXAM: BP 122/57 Pulse 94 Temp 36.4 C (97.5 F) (Temporal) Resp (!) 32 Ht 1.778 m (5' 10) Wt 94.7 kg (208 lb 12.4 oz) SpO2 94% BMI 29.96 kg/m GENERAL APPEARANCE: Awake and oriented x3. No acute distress, except appropriate to injury. MOOD AND AFFECT: Calm appropriate to situation GAIT AND STATION: Patient is in bed and unable to ambulate secondary to known injury. COORDINATION and BALANCE: Patient is grossly coordinated unable to ambulate secondary to known injury. Lymphadenopathy: none on examination of the affected extremity(s) Right Upper Extremity: -No obvious pain or deformity to inspection with normal joint range of motion, stability, and muscle strength except noted below -No TTP over clavicle, shoulder, humerus, elbow, forearm, wrist, hand, or fingers -TTP: nontender throughout extremity -Radial pulse palpable -SILT in radial/median/ ulnar nerve distributions -Motor + AIN/PIN/ulnar nerve functions -No Lymphedema -Skin intact except where noted below -Painless pROM at shoulder/elbow/wrist Left Upper Extremity: -No obvious pain or deformity to inspection with normal joint range of motion, stability, and muscle strength except noted below -No TTP over clavicle, shoulder, humerus, elbow, forearm, wrist, hand, or fingers -TTP: nontender throughout extremity -Radial pulse palpable -SILT in radial/median/ ulnar nerve distributions -Motor + AIN/PIN/ulnar nerve functions -No Lymphedema -Skin intact except where noted below -Painless pROM at shoulder/elbow/wrist Prior anterior shoulder incision well-healed. Right Lower Extremity: -No obvious pain or deformity to inspection with normal joint range of motion, stability, and muscle strength except noted below -No TTP over pelvis, hip, thigh, knee, tibia, lateral mal, medial mal, calc, midfoot, forefoot -TTP: Nontender throughout extremity -Pulse: DP Palpable, PT Palpable -SILT in the superficial peroneal, deep peroneal, tibial, sural, saphenous nerve distributions -Motor function of quad, tibialis anterior, extensor hallucis longus, and gactrocsoleus complex intact -No Lymphedema -Skin intact except where noted below -Painless pROM at hip/knee/ankle Prior posterior hip incision well-healed. Left Lower Extremity: -No obvious pain or deformity to inspection with normal joint range of motion, stability, and muscle strength except noted below -No TTP over pelvis, hip, thigh, knee, tibia, lateral mal, medial mal, calc, midfoot, forefoot -TTP: Nontender throughout extremity -Pulse: DP Palpable, PT Palpable -SILT in the superficial peroneal, deep peroneal, tibial, sural, saphenous nerve distributions -Motor function of quad, tibialis anterior, extensor hallucis longus, and gactrocsoleus complex intact -No Lymphedema -Skin intact except where noted below -Painless pROM at hip/knee/ankle Healing anterior hip incision. There is no erythema, swelling, or warmth. The incision has well intact wound edges. Steri-Strips were placed to the distal aspect of the incision. There is no expressible discharge noted. Labs: CBC: Lab Results Component Value Date WBC 11.5 (H) 10/02/2023 RBC 3.28 (L) 10/02/2023 BMP: Lab Results Component Value Date GLUCOSE 121 (H) 10/02/2023 CO2 23 10/02/2023 BUN 29 (H) 10/02/2023 CREATININE 1.12 10/02/2023 CALCIUM 8.2 (L) 10/02/2023 PT/INR: No results found for: PT, INR, APTT Type and Screen: No results found for: RH, LABANTI CRP: Lab Results Component Value Date CRP 49.5 (H) 09/30/2023 ESR: Lab Results Component Value Date SEDRATE 65 (H) 09/30/2023 HgBA1c: No components found for: LABA1C The above labs were reviewed by me. Radiology: The below images were independently reviewed and interpreted with pertinent findings noted below. XR: Left hip-bilateral total hip arthroplasties in appropriate alignment with hardware intact. No acutefracture, deformity, or dislocations noted. Radiology reports reviewed. ASSESSMENT: 78 y.o. male status post left anterior hip arthroplasty on 09/17 at [place] PLAN: -wD/W Dr. Guzman -No acute surgical intervention -WBAT -Activity as tolerated -Ice -PT/OT as able -Neurovascular checks -Skin checks -Follow-up outpatient w/ Dr. Schreiber -Dispo per primary -Orthopaedic surgery will sign off. Please page patient consumer marketer orthopaedic resident for questions or concerns. Tomasa Richter MD PGY-2 Orthopaedic Surgery * Charlette Borrero MD - 10/01/2023 1:39 PM EDTAssociated Order(s): IP CONSULT TO CARDIOLOGY [facility] [place] [facility] Cardiology /Electrophysiology Consult Note Reason for Consult/Chief Complaint: HFrEF Referring provider: Dr. Nichole Established box sealing inspector: Dr. Paredes History of Present Illness: Eben Cruz is a 78 y.o. male known to Dr. Paredes ([place] [facility]) who has a Pmhx of HTN,HLD, recent hip replacement (09/18/23) and R parietal CVA with high grade R external carotid stenosisin 04/2023 who presented from [place] for high risk PCI after presenting there as an NSTEMI. HF team asked to see him for HFrEF and concern for low output heart failure. He underwent complex PCI on 09/26/[address] Nichole including NORIS x 3 LM, ostial LAD, and RCA. Lcx SECTIONIZER and heavily calcified without collaterals. LVEDP at the time of the [facility] was 19 mmHg. TTE performedon 09/30/23 demonstrated a moderately dilated LV with severely reduced LV EF of ~ 15%, the RV is mildly dilated with mild to moderate RV systolic dysfunction, 2+ MR and mild aortic stenosis with a DVIof 0.35. and a mean gradient of 11 mmHg. While hospitalized he has been diuresed with a rise in creatitine to 1.2 from his baseline of 0.8 and hypotension. During his stay he has been in and out of atrial fibrillation with RVR, previous converted with IV amiodarone and now back into atrial fibrillation with planned DCCV on 10/02/23. Currently spironolactone and valsartan are on hold due to hypotension. He received a dose of PO torsemide this morning. Is on Apixaban 5 mg BID as well as ASA and switching to Plavix given the addition of Apixaban for afib. On assessment Mr. Cruz is resting up in his chair. Overall reports that he feels okay, has improved during his hospitalization. At this time he has no SOB however does report that over the past fewdays has had bouts of SOB. Denies CP, nausea, vomiting, abdominal pain. Reports that he LE edema has significantly improved. Assessment/Plan HFrEF: ICM: NYHA Class III - ICM s/p PCI of LM, LAD and RCA on 09/26/[address] Nichole - TTE on 09/30/23 with biventricular dysfunction, EF ~ 15%, 2+ MR, mild aortic stenosis, DVI of 0.35, mean gradient of 11 - Today he appears dry and warm. We will plan to hold Torsemide tomorrow given his JVD of 3 - 5 cm - Hypotension precludes us from the addition of any GDMT at this time, will plan to re-evaluate tomorrow for the addition of low dose Valsartan and spironolactone. - Okay to continue BB at this time as he is warm and doesn't appear to be in a low output state MV CAD s/p PCI to LM, LAD and RCA on 09/26/23 Atrial Flutter with 2:1 Block - CHADsVASC of 4 - On Eliquis 5 mg BID and Amio 400 mg BID; is nearly loaded with amio - Plan for DCCV tomorrow; NPO at midnight Pleural Effusion: - On TTE from 09/30/23 had a large > 7 cm L pleural effusion - Will order 2 view CXR to view this pleural effusion seen on TTE, if large enough will consider thoracentesis Medications: amiodarone, 400 mg, Oral, BID apixaban, 5 mg, Oral, BID vitamin C, 500 mg, Oral, Daily aspirin, 81 mg, Oral, Daily atorvastatin, 40 mg, Oral, Daily clopidogrel, 600 mg, Oral, Once [START ON 10/02/2023] clopidogrel, 75 mg, Oral, Daily metoprolol succinate XL, 75 mg, Oral, Nightly pantoprazole, 40 mg, Oral, qAM AC polyethylene glycol (PEG) 3350, 17 g, Oral, Daily [Held by provider] spironolactone, 12.5 mg, Oral, Daily torsemide, 10 mg, Oral, Daily [Held by provider] valsartan, 40 mg, Oral, Daily Infusion Medications: Physical Examination: Vitals: 09/30/23 2214 10/01/23 0340 10/01/23 0733 10/01/23 1115 BP: 106/73 102/71 119/84 104/67 BP Location: Left arm Left arm Left arm Right arm Patient Position: Lying Lying Sitting Sitting Pulse: (!) 132 (!) 125 (!) 128 (!) 135 Resp: Temp: 36.2 C (97.2 F) 36.6 C (97.8 F) 36.2 C (97.2 F) 36.8 C (98.2 F) TempSrc: Temporal Temporal Temporal Temporal SpO2: 100% 96% 96% 97% Weight: Height: Intake/Output Summary (Last 24 hours) at 10/01/2023 1340 Last data filed at 10/01/2023 1300 Gross per 24 hour Intake -- Output 500 ml Net -500 ml Wt Readings from Last 3 Encounters: 09/30/23 191 lb (86.6 kg) Physical Exam Vitals reviewed. Constitutional: General: He is not in acute distress. Appearance: He is not ill-appearing or toxic-appearing. HENT: Mouth/Throat: Mouth: Mucous membranes are dry. Eyes: General: No scleral icterus. Neck: Comments: JVD 3 - 5 cm Cardiovascular: Rate and Rhythm: Regular rhythm. Tachycardia present. Heart sounds: Murmur heard. Pulmonary: Effort: No respiratory distress. Breath sounds: No wheezing or rales. Comments: Diminished bi basilar breath sounds Abdominal: General: Bowel sounds are normal. Palpations: Abdomen is soft. Tenderness: There is no abdominal tenderness. Musculoskeletal: Right lower leg: No edema. Left lower leg: No edema. Comments: Trace edema with bilateral compression stockings Skin: General: Skin is warm. Capillary Refill: Capillary refill takes less than 2 seconds. Neurological: General: No focal deficit present. Mental Status: He is alert. Laboratory Tests: Recent Labs 09/29/2315109/30/23 0004 10/01/239 NA 136 137 137 K 4.8 4.5 4.0 CL 106 104 104 CO2 24 26 BUN 39* 37* 31* CREATININE 0.86 1.20 1.05 EGFR 87.5 61.1 71.8 No results for input(s): CKTOTAL, CKMB, CKMBINDEX, TROPONINI in the last 72 hours. Recent Labs 09/29/2315109/30/23 0004 10/01/23 0419 WBC 12.8* 13.5* 12.2* HGB 10.5* 10.8* 10.6* HCT 33.1* 34.8* 33.6* MCV 96.2 96.1 96.8 PLT 416 482* 451* No results found for: HGBA1C Lab Results Component Value Date TSH 2.409 09/29/2023 No results found for: CHOL No results found for: HDL No results found for: LDLCALC No results found for: TRIG No results found for: CHOLHDL No results found for: LDLCHOLESTER No results for input(s): BNP in the last 72 hours. No results for input(s): INR in the last 72 hours. Results from last 7 days Lab Units 10/01/23 0419 09/30/23 0004 09/29/23 0152 AST U/L 62* 49* 75* ALT U/L 48 59* 73* No results found for: IRON, TIBC, FERRITIN Radiology: CXR: personally reviewed: from 09/29/23 -- re-ordered Cardiac Tests Personally Reviewed: Last EKG 09/25/23 ECG 12-LEAD (Preliminary) This result has not been signed. Information might be incomplete. Impression Atrial fibrillation Ventricular bigeminy Borderline repol abnormality, diffuse leads Borderline prolonged QT interval Telemetry findings: Atrial Flutter 2:1 block Reports reviewed: Last Echo 09/25/23 TRANSTHORACIC ECHOCARDIOGRAM (TTE) COMPLETE (CONTRAST/BUBBLE/3D PRN) 09/30/2023 6:33 PM (Final) Interpretation Summary Left Ventricle: Left ventricle is moderately dilated. Normal wall thickness. Severely reduced left ventricular systolic function. The EF by visual approximation is 15-20%. Severe global hypokinesis present. Right Ventricle: Right ventricle is mildly dilated. Mildly reduced systolic function. Aortic Valve: Mild to moderate stenosis of the aortic valve. AV mean gradient is 6 mmHg. AV peak gradient is 11 mmHg. LVOT:AV VTI Index is 0.35. AV area by continuity VTI is 1.1 cm2. Mitral Valve: Moderate (2+) regurgitation. Left Atrium: Left atrium is moderately dilated. Signed by: Frederick Mcclelland MD on 09/30/2023 6:33 PM Last Cath 09/25/23 CARDIAC PROCEDURE 09/26/2023 1:19 PM (Final) INVASIVE VASCULAR PROCEDURE 09/26/2023 1:19 PM (Final) Conclusion Hemodynamics LVEDP = 18 mmHg Valves Aortic Stenosis: No significant aortic valve gradient on pullback Coronary Arteriography Dominance: Right Left Main: Ostial 50% and distal 80% calcified stenosis Left Anterior Descending: Ostial and Proximal 80% calcified stenosis, vessel tapers down distally with diffuse calcified disease Diagonals: D1 is a small caliber vessel with proximal 70% diffuse lesion. D2 is moderate in size with mild diffuse disease. Left Circumflex: Ostial SECTIONIZER Right Coronary: Moderate calcified vessel with ostial 90% severely calcified lesion. Mid 30% and distal 50% calcified lesion. Right Posterior Descending: Small vessel with mild disease Right Posterolateral: Small vessel with mild disease Collaterals: None Access: Right JAVA PORTAL DEVELOPER under US and fluoroscopic guidance Coronary Intervention Patient was anticoagulated with IV heparin with therapeutic ACT maintained. Patient was already on DAPT. The right coronary artery was cannulated with a 7 [place] HS 2 guide catheter. A Hi Torque floppy guidewire was advanced across the ostial RCA stenosis and positioned into the distal vessel. IVUSimaging was performed. The lesion was predilated with a 3.0 x 20 mm NC balloon. Next, Intravascularlithotripsy was performed with a 3.5 x 12 mm shockwave balloon. This was followed by treatment of the lesion with a 3.5 x 15 mm [place] cutting balloon. Finally the lesion was stented with a 3.5 x 28 mm Xience NORIS. Follow-up IVUS imaging showed good stent apposition with no edge dissection. Finalangiogram showed 0% residual stenosis with REGI-3 flow. Next, we turned our attention to the left coronary system. The left main coronary artery was cannulated with a 6Fr EBU 3.5 guide catheter. A Ivan blue guidewire was advanced across the distal left main, proximal LAD stenosis and positioned into the distal vessel. IVUS imaging was performed. Intravascular lithotripsy was performed with a 3.0 x 12 mm shockwave ballloon. This was followed by treatment of the lesion with a 3.25 x 15 mm [place] cutting balloon. Finally the lesion was stented with a 3.25 x 33 mm Xience NORIS. The stent was then post dilated with a 3.5 x 20 mm NC balloon. The ostialto proximal left main portion of the stent was dilated with a 4.0 x12 mm NC balloon. Final angiogram showed 0% residual stenosis with REGI-3 flow. Complications None Conclusions Mildly elevated LVEDP 18 mmHG Severe calcified left main( ostial 50%, distal 80%) stenosis Severe calcified proximal LAD( 80%) stenosis Small D1 with proximal 70% lesion Ostial LCX SECTIONIZER heavily calcified with no collaterals Severely calcified ostial RCA(90%) lesion, mid(30%) and distal RCA(50%) Successful IVUS guided Intravascular Lithotripsy and NORIS of ostial RCA. Successful IVUS guided Intravascular Lithotripsy and NORIS of LMCA. Successful IVUS guided Intravascular Lithotripsy and NORIS of ostial and proximal LAD. Plan DAPT for at least 1 year and ocean transportation intermediary if tolerates. Single antiplatelet lifelong High intensity statin Aggressive risk factor modification Optimal GDMT for ischemic cardiomyopathy Remove right femoral arterial sheath once ACT is less than 160 seconds. Patient to lay supine for 6hrs post sheath removal. Signed by: Amos Nichole MD on 09/26/2023 1:19 PM Last Stress Test No results found for this or any previous visit. Last EP study No results found for this or any previous visit. EF BP Date Value Ref Range Status 09/30/2023 38 (A) 55 - 100 % Final Christopher Salcedo DO DATE of SERVICE: 10/01/2023 I, Dr. Borrero, saw and evaluated the patient. I personally obtained the morrow and critical portions of the history and physical exam. I reviewed the chart, the fellow's documentation, and discussed the patient with the fellow. I agree with the fellow's medical decision making and have edited the note to reflect my clinical findings and my assessment and plan. Patient is euvolemic/dry on exam. Echocardiogram done yesterday showed a large left pleural effusion. Blood pressure is borderline low. Patient feels dizzy, lightheaded. -Recommend to hold the diuretics for now -Recommend left thoracocentesis -After thoracentesis can be cardioverted -Will uptitrate GDMTs when blood pressure improves * Yajaira Thakkar APRN - AIRPLANE FIRST OFFICER - 09/28/2023 8:22 AM EDTAssociated Order(s): IP CONSULT TO PALLIATIVE CARE Images from the original note were not included. Palliative Care Initial Consult Chief Complaint: Eben Cruz is a 78 y.o. male with chief complaint of shortness of breath. Palliative Care provider will follow-up on 10/01/23. 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 - without LW and HCPOA, education what for and how helpful - discussed code status, he is not sure what he would want done in event of CP arrest, discussed code in detail, he would like to talk with family as well - will continue to follow for ongoing monitoring of progression of Anorexia - will continue to evaluate test results related to NSTEMI , medication effectiveness for Anorexia,response to treatment of NSTEMI - return next week Total of 65 minutes spent on this encounter including Chart review, Patient visit and exam, Documentation in EHR, Care coordination, Communicating with primary attending or other consultants, and Counseling and educating patient/family/caregiver. Discharge planning: Not ready for discharge due to medical instability Patient meets criteria for general inpatient hospice care including the following: N/A - PalliativeCare Patient Referrals to: None Discussed patient and the plan of care with the other interdisciplinary team (IDT) members of Palliative Care Team, and with Primary Attending, Patient, and Floor Nurse Insert attestation statement here if applicable (.disupervision) or (.npattest) I have discussed the patient's case and plan of care with my collaborating physician Dr. Arevalo Subjective: Hospital days prior to consult: 2 Trauma Consult: no. (If yes, please add .traumapall dotphrase for tracking purposes.) Subjective/Events Eben Cruz is a 78 y.o. 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 PMHx includes: HTN, HLD, partial R CVA. At [facility] for L total hip replacement but complicated by requirement of wound vac, was at SNF. transferred to [facility] for cardiology NSTEMI, transferred to [facility] for PCI. Family called with stating he needs to be DNR but he is oriented, palliative care consulted for goals of care Patient awake in bed in NAD, admits to LLE pain, no CP, abdominal pain, breathing improved, no nausea, vomiting, reduced appetite, not sleeping well, BM yesterday small Pain Assessment (If Pain Scale >0) Description: dull Nonverbal patients: Restlessness Duration: day(s) Frequency:Daily Location: LLE, intermittent Alleviating Factors: pain medication Exacerbating Factors: unable to associate with any factor Effect:N/A Goals of care:Continue Current Management Functional Assessment: PPS: 80% Advance Directives: Full Code Surrogate: Child Prognosis: unknown Spiritual assessment: No spiritual distress identified Bereavement and grief: Grief Issues Not Identified Past Medical History: Diagnosis Date Adverse effect of anesthesia Arthritis Coronary artery disease Delayed emergence from general anesthesia Hypertension Stroke (HCC) Past Surgical History: Procedure Laterality Date CARDIAC CATHETERIZATION N/A 09/26/2023 Performed by Amos Nichole MD at [facility] Cardiac Cath/EP Lab CARDIAC CATHETERIZATION N/A 09/26/2023 Performed by Amos Nichole MD at [facility] Cardiac Cath/EP Lab HERNIA REPAIR INVASIVE VASCULAR PROCEDURE N/A 09/26/2023 Performed by Amos Nichole MD at [facility] Cardiac Cath/EP Lab JOINT REPLACEMENT both hip replacements, L shoulder No family history on file. Unable to obtain family history due to parents have Allergies Allergen Reactions Entresto [Sacubitril-Valsartan] Nausea And Vomiting Wool Alcohol [Lanolin] Review of Systems ROS: See palliative care ROS/ESAS below; All other systems were reviewed and are negative. [place] Symptom Assessment Score [place] Score Pain Score 5 Tiredness Score 0 Nausea Score 0 Depression Score 0 Anxiety Score 0 Drowsiness Score 0 Anorexia Score (0= eating well, 10= not eating) 5 Wellbeing Score (10= worst sense of well-being) 0 Constipation 2 Dyspnea Score (0= no shortness of breath) 2 FLACC Scale (For Pain Assessment of the Non-Verbal Patient) Patient is verbal Assessed by: patient and provider. 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 As above, will be ongoing Family Meeting: Participants: patient Family meeting was held to discuss:Goals of Care and Symptom Management Objective: Physical Exam BP 97/63 Pulse 92 Temp (!) 35.9 C (96.6 F) (Tympanic) Resp 22 Wt 206 lb 12.8 oz (93.8 kg) SpO2 97% Physical Exam Vitals and nursing note reviewed. HENT: Head: Normocephalic and atraumatic. Nose: Nose normal. Mouth/Throat: Mouth: Mucous membranes are moist. Eyes: General: Right eye: No discharge. Left eye: No discharge. Pupils: Pupils are equal, round, and reactive to light. Cardiovascular: Rate and Rhythm: Normal rate. Rhythm irregular. Pulses: Normal pulses. Heart sounds: Normal heart sounds. No murmur heard. Comments: No edema B post tib/dorsalis pedis palpable Pulmonary: Effort: Pulmonary effort is normal. Breath sounds: Normal breath sounds. Abdominal: General: Bowel sounds are normal. There is no distension. Palpations: Abdomen is soft. There is no mass. Genitourinary: Comments: continent Musculoskeletal: Cervical back: Normal range of motion and neck supple. Right lower leg: No edema. Left lower leg: No edema. Skin: General: Skin is warm and dry. Comments: fragile Neurological: General: No focal deficit present. Mental Status: He is alert and oriented to person, place, and time. Psychiatric: Mood and Affect: Mood normal. Behavior: Behavior normal. Behavior is cooperative. Comments: No agitation Current Medications: Inpatient medications reviewed: yes Home medications reviewed: yes OARRS Reviewed: Yes-oxycodone 5mg #28(7D) filled 05/2023, all other prior to this 24 Hour PRN Meds: melatonin times 1 Results/Verification of Data Review Objective data reviewed (be specific which labs, imaging reports with dates reviewed): MAR/vitals/labs reviewed 09/28/23 Data in Support of Terminal Illness: Is patient hospice appropriate? TBD Transition Note Initiated: yes. * Leonie Zen Moe, MELISSA - GELY - 09/27/2023 9:40 AM EDTAssociated Order(s): IP WOUND CARE NURSE CONSULT TO EVAL Images from the original note were not included. [facility] Wound Care CONSULT Note Eben Cruz AGE: 78 y.o. GENDER: male : 1945 Subjective: HISTORY of PRESENT ILLNESS HPI Eben Cruz is a 78 y.o. male who presents for a wound consult. HPI: Eben Cruz is a 78 y.o. 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 He is known to [facility] outpatient. Had LHCin 2013 with non-obstructive CAD (per pt). NST 06/21/22 showed preserved EF, no ischemia. On 09/18/23, had total left hip replacement surgery at [facility]. Had complicated course requiringwound vac. Discharged to [facility] (SNF). Wound Care consulted for left hip wound. Patient states he had a hip replacement surgery on 09/18/23 at [facility]. RN at bedside and states he admitted with a Prevena to left hip- statesit was removed yesterday. PAST MEDICAL HISTORY Past Medical History: Diagnosis Date Adverse effect of anesthesia Arthritis Coronary artery disease Delayed emergence from general anesthesia Hypertension Stroke (HCC) PAST SURGICAL HISTORY Past Surgical History: Procedure Laterality Date CARDIAC CATHETERIZATION N/A 09/26/2023 Performed by Amos Nichole MD at [facility] Cardiac Cath/EP Lab CARDIAC CATHETERIZATION N/A 09/26/2023 Performed by Amos Nichole MD at [facility] Cardiac Cath/EP Lab HERNIA REPAIR INVASIVE VASCULAR PROCEDURE N/A 09/26/2023 Performed by Amos Nichole MD at [facility] Cardiac Cath/EP Lab JOINT REPLACEMENT both hip replacements, L shoulder FAMILY HISTORY No family history on file. SOCIAL HISTORY Social History Tobacco Use Smoking status: Never Smokeless tobacco: Never Vaping Use Vaping Use: Never used Substance Use Topics Alcohol use: Never Drug use: Never ALLERGIES Allergies Allergen Reactions Entresto [Sacubitril-Valsartan] Nausea And Vomiting Wool Alcohol [Lanolin] MEDICATIONS No current facility-administered medications on file prior to encounter. Current Outpatient Medications on File Prior to Encounter Medication Sig Dispense Refill amLODIPine (Norvasc) 2.5 MG tablet Take 2.5 mg by mouth daily. Ascorbic Acid (vitamin C) 100 MG tablet Take 100 mg by mouth daily. Unknown dosage aspirin 81 MG EC tablet Take 81 mg by mouth daily. atorvastatin (Lipitor) 40 MG tablet Take 40 mg by mouth daily. Calcium Carbonate-Vitamin D 500-5 MG-MCG tablet Take by mouth. metoprolol succinate XL (Toprol-XL) 50 MG 24 hr tablet Take 25 mg by mouth in the morning and 25 mgin the evening. Do not crush or chew.. zinc gluconate 50 MG tablet Take 50 mg by mouth daily. REVIEW OF SYSTEMS Pertinent items are noted in HPI. Objective: BP 123/82 Pulse (!) 125 Temp (!) 35.4 C (95.8 F) Resp 19 Wt 93.8 kg (206 lb 12.8 oz) SpO2 94% PHYSICAL EXAM General appearance: in no apparent distress, alert, and oriented times 3 Skin: warm and dry Pulmonary: Normal effort, no respiratory distress, no cyanosis. Nasal cannula Extremities: no cyanosis, clubbing or edema- KIRIT hose in place Left hip: Incision well approximated. Sutures in place. No drainage noted. Periwound with scatteredblistering noted. LABS CBC: Lab Results Component Value Date WBC 12.9 (H) 09/27/2023 HGB 10.2 (L) 09/27/2023 HGB 10.8 09/26/2023 HCT 32.4 (L) 09/27/2023 MCV 96.1 09/27/2023 PLT 355 09/27/2023 BMP: Lab Results Component Value Date NA 138 09/27/2023 K 4.3 09/27/2023 CL 105 09/27/2023 CO2 22 09/27/2023 PHOS 4.7 (H) 09/27/2023 BUN 40 (H) 09/27/2023 CREATININE 0.91 09/27/2023 PT/INR: No results found for: PROTIME, INR Prealbumin: No results found for: PREALBUMIN Albumin:No components found for: LABALBU Sed Rate:No results found for: SEDRATE Micro: No components found for: BC Assessment/Plan: Left hip: surgical -leave NEAL -follow up with surgeon when discharged Nutritional support Wound Care to follow Recommend to follow up at [facility] wound care center after hospital discharge. Any questions or concerns please secure chat [facility] wound/ostomy. Thank you for the consult! I personally obtained the morrow and critical portions of the history and physical exam. I reviewed the labs, imaging studies, and electronic medical record. I reviewed the chart documentation and discussed the patient with treatment team members. I have edited the note to reflect my clinical findingsand my assessment and plan. Please note, the time of this note does not reflect the time I saw thispatient today, but the time of this documentaton. Portions of this note including HPI, ROS, impression/plan, and examination may have been copied forward from admission to today as to provide important historical information essential in contributing to medical decision making. Documentation has been reviewed and edited as necessary to support clinical decision making for today's visit and to reflect my own independent evaluation of this patient. Decision making for today's visit and to reflectmy own independent evaluation of this patient. * Maryanne Romero - 09/26/2023 2:21 PM EDTAssociated Order(s): IP CONSULT TO CARDIAC REHAB; IP CONSULT TO CARDIAC REHAB Received referral and reviewed chart. Phase II Cardiac Rehab Referral discussed with Eben Cruz. Patient prefers cardiac rehab at [facility]. Given information on cardiac rehab at preferred location. documented in this [facility]04-16-2024 NotePatient: Eben Cruz Procedure Summary Date: 10/02/23 Room / Location: [facility] Cath/EP Lab Anesthesia Start: 1220 Anesthesia Stop: 1250 Procedure: CARDIOVERSION EXTERNAL Diagnosis: Persistent atrial fibrillation (HCC) Scheduled Providers: Jefry Fleming MD Responsible Provider: Delmis Geller MD Anesthesia Type: TIVA ASA Status: 3 Anesthesia Type: TIVA Vitals Value Taken Time BP 93/66 10/02/23 1251 Temp 97 10/02/23 1251 Pulse 80 10/02/23 1251 Resp 21 10/02/23 1251 SpO2 100 10/02/23 1251 Anesthesia Post Evaluation Patient location during evaluation: PACU Patient participation: complete - patient participated Level of consciousness: awake and alert Pain management: satisfactory to patient Airway patency: patent Dental Injury: no Cardiovascular status: acceptable, blood pressure returned to baseline and hemodynamically stable Respiratory status: acceptable, spontaneous ventilation and face mask Hydration status: euvolemic Nausea/Vomiting: controlled There were no known notable events for this encounter. Patient can be discharged once all PACU criteria has been met.[facility] [id number] NotePatient: Eben Vines Deibel Procedure Summary Date: 10/02/23 Room / Location: [facility] Cath/EP Lab Anesthesia Start: 1220 Anesthesia Stop: 1250 Procedure: CARDIOVERSION EXTERNAL Diagnosis: Persistent atrial fibrillation (HCC) Scheduled Providers: Jefry Fleming MD Responsible Provider: Delmis Geller MD Anesthesia Type: TIVA ASA Status: 3 Anesthesia Type: TIVA Vitals Value Taken Time BP 93/66 10/02/23 1251 Temp 97 10/02/23 1251 Pulse 80 10/02/23 1251 Resp 21 10/02/23 1251 SpO2 100 10/02/23 1251 Anesthesia Post Evaluation Patient location during evaluation: PACU Patient participation: complete - patient participated Level of consciousness: awake and alert Pain management: satisfactory to patient Multimodal analgesia pain management approach Airway patency: patent Two or more strategies used to mitigate risk of obstructive sleep apnea Cardiovascular status: acceptable and hemodynamically stable Respiratory status: acceptable and face mask Hydration status: acceptable There were no known notable events for this encounter. MIPS #[id number] PONV Patient did not receive an inhalational anesthetic ([id number]) MIPS # 424 Perioperative Temperature Management Anesthesia time was less than 60 minutes (4256F) MIPS #477 Multimodal Pain Management Not emergent case Patient was not administered multimodal pain management (G2149) Patient reports no pain in PACU (G2149) [facility] #404 Anesthesiology Smoking Abstinence The patient is not a current smoker (e.g. cigarette, cigar, pipe, e-cigarette/vaping/marijuana) If no stop here (XX404) I completed my handoff to the receiving clinician during which we: 1. Identified the patient 2. Identified the responsible provider 3. Reviewed the pertinent medical history 4. Discussed the surgical course 5. Reviewed intra-op anesthesia management and issues during anesthesia 6. Set expectations for post-procedure period 7. 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) Past Medical History: Past Medical History: No date: Adverse effect of anesthesia No date: Arthritis No date: Coronary artery disease No date: Delayed emergence from general anesthesia No date: Hypertension No date: Stroke (HCC) Past Surgical History: Past Surgical History: 09/26/2023: CARDIAC CATHETERIZATION; N/A Comment: Performed by Amos Nichole MD at [facility] Cardiac Cath/EP Lab 09/26/2023: CARDIAC CATHETERIZATION; N/A Comment: Performed by Amos Nichole MD at [facility] Cardiac Cath/EP Lab No date: HERNIA REPAIR 09/26/2023: INVASIVE VASCULAR PROCEDURE; N/A Comment: Performed by Amos Nichole MD at [facility] Cardiac Cath/EP Lab No date: JOINT REPLACEMENT Comment: both hip replacements, L shoulder Social History: TOBACCO: reports that he has never smoked. He has never used smokeless tobacco. ETOH: reports no history of alcohol use. Social History Substance and Sexual Activity Drug Use Never Family History: No family history on file. Screening: unknown Clinical information reviewed: Physical Exam Airway Mallampati: II TM distance: >3 FB Neck ROM: full Mouth Open: normal Cardiovascular Dental dentition normal Pulmonary Abdominal Anesthesia Plan patient is NPO appropriate Any family history or previous problems with anesthesia ASA 3 TIVA The patient is not a current smoker. Anesthetic plan and risks discussed with patient. ANIYAH Screening Labs: Lab Results Component Value Date WBC 11.5 (H) 10/02/2023 HGB 9.6 (L) 10/02/2023 HCT 31.9 (L) 10/02/2023 MCV 97.3 10/02/2023 PLT 426 10/02/2023 Lab Results Component Value Date NA 136 10/02/2023 K 3.9 10/02/2023 CL 105 10/02/2023 CO2 23 10/02/2023 BUN 29 (H) 10/02/2023 CREATININE 1.12 10/02/2023 GLUCOSE 121 (H) 10/02/2023 CALCIUM 8.2 (L) 10/02/2023 PROT 6.2 (L) 10/02/2023 ALKPHOS 96 10/02/2023 AST 32 10/02/2023 ALT 38 10/02/2023 EGFR 66.4 10/02/2023 Transthoracic echocardiogram (TTE) complete with contrast, bubble, strain, and 3D PRN Result Date: 09/30/2023 Left Ventricle: Left ventricle is moderately dilated. Normal wall thickness. Severely reduced left ventricular systolic function. The EF by visual approximation is 15-20%. Severe global hypokinesis present. Right Ventricle: Right ventricle is mildly dilated. Mildly reduced systolic function. Aortic Valve: Mild to moderate stenosis of the aortic valve. AV mean gradient is 6 mmHg. AV peak gradient is 11 mmHg. LVOT:AV VTI Index is 0.35. AV area by continuity VTI is 1.1 cm2. Mitral Valve: Moderate (2+) regurgitation. Left Atrium: Left atrium is moderately dilated. 09/25/23 ECG 12-LEAD (Preliminary) This result has not been signed. Information might be incomplete. Impression Atrial flutter with predominant 2:1 AV block Nonspecific repol abnormality, diffuse [facility] [id number] [facility] Wound Care Progress Note Eben Cruz AGE: 78 y.o. GENDER: male : 1945 Subjective: HISTORY of PRESENT ILLNESS HPI Eben Cruz is a 78 y.o. male who presents for a wound care follow up. HPI: Eben Cruz is a 78 y.o. 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 He is known to [facility] outpatient. Had [facility] in 2013 with non-obstructive CAD (per pt). NST 06/21/22 showed preserved EF, no ischemia. On 09/18/23, had total left hip replacement surgery at [facility]. Had complicated course requiring wound vac. Discharged to [facility] (SNF). Wound Care consulted for left hip wound. Patient states he had a hip replacement surgery on 09/18/23 at [facility]. Patient sitting up in chair. Family at bedside. PAST MEDICAL HISTORY Past Medical History: Diagnosis Date Adverse effect of anesthesia Arthritis Coronary artery disease Delayed emergence from general anesthesia Hypertension Stroke (HCC) PAST SURGICAL HISTORY Past Surgical History: Procedure Laterality Date CARDIAC CATHETERIZATION N/A 09/26/2023 Performed by Amos Nichole MD at [facility] Cardiac Cath/EP Lab CARDIAC CATHETERIZATION N/A 09/26/2023 Performed by Amos Nichole MD at [facility] Cardiac Cath/EP Lab HERNIA REPAIR INVASIVE VASCULAR PROCEDURE N/A 09/26/2023 Performed by Amos Nichole MD at [facility] Cardiac Cath/EP Lab JOINT REPLACEMENT both hip replacements, L shoulder FAMILY HISTORY No family history on file. SOCIAL HISTORY Social History Tobacco Use Smoking status: Never Smokeless tobacco: Never Vaping Use Vaping Use: Never used Substance Use Topics Alcohol use: Never Drug use: Never ALLERGIES Allergies Allergen Reactions Entresto [Sacubitril-Valsartan] Nausea And Vomiting Wool Alcohol [Lanolin] MEDICATIONS No current facility-administered medications on file prior to encounter. Current Outpatient Medications on File Prior to Encounter Medication Sig Dispense Refill amLODIPine (Norvasc) 2.5 MG tablet Take 2.5 mg by mouth daily. Ascorbic Acid (vitamin C) 100 MG tablet Take 100 mg by mouth daily. Unknown dosage aspirin 81 MG EC tablet Take 81 mg by mouth daily. atorvastatin (Lipitor) 40 MG tablet Take 40 mg by mouth daily. Calcium Carbonate-Vitamin D 500-5 MG-MCG tablet Take by mouth. metoprolol succinate XL (Toprol-XL) 50 MG 24 hr tablet Take 25 mg by mouth in the morning and 25 mg in the evening. Do not crush or chew.. zinc gluconate 50 MG tablet Take 50 mg by mouth daily. REVIEW OF SYSTEMS Pertinent items are noted in HPI. Objective: BP 91/65 (BP Location: Left arm, Patient Position: Sitting) Pulse 120 Temp 36.4 ?C (97.5 ?F) (Temporal) Resp 19 Ht 1.778 m (5' 10) Wt 94.7 kg (208 lb 12.4 oz) SpO2 98% BMI 29.96 kg/m? PHYSICAL EXAM General appearance: in no apparent distress, alert, and oriented times 3 Skin: warm and dry Pulmonary: Normal effort, no respiratory distress, no cyanosis. Nasal cannula Extremities: no cyanosis, clubbing or edema- KIRIT hose in place Left hip: Incision well approximated. Sutures in place. No drainage noted. Periwound with scattered scabbing noted. LABS CBC: Lab Results Component Value Date WBC 11.5 (H) 10/02/2023 HGB 9.6 (L) 10/02/2023 HCT 31.9 (L) 10/02/2023 MCV 97.3 10/02/2023 PLT 426 10/02/2023 BMP: Lab Results Component Value Date NA 136 10/02/2023 K 3.9 10/02/2023 CL 105 10/02/2023 CO2 23 10/02/2023 PHOS 4.7 (H) 10/02/2023 BUN 29 (H) 10/02/2023 CREATININE 1.12 10/02/2023 PT/INR: No results found for: PROTIME, INR Prealbumin: No results found for: PREALBUMIN Albumin:No components found for: LABALBU Sed Rate: Lab Results Component Value Date SEDRATE 65 (H) 09/30/2023 Micro: No components found for: BC Assessment/Plan: Left hip: surgical -leave [employer]AC[employer]DER -follow up with surgeon when discharged Nutritional support Wound Care to follow Recommend to follow up at [facility] wound care center after hospital discharge. Any questions or concerns please secure chat [facility] wound/ostomy. Thank you for the consult! I personally obtained the morrow and critical portions of the history and physical exam. I reviewed the labs, imaging studies, and electronic medical record. I reviewed the chart documentation and discussed the patient with treatment team members. I have edited the note to reflect my clinical findings and my assessment and plan. Please note, the time of this note does not reflect the time I saw this patient today, but the time of this documentaton. Portions of this note including HPI, ROS, impression/plan, and examination may have been copied forward from admission to today as to provide important historical information essential in contributing to medical decision making. Documentation has been reviewed and e (more content not included)...[facility] 10-02-2023 [facility] [place] [facility] Cardiology /Electrophysiology Progress Note HPI / Interval History: Mr. Cruz is a 78 YO M known to Dr. Paredes ([facility]) who has a Pmhx of HTN, HLD, recent hip replacement (09/18/23) and R parietal CVA with high grade R external carotid stenosis in 04/2023 who presented from [facility] for high risk PCI. Dr. Nichole performed PCI on 09/26/23 with NORIS x 3 to LM, LAD, and RCA. After his PCI, he was in decompensated HF and went into afib/aflutter. HF team asked to see him for HFrEF and concern for low output heart failure. This morning is resting in bed, reports that he feels about the same as yesterday. On telemetry this morning appears to be in AFIB. Discussed plan for DCCV today. Reviewed his CXR completed on 10/01/23 demonstrating bilateral pleural effusions w/o pulmonary edema. On exam this morning remains euvolemic to dry. JVD is 3 - 5 cm at the level of the clavicle with respiratory variation while laying at ~ 30 degrees. Trace pitting bilateral LE edema. Remains warm. Discussed with Dr. Nichole, will plan for DCCV today and possible thoracentesis tomorrow. Assessment/Plan HFrEF: ICM: NYHA Class III - ICM s/p PCI of LM, LAD and RCA on 09/26/[address] Nichole - TTE on 09/30/23 with biventricular dysfunction, EF ~ 15%, 2+ MR, mild aortic stenosis, DVI of 0.35, mean gradient of 11 - This morning appears dry to euvolemic still; JVD ~ 5 cm, trace LE pitting edema. - Plan to hold diuresis today - BP's remain soft, he is warm on exam - Continue to hold PO afterload reduction given hypotension - Believe his BP's will improve if we can get back into NSR and will accumulation of some fluid - Discussed with Dr. Nichole this morning, agrees with volume assessment and plan to hold diuresis today. Will go for DCCV today and thoracentesis tomorrow - HF will continue to follow Atrial Fibrillation/ Flutter with 2:1 Block - CHADsVASC of 4 - On Eliquis 5 mg BID, Metoprolol succinate 75 mg nightly and Amio 400 mg BID; is nearly loaded with amio - Plan for DCCV today Bilateral Pleural Effusion: - On TTE from 09/30/23 had a large > 7 cm L pleural effusion - 2 view CXR demonstrated moderate to large bilateral pleural effusions - Will plan for DCCV today and tonight hold Eliquis with planned Thoracentesis on 10/03/23 MV CAD s/p PCI to LM, LAD and RCA on 09/26/23 Medications: amiodarone, 400 mg, Oral, BID apixaban, 5 mg, Oral, BID vitamin C, 500 mg, Oral, Daily aspirin, 81 mg, Oral, Daily atorvastatin, 40 mg, Oral, Daily clopidogrel, 75 mg, Oral, Daily metoprolol succinate XL, 75 mg, Oral, Nightly pantoprazole, 40 mg, Oral, qAM AC polyethylene glycol (PEG) 3350, 17 g, Oral, Daily [Held by provider] spironolactone, 12.5 mg, Oral, Daily [Held by provider] torsemide, 10 mg, Oral, Daily [Held by provider] valsartan, 40 mg, Oral, Daily Infusion Medications: Physical Examination: Vitals: 10/01/23 1939 10/01/23 2335 10/02/23 0353 10/02/23 0600 BP: 103/67 92/65 91/64 BP Location: Left arm Left arm Left arm Patient Position: Lying Lying Lying Pulse: (!) 129 74 (!) 123 Resp: 20 18 Temp: 36.3 ?C (97.4 ?F) 36.5 ?C (97.7 ?F) 36.4 ?C (97.6 ?F) TempSrc: Temporal Temporal Temporal SpO2: 99% 94% 98% Weight: 208 lb 12.4 oz (94.7 kg) Height: Intake/Output Summary (Last 24 hours) at 10/02/2023 0706 Last data filed at 10/02/2023 0631 Gross per 24 hour Intake 100 ml Output 940 ml Net -840 ml Wt Readings from Last 3 Encounters: 10/02/23 208 lb 12.4 oz (94.7 kg) Physical Exam Vitals reviewed. Constitutional: Appearance: He is not ill-appearing. Eyes: General: No scleral icterus. Neck: Comments: JVD 3 - 5 cm Cardiovascular: Rate and Rhythm: Tachycardia present. Rhythm irregular. Pulses: Normal pulses. Heart sounds: Murmur heard. Pulmonary: Effort: No respiratory distress. Breath sounds: No rhonchi or rales. Comments: Diminished basilar breath sounds Abdominal: General: There is no distension. Palpations: Abdomen is soft. Tenderness: There is no abdominal tenderness. Musculoskeletal: Right lower leg: Edema present. Left lower leg: Edema present. Comments: Trace pitting LE edema Skin: Capillary Refill: Capillary refill takes less than 2 seconds. Neurological: General: No focal deficit present. Laboratory Tests: Recent Labs 09/30/23 0004 10/01/23 0419 10/02/23 0050 NA 137 137 136 K 4.5 4.0 3.9 CL 104 104 105 CO2 24 26 23 BUN 37* 31* 29* CREATININE 1.20 1.05 1.12 Recent Labs 09/30/23 0004 10/01/23 0419 10/02/23 0050 WBC 13.5* 12.2* 11.5* HGB 10.8* 10.6* 9.6* HCT 34.8* 33.6* 31.9* MCV 96.1 96.8 97.3 PLT 482* 451* 426 No results for input(s): CKTOTAL, CKMB, CKMBINDEX, TROPONINI in the last 72 hours. No results for input(s): BNP in the last 72 hours. No results for input(s): TRIG, HDL, LDLCALC, CHOL in the last 72 hours. No results found fo (more content not included)...[facility] 10-02-2023 [facility] [place] [facility] Cardiology /Electrophysiology Progress Note HPI / Interval History: Mr. Cruz reports not feeling well. Doesn't sleep well and has chronic back discomfort. SOB unchanged, occ PND. Denies CP, orthopnea, palpitations, dizziness, syncope, bleeding, BINGHAM, or edema. Sitting up in chair. Family at bedside. Awaiting DCC at noon today. S/p DCC at noon. Hr 80 SR. Lying flat. Denies CP or dyspnea. Chief Complaint: CAD Assessment/Plan HF NYHA Class [] I [] II [x] III [] IV CAD/NSTEMI s/p IVL with NORIS to LMCA, ostial RCA, ostial and prox LAD 09/26/23 - Stable. Denies CP. SOB unchanged. On triple therapy with ASA/clopidogrel/apixaban. At discharge, will stop ASA and continue clopidogrel and apixaban. Continue metopolol succinate and atorvastatin. Refer to cardiac rehab outpt once stable from hip standpoint. Doing well. Continue ASA & Clopidogrel. Stop Apixaban. Get bilateral decubital XR. Plan for bilateral horacentesis of fluid layers tomorrow then restart Apixaban. Stop ASA at time of discharge. HFrEF 25%/CM - Stable. Appears euvolemic. Wt up 17lbs (unsure if accurate). I/O -840cc/24 hrs (unsure if ccurate as PO is only 100cc). Creat 1.12. On metoprolol succinate. Currently holding torsemide/valsartan/spironolactone due to hypotension. Consulted advanced HF and they recommend to hold diuresis and PO afterload reduction for now. Appreciate input from HF Service AFib/AFlutter/MAT/PVCs/SVT - He was started on amiodarone drip and converted to SR with frequent PVCs, PACs. On amiodarone 400 mg bid until he goes home, then decrease to 400 mg daily for 1 month, then decrease to 200 mg daily. TSH normal, LFTs improving. Continue apixaban 5 mg bid for CHADS2-VASC score of 6. Continue p.o. amiodarone, continue apixaban. Sunday, BB increased. HR remains elevated 110-130s, asymptomatic. Plan for DCC today. If does not stay in SR then consult EP. Back in SR following cardioversion. On Amio 400 BID. On discharge reduce to 400 every day x 1 month then drop to 200 daily. Pleural effusion - Echo 09/29 showed large >7cm L pleural effusion. CXR showed large bilateral pleural effusions. Dr. Nichole recommends to hold apixaban tonight and tomorrow morning and then plan for bilateral thoracentesis tomorrow. UTI (uncomplicated) - Resolved.Received C&S results from [place], +ecoli in urine. Sensitive to cephalosporins. Continue Rocephin for 5 days today (last dose on Sunday). Ceftriaxone completed on 09/29/2023. No further antibiotics needed. Hx CVA - With right ECA stenosis. Continue DAPT and atorvastatin. Hypocalcemia/Hypokalemia - Resolved. K+ 3.9 today. Recent left hip fracture s/p left hip arthroplasty 09/18/23 - Has sutures in place. I d/w family who have been in contact with surgeon and he wants sutures to remain in place for at least 2 weeks. Will need SNF upon discharge. HLD - LDL 39. Continue atorvastatin. HTN - BP 90-110/60-80s. Debility - PT/OT recommending SNF, awaiting acceptance. Goals of care - Palliative following. Remains Full Code and their note states he wishes to continue medical treatments at this time Will d/w Dr. Nichole Medications: amiodarone, 400 mg, Oral, BID [Held by provider] apixaban, 5 mg, Oral, BID vitamin C, 500 mg, Oral, Daily aspirin, 81 mg, Oral, Daily atorvastatin, 40 mg, Oral, Daily clopidogrel, 75 mg, Oral, Daily metoprolol succinate XL, 75 mg, Oral, Nightly pantoprazole, 40 mg, Oral, qAM AC polyethylene glycol (PEG) 3350, 17 g, Oral, Daily [Held by provider] spironolactone, 12.5 mg, Oral, Daily [Held by provider] torsemide, 10 mg, Oral, Daily [Held by provider] valsartan, 40 mg, Oral, Daily Infusion Medications: Physical Examination: Vitals: 10/02/23 0600 10/02/23 0732 10/02/23 1052 10/02/23 1330 BP: 91/65 101/65 142/62 BP Location: Left arm Left arm Patient Position: Sitting Sitting Pulse: 120 (!) 128 85 Resp: 19 (!) 26 22 Temp: 36.4 ?C (97.5 ?F) 36.6 ?C (97.8 ?F) TempSrc: Temporal Temporal SpO2: 98% 100% 96% Weight: 208 lb 12.4 oz (94.7 kg) Height: Intake/Output Summary (Last 24 hours) at 10/02/2023 1405 Last data filed at 10/02/2023 1250 Gross per 24 hour Intake 153 ml Output 440 ml Net -287 ml Wt Readings from Last 3 Encounters: 10/02/23 208 lb 12.4 oz (94.7 kg) Physical Exam Constitutional: Appearance: Normal appearance. He is not diaphoretic. HENT: Head: Normocephalic and atraumatic. Right Ear: External ear normal. Left Ear: External ear normal. Nose: Nose normal. Eyes: General: Right eye: No discharge. Left eye: No discharge. Cardiovascular: Rate and Rhythm: Tachycardia present. Rhythm irregularly irregular. Pulses: Normal pulses. Heart sounds: Murmur heard. Systolic murmur is present with a grade of 1/6. Pulmonary: Breath sounds: Normal breath sounds. Abdominal: General: Bowel sounds are normal. Palpations: Abdomen is soft. Musculoskeletal: General (more content not included)...[facility] [id number] Note OCCUPATIONAL THERAPY [facility] Initial Evaluation Name/MRN: Eben Cruz ([id number]) Evaluation Date: 10/01/2023 Date of : 1945 Admission Date: 09/25/2023 12:49 PM Age: 78 y.o. Room/Bed: 1C-130/1C-130 A Discharge Recommendation: IP Rehab Equipment Needed: (defer to next level of care) Assessment IMPRESSION: Patient is a 78-year-old male hospitalized s/p NSTEMI. Patient recently with L hip total hip replacement on 09/18/23. Patient is functionally independent with self-care tasks and functional mobility at baseline. Patient is limited by the deficits listed below. Patient is SBA for UB ADLs, Max Assist LB ADLs and Max Assist toileting. Patient is Mod Assist for transfers/functional mobility. Recommending Inpatient Rehab upon discharge. Performance Deficits /Impairments: Increased Pain, Decreased Functional Mobility, Decreased ADL status, Decreased Strength, Decreased Safety Awareness, Decreased Cognition, Decreased Endurance, Decreased Balance, and Decreased Posture Prognosis: Good Decision Making: Medium Complexity Subjective Patient is sitting in recliner; patient agreeable to therapy evaluation. RN ok'd for participation. This therapist called and spoke with Renate from therapy department at [facility], where patient was at prior to admission to this facility. Renate states that patient is WBAT with anterior hip precautions. Pain: RN managing pain. Past Medical History: Past Medical History: Diagnosis Date Adverse effect of anesthesia Arthritis Coronary artery disease Delayed emergence from general anesthesia Hypertension Stroke ([facility]) Past Surgical History: Past Surgical History: Procedure Laterality Date CARDIAC CATHETERIZATION N/A 09/26/2023 Performed by Amos Nichole MD at [facility] Cardiac Cath/EP Lab CARDIAC CATHETERIZATION N/A 09/26/2023 Performed by Amos Nichole MD at [facility] Cardiac Cath/EP Lab HERNIA REPAIR INVASIVE VASCULAR PROCEDURE N/A 09/26/2023 Performed by Amos Nichole MD at [facility] Cardiac Cath/EP Lab JOINT REPLACEMENT both hip replacements, L shoulder Admission Diagnosis: Patient Active Problem List Diagnosis Date Noted HFrEF (heart failure with reduced ejection fraction) ([facility]) 09/28/2023 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 Fall Risk: Davila Fall Risk Score: 60 (High Risk) Precautions/Restrictions: Left LE Weight Bearing: Weight Bearing As Tolerated Hip Precautions: Anterior Hip Precautions Lines/Drains/Airways: PIV Family/Caregiver Present: none Overall Cognitive Status: Exceptions - Memory: decreased recall of precautions and decreased recall of recent events - Safety judgement: decreased awareness of need for assistance and decreased awareness of need for safety - Problem solving: decreased awareness of errors - Sequencing: requires cues for some Overall Orientation Status: Oriented x4 Social/Functional History Patient admitted from home. Lives With: Alone Type of Home: single family home Home Layout: Two-story house with 1st floor set up Home Access: Stairs to Enter with Rails (# of stairs: 2) Bathroom Shower/Tub: Step over tub on main floor, walk in shower in basement Toilet: Standard Home Equipment: front wheeled walker and cane Homemaking Responsibilities: Needs Assist Receives Help From: Family Active Candy Butcher: No Prior Level of Function ADL Assistance: Independent Ambulation Assistance: Independent Transfer Assistance: Independent Objective ADLs LE Dressing: Patient states that he uses sock aide at baseline- anticipate assistance with donning pants over hips secondary to heavy reliance on BUE. Upper Extremity Assessment AROM: WFL PROM: WFL Strength: Exceptions: BUE strength: 3/5 Vision: no visual deficits Hearing: normal Bed Mobility NT- patient in recliner pre/post therapy evaluation. Transfers/Functional Mobility Sit to stand: Mod Assist Stand to sit: Mod Assist Sitting balance: Supervision Standing balance: Min Assist Patient mod A for sit-stand from recliner. Patient with complaints of dizziness upon standing; dizziness did not improve. Return to sitting with dizziness resolved. Patient FAIR- standing balance. Heavy reliance on BUE with standing. Patient did not ambulate this date. Patient requiring cueing for hand placement and for controlled sitting. Device(s) used: front wheeled walker AM-PAC AM-PAC Inpatient Daily Activity Raw Score: 15 ADL Inpatient CMS G-Code Modifier: CK Plan Pt would benefit from skilled acute OT services to address Strengthening, Balance Training, Functional Mobility Training, Endurance Training, Gait Training, Cognitive Reorientation, Pain Management, Safety Education and Training, Patient/Caregiver Training, and Self-Care/ADL Training. Frequency: 3x/w (more content not included)...[facility] [id number] NotePalliative Care Progress Note Chief Complaint: Eben Cruz is a 78 y.o. male with chief complaint of shortness of breath. 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, 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 L hip fracture - post arthroplasty 09/18/23 - SNF [facility] - he continues to have sutures LLE, I did not see on paper chart when to be taken out Risk for constipation - no longer feels constipated, BM today - changed prn polyethylene glycol to schedule Insomnia, depression, poor appetite - major life change - 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 - aware unfortunately antidepressants can affect heart and will not be starting at this time, 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 did visit and was helpful, just expresses frustration as not improving as fast as he wishes Palliative Care Encounter -full code - - consulted for goals of care - he had not discussed with children over weekend code status, he wishes to continue medical treatments at this time - will continue to follow for ongoing monitoring of progression of Anorexia - will continue to evaluate test results related to NSTEMI , medication effectiveness for Anorexia, response to treatment of NSTEMI - follow peripherally Total of 40 minutes spent on this encounter including Chart review, Patient visit and exam, Documentation in EHR, Care coordination, Communicating with primary attending or other consultants, and Counseling and educating patient/family/caregiver. Discharge planning: Not ready for discharge due to medical instability and pending insurance approval to SNF Patient meets criteria for general inpatient hospice care including the following: N/A - Palliative Care Patient Referrals to: None Discussed patient and the plan of care with the other interdisciplinary team (IDT) members of Palliative Care Team, and with Primary Provider, Patient, and Floor Nurse Insert attestation statement here if applicable (.disupervision) or (.npattest) Subjective: Subjective/Events Since last seen: remains on telemetry, sitting in bedside chair without pain, CP, abdominal pain, breathing not labored, no nausea, vomiting, appetite poor, education surrounding this, BM today. He is frustrated with not improving as fast as he wished. Offered support Eben Cruz is a 78 y.o. 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 PMHx includes: HTN, HLD, partial R CVA. At [facility] for L total hip replacement but complicated by requirement of wound vac, was at [facility]. transferred to [place] for cardiology NSTEMI, transferred to [facility] for PCI. Family called with stating he needs to be DNR but he is oriented, palliative care consulted for goals of care Goals of care:Continue Current Management Functional Assessment: PPS: 50% Advance Directives: Full Code Surrogate: Child Prognosis: unknown Spiritual assessment: No spiritual distress identified Bereavement and grief: Grief Issues Not Identified Review of Systems ROS: See palliative care ROS/ESAS below; All other systems were reviewed and are negative. [place] Symptom Assessment Score [place] Score Pain Score 0 Tiredness Score 0 Nausea Score 0 Depression Score 0 Anxiety Score 0 Drowsiness Score 0 Anorexia Score (0= eating well, 10= not eating) 7 Wellbeing Score (10= worst sense of well-being) 0 Constipation 0 Dyspnea Score (0= no shortness of breath) 0 FLACC Scale (For Pain Assessment of the Non-Verbal Patient) Patient is verbal Assessed by: patient and provider. 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 Physical Exam Vitals and nursing note reviewed. HENT: Head: Normocephalic and atraumatic. Nose: Nose normal. Mouth/Throat: Mouth: Mucous membranes are moist. Eyes: General: Right eye: No disc (more content not included)...[facility] 10-01-2023 [facility] [place] [facility] Cardiology /Electrophysiology Progress Note HPI / Interval History: Mr. Cruz reports feeling better today. Has occasional CP that lasts seconds and resolves on its own. Still gets occasional SOB. Did not sleep well last night and states he always has hard time sleeping in hospital. Had slight lightheadedness when transferring to and from bedside commode. Just finished eating breakfast and getting washed up. Sitting in chair reading newspaper and appears comfortable. Up to chair. Trivial CPs lasting seconds at a time. Edema has decreased. Back in Afib w rates 130. Assessment/Plan HF NYHA Class [] I [x] II [] III [] IV CAD/NSTEMI s/p IVL with NORIS to LMCA, ostial RCA, ostial and prox LAD 09/26/23 - Stable. Reports CP that lasts few seconds and resolves on its own. Has intermittent SOB, feeling like he cannot catch his breath. Currently on triple therapy with ASA/ticagrelor/Apixaban. Due to SOB, will change ticagrelor to clopidogrel. At discharge, will stop ASA and continue clopidogrel and apixaban. Continue metopolol succinate and atorvastatin. Refer to cardiac rehab outpt once stable from hip standpoint. Doing well from coronary standpoint. Change Brilinta to Clopidogrel. Hgb stable. Stop ASA on discharge. HFrEF 25%/Ischemic CM - NYHA II-III, Stage C. No wt today. I/O -40cc/24 hours, -2991cc since admit. Creat 1.05. Has intermittent SOB and changing antiplatelet med as above to see if contributing. On torsemide 10mg daily. On metoprolol succinate. Due to hypotension, valsartan/spironolactone/and SGLT2 held. NYHA 3. BP limits further GDMT. Will ask Advanced HF to consult. Consider RHC. MAT/Frequent PVCs/SVT/AFib - He was started on amiodarone drip and converted to SR with frequent PVCs, PACs. On amiodarone 400 mg bid until he goes home, then decrease to 400 mg daily for 1 month, then decrease to 200 mg daily. TSH normal, LFTs improving. Continue apixaban 5 mg bid for CHADS2-VASC score of 6. Continue p.o. amiodarone, continue apixaban. Yesterday, BB increased. HR remains elevated 110-130s, asymptomatic. Will d/w Dr. Nichole re: EP consult. Continue to load w po Amio. Plan on DCC tomorrow. Limited on meds to control rate. Consider Dig. eGFR 71. Plan on EP consult if does not stay in SR after DCC. UTI (uncomplicated) - Received C&S results from [place], +ecoli in urine. Sensitive to cephalosporins. Continue Rocephin for 5 days today (last dose on Sunday). Ceftriaxone completed on 09/29/2023. No further antibiotics needed. Resolved Hx CVA - with right ECA stenosis. Continue DAPT and atorvastatin. Hypocalcemia/Hypokalemia - Resolved. Spironolactone currently on hold. Recent left hip fracture s/p left hip arthroplasty 09/18/23 - PT/OT eval for rehab. Wound care eval. Advance activity, pain control. LOC, miralax prn. Last BM 09/26/22. I.S., C&DB. He was to go to [facility]. Care Management/TCC involved with this. [facility] on discharge HLD - LDL 39. Continue atorvastatin. HTN - BP 90-110s/50-70s. Debility - PT/OT eval. Will need rehab. Goals of Care - Palliative care consulted. Will d/w Dr. Nichole. Medications: amiodarone, 400 mg, Oral, BID apixaban, 5 mg, Oral, BID vitamin C, 500 mg, Oral, Daily aspirin, 81 mg, Oral, Daily atorvastatin, 40 mg, Oral, Daily metoprolol succinate XL, 75 mg, Oral, Nightly pantoprazole, 40 mg, Oral, qAM AC polyethylene glycol (PEG) 3350, 17 g, Oral, Daily [Held by provider] spironolactone, 12.5 mg, Oral, Daily ticagrelor, 90 mg, Oral, BID torsemide, 10 mg, Oral, Daily [Held by provider] valsartan, 40 mg, Oral, Daily Infusion Medications: Physical Examination: Vitals: 09/30/23 2100 09/30/23 2214 10/01/23 0340 10/01/23 0733 BP: 94/61 106/73 102/71 119/84 BP Location: Left arm Left arm Left arm Patient Position: Lying Lying Sitting Pulse: 109 (!) 132 (!) 125 (!) 128 Resp: (!) 29 23 18 24 Temp: 36.2 ?C (97.2 ?F) 36.6 ?C (97.8 ?F) 36.2 ?C (97.2 ?F) TempSrc: Temporal Temporal Temporal SpO2: 99% 100% 96% 96% Weight: Height: Intake/Output Summary (Last 24 hours) at 10/01/2023 0749 Last data filed at 09/30/2023 1041 Gross per 24 hour Intake 360 ml Output 400 ml Net -40 ml Wt Readings from Last 3 Encounters: 09/30/23 191 lb (86.6 kg) Physical Exam Constitutional: Appearance: Normal appearance. HENT: Right Ear: External ear normal. Left Ear: External ear normal. Nose: Nose normal. Cardiovascular: Rate and Rhythm: Normal rate and regular rhythm. Pulses: Normal pulses. Heart sounds: Normal heart sounds. Pulmonary: Breath sounds: Normal breath sounds. Abdominal: General: Bowel sounds are normal. Palpations: Abdomen is soft. Musculoskeletal: General: Normal range of motion. Left lower leg: Edema (trace) present. Comments: Compression stockings on bilaterally Skin: General: Skin is warm and dry. Coloration: Skin is not j (more content not included)...[facility] 09-30-2023 NoteProblem: Potential for Compromised Skin Integrity Goal: Skin Integrity is Maintained or Improved Outcome: [facility]ing[facility]04-12-[facility]24 NoteCare Management Progress Note Patient remains on 1 Central ~ off IV amiodarone - per RN BP and HR better. Palliative and Cardiology following. Palliative Care Consulted. Has PT/OT orders - will need rehab of hip surgery. Patient was still inpatient at [facility] - will need auth from [facility] - they can see in care port but not respond - Jun [phone]. [facility] would not have bed until earliest Sunday. Task sent for PT/OT to see Discharge Plan: [facility] (SNF bed) - TCC and SW cont to follow. Discharge Milestones and Delays Discharge Milestones Place discharge order Complete med reconciliation Case mgmt discharge readiness Clinical Stability Diagnsotic Workup Expected Discharge History Expected Date/Time Set By Reviewed At Arminda Lawler RN 09/26/2023 9:06 AM 09/27/2023 Ashleigh Morrison APRN - G[facility] 09/25/2023 1:40 PM Length of Stay (Days): 3 GMLOS: No GMLOS [facility]ed[facility]04-12-2024 [facility] [place] [facility] Cardiology /Electrophysiology Progress Note CC: NSTEMI, s/p PCI HPI / Interval History: Mr. 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 On 09/18/23, he had total left hip replacement surgery at [facility]. He was discharged to SNF. He developed dyspnea and was transferred to [facility] with +NSTEMI, negative CTA for PE. Had a LHC at [facility] with severe mCAD. He was transferred to [facility] for PCI with Dr. Nichole. He had successful PCI on 09/25 with IVL and NORIS placed to ostial RCA, LMCA, ostial and proximal LAD. His ostial LCX SECTIONIZER is heavily calcified- for medical management. His echocardiogram at [facility] [place] showed LVEF of 25%, with lateral wall hypokinetic, mild-mod mitral valve insufficiency (at [facility] [place] on 09/23/23. Following PCI, having heart failure and diuresed, started on GDMT. Also afib, amiodarone gtt load then started on po, converted to SR. Currently being treated for +e. Coli UTI x 5 days. This morning, he is feeling better. He complains of low back pain from being in bed. He denies any chest pain, dyspnea at rest, orthopnea, PND, palpitations, dizziness, syncope, bleeding. Right femoral site stable. He states his dyspnea comes and goes, may also be related to brilinta. Vitals, HR stable this morning. Up to chair. Back in SR. C/o some dyspnea but appears to be breathing comfortably. Denies CP. Assessment/Plan HF NYHA Class [] I [x] II [x] III [] IV NSTEMI/ CAD s/p IVL with NORIS to LMCA, ostial RCA, ostial and proximal LAD on 09/26/23 - Stable. Right femoral site stable without bleeding or hematoma. Must continue DAPT without interruption for at least 1 year. He is currently on aspirin, apixaban and brilinta. Will stop aspirin at discharge. Continue apixaban and brilinta. Will consider changing to clopidogrel if he continues to have breathlessness. Continue atorvastatin, Toprol xl, PPI. Patient is not a candidate yet for cardiac rehab. He will need rehab from hip surgery first. On triple antithrombotic regimen. Discontinue ASA on discharge. Dyspnea may be related to Brilinta. Ideally change Brilinta to Plavix after 1 month. Sooner if dyspnea persists. Agree w statin. Reduce toprol dose. Valsartan and aldactone as BP permits. TCC working on placement [facility] [place]. 2. HFrEF 25%/ Ischemic cardiomyopathy, stage C, NYHA class II- III acute on chronic HFrEF - Volume status improved. No orthopnea, JVD improved at base of neck. Some crackles in bases. I/O nearly - 2 liters since admission. Weight not done. I/O not entirely accurate as he is also incontinent and urine not measurable. Repeat chest x-ray, likely start oral lasix. Continue GDMT- toprol xl, valsartan, spironolactone. Consider adding SGLT2i in near future or as outpatient. Renal status stable. Continue strict I/O, daily weights, fluid and sodium restriction. Repeat echo in 3 months to assess EF. HF meds as above as BP permits. 3. MAT, frequent PVCs, tachycardia/ SVT/ Afib - He was started on amiodarone drip and converted to SR with frequent PVCs, PACs. Will start amiodarone 400 mg bid until he goes home, then decrease to 400 mg daily for 1 month, then decrease to 200 mg daily. TSH normal, LFTs improving. Continue apixaban 5 mg bid for CHADS2-VASC score of 6. PAF. On Amio 400 BID. On discharge, reduce to 400 daily. After 1 month reduce further to 200 mg daily. On Apixaban. 4. UTI, uncomplicated - Received C&S results from [facility] [place], +ecoli in urine. Sensitive to cephalosporins. Continue Rocephin for 5 days today (last dose on Sunday). Complete Abx for UTI. 5. Hx CVA - with right ECA stenosis. Continue DAPT and atorvastatin. 6. Hypocalcemia/ Hypokalemia - Calcium Gluconate ordered, K+ replaced. Restart spironolactone. 7. Recent left hip fracture s/p left hip arthoplasty on 09/18/23 - PT/OT eval for rehab. Wound care eval. Advance activity, pain control. LOC, miralax prn. Last BM 09/26/22. I.S., C&DB. He was to go to [facility]. Care Management/TCC involved with this. 8. HLD - LDL 39. Continue atorvastatin 40 mg. 9. HTN - Controlled. Continue Toprol xl 50 mg at hs. Add low dose ARB, and titrate. Hold for SBP < 100, HR < 60 for BB. 10. Goals of Care - Palliative care consulted. Patient's family expressed DNR status. 11. Debility - PT/OT. Will need rehab. Discussed in detail with Dr. Nichole. Will need rehab, and follow up with [facility] (Dr. Kruse). [id number] Score for Atrial Fibrillation Stroke Risk Risk Factors C CHF Yes, 1 H HTN Yes, 1 A2 Age >= 75 Yes, 2 D DM No, 0 S2 Prior Stroke/TIA Yes, 2 V Vascular Disease No, 0 A Age 65-74 No, 0 Sc Sex Male, 0 [id number] Score 6 Calculator: [id number] risk stratification score for estimation of stroke ris (more content not included)...[facility]04-12-2024 Hospital Discharge instructions* Discharge Instructions* Elisa Goldstein, PAINT TECHNICIAN - AIRPLANE FIRST OFFICER - 09/28/2023 10:33 AM EDT Images from the original note were not included. Daily weights. If weight gain of 3 lbs overnight, or 5 lbs in 1 week- then take diuretic Torsemide. Continue Plavix (Clopidogrel) and Apixaban without stopping. Stop aspirin. HEART FAILURE SIGNS AND SYMPTOMS GREEN ZONE: All Clear- Your Symptoms Are Under Control No shortness of breath No weight gain of 3 pounds in 1 day or 5 pounds in 1 week No increase in your usual amount of swelling No chest pain No decreased ability to maintain usual activity This Means You Should: Continue taking your medications as prescribed Continue daily weights Continue low salt diet Keep all doctor appointments YELLOW ZONE: Caution as Your Health may be Worsening Weight increases 3 pounds in 1 day or 5 pounds in 1 week Increased cough, especially at night Increased shortness of breath with activity Increased shortness of breath laying down Have any wheezing or chest tightness at rest Need to sleep sitting in a chair or require more pillows when lying down Increased swelling in feet, ankles, or legs Feeling more tired or lack of energy Uneasy feeling or that something is wrong This Means You Should: Call your doctor for further instructions RED ZONE: Medical Alert Unrelieved shortness of breath with rest Unrelieved chest pain Confusion or you can't think clearly Fainting This Means You Should Call 911 Immediately Call your doctor with any medication questions or if you notice any side effects from your medications. If you are unable to fill your medications, please call your Pawn Broker immediately. The office number is located with your follow-up appointment information. Call your doctor if any redness or drainage from the wound site. DO NOT stop taking your medication unless instructed to do so by your doctor. Read the drug information material that were given to you and take medications as instructed by your doctor. New drugs may have been added to your medications, that will strengthen your heart and prevent re-stenosis of the coronary arteries. Drink 6 glasses of water (8 ounces each) over the next 24 hours. Water helps clear the dye from your body. No alcoholic beverages for 24 hours. It may interfere with healing. No exercise or sex for 5 days. Call 911 for chest pain, arm pain, nausea, neck pain, dizziness or unusual sweating AND your pain has not relieved with 2 doses of Nitroglycerin. Call your doctor if a lump at the puncture site enlarges or is larger than a golf ball. Call your doctor for severe pain to a light touch or for numbness, tingling or swelling of the affected foot. Call your doctor for increased area of bruising with discoloration extending down the leg. Call your doctor for coolness of the leg or foot. If bleeding occurs, lie down on a hard surface preferably the floor and apply pressure to the site for 20 minutes if BLEEDING continues CALL 911. OK to shower. No tub baths, swimming pools, or hot tub soaking for five days. Wash site daily with soap and water, dry gently. The healing wound should remain soft and dry. Keepthe site clean and dry. Cover with large band aid and change dressing for total of five days. No lifting, pushing or pulling more than 5 pounds for 5 days. No driving for three days. Limit your stair climbing for three days. GIVE PCI PACKET (FROM RESIDENTIAL DOOR INSTALLER) TO PATIENT Give Coronary Artery Discharge Book. PLEASE CALL YOUR HEART DOCTOR IF YOU CANNOT GET YOUR MEDICATIONS. THE NUMBER IS LISTED WITH YOUR FOLLOW-UP APPOINTMENT. Procedure Sedation Instructions If you have received sedation: you must have someone drive you home You should not drive a car, operate machinery, drink alcohol or perform any activity that requires alertness for the rest of the day. The effects of the sedative should be gone by tomorrow. Call your doctor with any medication questions or if you notice any side effects from your medications. If you are unable to fill your medications, please call your Pawn Broker immediately. The office number is located with your follow-up appointment information. Call your doctor if any redness or drainage from the wound site. DO NOT stop taking your medication unless instructed to do so by your doctor. Read the drug information material that were given to you and take medications as instructed by your doctor. New drugs may have been added to your medications, that will strengthen your heart and prevent re-stenosis of the coronary arteries. Drink 6 glasses of water (8 ounces each) over the next 24 hours. Water helps clear the dye from your body. No alcoholic beverages for 24 hours. It may interfere with healing. No exercise or sex for 5 days. Call 911 for chest pain, arm pain, nausea, neck pain, dizziness or unusual sweating AND your pain has not relieved with 2 doses of Nitroglycerin. Call your doctor if a lump at the puncture site enlarges or is larger than a golf ball. Call your doctor for severe pain to a light touch or for numbness, tingling or swelling of the affected foot. Call your doctor for increased area of bruising with discoloration extending down the leg. Call your doctor for coolness of the leg or foot. If bleeding occurs, lie down on a hard surface preferably the floor and apply pressure to the site for 20 minutes if BLEEDING continues CALL 911. OK to shower. No tub baths, swimming pools, or hot tub soaking for five days. Wash site daily with soap and water, dry gently. The healing wound should remain soft and dry. Keepthe site clean and dry. Cover with large band aid and change dressing for total of five days. No lifting, pushing or pulling more than 5 pounds for 5 days. No driving for three days. Limit your stair climbing for three days. GIVE PCI PACKET (FROM RESIDENTIAL DOOR INSTALLER) TO PATIENT Give Coronary Artery Discharge Book. PLEASE CALL YOUR HEART DOCTOR IF YOU CANNOT GET YOUR MEDICATIONS. THE NUMBER IS LISTED WITH YOUR FOLLOW-UP APPOINTMENT. Procedure Sedation Instructions If you have received sedation: you must have someone drive you home You should not drive a car, operate machinery, drink alcohol or perform any activity that requires alertness for the rest of the day. The effects of the sedative should be gone by tomorrow. Call your doctor with any medication questions or if you notice any side effects from your medications. If you are unable to fill your medications, please call your Pawn Broker immediately. The office number is located with your follow-up appointment information. Call your doctor if any redness or drainage from the wound site. DO NOT stop taking your medication unless instructed to do so by your doctor. Read the drug information material that were given to you and take medications as instructed by your doctor. New drugs may have been added to your medications, that will strengthen your heart and prevent re-stenosis of the coronary arteries. Drink 6 glasses of water (8 ounces each) over the next 24 hours. Water helps clear the dye from your body. No alcoholic beverages for 24 hours. It may interfere with healing. No exercise or sex for 5 days. Call 911 for chest pain, arm pain, nausea, neck pain, dizziness or unusual sweating AND your pain has not relieved with 2 doses of Nitroglycerin. Right groin site: Call your doctor if a lump at the puncture site enlarges or is larger than a golf ball. Call your doctor for severe pain to a light touch or for numbness, tingling or swelling of the affected foot. Call your doctor for increased area of bruising with discoloration extending down the leg. Call your doctor for coolness of the leg or foot. If bleeding occurs, lie down on a hard surface preferably the floor and apply pressure to the site for 20 minutes if BLEEDING continues CALL 911. OK to shower. No tub baths, swimming pools, or hot tub soaking for five days. Wash site daily with soap and water, dry gently. The healing wound should remain soft and dry. Keepthe site clean and dry. Cover with large band aid and change dressing for total of five days. No lifting, pushing or pulling more than 5 pounds for 5 days. No driving for three days. Limit your stair climbing for three days. GIVE PCI PACKET (FROM RESIDENTIAL DOOR INSTALLER) TO PATIENT Give Coronary Artery Discharge Book. PLEASE CALL YOUR HEART DOCTOR IF YOU CANNOT GET YOUR MEDICATIONS. THE NUMBER IS LISTED WITH YOUR FOLLOW-UP APPOINTMENT. Procedure Sedation Instructions If you have received sedation: you must have someone drive you home You should not drive a car, operate machinery, drink alcohol or perform any activity that requires alertness for the rest of the day. The effects of the sedative should be gone by tomorrow. Cardiac Rehab The Cardiac Rehab team at [facility] consists of highly skilled exercise physiologists, nurses, respiratory therapists and physicians working together with you. Our purpose is to help you have a full recovery and achieve the goals you set for yourself. Over the years many of our patients have returned to activities they assumed they would never do again! We can help restore your confidence and motivation to make lifestyle changes that can have a significant impact on your health and quality of life! We can help answer questions and concerns you may have about exercise, lifestyle, medications, diet, stress and anxiety which are common following a hospitalization. We monitor ECG and vital signs during exercise and discuss your progress with you and report to your physician. Cardiac Rehab is proven to help reduce readmissions, improve functional capacity and lower recurrence of problems with your heart. We have facilities at both [facility] and [facility]. At both locations we have street level parking which is free and our sites are easily accessible. For both [facility] you can contact us at . We invite you to call us with your questions or to get started in our program. If you have other questions or concerns be sure to ask your provider during your follow up visit. We look forward to seeing you there. Our locations: [facility] [address] [facility] Ground Floor [id number] - Ground floor Orthopaedic Surgery Discharge Instructions: - Weight bearing as tolerated - Activity as tolerated - Ice to reduce pain and swelling. Do not put ice directly on the skin. -Follow-up outpatient with Dr. Schreiber as scheduled. The office contact information is provided in your paperwork. -Take medications as prescribed by the hospital doctors * Discharge Instr - JUN* MELISSA Jones CNP - 10/03/2023 2:34 PM EDT Continuity of Care Form Patient Name: Eben Cruz : 1945 Admit date: 09/25/2023 Discharge date: 10/05/2023 Code Status Order: Full Code Advance Directives: N Admitting Physician: Amos Nichole MD PCP: Iwona Stewart Discharging Nurse: Alis Discharging Hospital Unit/Room#: 1C-130/1C-130 A Discharging Unit Phone Number: [phone] Emergency Contact: Extended Emergency Contact Information Primary Emergency Contact: Mark Cruz Mobile Relation: Son Preferred language: Slovenian Instructor Hairspring needed? No Secondary Emergency Contact: Mark Cruz Mobile Relation: Other Preferred language: Slovenian Instructor Hairspring needed? No Past Surgical History: Past Surgical History: Procedure Laterality Date CARDIAC CATHETERIZATION N/A 09/26/2023 Performed by Amos Nichole MD at [facility] Cardiac Cath/EP Lab CARDIAC CATHETERIZATION N/A 09/26/2023 Performed by Amos Nichole MD at [facility] Cardiac Cath/EP Lab HERNIA REPAIR INVASIVE VASCULAR PROCEDURE N/A 09/26/2023 Performed by Amos Nichole MD at [facility] Cardiac Cath/EP Lab JOINT REPLACEMENT both hip replacements, L shoulder Immunization History: Immunization History Administered Date(s) Administered Moderna SARS-CoV-2 Vaccination 02/01/2021, 03/01/2021 Active Problems: Medical Problems Problem List * (Principal) 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 ([facility]) HFrEF (heart failure with reduced ejection fraction) ([facility]) Isolation/Infection: No active isolations No active infections Nurse Assessment: Last Vital Signs: BP 122/55 Pulse 81 Temp 36.3 C (97.3 F) (Temporal) Resp 22 Ht 5' 10 (1.778 m) Wt 209 lb 10.5 oz (95.1 kg) SpO2 100% BMI 30.08 kg/m Last documented pain score (0-10 scale): Last Weight: Wt Readings from Last 1 Encounters: 10/03/23 209 lb 10.5 oz (95.1 kg) Mental Status: JUN Patient Mental Status: oriented, alert, coherent, logical, thought processes intact, and able to concentrate and follow conversation IV Access: JUN IV Access: None Nursing Mobility/ADLs: Walking Total assistance Transfer Minimal assistance Bathing Minimal assistance Dressing Minimal assistance Toileting Minimal assistance Feeding Independent Nuclear Physician Independent Med Delivery yes Wound Care Documentation and Therapy: Wound/Incision 09/25/23 Incision Leg Anterior;Left;Upper (Active) Site Assessment Dry;Clean 10/03/23 1125 Odor None 10/03/23 0300 Drainage Amount None 10/03/23 1125 Treatments Site care 09/29/23 0800 Primary Dressing Open to air 10/03/23 1125 Number of days: 8 Elimination: Continence: Bowel: yes Bladder: yes Urinary Catheter: None Colostomy/Ileostomy/Ileal Conduit: None Date of Last BM: 10/05/23 Intake/Output Summary (Last 24 hours) at 10/03/2023 1434 Last data filed at 10/03/2023 1404 Gross per 24 hour Intake -- Output 450 ml Net -450 ml I/O last 3 completed shifts: In: 153 (1.6 mL/kg) [P.O.:100; I.V.:53 (0.6 mL/kg)] Out: 490 (5.2 mL/kg) [Urine:490 (0.1 mL/kg/hr)] Weight: 95.1 kg Safety Concerns: at risk for falls Impairments/Disabilities: none Nutrition Therapy: Current Nutrition Therapy: Oral diet: general Routes of Feeding: oral Liquids: thin liquids Daily Fluid Restriction: no Last Modified Barium Swallow with Video (Video Swallowing Test): not done Treatments at the Time of Hospital Discharge: Respiratory Treatments: none Oxygen Therapy: is not on home oxygen therapy. Ventilator: No ventilator support Rehab Therapies: physical therapy and occupational therapy Weight Bearing Status/Restrictions: weight bearing as tolerated Other Medical Equipment (for information only, NOT a DME order): walker Other Treatments: recent left hip arthroplasty... Also wearing LifeVest Patient's personal belongings (please select all that are sent with patient): joao SIMS SIGNATURE: MANAGEMENT/SOCIAL WORK SECTION Inpatient Status Date: 09/25/2023 Readmission Risk Assessment Score: @READMISSIONRISKDETAILS@ Discharging to Facility/ Agency [facility] [address], [place] [address] Dialysis Facility (if applicable) Name: Address: Dialysis Schedule: Phone: Fax: Clerk Operator/Booth Cleaner signature: ICIAN SECTION Prognosis: good Condition at Discharge: stable Rehab Potential (if transferring to Rehab): good Recommended Labs or Other Treatments After Discharge: Follow [facility] , life care palliative team to follow at [facility] Physician Certification: I certify the above information and transfer of Eben Cruz is necessary for the continuing treatment of the diagnosis listed and that he requires intermediate facility for less than 30 days. Update Admission H&P: No change in H&P PHYSICIAN SIGNATURE: documented in this [facility]04-11-2024 NotePHYSICAL THERAPY [facility] Initial Evaluation Name/MRN: Eben Cruz ([id number]) Evaluation Date: 09/27/2023 Date of : 1945 Admission Date: 09/25/2023 12:49 PM Age: 78 y.o. Room/Bed: 1C-130/1C-130 A Discharge Recommendation: Nursing Home Facility Equipment Needed: No Other: He has a walker and a cane at home to use. Assessment IMPRESSION: Eben Cruz was admitted on 09/25/23 with NSTEMI. He has had PCI with 3 stents and lithotripsy. He came from [facility] where he had left hip surgery. 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 He was negative for PE on his CTA. He lives alone, not yet safe to be up without assist. He was taken to his right side to get to the chair. Before finishing this note, he was experiencing dizziness and ?? Chest pain, so this therapist got him back to bed. Cardiology was at the bedside checking on him. He is currently requiring max assist for transfers, mod assist for bed mobility, and min assist for rolling side to side. Mod assist to scoot forward in the chair. He was given ice for comfort for his hip. He is on O2 via [place]. Noofficial WB status in chart, but per notes from prior to admission he ambulated 94 ' with a FWW, so at least partial weight bearing is assumed. He did state that he felt better once he was back in the bed. Currently at SNF level. Diagnosis: NSTEMI in a patient who recently (09/18/23) had left hip total replacement on 09/18/23 in [place]. Prognosis: good Performance Deficits /Impairments: Increased Pain, Decreased Functional Mobility, Decreased Strength, Decreased Safety Awareness, Decreased Endurance, Decreased Balance, Decreased High Level IADLs, Decreased Fine Motor Control, Decreased Coordination, and Decreased Posture Decision Making: Medium Complexity Subjective NSTEMI in patient who had a complex total hip replacement on 09/18/23 at [facility]. Nurse was okay with OOB to chair. He became dizzy, complained of chest pain, and this therapist assisted him back to bed. (10 min) Pain: RN managing pain. Past Medical History: Past Medical History: Diagnosis Date Adverse effect of anesthesia Arthritis Coronary artery disease Delayed emergence from general anesthesia Hypertension Stroke (HCC) Past Surgical History: Past Surgical History: Procedure Laterality Date CARDIAC CATHETERIZATION N/A 09/26/2023 Performed by Amos Nichole MD at [facility] Cardiac Cath/EP Lab CARDIAC CATHETERIZATION N/A 09/26/2023 Performed by Amos Nichole MD at [facility] Cardiac Cath/EP Lab HERNIA REPAIR INVASIVE VASCULAR PROCEDURE N/A 09/26/2023 Performed by Amos Nichole MD at [facility] Cardiac Cath/EP Lab JOINT REPLACEMENT both hip replacements, L shoulder Admission Diagnosis: Patient Active Problem List Diagnosis Date Noted 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 Fall Risk: Davila Fall Risk Score: 60 (High Risk) Precautions/Restrictions: Left LE Weight Bearing: Lines/Drains/Airways: IV, O2, tele lines Left hip pain Family/Caregiver Present: child(adam) Overall Cognitive Status: WFL Overall Orientation Status: Oriented to Place, Oriented to Situation, and Oriented to Person Vision: not assessed this session Hearing: impaired Social/Functional History Patient admitted from home. Lives With: Alone Type of Home: single family home Home Layout: Single Level Home Home Access: Stairs to Enter with Rails (# of stairs: 2) Bathroom Shower/Tub: Toilet: Standard Home Equipment: front wheeled walker and cane Homemaking Responsibilities: Needs Assist Receives Help From: Family Active Candy Butcher: No Prior Level of Function ADL Assistance: Independent Ambulation Assistance: Device(s) used: cane Transfer Assistance: Independent Objective Lower Extremity Assessment AROM: Impaired: left hip ~ 90 degrees of flexion, full extension when laying in bed. PROM: Not assessed this session Strength: Exceptions: LLE total hip replacement on 09/18/23, has not been up for the past 3 days because of medical complications. Bed Mobility: Supine to sit: Max Assist Sit to supine: Mod Assist Rolling to right: Mod Assist Rolling to left: Mod Assist Scooting: Max Assist Transfers Sit to stand: Mod Assist Stand to sit: Mod Assist Ambulation Did not assess this session. Coordination: Impaired: decreased coordination with transfers and standing. Outcome Measures AM-PAC How much HELP from another person do you currently need Turning from your back to your side while in a flat bed without using bedrails?: A Lot Moving from lying on your back to sitting on the side of a flat bed without using bedrails?: A Lot Moving to and from a bed to a chair (including a wheelchair)?: A Lot Standing up from a chair (more content not included)...[facility] 09-27-2023 NoteCare Management Progress Note Patient remains on 1 Central NSTEMI/CAD s/p IVL with NORIS to LMCA, Ostial and Proximal LAD on 09/25, s/p hip surgery on 09/17 ~ on abx for E coli UTI. Was in [facility] - in their SNF unit - daughter would like patient to return. PT/OT orders in. Called and left for Marvin ([phone]) at [facility] - to see what is needed when patient is ready for discharge. (They have not answered in care port) Received call back from Jennifer at [facility] - to clarify - patient was still in patient at [facility] - auth for [facility] was started on 09/23, patient trasnferred to [facility] on 09/24 - rehab was denied on 09/25. Patient would need auth for [facility] bed - at the earliest they would have a bed would be Saturday 09/30. Patient will need PT/OT to see. Task sent to [facility] - to close [facility] referral ending in 123 and leave referral ending in 701 - [facility] can see info on the referral but can not respond to in care port. Discharge Milestones and Delays Discharge Milestones Place discharge order Complete med reconciliation Case mgmt discharge readiness Clinical Stability Diagnsotic Workup Expected Discharge History Expected Date/Time Set By Reviewed At Arminda Lawler RN 09/26/2023 9:06 AM 09/27/2023 Ashleigh Morrison APRN - GELY 09/25/2023 1:40 PM Length of Stay (Days): 2 GMLOS: No GMLOS DocumentedMcLaren [facility]04-11-2024 [facility] Cardiology /Electrophysiology Progress Note CC: NSTEMI HPI / Interval History: Mr. 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 On 09/18/23, he had total left hip replacement surgery at [facility]. He was discharged to SNF. He developed dyspnea and was transferred to [facility] with +NSTEMI, negative CTA for PE. Had a LHC at [facility] with severe mCAD. He was transferred to [facility] for PCI with Dr. Nichole. He had successful PCI on 09/25 with IVL and NORIS placed to ostial RCA, LMCA, ostial and proximal LAD. His ostial LCX SECTIONIZER is heavily calcified- for medical management. His echocardiogram at [facility] showed LVEF of 25%, with lateral wall hypokinetic, mild-mod mitral valve insufficiency (at [facility] on 09/23/23. Last night he developed dyspnea and was diuresed with 120 mg IV lasix. He has had sinus tachycardia with PVCs and MAT. This morning, he remain dyspneic, oxygen weaned down to 2 liters. Chest X-ray is wet, will diurese. He denies chest pain, palpitations when having MAT, denies dizziness, syncope, bleeding. He has not been out of bed. He is also s/p left hip arthroplasty. While at [facility], urine culture completed with results of + E. Coli. C/o dyspnea this am. HR going up to 120-130's and irregular. EKG shows MAT and not AF. Returned to see him at noon. Slight improvement in Sx w iv lasix. Tele still looks like AF w RVR. Will repeat EKG. CXR w CHF. Denies CP. Assessment/Plan HF NYHA Class [] I [] II [x] III [x] IV NSTEMI/ CAD s/p IVL with NORIS to LMCA, ostial RCA, ostial and proximal LAD on 09/26/23 - Stable. Right femoral site stable without bleeding or hematoma. Must continue DAPT- aspirin and brilinta without interruption for at least 1 year. Continue atorvastatin, Toprol xl, PPI, sq heparin. Patient is not a candidate yet for cardiac rehab. He will need rehab from hip surgery first. 2. HFrEF 25%/ Ischemic cardiomyopathy, stage C, NYHA class III - Diuresing with lasix 80 mg IV. Continue Toprol xl. Will add valsartan and spironolactone today. He reports cough with losartan and nausea and vomiting with Entresto. Will trial valsartan. GDMT will be titrated. Continue strict I/O, daily weights, fluid and sodium restriction. Will need repeat echo in 3 months after revascularization, to eval for ICD. 3. MAT, frequent PVCs, tachycardia/ SVT - Continue toprol xl. Replace calcium today. Keep K+ > 4, and Mag > 1.8. Continue to monitor. 4. UTI, uncomplicated - Received C&S results from [place], +ecoli in urine. Sensitive to cephalosporins. Continue Rocephin for 5 days today (last dose on Sunday). 5. Hx CVA - with right ECA stenosis. Continue DAPT and atorvastatin. 6. Hypocalcemia - Calcium Gluconate ordered. 7. Recent left hip fracture s/p left hip arthoplasty on 09/18/23 - PT/OT eval for rehab. Wound care eval. 8. HLD - LDL 39. Continue atorvastatin 40 mg. 9. HTN - Controlled. Continue Toprol xl. Add low dose ARB, losartan and titrate. Discussed in detail with Dr. Nichole Will recheck EKG. If AF then will add Eliquis and Amiodarone and discontinue ASA. Additional BBL as needed for rate control (currently on Toprol XL 50). Keep rate <110. Diurese for CHF. Strict I&Os. Add valsartan and aldactone. has called [facility] and requested DNR status for patient. Will ask Palliative Care to Consult to establish goals of care. Patient has been severely debilitated after his hip surgery. Plans currently are for eventual discharge to Ortho Rehab at [facility]. TCC/Discharge planning involved. On Abx for e coli UTI. OT/PT have been consulted. Medications: vitamin C, 500 mg, Oral, Daily aspirin, 81 mg, Oral, Daily atorvastatin, 40 mg, Oral, Daily calcium gluconate, 2,000 mg, IntraVENous, Once cefTRIAXone, 1,000 mg, IntraVENous, q24h furosemide, 40 mg, IntraVENous, Daily heparin, 5,000 Units, IntraVENous, 3 times per day metoprolol succinate XL, 50 mg, Oral, BID pantoprazole, 40 mg, Oral, qAM AC spironolactone, 12.5 mg, Oral, Daily ticagrelor, 90 mg, Oral, BID valsartan, 40 mg, Oral, Daily Infusion Medications: Physical Examination: Vitals: 09/27/23 0325 09/27/23 0726 09/27/23 0913 09/27/23 1045 BP: 116/75 124/74 138/95 123/82 BP Location: Right arm Patient Position: Lying Pulse: 111 110 (!) 125 Resp: 19 Temp: 36.4 ?C (97.6 ?F) (!) 35.4 ?C (95.8 ?F) TempSrc: Temporal SpO2: 99% 94% Weight: Intake/Output Summary (Last 24 hours) at 09/27/2023 1108 Last data filed at 09/26/20232053 Gross per 24 hour Intake 107.26 ml Output 1555 ml Net -1447.74 ml Wt Readings from Last 3 Encounters: 09/25/23 206 lb 12.8 oz (93.8 kg) Physical Exam Vitals reviewed. Constitutional: General: He is not in acute distress. Appearance: Normal appearance. He is obese. He is ill-appeari (more content not included)...[facility]04-10-2024 NotePaged that patient has been dyspneic and evaluation requested. Patient seen, Aox3. He has been dyspneic for some time, but has been worsening this afternoon. He had PCI today with stent to LMCA, ost/prox LAD, RCA LVEDP 18 mmHg. He had been more short of breath post procedure. Initially he was receiving LR 125 mL/hr. This was stopped with his dyspnea and received lasix 40 mg IV with some UOP. On my exam, his HR was initially in the 70s-80s, RR in the 30s. He did appear tachypneic. JVD+, crackles present. Given his tachypnea with abdominal breathing in the setting of volume overload, I ordered an additional 80 mg IV lasix. STAT CXR pending. EKG without acute changes. Further discussed with interventional cardiology Dr. Pickett as well. Will hold off transfer to CCU at this time. Doyle Coelho MD Cardiovascular Disease PGY-[place] [address]-10-2024 NoteReturn referral placed to SNF - [facility] via Careport per TCC request. Await review and response regarding ability to accept. TCC notified. [place] [address]-10-2024 NoteReceived call from [facility] stating pt was in their SNF unit. [facility] tasked to send referral. [place] [address]-10-2024 NoteReceived referral and reviewed chart. Phase II Cardiac Rehab Referral discussed with Eben Cruz. Patient prefers cardiac rehab at [facility]. Given information on cardiac rehab at preferred location. [place] [address]-10-2024 NoteReferral placed to RETURN [facility]HAB-[facility] via Careport per TCC request. Await review and response regarding ability to accept. TCC notified. 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) (Same) Providers: Amos Nichole MD Responsible Provider: Jose Eduardo Bonilla MD Anesthesia Type: TIVA ASA Status: 3 Anesthesia Type: TIVA Vitals Value Taken Time BP 107/73 09/26/23 1144 Temp 36.1 ?C (97 ?F) 09/26/23 1144 Pulse 102 09/26/23 1144 Resp 16 09/26/23 1144 SpO2 94 % 09/26/23 1144 Anesthesia Post Evaluation Patient location during evaluation: PACU Patient participation: complete - patient participated Level of consciousness: sleepy but conscious Pain management: satisfactory to patient Airway patency: patent Dental Injury: no Cardiovascular status: acceptable, blood pressure returned to baseline and hemodynamically stable Respiratory status: acceptable, spontaneous ventilation and face mask Hydration status: euvolemic Nausea/Vomiting: controlled No notable events documented. 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) (Same) Providers: Amos Nichole MD Responsible Provider: Jose Eduardo Bonilla MD Anesthesia Type: TIVA ASA Status: 3 Anesthesia Type: TIVA Vitals Value Taken Time BP 107/73 09/26/23 1144 Temp 36.1 ?C (97 ?F) 09/26/23 1144 Pulse 102 09/26/23 1144 Resp 16 09/26/23 1144 SpO2 94 % 09/26/23 1144 Anesthesia Post Evaluation Patient location during evaluation: PACU Patient participation: complete - patient participated Level of consciousness: sleepy but conscious Pain management: satisfactory to patient Multimodal analgesia pain management approach Airway patency: patent Two or more strategies used to mitigate risk of obstructive sleep apnea Cardiovascular status: acceptable and hemodynamically stable Respiratory status: acceptable and face mask Hydration status: acceptable No notable events documented. MIPS #430 PONV Patient did not receive an inhalational anesthetic (XX430) MIPS # 424 Perioperative Temperature Management Anesthesia time was 60 minutes or longer (4255F) Anesthesai administered was not General (inhalational or TIVA) or Neuraxial block Patient received MAC (G9654) At least one body temperature greater than 95.8F/35.5C achieved within the 30 mins immediately prior to or the 15 minutes immediately following anesthesia end time (G9771) MIPS #477 Multimodal Pain Management Not emergent case Patient was not administered multimodal pain management (G2149) Patient reports no pain in PACU (G2149) MIPS #404 Anesthesiology Smoking Abstinence The patient is not a current smoker (e.g. cigarette, cigar, pipe, e-cigarette/vaping/marijuana) If no stop here (XX404) I completed my handoff to the receiving clinician during which we: 1. Identified the patient 2. Identified the responsible provider 3. Reviewed the pertinent medical history 4. Discussed the surgical course 5. Reviewed intra-op anesthesia management and issues during anesthesia 6. Set expectations for post-procedure period 7. 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 He has never used smokeless tobacco. ETOH: reports no history of alcohol use. Social History Substance and Sexual Activity Drug Use Never Family History: No family history on file. Screening: unknown Clinical information reviewed: Tobacco Allergies Meds Med Hx Surg Hx Fam Hx Soc Hx Physical Exam Airway Mallampati: III TM distance: >3 FB Neck ROM: full Mouth Open: normalendotracheal tube not in place Cardiovascular Dental (+) Missing Comments: Teeth #7 and #10 missing Pulmonary Abdominal Anesthesia Plan patient is NPO appropriate Any family history or previous problems with anesthesia no ASA 3 TIVA Any family history or previous problems with anesthesia no The patient is not a current smoker. Anesthetic plan and risks discussed with patient. ANIYAH Screening Labs: Lab Results Component Value Date WBC 14.9 (H) 09/26/2023 HGB 9.8 (L) 09/26/2023 HCT 30.6 (L) 09/26/2023 MCV 93.6 09/26/2023 PLT 343 09/26/2023 Lab Results Component Value Date NA 135 09/26/2023 K 4.4 09/26/2023 CL 105 09/26/2023 CO2 23 09/26/2023 BUN 39 (H) 09/26/2023 CREATININE 0.86 09/26/2023 GLUCOSE 155 (H) 09/26/2023 CALCIUM 8.5 09/26/2023 PROT 6.6 09/26/2023 ALKPHOS 82 09/26/2023 AST 130 (H) 09/26/2023 ALT 55 (H) 09/26/2023 EGFR 87.5 09/26/2023 Pain Score: Scheduled No echocardiogram results found for the past 14 days No results found for this or any previous visit.[facility] 09-25-2023 [facility] [place] [facility] Cardiology History and Physical Chief Complaint: CAD History of Present Illness: Eben Cruz is a 78 y.o. 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 He is known to [facility] outpatient. Had LHC in 2013 with non-obstructive CAD (per pt). NST 06/21/22 showed preserved EF, no ischemia. On 09/18/23, had total left hip replacement surgery at [facility]. Had complicated course requiring wound vac. Discharged to [facility] (SNF). He c/o SOB. Labs showed elevated d-dimer and troponins and diagnosed with NSTEMI. CTA chest negative for PE. Transferred to [facility] and seen by cardiology. Placed on heparin gtt. On 09/24/23, LHC showed subtotal heavily calcified prox LCx (unable to cross with wire), 50% distal LMCA, 50% calcified ostial and prox RCA, 80% heavily calcified and prox RCA. He was transferred to [facility] for PCI of ostial and prox RCA. Post procedure, hypoxic with SaO2 79% and noted to be devlin. Placed on nonrebreather with improvement in SaO2. Stat echo showed EF 25% with severe global hypokinesis of LV, lateral wall severely hypokinetic. Maintained on BiPAP and given fluids. Labs stable. Weaned to 2L O2 NC. He currently is in 1-central, resting comfortably in bed. Reports SOB. Denies PND, orthopnea, CP, palpitations, dizziness, syncope, bleeding, BINGHAM, or edema. 78M. CRF + HTN, Chol PMH: R TKR; R parietal CVA Apr 2023 PCVHx: [facility] 2013 Non-obstructive CAD Per Pt. Jul 10 negative NST w normal LVfx. HPI: L THR 09/18/23 in [place]. Admitted 09/24/23 [facility] w CP rad to L arm. Cath today w Mod calcified intermediate distal LM and LAD disease. LCF prox SECTIONIZER densely calcified (workhorse wire would not cross); Calcified ostial RCA disease and intermediate distal RCA disease. Fentanyl during procedure for back and hip pain causing hypoxia and hypotension. Assessment/Plan HF NYHA Class [] I [] II [x] III [] IV CAD/NSTEMI with unsuccessful PCI subtotal heavily calcified prox LCx and plan for PCI ostial and prox RCA - Stable. Denies CP. Reports improved SOB. Plan for PCI tomorrow with Dr. Nichole at 0800. NPO after midnight. No allergies to contrast noted. GFR >60. Check troponin level. Risks and benefits of procedure and not doing procedure explained to pt. Pt and family verbalized understanding and agreeable. Concerns for resp depression with pain meds during PCI with shockwave tomorrow (as evidenced from resp issues post procedure yesterday). Dr. Nichole would like to consult anesthesiology to assist with case. Plan to change clopidogrel to ticagrelor. Load with 180mg tonight, then 90mg BID. Start heparin gtt and nitro paste. Continue ASA, ticagrelor, metoprolol succinate, atorvastatin, and PPI. Coronary Appropriate Use Criteria Coronary Presentation (select one): ACS > 24 hrs History of CABG (select one): No Diabetes (select one): No Anginal Classification (CCS) within 2 weeks (select one): CCS III - Symptoms with everyday living activities, i.e. moderate limitation SOB Anti-anginal Meds within 2 weeks (select all that apply): Yes: Beta Blockers, Aspirin, and Statin (Any) Stress or Imaging studies performed (select one), risk/extent of ischemia (select one if applicable): Yes, High Patient undergoing renal transplant or percutaneous valve procedure (select one): No NYHA Classification: Class III Frailty Score :5 [facility] Protocol: No HFrEF 25% - Stable. NYHA III. Stage C. Reports SOB improved. Has edema lower ext. Denies PND, orthopnea. Plan for PCI as noted above. Continue metoprolol succinate. Hx cough with losartan remotely. Stopped amlodipine. Recommend valsartan and spironolactone. Will start after PCI tomorrow. Also recommend SGLT2 inhibitor. HTN - BP controlled 125/71. Continue current meds. Home amlodipine was stopped at [facility] to allow for GDMT of HF. HLD - LDL 39 09/23/23. On atorvastatin 40mg. Hx CVA - Continue DAPT and high intensity statin. Right ECA stenosis - Continue DAPT and high intensity statin. UTI - Per family, pt with issues urinating and urinalysis showed mild UTI. He is on IV rocephin. Recommend check on culture results tomorrow and if negative than stop IV abx. Will d/w Dr. Nichole Medications: amLODIPine, 2.5 mg, Oral, Daily aspirin, 81 mg, Oral, Daily atorvastatin, 40 mg, Oral, Daily [START ON 09/26/2023] clopidogrel, 75 mg, Oral, Daily metoprolol succinate XL, 25 mg, Oral, BID [START ON 09/26/2023] pantoprazole, 40 mg, Oral, qAM AC sodium chloride 0.9%, 5-40 mL, IntraVENous, q12h sodium chloride 0.9%, 5-40 mL, IntraVENous, q12h vitamin C, 100 mg, Oral, Daily Infusion Medications: Physical Examination: Vitals: Vitals: 09/25/23 1301 BP: 125/71 Pulse: 109 Resp: (!) 26 Temp: 36.7 ?C (98 ?F) TempSrc: Temporal SpO2: 94% No intake or output data in the 24 hours ending 09/25/23 1348 Wt (more content not included)...[facility]04-09-2024 History and physical note* Amos Nichole MD - 09/25/2023 1:47 PM EDT Images from the original note were not included. [facility] [place] [facility] Cardiology History and Physical Chief Complaint: CAD History of Present Illness: Eben Cruz is a 78 y.o. 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 He is known to [facility] outpatient. Had [facility] in 2013 with non-obstructive CAD (per pt). NST 06/21/22 showed preserved EF, no ischemia. On 09/18/23, had total left hip replacement surgery at [facility]. Had complicated course requiring wound vac. Discharged to [facility] (SNF). He c/o SOB. Labs showed elevated d-dimer and troponins and diagnosed with NSTEMI. CTA chest negative for PE. Transferred to [facility] and seen by cardiology. Placed on heparin gtt. On 09/24/23, [facility] showed subtotal heavily calcified prox LCx (unable to cross with wire), 50% distal LMCA, 50% calcified ostial and prox RCA, 80% heavily calcified and prox RCA. He was transferred to [facility] for PCI of ostial and prox RCA. Post procedure, hypoxic with SaO2 79% and noted to be devlin. Placed on nonrebreather with improvement in SaO2. Stat echo showed EF 25% with severe global hypokinesis of LV, lateral wall severely hypokinetic. Maintained on BiPAP and given fluids. Labs stable. Weaned to 2L O2 NC. He currently is in 1-central, resting comfortably in bed. Reports SOB. Denies PND, orthopnea, CP, palpitations, dizziness, syncope, bleeding, BINGHAM, or edema. 78M. CRF + HTN, Chol PMH: R TKR; R parietal CVA Apr 2023 PCVHx: [facility] 2013 Non-obstructive CAD Per Pt. Jul 10 negative NST w normal LVfx. HPI: L THR 09/18/23 in [place]. Admitted 09/24/23 [facility] w CP rad to L arm. Cath today w Mod calcified intermediate distal LM and LAD disease. LCF prox SECTIONIZER densely calcified (workhorse wire would not cross); Calcified ostial RCA disease and intermediate distal RCA disease. Fentanyl during procedure for back and hip pain causing hypoxia and hypotension. Assessment/Plan HF NYHA Class [] I [] II [x] III [] IV CAD/NSTEMI with unsuccessful PCI subtotal heavily calcified prox LCx and plan for PCI ostial and prox RCA - Stable. Denies CP. Reports improved SOB. Plan for PCI tomorrow with Dr. Nichole at 0800. NPOafter midnight. No allergies to contrast noted. GFR >60. Check troponin level. Risks and benefits of procedure and not doing procedure explained to pt. Pt and family verbalized understanding and agreeable. Concerns for resp depression with pain meds during PCI with shockwave tomorrow (as evidenced from resp issues post procedure yesterday). Dr. Nichole would like to consult anesthesiology to assist with case. Plan to change clopidogrel to ticagrelor. Load with 180mg tonight, then 90mg BID. Start heparin gtt and nitro paste. Continue ASA, ticagrelor, metoprolol succinate, atorvastatin, and PPI. Coronary Appropriate Use Criteria Coronary Presentation (select one): ACS > 24 hrs History of CABG (select one): No Diabetes (select one): No Anginal Classification (CCS) within 2 weeks (select one): CCS III - Symptoms with everyday living activities, i.e. moderate limitation SOB Anti-anginal Meds within 2 weeks (select all that apply): Yes: Beta Blockers, Aspirin, and Statin (Any) Stress or Imaging studies performed (select one), risk/extent of ischemia (select one if applicable): Yes, High Patient undergoing renal transplant or percutaneous valve procedure (select one): No NYHA Classification: Class III Frailty Score :5 [facility] Protocol: No HFrEF 25% - Stable. NYHA III. Stage C. Reports SOB improved. Has edema lower ext. Denies PND, orthopnea. Plan for PCI as noted above. Continue metoprolol succinate. Hx cough with losartan remotely. Stopped amlodipine. Recommend valsartan and spironolactone. Will start after PCI tomorrow. Also recommend SGLT2 inhibitor. HTN - BP controlled 125/71. Continue current meds. Home amlodipine was stopped at [facility] to allow for GDMT of HF. HLD - LDL 39 09/23/23. On atorvastatin 40mg. Hx CVA - Continue DAPT and high intensity statin. Right ECA stenosis - Continue DAPT and high intensity statin. UTI - Per family, pt with issues urinating and urinalysis showed mild UTI. He is on IV rocephin. Recommend check on culture results tomorrow and if negative than stop IV abx. Will d/w Dr. Nichole Medications: amLODIPine, 2.5 mg, Oral, Daily aspirin, 81 mg, Oral, Daily atorvastatin, 40 mg, Oral, Daily [START ON 09/26/2023] clopidogrel, 75 mg, Oral, Daily metoprolol succinate XL, 25 mg, Oral, BID [START ON 09/26/2023] pantoprazole, 40 mg, Oral, qAM AC sodium chloride 0.9%, 5-40 mL, IntraVENous, q12h sodium chloride 0.9%, 5-40 mL, IntraVENous, q12h vitamin C, 100 mg, Oral, Daily Infusion Medications: Physical Examination: Vitals: Vitals: 09/25/23 1301 BP: 125/71 Pulse: 109 Resp: (!) 26 Temp: 36.7 C (98 F) TempSrc: Temporal SpO2: 94% No intake or output data in the 24 hours ending 09/25/23 1348 Wt Readings from Last 3 Encounters: No data found for Wt Physical Exam Constitutional: Appearance: Normal appearance. HENT: Head: Normocephalic. Right Ear: External ear normal. Left Ear: External ear normal. Nose: Nose normal. Mouth/Throat: Mouth: Mucous membranes are moist. Eyes: Pupils: Pupils are equal, round, and reactive to light. Cardiovascular: Rate and Rhythm: Normal rate and regular rhythm. Pulses: Normal pulses. Heart sounds: S1 normal and S2 normal. Murmur heard. Gallop present. Pulmonary: Breath sounds: Wheezing (expiratory) present. Abdominal: General: Bowel sounds are normal. Palpations: Abdomen is soft. Musculoskeletal: General: No deformity. Normal range of motion. Cervical back: Normal range of motion. Right lower leg: Edema (pitting) present. Left lower leg: Edema (pitting) present. Comments: Wearing compression stockings Skin: General: Skin is warm and dry. Coloration: Skin is not jaundiced. Findings: No bruising. Comments: Right radial site D&I, without hematoma or ecchymosis. Pulse 2+, good sensation. Neurological: Mental Status: He is alert and oriented to person, place, and time. Psychiatric: Mood and Affect: Mood normal. Behavior: Behavior normal. Laboratory Tests: 09/24/23 GFR 75 Creat 1.01 BUN 31 K+ 4.1 Na 140 Hgb 9.1 Hct 28.4 Plt 258 WBC 8.3 High sensitivity troponin 6505 BNP 394.3 Telemetry findings: SR with PVCs Reports reviewed: Last Echo Echo showed EF 25% with severe global hypokinesis of LV, lateral wall severely hypokinetic Last Cath 09/24/23, [facility] showed subtotal heavily calcified prox LCx (unable to cross with wire), 50% distal LMCA, 50% calcified ostial and prox RCA, 80% heavily calcified and prox RCA. Last Stress Test No results found for this or any previous visit. Last EP study SUE SCORE: 152 points, 22% SUE Score Link Ashleigh Perkins Christy, PAINT TECHNICIAN - [employer]PLANE FIRST OFFICER DATE of SERVICE: 09/25/2023 Patient now transferred to [facility] for intervention on coronary lesions. Have personally reviewed the cath films. LCF SECTIONIZER without collaterals. Would treat this medically. Plan on IVL and stent of ostial RCA w IVUS. Possible PCI of distal RCA. Plan on iFR of LM and LAD w possible IVUS and stenting. Femoral approach due to documented tortuosity of right brachial artery. Stop Plavix. Load w Brilinta, continue ASA, Rx iv UFH. Given difficulty w pain control, oxygenation and BP during cath, will have anesthesia present for the procedure. LVEF 25% by echo. On BBL. Following procedure, add ARB and possibly Aldactone or SGLT2i. Watch renal fx. The indications, procedure, risks, benefits of the procedure including no treatment were explained to the patient and daughter who understood and wished to proceed. Consent has been obtained. Questions have been answered to the their satisfaction. I, Dr. mAos Nichole, saw and evaluated the patient on 09/25/2023. I personally obtained the morrow andcritical portions of the history and physical exam. I reviewed the labs, imaging studies, and electronic medical record. I reviewed the MARITZA's documentation, and discussed the patient with the MARITZA. I agree with the MARITZA's medical decision making and have edited the note to reflect my clinical findings and my assessment and plan. I performed a substantive portion of the care of this patient. documented in this [facility]04-09-2024 Progress note Author Gregory Kruse [facility] September 25, 2023 9:07am Note Date/Time September 25, 2023 9:03 am [facility] Medical Records Department [address] [place] [address] Progress Note - Cardiology 09/25/2352 MR#: [id number] Acct: [id number] Name: EBEN CRUZ Rep #:[id number] : 1945 78 From: Gregory Kruse MD PCP: Dr. Iwona Steawrt MD Status:ADM IN Location: [place] [address]- 1 Subjective Subjective The patient is sitting up in the chair this morning. Reports he still has some shortness of breath but his O2 sat is 95% on room air this morning. 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 He is now on room air at 95% saturated. An echo was performed which showed an ejection fraction of 25% with global LV systolic dysfunction but pronounced lateral wall motion abnormality. 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 The right coronary also has a calcified ostial lesion as well as another lesion in the mid to distal right coronary artery and a lesion in the posterior descending artery. All of these appear to be amenable to percutaneous revascularization however due to the heavy calcification it was felt that the patient would be better served where rotablation was an option. Dr. Jackman is contacting the interventional team at [facility] and we are awaiting the decision on timing and transfer options. Objective Data Vital Signs: Vital Signs Temp Pulse Resp BP Pulse Ox O2 Del Method O2 Flow Rate 97.8 F 107 H 16 108/71 95 Room Air 2 09/25/23 08:37 09/25/23 08:49 09/25/23 08:37 09/25/23 08:49 09/25/23 08:37 09/25/23 08:37 09/24/23 22:00 FiO2 45 09/24/23 11:07 Oxygen Flow Rate (L/min) 2 Oxygen Delivery Method Room Air Weight: 216 lb 4.375 oz Body Mass Index (BMI) 31.9 Intake & Output: Intake and Output for Last 24 Hours 0409/24/23 09/25/23 23:59 23:59 23:59 Intake Total 83.3 / 503.3 1697.88 / 1897.88 450 / 450 Output Total 700 / 700 100 / 100 Balance 83.3 / 503.3 997.88 / 1197.88 350 / 350 Lab / Micro Data Attestation: I reviewed the patient's lab results. 09/25/23 05:54 09/24/23 02:55 Labs: Laboratory Results - last 24 hr 09/24/23 02:55: B-Natriuretic Peptide 394.3 H 09/24/23 11:37: Urine Color YELLOW, Urine Clarity Cloudy, Urine pH 6.0, Ur Specific [place] 1.010, Urine Protein 15 H, Urine Glucose (UA) Normal, Urine Ketones Negative, Urine Occult Blood 25 H, Urine Nitrite Positive H, Urine Bilirubin Negative, Urine Urobilinogen Normal, Ur Leukocyte Esterase 500 H, Urine RBC 0-5 SEEN, Urine WBC >100 SEEN, Ur Squamous Epith Cells 0-5 SEEN, Amorphous Sediment 1+ URATE, Urine Bacteria 1+, Urine Mucus 0 SEEN 09/25/23 05:54: WBC 10.7, RBC 3.26 L, Hgb 10.0 L, Hct 31.8 L, MCV 97.5 H, MCH 30.7, MCHC 31.4 L, RDW Std Deviation 46.5 H, RDW Coeff of Santiago 13.0, Plt Count 330, MPV 10.9, Immature Gran % (Auto) 0.800, Neut % (Auto) 74.6 H, Lymph % (Auto) 13.9 L, [place] % (Auto) 9.7, Eos % (Auto) 0.4, Baso % (Auto) 0.6, Absolute Neuts (auto) 8.0 H, Absolute Lymphs (auto) 1.49, Nucleated RBC % 0 ABG Data ABG results: ABG 09/24/23 10:20 Specimen Type ART Sample Site L Radial pH 7.41 Bicarbonate Actual 19.4 L Total CO2 20 Base Excess -5 L O2 Saturation 98 O2 % 12.0 ABG pCO2 30.5 L ABG pO2 105 H Rubén Test Positive O2 Delivery Device NRB Vent Mode Not entered Rhythm Strip Rhythm Strip: Sinus Rhythm Rate: 104 Ectopy: PVC(s) Cardiology Labs/Tests 09/24/23 02:55: B-Natriuretic Peptide 394.3 H 09/24/23 10:20: pH 7.41, Bicarbonate Actual 19.4 L, Base Excess -5 L, O2 Saturation 98, ABG pCO2 30.5 L, ABG pO2 105 H, Rubén Test Positive 09/24/23 11:37: Urine Color YELLOW, Urine Clarity Cloudy, Urine pH 6.0, Ur Specific [place] 1.010, Urine Protein 15 H, Urine Glucose (UA) Normal, Urine KetonesNegative, Urine Occult Blood 25 H, Urine Nitrite Positive H, Urine Bilirubin Negative, Urine Urobilinogen Normal, Ur Leukocyte Esterase 500 H, Urine RBC 0-5 SEEN, Urine WBC >100 SEEN 09/25/23 05:54: WBC 10.7, RBC 3.26 L, Hgb 10.0 L, Hct 31.8 L, MCV 97.5 H, MCH 30.7, MCHC 31.4 L, Plt Count 330, MPV 10.9, Immature Gran % (Auto) 0.800, Neut %(Auto) 74.6 H, Lymph % (Auto) 13.9 L, [place] % (Auto) 9.7, Eos % (Auto) 0.4, Baso % (Auto) 0.6, Absolute Neuts (auto) 8.0 H, Nucleated RBC % 0 Rhythm: EKG: ECHO: Stress Test: Cardiac Cath: PCI: CT Surgery: Holter monitor: EPS: PPM: CXR: Chest CT Scan: Radiography Diagnostic Testing: Radiology Impression Echocardiogram 09/23/23 17:03 Interpretation Summary The left ventricular ejection fraction is 25 %. Normal LV size. Lateral wall in particular appears to be severely hypokinetic Mild-Moderate (1-2+) eccentric mitral valve insufficiency. Contrast injection was performed. Ordering Physician: Faizan Jackman Referring Physician: IWONA STEWART Performed By: Siri Chauhan RCS Chest X-Ray 09/24/23 10:06 IMPRESSION: Stable examination. Electronically Signed: Ramesh Meehan MD at 10:41 EDT , Physical Exam Const oriented x3 Orientation / Consciousness: awake HEENT normocephalic Eyes EOMs intact bilaterally Neck no JVD Carotids: Negative for bruit Chest inspection of chest normal Resp normal respiratory effort Auscultation: crackles bilateral lower Cardio regular rhythm, S1 normal heart sound, S2 normal heart sound, no murmurs, no ruband no gallops Rate: tachycardic GI soft to palpation Extremity no pedal edema Extremity Narrative: Bilateral [id number] compression hose. Skin no rashes or lesions noted Neuro Neuro Narrative: Alert and oriented x 3 Psych mental status grossly normal Assessment & Plan Assessment/Plan (1) Acute hypoxic respiratory failure: PLAN: The patient's acute respiratory failure appears to have resolved. He is now 95% saturated on room air sitting up in the chair. The patient's ejection fraction is known to be in the 25% range and his I's and O's are positive approximately 1.5 L. The patient did respond to IV Lasix yesterday after he hada hypoxic event. His chest x-ray did not show any overwhelming pulmonary edema and really was unchanged from his previous chest x-ray. (2) NSTEMI, initial episode of care: PLAN: The patient denies any anginal type symptoms this morning. He will be continued on his clopidogrel aspirin beta-melissa therapy. Will also intensify his heart failure therapy. (3) Heart failure with reduced ejection fraction: PLAN: The patient is not on an EDEL inhibitor / ARB or MRA. The patient has a history of a mild cough with Cozaar remotely. We will trial him on losartan which may need to be discontinued if it is a quality of life limiting side effects with the cough. His ejection fraction is known to be in the 25% range. He has global as well assegmental wall motion abnormalities. Would recommend discontinuing amlodipine and replacing this with a combination of an ARB and MRA. PLAN: Plan 1. Discontinue amlodipine 5 mg daily. 2. [place] losartan 50 mg every afternoon. 3. Add spironolactone 25 mg every morning starting 09/26/2023. 4. Basic metabolic panel should be reevaluated in 1 week. Currently his potassium and BUN and creatinine are within normal limits. Charges/Coding Visit Charges Inpatient E&M: 81781 Subs Hosp L3 09/25/23 0907 <Electronically signed by Gregory Kruse MD> Cosigner Signature (if applicable): CC: ~ Signed [facility] Work Phone: [phone]) 503-328204-08-2024 Progress note Author Natalia Garcia [facility] September 24, 2023 5:54pm Note Date/Time September 24, 2023 5:55 pm [facility] Medical Records Department [address] [place] [id number] Progress Note - Hospitalist 09/24/23 1736 MR#: [id number] Acct: [id number] Name: EBEN CRUZ Rep #:[id number] : 1945 78 From: Natalia Garcia DO PCP: Dr. Iwona Stewart MD Status:ADM IN Location: [place] [address] Reason for Visit Reason for Visit: NSTEMI Subjective Subjective Patient is an 78-year-old male who was a direct transfer from [facility] for an NSTEMI on 09/23/2023. [facility] a planned elective total hip replacement with Dr. Schreiber. The procedure was noted to be fairly complicated and required wound VAC placement. 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 Skilled rehab was recommended for discharge and the patient was in the process of transitioning to the [facility] TCU on 09/22/2023 however on the morning of 09/23/2023 he became acutely short of breath and his vital signs were were stable and he was not hypoxic however stat labs were ordered and he was found to have a markedly elevated D-dimer at 2557 and a troponin of 6365. EKG at that time showed sinus tachycardia with ST segment depressions and no previous for comparison. CTA of the chest was negative for PE and showed only small bilateral pleural effusions. He did not have any chest pain, diaphoresis,or nausea/vomiting at that time. Given his troponin elevation and the concern for an NSTEMI he was transferred here for further management. He does follow with cardiology as an outpatient and had a recent stress test on 06/21/2023 that was negative for any inducible ischemia. Upon arrival cardiology was consulted and plan was for catheterization which was done today on 09/24/2023 and noted subtotal heavy calcified proximal left circumflex that was unable to be crossed with a wire, 50% distal LMCA, 50% calcified ostial LAD, 70% calcified ostial D1,and 80% heavily calcified ostial and proximal RCA. Unsuccessful PCI of the subtotal heavily calcified proximal left circumflex was attempted and medical therapy was recommended however I did discuss the case with Dr. Jackman and he plans on talking to Gloria with regards to care. I was called shortly after he returned from his cardiac catheterization at whichtime he was noted to be hypoxic with oxygen saturations at 79% on room air and appeared somewhat devlin. He was placed on a nonrebreather with improvement in his oxygen saturations and cardiology was called to the bedside. A stat echocardiogram was obtained and found to show an EF of 25% with normal LV size, lateral wall in particular appeared to be severely hypokinetic with mild to moderate mitral valve insufficiency. He was maintained on BiPAP and given some IV fluids. ABG/chest x-ray/BNP were obtained and found to be stable without anyacute etiology. Clinically he improved improved and has been weaned to 2 L nasal cannula. Dopplers are pending. Objective Data Objective Data Vital Signs: Vital Signs Temp Pulse Resp BP Pulse Ox O2 Del Method O2 Flow Rate 97.8 F 89 18 98/81 H 95 Nasal Cannula 2 09/24/23 16:51 09/24/23 16:51 09/24/23 16:51 09/24/23 16:51 09/24/23 16:51 09/24/23 16:51 09/24/23 16:51 FiO2 45 09/24/23 11:07 Oxygen Flow Rate (L/min) 2 Oxygen Delivery Method Nasal Cannula Weight: 98.1 kg Body Mass Index (BMI) 31.9 Intake & Output: Intake and Output for Last 24 Hours 04/06/24 04/07/24 04/08/24 23:59 23:59 23:59 Intake Total 83.3 / 503.3 1322.88 / 1322.88 Output Total 450 / 450 Balance 83.3 / 503.3 872.88 / 872.88 Lab / Micro Data 09/24/23 02:55 09/24/23 02:55 Labs: Laboratory Results - last 24 hr 09/23/23 19:25: APTT 99.7 H* 09/24/23 02:55: WBC 8.3, RBC 2.94 L, Hgb 9.1 L, Hct 28.4 L, MCV 96.6 H, MCH 31.0, MCHC 32.0, RDW Std Deviation 44.9 H, RDW Coeff of Santiago 12.7, Plt Count 258,MPV 10.3, APTT 53.6 H, Sodium 140, Potassium 4.1, Chloride 110 H, Carbon Ednadwh12.0, Anion Gap 4 L, BUN 31 H, Creatinine 1.01, Estim Creat Clear Calc 67.38, Est GFR (MDRD) Af Amer 91, Est GFR (MDRD) Non-Af 75, BUN/Creatinine Ratio 30.7 H, Glucose 133 H, Calcium 8.5, Magnesium 2.1, Troponin I High Sens 6505 H*, B-Natriuretic Peptide 394.3 H ABG Data ABG results: ABG 09/24/23 10:20 Specimen Type ART Sample Site L Radial pH 7.41 Bicarbonate Actual 19.4 L Total CO2 20 Base Excess -5 L O2 Saturation 98 O2 % 12.0 ABG pCO2 30.5 L ABG pO2 105 H Rubén Test Positive O2 Delivery Device NRB Vent Mode Not entered Radiography Diagnostic Testing: Radiology Impression Echocardiogram 09/23/23 17:03 Interpretation Summary The left ventricular ejection fraction is 25 %. Normal LV size. Lateral wall in particular appears to be severely hypokinetic Mild-Moderate (1-2+) eccentric mitral valve insufficiency. Contrast injection was performed. Ordering Physician: Faizan Jackman Referring Physician: IWONA STEWART Performed By: Siri Chauhan RCS Chest X-Ray 09/24/23 10:06 IMPRESSION: Stable examination. Electronically Signed: Ramesh Meehan MD at 10:41 EDT , Rhythm Strip Rhythm Strip: Sinus Rhythm Physical Exam Const alert, oriented x3 and well nourished Constitutional Narrative: Older, white male, sitting up in bed, quiet, appears acutely ill but nontoxic HEENT head/scalp atraumatic and moist oral mucous membranes Head and Scalp: normocephalic Eyes PERRL, EOMs intact bilaterally and conjunctivae normal Eyes Narrative: No scleral icterus Neck no lymphadenopathy Neck Narrative: Trachea midline, no thyroid enlargement Resp clear to auscultation bilaterally Resp Narrative: Mild tachypnea Auscultation: Negative for rales, rhonchi or wheezes Cardio regular rate, regular rhythm, S1 normal heart sound, S2 normal heart sound, no murmurs, no rub, no gallops and no clicks GI normal to inspection, nondistended, normoactive bowel sounds, soft to palpation and non-tender Extremity no clubbing, cyanosis or edema Extremity Narrative: Pedal pulses are 2+ Neuro oriented x3, CN's II-XII intact bilaterally, moves all extremities and no focal motor deficits Neuro Narrative: Generalized weakness noted Psych Psych Narrative: Affect is flat which is appropriate for current situation Assessment & Plan Assessment/Plan (1) NSTEMI, initial episode of care: (2) CAD (coronary artery disease): (3) Acute hypoxic respiratory failure: (4) Acute on chronic anemia: PLAN: Plan Acute hypoxic respiratory failure -Suspect multifactorial -EF is depressed/RA looks dilated and will need to rule out PE tomorrow as long as creatinine is stable after contrast given today and patient acutely decompensated after cath -ABG was unremarkable Chest x-ray was unremarkable for acute findings -BNP was elevated however improved from previous -Patient was placed on BiPAP and seems to be clinically improving and now weanedto 2 L nasal cannula -Continue to monitor and will recommend placing on BiPAP overnight -Patient did have negative CTA at outpatient facility however this does not ruleout acute PE with his event occurring today -Will continue therapeutic Lovenox for now until can further evaluate Hypotension -This occurred shortly after cath -Was given fluid bolus by cardiology -Will continue to monitor as it appears to be stabilized NSTEMI/hypertension/hyperlipidemia -Cardiac catheterization shows multiple abnormalities however vessel was not able to be traversed -Currently medical management is recommended -Cardiology was going to discuss the case with Gloria to see if they felt that they could do a complex PCI -Should know more tomorrow -Continue aspirin -Plavix is on hold and will restart when okay with cardiology -Metoprolol on hold due to hypotension -Hold home amlodipine -Continue home atorvastatin--> lipid profile was obtained and total cholesterol is 93 with an LDL of 39 -Cardiology following-appreciate input Heart failure with reduced ejection fraction -Blood pressures are currently on the low side so we are unable to initiate any goal-directed therapy -Continue to monitor and initiate goal-directed therapy as able -Echocardiogram done today shows an EF of 25% with wall motion abnormality at the lateral wall and mild to moderate mitral valve insufficiency -Cardiology is following Acute on chronic anemia -Acute component likely related to recent surgical intervention with hip replacement -Hemoglobin appears to be relatively stable -continue to monitor -Transfuse for hemoglobin less than 7 -Appears that patient ran 11-12 prior to surgery Left total hip replacement -Was performed on 09/18/2023 -Wound VAC in place -Wound care is following -Continue scheduled Tylenol -Low-dose as needed oxycodone is available however family would like to avoid oxycodone as possible as it seems to cause significant sedation for him -PT/OT consultation -Plan for discharge to intermediate facility once medically stable Abnormal chest x-ray -Chest x-ray on admission shows chronic interstitial changes with superimposed lingular opacification concerning for infiltrate versus atelectasis -Overall high suspicion for atelectasis -Continue to monitor -Continue incentive spirometry and add Acapella -Will utilize some noninvasive ventilation for now at night this should help splint open any atelectasis as well History of stroke with bilateral carotid artery stenosis -Plavix on hold -Continue atorvastatin -Continue aspirin -Heparin drip was discontinued however patient is on therapeutic Lovenox until Ican further rule out PE GERD -Continue home Pepcid History of BPH with obstruction -Patient is not on any Flomax for this currently -Will monitor especially with recent surgery Obesity -BMI is 31.9 -Recommend weight loss -Complicates treatment, prognosis, outcomes DVT prophylaxis -Continue therapeutic Lovenox for now and transition to subcu Lovenox if no signs of VTE CODE STATUS -Full code is verified on admission Charges/Coding Visit Charges Inpatient E&M: 95966 Subs Hosp L3 09/24/23 1754 <Electronically signed by Natalia Garcia DO> Cosigner Signature (if applicable): CC: ~ Signed [facility] Work Phone: 1(120) 312-493904-07-2024 Consult note Author Faizan Jackman [facility] September 23, 2023 5:03pm Note Date/Time September 23, 2023 5:03 pm [facility] Medical Records Department [address] [place] [address] Consultation - Cardiology 09/23/23 1655 MR#: [id number] Acct: [id number] Name: DELILAHEBEN WADSWORTH Mohinder Rep #:[id number] : 1945 78 From: Faizan Jackman MD PCP: Dr. Iwona Stewart MD Status:ADM IN Location: [place] [address] Assessment & Plan Assessment/Plan (1) NSTEMI, initial episode of care: PLAN: Start on aspirin. Continue clopidogrel. Nitrates. Continue heparin. Beta-blockers. Check echocardiogram. Recommend coronary angiography with possible revascularization. Risks benefits and alternatives discussed with patient in presence of his daughter. They understand and wish to proceed. (2) CAD (coronary artery disease): PLAN: History of nonobstructive coronary artery disease diagnosed on coronary angiography in 2013. See #1 above. (3) Hypertension: PLAN: Beta-blockers, diuretics. Nitrates. (4) Dyslipidemia: PLAN: On atorvastatin. (5) History of CVA (cerebrovascular accident): PLAN: Aspirin and Plavix. (6) Edema of left lower extremity: PLAN: Recent hip surgery. Will check Doppler ultrasound to rule out DVT. HPI Consult Data Date of Consult: 09/23/23 HPI Narrative Reason for Consultation: NSTEMI HPI Narrative: 78-year-old gentleman with past medical history significant for hypertension, dyslipidemia and CVA. This last Maria Victoria, he has had total left hip replacement surgery done at [facility]. This morning, he complained of shortness of breath. Labs were drawn. He was noted to have elevated D-dimers and troponins. A CT angio of the chest was negative for pulmonary embolism. Hehas been transferred to our facility for further evaluation and management. Patient denies any chest pains. According to him, his shortness of breath has resolved. Per patient, he has had coronary angiography done at [facility] in 2013. He was told that he had some disease but not severe. [facility] Medical History (Updated 09/23/23 @ 17:[address] Faizan Jackman MD) Arthritis Hypertension Leaky heart valve Home Medications hydrocodone-acetaminophen 5-325mg 5mg-325mg 1 tab PO Q6H PRN hip pain 04/27/23 [History Last Taken 04/27/23 06:30] aspirin 81 mg tablet,delayed release 81 mg PO BREAKFAST #30 tabs 04/29/23 [Rx Last Taken Unknown] amlodipine 2.5 mg tablet 2.5 mg PO DAILY #90 tabs 05/14/23 [Rx Last Taken Unknown] atorvastatin 40 mg tablet 40 mg PO QHS #90 tabs 05/14/23 [Rx Last Taken Unknown] clopidogrel 75 mg tablet (Plavix) 75 mg PO DAILY #90 tabs 05/14/23 [Rx Last Taken Unknown] metoprolol succinate 25 mg tablet,extended release 24 hr 50 mg (2 x 25 mg) PO DAILY heart blockage #180 tabs 06/01/23 [Rx Last Taken Unknown] melatonin 10 mg capsule 10 mg PO QHS sleep 09/23/23 [History Last Taken Unknown] Allergy/AdvReac Type Severity Reaction Status Date / Time sacubitril [From Entresto] Allergy Mild cough Verified 06/19/23 10:31 valsartan [From Entresto] Allergy Mild cough Verified 06/19/23 10:31 Social History Smoking Status: Never smoker Physical Exam Narrative Comfortable. No apparent distress. Lying flat in the bed. Heart sounds 1 and 2 are normal. Chest examination shows few bibasilar crepitations. Alert oriented x 3. No ankle edema right lower extremity. 2+ edema left lower extremity. Risk Stratification Risk Stratification Applicable: No Objective Data Vital Signs: Vital Signs Temp Pulse Resp BP Pulse Ox O2 Del Method O2 Flow Rate 97.8 F 99 18 115/69 100 Nasal Cannula 2 09/23/23 14:37 09/23/23 14:37 09/23/23 14:37 09/23/23 14:37 09/23/23 14:37 09/23/23 15:39 09/23/23 15:39 Oxygen Flow Rate (L/min) 2 Oxygen Delivery Method Nasal Cannula Weight: 216 lb 4.375 oz Body Mass Index (BMI) 31.9 Lab / Micro Data 09/23/23 12:27 09/23/23 12:27 Labs: Laboratory Results - last 24 hr 09/23/23 12:20: Hemoglobin A1c 5.4 09/23/23 12:27: WBC 10.6, RBC 3.10 L, Hgb 9.5 L, Hct 30.6 L, MCV 98.7 H, MCH 30.6, MCHC 31.0 L, RDW Std Deviation 45.7 H, RDW Coeff of Santiago 12.9, Plt Count 266, MPV 10.6, Immature Gran % (Auto) 0.500, Neut % (Auto) 72.8 H, Lymph % (Auto) 13.6 L, [place] % (Auto) 10.6 H, Eos % (Auto) 1.9, Baso % (Auto) 0.6, Absolute Neuts (auto) 7.7, Absolute Lymphs (auto) 1.44, Nucleated RBC % 0, Sodium 141, Potassium 4.6, Chloride 110 H, Carbon Dioxide 26.0, Anion Gap 5, BUN31 H, Creatinine 0.92, Estim Creat Clear Calc 73.97, Est GFR (MDRD) Af Amer 102,Est GFR (MDRD) Non-Af 84, BUN/Creatinine Ratio 33.7 H, Glucose 100, Calcium 8.3 L, Total Bilirubin 0.80, AST 58 H, ALT 31, Alkaline Phosphatase 71, Troponin I High Sens 6620 H*, B-Natriuretic Peptide 435.6 H, Total Protein 6.1 L, Albumin 2.2 L, Globulin 3.9, Albumin/Globulin Ratio 0.6 L, Triglycerides 96, Cholesterol 93, LDL Cholesterol 39, VLDL Cholesterol 19, HDL Cholesterol 35 L, TSH 2.56 09/23/23 13:00: APTT 42.8 H Rhythm Strip Rhythm Strip: Sinus Rhythm Cardiology Labs/Tests 09/23/23 12:20: Hemoglobin A1c 5.4 09/23/23 12:27: WBC 10.6, RBC 3.10 L, Hgb 9.5 L, Hct 30.6 L, MCV 98.7 H, MCH 30.6, MCHC 31.0 L, Plt Count 266, MPV 10.6, Immature Gran % (Auto) 0.500, Neut %(Auto) 72.8 H, Lymph % (Auto) 13.6 L, [place] % (Auto) 10.6 H, Eos % (Auto) 1.9, Baso % (Auto) 0.6, Absolute Neuts (auto) 7.7, Nucleated RBC % 0, Sodium 141, Potassium 4.6, Chloride 110 H, Carbon Dioxide 26.0, Anion Gap 5, BUN 31 H, Creatinine 0.92, Est GFR (MDRD) Af Amer 102, Est GFR (MDRD) Non-Af 84, BUN/Creatinine Ratio 33.7 H, Glucose 100, Calcium 8.3 L, Total Bilirubin 0.80, B-Natriuretic Peptide 435.6 H, Triglycerides 96, Cholesterol 93, LDL [id number], VLDL Cholesterol 19, HDL Cholesterol 35 L 09/23/23 13:00: APTT 42.8 H Rhythm: EKG: ECG done in our emergency room showed sinus rhythm. Nonspecific ST changeswere noted. ECHO: Stress Test: Cardiac Cath: PCI: CT Surgery: Holter monitor: EPS: PPM: CXR: Chest CT Scan: Radiography Diagnostic Testing: Radiology Impression Chest X-Ray 09/23/23 12:15 IMPRESSION: Chronic interstitial changes with superimposed lingular opacification suggesting early infiltrate or atelectasis. Electronically Signed: Segundo Yoder MD at 14:24 EDT , 09/23/23 1707 <Electronically signed by Faizan Jackman MD> Cosigner Signature (if applicable): CC: Dr. Faizan Jackman MD; Dr. Chet Edmonds MD; Dr. Iwona Stewart MD~ Signed [facility] Work Phone: 1(625) 668-530204-07-2024 History and physical note Author Bret Green [facility] September 23, 2023 4:20pm Note Date/Time September 23, 2023 12:0 1pm [facility] Medical Records Department [address] [place] [address] H&P Exam - Hospitalist 09/23/23 1201 MR#: [id number] Acct: [id number] Name: EBEN CRUZ Rep #:[id number] : 1945 78 From: Bret wagner DO PCP: Dr. Iwona Stewart MD Status:ADM IN Location: [id number] HPI - General General Date of Admission: 09/23/23 Date of Service: 09/23/23 Chief Complaint: NSTEMI HPI Narrative EBEN CRUZ, is a 78 M who presented to [facility] on 09/23/2023 asa direct transfer from [facility] for NSTEMI. Patient seen at bedside on the floor shortly after arrival, daughter present. History obtained from both patient and daughter and [facility]. Patient initially presented to [facility] on 09/17 for planned elective left total hip replacement with Dr. Schreiber. Was noted to have a fairly complicated procedure requiring wound VAC placement. Patient lives at home and had very good functional status prior to this procedure per the daughter. 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 Patient had fairly significant postop pain, and PT/OT they are recommended that patient go to a skilled rehab facility on discharge prior to returning home. It appears that patient was transition to the [facility] TCU (SNF) program on afternoon of 09/21. On the morning of 09/22 around 4 AM, patient became acutely short of breath. Was noted that his vital signs were stable and he was not hypoxic at that time. Stat labs were ordered and he was noted to have a D-dimer of 2557 and troponin of 6365. EKG showed sinus tachycardia with ST depressions, unclear if changed from previous. CTA chest was negative for PE, only showed small bilateral pleural effusions. Patient notably denied any chest pain, diaphoresis or nausea during that time. Given concern for NSTEMI and because patient has follow-up with [place] cardiology in the recent past as noted below, patient was transferred to [facility] for further management. Further history obtained from patient/daughter and last cardiology office visit note on 06/19/2023. Patient presented to the [facility] ED on 04/27/2023 with strokelikesymptoms. Was given tenecteplase in the ED and admitted to the ICU. Was hospitalized from 04/27 to 04/29. Was found on CTA head and neck to have high-grade stenosis of the right ECA. MRI brain showed a mild acute right parietal infarct. Teleneurology followed and patient was discharged on aspirin and Plavix for 90 days then baby aspirin indefinitely. During that hospitalization,patient was also noted to have elevated troponins. Cardiology followed. Echo showed no significant regional wall motion abnormalities. Patient was noted to be asymptomatic from a cardiac standpoint and troponins down trended while. Wasnoted that patient has a history of CAD with last cardiac cath done in 2013, never required stenting. Had chemical nuclear stress test done on 06/21/2022 thatshowed preserved EF, normal stress test. Cardiology recommended continuing aspirin, Plavix, atorvastatin and Toprol 50 mg daily, noted that no further workup was needed at that time. During my encounter, patient was sitting up comfortably in bed, conversing normally, in no acute distress. He was mild to moderately fatigued appearing. He denied any left hip pain at rest. He was breathing comfortably on 2 L nasal cannula with oxygen saturations in the high 90s. Was borderline tachycardic with heart rate in the 90s, sinus rhythm. Blood pressure normal. Afebrile. Labs obtained on admission showed hemoglobin 9.5, similar to last value from [facility]. WBC count 10.6. BMP normal. Low albumin at 2.2. BNP 435, mildly increased from 374 back in April 2023. Troponin 6620 (was 6365 on last checkat [facility]), repeat pending. EKG showed normal sinus rhythm, mild ST changes concerning for lateral ischemia. Chest x-ray showed chronic interstitial changes with superimposed regular opacification concerning for early infiltrate versus atelectasis. 1. Asthenia Acute, secondary to left total hip arthroplasty on 09/17. Consult placed to PT and OT to evaluate and treat. information services consultant following for discharge planning. 2. Tachycardia Chronic. Metoprolol increased to 50 mg PO BIDwith hold parameters. Monitor vital signs per protocol. 3. Anemia Acute on chronic, secondary to recent orthopedic surgery. Repeat CBC on 09/23. Continue ferrous sulfate. 4. BPH - benign prostatic hyperplasia Chronic. Continue currenthome medication. 5. CAD - Coronary artery disease Chronic. Patient denies any chest pain. Continue home meds. [facility] Medical History (Reviewed 06/19/23 @ 10:30 by Petra Villegas RESIDENTIAL PROGRAM COORDINATOR, RESIDENTIAL PROGRAM COORDINATOR-C) Arthritis Hypertension Leaky heart valve Home Medications hydrocodone-acetaminophen 5-325mg 5mg-325mg 1 tab PO Q6H PRN hip pain 04/27/23 [History Last Taken 04/27/23 06:30] aspirin 81 mg tablet,delayed release 81 mg PO BREAKFAST #30 tabs 04/29/23 [Rx Last Taken Unknown] amlodipine 2.5 mg tablet 2.5 mg PO DAILY #90 tabs 05/14/23 [Rx Last Taken Unknown] atorvastatin 40 mg tablet 40 mg PO QHS #90 tabs 05/14/23 [Rx Last Taken Unknown] clopidogrel 75 mg tablet (Plavix) 75 mg PO DAILY #90 tabs 05/14/23 [Rx Last Taken Unknown] metoprolol succinate 25 mg tablet,extended release 24 hr 50 mg (2 x 25 mg) PO DAILY heart blockage #180 tabs 06/01/23 [Rx Last Taken Unknown] melatonin 10 mg capsule 10 mg PO QHS sleep 09/23/23 [History Last Taken Unknown] Allergy/AdvReac Type Severity Reaction Status Date / Time sacubitril [From Entresto] Allergy Mild cough Verified 06/19/23 10:31 valsartan [From Entresto] Allergy Mild cough Verified 06/19/23 10:31 Social History Smoking Status: Never smoker ROS Constitutional Constitutional: Reports fatigue and weakness; Denies chills or fever(s) Eyes Eyes: Denies change in vision Cardiovascular Cardiovascular: Denies chest pain, dyspnea on exertion, edema or lightheadedness Respiratory/Chest Respiratory/Chest: Denies cough, productive cough, shortness of breath at rest or wheezing Gastrointestinal Gastrointestinal: Denies abdominal pain, nausea or vomiting Genitourinary Genitourinary: Denies dysuria Musculoskeletal Musculoskeletal: Reports joint pain Vital Signs Vital Signs Vital Signs: Weight Weight: 98.1 kg Body Mass Index (BMI) 31.9 Physical Exam Const alert, oriented x3 and no apparent distress Constitutional Narrative: Pleasant elderly male, obese, mildly fatigued appearing, otherwise sitting up comfortably in bed, conversing normally, no acute distress. General Appearance: cooperative and comfortable HEENT normocephalic, head/scalp atraumatic, hearing grossly normal bilaterally and nasal mucous membranes and turbinates normal Eyes PERRL, EOMs intact bilaterally and conjunctivae normal Neck full ROM Chest inspection of chest normal Resp normal respiratory effort and no use of accessory muscles Resp Narrative: Breathing comfortably on 2 L nasal cannula. Mildly decreased breath sounds in bilateral bases, no wheezing or crackles noted. Cardio no murmurs and peripheral pulses 2+ throughout Cardio Narrative: Tachycardic, regular rhythm. GI normal to inspection, nondistended, normoactive bowel sounds, soft to palpation,non-tender and non-distended Back/Spine normal ROM Extremity no pedal edema Extremity Narrative: Left hip with wound VAC in place. Skin no rashes or lesions noted Neuro no focal motor deficits Speech: speech normal Psych mental status grossly normal Results Lab / Micro Data 09/23/23 12:27 09/23/23 12:27 Assessment & Plan Assessment/Plan (1) NSTEMI, initial episode of care: PLAN: Plan Patient is an 78-year-old male who presented [facility] on 09/22 as a direct transfer from [facility] for NSTEMI. 1. NSTEMI, history of nonobstructive CAD ? See HPI for further details. Cardiology consulted. Continue heparin drip. Continue home Plavix and atorvastatin, holding home aspirin. Continue home Toprol. Trend troponins. Okay for cardiac diet today, n.p.o. at midnight. Echo ordered. Continue cardiac monitoring. Lipid profile, A1c, TSH ordered. 2. Recent left total hip replacement with debility ? See HPI for details. Does have left hip wound VAC in place. PT/OT/case management consulted. Can consider orthopedics and wound care consults as needed. Scheduled Tylenol for pain control. Per daughter, would like to avoid oxycodone if possible as patient had moderate sedation with oxycodone; would be okay for spot doses of oxycodone 2.5 mg as needed. 3. Concern for pneumonia ? Chest x-ray on admit showed chronic interstitial changes with superimposed lingular opacification suggesting early infiltrate versus atelectasis. Afebrile, hemodynamically stable, WBC count normal on admit. No respiratory symptoms. Respiratory PCR panel and sputum culture ordered. Will hold on antibiotics for now. 4. Acute on chronic anemia ? Hemoglobin 9.5 on admit here, noted to be stable from recent hemoglobin valuesat OSH. Trend daily CBC. Continue iron supplement. 5. Recent history of CVA with carotid stenosis ? See HPI for details. Continue home Plavix and atorvastatin, holding home aspirin while patient is on heparin drip as noted above. Chronic medical conditions: ? Obesity: BMI 31 on admit. Complicates hospital course, care and prognosis. ? Hypertension: Holding home amlodipine 2.5 mg daily as patient is normotensive to borderline hypotensive on admission. Continue home Toprol. ? GERD: Continue home Pepcid. ? Reported history of BPH with obstructive symptoms: No home medications listed. Monitor for signs of obstruction. DVT prophylaxis: Heparin drip CODE STATUS: Full code, verified Expected disposition: TBD Total clinical time spent by myself addressing the patient's medical issues, reviewing all the data, and collaborating with patient's care team: 55 minutes. Charges/Coding Visit Charges Inpatient E&M: 23126 Init Hosp L2 09/23/23 1620 <Electronically signed by Bret Green DO> Cosigner Signature (if applicable): CC: Dr. Bret Green DO; Dr. Iwona Stewart MD~ Signed [facility] Work Phone: [phone] Hospital Discharge instructions Follow Up Care 09/23/2023 10:06:51 With:IWONA STEWART MD Address: [address] [place] [address]- When:2-4 days [facility] 04-07-2024 Nurse Progress note Patient c/o shortness of breath. Patient shows no distress respirations 20, unlabored, lung black clear/diminished throughout. pulse ox 95% on room air. Nurse practitioner notified. Trevor PURVIS RN Digitally Signed by LEVI Meier on 09/23/2023 07:37 AM [facility]04-07-2024 Note ORIGINAL EXAMINATION: CTA OF THE CHEST 09/23/2023 7:21 am TECHNIQUE: CTA of the chest was performed after the administration of intravenous contrast. Multiplanar reformatted images are provided for review. MIP images are provided for review. Automated exposure control, iterative reconstruction, and/or weight based adjustment of the mA/kV was utilized to reduce the radiation dose to as low as reasonably achievable. COMPARISON: Chest x-ray on 05/09/2019. CT pulmonary angiogram on 09/12/2013 HISTORY: ORDERING SYSTEM PROVIDED HISTORY: Reason for Exam: Shortness of breath and elevated troponin. Recent surgery. Rule out pulmonary embolism. FINDINGS: Pulmonary Arteries: Pulmonary arteries are adequately opacified for evaluation. No evidence of intraluminal filling defect to suggest pulmonary embolism. Main pulmonary artery is normal in caliber. Mediastinum: There are scattered subcentimeter lymph nodes in the mediastinum but none that are pathologically enlarged. The heart size is normal. There is prominent atherosclerotic coronary artery calcification. No pericardial fluid is present. The thoracic aorta is nonaneurysmal and there is no aortic dissection. Lungs/pleura: Small bilateral pleural effusions calliope player dependently. There is mild adjacent atelectasis in both lower lobes. There is no pneumothorax. Upper Abdomen: No acute findings. Soft Tissues/Bones: Mild thoracic spondylosis without fracture subluxation. IMPRESSION: No evidence of pulmonary embolism. Small bilateral pleural effusions with adjacent atelectasis. Prominent atherosclerotic coronary artery calcification. Interpreted by: Wood Harrington MD Preliminary Report By: Wood Harrington MD Electronically signed By Wood Harrington MD Dictated Date: 09/23/2023 7:24:38 AM Prelim Date: 09/23/2023 7:29:21 AM Sign Date: 09/23/2023 7:29:21 AM Ordering Provider: [facility]04-05-2024 Note Date of Service 09/21/2023 Chief Complaint weakness, left hip pain History of Present Illness Patient is an 78-year-old male, who follows with Dr. Iwona Stewart with a past medical history significant for diastolic dysfunction, coronary artery disease, hyperlipidemia, BPH and osteoarthritis, presented to [facility] on 09/18/2023 for an elective left total hip replacement by Dr.Steven Schreiber. Patient did well in surgery and was admitted to the telemetry unit for monitoring. Post-operatively patient was noted to be bradycardic with his heart rate at times dipping into the 30's and 40's. He was on metoprolol at home and this medication was held. His heart rate improved and,in fact, has now been more tachycardic with frequent PVC's. He was given magnesium sulfate IV on POD # 1 due to frequent PVC's. Patient's metoprolol was subsequently increased to 50 mg PO BID and this helped better control his heart rate. Patient was seen by PT and OT during his stay and they recommended a skilled stay under patient is able to move better and is safe to return home. Patient was approved for a swing stay today and transitioned to [facility] TCU program this afternoon. Introduced self and role of hospitalist RESIDENTIAL PROGRAM COORDINATOR in patient's stay while in the TCU. Patient states he continues to have pain in his left hip but feels that his oral medications are controlling his pain fairly well. Per orthopedics, patient's surgery was more involved than usual so patient is likely to be more painful. Patient is aware that hospitalist service will follow while he is in the TCU program and is available if he should have any needs. Patient denies any fever, chills, cough, shortness of breath, chest pain, abdominal pain, nausea or dysuria. While tachycardic, patient has been unaware of his elevated heart rate. It is possible that his heart rate has been more elevated for a while. We will continue to monitor patient closely while he is in the TCU. All questions answered. Review of Systems Review of Systems: Reviewed in detail, including general health, HEENT, cardiovascular, respiratory, gastrointestinal, genitourinary, endocrine, musculoskeletal, neurologic, vascular, skin, and psychiatric. All are negative except for those listed in the History of Present Illness. Physical Exam Vitals and Measurements No qualifying data available. General: No acute distress. Patient is alert and appropriate. Skin: No rash. Skin is warm, dry and intact. HEENT: Head is normocephalic, atraumatic. Pupils are equal, round and reactive. Neck: Supple. No lymphadenopathy, thyromegaly. Lungs: Bilaterally clear but diminished without crepitation or wheeze. Unlabored. Heart: Heart is regular rhythm, S1, S2. No murmurs, gallops or rubs. Abdomen: Abdomen is soft, nontender. Bowels sounds present in all quadrants. Extremities: No clubbing, cyanosis, or edema. Peripheral pulses palpable. No calf tenderness. Left hip surgical dressing/wound vac is intact. Neurological: Patient is awake and alert to person, place and time. Following simple commands, moving all extremities. Assessment/Plan 1. Asthenia Acute, secondary to left total hip arthroplasty on 09/17. Consult placed to PT and OT to evaluate andtreat. information services consultant following for discharge planning. 2. Tachycardia Chronic. Metoprolol increased to 50 mg PO BID with hold parameters. Monitor vital signs per protocol. 3. Anemia Acute on chronic, secondary to recent orthopedic surgery. Repeat CBC on 09/23. Continue ferrous sulfate. 4. BPH - benign prostatic hyperplasia Chronic. Continue current home medication. 5. CAD - Coronary artery disease Chronic. Patient denies any chest pain or palpitations. Continue current home medications. DVT prophylaxis with aspirin 81 mg PO BID. Code status: Full Code. Labs, diagnostic test and progress notes reviewed as noted in HPI. Plan of care discussed with patient. All questions answered. Patient verbalizes understanding and is agreeable with plan of care. This case was discussed with collaborating physician, Dr. Petr Gonzalez. 45 minutes spent reviewing past diagnostic tests, reviewing lab results, vital sign trends, medicalhistory, reviewing medications and ordering home medications, examining patient, discussed plan of care with nursing, social science teacher and therapy, collaborating with physician, and documenting in chart. CPT#56388 Problem List/Past Medical History Ongoing Acholic stool BPH - benign prostatic hyperplasia CAD - Coronary artery disease Diastolic dysfunction Erectile dysfunction High cholesterol Left hip pain Left knee pain Lumbosacral radiculitis Male hypogonadism Osteoarthritis of left hip Pre-op exam Historical Thrombocytopenia UTI (urinary tract infection) Procedure/Surgical History Inguinal hernia: 1989 Shoulder replacement Hip replacement Medications Home Medications (15) Active acetaminophen 500 mg oral tablet 1,000 mg = 2 tab(s), PRN, Oral, TID amLODIPine 5 mg oral tablet 2.5 mg = 0.5 tab(s), Oral, qDay aspirin 81 mg = 1 tab(s), Oral, BIDM atorvastatin 40 mg oral tablet 40 mg = 1 tab(s), Oral, Daily ferrous sulfate 325 mg (65 mg elemental iron) oral tablet 325 mg = 1 tab(s), Oral, BID folic acid 1 mg oral tablet 1 mg = 1 tab(s), Oral, qDay Melatonin 10 mg oral capsule 10 mg = 1 cap(s), PRN, Oral, qHS metoprolol succinate 50 mg oral TABLET extended release 50 mg = 1 tab(s), Oral, BID oxyCODONE 5 mg oral tablet ( IMMEDIATE release ) 10 mg = 2 tab(s), PRN, Oral, q4h oxyCODONE 5 mg oral tablet ( IMMEDIATE release ) See Instructions, PRN Pepcid 20 mg oral tablet 20 mg = 1 tab(s), Oral, qDay saw palmetto oral capsule See Instructions Vitamin C 500 mg, Oral, qDay Vitamin D (3) 45 units oral capsule 100 mcg, Oral, qDay zinc (as gluconate) 50 mg oral tablet 50 mg = 1 tab(s), Oral, Daily Allergies Entresto (Unknown) Wool (Unknown) Social History Smoking Status - 08/18/2017 Never smoker Alcohol - No Risk, 04/18/2020 Use: Never., 04/18/2019 Employment/School Status: Employed. 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 Financial concerns: No. Domestic Concerns: None. 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 He has 2 grown children.. Lives In: Multilevel home, 1st floor bedroom, 1st floor bathroom. Current Home Treatments walker, cane. Marital Status: Unmarried., 09/21/2023 Nutrition/Health Type of diet: Regular. Caffeine intake amount: none. Appetite Excellent. Eating Difficulties None. Enteral Feedings No. TPN Feedings No. Skin Breakdown No., 09/21/2023 Substance Abuse - No Risk, 04/18/2020 Use: Never., 04/18/2019 Tobacco - No Risk, 04/18/2020 Tobacco Use: Never (less than 100 in lifetime)., 04/18/2019 Family History CAD - Coronary artery disease: Sister. Cancer: Sister. Cerebrovascular accident: Father. Diabetes: Mother. Immunizations SARS-CoV-2 (COVID-19) mRNA-1273 vaccine: 0.5 unknown unit (03/01/21) SARS-CoV-2 (COVID-19) mRNA-1273 vaccine: 0.5 unknown unit (02/01/21) Code Status Code Status - Ordered -- 09/21/23 13:52:00 EDT, Full Code, Constant Order Digitally Signed by ELIZA STUBBS on 09/21/2023 02:12 PM [facility]04-05-2024 Evaluation + Plan noteExtracted from: Title:History and Physical Author:ELIZA STUBBS Date:09/21/23 1. Asthenia Acute, secondary to left total hip arthroplasty on 09/17. Consult placed to PT and OT to evaluate and treat. information services consultant following for discharge planning. 2. Tachycardia Chronic. Metoprolol increased to 50 mg PO BID with hold parameters. Monitor vital signs per protocol. 3. Anemia Acute on chronic, secondary to recent orthopedic surgery. Repeat CBC on 09/23. Continue ferrous sulfate. 4. BPH - benign prostatic hyperplasia Chronic. Continue current home medication. 5. CAD - Coronary artery disease Chronic. Patient denies any chest pain or palpitations. Continue current home medications. DVT prophylaxis with aspirin 81 mg PO BID. Code status: Full Code. Labs, diagnostic test and progress notes reviewed as noted in HPI. Plan of care discussed with patient. All questions answered. Patient verbalizes understanding and is agreeable with plan of care. This case was discussed with collaborating physician, Dr. Petr Gonzalez. 45 minutes spent reviewing past diagnostic tests, reviewing lab results, vital sign trends, medical history, reviewing medications and ordering home medications, examining patient, discussed plan of care with nursing, social science teacher and therapy, collaborating with physician, and documenting in chart. CPT#07611 Future Scheduled Tests Radiology* XR Spine Lumbosacral Minimum 4 Views 04/24/23 [facility] 04-05-2024 Note Discharge Instructions Thank you for allowing [facility] to assist you with your healthcare needs. The following is importantdischarge information regarding your hospital visit. Your Care Team [facility] Your Diagnosis Acute kidney injury Anemia Bradycardia CAD (coronary artery disease) HTN (hypertension) S/P total left hip arthroplasty What to do next Follow Up Appointments Follow Up with EBEN KIM PA-C, Orthopedic When 10/01/2023 03:30 PM EDT Why: This is your post-op appointment. Follow-up as scheduled. Where: [facility] [address] [address]- Follow Up with IWONA STEWART MD When Where: [address] [place] [address] [place] [address]- The Following Activity and Diet Have Been Ordered for You Discharge Driving Restrictions - Ordered -- * Other, specify in special instructions, No driving until patient can walk 100 feet with use ofcane and off all narcotics, 09/21/23 13:29:00 EDT Transfer of Care Activity - Ordered -- Activity As Tolerated, 09/21/23 13:29:00 EDT Transfer of Care Diet - Ordered -- Type of Diet: Regular Diet, 09/21/23 13:29:00 EDT The Following Equipment Has Been Ordered for You Discharge Home Equipment Transfer of Care Wound Care - Ordered -- Dressing Type: *Other (specify in special instructions), Hip, left, Okay to remove incisional Prevena wound VAC on September 25, 2023. Do not get area wet while wound VAC in place. Once removed only gentle soap and water over the incision. No topical oi... The Following Treatments Have Been Ordered for You Discharge Labs Discharge Outpatient Labwork - Ordered -- CBC and BMP, post-operative anemia, follow-up within: 2-3 weeks, Results Notify to: IWONA STEWART MD, 09/20/23 7:03:00 EDT Transfer of Care Labwork - Ordered -- CBC and BMP, Post-op Anemia, follow-up within: 3-5 days, 09/21/23 13:29:00 EDT Discharge Radiology No qualifying data available. Other Therapies Transfer of Care OT - Ordered -- Reason for therapy: Postoperative left direct anterior total hip arthroplasty, Weightbearing as tolerated with walker. Follow anterior hip precautions, 09/21/23 13:29:00 EDT Transfer of Care PT - Ordered -- Reason for therapy: Post operative left direct anterior total hip arthroplasty, Weightbearing astolerated with walker. Follow anterior hip precautions, 09/21/23 13:29:00 EDT Post Acute Orders Transfer of Care Admission Level of Care - Ordered -- Level of Care SNF, 09/21/23 13:29:26 EDT Transfer of Care Code Status - Ordered -- Full Code, Constant Order Transfer of Care Communication Order - Ordered -- Expect less than 30 day stay., 09/21/23 13:29:26 EDT Transfer of Care Communication Order - Ordered -- Continue KIRIT hose 2 weeks postoperatively. Can remove at nighttime but should remain on during the day., 09/21/23 13:29:26 EDT Transfer of Care Labwork - Ordered -- CBC and BMP, Post-op Anemia, follow-up within: 3-5 days, 09/21/23 13:29:00 EDT Transfer of Care Orders Electronically Signed By - Ordered -- 09/21/23 13:29:00 EDT, IWONA SCHREIBER MD Transfer of Care Prognosis - Ordered -- Good, Patient Aware: Yes Transfer of Care Rehab Potential - Ordered -- Rehab potential good, 09/21/23 13:29:26 EDT Someone Will Contact You Regarding These Home Health Referrals No home referrals have been ordered for you. No one will call you. Allergies Entresto (Unknown) Wool (Unknown) Medications Please ask your primary doctor or pharmacist before taking any other medication not listed, including over the counter drugs, herbal medications, vitamins and or supplements as they may interact withyour home medications. What How Much When Instructions Last Dose New famotidine (Pepcid 20 mg oral tablet) 1 tab(s) by mouth Once a day Duration: 30 Days New ferrous sulfate (ferrous sulfate 325 mg (65 mg elemental iron) oral tablet) 1 tab(s) by mouth Two (2) times a day Duration: 21 Days New folic acid (folic acid 1 mg oral tablet) 1 tab(s) by mouth Once a day Duration: 21 Days Changed aspirin 81 Milligram by mouth Twice daily with meals Duration: 30 Days Take 81 mg aspirin twice daily with food for 4 weeks postoperatively for DVT prophylaxis. Changed metoprolol (metoprolol succinate 50 mg oral TABLET extended release) 1 tab(s) by mouth Two (2) times a day Changed oxyCODONE (oxyCODONE 5 mg oral tablet ( IMMEDIATE release )) 2 tab(s) by mouth Every 4 hours as needed for Pain, scale 7-10 Changed oxyCODONE (oxyCODONE 5 mg oral tablet ( IMMEDIATE release )) See instructions 1-2 tab(s) Oral q4h Unchanged acetaminophen (acetaminophen 500 mg oral tablet) 2 tab(s) by mouth Three (3) times a day as needed for as needed for pain Duration: 14 Days not to exceed 3000 mg/ day Pickup at [facility]/pharmacy #[id number] Unchanged amLODIPine (amLODIPine 5 mg oral tablet) 0.5 tab(s) by mouth Once a day increase to 5 mg if systolic pressure stays more than 140 Unchanged ascorbic acid (Vitamin C) 500 Milligram by mouth Once a day Unchanged atorvastatin (atorvastatin 40 mg oral tablet) 1 tab(s) by mouth Every day Unchanged cholecalciferol (Vitamin D (3) 45 units oral capsule) 100 Microgram by mouth Once a day Unchanged herbal/ nutritional product (saw palmetto oral capsule) See instructions 1 CAP bid Unchanged melatonin (Melatonin 10 mg oral capsule) 1 cap by mouth Daily at bedtime as needed for for insomnia Unchanged zinc gluconate (zinc (as gluconate) 50 mg oral tablet) 1 tab(s) by mouth Every day Pharmacy Information [facility]/pharmacy #[id number]: [address], [place] [id number] [phone] What How Much When Comments Stop Taking docusate-senna (Senokot S 50 mg-8.6 mg oral tablet) 2 tab(s) by mouth Two (2) times a day Duration: 3 Days Take until first bowel movement, then as needed Stop Taking naproxen (naproxen sodium 220 mg oral capsule) 1 cap by mouth Every 8 hours as needed for as needed for pain Please take this list to your next doctor s visit. Bring all medications you take, including over the counter medications, herbals and other supplements with you to your doctor s visit. Patients and families are reminded to discard old lists and to update any records with all medication providers or retail pharmacies. Education Materials [facility] Post-operative Instructions PLEASE FOLLOW [facility] POST-OP INSTRUCTIONS GIVEN WATCH FOR SIGNS OF INFECTION: call the office ([phone]) if experencing any of the following: (Usually appears 36-48 hours after surgery) Increased temperature (101 degrees Fahrenheit or higher) Redness or swelling Increased uncontrolled pain Foul odor or drainage Calf discomfort Significant swelling Or if having any chest pain, shortness of breath, or difficulty breathing or swallowing call the office or go the nearest Emergency Room. If you have any questions, please call your doctor at the number listed on your follow up instructions. Form: 338A ([id number]) R: 10/22 Additional Information VACCINATE! IT SAVES LIVES! Members of the community who have not yet received the COVID-19 vaccine and would like to receive it can visit one of [facility] vaccine clinics. There are many vaccine clinic locations within the [facility]. For locations and available times, please visit https://gettheshot.coronavirus.[place].gov/. It is important to note that some COVID mobile vaccine clinics are held outdoors and may be canceled in rainy or stormy conditions. To learn more about pediatric vaccinations (ages 5-11), we invite you to visit the [employer] webpage. [email or web address]/[email or web address] [email or web address] learn more about the COVID-19 vaccine, we invite you to visit the CDC website for a list of frequently asked questions.https://www.cdc.gov/coronavirus/2019-ncov/vaccines/faq.html [employer] Patient Portal Access Instructions: Stay connected with your healthcare team and access your personal medical information anytime with the [employer] Patient Portal. Please follow the directions below to create your [employer] account: 1.Access the email account you provided upon registration to the hospital/physician office.2.Look for an invitation email from [facility].3.Open the email and access the invitation link: AcceptInvitation to [employer].4.Fill in the required black to create your account. To access your account, visit [email or web address]. Click the blue button labeled Access Patient Portal and then log in with the username and password that you created in the steps above. You will be able to view your test results, lab results, a summary of your visits, upcoming appointments and more. There is also a convenient messaging option where you can send secure messages to your p rovider. In addition, you will have the ability to download any documents or summaries to your computer and/or send the information securely to a physician. Remember that your healthcare information is confidential, so carefully consider who you will allowto register on the [facility] Patient Portal for access to your information. You can also access the [facility] Patient Portal on the [facility] maritza. Simply click on Patient Portal and then log into your account. If you would like to receive a full copy of your medical records, please contact the [facility] Medical Records Department by calling [phone], Sunday through Sunday between 8 a.m. and 4:30 p.m. HOW TO SAFELY DISPOSE OF PRESCRIPTION MEDICATIONS Please use one of the following methods to safely dispose of your unused medications. 1.Use a drug disposal kit: the drug disposal pouch allows you to safely discard your old and unuseddrugs. Ask your nurse to give you one when you are discharged.2.Visit a local take-back location: Many local pharmacies and police departments have programs that collect old and unwanted prescriptiondrugs. Call your local pharmacy or go to http://[employer]/8Q4Cr3q to find one close to you.3.Make use of household items: Use cat litter or old coffee grounds to dispose medications if other options arenot available. Mix your drugs with these household products, seal them in an airtight container andthrow it into the garbage. Call [facility]: [phone] to be sure your drugs can be disposed of in this way. Some medicines may require a different approach.4.Never flush your medications down the toilet. IF YOU HAVE BEEN PRESCRIBED AN OPIOID FOR PAIN If you have been prescribed [...] have withdrawal symptoms when a medication is stopped, can develop within a few days. KNOW [...] children, family, friends and visitors). The last page of this document has been signed and retained as a CHART COPY. Signatures Patient Education Materials [facility] Post-op Instruction 01/2017 ([id number]) Medication Leaflets My discharge plan and instructions have been reviewed and explained to me and IANTHONY RAY P understand my current condition and have read and understand these discharge instructions. I have received a written copy of the plan/instructions. If I have questions, I am aware that I should contact my d octor. Patient/[employer] Signature: Date/Time: Relationship to Patient: Witness Name/Signature: Date/Time: [facility]04-05-2024 Discharge summary Date of Service September 21, 2023 Discharge Diagnosis Acute kidney injury (N17.9 - ICD-10-CM) Anemia (D64.9 - ICD-10-CM) Bradycardia (R00.1 - ICD-10-CM) CAD (coronary artery disease) (I25.10 - ICD-10-CM) HTN (hypertension) (I10 - ICD-10-CM) S/P total left hip arthroplasty (Z96.642 - ICD-10-CM) Hospital Course The patient was sitting in bedside chair upon examination. Patient denies any chest pain, shortnessof breath, dizziness, lightheadedness, nausea or vomiting, or calf pain. No adverse overnight events. Pain has been controlled on medications. Patient does report his pain is primarily when he is up and moving. The pain is controlled on medications. He has been participating with physical therapy and states he has been struggling getting in and out of bed. He does live home alone but will have a daughter around briefly until next Sunday. Patient is a 78-year-old male who has had ongoing pain in his left hip for over 1 year. The pain progressively became worse. Patient had pain with all activities. After failing conservative measures,the patient opted to proceed with a direct anterior left total hip arthroplasty. The patient underwent the above stated procedure on September 18, 2023. Patient did receive perioperative antibiotics. Intraoperatively was uneventful. For details, please see dictated operative note. The patient was placed in thigh-high teds, bilateral SCDs, remained stable in recovery. Patient wasadmitted to the second floor at [facility]. The patient's pain was managed with the use of IV and p.o. pain medications. Patient participated in physical therapy. Patient lives home alone and was having difficulty with therapy in the hospital. Therapy was concerned about discharge home and patient obtained approval for the swing unit at [facility]. Postoperatively patient did undergo some bradycardia and was appropriately treated on the floor. Patient has never been symptomatic with any chest pain or shortness of breath. The patient is followed by local box sealing inspector at [facility]. Patient was discharged on postoperative day # 3 to transitional care unit at [facility]. Patient will continue with pain medications including Tylenol and oxycodone as needed. Patient states at rest he is doing well but his pain is primarily when up and moving. He has having difficulty getting up and out of the bed. Patient was placed on ferrous sulfate and folic acid for postoperative anemia. He is currently on aspirin 81 mg twice daily for DVT prophylaxis. Patient will follow-up with [facility] per postop instructions. I do recommend patient follow-up with the primary care provider in approximately 2-3 weeks post operatively for follow-up of lab work and postoperative anemia. Allergies Entresto (Unknown) Wool (Unknown) Procedures Direct anterior left total hip arthroplasty Consults Consult to Physician - Ordered -- 09/18/23 17:05:00 ANA ANTHONY RACHEL L APRN-AIRPLANE FIRST OFFICER, Routine, ok to see tomorrow, Constant order, Medical physician. Objective Vitals and Measurements T: 36.8 C (Oral) TMIN: 36.6 C (Oral) TMAX: 37.3 C (Oral) HR: 65(Monitored) RR: 18 BP: 119/56 SpO2: 93% Weight Dosing Weight: 95.3 kg (09/18/23) Dosing Weight: 95.3 kg (09/18/23) Vital signs stable, afebrile Left hip is soft and supple SCD's and KIRIT Hose in place bilaterally Patient is able to plantarflex and dorsiflex actively Sensation is intact to saphenous, sural, superficial and deep peroneal, and tibial distribution Prevena incisional wound VAC in place with no evidence of any drainage in canister or tubing Negative signs and symptoms of DVT, negative Homans bilaterally Code Status Code Status - Ordered -- 09/18/23 13:10:00 EDT, Full Code, Constant Order Admission Date September 18, 2023 Discharge Date September 21, 2023 Medications Changed [id number] Milligram by mouth twice daily with meals for 30 Days. Take 81 mg aspirin twice daily with food for 4 weeks postoperatively for DVT prophylaxis.. Unchanged acetaminophen (acetaminophen 500 mg oral tablet)2 tab(s) by mouth three (3) times a day as needed as needed for pain for 14 Days. not to exceed 3000 mg/day. Refills: 0. amLODIPine (amLODIPine 5 mg oral tablet)0.5 tab(s) by mouth once a day. increase to 5 mg if systolic pressure stays more than 140. ascorbic acid (Vitamin C)500 Milligram by mouth once a day. atorvastatin (atorvastatin 40 mg oral tablet)1 tab(s) by mouth every day. cholecalciferol (Vitamin D (3) 45 units oral capsule)100 Microgram by mouth once a day. docusate-senna (Senokot S 50 mg-8.6 mg oral tablet)2 tab(s) by mouth two (2) times a day for 3 Days. Take until first bowel movement, then as needed. Refills: 0. famotidine (Pepcid 20 mg oral tablet)1 tab(s) by mouth once a day for 30 Days. Refills: 0. ferrous sulfate (ferrous sulfate 325 mg (65 mg elemental iron) oral tablet)1 tab(s) by mouth two (2) times a day for 21 Days. Refills: 0. folic acid (folic acid 1 mg oral tablet)1 tab(s) by mouth once a day for 21 Days. Refills: 0. herbal/nutritional product (saw palmetto oral capsule)1 CAP bid. melatonin (Melatonin 10 mg oral capsule)1 cap by mouth daily at bedtime as needed for insomnia. metoprolol (Metoprolol Succinate ER 25 mg oral TABLET extended release)1 tab(s) by mouth two (2) times a day. oxyCODONE (oxyCODONE 5 mg oral tablet ( IMMEDIATE release ))1-2 tab(s) Oral q4h; as needed as needed for pain. Refills: 0. zinc gluconate (zinc (as gluconate) 50 mg oral tablet)1 tab(s) by mouth every day. Discontinued naproxen (naproxen sodium 220 mg oral capsule)1 cap by mouth every 8 hours as needed as needed for pain. Follow Up Follow Up with EBEN KIM PA-C, Orthopedic When 10/01/2023 03:30 PM EDT Why: This is your post-op appointment. Follow-up as scheduled. Where: [facility] [address] [place] [id number]- Follow Up with IWONA STEWART MD When Where: [address] [place] [address]- Follow Up Appointments No qualifying data available. Follow Up Labs/Studies Discharge Labs Discharge Outpatient Labwork - Ordered -- CBC and BMP, post-operative anemia, follow-up within: 2-3 weeks, Results Notify to: IWONA STEWART MD, 09/20/23 7:03:00 EDT Discharge Studies No Follow-up Studies Discharge Diet No qualifying data available. Discharge Activity No qualifying data available. Condition on Discharge 1. Status post direct anterior left total hip arthroplasty postop day #2 2. Continue pain medications: Tylenol and oxycodone. We are avoiding postoperative nonsteroidal anti-inflammatories due to his past history of stroke. 3. DVT prophylaxis: Take 81 mg aspirin twice daily with food for 4 weeks postoperatively for DVT prophylaxis. Patient denies past history of DVT or pulmonary embolism. 4. Physical therapy: Weightbearing as tolerated with walker 5. H & H: Patient has had some postoperative anemia and was placed on ferrous sulfate and folicacid. Patient did have 700 mL estimated blood loss. Postoperative anemia may be due to to postoperative blood loss versus dilutional component. Postoperatively he did drop to 9.9 with his hemoglobin.Plan is for patient to follow back with his primary care physician in approximately 3 weeks postoperatively with repeat lab work. Lab order is on chart. 6. Encouraged incentive spirometry 7. Prevena incisional wound VAC: Plan will be for removal of the incisional wound VAC on September 25, 2023. Once removed he is allowed to shower and get the incision wet. Avoid any topical ointments overthe incision for 6 weeks postoperatively. 8. Continue postoperative medical management per medicine 9. Postoperative constipation: Patient reports having a bowel movement. He can now use the senna radha as-needed basis if he has any constipation 10. Disposition: Patient did obtain precertification for the transitional care unit at [facility]. Case was discussed with medicine and appropriate for discharge today. Orthopedics will now sign off of the case for discharge to the transitional care unit today. Medications that were initially sent to the pharmacy will be canceled. He will continue those medications while in the hospital. Continue to follow recommendations above with regards to the incisional wound VAC. Patient will keep his scheduled follow-up appointment with [facility] for 2-week follow-up with x-rays on arrival. Please contact orthopedics with any concerns or questions. I have reviewed the [place] Automated Rx Reporting System (OARRS) report for this patient for refill pattern and other prescriber involvement as part of the appropriate surveillance for the provision ofacute and chronic controlled medications. The report was requested and reviewed on the date of thisentry, and was considered in the prescribing process This dictation was created using voice recognition software. Phonetic and/or grammatical errors mayexist. Readmission Risk/Palliative Score LACE Score: 4 (09/18/23 15:36:00) Discharge Disposition Stable Digitally Signed by EBEN KIM PA-C on 09/21/2023 01:17 PM [facility]04-05-2024 Note Date of Service 09/21/2023 Chief Complaint left hip pain Subjective Patient seen and evaluated this morning while resting in chair in his room. He states that his lefthip pain is a little better controlled this morning. Patient denies any chest pain or palpitations.He is aware that we increased his metoprolol this morning to try to better control his heart rate. Heart rate remains upper 90's to low 100's but is better controlled since yesterday. Patient is waiting for a precert to stay in [facility] swing program for therapy before going home. We are hoping that we will be able to get that today. Patient denies any fever, chills, cough, shortness of breath, chest pain, abdominal pain, nausea or dysuria. Labs and vital signs reviewed and stable. Physical exam was unremarkable. From hospitalist perspective, patient is medically optimized to transition to swing program as soon as precert is obtained. All questions answered. Objective Vitals and Measurements T: 36.8 C (Oral) TMIN: 36.6 C (Oral) TMAX: 37.3 C (Oral) HR: 101(Monitored) RR: 18 BP: 119/56 SpO2:93% Intake and Output 7AM Yesterday to 7AM Today Intake and Output (Last 24 hours) Intake Oral Intake 380.00 Supplement Intake 120.00 Output Urine Voided 300.00 Stool Count 1.00 Urine Count 3.00 Diaper Count 1.00 Total Summary Total Intake 500.00 Total Output 300.00 Fluid Balance 200.00 Physical Exam General: No acute distress. Patient is alert and appropriate. Skin: No rash. Skin is warm, dry and intact. HEENT: Head is normocephalic, atraumatic. Pupils are equal, round and reactive. Neck: Supple. No lymphadenopathy, thyromegaly. Lungs: Bilaterally clear but diminished without crepitation or wheeze. Unlabored. Heart: Heart is regular rhythm, S1, S2. No murmurs, gallops or rubs. Abdomen: Abdomen is soft, nontender. Bowels sounds present in all quadrants. Extremities: No clubbing, cyanosis; mild lower extremity edema noted. Peripheral pulses palpable. No calf tenderness. Left hip surgical dressing/wound vac intact. Neurological: Patient is awake and alert to person, place and time. Following simple commands, moving all extremities. Weight Dosing Weight: 95.3 kg (09/18/23) Dosing Weight: 95.3 kg (09/18/23) Medications Medications (25) Active Scheduled: (10) amLODIPine 5 mg tablet 2.5 mg 0.5 tab(s), Oral, qDay ascorbic acid 500 mg tablet 500 mg 1 tab(s), Oral, qDay aspirin 81 mg EC 81 mg 1 tab(s), Oral, BIDM atorvastatin 40 mg tablet 40 mg 1 tab(s), Oral, Daily docusate sodium 100 mg Capsule 100 mg 1 cap(s), Oral, BID famotidine 20 mg tablet 20 mg 1 tab(s), Oral, qDay ferrous sulfate 325 mg Tablet 325 mg 1 tab(s), Oral, BID folic acid 1 mg tablet 1 mg 1 tab(s), Oral, qDay metoprolol succinate 50 mg ER tablet 50 mg 1 tab(s), Oral, BID multivitamin (Myadec) with minerals Therapeutic Multiple Vitamins with Minerals Tablet 1 tab(s), Oral, qDayM Continuous: (0) PRN: (15) acetaminophen 325 mg Tablet 650 mg 2 tab(s), Oral, q4h albumin human 5% 12.5 gram(s) 250 mL, IV Piggyback, AsDirected albumin human 5% 12.5 gram(s) 250 mL, IV Piggyback, AsDirected diphenhydramine 25 mg tablet 25 mg 1 tab(s), Oral, q6h diphenhyDRAMINE 50 mg/mL (1 mL) INJ 25 mg 0.5 mL, IV Push, q6h docusate-senna (Senokot S) 50 mg-8.6 mg Tablet 2 tab(s), Oral, BID magnesium hydroxide 8% Suspension 30 mL UD 30 mL, Oral, AsDirected melatonin 3 mg tablet 9 mg 3 tab(s), Oral, qHS metoprolol 1 mg/mL (5mL) vial 5 mg 5 mL, IV Push, q4h morphine 2 mg/mL 1 mL syringe 2 mg 1 mL, IV Push, q1h ondansetron 2 mg/ 1 mL 2 mL INJ 4 mg 2 mL, IV Push, q8h oxycodone 5 mg tablet (immediate release) 5 mg 1 tab(s), Oral, q4h oxycodone 5 mg tablet (immediate release) 10 mg 2 tab(s), Oral, q4h prochlorperazine 10 mg/2 mL vial 5 mg 1 mL, IV Push, q6h sodium biphosphate-sodium phosphate 19 gm-7 gm Enema 133 mL, Rectal, qDay Lab Results 09/19 05:11 WBC: 11.5 H Hgb: 9.9 L Hct: 29.0 L Platelet: 168 Neutrophil %: 72.4 Glucose Level: 121 H Sodium Level: 140 Potassium Level: 4.9 BUN: 32 H Creatinine Lvl (s): 1.19 Imaging Results and Diagnostics XR Hip Left w/Pelvis 4 Views Result Date: September 18, 2023 Verified By: MOODY BARNARD MD CLINICAL STATEMENT: IMPRESSION: Expected postsurgical changes status post left total hip arthroplasty. EKG No qualifying data available. Assessment/Plan 1. S/P total left hip arthroplasty Chronic, s/p left total hip arthroplasty. POD # 3. Management per primary team. Pain well-controlled on oral medications. 2. Anemia Hemoglobin was 13 in early July 2023 - down to 11 yesterday and 9.9 yest am. This is likely partially due to blood loss vs dilutional. Primary team sent in prescriptions for ferrous sulfate and folic acid to pharmacy. They also ordered a repeat CBC prior to follow-up with PCP in the next week. 3. Bradycardia Resolved. Patient has been tachycardic. Increase metoprolol to 50 mg PO BID. 4. Acute kidney injury Resolved. 5. CAD (coronary artery disease) Continue aspirin, statin, beta-melissa. 6. HTN (hypertension) SBP goal 140 or less. Continue home antihypertensives. Patient seen and evaluated this morning while resting in bed. Physical exam was unremarkable. Lab results and vital signs trends reviewed and were stable. From hospitalist perspective, patient is medically optimized for discharge home today. Hospitalist service will sign-off at this time. Please feel free to re- consult service if there are any changes in condition. Thank you for including hospitalist service in the care of your patient! DVT prophylaxis with aspirin 81 mg PO BID. Code status: Full Code. Labs, diagnostic test and progress notes reviewed as noted in HPI. Plan of care discussed with patient. All questions answered. Patient verbalizes understanding and is agreeable with plan of care. This case was discussed with collaborating physician, Dr. Petr Gonzalez. Anticipated Date of Discharge 09/21/2023 Time Spent 35 minutes spent reviewing past diagnostic tests, reviewing lab results, vital sign trends, medicalhistory, reviewing medications and ordering home medications, examining patient, discussed plan of care with nursing, social science teacher and therapy, collaborating with physician, and documenting in chart. Digitally Signed by ELIZA STUBBS on 09/21/2023 12:17 PM [facility] [id number] Note Date of Service 09/20/2023 Chief Complaint left hip pain Subjective Patient seen and evaluated this morning while resting in chair in his room. He states that he is doing well this morning and denies any new problems or concerns. In reviewing telemetry, patient has had no episodes of bradycardia but has been intermittently tachycardic and got a one-time dose of metoprolol last night. His heart rate is currently in the 80's on the monitor. He continues to have fairly consistent ventricular bigeminy on the monitor. Patient is asymptomatic with this. Patient updated that his renal function returned to the normal limits today. He feels that his urinating frequently. He further denies any fever, chills, cough, shortness of breath, chest pain, abdominal pain, naus ea or dysuria. Labs and vital signs reviewed and appear stable. Physical exam was unremarkable. From hospitalist perspective, patient is medically optimized for discharge home today. Will defer to primary team to make the final decision on discharge. All questions answered. Objective Vitals and Measurements T: 36.8 C (Oral) TMIN: 36.6 C (Oral) TMAX: 37.0 C (Oral) HR: 98(Monitored) RR: 16 BP: 109/55 SpO2: 93% Intake and Output 7AM Yesterday to 7AM Today Intake and Output (Last 24 hours) Intake Oral Intake 480.00 Supplement Intake 480.00 Output Urine Voided 100.00 Stool Count 0.00 Urine Count 4.00 Emesis Count 0.00 Total Summary Total Intake 960.00 Total Output 100.00 Fluid Balance 860.00 Physical Exam General: No acute distress. Patient is alert and appropriate. Skin: No rash. Skin is warm, dry and intact. HEENT: Head is normocephalic, atraumatic. Pupils are equal, round and reactive. Neck: Supple. No lymphadenopathy, thyromegaly. Lungs: Bilaterally clear but diminished without crepitation or wheeze. Unlabored. Heart: Heart is regular rhythm, S1, S2. No murmurs, gallops or rubs. Abdomen: Abdomen is soft, nontender. Bowels sounds present in all quadrants. Extremities: No clubbing, cyanosis, or edema. Peripheral pulses palpable. No calf tenderness. Left hip surgical dressing is dry and intact. Neurological: Patient is awake and alert to person, place and time. Following simple commands, moving all extremities. Weight Dosing Weight: 95.3 kg (09/18/23) Dosing Weight: 95.3 kg (09/18/23) Medications Medications (26) Active Scheduled: (13) acetaminophen 500 mg Tablet 1,000 mg 2 tab(s), Oral, q6hr amLODIPine 5 mg tablet 2.5 mg 0.5 tab(s), Oral, qDay ascorbic acid 500 mg tablet 500 mg 1 tab(s), Oral, qDay aspirin 81 mg EC 81 mg 1 tab(s), Oral, BIDM atorvastatin 40 mg tablet 40 mg 1 tab(s), Oral, Daily docusate sodium 100 mg Capsule 100 mg 1 cap(s), Oral, BID docusate-senna (Senokot S) 50 mg-8.6 mg Tablet 2 tab(s), Oral, BID famotidine 20 mg tablet 20 mg 1 tab(s), Oral, qDay ferrous sulfate 325 mg Tablet 325 mg 1 tab(s), Oral, BID folic acid 1 mg tablet 1 mg 1 tab(s), Oral, qDay magnesium hydroxide 8% Suspension 30 mL UD 30 mL, Oral, Daily metoprolol succinate 50 mg ER tablet 25 mg 0.5 tab(s), Oral, BID multivitamin (Myadec) with minerals Therapeutic Multiple Vitamins with Minerals Tablet 1 tab(s), Oral, qDayM Continuous: (1) NS (0.9% nacl) 1,000 mL 1,000 mL, Intravenous, 100 mL/hr PRN: (12) acetaminophen 325 mg Tablet 650 mg 2 tab(s), Oral, q4h albumin human 5% 12.5 gram(s) 250 mL, IV Piggyback, AsDirected albumin human 5% 12.5 gram(s) 250 mL, IV Piggyback, AsDirected diphenhydramine 25 mg tablet 25 mg 1 tab(s), Oral, q6h diphenhyDRAMINE 50 mg/mL (1 mL) INJ 25 mg 0.5 mL, IV Push, q6h melatonin 3 mg tablet 9 mg 3 tab(s), Oral, qHS morphine 2 mg/mL 1 mL syringe 2 mg 1 mL, IV Push, q1h ondansetron 2 mg/ 1 mL 2 mL INJ 4 mg 2 mL, IV Push, q8h oxycodone 5 mg tablet (immediate release) 5 mg 1 tab(s), Oral, q4h oxycodone 5 mg tablet (immediate release) 10 mg 2 tab(s), Oral, q4h prochlorperazine 10 mg/2 mL vial 5 mg 1 mL, IV Push, q6h sodium biphosphate-sodium phosphate 19 gm-7 gm Enema 133 mL, Rectal, qDay Lab Results 09/19 05:11 WBC: 11.5 H Hgb: 9.9 L Hct: 29.0 L Platelet: 168 Neutrophil %: 72.4 Glucose Level: 121 H Sodium Level: 140 Potassium Level: 4.9 BUN: 32 H Creatinine Lvl (s): 1.19 09/18 14:59 Glucose Level: 119 H Sodium Level: 138 Potassium Level: 4.3 BUN: 31 H Creatinine Lvl (s): 1.31 H 09/18 05:20 WBC: 9.4 Hgb: 11.0 L Hct: 32.2 L Platelet: 192 Neutrophil %: 72.0 Glucose Level: 129 H Sodium Level: 136 Potassium Level: 4.9 BUN: 28 H Creatinine Lvl (s): 1.31 H Imaging Results and Diagnostics XR Hip Left w/Pelvis 4 Views Result Date: September 18, 2023 Verified By: MOODY BARNARD MD CLINICAL STATEMENT: IMPRESSION: Expected postsurgical changes status post left total hip arthroplasty. EKG Electrocardiogram [AOH] (EKG [AOH]) - InProcess -- 09/19/23 7:35:00 EDT Assessment/Plan 1. S/P total left hip arthroplasty Chronic, s/p left total hip arthroplasty. POD # 2. Management per primary team. Pain well-controlled on oral medications. 2. Anemia Hemoglobin was 13 in early July 2023 - down to 11 yesterday and 9.9 this am. This is likely partially due to blood loss vs dilutional. Primary team sent in prescriptions for ferrous sulfate and folic acid to pharmacy. They also ordered a repeat CBC prior to follow-up with PCP in the next week. 3. Bradycardia Patient was bradycardic upon return from PACU. He was briefly as low as 35. EKG obtained and similar to previous EKG done on 07/23/2023. Patient was not having any chest pain, palpitations. No lightheadedness or dizziness. Stat labs done with normal potassium. Magnesium was 1.8. He received a dose ofmag sulfate due to frequent PVCs. EKG done yesterday morning with no significant changes. He does continue to have PVCs. Potassium level this morning is 4.9, mag 2.2. Continues to be asymptomatic. Metoprolol was restarted yesterday due to heart rate mildly elevated, low 100's. No further episodes of bradycardia noted on the monitor. Patient continues to ventricular bigeminy on the monitor at times but remains asymptomatic. Would recommend following up with cardiology as an outpatient. 4. Acute kidney injury Creatinine was 1.31 yesterday but back to baseline today, 1.15. 5. CAD (coronary artery disease) Continue aspirin, statin, beta-melissa. 6. HTN (hypertension) SBP goal 140 or less. Continue home antihypertensives. Patient seen and evaluated this morning while resting in bed. Physical exam was unremarkable. Lab results and vital signs trends reviewed and were stable. From hospitalist perspective, patient is medically optimized for discharge home today. Hospitalist service will sign-off at this time. Please feel free to re- consult service if there are any changes in condition. Thank you for including hospitalist service in the care of your patient! DVT prophylaxis with aspirin 81 mg PO BID. Code status: Full Code. Labs, diagnostic test and progress notes reviewed as noted in HPI. Plan of care discussed with patient. All questions answered. Patient verbalizes understanding and is agreeable with plan of care. This case was discussed with collaborating physician, Dr. Petr Gonzalez. Time Spent 35 minutes spent reviewing past diagnostic tests, reviewing lab results, vital sign trends, medicalhistory, reviewing medications and ordering home medications, examining patient, discussed plan of care with nursing, social science teacher and therapy, collaborating with physician, and documenting in chart. Digitally Signed by ELIZA STUBBS on 09/20/2023 09:47 AM [facility]04-04-2024 Note Date of Service September 20, 2023 Subjective The patient was sitting in bed upon examination. Patient denies any chest pain, shortness of breath, dizziness, lightheadedness, nausea or vomiting, or calf pain. No adverse overnight events. Pain has been controlled on medications. Patient states he is feeling well this morning. He does not feel dizzy or lightheaded when he gets up. He has not had any chest pain. Patient was kept an additional night secondary to treatment yesterday with his bradycardia. Following vitals patient did have more low tachycardia last night but currently today within normal limits. Blood pressures have been stable. He has been working with physical therapy. Patient does have his daughter who is helping him out until early next week. Case management is involved with appropriate discharge planning. Objective Vitals and Measurements T: 36.7 C (Oral) TMIN: 36.6 C (Oral) TMAX: 37.0 C (Oral) HR: 88(Apical) RR: 16 BP: 116/67 SpO2: 96% Intake and Output 7AM Yesterday to 7AM Today Intake and Output (Last 24 hours) Intake Oral Intake 480.00 Supplement Intake 360.00 Output Urine Voided 100.00 Stool Count 0.00 Urine Count 4.00 Emesis Count 0.00 Total Summary Total Intake 840.00 Total Output 100.00 Fluid Balance 740.00 Physical Exam Vital signs stable, afebrile Left thigh is soft and supple SCD's and KIRIT Hose in place bilaterally Patient is able to plantarflex and dorsiflex actively Sensation is intact to saphenous, sural, superficial and deep peroneal, and tibial distribution Prevena incisional wound VAC in place with no output/drainage in tubing or canister Negative signs and symptoms of DVT, negative Homans bilaterally Weight Dosing Weight: 95.3 kg (09/18/23) Dosing Weight: 95.3 kg (09/18/23) Medications Medications (24) Active Scheduled: (11) acetaminophen 500 mg Tablet 1,000 mg 2 tab(s), Oral, q6hr amLODIPine 5 mg tablet 2.5 mg 0.5 tab(s), Oral, qDay ascorbic acid 500 mg tablet 500 mg 1 tab(s), Oral, qDay aspirin 81 mg EC 81 mg 1 tab(s), Oral, BIDM atorvastatin 40 mg tablet 40 mg 1 tab(s), Oral, Daily docusate sodium 100 mg Capsule 100 mg 1 cap(s), Oral, BID docusate-senna (Senokot S) 50 mg-8.6 mg Tablet 2 tab(s), Oral, BID famotidine 20 mg tablet 20 mg 1 tab(s), Oral, qDay magnesium hydroxide 8% Suspension 30 mL UD 30 mL, Oral, Daily metoprolol succinate 50 mg ER tablet 25 mg 0.5 tab(s), Oral, BID multivitamin (Myadec) with minerals Therapeutic Multiple Vitamins with Minerals Tablet 1 tab(s), Oral, qDayM Continuous: (1) NS (0.9% nacl) 1,000 mL 1,000 mL, Intravenous, 100 mL/hr PRN: (12) acetaminophen 325 mg Tablet 650 mg 2 tab(s), Oral, q4h albumin human 5% 12.5 gram(s) 250 mL, IV Piggyback, AsDirected albumin human 5% 12.5 gram(s) 250 mL, IV Piggyback, AsDirected diphenhydramine 25 mg tablet 25 mg 1 tab(s), Oral, q6h diphenhyDRAMINE 50 mg/mL (1 mL) INJ 25 mg 0.5 mL, IV Push, q6h melatonin 3 mg tablet 9 mg 3 tab(s), Oral, qHS morphine 2 mg/mL 1 mL syringe 2 mg 1 mL, IV Push, q1h ondansetron 2 mg/ 1 mL 2 mL INJ 4 mg 2 mL, IV Push, q8h oxycodone 5 mg tablet (immediate release) 5 mg 1 tab(s), Oral, q4h oxycodone 5 mg tablet (immediate release) 10 mg 2 tab(s), Oral, q4h prochlorperazine 10 mg/2 mL vial 5 mg 1 mL, IV Push, q6h sodium biphosphate-sodium phosphate 19 gm-7 gm Enema 133 mL, Rectal, qDay Lab Results 09/19 05:11 WBC: 11.5 H Hgb: 9.9 L Hct: 29.0 L Platelet: 168 Neutrophil %: 72.4 Glucose Level: 121 H Sodium Level: 140 Potassium Level: 4.9 BUN: 32 H Creatinine Lvl (s): 1.19 09/18 14:59 Glucose Level: 119 H Sodium Level: 138 Potassium Level: 4.3 BUN: 31 H Creatinine Lvl (s): 1.31 H 09/18 05:20 WBC: 9.4 Hgb: 11.0 L Hct: 32.2 L Platelet: 192 Neutrophil %: 72.0 Glucose Level: 129 H Sodium Level: 136 Potassium Level: 4.9 BUN: 28 H Creatinine Lvl (s): 1.31 H EKG Electrocardiogram [AOH] (EKG [AOH]) - InProcess -- 09/19/23 7:35:00 EDT Assessment/Plan Bradycardia CAD (coronary artery disease) HTN (hypertension) Osteoarthritis S/P total left hip arthroplasty 1. Status post direct anterior left total hip arthroplasty postop day #2 2. Continue pain medications: Tylenol and oxycodone. We are avoiding nonsteroidal anti-inflammatories due to his past history of stroke. Also limit narcotic as much as possible. 3. DVT prophylaxis: Take 81 mg aspirin twice daily with food for 4 weeks postoperatively for DVT prophylaxis. Patient denies past history of DVT or pulmonary embolism. 4. Physical therapy: Weightbearing as tolerated with walker. Appreciate recommendations for discharge planning. Patient currently has outpatient physical therapy established on September 21, 2023. 5. H & H: 9.9/29.0, asymptomatic. Labs have been reviewed. Patient did have a further drop in his hemoglobin but currently is asymptomatic. Patient did have estimated blood loss of 700 mL with surgery. He has been getting fluids postoperatively. We will begin ferrous sulfate and folic acid. I would recommend patient is following with his primary care physician in 2-3 weeks for repeat lab work. Lab order will be placed on chart. I did discuss with the patient the potential for constipation on the ferrous sulfate and should use stool softener as needed. 6. Continue incisional wound VAC for 1 week postoperatively. There was no drainage or output in the canister or tubing. Will discontinue the incisional wound VAC on September 25, 2023. 7. Encouraged incentive spirometry 8. Continue postoperative medical management per medicine: Patient does appear to be more stabilized today. I would appreciate recommendations from medicine for appropriate discharge planning. 9. Postoperative constipation: Discussed with the patient to continue stool softener until first bowel movement. After first bowel movement patient can then take as needed. They were also instructed that if they are not able to have a bowel movement within 3 days they are to contact our office for change of medication. Patient voiced understanding. 10. Disposition: Discharge today will be determined if patient is medically cleared and once physical therapy has given their recommendations as well. Patient does have his daughter who will be staying in with him until early next week. Patient is wishing to try to go home. I did explain to him that he is medically appropriate and therapy deems him appropriate for discharge home. He does have outpatient physical therapy established. Case management has also discussed transportation with [facility]. Prescriptions have already been sent to the primary pharmacy yesterday. I will add in the ferrous sulfate and folic acid. Patient will continue with these medications until follow-up with the primary care physician. Lab order will be placed on chart. I did explain to the patient that he needs to have his labs drawn prior to his follow-up with the primary care physician. If patient does get discharged home today he is to contact our office with any concerns or questions. Orthopedically patient is doing well however we are waiting on appropriate clearance from medicine and therapy. I did discuss case with case management and therapy had some concerns for discharge home. There was discussion about possible swing. Therapy will reassess today for their recommendations. I have reviewed the [place] Automated Rx Reporting System (OARRS) report for this patient for refill pattern and other prescriber involvement as part of the appropriate surveillance for the provision ofacute and chronic controlled medications. The report was requested and reviewed on the date of thisentry, and was considered in the prescribing process This dictation was created using voice recognition software. Phonetic and/or grammatical errors mayexist. Ordered: oxyCODONE, See Instructions, PRN as needed for pain, 1-2 tab(s) Oral q4h, # 42 tab(s), 0 Refill(s),09/26/23 8:02:00 EDT, Pharmacy: [facility]/pharmacy #[id number], S/P total left hip arthroplasty, 170, cm, 09/18/23 17:05:00 EDT, Height, 95.3, kg, 09/18/23 17:05:00 EDT, Dosi... Orders: acetaminophen, Dose : 1,000 mg = 2 tab(s), Oral, TID, PRN as needed for pain, not to exceed 3000 mg/day, X 14 day(s), # 100 tab(s), 0 Refill(s), 10/03/23 7:59:00 EDT, Pharmacy: [facility]/pharmacy #[id number], 170, cm, 09/18/23 17:05:00 EDT, Height, kg, 09/18/23 17:05:00 EDT, Do... aspirin, Dose : 81 mg = 1 tab(s), Oral, BIDM, Take 81 mg aspirin twice daily with food for 4 weeks postoperatively for DVT prophylaxis., 0 Refill(s) docusate-senna, Dose = 2 tab(s), Oral, BID, Take until first bowel movement, then as needed, X 3 day(s), # 12 tab(s), 0 Refill(s), Pharmacy: [facility]/pharmacy #[id number], 170, cm, 09/18/23 17:05:00 EDT, Height, kg, 09/18/23 17:05:00 EDT, Dosing Weight famotidine, Dose : 20 mg = 1 tab(s), Oral, qDay, # 30 tab(s), 0 Refill(s), Pharmacy: [facility]/pharmacy #[id number], 170, cm, 09/18/23 17:05:00 EDT, Height, kg, 09/18/23 17:05:00 EDT, Dosing Weight Digitally Signed by EBEN KIM PA-C on 09/20/2023 07:03 AM Digitally Signed by EBEN KIM PA-C on 09/20/2023 07:09 AM [facility]04-03-2024 Hospital Discharge instructions Patient Education 09/19/2023 07:58:39 5 - [facility] Post-op Instruction 01/2017 ([id number]) [facility] Post-operative Instructions PLEASE FOLLOW [facility] POST-OP INSTRUCTIONS GIVEN WATCH FOR SIGNS OF INFECTION: call the office ([phone]) if experencing any of the following: (Usually appears 36-48 hours after surgery) Increased temperature (101 degrees Fahrenheit or higher) Redness or swelling Increased uncontrolled pain Foul odor or drainage Calf discomfort Significant swelling Or if having any chest pain, shortness of breath, or difficulty breathing or swallowing call the office or go the nearest Emergency Room. If you have any questions, please call your doctor at the number listed on your follow up instructions. Form: 338A ([id number]) R: 10/22 Follow Up Care 07/10/2023 10:09:16 With:IWONA STEWART MD Address: [address] [facility] [place] [address]- When: Unknown With:EBEN KIM PA-C, Orthopedic Address: [facility] [place] [address]- When:10/01/2023 15:30:00 Comments:This is your post-op appointment. Follow-up as scheduled. [facility] 04-03-2024 NoteSinus rhythm Supraventricular bigeminy Borderline repolarization abnormality Electronic Signature: URBANO DEAL MD 09/21/2023 17:03:30[facility] 04-03-2024 Note Date of Service September 19, 2023 Subjective The patient was sitting in bed upon examination. Patient denies any chest pain, shortness of breath, dizziness, lightheadedness, nausea or vomiting, or calf pain. Pain has been controlled on medications. Patient does not appear to be in any distress this morning. He has no chest pain. Does not feellightheaded. Discussion with nursing states overnight patient had bradycardia and episodes of ventricular bigeminy. Overnight medicine provider gave him IV magnesium. Patient does have established care with cardiology at [facility]. He has had preoperative workup including stress test which was normal with ejection fraction 53%. He also has past history of stroke. He is currently on no di uretic. Overnight BNP was elevated. He was on Plavix before but that was discontinued and he is only on aspirin 81 mg. Patient does have history of benign prostatic hyperplasia and per patient he hasbeen urinating on his own today. Objective Vitals and Measurements T: 36.9 C (Oral) TMIN: 35.6 C (Temporal Artery) TMAX: 36.9 C (Oral) HR: 62(Apical) RR: 16 BP: 106/72 SpO2: 92% HT: 170 cm WT: 95.3 kg BMI: 32.98 Intake and Output 7AM Yesterday to 7AM Today Intake and Output (Last 24 hours) Intake Administration Information 1264.18 Output Urine Voided 560.00 Intra-Op EBL 700.00 Total Summary Total Intake 1264.18 Total Output 1260.00 Fluid Balance 4.18 Physical Exam Vital signs stable, afebrile. Overnight was having some bradycardia and lower blood pressure. 1 reading this morning with 92% O2 saturation. SCD's and KIRIT Hose in place bilaterally Left hip is soft and supple Patient is able to plantarflex and dorsiflex actively Sensation is intact to saphenous, sural, superficial and deep peroneal, and tibial distribution Dressing is clean dry and intact Negative signs and symptoms of DVT, negative Homans bilaterally Weight Dosing Weight: 95.3 kg (09/18/23) Dosing Weight: 95.3 kg (09/18/23) Medications Medications (25) Active Scheduled: (13) acetaminophen 500 mg Tablet 1,000 mg 2 tab(s), Oral, q6hr amLODIPine 5 mg tablet 2.5 mg 0.5 tab(s), Oral, qDay ascorbic acid 500 mg tablet 500 mg 1 tab(s), Oral, qDay aspirin 81 mg EC 81 mg 1 tab(s), Oral, BIDM atorvastatin 40 mg tablet 40 mg 1 tab(s), Oral, Daily bisacodyl 5 mg EC tablet 10 mg 2 tab(s), Oral, Once docusate sodium 100 mg Capsule 100 mg 1 cap(s), Oral, BID docusate-senna (Senokot S) 50 mg-8.6 mg Tablet 2 tab(s), Oral, BID famotidine 20 mg tablet 20 mg 1 tab(s), Oral, qDay magnesium hydroxide 8% Suspension 30 mL UD 30 mL, Oral, Daily metoprolol succinate 50 mg ER tablet 25 mg 0.5 tab(s), Oral, BID multivitamin (Myadec) with minerals Therapeutic Multiple Vitamins with Minerals Tablet 1 tab(s), Oral, qDayM ondansetron 2 mg/ 1 mL 2 mL INJ 4 mg 2 mL, IV Push, q8hr Continuous: (0) PRN: (12) acetaminophen 325 mg Tablet 650 mg 2 tab(s), Oral, q4h albumin human 5% 12.5 gram(s) 250 mL, IV Piggyback, AsDirected albumin human 5% 12.5 gram(s) 250 mL, IV Piggyback, AsDirected diphenhydramine 25 mg tablet 25 mg 1 tab(s), Oral, q6h diphenhyDRAMINE 50 mg/mL (1 mL) INJ 25 mg 0.5 mL, IV Push, q6h melatonin 3 mg tablet 9 mg 3 tab(s), Oral, qHS morphine 2 mg/mL 1 mL syringe 2 mg 1 mL, IV Push, q1h ondansetron 2 mg/ 1 mL 2 mL INJ 4 mg 2 mL, IV Push, q8h oxycodone 5 mg tablet (immediate release) 5 mg 1 tab(s), Oral, q4h oxycodone 5 mg tablet (immediate release) 10 mg 2 tab(s), Oral, q4h prochlorperazine 10 mg/2 mL vial 5 mg 1 mL, IV Push, q6h sodium biphosphate-sodium phosphate 19 gm-7 gm Enema 133 mL, Rectal, qDay Lab Results 09/18 05:20 WBC: 9.4 Hgb: 11.0 L Hct: 32.2 L Platelet: 192 Neutrophil %: 72.0 Glucose Level: 129 H Sodium Level: 136 Potassium Level: 4.9 BUN: 28 H Creatinine Lvl (s): 1.31 H 09/17 18:53 Glucose Level: 175 H Sodium Level: 137 Potassium Level: 4.1 BUN: 22 H Creatinine Lvl (s): 1.15 EKG Electrocardiogram [AOH] (EKG [AOH]) - InProcess -- 09/18/23 15:35:00 EDT Electrocardiogram [AOH] (EKG [AOH]) - InProcess -- 09/18/23 17:14:00 EDT Electrocardiogram [AOH] (EKG [AOH]) - Ordered -- 09/19/23 7:35:00 EDT Assessment/Plan 1. Status post direct anterior left total hip arthroplasty postop day #1 2. Continue pain medications: Tylenol and oxycodone. We are avoiding nonsteroidal anti-inflammatories due to his past history of stroke. Also limit narcotic as much as possible. 3. DVT prophylaxis: Take 81 mg aspirin twice daily with food for 4 weeks postoperatively for DVT prophylaxis. Patient denies past history of DVT or pulmonary embolism. 4. Physical therapy: Weightbearing as tolerated with walker. Appreciate recommendations for discharge planning. Patient currently has outpatient physical therapy established on September 21, 2023. 5. H & H: 11.0/32.2, asymptomatic. Labs have been reviewed and are stable. Overnight did have troponin which was within normal limits as well as BNP which was elevated. Patient had some mildly increased kidney function. 6. Continue incisional wound VAC for 1 week postoperatively. There was no drainage or output in thecanister or tubing. Will discontinue the incisional wound VAC on September 25, 2023. 7. Encouraged incentive spirometry 8. Continue postoperative medical management per medicine: Case was discussed with medicine and we do appreciate recommendations with regards to his cardiac history and overnight testing. 9. Postoperative constipation: Discussed with the patient to continue stool softener until first bowel movement. After first bowel movement patient can then take as needed. They were also instructed that if they are not able to have a bowel movement within 3 days they are to contact our office for change of medication. Patient voiced understanding. 10. Disposition: Discharge planning will be ultimately determined once physical therapy has evaluated patient and recommendations from medicine. Patient does have established cardiac care with [facility]. I will have medications ready for discharge. He would like the medications E scribed to [facility] in [facility]. He currently does have outpatient physical therapy established however I would like him to be assessed by physical therapy today for appropriate discharge planning. He does have a daughter that will be helping him out over the next 1 week. Plan will be for the incisional wound VAC to be discontinued on September 25, 2023. He is to not get this wet upon discharge. I will be in di scussion with nursing and medicine with regards to possible discharge home versus additional night stay. I have reviewed the [place] Automated Rx Reporting System (OARRS) report for this patient for refill pattern and other prescriber involvement as part of the appropriate surveillance for the provision ofacute and chronic controlled medications. The report was requested and reviewed on the date of thisentry, and was considered in the prescribing process This dictation was created using voice recognition software. Phonetic and/or grammatical errors mayexist. Digitally Signed by EBEN KIM PA-C on 09/19/2023 07:58 AM [facility]04-02-2024 NoteSinus bradycardia WITH COMPETING JUNCTIONAL RHYTHM Short ME interval CONSIDER Inferior infarct, old Lateral leads are also involved Electronic Signature: URBANO DEAL MD 09/21/2023 17:05:37[facility] 04-02-2024 NoteSinus rhythm Multiple ventricular premature complexes Borderline repolarization abnormality Borderline prolonged QT interval Electronic Signature: URBANO DEAL MD 09/21/2023 17:03:52[facility] 04-02-2024 Note ORIGINAL Images acquired, not reported on this accession number.[facility]04-02-2024 Note ORIGINAL EXAMINATION: 2 XRAY VIEWS OF THE LEFT HIP. 1 VIEW OF THE PELVIS. COMPARISON: Prior left hip radiographs dated 08/25/2022. HISTORY: ORDERING SYSTEM PROVIDED HISTORY: Reason for Exam: Status Post Arthroplasty FINDINGS: Postsurgical changes are seen status post left total hip arthroplasty. No acute fracture, dislocation, or hardware failure is seen. Subcutaneous emphysema is seen and expected in the postsurgical state. No unexpected radiopaque foreign bodies. 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 Visualized aspects of the pelvis are intact without acute fracture. The SI joints are symmetric bilaterally. Degenerative changes of the lumbar spine are seen. IMPRESSION: Expected postsurgical changes status post left total hip arthroplasty. 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 Assessment Postanesthesia assessment Vitals: Vital signs from flowsheet : Vital Signs 09/18/2023 13:05 EDT Respiratory Rate - Anes 19 br/min br/min 09/18/2023 13:00 EDT Heart Rate Monitored 86 bpm bpm Respiratory Rate - Anes 18 br/min br/min Systolic Blood Pressure Non-Invasive 90 mmHg mmHg Diastolic Blood Pressure Non-Invasive 41 mmHg mmHg 09/18/2023 12:55 EDT Heart Rate Monitored 83 bpm bpm Respiratory Rate - Anes 19 br/min br/min Systolic Blood Pressure Non-Invasive 108 mmHg mmHg Diastolic Blood Pressure Non-Invasive 44 mmHg mmHg 09/18/2023 12:50 EDT Heart Rate Monitored 86 bpm bpm Respiratory Rate - Anes 20 br/min br/min Systolic Blood Pressure Non-Invasive 85 mmHg mmHg Diastolic Blood Pressure Non-Invasive 45 mmHg mmHg 09/18/2023 12:45 EDT Temperature (Route Not Specified) 36 DegC DegC Heart Rate Monitored 88 bpm bpm Respiratory Rate - Anes 18 br/min br/min Systolic Blood Pressure Non-Invasive 64 mmHg mmHg Diastolic Blood Pressure Non-Invasive 39 mmHg mmHg 09/18/2023 12:40 EDT Heart Rate Monitored 83 bpm bpm Respiratory Rate - Anes 19 br/min br/min Systolic Blood Pressure Non-Invasive 91 mmHg mmHg Diastolic Blood Pressure Non-Invasive 46 mmHg mmHg 09/18/2023 12:35 EDT Heart Rate Monitored 72 bpm bpm Respiratory Rate - Anes 17 br/min br/min Systolic Blood Pressure Non-Invasive 111 mmHg mmHg Diastolic Blood Pressure Non-Invasive 39 mmHg mmHg 09/18/2023 12:30 EDT Temperature (Route Not Specified) 36 DegC DegC Heart Rate Monitored 68 bpm bpm Respiratory Rate - Anes 17 br/min br/min Systolic Blood Pressure Non-Invasive 97 mmHg mmHg Diastolic Blood Pressure Non-Invasive 44 mmHg mmHg 09/18/2023 12:25 EDT Heart Rate Monitored 72 bpm bpm Respiratory Rate - Anes 17 br/min br/min Systolic Blood Pressure Non-Invasive 113 mmHg mmHg Diastolic Blood Pressure Non-Invasive 50 mmHg mmHg 09/18/2023 12:20 EDT Heart Rate Monitored 65 bpm bpm Respiratory Rate - Anes 17 br/min br/min Systolic Blood Pressure Non-Invasive 108 mmHg mmHg Diastolic Blood Pressure Non-Invasive 50 mmHg mmHg 09/18/2023 12:15 EDT Temperature (Route Not Specified) 36 DegC DegC Heart Rate Monitored 65 bpm bpm Respiratory Rate - Anes 18 br/min br/min Systolic Blood Pressure Non-Invasive 115 mmHg mmHg Diastolic Blood Pressure Non-Invasive 46 mmHg mmHg 09/18/2023 12:10 EDT Heart Rate Monitored 69 bpm bpm Respiratory Rate - Anes 24 br/min br/min Systolic Blood Pressure Non-Invasive 102 mmHg mmHg Diastolic Blood Pressure Non-Invasive 51 mmHg mmHg 09/18/2023 12:05 EDT Heart Rate Monitored 66 bpm bpm Respiratory Rate - Anes 17 br/min br/min Systolic Blood Pressure Non-Invasive 100 mmHg mmHg Diastolic Blood Pressure Non-Invasive 49 mmHg mmHg 09/18/2023 12:00 EDT Temperature (Route Not Specified) 36 DegC DegC Heart Rate Monitored 64 bpm bpm Respiratory Rate - Anes 17 br/min br/min Systolic Blood Pressure Non-Invasive 103 mmHg mmHg Diastolic Blood Pressure Non-Invasive 54 mmHg mmHg 09/18/2023 11:55 EDT Heart Rate Monitored 63 bpm bpm Respiratory Rate - Anes 15 br/min br/min Systolic Blood Pressure Non-Invasive 101 mmHg mmHg Diastolic Blood Pressure Non-Invasive 51 mmHg mmHg 09/18/2023 11:50 EDT Heart Rate Monitored 61 bpm bpm Respiratory Rate - Anes 16 br/min br/min Systolic Blood Pressure Non-Invasive 102 mmHg mmHg Diastolic Blood Pressure Non-Invasive 55 mmHg mmHg 09/18/2023 11:45 EDT Temperature (Route Not Specified) 36 DegC DegC Heart Rate Monitored 64 bpm bpm Respiratory Rate - Anes 15 br/min br/min Systolic Blood Pressure Non-Invasive 105 mmHg mmHg Diastolic Blood Pressure Non-Invasive 46 mmHg mmHg 09/18/2023 11:40 EDT Heart Rate Monitored 63 bpm bpm Respiratory Rate - Anes 17 br/min br/min Systolic Blood Pressure Non-Invasive 113 mmHg mmHg Diastolic Blood Pressure Non-Invasive 50 mmHg mmHg 09/18/2023 11:35 EDT Heart Rate Monitored 67 bpm bpm Respiratory Rate - Anes 17 br/min br/min Systolic Blood Pressure Non-Invasive 117 mmHg mmHg Diastolic Blood Pressure Non-Invasive 60 mmHg mmHg 09/18/2023 11:30 EDT Temperature (Route Not Specified) 36 DegC DegC Heart Rate Monitored 68 bpm bpm Respiratory Rate - Anes 15 br/min br/min Systolic Blood Pressure Non-Invasive 98 mmHg mmHg Diastolic Blood Pressure Non-Invasive 39 mmHg mmHg 09/18/2023 11:25 EDT Heart Rate Monitored 81 bpm bpm Respiratory Rate - Anes 17 br/min br/min Systolic Blood Pressure Non-Invasive 92 mmHg mmHg Diastolic Blood Pressure Non-Invasive 43 mmHg mmHg 09/18/2023 11:20 EDT Heart Rate Monitored 68 bpm bpm Respiratory Rate - Anes 17 br/min br/min Systolic Blood Pressure Non-Invasive 94 mmHg mmHg Diastolic Blood Pressure Non-Invasive 40 mmHg mmHg 09/18/2023 11:15 EDT Temperature (Route Not Specified) 36 DegC DegC Heart Rate Monitored 76 bpm bpm Respiratory Rate - Anes 18 br/min br/min Systolic Blood Pressure Non-Invasive 103 mmHg mmHg Diastolic Blood Pressure Non-Invasive 42 mmHg mmHg 09/18/2023 11:13 EDT Systolic Blood Pressure Non-Invasive 106 mmHg mmHg Diastolic Blood Pressure Non-Invasive 44 mmHg mmHg 09/18/2023 11:10 EDT Heart Rate Monitored 64 bpm bpm Respiratory Rate - Anes 5 br/min br/min Systolic Blood Pressure Non-Invasive 80 mmHg mmHg Diastolic Blood Pressure Non-Invasive 40 mmHg mmHg 09/18/2023 11:07 EDT Systolic Blood Pressure Non-Invasive 77 mmHg mmHg Diastolic Blood Pressure Non-Invasive 44 mmHg mmHg 09/18/2023 11:05 EDT Heart Rate Monitored 71 bpm bpm Respiratory Rate - Anes 14 br/min br/min Systolic Blood Pressure Non-Invasive 62 mmHg mmHg Diastolic Blood Pressure Non-Invasive 40 mmHg mmHg 09/18/2023 11:00 EDT Temperature (Route Not Specified) 36 DegC DegC Heart Rate Monitored 69 bpm bpm Respiratory Rate - Anes 15 br/min br/min Systolic Blood Pressure Non-Invasive 82 mmHg mmHg (Modified) Diastolic Blood Pressure Non-Invasive 68 mmHg mmHg 09/18/2023 10:55 EDT Heart Rate Monitored 74 bpm bpm Respiratory Rate - Anes 0 br/min br/min Systolic Blood Pressure Non-Invasive 101 mmHg mmHg Diastolic Blood Pressure Non-Invasive 59 mmHg mmHg 09/18/2023 10:50 EDT Respiratory Rate - Anes 15 br/min br/min Systolic Blood Pressure Non-Invasive 120 mmHg mmHg Diastolic Blood Pressure Non-Invasive 70 mmHg mmHg 09/18/2023 10:45 EDT Respiratory Rate - Anes 0 br/min br/min 09/18/2023 9:13 EDT Temperature Temporal Artery 36.6 DegC Peripheral Pulse Rate 74 bpm Respiratory Rate 17 br/min Systolic Blood Pressure Non-Invasive 126 mmHg Diastolic Blood Pressure Non-Invasive 71 mmHg , Measurements from flowsheet . Mental status: alert & oriented x 4. Respiratory function: respirations are non-labored. Respiratory support: none. CV function: Normal rate. Cardiovascular support: none. Pain. Nausea status: see nursing documentation of medications. Postoperative hydration status: within normal limits. Digitally Signed by JOSY WHALEN on 09/18/2023 01:12 PM [facility]04-02-2024 Anesthesiology Consult note Patient: EBEN CRUZ Age: 78 years Sex: Male : 1945 Associated Diagnoses: None Author: JOSY WHALEN Preoperative Information Time of last food or liquid consumption: 09/18/2023 00:00:00 Anesthesia history Patient's history: negative. Family's history: negative. Health Status Allergies: Allergic Reactions (Selected) Severity Not Documented Entresto- Unknown. Wool- Unknown., Allergies (2) ActiveReaction EntrestoUnknown WoolUnknown Current medications: (Selected) Inpatient Medications Ordered Betadine 10% topical solution: 17.5 mL, mL/hr, Topical (INT), PREOP pharm Cyklokapron IVPB: 2,000 mg, 20 mL, 0 mL/hr, Topical (INT), PREOP pharm Decadron: 10 mg, 1 mL, IV Push, AsDirected LR 1,000 mL: 20 mL/hr, Intravenous, Stop: 09/18/23 23:59:00 EDT Naropin 100 mg + EPINEPHrine 1 mg/mL injectable solution 0.3 mg + morphine 2.5 m mg, 20 mL, 0mL/hr, Other, PREOP pharm Naropin 100 mg + EPINEPHrine 1 mg/mL injectable solution 0.3 mg + morphine 2.5 m mg, 20 mL, 0mL/hr, Other, PREOP pharm Prescriptions Prescribed diclofenac 1% topical gel: 4 gram(s), Topical, TID, apply to left hip three times daily as needed.,100 gram(s), 1 Refill(s) Documented Medications Documented Melatonin 10 mg oral capsule: 10 mg, 1 cap(s), Oral, qHS, PRN: for insomnia, 0 Refill(s) Metoprolol Succinate ER 25 mg oral TABLET extended release: 25 mg, 1 tab(s), Oral, qDay, 30 tab(s),0 Refill(s) Vitamin C: qDay, 0 Refill(s) Vitamin D (3) 45 units oral capsule: 0 Refill(s) amLODIPine 5 mg oral tablet: 2.5 mg, 0.5 tab(s), Oral, qDay, increase to 5 mg if systolic pressure stays more than 140, 0 Refill(s) aspirin 81 mg oral delayed release tablet: 81 mg, 1 tab(s), Oral, qDay, 0 Refill(s) atorvastatin 40 mg oral tablet: 40 mg, 1 tab(s), Oral, Daily, 0 Refill(s) naproxen sodium 220 mg oral capsule: 220 mg, 1 cap(s), Oral, q8h, PRN: as needed for pain, 40 cap(s), 0 Refill(s) saw ulysseso oral capsule: 0 Refill(s) zinc (as gluconate) 50 mg oral tablet: 50 mg, 1 tab(s), Oral, Daily, 30 tab(s), 0 Refill(s), Medications (6) Active Scheduled: (5) dexamethasone 10 mg/mL (1mL) SDV 10 mg 1 mL, IV Push, AsDirected povidone iodine topical 17.5 mL, Topical (INT), PREOP pharm ropivacaine 100 mg + epinephrine 0.3 mg + morphine 2.5 mg 100 mg 20 mL, Other, PREOP pharm ropivacaine 100 mg + epinephrine 0.3 mg + morphine 2.5 mg 100 mg 20 mL, Other, PREOP pharm tranexamic acid 2,000 mg 20 mL, Topical (INT), PREOP pharm Continuous: (1) Lactated Ringers 1,000 mL 1,000 mL, Intravenous, 20 mL/hr PRN: (0) Problem list: Medical Acholic stool / SNOMED CT 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 BPH - benign prostatic hyperplasia / SNOMED CT 4005152470 / Confirmed CAD - Coronary artery disease / SNOMED CT 4796099950 / Confirmed Diastolic dysfunction / SNOMED CT 8955607 / Confirmed Erectile dysfunction / SNOMED CT 8516926299 / Confirmed Left hip pain / SNOMED CT 74107860 / Confirmed High cholesterol / SNOMED CT 23594555 / Confirmed Lumbosacral radiculitis / SNOMED CT 75404008 / Confirmed Male hypogonadism / SNOMED CT 75871490 / Confirmed Osteoarthritis of left hip / SNOMED CT 6737158145 / Confirmed Left knee pain / SNOMED CT 3635490628 / Confirmed Pre-op exam / SNOMED CT 111312087 / Confirmed, Active Problems (12) Acholic stool BPH - benign prostatic hyperplasia CAD - Coronary artery disease Diastolic dysfunction Erectile dysfunction High cholesterol Left hip pain Left knee pain Lumbosacral radiculitis Male hypogonadism Osteoarthritis of left hip Pre-op exam Histories Past Medical History: Resolved Thrombocytopenia (350282989): Resolved. UTI (urinary tract infection) (725000007): Resolved. Family History: Cancer Sister Cerebrovascular accident Father (Fredi Cruz, ) CAD - Coronary artery disease Sister Diabetes Mother (Tiki Sarmiento, ) Procedure history: Inguinal hernia (1385184986) in 1989 at 45 Years. Hip replacement (7190867969). Catheterisation of both left and right heart (049238681). 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 He has 2 grown children. Lives In 1st floor bathroom, 1st floor bedroom, Multilevel home Marital Status of Patient if Patient Independent Adult: Unmarried Nutrition/Health 08/21/2023 Type of diet: Regular Caffeine intake amount: none Appetite Excellent Eating Difficulties None . Physical Examination Vital Signs 09/18/2023 11:10 EDT Heart Rate Monitored 64 bpm bpm Respiratory Rate - Anes 5 br/min br/min Systolic Blood Pressure Non-Invasive 80 mmHg mmHg Diastolic Blood Pressure Non-Invasive 40 mmHg mmHg 09/18/2023 11:07 EDT Systolic Blood Pressure Non-Invasive 77 mmHg mmHg Diastolic Blood Pressure Non-Invasive 44 mmHg mmHg 09/18/2023 11:05 EDT Heart Rate Monitored 71 bpm bpm Respiratory Rate - Anes 14 br/min br/min Systolic Blood Pressure Non-Invasive 62 mmHg mmHg Diastolic Blood Pressure Non-Invasive 40 mmHg mmHg 09/18/2023 11:00 EDT Heart Rate Monitored 69 bpm bpm Respiratory Rate - Anes 15 br/min br/min Systolic Blood Pressure Non-Invasive 82 mmHg mmHg Diastolic Blood Pressure Non-Invasive 68 mmHg mmHg 09/18/2023 10:55 EDT Heart Rate Monitored 74 bpm bpm Respiratory Rate - Anes 0 br/min br/min Systolic Blood Pressure Non-Invasive 101 mmHg mmHg Diastolic Blood Pressure Non-Invasive 59 mmHg mmHg 09/18/2023 10:50 EDT Respiratory Rate - Anes 15 br/min br/min Systolic Blood Pressure Non-Invasive 120 mmHg mmHg Diastolic Blood Pressure Non-Invasive 70 mmHg mmHg 09/18/2023 10:45 EDT Respiratory Rate - Anes 0 br/min br/min 09/18/2023 9:13 EDT Temperature Temporal Artery 36.6 DegC Peripheral Pulse Rate 74 bpm Respiratory Rate 17 br/min Systolic Blood Pressure Non-Invasive 126 mmHg Diastolic Blood Pressure Non-Invasive 71 mmHg Vital Signs(last 24 hrs) Last Charted Heart Rate [id number] bpm (SEP 17 11:10) SBP80 mmHg (SEP 17 11:10) DBP40 mmHg (SEP 17 11:10) Measurements from flowsheet : Measurements 09/18/2023 9:13 EDT Height 170 cm Admission Weight 95.3 kg [place] Body Weight 65.94 kg Admission Body Mass Index 32.98 m2 Pain assessment: Pain Assessment 09/18/2023 9:13 EDT Primary Pain Location Hip Primary Pain Laterality Left Primary Pain Intensity 6 Primary Pain Quality Unable to describe Pain Scale Type 0-10 Pain scale . General: Alert and oriented. Airway: Normal temporomandibular joint mobility, Normal mouth. Mallampati classification: III (soft palate, base of uvula visible). Dentition Evaluation: Missing teeth, Denies loose/chipped teeth. Respiratory: Respirations are non-labored. Cardiovascular: Normal rate. Musculoskeletal stiff and limited rom everywhere. Neurologic: Alert, Oriented. Review / Management Results review: No qualifying data available , Lab results 09/18/2023 11:19 EDT SN - SP - Prep Agents Chloraprep SN - SP - HR - Method Clipped 09/18/2023 11:17 EDT SN - CAt - Case Attendee SN - CAt - Case Attendee SN - CAt - Role Performed It Programmer Analyst 09/18/2023 11:15 EDT SN - CTm - Surgery Start 09/18/2023 11:14 09/18/2023 11:11 EDT SN - CAt - Case Attendee SN - CAt - Case Attendee SN - CAt - Case Attendee SN - CAt - Case Attendee SN - CAt - Role Performed Observer SN - CAt - Role Performed It Programmer Analyst 09/18/2023 11:10 EDT Heart Rate Monitored 64 bpm bpm Respiratory Rate - Anes 5 br/min br/min Systolic Blood Pressure Non-Invasive 80 mmHg mmHg Diastolic Blood Pressure Non-Invasive 40 mmHg mmHg Oxygen Saturation 99 % % 09/18/2023 11:07 EDT Systolic Blood Pressure Non-Invasive 77 mmHg mmHg Diastolic Blood Pressure Non-Invasive 44 mmHg mmHg 09/18/2023 11:05 EDT Heart Rate Monitored 71 bpm bpm Respiratory Rate - Anes 14 br/min br/min Systolic Blood Pressure Non-Invasive 62 mmHg mmHg Diastolic Blood Pressure Non-Invasive 40 mmHg mmHg Oxygen Saturation 97 % % 09/18/2023 11:00 EDT Heart Rate Monitored 69 bpm bpm Respiratory Rate - Anes 15 br/min br/min Systolic Blood Pressure Non-Invasive 82 mmHg mmHg Diastolic Blood Pressure Non-Invasive 68 mmHg mmHg Oxygen Saturation 98 % % 09/18/2023 10:55 EDT Heart Rate Monitored 74 bpm bpm Respiratory Rate - Anes 0 br/min br/min Systolic Blood Pressure Non-Invasive 101 mmHg mmHg Diastolic Blood Pressure Non-Invasive 59 mmHg mmHg Oxygen Saturation 97 % % cefazolin 2 gram(s) gram(s) Sodium Chloride 0.9% 100 mL mL 09/18/2023 10:50 EDT Respiratory Rate - Anes 15 br/min br/min Systolic Blood Pressure Non-Invasive 120 mmHg mmHg Diastolic Blood Pressure Non-Invasive 70 mmHg mmHg Oxygen Saturation 93 % % 09/18/2023 10:45 EDT Respiratory Rate - Anes 0 br/min br/min 09/18/2023 10:44 EDT SN - PP - Body Position Supine Standard Intra-op 09/18/2023 10:43 EDT SN - OK - Route of Administration Local SN - OK - Route of Administration Local 09/18/2023 10:43 EDT SN - PTCare - Thermals Forced Air Warming Device Upper Body 09/18/2023 10:23 EDT SN - XI - X-Ray Type C-Arm 09/18/2023 10:22 EDT SN - Assess - LOC Alert, Awake SN - Assess - Orientation Oriented X 3 SN - Assess - Post-op Skin Integrity Intact/Dry 09/18/2023 10:22 EDT SN - GCD - Post-operative Diagnosis UNILATERAL PRIMARY OSTEOARTHRITIS LEFT HIP SN - GCD - Case Level Level 5 09/18/2023 10:22 EDT SN - CAt - Case Attendee SN - CAt - Case Attendee SN - CAt - Case Attendee SN - CAt - Case Attendee SN - CAt - Case Attendee SN - CAt - Case Attendee SN - CAt - Case Attendee SN - CAt - Case Attendee SN - CAt - Case Attendee SN - CAt - Case Attendee SN - CAt - Case Attendee SN - CAt - Case Attendee SN - CAt - Role Performed Primary Surgeon SN - CAt - Role Performed Customer Sales Service Manager 1 SN - CAt - Role Performed PACKAGING LINE ATTENDANT SN - CAt - Role Performed Manager Manufacturing 1 SN - CAt - Role Performed Scrub 1 SN - CAt - Role Performed [employer] Supervisor 09/18/2023 10:14 EDT IHC At-Risk Indicator YES 09/18/2023 9:33 EDT citric acid-sodium citrate Not Done: Other (Not Done) 09/18/2023 9:27 EDT SN - Preop - CTm Pt in SDS Room 09/18/2023 8:41 SN - Preop - CTm Pt Ready for OR/Proced 09/18/2023 9:26 09/18/2023 9:13 EDT Height 170 cm Admission Weight 95.3 kg [place] Body Weight 65.94 kg Admission Body Mass Index 32.98 m2 Temperature Temporal Artery 36.6 DegC Peripheral Pulse Rate 74 bpm Respiratory Rate 17 br/min Systolic Blood Pressure Non-Invasive 126 mmHg Diastolic Blood Pressure Non-Invasive 71 mmHg Primary Pain Location Hip Primary Pain Laterality Left Primary Pain Intensity 6 Primary Pain Quality Unable to describe Pain Scale Type 0-10 Pain scale Heart Rhythm Regular Dorsalis Pedis Pulse, Left 2+ Normal Dorsalis Pedis Pulse, Right 2+ Normal Pedal edema Bilateral Edema Ratin+ trace/2mm Respirations Unlabored All Lobes Breath Sounds Clear Oxygen Therapy Room air Oxygen Saturation 98 % Abdomen Description Non-distended, Soft Skin Temperature Warm Skin Description [place] Skin Integrity Intact Mucous Membrane Color [place] Neurological Symptoms Patient denies Characteristics of Speech Clear Level of Consciousness Alert Strength All Extremities Strong Affect/Behavior Appropriate, Calm, Cooperative Orientation Oriented x 4 Standard Safety ID band on, Allergy Band on, Call device within reach, Bed in low position, Wheels locked, Non-Slip footwear 09/18/2023 9:10 EDT famotidine 20 mg mg Lactated Ringers Injection 1,000 mL mL 09/18/2023 9:08 EDT Upper arm Right 20 gauge Peripheral IV Activity: Insert new site Peripheral IV Dressing Condition: Clean, Dry, Intact Peripheral IV Dressing Activity: Transparent dressing Peripheral IV Line Status/Patency: Continuous infusion Peripheral IV Site Condition: No complications Peripheral IV Equipment: Extension set Peripheral IV Number of Attempts: 1 09/18/2023 9:07 EDT ABO/Rh Interp O POS ABSC Interp (Gel) Negative ABSC 09/18/2023 8:51 EDT Designated Person #1 We May Share PHI MARK [phone] Designated Person #1 Relationship Son Designated Person #2 We May Share PHI MARK Designated Person #2 Relationship Daughter Privacy Restrictions Requested None Status N/A Sensory Deficits None Sleep Apnea Snore No Sleep Apnea Tired No Sleep Apnea Obstruction No Sleep Apnea Pressure Yes Sleep Apnea BMI No Sleep Apnea Age Yes Sleep Apnea Neck No Sleep Apnea Gender Yes Sleep Apnea Score 3 Diagnosed With Sleep Apnea No Advanced Directives Unable to obtain Infectious Disease Symptoms Patient states no symptoms Infectious Disease Recent Exposure No Alcohol and Drug Use No Employee of Institutional Living No Health Care Employee No History of Exposure to TB No History of Positive Chest X-Ray for TB No History of Positive TB Skin Test No Homeless No Known Immunosuppression No Recent Immigrant No Resident of Institutional Living No Bloody Sputum No Fatigue No Fever No Loss of Appetite No Night Sweats No Persistent Cough > 3 Weeks No Weight Loss No Pre-Op Patient Education NPO after midnight, No smoking after midnight, No makeup, No jewelry, Aware of surgery location, Pre-op education done, 1 bottle CHG wash with instructions given, Instructed to take ordered medications SN - Preprocedure Comments Spoke with patient, Verbalizes/Nonverbally indicates understanding, Other: AMLODIPINE, METOPROLOL Barriers to Learning None evident Teaching Method Explanation, Printed materials Preferred Spoken Language Slovenian Preferred Written Language Slovenian Teaching Evaluation Verbalizes/Nonverbally indicates understanding Total Joint Book Given Yes Safety Brochure Information Reviewed Unable to complete [facility] Video Viewed No Information Given by Patient Patient's Current Physicians Patient's Current Physicians Discharge To, Anticipated Home with family care Prev Test Positive/Diagnosis w/COVID-19 No Current Quarantine/Isolated any Illness Unable to obtain Any Contact with Sick Animals/Birds No Traveled Anywhere in Last 30 Days No Lost Weight Unintentionally Recently No Eat Poorly Due to Decreased Appetite No Total MST Score 0 N/A Personal Devices, Patient Valuables Glasses Anesthesia/Transfusions Prior anesthesia Admission Note-Nursing Same Day Patient History 09/18/2023 8:41 EDT Urinary Elimination Incontinence IV Present Present Allergies Yes Anesthesia Extension Set Applied Yes Precision Farming Coordinator On Yes Consent Form Signed Yes Patient Dressed In Hospital gown CHG Preoperative Wash/Wipe Night before procedure, Day of procedure Preop Nasal Swab Povidone-Iodine CHG Skin Prep Completed for Eligible Surgery History & Physical Update On Chart Yes History & Physical On Chart Yes Obstructive Sleep Apnea Assess Completed Yes Belongings At Bedside Cane, Glasses, Hat, Pants, Shirt, Shoes Personal Home Medications Received No home medications were brought in NPO Status Maintained Allergy Band on and Verified Yes Patient ID Band on and Verified Yes Implants Verified Yes Pacemaker/AICD Verified Yes Site Verified by Patient/Family Yes Anesthesia Consent Signed Yes Blood Consent Signed Yes Last Fluid Intake 09/17/2023 19:00 Last Food Intake 09/17/2023 19:00 09/18/2023 8:35 EDT IHC At-Risk Indicator YES . Assessment and Plan [place] [employer] Anesthesiologists (ASA) physical status classification: Class III. Anesthetic Preoperative Plan Anesthetic technique: Spinal. Informed consent: signed by patient. Digitally Signed by JOSY WHALEN on 09/18/2023 11:21 AM [facility]12-16-2023 Note. MICRO - Microbiology PROCEDURE: Urine Culture [*1] [...] Locations *1: This test was performed at: [facility], [address] [place] [address], [facility] , [facility] ([place])04-24-2023 Evaluation + Plan note Future Scheduled Tests Radiology* XR Spine Lumbosacral Minimum 4 Views 04/24/23 [facility] 10-15-2023 Hospital Discharge instructions Additional Instructions Take antibiotics as prescribed, follow-up with your PCP in 3 to 5 days and return for any worsening of your symptoms.[facility] Work Phone: [phone]) 437-711508-23-2023 Miscellaneous Notes* Telephone Encounter - Kim Blackwell Tech - 02/07/2023 1:58 PM EDT Pharmacy faxes requesting refill: Requested Prescriptions Pending Prescriptions Disp Refills metoprolol succinate ER (TOPROL XL) 25 mg 24 hr tablet [Pharmacy Med Name: METOPROLOL SUCCINATE ER 25 MG Tablet Extended Release 24 Hour] 90 tablet 2 Sig: TAKE 1 TABLET AT BEDTIME Date of last visit:01/15/2023 Phone #: [phone] (home) The patients preferred pharmacy has been captured for this encounter? yes [facility] NoteHNO ID: [id number] Author: Uriel Paredes DO Service: ? Author Type: Physician Type: Progress Notes Filed: 01/21/2023 8:54 PM Note Text: Referring Provider: Uriel Paredes DO Date: January 15, 2023 Chief Complaint: [...] HFrEF (heart failure with reduced ejection fraction) ([facility]) History of cardiac cath 2013 EF 45%, [...] Mixed hyperlipidemia Myocardial infarction with cardiac rehabilitation ([facility]) PAST SURGICAL HISTORY Procedure Laterality Date ARTHRP [...] Sitting) Pulse 94 Ht 175.3 cm (5' 9) Wt 92.6 kg (204 lb 1.9 oz) BMI 30.14 kg/m? PHYSICAL EXAMINATION: BP 120/70 (BP Site: Left Arm, BP Position: Sitting) Pulse 94 Ht 175.3 cm (5' 9) Wt 92.6 kg (204 lb 1.9 oz) [...] the left side. Posterior (more content not included)...[facility]07-31-2023 History of Present illness Narrative* Uriel Paredes DO - 01/15/2023 2:45 PM EDT Images from the original note were not included. Referring Provider: Uriel Paredes DO Date: January 15, 2023 Chief Complaint: Established Patient Follow-Up (Dizziness, HTN, CAD) HISTORY OF PRESENT ILLNESS: Eben Cruz is a 77 year old male who presents for Established Patient Follow- Up (Dizziness, HTN, CAD). ALLERGIES Allergen Reactions Entresto [Sacubitri* Cough Throat sensation, cough PAST MEDICAL HISTORY: PAST MEDICAL HISTORY Diagnosis Date CAD (coronary artery disease) Cardiomyopathy ([facility]) Chronic systolic heart failure (HCC) Essential hypertension HFrEF (heart failure with reduced ejection fraction) ([facility]) History of cardiac cath 2013 EF 45%, and 50% cx, 30% LAD History of echocardiography 04/2019 EF 35-40%. Mod LV cavity enlargement, mod left atrial and mild right atrial enlargement, mild MR, mild TR, normal right-sided systolioc pressure. History of Holter monitoring 03/05/2014 48-Hour event monitor secondary to palpitations was completed. Demonstrated sinus rhythm from 73bpmto 154bpm. Multiple runs of wide-complex arrhythmias were seen. 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 History of stress test 2018 39 large inf scar Mixed hyperlipidemia Myocardial infarction with cardiac rehabilitation ([facility]) PAST SURGICAL HISTORY Procedure Laterality Date ARTHRP [...] mouth. Take every 2-3 days saw jack frt xtr-zinc [place]oli 80-15 mg cap Take [...] Sitting) Pulse 94 Ht 175.3 cm (5' 9) Wt 92.6 kg (204 lb 1.9 oz) BMI 30.14 kg/m PHYSICAL EXAMINATION: BP 120/70 (BP Site: Left Arm, BP Position: Sitting) Pulse 94 Ht 175.3 cm (5' 9) Wt 92.6 kg (204 lb 1.9 oz) [...] QTC Calculation (Bazett) 430 ms Calculated P [place] 59 degrees Calculated R [place] 8 degrees Calculated T [place] -26 degrees Narrative NAME : EBEN CRUZ PID : [id number] : 1945 Gender : Male Race : ORD : [id number] Procedure Date : Jan 15 2023 13:53:19 [...] By : , Referred By : URIEL PAREDES Acquired by : , Impression SINUS RHYTHM [...] as 120/70. Target systolic BP 140 or lessand diastolic BP 90 or less. Continue current medications. - ECG COMPLETE sinus with PVC 2. Hyperlipidemia LDL goal <70 - ICD9: 272.4, ICD10: E78.5 Patient is currently taking simvastatin every day. No recent blood work. 3. HFrEF (heart failure with reduced ejection fraction) ([facility]) - ICD9: 428.20, ICD10: I50.20 He is [...] has tachybrady syndrome as well as ventricular arr hythmias. 8. Non-smoker - ICD9: V49.89, ICD10: Z78.9 Patient has never been a smoker ILd , scribing for Dr. Uriel Paredes, was present in the room during the [...] family and compared it to the previous EKGsthat we have in the medical records. Changes were described to the patient. In a pictorial format; I described the ME and QRS intervals. This was to show the effects of antiarrhythmic therapy on the e lectrical system. I was able to look at [...] one hundred percent of my time in [id number] conversation with the patient. I answered all the questions and explained the diagnosis of heart failure and intolerance to Entresto. Greater that 51% of my time was spent with [id number] conversation with the patient. I have discussed the recommended treatment, alternative therapies and other options in detail. I've discussed the best benefit and side effects of these recommended treatments. I've attempted to answer all the questions to the patient's satisfaction and understanding. With approval, we would recommend an pursuethe current therapy such as no change. After leaving the exam room, I went back into the patient's chart and coordinated care with my nurse ordering the proper testing and medicinal changes. Letter was performed with voice recognition algorithms and sent to the referring team. The chart was completed. Including the pre-exam, exam and post- exam, the total time spent in the patient's management was greater than 15 minutes I, Dr. Uriel Paredes, have reviewed and agree with the information in the medical record. Uriel Paredes DO documented in this encounterSal[facility]07-06-[facility]23 Miscellaneous Notes* Telephone Encounter - Elin Mazariegos - 12/21/2022 2:24 PM EDT Pharmacy faxes requesting refill: Requested Prescriptions Pending Prescriptions Disp Refills simvastatin (ZOCOR) 10 mg tablet [Pharmacy Med Name: SIMVASTATIN 10 MG Tablet] 90 tablet 0 Sig: TAKE 1 TABLET AT BEDTIME Date of last visit:03/24/22 Phone #: [phone] (home) The patients preferred pharmacy has been captured for this encounter? yes documented in this encounterSal[facility] Hospital Discharge instructions Patient Education 12/02/2022 10:21:05 Corneal Abrasion Corneal Abrasion You have received a scratch or scrape (abrasion) to your cornea. The cornea is the clear part in the front of the eye. This sensitive area is very painful when injured. You may make tears frequently,and your vision may be blurry until the [...] is a chance of accidentally injuring it furtherwithout knowing it. Home care A cold pack may be applied over the eye (or eye patch) for 20 minutes at a time, to reduce pain. Tomake a cold pack, put ice cubes in a plastic bag that seals at the top. Wrap the bag in a clean, thin towel or cloth. You may use acetaminophen or ibuprofen to control pain, unless another pain medicine was prescribed. Note: If you have chronic liver or kidney disease or have ever had a stomach ulcer or GI bleeding,talk with your doctor before using these medicines. [...] are gone. You may have trouble judging distancesusing only one eye. If your eyes are [...] get worse after the abrasion has healed [phone] [employer]. [address] [place] [address]. All rights reserved. This information is not intended as a substitute for professional medical care. Always follow yourhealthcare professional's instructions. Follow Up Care 12/02/2022 09:44:52 With:[facility] Address: When:2-4 days With:IWONA STEWART MD Address: [address] [place] [address]- When:2-4 days [facility] 06-17-2023 Note Discharge Instructions Thank you for allowing [facility] to assist you with your healthcare needs. The following is importantdischarge information regarding your hospital visit. Diagnosis from Today's Visit Corneal abrasion Pain in eye What to Do Next Instructions from Your Care Team No qualifying data available. Post Acute Orders No qualifying data available. You Need to Schedule the Following Appointments Follow Up with [facility] When Within 2-4 days Where: Follow Up with IWONA STEWART MD When Within 2-4 days Where: [address] [place], [place] [id number]- Allergies Entresto (Unknown) Wool (Unknown) Medications Please ask your primary doctor or pharmacist before taking any other medication not listed, including over the counter drugs, herbal medications, vitamins and or supplements as they may interact withyour home medications. What How Much When Why Instructions Last Dose New acetaminophen-hydrocodone (Ardmore 325- 5 mg oral tablet) 1 tab(s) [...] and veronica droe KOE done) Hycet, Lorcet, Ardmore, Verdrocet, Vicodin, Xodol, Zamicet What is the [...] where to locate a drug take-back disposal program.If there is no take-back program, flush the unused medicine down the toilet. What happens if I miss a dose? Since this medicine is used for pain, you are not likely to miss a dose. Skip any missed dose if itis almost time for your next dose. Do [...] health department. Make sure any person caring foryou knows where you keep naloxone and how to use it. What should I avoid while taking acetaminophen and hydrocodone? Avoid driving or operating machinery until you know how this medicine will affect you. Dizziness ordrowsiness can cause falls, accidents, or severe injuries. [...] if you have slow breathing with long pauses,blue colored lips, or if you are hard to wake up. In rare cases, acetaminophen may cause a severe skin reaction that can be fatal. This could occur even if you have taken acetaminophen in the past and had no reaction. Stop taking this medicine and call your doctor right away if you have skin redness or a rash that spreads and causes blistering andpeeling. Call your doctor at once if you [...] may report side effects to FDA at 3-946-DDC-8864. What other drugs will affect acetaminophen and [...] affect acetaminophen and hydrocodone, including prescription and bxpb-bqo-qppvuay medicines, vitamins, and herbal products. Not all [...] to ensure that the information provided by [employer]. ('[employer]') is accurate, up-to-date, and complete, but no guarantee is made to that effect. Drug information contained herein may be time sensitive. [employer] information has been compiled for use by healthcare practitioners and consumers in the [place] and therefore [employer] does not warrant that uses outside of the [place] are appropriate, unless specifically indicated otherwise. [employer]'s drug information does not endorse drugs, diagnose patients or recommend therapy. [employer] drug information isan informational resource designed to assist licensed healthcare practitioners in caring for their p atients and/or to serve consumers viewing this service as a supplement to, and not a substitute for, the expertise, skill, knowledge and judgment of healthcare practitioners. The absence of a warningfor a given drug or drug combination in no way should be construed to indicate that the drug or drug combination is safe, effective or appropriate for any given patient. [employer] does not assume any responsibility for any aspect of healthcare administered with the aid of information [employer] provides. The information contained herein is not intended to cover all possible uses, directions, precautions, warnings, drug interactions, allergic reactions, or adverse effects. If you have questions about the drugs you are taking, check with your doctor, nurse or pharmacist. Copyright 1975-5777 [facility] [employer]. Version: 16.03. Revision Date: 07/20/2020. polymyxin B [...] used for purposes not listed in this medicationguide. What should I discuss with my healthcare [...] to 10 days. Follow all directions on yourprescription label and read all medication guides or [...] may report side effects to FDA at 2-896-YFW-4238. What other drugs will affect polymyxin B and trimethoprim ophthalmic? Medicine used in the eyes is not likely to be affected by other drugs you use. But many drugs can interact. Tell your doctor about all your current medicines, including prescription and ndwk-tsn-ccjfilr medicines, vitamins, and herbal products. Where can [...] to ensure that the information provided by [employer]') is accurate, up-to-date, and complete, but no guarantee is made to that effect. Drug information contained herein may be time sensitive. [employer] information has been compiled for use by healthcare practitioners and consumers in the [place] and therefore [employer] does not warrant that uses outside of the [place] are appropriate, unless specifically indicated otherwise. [employer] drug information does not endorse drugs, diagnose patients or recommend therapy. [employer] drug information isan informational resource designed to assist licensed healthcare practitioners in caring for their p atients and/or to serve consumers viewing this service as a supplement to, and not a substitute for, the expertise, skill, knowledge and judgment of healthcare practitioners. The absence of a warningfor a given drug or drug combination in no way should be construed to indicate that the drug or drug combination is safe, effective or appropriate for any given patient. [employer] does not assume any responsibility for any aspect of healthcare administered with the aid of information [employer] provides. The information contained herein is not intended to cover all possible uses, directions, precautions, warnings, drug interactions, allergic reactions, or adverse effects. If you have questions about the drugs you are taking, check with your doctor, nurse or pharmacist. Copyright 6365-3629 [employer]. Version: 5.01. Revision Date: 07/21/2021. ketorolac ophthalmic [...] day before surgery and continue for up to2 weeks afterward. For corneal refractive surgery the [...] may report side effects to FDA at 9-050-MXO-8269. What other drugs will affect ketorolac ophthalmic? It is not likely that other drugs you take orally or inject will have an effect on ketorolac used in the eyes. But many drugs can interact with each other. Tell each of your healthcare providers about all medicines you use, including prescription and eoyn-qog-wmqxumc medicines, vitamins, and herbalproducts. Where can I get more information? Your doctor or pharmacist can provide more information about ketorolac ophthalmic. Remember, keep this and all other medicines out of the reach of children, never share your medicines with others, and use this medication only for the indication prescribed. Every effort has been made to ensure that the information provided by [employer]') is accurate, up-to-date, and complete, but no guarantee is made to that effect. Drug information contained herein may be time sensitive. [employer] information has been compiled for use by healthcare practitioners and consumers in the [place] and therefore [employer] does not warrant that uses outside of the [place] are appropriate, unless specifically indicated otherwise. [employer] drug information does not endorse drugs, diagnose patients or recommend therapy. [employer] drug information isan informational resource designed to assist licensed healthcare practitioners in caring for their p atients and/or to serve consumers viewing this service as a supplement to, and not a substitute for, the expertise, skill, knowledge and judgment of healthcare practitioners. The absence of a warningfor a given drug or drug combination in no way should be construed to indicate that the drug or drug combination is safe, effective or appropriate for any given patient. [employer] does not assume any responsibility for any aspect of healthcare administered with the aid of information [employer] provides. The information contained herein is not intended to cover all possible uses, directions, precautions, warnings, drug interactions, allergic reactions, or adverse effects. If you have questions about the drugs you are taking, check with your doctor, nurse or pharmacist. Copyright 4922-9712 [employer]. Version: 8.01. Revision Date: 01/05/2016. Education Materials Corneal Abrasion You have received a scratch or scrape (abrasion) to your cornea. The cornea is the clear part in the front of the eye. This sensitive area is very painful when injured. You may make tears frequently,and your vision may be blurry until the [...] is a chance of accidentally injuring it furtherwithout knowing it. Home care A cold pack may be applied over the eye (or eye patch) for 20 minutes at a time, to reduce pain. Tomake a cold pack, put ice cubes in a plastic bag that seals at the top. Wrap the bag in a clean, thin towel or cloth. You may use acetaminophen or ibuprofen to control pain, unless another pain medicine was prescribed. Note: If you have chronic liver or kidney disease or have ever had a stomach ulcer or GI bleeding,talk with your doctor before using these medicines. [...] are gone. You may have trouble judging distancesusing only one eye. If your eyes are [...] get worse after the abrasion has healed 1445-4306 The [employer]. [address] [place] [address]. All rights reserved. This information is not intended as a substitute for professional medical care. Always follow yourhealthcare professional's instructions. Additional Information VACCINATE! IT SAVES LIVES! Members of the community who have not yet received the COVID-19 vaccine and would like to receive it can visit one of [facility] vaccine clinics. There are many vaccine clinic locations within the [facility]. For locations and available times, please visit www.gettheshot.coronavirus.[place].gov/. It is important to note that some COVID mobile vaccine clinics are held outdoors and may be canceled in rainy or stormy conditions. To learn more about pediatric vaccinations (ages 5-11), we invite you to visit the [facility] webpage. https://www.[facility].org/pages/0424-Nnogw-Eejcovkftfj-Nhwcupukni-Sdvvg-Eit stions.htmlTo learn more about the COVID-19 vaccine, we invite you to visit the CDC website for a list of frequently asked questions. https://www.cdc.gov/coronavirus/2019-ncov/vaccines/faq.html [facility] Access Instructions: Stay connected with your healthcare team and access your personal medical information anytime with the [facility] Patient Portal. If you would like a full copy of your medical records please contact the [facility] Medical Records Department Sunday through Sunday between 8a.m. and 4:30p.m. Please follow the directions below to access the portal: 1.Access the email account you provided upon registration to the [facility].2.Look for an invitation email from [facility].3.Open the email and access the invitation link: Accept Invitation to [employer]4.Fill in the required black to create your account. Sign into [email or web address].Ravti with your username and password that you [...] you will allow to register on the [employer] Patient Portal for access to your information. You can also access the [employer] Patient Portal on the VitaPortal. Simply click on Health Records under [employer] and then click on the [employer] logo. HOW TO SAFELY DISPOSE OF PRESCRIPTION MEDICATIONS Please use one of the following methods to safely dispose of your unused medications. 1.Use a drug disposal kit: the drug disposal pouch allows you to safely discard your old and unuseddrugs. Ask your nurse to give you one when you are discharged.2.Visit a local take-back location: Many local pharmacies and police departments have programs that collect old and unwanted prescriptiondrugs. Call your local pharmacy or go to http://Byban.Budge/3Z3Ib2f to find one close to you.3.Make use of household items: Use cat litter or old coffee grounds to dispose medications if other options arenot available. Mix your drugs with these household products, seal them in an airtight container andthrow it into the garbage. Call [facility]: [phone] to be sure your drugs can be [...] drowsiness, such as benzodiazepines, also known as benzos,including diazepam and alprazolam, muscle relaxants or sleep aids. Never sell or share prescriptionopioids. This is illegal. Store opioids in a [...] am aware that I should contact my d octor. Patient/[employer] Signature: Date/Time: Relationship to Patient: Witness Name/Signature: Date/Time: [facility]04-07-2023 Evaluation + Plan note Future Scheduled Tests Radiology* XR Knee 3 Views Left 09/22/22 * XR Knee 3 Views Right 09/22/22 [facility] 04-07-2023 Evaluation + Plan note Future Scheduled Tests Radiology* XR Knee 3 Views Left 09/22/22 * XR Knee 3 Views Right 09/22/22 * XR Spine Lumbosacral Minimum 4 Views 04/24/23 [facility] 02-24-2023 History of Present illness Narrative* Eliza Molina DO - 08/11/2022 5:46 PM EST Eben Cruz is a 77 year old MALE who presents with Musculoskeletal Problem (Left leg pain no injury pain x 1 week) HPI PAST MEDICAL HISTORY Diagnosis Date CAD (coronary artery disease) Cardiomyopathy ([facility]) Chronic systolic heart failure (HCC) Essential hypertension HFrEF (heart failure with reduced ejection fraction) ([facility]) History of cardiac cath 2013 EF 45%, and 50% cx, 30% LAD History of echocardiography 04/2019 EF 35-40%. Mod LV cavity enlargement, mod left atrial and mild right atrial enlargement, mild MR, mild TR, normal right-sided systolioc pressure. History of stress test 2018 39 large inf scar Mixed hyperlipidemia Myocardial infarction with cardiac rehabilitation ([facility]) ACTIVE PROBLEM LIST Cardiomyopathy ([facility]) History of Echocardiography Cad (Coronary Artery [...] down onto the sciatic notch. There is radiationof pain from the sciatic notch down the [...] MG TABLET - DEXAMETHASONE 4 MG TABLET Eliza Molina documented [facility]12[facility]29[facility] Miscellaneous Notes* Telephone Encounter - Elin Mazariegos - 06/15/2022 10:03 AM EST Patient calls requesting refill: Requested Prescriptions Pending Prescriptions Disp Refills simvastatin (ZOCOR) 10 mg tablet 90 tablet 1 Sig: TAKE 1 TABLET BY MOUTH EVERYDAY AT BEDTIME metoprolol succinate ER (TOPROL XL) 25 mg 24 hr tablet 90 tablet 1 Sig: TAKE 1 TABLET BY MOUTH EVERYDAY AT BEDTIME Date of last visit:03/24/22 Phone #: [phone] (home) The patients preferred pharmacy has been captured for this encounter? yes documented in this encounterSalem City [facility]10-07-2022 NoteHNO ID: [id number] Author: Uriel Paredes DO Service: ? Author Type: Physician Type: [...] Diagnosis Date CAD (coronary artery disease) Cardiomyopathy ([facility]) Essential hypertension HFrEF (heart failure with reduced ejection fraction) ([facility]) History of cardiac cath 2013 EF 45%, and 50% cx, 30% LAD History of echocardiography 04/2019 EF 35-40%. Mod LV cavity enlargement, mod left atrial and mild right atrial enlargement, mild MR, mild TR, normal right-sided systolioc pressure. History of stress test 2018 39 large inf scar Mixed hyperlipidemia Myocardial infarction with cardiac rehabilitation ([facility]) PAST SURGICAL HISTORY Procedure Laterality Date ARTHRP [...] mouth. Take every 2-3 days saw jack frt xtr-zinc picoli 80-15 mg cap Take [...] Sitting) Pulse 71 Ht 175.3 cm (5' 9) Wt 95.3 kg (210 lb) BMI 31.01 kg/m? PHYSICAL EXAMINATION: BP 120/68 (BP Position: Sitting) Pulse 71 Ht 175.3 cm (5' 9) Wt 95.3 kg (210 lb) BMI 31.01 [...] heart sound loud. P (more content not included)...[facility]10-07-2022 History of Present illness Narrative* Uriel Rosenberg Verito, - 03/24/2022 6:48 AM EDT Today's EKG is sinus referring Provider: No ref. provider found Date: March 24, 2022 Chief Complaint: Follow Up HISTORY OF PRESENT ILLNESS: Eben Cruz is a 77 year old male who presents for Follow Up. ALLERGIES Allergen Reactions Entresto [Sacubitri* Cough Throat sensation, cough PAST MEDICAL HISTORY: PAST MEDICAL HISTORY Diagnosis Date CAD (coronary artery disease) Cardiomyopathy ([facility]) Essential hypertension HFrEF (heart failure with reduced ejection fraction) ([facility]) History of cardiac cath 2013 EF 45%, and 50% cx, 30% LAD History of echocardiography 04/2019 EF 35-40%. Mod LV cavity enlargement, mod left atrial and mild right atrial enlargement, mild MR, mild TR, normal right-sided systolioc pressure. History of stress test 2018 39 large inf scar Mixed hyperlipidemia Myocardial infarction with cardiac rehabilitation ([facility]) PAST SURGICAL HISTORY Procedure Laterality Date ARTHRP [...] Sitting) Pulse 71 Ht 175.3 cm (5' 9) Wt 95.3 kg (210 lb) BMI 31.01kg/m PHYSICAL EXAMINATION: BP 120/68 (BP Position: Sitting) Pulse 71 Ht 175.3 cm (5' 9) Wt 95.3 kg (210 lb) BMI 31.01kg/m Last 3 Encounter BP Readings: Date: BP: [...] QTC Calculation (Bazett) 417 ms Calculated P [place] 63 degrees Calculated R [place] 26 degrees Calculated T [place] 36 degrees Narrative NAME : EBEN CRUZ PID : [id number] : 1945 Gender : Male Race : ORD : [id number] Procedure Date : Mar 24 2022 07:08:06 [...] Test Reason : Location : 621 : [facility] Overread By : , Edited By : , Referred By : URIEL PAREDES Acquired by : 0830, Impression SINUS RHYTHM WITH 1ST DEGREE AV [...] another physician. 4. 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- ICD9: 414.01, ICD10: I25.10 EF 45%, and [...] Lidia Manuel MA, scribing for Dr. Uriel Paredes. Follow up in: Prior to entering the [...] family and compared it to the previous EKGsthat we have in the medical records. Changes were described to the patient. In a pictorial format; I described the ME and QRS intervals. This was to show the effects of antiarrhythmic therapy on the e lectrical system. I was able to look at [...] one hundred percent of my time in ddhs-ck-hdno conversation with the patient. I answered all the questions and explained the diagnosis of HFrEF . Greater that 51% of my time was spent with cbal-do-inkh conversation with the patient. I have discussed the recommended treatment, alternative therapies and other options in detail. I've discussed the best benefit and side effects of these recommended treatments. I've attempted to answer all the questions to the patient's satisfaction and understanding. With approval, we would recommend an pursuethe current therapy such as no change. After leaving the exam room, I went back into the patient's chart and coordinated care with my nurse ordering the proper testing and medicinal changes. Letter was performed with voice recognition algorithms and sent to the referring team. The chart was completed. Including the pre-exam, exam and post- exam, the total time spent in the patient's management was greater than 15 minutes I, Dr. Uriel Paredes, have reviewed and agree with the information in the medical record. Uriel Paredes DO documented in this encounterSalem City Hospital06-06-2022 Miscellaneous Notes* Telephone Encounter - Bianca Mcdonald RN - 11/21/2021 9:22 AM EDT Pharmacy faxes requesting refill: Pending Prescriptions Disp Refills METOPROLOL SUCCINATE ER 25 MG TABLET,EXTENDED RELEASE 24 HR 90 tablet 1 Sig: TAKE 1 TABLET BY MOUTH EVERYDAY AT BEDTIME JEEVAN: Yes Date of last visit:04/20/21 Phone #: [phone] (home) [phone] (cell) The patients preferred pharmacy has been captured for this encounter? yes documented in this encounterSalem City Hospital03-11-2022 Miscellaneous Notes* Telephone Encounter - Génesis Aparicio MA - 08/26/2021 8:00 AM EST Pharmacy faxes requesting refill: Pending Prescriptions Disp Refills SIMVASTATIN 10 MG TABLET 90 tablet 3 Sig: TAKE 1 TABLET BY MOUTH EVERYDAY AT BEDTIME JEEVAN: Yes Date of last visit:04/20/2021 Phone #: [phone] (home) [phone] (cell) The patients preferred pharmacy has been captured for this encounter? yes documented in this encounterSalem City HospitalConsu note Author Rodney Brown [facility] April 27, 2023 1:26pm Note Date/Time April 27, 2023 1:18pm [facility] Medical Records Department [address] [place] [id number] Consultation - Scientific Informatics Leader 04/27/23 1306 MR#: [id number] Acct: [id number] Name: EBEN CRUZ Rep #:[id number] : 1945 78 From: Rodney Edmond PCP: Dr. Iwona Stewart MD Status:ADM IN Location: ICU ICU01-1 Assessment & Plan Assessment/Plan (1) Acute ischemic stroke: PLAN: Plan Assessment and plan * Acute ischemic stroke with left-sided weakness status post tPA the patient will require to be on aspirin and statin. He will be admitted to the ICU with close monitoring and goal BP of 180/105 mmHg or less for the first 24 hours. He will need q1hr neuro checks and swallow assessment. * Elevated troponins. EKG is pending. Patient reports history of valvular heart disease. No echo on record. Echo is ordered. cardiology consulted * HTN: will allow permissive HTN with goal BP of 180/105 mmHg or less * DVT ppx: pt is s/p TPA Pt is at high risk of deterioration given his current clinical status, recent tpa administration and possible ongoing cardiac ischemic event. Pt's daughter updated at bedside I spent 35 minutes of critical care time excluding the procedure time. I reviewed lab work, images, previous records and medication list. HPI Consult Data Date of Consult: 04/27/23 HPI Narrative Reason for Consultation: Stroke status post tPA HPI Narrative: EBEN CRUZ, is a 78 M with past medical history of hyperlipidemia, hypertension and valvular heart disease who presents with chief complaint of left-sided weakness and numbness that started this morning while he was driving. A stroke alert was called. NIH scale was 5. CT head was negative. CTA shows high-grade stenosis of right external carotid artery. [facility]. He was administered tPA a and will be monitored in the ICU. Patient's daughter was at bedside in the ED when I evaluated the patient. Denies dizziness, nausea or vomiting, visual disturbance or headache. Social history is negative for smoking Surgical history significant for left shoulder replacement and right hip replacement. [facility] Medical History Arthritis Hypertension Leaky heart valve Home Medications cephalexin 500 mg capsule 500 mg PO Q6 #40 CAPSULES 04/01/23 [Rx Last Taken Unknown] Allergy/AdvReac Type Severity Reaction Status Date / Time sacubitril [From Entresto] Allergy Mild cough Verified 04/27/23 12:06 valsartan [From Entresto] Allergy Mild cough Verified 04/27/23 12:06 Social History Smoking Status: Never smoker Physical Exam Narrative General alert oriented in no acute distress HEENT. Normocephalic atraumatic, pupils equal and reactive Respiratory reduced air entry bilaterally, mild end expiratory wheeze, no crackles Cardiac S1-S2, regular rate and rhythm GI abdomen soft and nontender MSK no lower extremity edema Skin no rashes Neuro L sided upper and lower extremity weakness reduced fine touch sensation on L Lab / Micro Data 04/27/23 12:10 04/27/23 12:10 Labs: Laboratory Results - last 24 hr 04/27/23 12:10: WBC 8.1, RBC 4.09 L, Hgb 12.5 L, Hct 41.1, MCV 100.5 H, MCH 30.6, MCHC 30.4 L, RDW Std Deviation 48.2 H, RDW Coeff of Santiago 13.0, Plt Count 214, MPV 10.5, Immature Gran % (Auto) 0.700, Neut % (Auto) 69.0, Lymph % (Auto) 18.0 L, [place] % (Auto) 10.0, Eos % (Auto) 1.7, Baso % (Auto) 0.6, Absolute Neuts (auto) 5.6, Absolute Lymphs (auto) 1.46, Nucleated RBC % 0, PT 14.5, INR 1.1, APTT 30.3 Radiology Impression Head/Neck CTA 04/27/23 11:54 IMPRESSION: Minimal plaque at the origin of the right and left internal carotid arteries causing less than 50% narrowing. 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 N.B. : The above Results were Read Back by Ramesh Meehan MD to Dr David MD, and understanding confirmed on 04/27/2023 12:16:17 (ET). Electronically Signed: Ramesh Meehan MD at 12:17 EST , ADDENDUM: 04/27/23 1224 IMPRESSION: Minimal plaque at the origin of the right and left internal carotid arteries causing less than 50% narrowing. 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 N.B. : The above Results were Read Back by Ramesh Meehan MD to Dr David MD, and understanding confirmed on 04/27/2023 12:16:17 (ET). Electronically Signed: Ramesh Meehan MD at 12:17 EST , Brain CT 04/27/23 11:55 IMPRESSION: Chronic involutional changes of the brain. Questionable tiny old lacunar infarct in the head of the right caudate nucleus. N.B. : The above Results were Read Back by Ramesh Meehan MD to Isai Hernandez and understanding confirmed on 04/27/2023 12:07:16 (ET). Electronically Signed: Ramesh Meehan MD at 12:08 EST , ADDENDUM: 04/27/23 1215 IMPRESSION: Chronic involutional changes of the brain. Questionable tiny old lacunar infarct in the head of the right caudate nucleus. N.B. : The above Results were Read Back by Ramesh Meehan MD to Isai Hernandez and understanding confirmed on 04/27/2023 12:07:16 (ET). Electronically Signed: Ramesh Meehan MD at 12:08 EST , Charges/Coding Procedures Hospitalists Procedures: 29135 Critial Care 1st Hr 04/27/23 1326 <Electronically signed by Rodney Brown MD> Cosigner Signature (if applicable): CC: Dr. Iwona Stewart MD~ Signed [facility] Work Phone: Discharge summary Author Isai Hernandez [facility] April 27, 2023 12:28pm Note Date/Time April 27, 2023 12:02pm [facility] Medical Records Department [address] [place] [address] Emergency Department Summary 04/27/23 MR#: [id number] Acct: [id number] Name: EBEN CRUZ Rep #:[id number] : 1945 78 From: Isai Hernandez MD PCP: Dr. Iwona Stewart MD Status:REG ER Location: ED HPI History of Present Illness Chief Complaint: Neuro S/Sx Detail of Chief Complaint: Last known well 11 AM. Informant: patient and EMS Onset/Context/Timing Onset: Today (11 AM) Context: Sudden Onset Timing: Continuous Quality and Location: Positive for Left Facial Droop, Left Arm Weakness and LeftLeg Weakness Onset: 11 AM Current Severity: Mild Maximum Severity: Mild Worsened by: Nothing Relieved by: Nothing Associated Symptoms Associated Symptoms: Negative for Headache, Nausea, Vomiting or Chest Pain Narrative Narrative: Patient is an 78-year-old male. He is disoriented to time. He has history of aleaky heart valve and is on a statin. He is not on an antithrombotic or anticoagulant. He denies headache. Denies visual disturbance. He denies trouble with his speech. He denies cardiac respiratory symptoms. [place]ys GI symptom. Prior similar symptoms: No Recent Illness/Hospitalization: No PFSH PFSH Medical History Arthritis Hypertension Leaky heart valve Home Medications cephalexin 500 mg capsule 500 mg PO Q6 #40 CAPSULES 04/01/23 [Rx Last Taken Unknown] Allergy/AdvReac Type Severity Reaction Status Date / Time sacubitril [From Entresto] Allergy Mild cough Verified 04/27/23 12:06 valsartan [From Entresto] Allergy Mild cough Verified 04/27/23 12:06 Social History Smoking Status: Never smoker ROS ROS ED Constitutional Constitutional ED: Denies chills, fever(s), subjective, sweats or weakness Eyes Eyes: Denies blurry vision, change in vision or diplopia ENT ENT ED: Denies ear pain, rhinorrhea or sore throat Cardiovascular Cardiovascular: Denies chest pain Respiratory/Chest Respiratory/Chest: Denies cough, dyspnea or dyspnea on exertion Gastrointestinal Gastrointestinal: Denies abdominal pain, nausea or vomiting Genitourinary Genitourinary ED: Denies dysuria, hematuria or urinary frequency Musculoskeletal Musculoskeletal: Reports arthralgias Integumentary Denies rash Neurologic Neurologic: Reports weakness; Denies headache(s) or paresthesias Endocrine Endocrinology: Denies polydipsia or polyuria EXAM Physical Exam Const Vital Signs: 04/27/23 12:03 04/27/23 11:53 04/27/23 12:11 Temperature 96.8 F L Temperature Source Temporal Pulse Rate Respiratory Rate 18 18 Blood Pressure 157/83 H 157/83 H Blood Pressure Mean 107 107 Pulse Ox 100 100 94 Oxygen Delivery Method Room Air Room Air Room Air 04/27/23 11:54 04/27/23 12:13 04/27/23 11:53 Temperature Temperature Source Pulse Rate 98 96 100 Respiratory Rate 16 11 L 18 Blood Pressure 141/90 H 141/90 H 157/83 H Blood Pressure Mean 107 107 107 Pulse Ox 97 96 100 Oxygen Delivery Method Room Air Room Air Room Air 04/27/23 12:23 Temperature Temperature Source Pulse Rate Respiratory Rate Blood Pressure 126/79 H Blood Pressure Mean Pulse Ox Oxygen Delivery Method Positive well nourished and well developed General Appearance ED: well developed and NAD HEENT Reports moist mucous membranes atraumatic Eyes PERRL and EOMs intact bilaterally Eyes Narrative: There is no nystagmus. General Eye ED: Yes scleral icterus; Negative for pale conjunctiva Neck no lymphadenopathy, supple and no JVD Cardio no murmurs Rate: regular rate Rhythm: regular rhythm GI normal to inspection, nondistended, normoactive bowel sounds, soft to palpation,non-tender, non-distended and no masses Back/Spine no CVA tenderness Extremity General Extremety ED: Negative for deformity or tenderness General Extremity: Negative for deformity Neuro No oriented x3, CN's II-XII intact bilaterally and No no sensory deficits noted Idania Coma Scale: document GCS findings Spontaneous Obeys Commands Confused 14 Sensorium / Orientation: Negative for alert Speech: speech normal Skin no wounds General Skin Exam: Negative for jaundice Lesions: no lesions Rashes: no rashes NIHSS NIHSS Initial: 1a Level of Consciousness: 1 1b LOC Questions (Score 2 if aphasic/stupor): 1 1c LOC Commands (Only score 1st attempt): 0 2 Best Gaze (If aphasic, use reflexive mvmts.): 0 3 Visual: 0 4 Facial Palsy: 1 5 Motor Arm Right (UN = amputation/fusion): 0 5 Motor Arm Left: 0 6 Motor Leg Right: 0 6 Motor Leg Left: 1 7 Limb ataxia (Only + if out of proportion): 0 8 Sensory (Aphasia/stupor=0 or 1, coma=2): 1 9 Best Language: 0 10 Dysarthria (mute, coma=2, intubated=UN): 0 11 Extinction and Inattention (only scored if +): 0 Total Score: 5 MDM MDM MDM Narrative Medical decision making narrative: Prehospital stroke team was called. Pharmacy was made aware that patient is a candidate for TNK. Patient's deficits are minor. Will discuss with neurology at [facility] prior to administration of TNK. He has no contraindications. Prior to ordering tenecteplase pharmacy was made aware. The order was placed. Tenecteplase order set was used. Spoke with Dr. Garcia neurologist at [facility]. Patient will require admission to ICU. History & Record Review Discussion w/independent historian: EMS personnel and Patient Radiography Diagnostic Testing: Clinical Impression(s) from Imaging Studies Head/Neck CTA 04/27/23 11:54 IMPRESSION: Minimal plaque at the origin of the right and left internal carotid arteries causing less than 50% narrowing. 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 N.B. : The above Results were Read Back by Ramesh Meehan MD to Dr David MD, and understanding confirmed on 04/27/2023 12:16:17 (ET). Electronically Signed: Ramesh Meehan MD at 12:17 EST , ADDENDUM: 04/27/23 1224 IMPRESSION: Minimal plaque at the origin of the right and left internal carotid arteries causing less than 50% narrowing. 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 N.B. : The above Results were Read Back by Ramesh Meehan MD to Dr David MD, and understanding confirmed on 04/27/2023 12:16:17 (ET). Electronically Signed: Ramesh Meehan MD at 12:17 EST , Brain CT 04/27/23 11:55 IMPRESSION: Chronic involutional changes of the brain. Questionable tiny old lacunar infarct in the head of the right caudate nucleus. N.B. : The above Results were Read Back by Ramesh Meehan MD to Isai Hernandez and understanding confirmed on 04/27/2023 12:07:16 (ET). Electronically Signed: Ramesh Meehan MD at 12:08 EST , ADDENDUM: 04/27/23 1215 IMPRESSION: Chronic involutional changes of the brain. Questionable tiny old lacunar infarct in the head of the right caudate nucleus. N.B. : The above Results were Read Back by Ramesh Meehan MD to Isai Hernandez and understanding confirmed on 04/27/2023 12:07:16 (ET). Electronically Signed: Ramesh Meehan MD at 12:08 EST , EKG Initial EKG: Attestation: I personally reviewed and interpreted this EKG as follows: Interpretation: Sinus Tachycardia (Rate is 101. Patient has couplets of premature ventricular beats. There is no ossific ST-T wave changes noted. The ME interval is 184 ms. The QRS duration is 94 ms. QT durations are 150 ms. [place] is normal.) Treatment and Re-Evaluation Narrative: I did receive a call at 1208 from radiology regarding patient's scan. There is no acute findings. Stroke Documentation Questions Stroke Team Activated: Yes Reviewed Inclusion/Exclusion criteria: Yes IV Thrombolytic Administered: Yes No contraindications from thrombolytic administration: Yes Risks, Benefits, Alternatives Discussed: Yes Not given: Patient refusal: No Critical Care Time Critical Care Time: Yes Critical care time (excluding procedures): 30-74 minutes (31), Including time spent: (Prehospital report, examination in ambulance bay, examination and radiology suite, completion of right exam in room 8, discussion with radiologist, discussion with neurologist at [facility] Dr. Garcia), Discussing w/Patient &/or Family/Labor Economics Teacher (Inform patient that he is having a stroke. Informed patient of his benefits of tenecteplase and that this is recommended by the neurologist at [facility].), Discussing w/Consultants (Radiologist and neurologist at [facility] and [facility] respectively.), Arranging Admission or Transfer (Hospitalist paged for admission) and Performing Direct Patient Care at Bedside Discharge Plan Triage Chief Complaint: Neuro S/Sx ED Provider: Isai Hernandez Dx/Rx/DC Orders Clinical Impression: Acute stroke due to ischemia, Hx of valvular heart disease, Frequent ventricular premature beats, Hypercholesterolemia, Elevated blood-pressure reading, without diagnosis of hypertension, Sinus tachycardia by electrocardiogram Prescriptions: No Action cephalexin 500 mg capsule 500 mg PO Q6 Qty: 40 0RF Primary Care Provider: Iwona Stewart Referrals: Iwona Stewart MD [Primary Care Provider] - Disposition Disposition: Home, Self Care What to do if you have Problems For any increased pain, shortness of breath, bleeding, nausea or vomiting, chestpain, or any unexpected problems, contact your Primary Care Provider. Call [facility] ([phone]) or report to the closest Emergency Room. Call 911 if necessary. 04/27/23 1228 <Electronically signed by Isai Hernandez MD> Cosigner Signature (if applicable): CC: Dr. Iwona Stewart MD ~ Signed [facility] Work Phone: Evaluation + Plan note No data available for this section [facility] Evaluation + Plan note Future Appointments Appointment Date:07/31/2023 10:00:00 AM Scheduled Provider:IWONA STEWART MD Location:[facility] Appointment Type:PC OV Pre Op Appointment Date:08/17/2023 04:30:00 PM Scheduled Provider: Location:[facility] Appointment Type:PT Outpatient Evaluation Future Scheduled Tests Radiology* XR Knee 3 Views Left 09/22/22 * XR Knee 3 Views Right 09/22/22 * XR Spine Lumbosacral Minimum 4 Views 04/24/23 [facility] evaluation + Plan note Future Appointments Appointment Date:01/29/2024 08:30:00 AM Scheduled Provider:IWONA STEWART MD [facility] Appointment Type:PC OV Future Scheduled Tests Radiology* XR Spine Lumbosacral Minimum 4 Views 04/24/23 [facility] Evaluation + Plan note Future Appointments Appointment Date:07/29/2024 09:00:00 AM Scheduled Provider:IWONA STEWART MD Location:[facility] Appointment Type:PC OV Future Scheduled Tests Laboratory* Basic Metabolic Panel 01/29/24 * A1C Hemoglobin 07/31/24 * Lipid Profile 07/31/24 * Complete Metabolic Panel 07/31/24 [facility] evaluation note* Diagnosis Dizziness- Primary Dizziness and giddiness Essential hypertension Unspecified essential hypertension Mixed hyperlipidemia 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 Cardiomyopathy, unspecified type (HCC) History of stress test Other specified conditions influencing health status History of cardiac cath Other postprocedural status Non-smoker Other specified conditions influencing health status [facility] Diagnosis Left sided sciatica- Primary Sciatica documented in this encounter [facility] note* Diagnosis Essential hypertension- Primary Unspecified essential [...] influencing health status [facility] noteNo assessment information availableWMercy [facility] Work Phone: evaluation note* Diagnosis Onset Date Resolution Status Acute ischemic stroke acute Acute stroke due to ischemia acute Elevated blood-pressure read ing, without diagnosis of hypertension acute Elevated troponin I level ac eagle Frequent ventricular premature beats acute Hx of valvular heart disease acute Hypercholesterolemia acute Sinus tachycardia by electrocardiogram [facility] Work Phone: evaluation note* Diagnosis Onset Date Resolution Status Acute stroke due to ischemia acute Elevated blood-pressure read ing, without diagnosis of hypertension acute Elevated troponin I level ac eagle Frequent ventricular premature beats acute Hx of valvular heart disease acute Hypercholesterolemia acute Sinus tachycardia by electrocardiogram acute Acute ischemic stroke resolv ed Acute stroke due to ischemia acute Carotid artery stenosis acut e Chest pain acute CHRISTIANSEN (dyspnea on exertion) ac eagle Hypercholesterolemia acute [facility] Work Phone: Evaluation note* Diagnosis Onset Date Resolution Status Acute stroke due to ischemia acute Elevated blood-pressure read ing, without diagnosis of hypertension acute Elevated troponin I level ac eagle Frequent ventricular premature beats acute Hx of valvular heart disease acute Hypercholesterolemia acute Sinus tachycardia by electrocardiogram acute Acute ischemic stroke resol ed Acute stroke due to ischemia acute Carotid artery stenosis acut e Chest pain acute CHRISTIANSEN (dyspnea on exertion) ac eagle Hypercholesterolemia acute Acute stroke due to ischemia acute CAD (coronary artery disease) acute Carotid artery stenosis acut e Hypercholesterolemia acute [facility] Work Phone: Evaluation note* Diagnosis Onset Date Resolution Status Acute stroke due to ischemia acute CAD (coronary artery disease) acute Carotid artery stenosis acut e Hypercholesterolemia acute Acute hypoxic respiratory failure acute CAD (coronary artery disease) acute Dyslipidemia acute Edema of left lower extremity acute Heart failure with reduced ejection fraction acute History of CVA (cerebrovascular accident) acute NSTEMI, initial episode of care acute Acute on chronic anemia chicken catcher adria Hypertension chronic [facility] Work Phone: Evaluation note* Diagnosis 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)- Primary 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) Stented coronary artery Postsurgical percutaneous transluminal coronary angioplasty status HFrEF (heart failure with reduced ejection fraction) (HCC) Persistent atrial fibrillation (HCC) Atrial fibrillation HFrEF (heart failure with reduced ejection fraction) (HCC) 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) [facility] Diagnosis Onset Date Resolution Status CAD (coronary artery disease) acute Edema of left lower extremity acute Heart failure with reduced ejection fraction acute NSTEMI, initial episode of care acute Acute on chronic anemia chicken catcher adria Hypertension chronic Acute hypoxic respiratory failure resolved Acute HFrEF (heart failure w ith reduced ejection fraction) acute Atrial fibrillation acute CAD (coronary artery disease) acute Debility acute Hyperlipidemia acute Stenosis of right carotid artery acute Stroke acute Hypertension chronic Insomnia resolved NSTEMI (non-ST elevated myocardial infarction) resolved Pleural effusion, left resol charisse [facility] Work Phone: Evaluation note* Diagnosis Subacute cough- Primary Cough Community acquired pneumonia of left lower lobe of lung [facility]* Diagnosis Subacute cough Cough documented in this encounter [facility] Discharge instructions No data available for this section [facility] Progress note No data available for this section [facility] Reason for referral (narrative)* Outpatient Procedure (Routine) - Closed Specialty Diagnoses / Procedures Referred By Contac t Referred To [facility] Diagnoses Essential hypertension Procedures ECG COMPLETE ECG ROUTINE ECG W/LEAST 12 LDS W/I&R Uriel Paredes DO [address] [place] [address] [facility] [place] [address] [place] [id number] Referral ID Status Reason Start Date Expiration Date V isits Requested Visits Authorized [id number] Closed Auto-Generate d Referral 03/16/2022 03/16/2023 1 1 [facility] for referral (narrative)* Outpatient Procedure (Routine) - Closed Specialty Diagnoses / Procedures Referred By Contac t Referred To Contact [facility] [place] Diagnoses Essential hypertension Procedures ECG COMPLETE ECG ROUTINE ECG W/LEAST 12 LDS W/I&R Uriel Paredes DO [address] [place] [id number] [facility] [address] [address] Referral ID Status Reason Start Date Expiration Date V isits Requested Visits Authorized [id number] Closed Auto-Generate d Referral 01/12/2023 01/12/2024 1 1 [facility] for referral (narrative)* Consultation (Routine) - Closed Specialty Diagnoses / Procedures Referred By Contact Referred To Contact Cardiac Rehabilitation / Cardiology Diagnoses Stented coronary artery Procedures ME OFFICE/OUTPATIENT NEW HIGH MDM 60 MINUTES Elisa Goldstein APRN - CNP [address] [place] [address] [facility] [address] [place] [address] Referral ID Status Reason Start Date Expiration Date V isits Requested Visits Authorized [id number] Closed Specialty Services Required 09/28/2023 09/27/2024 1 1 [facility] for referral (narrative)No reason for referral information availableWMercy Health [facility] Work Phone: Summary Purpose Family History No Family History Records Found Relationship Condition Age at Onset Recorded Date/T mimi mother Diabetes mellitus Unknown father Cerebrovascular accident (CVA) Unknown Relationship Condition Age at Onset Recorded Date/T mimi mother Diabetes mellitus Unknown father Cerebrovascular accident (CVA) Unknown brother Alcoholism Unknown sister Malignant neoplasm of breast Unknown Advance Directives No Advanced Directives Records Found Advance Directive Response Recorded Date/ Time Living Will No April 01 11:28am Power of Insurance Biller No April 01, 2023 11:28am Advance Directive Response Recorded Date/ Time Living Will No April 27, 023 12:18pm Power of Insurance Biller No April 27, 2023 12:18pm Advance Directive Response Recorded Date/ Time Living Will No April 27, 023 1:28pm Power of Insurance Biller No April 27, 2023 1:28pm Advance Directive Response Recorded Date/ Time Living Will No September 23, 2023 11:32am Power of Insurance Biller No September 22 11:32am Latest Code Status on File Code Status Date Activated Date Inactivated Comments Full Code 09/25/2023 1:47 PM 10/05/2023 8:07 PM Code Status History Code Status Date Activated Date Inactivated Comments Full Code 09/25/2023 1:45 PM 09/25/2023 1:47 PM Latest Code Status on File Code Status Date Activated Date Inactivated Comments Full Code 09/25/2023 1:47 PM 10/05/2023 8:07 PM Code Status History Code Status Date Activated Date Inactivated Comments Full Code 09/25/2023 1:45 PM 09/25/2023 1:47 PM Advance Directive Response Recorded Date/ Time Living Will No October 11, 2023 2:34pm Power of Insurance Biller No October 10 2:34pm Advance Directive Response Recorded Date/ Time Living Will No October 11, 2023 2:34pm Do you have a Healthcare Power of Insurance Biller? No October 11, 2023 2:34pm Living Will No June 23 7:32pm Do you have a Healthcare Power of Insurance Biller? No June 23, 2024 7:32pm Chief Complaint and Reason for Visit Chief Complaint right arm swelling/r edness Chief Complaint right arm swelling/r edness STROKE S/P TNK STROKE S/P TNK Reason for Visit Acute ischemic strok e Acute stroke due to ischemia Elevated blood-pressure reading, without diagnosis of hypertension Elevated troponin I level Frequent ventricular premature beats Hx of valvular heart disease Hypercholesterolemia Sinus tachycardia by electrocardiogram Chief Complaint right arm swelling/r edness STROKE S/P TNK STROKE S/P TNK STROKE S/P TNK STROKE S/P TNK STROKE S/P TNK STROKE S/P TNK STROKE S/P TNK S/P [facility] 04/29 E ORDERS Reason for Visit Acute stroke due to ischemia Elevated blood-pressure reading, without diagnosis of hypertension Elevated troponin I level Frequent ventricular premature beats Hx of valvular heart disease Hypercholesterolemia Sinus tachycardia by electrocardiogram Acute ischemic stroke Acute stroke due to ischemia Carotid artery stenosis Chest pain CHRISTIANSEN (dyspnea on exertion) Hypercholesterolemia Chief Complaint right arm swelling/r edness STROKE S/P TNK STROKE S/P TNK STROKE S/P TNK STROKE S/P TNK STROKE S/P TNK STROKE S/P TNK STROKE S/P TNK STROKE, NAGAJOTHI TO READ S/P [facility] 04/29 E ORDERS DIZZINESS AND GIDDINESS Amb Documentation 6-8 wk fu CHEST PAIN UNSPECIFIED CHEST PAIN UNSPECIFIED Amb Documentation Reason for Visit Acute stroke due to ischemia Elevated blood-pressure reading, without diagnosis of hypertension Elevated troponin I level Frequent ventricular premature beats Hx of valvular heart disease Hypercholesterolemia Sinus tachycardia by electrocardiogram Acute ischemic stroke Acute stroke due to ischemia Carotid artery stenosis Chest pain CHRISTIANSEN (dyspnea on exertion) Hypercholesterolemia Acute stroke due to ischemia CAD (coronary artery disease) Carotid artery stenosis Hypercholesterolemia Chief Complaint 6-8 wk fu CHEST PAIN UNSPECIFIED CHEST PAIN UNSPECIFIED Amb Documentation NSTEMI NSTEMI NSTEMI NSTEMI NSTEMI Reason for Visit Acute stroke due to ischemia CAD (coronary artery disease) Carotid artery stenosis Hypercholesterolemia Acute hypoxic respiratory failure CAD (coronary artery disease) Dyslipidemia Edema of left lower extremity Heart failure with reduced ejection fraction History of CVA (cerebrovascular accident) NSTEMI, initial episode of care Acute on chronic anemia Hypertension Chief Complaint NSTEMI NSTEMI NSTEMI NSTEMI NSTEMI NSTEMI NSTEMI/AFIB RVR NSTEMI/AFIB RVR PREOP Amb Documentation Reason for Visit CAD (coronary artery disease) Edema of left lower extremity Heart failure with reduced ejection fraction NSTEMI, initial episode of care Acute on chronic anemia Hypertension Acute hypoxic respiratory failure Acute HFrEF (heart failure with reduced ejection fraction) Atrial fibrillation CAD (coronary artery disease) Debility Hyperlipidemia Stenosis of right carotid artery Stroke Hypertension Insomnia NSTEMI (non-ST elevated myocardial infarction) Pleural effusion, left Chief Complaint Admit Date CHEST PAIN June 23, 2024 4: 19pm ELEVATED TROPONIN June 23, 2024 4: 56pm ELEVATED TROPONIN June 24, 2024 9: 00am ELEVATED TROPONIN June 24, 2024 9: 30am ELEVATED TROPONIN June 25, 2024 8: 01am ELEVATED TROPONIN June 25, 2024 8: 07am 6 m fu June 27, 2024 1 0:42am CHF, DYSPNEA August 08, 2024 8:52am 7-8 WK FU August 18, 2024 9:54 am REDUCED EF August 26, 2024 6:3 7am REDUCED EF August 26, 2024 1:3 3pm Reason for Visit Admit Date CAD (coronary artery disease) June 4:56pm Heart failure with reduced ejection frac tion June 23, 2024 4:56pm Hypercholesterolemia June 23, 2024 4 :56pm penitentiary current use of anticoagulant t herapy June 23, 2024 4:56pm Acute HFrEF (heart failure with reduced ejection fraction) June 23, 2024 4:56pm Atrial fibrillation June 23, 2024 4: 56pm Stented coronary artery June 23 4:56pm Accidental poisoning by carbon monoxide June 23, 2024 4:56pm Atrial fibrillation with rapid ventricul ar response June 23, 2024 4:56pm Elevated troponin June 23, 2024 4: 56pm Acute HFrEF (heart failure with reduced ejection fraction) June 27, 2024 10:42am Atrial fibrillation June 27, 2024 1 0:42am Frequent ventricular premature beats [facility] 2024 10:42am Stented coronary artery June 27 10:42am Acute HFrEF (heart failure with reduced ejection fraction) August 18, 2024 9:54am Atrial fibrillation August 18, 2024 9:54 am Frequent ventricular premature beats [facility] 2024 9:54am Stented coronary artery August 18, 2024 9:54am Chief Complaint Admit Date CHF, DYSPNEA August 08, 2024 8:52am 7-8 WK FU August 18, 2024 9:54 am REDUCED EF August 26, 2024 6:3 7am REDUCED EF August 26, 2024 1:3 3pm 1-2 M FU November 05, 2024 8:31a m Reason for Visit Admit Date Acute HFrEF (heart failure with reduced ejection fraction) August 18, 2024 9:54am Atrial fibrillation August 18, 2024 9:54 am Frequent ventricular premature beats [facility] 2024 9:54am Stented coronary artery August 18, 2024 9:54am Acute HFrEF (heart failure with reduced ejection fraction) November 05, 2024 8:31am Atrial fibrillation November 05, 2024 8:31a m Frequent ventricular premature beats November 05, 2024 8:31am Stented coronary artery November 05, 2024 8 :31am Chief Complaint Admit Date 1-2 M FU November 05, 2024 8:31a m AFIB February 05, 2025 7: 51am EST NEW PT - [facility] SENT February 10, 2025 9:45am Reason for Visit Admit Date Atrial fibrillation November 05, 2024 8:31a m Frequent ventricular premature beats November 05, 2024 8:31am Stented coronary artery November 05, 2024 8 :31am Acute HFrEF (heart failure with reduced ejection fraction) November 05, 2024 8:31am BPH (benign prostatic hyperplasia) Augus t 2024 9:45am Heart failure with reduced ejection frac tion February 10, 2025 9:45am Stented coronary artery February 10 9:45am Establishing care with new doctormadeline for February 10, 2025 9:45am CKD (chronic kidney disease) stage 3, GF R 30-59 ml/min February 10, 2025 9:45am Essential hypertension February 10, 2025 9:45am Reason for Visit Admit Date Atrial fibrillation November 05, 2024 8:31a m Frequent ventricular premature beats November 05, 2024 8:31am Stented coronary artery November 05, 2024 8 :31am Acute HFrEF (heart failure with reduced ejection fraction) November 05, 2024 8:31am BPH (benign prostatic hyperplasia) Augus t 2024 9:45am Heart failure with reduced ejection frac tion February 10, 2025 9:45am Stented coronary artery February 10 9:45am Scab February 10, 2025 9: 45am Screening for depression February 10 9:45am Immunization declined February 10, 2025 9:45am Screening for colon cancer February 10, 2025 9:45am Cerumen impaction February 10, 2025 9: 45am Establishing care with new doctormadeline for February 10, 2025 9:45am CKD (chronic kidney disease) stage 3, GF R 30-59 ml/min February 10, 2025 9:45am Essential hypertension February 10, 2025 9:45am Iron deficiency anemia February 10, 2025 9:45am Paroxysmal atrial fibrillation February 102024 9:45am GERD (gastroesophageal reflux disease) A ugust 2024 9:45am History of CVA (cerebrovascular accident ) February 10, 2025 9:45am Chief Complaint Admit Date 1-2 M FU November 05, 2024 8:31a m AFIB February 05, 2025 7: 51am Atrial fibrillation February 05, 2025 8: 11am EST NEW PT - [facility] SENT February 10, 2025 9:45am Congestive heart failure February 27, 2025 2:53pm Reason for Visit Admit Date Atrial fibrillation November 05, 2024 8:31a m Frequent ventricular premature beats November 05, 2024 8:31am Stented coronary artery November 05, 2024 8 :31am Acute HFrEF (heart failure w ith reduced ejection fraction) November 05, 2024 8:31am BPH (benign prostatic hyperplasia) Augus t 2024 9:45am Heart failure with reduced ejection frac tion February 10, 2025 9:45am Stented coronary artery February 10 9:45am Scab February 10, 2025 9: 45am Screening for depression February 10 9:45am Immunization declined February 10, 2025 9:45am Screening for colon cancer February 10, 2025 9:45am Cerumen impaction February 10, 2025 9: 45am Establishing care with new doctormadeline nter for February 10, 2025 9:45am CKD (chronic kidney disease) stage 3, GF R 30-59 ml/min February 10, 2025 9:45am Essential hypertension February 10, 2025 9:45am Iron deficiency anemia February 10, 2025 9:45am Paroxysmal atrial fibrillation February 102024 9:45am GERD (gastroesophageal reflux disease) A ugust 2024 9:45am History of CVA (cerebrovascular accident ) February 10, 2025 9:45am Bradycardia February 27, 2025 2:53pm Heart failure with reduced ejection frac tion February 27, 2025 2:53pm Atrial fibrillation February 27, 2025 2:53pm Congestive heart failure February 27, 2025 2:53pm Additional Source Comments (unrecognized sect ion and content) No Status Records FoundNo Status Records FoundNo Status Records FoundNo Status Records FoundNo Status Records FoundNo Status Records FoundNo Status Records Found INFORMATION SOURCE (unrecogn ized section and content) DATE CREATED AUTHOR 05/05/2019 [facility] [place] DATE CREATED AUTHOR AUTHOR'S ORGANIZ ATION 01/27/2023 [facility] DATE CREATED AUTHOR AUTHOR'S ORGANIZ ATION 11/11/2023 [facility] DATE CREATED AUTHOR AUTHOR'S ORGANIZ ATION 01/29/2024 [facility] DATE CREATED AUTHOR AUTHOR'S ORGANIZ ATION 05/08/2024 [facility] DATE CREATED AUTHOR AUTHOR'S ORGANIZ ATION 04/28/2025 [facility] DATE CREATED AUTHOR AUTHOR'S ORGANIZ ATION [facility] Source Comments (unrecognize d section and content) In the event this informatio n is protected by the Federal Confidentiality of Alcohol and Drug Abuse Patient Records regulations: The Federal rules restrict any use of the information to criminally investigate or prosecute any alcohol or drug abuse patient.[facility] the event this information is protected by the Federal Confidentiality of Alcohol and Drug Abuse Patient Records regulations: The Federal rules restrict any use of the information to criminally investigate or prosecute any alcohol or drug abuse patient.[facility] the event this information is protected by the Federal Confidentiality of Alcohol and Drug Abuse Patient Records regulations: The Federal rules restrict any use of the information to criminally investigate or prosecute any alcohol or drug abuse patient.[facility] the event this information is protected by the Federal Confidentiality of Alcohol and Drug Abuse Patient Records regulations: The Federal rules restrict any use of the information to criminally investigate or prosecute any alcohol or drug abuse patient.[facility] the event this information is protected by the Federal Confidentiality of Alcohol and Drug Abuse Patient Records regulations: The Federal rules restrict any use of the information to criminally investigate or prosecute any alcohol or drug abuse patient.[facility] the event this information is protected by the Federal Confidentiality of Alcohol and Drug Abuse Patient Records regulations: The Federal rules restrict any use of the information to criminally investigate or prosecute any alcohol or drug abuse patient.[facility] the event this information is protected by the Federal Confidentiality of Alcohol and Drug Abuse Patient Records regulations: The Federal rules restrict any use of the information to criminally investigate or prosecute any alcohol or drug abuse patient.[facility] the event this information is protected by the Federal Confidentiality of Alcohol and Drug Abuse Patient Records regulations: The Federal rules restrict any use of the information to criminally investigate or prosecute any alcohol or drug abuse patient.[facility] the event this information is protected by the Federal Confidentiality of Alcohol and Drug Abuse Patient Records regulations: The Federal rules restrict any use of the information to criminally investigate or prosecute any alcohol or drug abuse patient.[facility] the event this information is protected by the Federal Confidentiality of Alcohol and Drug Abuse Patient Records regulations: The Federal rules restrict any use of the information to criminally investigate or prosecute any alcohol or drug abuse patient.[facility] Reason for Visit (unrecogniz ed section and content) Reason Comments Refill Request Reason Comments Follow Up Reason Onset Date Comments Refill Request 06/15/2022 Reason Comments Musculoskeletal Problem Left leg pain no injury pain x 1 week Reason Comments Established Patient Follow-Up Dizziness, HTN, CAD Specialty Diagnoses / Procedures Referred By Contbecky t Referred To Contact Diagnoses Accelerating Angina Procedures - Amos Nichole MD [address] [address] Ach [address]c Cv [address] [address] Referral ID Status Reason Start Date Expiration Date Visits Re quested Visits Authorized [id number] 1 1 Reason Comments Cough Cough, nasal congest ion and drainage x 2 weeks Care Teams (unrecognized sec tion and content) Team Status: Active Member Role Status Dates No Primary Care Physician Primary Care Provider Active Team Status: Inactive Member Role Status Dates No Primary Care Physician Primary Care Provider Active Start: August 08, 2024 End: August 08, 2024 Vidal Banda RESIDENTIAL PROGRAM COORDINATOR, RESIDENTIAL PROGRAM COORDINATOR-C Attending Provider Active S tart: August 08, 2024 End: August 08, 2024 Vidal H Roof RESIDENTIAL PROGRAM COORDINATOR, RESIDENTIAL PROGRAM COORDINATOR-C Referring Provider Active S tart: August 08, 2024 End: August 08, 2024 Team Status: Active Member Role Status Dates No Primary Care Physician Primary Care Provider Active Start: August 08, 2024 Dr. Ro Kendrick MD Attending Provider Active Start: August 08, 2024 Team Status: Inactive Member Role Status Dates No Primary Care Physician Primary Care Provider Active Start: August 18, 2024 End: August 18, 2024 No Primary Care Physician Referring Provider Active Start: August 18, 2024 End: August 18, 2024 Vidal H Solo RESIDENTIAL PROGRAM COORDINATOR, RESIDENTIAL PROGRAM COORDINATOR-C Attending Provider Active S tart: August 18, 2024 End: August 18, 2024 Team Status: Inactive Member Role Status Dates No Primary Care Physician Primary Care Provider Active Start: August 26, 2024 End: August 26, 2024 Vidal Banda RESIDENTIAL PROGRAM COORDINATOR, RESIDENTIAL PROGRAM COORDINATOR-C Attending Provider Active S tart: August 26, 2024 End: August 26, 2024 Vidal H Roof RESIDENTIAL PROGRAM COORDINATOR, RESIDENTIAL PROGRAM COORDINATOR-C Referring Provider Active S tart: August 26, 2024 End: August 26, 2024 Team Status: Active Member Role Status Dates No Primary Care Physician Primary Care Provider Active Start: August 26, 2024 Vidal H Solo RESIDENTIAL PROGRAM COORDINATOR, RESIDENTIAL PROGRAM COORDINATOR-C Referring Provider Active S tart: August 26, 2024 Vidal Banda RESIDENTIAL PROGRAM COORDINATOR, RESIDENTIAL PROGRAM COORDINATOR-C Other Provider Active Start : August 26, 2024 Dr. Megan Chau MD Attending Provider Activ e Start: August 26, 2024 Team Status: Inactive Member Role Status Dates No Primary Care Physician Primary Care Provider Active Start: November 05, 2024 End: November 05, 2024 No Primary Care Physician Referring Provider Active Start: November 05, 2024 End: November 05, 2024 Vidal Banda RESIDENTIAL PROGRAM COORDINATOR, RESIDENTIAL PROGRAM COORDINATOR-C Attending Provider Active S tart: November 05, 2024 End: November 05, 2024 Radiologic Technology Teacher Relationship Specialty Start Date End Date Iwona Stewart MD PCP - General Family Practice 07/16/19 Radiologic Technology Teacher Relationship Specialty Start Date End Date wIona Stewart MD PCP - General Family Practice 07/16/19 Radiologic Technology Teacher Relationship Specialty Start Date End Date Iwona Stewart MD PCP - General Family Medicine 07/16/19 Radiologic Technology Teacher Relationship Specialty Start Date End Date Iwona Stewart MD PCP - General Family Medicine 07/16/19 Radiologic Technology Teacher Relationship Specialty Start Date End Date Iwona Stewart MD PCP - General Family Medicine 07/16/19 Radiologic Technology Teacher Relationship Specialty Start Date End Date Iwona Stewart MD PCP - General Family Medicine 07/16/19 Radiologic Technology Teacher Relationship Specialty Start Date End Date Iwona Stewart MD PCP - General Family Medicine 07/16/19 Radiologic Technology Teacher Relationship Specialty Start Date End Date Iwona Stewart MD PCP - General Family Medicine 07/16/19 Team Status: Active Member Role Status Dates Dr. Iwona Stewart MD Family Provider Active Dr. Iwona Stewart MD Primary Care Provider Active Team Status: Inactive Member Role Status Dates Dr. Iwona Stewart MD Primary Care Provider Active Dr. Michael Hogan MD Emergency Provider Active Team Status: Active Member Role Status Dates Dr. Iwona Stewart MD Primary Care Provider Active Dr. Isai Hernandez MD Emergency Provider Active Dr. Sean Ayala MD Admit Provider, Other Provider Active Dr. Rodney Brown MD Attending Provider Active Team Status: Inactive Member Role Status Dates Dr. Iwona Stewart MD Primary Care Provider Active Dr. Michael Hogan MD Attending Provider, Emergency Provider Active Team Status: Active Member Role Status Dates Dr. Iwona Stewart MD Primary Care Provider Active Dr. Isai Hernandez MD Emergency Provider Active Dr. Sean Ayala MD Admit Provider, Attending Provi jesús Active Team Status: Active Member Role Status Dates Dr. Iwona Stewart MD Primary Care Provider Active Dr. Isai Hernandez MD Emergency Provider Active Dr. Sean Ayala MD Admit Provider, A ttending Provider, Other Provider Active Dr. Megan Chau MD Other Provider Active Dr. Donnell Guevara MD Other Provider Active Dr. Meek Coombs , Other Provider Active Dr. Rodney Brown MD Other Provider Active Dr. Jose Peña MD Other Provider Active Dr. Claude Richardson MD Other Provider Active Rosa Hunt RESIDENTIAL PROGRAM COORDINATOR, RESIDENTIAL PROGRAM COORDINATOR-C Other Provider Active Team Status: Active Member Role Status Dates Dr. Iwona Stewart MD Primary Care Provider Active Dr. Megan Chau MD Attending Provider Activ e Dr. Sean Ayala MD Referring Provider Active Team Status: Active Member Role Status Dates Dr. Iwona Stewart MD Primary Care Provider Active Dr. Isai Hernandez MD Emergency Provider Active Dr. Sean Ayala MD Admit Provider, Other Provider Active Dr. Megan Chau MD Other Provider Active Dr. Donnell Guevara MD Other Provider Active Dr. Meek Coombs , Other Provider Active Dr. Rodney Brown MD Attending Provider, Other Provi jesús Active Dr. Jose Peña MD Other Provider Active Dr. Claude Richardson MD Other Provider Active Rosa Hunt RESIDENTIAL PROGRAM COORDINATOR, RESIDENTIAL PROGRAM COORDINATOR-C Other Provider Active Team Status: Active Member Role Status Dates Dr. Iwona Stewart MD Primary Care Provider Active Dr. Isai Hernandez MD Emergency Provider Active Dr. Sean Ayala MD Admit Provider, A ttending Provider, Other Provider Active Dr. Donnell Guevara MD Other Provider Active Dr. Meek Coombs , Other Provider Active Dr. Rodney Brown MD Other Provider Active Dr. Jose Peña MD Other Provider Active Dr. Claude Richardson MD Other Provider Active Rosa Hunt RESIDENTIAL PROGRAM COORDINATOR, RESIDENTIAL PROGRAM COORDINATOR-C Other Provider Active Dr. Megan Chau MD Other Provider Active Team Status: Active Member Role Status Dates Dr. Iwona Stewart MD Primary Care Provider Active Dr. Isai Hernandez MD Emergency Provider Active Dr. Sean Ayala MD Admit Provider, R eferring Provider, Other Provider Active Dr. Donnell Guevara MD Other Provider Active Dr. Meek Coombs DO Other Provider Active Dr. Rodney Brown MD Other Provider Active Dr. Jose Peña MD Other Provider Active Dr. Claude Richardson MD Other Provider Active Rosa Hunt RESIDENTIAL PROGRAM COORDINATOR, RESIDENTIAL PROGRAM COORDINATOR-C Other Provider Active Dr. Megan Chau MD Attending Provider, Othe r Provider Active Team Status: Inactive Member Role Status Dates Dr. Iwona Stewart MD Primary Care Provider, Referrin g Provider Active Petra Villegas RESIDENTIAL PROGRAM COORDINATOR, RESIDENTIAL PROGRAM COORDINATOR-C Attending Provider Active Team Status: Inactive Member Role Status Dates Dr. Iwona Stewart MD Primary Care Provider Active Petra Villegas RESIDENTIAL PROGRAM COORDINATOR, RESIDENTIAL PROGRAM COORDINATOR-C Attending Provider, Referring P rovider Active Team Status: Inactive Member Role Status Dates Dr. Iwona Stewart MD Primary Care Provider Active Dr. Isai Hernandez MD Emergency Provider Active Dr. Sean Ayala MD Admit Provider, Attending Provi jesús Active Dr. Donnell Guevara MD Other Provider Active Dr. Meek Coombs , Other Provider Active Dr. Rodney Brown MD Other Provider Active Dr. Jose Peña MD Other Provider Active Dr. Claude Richardson MD Other Provider Active Rosa Hunt RESIDENTIAL PROGRAM COORDINATOR, RESIDENTIAL PROGRAM COORDINATOR-C Other Provider Active Dr. Megan Chau MD Other Provider Active Team Status: Active Member Role Status Dates Dr. Iwona Stewart MD Primary Care Provider Active Dr. Isai Hernandez MD Emergency Provider Active Dr. Sean Ayala MD Admit Provider, R eferring Provider, Other Provider Active Dr. Rodney Brown MD Attending Provider Active Team Status: Active Member Role Status Dates Dr. Iwona Stewart MD Primary Care Provider Active Dr. Isai Hernandez MD Emergency Provider Active Dr. Sean Ayala MD Admit Provider, R eferring Provider, Other Provider Active Dr. Megan Chau MD Other Provider Active Dr. Donnell Guevara MD Other Provider Active Dr. Meek Coombs DO Other Provider Active Dr. Rodney Brown MD Attending Provider, Other Provi jesús Active Dr. Jose Peña MD Other Provider Active Dr. Claude Richardson MD Other Provider Active Rosa Hunt RESIDENTIAL PROGRAM COORDINATOR, RESIDENTIAL PROGRAM COORDINATOR-C Other Provider Active Team Status: Active Member Role Status Dates Dr. Iwona Stewart MD Primary Care Provider Active Dr. Mark Powers MD Attending Provider Active Petra Villegas RESIDENTIAL PROGRAM COORDINATOR, RESIDENTIAL PROGRAM COORDINATOR-C Referring Provider Active Team Status: Active Member Role Status Dates Dr. Iwona Stewart MD Primary Care Provider Active Petra Villegas RESIDENTIAL PROGRAM COORDINATOR, RESIDENTIAL PROGRAM COORDINATOR-C Attending Provider Active Team Status: Active Member Role Status Dates Dr. Iwona Stewart MD Primary Care Provider Active Petra Villegas RESIDENTIAL PROGRAM COORDINATOR, RESIDENTIAL PROGRAM COORDINATOR-C Referring Provider, Other Provi jesús Active Dr. Don Parker MD Attending Provider Active Team Status: Active Member Role Status Dates Dr. Sean Ayala MD Attending Provider, Referring P rovider Active Dr. Iwona Stewart MD Primary Care Provider Active Team Status: Active Member Role Status Dates Dr. Iwona Stewart MD Primary Care Provider Active Dr. Chet Edmonds MD Admit Provider, Other Provider A ctive Dr. Faizan Jackman MD Other Provider Active Dr. Bret Green , Attending Provider, Other Provider Active Team Status: Active Member Role Status Dates Dr. Iwona Stewart MD Primary Care Provider Active Dr. Chet Edmonds MD Admit Provider, Other Provider A ctive Dr. Faizan Jackman MD Attending Provider, Other Provid er Active Dr. Bret Green , DO Other Provider Active Team Status: Active Member Role Status Dates Dr. Iwona Stewart MD Primary Care Provider Active Dr. Don Parker MD Attending Provider Active Team Status: Active Member Role Status Dates Dr. Iwona Stewart MD Primary Care Provider Active Dr. Chet Edmonds MD Admit Provider, Other Provider A ctive Dr. Faizan Jackman MD Other Provider Active Dr. Natalia Garcia , Attending Provider, Other Provide r Active Dr. Bret Green , DO Other Provider Active Team Status: Active Member Role Status Dates Dr. Iwona Stewart MD Primary Care Provider Active Dr. Chet Edmonds MD Admit Provider, Other Provider A ctive Dr. Faizan Jackman MD Other Provider Active Dr. Natalia Garcia , DO Other Provider Active Dr. Bret Green , DO Other Provider Active Dr. Gregory Kruse MD Attending Provider Active Team Status: Inactive Member Role Status Dates Dr. Iwona Stewart MD Primary Care Provider Active Dr. Chet Edmonds MD Admit Provider, Other Provider A ctive Dr. Faizan Jackman MD Other Provider Active Dr. Natalia Garcia DO Attending Provider Active Dr. Bret Green DO Other Provider Active Radiologic Technology Teacher Relationship Specialty Start Date End Date Iwona Stewart [address] [place] [address] PCP - [facility] Family Medicine 09/25/23 Radiologic Technology Teacher Relationship Specialty Start Date End Date Iwona Stewart [address] [place] [id number] PCP - [facility] Medicine 09/25/23 Team Status: Active Member Role Status Dates Dr. Iwona Stewart MD Primary Care Provider Active Dr. Don Parker MD Attending Provider, Referring Pro vider Active Team Status: Active Member Role Status Dates Dr. Iwona Stewart MD Primary Care Provider Active Dr. Mark Powers MD Attending Provider Active Dr. Faizan Jackman MD Referring Provider Active Team Status: Active Member Role Status Dates Dr. Iwona Stewart MD Primary Care Provider Active Dr. Faizan Jackman MD Attending Provider Active Team Status: Active Member Role Status Dates Dr. Iwona Stewart MD Primary Care Provider Active Dr. David Palmer MD Admit Provider, Re ferring Provider, Other Provider Active Dr. Jose Mckinney DO Attending Provider, Other Prov ider Active Team Status: Active Member Role Status Dates Dr. Iwona Stewart MD Primary Care Provider Active Dr. Jose Mckinney DO Attending Provider, Referring Provider Active Team Status: Active Member Role Status Dates Dr. Iwona Stewart MD Primary Care Provider Active Dr. Don Parker MD Attending Provider Active Dr. Jose Mckinney DO Referring Provider Active Team Status: Active Member Role Status Dates Dr. Iwona Stewart MD Primary Care Provider Active Petra Hdez Attending Provider Active Team Status: Active Member Role Status Dates Dr. Iwona Stewart MD Primary Care Provider Active Dr. Jose Mckinney DO Attending Provider, Other Prov ider Active Team Status: Inactive Member Role Status Dates Dr. Iwona Stewart MD Primary Care Provider Active Dr. Chet Edmonds MD Other Provider Active Dr. Faizan Jackman MD Other Provider Active Dr. Bret Green DO Admit Provider, Other Pro vider Active Dr. Natalia Garcia DO Attending Provider Active Team Status: Inactive Member Role Status Dates Dr. Iwona Stewart MD Primary Care Provider Active Dr. David Palmer MD Admit Provider, At tending Provider, Referring Provider Active Dr. Jose Mckinney DO Other Provider Active Team Status: Active Member Role Status Dates Dr. Mark Go DO Emergency Provider Active Start: June 23, 2024 No Primary Care Physician Primary Care Provider Active Start: June 23, 2024 Dr. Sarah Perrin MD Attending Provider Active Start: June 23, 2024 Team Status: Inactive Member Role Status Dates Dr. Mark Go DO Referring Provider Active Start: June 23, 2024 End: June 25, 2024 Dr. Mark Go DO Emergency Provider Active Start: June 23, 2024 End: June 25, 2024 No Primary Care Physician Primary Care Provider Active Start: June 23, 2024 End: June 25, 2024 Dr. Sarah Perrin MD Admit Provider Active St art: June 23, 2024 End: June 25, 2024 Dr. Sarah Perrin MD Other Provider Active St art: June 23, 2024 End: June 25, 2024 Dr. Gregory Kruse MD Other Provider Active St art: June 23, 2024 End: June 25, 2024 Dr. Chet Edmonds MD Attending Provider Active Start: June 23, 2024 End: June 25, 2024 Team Status: Active Member Role Status Dates No Primary Care Physician Primary Care Provider Active Start: June 24, 2024 Dr. Don Parker MD Attending Provider Active S tart: June 24, 2024 Team Status: Active Member Role Status Dates Dr. Mark Go DO Emergency Provider Active Start: June 24, 2024 No Primary Care Physician Primary Care Provider Active Start: June 24, 2024 Dr. Sarah Perrin MD Admit Provider Active St art: June 24, 2024 Dr. Sarah Perrin MD Other Provider Active St art: June 24, 2024 Dr. Gregory Kruse MD Other Provider Active St art: June 24, 2024 Dr. Chet Edmonds MD Attending Provider Active Start: June 24, 2024 Dr. Chet Edmonds MD Other Provider Active Star t: June 24, 2024 Team Status: Active Member Role Status Dates Dr. Mark Go DO Referring Provider Active Start: June 24, 2024 Dr. Mark Go DO Emergency Provider Active Start: June 24, 2024 No Primary Care Physician Primary Care Provider Active Start: June 24, 2024 Dr. Sarah Perrin MD Admit Provider Active St art: June 24, 2024 Dr. Sarah Perrin MD Other Provider Active St art: June 24, 2024 Dr. Gregory rKuse MD Attending Provider Active Start: June 24, 2024 Dr. Gregory Kruse MD Other Provider Active St art: June 24, 2024 Dr. Chet Edmonds MD Other Provider Active Star t: June 24, 2024 Team Status: Active Member Role Status Dates Dr. Mark Go DO Emergency Provider Active Start: June 25, 2024 No Primary Care Physician Primary Care Provider Active Start: June 25, 2024 Dr. Sarah Perrin MD Admit Provider Active St art: June 25, 2024 Dr. Sarah Perrin MD Other Provider Active St art: June 25, 2024 Dr. Gregory Kruse MD Other Provider Active St art: June 25, 2024 Dr. Chet Edmonds MD Attending Provider Active Start: June 25, 2024 Dr. Chet Edmonds MD Other Provider Active Star t: June 25, 2024 Team Status: Active Member Role Status Dates Dr. Mark Go DO Referring Provider Active Start: June 25, 2024 Dr. Mark Go DO Emergency Provider Active Start: June 25, 2024 No Primary Care Physician Primary Care Provider Active Start: June 25, 2024 Dr. Sarah Perrin MD Admit Provider Active St art: June 25, 2024 Dr. Sarah Perrin MD Other Provider Active St art: June 25, 2024 Dr. Gregory Kruse MD Attending Provider Active Start: June 25, 2024 Dr. Gregory Kruse MD Other Provider Active St art: June 25, 2024 Dr. Chet Edmonds MD Other Provider Active Star t: June 25, 2024 Team Status: Inactive Member Role Status Dates Dr. Iwona Stewart MD Referring Provider Active Start: June 27, 2024 End: June 27, 2024 Vidal Banda RESIDENTIAL PROGRAM COORDINATOR, RESIDENTIAL PROGRAM COORDINATOR-C Attending Provider Active S tart: June 27, 2024 End: June 27, 2024 No Primary Care Physician Primary Care Provider Active Start: June 27, 2024 End: June 27, 2024 Team Status: Active Member Role/Relationship Status Dates No Primary Care Physician Primary Care Provider Active Team Status: Inactive Member Role/Relationship Status Dates No Primary Care Physician Primary Care Provider Active Start: November 05, 2024 End: November 05, 2024 No Primary Care Physician Referring Provider Active Start: November 05, 2024 End: November 05, 2024 Vidal Banda RESIDENTIAL PROGRAM COORDINATOR, RESIDENTIAL PROGRAM COORDINATOR-C Attending Provider Active S tart: November 05, 2024 End: November 05, 2024 Team Status: Active Member Role/Relationship Status Dates No Primary Care Physician Primary Care Provider Active Start: February 05, 2025 Vidal Banda RESIDENTIAL PROGRAM COORDINATOR, RESIDENTIAL PROGRAM COORDINATOR-C Attending Provider Active S tart: February 05, 2025 Vidal Banda RESIDENTIAL PROGRAM COORDINATOR, RESIDENTIAL PROGRAM COORDINATOR-C Referring Provider Active S tart: February 05, 2025 Team Status: Inactive Member Role/Relationship Status Dates No Primary Care Physician Primary Care Provider Active Start: February 10, 2025 End: February 10, 2025 No Primary Care Physician Referring Provider Active Start: February 10, 2025 End: February 10, 2025 Dr. Chelsea Singh MD Attending Provider Active Start: February 10, 2025 End: February 10, 2025 Team Status: Inactive Member Role/Relationship Status Dates No Primary Care Physician Primary Care Provider Active Start: February 05, 2025 End: February 05, 2025 Vidal Banda RESIDENTIAL PROGRAM COORDINATOR, RESIDENTIAL PROGRAM COORDINATOR-C Attending Provider Active S tart: February 05, 2025 End: February 05, 2025 Vidal Banda RESIDENTIAL PROGRAM COORDINATOR, RESIDENTIAL PROGRAM COORDINATOR-C Referring Provider Active S tart: February 05, 2025 End: February 05, 2025 Team Status: Active Member Role/Relationship Status Dates Dr. Chelsea Singh MD Primary Care Provider Active Team Status: Active Member Role/Relationship Status Dates No Primary Care Physician Primary Care Provider Active Start: February 05, 2025 Dr. Don Parker MD Attending Provider Active S tart: February 05, 2025 Vidal Banda RESIDENTIAL PROGRAM COORDINATOR, RESIDENTIAL PROGRAM COORDINATOR-C Referring Provider Active S tart: February 05, 2025 Team Status: Inactive Member Role/Relationship Status Dates No Primary Care Physician Primary Care Provider Active Start: February 10, 2025 End: February 10, 2025 No Primary Care Physician Referring Provider Active Start: February 10, 2025 End: February 10, 2025 Dr. Chelsea Singh MD Attending Provider Active Start: February 10, 2025 End: February 10, 2025 Team Status: Inactive Member Role/Relationship Status Dates No Primary Care Physician Referring Provider Active Start: February 27, 2025 End: February 27, 2025 Dr. Augusto Lacey MD Attending Provider Active Start: February 27, 2025 End: February 27, 2025 Dr. Chelsea Singh MD Primary Care Provider Active Start: February 27, 2025 End: February 27, 2025 Care Team (unrecognized sect ion and content) Care Team Personnel Name: IWONA STEWART MD Position: P4 Physician - Primary Care Member Role: Primary Care Physician Address: Address: [address] [place] [id number] Care Team Related Persons Name: DANNI CRUZ Address: [address] [place] [phone] Goals (unrecognized section and content) Goals may be documented in a n alternate section Scheduled Active and Recently Administ ered Medications (unrecognized section and content) Medication Order 10/03/2023 10/04/2023 10/05/2023 amiodarone (Pacerone) tablet 400 mg 400 mg, Oral, 2 times daily, First dose (after last modification) on Sun09/28/23 at 1200, Until discharge home, then 400 mg daily x 1 month. 0828 (Given - Provider: Katie Aguilar RN)2025 (Given - Provider: Demetris Bethea RN) 0940 (Given - Provider: Jt Brewster)2034 (Given - Provider: Demetris Bethea RN) 0918 (Given - Provider: Kira Altamirano) apixaban (Eliquis) tablet 5 mg 5 mg, Oral, 2 times daily, First dose on Sun09/27/23 at 1315, Anticoagulant 0900 (Dose Auto Held - Provider: Ashleigh Morrison, PAINT TECHNICIAN - AIRPLANE FIRST OFFICER)1650 (Unheld by provider - Provider: Christopher Salcedo DO)2025 (Given - Provider: Demetris Bethea RN) 0941 (Given - Provider: Jt Brewster)2034 (Given - Provider: Demetris Bethea RN) 0918 (Given - Provider: Kira Altamirano) ascorbic acid (Vitamin C) tablet 500 mg 500 mg, Oral, Daily, First dose (after last modification) on Sun09/25/23 at 1400 0828 (Given - Provider: Katie Aguilar RN) 0940 (Given - Provider: Jt Brewster) 0918 (Given - Provider: Kira Altamirano) aspirin EC tablet 81 mg 81 mg, Oral, Daily, First dose on Sun09/25/23 at 1400, Do not crush, chew, or split. 0828 (Given - Provider: Katie Aguilar RN) 0941 (Given - Provider: Jt Brewster) 0918 (Given - Provider: Kira Altamirano) atorvastatin (Lipitor) tablet 40 mg 40 mg, Oral, Daily, First dose on Sun09/25/23 at 1400 0828 (Given - Provider: Katie Aguilar RN) 0941 (Given - Provider: Jt Brewster) 0918 (Given - Provider: Kira Altamirano) Calcium Carb-Cholecalciferol 500-5 MG-MCG per tablet 1 tablet 1 tablet, Oral, Daily, First dose on Sun10/03/23 at 1445 1802 (Given - Provider: Kim Miller RN) 0941 (Given - Provider: Jt Brewster) 0918 (Given - Provider: Kira Altamirano) clopidogrel (Plavix) tablet 75 mg 75 mg, Oral, Daily, First dose on Sun10/02/23 at 0900 0828 (Given - Provider: Katie Aguilar RN) 0942 (Given - Provider: Jt Brewster) 0919 (Given - Provider: Kira Altamirano) dapagliflozin (Farxiga) tablet 10 mg 10 mg, Oral, Daily, First dose on Sun10/04/23 at 1030, Indications: Heart Failure 1129 (Given - Provider: Ora Chin LPN) 0918 (Given - Provider: Kira Altamirano) metoprolol succinate XL (Toprol-XL) 24 hr tablet 50 mg 50 mg, Oral, Nightly, First dose (after last modification) on Sun10/04/23 at 2100, Hold for HR < 60 Do not crush or chew. 2034 (Given - Provider: Demetris Bethea, LEVI) pantoprazole (ProtoNix) EC tablet 40 mg 40 mg, Oral, Daily before breakfast, First dose on Sun09/26/23 at 0600, Do not crush, chew, or split. 0607 (Given - Provider: Constance Lee RN) 0610 (Given - Provider: Demetris Bethea, RN) 0600 (Not Given - Provider: Demetris Bethea, LEVI - Reason: Medication not available) polyethylene glycol (PEG) 3350 (Miralax) packet 17 g 17 g, Oral, Daily, First dose (after last modification) on Sun09/28/23 at 0945, 1st line for treatment of constipation - give scheduled if no bowel movement in past 24 hours. 0900 (Not Given - Provider: Katie Aguilar RN - Reason: Patient/family refused) 0900 (Not Given - Provider: Jt Brewster - Reason: Patient/family refused) 0900 (Not Given - Provider: Kira Altamirano - Reason: Patient/family refused - Comment: LB 10/05/23) spironolactone (Aldactone) tablet 12.5 mg 12.5 mg, Oral, Daily, First dose (after last modification) on Sun10/03/23 at 1230, Hold SBP < 100 1222 (Given - Provider: Katie Aguilar RN) 0900 (Not Given - Provider: Jt Brewster - Reason: Order parameters not met) 0919 (Given - Provider: Kira Altamirano) torsemide (Demadex) tablet 10 mg (CANCELED) 10 mg, Oral, Daily, First dose (after last modification) on Sun10/03/23 at 1230 1222 (Given - Provider: Katie Aguilar RN) 0900 (Not Given - Provider: Ora Chin LPN - Reason: See Provider Order) PRN Medication Order 10/03/2023 10/04/2023 10/05/2023 acetaminophen (Tylenol) suppository 650 mg(Linked Group 1) 650 mg, Rectal, Every 6 hours PRN, mild pain (1-3), fever, For temp greater than 100.4 F (38 C), Starting on Sun09/25/23 at 1342, Administer if oral route cannot be used. Maximum dose of acetaminophen is 4000 mg from all sources in 24 hours. acetaminophen (Tylenol) tablet 650 mg(Linked Group 1) 650 mg, Oral, Every 6 hours PRN, mild pain (1-3), fever, For temp greater than 100.4 F (38 C), Starting on Sun09/25/23 at 1342, Maximum dose of acetaminophen is 4000 mg from all sources in 24 hours. ipratropium-albuterol (Duo-Neb) 0.5-2.5 mg/3 mL nebulizer solution 3 mL 3 mL, Nebulization, Every 8 hours PRN, wheezing, shortness of breath, Starting on Sun09/26/23 at 1617 melatonin tablet 10 mg 10 mg, Oral, Nightly PRN, sleep, Starting on Sun09/25/23 at 2128 naloxone (Narcan) injection 0.4 mg 0.4 mg, IntraVENous, Every 5 min PRN, opioid reversal, respiratory depression, Starting on Sun09/26/23 at 1550, +++ For RR <10, pinpoint pupils, over sedation for opioid reversal - MUST notify patient consumer marketer provider immediately after first dose, may give IM or SQ if no IV access +++ promethazine (Phenergan) tablet 12.5 mg 12.5 mg, Oral, Every 6 hours PRN, nausea, vomiting, Starting on 09/29/23 at 1530 Linked Groups Order Group 1: acetaminophen (Tylenol) tablet 650 mgJump to med 650 mg, Oral, Every 6 hours PRN, mild pain (1-3), fever, For temp greater than 100.4 F (38 C), Starting on Sun09/25/23 at 1342, Maximum dose of acetaminophen is 4000 mg from all sources in 24 hours. Or acetaminophen (Tylenol) suppository 650 mgJump to med 650 mg, Rectal, Every 6 hours PRN, mild pain (1-3), fever, For temp greater than 100.4 F (38 C), Starting on Sun09/25/23 at 1342, Administer if oral route cannot be used. Maximum dose of acetaminophen is 4000 mg from all sources in 24 hours. FOR RECORDS PERTAINING TO PATIENTS WHO ARE [...] BE BASED ON THE PRIMARY CLINICAL RECORDS. [facility] [facility]. provides no warranty or guarantee of the accuracy or completeness of information in this document.
[2025-05-15 09:07] LABS: Hematocrit 51.9 % (40-54); Hemoglobin 16.5 g/dL (13.0-16.5); Immature Granulocytes Count 0.050 X10^3/uL (0.0-0.0); Mean Corp Hgb Conc 31.8 g/dL (32-36); Mean Corpuscular Volume 100.6 fL (80-94); Mean Platelet Vol. 10.9 fl (6.2-12.0); NRBC Flagged by Analyzer 0 % (0-5); Platelet Count 173 K/mm3 (150-450); RBC Distribution Width CV 13.2 % (11.6-14.6); RBC Distribution Width SD 49.1 fl (35.1-43.9); Red Blood Count 5.16 M/mm3 (4.6-6.2); White Blood Count 8.1 K/mm3 (4.4-11.0)
[2025-05-15 09:44] LABS: AST(SGOT) 21 U/L (<=37); Alanine Aminotransfer ALT/SGPT 12 U/L (<=46); Albumin, Serum 3.9 g/dL (3.4-4.8); Alkaline Phosphatase 116 U/L (40-129); Anion Gap 10 (5-15); BUN 29 mg/dL (4-19); BUN/Creat Ratio 22.1 RATIO (10-20); Calcium,Total 9.1 mg/dL (7.6-11.0); Carbon Dioxide 26.2 mmol/L (21.0-32.0); Chloride 104 mmol/L (98-108); Ferritin 128 ng/mL (37-417); Globulin 2.7 g/dL (2.2-4.2); Glucose 122 mg/dL (70-99); Iron 86 ug/dL (65-175); Iron Binding Capacity,Total 284 ug/dL (250-450); Iron Binding Capacity,Unsat 198 ug/dL (228-428); PSA,Total- Diagnostic 4.49 ng/mL (0.00-4.00); Potassium 4.5 mmol/L (3.3-5.1); Vitamin D,25 Hydroxy 39.0 ng/mL (30-100)
[2025-05-15 12:40] LABS: Cholesterol 149 mg/dL (<=200); Low Density Lipoprotein Calc. 80 mg/dL; Triglycerides 110 mg/dL; Very Low Density Lipoprotein 22 mg/dL (5-40); cholesterol:hdl ratio screen 3.03
== END | disposition home or self-care (01) ==
LOC: LAB 08:33
PROVIDERS: PCP Internal Medicine; Referring Provider Nurse Practitioner Gerontology; Visit Provider Nurse Practitioner Gerontology
DX: I25.10 Atherosclerotic heart disease of native coronary artery without angina pectoris (principal); N18.30 Chronic kidney disease, stage 3 unspecified; D50.9 Iron deficiency anemia, unspecified; N40.1 Benign prostatic hyperplasia with lower urinary tract symptoms; Z79.899 Other long term (current) drug therapy; R35.0 Frequency of micturition
CPT/HCPCS: 36415; 80053; 80061; 82306; 82728; 83540; 83550; 84153; 84443; 85025

== ENCOUNTER 2025-05-21 11:17 | Observation (INO) | payer MEDICARE, SELFPAY ==
--- NOTE | 2025-05-07 11:25 | RAD_ITS ---
PROCEDURE: CHEST PA AND LATERAL 05/07/2025 REASON FOR EXAM: FOR ICD IMPLANT 05/21/25 TECHNIQUE: Procedure Code: RADCXR Modality: DX Procedure: CHEST PA AND LATERAL COMPARISON: 06/23/2024. FINDINGS: The heart is normal in size. The lungs are clear. No acute osseous abnormalities. RAD/Chest PA and Lateral IMPRESSION: NO ACUTE FINDINGS. Reading Location: [id number]
[2025-05-07 11:43] LABS: Mucous, Urine 0 SEEN /hpf (<or=2+); Red Blood Cells-Urine 0 SEEN /hpf (0-5)
[2025-05-07 12:10] LABS: Hematocrit 51.9 % (40-54); Hemoglobin 16.8 g/dL (13.0-16.5); Mean Corp Hgb Conc 32.4 g/dL (32-36); Mean Corpuscular Volume 98.3 fL (80-94); Mean Platelet Vol. 10.5 fl (6.2-12.0); Platelet Count 188 K/mm3 (150-450); RBC Distribution Width CV 12.9 % (11.6-14.6); RBC Distribution Width SD 46.5 fl (35.1-43.9); Red Blood Count 5.28 M/mm3 (4.6-6.2); White Blood Count 8.7 K/mm3 (4.4-11.0)
[2025-05-07 12:35] LABS: Prothrombin Time (Protime)PT. 15.8 SECONDS (11.7-14.9)
[2025-05-07 12:59] LABS: Pro- Brain NATRIURETIC PEPTIDE 5012 pg/mL (<=1800)
[2025-05-07 13:01] LABS: Anion Gap 11 (5-15); BUN 27 mg/dL (4-19); BUN/Creat Ratio 18.4 RATIO (10-20); Calcium,Total 8.9 mg/dL (7.6-11.0); Carbon Dioxide 27.0 mmol/L (21.0-32.0); Chloride 101 mmol/L (98-108); Glucose 99 mg/dL (70-99); Potassium 4.1 mmol/L (3.3-5.1)
[2025-05-07 13:28] LABS: Color, Urine Straw (Yellow); Glucose, Dipstick 1000 mg/dl (Normal); Ketone-Dipstick Negative (Negative); Leukocyte Esterase-Dipstick 100 /ul (Negative); Nitrite-Dipstick Negative (Negative); Occult Blood-Urine 10 /ul (Negative); Protein-Dipstick 15 mg/dl (Negative); Specific Gravity, Urine 1.010 (1.002-1.030); Urine Bilirubin Dipstick Negative (Negative)
[2025-05-07 13:41] LABS: Squamous Epithelial Cells - UA 0-5 SEEN /hpf (0-5)
[2025-05-20 10:25] VITALS: BMI 31.4
[2025-05-21] VITALS (11 sets, daily range): BP systolic 98–121; BP diastolic 48–88; PULSE 66–108; RESP 14–19; TEMP 36.6–36.7; O2SAT 95–99
--- NOTE | 2025-05-21 11:18 | RAD_ITS ---
PROCEDURE: CHEST 1 VIEW (PORTABLE) 05/21/2025 REASON FOR EXAM: DO WITHIN 2-4 HOURS OF PROCEDURE Left-sided dual-chamber pacemaker placement. TECHNIQUE: Frontal view of the chest. COMPARISON: May 07, 2025. FINDINGS: Hardware: A left-sided dual-chamber pacemaker has been placed. The electrodes are in good position. Heart: Mild cardiomegaly. Lungs: Blunting of the left costophrenic angle with mild left basilar atelectasis. No evidence of pneumothorax. 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 Prior hemiarthroplasty of the left shoulder. RAD/Chest 1 View (Portable) IMPRESSION: Left-sided dual-chamber pacemaker placement. Mild cardiomegaly. Blunting of the left costophrenic angle with increased markings at the left stef g base suggestive of atelectasis. No evidence of pneumothorax. Reading Location: [place] [id number]
--- NOTE | 2025-05-21 11:24 | EX.DEFIBPR_ITS ---
Defibrillator Procedure Note Defibrillator Procedure Note Procedure: Successful dual chamber ICD implantation. Defibrillation threshold testing Indication: Primary Prevention Sinus bradycardia Paroxysmal atrial fibrillation Ischemic Cardiomyopathy NYHA Class II LVEF 33% Findings: The patient was brought to the EP LAB in the fasting well-hydrated state and prepped and draped in the usual sterile fashion. Local anesthesia with 2% lidocaine was used to achieve a numbing effect in the LEFT pectoral region. In addition, conscious sedation with iv versed/morphine was administered. I was present with the patient for the duration of moderate sedation and supervised staff who had no other duties and monitored the patient for the entire procedure. Details of monitoring are stored in laboratory flow sheet. It was noted that the patient went into atrial flutter with sedation. An incision was made 2 fingerbreadths below the left clavicle and a pocket was made by blunt dissection. Bleeding vessels were coagulated using electrocautery. Using modified Seldinger technique, two guidewires was placed into the left axillary vein down to the low RA. Through a venous sheath the RV lead was passed into the RV apex. The active screw mechanism was extended. Adequate pacing and sensing thresholds were measured. Diaphragmatic stimulation was excluded with high output pacing. The introducer sheath was peeled away. Next using the second guidewire a introducer sheath was placed into the central circulation. Through the venous sheath an active-fixation right atrial lead was passed in the right atrium the active screw mechanism was deployed and the lead was attached to the myocardium. Adequate pacing and sensing thresholds were m easured. Diaphragmatic stimulation was excluded with high output pacing. The introducer sheath was peeled away. The leads were secured in the pocket using 0-Ethibond with initial suture tie made to the pectoralis muscle and fascia, followed by wrapping around and tying securely to the lead sleeves. In addition, a purse string suture was tied around the leads entry site with 2-0 Vicryl for hemostasis. The leads were connected to the dual chamber ICD pulse generator. The pocket was irrigated with antibiotic solution. The pulse generator was placed into the pocket with redundant lead allowed to form a amanda coil behind the pulse generator. The patient was made ready for defibrillation threshold testing with additional sedation. VF was induced with RMT shock. The device successfully detected VF and terminated VF with a 19 J shock. Also patient converted from atrial flutter into sinus rhythm. Post DFT testing it was noted that the atrial lead threshold had risen. Attempts to reposition atrial lead predominant successful due to tightness in the left subclavian vein. The atrial lead retaining sutures were removed and the lead itself was explanted from the pocket. A separate left axillary venous access was obtained and a 7 [employer] sheath was placed. Through this venous access atrial lead was repositioning into the atrium. Atrial threshold remained high at approximately 3 V at 0.4 ms. Sensing was excellent. The atrial lead was secured to the underlying fascia. The pocket was closed in 2 layers with 2-0 and 3-0 Vicryl for the subcutaneous and subcuticular layers respectively. Hemostasis was achieved with manual pressure. Upon closure no bleeding was noted. A sterile dressing was applied. The patient was recovered and sent to their room in stable condition. Complications: none. Specimens: none. Estimated blood loss: 10mL. IMPLANTED DEVICES ICD [address] [address] MRI IS1 DF4 Model # Serial # Concrete Rod Buster Implant Date Implant Site Status Is Primary [id number] [employer] 05/21/2025 L Pect SQ Implanted Yes LEADS AND ADAPTERS Chamber Model # Length Serial # Concrete Rod Buster Implant Date Implant Site Status Right Atrium [id number] [employer] 05/21/2025 RA-Appendage Implanted Right Ventricle [id number] [employer] 05/21/2025 RV-Septum Implanted STIMULATION THRESHOLD Chamber Polarity Pulse Width (ms) Voltage (V) Current (mA) Impedance (Ohms) P/R Wave (mV) Right Atrium Bipolar 0.4 3.0 665 1.625 Right Ventricle Bipolar 0.4 1.625 798 11.0 IVCD (ms):Not Tested 0 Diaphragmatic Stimulation: Negative First Loss of Capture: RV Retrograde Conduction (ms): Not Tested 0 DEVICE MEASURED DATA Pacing Threshold Chamber Pac P/R Wave (mV) Pacing Imp HVB Imp HVX Imp Test Shock V ms Right Atrium 2.3 570 3.0 0.4 Right Ventricle 11.8 760 67 1.0 0.4
--- NOTE | 2025-05-21 14:48 | EKG12_ITS ---
Test Reason : ARRYTH Blood Pressure : */* mmHG Vent. Rate : 88 BPM Atrial Rate : 88 BPM P-R Int : 198 ms QRS Dur : 92 ms QT Int : 380 ms P-R-T Axes : 87 -8 144 degrees QTcB Int : 459 ms Sinus rhythm with frequent Premature ventricular complexes in a pattern of bigeminy Cannot rule out Anterior infarct (cited on or before 07-May-2025) T wave abnormality, consider lateral ischemia Abnormal ECG When compared with ECG of 07-May-2025 11:38, Sinus rhythm has replaced Atrial flutter ST no longer depressed in Inferior leads ST no longer depressed in Anterior leads T wave inversion no longer evident in Inferior leads Confirmed by SANDRO LEE, HARRIS ([id number]), editorial cartoonist SHANIQUA COHEN ([id number]) on 05/22/2025 11:37:52 AM Referred By: Augusto Lacey Confirmed By: HARRIS JO MD
[2025-05-21] MEDS: HYDROcodone Bitartrate/Apap 5/325 Tablet PO ×2 (15:12→21:49)
[2025-05-21] MEDS: Metoprolol(XL)Succ 25 MG Tablet PO (21:46)
[2025-05-22 03:00] VITALS: PULSE 85
[2025-05-22 04:39] VITALS: BP 111/67; PULSE 91; RESP 17; TEMP 36.6; O2SAT 94
--- NOTE | 2025-05-22 05:45 | RAD_ITS ---
PROCEDURE: CHEST 3 VIEW 05/22/2025 REASON FOR EXAM: POST PERMANANT ICD/PACEMAKER TECHNIQUE: Procedure Code: RADCXRPALATOB Modality: DX Procedure: CHEST 3 VIEW COMPARISON: May 21, 2025 FINDINGS: The lungs are adequately aerated bilaterally with persistent blunting of the left costophrenic angle and atelectasis. Small left pleural effusion evident on lateral projection. Cardiomegaly with atheromatous changes of the aorta and central vascular congestion. Left-sided cardiac pacemaker. Prior left hemiarthroplasty. Severe right shoulder arthrosis. Osseous structures are otherwise age-appropriate. RAD/Chest 3 View IMPRESSION: Overall stable appearance of the left costophrenic angle blunting and atelectas is. A small pleural effusion is also noted. Cardiomegaly with central vascular con gestion. Reading Location: [id number]
--- NOTE | 2025-05-22 08:54 | DCINST_ITS ---
Discharge Instructions DC O2, CPAP, BIPAP needs Home O2 Discharge instructions: No Dressing / Incision Discharge Activity: May Not Drive May shower in (days): 2 Additional Activity Instructions:: May shower or bathe on [day 3]. Do not scrub the incision or soak in the tub. Just wash with soap and let the water run over the incision. Gently pat dry with towel. Medications: Take your pain medication as directed. Refer to your discharge instruction sheet for a list of medications you are to take. Dressing / Incision Call your doctor if your incision/area has: Continuous Slow Oozing, Sudden Increased Bleeding, Increased Pain/ Swelling, Increased Redness, Foul Smelling Discharge and Swelling at the incision site Call your doctor if you observe: Fever of 101 or Higher, Shortness of breath, Dizziness, Fainting spells, Swelling in the ankles, Chest pain, Prolonged hiccupping and Increased palpitations (irregular heartbeat) Suture Line Care: Avoid Pulling/Pushing and Avoid Pinching/Bending Additional Dressing/Incision Instructions:: When dressing is removed, wash and dry incision. Keep covered with a light bandage if it is rubbing against your clothing. Do not cover the incision with an airtight bandage. Change the bandage daily. Do not remove steri strips. The strips will fall off on their own. Follow Up Care Please Follow Up With: Don Parker MD When: Pacer follow-up on as per office instructions. Test Results: Test results from this visit will be discussed in further detail at your follow- up appointment, if applicable. Discharge Plan Admission Admit Date/Time: 05/21/25 11:17 Primary Reason for Your Visit: ischemic cardiomyopathy Attending Provider: Augusto Lacey Primary Care Provider: Chelsea Singh Discharge Orders/Prescriptions Prescriptions: Continued tamsulosin 0.4 mg capsule 0.4 mg PO BID Qty: 180 0RF ascorbic acid (vitamin C) 500 mg Tablet 500 mg PO DAILY 30 Days Qty: 30 0RF metoprolol succinate 25 mg Tablet Extended Release 24 Hr 25 mg PO QHS Qty: 0 0RF clopidogrel 75 mg tablet 75 mg PO DAILY Qty: 90 3RF dapagliflozin propanediol [Farxiga] 10 mg tablet 10 mg PO DAILY Qty: 90 3RF pantoprazole 40 mg tablet,delayed release (DR/EC) 40 mg PO DAILY Qty: 90 3RF spironolactone 25 mg tablet 12.5 mg PO DAILY Qty: 45 3RF atorvastatin 40 mg tablet 40 mg PO QHS Qty: 30 0RF polysaccharide iron complex [Ferrex 150] 150 mg iron capsule 150 mg PO DAILY Qty: 90 0RF furosemide 40 mg tablet 40 mg PO QDAY Qty: 90 3RF Held Eliquis 5 mg tablet 5 mg PO BID Qty: 180 3RF Hold Instructions: Resume on 06/01/25. Referrals / Follow Up: Chelsea Singh MD [Primary Care Provider, Internal Medicine] Disposition Disposition (needs filled in before D/C Order can be placed): Home, Self Care
--- NOTE | 2025-05-22 09:21 | CASEMGMT ---
Patient has order for discharge. RN CM in to discuss needs at discharge. Patient denies needs or help at discharge. Patient had no further questions or concerns.
[2025-05-22 09:44] VITALS: BP 104/64; PULSE 88; RESP 18; TEMP 36.7; O2SAT 97
== END 2025-05-22 13:54 | disposition home or self-care (01) ==
LOC: PCU 11:41
PROVIDERS: Nurse Practitioner Gerontology; Admitting Provider Internal Medicine Clinical Cardiac Electrophysiology; PCP Internal Medicine; Referring Provider Internal Medicine Clinical Cardiac Electrophysiology; Visit Provider Internal Medicine Clinical Cardiac Electrophysiology
DX: Z45.02 Encounter for adjustment and management of automatic implantable cardiac defibrillator (principal); I50.21 Acute systolic (congestive) heart failure; I48.0 Paroxysmal atrial fibrillation; N18.30 Chronic kidney disease, stage 3 unspecified; E78.00 Pure hypercholesterolemia, unspecified; Z95.5 Presence of coronary angioplasty implant and graft; I25.2 Old myocardial infarction; R06.02 Shortness of breath; R60.0 Localized edema; Z79.899 Other long term (current) drug therapy; Z79.01 Long term (current) use of anticoagulants; Z79.02 Long term (current) use of antithrombotics/antiplatelets; I12.9 Hypertensive chronic kidney disease with stage 1 through stage 4 chronic kidney disease, or unspecified chronic kidney disease; I25.5 Ischemic cardiomyopathy; R00.1 Bradycardia, unspecified; R94.31 Abnormal electrocardiogram [ECG] [EKG]
CPT/HCPCS: 33249; 36415; 71045; 71046; 71047; 80048; 81001; 83880; 85027; 85610; 93005; 93641; 99152; 99153; 99221; Q9967; C1894; G0378

== ENCOUNTER 2025-05-23 07:39 | Emergency (ER) | payer MEDICARE, SELFPAY ==
[2025-05-23] VITALS (10 sets, daily range): BP systolic 101–135; BP diastolic 61–82; PULSE 43–113; RESP 12–24; TEMP 36.6–36.9; O2SAT 91–99; BMI 31.1
--- NOTE | 2025-05-23 08:04 | EKG12_ITS ---
Test Reason : CP Blood Pressure : */* mmHG Vent. Rate : 91 BPM Atrial Rate : 91 BPM P-R Int : 178 ms QRS Dur : 96 ms QT Int : 372 ms P-R-T Axes : 82 19 77 degrees QTcB Int : 457 ms Sinus rhythm with frequent Premature ventricular complexes in a pattern of bigeminy Cannot rule out Anterior infarct , age undetermined Abnormal ECG Confirmed by SANDRO LEE, HARRIS ([id number]), fashion editor JESUS FIORE ([id number]) on 05/25/2025 6:09:54 AM Referred By: DAYSI Confirmed By: HARRIS JO MD
--- NOTE | 2025-05-23 08:05 | EDS_ITS ---
HPI History of Present Illness Chief Complaint: Chest Pain Informant: patient and family Narrative Narrative: Patient is an 80-year-old male with a history of MD, CVA, and three stents, presenting with pleuritic substernal nonradiating chest pain following a proce dure two days ago. - Reports onset of chest pain immediately after a procedure performed two days ago. - Describes pain as occurring with deep inhalation, localized to the mid-chest, non-radiating. - Pain recurred around 0300 today; took two acetaminophen tablets with partial relief. - Denies dyspnea, fever, cough, abdominal pain, or leg issues. - Currently holding Eliquis, paused a couple of days before the procedure and will resume on the . [facility] Medical History Presence of combination internal cardiac defibrillator (ICD) and pacemaker HFrEF (heart failure with reduced ejection fraction) Junctional bradycardia Ischemic cardiomyopathy Bradycardia GERD (gastroesophageal reflux disease) Chronic anemia Valvular heart disease CKD (chronic kidney disease), stage III PAF (paroxysmal atrial fibrillation) Hyperlipidemia Atrial fibrillation History of CVA (cerebrovascular accident) Dyslipidemia CAD (coronary artery disease) Arthritis Hypertension Home Medications ?Medication ?Instructions ?Recorded ?Last Taken ?Type ascorbic acid (vitamin C) 500 mg 500 mg PO DAILY vitam in 30 days 10/17/23 05/23/25 Rx tablet #30 tabs apixaban 5 mg tablet (Eliquis) 5 mg PO BID blood thinn er #180 tabs 11/17/24 05/19/25 Rx Held on 05/23/25. Instructions: Resume on 06/01/25. clopidogrel 75 mg tablet 75 mg PO DAILY anti platelet #90 11/17/24 05/23/25 Rx Held on 05/23/25. tabs Instructions: Resume on 05/26/25. while taking ibuprofen dapagliflozin propanediol 10 mg 10 mg PO DAILY diabete s #90 tabs 11/17/24 05/23/25 Rx tablet (Farxiga) pantoprazole 40 mg tablet,delayed 40 mg PO DAILY reflu x #90 tabs 11/17/24 05/23/25 Rx release spironolactone 25 mg tablet 12.5 mg (1/2 x 25 mg) PO D AILY 11/17/24 05/23/25 Rx diuretic #45 tabs tamsulosin 0.4 mg capsule 0.4 mg PO BID prostate #180 caps 02/10/25 05/23/25 Rx atorvastatin 40 mg tablet 40 mg PO QHS cholesterol #30 tabs 05/11/25 05/22/25 Rx furosemide 40 mg tablet 40 mg PO QDAY diuretic #90 t abs 05/12/25 05/23/25 Rx metoprolol succinate 25 mg 25 mg PO DAILY blood pressu re 05/23/25 05/22/25 History tablet,extended release 24 hr Allergy/AdvReac Type Severity Reaction Status Date / Time sacubitril (From Entresto) Allergy Mild cough Verified 05/23/25 07:41 valsartan (From Entresto) Allergy Mild cough Verified 05/23/25 07:41 Family History Mother Diabetes Father CVA (cerebral vascular accident) Brother Alcoholism Sister Breast cancer Surgical History H/O hernia repair History of left shoulder replacement Hx of cataract extraction History of total right hip arthroplasty Stented coronary artery (09/26/23) Hx of cardiac catheterization (09/26/23) History of total left hip arthroplasty Social History adopted: No household members: none housing: house current occupational status: retired 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, 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 [employer] current occupational exposures/hazards: No pets and animals: No history of recent travel: No sexually active: No Smoking Status: Never smoker alcohol intake: never substance use type: does not use caffeine: No what type of physical activity do you participate in: other details: yard work frequency: does not exercise seatbelt use: always do you feel safe at home: Yes ROS ROS ED Constitutional Constitutional ED: Denies chills or fever(s) Eyes Eyes: Denies change in vision or diplopia ENT ENT ED: Denies rhinorrhea or sore throat Cardiovascular Cardiovascular: Reports as per HPI and chest pain; Denies leg edema, orthopnea or palpitations Respiratory/Chest Respiratory/Chest: Denies cough, dyspnea or orthopnea Gastrointestinal Gastrointestinal: Denies abdominal pain, diarrhea, nausea or vomiting Genitourinary Genitourinary ED: Denies dysuria or hematuria Musculoskeletal Musculoskeletal: Denies back pain or neck pain Integumentary Denies abscess or rash Neurologic Neurologic: Denies headache(s), paresthesias or weakness Psychiatric Psychiatric: Denies anxiety or suicidal thoughts EXAM Physical Exam Const Vital Signs: 05/23/25 07:39 05/23/25 07:51 05/23/25 07:53 Temperature 97.9 F Temperature Source Temporal Pulse Rate 43 L 86 Respiratory Rate 16 18 Respiratory Effort Normal Non-Labored Blood Pressure 126/63 H 135/67 H Blood Pressure Mean 84 89 Pulse Ox 99 97 Oxygen Delivery Method Room Air Room Air 05/23/25 08:12 05/23/25 08:48 05/23/25 09:11 Temperature Temperature Source Pulse Rate 81 86 Respiratory Rate 12 18 Respiratory Effort Blood Pressure 120/61 107/82 H Blood Pressure Mean 80 90 Pulse Ox 98 98 Oxygen Delivery Method Room Air Room Air Room Air 05/23/25 10:14 05/23/25 11:02 05/23/25 12:03 Temperature Temperature Source Pulse Rate 90 76 113 H Respiratory Rate 16 18 20 H Respiratory Effort Blood Pressure 108/67 118/79 120/72 Blood Pressure Mean 80 92 88 Pulse Ox 97 95 94 Oxygen Delivery Method Room Air Room Air 05/23/25 13:01 Temperature Temperature Source Pulse Rate 110 H Respiratory Rate 20 H Respiratory Effort Blood Pressure 110/73 Blood Pressure Mean 85 Pulse Ox 91 Oxygen Delivery Method Room Air Positive well nourished and well developed General Appearance ED: well developed and NAD HEENT Reports moist mucous membranes normocephalic and atraumatic Eyes PERRL and EOMs intact bilaterally Neck full ROM and supple Chest Wall Chest Narrative: Left upper chest wall ICD placement appears benign dressing is intact there is no discharge, there is an ecchymotic area, it is minimally tender. Central chest where he is having pain is nontender. No subcutaneous emphysema palpable anywhere. Resp normal respiratory effort and clear to auscultation bilaterally Cardio no murmurs Rate: Negative for tachycardic Rhythm: abnormal rhythm irregularly irregular Peripheral Pulses: pulses 2+ throughout GI non-tender and non-distended Auscultation: normoactive bowel sounds Palpation: soft Back/Spine no CVA tenderness General Back: other FROM Extremity normal to inspection General Extremety ED: Negative for edema, pulses abnormal or tenderness General Extremity: Negative for edema or pulses abnormal Neuro oriented x3, CN's II-XII intact bilaterally and no sensory deficits noted Sensorium / Orientation: awake and alert Motor Exam: strength 5/5 throughout Psych mental status grossly normal Skin no rashes or lesions noted and no wounds MDM MDM MDM Narrative Medical decision making narrative: Assessment: The patient is an 80-year-old male with PMH of complex coronary artery disease, ischemic cardiomyopathy with LVEF 20?33%, paroxysmal atrial fibrillation, and recent ICD placement two days ago presenting for pleuritic mid-sternal chest pain. Differential included pulmonary embolism given recent interruption of anticoagulation and musculoskeletal pain related to the device implantation. Normal chest X-ray and stable troponins argued against acute cardiac ischemia, while elevated D-dimer prompted CTA chest, which together with the remainder of the work-up was negative for PE. In discussion with cardiology, current pain is most consistent with post-procedural musculoskeletal chest wall pain. Plan: - ED analgesia: GI cocktail without relief; morphine given with transient relief; repeat oral acetaminophen effective. - Discharge home per cardiology with 2?3 days of low-dose ibuprofen plus acetaminophen PRN for pain control. - Hold clopidogrel temporarily, resume once pain resolves as instructed by cardiology. - Resume apixaban on 07/02 as previously planned. - Outpatient follow-up with cardiology for ICD post-op review and symptom reassessment. Diagnostics: - Chest X-ray, single view: normal. Independently interpreted by me, Michael Hogan. - D-dimer 2.47 ?g/mL FEU (elevated). - Troponin series flat, unchanged from baseline. - CT angiography chest: no pulmonary embolism detected. Consultations: - Cardiology (Dr. mairscal) ? concurs pain is post-procedural; recommends short course NSAID, hold clopidogrel, outpatient management; agrees with discharge. Reevaluations: - Patient experienced increased chest pain during stay; after morphine and subsequent acetaminophen reported significant improvement and comfortable for discharge. Portions of this note were generated using voice recognition software ([employer] Dictation). I have reviewed the contents and every effort has been made to ensure accuracy; however, inadvertent errors in grammar, spelling, punctuation, or word choice may occur, that were not noted before signing the document and should not alter the intended clinical meaning. Lab Data Attestation: I reviewed the patient's lab results. Labs: Laboratory Results - last 24 hr 05/23/25 05/23/25 05/23/25 08:07 10:18 12:10 WBC 9.5 RBC 4.87 Hgb 15.6 Hct 48.7 MCV 100.0 H MCH 32.0 MCHC 32.0 RDW Std Deviation 50.0 H RDW Coeff of [place] 13.6 Plt Count 150 MPV 11.5 Immature Gran % (Auto) 0.400 Neut % (Auto) 74.1 H Lymph % (Auto) 12.2 L [place] % (Auto) 11.3 H Eos % (Auto) 1.6 Baso % (Auto) 0.4 Absolute Neuts (auto) 7.1 Absolute Lymphs (auto) 1.16 Nucleated RBC % 0 APTT 30.2 D-Dimer Quant (PE/DVT) 2.47 H* Sodium Cancelled 136 Potassium Cancelled 4.5 Chloride Cancelled 103 Carbon Dioxide Cancelled 24.0 Anion Gap Cancelled 9 BUN Cancelled 24 H Creatinine Cancelled 1.34 H Estim Creat Clear Calc Cancelled 47.03 L Est GFR (MDRD) Non-Af Cancelled 53 L BUN/Creatinine Ratio Cancelled 17.8 Glucose Cancelled 93 Calcium Cancelled 7.9 Troponin T High Sens Cancelled 40 H Troponin T Hi Sens 2 Hr 43 H Radiography Diagnostic Testing: Clinical Impression(s) from Imaging Studies Chest X-Ray 05/23/25 08:15 IMPRESSION: Mild left basilar atelectasis. Reading Location: [address] Chest CTA 05/23/25 09:50 IMPRESSION: No evidence of pulmonary embolism. Bilateral pleural effusions concerning for CHF. Reading Location: [id number] Rhythm Strip Rhythm Strip: Sinus Rhythm Rate: 90 Ectopy: PVC(s) EKG Initial EKG: Attestation: I personally reviewed and interpreted this EKG as follows: Interpretation: Sinus Rhythm (Narrow QRS) and No Acute Injury Pattern Comments: freq PVCs, in bigeminy currently; normal axis. Normal intervals except for PVCs. Management Discussion w/another healthcare provider: [employer] (Cardiology) Discharge Plan Triage Chief Complaint: Chest Pain ED Provider: Michael Hogan Dx/Rx/DC Orders Clinical Impression: Pleuritic chest pain, Bilateral pleural effusion, Ischemic cardiomyopathy, AICD (automatic cardioverter/defibrillator) present Instructions: ED Chest Wall Pain, Costochondritis Prescriptions: Continued tamsulosin 0.4 mg capsule 0.4 mg PO BID Qty: 180 0RF ascorbic acid (vitamin C) 500 mg Tablet 500 mg PO DAILY 30 Days Qty: 30 0RF metoprolol succinate 25 mg Tablet Extended Release 24 Hr 25 mg PO DAILY dapagliflozin propanediol [Farxiga] 10 mg tablet 10 mg PO DAILY Qty: 90 3RF pantoprazole 40 mg tablet,delayed release (DR/EC) 40 mg PO DAILY Qty: 90 3RF spironolactone 25 mg tablet 12.5 mg PO DAILY Qty: 45 3RF atorvastatin 40 mg tablet 40 mg PO QHS Qty: 30 0RF furosemide 40 mg tablet 40 mg PO QDAY Qty: 90 3RF Held Eliquis 5 mg tablet 5 mg PO BID Qty: 180 3RF Hold Instructions: Resume on 06/01/25. clopidogrel 75 mg tablet 75 mg PO DAILY Qty: 90 3RF Hold Instructions: Resume on 05/26/25. while taking ibuprofen Primary Care Provider: Chelsea Singh Referrals: Don Mariscal MD [Med Staff - Active Staff, Cardiology] - 3-5 Days Activity Restrictions/Additional Instructions: - Take low-dose ibuprofen 200 mg 2-3 times per day, for 2?3 days to help with your chest discomfort. - Continue acetaminophen (Tylenol) as needed for breakthrough pain. - Hold clopidogrel temporarily; restart it once your chest pain has improved. - Resume any blood thinners per your astronaut mission specialist?s instructions at your next follow-up. Print Language: Croatian Disposition Disposition: Home, Self Care
--- NOTE | 2025-05-23 08:15 | RAD_ITS ---
PROCEDURE: CHEST 1 VIEW (PORTABLE) 05/23/2025 REASON FOR EXAM: CHEST PAIN TECHNIQUE: Frontal view of the chest. FINDINGS: Left chest pacemaker. The heart borders are unremarkable. Mild left basilar atelectasis. No acute osseous abnormalities. RAD/Chest 1 View (Portable) IMPRESSION: Mild left basilar atelectasis. Reading Location: [id number]
[2025-05-23 08:17] LABS: Hematocrit 48.7 % (40-54); Hemoglobin 15.6 g/dL (13.0-16.5); Immature Granulocytes Count 0.040 X10^3/uL (0.0-0.0); Mean Corp Hgb Conc 32.0 g/dL (32-36); Mean Corpuscular Volume 100.0 fL (80-94); Mean Platelet Vol. 11.5 fl (6.2-12.0); NRBC Flagged by Analyzer 0 % (0-5); Platelet Count 150 K/mm3 (150-450); RBC Distribution Width CV 13.6 % (11.6-14.6); RBC Distribution Width SD 50.0 fl (35.1-43.9); Red Blood Count 4.87 M/mm3 (4.6-6.2); White Blood Count 9.5 K/mm3 (4.4-11.0)
[2025-05-23 08:29] LABS: Partial Thromboplast Time 30.2 Seconds (24.1-36.2)
[2025-05-23 08:38] LABS: D-Dimer Quantitative (DVT/PE) 2.47 FEU/ug/m (0.27-0.49)
--- OUTSIDE RECORDS SUMMARY | 2025-05-23 08:38 | XMS RPT_ITS | CCD ---
Author Organization [facility] Care Team Providers Care Tool And Equipment Rental Clerk Name Role Phone Terry LEE, Iwona Bedoya Primary Care Provider TERRY LEE, IWONA Edmond Primary Care Physician Terry LEE, Iwona Bedoya Primary Care Provider VERITO DOURIEL Referring Unavailable IWONA STEWART Primary Care Unavailable GROSS DOURIEL Referring Unavailable IWONA STEWART Primary Care Unavailable GROSS DOURIEL Attending Unavailable GROSS DOURIEL Referring Unavailable IWONA STEWART Primary Care Unavailable URIEL PAREDES DO Attending Unavailable IWONA STEWART Primary Care Unavailable Dr. Iwona Stewart Primary Care Provider [phone] Isai Hernandez Emergency Provider Dr. Sean Ayala Admit Provider Dr. Sean Ayala Other Provider Dr. Rodney Brown Attending [...] Dr. Claude Richardson Other Provider Unavailab Winston BORING MACHINE OPERATOR, BORING MACHINE OPERATOR-C Rosa Other Provider Dr. Megan hCau Attending Provider Dr. Sean Ayala Referring Provider Dr. Iwona Stewart Referring Provider Bakari BORING MACHINE OPERATOR, BORING MACHINE OPERATOR-C Petra Attending Provider Dr. Sean Ayala Referring Provider Dr. Mark Powers Attending Provider Bakari BORING MACHINE OPERATOR, BORING MACHINE OPERATOR-C Petra Referring Provider Bakari BORING MACHINE OPERATOR, BORING MACHINE OPERATOR-C Petra Other Provider Dr. Don Parker Attending Provider [phone] Angella Rounding Nurse, Francisco Unavailable Dr. Iwona Espinoza Primary Care Provider Dr. Iwona Stewart Referring Provider [phone] Bakari BORING MACHINE OPERATOR, BORING MACHINE OPERATOR-C Petra Attending Provider Bakari BORING MACHINE OPERATOR, BORING MACHINE OPERATOR-C Petra Referring Provider Bakari BORING MACHINE OPERATOR, BORING MACHINE OPERATOR-C Petra Other Provider Dr. Don Parker Attending [...] Care Provider Iwona Stewart Primary Care Provider [phone] Dr. Iwona Stewart Primary Care Provider Elena, Dr. Ochoa Attending Provider [phone] Dr. Don Parker Referring Provider [phone] Dr. Mark Powers Attending Provider [phone] Gasper, Dr. Gloria Referring Provider [phone] Spencer, Dr. David Quintanilla Admit Provider Spencer, Dr. David Quintanilla Referring Provider Spencer, Dr. David uQintanilla Other Provider Friend, Dr. Garcia Attending Provider [phone] Friend, Dr. Garcia Other Provider [phone] Friend, Dr. Garcia Referring Provider [phone] Petra Hdez Attending Provider Unavailable GASPER, FAIZAN [...] IWONA STEWART MD Primary Care Unavailable EVELYNE TORRES-GAS LEAK INSPECTOR, ELIZA Murray Admitting UnavailIWONA Redman MD Primary [...] LEE, IWONA Edmond Primary Care Unavailable IWONA STEWRAT MD Attending Unavailable IWONA STEWART MD D [...] Terry LEE, Dr. Lowery Referring Provider Roof BORING MACHINE OPERATOR-C, Vidal H Attending Provider [phone] Roof BORING MACHINE OPERATOR-C, Vidal H Referring Provider Mireille LEE, Dr. Starr Attending Provider Care Physician, No Primary Referring Provider Un available Roof BORING MACHINE OPERATOR-C, Vidal H Other Provider Isac LEE, Dr. Guzman Attending Provider Care Physician, No Primary Primary Care Provider Unavailable Roof BORING MACHINE OPERATOR-C, Vidal H Attending Provider [phone] Care Physician, No Primary Primary Care Provider Unavailable Care Physician, No Primary Referring Provider Un available Roof BORING MACHINE OPERATOR-C, Vidal H Attending Provider Roof BORING MACHINE OPERATOR-C, Vidal H Referring Provider Francisco LEE, Dr. Tran Attending Provider Elena LEE, Dr. Ochoa Attending Provider [phone] [phone] LEE, Dr. Casas Attending Provider [phone] Francisco LEE, Dr. Tran Primary Care Provider [phone] SELF Referring Unavailable MARISSA SORTO Attending Unavailable MARISSA SORTO Referring Unavailable KIM PRATT Attending Unavailable Ro Kendrick Attending Unavailable Care Physician, No Primary Primary Care Unava ilable Iwona Stewart Referring Unavailable Care Physician, No Primary Primary Care Unava ilable Roof BORING MACHINE OPERATOR, Vidal Kelsey Attending Unavailable Care Physician, No Primary Primary Care Unava ilable Sarah Perrin Attending Unavailable Schwtori, Mark Referring Unavailable Care Physician, No Primary Primary Care Unava ilable Sarah Perrin Admitting Unavailable Chet Edmonds Attending Unavailable Gregory Kruse Consulting Unavailable Abbi, Mark Referring Unavailable Sarah Perrin Consulting Unavailable Chet Edmonds Consulting Unavailable Iwona Stewart Primary Care Unavailable Bakari BORING MACHINE OPERATOR, Petra Attending Unavailable Bakari BORING MACHINE OPERATOR, Petra Referring Unavailable Care Physician, No Primary Primary Care Unava ilable Roof BORING MACHINE OPERATOR, Vidal Kelsey Attending Unavailable Roof BORING MACHINE OPERATOR, Vidal Kelsey Referring Unavailable Care Physician, No Primary Primary Care Unava ilable Sarah Perrin Admitting Unavailable Chet Edmonds Attending Unavailable Gregory Kruse Consulting Unavailable Abbi, Mark Referring Unavailable Sarah Perrin Consulting Unavailable Care Physician, No Primary Primary Care Unava ilable Megan Chau Attending Unavailabl e Roof BORING MACHINE OPERATOR, Vidal Kelsey Referring Unavailable Roof BORING MACHINE OPERATOR, Vidal Kelsey Consulting Unavailable Care Physician, No Primary Primary Care Unava ilable Don Parker Attending Unavailable Roof BORING MACHINE OPERATOR, Vidal Kelsey Referring Unavailable Gregory Kruse Attending Unavailable Care Physician, No Primary Primary Care Unava ilable Roof BORING MACHINE OPERATOR, Vidal Kelsey Referring Unavailable Roof BORING MACHINE OPERATOR, Vidal Kelsey Attending Unavailable Augusto Lacey Referring Unavailable Augusto Lacey Attending Unavailable Chelsea Singh Primary Care Unavailable Care Physician, No Primary Primary Care Unava ilable Roof BORING MACHINE OPERATOR, Vidal Kelsey Attending Unavailable Roof BORING MACHINE OPERATOR, Vidal Kelsey Referring Unavailable Care Physician, No Primary Referring Unava ilable Roof BORING MACHINE OPERATOR, Vidal Kelsey Attending Unavailable Care Physician, No Primary Primary Care Unava ilable Care Physician, No Primary Primary Care Unava ilable Care Physician, No Primary Referring Unava ilable Roof BORING MACHINE OPERATOR, Vidal Kelsey Attending Unavailable Care Physician, No [...] Drug Allergy 0 Cough, Nausea And Vomiting [facility] (9 sources) sacubitril / valsartan; Translations: [sacubitril-bob sartan] Drug Allergy Unknown (qualifier value) [facility] (12 sources) Wool; Translations: [WOOL] Allergy to substance 5 Unknown [facility] (14 sources) sacubitril; Translations: [SACUBITRIL] Drug Allergy 3 [facility] (14 sources) valsartan; Translations: [VALSARTAN] Drug Allergy 3 [facility] (6 sources) Lanolin; Translations: [LANOLIN] Drug Allergy 4 Other: See Comments [facility] (1 source) sacubitril Drug Allergy 5 [facility] (1 source) valsartan Drug Allergy 5 [facility] Repository Medications Current Medications Medication Drug Class(es) [...] 0 Refill(s), 10/03/23 7:59:00 AM EDT, Pharmacy: [facility]/pharmacy #[id number], 170, cm, 09/18/23 17:05:00 EDT, Height, kg, 09/18/23 17:05:00 EDT, Dosing Weight Start Date: 09/19/23 Stop Date: 10/03/23 Status: Ordered [id number] 200 actuat albuterol 0.09 mg/actuat metered dose [...] needed., # 100 gram(s), 1 Refill(s), Pharmacy: [facility]/pharmacy #[id number], Gel, 170.2, cm, 05/18/23 12:59:00 EST, Height, [...] left lower lobe of lung Use 1 [place] in each nostril once daily. 11.1 mL 08/18/2024 Active Iron Polysaccharide Complex (as elemental iron) 150 mg oral capsule (2 sources) Start: 11-13-2023 Iron Polysaccharide Complex (as elemental iron) 150 mg oral capsule Dose : 150 mg = 1 cap(s), Oral, qDay, # 90 cap(s), 3 Refill(s), Pharmacy: [facility], 170.2, cm, 10/25/23 13:04:00 [...] BID, # 180 tab(s), 3 Refill(s), Pharmacy: [facility]/pharmacy #[id number], 170.2, cm, 10/25/23 13:04:00 EDT, Height, [...] 0 Refill(s), 06/07/23 2:25:00 PM EST, Pharmacy: [facility]/pharmacy #[id number], Osteoarthritis of left hip UTI (urinary tract infection), 170.2, cm, 05/31/23 13:48:00 EST, Height, 93, kg, 05/31/23 13:43:00 EST, Dosing Weight Start Date: 05/31/23 Stop Date: 06/07/23 Status: Ordered polyethylene glycol 3350 21410 mg powder for oral solution (14 sources) [...] May 14, 2023 2:31pm OTC polymyxin b 30750 unt/ml / trimethoprim 1 mg/ml ophthalmic solution [...] day(s), # 28 tab(s), 0 Refill(s), [id number], 170.2, cm, 05/01/24 11:25:00 EST, Height, 93.2, kg, 05/01/24 11:25:00 EST, Dosing Weight Start Date: 05/01/24 Stop Date: 05/15/24 Status: Ordered Start: 05-31-2023 End: 06-10-2023 take 1 tablet by mouth twice daily Bactrim DS 800 mg-160 mg oral tablet Dose = 1 tab(s), Oral, BID, X 10 day(s), # 20 tab(s), 0 Refill(s), [id number], 170.2, cm, 05/31/23 13:48:00 EST, Height, [...] every six hours as needed for pain [place] 325- 5 mg oral tablet Dose = [...] 12:43pm docusate sodium 50 mg / sennosides, fpc 8.6 mg oral tablet (9 sources) Start: [...] hours, # 30 patch(es), 1 Refill(s), Pharmacy: [facility]/pharmacy #[id number], Osteoarthritis of left hip, 170.2, cm, 05/18/23 [...] sedation for opioid reversal - MUST notify saturation equipment operator provider immediately after first dose, may give [...] daily, # 45 tab(s), 3 Refill(s), Pharmacy: [facility], 170.2, cm, 10/25/23 13:04:00 [...] qDay, # 30 cap(s), 0 Refill(s), Pharmacy: [facility]/pharmacy #4605, 170.2, cm, 10/25/23 13:04:00 EDT, Height, [...] SBP < 100, , On hold since [facility] 09/27/2023 at 1538 until manually unheld (8 [...] high risk for thromboembolic events, with a [id number] score of 5 (C=1 for CHF, H=1 [...] Coronary arteriosclerosis; Translations: [Atherosclerotic heart disease of [place] coronary artery without angina pectoris] Onset: 0 [...] sources) Long-term current use of anticoagulant; Translations: [assisted (current) use of anticoagulants] 02-08-2024 Episodic Other aftercare (1 source) Other terminal block assembler (current) drug therapy; Translations: [Other fdc (current) [...] 07-17-2024 05-14-2023 Episodic Other aftercare (1 source) assisted (current) use of anticoagulants; Translations: [assisted (current) use of anticoagulants] Onset: 07-08-2024 Episodic [...] Test Name Value Interpretation Reference Range Facility [facility] 04-27-2025 CNOV Office Visit (MMAS ) EBEN CRUZ ([id number]) 1945 M Date Time Provider Department 04/27/25 12:30 PM KIM PRATT [facility] During your visit today, we recorded the following information about you: Temperature Pulse Respiration Blood pressure 97.6 degrees 58/minute 16/minute 116/72 Weight 94 kg Kim Pratt, EXECUTIVE CREATIVE DIRECTOR.GAS LEAK INSPECTOR 04/27/2025 2:12 PM Signed [facility] NAHOMI Treadwell P Deibel [...] membrane and external ear normal. Mouth/Throat: Lips: [place]. Mouth: Mucous membranes are moist. Pharynx: Posterior [...] symptoms persist or worsen. and Recording using [employer] software for draft documentation of the visit was discussed with the patient/authorized retail sales representative; all questions welcomed and answered. Patient/authorized retail sales representative agreed to proceed Differential Diagnoses [...] Date Reviewed: 04/27/2025 Reviewed by: Kim Pratt APRN.GAS LEAK INSPECTOR - Fully Assessed Reason for Visit: Cough [28] Cmt: Cough, Sinus Drainage, x 3 weeks OTC meds help a little per patient Patient states he is not sure what is causing the excessive fluid in his throat Medication [Other] Cmt: REBECCA -I did notice from patients med list he is on 2 different blood thinners during triage (more content not included)... Normal [facility] Cardiology Visit Reporton Cardiology Visit Report [facility] [address] [place] [address] OFFICE VISIT Date of Service: 02/27/25 MR#: [id number] Acct: [id number] Name: EBEN CRUZ Rep #: [id number] : 1945 Provider: Dr. Augusto crooks MD Age/Sex: 79/M Location: [facility] Status: Signed HPI HPI History of Present Illness Details: The patient presents for evaluation of ischemic cardiomyopathy and symptomatic bradycardia. The patient is an 79-year-old male with a history of ischemic cardiomyopathy, status post cbc-HS-dnyebxjpr myocardial infarction (NSTEMI) in September 2023. His [...] air Intake Visit Reasons: Congestive heart failure Layboy Tender Required: No Accompanied by: Daughter Is patient [...] Rx Ejecti (more content not included)... Normal [facility] Internal Medicine Office Vis iton 02-09-2025 Internal Medicine Office Visit [facility] [address] [place] [address] [place] [address] OFFICE VISIT Date of Service: 02/10/25 MR#: [id number] Acct: [id number] Name: EBEN CRUZ Rep #: [id number] : 1945 Provider: Dr. Chelsea bryan MD Age/Sex: 79/M Location: 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 Normal [facility] Cardiology Visit Reporton Cardiology Visit Report [facility] [address] [place], [place] [address] OFFICE VISIT Date of Service: 11/05/24 MR#: [id number] Acct: [id number] Name: EBEN CRUZ Rep #: [id number] : 1945 Provider: LUIZ hernandez Age/Sex: 79/M Location: [facility] Status: Signed HPI HPI History of Present Illness Details: Mr. Eben Cruz is an 79-year-old male who presents here for a cardiovascular follow-up visit. He was a direct transfer from [facility] for an NSTEMI on 09/23/2023. He originally presented to [facility] on 09/18/2023 for a planned elective total hip replacement with Dr. Schreiber. The procedure was noted to be fairly complicated and required wound VAC placement. Skilled rehab was recommended for discharge and the patient was in the process of transitioning to the [facility] TCU on 09/22/2023 however on the [...] discuss the case with Dr. Nichole at [facility] who accepted for transfer for complex [...] 40%. He was recently admitted and evaluated [facility] for carbon monoxide poisoning. Echocardiogram showed an [...] Visit R (more content not included)... Normal [facility] Cardiovascular stress test r eportOrdered By: Megan Chau on 08-26-2024 Study report [facility] [address] [place] [address] MR#: [id number] Acct: [id number] Name: EBEN CRUZ Rep #: [id number] : 1945 79 From: Megan palencia MD Primary Care: Care Physician,No Primary Status: REG CLI Referring Dr: Vidal Banda BORING MACHINE OPERATOR BORING MACHINE OPERATOR-C Sex: M C Stress Test Report Date: [...] is 33%. This note was generated with [employer] software. It may contain incorrect words, spelling, and punctuation that were not noted in checking the note before signing. 08/26/246 Date _ Megan Chau MD CC: LUIZ Banda; No Primary Care Physician ~ Date Dictated: 08/26/241332 Date Transcribed: 08/26/241332 Preschool Paraprofessional: NN Signed [facility] Work Phone: Stress Reporton 08-26-2024 Stress Report [facility] [address] [place] [address] MR#: [id number] Acct: [id number] Name: EBEN CRUZ Rep #: [id number] : 1945 79 From: Megan Chau MD [...] is 33%. This note was generated with [employer] dictation software. It may contain incorrect words, spelling, and punctuation that were not noted in checking the note before signing. 08/26/241335 Date Megan Chau MD CC: BORING MACHINE OPERATORDesirae Banda; No Primary Care Physician Date Dictated: 08/26/241332 Date Transcribed: 08/26/241332 Preschool Paraprofessional: TIERNEY Signed Normal [facility] CNOVon 08-18-2024 CNOV Office Visit ([facility] ) EBEN CRUZ ([id number]) 1945 M Date Time Provider Department 08/18/24 12:10 PM MARISSA SORTO [facility] During your visit today, we recorded the following information about you: Temperature Pulse Respiration Blood pressure 97.8 degrees 56/minute 18/minute 109/64 Weight 88.9 kg Marissa Sorto Trevor, EXECUTIVE CREATIVE DIRECTOR.GAS LEAK INSPECTOR 08/18/2024 2:16 PM Signed Eben Cruz is a 79 year old male who presents with Cough (Cough, nasal congestion and drainage x 2 weeks) Started 2 weeks ago, now with persistent running nose and congestion, cough Cough Associated symptoms include sore throat. Pertinent negatives include no chest pain, no chills, no shortness of breath and no wheezing. PAST MEDICAL HISTORY Diagnosis Date A-fib ([facility]) CAD (coronary artery disease) Cardiomyopathy ([facility]) Chronic systolic heart failure ([facility]) CVA (cerebral vascular accident) ([facility]) 04/2023 right parietal CVA Essential hypertension HFrEF (heart failure with reduced ejection fraction) ([facility]) NYHA class lll History of cardiac cath [...] Mixed hyperlipidemia NSTEMI (non-ST elevated myocardial infarction) ([facility]) 09/23/2023 Stented coronary artery 09/26/2023 NORIS to RCA. NORIS to LM and NORIS to LAD ACTIVE PROBLEM LIST Cardiomyopathy ([facility]) History of Echocardiography Cad (Coronary Artery Disease) History of Cardiac Cath History of Stress Test Mixed Hyperlipidemia Essential Hypertension Non-Smoker Sob (Shortness of Breath) Dizziness History of Holter Monitoring Hfref (Heart Failure With Reduced Ejection Fraction) ([facility]) Nstemi (Non-St Elevated Myocardial Infarction) ([facility]) A-Fib ([facility]) Current Outpatient Medications Medication Sig Dispense [...] and wheezing. (more content not included)... Normal [facility] Cardiology Visit Reporton Cardiology Visit Report [facility] [place] [address] [facility] [place] [address] OFFICE VISIT Date of Service: 08/18/24 MR#: [id number] Acct: [id number] Name: EBEN CRUZ Rep #: [id number] : 1945 Provider: LUIZ hernandez Age/Sex: 79/M Location: [facility] Status: Signed HPI HPI History of Present Illness Details: Mr. Eben Cruz is an 79-year-old male who presents here for a cardiovascular follow-up visit. He was a direct transfer from [facility] for an NSTEMI on 09/23/2023. He originally presented to [facility] on 09/18/2023 for a planned elective total hip replacement with Dr. Schreiber. The procedure was noted to be fairly complicated and required wound VAC placement. Skilled rehab was recommended for discharge and the patient was in the process of transitioning to the [facility] TCU on 09/22/2023 however on the [...] discuss the case with Dr. Nichole at [facility] who accepted for transfer for complex [...] 40%. He was recently admitted and evaluated [facility] for carbon monoxide poisoning. Echocardiogram showed an [...] Temperature So (more content not included)... Normal [facility] XR CHEST 2V FRONTAL/LATon XR CHEST 2V [...] the left humeral head. IMPRESSION: See result. Preschool Paraprofessional: MARTY Transcribe Date/Time: Aug 20 2024 6:16P Dictated by : JUAN MANUEL MORALES MD This examination was interpreted and the report reviewed and electronically signed by: JUAN MANUEL MORALES MD on Aug 20 2024 6:17PM EST [id number] [facility] Echo, Limited Studyon 2024 Echo, Limited Study [facility] [address] [place] [address] Echo, Limited Study 08/08/24 0906 MR#: [id number] Acct: [id number] Name: EBEN CRUZ Rep #: [id number] : 1945 79 From: Ro Kendrick MD Attending Dr: Vidal Banda BORING MACHINE OPERATOR-C Status: REG CLI Ordering Dr: Vidal Banda BORING MACHINE OPERATOR BORING MACHINE OPERATOR-C Date: 08/08/24 Location: [facility] Sex: M C [...] Date Dictated: 08/08/24905 Date Transcribed: 08/08/24 1621 Preschool Paraprofessional: Signed [facility] 12 Lead EKG performed by SHANNAN on 06-27-2024 12 Lead EKG performed by [facility] [address] [place] [address] 12 Lead EKG performed by [facility] 06/27/241123 MR#: [id number] Acct: [id number] Name: EBEN CRUZ Rep #: [id number] : 1945 79 From: Vidal Banda BORING MACHINE OPERATOR BORING MACHINE OPERATOR-C Attending Dr: Vidal Banda, BORING MACHINE OPERATOR-C Status: DEP AMB Ordering Dr: Vidal Banda BORING MACHINE OPERATOR BORING MACHINE OPERATOR-C Date: 06/27/24 Location: [facility] Sex: M C Admitted: [facility]/12 Lead EKG performed by [facility] ECG Report Interpretation S inus Rhythm - frequent ectopic ventricular beat s # VECs = 6-Nonspecific ST depression + Nonspecific T-abnormality -Nondiagnostic. ABNORMAL Electronically signed on 07/02/2024 at 08:46 by Don Parker Software Version [id number] 07/02/24 0851 Date Vidal Banda NP BORING MACHINE OPERATOR-C CC: No Primary Care Physician Date Dictated: 06/27/241123 Date Transcribed: 06/27/241123 Preschool Paraprofessional: DEBRA Signed Normal [facility] Basic Metabolic Profile (BMP )on 06-27-2024 BUN Normal -18 [facility] Comment on above: Result Comment: Canc elled via OM: Order cancelled - Patient discharged Performed By: #### L 500.4050, L100.0100 #### [facility] Laboratory [address] [place], [address] BUN/CRE Normal 10-20 [facility] Comment on above: Result Comment: Canc elled via OM: Order cancelled - Patient discharged Performed By: #### L 500.4050, L100.0100 #### [facility] [address] [place], [address] CA,Total Normal 8.5-10.1 [facility] Comment on above: Result Comment: Canc elled via OM: Order cancelled - Patient discharged Performed By: #### L 500.4050, L100.0100 #### [facility] [address] [place], [address] CL Normal 98-107 [facility] Comment on above: Result Comment: Canc elled via OM: Order cancelled - Patient discharged Performed By: #### L 500.4050, L100.0100 #### [facility] [address] [place], [address] CO2 Normal 21.0-32.0 [facility] Comment on above: Result Comment: Canc elled via OM: Order cancelled - Patient discharged Performed By: #### L 500.4050, L100.0100 #### [facility] [address] [place], [address] CREAT,SERUM Normal 0.70-1.30 [facility] Comment on above: Result Comment: Canc elled via OM: Order cancelled - Patient discharged Performed By: #### L 500.4050, L100.0100 #### [facility] [address] [place], [address] EST GFR Normal >60 [facility] Comment on above: Result Comment: Canc elled via OM: Order cancelled - Patient discharged Performed By: #### L 500.4050, L100.0100 #### [facility] [address] [place], [address] EST GFR - AA Normal >60 [facility] Comment on above: Result Comment: Canc elled via OM: Order cancelled - Patient discharged Performed By: #### L 500.4050, L100.0100 #### [facility] [address] [place], [address] GAP Normal 5-15 [facility] Comment on above: Result Comment: Canc elled via OM: Order cancelled - Patient discharged Performed By: #### L 500.4050, L100.0100 #### [facility] [address] [place], [address] GLU Normal 74-106 [facility] Comment on above: Result Comment: Canc elled via OM: Order cancelled - Patient discharged Performed By: #### L 500.4050, L100.0100 #### [facility] [address] [place], [address] Potassium Normal 3.5-5.1 [facility] Comment on above: Result Comment: Canc elled via OM: Order cancelled - Patient discharged Performed By: #### L 500.4050, L100.0100 #### [facility] [address] [place], [address] Basic Metabolic Profile (BMP) Normal 136-145 [facility] Comment on above: Result Comment: Canc elled via OM: Order cancelled - Patient discharged Performed By: #### L 500.4050, L100.0100 #### [facility] [address] [place], [address] CBC W/Diff, Automatedon 01-1 0-2024 Absolute Neut Normal 2.0-7.7 [facility] Comment on above: Result Comment: Canc elled via OM: Order cancelled - Patient discharged Performed By: #### L 500.4050, L100.0100 #### [facility] [address] [place], [address] HCT Normal 40-54 [facility] Comment on above: Result Comment: Canc elled via OM: Order cancelled - Patient discharged Performed By: #### L 500.4050, L100.0100 #### [facility] [address] [place], [address] HGB Normal 13.0-16.5 [facility] Comment on above: Result Comment: Canc elled via OM: Order cancelled - Patient discharged Performed By: #### L 500.4050, L100.0100 #### [facility] [address] [place], [address] MCH Normal 27.0-32.0 [facility] Comment on above: Result Comment: Canc elled via OM: Order cancelled - Patient discharged Performed By: #### L 500.4050, L100.0100 #### [facility] [address] [place], [address] MCHC Normal 32-36 [facility] Comment on above: Result Comment: Canc elled via OM: Order cancelled - Patient discharged Performed By: #### L 500.4050, L100.0100 #### [facility] [address] [place], [address] MCV Normal 80-94 [facility] Comment on above: Result Comment: Canc elled via OM: Order cancelled - Patient discharged Performed By: #### L 500.4050, L100.0100 #### [facility] [address] [place], [address] NEUT% Normal 47-70 [facility] Comment on above: Result Comment: Canc elled via OM: Order cancelled - Patient discharged Performed By: #### L 500.4050, L100.0100 #### [facility] [address] [place], [address] PLT Normal 150-450 [facility] Comment on above: Result Comment: Canc elled via OM: Order cancelled - Patient discharged Performed By: #### L 500.4050, L100.0100 #### [facility] [address] [place], [address] RBC Normal 4.6-6.2 [facility] Comment on above: Result Comment: Canc elled via OM: Order cancelled - Patient discharged Performed By: #### L 500.4050, L100.0100 #### [facility] [address] [place], [address] RDW CV Normal 11.6-14.6 [facility] Comment on above: Result Comment: Canc elled via OM: Order cancelled - Patient discharged Performed By: #### L 500.4050, L100.0100 #### [facility] [address] [place], [address] RDW SD Normal 35.1-43.9 [facility] Comment on above: Result Comment: Canc elled via OM: Order cancelled - Patient discharged Performed By: #### L 500.4050, L100.0100 #### [facility] [address] [place], [address] WBC Normal 4.4-11.0 [facility] Comment on above: Result Comment: Canc elled via OM: Order cancelled - Patient discharged Performed By: #### L 500.4050, L100.0100 #### [facility] [address] [place], [address] Cardiology Visit Reporton Cardiology Visit Report [facility] [address] [place] [address] OFFICE VISIT Date of Service: 06/27/24 MR#: [id number] Acct: [id number] Name: EBEN CRUZ Rep #: [id number] : 1945 Provider: LUIZ hernandez Age/Sex: 79/M Location: [facility] Status: Signed HPI HPI History of Present Illness Details: Mr. Eben Cruz is an 79-year-old male who presents here for a cardiovascular follow-up visit. He was a direct transfer from [facility] for an NSTEMI on 09/23/2023. He originally presented to [facility] on 09/18/2023 for a planned elective total hip replacement with Dr. Schreiber. The procedure was noted to be fairly complicated and required wound VAC placement. Skilled rehab was recommended for discharge and the patient was in the process of transitioning to the [facility] TCU on 09/22/2023 however on the [...] discuss the case with Dr. Nichole at [facility] who accepted for transfer for complex [...] 40%. He was recently admitted and evaluated [facility] for carbon monoxide poisoning. 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 Normal [facility] Basic Metabolic Profile (BMP )on 06-26-2024 BUN Normal 7-18 [facility] Comment on above: Result Comment: Canc elled via OM: Order cancelled - Patient discharged Performed By: #### L 500.4050, L100.0100 #### [facility] [address] [place], [address] BUN/CRE Normal 10-20 [facility] Comment on above: Result Comment: Canc elled via OM: Order cancelled - Patient discharged Performed By: #### L 500.4050, L100.0100 #### [facility] [address] [place], [address] CA,Total Normal 8.5-10.1 [facility] Comment on above: Result Comment: Canc elled via OM: Order cancelled - Patient discharged Performed By: #### L 500.4050, L100.0100 #### [facility] [address] [place], [address] CL Normal 98-107 [facility] Comment on above: Result Comment: Canc elled via OM: Order cancelled - Patient discharged Performed By: #### L 500.4050, L100.0100 #### [facility] [address] [place], [address] CO2 Normal 21.0-32.0 [facility] Comment on above: Result Comment: Canc elled via OM: Order cancelled - Patient discharged Performed By: #### L 500.4050, L100.0100 #### [facility] [address] [place], [address] CREAT,SERUM Normal 0.70-1.30 [facility] Comment on above: Result Comment: Canc elled via OM: Order cancelled - Patient discharged Performed By: #### L 500.4050, L100.0100 #### [facility] [address] [place], [address] EST GFR Normal >60 [facility] Comment on above: Result Comment: Canc elled via OM: Order cancelled - Patient discharged Performed By: #### L 500.4050, L100.0100 #### [facility] [address] [place], [address] EST GFR - AA Normal >60 [facility] Comment on above: Result Comment: Canc elled via OM: Order cancelled - Patient discharged Performed By: #### L 500.4050, L100.0100 #### [facility] [address] [place], [address] GAP Normal 5-15 [facility] Comment on above: Result Comment: Canc elled via OM: Order cancelled - Patient discharged Performed By: #### L 500.4050, L100.0100 #### [facility] [address] [place], [address] GLU Normal 74-106 [facility] Comment on above: Result Comment: Canc elled via OM: Order cancelled - Patient discharged Performed By: #### L 500.4050, L100.0100 #### [facility] [address] [place], [address] Potassium Normal 3.5-5.1 [facility] Comment on above: Result Comment: Canc elled via OM: Order cancelled - Patient discharged Performed By: #### L 500.4050, L100.0100 #### [facility] [address] [place], [address] Basic Metabolic Profile (BMP) Normal 136-145 [facility] Comment on above: Result Comment: Canc elled via OM: Order cancelled - Patient discharged Performed By: #### L 500.4050, L100.0100 #### [facility] [address] [place], [address] CBC W/Diff, Automatedon 01-0 Absolute Neut Normal 2.0-7.7 [facility] Comment on above: Result Comment: Canc elled via OM: Order cancelled - Patient discharged Performed By: #### L 500.4050, L100.0100 #### [facility] [address] [place], [address] HCT Normal 40-54 [facility] Comment on above: Result Comment: Canc elled via OM: Order cancelled - Patient discharged Performed By: #### L 500.4050, L100.0100 #### [facility] [address] [place], [address] HGB Normal 13.0-16.5 [facility] Comment on above: Result Comment: Canc elled via OM: Order cancelled - Patient discharged Performed By: #### L 500.4050, L100.0100 #### [facility] [address] [place], [address] MCH Normal 27.0-32.0 [facility] Comment on above: Result Comment: Canc elled via OM: Order cancelled - Patient discharged Performed By: #### L 500.4050, L100.0100 #### [facility] [address] [place], [address] MCHC Normal 32-36 [facility] Comment on above: Result Comment: Canc elled via OM: Order cancelled - Patient discharged Performed By: #### L 500.4050, L100.0100 #### [facility] [address] [place], [address] MCV Normal 80-94 [facility] Comment on above: Result Comment: Canc elled via OM: Order cancelled - Patient discharged Performed By: #### L 500.4050, L100.0100 #### [facility] [address] [place], [address] NEUT% Normal 47-70 [facility] Comment on above: Result Comment: Canc elled via OM: Order cancelled - Patient discharged Performed By: #### L 500.4050, L100.0100 #### [facility] [address] [place], [address] PLT Normal 150-450 [facility] Comment on above: Result Comment: Canc elled via OM: Order cancelled - Patient discharged Performed By: #### L 500.4050, L100.0100 #### [facility] [address] [place], [address] RBC Normal 4.6-6.2 [facility] Comment on above: Result Comment: Canc elled via OM: Order cancelled - Patient discharged Performed By: #### L 500.4050, L100.0100 #### [facility] [address] [place], [address] RDW CV Normal 11.6-14.6 [facility] Comment on above: Result Comment: Canc elled via OM: Order cancelled - Patient discharged Performed By: #### L 500.4050, L100.0100 #### [facility] [address] [place], [address] RDW SD Normal 35.1-43.9 [facility] Comment on above: Result Comment: Canc elled via OM: Order cancelled - Patient discharged Performed By: #### L 500.4050, L100.0100 #### [facility] [address] [place], [address] WBC Normal 4.4-11.0 [facility] Comment on above: Result Comment: Canc elled via OM: Order cancelled - Patient discharged Performed By: #### L 500.4050, L100.0100 #### [facility] [address] [place], [address] Absolute neutrophil countOrd ered By: Chet Edmonds on 06-25-2024 Neutrophils (Bld) [#/Vol] 5.3 10*3/uL 2.0-7.7 [facility] Basic Metabolic Profile (BMP )on 06-25-2024 BUN/CRE 18.9 RATIO Normal 10-20 [facility] Comment on above: Performed By: #### L 501.2300, L500.2500, L100.0100, L501.5200 #### [facility] [address] [place], [address] CA,Total 8.9 mg/dL Normal 8.5-10.1 [facility] Comment on above: Performed By: #### L 501.2300, L500.2500, L100.0100, L501.5200 #### [facility] [address] [place], [address] Chloride [Moles/Vol] 104 mmol/L Normal 98-107 [facility] Comment on above: Performed By: #### L 501.2300, L500.2500, L100.0100, L501.5200 #### [facility] [address] [place], [address] CO2 [Moles/Vol] 25.0 mmol/L Normal 21.0-32.0 [facility] Comment on above: Performed By: #### L 501.2300, L500.2500, L100.0100, L501.5200 #### [facility] [address] [place], [address] Creatinine [Mass/Vol] 1.32 mg/dL High 0.70-1.30 [facility] Comment on above: Result Comment: The validity of the calculated GFR GFRAA in patients over 70 years has not been determined. Clinical correlation is essential. Performed By: #### L 501.2300, L500.2500, L100.0100, L501.5200 #### [facility] [address] [place], [address] ECRCL 47.18 ml/min Normal [facility] Comment on above: Performed By: #### L 501.2300, L500.2500, L100.0100, L501.5200 #### [facility] [address] [place], [address] EST GFR - AA 67 mL/min Normal >60 [facility] Comment on above: Result Comment: Afri can Yemeni GFR Calc Performed By: #### L 501.2300, L500.2500, L100.0100, L501.5200 #### [facility] [address] [place], [address] GAP 7 Normal 5-15 [facility] Comment on above: Performed By: #### L 501.2300, L500.2500, L100.0100, L501.5200 #### [facility] [address] [place], [address] GFR/1.73 sq M.predicted among non-blacks MDRD (S/P/Bld) [Vol rate/Area] 55 mL/min/{1.73_m2} Low >60 [facility] Comment on above: Result Comment: Non- GFR Calc Performed By: #### L 501.2300, L500.2500, L100.0100, L501.5200 #### [facility] [address] [place], [address] Glucose [Mass/Vol] 109 mg/dL High 74-106 [facility] Comment on above: Result Comment: Fast ing Glucose result from 100 to 125 mg/dL suggests IMPAIRED HOMEOSTASIS per A.D.A. criteria. Performed By: #### L 501.2300, L500.2500, L100.0100, L501.5200 #### [facility] [address] [place], [address] Potassium [Moles/Vol] 4.2 mmol/L Normal 3.5-5.1 [facility] Comment on above: Performed By: #### L 501.2300, L500.2500, L100.0100, L501.5200 #### [facility] [address] [place], [address] Sodium [Moles/Vol] 136 mmol/L Normal 136-145 [facility] Comment on above: Performed By: #### L 501.2300, L500.2500, L100.0100, L501.5200 #### [facility] [address] [place], [address] Urea nitrogen [Mass/Vol] 25 mg/dL High 7- [facility] Comment on above: Performed By: #### L 501.2300, L500.2500, L100.0100, L501.5200 #### [facility] [address] [place], [address] Basophil percentageOrdered B y: Chet Edmonds on 06-25-2024 Basophils/100 WBC (Bld) 0.4 % 0-1 [facility] Blood urea nitrogen (BUN)/cr eatinine ratioOrdered By: Chet Edmonds on 06-25-2024 Urea nitrogen/Creatinine [Mass ratio] 18.9 mg/mg 10- [facility] CBC W/Diff, Automatedon Absolute Lymph 1.56 X10 3/uL Normal 0.83-4.51 [facility] Comment on above: Performed By: #### L 501.2300, L500.2500, L100.0100, L501.5200 #### [facility] [address] [place], [address] Absolute Neut 5.3 X10 3/uL Normal 2.0-7.7 [facility] Comment on above: Performed By: #### L 501.2300, L500.2500, L100.0100, L501.5200 #### [facility] [address] [place], [address] Basophils/100 WBC (Bld) 0.4 % Normal 0-1 [facility] Comment on above: Performed By: #### L 501.2300, L500.2500, L100.0100, L501.5200 #### [facility] [address] [place], [address] Eosinophils/100 WBC (Bld) 2.1 % Normal 0-5 [facility] Comment on above: Performed By: #### L 501.2300, L500.2500, L100.0100, L501.5200 #### [facility] [address] [place], [address] Erythrocyte distribution width (RBC) [Ratio] 13.6 % Normal 11.6-14.6 [facility] Comment on above: Performed By: #### L 501.2300, L500.2500, L100.0100, L501.5200 #### [facility] [address] [place], [address] Hematocrit (Bld) [Volume fraction] 46.5 % Normal 40-54 [facility] Comment on above: Performed By: #### L 501.2300, L500.2500, L100.0100, L501.5200 #### [facility] [address] [place], [address] Hemoglobin (Bld) [Mass/Vol] 15.0 g/dL Normal 13.0-16.5 [facility] Comment on above: Performed By: #### L 501.2300, L500.2500, L100.0100, L501.5200 #### [facility] [address] [place], [address] IG% 0.500 Normal 0.0-0.9 [facility] Comment on above: Result Comment: IG% - Immature Granulocytes (promyelocytes, myelocytes and metamyelocytes) > 1% indicates that a LEFT SHIFT is Present. Performed By: #### L 501.2300, L500.2500, L100.0100, L501.5200 #### [facility] [address] [place], [address] Lymphocytes/100 WBC (Bld) 20.0 % Normal 19-41 [facility] Comment on above: Performed By: #### L 501.2300, L500.2500, L100.0100, L501.5200 #### [facility] [address] [place], [address] MCH (RBC) [Entitic mass] 30.4 pg Normal 27.0-32.0 [facility] Comment on above: Performed By: #### L 501.2300, L500.2500, L100.0100, L501.5200 #### [facility] [address] [place], [address] MCHC (RBC) [Mass/Vol] 32.3 g/dL Normal 32-36 [facility] Comment on above: Performed By: #### L 501.2300, L500.2500, L100.0100, L501.5200 #### [facility] [address] [place], [address] MCV (RBC) [Entitic vol] 94.3 fL High 80-94 [facility] Comment on above: Performed By: #### L 501.2300, L500.2500, L100.0100, L501.5200 #### [facility] [address] [place], [address] Monocytes/100 WBC (Bld) 8.9 % Normal 0-10 [facility] Comment on above: Performed By: #### L 501.2300, L500.2500, L100.0100, L501.5200 #### [facility] [address] [place], [address] Neutrophils/100 WBC (Bld) 68.1 % Normal 47-70 [facility] Comment on above: Performed By: #### L 501.2300, L500.2500, L100.0100, L501.5200 #### [facility] [address] [place], [address] Nucleated RBC (Bld) [#/Vol] 0 10*3/uL Normal 0-5 [facility] Comment on above: Performed By: #### L 501.2300, L500.2500, L100.0100, L501.5200 #### [facility] [address] [place], [address] Platelet mean volume (Bld) [Entitic vol] 11.4 fL Normal 6.2-12.0 [facility] Comment on above: Performed By: #### L 501.2300, L500.2500, L100.0100, L501.5200 #### [facility] [address] [place], [address] Platelets (Bld) [#/Vol] 187 10*3/uL Normal 150-450 [facility] Comment on above: Performed By: #### L 501.2300, L500.2500, L100.0100, L501.5200 #### [facility] [address] [place], [address] RBC (Bld) [#/Vol] 4.93 10*6/uL Normal 4.6-6.2 [facility] Comment on above: Performed By: #### L 501.2300, L500.2500, L100.0100, L501.5200 #### [facility] [address] [place], [address] RDW SD 46.7 fl High 35.1-43.9 [facility] Comment on above: Performed By: #### L 501.2300, L500.2500, L100.0100, L501.5200 #### [facility] [address] [place], [address] WBC (Bld) [#/Vol] 7.8 10*3/uL Normal 4.4-11.0 [facility] Comment on above: Performed By: #### L 501.2300, L500.2500, L100.0100, L501.5200 #### [facility] [address] [place], [address] Carbon dioxide measurementOr dered By: Chet Edmonds on 06-25-2024 CO2 [Moles/Vol] 25.0 mmol/L 21.0-32.0 [facility] Carboxyhemoglobin (Bld) [Mas s/Vol]Ordered By: Chet Edmonds on 06-25-2024 Venous Blood Carboxyhemoglobin 1.6 % High 0.0-1.5 [facility] Chloride measurementOrdered By: Chet Edmonds on 06-25-2024 Chloride [Moles/Vol] 104 mmol/L 98-107 [facility] Eosinophil percentageOrdered By: Chet Edmonds on 06-25-2024 Eosinophils/100 WBC (Bld) 2.1 % 0-5 [facility] Erythrocyte distribution wid th ratioOrdered By: Chet Edmonds on 06-25-2024 Erythrocyte distribution width (RBC) [Ratio] 13.6 % 11.6-14.6 [facility] Erythrocyte distribution wid th standard deviationOrdered By: Chet Edmonds on 06-25-2024 Erythrocyte distribution width (RBC) [Entitic vol] 46.7 fL High 35.1-43.9 [facility] Estimated glomerular filtrat ion rate (GFR) AmericanOrdered By: Chet Edmonds on 06-25-2024 Estimated GFR (MDRD) Amer 67 mL/min >60 [facility] Comment on above: GFR Calc Estimation of creatinine eugene aranceOrdered By: Chet Edmonds on 06-25-2024 Estimated Creatinine Clearance Calc 47.18 ml/min [facility] Glomerular filtration rate ( GFR) estimationOrdered By: Chet Edmonds on 06-25-2024 Estimated GFR (MDRD) Non-Af Amer 55 mL/min Low >60 [facility] Comment on above: Non- GFR Calc Glucose measurementOrdered B y: Chet Edmonds on 06-25-2024 Glucose [Mass/Vol] 109 mg/dL High 74-106 [facility] Comment on above: Fasting Glucose resu lt from 100 to 125 mg/dL suggests IMPAIRED HOMEOSTASIS per A.D.A. criteria. Hematocrit Auto (Bld) [Volum e fraction]Ordered By: Chet Edmonds on 06-25-2024 Hematocrit (Bld) [Volume fraction] 46.5 % 40-54 [facility] Hemoglobin measurementOrdere d By: Chet Edmonds on 06-25-2024 Hemoglobin (Bld) [Mass/Vol] 15.0 g/dL 13.0-16.5 [facility] Immature granulocytes/100 WB C Auto (Bld)Ordered By: Chet Edmonds on 06-25-2024 Immature granulocytes/100 WBC (Bld) 0.500 % 0.0-0.9 [facility] Comment on above: IG% - Immature Granu locytes (promyelocytes, myelocytes and metamyelocytes) > 1% indicates that a LEFT SHIFT is Present. L511.0135on 06-25-2024 COHb 1.6 High 0.0-1.5 [facility] Comment on above: Performed By: #### L 501.2300, L500.2500, L100.0100, L501.5200 #### [facility] Laboratory [address] [place], [place], [id number] Lymphocytes Auto (Unsp spec) [#/Vol]Ordered By: Chet Edmonds on 06-25-2024 Lymphocytes (Bld) [#/Vol] 1.56 10*3/uL 0.83-4.51 [facility] Lymphocytes/100 WBC Auto (Un sp spec)Ordered By: Chet Edmonds on 06-25-2024 Lymphocytes/100 WBC (Bld) 20.0 % 19-41 [facility] MCV (mean corpuscular volume ) determinationOrdered By: Chet Edmonds on 06-25-2024 MCV (RBC) [Entitic vol] 94.3 fL High 80-94 [facility] Magnesiumon 06-25-2024 Magnesium [Mass/Vol] 2.5 mg/dL Normal 1.6-2.6 [facility] Comment on above: Performed By: #### L 501.2300, L500.2500, L100.0100, L501.5200 #### [facility] Laboratory [address] [place], [place], [id number] Magnesium measurementOrdered By: Chet Edmonds on 06-25-2024 Magnesium [Mass/Vol] 2.5 mg/dL 1.6-2.6 [facility] Mean corpuscular hemoglobin (MCH) determinationOrdered By: Chet Edmonds on 06-25-2024 MCH (RBC) [Entitic mass] 30.4 pg 27.0-32.0 [facility] Mean corpuscular hemoglobin concentration (MCHC) determinationOrdered By: Chet Edmonds on 06-25-2024 MCHC (RBC) [Mass/Vol] 32.3 g/dL 32-36 [facility] Mean platelet volume determi nationOrdered By: Chet Edmonds on 06-25-2024 Platelet mean volume (Bld) [Entitic vol] 11.4 fL 6.2-12.0 [facility] Monocyte percentageOrdered B y: Chet Edmonds on 06-25-2024 Monocytes/100 WBC (Bld) 8.9 % 0-10 [facility] Neutrophil percentageOrdered By: Chet Edmonds on 06-25-2024 Neutrophils/100 WBC (Bld) 68.1 % 47-70 [facility] Nucleated red blood cell per centageOrdered By: Chet Edmonds on 06-25-2024 Nucleated RBC/100 WBC (Bld) [Ratio] 0 % 0-5 [facility] Phosphoruson 06-25-2024 Phosphate [Mass/Vol] 3.3 mg/dL Normal 2.5-4.9 [facility] Comment on above: Performed By: #### L 501.2300, L500.2500, L100.0100, L501.5200 #### [facility] Laboratory [address] [place] [address]. [place], [address] Phosphorus measurementOrdere d By: Chet Edmonds on 06-25-2024 Phosphorus Level 3.3 mg/dL 2.5-4.9 [facility] Platelet countOrdered By: Yang Edmonds on 06-25-2024 Platelets (Bld) [#/Vol] 187 10*3/uL 150-450 [facility] Potassium measurementOrdered By: Chet Edmonds on 06-25-2024 Potassium [Moles/Vol] 4.2 mmol/L 3.5-5.1 [facility] RBC Auto (Bld) [#/Vol]Ordere d By: Chet Edmonds on 06-25-2024 RBC (Bld) [#/Vol] 4.93 10*6/uL 4.6-6.2 [facility] Serum anion gap measurementO rdered By: Chet Edmonds on 06-25-2024 Anion gap [Moles/Vol] 7 mmol/L 5-15 [facility] Serum or plasma calcium kian urement (mass/volume)Ordered By: Chet Edmonds on 06-25-2024 Calcium [Mass/Vol] 8.9 mg/dL 8.5-10.1 [facility] Serum or plasma creatinine m easurement (mass/volume)Ordered By: Chet Edmonds on 06-25-2024 Creatinine [Mass/Vol] 1.32 mg/dL High 0.70-1.30 [facility] Comment on above: The validity of the calculated GFR & GFRAA in patients over 70 years has not been determined. Clinical correlation is essential. Serum or plasma urea nitroge n measurement (mass/volume)Ordered By: Chet Edmonds on 06-25-2024 Urea nitrogen [Mass/Vol] 25 mg/dL High 7-18 [facility] Sodium levelOrdered By: Aristides Edmonds on 06-25-2024 Sodium [Moles/Vol] 136 mmol/L 136-145 [facility] White blood cell (WBC) count Ordered By: Chet Edmonds on 06-25-2024 WBC (Bld) [#/Vol] 7.8 10*3/uL 4.4-11.0 [facility] Albumin to globulin ratioOrd ered By: Sarah Perrin on 06-24-2024 Albumin/Globulin [Mass ratio] 1.0 {ratio} 0.9-2.4 [facility] Bilirubin, totalOrdered By: Sarah Perrin on 06-24-2024 Bilirubin [Mass/Vol] 0.90 mg/dL 0.20-1.00 [facility] Comment on above: For patients on eltr ombopag therapy, use of Dimension [place] TBIL is not recommended. CBC W/Diff, Automatedon Absolute Lymph 1.73 X10 3/uL Normal 0.83-4.51 [facility] Comment on above: Performed By: #### L 500.4050, L100.0100 #### [facility] Laboratory [address] [place], [address] Absolute Neut 6.0 X10 3/uL Normal 2.0-7.7 [facility] Comment on above: Performed By: #### L 500.4050, L100.0100 #### [facility] Laboratory [address] [place], [address] Basophils/100 WBC (Bld) 0.6 % Normal 0-1 [facility] Comment on above: Performed By: #### L 500.4050, L100.0100 #### [facility] Laboratory [address] [place], [address] Eosinophils/100 WBC (Bld) 1.0 % Normal 0-5 [facility] Comment on above: Performed By: #### L 500.4050, L100.0100 #### [facility] Laboratory [address] [place], [address] Erythrocyte distribution width (RBC) [Ratio] 13.6 % Normal 11.6-14.6 [facility] Comment on above: Performed By: #### L 500.4050, L100.0100 #### [facility] Laboratory [address] [place], [address] Hematocrit (Bld) [Volume fraction] 45.8 % Normal 40-54 [facility] Comment on above: Performed By: #### L 500.4050, L100.0100 #### [facility] Laboratory [address] [place], [address] Hemoglobin (Bld) [Mass/Vol] 14.9 g/dL Normal 13.0-16.5 [facility] Comment on above: Performed By: #### L 500.4050, L100.0100 #### [facility] Laboratory [address] [place], [address] IG% 0.300 Normal 0.0-0.9 [facility] Comment on above: Result Comment: IG% - Immature Granulocytes (promyelocytes, myelocytes and metamyelocytes) > 1% indicates that a LEFT SHIFT is Present. Performed By: #### L 500.4050, L100.0100 #### [facility] Laboratory [address] [place], [address] Lymphocytes/100 WBC (Bld) 20.0 % Normal 19-41 [facility] Comment on above: Performed By: #### L 500.4050, L100.0100 #### [facility] Laboratory [address] [place], [address] MCH (RBC) [Entitic mass] 30.4 pg Normal 27.0-32.0 [facility] Comment on above: Performed By: #### L 500.4050, L100.0100 #### [facility] Laboratory [address] [place], [address] MCHC (RBC) [Mass/Vol] 32.5 g/dL Normal 32-36 [facility] Comment on above: Performed By: #### L 500.4050, L100.0100 #### [facility] Laboratory [address] [place], [address] MCV (RBC) [Entitic vol] 93.5 fL Normal 80-94 [facility] Comment on above: Performed By: #### L 500.4050, L100.0100 #### [facility] Laboratory [address] [place], [address] Monocytes/100 WBC (Bld) 8.4 % Normal 0-10 [facility] Comment on above: Performed By: #### L 500.4050, L100.0100 #### [facility] Laboratory [address] [place], [address] Neutrophils/100 WBC (Bld) 69.7 % Normal 47-70 [facility] Comment on above: Performed By: #### L 500.4050, L100.0100 #### [facility] Laboratory [address] [place], [address] Nucleated RBC (Bld) [#/Vol] 0 10*3/uL Normal 0-5 [facility] Comment on above: Performed By: #### L 500.4050, L100.0100 #### [facility] Laboratory [address] [place], [address] Platelet mean volume (Bld) [Entitic vol] 11.0 fL Normal 6.2-12.0 [facility] Comment on above: Performed By: #### L 500.4050, L100.0100 #### [facility] Laboratory [address] [place], [address] Platelets (Bld) [#/Vol] 187 10*3/uL Normal 150-450 [facility] Comment on above: Performed By: #### L 500.4050, L100.0100 #### [facility] Laboratory [address] [place], [address] RBC (Bld) [#/Vol] 4.90 10*6/uL Normal 4.6-6.2 [facility] Comment on above: Performed By: #### L 500.4050, L100.0100 #### [facility] Laboratory [address] [place], [address] RDW SD 46.8 fl High 35.1-43.9 [facility] Comment on above: Performed By: #### L 500.4050, L100.0100 #### [facility] Laboratory [address] [place], [address] WBC (Bld) [#/Vol] 8.7 10*3/uL Normal 4.4-11.0 [facility] Comment on above: Performed By: #### L 500.4050, L100.0100 #### [facility] Laboratory [address] [place], [address] Comprehensive Metabolic Prof ilon 06-24-2024 Albumin [Mass/Vol] 2.9 g/dL Low 3.2-5.0 [facility] Comment on above: Performed By: #### L 500.4050, L100.0100 #### [facility] Laboratory [address] [place], [address] Albumin/Globulin [Mass ratio] 1.0 {ratio} Normal 0.9-2.4 [facility] Comment on above: Performed By: #### L 500.4050, L100.0100 #### [facility] Laboratory [address] [place], [address] ALK P 103 U/L Normal 45-117 [facility] Comment on above: Performed By: #### L 500.4050, L100.0100 #### [facility] Laboratory [address] [place], [address] ALT [Catalytic activity/Vol] 14 U/L Low 16-61 [facility] Comment on above: Performed By: #### L 500.4050, L100.0100 #### [facility] Laboratory [address] [place], [address] AST [Catalytic activity/Vol] 20 U/L Normal 15-37 [facility] Comment on above: Performed By: #### L 500.4050, L100.0100 #### [facility] Laboratory [address] [place], [address] Bilirubin [Mass/Vol] 0.90 mg/dL Normal 0.20-1.00 [facility] Comment on above: Result Comment: For patients on eltrombopag therapy, use of Dimension [place] TBIL is not recommended. Performed By: #### L 500.4050, L100.0100 #### [facility] Laboratory [address] [place], [address] BUN/CRE 15.7 RATIO Normal 10-20 [facility] Comment on above: Performed By: #### L 500.4050, L100.0100 #### [facility] Laboratory [address] [place], [address] CA,Total 8.9 mg/dL Normal 8.5-10.1 [facility] Comment on above: Performed By: #### L 500.4050, L100.0100 #### [facility] Laboratory [address] [place], [address] Chloride [Moles/Vol] 105 mmol/L Normal 98-107 [facility] Comment on above: Performed By: #### L 500.4050, L100.0100 #### [facility] Laboratory [address] [place], [address] CO2 [Moles/Vol] 29.0 mmol/L Normal 21.0-32.0 [facility] Comment on above: Performed By: #### L 500.4050, L100.0100 #### [facility] Laboratory [address] [place], [address] Creatinine [Mass/Vol] 1.34 mg/dL High 0.70-1.30 [facility] Comment on above: Result Comment: The validity of the calculated GFR GFRAA in patients over 70 years has not been determined. Clinical correlation is essential. Performed By: #### L 500.4050, L100.0100 #### [facility] Laboratory [address] [place], [address] ECRCL 46.43 ml/min Normal [facility] Comment on above: Performed By: #### L 500.4050, L100.0100 #### [facility] Laboratory [address] [place], [address] EST GFR - AA 66 mL/min Normal >60 [facility] Comment on above: Result Comment: Afri can Yemeni GFR Calc Performed By: #### L 500.4050, L100.0100 #### [facility] Laboratory [address] [place], [address] GAP 3 Low 5-15 [facility] Comment on above: Performed By: #### L 500.4050, L100.0100 #### [facility] Laboratory [address] [place], [address] GFR/1.73 sq M.predicted among non-blacks MDRD (S/P/Bld) [Vol rate/Area] 54 mL/min/{1.73_m2} Low >60 [facility] Comment on above: Result Comment: Non- GFR Calc Performed By: #### L 500.4050, L100.0100 #### [facility] Laboratory [address] [place], [address] Globulin (S) [Mass/Vol] 3.0 g/dL Normal 2.2-4.2 [facility] Comment on above: Performed By: #### L 500.4050, L100.0100 #### [facility] Laboratory [address] [place], [address] Glucose [Mass/Vol] 141 mg/dL High 74-106 [facility] Comment on above: Result Comment: Fast ing Glucose result greater than or equal to 126 mg/dL suggests DIABETES MELLITUS per A.D.A. criteria. Performed By: #### L 500.4050, L100.0100 #### [facility] Laboratory [address] [place], [address] Potassium [Moles/Vol] 4.1 mmol/L Normal 3.5-5.1 [facility] Comment on above: Performed By: #### L 500.4050, L100.0100 #### [facility] Laboratory [address] [place], [address] Sodium [Moles/Vol] 138 mmol/L Normal 136-145 [facility] Comment on above: Performed By: #### L 500.4050, L100.0100 #### [facility] Laboratory [address] [place], [address] T PROT 5.9 g/dL Low 6.4-8.2 [facility] Comment on above: Performed By: #### L 500.4050, L100.0100 #### [facility] Laboratory [address] [place], [address] Urea nitrogen [Mass/Vol] 21 mg/dL High 7-18 [facility] Comment on above: Performed By: #### L 500.4050, L100.0100 #### [facility] Laboratory [address] [place], [address] Consultation - Cardiologyon 06-24-2024 Consultation - Cardiology [facility] Medical Records Department [address] [place] [address] Consultation - Cardiology 06/24/24 0930 MR#: [id number] Acct: [id number] Name: EBEN CRUZ Mohinder Rep #: [id number] : 1945 79 From: Gregory Kruse MD PCP: Care Physician,No Primary Status:ADM ZOË Location: [place] [address] Assessment Plan Assessment/Plan (1) Accidental poisoning by [...] 1.34 correlate with this appropriate dosing. (4) assisted current use of anticoagulant therapy: PLAN: Patient [...] September 2023. He was cathed here at [facility] and they were unsuccessful in revascularizing the calcified proximal circumflex. He (more content not included)... Normal [facility] Laboratory - Chemistry and C hemistry - challengeOrdered By: Sarah Perrin on 06-24-2024 AST [Catalytic activity/Vol] 20 U/L 15-37 [facility] Serum globulin measurementOr dered By: Sarah Perrin on 06-24-2024 Globulin (S) [Mass/Vol] 3.0 g/dL 2.2-4.2 [facility] Serum or plasma alanine miller otransferase (ALT) measurementOrdered By: Sarah Perrin on 06-24-2024 ALT [Catalytic activity/Vol] 14 U/L Low 16-61 [facility] Serum or plasma albumin kian urement (mass/volume)Ordered By: Sarah Perrin on 06-24-2024 Albumin [Mass/Vol] 2.9 g/dL Low 3.2-5.0 [facility] Serum or plasma alkaline kaiden sphatase measurementOrdered By: Sarah Perrin on 06-24-2024 ALP [Catalytic activity/Vol] 103 U/L 45-117 [facility] Total proteinOrdered By: Nikole Perrin on 06-24-2024 Protein [Mass/Vol] 5.9 g/dL Low 6.4-8.2 [facility] 12 Lead EKGon 06-23-2024 12 Lead EKG [facility] Cardiovascular Services [address] [place] [address] 12 Lead EKG 06/23/24 1318 MR#: [id number] Acct: [id number] Name: EBEN CRUZ Rep #: [id number] : 1945 79 From: Gregory Kruse MD Attending Dr: Dr. Chet Edmonds MD Status: ADM ZOË Ordering Dr: Mark Go DO Date: 06/23/24 Location: [facility] Sex: M C Admitted: 06/23/24 Test [...] ECG baseline artifact Confirmed by Gregory Kruse ([id number]), editorial clerk SHANIQUA COHEN ([id number]) on 06/25/2024 8:24:11 AM Referred By: Mark Go Confirmed By: Gregory Kruse 06/25/24 0824 Date Gregory Kruse MD CC: Dr. Chet Edmonds MD; Dr. Mark Go DO; No Primary Care Physician Signed Normal [facility] BNP (brain natriuretic pepti de measurement)Ordered By: Mark Go on 06-23-2024 Natriuretic peptide B (Bld) [Mass/Vol] 407.2 pg/mL High 0-100 [facility] BNP,B-Type NATRIURETIC PEPTI Robert 06-23-2024 Natriuretic peptide B (Bld) [Mass/Vol] 407.2 pg/mL High 0-100 [facility] Comment on above: Performed By: #### L 501.4020 #### [facility] Laboratory [address] [place], [address] Basic Metabolic Profile (BMP )on 01-06-2025 BUN/CRE 14.6 RATIO Normal 10-20 [facility] Comment on above: Order Comment: Comme nts: SPECIMEN #3 'TROP' Serial specimen #1, #2 or #3: 3 Performed By: #### L 501.4020 #### [facility] Laboratory [address] [place], [address] CA,Total 9.1 mg/dL Normal 8.5-10.1 [facility] Comment on above: Order Comment: Comme nts: SPECIMEN #3 'TROP' Serial specimen #1, #2 or #3: 3 Performed By: #### L 501.4020 #### [facility] Laboratory [address] [place], [address] Chloride [Moles/Vol] 104 mmol/L Normal 98-107 [facility] Comment on above: Order Comment: Comme nts: SPECIMEN #3 'TROP' Serial specimen #1, #2 or #3: 3 Performed By: #### L 501.4020 #### [facility] Laboratory [address] [place], [address] CO2 [Moles/Vol] 25.0 mmol/L Normal 21.0-32.0 [facility] Comment on above: Order Comment: Comme nts: SPECIMEN #3 'TROP' Serial specimen #1, #2 or #3: 3 Performed By: #### L 501.4020 #### [facility] Laboratory [address] [place], [address] Creatinine [Mass/Vol] 1.57 mg/dL High 0.70-1.30 [facility] Comment on above: Order Comment: Comme nts: SPECIMEN #3 'TROP' Serial specimen #1, #2 or #3: 3 Result Comment: The validity of the calculated GFR GFRAA in patients over 70 years has not been determined. Clinical correlation is essential. Performed By: #### L 501.4020 #### [facility] Laboratory [address] [place], [address] ECRCL 40.40 ml/min Normal [facility] Comment on above: Order Comment: Comme nts: SPECIMEN #3 'TROP' Serial specimen #1, #2 or #3: 3 Performed By: #### L 501.4020 #### [facility] [address] [place], [address] EST GFR - AA 55 mL/min Low >60 [facility] Comment on above: Order Comment: Comme nts: SPECIMEN #3 'TROP' Serial specimen #1, #2 or #3: 3 Result Comment: Afri can Yemeni GFR Calc Performed By: #### L 501.4020 #### [facility] Laboratory [address] [place], [address] GAP 8 Normal 5-15 [facility] Comment on above: Order Comment: Comme nts: SPECIMEN #3 'TROP' Serial specimen #1, #2 or #3: 3 Performed By: #### L 501.4020 #### [facility] Laboratory [address] [place], [address] GFR/1.73 sq M.predicted among non-blacks MDRD (S/P/Bld) [Vol rate/Area] 45 mL/min/{1.73_m2} Low >60 [facility] Comment on above: Order Comment: Comme nts: SPECIMEN #3 'TROP' Serial specimen #1, #2 or #3: 3 Result Comment: Non- GFR Calc Performed By: #### L 501.4020 #### [facility] Laboratory [address] [place], [address] Glucose [Mass/Vol] 124 mg/dL High 74-106 [facility] Comment on above: Order Comment: Comme nts: SPECIMEN #3 'TROP' Serial specimen #1, #2 or #3: 3 Result Comment: Fast ing Glucose result from 100 to 125 mg/dL suggests IMPAIRED HOMEOSTASIS per A.D.A. criteria. Performed By: #### L 501.4020 #### [facility] [address] [place], [address] Potassium [Moles/Vol] 3.9 mmol/L Normal 3.5-5.1 [facility] Comment on above: Order Comment: Comme nts: SPECIMEN #3 'TROP' Serial specimen #1, #2 or #3: 3 Performed By: #### L 501.4020 #### [facility] Laboratory [address] [place], [address] Sodium [Moles/Vol] 137 mmol/L Normal 136-145 [facility] Comment on above: Order Comment: Comme nts: SPECIMEN #3 'TROP' Serial specimen #1, #2 or #3: 3 Performed By: #### L 501.4020 #### [facility] [address] [place], [address] Urea nitrogen [Mass/Vol] 23 mg/dL High 7-18 [facility] Comment on above: Order Comment: Comme nts: SPECIMEN #3 'TROP' Serial specimen #1, #2 or #3: 3 Performed By: #### L 501.4020 #### [facility] [address] [place], [address] CBC W/Diff, Automatedon 01-0 6-2024 Absolute Lymph 0.92 X10 3/uL Normal 0.83-4.51 [facility] Comment on above: Performed By: #### L 501.4020 #### [facility] [address] [place], [address] Absolute Neut 7.9 X10 3/uL High 2.0-7.7 [facility] Comment on above: Performed By: #### L 501.4020 #### [facility] [address] [place], [address] Basophils/100 WBC (Bld) 0.5 % Normal 0-1 [facility] Comment on above: Performed By: #### L 501.4020 #### [facility] [address] [place], [address] Eosinophils/100 WBC (Bld) 0.4 % Normal 0-5 [facility] Comment on above: Performed By: #### L 501.4020 #### [facility] [address] [place], [address] Erythrocyte distribution width (RBC) [Ratio] 13.7 % Normal 11.6-14.6 [facility] Comment on above: Performed By: #### L 501.4020 #### [facility] [address] [place], [address] Hematocrit (Bld) [Volume fraction] 50.0 % Normal 40-54 [facility] Comment on above: Performed By: #### L 501.4020 #### [facility] [address] [place], [address] Hemoglobin (Bld) [Mass/Vol] 16.4 g/dL Normal 13.0-16.5 [facility] Comment on above: Performed By: #### L 501.4020 #### [facility] [address] [place], [address] IG% 0.600 Normal 0.0-0.9 [facility] Comment on above: Result Comment: IG% - Immature Granulocytes (promyelocytes, myelocytes and metamyelocytes) > 1% indicates that a LEFT SHIFT is Present. Performed By: #### L 501.4020 #### [facility] [address] [place], [address] Lymphocytes/100 WBC (Bld) 9.6 % Low 19-41 [facility] Comment on above: Performed By: #### L 501.4020 #### [facility] [address] [place], [address] MCH (RBC) [Entitic mass] 31.1 pg Normal 27.0-32.0 [facility] Comment on above: Performed By: #### L 501.4020 #### [facility] [address] [place], [address] MCHC (RBC) [Mass/Vol] 32.8 g/dL Normal 32-36 [facility] Comment on above: Performed By: #### L 501.4020 #### [facility] [address] [place], [address] MCV (RBC) [Entitic vol] 94.7 fL High 80-94 [facility] Comment on above: Performed By: #### L 501.4020 #### [facility] [address] [place], [address] Monocytes/100 WBC (Bld) 6.3 % Normal 0-10 [facility] Comment on above: Performed By: #### L 501.4020 #### [facility] [address] [place], [address] Neutrophils/100 WBC (Bld) 82.6 % High 47-70 [facility] Comment on above: Performed By: #### L 501.4020 #### [facility] [address] [place], [address] Nucleated RBC (Bld) [#/Vol] 0 10*3/uL Normal 0-5 [facility] Comment on above: Performed By: #### L 501.4020 #### [facility] [address] [place], [address] Platelet mean volume (Bld) [Entitic vol] 10.9 fL Normal 6.2-12.0 [facility] Comment on above: Performed By: #### L 501.4020 #### [facility] [address] [place], [address] Platelets (Bld) [#/Vol] 193 10*3/uL Normal 150-450 [facility] Comment on above: Performed By: #### L 501.4020 #### [facility] [address] [place], [address] RBC (Bld) [#/Vol] 5.28 10*6/uL Normal 4.6-6.2 [facility] Comment on above: Performed By: #### L 501.4020 #### [facility] [address] [place], [address] RDW SD 47.8 fl High 35.1-43.9 [facility] Comment on above: Performed By: #### L 501.4020 #### [facility] [address] [place], [address] WBC (Bld) [#/Vol] 9.6 10*3/uL Normal 4.4-11.0 [facility] Comment on above: Performed By: #### L 501.4020 #### [facility] [address] [place], [address] Chest PA and Lateralon 06-23 Chest PA and Lateral [facility] [address] [place] [address] Chest PA and Lateral MR#: [id number] Acct: [id number] Name: EBEN CRUZ Rep #: [id number] : 1945 M 79 From: Black herrera MD PCP: Care Physician,No Primary Status: [facility] ER Study: Chest PA and Lateral Date of Exam: 06/23/24 Exam# [id number] Ordering Dr: Mark Go DO [id number] INDICATION: Dyspnea EXAMINATION/TECHNIQUE: X-RAY - XR Chest [...] Mark Go, DO; No Primary Care Physician Preschool Paraprofessional: Signed Normal [facility] Echo Complete W/ Contraston 06-23-2024 Echo Complete W/ Contrast [facility] [address] [place] [address] Echo Complete W/ Contrast 06/24/24 0858 MR#: [id number] Acct: [id number] Name: EBEN CRUZ Rep #: [id number] : 1945 79 From: Don Parker MD [...] Referring Physician: Mark Go Performed By: Barbara Guiterrez RDCS 06/24/24 1607 Date Don Parker MD CC: Dr. Bret Green DO; Dr. Chet Edmonds MD; Dr. Mark Go DO; No Primary Care Physician Date Dictated: 06/24/24 0858 Date Transcribed: 06/24/241606 Preschool Paraprofessional: Signed Normal [facility] Emergency Department Summary on 06-23-2024 Emergency Department Summary [facility] Medical Records Department [address] [place] [address] Emergency Department Summary 06/23/24 MR#: [id number] Acct: [id number] Name: EBEN CRUZ Rep #: [id number] : 1945 79 From: Mark Go DO [...] nausea or vomiting. Patient denies any palpitations. [facility] Medical History Atrial fibrillation with rapid ventricular [...] Reports m (more content not included)... 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 [facility] Medical History GERD (gastroesophageal reflux disease) Chronic [...] sclerae. Ea (more content not included)... Normal [facility] International normalized rat io (INR) calculationOrdered By: Mark Go on 06-23-2024 INR Coag (Bld) [Relative time] 1.3 {INR} [facility] L501.4020on 06-23-2024 TROPONIN-I HS 2084 pg/mL Invalid Interpretation Code 3.0-78.0 [facility] Comment on above: Order Comment: 'TROP ' Serial specimen #1, #2 or #3: 4 Result Comment: Crit ical Result(s) Called at: 23:29:29 06/23/2024 by: MARIAN SHEN to VILMA ROSARIO. Results read back by same. Please Note: New Test Units and Gender Specific Reference Ranges. For more information see Policy Stat Procedure [place] High Sensitivity Troponin (TNIH) and attachments. Performed By: #### L 501.4020 #### [facility] [address] [place], [address] TROPONIN-I HS 1333 pg/mL Invalid Interpretation Code 3.0-78.0 [facility] Comment on above: Order Comment: Comme nts: SPECIMEN #3 'TROP' Serial specimen #1, #2 or #3: 3 Result Comment: Crit ical Result(s) Called at: 20:32:29 06/23/2024 by: MARIAN SHEN TO LEVI MCDONALD ([facility]). Results read back by same. Please Note: New Test Units and Gender Specific Reference Ranges. For more information see Policy Stat Procedure [place] High Sensitivity Troponin (TNIH) and attachments. Performed By: #### L 501.4020 #### [facility] [address] [place], [address] TROPONIN-I HS 320 pg/mL Invalid Interpretation Code 3.0-78.0 [facility] Comment on above: Order Comment: Comme nts: SPECIMEN #3 'TROP' Serial specimen #1, #2 or #3: 3 Result Comment: Crit ical Result(s) Called at: 16:08:47 06/23/2024 by: VINCENZO HOLLEY TO LAURA. Results read back by same. Please Note: New Test Units and Gender Specific Reference Ranges. For more information see Policy Stat Procedure [place] High Sensitivity Troponin (TNIH) and attachments. Performed By: #### L 501.4020 #### [facility] [address] [place], [address] TROPONIN-I HS 123 pg/mL Invalid Interpretation Code 3.0-78.0 [facility] Comment on above: Order Comment: Comme nts: SPECIMEN #3 'TROP' Serial specimen #1, #2 or #3: 3 Result Comment: Crit ical Result(s) Called at: 14:26:27 06/23/2024 by: Rola Godinez to Mohini Awad. Results read back by same. Please Note: New Test Units and Gender Specific Reference Ranges. For more information see Policy Stat Procedure [place] High Sensitivity Troponin (TNIH) and attachments. Performed By: #### L 501.4020 #### [facility] [address] [place], [address] L511.0135on 06-23-2024 COHb 9.5 High 0.0-1.5 [facility] Comment on above: Performed By: #### L 511.0135 #### [facility] [address] [place], [address] COHb 27.1 Invalid Interpretation Code 0.0-1.5 [facility] Comment on above: Performed By: #### L 501.4020 #### [facility] [address] [place], [address] Magnesiumon 06-23-2024 Magnesium [Mass/Vol] 2.5 mg/dL Normal 1.6-2.6 [facility] Comment on above: Order Comment: Comme nts: may add to ED labs Performed By: #### L 501.5200 #### [facility] [address] [place], [address] Partial Thromboplast Timeon 06-23-2024 aPTT Coag (Bld) [Time] 30.7 s Normal 24.1-36.2 [facility] Comment on above: Performed By: #### L 501.4020 #### [facility] [address] [place], [address] Prothrombin Time w/INRon INR Coag (PPP) [Relative time] 1.3 {INR} Normal [facility] Comment on above: Performed By: #### L 501.4020 #### [facility] [address] [place], [address] PT Coag (PPP) [Time] 16.5 s High 11.7-14.9 [facility] Comment on above: Performed By: #### L 501.4020 #### [facility] [address] [place], [address] Prothrombin timeOrdered By: Mark Go on 06-23-2024 PT Coag (PPP) [Time] 16.5 s High 11.7-14.9 [facility] Troponin IOrdered By: Gian Larios on 06-23-2024 Troponin I High Sensitivity 2084 pg/mL High 3.0-78.0 [facility] Comment on above: Critical Result(s) C alled at: 23:29:29 06/23/2024 by: MARIAN SHEN to VILMA ROSARIO. Results read back by same. Please Note: New Test Units and Gender Specific Reference Ranges. For more information see Policy Stat Procedure [place] High Sensitivity Troponin (TNIH) and attachments. aPTT Coag (PPP) [Time]Ordere d By: Mark Go on 06-23-2024 aPTT Coag (Bld) [Time] 30.7 s 24.1-36.2 [facility] BNP,B-Type NATRIURETIC PEPTI Robert 11-19-2024 Natriuretic peptide B (Bld) [Mass/Vol] 843.5 pg/mL High 0-100 [facility] Comment on above: Performed By: #### L 500.4050, L100.0100 #### [facility] [address] [place], [address] Basic Metabolic Profile (BMP )on 05-06-2024 BUN/CRE 17.4 RATIO Normal 10-20 [facility] Comment on above: Performed By: #### L 501.4020 #### [facility] [address] [place], [address] CA,Total 8.8 mg/dL Normal 8.5-10.1 [facility] Comment on above: Performed By: #### L 501.4020 #### [facility] [address] [place], [address] Chloride [Moles/Vol] 106 mmol/L Normal 98-107 [facility] Comment on above: Performed By: #### L 501.4020 #### [facility] [address] [place], [address] CO2 [Moles/Vol] 23.0 mmol/L Normal 21.0-32.0 [facility] Comment on above: Performed By: #### L 501.4020 #### [facility] [address] [place], [address] Creatinine [Mass/Vol] 1.78 mg/dL High 0.70-1.30 [facility] Comment on above: Result Comment: The validity of the calculated GFR GFRAA in patients over 70 years has not been determined. Clinical correlation is essential. Performed By: #### L 501.4020 #### [facility] [address] [place], [address] EST GFR - AA 47 mL/min Low >60 [facility] Comment on above: Result Comment: Afri can Yemeni GFR Calc Performed By: #### L 501.4020 #### [facility] [address] [place], [address] GAP 8 Normal 5-15 [facility] Comment on above: Performed By: #### L 501.4020 #### [facility] [address] [place], [address] GFR/1.73 sq M.predicted among non-blacks MDRD (S/P/Bld) [Vol rate/Area] 39 mL/min/{1.73_m2} Low >60 [facility] Comment on above: Result Comment: Non- GFR Calc Performed By: #### L 501.4020 #### [facility] [address] [place], [address] Glucose [Mass/Vol] 143 mg/dL High 74-106 [facility] Comment on above: Result Comment: Fast ing Glucose result greater than or equal to 126 mg/dL suggests DIABETES MELLITUS per A.D.A. criteria. Performed By: #### L 501.4020 #### [facility] [address] [place], [address] Potassium [Moles/Vol] 4.1 mmol/L Normal 3.5-5.1 [facility] Comment on above: Performed By: #### L 501.4020 #### [facility] [address] [place], [address] Sodium [Moles/Vol] 137 mmol/L Normal 136-145 [facility] Comment on above: Performed By: #### L 501.4020 #### [facility] [address] [place], [address] Urea nitrogen [Mass/Vol] 31 mg/dL High 7-18 [facility] Comment on above: Performed By: #### L 501.4020 #### [facility] [address] [place], [address] CBC W/Diff, Automatedon 11- Absolute Lymph 1.08 X10 3/uL Normal 0.83-4.51 [facility] Comment on above: Performed By: #### L 501.4020 #### [facility] [address] [place], [address] Absolute Neut 4.9 X10 3/uL Normal 2.0-7.7 [facility] Comment on above: Performed By: #### L 501.4020 #### [facility] [address] [place], [address] Basophils/100 WBC (Bld) 0.6 % Normal 0-1 [facility] Comment on above: Performed By: #### L 501.4020 #### [facility] [address] [place], [address] Eosinophils/100 WBC (Bld) 1.4 % Normal 0-5 [facility] Comment on above: Performed By: #### L 501.4020 #### [facility] [address] [place], [address] Erythrocyte distribution width (RBC) [Ratio] 13.5 % Normal 11.6-14.6 [facility] Comment on above: Performed By: #### L 501.4020 #### [facility] [address] [place], [address] Hematocrit (Bld) [Volume fraction] 45.6 % Normal 40-54 [facility] Comment on above: Performed By: #### L 501.4020 #### [facility] [address] [place], [address] Hemoglobin (Bld) [Mass/Vol] 14.6 g/dL Normal 13.0-16.5 [facility] Comment on above: Performed By: #### L 501.4020 #### [facility] [address] [place], [address] IG% 0.300 Normal 0.0-0.9 [facility] Comment on above: Result Comment: IG% - Immature Granulocytes (promyelocytes, myelocytes and metamyelocytes) > 1% indicates that a LEFT SHIFT is Present. Performed By: #### L 501.4020 #### [facility] [address] [place], [address] Lymphocytes/100 WBC (Bld) 16.3 % Low 19-41 [facility] Comment on above: Performed By: #### L 501.4020 #### [facility] [address] [place], [address] MCH (RBC) [Entitic mass] 30.1 pg Normal 27.0-32.0 [facility] Comment on above: Performed By: #### L 501.4020 #### [facility] [address] [place], [address] MCHC (RBC) [Mass/Vol] 32.0 g/dL Normal 32-36 [facility] Comment on above: Performed By: #### L 501.4020 #### [facility] [address] [place], [address] MCV (RBC) [Entitic vol] 94.0 fL Normal 80-94 [facility] Comment on above: Performed By: #### L 501.4020 #### [facility] [address] [place], [address] Monocytes/100 WBC (Bld) 8.1 % Normal 0-10 [facility] Comment on above: Performed By: #### L 501.4020 #### [facility] [address] [place], [address] Neutrophils/100 WBC (Bld) 73.3 % High 47-70 [facility] Comment on above: Performed By: #### L 501.4020 #### [facility] [address] [place], [address] Nucleated RBC (Bld) [#/Vol] 0 10*3/uL Normal 0-5 [facility] Comment on above: Performed By: #### L 501.4020 #### [facility] [address] [place], [address] Platelet mean volume (Bld) [Entitic vol] 11.2 fL Normal 6.2-12.0 [facility] Comment on above: Performed By: #### L 501.4020 #### [facility] [address] [place], [address] Platelets (Bld) [#/Vol] 180 10*3/uL Normal 150-450 [facility] Comment on above: Performed By: #### L 501.4020 #### [facility] [address] [place], [address] RBC (Bld) [#/Vol] 4.85 10*6/uL Normal 4.6-6.2 [facility] Comment on above: Performed By: #### L 501.4020 #### [facility] [address] [place], [address] RDW SD 46.8 fl High 35.1-43.9 [facility] Comment on above: Performed By: #### L 501.4020 #### [facility] [address] [place], [address] WBC (Bld) [#/Vol] 6.6 10*3/uL Normal 4.4-11.0 [facility] Comment on above: Performed By: #### L 501.4020 #### [facility] [address] [place], [address] No Panel Informationon 05-01 Culture Urine 10,000 - 50,000 cfu/ ml Mixed growth consistent with normal urogenital dnony. [facility] Work Phone: .Auto Diffon 01-23-2024 Basophil, Absolute 0.1 10 3/mcL Normal 0.0-0.2 [facility] ([place]) Comment on above: Performed By: #### A NSG, CBC, ADIFF, ANEU, BMP, ALB, GFR, ABOG #### [address] [address] Basophils/100 WBC (Bld) 0.8 % Normal 0.0-2.5 [facility] ([place]) Comment on above: Performed By: #### A NSG, CBC, ADIFF, ANEU, BMP, ALB, GFR, ABOG #### [address] [address] Eosinophil, Absolute 0.1 10 3/mcL Normal 0.0-0.4 [facility] ([place]) Comment on above: Performed By: #### A NSG, CBC, ADIFF, ANEU, BMP, ALB, GFR, ABOG #### [address] [address] Eosinophils/100 WBC (Bld) 1.8 % Normal 0.0-7.0 [facility] ([place]) Comment on above: Performed By: #### A NSG, CBC, ADIFF, ANEU, BMP, ALB, GFR, ABOG #### [address] [address] Lymphocyte, Absolute 1.8 10 3/mcL Normal 0.8-3.9 [facility] ([place]) Comment on above: Performed By: #### A NSG, CBC, ADIFF, ANEU, BMP, ALB, GFR, ABOG #### [address] [address] Lymphocytes/100 WBC (Bld) 23.8 % Normal 10.0-50.0 [facility] ([place]) Comment on above: Performed By: #### A NSG, CBC, ADIFF, ANEU, BMP, ALB, GFR, ABOG #### [address] [address] Monocyte, Absolute 1.0 10 3/mcL Normal 0.2-1.0 [facility] ([place]) Comment on above: Performed By: #### A NSG, CBC, ADIFF, ANEU, BMP, ALB, GFR, ABOG #### [address] [address] Monocytes/100 WBC (Bld) 13.3 % High 1.7-13.0 [facility] ([place]) Comment on above: Performed By: #### A NSG, CBC, ADIFF, ANEU, BMP, ALB, GFR, ABOG #### [address] [address] Neutrophils/100 WBC (Bld) 60.3 % Normal 37.0-80.0 [facility] ([place]) Comment on above: Performed By: #### A NSG, CBC, ADIFF, ANEU, BMP, ALB, GFR, ABOG #### [address] [address] .GFRon 01-23-2024 GFR 56 ml/min/1.73sqm Normal [facility] ([place]) Comment on above: Result Comment: GFR Population [...] ADIFF, ANEU, BMP, ALB, GFR, ABOG #### [address] [address] GFR Non- 46 ml/min/1.73sqm Normal [facility] ([place]) Comment on above: Result Comment: GFR Population [...] ADIFF, ANEU, BMP, ALB, GFR, ABOG #### [address] [address] .NEUABSon 01-23-2024 Neutrophil, Absolute 4.5 10 3/mcL Normal 2.9-6.2 [facility] ([place]) Comment on above: Performed By: #### A NSG, CBC, ADIFF, ANEU, BMP, ALB, GFR, ABOG #### [address] [address] CBCon 01-23-2024 Erythrocyte distribution width (RBC) [Ratio] 17.1 % High 11.5-14.5 [facility] ([place]) Comment on above: Performed By: #### A NSG, CBC, ADIFF, ANEU, BMP, ALB, GFR, ABOG #### [address] [address] Hematocrit (Bld) [Volume fraction] 48.9 % Normal 42.0-52.0 [facility] ([place]) Comment on above: Performed By: #### A NSG, CBC, ADIFF, ANEU, BMP, ALB, GFR, ABOG #### [address] [address] Hgb 15.6 G/dL Normal 14.0-18.0 [facility] ([place]) Comment on above: Performed By: #### A NSG, CBC, ADIFF, ANEU, BMP, ALB, GFR, ABOG #### [address] [address] MCH (RBC) [Entitic mass] 28.4 pg Normal 27.0-31.2 [facility] ([place]) Comment on above: Performed By: #### A NSG, CBC, ADIFF, ANEU, BMP, ALB, GFR, ABOG #### [address] [address] MCHC 31.9 G/dL Normal 31.8-35.4 [facility] ([place]) Comment on above: Performed By: #### A NSG, CBC, ADIFF, ANEU, BMP, ALB, GFR, ABOG #### [address] [address] MCV (RBC) [Entitic vol] 89.0 fL Normal 80.0-94.0 [facility] ([place]) Comment on above: Performed By: #### A NSG, CBC, ADIFF, ANEU, BMP, ALB, GFR, ABOG #### [address] [address] Platelet 193 10 3/mcL Normal 130-400 [facility] ([place]) Comment on above: Performed By: #### A NSG, CBC, ADIFF, ANEU, BMP, ALB, GFR, ABOG #### [address] [address] Platelet mean volume (Bld) [Entitic vol] 9.5 fL Normal 7.4-10.4 [facility] ([place]) Comment on above: Performed By: #### A NSG, CBC, ADIFF, ANEU, BMP, ALB, GFR, ABOG #### [address] [address] RBC 5.50 10 6/mcL Normal 4.04-6.13 [facility] ([place]) Comment on above: Performed By: #### A NSG, CBC, ADIFF, ANEU, BMP, ALB, GFR, ABOG #### [address] [address] WBC 7.5 10 3/mcL Normal 4.6-10.8 [facility] ([place]) Comment on above: Performed By: #### A NSG, CBC, ADIFF, ANEU, BMP, ALB, GFR, ABOG #### [address] [address] CMPon 01-23-2024 Albumin Level 3.4 G/dL Normal 3.4-4.8 [facility] ([place]) Comment on above: Performed By: #### A NSG, CBC, ADIFF, ANEU, BMP, ALB, GFR, ABOG #### [address] [address] Albumin/Globulin [Mass ratio] 1.0 {ratio} Low 1.1-2.5 [facility] ([place]) Comment on above: Performed By: #### A NSG, CBC, ADIFF, ANEU, BMP, ALB, GFR, ABOG #### [address] [address] ALP [Catalytic activity/Vol] 142 U/L High 40-135 [facility] ([place]) Comment on above: Performed By: #### A NSG, CBC, ADIFF, ANEU, BMP, ALB, GFR, ABOG #### [address] [address] ALT [Catalytic activity/Vol] 17 U/L Normal 16-63 [facility] ([place]) Comment on above: Performed By: #### A NSG, CBC, ADIFF, ANEU, BMP, ALB, GFR, ABOG #### [address] [address] AST [Catalytic activity/Vol] 17 U/L Normal 10-40 [facility] ([place]) Comment on above: Performed By: #### A NSG, CBC, ADIFF, ANEU, BMP, ALB, GFR, ABOG #### [address] [address] Bili Total 0.6 mg/dL Normal 0.2-1.0 [facility] ([place]) Comment on above: Result Comment: Use of this assay is not recommended for patients undergoing treatment with eltrombopag due to the potential for falsely elevated results. Performed By: #### A NSG, CBC, ADIFF, ANEU, BMP, ALB, GFR, ABOG #### [address] [address] BUN/Creatinine Ratio 19 ratio Normal 7-27 [facility] ([place]) Comment on above: Performed By: #### A NSG, CBC, ADIFF, ANEU, BMP, ALB, GFR, ABOG #### [address] [address] Calcium [Mass/Vol] 8.9 mg/dL Normal 8.4-10.2 [facility] ([place]) Comment on above: Performed By: #### A NSG, CBC, ADIFF, ANEU, BMP, ALB, GFR, ABOG #### [address] [address] Chloride [Moles/Vol] 104 mmol/L Normal 98-107 [facility] ([place]) Comment on above: Performed By: #### A NSG, CBC, ADIFF, ANEU, BMP, ALB, GFR, ABOG #### [address] [address] CO2 [Moles/Vol] 22 mmol/L Low 23-31 [facility] ([place]) Comment on above: Performed By: #### A NSG, CBC, ADIFF, ANEU, BMP, ALB, GFR, ABOG #### [address] [address] Creatinine [Mass/Vol] 1.47 mg/dL High 0.70-1.30 [facility] ([place]) Comment on above: Performed By: #### A NSG, CBC, ADIFF, ANEU, BMP, ALB, GFR, ABOG #### [address] [address] Electrolyte Balance 14.0 mEq/L Normal 4.0-15.0 [facility] ([place]) Comment on above: Performed By: #### A NSG, CBC, ADIFF, ANEU, BMP, ALB, GFR, ABOG #### [address] [address] Globulin 3.4 G/dL Normal [facility] ([place]) Comment on above: Performed By: #### A NSG, CBC, ADIFF, ANEU, BMP, ALB, GFR, ABOG #### [address] [address] Glucose [Mass/Vol] 114 mg/dL High 83-110 [facility] ([place]) Comment on above: Performed By: #### A NSG, CBC, ADIFF, ANEU, BMP, ALB, GFR, ABOG #### [address] [address] Potassium [Moles/Vol] 4.2 mmol/L Normal 3.5-5.1 [facility] ([place]) Comment on above: Performed By: #### A NSG, CBC, ADIFF, ANEU, BMP, ALB, GFR, ABOG #### [address] [address] Sodium [Moles/Vol] 140 mmol/L Normal 136-145 [facility] ([place]) Comment on above: Performed By: #### A NSG, CBC, ADIFF, ANEU, BMP, ALB, GFR, ABOG #### [address] [address] Total Protein 6.8 G/dL Normal 6.4-8.2 [facility] ([place]) Comment on above: Performed By: #### A NSG, CBC, ADIFF, ANEU, BMP, ALB, GFR, ABOG #### [address] [address] Urea nitrogen [Mass/Vol] 28 mg/dL High 7-18 [facility] ([place]) Comment on above: Performed By: #### A NSG, CBC, ADIFF, ANEU, BMP, ALB, GFR, ABOG #### [address] [address] LABORATORYOrdered By: SYSTEM SYSTEM on 01-23-2024 Albumin [...] 01-23-2024 Cholesterol [Mass/Vol] 137 mg/dL Normal 0-200 [facility] ([place]) Comment on above: Result Comment: Chol esterol Reference Interval: Less than 200 Desirable 200-239 Borderline high risk 240 and above High risk Performed By: #### A NSG, CBC, ADIFF, ANEU, BMP, ALB, GFR, ABOG #### [address] [address] Cholesterol in HDL [Mass/Vol] 48 mg/dL Normal 40-60 [facility] ([place]) Comment on above: Performed By: #### A NSG, CBC, ADIFF, ANEU, BMP, ALB, GFR, ABOG #### [address] [address] Cholesterol in LDL [Mass/Vol] 73 mg/dL Normal 0-130 [facility] ([place]) Comment on above: Performed By: #### A NSG, CBC, ADIFF, ANEU, BMP, ALB, GFR, ABOG #### [address] [address] Triglyceride [Mass/Vol] 82 mg/dL Normal 0-150 [facility] ([place]) Comment on above: Result Comment: Trig lyceride Reference Interval: Less than 150 Normal 150-199 Borderline high risk 200-499 High risk 500 or higher Very high risk Performed By: #### A NSG, CBC, ADIFF, ANEU, BMP, ALB, GFR, ABOG #### [address] [address] Basophil percentageOrdered B y: David Palmer on 10-13-2023 Hemoglobin (Bld) [Mass/Vol] 10.5 g/dL 13.0-16.5 [facility] Hematocrit Auto (Bld) [Volum e fraction]Ordered By: David Palmer on 10-13-2023 Hematocrit (Bld) [Volume fraction] 34.4 % 40-54 [facility] Basophil percentageOrdered B y: David Palmer on 10-11-2023 Chloride [Moles/Vol] 107 mmol/L 98-107 [facility] Glucose [Mass/Vol] 95 mg/dL 74-106 [facility] Potassium [Moles/Vol] 4.5 mmol/L 3.5-5.1 [facility] Sodium [Moles/Vol] 138 mmol/L 136-145 [facility] Laboratory - Chemistry and C hemistry - challengeOrdered By: David Palmer on 10-11-2023 CO2 [Moles/Vol] 28.0 mmol/L 21.0-32.0 [facility] Urea nitrogen/Creatinine [Mass ratio] 18.4 mg/mg 10-20 [facility] No Panel InformationOrdered By: David Palmer on 10-11-2023 Estimated Creatinine Clearance Calc 45.27 ml/min [facility] Estimated GFR (MDRD) Amer 59 mL/min >60 [facility] Comment on above: GFR Calc Estimated GFR (MDRD) Non-Af Amer 49 mL/min >60 [facility] Comment on above: Non- GFR Calc Serum or plasma calcium kian urement (mass/volume)Ordered By: David Palmer on 10-11-2023 Calcium [Mass/Vol] 8.5 mg/dL 8.5-10.1 [facility] Serum or plasma creatinine m easurement (mass/volume)Ordered By: David Palmer on 10-11-2023 Creatinine [Mass/Vol] 1.47 mg/dL 0.70-1.30 [facility] Comment on above: The validity of the calculated GFR & GFRAA in patients over 70 years has not been determined. Clinical correlation is essential. Serum or plasma urea nitroge n measurement (mass/volume)Ordered By: David Palmer on 10-11-2023 Urea nitrogen [Mass/Vol] 27 mg/dL 7-18 [facility] Thin prep Papanicolaou smear with manual screeningOrdered By: David Palmer 10-11-2023 Thin prep Papanicolaou smear with manual screening 3 5-15 [facility] Absolute lymphocyte countOrd ered By: David Palmer on 10-10-2023 Lymphocytes Auto (Unsp spec) [#/Vol] 1.50 10*3/uL 0.83-4.51 [facility] Automated lymphocyte count a s percentage of total leukocytesOrdered By: David Palmer on 10-10-2023 Lymphocytes/100 WBC Auto (Unsp spec) 20.9 % 19-41 [facility] Basophil percentageOrdered B y: David Palmer on 10-10-2023 Basophils/100 WBC (Bld) 0.7 % 0-1 [facility] Eosinophils/100 WBC (Bld) 2.6 % 0-5 [facility] Monocytes/100 WBC (Bld) 8.9 % 0-10 [facility] Neutrophils (Bld) [#/Vol] 4.8 10*3/uL 2.0-7.7 [facility] Neutrophils/100 WBC (Bld) 66.3 % 47-70 [facility] WBC (Bld) [#/Vol] 7.2 10*3/uL 4.4-11.0 [facility] Determination of erythrocyte mean corpuscular volume (MCV)Ordered By: David Palmer on 10-10-2023 MCV (RBC) [Entitic vol] 98.1 fL 80-94 [facility] Erythrocyte distribution wid th ratioOrdered By: David Palmer on 10-10-2023 Erythrocyte distribution width (RBC) [Ratio] 13.6 % 11.6-14.6 [facility] Erythrocyte distribution wid th standard deviationOrdered By: David Palmer on 10-10-2023 Erythrocyte distribution width (RBC) [Entitic vol] 48.7 fL 35.1-43.9 [facility] Immature granulocytes/100 WB C Auto (Bld)Ordered By: David Palmer on 10-10-2023 Immature granulocytes/100 WBC (Bld) 0.600 % 0.0-0.9 [facility] Comment on above: IG% - Immature Granu locytes (promyelocytes, myelocytes and metamyelocytes) > 1% indicates that a LEFT SHIFT is Present. Laboratory - Hematology and Cell countsOrdered By: David Palmer on 10-10-2023 MCH (RBC) [Entitic mass] 29.2 pg 27.0-32.0 [facility] MCHC (RBC) [Mass/Vol] 29.8 g/dL 32-36 [facility] Nucleated RBC/100 WBC (Bld) [Ratio] 0 % 0-5 [facility] Platelet mean volume (Bld) [Entitic vol] 11.0 fL 6.2-12.0 [facility] Platelets (Bld) [#/Vol] 344 10*3/uL 150-450 [facility] RBC Auto (Bld) [#/Vol]Ordere d By: David Palmer on 10-10-2023 RBC (Bld) [#/Vol] 3.15 10*6/uL 4.6-6.2 [facility] 36on 10-07-2023 36 Error Normal [facility] Iron measurement (mass/mass) Ordered By: David Palmer on 10-07-2023 Iron (Unsp spec) [Mass/Mass] 28 ug/dL 65-175 [facility] Lower GI hemoglobin IA Ql (S tl)Ordered By: David Palmer on 10-07-2023 Stool Occult Blood (DANNIELLE) Positive [facility] No Panel InformationOrdered By: David Palmer on 10-07-2023 Total Iron Binding Capacity 228 ug/dL 250-450 [facility] Serum or plasma iron saturat ion measurement (mass fraction)Ordered By: David Palmer on 10-07-2023 Iron saturation [Mass fraction] 12.3 % 15.0-55.0 [facility] CALCIUM, IONIZEDon 4 CALCIUM IONIZED 4.40 mg/dL Normal 4.30-5.20 [facility] Comment on above: Performed By: #### L [id number] ####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: KIM GONZALES ([id number])[address] PH, IONIZED CALCIUM 7.45 Normal 7.31-7.46 [facility] Comment on above: Performed By: #### L [id number] ####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: KIM GONZALES ([phone])[address] CARECOORDon 10-05-2023 [place] Next Site of Care Admission Date: 09/25/2023 12:49 PM Patient Name: EBEN CRUZ Location: [id number] A Date of : 1945 Placement Information [facility]erral Type:[facility] - [facility] Referral ID:[id number] Provider Name: Address 1: Phone Number: Address 2: Fax Number: City: Selection Factors: State: Referral Type:Senior Care/SNF - Return Referral ID:[id number] Provider Name:[facility] Address 1:[address] Address 2: City:[place] Selection Factors:Patient/Family Choice State:[facility] 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 Notified SNF via [facility]. Notified TCC and bedside nurse via secured chat. Gave sales secretary transport form. Met w/ Pt, introduced [...] Mark and informed of this information. Normal [facility] CBC W Auto Differential pane l (Bld)on 10-05-2023 Basophils (Bld) [#/Vol] 0.0 10*3/uL 0.0 - 0.2 10*3/uL [facility] Basophils/100 WBC (Bld) 0.4 % 0.0 - 2.0 % [facility] Eosinophils (Bld) [#/Vol] 0.2 10*3/uL 0.0 - 0.5 10*3/uL [facility] Eosinophils/100 WBC (Bld) 2.2 % 0.0 - 6.0 % [facility] Erythrocyte distribution width (RBC) [Ratio] 13.2 % 11.5 - 15.0 % [facility] Hematocrit (Bld) [Volume fraction] 31.7 % Low 40.0 - 52.0 % [facility] Hemoglobin (Bld) [Mass/Vol] 9.9 g/dL Low 13.0 - 18.0 g/dL [facility] Immature granulocytes (Bld) [#/Vol] 0.1 10*3/uL High NINF - 0.1 10*3/uL [facility] [employer] Immature granulocytes/100 WBC (Bld) 0.9 % 0.0 - 2.0 % [facility] Interpretation and review of laboratory results Abnormal [facility] Lymphocytes (Bld) [#/Vol] 1.6 10*3/uL 1.0 - 4.3 10*3/uL [facility] Lymphocytes/100 WBC (Bld) 17.5 % 15.0 - 45.0 % [facility] MCH (RBC) [Entitic mass] 30.3 pg 26.0 - 34.0 pg [facility] MCHC (RBC) [Mass/Vol] 31.2 % 30.5 - 36.0 % [facility] MCV (RBC) [Entitic vol] 96.9 fL 77.0 - 99.0 fL [facility] Monocytes (Bld) [#/Vol] 0.7 10*3/uL 0.0 - 0.9 10*3/uL [facility] Monocytes/100 WBC (Bld) 8.0 % 5.0 - 13.0 % [facility] [employer] Neutrophils (Bld) [#/Vol] 6.6 10*3/uL 1.8 - 7.5 10*3/uL [facility] Neutrophils/100 WBC (Bld) 71.0 % 38.0 - 82.0 % [facility] [employer] Nucleated RBC/100 WBC (Bld) [Ratio] 0.0 % [facility] [employer] Platelet mean volume (Bld) [Entitic vol] 10.7 fL 9.0 - 12.7 fL [facility] [employer] Platelets (Bld) [#/Vol] 458 10*3/uL High 140 - 440 10*3/uL [facility] RBC (Bld) [#/Vol] 3.27 10*6/uL Low 4.40 - 5.90 10*6/uL [facility] WBC (Bld) [#/Vol] 9.3 10*3/uL 3.6 - 10.7 10*3/uL [facility] CBC WITH AUTO DIFFERENTIALon 10-05-2023 Basophils (Bld) [#/Vol] 0.0 10*3/uL Normal 0.0-0.2 [facility] Comment on above: Performed By: #### L [id number] ####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: KIM GONZALES ([id number])[address] Basophils/100 WBC (Bld) 0.4 % Normal 0.0-2.0 [facility] Comment on above: Performed By: #### L [id number] ####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: KIM GONZALES ([id number])[address] Eosinophils (Bld) [#/Vol] 0.2 10*3/uL Normal 0.0-0.5 [facility] Comment on above: Performed By: #### L [id number] ####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: KIM [id number])[facility])[address] [place] [address] Eosinophils/100 WBC (Bld) 2.2 % Normal 0.0-6.0 [facility] Comment on above: Performed By: #### L [id number] ####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: KIM GONZALES ([phone])[facility])[address] [place] [address] Erythrocyte distribution width (RBC) [Ratio] 13.2 % Normal 11.5-15.0 [facility] Comment on above: Performed By: #### L [id number] ####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: KIM GONZALES ([phone])[facility])[address] [place] [address] Hematocrit (Bld) [Volume fraction] 31.7 % Low 40.0-52.0 [facility] Comment on above: Performed By: #### L [id number] ####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: KIM GONZALES ([id number])[facility])[address] [place] [address] Hemoglobin (Bld) [Mass/Vol] 9.9 g/dL Low 13.0-18.0 [facility] Comment on above: Performed By: #### L [id number] ####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: KIM GONZALES ([id number])[facility])[address] [place] [address] IMMATURE GRANS % 0.9 % Normal 0.0-2.0 [facility] Comment on above: Performed By: #### L [id number] ####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: KIM GONZALES ([phone])[facility])[address] [place] [address] IMMATURE GRANS ABSOLUTE 0.1 10*3/uL High <0.1 [facility] Comment on above: Performed By: #### L [id number] ####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: KIM GONZALES ([id number])[facility])[address] [place] [address] Lymphocytes (Bld) [#/Vol] 1.6 10*3/uL Normal 1.0-4.3 [facility] Comment on above: Performed By: #### L [id number] ####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: KIM GONZALES ([id number])[facility])[address] [place] [address] Lymphocytes/100 WBC (Bld) 17.5 % Normal 15.0-45.0 [facility] Comment on above: Performed By: #### L [id number] ####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: KIM GONZALES ([id number])[facility])[address] [place] [address] MCH (RBC) [Entitic mass] 30.3 pg Normal 26.0-34.0 [facility] Comment on above: Performed By: #### L [id number] ####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: KIM GONZALES ([id number])[facility])[address] [place] [address] MCHC 31.2 % Normal 30.5-36.0 [facility] Comment on above: Performed By: #### L [id number] ####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: KIM GONZALES ([id number])[facility])[address] [place] [address] MCV (RBC) [Entitic vol] 96.9 fL Normal 77.0-99.0 [facility] Comment on above: Performed By: #### L [id number] ####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: KIM GONZALES ([id number])[facility])[address] [place] [address] Monocytes (Bld) [#/Vol] 0.7 10*3/uL Normal 0.0-0.9 [facility] Comment on above: Performed By: #### L [id number] ####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: KIM GONZALES ([id number])[facility])[address] [place] [address] Monocytes/100 WBC (Bld) 8.0 % Normal 5.0-13.0 [facility] Comment on above: Performed By: #### L [id number] ####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: KIM GONZALES ([id number])[facility] ([facility])[address] [place] [address] NEUTROPHILS ABSOLUTE 6.6 10*3/uL Normal 1.8-7.5 [facility] Comment on above: Performed By: #### L [id number] ####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: KIM GONZALES ([id number])[facility] ([facility])[address] [place] [address] Neutrophils/100 WBC (Bld) 71.0 % Normal 38.0-82.0 [facility] Comment on above: Performed By: #### L [id number] ####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: KIM GONZALES ([id number])[facility])[address] [place] [address] NRBC 0.0 /100 WBCs Normal 0.0-2.0 [facility] Comment on above: Performed By: #### L [id number] ####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: KIM GONZALES ([id number])[facility] ([facility])[address] [place] [address] Platelet mean volume (Bld) [Entitic vol] 10.7 fL Normal 9.0-12.7 [facility] Comment on above: Performed By: #### L [id number] ####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: KIM GONZALES ([id number])[facility] ([facility])[address] [place] [address] [place] Platelets (Bld) [#/Vol] 458 10*3/uL High 140-440 [facility] Comment on above: Performed By: #### L [id number] ####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: KIM GONZALES ([id number])[facility])[address] [place] [address] RBC (Bld) [#/Vol] 3.27 10*6/uL Low 4.40-5.90 [facility] Comment on above: Performed By: #### L [id number] ####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: KIM GONZALES ([id number])[facility] ([facility])[address] [place] [address] WBC (Bld) [#/Vol] 9.3 10*3/uL Normal 3.6-10.7 [facility] Comment on above: Performed By: #### L [id number] ####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: KIM GONZALES ([phone])[facility] ([facility])[address] [place] [address] COMPREHENSIVE METABOLIC PANE Miguel Angel 10-05-2023 Albumin [Mass/Vol] 3.1 g/dL Low 3.5-5.0 [facility] Comment on above: Performed By: #### L [id number], LAB17, [id number] ####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: KIM GONZALES ([id number])[facility] ([facility])[address] [place] [address] ALP [Catalytic activity/Vol] 103 U/L Normal 38-126 [facility] Comment on above: Performed By: #### L AB103, LAB17, [id number] ####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: KIM GONZALES ([id number])[facility] ([facility])[address] [place] [address] ALT [Catalytic activity/Vol] 27 U/L Normal 0-49 [facility] Comment on above: Performed By: #### L AB103, LAB17, [id number] ####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: KIM GONZALES ([id number])[facility] ([facility])[address] [place] [address] Anion gap [Moles/Vol] 4 mmol/L Normal 3-13 [facility] Comment on above: Performed By: #### L AB103, LAB17, [id number] ####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: KIM GONZALES ([id number])[facility])[address] [place] [address] AST [Catalytic activity/Vol] 27 U/L Normal 15-46 [facility] Comment on above: Performed By: #### L AB103, LAB17, [id number] ####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: KIM GONZALES ([id number])[facility] [place] [address] [place] Bilirubin [Mass/Vol] 0.8 mg/dL Normal 0.2-1.3 [facility] Comment on above: Performed By: #### L AB103, LAB17, [id number] ####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: KIM GONZALES ([id number])[facility] ([facility])[address] [place] [address] Calcium [Mass/Vol] 8.8 mg/dL Normal 8.4-10.4 [facility] Comment on above: Performed By: #### L AB103, LAB17, [id number] ####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: KIM GONZALES ([id number])[facility])[address] [place] [address] Chloride [Moles/Vol] 105 mmol/L Normal 98-107 [facility] Comment on above: Performed By: #### Barry DEJESUS, LAB17, [id number] ####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: KIM GONZALES ([id number])[facility] ([facility])[address] [place] [address] [place] CO2 [Moles/Vol] 28 mmol/L Normal 22-30 [facility] Comment on above: Performed By: #### Barry AB103, LAB17, [id number] ####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: KIM GONZALES ([id number])[facility] ([facility])[address] [place] [address] [place] Creatinine [Mass/Vol] 1.22 mg/dL Normal 0.66-1.[address] [facility] Comment on above: Performed By: #### L AB103, LAB17, [id number] ####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: KIM GONZALES ([id number])[facility])[address] [place] [address] [place] GLOMERULAR FILTRATION RATE ML/MIN/1.73 SQ M.PREDICTED 59.9 mL/min/1.73m*2 Low >60.0 [facility] Comment on above: Result Comment: Calc ulation based on the Chronic Kidney Disease Epidemiology Collaboration (CKD-EPI) equation refit without adjustment for race Performed By: #### L AB103, LAB17, [id number] ####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: KIM GONZALES ([id number])[facility] ([facility])[address] [place] [address] Glucose [Mass/Vol] 97 mg/dL Normal 70-100 [facility] Comment on above: Performed By: #### L AB103, LAB17, [id number] ####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: KIM GONZALES ([id number])[facility] ([facility])[address] [place] [address] Potassium [Moles/Vol] 4.3 mmol/L Normal 3.5-5.1 [facility] Comment on above: Performed By: #### Barry DEJESUS, LAB17, [id number] ####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: KIM GONZALES ([phone])[facility])[address] [place] [address] Protein [Mass/Vol] 6.6 g/dL Normal 6.3-8.2 [facility] Comment on above: Performed By: #### Barry AB103, LAB17, [id number] ####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: KIM GONZALES ([phone])[facility] ([facility])[address] [place] [address] Sodium [Moles/Vol] 137 mmol/L Normal 135-145 [facility] Comment on above: Performed By: #### Barry DEJESUS, LAB17, [id number] ####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: KIM GONZALES ([phone])[facility])[address] [place] [address] [place] Urea nitrogen [Mass/Vol] 26 mg/dL High 9-20 [facility] Comment on above: Performed By: #### L AB103, LAB17, [id number] ####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: KIM GONZALES ([id number])[facility])[address] [place] [address] Calcium.ionized [Moles/Vol]o n 10-05-2023 Calcium.ionized (Bld) [Moles/Vol] 4.40 mg/dL 4.30 - 5.20 mg/dL [facility] Interpretation and review of laboratory results Normal [facility] PH, IONIZED CALCIUM 7.45 7.31 - 7.46 [facility] Comprehensive metabolic 1998 panelon 10-05-2023 Albumin [Mass/Vol] 3.1 g/dL Low 3.5 - 5.0 g/dL [facility] ALP [Catalytic activity/Vol] 103 U/L 38 - 126 U/L [facility] ALT [Catalytic activity/Vol] 27 U/L 0 - 49 U/L [facility] Anion gap [Moles/Vol] 4 mmol/L 3 - 13 mmol/L [facility] AST [Catalytic activity/Vol] 27 U/L 15 - 46 U/L [facility] Bilirubin [Mass/Vol] 0.8 mg/dL 0.2 - 1 .3 mg/dL [facility] Calcium [Mass/Vol] 8.8 mg/dL 8.4 - 10. 4 mg/dL [facility] Chloride [Moles/Vol] 105 mmol/L 98 - 10 7 mmol/L [facility] CO2 [Moles/Vol] 28 mmol/L 22 - 30 mmol/L [facility] Creatinine [Mass/Vol] 1.22 mg/dL 0.66 - 1.25 mg/dL [facility] GFR/1.73 sq M.predicted MDRD (S/P/Bld) [Vol rate/Area] 59.9 mL/min/{1.73_m2} Low - PINF [facility] th Glucose [Mass/Vol] 97 mg/dL 70 - 100 mg/dL [facility] Potassium [Moles/Vol] 4.3 mmol/L 3.5 - 5.1 mmol/L [facility] Protein [Mass/Vol] 6.6 g/dL 6.3 - 8.2 g/dL [facility] Sodium [Moles/Vol] 137 mmol/L 135 - 145 mmol/L [facility] Urea nitrogen [Mass/Vol] 26 mg/dL High 9 - 20 mg/dL [facility] ECG 12-LEADon 10-05-2023 ECG 12-LEAD IMPRESSION: Sinus rhythm Nonspecific repol abnormality, lateral leads Compared to ECG 10/03/2023 11:35:26 Ventricular premature complex(es) no longer present Electronically Signed On 10-05-2023 08:34:23 [facility] 12-LEAD IMPRESSION: Sinus rhythm Nonspecific repol abnormality, lateral leads Electronically Signed On 10-05-2023 08:02:59 EDT by Evie Valenzuela Normal [facility] Laboratory - Chemistry and C hemistry - challengeon 10-05-2023 Magnesium [Mass/Vol] 2.5 mg/dL High 1.6 - 2 .3 mg/dL [facility] MAGNESIUMon 10-05-2023 Magnesium [Mass/Vol] 2.5 mg/dL High 1.6-2.3 [facility] Comment on above: Performed By: #### L AB103, LAB17, [id number] ####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: KIM GONZALES ([phone])[address] No Panel InformationOrdered By: Eive Valenzuela on 10-05-2023 P Brooten 38 degrees [facility] Work Phone: CA Interval 201 ms [facility] Work Phone: QRS Brooten 8 degrees [facility] Work Phone: QRSD Interval 97 ms [facility] Work Phone: QT Interval 383 ms [facility] Work Phone: QTC Interval 437 ms [facility] Work Phone: T Wave Brooten 198 degrees [facility] Work Phone: [facility] Work Phone: No Panel Informationon 10-04 CV EPIPHANY [facility] P Brooten 45 degrees [facility] CA Interval 211 ms [facility] QRS Brooten 29 degrees [facility] QRSD Interval 96 ms [facility] QT Interval 404 ms [facility] QTC Interval 454 ms [facility] T Wave Brooten 224 degrees [facility] CV EPIPHANY [facility] Interpretation and review of laboratory results Abnormal [facility] Nursing Noteon 10-05-2023 Nursing Note Called report to [phone] [facility]. Removed patient's IV per protocol and ensured that his LifeVest, equipment or machinery cleaner, instructions and extra battery went with him. Gave him a copy medication list to give to his daughter per request. He had no questions or objections to discharge. No change in his assessment, ready for discharge/transport. Normal [facility] PHOSPHORUSon 10-05-2023 Phosphate [Mass/Vol] 4.0 mg/dL Normal 2.5-4.5 [facility] Comment on above: Performed By: #### L AB103, LAB17, [id number] ####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: KIM GONZALES ([phone])[facility] ([id number] Phosphate [Moles/Vol]on 09-16 Interpretation and review of laboratory results Normal [facility] Phosphate [Mass/Vol] 4.0 mg/dL 2.5 - 4 .5 mg/dL [facility] Progress Noteon 10-05-2023 Progress Note PHYSICAL THERAPY [facility] Treatment Note Name/MRN: Eben Cruz ([id number]) Date of : 1945 Age: 78 y.o. Room/Bed: 1C-130/1C-130 A Discharge Recommendation: Usp Facility Equipment Needed: No Other: He has [...] Minutes: 38 Minutes (FA, GT x 2) DIPLOMATIC INTERPRETER wore PPE in compliance with hospital guidelines and regulation when treating this patient. Brielle Adams, DIPLOMATIC INTERPRETER Normal [facility] Vital signsOrdered By: Cornell Valenzuela on 10-05-2023 Heart rate 78 /min bpm [facility] [employer] Work Phone: Vital signson 10-05-2023 Heart rate 76 /min bpm [facility] [employer] CALCIUM, IONIZEDon 4 CALCIUM IONIZED 4.30 mg/dL Normal 4.30-5.20 [facility] Comment on above: Performed By: #### L [id number] ####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: KIM GONZALES ([id number])[facility] ([facility])[address] [place] [address] PH, IONIZED CALCIUM 7.43 Normal 7.31-7.46 [facility] Comment on above: Performed By: #### L AB54 ####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: KIM GONZALES ([phone])[facility] ([facility])[address] [place] [address] CBC W Auto Differential pane l (Bld)on 10-04-2023 Basophils (Bld) [#/Vol] 0.1 10*3/uL 0.0 - 0.2 10*3/uL [facility] Basophils/100 WBC (Bld) 0.6 % 0.0 - 2.0 % [facility] Eosinophils (Bld) [#/Vol] 0.2 10*3/uL 0.0 - 0.5 10*3/uL [facility] Eosinophils/100 WBC (Bld) 2.0 % 0.0 - 6.0 % [facility] Erythrocyte distribution width (RBC) [Ratio] 13.4 % 11.5 - 15.0 % [facility] Hematocrit (Bld) [Volume fraction] 33.8 % Low 40.0 - 52.0 % [facility] Hemoglobin (Bld) [Mass/Vol] 10.3 g/dL Low 13.0 - 18.0 g/dL [facility] Immature granulocytes (Bld) [#/Vol] 0.1 10*3/uL High NINF - 0.1 10*3/uL [facility] Immature granulocytes/100 WBC (Bld) 1.0 % 0.0 - 2.0 % [facility] Interpretation and review of laboratory results Abnormal [facility] Lymphocytes (Bld) [#/Vol] 1.6 10*3/uL 1.0 - 4.3 10*3/uL [facility] Lymphocytes/100 WBC (Bld) 14.0 % Low 15.0 - 45.0 % [facility] MCH (RBC) [Entitic mass] 29.8 pg 26.0 - 34.0 pg [facility] MCHC (RBC) [Mass/Vol] 30.5 % 30.5 - 36.0 % [facility] MCV (RBC) [Entitic vol] 97.7 fL 77.0 - 99.0 fL [facility] Monocytes (Bld) [#/Vol] 0.8 10*3/uL 0.0 - 0.9 10*3/uL [facility] Monocytes/100 WBC (Bld) 7.5 % 5.0 - 13.0 % [facility] Neutrophils (Bld) [#/Vol] 8.4 10*3/uL High 1.8 - 7.5 10*3/uL [facility] Neutrophils/100 WBC (Bld) 74.9 % 38.0 - 82.0 % [facility] Nucleated RBC/100 WBC (Bld) [Ratio] 0.0 % [facility] Platelet mean volume (Bld) [Entitic vol] 10.8 fL 9.0 - 12.7 fL [facility] Platelets (Bld) [#/Vol] 459 10*3/uL High 140 - 440 10*3/uL [facility] RBC (Bld) [#/Vol] 3.46 10*6/uL Low 4.40 - 5.90 10*6/uL [facility] WBC (Bld) [#/Vol] 11.2 10*3/uL High 3.6 - 10.7 10*3/uL [facility] CBC WITH AUTO DIFFERENTIALon 10-04-2023 Basophils (Bld) [#/Vol] 0.1 10*3/uL Normal 0.0-0.2 [facility] Comment on above: Performed By: #### L [id number] ####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: KIM GONZALES ([id number])[facility] ([facility])[address] [place] [address] Basophils/100 WBC (Bld) 0.6 % Normal 0.0-2.0 [facility] Comment on above: Performed By: #### L [id number] ####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: KIM GONZALES ([phone])[facility] ([facility])[address] [place] [address] [place] Eosinophils (Bld) [#/Vol] 0.2 10*3/uL Normal 0.0-0.5 [facility] Comment on above: Performed By: #### L [id number] ####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: KIM GONZALES ([id number])[facility] ([facility])[address] [place] [address] Eosinophils/100 WBC (Bld) 2.0 % Normal 0.0-6.0 [facility] Comment on above: Performed By: #### L [id number] ####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: KIM GONZALES ([phone])[facility] ([facility])[address] [place] [address] [place] Erythrocyte distribution width (RBC) [Ratio] 13.4 % Normal 11.5-15.0 [facility] Comment on above: Performed By: #### L [id number] ####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: KIM GONZALES ([id number])[facility] ([address] Hematocrit (Bld) [Volume fraction] 33.8 % Low 40.0-52.0 [facility] Comment on above: Performed By: #### L [id number] ####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: KIM GONZALES ([id number])[facility])[address] [place] [address] Hemoglobin (Bld) [Mass/Vol] 10.3 g/dL Low 13.0-18.0 [facility] Comment on above: Performed By: #### L [id number] ####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: KIM GONZALES ([id number])[facility])[address] [place] [address] IMMATURE GRANS % 1.0 % Normal 0.0-2.0 [facility] Comment on above: Performed By: #### L [id number] ####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: KIM GONZALES ([id number])[facility])[address] [place] [address] IMMATURE GRANS ABSOLUTE 0.1 10*3/uL High <0.1 [facility] Comment on above: Performed By: #### L [id number] ####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: KIM GONZALES ([phone])[facility])[address] [place] [address] Lymphocytes (Bld) [#/Vol] 1.6 10*3/uL Normal 1.0-4.3 [facility] Comment on above: Performed By: #### L [id number] ####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: KIM GONZALES ([id number])[facility])[address] [place] [address] Lymphocytes/100 WBC (Bld) 14.0 % Low 15.0-45.0 [facility] Comment on above: Performed By: #### L [id number] ####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: KIM GONZALES ([id number])[facility])[address] [place] [address] MCH (RBC) [Entitic mass] 29.8 pg Normal 26.0-34.0 [facility] Comment on above: Performed By: #### L [id number] ####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: KIM GONZALES ([id number])[facility])[address] [place] [address] MCHC 30.5 % Normal 30.5-36.0 [facility] Comment on above: Performed By: #### L [id number] ####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: KIM GONZALES ([id number])[facility])[address] [place] [address] MCV (RBC) [Entitic vol] 97.7 fL Normal 77.0-99.0 [facility] Comment on above: Performed By: #### L [id number] ####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: KIM GONZALES ([id number])[facility])[address] [place] [address] Monocytes (Bld) [#/Vol] 0.8 10*3/uL Normal 0.0-0.9 [facility] Comment on above: Performed By: #### L [id number] ####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: KIM GONZALES ([id number])[facility])[address] [place] [address] Monocytes/100 WBC (Bld) 7.5 % Normal 5.0-13.0 [facility] Comment on above: Performed By: #### L [id number] ####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: KIM GONZALES ([id number])[facility])[address] [place] [address] NEUTROPHILS ABSOLUTE 8.4 10*3/uL High 1.8-7.5 [facility] Comment on above: Performed By: #### L [id number] ####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: KIM GONZALES ([id number])[facility])[address] [place] [address] Neutrophils/100 WBC (Bld) 74.9 % Normal 38.0-82.0 [facility] Comment on above: Performed By: #### L [id number] ####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: KIM [id number])[facility] ([facility])[address] [place] [address] NRBC 0.0 /100 WBCs Normal 0.0-2.0 [facility] Comment on above: Performed By: #### L [id number] ####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: KIM GONZALES ([id number])[facility])[address] [place] [address] Platelet mean volume (Bld) [Entitic vol] 10.8 fL Normal 9.0-12.7 [facility] Comment on above: Performed By: #### L [id number] ####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: KIM GONZALES ([id number])[facility])[address] [place] [address] Platelets (Bld) [#/Vol] 459 10*3/uL High 140-440 [facility] Comment on above: Performed By: #### L [id number] ####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: KIM GONZALES ([id number])[facility] ([facility])[address] [place] [address] RBC (Bld) [#/Vol] 3.46 10*6/uL Low 4.40-5.90 [facility] Comment on above: Performed By: #### L [id number] ####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: KIM GONZALES ([id number])[facility])[address] [place] [address] WBC (Bld) [#/Vol] 11.2 10*3/uL High 3.6-10.7 [facility] Comment on above: Performed By: #### L [id number] ####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: KIM GONZALES ([id number])[facility])[address] [place] [address] COMPREHENSIVE METABOLIC PANE Miguel Angel 10-04-2023 Albumin [Mass/Vol] 3.1 g/dL Low 3.5-5.0 [facility] Comment on above: Performed By: #### L AB103, LAB17, [id number] ####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: KIM GONZALES ([id number])[facility] [place] [address] [place] ALP [Catalytic activity/Vol] 102 U/L Normal 38-126 [facility] Comment on above: Performed By: #### L AB103, LAB17, [id number] ####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: KIM GONZALES ([phone])[facility] [place] [address] [place] ALT [Catalytic activity/Vol] 29 U/L Normal 0-49 [facility] Comment on above: Performed By: #### L AB103, LAB17, [id number] ####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: KIM GONZALES ([id number])[facility] ([facility])[address] [place] [address] Anion gap [Moles/Vol] 5 mmol/L Normal 3-13 [facility] Comment on above: Performed By: #### Barry DEJESUS, LAB17, [id number] ####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: KIM GONZALES ([id number])[facility] ([facility])[address] [place] [address] [place] AST [Catalytic activity/Vol] 32 U/L Normal 15-46 [facility] Comment on above: Performed By: #### Barry AB103, LAB17, [id number] ####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: KIM GONZALES ([id number])[facility] ([facility])[address] [place] [address] Bilirubin [Mass/Vol] 0.8 mg/dL Normal 0.2-1.3 [facility] Comment on above: Performed By: #### L AB103, LAB17, [id number] ####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: KIM GONZALES ([phone])[facility] ([facility])[address] [place] [address] [place] Calcium [Mass/Vol] 8.6 mg/dL Normal 8.4-10.4 [facility] Comment on above: Performed By: #### L AB103, LAB17, [id number] ####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: KIM GONZALES ([id number])[facility] ([facility])[address] Chloride [Moles/Vol] 105 mmol/L Normal 98-107 [facility] Comment on above: Performed By: #### L AB103, LAB17, [id number] ####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: KIM GONZALES ([id number])[facility])[address] [place] [address] CO2 [Moles/Vol] 28 mmol/L Normal 22-30 [facility] Comment on above: Performed By: #### L AB103, LAB17, [id number] ####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: KIM GONZALES ([id number])[facility])[address] [place] [address] Creatinine [Mass/Vol] 1.09 mg/dL Normal 0.66-1.[address] [facility] Comment on above: Performed By: #### Barry AB103, LAB17, [id number] ####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: KIM GONZALES ([id number])[facility])[address] [place] [address] GLOMERULAR FILTRATION RATE ML/MIN/1.73 SQ M.PREDICTED 68.6 mL/min/1.73m*2 Normal >60.0 [facility] Comment on above: Result Comment: Calc ulation based on the Chronic Kidney Disease Epidemiology Collaboration (CKD-EPI) equation refit without adjustment for race Performed By: #### L ABCintia, LAB17, [id number] ####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: KIM GONZALES ([id number])[facility] ([facility])[address] [place] [address] Glucose [Mass/Vol] 102 mg/dL High 70-100 [facility] Comment on above: Performed By: #### L AB103, LAB17, [id number] ####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: KIM GONZALES ([id number])[facility])[address] [place] [address] Potassium [Moles/Vol] 4.1 mmol/L Normal 3.5-5.[address] [facility] Comment on above: Performed By: #### L AB103, LAB17, [id number] ####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: KIM [id number])[facility] ([facility])[address] [place] [address] Protein [Mass/Vol] 6.5 g/dL Normal 6.3-8.2 [facility] Comment on above: Performed By: #### L AB103, LAB17, [id number] ####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: KIM GONZALES ([id number])[facility])[address] [place] [address] Sodium [Moles/Vol] 138 mmol/L Normal 135-145 [facility] Comment on above: Performed By: #### L AB103, LAB17, [id number] ####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: KIM GONZALES ([id number])[facility])[address] [place] [address] Urea nitrogen [Mass/Vol] 26 mg/dL High 9-20 [facility] Comment on above: Performed By: #### L AB103, LAB17, [id number] ####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: KIM GONZALES ([id number])[facility] ([facility])[address] [place] [address] Calcium.ionized [Moles/Vol]o n 10-04-2023 Calcium.ionized (Bld) [Moles/Vol] 4.30 mg/dL 4.30 - 5.20 mg/dL [facility] Interpretation and review of laboratory results Normal [facility] PH, IONIZED CALCIUM 7.43 7.31 - 7.46 [facility] Comprehensive metabolic 1998 panelon 10-04-2023 Albumin [Mass/Vol] 3.1 g/dL Low 3.5 - 5.0 g/dL [facility] ALP [Catalytic activity/Vol] 102 U/L 38 - 126 U/L [facility] ALT [Catalytic activity/Vol] 29 U/L 0 - 49 U/L [facility] Anion gap [Moles/Vol] 5 mmol/L 3 - 13 mmol/L [facility] AST [Catalytic activity/Vol] 32 U/L 15 - 46 U/L [facility] Bilirubin [Mass/Vol] 0.8 mg/dL 0.2 - 1 .3 mg/dL [facility] Calcium [Mass/Vol] 8.6 mg/dL 8.4 - 10. 4 mg/dL [facility] Chloride [Moles/Vol] 105 mmol/L 98 - 10 7 mmol/L [facility] CO2 [Moles/Vol] 28 mmol/L 22 - 30 mmol/L [facility] Creatinine [Mass/Vol] 1.09 mg/dL 0.66 - 1.25 mg/dL [facility] GFR/1.73 sq M.predicted MDRD (S/P/Bld) [Vol rate/Area] 68.6 mL/min/{1.73_m2} - PINF [facility] th Glucose [Mass/Vol] 102 mg/dL High 70 - 100 mg/dL [facility] Potassium [Moles/Vol] 4.1 mmol/L 3.5 - 5.1 mmol/L [facility] Protein [Mass/Vol] 6.5 g/dL 6.3 - 8.2 g/dL [facility] Sodium [Moles/Vol] 138 mmol/L 135 - 145 mmol/L [facility] Urea nitrogen [Mass/Vol] 26 mg/dL High 9 - 20 mg/dL [facility] ECG 12-LEADon 10-04-2023 ECG 12-LEAD IMPRESSION: Sinus rhythm Ventricular premature complex Borderline prolonged CA interval Nonspecific repol abnormality, lateral leads Compared to ECG 10/02/2023 12:56:47 No significant changes Electronically Signed On 10-04-2023 10:06:58 EDT by Davy Zapata [facility] Laboratory - Chemistry and C hemistry - challengeon 10-04-2023 Magnesium [Mass/Vol] 2.5 mg/dL High 1.6 - 2 .3 mg/dL [facility] MAGNESIUMon 10-04-2023 Magnesium [Mass/Vol] 2.5 mg/dL High 1.6-2.3 [facility] Comment on above: Performed By: #### L AB103, LAB17, [id number] ####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: KIM GONZALES ([id number])[facility] ([address] No Panel InformationOrdered By: Demetris López on 10-04-2023 Pathology Review [facility] Work Phone: [facility] Work Phone: No Panel Informationon 10-03 Interpretation and review of laboratory results Abnormal [facility] PHOSPHORUSon 10-04-2023 Phosphate [Mass/Vol] 4.1 mg/dL Normal 2.5-4.5 [facility] Comment on above: Performed By: #### L AB103, LAB17, [id number] ####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: KIM GONZALES ([id number])[facility] ([address] Phosphate [Moles/Vol]on 09-16 Interpretation and review of laboratory results Normal [facility] Phosphate [Mass/Vol] 4.1 mg/dL 2.5 - 4 .5 mg/dL [facility] Progress Noteon 10-04-2023 Progress Note OCCUPATIONAL THERAPY [facility] Treatment Note Name/MRN: Eben Cruz ([id number]) Date of : 1945 Age: 78 y.o. Room/Bed: 1C130/1C130 A Discharge Recommendation: Usp Facility Equipment Needed: Yes (FWW) Prior Level [...] 36 Minutes (1-ADL; 1- FUNCT ACT) [facility]APY [facility] Treatment Note Name/MRN: Eben Cruz ([id number]) Date of : 1945 Age: 78 y.o. Room/Bed: 1C-130/1C-130 A Discharge Recommendation: Usp Facility Equipment Needed: No Other: He has [...] 1302 Minutes 32 Brielle Metzger, PT Normal [facility] Progress Note ------- Attestation signed by Amos [...] portion of the care of this patient. [facility] Interventional Cardiology Progress Note CC: CAD HPI / Interval History: Mr. 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 On 09/18/23, he had total left hip replacement surgery at [facility] – [facility]. He had a NSTEMI and was transferred to [place], then to [facility] for a PCI. On 09/26/23, he had a PCI with IVL and NORIS placed to ostial RCA, LMCA, ostial and proximal LAD. His ostial LCX BISQUE TILE BURNER is heavily calcified- for medical management. Echocardiogram [...] left hip. Follow up arranged in his horse race timer office, Dr. Paredes on October 16 at [...] s/p left hip arthroplasty on 09/18/23 in [place] - Ortho consulted. Weight bearing as tolerated. X-ray stable. PT/OT. Will need SNF at discharge. To follow up with surgeon in [place]. HLD - Continue atorvastatin. LDL 39. HTN - Controlled. Had been running low. Continue Toprol xl. Add GDMT as BP tolerates. Debility - PT/OT. Will need SNF at discharge. Discharge likely tomorrow. Goals of care - Palliative care consulted and following. Discussed with Dr. Nichole. Follow up arranged with Dr. Paredes, his primary horse race timer, on October 16 at 2:15. Will need [...] (95.1 kg) Physical (more content not included)... [facility] Progress Note .Nutrition update completed. Chart reviewed. Patient to be monitored and followed by the diet poultry field service technician. Floor RD available upon request. Pt consuming 75% to 99% of meals.DEVORA Lares [facility] XR CHEST 1 VIEWon 10-04-2023 XR CHEST 1 VIEW [facility] 1945 [id number] Exam Date/Time: 10/04/2023 08:48 Procedure: XR CHEST [...] Signed Date/Time: 10/04/2023 8:58 AM EDT Normal [facility] XR Chest Single viewon 10-03 [facility] Radiology Study observation (narrative) [facility] XR Chest Single viewOrdered By: Toi Lopez on 10-04-2023 [facility] Work Phone: BODY FLUID CELL COUNT WITH R EFLEX DIFFon 10-03-2023 RBC, BODY FLUID (MANUAL) 515 RBC/uL Normal [facility] Comment on above: Performed By: #### L [id number], [id number], [id number] ####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: KIM GONZALES ([phone])[facility])[address] [place] [address] TYPE OF BODY FLUID Pleural Fluid Normal [facility] Comment on above: Result Comment: RIGH T PLEURAL CAVITY Performed By: #### L [id number], TEI539, [id number] ####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: KIM GONZALES ([phone])[facility] ([facility])[address] [place] [address] WBC, BODY FLUID (AUTOMATED) 0.289 x10*3/ul High <=0.005 [facility] Comment on above: Performed By: #### L [id number], IOU864, LLH6092 ####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: KIM GONZALES ([phone])[facility] ([facility])[address] [place] [address] BODY FLUID DIFFERENTIALon CELLS COUNTED TOTAL (#) IN BODY FLUID 200 Normal [facility] Comment on above: Performed By: #### L [id number], PGU113, SGX3949 ####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: KIM GONZALES ([phone])[facility] ([facility])[address] [place] [address] [place] EOSINOPHILS/100 LEUKOCYTES IN BODY FLUID BY MANUAL COUNT 1 % Normal [facility] Comment on above: Performed By: #### L [id number], DHN044, HSD2363 ####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: KIM GONZALES ([phone])[facility] ([facility])[address] [place] [address] [place] LYMPHOCYTES/100 LEUKOCYTES IN BODY FLUID BY MAN CT 42 % Normal [facility] Comment on above: Performed By: #### L [id number], ZGK757, EAC1786 ####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: KIM GONZALES ([phone])[facility] ([facility])[address] [place] [address] [place] MESOTHELIAL CELLS/100 LEUKOCYTES IN BODY FLUID BY MANUAL COUNT 1 % Normal [facility] Comment on above: Performed By: #### L PQ3210, BDQ760, GNM1245 ####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: KIM GONZALES ([phone])[facility] ([facility])[address] [place] [address] [place] MONOCYTES+MACROPHAGES /100 WBC IN BODY FLUID BY MAN CT 44 % Normal [facility] Comment on above: Performed By: #### L [id number], KJU104, NCL0221 ####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: KIM GONZALES ([phone])[facility] ([facility])[address] [place] [address] [place] Neutrophils/100 WBC (Bld) 12 % Normal [facility] Comment on above: Performed By: #### L [id number], ZOL687, ZKW7640 ####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: KIM GONZALES ([id number])[facility] ([facility])[address] [place] [address] [place] OTHER/100 LEUKOCYTES IN BODY FLUID BY MANUAL COUNT 1 % Normal [facility] Comment on above: Result Comment: RINA Vogel COMMENTS: Slide sent for pathology review Performed By: #### L [id number], VPY475, BJT7198 ####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: KIM GONZALES ([id number])[facility] ([facility])[address] [place] [address] CALCIUM, IONIZEDon CALCIUM IONIZED 4.20 mg/dL Low 4.30-5.20 [facility] Comment on above: Performed By: #### L AB54 ####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: KIM GONZALES ([phone])[facility] ([facility])[address] [place] [address] PH, IONIZED CALCIUM 7.42 Normal 7.31-7.46 [facility] Comment on above: Performed By: #### L AB54 ####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: KIM GONZALES ([phone])[facility] ([facility])[address] [place] [address] CBC W Auto Differential pane l (Bld)on 10-03-2023 Basophils (Bld) [#/Vol] 0.1 10*3/uL 0.0 - 0.2 10*3/uL [facility] Basophils/100 WBC (Bld) 0.4 % 0.0 - 2.0 % [facility] [employer] Eosinophils (Bld) [#/Vol] 0.2 10*3/uL 0.0 - 0.5 10*3/uL [facility] [employer] Eosinophils/100 WBC (Bld) 1.1 % 0.0 - 6.0 % [employer] Erythrocyte distribution width (RBC) [Ratio] 13.3 % 11.5 - 15.0 % [facility] [employer] Hematocrit (Bld) [Volume fraction] 34.0 % Low 40.0 - 52.0 % [employer] Hemoglobin (Bld) [Mass/Vol] 10.5 g/dL Low 13.0 - 18.0 g/dL [facility] [employer] Immature granulocytes (Bld) [#/Vol] 0.2 10*3/uL High NINF - 0.1 10*3/uL [facility] Immature granulocytes/100 WBC (Bld) 1.1 % 0.0 - 2.0 % [facility] [employer] Interpretation and review of laboratory results Abnormal [facility] [employer] Lymphocytes (Bld) [#/Vol] 1.4 10*3/uL 1.0 - 4.3 10*3/uL [facility] Lymphocytes/100 WBC (Bld) 10.4 % Low 15.0 - 45.0 % [facility] MCH (RBC) [Entitic mass] 30.5 pg 26.0 - 34.0 pg [facility] MCHC (RBC) [Mass/Vol] 30.9 % 30.5 - 36.0 % [facility] MCV (RBC) [Entitic vol] 98.8 fL 77.0 - 99.0 fL [facility] Monocytes (Bld) [#/Vol] 0.9 10*3/uL 0.0 - 0.9 10*3/uL [facility] Monocytes/100 WBC (Bld) 6.4 % 5.0 - 13.0 % [facility] Neutrophils (Bld) [#/Vol] 11.2 10*3/uL High 1.8 - 7.5 10*3/uL [facility] Neutrophils/100 WBC (Bld) 80.6 % 38.0 - 82.0 % [facility] Nucleated RBC/100 WBC (Bld) [Ratio] 0.0 % [facility] [employer] Platelet mean volume (Bld) [Entitic vol] 10.7 fL 9.0 - 12.7 fL [facility] Platelets (Bld) [#/Vol] 478 10*3/uL High 140 - 440 10*3/uL [facility] RBC (Bld) [#/Vol] 3.44 10*6/uL Low 4.40 - 5.90 10*6/uL [facility] WBC (Bld) [#/Vol] 13.8 10*3/uL High 3.6 - 10.7 10*3/uL [facility] CBC WITH AUTO DIFFERENTIALon 10-03-2023 Basophils (Bld) [#/Vol] 0.1 10*3/uL Normal 0.0-0.2 [facility] Comment on above: Performed By: #### L [id number] ####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: KIM GONZALES ([id number])[address] Basophils/100 WBC (Bld) 0.4 % Normal 0.0-2.0 [facility] Comment on above: Performed By: #### L [id number] ####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: KIM GONZAELS ([phone])[facility])[address] [place] [address] Eosinophils (Bld) [#/Vol] 0.2 10*3/uL Normal 0.0-0.5 [facility] Comment on above: Performed By: #### L [id number] ####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: KIM GONZALES ([id number])[address] Eosinophils/100 WBC (Bld) 1.1 % Normal 0.0-6.0 [facility] Comment on above: Performed By: #### L [id number] ####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: KIM GONZALES ([id number])[address] Erythrocyte distribution width (RBC) [Ratio] 13.3 % Normal 11.5-15.0 [facility] Comment on above: Performed By: #### L [id number] ####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: KIM GONZALES ([phone])[address] Hematocrit (Bld) [Volume fraction] 34.0 % Low 40.0-52.0 [facility] Comment on above: Performed By: #### L [id number] ####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: KIM GONZALES ([id number])[address] Hemoglobin (Bld) [Mass/Vol] 10.5 g/dL Low 13.0-18.0 [facility] Comment on above: Performed By: #### L [id number] ####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: KIM GONZALES ([id number])[address] IMMATURE GRANS % 1.1 % Normal 0.0-2.0 [facility] Comment on above: Performed By: #### L [id number] ####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: KIM GONZALES ([phone])[facility])[address] [place] [address] IMMATURE GRANS ABSOLUTE 0.2 10*3/uL High <0.1 [facility] Comment on above: Performed By: #### L [id number] ####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: KIM GONZALES ([id number])[facility])[address] [place] [address] Lymphocytes (Bld) [#/Vol] 1.4 10*3/uL Normal 1.0-4.3 [facility] Comment on above: Performed By: #### L [id number] ####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: KIM GONZALES ([phone])[address] Lymphocytes/100 WBC (Bld) 10.4 % Low 15.0-45.0 [facility] Comment on above: Performed By: #### L [id number] ####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: KIM GONZALES ([phone])[facility])[address] [place] [address] MCH (RBC) [Entitic mass] 30.5 pg Normal 26.0-34.0 [facility] Comment on above: Performed By: #### L [id number] ####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: KIM GONZALES ([id number])[facility])[address] [place] [address] MCHC 30.9 % Normal 30.5-36.0 [facility] Comment on above: Performed By: #### L [id number] ####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: KIM GONZALES ([phone])[facility])[address] [place] [address] MCV (RBC) [Entitic vol] 98.8 fL Normal 77.0-99.0 [facility] Comment on above: Performed By: #### L [id number] ####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: KIM GONZALES ([phone])[facility])[address] [place] [address] Monocytes (Bld) [#/Vol] 0.9 10*3/uL Normal 0.0-0.9 [facility] Comment on above: Performed By: #### L [id number] ####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: KIM GONZALES ([phone])[facility] ([facility])[address] [place] [address] Monocytes/100 WBC (Bld) 6.4 % Normal 5.0-13.0 [facility] Comment on above: Performed By: #### L [id number] ####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: KIM GONZALES ([id number])[facility] ([facility])[address] [place] [address] NEUTROPHILS ABSOLUTE 11.2 10*3/uL High 1.8-7.5 [facility] Comment on above: Performed By: #### L [id number] ####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: KIM GONZALES ([phone])[facility])[address] [place] [address] Neutrophils/100 WBC (Bld) 80.6 % Normal 38.0-82.0 [facility] Comment on above: Performed By: #### L [id number] ####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: KIM GONZALES ([phone])[facility] ([facility])[address] [place] [address] NRBC 0.0 /100 WBCs Normal 0.0-2.0 [facility] Comment on above: Performed By: #### L [id number] ####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: KIM GONZALES ([phone])[facility] ([facility])[address] [place] [address] Platelet mean volume (Bld) [Entitic vol] 10.7 fL Normal 9.0-12.7 [facility] Comment on above: Performed By: #### L [id number] ####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: KIM GONZALES ([id number])[facility] ([facility])[address] [place] [address] Platelets (Bld) [#/Vol] 478 10*3/uL High 140-440 [facility] Comment on above: Performed By: #### L [id number] ####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: KIM GONZALES ([phone])[facility] ([facility])[address] [place] [address] RBC (Bld) [#/Vol] 3.44 10*6/uL Low 4.40-5.90 [facility] Comment on above: Performed By: #### L [id number] ####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: KIM GONZALES ([id number])[facility] ([facility])[address] [place] [address] WBC (Bld) [#/Vol] 13.8 10*3/uL High 3.6-10.7 [facility] Comment on above: Performed By: #### L [id number] ####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: KIM GONZALES ([phone])[facility])[address] [place] [address] COMPREHENSIVE METABOLIC PANE Miguel Angel 10-03-2023 Albumin [Mass/Vol] 3.2 g/dL Low 3.5-5.0 [facility] Comment on above: Performed By: #### L AB17, BKR116, NWQ281 ####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: KIM GONZALES ([phone])[facility] ([facility])[address] [place] [address] ALP [Catalytic activity/Vol] 101 U/L Normal 38-126 [facility] Comment on above: Performed By: #### L AB17, FSL976, AGG000 ####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: KIM GONZALES ([phone])[facility])[address] [place] [address] ALT [Catalytic activity/Vol] 32 U/L Normal 0-49 [facility] Comment on above: Performed By: #### L AB17, FMW978, NVD321 ####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: KIM GONZALES ([id number])[facility])[address] [place] [address] Anion gap [Moles/Vol] 6 mmol/L Normal 3-13 [facility] Comment on above: Performed By: #### L AB17, PWU875, QUJ130 ####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: KIM GONZALES ([phone])[facility] [place] [address] [place] AST [Catalytic activity/Vol] 30 U/L Normal 15-46 [facility] Comment on above: Performed By: #### L AB17, VND854, NZE154 ####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: KIM GONZALES ([phone])[facility] [place] [address] Bilirubin [Mass/Vol] 0.8 mg/dL Normal 0.2-1.3 [facility] Comment on above: Performed By: #### L AB17, EDF677, WHP851 ####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: KIM GONZALES ([phone])[facility] ([facility])[address] [place] [address] Calcium [Mass/Vol] 8.5 mg/dL Normal 8.4-10.4 [facility] Comment on above: Performed By: #### Barry AB17, MCC588, TKH939 ####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: KIM GONZALES ([phone])[facility] [place] [address] [place] Chloride [Moles/Vol] 105 mmol/L Normal 98-107 [facility] Comment on above: Performed By: #### L AB17, WXG404, INU148 ####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: KIM GONZALES ([phone])[facility] [place] [address] [place] CO2 [Moles/Vol] 26 mmol/L Normal 22-30 [facility] Comment on above: Performed By: #### L AB17, JTB414, GUE608 ####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: KIM GONZALES ([phone])[facility] ([facility])[address] [place] [address] [place] Creatinine [Mass/Vol] 1.19 mg/dL Normal 0.66-1.25 [facility] Comment on above: Performed By: #### L AB17, HJW367, WBP445 ####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: KIM GONZALES ([phone])[facility])[address] [place] [address] [place] GLOMERULAR FILTRATION RATE ML/MIN/1.73 SQ M.PREDICTED 61.8 mL/min/1.73m*2 Normal >60.0 [facility] Comment on above: Result Comment: Calc ulation based on the Chronic Kidney Disease Epidemiology Collaboration (CKD-EPI) equation refit without adjustment for race Performed By: #### L AB17, BJC916, INX057 ####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: KIM GONZALES ([phone])[facility] ([facility])[address] [place] [address] [place] Glucose [Mass/Vol] 130 mg/dL High 70-100 [facility] Comment on above: Performed By: #### L AB17, YMJ498, MDC814 ####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: KIM GONZALES ([id number])[facility])[address] [place] [address] Potassium [Moles/Vol] 4.1 mmol/L Normal 3.5-5.[address] [facility] Comment on above: Performed By: #### L AB17, CHK381, YGC407 ####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: KIM GONZALES ([phone])[facility])[address] [place] [address] Protein [Mass/Vol] 6.7 g/dL Normal 6.3-8.2 [facility] Comment on above: Performed By: #### L AB17, FKE399, MFK821 ####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: KIM GONZALES ([phone])[facility] ([facility])[address] [place] [address] [place] Sodium [Moles/Vol] 137 mmol/L Normal 135-145 [facility] Comment on above: Performed By: #### L AB17, TUU205, SRM806 ####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: KIM GONZALES ([phone])[facility])[address] [place] [address] [place] Urea nitrogen [Mass/Vol] 27 mg/dL High 9-20 [facility] Comment on above: Performed By: #### L AB17, UTG554, AOB089 ####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: KIM GONZALES ([phone])[facility] [place] [address] CULTURE ANAEROBICon 10-03-19 24 CULTURE ANAEROBIC ANAEROBIC CULTURE Re ference No growth at 5 days [ S = SUSCEPTIBLE R = RESISTANT I = INTERMEDIATE S-DD = Susceptible-dose dependent NS = Non-susceptible NO = No Interpretation ] Normal [facility] Comment on above: Performed By: #### L [id number] #### 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: KIM GONZALES ([phone]) [facility] [address] [place] [address] CULTURE, AEROBIC BACTERIA WI TH GRAM STAINon [...] Non-susceptible NO = No Interpretation ] Normal [facility] Comment on above: Performed By: #### L [id number] ####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: KIM GONZALES ([phone])[facility])[address] [place] [address] Calcium.ionized [Moles/Vol]O rdered By: Lucita Mccloud on 10-03-2023 Calcium.ionized (Bld) [Moles/Vol] 4.20 mg/dL Low 4.30 - 5.20 mg/dL [facility] Interpretation and review of laboratory results Abnormal [facility] PH, IONIZED CALCIUM 7.42 7.31 - 7.46 [facility] Comprehensive metabolic 1998 panelon 10-03-2023 Albumin [Mass/Vol] 3.2 g/dL Low 3.5 - 5.0 g/dL [facility] ALP [Catalytic activity/Vol] 101 U/L 38 - 126 U/L [facility] ALT [Catalytic activity/Vol] 32 U/L 0 - 49 U/L [facility] Anion gap [Moles/Vol] 6 mmol/L 3 - 13 mmol/L [facility] AST [Catalytic activity/Vol] 30 U/L 15 - 46 U/L [facility] Bilirubin [Mass/Vol] 0.8 mg/dL 0.2 - 1 .3 mg/dL [facility] Calcium [Mass/Vol] 8.5 mg/dL 8.4 - 10. 4 mg/dL [facility] Chloride [Moles/Vol] 105 mmol/L 98 - 10 7 mmol/L [facility] CO2 [Moles/Vol] 26 mmol/L 22 - 30 mmol/L [facility] Creatinine [Mass/Vol] 1.19 mg/dL 0.66 - 1.25 mg/dL [facility] GFR/1.73 sq M.predicted MDRD (S/P/Bld) [Vol rate/Area] 61.8 mL/min/{1.73_m2} - PINF [facility] th Glucose [Mass/Vol] 130 mg/dL High 70 - 100 mg/dL [facility] Potassium [Moles/Vol] 4.1 mmol/L 3.5 - 5.1 mmol/L [facility] Protein [Mass/Vol] 6.7 g/dL 6.3 - 8.2 g/dL [facility] Sodium [Moles/Vol] 137 mmol/L 135 - 145 mmol/L [facility] Urea nitrogen [Mass/Vol] 27 mg/dL High 9 - 20 mg/dL [facility] Consulton 10-03-2023 Consult Ortho Consult Patient: Eben Cruz Date of : 1945 Acct: [id number] PCP: Iwona Stewart Date of Admission: 09/25/2023 Date of Service: Pt seen/examined on 10/02/2023 Chief Complaint: S/p L anterior hip arthroplasty 09/17 History Of Present Illness: This is a 78 y.o. male status post left anterior hip arthroplasty on 09/[address] Schreiber in [place]. Patient was transferred to [facility] for cardiac cath after surgery. This is a failed attempt therefore he was transferred to [facility] for further cardiac care. He states he [...] 09/26/2023 Performed by Amos Nichole MD at [facility] Cardiac Cath/EP Lab CARDIAC CATHETERIZATION N/A 09/26/2023 Performed by Amos Nichole MD at [facility] Cardiac Cath/EP Lab HERNIA REPAIR INVASIVE VASCULAR PROCEDURE N/A 09/26/2023 Performed by Amos Nichole MD at [facility] Cardiac Cath/EP Lab JOINT REPLACEMENT both hip [...] mg, Rectal, q6h PRN, Ashleigh Perkins Puliafico, EXECUTIVE CREATIVE DIRECTOR - GAS LEAK INSPECTOR amiodarone (Pacerone) tablet 400 mg, 400 mg, Oral, BID, Elisa Goldstein, EXECUTIVE CREATIVE DIRECTOR - GAS LEAK INSPECTOR, 400 mg at 10/02/232037 [Held by provider] apixaban (Eliquis) tablet 5 mg, 5 mg, Oral, BID, Ashleigh Perkins Puliafico, EXECUTIVE CREATIVE DIRECTOR - GAS LEAK INSPECTOR, 5 mg at 10/02/23845 ascorbic acid (Vitamin C) tablet 500 mg, 500 mg, Oral, Daily, Ashleigh B Puliafico, EXECUTIVE CREATIVE DIRECTOR - GAS LEAK INSPECTOR, 500 mg at 10/02/23 0846 aspirin EC tablet 81 mg, 81 mg, Oral, Daily, Ashleigh Perkins Puliafico, EXECUTIVE CREATIVE DIRECTOR - GAS LEAK INSPECTOR, 81 mg at 10/02/23 0845 atorvastatin (Lipitor) tablet 40 mg, 40 mg, Oral, Daily, Ashleigh B Puliafico, EXECUTIVE CREATIVE DIRECTOR - GAS LEAK INSPECTOR, 40 mg at 10/02/23 0846 clopidogrel (Plavix) tablet 75 mg, 75 mg, Oral, Daily, Ashleigh Perkins Puliafico, EXECUTIVE CREATIVE DIRECTOR - GAS LEAK INSPECTOR, 75 mg at 10/02/23 0845 ipratropium-albuterol (Duo-Neb) 0.5-2.5 mg/3 mL nebulizer solution 3 mL, 3 mL, Nebulization, q8h PRN, Elisa Goldstein, EXECUTIVE CREATIVE DIRECTOR - GAS LEAK INSPECTOR, 3 mL at 10/02/232155 melatonin tablet 10 [...] mg, Oral, qAM AC, Ashleigh Perkins Puliafico, EXECUTIVE CREATIVE DIRECTOR - GAS LEAK INSPECTOR, 40 mg at 10/01/23 0548 polyethylene glycol (PEG) 3350 (Miralax) packet 17 g, 17 g, Oral, Daily, Yajaira Thakkar, EXECUTIVE CREATIVE DIRECTOR - GAS LEAK INSPECTOR, 17 g at 09/29/23 0750 promethazine (Phenergan) tablet 12.5 mg, 12.5 mg, Oral, q6h PRN, Cliff Cast Jr., MD [Held by provider] spironolactone (Aldactone) tablet 12.5 mg, 12.5 mg, Oral, Daily, Elisa Goldstein EXECUTIVE CREATIVE DIRECTOR - G[employer] LEAK INSPECTOR, 12.5 mg at 09/27/23 0906 [Held by provider] torsemide (Demadex) tablet 10 mg, 10 mg, Oral, Daily, Cliff Cast Jr., MD, 10 mg at 10/01/23 0757 [Held by provider] valsartan (Diovan) tablet 40 mg, 40 mg, Oral, Daily, Elisa Goldstein APRN - GAS LEAK INSPECTOR, 40 mg at 09/27/23 1045 Allergies: Entresto [sacubitril-valsartan] and Wool alcohol [lanolin] Social History: Social History Socioeconomic History Marital status: Spouse name: Not on file Number of children: Not on file Years of education: Not on file Highest education level: Not on file Occupational History N (more content not included)... Normal [facility] ECG 12-LEADon 10-03-2023 ECG 12-LEAD IMPRESSION: Sinus rhythm Multiple ventricular premature complexes Nonspecific repol abnormality, diffuse leads Compared to ECG 10/02/2023 07:16:43 No significant changes Electronically Signed On 10-03-2023 12:52:50 EDT by Harry Thurman Normal [facility] LaboratoryOrdered By: Espinoza Swab on 10-03-2023 Fluid Nom (Body fld) Pleural Fluid S [facility] - Chemistry and C hemistry - challengeon 10-03-2023 Magnesium [Mass/Vol] 2.4 mg/dL High 1.6 - 2 .3 mg/dL [facility] - Hematology and Cell countsOrdered By: Renetta Saunders on 10-03-2023 Cells Counted Total (Body fld) [#] 200 [facility] Eosinophils/100 WBC Manual cnt (Body fld) 1 % [facility] Lymphocytes/100 WBC (Bld) 42 % [facility] Macrophages/100 WBC Manual cnt (Body fld) 44 % [facility] Mesothelial cells/100 WBC Manual cnt (Body fld) 1 % [facility] Neutrophils/100 WBC (Body fld) 12 % [facility] - Hematology and Cell countsOrdered By: Espinoza Swab on 10-03-2023 RBC Manual cnt (Body fld) [#/Vol] 515 RBC/uL [facility] WBC (Body fld) [#/Vol] 0.289 10*3/uL High NINF [facility] MAGNESIUMon 10-03-2023 Magnesium [Mass/Vol] 2.4 mg/dL High 1.6-2.3 [facility] Comment on above: Performed By: #### L AB17, [id number], [id number] ####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: KIM GONZALES ([phone])[facility] ([facility])[address] [place] [address] No Panel InformationOrdered By: Renetta Saunders on 10-03-2023 Other Cells %, Fluid 1 % [facility] [employer] No Panel InformationOrdered By: Espinoza Swab on 10-03-2023 Interpretation and review of laboratory results Abnormal [facility] No Panel InformationOrdered By: Harry Thurman on 10-03-2023 P Brooten 46 degrees [facility] [employer] Work Phone: CA Interval 196 ms [facility] [employer] Work Phone: QRS Brooten 8 degrees [facility] [employer] Phone: QRSD Interval 97 ms [facility] [employer] Work Phone: QT Interval 401 ms [facility] [employer] Phone: QTC Interval 455 ms [facility] [employer] Work Phone: T Wave Brooten 191 degrees [facility] [employer] Phone: [facility] Work Phone: No Panel Informationon 10-02 CV EPIPHANY [facility] RADIOLOGY SYSTEM [facility] RADIOLOGY SYSTEM [facility] Radiology Study observation (narrative) [facility] Interpretation and review of laboratory results Abnormal [facility] No Panel InformationOrdered By: Carri Todd on 10-03-2023 [facility] [employer] Work Phone: Nursing Noteon 10-03-2023 Nursing Note [...] procedure well.Patient transferred back to . Normal [facility] PATHOLOGY REVIEWon PATHOLOGY REVIEW Normal [facility] Comment on above: Result Comment: Rare benign mesothelial cells, mixed inflammation and blood. No malignant cells identified. Darryn López DO. Performed By: #### L [id number], [id number], [id number] ####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: KIM GONZALES ([phone])[facility] ([facility])[address] [place] [address] PHOSPHORUSon 10-03-2023 Phosphate [Mass/Vol] 4.2 mg/dL Normal 2.5-4.5 [facility] Comment on above: Performed By: #### L AB17, [id number], [id number] ####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: KIM GONZALES ([id number])[facility] ([facility] [place] [address] Phosphate [Moles/Vol]on 09-16 Interpretation and review of laboratory results Normal [facility] Phosphate [Mass/Vol] 4.2 mg/dL 2.5 - 4 .5 mg/dL [facility] Progress Noteon 10-03-2023 Progress Note OCCUPATIONAL THERAPY [facility] Treatment Note Name/MRN: Eben Cruz ([id number]) Date of : 1945 Age: 78 y.o. Room/Bed: 1C-130/1C-130 A Discharge Recommendation: [facility] Facility Equipment Needed: (defer to next level of care) Prior Level of Function ADL Assistance: Independent Ambulation Assistance: Independent Transfer Assistance: Independent Assessment Pt SOB throughout on 2L O2, sats remain >93%. Mod assist bed mobility and STS. Min assist functional mobility short distance and chair transfer with FWW. Recommend residential facility at discharge. Subjective Pt in supine [...] Out 1423 Minutes 16 Yamile Moraes OTR/L [facility] Progress Note PHYSICAL THERAPY [facility] Treatment Note Name/MRN: Eben Cruz ([id number]) Date of : 1945 Age: 78 y.o. Room/Bed: 1C-130/1C-130 A Discharge Recommendation: [facility] Facility Equipment Needed: No Other: He has [...] Pt ambs with downward gaze and MARISA roving can tender to RW. Tactile cues to bring MARISA [...] Raw Score (No Stairs) : 12 [facility] Score: Walked 25 ft or more (i.e. [...] Out 0815 Minutes 25 Marcelo Gray, PT [facility] US GUIDED THORACENTESISon US GUIDED THORACENTESIS Patient [...] Electronically Signed Date/Time: 10/03/2023 11:51 AM EDT [facility] Vital signsOrdered By: Kimmie Thurman on 10-03-2023 Heart rate 77 /min bpm [facility] [employer] Work Phone: CALCIUM, IONIZEDon 4 CALCIUM IONIZED 4.00 mg/dL Low 4.30-5.20 [facility] Comment on above: Performed By: #### L [id number] ####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: KIM GONZALES ([id number])[facility] ([facility])[address] [place] [address] PH, IONIZED CALCIUM 7.53 High 7.31-7.46 [facility] Comment on above: Performed By: #### L AB54 ####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: KIM GONZALES ([phone])[facility] ([facility])[address] [place] [address] CARECOORDon 10-02-2023 CARECOORD This TCC spoke with Jennifer from admissions at [facility] [phone]. At this time, there is NO auth or P2P pending. [facility] is willing to accept the pt for either IPR or SNF LOC. The only beds they have available at this time is for their IPR. There are no available beds on the SNF side. [facility] states he has skillable needs [...] auth and to assist as needed. Normal [facility] CARECOORD Pt having cardiovers ion today and possible thoracentesis tomorrow 10/02. TCC attempted to call Jennifer with admissions at [facility] to check on the P2P pending status. Left HIPAA appropriate message for Jennifer to return call. TCC to follow and assist as needed. Normal [facility] CBC W Auto Differential pane l (Bld)on 10-02-2023 Basophils (Bld) [#/Vol] 0.1 10*3/uL 0.0 - 0.2 10*3/uL [facility] Basophils/100 WBC (Bld) 0.4 % 0.0 - 2.0 % [facility] Eosinophils (Bld) [#/Vol] 0.3 10*3/uL 0.0 - 0.5 10*3/uL [facility] Eosinophils/100 WBC (Bld) 2.5 % 0.0 - 6.0 % [facility] Erythrocyte distribution width (RBC) [Ratio] 13.3 % 11.5 - 15.0 % [facility] Hematocrit (Bld) [Volume fraction] 31.9 % Low 40.0 - 52.0 % [facility] Hemoglobin (Bld) [Mass/Vol] 9.6 g/dL Low 13.0 - 18.0 g/dL [facility] Immature granulocytes (Bld) [#/Vol] 0.1 10*3/uL High NINF - 0.1 10*3/uL [facility] Immature granulocytes/100 WBC (Bld) 1.1 % 0.0 - 2.0 % [facility] Interpretation and review of laboratory results Abnormal [facility] Lymphocytes (Bld) [#/Vol] 1.4 10*3/uL 1.0 - 4.3 10*3/uL [facility] Lymphocytes/100 WBC (Bld) 12.2 % Low 15.0 - 45.0 % [facility] MCH (RBC) [Entitic mass] 29.3 pg 26.0 - 34.0 pg [facility] MCHC (RBC) [Mass/Vol] 30.1 % Low 30.5 - 36.0 % [facility] MCV (RBC) [Entitic vol] 97.3 fL 77.0 - 99.0 fL [facility] Monocytes (Bld) [#/Vol] 1.0 10*3/uL High 0.0 - 0.9 10*3/uL [facility] Monocytes/100 WBC (Bld) 8.3 % 5.0 - 13.0 % [facility] Neutrophils (Bld) [#/Vol] 8.7 10*3/uL High 1.8 - 7.5 10*3/uL [facility] Neutrophils/100 WBC (Bld) 75.5 % 38.0 - 82.0 % [facility] Nucleated RBC/100 WBC (Bld) [Ratio] 0.0 % [facility] Platelet mean volume (Bld) [Entitic vol] 11.1 fL 9.0 - 12.7 fL [facility] Platelets (Bld) [#/Vol] 426 10*3/uL 140 - 440 10*3/uL [facility] RBC (Bld) [#/Vol] 3.28 10*6/uL Low 4.40 - 5.90 10*6/uL [facility] WBC (Bld) [#/Vol] 11.5 10*3/uL High 3.6 - 10.7 10*3/uL [facility] CBC WITH AUTO DIFFERENTIALon 10-02-2023 Basophils (Bld) [#/Vol] 0.1 10*3/uL Normal 0.0-0.2 [facility] Comment on above: Performed By: #### L [id number] ####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: KIM GONZALES ([id number])[facility])[address] [place] [address] Basophils/100 WBC (Bld) 0.4 % Normal 0.0-2.0 [facility] Comment on above: Performed By: #### L [id number] ####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: KIM GONZALES ([id number])[facility])[address] [place] [address] [place] Eosinophils (Bld) [#/Vol] 0.3 10*3/uL Normal 0.0-0.5 [facility] Comment on above: Performed By: #### L [id number] ####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: KIM GONZALES ([id number])[facility])[address] [place] [address] [place] Eosinophils/100 WBC (Bld) 2.5 % Normal 0.0-6.0 [facility] Comment on above: Performed By: #### L [id number] ####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: KIM [id number])[facility] [place] [address] Erythrocyte distribution width (RBC) [Ratio] 13.3 % Normal 11.5-15.0 [facility] Comment on above: Performed By: #### L [id number] ####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: KIM GONZALES ([id number])[facility])[address] [place] [address] Hematocrit (Bld) [Volume fraction] 31.9 % Low 40.0-52.0 [facility] Comment on above: Performed By: #### L [id number] ####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: KIM GONZALES ([id number])[facility])[address] [place] [address] Hemoglobin (Bld) [Mass/Vol] 9.6 g/dL Low 13.0-18.0 [facility] Comment on above: Performed By: #### L [id number] ####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: KIM GONZALES ([id number])[facility])[address] [place] [address] IMMATURE GRANS % 1.1 % Normal 0.0-2.0 [facility] Comment on above: Performed By: #### L [id number] ####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: KIM GONZALES ([id number])[facility])[address] [place] [address] IMMATURE GRANS ABSOLUTE 0.1 10*3/uL High <0.1 [facility] Comment on above: Performed By: #### L [id number] ####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: KIM GONZALES ([id number])[facility])[address] [place] [address] Lymphocytes (Bld) [#/Vol] 1.4 10*3/uL Normal 1.0-4.3 [facility] Comment on above: Performed By: #### L [id number] ####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: KIM GONZALES ([id number])[facility])[address] [place] [address] Lymphocytes/100 WBC (Bld) 12.2 % Low 15.0-45.0 [facility] Comment on above: Performed By: #### L [id number] ####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: KIM GONZALES ([id number])[facility])[address] [place] [address] MCH (RBC) [Entitic mass] 29.3 pg Normal 26.0-34.0 [facility] Comment on above: Performed By: #### L [id number] ####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: KIM GONZALES ([id number])[facility])[address] [place] [address] MCHC 30.1 % Low 30.5-36.0 [facility] Comment on above: Performed By: #### L [id number] ####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: KIM GONZALES ([id number])[facility])[address] [place] [address] MCV (RBC) [Entitic vol] 97.3 fL Normal 77.0-99.0 [facility] Comment on above: Performed By: #### L [id number] ####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: KIM GONZALES ([id number])[facility])[address] [place] [address] Monocytes (Bld) [#/Vol] 1.0 10*3/uL High 0.0-0.9 [facility] Comment on above: Performed By: #### L [id number] ####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: KIM GONZALES ([id number])[facility])[address] [place] [address] Monocytes/100 WBC (Bld) 8.3 % Normal 5.0-13.0 [facility] Comment on above: Performed By: #### L [id number] ####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: KIM GONZALES ([id number])[facility])[address] [place] [address] NEUTROPHILS ABSOLUTE 8.7 10*3/uL High 1.8-7.5 [facility] Comment on above: Performed By: #### L [id number] ####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: KIM GONZALES ([id number])[facility] ([facility])[address] [place] [address] Neutrophils/100 WBC (Bld) 75.5 % Normal 38.0-82.0 [facility] Comment on above: Performed By: #### L [id number] ####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: KIM GONZALES ([id number])[facility] ([facility])[address] [place] [address] NRBC 0.0 /100 WBCs Normal 0.0-2.0 [facility] Comment on above: Performed By: #### L [id number] ####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: KIM GONZALES ([id number])[facility] ([facility])[address] [place] [address] Platelet mean volume (Bld) [Entitic vol] 11.1 fL Normal 9.0-12.7 [facility] Comment on above: Performed By: #### L [id number] ####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: KIM GONZALES ([id number])[facility] ([facility])[address] [place] [address] Platelets (Bld) [#/Vol] 426 10*3/uL Normal 140-440 [facility] Comment on above: Performed By: #### L [id number] ####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: KIM GONZALES ([id number])[facility] ([facility])[address] [place] [address] RBC (Bld) [#/Vol] 3.28 10*6/uL Low 4.40-5.90 [facility] Comment on above: Performed By: #### L [id number] ####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: KIM GONZALES ([id number])[facility] ([facility])[address] [place] [address] [place] WBC (Bld) [#/Vol] 11.5 10*3/uL High 3.6-10.7 [facility] Comment on above: Performed By: #### L [id number] ####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: KIM GONZALES ([id number])[facility])[address] [place] [address] COMPREHENSIVE METABOLIC PANE Miguel Angel 10-02-2023 Albumin [Mass/Vol] 3.0 g/dL Low 3.5-5.0 [facility] Comment on above: Performed By: #### L AB17, [id number], [id number] ####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: KIM GONZALES ([id number])[facility])[address] [place] [address] ALP [Catalytic activity/Vol] 96 U/L Normal 38-126 [facility] Comment on above: Performed By: #### L AB17, GCZ655, [id number] ####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: KIM GONZALES ([id number])[facility])[address] [place] [address] ALT [Catalytic activity/Vol] 38 U/L Normal 0-49 [facility] Comment on above: Performed By: #### L AB17, ATQ823, ETA425 ####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: KIM GONZALES ([phone])[facility] ([facility])[address] [place] [address] Anion gap [Moles/Vol] 8 mmol/L Normal 3-13 [facility] Comment on above: Performed By: #### L AB17, [id number], [id number] ####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: KIM GONZALES ([id number])[facility] ([facility])[address] [place] [address] AST [Catalytic activity/Vol] 32 U/L Normal 15-46 [facility] Comment on above: Performed By: #### L AB17, [id number], [id number] ####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: KIM GONZALES ([id number])[facility])[address] [place] [address] Bilirubin [Mass/Vol] 0.7 mg/dL Normal 0.2-1.3 [facility] Comment on above: Performed By: #### L AB17, [id number], [id number] ####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: KIM GONZALES ([id number])[facility])[address] [place] [address] Calcium [Mass/Vol] 8.2 mg/dL Low 8.4-10.4 [facility] Comment on above: Performed By: #### L AB17, [id number], [id number] ####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: KIM GONZALES ([id number])[facility] ([facility])[address] [place] [address] Chloride [Moles/Vol] 105 mmol/L Normal 98-107 [facility] Comment on above: Performed By: #### L AB17, XIA240, XPZ393 ####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: KIM GONZALES ([id number])[facility] ([facility] [place] [address] CO2 [Moles/Vol] 23 mmol/L Normal 22-30 [facility] Comment on above: Performed By: #### L AB17, GXF962, MES195 ####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: KIM GONZALES ([id number])[facility])[address] [place] [address] Creatinine [Mass/Vol] 1.12 mg/dL Normal 0.66-1.[address] [facility] Comment on above: Performed By: #### L AB17, ZGO509, WRO867 ####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: KIM GONZALES ([id number])[facility] ([facility] [place] [address] [place] GLOMERULAR FILTRATION RATE ML/MIN/1.73 SQ M.PREDICTED 66.4 mL/min/1.73m*2 Normal >60.0 [facility] Comment on above: Result Comment: Calc ulation based on the Chronic Kidney Disease Epidemiology Collaboration (CKD-EPI) equation refit without adjustment for race Performed By: #### L AB17, VAP053, DGF652 ####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: KIM GONZALES ([id number])[facility] ([facility])[address] [place] [address] [place] Glucose [Mass/Vol] 121 mg/dL High 70-100 [facility] Comment on above: Performed By: #### L AB17, XNP148, ZDN785 ####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: KIM GONZALES ([id number])[facility] ([facility])[address] [place] [address] Potassium [Moles/Vol] 3.9 mmol/L Normal 3.5-5.1 [facility] Comment on above: Performed By: #### L AB17, ZXH786, JZH442 ####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: KIM GONZALES ([id number])[facility] ([facility])[address] [place] [address] Protein [Mass/Vol] 6.2 g/dL Low 6.3-8.2 [facility] Comment on above: Performed By: #### L AB17, QCL309, [id number] ####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: KIM GONZALES ([id number])[facility] ([facility])[address] [place] [address] Sodium [Moles/Vol] 136 mmol/L Normal 135-145 [facility] Comment on above: Performed By: #### L AB17, [id number], BAC676 ####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: KIM GONZALES ([id number])[facility] ([facility])[address] [place] [address] Urea nitrogen [Mass/Vol] 29 mg/dL High 9-20 [facility] Comment on above: Performed By: #### L AB17, [id number], [id number] ####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: KIM GONZALES ([id number])[facility])[address] [place] [address] Calcium.ionized [Moles/Vol]O rdered By: Severo Hagen on 10-02-2023 Calcium.ionized (Bld) [Moles/Vol] 4.00 mg/dL Low 4.30 - 5.20 mg/dL [facility] Interpretation and review of laboratory results Abnormal [facility] PH, IONIZED CALCIUM 7.53 High 7.31 - 7.46 [facility] Comprehensive metabolic 1998 panelon 10-02-2023 Albumin [Mass/Vol] 3.0 g/dL Low 3.5 - 5.0 g/dL [facility] ALP [Catalytic activity/Vol] 96 U/L 38 - 126 U/L [facility] ALT [Catalytic activity/Vol] 38 U/L 0 - 49 U/L [facility] Anion gap [Moles/Vol] 8 mmol/L 3 - 13 mmol/L [facility] AST [Catalytic activity/Vol] 32 U/L 15 - 46 U/L [facility] Bilirubin [Mass/Vol] 0.7 mg/dL 0.2 - 1 .3 mg/dL [facility] Calcium [Mass/Vol] 8.2 mg/dL Low 8.4 - 10. 4 mg/dL [facility] Chloride [Moles/Vol] 105 mmol/L 98 - 10 7 mmol/L [facility] CO2 [Moles/Vol] 23 mmol/L 22 - 30 mmol/L [facility] Creatinine [Mass/Vol] 1.12 mg/dL 0.66 - 1.25 mg/dL [facility] GFR/1.73 sq M.predicted MDRD (S/P/Bld) [Vol rate/Area] 66.4 mL/min/{1.73_m2} - PINF [facility] th Glucose [Mass/Vol] 121 mg/dL High 70 - 100 mg/dL [facility] Potassium [Moles/Vol] 3.9 mmol/L 3.5 - 5.1 mmol/L [facility] Protein [Mass/Vol] 6.2 g/dL Low 6.3 - 8.2 g/dL [facility] Sodium [Moles/Vol] 136 mmol/L 135 - 145 mmol/L [facility] Urea nitrogen [Mass/Vol] 29 mg/dL High 9 - 20 mg/dL [facility] ECG 12-LEADon 10-02-2023 ECG 12-LEAD IMPRESSION: Probable Typical Atrial flutter with pvariable block and occasional PVCs Nonspecific repol abnormality Electronically Signed On 10-02-2023 21:46:46 EDT by Alexander Padilla [facility] IDNon 10-02-2023 IDN Problem: Knowledge D eficit Goal: Patient/family/caregiver demonstrates understanding of disease process, treatment plan, medications, and discharge instructions Outcome: Progressing Problem: Potential for Compromised Skin Integrity Goal: Skin Integrity is Maintained or Improved Outcome: Progressing Problem: Potential for Compromised Skin Integrity Goal: Nutritional status is improving Outcome: Progressing Normal [facility] Laboratory - Chemistry and C hemistry - challengeon 10-02-2023 Magnesium [Mass/Vol] 2.3 mg/dL 1.6 - 2 .3 mg/dL [facility] [employer] MAGNESIUMon 10-02-2023 Magnesium [Mass/Vol] 2.3 mg/dL Normal 1.6-2.3 [facility] [employer] [facility] Comment on above: Performed By: #### L AB17, [id number], [id number] ####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: KIM GONZALES ([id number])[facility] ([facility])[address] [place] [address] [place] Magnesium [Mass/Vol]on 10-01 Interpretation and review of laboratory results Normal [facility] [employer] No Panel InformationOrdered By: Nereyda Padilla on 10-02-2023 P Brooten 0 degrees [facility] Work Phone: CA Interval 0 ms [facility] Work Phone: QRS [place]ot[place] 23 degrees [facility] Work Phone: QRSD Interval 90 ms [facility] Work Phone: QT Interval 344 ms [facility] Work Phone: QTC Interval 476 ms [facility] Work Phone: T Wave Brooten 223 degrees [facility] Work Phone: [employer] Work Phone: No Panel Informationon 10-01 CV EPIPHANY [facility] [employer] CV HEMO [facility] [employer] Interpretation and review of laboratory results Abnormal [facility] [employer] [facility] [employer] PHOSPHORUSon 10-02-2023 Phosphate [Mass/Vol] 4.7 mg/dL High 2.5-4.5 [facility] Comment on above: Performed By: #### L AB17, [id number], [id number] ####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: KIM GONZALES ([phone])[facility] ([facility])[address] [place] [address] [place] Phosphate [Moles/Vol]on 09-16 Phosphate [Mass/Vol] 4.7 mg/dL High 2.5 - 4 .5 mg/dL [facility] [employer] Progress Noteon 10-02-2023 Progress Note Apparently patient h ad a recent hip replacement 09/17 at [facility]. Patient daughter and nursing department here at [facility] were reached out by [facility] nurses requesting suture removal. His surgeon at [facility] is Dr. Iwona Schreiber. [phone] is the office number. Consult to ortho placed and saturation equipment operator resident was informed about this non-urgent consult. [facility] Progress Note .Nutrition update completed. Chart reviewed. Patient to be monitored and followed by the diet poultry field service technician. .DEVORA Lares [facility] Progress Note Palliative Care Interdisciplinary Team Note: Diagnosis: Principal Problem: Coronary artery disease of [place] artery of [place] heart with stable angina pectoris ([facility]) Active Problems: HFrEF (heart failure with reduced ejection fraction) ([facility]) Chief Complaint: Eben Cruz is a 78 y.o. male with chief complaint of: coronary artery disease Reason Palliative Following: Goals of Care Plan: Follow Peripherally Code Status: Full Code Medications: Palliative Care Not Managing any Medications Nursing: Usp Care Social Work: No Unmet Needs Spiritual Care: Community Clergy Following Pharmacy: No Unmet Needs Psychology/Psychiatry: No Unmet Needs [facility] Progress Note PHYSICAL THERAPY [facility] Treatment Note Name/MRN: Eben Cruz ([id number]) Date of : 1945 Age: 78 y.o. Room/Bed: 1C-130/1C-130 A Discharge Recommendation: Usp Facility Equipment Needed: No Other: He has [...] 0820 Minutes 20 Brielle Metzger, PT Normal [facility] Vital signsOrdered By: Conor Padilla on 10-02-2023 Heart rate 110 /min bpm [facility] [employer] Work Phone: XR CHEST LATERAL DECUBITUSon 10-02-2023 [...] Signed Date/Time: 10/02/2023 6:01 PM EDT Normal [facility] XR Chest AP lateral-decubitu son 10-02-2023 [facility] Radiology Study observation (narrative) [facility] XR HIP 2 OR 3 VW LEFTon - XR HIP 2 OR 3 VW LEFT [facility] 1945 [id number] Exam Date/Time: 10/02/2023 20:27 Procedure: XR HIP 2 OR 3 VW LEFT Ordering Provider: NICHOLE KEVIN Reason For Exam: pain/Reduced ROM/hx trauma INDICATION: 78-year-old male; reduced range of motion; trauma; INPATIENT VIEWS: Pelvis AP, AP left hip, crosstable lateral view left hip-3 images COMPARISON: No comparison exam FINDINGS: There is a right total hip arthroplasty with portions of the femur stem excluded from [id number]. There is a total left hip arthroplasty [...] Signed Date/Time: 10/02/2023 8:51 PM EDT Normal [facility] XR Hip - left 3 Viewson 09-16 [facility] Radiology Study observation (narrative) [facility] CALCIUM, IONIZEDon CALCIUM IONIZED 3.90 mg/dL Low 4.30-5.20 [facility] Comment on above: Performed By: #### L AB54 ####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: KIM GONZALES ([phone])[facility] ([facility])[address] [place] [address] PH, IONIZED CALCIUM 7.45 Normal 7.31-7.46 [facility] Comment on above: Performed By: #### L AB54 ####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: KIM GONZALES ([phone])[facility] ([facility])[address] [place] [address] CARECOORDon 10-01-2023 [facility] Updated notes placed to [facility] T[facility] request. Await review and response regarding ability to accept. TCC notified. Normal [facility] MILY Spoke with Jennifer at [facility] at [phone] regarding auth status. Jennifer states [email or web address] is still pending. Jennifer states she should know by the end of the day the results of p2p. Tasked TOOL CHASER to send most recent PT/OT notes and MD notes. TCC to follow. Normal [facility] CBC W Auto Differential pane l (Bld)on 10-01-2023 Basophils (Bld) [#/Vol] 0.1 10*3/uL 0.0 - 0.2 10*3/uL [employer] Basophils/100 WBC (Bld) 0.4 % 0.0 - 2.0 % [employer] Eosinophils (Bld) [#/Vol] 0.3 10*3/uL 0.0 - 0.5 10*3/uL [employer] Eosinophils/100 WBC (Bld) 2.3 % 0.0 - 6.0 % [employer] Erythrocyte distribution width (RBC) [Ratio] 13.3 % 11.5 - 15.0 % [facility] Hematocrit (Bld) [Volume fraction] 33.6 % Low 40.0 - 52.0 % [employer] Hemoglobin (Bld) [Mass/Vol] 10.6 g/dL Low 13.0 - 18.0 g/dL [employer] Immature granulocytes (Bld) [#/Vol] 0.2 10*3/uL High NINF - 0.1 10*3/uL [employer] Immature granulocytes/100 WBC (Bld) 1.4 % 0.0 - 2.0 % [employer] Interpretation and review of laboratory results Abnormal [employer] Lymphocytes (Bld) [#/Vol] 1.6 10*3/uL 1.0 - 4.3 10*3/uL [employer] Lymphocytes/100 WBC (Bld) 12.9 % Low 15.0 - 45.0 % [employer] MCH (RBC) [Entitic mass] 30.5 pg 26.0 - 34.0 pg [facility] [employer] MCHC (RBC) [Mass/Vol] 31.5 % 30.5 - 36.0 % [facility] [employer] MCV (RBC) [Entitic vol] 96.8 fL 77.0 - 99.0 fL [facility] [employer] Monocytes (Bld) [#/Vol] 0.9 10*3/uL 0.0 - 0.9 10*3/uL [facility] Monocytes/100 WBC (Bld) 7.4 % 5.0 - 13.0 % [facility] Neutrophils (Bld) [#/Vol] 9.2 10*3/uL High 1.8 - 7.5 10*3/uL [facility] Neutrophils/100 WBC (Bld) 75.6 % 38.0 - 82.0 % [facility] [employer] Nucleated RBC/100 WBC (Bld) [Ratio] 0.0 % [facility] [employer] Platelet mean volume (Bld) [Entitic vol] 10.7 fL 9.0 - 12.7 fL [facility] [employer] Platelets (Bld) [#/Vol] 451 10*3/uL High 140 - 440 10*3/uL [facility] RBC (Bld) [#/Vol] 3.47 10*6/uL Low 4.40 - 5.90 10*6/uL [facility] WBC (Bld) [#/Vol] 12.2 10*3/uL High 3.6 - 10.7 10*3/uL [facility] CBC WITH AUTO DIFFERENTIALon 10-01-2023 Basophils (Bld) [#/Vol] 0.1 10*3/uL Normal 0.0-0.2 [facility] [employer] [facility] Comment on above: Performed By: #### L [id number] ####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: KIM GONZALES ([id number])[address] Basophils/100 WBC (Bld) 0.4 % Normal 0.0-2.0 [facility] [employer] [facility] Comment on above: Performed By: #### L [id number] ####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: KIM GONZALES ([id number])[facility])[address] [place] [address] Eosinophils (Bld) [#/Vol] 0.3 10*3/uL Normal 0.0-0.5 [facility] Comment on above: Performed By: #### L [id number] ####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: KIM GONZALES ([id number])[facility])[address] [place] [address] Eosinophils/100 WBC (Bld) 2.3 % Normal 0.0-6.0 [facility] Comment on above: Performed By: #### L [id number] ####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: KIM GONZALES ([id number])[facility])[address] [place] [address] Erythrocyte distribution width (RBC) [Ratio] 13.3 % Normal 11.5-15.0 [facility] Comment on above: Performed By: #### L [id number] ####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: KIM GONZALES ([id number])[address] Hematocrit (Bld) [Volume fraction] 33.6 % Low 40.0-52.0 [facility] Comment on above: Performed By: #### L [id number] ####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: KIM GONZALES ([id number])[address] Hemoglobin (Bld) [Mass/Vol] 10.6 g/dL Low 13.0-18.0 [facility] Comment on above: Performed By: #### L [id number] ####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: KIM GONZALES ([phone])[facility])[address] [place] [address] IMMATURE GRANS % 1.4 % Normal 0.0-2.0 [facility] Comment on above: Performed By: #### L [id number] ####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: KIM GONZALES ([id number])[address] IMMATURE GRANS ABSOLUTE 0.2 10*3/uL High <0.1 [facility] Comment on above: Performed By: #### L [id number] ####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: KIM GONZALES ([id number])[facility])[address] [place] [address] Lymphocytes (Bld) [#/Vol] 1.6 10*3/uL Normal 1.0-4.3 [facility] Comment on above: Performed By: #### L [id number] ####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: KIM GONZALES ([id number])[facility])[address] [place] [address] Lymphocytes/100 WBC (Bld) 12.9 % Low 15.0-45.0 [facility] Comment on above: Performed By: #### L [id number] ####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: KIM GONZALES ([id number])[address] MCH (RBC) [Entitic mass] 30.5 pg Normal 26.0-34.0 [facility] Comment on above: Performed By: #### L [id number] ####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: KIM GONZALES ([id number])[facility])[address] [place] [address] MCHC 31.5 % Normal 30.5-36.0 [facility] Comment on above: Performed By: #### L [id number] ####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: KIM GONZALES ([id number])[address] MCV (RBC) [Entitic vol] 96.8 fL Normal 77.0-99.0 [facility] Comment on above: Performed By: #### L [id number] ####Reinforced Ironworker: KIM GONZALES ([id number])[facility])[address] [place] [address] Monocytes (Bld) [#/Vol] 0.9 10*3/uL Normal 0.0-0.9 [facility] Comment on above: Performed By: #### L [id number] ####Reinforced Ironworker: KIM GONZALES ([id number])[facility])[address] [place] [address] Monocytes/100 WBC (Bld) 7.4 % Normal 5.0-13.0 [facility] Comment on above: Performed By: #### L [id number] ####Reinforced Ironworker: KIM GONZALES ([phone])[facility] ([facility])[address] [place] [address] NEUTROPHILS ABSOLUTE 9.2 10*3/uL High 1.8-7.5 [facility] Comment on above: Performed By: #### L [id number] ####Reinforced Ironworker: KIM GONZALES ([id number])[facility] ([facility])[address] [place] [address] Neutrophils/100 WBC (Bld) 75.6 % Normal 38.0-82.0 [facility] Comment on above: Performed By: #### L [id number] ####Reinforced Ironworker: KIM GONZALES ([id number])[facility] ([facility])[address] [place] [address] NRBC 0.0 /100 WBCs Normal 0.0-2.0 [facility] Comment on above: Performed By: #### L [id number] ####Reinforced Ironworker: KIM GONZALES ([id number])[facility])[address] [place] [address] Platelet mean volume (Bld) [Entitic vol] 10.7 fL Normal 9.0-12.7 [facility] Comment on above: Performed By: #### L [id number] ####Reinforced Ironworker: KIM GONZALES ([id number])[facility] ([facility])[address] [place] [address] Platelets (Bld) [#/Vol] 451 10*3/uL High 140-440 [facility] Comment on above: Performed By: #### L [id number] ####Reinforced Ironworker: KIM GONZALES ([id number])[facility] ([facility])[address] [place] [address] RBC (Bld) [#/Vol] 3.47 10*6/uL Low 4.40-5.90 [facility] Comment on above: Performed By: #### L [id number] ####Reinforced Ironworker: KIM GONZALES ([id number])[facility])[address] [place] [address] WBC (Bld) [#/Vol] 12.2 10*3/uL High 3.6-10.7 [facility] Comment on above: Performed By: #### L [id number] ####Reinforced Ironworker: KIM GONZALES ([id number])[facility] ([facility])[address] [place] [address] COMPREHENSIVE METABOLIC PANE Miguel Angel 10-01-2023 Albumin [Mass/Vol] 3.0 g/dL Low 3.5-5.0 [facility] Comment on above: Performed By: #### L [id number], [id number], LAB17 ####Reinforced Ironworker: KIM GONZALES ([id number])[facility] ([facility])[address] [place] [address] ALP [Catalytic activity/Vol] 95 U/L Normal 38-126 [facility] Comment on above: Performed By: #### L [id number], [id number], LAB17 ####Reinforced Ironworker: KIM GONZALES ([id number])[facility] ([facility])[address] [place] [address] ALT [Catalytic activity/Vol] 48 U/L Normal 0-49 [facility] Comment on above: Performed By: #### L [id number], [id number], LAB17 ####Reinforced Ironworker: KIM GONZALES ([id number])[facility] ([facility])[address] [place] [address] Anion gap [Moles/Vol] 7 mmol/L Normal 3-13 [facility] Comment on above: Performed By: #### L AB113, [id number], LAB17 ####Reinforced Ironworker: KIM GONZALES ([id number])[facility])[address] [place] [address] AST [Catalytic activity/Vol] 62 U/L High 15-46 [facility] Comment on above: Performed By: #### L AB113, [id number], LAB17 ####Reinforced Ironworker: KIM GONZALES ([id number])[facility] ([facility])[address] [place] [address] Bilirubin [Mass/Vol] 0.9 mg/dL Normal 0.2-1.3 [facility] Comment on above: Performed By: #### L AB113, [id number], LAB17 ####Reinforced Ironworker: KIM GONZALES ([id number])[facility] ([facility])[address] [place] [address] Calcium [Mass/Vol] 8.4 mg/dL Normal 8.4-10.4 [facility] Comment on above: Performed By: #### Barry AB113, [id number], LAB17 ####Reinforced Ironworker: KIM GONZALES ([phone])[facility] ([facility])[address] [place] [address] Chloride [Moles/Vol] 104 mmol/L Normal 98-107 [facility] Comment on above: Performed By: #### Barry AB113, [id number], LAB17 ####Reinforced Ironworker: KIM GONZALES ([id number])[facility] ([facility])[address] [place] [address] [place] CO2 [Moles/Vol] 26 mmol/L Normal 22-30 [facility] Comment on above: Performed By: #### Barry ABRula, [id number], LAB17 ####Reinforced Ironworker: KIM GONZALES ([id number])[facility] ([facility])[address] [place] [address] Creatinine [Mass/Vol] 1.05 mg/dL Normal 0.66-1.25 [facility] Comment on above: Performed By: #### L AB113, [id number], LAB17 ####Reinforced Ironworker: KIM GONZALES ([id number])[facility])[address] [place] [address] GLOMERULAR FILTRATION RATE ML/MIN/1.73 SQ M.PREDICTED 71.8 mL/min/1.73m*2 Normal >60.0 [facility] Comment on above: Result Comment: Calc ulation based on the Chronic Kidney Disease Epidemiology Collaboration (CKD-EPI) equation refit without adjustment for race Performed By: #### Barry SAN [id number], LAB17 ####Reinforced Ironworker: KIM GONZALES ([id number])[facility])[address] [place] [address] Glucose [Mass/Vol] 108 mg/dL High 70-100 [facility] Comment on above: Performed By: #### Barry SAN [id number], LAB17 ####Reinforced Ironworker: KIM GONZALES ([id number])[facility])[address] [place] [address] Potassium [Moles/Vol] 4.0 mmol/L Normal 3.5-5.[address] [facility] Comment on above: Performed By: #### Barry SAN [id number], LAB17 ####Reinforced Ironworker: KIM GONZALES ([id number])[facility])[address] [place] [address] Protein [Mass/Vol] 6.5 g/dL Normal 6.3-8.2 [facility] Comment on above: Performed By: #### Barry SAN [id number], LAB17 ####Reinforced Ironworker: KIM GONZALES ([id number])[facility])[address] [place] [address] Sodium [Moles/Vol] 137 mmol/L Normal 135-145 [facility] Comment on above: Performed By: #### Barry SAN [id number], LAB17 ####Reinforced Ironworker: KIM GONZALES ([id number])[facility])[address] [place] [address] [place] Urea nitrogen [Mass/Vol] 31 mg/dL High 9-20 [facility] Comment on above: Performed By: #### Barry SAN [id number], LAB17 ####Reinforced Ironworker: KIM GONZALES ([id number])[facility])[address] [place] [address] [place] Calcium.ionized [Moles/Vol]o n 10-01-2023 Calcium.ionized (Bld) [Moles/Vol] 3.90 mg/dL Low 4.30 - 5.20 mg/dL [facility] Interpretation and review of laboratory results Abnormal [facility] PH, IONIZED CALCIUM 7.45 7.31 - 7.46 [facility] Comprehensive metabolic 1998 panelon 10-01-2023 Albumin [Mass/Vol] 3.0 g/dL Low 3.5 - 5.0 g/dL [facility] ALP [Catalytic activity/Vol] 95 U/L 38 - 126 U/L [facility] ALT [Catalytic activity/Vol] 48 U/L 0 - 49 U/L [facility] Anion gap [Moles/Vol] 7 mmol/L 3 - 13 mmol/L [facility] AST [Catalytic activity/Vol] 62 U/L High 15 - 46 U/L [facility] Bilirubin [Mass/Vol] 0.9 mg/dL 0.2 - 1 .3 mg/dL [facility] Calcium [Mass/Vol] 8.4 mg/dL 8.4 - 10. 4 mg/dL [facility] Chloride [Moles/Vol] 104 mmol/L 98 - 10 7 mmol/L [facility] CO2 [Moles/Vol] 26 mmol/L 22 - 30 mmol/L [facility] Creatinine [Mass/Vol] 1.05 mg/dL 0.66 - 1.25 mg/dL [facility] GFR/1.73 sq M.predicted MDRD (S/P/Bld) [Vol rate/Area] 71.8 mL/min/{1.73_m2} - PINF [facility] th Glucose [Mass/Vol] 108 mg/dL High 70 - 100 mg/dL [facility] Potassium [Moles/Vol] 4.0 mmol/L 3.5 - 5.1 mmol/L [facility] Protein [Mass/Vol] 6.5 g/dL 6.3 - 8.2 g/dL [facility] Sodium [Moles/Vol] 137 mmol/L 135 - 145 mmol/L [facility] Urea nitrogen [Mass/Vol] 31 mg/dL High 9 - 20 mg/dL [facility] Consulton 10-01-2023 Consult [facility] [place] [facility]Electrophysiology Consult Note Reason for Consult/Chief Complaint: HFrEF Referring provider: Dr. Nichole Established horse race timer: Dr. Paredes History of Present Illness: Eben Cruz is a 78 y.o. male known to Dr. 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 HF team asked to see him for HFrEF and concern for low output heart failure. He underwent complex PCI on 09/26/[address] Nichole including NORIS x 3 LM, ostial LAD, and RCA. Lcx BISQUE TILE BURNER and heavily calcified without collaterals. LVEDP at the time of the [facility] was 19 mmHg. TTE performed on [...] General: S (more content not included)... Normal [facility] ECG 12-LEADon 10-01-2023 ECG 12-LEAD IMPRESSION: Atrial fibrillation Frequent Ventricular ectopy Repol abnrm suggests ischemia, lateral leads Electronically Signed On 10-01-2023 17:06:54 EDT by Breonna Smith [facility] ECG 12-LEAD IMPRESSION: Atrial fibrillation frequent Ventricular ectopy Borderline repol abnormality, diffuse leads Borderline prolonged QT interval Electronically Signed On 10-01-2023 16:57:23 EDT by Breonna Smith [facility] IDNon 10-01-2023 IDN Problem: Knowledge D eficit Goal: Patient/family/caregiver demonstrates understanding of disease process, treatment plan, medications, and discharge instructions Outcome: Progressing Problem: Potential for Compromised Skin Integrity Goal: Skin Integrity is Maintained or Improved Outcome: Progressing Problem: Potential for Compromised Skin Integrity Goal: Nutritional status is improving Outcome: Progressing Normal [facility] Laboratory - Chemistry and C hemistry - challengeon 10-01-2023 Magnesium [Mass/Vol] 2.4 mg/dL High 1.6 - 2 .3 mg/dL [facility] MAGNESIUMon 10-01-2023 Magnesium [Mass/Vol] 2.4 mg/dL High 1.6-2.3 [facility] Comment on above: Performed By: #### Barry AB113, [id number], LAB17 ####Reinforced Ironworker: KIM GONZALES ([phone])[facility] ([facility])[address] [place] [address] No Panel InformationOrdered By: Breonna Smith on 10-01-2023 P Brooten 0 degrees [facility] Work Phone: CA Interval 0 ms [facility] Work Phone: QRS Brooten 17 degrees [facility] Work Phone: QRSD Interval 93 ms [facility] Work Phone: QT Interval 345 ms [facility] Work Phone: QTC Interval 477 ms [facility] Work Phone: T Wave Brooten 210 degrees [facility] Work Phone: [facility] Work Phone: No Panel Informationon 09-30 CV EPIPHANY [facility] P Brooten 0 degrees [facility] CA Interval 0 ms [facility] QRS Brooten -3 degrees [facility] QRSD Interval 98 ms [facility] QT Interval 350 ms [facility] QTC Interval 490 ms [facility] T Wave Brooten 0 degrees [facility] CV EPIPHANY [facility] Interpretation and review of laboratory results Abnormal [facility] PHOSPHORUSon 10-01-2023 Phosphate [Mass/Vol] 4.3 mg/dL Normal 2.5-4.5 [facility] Comment on above: Performed By: #### Barry SAN, [id number], LAB17 ####Reinforced Ironworker: KIM GONZALES ([id number])[facility] [place] [address] Phosphate [Moles/Vol]on 09-16 Interpretation and review of laboratory results Normal [facility] Phosphate [Mass/Vol] 4.3 mg/dL 2.5 - 4 .5 mg/dL [facility] Progress Noteon 10-01-2023 Progress Note PHYSICAL THERAPY [facility] Treatment Note Name/MRN: Eben Cruz ([id number]) Date of : 1945 Age: 78 y.o. Room/Bed: 1C-130/1C-130 A Discharge Recommendation: Usp Facility Equipment Needed: No Other: He has [...] 0815 Minutes 15 Brielle Metzger, PT Normal [facility] Vital signsOrdered By: Yasmin Smith on 10-01-2023 Heart rate 101 /min bpm [facility] [employer] Work Phone: Vital signson 10-01-2023 Heart rate 117 /min bpm [facility] [employer] XR CHEST 2 VIEWSon 4 XR CHEST 2 VIEWS [facility] 1945 [id number] Exam Date/Time: 10/01/2023 18:33 Procedure: XR CHEST [...] Signed Date/Time: 10/01/2023 7:19 PM EDT Normal [facility] XR Chest 2 Viewson 4 [facility] Radiology Study observation (narrative) [facility] XR Chest 2 ViewsOrdered By: Vidal Dutta on 10-01-2023 [facility] Work Phone: C-REACTIVE PROTEINon 024 CRP [Mass/Vol] 49.5 mg/L High <10.0 [facility] Comment on above: Performed By: #### L AB17, [id number], [id number], [id number] ####Reinforced Ironworker: KIM GONZALES ([phone])[facility] ([facility])[address] [place] [address] CALCIUM, IONIZEDon 4 CALCIUM IONIZED 4.20 mg/dL Low 4.30-5.20 [facility] Comment on above: Performed By: #### L AB54 ####Reinforced Ironworker: KIM GONZALES ([phone])[facility] ([facility])[address] [place] [address] PH, IONIZED CALCIUM 7.47 High 7.31-7.46 [facility] Comment on above: Performed By: #### L AB54 ####Reinforced Ironworker: KIM GONZALES ([phone])[facility] ([facility])[address] [place] [address] CBC W Auto Differential pane l (Bld)Ordered By: Pau Masterson on 09-30-2023 Basophils (Bld) [#/Vol] 0.1 10*3/uL 0.0 - 0.2 10*3/uL [facility] Basophils/100 WBC (Bld) 0.4 % 0.0 - 2.0 % [facility] Eosinophils (Bld) [#/Vol] 0.3 10*3/uL 0.0 - 0.5 10*3/uL [facility] Eosinophils/100 WBC (Bld) 2.1 % 0.0 - 6.0 % [facility] Erythrocyte distribution width (RBC) [Ratio] 13.4 % 11.5 - 15.0 % [facility] Hematocrit (Bld) [Volume fraction] 34.8 % Low 40.0 - 52.0 % [facility] Hemoglobin (Bld) [Mass/Vol] 10.8 g/dL Low 13.0 - 18.0 g/dL [facility] Immature granulocytes (Bld) [#/Vol] 0.2 10*3/uL High NINF - 0.1 10*3/uL [facility] Immature granulocytes/100 WBC (Bld) 1.6 % 0.0 - 2.0 % [facility] Interpretation and review of laboratory results Abnormal [facility] Lymphocytes (Bld) [#/Vol] 1.7 10*3/uL 1.0 - 4.3 10*3/uL [facility] Lymphocytes/100 WBC (Bld) 12.5 % Low 15.0 - 45.0 % [facility] MCH (RBC) [Entitic mass] 29.8 pg 26.0 - 34.0 pg [facility] MCHC (RBC) [Mass/Vol] 31.0 % 30.5 - 36.0 % [facility] MCV (RBC) [Entitic vol] 96.1 fL 77.0 - 99.0 fL [facility] Monocytes (Bld) [#/Vol] 1.1 10*3/uL High 0.0 - 0.9 10*3/uL [facility] Monocytes/100 WBC (Bld) 8.3 % 5.0 - 13.0 % [facility] Neutrophils (Bld) [#/Vol] 10.2 10*3/uL High 1.8 - 7.5 10*3/uL [facility] Neutrophils/100 WBC (Bld) 75.1 % 38.0 - 82.0 % [facility] Nucleated RBC/100 WBC (Bld) [Ratio] 0.0 % [facility] Platelet mean volume (Bld) [Entitic vol] 10.7 fL 9.0 - 12.7 fL [facility] Platelets (Bld) [#/Vol] 482 10*3/uL High 140 - 440 10*3/uL [facility] RBC (Bld) [#/Vol] 3.62 10*6/uL Low 4.40 - 5.90 10*6/uL [facility] WBC (Bld) [#/Vol] 13.5 10*3/uL High 3.6 - 10.7 10*3/uL [facility] CBC WITH AUTO DIFFERENTIALon 09-30-2023 Basophils (Bld) [#/Vol] 0.1 10*3/uL Normal 0.0-0.2 [facility] Comment on above: Performed By: #### L [id number] ####Reinforced Ironworker: KIM GONZALES ([phone])[facility])[address] [place] [address] Basophils/100 WBC (Bld) 0.4 % Normal 0.0-2.0 [facility] Comment on above: Performed By: #### L [id number] ####Reinforced Ironworker: KIM GONZALES ([id number])[facility])[address] [place] [address] Eosinophils (Bld) [#/Vol] 0.3 10*3/uL Normal 0.0-0.5 [facility] Comment on above: Performed By: #### L [id number] ####Reinforced Ironworker: KIM GONZALES ([id number])[facility])[address] [place] [address] Eosinophils/100 WBC (Bld) 2.1 % Normal 0.0-6.0 [facility] Comment on above: Performed By: #### L [id number] ####Reinforced Ironworker: KIM GONZALES ([id number])[facility])[address] [place] [address] Erythrocyte distribution width (RBC) [Ratio] 13.4 % Normal 11.5-15.0 [facility] Comment on above: Performed By: #### L [id number] ####Reinforced Ironworker: KIM GONZALES ([id number])[facility])[address] [place] [address] [place] Hematocrit (Bld) [Volume fraction] 34.8 % Low 40.0-52.0 [facility] Comment on above: Performed By: #### L [id number] ####Reinforced Ironworker: KIM GONZALES ([id number])[facility])[address] [place] [address] Hemoglobin (Bld) [Mass/Vol] 10.8 g/dL Low 13.0-18.0 [facility] Comment on above: Performed By: #### L [id number] ####Reinforced Ironworker: KIM GONZALES ([id number])[facility])[address] [place] [address] IMMATURE GRANS % 1.6 % Normal 0.0-2.0 [facility] Comment on above: Performed By: #### L [id number] ####Reinforced Ironworker: KIM GONZALES ([id number])[facility])[address] [place] [address] IMMATURE GRANS ABSOLUTE 0.2 10*3/uL High <0.1 [facility] Comment on above: Performed By: #### L [id number] ####Reinforced Ironworker: KIM GONZALES ([phone])[facility])[address] [place] [address] Lymphocytes (Bld) [#/Vol] 1.7 10*3/uL Normal 1.0-4.3 [facility] Comment on above: Performed By: #### L [id number] ####Reinforced Ironworker: KIM GONZALES ([phone])[facility])[address] [place] [address] Lymphocytes/100 WBC (Bld) 12.5 % Low 15.0-45.0 [facility] Comment on above: Performed By: #### L [id number] ####Reinforced Ironworker: KIM GONZALES ([id number])[facility])[address] [place] [address] MCH (RBC) [Entitic mass] 29.8 pg Normal 26.0-34.0 [facility] Comment on above: Performed By: #### L [id number] ####Reinforced Ironworker: KIM GONZALES ([id number])[facility])[address] [place] [address] MCHC 31.0 % Normal 30.5-36.0 [facility] Comment on above: Performed By: #### L [id number] ####Reinforced Ironworker: KIM GONZALES ([id number])[facility])[address] [place] [address] MCV (RBC) [Entitic vol] 96.1 fL Normal 77.0-99.0 [facility] Comment on above: Performed By: #### L [id number] ####Reinforced Ironworker: KIM GONZALES ([id number])[facility])[address] [place] [address] Monocytes (Bld) [#/Vol] 1.1 10*3/uL High 0.0-0.9 [facility] Comment on above: Performed By: #### L [id number] ####Reinforced Ironworker: KIM GONZALES ([id number])[facility])[address] [place] [address] Monocytes/100 WBC (Bld) 8.3 % Normal 5.0-13.0 [facility] Comment on above: Performed By: #### L [id number] ####Reinforced Ironworker: KIM GONZALES ([id number])[facility])[address] [place] [address] NEUTROPHILS ABSOLUTE 10.2 10*3/uL High 1.8-7.5 [facility] Comment on above: Performed By: #### L [id number] ####Reinforced Ironworker: KIM GONZALES ([id number])[facility])[address] [place] [address] Neutrophils/100 WBC (Bld) 75.1 % Normal 38.0-82.0 [facility] Comment on above: Performed By: #### L [id number] ####Reinforced Ironworker: KIM GONZALES ([id number])[facility] ([facility])[address] [place] [address] NRBC 0.0 /100 WBCs Normal 0.0-2.0 [facility] Comment on above: Performed By: #### L [id number] ####Reinforced Ironworker: KIM GONZALES ([id number])[facility])[address] [place] [address] Platelet mean volume (Bld) [Entitic vol] 10.7 fL Normal 9.0-12.7 [facility] Comment on above: Performed By: #### L [id number] ####Reinforced Ironworker: KIM GONZALES ([id number])[facility] ([facility])[address] [place] [address] Platelets (Bld) [#/Vol] 482 10*3/uL High 140-440 [facility] Comment on above: Performed By: #### L [id number] ####Reinforced Ironworker: KIM GONZALES ([id number])[facility] ([facility])[address] [place] [address] RBC (Bld) [#/Vol] 3.62 10*6/uL Low 4.40-5.90 [facility] Comment on above: Performed By: #### L [id number] ####Reinforced Ironworker: KIM GONZALES ([id number])[facility])[address] [place] [address] WBC (Bld) [#/Vol] 13.5 10*3/uL High 3.6-10.7 [facility] Comment on above: Performed By: #### L [id number] ####Reinforced Ironworker: KIM GONZALES ([id number])[facility])[address] [place] [address] COMPREHENSIVE METABOLIC PANE Miguel Angel 09-30-2023 Albumin [Mass/Vol] 3.3 g/dL Low 3.5-5.0 [facility] Comment on above: Performed By: #### L [id number], [id number], TBH650, XKZ411 ####Reinforced Ironworker: KIM GONZALES ([id number])[facility])[address] [place] [address] ALP [Catalytic activity/Vol] 96 U/L Normal 38-126 [facility] Comment on above: Performed By: #### L AB17, [id number], BMB794, NUV896 ####Reinforced Ironworker: KIM GONZALES ([id number])[facility] ([facility])[address] [place] [address] ALT [Catalytic activity/Vol] 59 U/L High 0-49 [facility] Comment on above: Performed By: #### L AB17, [id number], YMZ181, WVX162 ####Reinforced Ironworker: KIM GONZALES ([id number])[facility] ([facility])[address] [place] [address] Anion gap [Moles/Vol] 9 mmol/L Normal 3-13 [facility] Comment on above: Performed By: #### L AB17, BUW584, XOJ015, MPN822 ####Reinforced Ironworker: KIM GONZALES ([id number])[facility] ([facility])[address] [place] [address] AST [Catalytic activity/Vol] 49 U/L High 15-46 [facility] Comment on above: Performed By: #### L AB17, [id number], SOD886, XVT399 ####Reinforced Ironworker: KIM GONZALES ([id number])[facility] ([facility])[address] [place] [address] Bilirubin [Mass/Vol] 0.6 mg/dL Normal 0.2-1.3 [facility] Comment on above: Performed By: #### L AB17, SOY712, TUU020, IXZ111 ####Reinforced Ironworker: KIM GONZALES ([id number])[facility] ([facility])[address] [place] [address] Calcium [Mass/Vol] 8.4 mg/dL Normal 8.4-10.4 [facility] Comment on above: Performed By: #### L AB17, YZV706, KVV808, SSO721 ####Reinforced Ironworker: KIM GONZALES ([id number])[facility] ([facility])[address] [place] [address] Chloride [Moles/Vol] 104 mmol/L Normal 98-107 [facility] Comment on above: Performed By: #### L AB17, UPN675, DUK856, VEC281 ####Reinforced Ironworker: KIM GONZALES ([id number])[facility] ([facility])[address] [place] [address] CO2 [Moles/Vol] 24 mmol/L Normal 22-30 [facility] Comment on above: Performed By: #### L AB17, IZY380, FVX394, PXJ911 ####Reinforced Ironworker: KIM GONZALES ([id number])[facility])[address] [place] [address] Creatinine [Mass/Vol] 1.20 mg/dL Normal 0.66-1.[address] [facility] Comment on above: Performed By: #### L AB17, ZQR508, PJF846, HXR792 ####Reinforced Ironworker: KIM GONZALES ([id number])[facility])[address] [place] [address] GLOMERULAR FILTRATION RATE ML/MIN/1.73 SQ M.PREDICTED 61.1 mL/min/1.73m*2 Normal >60.0 [facility] Comment on above: Result Comment: Calc ulation based on the Chronic Kidney Disease Epidemiology Collaboration (CKD-EPI) equation refit without adjustment for race Performed By: #### L AB17, RJF113, AJT737, HRR937 ####Reinforced Ironworker: KIM GONZALES ([id number])[facility] ([facility])[address] [place] [address] Glucose [Mass/Vol] 120 mg/dL High 70-100 [facility] Comment on above: Performed By: #### L AB17, DAU809, OLO924, QYI777 ####Reinforced Ironworker: KIM GONZALES ([id number])[facility])[address] [place] [address] Potassium [Moles/Vol] 4.5 mmol/L Normal 3.5-5.[address] [facility] Comment on above: Performed By: #### L AB17, QMJ773, HAI748, XJO038 ####Reinforced Ironworker: KIM GONZALES ([id number])[facility])[address] [place] [address] Protein [Mass/Vol] 6.7 g/dL Normal 6.3-8.2 [facility] Comment on above: Performed By: #### L AB17, WPW570, QNT722, SSQ230 ####Reinforced Ironworker: KIM GONZALES ([id number])[facility] ([facility])[address] [place] [address] Sodium [Moles/Vol] 137 mmol/L Normal 135-145 [facility] Comment on above: Performed By: #### L AB17, IFI756, AYU525, ZMD149 ####Reinforced Ironworker: KIM GONZALES ([id number])[facility])[address] [place] [address] Urea nitrogen [Mass/Vol] 37 mg/dL High 9-20 [facility] Comment on above: Performed By: #### L AB17, BLE008, QWI965, IOP918 ####Reinforced Ironworker: KIM GONZALES ([id number])[facility])[address] [place] [address] CRP [Mass/Vol]on 09-30-2023 Interpretation and review of laboratory results Abnormal [facility] Calcium.ionized [Moles/Vol]o n 09-30-2023 Calcium.ionized (Bld) [Moles/Vol] 4.20 mg/dL Low 4.30 - 5.20 mg/dL [facility] Interpretation and review of laboratory results Abnormal [facility] PH, IONIZED CALCIUM 7.47 High 7.31 - 7.46 [facility] Comprehensive metabolic 1998 panelon 09-30-2023 Albumin [Mass/Vol] 3.3 g/dL Low 3.5 - 5.0 g/dL [facility] ALP [Catalytic activity/Vol] 96 U/L 38 - 126 U/L [facility] ALT [Catalytic activity/Vol] 59 U/L High 0 - 49 U/L [facility] Anion gap [Moles/Vol] 9 mmol/L 3 - 13 mmol/L [facility] AST [Catalytic activity/Vol] 49 U/L High 15 - 46 U/L [facility] Bilirubin [Mass/Vol] 0.6 mg/dL 0.2 - 1 .3 mg/dL [facility] Calcium [Mass/Vol] 8.4 mg/dL 8.4 - 10. 4 mg/dL [facility] Chloride [Moles/Vol] 104 mmol/L 98 - 10 7 mmol/L [facility] CO2 [Moles/Vol] 24 mmol/L 22 - 30 mmol/L [facility] Creatinine [Mass/Vol] 1.20 mg/dL 0.66 - 1.25 mg/dL [facility] GFR/1.73 sq M.predicted MDRD (S/P/Bld) [Vol rate/Area] 61.1 mL/min/{1.73_m2} - PINF [facility] th Glucose [Mass/Vol] 120 mg/dL High 70 - 100 mg/dL [facility] Potassium [Moles/Vol] 4.5 mmol/L 3.5 - 5.1 mmol/L [facility] Protein [Mass/Vol] 6.7 g/dL 6.3 - 8.2 g/dL [facility] Sodium [Moles/Vol] 137 mmol/L 135 - 145 mmol/L [facility] Urea nitrogen [Mass/Vol] 37 mg/dL High 9 - 20 mg/dL [facility] ECG 12-LEADon 09-30-2023 ECG 12-LEAD IMPRESSION: Sinus rhythm Multiple ventricular premature complexes Repol abnrm suggests ischemia, lateral leads Borderline ST elevation, anterior leads Compared to ECG 09/29/2023 06:06:57 No significant change is noted Electronically Signed On 09-30-2023 09:32:54 EDT by Sue Emerson [facility] ECG 12-LEAD IMPRESSION: Atrial flutter with predominant 2:1 AV block Frequent PVCs Repolarization abnormality, prob rate related Borderline ST elevation, anterior leads Electronically Signed On 09-30-2023 09:32:23 EDT by Suealana Emerson [facility] ECG 12-LEAD IMPRESSION: Sinus rhythm Multiple ventricular premature complexes Nonspecific repol abnormality, diffuse leads Compared to ECG 09/28/2023 PACs no longer present Electronically Signed On 09-30-2023 09:31:38 EDT by Sue Emerson Normal [facility] ESR (Bld) [Velocity]on 09-29 Interpretation and review of laboratory results Abnormal [facility] Laboratory - Chemistry and C hemistry - challengeon 09-30-2023 CRP [Mass/Vol] 49.5 mg/L High NINF - 10.0 mg/L [facility] Magnesium [Mass/Vol] 2.4 mg/dL High 1.6 - 2 .3 mg/dL [facility] Laboratory - Hematology and Cell countson 09-30-2023 ESR (Bld) [Velocity] 65 mm/h High [facility] MAGNESIUMon 09-30-2023 Magnesium [Mass/Vol] 2.4 mg/dL High 1.6-2.3 [facility] Comment on above: Performed By: #### L AB17, [id number], RBE587, BBJ487 ####Reinforced Ironworker: KIM GONZALES ([id number])[address] No Panel Informationon 09-29 P [place]oten 76 degrees [facility] CA Interval 182 ms [facility] QRS [place] 24 degrees [facility] QRSD Interval 95 ms [facility] QT Interval 354 ms [facility] QTC Interval 450 ms [facility] T Wave [place]oten 208 degrees [facility] CV EPIPHANY [facility] P [place] 0 degrees [facility] CA Interval 0 ms [facility] QRS [place] 16 degrees [facility] QRSD Interval 93 ms [facility] QT Interval 318 ms [facility] QTC Interval 474 ms [facility] T Wave [place] 220 degrees [facility] CV EPIPHANY [facility] CV EPIPHANY [facility] Interpretation and review of laboratory results Abnormal [facility] No Panel InformationOrdered By: Sue Emerson on 09-30-2023 P [place] 71 degrees [facility] Work Phone: CA Interval 198 ms [facility] Work Phone: QRS [place] 33 degrees [facility] Work Phone: QRSD Interval 92 ms [facility] Work Phone: QT Interval 352 ms [facility] Work Phone: QTC Interval 447 ms [facility] Work Phone: T Wave [place] 216 degrees [facility] Work Phone: [facility] Work Phone: Nursing Noteon 09-30-[address] IV [address] per rap id response RN, amiodarone gtt restarted at previous rate., Dr. Cast notified. Normal [facility] Nursing Note L AC HL site reddene d, firm. States some discomfort at site. Amiodarone gtt stopped, red area marked. Attempted to restart IV, unsuccessful, rapid response notified of infiltrated site and for assist with new placement. Seth Goldstein BORING MACHINE OPERATOR also notified. Cont to monitor. Normal [facility] PHOSPHORUSon 09-30-2023 Phosphate [Mass/Vol] 4.5 mg/dL Normal 2.5-4.5 [facility] Comment on above: Performed By: #### L AB17, [id number], RYM318, YGO539 ####Reinforced Ironworker: KIM GONZALES ([id number])[facility] ([address] Phosphate [Moles/Vol]on 09-16 Interpretation and review of laboratory results Normal [facility] Phosphate [Mass/Vol] 4.5 mg/dL 2.5 - 4 .5 mg/dL [facility] Progress Noteon 09-30-2023 Progress Note OCCUPATIONAL THERAPY [facility] Name/MRN: Eben Cruz ([id number]) Date: 09/30/2023 OT reviewed chart. In OT orders section, listed as have left LE restricted wt bearing but did not clarify the wt bearing. Spoke with RN ( Katie Aguilar) and reviewed paper chart from [facility]. Stated had left hip surgery that was complicated and required wound vac but did not clarify wt bearing or specific hip precautions either. Dr. Donnelly was seeing pt and explained situation and concerns to her. She stated she would consult ortho to clarify situation. OT will continue to follow. Jenny Hernández OTR/L Normal [facility] Progress Note ------- Attestation signed by Sue [...] to plavix), apixaban, beta-melissa, high dose statin [facility] [place] [facility] [place] [place]Electrophysiology Progress Note CC: NSTEMI, s/p PCI HPI / Interval History: Mr. 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 On 09/18/23, he had total left hip replacement surgery at [facility]. He was discharged to SNF. He developed dyspnea and was transferred to [facility] with +NSTEMI, negative CTA for PE. Had a LHC at [facility] with severe mCAD. He was transferred to [facility] for PCI with Dr. iNchole. He had successful PCI on 09/25 with IVL and NORIS placed to ostial RCA, LMCA, ostial and proximal LAD. His ostial LCX BISQUE TILE BURNER is heavily calcified- for medical management. His echocardiogram at [place] showed LVEF of 25%, with lateral wall hypokinetic, mild-mod mitral valve insufficiency (at [place] on 09/23/23. Following PCI, having heart failure [...] - Patient is currently awaiting transfer to [facility] rehab hospital in [place] - IV heparin drip as per 24 [...] cephalosporins. Continu (more content not included)... Normal [facility] SEDIMENTATION RATE, AUTOMATE Don 09-30-2023 SEDIMENTATION RATE, ERYTHROCYTE 65 mm/hr High 0-10 [facility] Comment on above: Performed By: #### L [id number] ####Reinforced Ironworker: KIM GONZALES ([id number])[address] Heart TransthoracicOrdere d By: Frederick Mcclelland on 09-30-2023 Ao Root Index 1.76 cm/m2 [facility] Work Phone: Aortic Root 3.6 cm [facility] Work Phone: Aortic Sinus Valsalva 3.6 cm [facility] [employer] Work Phone: Aortic Sinus Valsalva Index 1.76 cm/m2 [facility] [employer] Work Phone: Ascending Aorta 3.4 cm [facility] Work Phone: Ascending Aorta Index 1.66 cm/m2 [facility] Work Phone: [phone] AV Area by Peak Velocity 1.0 cm2 [facility] Work Phone: [phone] AV Area by VTI 1.1 cm2 [facility] Work Phone: AV Mean Gradient 6 mmHg [facility] Work Phone: [phone] AV Mean Velocity 1.2 m/s [facility] Work Phone: [phone] AV Peak Gradient 11 mmHg [facility] Work Phone: [phone] AV Peak Velocity 1.6 m/s [facility] Work Phone: [phone] AV Velocity Ratio 0.31 [facility] Work Phone: [phone] AV VTI 26.4 cm [facility] Work Phone: [phone] YAMIL/BSA Peak Velocity 0.5 cm2/m2 [facility] Work Phone: [phone] YAMIL/BSA VTI 0.5 cm2/m2 [facility] Work Phone: [phone] EF BP 38 % Abnormal 55 - 100 % [facility] Work Phone: [phone] Est. RA Pressure 3 mmHg [facility] Work Phone: [phone] Fractional Shortening 2D 7 % 28 - 44 % [facility] Work Phone: [phone] Interpretation and review of laboratory results Abnormal [facility] Work Phone: [phone] IVC Diameter 2.1 cm [facility] Work Phone: [phone] IVSd 0.8 cm 0.6 - 1.0 cm [facility] Work Phone: [phone] LA Diameter 4.7 cm [facility] Work Phone: [phone] LA Size Index 2.29 cm/m2 [facility] Work Phone: [phone] LA Volume 2C 84 mL Abnormal 18 - 58 mL [facility] Work Phone: [phone] LA Volume 4C 80 mL Abnormal 18 - 58 mL [facility] Work Phone: [phone] LA Volume A/L 89 mL [facility] Work Phone: LA Volume BP 82 mL Abnormal 18 - 58 mL [facility] Work Phone: LA Volume Index 2C 41 mL/m2 Abnormal 16 - 34 mL/m2 [facility] Work Phone: LA Volume Index 4C 39 mL/m2 Abnormal 16 - 34 mL/m2 [facility] Work Phone: LA Volume Index A/L 43 mL/m2 16 - 34 mL/m2 [facility] Work Phone: LA Volume Index BP 40 ml/m2 Abnormal 16 - 34 ml/m2 [facility] Work Phone: LA/AO Root Ratio 1.31 [facility] Work Phone: LV EDV A2C 182 mL [facility] Work Phone: LV EDV A4C 174 mL [facility] Work Phone: LV EDV BP 181 mL Abnormal 67 - 155 mL [facility] Work Phone: LV EDV Index A2C 89 mL/m2 [facility] Work Phone: LV EDV Index A4C 85 mL/m2 [facility] Work Phone: LV EDV Index BP 88 mL/m2 [facility] Work Phone: LV Ejection Fraction A2C 36 % [facility] Work Phone: LV Ejection Fraction A4C 36 % [facility] Work Phone: LV ESV A2C 116 mL [facility] Work Phone: LV ESV A4C 112 mL [facility] Work Phone: LV ESV BP 111 mL Abnormal 22 - 58 mL [facility] Work Phone: LV ESV Index A2C 57 mL/m2 [facility] Work Phone: LV ESV Index A4C 55 mL/m2 [facility] Work Phone: LV ESV Index BP 54 mL/m2 [facility] Work Phone: LV Mass 2D 172.7 g 88 - 224 g [facility] Work Phone: LV Mass 2D Index 84.3 g/m2 49 - 115 g/m2 [employer] Work Phone: LV RWT Ratio 0.33 [facility] Work Phone: LVIDd 5.5 cm 4.2 - 5.9 cm [employer] Work Phone: LVIDd Index 2.68 cm/m2 [employer] Work Phone: LVIDs 5.1 cm [facility] [employer] Work Phone: LVIDs Index 2.49 cm/m2 [employer] Work Phone: LVOT Area 3.1 cm2 [facility] [employer] Work Phone: [phone] LVOT Cardiac Output 3.4 liter/mi nu te [employer] Work Phone: LVOT Diameter 2.0 cm [facility] [employer] Work Phone: [phone] LVOT Mean Gradient 1 mmHg [facility] [employer] Work Phone: LVOT Peak Gradient 1 mmHg [facility] [employer] Work Phone: [phone] LVOT Peak Velocity 0.5 m/s [facility] [employer] Work Phone: [phone] LVOT Stroke Volume Index 14.1 mL/m2 [employer] Work Phone: [phone] LVOT SV 28.9 ml [employer] Work Phone: LVOT VTI 9.2 cm [facility] [employer] Work Phone: [phone] LVOT:AV VTI Index 0.35 [facility] [employer] Work Phone: [phone] LVPWd 0.9 cm 0.6 - 1.0 cm [facility] [employer] Work Phone: [phone] MR VTI 108.0 cm [facility] [employer] Work Phone: MV A Velocity 0.36 m/s [facility] Work Phone: [phone] MV Area by VTI 1.1 cm2 [facility] Work Phone: MV [...] Phone: MV Regurg Velocity PISA 4.1 m/s [facility] Work Phone: MV VTI 26.4 cm [facility] Work Phone: [phone] MV:LVOT VTI Index 2.87 [facility] Work Phone: PV Max Velocity 0.7 m/s [facility] Work Phone: [phone] PV Peak Gradient 2 mmHg [facility] Work Phone: [phone] RA Area 4C 44.5 mL [facility] Work Phone: [phone] RA Area 4C 44.9 mL [facility] Work Phone: [phone] RV Basal Dimension 4.3 cm [facility] Work Phone: [phone] RV Mid Dimension 3.0 cm [facility] Work Phone: RVSP 20 mmHg [facility] Work Phone: Sinotubular [place] 3.1 cm [facility] Work Phone: TAPSE 1.4 cm Abnormal 1.7 cm [facility] Work Phone: TR Max Velocity 2.06 m/s [facility] Work Phone: TR Peak Gradient 17 mmHg [facility] Work Phone: [facility] Work Phone: US Heart Transthoracicon 04- 14-2024 CV CPACS Vital signson 09-30-2023 Heart rate 97 /min bpm [facility] Heart rate 137 /min bpm [facility] Vital signsOrdered By: Sue Emerson on 09-30-2023 Heart rate 95 /min bpm [facility] [employer] Work Phone: CALCIUM, IONIZEDon 4 CALCIUM IONIZED 4.30 mg/dL Normal 4.30-5.20 [facility] Comment on above: Performed By: #### L [id number] ####Reinforced Ironworker: KIM GONZALES ([phone])[facility] ([facility])[address] [place] [address] PH, IONIZED CALCIUM 7.43 Normal 7.31-7.46 [facility] Comment on above: Performed By: #### L [id number] ####Reinforced Ironworker: KIM GONZALES ([phone])[facility] ([facility])[address] [place] [address] CBC W Auto Differential pane l (Bld)on 09-29-2023 Basophils (Bld) [#/Vol] 0.1 10*3/uL 0.0 - 0.2 10*3/uL [employer] Basophils/100 WBC (Bld) 0.4 % 0.0 - 2.0 % [facility] [employer] Eosinophils (Bld) [#/Vol] 0.3 10*3/uL 0.0 - 0.5 10*3/uL [employer] Eosinophils/100 WBC (Bld) 2.4 % 0.0 - 6.0 % [facility] [employer] Erythrocyte distribution width (RBC) [Ratio] 13.5 % 11.5 - 15.0 % [employer] Hematocrit (Bld) [Volume fraction] 33.1 % Low 40.0 - 52.0 % [employer] Hemoglobin (Bld) [Mass/Vol] 10.5 g/dL Low 13.0 - 18.0 g/dL [facility] [employer] Immature granulocytes (Bld) [#/Vol] 0.2 10*3/uL High NINF - 0.1 10*3/uL [facility] [employer] Immature granulocytes/100 WBC (Bld) 1.4 % 0.0 - 2.0 % [facility] [employer] Interpretation and review of laboratory results Abnormal [facility] [employer] Lymphocytes (Bld) [#/Vol] 1.5 10*3/uL 1.0 - 4.3 10*3/uL [facility] [employer] Lymphocytes/100 WBC (Bld) 11.5 % Low 15.0 - 45.0 % [facility] [employer] MCH (RBC) [Entitic mass] 30.5 pg 26.0 - 34.0 pg [facility] [employer] MCHC (RBC) [Mass/Vol] 31.7 % 30.5 - 36.0 % [facility] [employer] MCV (RBC) [Entitic vol] 96.2 fL 77.0 - 99.0 fL [facility] [employer] Monocytes (Bld) [#/Vol] 1.1 10*3/uL High 0.0 - 0.9 10*3/uL [facility] [employer] Monocytes/100 WBC (Bld) 8.2 % 5.0 - 13.0 % [facility] [employer] Neutrophils (Bld) [#/Vol] 9.8 10*3/uL High 1.8 - 7.5 10*3/uL [facility] [employer] Neutrophils/100 WBC (Bld) 76.1 % 38.0 - 82.0 % [facility] [employer] Nucleated RBC/100 WBC (Bld) [Ratio] 0.0 % [facility] [employer] Platelet mean volume (Bld) [Entitic vol] 10.8 fL 9.0 - 12.7 fL [facility] [employer] Platelets (Bld) [#/Vol] 416 10*3/uL 140 - 440 10*3/uL [facility] RBC (Bld) [#/Vol] 3.44 10*6/uL Low 4.40 - 5.90 10*6/uL [facility] WBC (Bld) [#/Vol] 12.8 10*3/uL High 3.6 - 10.7 10*3/uL [facility] CBC WITH AUTO DIFFERENTIALon 09-29-2023 Basophils (Bld) [#/Vol] 0.1 10*3/uL Normal 0.0-0.2 [facility] Comment on above: Performed By: #### L [id number] ####Reinforced Ironworker: KIM GONZALES ([phone])[facility] ([address] Basophils/100 WBC (Bld) 0.4 % Normal 0.0-2.0 [facility] Comment on above: Performed By: #### L [id number] ####Reinforced Ironworker: KIM GONZALES ([phone])[facility])[address] [place] [address] Eosinophils (Bld) [#/Vol] 0.3 10*3/uL Normal 0.0-0.5 [facility] Comment on above: Performed By: #### L [id number] ####Reinforced Ironworker: KIM GONZALES ([phone])[facility])[address] [place] [address] Eosinophils/100 WBC (Bld) 2.4 % Normal 0.0-6.0 [facility] Comment on above: Performed By: #### L [id number] ####Reinforced Ironworker: KIM GONZALES ([id number])[facility])[address] [place] [address] Erythrocyte distribution width (RBC) [Ratio] 13.5 % Normal 11.5-15.0 [facility] Comment on above: Performed By: #### L [id number] ####Reinforced Ironworker: KIM GONZALES ([id number])[facility])[address] [place] [address] Hematocrit (Bld) [Volume fraction] 33.1 % Low 40.0-52.0 [facility] Comment on above: Performed By: #### L [id number] ####Reinforced Ironworker: KIM GONZALES ([phone])[facility])[address] [place] [address] Hemoglobin (Bld) [Mass/Vol] 10.5 g/dL Low 13.0-18.0 [facility] Comment on above: Performed By: #### L [id number] ####Reinforced Ironworker: KIM GONZALES ([phone])[facility])[address] [place] [address] IMMATURE GRANS % 1.4 % Normal 0.0-2.0 [facility] Comment on above: Performed By: #### L [id number] ####Reinforced Ironworker: KIM GONZALES ([phone])[facility])[address] [place] [address] IMMATURE GRANS ABSOLUTE 0.2 10*3/uL High <0.1 [facility] Comment on above: Performed By: #### L [id number] ####Reinforced Ironworker: KIM GONZALES ([id number])[facility])[address] [place] [address] Lymphocytes (Bld) [#/Vol] 1.5 10*3/uL Normal 1.0-4.3 [facility] Comment on above: Performed By: #### L [id number] ####Reinforced Ironworker: KIM GONZALES ([id number])[address] Lymphocytes/100 WBC (Bld) 11.5 % Low 15.0-45.0 [facility] Comment on above: Performed By: #### L [id number] ####Reinforced Ironworker: KIM GONZALES ([id number])[facility])[address] [place] [address] MCH (RBC) [Entitic mass] 30.5 pg Normal 26.0-34.0 [facility] Comment on above: Performed By: #### L [id number] ####Reinforced Ironworker: KIM GONZALES ([id number])[address] MCHC 31.7 % Normal 30.5-36.0 [facility] Comment on above: Performed By: #### L [id number] ####Reinforced Ironworker: KIM GONZALES ([phone])[address] MCV (RBC) [Entitic vol] 96.2 fL Normal 77.0-99.0 [facility] Comment on above: Performed By: #### L [id number] ####Reinforced Ironworker: KIM GONZALES ([id number])[facility])[address] [place] [address] [place] Monocytes (Bld) [#/Vol] 1.1 10*3/uL High 0.0-0.9 [facility] Comment on above: Performed By: #### L [id number] ####Reinforced Ironworker: KIM GONZALES ([id number])[facility] ([facility])[address] [place] [address] Monocytes/100 WBC (Bld) 8.2 % Normal 5.0-13.0 [facility] Comment on above: Performed By: #### L [id number] ####Reinforced Ironworker: KIM GONZALES ([id number])[facility])[address] [place] [address] NEUTROPHILS ABSOLUTE 9.8 10*3/uL High 1.8-7.5 [facility] Comment on above: Performed By: #### L [id number] ####Reinforced Ironworker: KIM GONZALES ([id number])[facility] ([facility])[address] [place] [address] Neutrophils/100 WBC (Bld) 76.1 % Normal 38.0-82.0 [facility] Comment on above: Performed By: #### L [id number] ####Reinforced Ironworker: KIM GONZALES ([phone])[facility] ([facility])[address] [place] [address] NRBC 0.0 /100 WBCs Normal 0.0-2.0 [facility] Comment on above: Performed By: #### L [id number] ####Reinforced Ironworker: KIM GONZALES ([id number])[facility] ([facility])[address] [place] [address] [place] Platelet mean volume (Bld) [Entitic vol] 10.8 fL Normal 9.0-12.7 [facility] Comment on above: Performed By: #### L [id number] ####Reinforced Ironworker: KIM GONZALES ([id number])[facility] ([facility])[address] [place] [address] [place] Platelets (Bld) [#/Vol] 416 10*3/uL Normal 140-440 [facility] Comment on above: Performed By: #### L [id number] ####Reinforced Ironworker: KIM GONZALES ([id number])[facility] ([facility])[address] [place] [address] RBC (Bld) [#/Vol] 3.44 10*6/uL Low 4.40-5.90 [facility] Comment on above: Performed By: #### L [id number] ####Reinforced Ironworker: KIM GONZALES ([id number])[facility] ([facility])[address] [place] [address] WBC (Bld) [#/Vol] 12.8 10*3/uL High 3.6-10.7 [facility] Comment on above: Performed By: #### L [id number] ####Reinforced Ironworker: KIM GONZALES ([id number])[facility])[address] [place] [address] COMPREHENSIVE METABOLIC PANE Miguel Angel 09-29-2023 Albumin [Mass/Vol] 3.2 g/dL Low 3.5-5.0 [facility] Comment on above: Performed By: #### L [id number], [id number], LAB17, [id number] ####Reinforced Ironworker: KIM GONZALES ([id number])[facility] ([facility])[address] [place] [address] ALP [Catalytic activity/Vol] 90 U/L Normal 38-126 [facility] Comment on above: Performed By: #### L [id number], [id number], LAB17, MFL350 ####Reinforced Ironworker: KIM GONZALES ([id number])[facility])[address] [place] [address] ALT [Catalytic activity/Vol] 73 U/L High 0-49 [facility] Comment on above: Performed By: #### L AB113, [id number], LAB17, [id number] ####Reinforced Ironworker: KIM GONZALES ([id number])[facility])[address] [place] [address] [place] Anion gap [Moles/Vol] 7 mmol/L Normal 3-13 [facility] Comment on above: Performed By: #### L AB113, [id number], LAB17, [id number] ####Reinforced Ironworker: KIM GONZALES ([id number])[facility] ([facility])[address] [place] [address] AST [Catalytic activity/Vol] 75 U/L High 15-46 [facility] Comment on above: Performed By: #### L AB113, [id number], LAB17, SJC440 ####Reinforced Ironworker: KIM GONZALES ([id number])[facility] ([facility])[address] [place] [address] Bilirubin [Mass/Vol] 0.9 mg/dL Normal 0.2-1.3 [facility] Comment on above: Performed By: #### L AB113, [id number], LAB17, LEQ177 ####Reinforced Ironworker: KIM GONZALES ([id number])[facility] ([facility])[address] [place] [address] Calcium [Mass/Vol] 8.5 mg/dL Normal 8.4-10.4 [facility] Comment on above: Performed By: #### L AB113, [id number], LAB17, [id number] ####Reinforced Ironworker: KIM GONZALES ([id number])[facility] ([facility])[address] [place] [address] Chloride [Moles/Vol] 106 mmol/L Normal 98-107 [facility] Comment on above: Performed By: #### L AB113, [id number], LAB17, SON507 ####Reinforced Ironworker: KIM GONZALES ([id number])[facility] ([facility])[address] [place] [address] [place] CO2 [Moles/Vol] 24 mmol/L Normal 22-30 [facility] Comment on above: Performed By: #### L AB113, [id number], LAB17, KAC987 ####Reinforced Ironworker: KIM GONZALES ([id number])[facility] ([facility])[address] [place] [address] Creatinine [Mass/Vol] 0.86 mg/dL Normal 0.66-1.[address] [facility] Comment on above: Performed By: #### L AB113, [id number], LAB17, [id number] ####Reinforced Ironworker: KIM GONZALES ([id number])[facility])[address] [place] [address] GLOMERULAR FILTRATION RATE ML/MIN/1.73 SQ M.PREDICTED 87.5 mL/min/1.73m*2 Normal >60.0 [facility] Comment on above: Result Comment: Calc ulation based on the Chronic Kidney Disease Epidemiology Collaboration (CKD-EPI) equation refit without adjustment for race Performed By: #### L AB113, [id number], LAB17, [id number] ####Reinforced Ironworker: KIM GONZALES ([id number])[facility])[address] [place] [address] Glucose [Mass/Vol] 113 mg/dL High 70-100 [facility] Comment on above: Performed By: #### L AB113, [id number], LAB17, [id number] ####Reinforced Ironworker: KIM GONZALES ([id number])[facility])[address] [place] [address] Potassium [Moles/Vol] 4.8 mmol/L Normal 3.5-5.[address] [facility] Comment on above: Performed By: #### L AB113, [id number], LAB17, [id number] ####Reinforced Ironworker: KIM GONZALES ([id number])[facility])[address] [place] [address] Protein [Mass/Vol] 6.4 g/dL Normal 6.3-8.2 [facility] Comment on above: Performed By: #### L AB113, [id number], LAB17, [id number] ####Reinforced Ironworker: KIM GONZALES ([id number])[facility])[address] [place] [address] Sodium [Moles/Vol] 136 mmol/L Normal 135-145 [facility] Comment on above: Performed By: #### L AB113, KPU262, LAB17, [id number] ####Reinforced Ironworker: KIM GONZALES ([id number])[facility] ([facility])[address] [place] [address] Urea nitrogen [Mass/Vol] 39 mg/dL High 9-20 [facility] Comment on above: Performed By: #### L AB113, [id number], LAB17, DAD880 ####Reinforced Ironworker: KIM GONZALES ([id number])[facility] ([facility])[address] [place] [address] Calcium.ionized [Moles/Vol]o n 09-29-2023 Calcium.ionized (Bld) [Moles/Vol] 4.30 mg/dL 4.30 - 5.20 mg/dL [facility] Interpretation and review of laboratory results Normal [facility] PH, IONIZED CALCIUM 7.43 7.31 - 7.46 [facility] Comprehensive metabolic 1998 panelOrdered By: Zafar Ruiz on 09-29-2023 Albumin [Mass/Vol] 3.2 g/dL Low 3.5 - 5.0 g/dL [facility] ALP [Catalytic activity/Vol] 90 U/L 38 - 126 U/L [facility] ALT [Catalytic activity/Vol] 73 U/L High 0 - 49 U/L [facility] Anion gap [Moles/Vol] 7 mmol/L 3 - 13 mmol/L [facility] AST [Catalytic activity/Vol] 75 U/L High 15 - 46 U/L [facility] Bilirubin [Mass/Vol] 0.9 mg/dL 0.2 - 1 .3 mg/dL [facility] Calcium [Mass/Vol] 8.5 mg/dL 8.4 - 10. 4 mg/dL [facility] Chloride [Moles/Vol] 106 mmol/L 98 - 10 7 mmol/L [facility] CO2 [Moles/Vol] 24 mmol/L 22 - 30 mmol/L [facility] Creatinine [Mass/Vol] 0.86 mg/dL 0.66 - 1.25 mg/dL [facility] GFR/1.73 sq M.predicted MDRD (S/P/Bld) [Vol rate/Area] 87.5 mL/min/{1.73_m2} - PINF [facility] th Glucose [Mass/Vol] 113 mg/dL High 70 - 100 mg/dL [facility] Interpretation and review of laboratory results Abnormal [facility] Potassium [Moles/Vol] 4.8 mmol/L 3.5 - 5.1 mmol/L [facility] Protein [Mass/Vol] 6.4 g/dL 6.3 - 8.2 g/dL [facility] Sodium [Moles/Vol] 136 mmol/L 135 - 145 mmol/L [facility] Urea nitrogen [Mass/Vol] 39 mg/dL High 9 - 20 mg/dL [facility] Laboratory - Chemistry and C hemistry - challengeon 09-29-2023 TSH Qn 2.409 m[IU]/L [facility] h Magnesium [Mass/Vol] 2.6 mg/dL High 1.6 - 2 .3 mg/dL [facility] MAGNESIUMon 09-29-2023 Magnesium [Mass/Vol] 2.6 mg/dL High 1.6-2.3 [facility] Comment on above: Performed By: #### L AB113, [id number], LAB17, [id number] ####Reinforced Ironworker: KIM GONZALES ([phone])[facility] ([facility])[address] [place] [address] [place] Magnesium [Mass/Vol]on 09-28 Interpretation and review of laboratory results Abnormal [facility] No Panel Informationon 09-28 [facility] PHOSPHORUSon 09-29-2023 Phosphate [Mass/Vol] 4.0 mg/dL Normal 2.5-4.5 [facility] Comment on above: Performed By: #### L AB113, [id number], LAB17, [id number] ####Reinforced Ironworker: KIM GONZALES ([phone])[facility] ([facility])[address] [place] [address] [place] Phosphate [Moles/Vol]on 09-16 Interpretation and review of laboratory results Normal [facility] Phosphate [Mass/Vol] 4.0 mg/dL 2.5 - 4 .5 mg/dL [facility] Progress Noteon 09-29-2023 Progress Note Pt care team notifie d of pt HR still sustained at 120's, RR remains >25, SpO2 WNL at this time, remains on oxygen 3L/min NC, SBP <90. Pt denies dizziness/lightheadedness, denies CP, denies GERD like s/s, at this time pt denies being SOB despite being conversationally dyspneic. No new orders received. cnc machinist 2nd shift RN updated on pt clinical course over past 12 hours, reviewed the updates made to the team. [facility] Progress Note Pt care team notifie d again at this time about pt HR still elevated and now sustained between 130 and 140 BPM. Pt RR now 30-40. Pt having impending doom, keeps repeating I am not going to make it, and I can't breathe. Normal [facility] Progress Note Pt care team to beds ulisses. Pt still with HR sustained 120-130's RR elevated, still with O2. New orders received for IV lopressor and IV lasix. Given at this time per MD order. [facility] Progress Note Pt care team is noti fied at this time of pt HR sustained now at 110-120, pt SpO2 continues to drop, pt now requires 3L/min O2 per NC to maintain SpO2 goals. Pt RR now 20-30. EKG obtained this AM. Will await additional orders. [facility] Progress Note ------- Attestation signed by Sue [...] DAPT, aspirin, apixaban, high dose statin, PPI [facility] [place] [facility]Electrophysiology Progress Note CC: NSTEMI, s/p PCI HPI / Interval History: Mr. 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 On 09/18/23, he had total left hip replacement surgery at [facility]. He was discharged to SNF. He developed dyspnea and was transferred to [facility] with +NSTEMI, negative CTA for PE. Had a LHC at [facility] with severe mCAD. He was transferred to [facility] for PCI with Dr. Nichole. He had successful PCI on 09/25 with IVL and NORIS placed to ostial RCA, LMCA, ostial and proximal LAD. His ostial LCX BISQUE TILE BURNER is heavily calcified- for medical management. His echocardiogram at [place] showed LVEF of 25%, with lateral wall hypokinetic, mild-mod mitral valve insufficiency (at [place] on 09/23/23. Following PCI, having heart failure [...] - Patient is currently awaiting transfer to [facility] rehab hospital in [place] 2. HFrEF 25%/ Ischemic cardiomyopathy, stage C, [...] UTI, uncomplicated - Received C&S results from [place], +ecoli in urine. Sensitive to cephalosporins. Continue Rocephin for 5 days today (last dose on Sunday). -Ceftriaxone completed today. No further antibiotics needed 5. Hx CVA - with right ECA stenosis. Continue DAPT and atorvastatin. 6. Hypocalcemia/ Hypokalemia - Calcium Gluconate ordered, K+ replaced. Restart spironolactone. 7. Recent left hip fracture s/p left hip arthoplasty on (more content not included)... Normal [facility] THYROID STIMULATING HORMONEo n 09-29-2023 THYROID STIMULATING HORMONE 2.409 uIU/mL Normal 0.465-4.68 0 [facility] Comment on above: Performed By: #### L [id number], [id number], [id number], [id number] ####Reinforced Ironworker: KIM GONZALES ([phone])[facility] ([address] TSH Qnon 09-29-2023 Interpretation and review of laboratory results Normal [facility] XR CHEST 1 VIEWon 09-29-2023 XR CHEST 1 VIEW [facility] 1945 [id number] Exam Date/Time: 09/29/2023 13:50 Procedure: XR CHEST [...] Signed Date/Time: 09/29/2023 1:59 PM EDT Normal [facility] XR Chest Single viewon 09-28 [facility] RADIOLOGY [facility] Radiology Study observation (narrative) [facility] XR Chest Single viewOrdered By: Chet Ozuna on 09-29-2023 [facility] Work Phone: CALCIUM, IONIZEDon CALCIUM IONIZED 4.20 mg/dL Low 4.30-5.20 [facility] Comment on above: Performed By: #### L [id number] ####Reinforced Ironworker: KIM GONZALES ([phone])[facility] ([facility])[address] [place] [address] PH, IONIZED CALCIUM 7.47 High 7.31-7.46 [facility] Comment on above: Performed By: #### L [id number] ####Reinforced Ironworker: KIM GONZALES ([phone])[facility] ([facility])[address] [place] [address] CARECOORDon 09-28-2023 CARECOORD Completed transporta tion from in [facility]. Normal [facility] CBC W Auto Differential pane l (Bld)on 09-28-2023 Basophils (Bld) [#/Vol] 0.0 10*3/uL 0.0 - 0.2 10*3/uL [facility] Basophils/100 WBC (Bld) 0.3 % 0.0 - 2.0 % [facility] Eosinophils (Bld) [#/Vol] 0.2 10*3/uL 0.0 - 0.5 10*3/uL [facility] Eosinophils/100 WBC (Bld) 1.4 % 0.0 - 6.0 % [facility] Erythrocyte distribution width (RBC) [Ratio] 13.3 % 11.5 - 15.0 % [facility] Hematocrit (Bld) [Volume fraction] 30.7 % Low 40.0 - 52.0 % [facility] Hemoglobin (Bld) [Mass/Vol] 9.7 g/dL Low 13.0 - 18.0 g/dL [facility] Immature granulocytes (Bld) [#/Vol] 0.2 10*3/uL High NINF - 0.1 10*3/uL [facility] Immature granulocytes/100 WBC (Bld) 1.2 % 0.0 - 2.0 % [facility] Interpretation and review of laboratory results Abnormal [facility] Lymphocytes (Bld) [#/Vol] 1.6 10*3/uL 1.0 - 4.3 10*3/uL [facility] [employer] Lymphocytes/100 WBC (Bld) 12.2 % Low 15.0 - 45.0 % [facility] [employer] MCH (RBC) [Entitic mass] 30.3 pg 26.0 - 34.0 pg [facility] MCHC (RBC) [Mass/Vol] 31.6 % 30.5 - 36.0 % [facility] [employer] MCV (RBC) [Entitic vol] 95.9 fL 77.0 - 99.0 fL [facility] [employer] Monocytes (Bld) [#/Vol] 1.2 10*3/uL High 0.0 - 0.9 10*3/uL [facility] Monocytes/100 WBC (Bld) 9.3 % 5.0 - 13.0 % [facility] [employer] Neutrophils (Bld) [#/Vol] 10.0 10*3/uL High 1.8 - 7.5 10*3/uL [facility] [employer] Neutrophils/100 WBC (Bld) 75.6 % 38.0 - 82.0 % [facility] [employer] Nucleated RBC/100 WBC (Bld) [Ratio] 0.2 % [facility] [employer] Platelet mean volume (Bld) [Entitic vol] 10.7 fL 9.0 - 12.7 fL [facility] [employer] Platelets (Bld) [#/Vol] 398 10*3/uL 140 - 440 10*3/uL [facility] RBC (Bld) [#/Vol] 3.20 10*6/uL Low 4.40 - 5.90 10*6/uL [facility] WBC (Bld) [#/Vol] 13.2 10*3/uL High 3.6 - 10.7 10*3/uL [facility] CBC WITH AUTO DIFFERENTIALon 09-28-2023 Basophils (Bld) [#/Vol] 0.0 10*3/uL Normal 0.0-0.2 [facility] Comment on above: Performed By: #### L [id number] ####Reinforced Ironworker: KIM GONZALES ([id number])[facility] ([address] Basophils/100 WBC (Bld) 0.3 % Normal 0.0-2.0 [facility] Comment on above: Performed By: #### L [id number] ####Reinforced Ironworker: KIM GONZALES ([phone])[facility])[address] [place] [address] Eosinophils (Bld) [#/Vol] 0.2 10*3/uL Normal 0.0-0.5 [facility] Comment on above: Performed By: #### L [id number] ####Reinforced Ironworker: KIM GONZALES ([id number])[facility])[address] [place] [address] Eosinophils/100 WBC (Bld) 1.4 % Normal 0.0-6.0 [facility] Comment on above: Performed By: #### L [id number] ####Reinforced Ironworker: KIM GONZALES ([phone])[facility])[address] [place] [address] Erythrocyte distribution width (RBC) [Ratio] 13.3 % Normal 11.5-15.0 [facility] Comment on above: Performed By: #### L [id number] ####Reinforced Ironworker: KIM GONZALES ([id number])[facility])[address] [place] [address] Hematocrit (Bld) [Volume fraction] 30.7 % Low 40.0-52.0 [facility] Comment on above: Performed By: #### L [id number] ####Reinforced Ironworker: KIM GONZALES ([id number])[facility])[address] [place] [address] Hemoglobin (Bld) [Mass/Vol] 9.7 g/dL Low 13.0-18.0 [facility] Comment on above: Performed By: #### L [id number] ####Reinforced Ironworker: KIM GONZALES ([phone])[facility])[address] [place] [address] IMMATURE GRANS % 1.2 % Normal 0.0-2.0 [facility] Comment on above: Performed By: #### L [id number] ####Reinforced Ironworker: KIM GONZALES ([id number])[facility])[address] [place] [address] IMMATURE GRANS ABSOLUTE 0.2 10*3/uL High <0.1 [facility] Comment on above: Performed By: #### L [id number] ####Reinforced Ironworker: KIM GONZALES ([id number])[facility])[address] [place] [address] Lymphocytes (Bld) [#/Vol] 1.6 10*3/uL Normal 1.0-4.3 [facility] Comment on above: Performed By: #### L [id number] ####Reinforced Ironworker: KIM GONZALES ([id number])[address] Lymphocytes/100 WBC (Bld) 12.2 % Low 15.0-45.0 [facility] Comment on above: Performed By: #### L [id number] ####Reinforced Ironworker: KIM GONZALES ([id number])[facility])[address] [place] [address] MCH (RBC) [Entitic mass] 30.3 pg Normal 26.0-34.0 [facility] Comment on above: Performed By: #### L [id number] ####Reinforced Ironworker: KIM GONZALES ([id number])[address] MCHC 31.6 % Normal 30.5-36.0 [facility] Comment on above: Performed By: #### L [id number] ####Reinforced Ironworker: KIM GONZALES ([id number])[address] MCV (RBC) [Entitic vol] 95.9 fL Normal 77.0-99.0 [facility] Comment on above: Performed By: #### L [id number] ####Reinforced Ironworker: KIM GONZALES ([id number])[facility])[address] [place] [address] Monocytes (Bld) [#/Vol] 1.2 10*3/uL High 0.0-0.9 [facility] Comment on above: Performed By: #### L [id number] ####Reinforced Ironworker: KIM GONZALES ([id number])[facility] ([facility])[address] [place] [address] Monocytes/100 WBC (Bld) 9.3 % Normal 5.0-13.0 [facility] Comment on above: Performed By: #### L [id number] ####Reinforced Ironworker: KIM GONZALES ([id number])[facility] ([facility])[address] [place] [address] NEUTROPHILS ABSOLUTE 10.0 10*3/uL High 1.8-7.5 [facility] Comment on above: Performed By: #### L [id number] ####Reinforced Ironworker: KIM GONZALES ([phone])[facility] ([facility])[address] [place] [address] Neutrophils/100 WBC (Bld) 75.6 % Normal 38.0-82.0 [facility] Comment on above: Performed By: #### L [id number] ####Reinforced Ironworker: KIM GONZALES ([id number])[facility] ([facility])[address] [place] [address] NRBC 0.2 /100 WBCs Normal 0.0-2.0 [facility] Comment on above: Performed By: #### L [id number] ####Reinforced Ironworker: KIM GONZALES ([id number])[facility] ([facility])[address] [place] [address] Platelet mean volume (Bld) [Entitic vol] 10.7 fL Normal 9.0-12.7 [facility] Comment on above: Performed By: #### L [id number] ####Reinforced Ironworker: KIM GONZALES ([id number])[facility] ([facility])[address] [place] [address] Platelets (Bld) [#/Vol] 398 10*3/uL Normal 140-440 [facility] Comment on above: Performed By: #### L [id number] ####Reinforced Ironworker: KIM GONZALES ([id number])[address] RBC (Bld) [#/Vol] 3.20 10*6/uL Low 4.40-5.90 [facility] Comment on above: Performed By: #### L [id number] ####Reinforced Ironworker: KIM GONZALES ([id number])[facility])[address] [place] [address] WBC (Bld) [#/Vol] 13.2 10*3/uL High 3.6-10.7 [facility] Comment on above: Performed By: #### L [id number] ####Reinforced Ironworker: KIM GONZALES ([id number])[address] Calcium.ionized [Moles/Vol]O rdered By: Chet Smith on 09-28-2023 Calcium.ionized (Bld) [Moles/Vol] 4.20 mg/dL Low 4.30 - 5.20 mg/dL [facility] Interpretation and review of laboratory results Abnormal [facility] PH, IONIZED CALCIUM 7.47 High 7.31 - 7.46 [facility] Consulton 09-28-2023 Consult Palliative Care Init ial Consult Chief Complaint: Eben Cruz is a 78 y.o. male with chief complaint of shortness of breath. Palliative Care provider will follow-up on 10/01/23. 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 PMHx includes: HTN, HLD, partial R CVA. At [facility] for L total hip replacement but complicated by requirement of wound vac, was at SNF. transferred to [place] for cardiology NSTEMI, transferred to [facility] for PCI. Family called with stating he [...] 09/26/2023 Performed by Amos Nichole MD at [facility] Cardiac Cath/EP Lab CARDIAC CATHETERIZATION N/A 09/26/2023 Performed by Amos Nichole MD at [facility] Cardiac Cath/EP Lab HERNIA REPAIR INVASIVE VASCULAR PROCEDURE N/A 09/26/2023 Performed by Amos Nichole MD at [facility] Cardiac Cath/EP Lab JOINT REPLACEMENT both hip replacements, L shoulder No family history on file. Unable to obtain family history due to parents have Allergies Allergen Reactions Entresto [Sacubitril-Valsartan] Nausea And Vomiting Wool Alcohol [Lanolin] Review of Systems ROS: See palliative care ROS/ESAS below; All other systems were reviewed and are negative. [place] Symptom Assessment Score [place] Score Pain Score 5 Tiredness Score 0 Nausea Score 0 Depression Score 0 Anxiety Score 0 Drowsiness Score 0 Anorexia Score (more content not included)... [facility] ECG 12-LEADon 09-28-2023 ECG 12-LEAD IMPRESSION: Sinus tachycardia Atrial premature complex Compared to ECG 09/27/2023 07:13:39 Atrial premature complex(es) now present Electronically Signed On 09-28-2023 20:56:35 EDT by [facility] ECG 12-LEAD IMPRESSION: Sinus tachycardia Compared to ECG 09/26/2023 18:16:47 Ventricular premature complex(es) no longer present Electronically Signed On 09-28-2023 16:50:20 EDT by [facility] ECG 12-LEAD IMPRESSION: Atrial fibrillation Repolarization abnormality, prob rate related Electronically Signed On 09-28-2023 16:24:32 EDT by Lukas Ritchie [facility] ECG 12-LEAD IMPRESSION: Sinus rhythm PVCs PAC Nonspecific repol abnormality, lateral leads Electronically Signed On 09-28-2023 15:18:42 EDT by Lukas Ritchie [facility] Laboratory - Chemistry and C hemistry - challengeon 09-28-2023 Magnesium [Mass/Vol] 2.5 mg/dL High 1.6 - 2 .3 mg/dL [facility] MAGNESIUMon 09-28-2023 Magnesium [Mass/Vol] 2.5 mg/dL High 1.6-2.3 [facility] Comment on above: Performed By: #### L [id number], [id number] ####Reinforced Ironworker: KIM GONZALES ([id number])[address] Magnesium [Mass/Vol]on 09-27 Interpretation and review of laboratory results Abnormal [facility] No Panel Informationon 09-27 P [place] 61 degrees [facility] CA Interval 171 ms [facility] QRS [place] 26 degrees [facility] QRSD Interval 99 ms [facility] QT Interval 334 ms [facility] QTC Interval 463 ms [facility] T Wave Brooten 228 degrees [facility] CV EPIPHANY [facility] CV EPIPHANY [facility] CV EPIPHANY [facility] P Brooten 65 degrees [facility] CA Interval 185 ms [facility] QRS [place] -12 degrees [facility] QRSD Interval 104 ms [facility] QT Interval 369 ms [facility] QTC Interval 461 ms [facility] T Wave [place] 164 degrees [facility] CV EPIPHANY [facility] No Panel InformationOrdered By: Jovanni Collado on 09-28-2023 P Brooten 62 degrees [facility] Work Phone: CA Interval 173 ms [facility] Work Phone: QRS [place] 21 degrees [facility] Work Phone: QRSD Interval 95 ms [facility] Work Phone: QT Interval 349 ms [facility] Work Phone: QTC Interval 471 ms [facility] Work Phone: T Wave Bro[place]en -90 degrees [facility] Work Phone: [facility] Work Phone: No Panel InformationOrdered By: Lukas Ritchie on 09-28-2023 P Brooten 0 degrees [facility] Work Phone: CA Interval 0 ms [facility] Work Phone: QRS [place] 35 degrees [facility] Work Phone: QRSD Interval 97 ms [facility] Work Phone: QT Interval 295 ms [facility] Work Phone: QTC Interval 451 ms [facility] Work Phone: T Wave [place] 236 degrees [facility] Work Phone: [facility] Work Phone: PHOSPHORUSon 09-28-2023 Phosphate [Mass/Vol] 4.1 mg/dL Normal 2.5-4.5 [facility] [employer] [facility] Comment on above: Performed By: #### L [id number], [id number] ####Reinforced Ironworker: KIM GONZALES ([phone])[address] Phosphate [Moles/Vol]on 09-16 Interpretation and review of laboratory results Normal [facility] Phosphate [Mass/Vol] 4.1 mg/dL 2.5 - 4 .5 mg/dL [facility] [employer] Progress Noteon 09-28-2023 Progress Note PHYSICAL THERAPY [facility] Treatment Note Name/MRN: Eben Cruz ([id number]) Date of : 1945 Age: 78 y.o. Room/Bed: 1C-130/1C-130 A Discharge Recommendation: [facility] Facility Equipment Needed: No Other: He has [...] Treatment Minutes: 30 Minutes Brielle Metzger PT [facility] Progress Note Palliative Care Interdisciplinary Team Note: Diagnosis: Principal Problem: Coronary artery disease of [place] artery of [place] heart with stable angina pectoris ([facility]) Active Problems: HFrEF (heart failure with reduced ejection fraction) ([facility]) Chief Complaint: Eben Cruz is a 78 y.o. male with chief complaint of: coronary artery disease Reason Palliative Following: Goals of Care Plan: Ongoing Goals of Care Discussion Code Status: Full Code Medications: Palliative Care Not Managing any Medications Nursing: [facility] Care Social Work: No Unmet Needs Spiritual Care: Community Clergy Following Pharmacy: No Unmet Needs Psychology/Psychiatry: No Unmet Needs [facility] Vital signson 09-28-2023 Heart rate 116 /min bpm [facility] Heart rate 94 /min bpm [facility] Vital signsOrdered By: Jovanni Collado on 09-28-2023 Heart rate 109 /min bpm [employer] Work Phone: Vital signsOrdered By: Lukas Ritchie on 09-28-2023 Heart rate 140 /min bpm [employer] Phone: XR CHEST 1 VIEWon 09-28-2023 XR CHEST 1 VIEW Patient Name: EBEN CRUZ : 1945 [facility]#: [id number] Exam Date/Time: 09/28/2023 09:56 Procedure: XR CHEST [...] Signed Date/Time: 09/28/2023 12:41 PM EDT Normal [facility] XR Chest Single viewon 09-27 [facility] Radiology Study observation (narrative) [facility] XR Chest Single viewOrdered By: Black Pickering on 09-28-2023 [employer] Phone: CALCIUM, IONIZEDon 4 CALCIUM IONIZED 3.50 mg/dL Low 4.30-5.20 [facility] Comment on above: Performed By: #### L [id number] ####Reinforced Ironworker: KIM GONZALES ([id number])[facility] [place] [address] PH, IONIZED CALCIUM 7.54 High 7.31-7.46 [facility] Comment on above: Performed By: #### L AB54 ####Reinforced Ironworker: KIM GONZALES ([id number])[facility] [place] [address] CBC W Auto Differential pane l (Bld)Ordered By: Kim Hodge on 09-27-2023 Basophils (Bld) [#/Vol] 0.0 10*3/uL 0.0 - 0.2 10*3/uL [employer] [facility] Basophils/100 WBC (Bld) 0.3 % 0.0 - 2.0 % [facility] [employer] Eosinophils (Bld) [#/Vol] 0.0 10*3/uL 0.0 - 0.5 10*3/uL [facility] Eosinophils/100 WBC (Bld) 0.2 % 0.0 - 6.0 % [facility] [employer] Erythrocyte distribution width (RBC) [Ratio] 13.3 % 11.5 - 15.0 % [facility] [employer] Hematocrit (Bld) [Volume fraction] 32.4 % Low 40.0 - 52.0 % [facility] [employer] Hemoglobin (Bld) [Mass/Vol] 10.2 g/dL Low 13.0 - 18.0 g/dL [facility] [employer] Immature granulocytes (Bld) [#/Vol] 0.2 10*3/uL High NINF - 0.1 10*3/uL [facility] [employer] Immature granulocytes/100 WBC (Bld) 1.3 % 0.0 - 2.0 % [facility] [employer] Interpretation and review of laboratory results Abnormal [facility] IPF 3 [facility] Lymphocytes (Bld) [#/Vol] 1.2 10*3/uL 1.0 - 4.3 10*3/uL [facility] Lymphocytes/100 WBC (Bld) 9.4 % Low 15.0 - 45.0 % [facility] [employer] MCH (RBC) [Entitic mass] 30.3 pg 26.0 - 34.0 pg [facility] [employer] MCHC (RBC) [Mass/Vol] 31.5 % 30.5 - 36.0 % [facility] MCV (RBC) [Entitic vol] 96.1 fL 77.0 - 99.0 fL [facility] Monocytes (Bld) [#/Vol] 1.1 10*3/uL High 0.0 - 0.9 10*3/uL [facility] Monocytes/100 WBC (Bld) 8.9 % 5.0 - 13.0 % [facility] Neutrophils (Bld) [#/Vol] 10.3 10*3/uL High 1.8 - 7.5 10*3/uL [facility] Neutrophils/100 WBC (Bld) 79.9 % 38.0 - 82.0 % [facility] Nucleated RBC/100 WBC (Bld) [Ratio] 0.2 % [facility] [employer] Platelet mean volume (Bld) [Entitic vol] 10.9 fL 9.0 - 12.7 fL [facility] Platelets (Bld) [#/Vol] 355 10*3/uL 140 - 440 10*3/uL [facility] RBC (Bld) [#/Vol] 3.37 10*6/uL Low 4.40 - 5.90 10*6/uL [facility] WBC (Bld) [#/Vol] 12.9 10*3/uL High 3.6 - 10.7 10*3/uL [facility] CBC WITH AUTO DIFFERENTIALon 09-27-2023 Basophils (Bld) [#/Vol] 0.0 10*3/uL Normal 0.0-0.2 [facility] Comment on above: Performed By: #### L [id number] ####Reinforced Ironworker: KIM GONZALES ([phone])[address] Basophils/100 WBC (Bld) 0.3 % Normal 0.0-2.0 [facility] Comment on above: Performed By: #### L [id number] ####Reinforced Ironworker: KIM GONZALES ([phone])[facility])[address] [place] [address] Eosinophils (Bld) [#/Vol] 0.0 10*3/uL Normal 0.0-0.5 [facility] Comment on above: Performed By: #### L [id number] ####Reinforced Ironworker: KIM GONZALES ([id number])[facility])[address] [place] [address] Eosinophils/100 WBC (Bld) 0.2 % Normal 0.0-6.0 [facility] Comment on above: Performed By: #### L [id number] ####Reinforced Ironworker: KIM GONZALES ([phone])[facility])[address] [place] [address] Erythrocyte distribution width (RBC) [Ratio] 13.3 % Normal 11.5-15.0 [facility] Comment on above: Performed By: #### L [id number] ####Reinforced Ironworker: KIM GONZALES ([id number])[address] Hematocrit (Bld) [Volume fraction] 32.4 % Low 40.0-52.0 [facility] Comment on above: Performed By: #### L [id number] ####Reinforced Ironworker: KIM GONZALES ([phone])[facility])[address] [place] [address] Hemoglobin (Bld) [Mass/Vol] 10.2 g/dL Low 13.0-18.0 [facility] Comment on above: Performed By: #### L [id number] ####Reinforced Ironworker: KIM GONZALES ([phone])[facility])[address] [place] [address] IMMATURE GRANS % 1.3 % Normal 0.0-2.0 [facility] Comment on above: Performed By: #### L [id number] ####Reinforced Ironworker: KIM GONZALES ([id number])[address] IMMATURE GRANS ABSOLUTE 0.2 10*3/uL High <0.1 [facility] Comment on above: Performed By: #### L [id number] ####Reinforced Ironworker: KIM GONZALES ([id number])[facility] ([address] IPF 3 Normal [facility] Comment on above: Performed By: #### L [id number] ####Reinforced Ironworker: KIM GONZALES ([id number])[facility])[address] [place] [address] Lymphocytes (Bld) [#/Vol] 1.2 10*3/uL Normal 1.0-4.3 [facility] Comment on above: Performed By: #### L [id number] ####Reinforced Ironworker: KIM GONZALES ([id number])[facility])[address] [place] [address] Lymphocytes/100 WBC (Bld) 9.4 % Low 15.0-45.0 [facility] Comment on above: Performed By: #### L [id number] ####Reinforced Ironworker: KIM GONZALES ([phone])[facility])[address] [place] [address] MCH (RBC) [Entitic mass] 30.3 pg Normal 26.0-34.0 [facility] Comment on above: Performed By: #### L [id number] ####Reinforced Ironworker: KIM GONZALES ([id number])[address] MCHC 31.5 % Normal 30.5-36.0 [facility] Comment on above: Performed By: #### L [id number] ####Reinforced Ironworker: KIM GONZALES ([id number])[facility])[address] [place] [address] MCV (RBC) [Entitic vol] 96.1 fL Normal 77.0-99.0 [facility] Comment on above: Performed By: #### L [id number] ####Reinforced Ironworker: KIM GONZALES ([phone])[facility])[address] [place] [address] Monocytes (Bld) [#/Vol] 1.1 10*3/uL High 0.0-0.9 [facility] Comment on above: Performed By: #### L [id number] ####Reinforced Ironworker: KIM GONZALES ([id number])[facility] ([facility])[address] [place] [address] Monocytes/100 WBC (Bld) 8.9 % Normal 5.0-13.0 [facility] Comment on above: Performed By: #### L [id number] ####Reinforced Ironworker: KIM GONZALES ([phone])[facility] ([facility])[address] [place] [address] NEUTROPHILS ABSOLUTE 10.3 10*3/uL High 1.8-7.5 [facility] Comment on above: Performed By: #### L [id number] ####Reinforced Ironworker: KIM GONZALES ([phone])[facility])[address] [place] [address] Neutrophils/100 WBC (Bld) 79.9 % Normal 38.0-82.0 [facility] Comment on above: Performed By: #### L [id number] ####Reinforced Ironworker: KIM GONZALES ([phone])[facility] ([facility])[address] [place] [address] NRBC 0.2 /100 WBCs Normal 0.0-2.0 [facility] Comment on above: Performed By: #### L [id number] ####Reinforced Ironworker: KIM GONZALES ([phone])[facility] ([facility])[address] [place] [address] Platelet mean volume (Bld) [Entitic vol] 10.9 fL Normal 9.0-12.7 [facility] Comment on above: Performed By: #### L [id number] ####Reinforced Ironworker: KMI GONZALES ([phone])[facility] ([facility])[address] [place] [address] [place] Platelets (Bld) [#/Vol] 355 10*3/uL Normal 140-440 [facility] Comment on above: Performed By: #### L [id number] ####Reinforced Ironworker: KIM GONZALES ([id number])[facility] ([facility])[address] [place] [address] RBC (Bld) [#/Vol] 3.37 10*6/uL Low 4.40-5.90 [facility] Comment on above: Performed By: #### L [id number] ####Reinforced Ironworker: KIM GONZALES ([id number])[facility])[address] [place] [address] WBC (Bld) [#/Vol] 12.9 10*3/uL High 3.6-10.7 [facility] Comment on above: Performed By: #### L [id number] ####Reinforced Ironworker: KIM GONZALES ([id number])[facility])[address] [place] [address] COMPREHENSIVE METABOLIC PANE Miguel Angel 09-27-2023 Albumin [Mass/Vol] 3.1 g/dL Low 3.5-5.0 [facility] Comment on above: Performed By: #### L [id number] ####Reinforced Ironworker: KIM GONZALES ([id number])[facility] ([facility])[address] [place] [address] ALP [Catalytic activity/Vol] 70 U/L Normal 38-126 [facility] Comment on above: Performed By: #### L [id number] ####Reinforced Ironworker: KIM GONZALES ([id number])[facility])[address] [place] [address] ALT [Catalytic activity/Vol] 58 U/L High 0-49 [facility] Comment on above: Performed By: #### L [id number] ####Reinforced Ironworker: KIM GONZALES ([id number])[facility])[address] [place] [address] Anion gap [Moles/Vol] 8 mmol/L Normal 3-13 [facility] Comment on above: Performed By: #### L [id number] ####Reinforced Ironworker: KIM GONZALES ([id number])[facility])[address] [place] [address] AST [Catalytic activity/Vol] 89 U/L High 15-46 [facility] Comment on above: Performed By: #### L [id number] ####Reinforced Ironworker: KIM GONZALES ([phone])[facility])[address] [place] [address] Bilirubin [Mass/Vol] 0.7 mg/dL Normal 0.2-1.3 [facility] Comment on above: Performed By: #### L [id number] ####Reinforced Ironworker: KIM GONZALES ([id number])[facility])[address] [place] [address] Calcium [Mass/Vol] 8.1 mg/dL Low 8.4-10.4 [facility] Comment on above: Performed By: #### L [id number] ####Reinforced Ironworker: KIM GONZALES ([phone])[facility])[address] [place] [address] Chloride [Moles/Vol] 104 mmol/L Normal 98-107 [facility] Comment on above: Performed By: #### L [id number] ####Reinforced Ironworker: KIM GONZALES ([phone])[facility] ([facility])[address] [place] [address] CO2 [Moles/Vol] 26 mmol/L Normal 22-30 [facility] Comment on above: Performed By: #### L AB17 ####Reinforced Ironworker: KIM GONZALES ([phone])[facility])[address] [place] [address] Creatinine [Mass/Vol] 1.04 mg/dL Normal 0.66-1.[address] [facility] Comment on above: Performed By: #### L [id number] ####Reinforced Ironworker: KIM GONZALES ([phone])[facility])[address] [place] [address] [place] GLOMERULAR FILTRATION RATE ML/MIN/1.73 SQ M.PREDICTED 72.6 mL/min/1.73m*2 Normal >60.0 [facility] Comment on above: Result Comment: Calc ulation based on the Chronic Kidney Disease Epidemiology Collaboration (CKD-EPI) equation refit without adjustment for race Performed By: #### L [id number] ####Reinforced Ironworker: KIM GONZALES ([id number])[facility] ([facility])[address] [place] [address] Glucose [Mass/Vol] 150 mg/dL High 70-100 [facility] Comment on above: Performed By: #### L AB17 ####Reinforced Ironworker: KIM GONZALES ([id number])[facility] ([facility])[address] [place] [address] Potassium [Moles/Vol] 3.4 mmol/L Low 3.5-5.1 [facility] Comment on above: Performed By: #### L [id number] ####Reinforced Ironworker: KIM GONZALES ([id number])[facility])[address] [place] [address] Protein [Mass/Vol] 6.3 g/dL Normal 6.3-8.2 [facility] Comment on above: Performed By: #### L [id number] ####Reinforced Ironworker: KIM GONZALES ([id number])[facility] ([facility])[address] [place] [address] Sodium [Moles/Vol] 138 mmol/L Normal 135-145 [facility] Comment on above: Performed By: #### L AB17 ####Reinforced Ironworker: KIM GONZALES ([phone])[facility])[address] [place] [address] [place] Urea nitrogen [Mass/Vol] 47 mg/dL High 9-20 [facility] Comment on above: Performed By: #### L AB17 ####Reinforced Ironworker: KIM GONZALES ([id number])[facility] ([facility])[address] [place] [address] [place] Albumin [Mass/Vol] 3.4 g/dL Low 3.5-5.0 [facility] Comment on above: Performed By: #### L [id number], [id number], LAB17 ####Reinforced Ironworker: KIM GONZALES ([phone])[facility])[address] [place] [address] [place] ALP [Catalytic activity/Vol] 75 U/L Normal 38-126 [facility] Comment on above: Performed By: #### Barry ABRula, [id number], LAB17 ####Reinforced Ironworker: KIM GONZALES ([phone])[facility] ([facility])[address] [place] [address] ALT [Catalytic activity/Vol] 56 U/L High 0-49 [facility] Comment on above: Performed By: #### Barry ABRula, [id number], LAB17 ####Reinforced Ironworker: KIM GONZALES ([id number])[facility] ([facility])[address] [place] [address] Anion gap [Moles/Vol] 11 mmol/L Normal 3-13 [facility] Comment on above: Performed By: #### Barry ABRula, [id number], LAB17 ####Reinforced Ironworker: KIM GONZALES ([phone])[facility] ([facility])[address] [place] [address] AST [Catalytic activity/Vol] 98 U/L High 15-46 [facility] Comment on above: Performed By: #### Barry SAN, [id number], LAB17 ####Reinforced Ironworker: KIM GONZALES ([id number])[facility] ([facility])[address] [place] [address] Bilirubin [Mass/Vol] 1.0 mg/dL Normal 0.2-1.3 [facility] Comment on above: Performed By: #### Barry SAN, [id number], LAB17 ####Reinforced Ironworker: KIM GONZALES ([phone])[facility] ([facility])[address] [place] [address] Calcium [Mass/Vol] 8.2 mg/dL Low 8.4-10.4 [facility] Comment on above: Performed By: #### Barry ABRula, [id number], LAB17 ####Reinforced Ironworker: KIM GONZALES ([id number])[facility] ([facility])[address] [place] [address] [place] Chloride [Moles/Vol] 105 mmol/L Normal 98-107 [facility] Comment on above: Performed By: #### L AB113, [id number], LAB17 ####Reinforced Ironworker: KIM GONZALES ([id number])[facility])[address] [place] [address] CO2 [Moles/Vol] 22 mmol/L Normal 22-30 [facility] Comment on above: Performed By: #### Barry AB113, [id number], LAB17 ####Reinforced Ironworker: KIM GONZALES ([phone])[facility] ([facility])[address] [place] [address] Creatinine [Mass/Vol] 0.91 mg/dL Normal 0.66-1.[address] [facility] Comment on above: Performed By: #### Barry AB113, [id number], LAB17 ####Reinforced Ironworker: KIM GONZALES ([phone])[facility])[address] [place] [address] GLOMERULAR FILTRATION RATE ML/MIN/1.73 SQ M.PREDICTED 85.2 mL/min/1.73m*2 Normal >60.0 [facility] Comment on above: Result Comment: Calc ulation based on the Chronic Kidney Disease Epidemiology Collaboration (CKD-EPI) equation refit without adjustment for race Performed By: #### Barry AB113, [id number], LAB17 ####Reinforced Ironworker: KIM GONZALES ([id number])[facility] ([facility])[address] [place] [address] Glucose [Mass/Vol] 140 mg/dL High 70-100 [facility] Comment on above: Performed By: #### L AB113, [id number], LAB17 ####Reinforced Ironworker: KIM GONZALES ([id number])[facility])[address] [place] [address] [place] Potassium [Moles/Vol] 4.3 mmol/L Normal 3.5-5.[address] [facility] Comment on above: Performed By: #### L AB113, [id number], LAB17 ####Reinforced Ironworker: KIM GONZALES ([id number])[facility])[address] [place] [address] Protein [Mass/Vol] 6.9 g/dL Normal 6.3-8.2 [facility] Comment on above: Performed By: #### L AB113, [id number], LAB17 ####Reinforced Ironworker: KIM GONZALES ([id number])[facility] ([facility])[address] [place] [address] Sodium [Moles/Vol] 138 mmol/L Normal 135-145 [facility] Comment on above: Performed By: #### L AB113, [id number], LAB17 ####Reinforced Ironworker: KIM GONZALES ([id number])[facility] ([facility])[address] [place] [address] Urea nitrogen [Mass/Vol] 40 mg/dL High 9-20 [facility] Comment on above: Performed By: #### L AB113, [id number], LAB17 ####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: KIM GONZALES ([phone])[facility] ([facility])[address] [place] [address] Calcium.ionized [Moles/Vol]O rdered By: Christina Duenas on 09-27-2023 Calcium.ionized (Bld) [Moles/Vol] 3.50 mg/dL Low 4.30 - 5.20 mg/dL [facility] Interpretation and review of laboratory results Abnormal [facility] PH, IONIZED CALCIUM 7.54 High 7.31 - 7.46 [facility] Comprehensive metabolic 1998 panelon 09-27-2023 Albumin [Mass/Vol] 3.1 g/dL Low 3.5 - 5.0 g/dL [facility] ALP [Catalytic activity/Vol] 70 U/L 38 - 126 U/L [facility] ALT [Catalytic activity/Vol] 58 U/L High 0 - 49 U/L [facility] Anion gap [Moles/Vol] 8 mmol/L 3 - 13 mmol/L [facility] AST [Catalytic activity/Vol] 89 U/L High 15 - 46 U/L [facility] Bilirubin [Mass/Vol] 0.7 mg/dL 0.2 - 1 .3 mg/dL [facility] Calcium [Mass/Vol] 8.1 mg/dL Low 8.4 - 10. 4 mg/dL [facility] Chloride [Moles/Vol] 104 mmol/L 98 - 10 7 mmol/L [facility] CO2 [Moles/Vol] 26 mmol/L 22 - 30 mmol/L [facility] Creatinine [Mass/Vol] 1.04 mg/dL 0.66 - 1.25 mg/dL [facility] GFR/1.73 sq M.predicted MDRD (S/P/Bld) [Vol rate/Area] 72.6 mL/min/{1.73_m2} - PINF [facility] th Glucose [Mass/Vol] 150 mg/dL High 70 - 100 mg/dL [facility] Interpretation and review of laboratory results Abnormal [facility] Potassium [Moles/Vol] 3.4 mmol/L Low 3.5 - 5.1 mmol/L [facility] Protein [Mass/Vol] 6.3 g/dL 6.3 - 8.2 g/dL [facility] Sodium [Moles/Vol] 138 mmol/L 135 - 145 mmol/L [facility] Urea nitrogen [Mass/Vol] 47 mg/dL High 9 - 20 mg/dL [facility] Albumin [Mass/Vol] 3.4 g/dL Low 3.5 - 5.0 g/dL [facility] ALP [Catalytic activity/Vol] 75 U/L 38 - 126 U/L [facility] ALT [Catalytic activity/Vol] 56 U/L High 0 - 49 U/L [facility] Anion gap [Moles/Vol] 11 mmol/L 3 - 13 mmol/L [facility] AST [Catalytic activity/Vol] 98 U/L High 15 - 46 U/L [facility] Bilirubin [Mass/Vol] 1.0 mg/dL 0.2 - 1 .3 mg/dL [facility] Calcium [Mass/Vol] 8.2 mg/dL Low 8.4 - 10. 4 mg/dL [facility] Chloride [Moles/Vol] 105 mmol/L 98 - 10 7 mmol/L [facility] CO2 [Moles/Vol] 22 mmol/L 22 - 30 mmol/L [facility] Creatinine [Mass/Vol] 0.91 mg/dL 0.66 - 1.25 mg/dL [facility] GFR/1.73 sq M.predicted MDRD (S/P/Bld) [Vol rate/Area] 85.2 mL/min/{1.73_m2} - PINF [facility] Glucose [Mass/Vol] 140 mg/dL High 70 - 100 mg/dL [facility] Potassium [Moles/Vol] 4.3 mmol/L 3.5 - 5.1 mmol/L [facility] Protein [Mass/Vol] 6.9 g/dL 6.3 - 8.2 g/dL [facility] Sodium [Moles/Vol] 138 mmol/L 135 - 145 mmol/L [facility] Urea nitrogen [Mass/Vol] 40 mg/dL High 9 - 20 mg/dL [facility] Consulton 09-27-2023 Consult [facility] Wound Care CONSULT Note Eben Cruz AGE: 78 y.o. GENDER: male : 1945 Subjective: HISTORY of PRESENT ILLNESS HPI Eben Cruz is a 78 y.o. male who presents for a wound consult. HPI: Eben Cruz is a 78 y.o. 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 He is known to [facility] outpatient. Had LHC in 2014 with non-obstructive CAD (per pt). NST 06/21/22 showed preserved EF, no ischemia. On 09/18/23, had total left hip replacement surgery at [facility]. Had complicated course requiring wound vac. Discharged to [facility] (SNF). Wound Care consulted for left hip wound. Patient states he had a hip replacement surgery on 09/18/23 at [facility]. RN at bedside and states he admitted with a Prevena to left hip- states it was removed yesterday. PAST MEDICAL HISTORY Past Medical History: Diagnosis Date Adverse effect of anesthesia Arthritis Coronary artery disease Delayed emergence from general anesthesia Hypertension Stroke (HCC) PAST SURGICAL HISTORY Past Surgical History: Procedure Laterality Date CARDIAC CATHETERIZATION N/A 09/26/2023 Performed by Amos Nichole MD at [facility] Cardiac Cath/EP Lab CARDIAC CATHETERIZATION N/A 09/26/2023 Performed by Amos Nichole MD at [facility] Cardiac Cath/EP Lab HERNIA REPAIR INVASIVE VASCULAR PROCEDURE N/A 09/26/2023 Performed by Amos Nichole MD at [facility] Cardiac Cath/EP Lab JOINT REPLACEMENT both hip [...] to follow Recommend to follow up at [facility] wound care center after hospital discharge. Any [...] for t (more content not included)... Normal [facility] ECG 12-LEADon 09-27-2023 ECG 12-LEAD IMPRESSION: Sinus tachycardia Low voltage, extremity and precordial leads Electronically Signed On 09-27-2023 15:25:53 EDT by Jefry Fleming Normal [facility] ECG 12-LEAD IMPRESSION: SINUS TACHYCARDIA Paired ventricular premature complexes Nonspecific repol abnormality, diffuse leads Electronically Signed On 09-27-2023 15:03:04 EDT by Jefry Fleming [facility] IDNon 09-27-2023 IDN Problem: Knowledge D eficit Goal: Patient/family/caregiver demonstrates understanding of disease process, treatment plan, medications, and discharge instructions Outcome: Progressing Problem: Potential for Compromised Skin Integrity Goal: Skin Integrity is Maintained or Improved Outcome: Progressing Goal: Nutritional status is improving Outcome: Progressing Problem: Urinary Incontinence Goal: Perineal skin integrity is maintained or improved Outcome: Progressing Normal [facility] Laboratory - Chemistry and C hemistry - challengeon 09-27-2023 Magnesium [Mass/Vol] 2.5 mg/dL High 1.6 - 2 .3 mg/dL [facility] MAGNESIUMon 09-27-2023 Magnesium [Mass/Vol] 2.5 mg/dL High 1.6-2.3 [facility] Comment on above: Performed By: #### L AB113, [id number], LAB17 ####Reinforced Ironworker: KIM GONZALES ([phone])[facility] ([address] No Panel InformationOrdered By: Jefry Fleming on 09-27-2023 P Brooten 62 degrees [facility] Work Phone: CA Interval 192 ms [facility] Work Phone: QRS [place] 12 degrees [facility] Work Phone: QRSD Interval 89 ms [facility] Work Phone: QT Interval 314 ms [facility] Work Phone: QTC Interval 411 ms [facility] Work Phone: T Wave [place]ot[place] 0 degrees [facility] Work Phone: [employer] [facility] Work Phone: No Panel Informationon 09-26 CV EPIPHANY [facility] [employer] P Brooten 0 degrees [facility] CA Interval 0 ms [facility] [employer] QRS Brooten 70 degrees [facility] [employer] QRSD Interval 86 ms [facility] [employer] QT Interval 293 ms [facility] [employer] QTC Interval 419 ms [facility] [employer] T Wave Brooten 256 degrees [facility] [employer] CV EPIPHANY [facility] Interpretation and review of laboratory results Abnormal [facility] Nursing Noteon 09-27-2023 Nursing Note Patient helped to ch air by physical therapy. His blood pressure was then 78/36. He did state he felt lightheaded. S Arnoldo BORING MACHINE OPERATOR at bedside. Assisted back to bed and blood pressure now up to 99/52. Family at bedside Normal [facility] PHOSPHORUSon 09-27-2023 Phosphate [Mass/Vol] 4.7 mg/dL High 2.5-4.5 [facility] Comment on above: Performed By: #### L AB113, [id number], LAB17 ####Reinforced Ironworker: KIM GONZALES ([phone])[facility] ([address] Phosphate [Moles/Vol]on 09-16 Phosphate [Mass/Vol] 4.7 mg/dL High 2.5 - 4 .5 mg/dL [facility] Progress Noteon 09-27-2023 Progress Note Checked on [...] tonight and reevaluate in the morning. Normal [facility] Progress Note .Nutrition rescreen completed. Chart reviewed. Patient to be monitored and followed by the diet poultry field service technician. DEVORA Lares Normal [facility] Vital signsOrdered By: Alina Fleming on 09-27-2023 Heart rate 103 /min bpm [facility] Work Phone: Vital signson 09-27-2023 Heart rate 122 /min bpm [facility] [employer] XR CHEST 1 VIEWon 09-27-2023 XR CHEST [...] Signed Date/Time: 09/27/2023 10:35 AM EDT Normal [facility] XR Chest Single viewon 09-26 [facility] Radiology Study observation (narrative) [facility] XR Chest Single viewOrdered By: Faviola Sommer on 09-27-2023 [facility] [employer] Work Phone: APTTon 09-26-2023 aPTT Coag (Bld) [Time] 38.2 s High 20.0-30.5 [facility] Comment on above: Result Comment: RINA Vogel COMMENTS: NOTE: The therapeutic time for Heparin anticoagulation, based on Xa activity inhibition, is an APTT of 46-80 seconds. Performed By: #### L AB325 ####Reinforced Ironworker: KIM GONZALES ([phone])[address] BLOOD GAS, VENOUSon 09-26-19 24 Base excess Calc (BldV) [Moles/Vol] -1.7000 mmol/L Normal -3.0-3.0 [facility] Comment on above: Performed By: #### L AB79 ####Reinforced Ironworker: KIM [id number])[address] CO2 [Moles/Vol] 23.3 mmol/L Low 24.0-28.0 [facility] Comment on above: Performed By: #### L AB79 ####Reinforced Ironworker: KIM [id number])[address] HCO3 (Bld) [Moles/Vol] 22.2 mmol/L Low 23.0-27.0 [facility] Comment on above: Performed By: #### L AB79 ####Reinforced Ironworker: KIM [id number])[facility])[address] [place] [address] Hemoglobin (Bld) [Mass/Vol] 10.8 g/dL Normal Screen Only [facility] Comment on above: Performed By: #### L AB79 ####Reinforced Ironworker: KIM GONZALES ([id number])[facility])[address] [place] [address] OXYGEN (MM HG) IN VENOUS BLOOD 50.7 mm Hg High 30.0-50.0 [facility] Comment on above: Performed By: #### L AB79 ####Reinforced Ironworker: KIM GONZALES ([id number])[facility])[address] [place] [address] OXYGEN SATURATION (%) IN VENOUS BLOOD 82.7 % High 60.0-80.0 [facility] Comment on above: Performed By: #### L AB79 ####Reinforced Ironworker: KIM GONZALES ([id number])[facility])[address] [place] [address] PCO2, CHRISTINE 34.6 mm Hg Low 40.0-55.0 [facility] Comment on above: Performed By: #### L AB79 ####Reinforced Ironworker: KIM GONZALES ([phone])[facility])[address] [place] [address] PH VENOUS 7.425 Normal 7.330-7.43 0 [facility] Comment on above: Performed By: #### L AB79 ####Reinforced Ironworker: KIM GONZALES ([id number])[facility])[address] [place] [address] SOURCE OF OXYGEN Nasal cannula Normal [facility] Comment on above: Result Comment: 3 li ters ORDER COMMENTS: Interpret with caution, pO2 value falsely increased due to vacuum in tube. For accurate results, please draw on a syringe. Performed By: #### L [id number] ####Reinforced Ironworker: KIM GONZALES ([phone])[facility])[address] [place] [address] CARECOORDon 09-26-2023 [facility] [place] Care Managment Initi al Assessment Date: 09/26/2023 Patient Name: Eben Cruz : 1945 Patient Information Source of Information: Patient Physician Office Rep Name/Contact Information: law Mendez Cognition/Language: WFL - Within Functional Limits Permission given to speak with patient retail sales representative/caregiver as indicated: Confirmation of Payer with patient/family: Yes Payer Name: [employer] Medicare Advantage [place]: Confirmation of Primary Care Physician: Confirmed PCP Name: Iwona Stewart Seen in last 2 years?: Yes Primary Caregiver: Self If assistance needed, confirmed caregiver ready, willing and able to care for patient at discharge: (plan is to return to [facility]) Confirmed with: Living Arrangements Current Residence: [...] expects to be discharged to: return to [facility] Discharge Planning Actions: Patient's Choice Rights and [employer] and Collaborative Relationships Disclosed as Indicated for Post-Acute Care: Yes Interdisciplinary Team Engagement: Acute Rehab Social Work Referral for: Additional Information: Pt admitted from [facility] for cardiac interventional procedure. Pt had a stroke 04/2023, Hip surgery last , then went to [facility] in [place]. Transferred to [facility] for planned cardiac intervention. PCI with 3 stents and lithotripsy this AM. 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 Used a cane prn. Has been at [facility] since Sun per dtr. Plan is to return at [facility] tasked to send referral. [facility] Will need PT/OT for auth. Arminda Lawler RN Normal [facility] CBC W Auto Differential pane l (Bld)on 09-26-2023 Basophils (Bld) [#/Vol] 0.1 10*3/uL 0.0 - 0.2 10*3/uL [facility] Basophils/100 WBC (Bld) 0.4 % 0.0 - 2.0 % [facility] Eosinophils (Bld) [#/Vol] 0.0 10*3/uL 0.0 - 0.5 10*3/uL [facility] Eosinophils/100 WBC (Bld) 0.1 % 0.0 - 6.0 % [facility] Erythrocyte distribution width (RBC) [Ratio] 13.2 % 11.5 - 15.0 % [facility] Hematocrit (Bld) [Volume fraction] 30.6 % Low 40.0 - 52.0 % [facility] Hemoglobin (Bld) [Mass/Vol] 9.8 g/dL Low 13.0 - 18.0 g/dL [facility] Immature granulocytes (Bld) [#/Vol] 0.1 10*3/uL High NINF - 0.1 10*3/uL [facility] Immature granulocytes/100 WBC (Bld) 0.7 % 0.0 - 2.0 % [facility] Interpretation and review of laboratory results Abnormal [facility] Lymphocytes (Bld) [#/Vol] 1.3 10*3/uL 1.0 - 4.3 10*3/uL [facility] Lymphocytes/100 WBC (Bld) 8.7 % Low 15.0 - 45.0 % [facility] MCH (RBC) [Entitic mass] 30.0 pg 26.0 - 34.0 pg [facility] MCHC (RBC) [Mass/Vol] 32.0 % 30.5 - 36.0 % [facility] MCV (RBC) [Entitic vol] 93.6 fL 77.0 - 99.0 fL [facility] Monocytes (Bld) [#/Vol] 1.2 10*3/uL High 0.0 - 0.9 10*3/uL [facility] Monocytes/100 WBC (Bld) 8.1 % 5.0 - 13.0 % [facility] Neutrophils (Bld) [#/Vol] 12.2 10*3/uL High 1.8 - 7.5 10*3/uL [facility] Neutrophils/100 WBC (Bld) 82.0 % 38.0 - 82.0 % [facility] Nucleated RBC/100 WBC (Bld) [Ratio] 0.0 % [facility] Platelet mean volume (Bld) [Entitic vol] 10.5 fL 9.0 - 12.7 fL [facility] Platelets (Bld) [#/Vol] 343 10*3/uL 140 - 440 10*3/uL [facility] RBC (Bld) [#/Vol] 3.27 10*6/uL Low 4.40 - 5.90 10*6/uL [facility] WBC (Bld) [#/Vol] 14.9 10*3/uL High 3.6 - 10.7 10*3/uL [facility] CBC WITH AUTO DIFFERENTIALon 09-26-2023 Basophils (Bld) [#/Vol] 0.1 10*3/uL Normal 0.0-0.2 [facility] Comment on above: Performed By: #### L [id number] ####Reinforced Ironworker: KIM GONZALES ([id number])[address] Basophils/100 WBC (Bld) 0.4 % Normal 0.0-2.0 [facility] Comment on above: Performed By: #### L [id number] ####Reinforced Ironworker: KIM GONZALES ([id number])[facility])[address] [place] [address] Eosinophils (Bld) [#/Vol] 0.0 10*3/uL Normal 0.0-0.5 [facility] Comment on above: Performed By: #### L [id number] ####Reinforced Ironworker: KIM GONZALES ([id number])[facility])[address] [place] [address] [place] Eosinophils/100 WBC (Bld) 0.1 % Normal 0.0-6.0 [facility] Comment on above: Performed By: #### L [id number] ####Reinforced Ironworker: KIM GONZALES ([id number])[address] Erythrocyte distribution width (RBC) [Ratio] 13.2 % Normal 11.5-15.0 [facility] Comment on above: Performed By: #### L [id number] ####Reinforced Ironworker: KIM GONZALES ([id number])[address] Hematocrit (Bld) [Volume fraction] 30.6 % Low 40.0-52.0 [facility] Comment on above: Performed By: #### L [id number] ####Reinforced Ironworker: KIM GONZALES ([id number])[address] Hemoglobin (Bld) [Mass/Vol] 9.8 g/dL Low 13.0-18.0 [facility] Comment on above: Performed By: #### L [id number] ####Reinforced Ironworker: KIM GONZALES ([id number])[address] IMMATURE GRANS % 0.7 % Normal 0.0-2.0 [facility] Comment on above: Performed By: #### L [id number] ####Reinforced Ironworker: KIM GONZALES ([id number])[address] IMMATURE GRANS ABSOLUTE 0.1 10*3/uL High <0.1 [facility] Comment on above: Performed By: #### L [id number] ####Reinforced Ironworker: KIM GONZALES ([id number])[address] Lymphocytes (Bld) [#/Vol] 1.3 10*3/uL Normal 1.0-4.3 [facility] Comment on above: Performed By: #### L [id number] ####Reinforced Ironworker: KIM GONZALES ([id number])[facility])[address] [place] [address] Lymphocytes/100 WBC (Bld) 8.7 % Low 15.0-45.0 [facility] Comment on above: Performed By: #### L [id number] ####Reinforced Ironworker: KIM GONZALES ([phone])[facility])[address] [place] [address] MCH (RBC) [Entitic mass] 30.0 pg Normal 26.0-34.0 [facility] Comment on above: Performed By: #### L [id number] ####Reinforced Ironworker: KMI GONZALES ([id number])[facility])[address] [place] [address] MCHC 32.0 % Normal 30.5-36.0 [facility] Comment on above: Performed By: #### L [id number] ####Reinforced Ironworker: KIM GONZALES ([id number])[facility])[address] [place] [address] MCV (RBC) [Entitic vol] 93.6 fL Normal 77.0-99.0 [facility] Comment on above: Performed By: #### L [id number] ####Reinforced Ironworker: KIM GONZALES ([id number])[facility])[address] [place] [address] Monocytes (Bld) [#/Vol] 1.2 10*3/uL High 0.0-0.9 [facility] Comment on above: Performed By: #### L [id number] ####Reinforced Ironworker: KIM GONZALES ([id number])[facility])[address] [place] [address] Monocytes/100 WBC (Bld) 8.1 % Normal 5.0-13.0 [facility] Comment on above: Performed By: #### L [id number] ####Reinforced Ironworker: KIM GONZALES ([phone])[facility])[address] [place] [address] NEUTROPHILS ABSOLUTE 12.2 10*3/uL High 1.8-7.5 [facility] Comment on above: Performed By: #### L [id number] ####Reinforced Ironworker: KIM GONZALES ([id number])[facility] ([facility])[address] [place] [address] Neutrophils/100 WBC (Bld) 82.0 % Normal 38.0-82.0 [facility] Comment on above: Performed By: #### L [id number] ####Reinforced Ironworker: KIM GONZALES ([id number])[facility] ([facility])[address] [place] [address] NRBC 0.0 /100 WBCs Normal 0.0-2.0 [facility] Comment on above: Performed By: #### L [id number] ####Reinforced Ironworker: KIM GONZALES ([id number])[facility] ([facility])[address] [place] [address] Platelet mean volume (Bld) [Entitic vol] 10.5 fL Normal 9.0-12.7 [facility] Comment on above: Performed By: #### L [id number] ####Reinforced Ironworker: KIM GONZALES ([id number])[facility] ([facility])[address] [place] [address] Platelets (Bld) [#/Vol] 343 10*3/uL Normal 140-440 [facility] Comment on above: Performed By: #### L [id number] ####Reinforced Ironworker: KIM GONZALES ([id number])[facility] ([facility])[address] [place] [address] [place] RBC (Bld) [#/Vol] 3.27 10*6/uL Low 4.40-5.90 [facility] Comment on above: Performed By: #### L [id number] ####Reinforced Ironworker: KIM GONZALES ([id number])[facility] ([facility])[address] [place] [address] [place] WBC (Bld) [#/Vol] 14.9 10*3/uL High 3.6-10.7 [facility] Comment on above: Performed By: #### L [id number] ####Reinforced Ironworker: KIM GONZALES ([id number])[facility])[address] [place] [address] COMPREHENSIVE METABOLIC PANE Miguel Angel 09-26-2023 Albumin [Mass/Vol] 3.3 g/dL Low 3.5-5.0 [facility] Comment on above: Performed By: #### Barry AB103, [id number], LAB17 ####Reinforced Ironworker: KIM GONZALES ([id number])[facility] ([facility])[address] [place] [address] ALP [Catalytic activity/Vol] 82 U/L Normal 38-126 [facility] Comment on above: Performed By: #### Barry AB103, [id number], LAB17 ####Reinforced Ironworker: KIM GONZALES ([id number])[facility] ([facility])[address] [place] [address] ALT [Catalytic activity/Vol] 55 U/L High 0-49 [facility] Comment on above: Performed By: #### Barry AB103, [id number], LAB17 ####Reinforced Ironworker: KIM GONZALES ([id number])[facility] ([facility])[address] [place] [address] Anion gap [Moles/Vol] 8 mmol/L Normal 3-13 [facility] Comment on above: Performed By: #### L AB103, [id number], LAB17 ####Reinforced Ironworker: KIM GONZALES ([id number])[facility])[address] [place] [address] AST [Catalytic activity/Vol] 130 U/L High 15-46 [facility] Comment on above: Performed By: #### L AB103, [id number], LAB17 ####Reinforced Ironworker: KIM GONZALES ([id number])[facility])[address] [place] [address] Bilirubin [Mass/Vol] 0.8 mg/dL Normal 0.2-1.3 [facility] Comment on above: Performed By: #### L AB103, [id number], LAB17 ####Reinforced Ironworker: KIM GONZALES ([id number])[facility] ([facility])[address] [place] [address] Calcium [Mass/Vol] 8.5 mg/dL Normal 8.4-10.4 [facility] Comment on above: Performed By: #### L AB103, [id number], LAB17 ####Reinforced Ironworker: KIM GONZALES ([id number])[facility] [place] [address] [place] Chloride [Moles/Vol] 105 mmol/L Normal 98-107 [facility] Comment on above: Performed By: #### Barry AB103, [id number], LAB17 ####Reinforced Ironworker: KIM GONZALES ([id number])[facility] [place] [address] CO2 [Moles/Vol] 23 mmol/L Normal 22-30 [facility] Comment on above: Performed By: #### Barry AB103, [id number], LAB17 ####Reinforced Ironworker: KIM GONZALES ([id number])[facility] ([facility])[address] [place] [address] Creatinine [Mass/Vol] 0.86 mg/dL Normal 0.66-1.[address] [facility] Comment on above: Performed By: #### Barry AB103, [id number], LAB17 ####Reinforced Ironworker: KIM GONZALES ([id number])[facility] ([facility])[address] [place] [address] [place] GLOMERULAR FILTRATION RATE ML/MIN/1.73 SQ M.PREDICTED 87.5 mL/min/1.73m*2 Normal >60.0 [facility] Comment on above: Result Comment: Calc ulation based on the Chronic Kidney Disease Epidemiology Collaboration (CKD-EPI) equation refit without adjustment for race Performed By: #### L AB103, [id number], LAB17 ####Reinforced Ironworker: KIM GONZALES ([id number])[facility] ([facility])[address] [place] [address] [place] Glucose [Mass/Vol] 155 mg/dL High 70-100 [facility] Comment on above: Performed By: #### L AB103, [id number], LAB17 ####Reinforced Ironworker: KIM GONZALES ([id number])[facility] ([facility])[address] [place] [address] Potassium [Moles/Vol] 4.4 mmol/L Normal 3.5-5.[address] [facility] Comment on above: Performed By: #### L AB103, [id number], LAB17 ####Reinforced Ironworker: KIM GONZALES ([id number])[facility] ([facility])[address] [place] [address] Protein [Mass/Vol] 6.6 g/dL Normal 6.3-8.2 [facility] Comment on above: Performed By: #### Barry AB103, [id number], LAB17 ####Reinforced Ironworker: KIM GONZALES ([id number])[facility] ([facility])[address] [place] [address] Sodium [Moles/Vol] 135 mmol/L Normal 135-145 [facility] Comment on above: Performed By: #### Barry AB103, [id number], LAB17 ####Reinforced Ironworker: KIM GONZALES ([phone])[facility] ([facility])[address] [place] [address] Urea nitrogen [Mass/Vol] 39 mg/dL High 9-20 [facility] Comment on above: Performed By: #### L AB103, [id number], LAB17 ####Reinforced Ironworker: KIM GONZALES ([id number])[facility] ([facility])[address] [place] [address] Cardiac catheterization stud yon 09-26-2023 [facility] Comprehensive metabolic 1998 panelon 09-26-2023 Albumin [Mass/Vol] 3.3 g/dL Low 3.5 - 5.0 g/dL [facility] ALP [Catalytic activity/Vol] 82 U/L 38 - 126 U/L [facility] ALT [Catalytic activity/Vol] 55 U/L High 0 - 49 U/L [facility] Anion gap [Moles/Vol] 8 mmol/L 3 - 13 mmol/L [facility] AST [Catalytic activity/Vol] 130 U/L High 15 - 46 U/L [facility] Bilirubin [Mass/Vol] 0.8 mg/dL 0.2 - 1 .3 mg/dL [facility] Calcium [Mass/Vol] 8.5 mg/dL 8.4 - 10. 4 mg/dL [facility] Chloride [Moles/Vol] 105 mmol/L 98 - 10 7 mmol/L [facility] CO2 [Moles/Vol] 23 mmol/L 22 - 30 mmol/L [facility] Creatinine [Mass/Vol] 0.86 mg/dL 0.66 - 1.25 mg/dL [facility] GFR/1.73 sq M.predicted MDRD (S/P/Bld) [Vol rate/Area] 87.5 mL/min/{1.73_m2} - PINF [facility] th Glucose [Mass/Vol] 155 mg/dL High 70 - 100 mg/dL [facility] Interpretation and review of laboratory results Abnormal [facility] Potassium [Moles/Vol] 4.4 mmol/L 3.5 - 5.1 mmol/L [facility] Protein [Mass/Vol] 6.6 g/dL 6.3 - 8.2 g/dL [facility] Sodium [Moles/Vol] 135 mmol/L 135 - 145 mmol/L [facility] Urea nitrogen [Mass/Vol] 39 mg/dL High 9 - 20 mg/dL [facility] IDNon 09-26-2023 IDN Problem: Knowledge D eficit Goal: Patient/family/caregiver demonstrates understanding of disease process, treatment plan, medications, and discharge instructions Outcome: Progressing Problem: Potential for Compromised Skin Integrity Goal: Skin Integrity is Maintained or Improved Outcome: Progressing Goal: Nutritional status is improving Outcome: Progressing Problem: Urinary Incontinence Goal: Perineal skin integrity is maintained or improved Outcome: Progressing Normal [facility] Laboratory - Chemistry and C hemistry - challengeOrdered By: Shelbi Lopez on 09-26-2023 Base excess Calc (BldV) [Moles/Vol] -1.7000 mmol/L -3.0 - 3.0 mmol/L [facility] CO2 (BldV) [Partial pressure] 34.6 mm[Hg] Low [facility] CO2 [Moles/Vol] 23.3 mmol/L Low 24.0 - 28.0 mmol/L [facility] HCO3 (Bld) [Moles/Vol] 22.2 mmol/L Low 23.0 - 27.0 mmol/L [facility] Oxygen (BldV) [Partial pressure] 50.7 mm[Hg] High [facility] pH (BldV) 7.425 [pH] 7.330 - 7.430 [facility] Laboratory - Chemistry and C hemistry - challengeon 09-26-2023 Magnesium [Mass/Vol] 2.4 mg/dL High 1.6 - 2 .3 mg/dL [facility] Laboratory - Hematology and Cell countsOrdered By: Shelbi Lopez on 09-26-2023 Hemoglobin (Bld) [Mass/Vol] 10.8 g/dL Screen Only [facility] MAGNESIUMon 09-26-2023 Magnesium [Mass/Vol] 2.4 mg/dL High 1.6-2.3 [facility] Comment on above: Performed By: #### L AB103, [id number], LAB17 ####Reinforced Ironworker: KIM GONZALES ([phone])[address] Magnesium [Mass/Vol]on 09-25 Interpretation and review of laboratory results Abnormal [facility] No Panel InformationOrdered By: Shelbi Lopez on 09-26-2023 Interpretation and review of laboratory results Abnormal [facility] Source Of Oxygen Nasal cannula [facility] No Panel Informationon 09-25 [facility] Interpretation and review of laboratory results Abnormal [facility] POCT ACT 180 High [facility] POCT ACT 349 High [facility] POCT ACT 255 High [facility] POCT ACT 304 High [facility] Interpretation and review of laboratory results Abnormal [facility] POCT ACT 159 High [facility] CV CPACS HEMO Radiology Study observation (narrative) [facility] Radiology Study observation (narrative) [facility] Radiology Study observation (narrative) [facility] Radiology Study observation (narrative) [facility] Radiology Study observation (narrative) [facility] PHOSPHORUSon 09-26-2023 Phosphate [Mass/Vol] 3.9 mg/dL Normal 2.5-4.5 [facility] Comment on above: Performed By: #### L AB103, [id number], LAB17 ####Reinforced Ironworker: KIM GONZALES ([id number])[facility] ([address] Phosphate [Moles/Vol]on 09-16 Interpretation and review of laboratory results Normal [facility] Phosphate [Mass/Vol] 3.9 mg/dL 2.5 - 4 .5 mg/dL [facility] Progress Noteon 09-26-2023 Progress Note Evaluated patient [...] will start GDMT in am ([facility] and [place]). Right femoral site without bleeding or hematoma. Sheath was removed, dressing dry and intact. Normal [facility] Vital signsOrdered By: Shelbi Lopez on 09-26-2023 Oxygen saturation in Venous blood 82.7 % High 60.0 - 80.0 % [facility] XR CHEST 1 VIEWon 09-26-2023 XR CHEST [...] Signed Date/Time: 09/26/2023 7:29 PM EDT Normal [facility] XR Chest Single viewon 09-25 [facility] Radiology Study observation (narrative) [facility] XR Chest Single viewOrdered By: Ora Cornell on 09-26-2023 [facility] [employer] Work Phone: aPTT Coag (Bld) [Time]on aPTT Coag (PPP) [Time] 38.2 s High 20.0 - 30.5 s [facility] Interpretation and review of laboratory results Abnormal [facility] APTTon 09-25-2023 aPTT Coag (Bld) [Time] 36.2 s High 20.0-30.5 [facility] Comment on above: Result Comment: RINA Vogel COMMENTS: NOTE: The therapeutic time for Heparin anticoagulation, based on Xa activity inhibition, is an APTT of 46-80 seconds. Performed By: #### L AB325 ####Reinforced Ironworker: KIM GONZALES ([id number])[address] aPTT Coag (Bld) [Time] 32.8 s High 20.0-30.5 [facility] Comment on above: Result Comment: RINA Vogel COMMENTS: NOTE: The therapeutic time for Heparin anticoagulation, based on Xa activity inhibition, is an APTT of 46-80 seconds. Performed By: #### L AB325 ####Reinforced Ironworker: KIM GONZALES ([phone])[facility] [employer] Absolute lymphocyte countOrd ered By: Natalia Garcia on 09-25-2023 Lymphocytes Auto (Unsp spec) [#/Vol] 1.49 10*3/uL 0.83-4.51 [facility] Automated lymphocyte count a s percentage of total leukocytesOrdered By: Natalia Garcia on 09-25-2023 Lymphocytes/100 WBC Auto (Unsp spec) 13.9 % 19-41 [facility] Basophil percentageOrdered B y: Natalia Garcia on 09-25-2023 Basophil percentage 4.4 mg/dL 2.5-4.9 [facility] Basophils/100 WBC (Bld) 0.6 % 0-1 [facility] Bilirubin [Mass/Vol] 0.80 mg/dL 0.20-1.00 [facility] Comment on above: For patients on eltr ombopag therapy, use of [employer] [place] TBIL is not recommended. Chloride [Moles/Vol] 107 mmol/L 98-107 [facility] Eosinophils/100 WBC (Bld) 0.4 % 0-5 [facility] Glucose [Mass/Vol] 146 mg/dL 74-106 [facility] Comment on above: Fasting Glucose resu lt greater than or equal to 126 mg/dL suggests DIABETES MELLITUS per A.D.A. criteria. Hemoglobin (Bld) [Mass/Vol] 10.0 g/dL 13.0-16.5 [facility] Monocytes/100 WBC (Bld) 9.7 % 0-10 [facility] Neutrophils (Bld) [#/Vol] 8.0 10*3/uL 2.0-7.7 [facility] Neutrophils/100 WBC (Bld) 74.6 % 47-70 [facility] Potassium [Moles/Vol] 4.5 mmol/L 3.5-5.1 [facility] Protein [Mass/Vol] 6.7 g/dL 6.4-8.2 [facility] Sodium [Moles/Vol] 138 mmol/L 136-145 [facility] WBC (Bld) [#/Vol] 10.7 10*3/uL 4.4-11.0 [facility] CBC (HEMOGRAM)on 09-25-2023 Erythrocyte distribution width (RBC) [Ratio] 13.2 % Normal 11.5-15.0 [facility] Comment on above: Performed By: #### L AB294 ####Reinforced Ironworker: KIM GONZALES ([phone])[address] Hematocrit (Bld) [Volume fraction] 30.4 % Low 40.0-52.0 [facility] Comment on above: Performed By: #### L AB294 ####Reinforced Ironworker: KIM GONZALES ([phone])[facility] ([facility])[address] [place] [address] Hemoglobin (Bld) [Mass/Vol] 9.8 g/dL Low 13.0-18.0 [facility] Comment on above: Performed By: #### L AB294 ####Reinforced Ironworker: KIM GONZALES ([id number])[facility] ([facility])[address] [place] [address] MCH (RBC) [Entitic mass] 30.5 pg Normal 26.0-34.0 [facility] Comment on above: Performed By: #### L AB294 ####Reinforced Ironworker: KIM GONZALES ([phone])[facility])[address] [place] [address] MCHC 32.2 % Normal 30.5-36.0 [facility] Comment on above: Performed By: #### L AB294 ####Reinforced Ironworker: KIM GONZALES ([id number])[facility] ([facility])[address] [place] [address] MCV (RBC) [Entitic vol] 94.7 fL Normal 77.0-99.0 [facility] Comment on above: Performed By: #### L [id number] ####Reinforced Ironworker: KIM GONZALES ([phone])[facility] ([facility])[address] [place] [address] Platelet mean volume (Bld) [Entitic vol] 10.9 fL Normal 9.0-12.7 [facility] Comment on above: Performed By: #### L [id number] ####Reinforced Ironworker: KIM GONZALES ([phone])[facility])[address] [place] [address] Platelets (Bld) [#/Vol] 353 10*3/uL Normal 140-440 [facility] Comment on above: Performed By: #### L [id number] ####Reinforced Ironworker: KIM GONZALES ([phone])[facility] [place] [address] RBC (Bld) [#/Vol] 3.21 10*6/uL Low 4.40-5.90 [facility] Comment on above: Performed By: #### L [id number] ####Reinforced Ironworker: KIM GONZALES ([phone])[facility] ([facility])[address] [place] [address] WBC (Bld) [#/Vol] 13.9 10*3/uL High 3.6-10.7 [facility] Comment on above: Performed By: #### L [id number] ####Reinforced Ironworker: IKM GONZALES ([phone])[facility] ([facility])[address] [place] [address] CBC panel Auto (Bld)on 09-24 Erythrocyte distribution width (RBC) [Ratio] 13.2 % 11.5 - 15.0 % [facility] Hematocrit (Bld) [Volume fraction] 30.4 % Low 40.0 - 52.0 % [facility] Hemoglobin (Bld) [Mass/Vol] 9.8 g/dL Low 13.0 - 18.0 g/dL [facility] Interpretation and review of laboratory results Abnormal [facility] MCH (RBC) [Entitic mass] 30.5 pg 26.0 - 34.0 pg [facility] MCHC (RBC) [Mass/Vol] 32.2 % 30.5 - 36.0 % [facility] MCV (RBC) [Entitic vol] 94.7 fL 77.0 - 99.0 fL [facility] Platelet mean volume (Bld) [Entitic vol] 10.9 fL 9.0 - 12.7 fL [facility] Platelets (Bld) [#/Vol] 353 10*3/uL 140 - 440 10*3/uL [facility] RBC (Bld) [#/Vol] 3.21 10*6/uL Low 4.40 - 5.90 10*6/uL [facility] WBC (Bld) [#/Vol] 13.9 10*3/uL High 3.6 - 10.7 10*3/uL [facility] Determination of erythrocyte mean corpuscular volume (MCV)Ordered By: Natalia Garcia on 09-25-2023 MCV (RBC) [Entitic vol] 97.5 fL 80-94 [facility] Erythrocyte distribution wid th ratioOrdered By: Natalia Garcia on 09-25-2023 Erythrocyte distribution width (RBC) [Ratio] 13.0 % 11.6-14.6 [facility] Erythrocyte distribution wid th standard deviationOrdered By: Natalia Garcia on 09-25-2023 Erythrocyte distribution width (RBC) [Entitic vol] 46.5 fL 35.1-43.9 [facility] Hematocrit Auto (Bld) [Volum e fraction]Ordered By: Natalia Gracia on 09-25-2023 Hematocrit (Bld) [Volume fraction] 31.8 % 40-54 [facility] IDNon 09-25-2023 IDN Problem: Knowledge D eficit Goal: Patient/family/caregiver demonstrates understanding of disease process, treatment plan, medications, and discharge instructions Outcome: Progressing Problem: Potential for Compromised Skin Integrity Goal: Skin Integrity is Maintained or Improved Outcome: Progressing Goal: Nutritional status is improving Outcome: Progressing Problem: Urinary Incontinence Goal: Perineal skin integrity is maintained or improved Outcome: Progressing Normal [facility] Immature granulocytes/100 WB C Auto (Bld)Ordered By: Natalia Garcia on 09-25-2023 Immature granulocytes/100 WBC (Bld) 0.800 % 0.0-0.9 [facility] Comment on above: IG% - Immature Granu locytes (promyelocytes, myelocytes and metamyelocytes) > 1% indicates that a LEFT SHIFT is Present. Laboratory - Chemistry and C hemistry - challengeOrdered By: Greta Villalba on 09-25-2023 Troponin I.cardiac [Mass/Vol] 25.400 ng/mL Critically high NINF - 0.034 ng/mL [facility] Laboratory - Chemistry and C hemistry - challengeOrdered By: Natalia Garcia on 09-25-2023 Albumin/Globulin [Mass ratio] 0.6 {ratio} 0.9-2.4 [facility] ALP [Catalytic activity/Vol] 74 U/L 45-117 [facility] ALT [Catalytic activity/Vol] 63 U/L 16-61 [facility] CO2 [Moles/Vol] 24.0 mmol/L 21.0-32.0 [facility] Globulin (S) [Mass/Vol] 4.3 g/dL 2.2-4.2 [facility] Magnesium [Mass/Vol] 2.5 mg/dL 1.6-2.6 [facility] Urea nitrogen/Creatinine [Mass ratio] 35.5 mg/mg 10-20 [facility] Laboratory - Hematology and Cell countsOrdered By: Natalia Garcia on 09-25-2023 MCH (RBC) [Entitic mass] 30.7 pg 27.0-32.0 [facility] MCHC (RBC) [Mass/Vol] 31.4 g/dL 32-36 [facility] Nucleated RBC/100 WBC (Bld) [Ratio] 0 % 0-5 [facility] Platelet mean volume (Bld) [Entitic vol] 10.9 fL 6.2-12.0 [facility] Platelets (Bld) [#/Vol] 330 10*3/uL 150-450 [facility] No Panel InformationOrdered By: Natalia Garcia on 09-25-2023 Estimated Creatinine Clearance Calc 61.86 ml/min [facility] Estimated GFR (MDRD) Amer 83 mL/min >60 [facility] Comment on above: GFR Calc Estimated GFR (MDRD) Non-Af Amer 68 mL/min >60 [facility] Comment on above: Non- GFR Calc RBC Auto (Bld) [#/Vol]Ordere d By: Natalia Garcia on 09-25-2023 RBC (Bld) [#/Vol] 3.26 10*6/uL 4.6-6.2 [facility] Serum or plasma calcium kian urement (mass/volume)Ordered By: Natalia Garcia on 09-25-2023 Calcium [Mass/Vol] 8.9 mg/dL 8.5-10.1 [facility] Serum or plasma creatinine m easurement (mass/volume)Ordered By: Natalia Garcia on 09-25-2023 Creatinine [Mass/Vol] 1.10 mg/dL 0.70-1.30 [facility] Comment on above: The validity of the calculated GFR & GFRAA in patients over 70 years has not been determined. Clinical correlation is essential. Serum or plasma urea nitroge n measurement (mass/volume)Ordered By: Natalia Garcia on 09-25-2023 Urea nitrogen [Mass/Vol] 39 mg/dL 7-18 [facility] TROPONIN Ion 09-25-2023 Troponin I.cardiac [Mass/Vol] 25.400 ng/mL Critically high <0.034 [facility] Comment on above: Result Comment: RINA Vogel COMMENTS: Patients with high levels of Biotin oral intake (ie >5 mg/day) may have falsely decreased Troponin levels. Performed By: #### L [id number] #### Reinforced Ironworker: KIM GONZALES ([phone]) [facility] ([facility]) [address] [place] [address] Thin prep Papanicolaou smear with manual screeningOrdered By: Natalia Garcia on 09-25-2023 Thin prep Papanicolaou smear with manual screening 2.4 g/dL 3.2-5.0 [facility] Thin prep Papanicolaou smear with manual screening 260 U/L 15-37 [facility] Thin prep Papanicolaou smear with manual screening 7 5-15 [facility] Troponin I.cardiac [Mass/Vol ]Ordered By: Greta Villalba on 09-25-2023 Interpretation and review of laboratory results Abnormal [facility] aPTT Coag (Bld) [Time]on aPTT Coag (PPP) [Time] 36.2 s High 20.0 - 30.5 s [facility] Interpretation and review of laboratory results Abnormal [facility] aPTT Coag (PPP) [Time] 32.8 s High 20.0 - 30.5 s [facility] Interpretation and review of laboratory results Abnormal [facility] Activated partial thrombopla stin time (aPTT) in platelet poor plasma by coagulation aOrdered By: Bret Green on 09-24-2023 aPTT Coag (PPP) [Time] 53.6 s 24.1-36.2 [facility] Amorphous sediment detection in urine sediment by light microscopyOrdered By: Natalia Garcia on 09-24-2023 Amorphous sediment LM Ql (Urine sed) 1+ URATE [facility] Assessment of wrist artery p atency prior to arterial punctureOrdered By: Natalia Garcia on 09-24-2023 Arterial patency Wrist artery --pre arterial puncture Positive [facility] Base excessOrdered By: Aure Garcia on 09-24-2023 Base excess Calc (BldV) [Moles/Vol] -5 mmol/L -2-2 [facility] Basophil percentageOrdered B y: Natalia Garcia on 09-24-2023 Basophil percentage >100 SEEN /hpf 0-5 [facility] Basophil percentage 20 mmol/L [facility] Basophils/100 WBC (Bld) 98 % 95-99 [facility] Basophil percentageOrdered B y: Bret Green on 09-24-2023 Chloride [Moles/Vol] 110 mmol/L 98-107 [facility] Glucose [Mass/Vol] 133 mg/dL 74-106 [facility] Comment on above: Fasting Glucose resu lt greater than or equal to 126 mg/dL suggests DIABETES MELLITUS per A.D.A. criteria. Potassium [Moles/Vol] 4.1 mmol/L 3.5-5.1 [facility] Sodium [Moles/Vol] 140 mmol/L 136-145 [facility] Bilirubin Test strip Ql (U)O rdered By: Natalia Garcia on 09-24-2023 Bilirubin Ql (U) Negative Negative [facility] Culture, urineOrdered By: Ilir Garcia on 09-24-2023 Bacteria identified Cx Nom (U) Escherichia coli [facility] Ketones Test strip Ql (U)Ord ered By: Natalia Garcia on 09-24-2023 Ketones Ql (U) Negative Negative [facility] Laboratory - Chemistry and C hemistry - challengeOrdered By: Bret Green on 09-24-2023 CO2 [Moles/Vol] 26.0 mmol/L 21.0-32.0 [facility] Urea nitrogen/Creatinine [Mass ratio] 30.7 mg/mg 10-20 [facility] Laboratory - Chemistry and C hemistry - challengeOrdered By: Sarah Perrin on 09-24-2023 Magnesium [Mass/Vol] 2.1 mg/dL 1.6-2.6 [facility] Laboratory - Chemistry and C hemistry - challengeOrdered By: Natalia Garcia on 09-24-2023 Natriuretic peptide B (Bld) [Mass/Vol] 394.3 pg/mL 0-100 [facility] Measurement, pHOrdered By: Eva Garcia on 09-24-2023 pH (Unsp spec) 7.41 [pH] 7.35-7.45 [facility] Mucus LM Ql (Urine sed)Order ed By: Natalia Garcia on 09-24-2023 Mucus Ql (Urine sed) 0 SEEN /hpf [facility] Nitrite Test strip Ql (U)Ord ered By: Natalia Garcia on 09-24-2023 Nitrite Ql (U) Positive Negative [facility] No Panel InformationOrdered By: Natalia Garcia on 09-24-2023 Urine RBC 0-5 SEEN /hpf 0-5 [facility] Arterial Blood Partial Pressure CO2 30.5 mmHg 35-45 [facility] Arterial Blood Partial Pressure O2 105 mmHG 75-100 [facility] Blood Gas Bicarbonate Actual 19.4 mmol/L 22-26 [facility] Blood Gas Oxygen Percent 12.0 [facility] Blood Gas Sample Site L Radial [facility] Blood Gas Specimen Type ART [facility] Blood Gas Vent Mode Not entered [facility] Oxygen Delivery Device NRB [facility] Activated Clotting Time 217 sec 74-137 [facility] No Panel InformationOrdered By: Bret Green on 09-24-2023 Estimated Creatinine Clearance Calc 67.38 ml/min [facility] Estimated GFR (MDRD) Amer 91 mL/min >60 [facility] Comment on above: GFR Calc Estimated GFR (MDRD) Non-Af Amer 75 mL/min >60 [facility] Comment on above: Non- GFR Calc No Panel InformationOrdered By: Sarah Perrin on 09-24-2023 Troponin I High Sensitivity 6505 pg/mL 3.0-78.0 [facility] Comment on above: Critical Result(s) C alled at: 05:21:06 09/24/2023 by: Mateo Srinivasan. to John RN PCU. Results read back by same. Please Note: New Test Units and Gender Specific Reference Ranges. For more information see Policy Stat Procedure [place] High Sensitivity Troponin (TNIH) and attachments. Protein Test strip Ql (U)Ord ered By: Natalia Garcia on 09-24-2023 Protein Ql (U) 15 mg/dl Negative [facility] Serum or plasma calcium kina urement (mass/volume)Ordered By: Bret Green on 09-24-2023 Calcium [Mass/Vol] 8.5 mg/dL 8.5-10.1 [facility] Serum or plasma creatinine m easurement (mass/volume)Ordered By: Bret Green on 09-24-2023 Creatinine [Mass/Vol] 1.01 mg/dL 0.70-1.30 [facility] Comment on above: The validity of the calculated GFR & GFRAA in patients over 70 years has not been determined. Clinical correlation is essential. Serum or plasma urea nitroge n measurement (mass/volume)Ordered By: Bret Green on 09-24-2023 Urea nitrogen [Mass/Vol] 31 mg/dL 7-18 [facility] Squamous epithelial cells de tection in urine sediment by light microscopyOrdered By: Natalia Garcia on 09-24-2023 Epithelial cells.squamous LM Ql (Urine sed) 0-5 SEEN /hpf 0-5 [facility] Thin prep Papanicolaou smear with manual screeningOrdered By: Bret Green on 09-24-2023 Thin prep Papanicolaou smear with manual screening 4 5-15 [facility] Urine blood detectionOrdered By: Natalia Garcia on 09-24-2023 RBC Ql (U) 25 /ul Negative [facility] Urine clarityOrdered By: Anna Garcia on 09-24-2023 Clarity (U) Cloudy Clear [facility] Urine color determinationOrd ered By: Natalia Garcia on 09-24-2023 Color (U) YELLOW Yellow [facility] Urine glucose detectionOrder ed By: Natalia Garcia on 09-24-2023 Glucose Ql (U) Normal mg/dl Normal [facility] Urine leukocyte esterase det ection by dipstickOrdered By: Natalia Garcia on 09-24-2023 Leukocyte esterase Test strip Ql (U) 500 /ul Negative [facility] Urine pHOrdered By: Natalia Garcia on 09-24-2023 pH (U) 6.0 [pH] 5.0 - 8.0 [facility] Urine sediment bacteria coun t by microscopy (number/high power field)Ordered By: Natalia Garcia on 09-24-2023 Bacteria LM.HPF (Urine sed) [#/Area] 1 /[HPF] None Seen [facility] Urine specific gravity measu rementOrdered By: Natalia Garcia on 09-24-2023 Specific gravity (U) [Rel density] 1.010 1.002-1.03 0 [facility] Urine urobilinogen measureme ntOrdered By: Natalia Garcia on 09-24-2023 Urobilinogen Ql (U) Normal mg/dl Normal [facility] .Auto Diffon 09-23-2023 Basophil, Absolute 0.1 10 3/mcL Normal 0.0-0.2 [facility] ([place]) Comment on above: Performed By: #### A NSG, CBC, ADIFF, ANEU, BMP, ALB, GFR, ABOG #### [address] [address] Basophils/100 WBC (Bld) 0.7 % Normal 0.0-2.5 [facility] ([place]) Comment on above: Performed By: #### A NSG, CBC, ADIFF, ANEU, BMP, ALB, GFR, ABOG #### [address] [address] Eosinophil, Absolute 0.3 10 3/mcL Normal 0.0-0.4 [facility] ([place]) Comment on above: Performed By: #### A NSG, CBC, ADIFF, ANEU, BMP, ALB, GFR, ABOG #### [address] [address] Eosinophils/100 WBC (Bld) 3.6 % Normal 0.0-7.0 [facility] ([place]) Comment on above: Performed By: #### A NSG, CBC, ADIFF, ANEU, BMP, ALB, GFR, ABOG #### [address] [address] Lymphocyte, Absolute 1.5 10 3/mcL Normal 0.8-3.9 [facility] ([place]) Comment on above: Performed By: #### A NSG, CBC, ADIFF, ANEU, BMP, ALB, GFR, ABOG #### [address] [address] Lymphocytes/100 WBC (Bld) 17.1 % Normal 10.0-50.0 [facility] ([place]) Comment on above: Performed By: #### A NSG, CBC, ADIFF, ANEU, BMP, ALB, GFR, ABOG #### [address] [address] Monocyte, Absolute 0.8 10 3/mcL Normal 0.2-1.0 [facility] ([place]) Comment on above: Performed By: #### A NSG, CBC, ADIFF, ANEU, BMP, ALB, GFR, ABOG #### [address] [address] Monocytes/100 WBC (Bld) 9.6 % Normal 1.7-13.0 [facility] ([place]) Comment on above: Performed By: #### A NSG, CBC, ADIFF, ANEU, BMP, ALB, GFR, ABOG #### [address] [address] Neutrophils/100 WBC (Bld) 69.0 % Normal 37.0-80.0 [facility] ([place]) Comment on above: Performed By: #### A NSG, CBC, ADIFF, ANEU, BMP, ALB, GFR, ABOG #### [address] [address] .GFRon 09-23-2023 GFR 82 ml/min/1.73sqm Normal [facility] ([place]) Comment on above: Result Comment: GFR Population [...] Performed By: #### G FR, BMP #### [address] [address] GFR Non- 68 ml/min/1.73sqm Normal [facility] ([place]) Comment on above: Result Comment: GFR Population [...] Performed By: #### G FR, BMP #### [address] [address] .NEUABSon 09-23-2023 Neutrophil, Absolute 6.1 10 3/mcL Normal 2.9-6.2 [facility] ([place]) Comment on above: Performed By: #### A NSG, CBC, ADIFF, ANEU, BMP, ALB, GFR, ABOG #### [address] [address] APTTon 09-23-2023 aPTT Coag (Bld) [Time] 30.8 s Normal 25.0-35.0 [facility] ([place]) Comment on above: Result Comment: For Heparin anticoagulation therapy, the recommended therapeutic range is: 50.6-87.4 seconds. Patients on heparin therapy may have an extreme result. Performed By: #### A NSG, CBC, ADIFF, ANEU, BMP, ALB, GFR, ABOG #### [address] [address] Heparin dose (APTT) None Normal [facility] Comment on above: Performed By: #### A NSG, CBC, ADIFF, ANEU, BMP, ALB, GFR, ABOG #### [address] [address] Basophil percentageOrdered B y: Bret Green on 09-23-2023 Bilirubin [Mass/Vol] 0.80 mg/dL 0.20-1.00 [facility] Comment on above: For patients on eltr ombopag therapy, use of Dimension [place] TBIL is not recommended. Cholesterol [Mass/Vol] 93 mg/dL <200 [facility] Comment on above: <200 mg/dL Desirable 200-240 mg/dL Borderline >240 mg/dL High Risk Protein [Mass/Vol] 6.1 g/dL 6.4-8.2 [facility] Triglyceride [Mass/Vol] 96 mg/dL <199 [facility] Comment on above: The drugs N-Acetylcy steine and Metamizole may falsely depress this assay.Serum Triglycerides Reference Interval Normal <150 mg/dL Borderline high 150 - 199 mg/dL High 200 - 499 mg/dL Very High > or = 500 mg/dL CBCon 09-23-2023 Erythrocyte distribution width (RBC) [Ratio] 13.4 % Normal 11.5-14.5 [facility] ([place]) Comment on above: Performed By: #### A NSG, CBC, ADIFF, ANEU, BMP, ALB, GFR, ABOG #### [address] [address] Hematocrit (Bld) [Volume fraction] 28.6 % Low 42.0-52.0 [facility] ([place]) Comment on above: Performed By: #### A NSG, CBC, ADIFF, ANEU, BMP, ALB, GFR, ABOG #### [address] [address] Hgb 9.7 G/dL Low 14.0-18.0 [facility] ([place]) Comment on above: Performed By: #### A NSG, CBC, ADIFF, ANEU, BMP, ALB, GFR, ABOG #### [address] [address] MCH (RBC) [Entitic mass] 31.6 pg High 27.0-31.2 [facility] ([place]) Comment on above: Performed By: #### A NSG, CBC, ADIFF, ANEU, BMP, ALB, GFR, ABOG #### [address] [address] MCHC 33.8 G/dL Normal 31.8-35.4 [facility] ([place]) Comment on above: Performed By: #### A NSG, CBC, ADIFF, ANEU, BMP, ALB, GFR, ABOG #### [address] [address] MCV (RBC) [Entitic vol] 93.7 fL Normal 80.0-94.0 [facility] ([place]) Comment on above: Performed By: #### A NSG, CBC, ADIFF, ANEU, BMP, ALB, GFR, ABOG #### [address] [address] Platelet 231 10 3/mcL Normal 130-400 [facility] ([place]) Comment on above: Performed By: #### A NSG, CBC, ADIFF, ANEU, BMP, ALB, GFR, ABOG #### [address] [address] Platelet mean volume (Bld) [Entitic vol] 7.9 fL Normal 7.4-10.4 [facility] ([place]) Comment on above: Performed By: #### A NSG, CBC, ADIFF, ANEU, BMP, ALB, GFR, ABOG #### [address] [address] RBC 3.05 10 6/mcL Low 4.04-6.13 [facility] ([place]) Comment on above: Performed By: #### A NSG, CBC, ADIFF, ANEU, BMP, ALB, GFR, ABOG #### [address] [address] WBC 8.8 10 3/mcL Normal 4.6-10.8 [facility] ([place]) Comment on above: Performed By: #### A NSG, CBC, ADIFF, ANEU, BMP, ALB, GFR, ABOG #### [address] [address] CMPon 09-23-2023 Albumin Level 2.1 G/dL Low 3.4-4.8 [facility] ([place]) Comment on above: Performed By: #### Ruth COTTO, BMP #### [address] [address] Albumin/Globulin [Mass ratio] 0.7 {ratio} Low 1.1-2.5 [facility] ([place]) Comment on above: Performed By: #### Ruth COTTO, BMP #### [address] [address] ALP [Catalytic activity/Vol] 81 U/L Normal 40-135 [facility] ([place]) Comment on above: Performed By: #### Ruth COTTO, BMP #### [address] [address] ALT [Catalytic activity/Vol] 33 U/L Normal 16-63 [facility] ([place]) Comment on above: Performed By: #### Ruth COTTO, BMP #### [address] [address] AST [Catalytic activity/Vol] 61 U/L High 10-40 [facility] ([place]) Comment on above: Performed By: #### Ruth COTTO, BMP #### [address] [address] Bili Total 0.8 mg/dL Normal 0.2-1.0 [facility] ([place]) Comment on above: Result Comment: Use of this assay is not recommended for patients undergoing treatment with eltrombopag due to the potential for falsely elevated results. Performed By: #### Ruth FR, BMP #### [address] [address] BUN/Creatinine Ratio 29 ratio High 7-27 [facility] ([place]) Comment on above: Performed By: #### Ruth FR, BMP #### [address] [address] Calcium [Mass/Vol] 8.0 mg/dL Low 8.4-10.2 [facility] ([place]) Comment on above: Performed By: #### G FR, BMP #### [address] [address] Chloride [Moles/Vol] 107 mmol/L Normal 98-107 [facility] ([place]) Comment on above: Performed By: #### G FR, BMP #### [address] [address] CO2 [Moles/Vol] 29 mmol/L Normal 23-31 [facility] ([place]) Comment on above: Performed By: #### G FR, BMP #### [address] [address] Creatinine [Mass/Vol] 1.05 mg/dL Normal 0.70-1.30 [facility] ([place]) Comment on above: Performed By: #### G FR, BMP #### [address] [address] Electrolyte Balance 7.0 mEq/L Normal 4.0-15.0 [facility] ([place]) Comment on above: Performed By: #### G FR, BMP #### [address] [address] Globulin 3.2 G/dL Normal [facility] ([place]) Comment on above: Performed By: #### G FR, BMP #### [address] [address] Glucose [Mass/Vol] 117 mg/dL High 83-110 [facility] ([place]) Comment on above: Performed By: #### G FR, BMP #### [address] [address] Potassium [Moles/Vol] 4.6 mmol/L Normal 3.5-5.1 [facility] ([place]) Comment on above: Performed By: #### G FR, BMP #### [address] [address] Sodium [Moles/Vol] 143 mmol/L Normal 136-145 [facility] ([place]) Comment on above: Performed By: #### G FR, BMP #### Gloria [address] [place], [place] [address] Total Protein 5.3 G/dL Low 6.4-8.2 [facility] ([place]) Comment on above: Performed By: #### G FR, BMP #### Gloria Houston [address] [place], [place] [address] Urea nitrogen [Mass/Vol] 30 mg/dL High 7-18 [facility] ([place]) Comment on above: Performed By: #### G FR, BMP #### Gloria Houston [address] [place], [place] [address] CT ANGIOGRAPHY CHEST W/CONTR Freya 09-23-2023 CT [...] aortic dissection. 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 There is mild adjacent atelectasis in [...] 09/23/2023 7:29:21 AM Ordering Provider: MOODY Zapata [facility] ([place]) DIMERon 09-23-2023 D-Dimer 2557 ng/mL D-DU High 0-230 [facility]) Comment on above: Result Comment: Resu lts [...] ADIFF, ANEU, BMP, ALB, GFR, ABOG #### [place] [address] LABORATORYOrdered By: SYSTEM SYSTEM on 09-23-2023 Troponin I.cardiac DL <= 0.01 ng/mL [Mass/Vol] 6891 ng/L High 0 - 76 ng/L AO ADM SS Comment on above: Interpretive Data: H igh Sensitive Troponin I Reference Ranges: Female: 0-51 ng/L Male: 0-76 ng/L Testing performed on [employer] using a homogeneous sandwich chemiluminescent immunoassay based on [employer] technology. Albumin BCP dye [Mass/Vol] 2.1 G/dL [...] ng/L Male: 0-76 ng/L Testing performed on [employer] using a homogeneous sandwich chemiluminescent immunoassay based on [employer] technology. Urea nitrogen [Mass/Vol] 30 mg/dL High [...] Comment on above: Interpretive Data: [place] [employer] (CHEST, 1992, 102:312S-25S) recommended therapeutic range for oral anticoagulant therapy is: LOW RISK: Prophylaxis of venous thrombosis INR: 2.0-3.0 Treatment of pulmonary embolism 2.0-3.0 Prevention of systemic embolism 2.0-3.0 HIGH RISK: Mechanical prosthetic valves 2.5-3.5 Laboratory - Chemistry and C hemistry - challengeOrdered By: Bret Green on 09-23-2023 Albumin/Globulin [Mass ratio] 0.6 {ratio} 0.9-2.4 [facility] ALP [Catalytic activity/Vol] 71 U/L 45-117 [facility] ALT [Catalytic activity/Vol] 31 U/L 16-61 [facility] Cholesterol in HDL [Mass/Vol] 35 mg/dL >40 [facility] Comment on above: The drugs N-Acetylcy steine and Metamizole may falsely depress this assay. Reference Range HDL <40 mg/dL Low HDL Cholesterol HDL >or= 60 mg/dL High HDL Cholesterol Cholesterol in LDL [Mass/Vol] 39 mg/dL 0-130 [facility] Globulin (S) [Mass/Vol] 3.9 g/dL 2.2-4.2 [facility] No Panel InformationOrdered By: Bret Green on 09-23-2023 VLDL Cholesterol 19 mg/dL 5-40 [facility] PBNPon 09-23-2023 Natriuretic peptide B (Bld) [Mass/Vol] 3539 pg/mL High 0-450 [facility] ([place]) Comment on above: Result Comment: NT-p roBNP results of less than 300 pg/mL effectively rules out acute congestive heart failure with 99% negative predictive value. Performed By: #### A NSG, CBC, ADIFF, ANEU, BMP, ALB, GFR, ABOG #### [address] [address] PROOrdered By: Ora medel on 09-23-2023 PT Coag (PPP) [Time] 12.9 s Normal 9.0-14.2 [facility] Comment on above: Performed By: #### A NSG, CBC, ADIFF, ANEU, BMP, ALB, GFR, ABOG #### [place] [address] PROon 09-23-2023 PT International Ratio 1.1 Normal [facility] ([place]) Comment on above: Result Comment: [employer] (CHEST, 1992, 102:312S-25S) recommended therapeutic range for oral anticoagulant therapy is: LOW RISK: Prophylaxis of venous thrombosis INR: 2.0-3.0 Treatment of pulmonary embolism 2.0-3.0 Prevention of systemic embolism 2.0-3.0 HIGH RISK: Mechanical prosthetic valves 2.5-3.5 Performed By: #### A NSG, CBC, ADIFF, ANEU, BMP, ALB, GFR, ABOG #### [address] [address] Serum or plasma thyroid stim ulating hormone (TSH) measurement (units/volume)Ordered By: Bret Green on 09-23-2023 TSH Qn 2.56 uIU/mL 0.358-3.74 [facility] TROPHSon 09-23-2023 High Sensitivity Troponin I 6891 ng/L High 0-76 [facility] ([place]) Comment on above: Result Comment: High Sensitive Troponin I Reference Ranges: Female: 0-51 ng/L Male: 0-76 ng/L Testing performed on [employer] using a homogeneous sandwich chemiluminescent immunoassay based on [employer] technology. Performed By: #### A NSG, CBC, ADIFF, ANEU, BMP, ALB, GFR, ABOG #### [address] [address] High Sensitivity Troponin I 6365 ng/L High 0-76 [facility] ([place]) Comment on above: Result Comment: High Sensitive Troponin I Reference Ranges: Female: 0-51 ng/L Male: 0-76 ng/L Testing performed on [employer] using a homogeneous sandwich chemiluminescent immunoassay based on [employer] technology. Performed By: #### A NSG, CBC, ADIFF, ANEU, BMP, ALB, GFR, ABOG #### [address] [address] Thin prep Papanicolaou smear with manual screeningOrdered By: Bret Green on 09-23-2023 Thin prep Papanicolaou smear with manual screening 2.2 g/dL 3.2-5.0 [facility] Thin prep Papanicolaou smear with manual screening 58 U/L 15-37 [facility] Whole blood hemoglobin A1c/t otal hemoglobin ratio (mass fraction)Ordered By: Bret Green on 09-23-2023 HbA1c (Bld) [Mass fraction] 5.4 % 3.8-5.6 [facility] Comment on above: Normal < 5.7 % Predi abetic 5.7 - 6.4 % Diabetic >or= 6.5 % Please note range changes. .Auto Diffon 09-20-2023 Basophil, Absolute 0.0 10 3/mcL Normal 0.0-0.2 [facility] ([place]) Comment on above: Performed By: #### G FR, BMP #### [address] [address] Basophils/100 WBC (Bld) 0.4 % Normal 0.0-2.5 [facility] ([place]) Comment on above: Performed By: #### G FR, BMP #### [address] [address] Eosinophil, Absolute 0.2 10 3/mcL Normal 0.0-0.4 [facility] ([place]) Comment on above: Performed By: #### G FR, BMP #### [address] [address] Eosinophils/100 WBC (Bld) 2.1 % Normal 0.0-7.0 [facility] ([place]) Comment on above: Performed By: #### G FR, BMP #### [address] [address] Lymphocyte, Absolute 1.6 10 3/mcL Normal 0.8-3.9 [facility] ([place]) Comment on above: Performed By: #### G FR, BMP #### [address] [address] Lymphocytes/100 WBC (Bld) 14.2 % Normal 10.0-50.0 [facility] ([place]) Comment on above: Performed By: #### G FR, BMP #### [address] [address] Monocyte, Absolute 1.3 10 3/mcL High 0.2-1.0 [facility] ([place]) Comment on above: Performed By: #### G FR, BMP #### [address] [address] Monocytes/100 WBC (Bld) 10.9 % Normal 1.7-13.0 [facility] ([place]) Comment on above: Performed By: #### G FR, BMP #### [address] [address] Neutrophils/100 WBC (Bld) 72.4 % Normal 37.0-80.0 [facility] ([place]) Comment on above: Performed By: #### G FR, BMP #### [address] [address] .GFRon 09-20-2023 GFR 71 ml/min/1.73sqm Normal [facility] ([place]) Comment on above: Result Comment: GFR Population [...] Performed By: #### G FR, BMP #### [address] [address] GFR Non- 59 ml/min/1.73sqm Normal [facility] ([place]) Comment on above: Result Comment: GFR Population [...] Performed By: #### G FR, BMP #### [address] [address] .NEUABSon 09-20-2023 Neutrophil, Absolute 8.3 10 3/mcL High 2.9-6.2 [facility] ([place]) Comment on above: Performed By: #### G FR, BMP #### [address] [address] BMPon 09-20-2023 BUN/Creatinine Ratio 27 ratio Normal 7-27 [facility] ([place]) Comment on above: Performed By: #### G FR, BMP #### [address] [address] Calcium [Mass/Vol] 7.8 mg/dL Low 8.4-10.2 [facility] ([place]) Comment on above: Performed By: #### G FR, BMP #### [address] [address] Chloride [Moles/Vol] 107 mmol/L Normal 98-107 [facility] ([place]) Comment on above: Performed By: #### G FR, BMP #### [address] [address] CO2 [Moles/Vol] 28 mmol/L Normal 23-31 [facility] ([place]) Comment on above: Performed By: #### G FR, BMP #### [address] [address] Creatinine [Mass/Vol] 1.19 mg/dL Normal 0.70-1.30 [facility] ([place]) Comment on above: Performed By: #### G FR, BMP #### [address] [address] Electrolyte Balance 5.0 mEq/L Normal 4.0-15.0 [facility] ([place]) Comment on above: Performed By: #### G FR, BMP #### [address] [address] Glucose [Mass/Vol] 121 mg/dL High 83-110 [facility] ([place]) Comment on above: Performed By: #### G FR, BMP #### [address] [address] Potassium [Moles/Vol] 4.9 mmol/L Normal 3.5-5.1 [facility] ([place]) Comment on above: Performed By: #### G FR, BMP #### [address] [address] Sodium [Moles/Vol] 140 mmol/L Normal 136-145 [facility] ([place]) Comment on above: Performed By: #### G FR, BMP #### [address] [address] Urea nitrogen [Mass/Vol] 32 mg/dL High 7-18 [facility] ([place]) Comment on above: Performed By: #### G , BMP #### [address] [address] CBCon 09-20-2023 Erythrocyte distribution width (RBC) [Ratio] 13.2 % Normal 11.5-14.5 [facility] ([place]) Comment on above: Performed By: #### G , BMP #### [address] [address] Hematocrit (Bld) [Volume fraction] 29.0 % Low 42.0-52.0 [facility] ([place]) Comment on above: Performed By: #### G , BMP #### [address] [address] Hgb 9.9 G/dL Low 14.0-18.0 [facility] ([place]) Comment on above: Performed By: #### G FR, BMP #### [address] [address] MCH (RBC) [Entitic mass] 31.9 pg High 27.0-31.2 [facility] ([place]) Comment on above: Performed By: #### G FR, BMP #### [address] [address] MCHC 34.0 G/dL Normal 31.8-35.4 [facility] ([place]) Comment on above: Performed By: #### G FR, BMP #### [address] [address] MCV (RBC) [Entitic vol] 93.7 fL Normal 80.0-94.0 [facility] ([place]) Comment on above: Performed By: #### G FR, BMP #### [address] [address] Platelet 168 10 3/mcL Normal 130-400 [facility] ([place]) Comment on above: Performed By: #### G FR, BMP #### [place] [address] [place], [place] [address] Platelet mean volume (Bld) [Entitic vol] 8.8 fL Normal 7.4-10.4 [facility] ([place]) Comment on above: Performed By: #### G FR, BMP #### [address] [address] RBC 3.09 10 6/mcL Low 4.04-6.13 [facility] ([place]) Comment on above: Performed By: #### G FR, BMP #### [address] [address] WBC 11.5 10 3/mcL High 4.6-10.8 [facility] ([place]) Comment on above: Performed By: #### G , BMP #### [address] [address] LABORATORYOrdered By: SYSTEM SYSTEM on 09-20-2023 Basophil, [...] 09-20-2023 Magnesium [Mass/Vol] 2.2 mg/dL Normal 1.8-2.4 [facility] ([place]) Comment on above: Performed By: #### G FR, BMP #### [address] [address] .Auto Diffon 09-19-2023 Basophil, Absolute 0.0 10 3/mcL Normal 0.0-0.2 [facility] ([place]) Comment on above: Performed By: #### A NSG, CBC, ADIFF, ANEU, BMP, ALB, GFR, ABOG #### [address] [address] Basophils/100 WBC (Bld) 0.3 % Normal 0.0-2.5 [facility] ([place]) Comment on above: Performed By: #### A NSG, CBC, ADIFF, ANEU, BMP, ALB, GFR, ABOG #### [address] [address] Eosinophil, Absolute 0.0 10 3/mcL Normal 0.0-0.4 [facility] ([place]) Comment on above: Performed By: #### A NSG, CBC, ADIFF, ANEU, BMP, ALB, GFR, ABOG #### [address] [address] Eosinophils/100 WBC (Bld) 0.2 % Normal 0.0-7.0 [facility] ([place]) Comment on above: Performed By: #### A NSG, CBC, ADIFF, ANEU, BMP, ALB, GFR, ABOG #### [address] [address] Lymphocyte, Absolute 1.3 10 3/mcL Normal 0.8-3.9 [facility] ([place]) Comment on above: Performed By: #### A NSG, CBC, ADIFF, ANEU, BMP, ALB, GFR, ABOG #### [address] [address] Lymphocytes/100 WBC (Bld) 13.9 % Normal 10.0-50.0 [facility] ([place]) Comment on above: Performed By: #### A NSG, CBC, ADIFF, ANEU, BMP, ALB, GFR, ABOG #### [address] [address] Monocyte, Absolute 1.3 10 3/mcL High 0.2-1.0 [facility] ([place]) Comment on above: Performed By: #### A NSG, CBC, ADIFF, ANEU, BMP, ALB, GFR, ABOG #### [address] [address] Monocytes/100 WBC (Bld) 13.6 % High 1.7-13.0 [facility] ([place]) Comment on above: Performed By: #### A NSG, CBC, ADIFF, ANEU, BMP, ALB, GFR, ABOG #### [address] [address] Neutrophils/100 WBC (Bld) 72.0 % Normal 37.0-80.0 [facility] ([place]) Comment on above: Performed By: #### A NSG, CBC, ADIFF, ANEU, BMP, ALB, GFR, ABOG #### [address] [address] .GFRon 09-19-2023 GFR 64 ml/min/1.73sqm Normal [facility] ([place]) Comment on above: Result Comment: GFR Population [...] Performed By: #### G FR, BMP #### [address] [address] GFR Non- 53 ml/min/1.73sqm Normal [facility] ([place]) Comment on above: Result Comment: GFR Population [...] Performed By: #### G FR, BMP #### [address] [address] GFR Non- 53 ml/min/1.73sqm Normal [facility] ([place]) Comment on above: Result Comment: GFR Population [...] ADIFF, ANEU, BMP, ALB, GFR, ABOG #### [address] [address] GFR 64 ml/min/1.73sqm Normal [facility] ([place]) Comment on above: Result Comment: GFR Population [...] ADIFF, ANEU, BMP, ALB, GFR, ABOG #### [address] [address] .NEUABSon 09-19-2023 Neutrophil, Absolute 6.7 10 3/mcL High 2.9-6.2 [facility] ([place]) Comment on above: Performed By: #### A NSG, CBC, ADIFF, ANEU, BMP, ALB, GFR, ABOG #### [address] [address] BMPon 09-19-2023 BUN/Creatinine Ratio 24 ratio Normal 7-27 [facility] ([place]) Comment on above: Performed By: #### G FR, BMP #### [address] [address] Calcium [Mass/Vol] 7.6 mg/dL Low 8.4-10.2 [facility] ([place]) Comment on above: Performed By: #### Ruth FR, BMP #### [address] [address] Chloride [Moles/Vol] 105 mmol/L Normal 98-107 [facility] ([place]) Comment on above: Performed By: #### G FR, BMP #### [address] [address] CO2 [Moles/Vol] 25 mmol/L Normal 23-31 [facility] ([place]) Comment on above: Performed By: #### G FR, BMP #### [address] [address] Creatinine [Mass/Vol] 1.31 mg/dL High 0.70-1.30 [facility] ([place]) Comment on above: Performed By: #### G FR, BMP #### [address] [address] Electrolyte Balance 8.0 mEq/L Normal 4.0-15.0 [facility] ([place]) Comment on above: Performed By: #### G FR, BMP #### [address] [address] Glucose [Mass/Vol] 119 mg/dL High 83-110 [facility] ([place]) Comment on above: Performed By: #### G FR, BMP #### [address] [address] Potassium [Moles/Vol] 4.3 mmol/L Normal 3.5-5.1 [facility] ([place]) Comment on above: Performed By: #### G FR, BMP #### [address] [address] Sodium [Moles/Vol] 138 mmol/L Normal 136-145 [facility] ([place]) Comment on above: Performed By: #### G FR, BMP #### [address] [address] Urea nitrogen [Mass/Vol] 31 mg/dL High 7-18 [facility] ([place]) Comment on above: Performed By: #### G FR, BMP #### [address] [address] BUN/Creatinine Ratio 21 ratio Normal 7-27 [facility] ([place]) Comment on above: Performed By: #### A NSG, CBC, ADIFF, ANEU, BMP, ALB, GFR, ABOG #### [address] [address] Calcium [Mass/Vol] 8.1 mg/dL Low 8.4-10.2 [facility] ([place]) Comment on above: Performed By: #### A NSG, CBC, ADIFF, ANEU, BMP, ALB, GFR, ABOG #### [address] [address] Chloride [Moles/Vol] 106 mmol/L Normal 98-107 [facility] ([place]) Comment on above: Performed By: #### A NSG, CBC, ADIFF, ANEU, BMP, ALB, GFR, ABOG #### [address] [address] CO2 [Moles/Vol] 26 mmol/L Normal 23-31 [facility] ([place]) Comment on above: Performed By: #### A NSG, CBC, ADIFF, ANEU, BMP, ALB, GFR, ABOG #### [place] [id number] Creatinine [Mass/Vol] 1.31 mg/dL High 0.70-1.30 [facility] ([place]) Comment on above: Performed By: #### A NSG, CBC, ADIFF, ANEU, BMP, ALB, GFR, ABOG #### [place] [address] Electrolyte Balance 4.0 mEq/L Normal 4.0-15.0 [facility] ([place]) Comment on above: Performed By: #### A NSG, CBC, ADIFF, ANEU, BMP, ALB, GFR, ABOG #### [place] [address] Glucose [Mass/Vol] 129 mg/dL High 83-110 [facility] ([place]) Comment on above: Performed By: #### A NSG, CBC, ADIFF, ANEU, BMP, ALB, GFR, ABOG #### [place] [address] Potassium [Moles/Vol] 4.9 mmol/L Normal 3.5-5.1 [facility] ([place]) Comment on above: Performed By: #### A NSG, CBC, ADIFF, ANEU, BMP, ALB, GFR, ABOG #### [place] [address] Sodium [Moles/Vol] 136 mmol/L Normal 136-145 [facility] ([place]) Comment on above: Performed By: #### A NSG, CBC, ADIFF, ANEU, BMP, ALB, GFR, ABOG #### [place] [id number] Urea nitrogen [Mass/Vol] 28 mg/dL High 7-18 [facility] ([place]) Comment on above: Performed By: #### A NSG, CBC, ADIFF, ANEU, BMP, ALB, GFR, ABOG #### [address] [address] CBCon 09-19-2023 Erythrocyte distribution width (RBC) [Ratio] 12.9 % Normal 11.5-14.5 [facility] ([place]) Comment on above: Performed By: #### A NSG, CBC, ADIFF, ANEU, BMP, ALB, GFR, ABOG #### [address] [address] Hematocrit (Bld) [Volume fraction] 32.2 % Low 42.0-52.0 [facility] ([place]) Comment on above: Performed By: #### A NSG, CBC, ADIFF, ANEU, BMP, ALB, GFR, ABOG #### [place] [id number] Hgb 11.0 G/dL Low 14.0-18.0 [facility] ([place]) Comment on above: Performed By: #### A NSG, CBC, ADIFF, ANEU, BMP, ALB, GFR, ABOG #### [address] [address] MCH (RBC) [Entitic mass] 31.9 pg High 27.0-31.2 [facility] ([place]) Comment on above: Performed By: #### A NSG, CBC, ADIFF, ANEU, BMP, ALB, GFR, ABOG #### [place] [id number] MCHC 34.2 G/dL Normal 31.8-35.4 [facility] ([place]) Comment on above: Performed By: #### A NSG, CBC, ADIFF, ANEU, BMP, ALB, GFR, ABOG #### [address] [address] MCV (RBC) [Entitic vol] 93.4 fL Normal 80.0-94.0 [facility] ([place]) Comment on above: Performed By: #### A NSG, CBC, ADIFF, ANEU, BMP, ALB, GFR, ABOG #### [address] [address] Platelet 192 10 3/mcL Normal 130-400 [facility] ([place]) Comment on above: Performed By: #### A NSG, CBC, ADIFF, ANEU, BMP, ALB, GFR, ABOG #### [address] [address] Platelet mean volume (Bld) [Entitic vol] 8.4 fL Normal 7.4-10.4 [facility] ([place]) Comment on above: Performed By: #### A NSG, CBC, ADIFF, ANEU, BMP, ALB, GFR, ABOG #### [address] [address] RBC 3.44 10 6/mcL Low 4.04-6.13 [facility] ([place]) Comment on above: Performed By: #### A NSG, CBC, ADIFF, ANEU, BMP, ALB, GFR, ABOG #### [address] [address] WBC 9.4 10 3/mcL Normal 4.6-10.8 [facility]) Comment on above: Performed By: #### A NSG, CBC, ADIFF, ANEU, BMP, ALB, GFR, ABOG #### [address] [address] LABORATORYOrdered By: SYSTEM SYSTEM on 09-19-2023 Calcium [...] ng/L Male: 0-76 ng/L Testing performed on [employer] using a homogeneous sandwich chemiluminescent immunoassay based on [employer] technology. [facility] 09-19-2023 High Sensitivity Troponin I 62 ng/L Normal 0-76 [facility] ([place]) Comment on above: Result Comment: High Sensitive Troponin I Reference Ranges: Female: 0-51 ng/L Male: 0-76 ng/L Testing performed on [employer] using a homogeneous sandwich chemiluminescent immunoassay based on [employer] technology. Performed By: #### A NSG, CBC, ADIFF, ANEU, BMP, ALB, GFR, ABOG #### [address] [address] .GFRon 09-18-2023 GFR 74 ml/min/1.73sqm Normal [facility] ([place]) Comment on above: Result Comment: GFR Population [...] ADIFF, ANEU, BMP, ALB, GFR, ABOG #### [address] [address] GFR Non- 61 ml/min/1.73sqm Normal [facility] ([place]) Comment on above: Result Comment: GFR Population [...] ADIFF, ANEU, BMP, ALB, GFR, ABOG #### [address] [address] ABO/Rh (Gel)on 09-18-2023 ABO/Rh Interp Positive Invalid Interpretation Code [facility] ([place]) Comment on above: Performed By: #### A NSG, CBC, ADIFF, ANEU, BMP, ALB, GFR, ABOG #### [address] [address] ABS (Gel)on 09-18-2023 ABSC Interp (Gel) Negative Normal [facility] ([place]) Comment on above: Performed By: #### A NSG, CBC, ADIFF, ANEU, BMP, ALB, GFR, ABOG #### [address] [address] CMPon 09-18-2023 Albumin Level 2.9 G/dL Low 3.4-4.8 [facility] ([place]) Comment on above: Performed By: #### A NSG, CBC, ADIFF, ANEU, BMP, ALB, GFR, ABOG #### [place] [address] Albumin/Globulin [Mass ratio] 1.1 {ratio} Normal 1.1-2.5 [facility] ([place]) Comment on above: Performed By: #### A NSG, CBC, ADIFF, ANEU, BMP, ALB, GFR, ABOG #### [place] [address] ALP [Catalytic activity/Vol] 107 U/L Normal 40-135 [facility] ([place]) Comment on above: Performed By: #### A NSG, CBC, ADIFF, ANEU, BMP, ALB, GFR, ABOG #### [place] [address] ALT [Catalytic activity/Vol] 18 U/L Normal 16-63 [facility] ([place]) Comment on above: Performed By: #### A NSG, CBC, ADIFF, ANEU, BMP, ALB, GFR, ABOG #### [place] [address] AST [Catalytic activity/Vol] 20 U/L Normal 10-40 [facility] ([place]) Comment on above: Performed By: #### A NSG, CBC, ADIFF, ANEU, BMP, ALB, GFR, ABOG #### [place] [address] Bili Total 0.5 mg/dL Normal 0.2-1.0 [facility] ([place]) Comment on above: Result Comment: Use of this assay is not recommended for patients undergoing treatment with eltrombopag due to the potential for falsely elevated results. Performed By: #### A NSG, CBC, ADIFF, ANEU, BMP, ALB, GFR, ABOG #### [place] [address] BUN/Creatinine Ratio 19 ratio Normal 7-27 [facility] ([place]) Comment on above: Performed By: #### A NSG, CBC, ADIFF, ANEU, BMP, ALB, GFR, ABOG #### [place] [phone] Calcium [Mass/Vol] 8.1 mg/dL Low 8.4-10.2 [facility] ([place]) Comment on above: Performed By: #### A NSG, CBC, ADIFF, ANEU, BMP, ALB, GFR, ABOG #### [address] [address] Chloride [Moles/Vol] 105 mmol/L Normal 98-107 [facility] ([place]) Comment on above: Performed By: #### A NSG, CBC, ADIFF, ANEU, BMP, ALB, GFR, ABOG #### [address] [address] CO2 [Moles/Vol] 28 mmol/L Normal 23-31 [facility] ([place]) Comment on above: Performed By: #### A NSG, CBC, ADIFF, ANEU, BMP, ALB, GFR, ABOG #### [place] [address] Creatinine [Mass/Vol] 1.15 mg/dL Normal 0.70-1.30 [facility] ([place]) Comment on above: Performed By: #### A NSG, CBC, ADIFF, ANEU, BMP, ALB, GFR, ABOG #### [address] [address] Electrolyte Balance 4.0 mEq/L Normal 4.0-15.0 [facility]) Comment on above: Performed By: #### A NSG, CBC, ADIFF, ANEU, BMP, ALB, GFR, ABOG #### [address] [address] Globulin 2.7 G/dL Normal [facility] ([place]) Comment on above: Performed By: #### A NSG, CBC, ADIFF, ANEU, BMP, ALB, GFR, ABOG #### [address] [address] Glucose [Mass/Vol] 175 mg/dL High 83-110 [facility] ([place]) Comment on above: Performed By: #### A NSG, CBC, ADIFF, ANEU, BMP, ALB, GFR, ABOG #### [address] [address] Potassium [Moles/Vol] 4.1 mmol/L Normal 3.5-5.1 [facility] ([place]) Comment on above: Performed By: #### A NSG, CBC, ADIFF, ANEU, BMP, ALB, GFR, ABOG #### [address] [address] Sodium [Moles/Vol] 137 mmol/L Normal 136-145 [facility] ([place]) Comment on above: Performed By: #### A NSG, CBC, ADIFF, ANEU, BMP, ALB, GFR, ABOG #### [address] [address] Total Protein 5.6 G/dL Low 6.4-8.2 [facility] ([place]) Comment on above: Performed By: #### A NSG, CBC, ADIFF, ANEU, BMP, ALB, GFR, ABOG #### [address] [address] Urea nitrogen [Mass/Vol] 22 mg/dL High 7-18 [facility] ([place]) Comment on above: Performed By: #### A NSG, CBC, ADIFF, ANEU, BMP, ALB, GFR, ABOG #### [address] [address] LABORATORYOrdered By: SYSTEM SYSTEM on 09-18-2023 Albumin [...] ng/L Male: 0-76 ng/L Testing performed on [employer] using a homogeneous sandwich chemiluminescent immunoassay based on [employer] technology. LABORATORYOrdered By: Zena Narayan on 09-18-2023 ABO and Rh group Nom (Bld) Blood group O Rh(D) positive Invalid Interpretation Code AO BB Auto SS Blood group antibody screen Ql Negative ABSC (09/18/23 9:07 AM) Normal AO BB Auto SS MGon 09-18-2023 Magnesium [Mass/Vol] 1.8 mg/dL Normal 1.8-2.4 [facility] ([place]) Comment on above: Performed By: #### A NSG, CBC, ADIFF, ANEU, BMP, ALB, GFR, ABOG #### [address] [address] PBNPon 09-18-2023 Natriuretic peptide B (Bld) [Mass/Vol] 1124 pg/mL High 0-450 [facility] ([place]) Comment on above: Result Comment: NT-p roBNP results of less than 300 pg/mL effectively rules out acute congestive heart failure with 99% negative predictive value. Performed By: #### A NSG, CBC, ADIFF, ANEU, BMP, ALB, GFR, ABOG #### [facility] [address] [place], [place] [address] TROPHSon 09-18-2023 High Sensitivity Troponin I 61 ng/L Normal 0-76 [facility] ([place]) Comment on above: Result Comment: High Sensitive Troponin I Reference Ranges: Female: 0-51 ng/L Male: 0-76 ng/L Testing performed on [employer] using a homogeneous sandwich chemiluminescent immunoassay based on [employer] technology. Performed By: #### A NSG, CBC, ADIFF, ANEU, BMP, ALB, GFR, ABOG #### [facility] [address] [place], [place] [address] XR FLUORO 1-2 HRS TECH TIMEo n 09-18-2023 XR FLUORO 1-2 HRS TECH TIME ORIGINAL Images acquired, not reported on this accession number. Normal [facility] ([place]) XR HIP LEFT W/PELVIS 4 VIEWS on [...] 1:36:27 PM Ordering Provider: IWONA SCHREIBER Normal [facility] ([place]) ALBon 08-10-2023 Albumin Level 3.5 G/dL Normal 3.4-4.8 [facility] ([place]) Comment on above: Performed By: #### A NSG, CBC, ADIFF, ANEU, BMP, ALB, GFR, ABOG #### [address] [address] .Auto Diffon 07-23-2023 Basophil, Absolute 0.0 10 3/mcL Normal 0.0-0.2 [facility] ([place]) Comment on above: Performed By: #### A NSG, CBC, ADIFF, ANEU, BMP, ALB, GFR, ABOG #### [address] [address] Basophils/100 WBC (Bld) 0.6 % Normal 0.0-2.5 [facility] ([place]) Comment on above: Performed By: #### A NSG, CBC, ADIFF, ANEU, BMP, ALB, GFR, ABOG #### [address] [address] Eosinophil, Absolute 0.2 10 3/mcL Normal 0.0-0.4 [facility] ([place]) Comment on above: Performed By: #### A NSG, CBC, ADIFF, ANEU, BMP, ALB, GFR, ABOG #### [address] [address] Eosinophils/100 WBC (Bld) 2.4 % Normal 0.0-7.0 [facility] ([place]) Comment on above: Performed By: #### A NSG, CBC, ADIFF, ANEU, BMP, ALB, GFR, ABOG #### [address] [address] Lymphocyte, Absolute 1.3 10 3/mcL Normal 0.8-3.9 [facility] ([place]) Comment on above: Performed By: #### A NSG, CBC, ADIFF, ANEU, BMP, ALB, GFR, ABOG #### [address] [address] Lymphocytes/100 WBC (Bld) 19.8 % Normal 10.0-50.0 [facility] ([place]) Comment on above: Performed By: #### A NSG, CBC, ADIFF, ANEU, BMP, ALB, GFR, ABOG #### [address] [address] Monocyte, Absolute 0.8 10 3/mcL Normal 0.2-1.0 [facility] ([place]) Comment on above: Performed By: #### A NSG, CBC, ADIFF, ANEU, BMP, ALB, GFR, ABOG #### [address] [address] Monocytes/100 WBC (Bld) 12.5 % Normal 1.7-13.0 [facility] ([place]) Comment on above: Performed By: #### A NSG, CBC, ADIFF, ANEU, BMP, ALB, GFR, ABOG #### [address] [address] Neutrophils/100 WBC (Bld) 64.7 % Normal 37.0-80.0 [facility] ([place]) Comment on above: Performed By: #### A NSG, CBC, ADIFF, ANEU, BMP, ALB, GFR, ABOG #### [address] [address] .GFRon 07-23-2023 GFR 105 ml/min/1.73sqm Normal [facility] ([place]) Comment on above: Result Comment: GFR Population [...] ADIFF, ANEU, BMP, ALB, GFR, ABOG #### [address] [address] GFR Non- 87 ml/min/1.73sqm Normal [facility] ([place]) Comment on above: Result Comment: GFR Population [...] ADIFF, ANEU, BMP, ALB, GFR, ABOG #### [address] [address] .NEUABSon 07-23-2023 Neutrophil, Absolute 4.2 10 3/mcL Normal 2.9-6.2 [facility] ([place]) Comment on above: Performed By: #### A NSG, CBC, ADIFF, ANEU, BMP, ALB, GFR, ABOG #### [address] [address] ALBon 07-23-2023 Albumin Level 3.2 G/dL Low 3.4-4.8 [facility] ([place]) Comment on above: Performed By: #### A NSG, CBC, ADIFF, ANEU, BMP, ALB, GFR, ABOG #### [address] [address] BMPon 07-23-2023 BUN/Creatinine Ratio 25 ratio Normal 7-27 [facility] ([place]) Comment on above: Performed By: #### A NSG, CBC, ADIFF, ANEU, BMP, ALB, GFR, ABOG #### [address] [address] Calcium [Mass/Vol] 8.8 mg/dL Normal 8.4-10.2 [facility] ([place]) Comment on above: Performed By: #### A NSG, CBC, ADIFF, ANEU, BMP, ALB, GFR, ABOG #### [address] [address] Chloride [Moles/Vol] 105 mmol/L Normal 98-107 [facility] ([place]) Comment on above: Performed By: #### A NSG, CBC, ADIFF, ANEU, BMP, ALB, GFR, ABOG #### [address] [address] CO2 [Moles/Vol] 28 mmol/L Normal 23-31 [facility] ([place]) Comment on above: Performed By: #### A NSG, CBC, ADIFF, ANEU, BMP, ALB, GFR, ABOG #### [address] [address] Creatinine [Mass/Vol] 0.85 mg/dL Normal 0.70-1.30 [facility] ([place]) Comment on above: Performed By: #### A NSG, CBC, ADIFF, ANEU, BMP, ALB, GFR, ABOG #### [address] [address] Electrolyte Balance 8.0 mEq/L Normal 4.0-15.0 [facility] ([place]) Comment on above: Performed By: #### A NSG, CBC, ADIFF, ANEU, BMP, ALB, GFR, ABOG #### [address] [address] Glucose [Mass/Vol] 110 mg/dL Normal 83-110 [facility] ([place]) Comment on above: Performed By: #### A NSG, CBC, ADIFF, ANEU, BMP, ALB, GFR, ABOG #### [address] [address] Potassium [Moles/Vol] 4.6 mmol/L Normal 3.5-5.1 [facility] ([place]) Comment on above: Performed By: #### A NSG, CBC, ADIFF, ANEU, BMP, ALB, GFR, ABOG #### [address] [address] Sodium [Moles/Vol] 141 mmol/L Normal 136-145 [facility] ([place]) Comment on above: Performed By: #### A NSG, CBC, ADIFF, ANEU, BMP, ALB, GFR, ABOG #### [address] [address] Urea nitrogen [Mass/Vol] 21 mg/dL High 7-18 [facility] ([place]) Comment on above: Performed By: #### A NSG, CBC, ADIFF, ANEU, BMP, ALB, GFR, ABOG #### [address] [address] CBCon 07-23-2023 Erythrocyte distribution width (RBC) [Ratio] 14.3 % Normal 11.5-14.5 [facility] ([place]) Comment on above: Order Comment: Pre-A dmission Testing Performed By: #### A NSG, CBC, ADIFF, ANEU, BMP, ALB, GFR, ABOG #### [address] [address] Hematocrit (Bld) [Volume fraction] 38.7 % Low 42.0-52.0 [facility] ([place]) Comment on above: Order Comment: Pre-A dmission Testing Performed By: #### A NSG, CBC, ADIFF, ANEU, BMP, ALB, GFR, ABOG #### [address] [address] Hgb 13.0 G/dL Low 14.0-18.0 [facility] ([place]) Comment on above: Order Comment: Pre-A dmission Testing Performed By: #### A NSG, CBC, ADIFF, ANEU, BMP, ALB, GFR, ABOG #### [address] [address] MCH (RBC) [Entitic mass] 31.5 pg High 27.0-31.2 [facility] ([place]) Comment on above: Order Comment: Pre-A dmission Testing Performed By: #### A NSG, CBC, ADIFF, ANEU, BMP, ALB, GFR, ABOG #### [address] [address] MCHC 33.6 G/dL Normal 31.8-35.4 [facility] ([place]) Comment on above: Order Comment: Pre-A dmission Testing Performed By: #### A NSG, CBC, ADIFF, ANEU, BMP, ALB, GFR, ABOG #### [address] [address] MCV (RBC) [Entitic vol] 93.8 fL Normal 80.0-94.0 [facility] ([place]) Comment on above: Order Comment: Pre-A dmission Testing Performed By: #### A NSG, CBC, ADIFF, ANEU, BMP, ALB, GFR, ABOG #### [address] [address] Platelet 192 10 3/mcL Normal 130-400 [facility] ([place]) Comment on above: Order Comment: Pre-A dmission Testing Performed By: #### A NSG, CBC, ADIFF, ANEU, BMP, ALB, GFR, ABOG #### [address] [address] Platelet mean volume (Bld) [Entitic vol] 9.1 fL Normal 7.4-10.4 [facility] ([place]) Comment on above: Order Comment: Pre-A dmission Testing Performed By: #### A NSG, CBC, ADIFF, ANEU, BMP, ALB, GFR, ABOG #### [address] [address] RBC 4.12 10 6/mcL Normal 4.04-6.13 [facility] ([place]) Comment on above: Order Comment: Pre-A dmission Testing Performed By: #### A NSG, CBC, ADIFF, ANEU, BMP, ALB, GFR, ABOG #### [address] [address] WBC 6.5 10 3/mcL Normal 4.6-10.8 [facility] ([place]) Comment on above: Order Comment: Pre-A dmission Testing Performed By: #### A NSG, CBC, ADIFF, ANEU, BMP, ALB, GFR, ABOG #### [place] [address] [place], [place] [address] Gel ABOon 07-23-2023 ABO/Rh Interp Positive Invalid Interpretation Code [facility] ([place]) Comment on above: Order Comment: SURG CALEB 08/14 -AC Performed By: #### A NSG, CBC, ADIFF, ANEU, BMP, ALB, GFR, ABOG #### [place] [address] [place], [place] [address] Gel ABSon 07-23-2023 Antibody Screen Gel Negative Normal [facility] ([place]) Comment on above: Order Comment: SURG CALEB 08/14 -AC Performed By: #### A NSG, CBC, ADIFF, ANEU, BMP, ALB, GFR, ABOG #### [address] [address] LABORATORYOrdered By: Anastasia Duke on 07-23-2023 ABO/Rh [...] Comment on above: Result Comment: Note s [id number] MRSA PCR Int MRSA DNA not detecte [...] MRSA (PCR) Not detected Normal Not Detected [facility] ([place]) Comment on above: Result Comment: [place] [id number] Performed By: #### A NSG, CBC, ADIFF, ANEU, BMP, ALB, GFR, ABOG #### [place] [id number] MRSA PCR Int Normal [facility] ([place]) Comment on above: Result Comment: MRSA DNA [...] ADIFF, ANEU, BMP, ALB, GFR, ABOG #### [place] [id number] IMIPENEM:SUSC:PT:ISOLATE:ORD QN:MICon 05-31-2023 Imipenem DANNIELLE [Susc] >100,000 cfu/ml Esch erichia coli [facility] Work Phone: Imipenem DANNIELLE [Susc]on 2022 Escherichia coli Escherichia coli [facility] Work Phone: Absolute lymphocyte countOrd ered By: Petra Villegas on 05-14-2023 Lymphocytes Auto (Unsp spec) [#/Vol] 1.28 10*3/uL 0.83-4.51 [facility] Basophil percentageOrdered B y: Petra Villegas on 05-14-2023 Basophils/100 WBC (Bld) 0.6 % 0-1 [facility] Chloride [Moles/Vol] 108 mmol/L 98-107 [facility] Eosinophils/100 WBC (Bld) 0.2 % 0-5 [facility] Glucose [Mass/Vol] 134 mg/dL 74-106 [facility] Comment on above: Fasting Glucose resu lt greater than or equal to 126 mg/dL suggests DIABETES MELLITUS per A.D.A. criteria. Neutrophils (Bld) [#/Vol] 10.8 10*3/uL 2.0-7.7 [facility] Neutrophils/100 WBC (Bld) 83.4 % 47-70 [facility] Potassium [Moles/Vol] 4.6 mmol/L 3.5-5.1 [facility] Sodium [Moles/Vol] 141 mmol/L 136-145 [facility] WBC (Bld) [#/Vol] 12.9 10*3/uL 4.4-11.0 [facility] Blood erythrocytes count (nu mber/volume)Ordered By: Petra Villegas on 05-14-2023 RBC (Bld) [#/Vol] 4.29 10*6/uL 4.6-6.2 [facility] Blood hemoglobin measurement (mass/volume)Ordered By: Petra Villegas on 05-14-2023 Hemoglobin (Bld) [Mass/Vol] 13.0 g/dL 13.0-16.5 [facility] Blood lymphocytes/100 leukoc ytesOrdered By: Petra Villegas on 05-14-2023 Lymphocytes/100 WBC (Bld) 9.9 % 19-41 [facility] Blood monocytes/100 leukocyt esOrdered By: Petra Villegas on 05-14-2023 Monocytes/100 WBC (Bld) 4.3 % 0-10 [facility] Blood platelet mean volumeOr dered By: Petra Villegas on 05-14-2023 Platelet mean volume (Bld) [Entitic vol] 9.7 fL 6.2-12.0 [facility] Determination of erythrocyte mean corpuscular volume (MCV)Ordered By: Petra Villegas on 05-14-2023 MCV (RBC) [Entitic vol] 99.3 fL 80-94 [facility] Hematocrit Auto (Bld) [Volum e fraction]Ordered By: Petra Villegas on 05-14-2023 Hematocrit (Bld) [Volume fraction] 42.6 % 40-54 [facility] Laboratory - Chemistry and C hemistry - challengeOrdered By: Petra Villegas on 05-14-2023 CO2 [Moles/Vol] 25.0 mmol/L 21.0-32.0 [facility] Natriuretic peptide B (Bld) [Mass/Vol] 374.3 pg/mL 0-100 [facility] Urea nitrogen/Creatinine [Mass ratio] 25.2 mg/mg 10-20 [facility] Laboratory - Hematology and Cell countsOrdered By: Petra Villegas on 05-14-2023 Erythrocyte distribution width (RBC) [Entitic vol] 48.9 fL 35.1-43.9 [facility] Erythrocyte distribution width (RBC) [Ratio] 13.6 % 11.6-14.6 [facility] Immature granulocytes/100 WBC (Bld) 1.600 % 0.0-0.9 [facility] Comment on above: IG% - Immature Granu locytes (promyelocytes, myelocytes and metamyelocytes) > 1% indicates that a LEFT SHIFT is Present. MCH (RBC) [Entitic mass] 30.3 pg 27.0-32.0 [facility] Nucleated RBC/100 WBC (Bld) [Ratio] 0 % 0-5 [facility] MCHC Auto (RBC) [Mass/Vol]Or dered By: Petra Villegas on 05-14-2023 MCHC (RBC) [Mass/Vol] 30.5 g/dL 32-36 [facility] No Panel InformationOrdered By: Petra Villegas on 05-14-2023 Estimated GFR (MDRD) Amer 86 mL/min >60 [facility] Comment on above: GFR Calc Estimated GFR (MDRD) Non-Af Amer 71 mL/min >60 [facility] Comment on above: Non- GFR Calc Platelets bldOrdered By: Mil Villegas on 05-14-2023 Platelets (Bld) [#/Vol] 351 10*3/uL 150-450 [facility] Serum or plasma calcium kian urement (mass/volume)Ordered By: Petra Villegas on 05-14-2023 Calcium [Mass/Vol] 8.6 mg/dL 8.5-10.1 [facility] Serum or plasma creatinine m easurement (mass/volume)Ordered By: Petra Villegas on 05-14-2023 Creatinine [Mass/Vol] 1.07 mg/dL 0.70-1.30 [facility] Comment on above: The validity of the calculated GFR & GFRAA in patients over 70 years has not been determined. Clinical correlation is essential. Serum or plasma urea nitroge n measurement (mass/volume)Ordered By: Petra Villegas on 05-14-2023 Urea nitrogen [Mass/Vol] 27 mg/dL 7-18 [facility] Thin prep Papanicolaou smear with manual screeningOrdered By: Petra Villegas on 05-14-2023 Thin prep Papanicolaou smear with manual screening 8 5-15 [facility] Glucose Glucometer (BldC) [M ass/Vol]Ordered By: Sean Ayala on 04-29-2023 Glucose [Mass/Vol] 137 mg/dL 74-106 [facility] Comment on above: MANAGEMENT OF PATIEN T CARE PER NURSING PROTOCOL Absolute lymphocyte countOrd ered By: Sean Ayala on 04-28-2023 Lymphocytes Auto (Unsp spec) [#/Vol] 1.39 10*3/uL 0.83-4.51 [facility] Basophil percentageOrdered B y: Sean Ayala on 04-28-2023 Basophils/100 WBC (Bld) 0.7 % 0-1 [facility] Chloride [Moles/Vol] 111 mmol/L 98-107 [facility] Cholesterol [Mass/Vol] 121 mg/dL <200 [facility] Comment on above: <200 mg/dL Desirable 200-240 mg/dL Borderline >240 mg/dL High Risk Eosinophils/100 WBC (Bld) 2.2 % 0-5 [facility] Glucose [Mass/Vol] 104 mg/dL 74-106 [facility] Comment on above: Fasting Glucose resu lt from 100 to 125 mg/dL suggests IMPAIRED HOMEOSTASIS per A.D.A. criteria. Neutrophils (Bld) [#/Vol] 5.6 10*3/uL 2.0-7.7 [facility] Neutrophils/100 WBC (Bld) 70.1 % 47-70 [facility] Potassium [Moles/Vol] 4.1 mmol/L 3.5-5.1 [facility] Sodium [Moles/Vol] 141 mmol/L 136-145 [facility] Triglyceride [Mass/Vol] 98 mg/dL <199 [facility] Comment on above: The drugs N-Acetylcy steine and Metamizole may falsely depress this assay.Serum Triglycerides Reference Interval Normal <150 mg/dL Borderline high 150 - 199 mg/dL High 200 - 499 mg/dL Very High > or = 500 mg/dL WBC (Bld) [#/Vol] 8.1 10*3/uL 4.4-11.0 [facility] Blood erythrocytes count (nu mber/volume)Ordered By: Sean Ayala on 04-28-2023 RBC (Bld) [#/Vol] 4.14 10*6/uL 4.6-6.2 [facility] Blood hemoglobin measurement (mass/volume)Ordered By: Sean Ayala on 04-28-2023 Hemoglobin (Bld) [Mass/Vol] 12.7 g/dL 13.0-16.5 [facility] Blood lymphocytes/100 leukoc ytesOrdered By: Sean Ayala on 04-28-2023 Lymphocytes/100 WBC (Bld) 17.2 % 19-41 [facility] Blood monocytes/100 leukocyt esOrdered By: Sean Ayala on 04-28-2023 Monocytes/100 WBC (Bld) 8.9 % 0-10 [facility] Blood platelet mean volumeOr dered By: eSan Ayala on 04-28-2023 Platelet mean volume (Bld) [Entitic vol] 10.6 fL 6.2-12.0 [facility] Determination of erythrocyte mean corpuscular volume (MCV)Ordered By: Sean Ayala on 04-28-2023 MCV (RBC) [Entitic vol] 99.5 fL 80-94 [facility] Hematocrit Auto (Bld) [Volum e fraction]Ordered By: Sean Ayala on 04-28-2023 Hematocrit (Bld) [Volume fraction] 41.2 % 40-54 [facility] Laboratory - Chemistry and C hemistry - challengeOrdered By: Sean Ayala on 04-28-2023 CO2 [Moles/Vol] 25.0 mmol/L 21.0-32.0 [facility] Urea nitrogen/Creatinine [Mass ratio] 26.8 mg/mg 10-20 [facility] Laboratory - Hematology and Cell countsOrdered By: Sean Ayala on 04-28-2023 Erythrocyte distribution width (RBC) [Entitic vol] 47.0 fL 35.1-43.9 [facility] Erythrocyte distribution width (RBC) [Ratio] 13.0 % 11.6-14.6 [facility] Immature granulocytes/100 WBC (Bld) 0.900 % 0.0-0.9 [facility] Comment on above: IG% - Immature Granu locytes (promyelocytes, myelocytes and metamyelocytes) > 1% indicates that a LEFT SHIFT is Present. MCH (RBC) [Entitic mass] 30.7 pg 27.0-32.0 [facility] Nucleated RBC/100 WBC (Bld) [Ratio] 0 % 0-5 [facility] MCHC Auto (RBC) [Mass/Vol]Or dered By: Sean Ayala on 04-28-2023 MCHC (RBC) [Mass/Vol] 30.8 g/dL 32-36 [facility] No Panel InformationOrdered By: Rodney Brown on 04-28-2023 Troponin I High Sensitivity 1371 pg/mL 3.0-78.0 [facility] Comment on above: Critical Result(s) C alled at: 10:26:00 04/28/2023 by: Felix Willett RN (ICU). Results read back by same. Please Note: New Test Units and Gender Specific Reference Ranges. For more information see Policy Stat Procedure [place] High Sensitivity Troponin (TNIH) and attachments. No Panel InformationOrdered By: Sean Ayala on 04-28-2023 Estimated Creatinine Clearance Calc 71.85 ml/min [facility] Estimated GFR (MDRD) Amer 116 mL/min >60 [facility] Comment on above: GFR Calc Estimated GFR (MDRD) Non-Af Amer 96 mL/min >60 [facility] Comment on above: Non- GFR Calc Thyroid Stimulating Hormone (TSH) 2.45 uIU/mL 0.358-3.74 [facility] Platelets bldOrdered By: Meli Ayala on 04-28-2023 Platelets (Bld) [#/Vol] 199 10*3/uL 150-450 [facility] Serum or plasma calcium kian urement (mass/volume)Ordered By: Sean Ayala on 04-28-2023 Calcium [Mass/Vol] 8.3 mg/dL 8.5-10.1 [facility] Serum or plasma cholesterol in HDL measurement (mass/volume)Ordered By: Sean Ayala on 04-28-2023 Cholesterol in HDL [Mass/Vol] 43 mg/dL >40 [facility] Comment on above: The drugs N-Acetylcy steine and Metamizole may falsely depress this assay. Reference Range HDL <40 mg/dL Low HDL Cholesterol HDL >or= 60 mg/dL High HDL Cholesterol Serum or plasma cholesterol in VLDL measurement (mass/volume)Ordered By: Sean Ayala on 04-28-2023 Cholesterol in VLDL [Mass/Vol] 20 mg/dL 5-40 [facility] Serum or plasma creatinine m easurement (mass/volume)Ordered By: Sean Ayala on 04-28-2023 Creatinine [Mass/Vol] 0.82 mg/dL 0.70-1.30 [facility] Comment on above: The validity of the calculated GFR & GFRAA in patients over 70 years has not been determined. Clinical correlation is essential. Serum or plasma low density lipoprotein (LDL) cholesterol measurement (mass/volume)Ordered By: Sean Ayala on 04-28-2023 Cholesterol in LDL [Mass/Vol] 58 mg/dL 0-130 [facility] Serum or plasma urea nitroge n measurement (mass/volume)Ordered By: Sean Ayala on 04-28-2023 Urea nitrogen [Mass/Vol] 22 mg/dL 7-18 [facility] Thin prep Papanicolaou smear with manual screeningOrdered By: Sean Ayala on 04-28-2023 Thin prep Papanicolaou smear with manual screening 5 5-15 [facility] Whole blood hemoglobin A1c/t otal hemoglobin ratio (mass fraction)Ordered By: Sean Ayala on 04-28-2023 HbA1c (Bld) [Mass fraction] 5.7 % 3.8-5.6 [facility] Comment on above: Normal < 5.7 % Predi abetic 5.7 - 6.4 % Diabetic >or= 6.5 % Please note range changes. Absolute lymphocyte countOrd ered By: Isai Hernandez on 04-27-2023 Lymphocytes Auto (Unsp spec) [#/Vol] 1.46 10*3/uL 0.83-4.51 [facility] Basophil percentageOrdered B y: Isaisergio Bukco on 04-27-2023 Basophils/100 WBC (Bld) 0.6 % 0-1 [facility] Chloride [Moles/Vol] 109 mmol/L 98-107 [facility] Eosinophils/100 WBC (Bld) 1.7 % 0-5 [facility] Glucose [Mass/Vol] 95 mg/dL 74-106 [facility] Neutrophils (Bld) [#/Vol] 5.6 10*3/uL 2.0-7.7 [facility] Neutrophils/100 WBC (Bld) 69.0 % 47-70 [facility] Potassium [Moles/Vol] 4.3 mmol/L 3.5-5.1 [facility] Sodium [Moles/Vol] 141 mmol/L 136-145 [facility] WBC (Bld) [#/Vol] 8.1 10*3/uL 4.4-11.0 [facility] Blood erythrocytes count (nu mber/volume)Ordered By: Isai Hernandez on 04-27-2023 RBC (Bld) [#/Vol] 4.09 10*6/uL 4.6-6.2 [facility] Blood hemoglobin measurement (mass/volume)Ordered By: Isai Hernandez on 04-27-2023 Hemoglobin (Bld) [Mass/Vol] 12.5 g/dL 13.0-16.5 [facility] Blood lymphocytes/100 leukoc ytesOrdered By: Isai Hernandez on 04-27-2023 Lymphocytes/100 WBC (Bld) 18.0 % 19-41 [facility] Blood monocytes/100 leukocyt esOrdered By: Isaisergio Hernandez on 04-27-2023 Monocytes/100 WBC (Bld) 10.0 % 0-10 [facility] Blood platelet mean volumeOr dered By: Isai Hernandez on 04-27-2023 Platelet mean volume (Bld) [Entitic vol] 10.5 fL 6.2-12.0 [facility] Determination of erythrocyte mean corpuscular volume (MCV)Ordered By: Isai Hernandez on 04-27-2023 MCV (RBC) [Entitic vol] 100.5 fL 80-94 [facility] Hematocrit Auto (Bld) [Volum e fraction]Ordered By: Isai Hernandez on 04-27-2023 Hematocrit (Bld) [Volume fraction] 41.1 % 40-54 [facility] INR in Blood by Coagulation assayOrdered By: Isai Hernandez on 04-27-2023 INR Coag (Bld) [Relative time] 1.1 {INR} [facility] Laboratory - Chemistry and C hemistry - challengeOrdered By: Isai Hernandez on 04-27-2023 CO2 [Moles/Vol] 26.0 mmol/L 21.0-32.0 [facility] Urea nitrogen/Creatinine [Mass ratio] 32.5 mg/mg 10-20 [facility] Laboratory - Chemistry and C hemistry - challengeOrdered By: Sean Ayala on 04-27-2023 Magnesium [Mass/Vol] 2.3 mg/dL 1.6-2.6 [facility] Laboratory - CoagulationOrde red By: Isai Hernandez on 04-27-2023 aPTT Coag (Bld) [Time] 30.3 s 24.1-36.2 [facility] PT Coag (PPP) [Time] 14.5 s 11.7-14.9 [facility] Laboratory - Hematology and Cell countsOrdered By: Isai Hernandez on 04-27-2023 Erythrocyte distribution width (RBC) [Entitic vol] 48.2 fL 35.1-43.9 [facility] Erythrocyte distribution width (RBC) [Ratio] 13.0 % 11.6-14.6 [facility] Immature granulocytes/100 WBC (Bld) 0.700 % 0.0-0.9 [facility] Comment on above: IG% - Immature Granu locytes (promyelocytes, myelocytes and metamyelocytes) > 1% indicates that a LEFT SHIFT is Present. MCH (RBC) [Entitic mass] 30.6 pg 27.0-32.0 [facility] Nucleated RBC/100 WBC (Bld) [Ratio] 0 % 0-5 [facility] MCHC Auto (RBC) [Mass/Vol]Or dered By: Isai Hernandez on 04-27-2023 MCHC (RBC) [Mass/Vol] 30.4 g/dL 32-36 [facility] No Panel InformationOrdered By: Isai Hernandez on 04-27-2023 Estimated Creatinine Clearance Calc 66.20 ml/min [facility] Estimated GFR (MDRD) Amer 105 mL/min >60 [facility] Comment on above: GFR Calc Estimated GFR (MDRD) Non-Af Amer 87 mL/min >60 [facility] Comment on above: Non- GFR Calc Troponin I High Sensitivity 1505 pg/mL 3.0-78.0 [facility] Comment on above: Critical Result(s) C alled at: 12:53:20 04/27/2023 by: Ashleigh Quinteros. Results read back by same. Please Note: New Test Units and Gender Specific Reference Ranges. For more information see Policy Stat Procedure [place] High Sensitivity Troponin (TNIH) and attachments. Platelets bldOrdered By: Isaisergio Hernandez on 04-27-2023 Platelets (Bld) [#/Vol] 214 10*3/uL 150-450 [facility] Serum or plasma calcium kian urement (mass/volume)Ordered By: Isaisergio Hernandez on 04-27-2023 Calcium [Mass/Vol] 8.2 mg/dL 8.5-10.1 [facility] Serum or plasma creatinine m easurement (mass/volume)Ordered By: Isaisergio Hernandez on 04-27-2023 Creatinine [Mass/Vol] 0.89 mg/dL 0.70-1.30 [facility] Comment on above: The validity of the calculated GFR & GFRAA in patients over 70 years has not been determined. Clinical correlation is essential. Serum or plasma urea nitroge n measurement (mass/volume)Ordered By: Isaisergio Hernandez on 04-27-2023 Urea nitrogen [Mass/Vol] 29 mg/dL 7-18 [facility] Thin prep Papanicolaou smear with manual screeningOrdered By: Isaisergio Hernandez on 04-27-2023 Thin prep Papanicolaou smear with manual screening 6 5-15 [facility] Absolute lymphocyte countOrd ered By: Anna Koehler on 04-01-2023 Lymphocytes Auto (Unsp spec) [#/Vol] 0.77 10*3/uL 0.83-4.51 [facility] Basophil percentageOrdered B y: Anna Koehler on 04-01-2023 Basophils/100 WBC (Bld) 0.3 % 0-1 [facility] Chloride [Moles/Vol] 108 mmol/L 98-107 [facility] Eosinophils/100 WBC (Bld) 0.1 % 0-5 [facility] Glucose [Mass/Vol] 193 mg/dL 74-106 [facility] Comment on above: Fasting Glucose resu lt greater than or equal to 126 mg/dL suggests DIABETES MELLITUS per A.D.A. criteria. Neutrophils (Bld) [#/Vol] 12.3 10*3/uL 2.0-7.7 [facility] Neutrophils/100 WBC (Bld) 88.0 % 47-70 [facility] Potassium [Moles/Vol] 3.9 mmol/L 3.5-5.1 [facility] Sodium [Moles/Vol] 140 mmol/L 136-145 [facility] WBC (Bld) [#/Vol] 13.9 10*3/uL 4.4-11.0 [facility] Blood erythrocytes count (nu mber/volume)Ordered By: Anna Koehler on 04-01-2023 RBC (Bld) [#/Vol] 4.52 10*6/uL 4.6-6.2 [facility] Blood hemoglobin measurement (mass/volume)Ordered By: Anna Koehler on 04-01-2023 Hemoglobin (Bld) [Mass/Vol] 14.4 g/dL 13.0-16.5 [facility] Blood lymphocytes/100 leukoc ytesOrdered By: Anna Koehler on 04-01-2023 Lymphocytes/100 WBC (Bld) 5.5 % 19-41 [facility] Blood monocytes/100 leukocyt esOrdered By: Anna Koehler on 04-01-2023 Monocytes/100 WBC (Bld) 5.3 % 0-10 [facility] Blood platelet mean volumeOr dered By: Anna Koehler on 04-01-2023 Platelet mean volume (Bld) [Entitic vol] 9.7 fL 6.2-12.0 [facility] Determination of erythrocyte mean corpuscular volume (MCV)Ordered By: Anna Koehler on 04-01-2023 MCV (RBC) [Entitic vol] 99.3 fL 80-94 [facility] Hematocrit Auto (Bld) [Volum e fraction]Ordered By: Anna Koehler on 04-01-2023 Hematocrit (Bld) [Volume fraction] 44.9 % 40-54 [facility] Laboratory - Chemistry and C hemistry - challengeOrdered By: Anna Koehler on 04-01-2023 CO2 [Moles/Vol] 26.0 mmol/L 21.0-32.0 [facility] Urea nitrogen/Creatinine [Mass ratio] 24.3 mg/mg 10-20 [facility] Laboratory - Hematology and Cell countsOrdered By: Anna Koehler on 04-01-2023 Erythrocyte distribution width (RBC) [Entitic vol] 48.9 fL 35.1-43.9 [facility] Erythrocyte distribution width (RBC) [Ratio] 13.3 % 11.6-14.6 [facility] Immature granulocytes/100 WBC (Bld) 0.800 % 0.0-0.9 [facility] Comment on above: IG% - Immature Granu locytes (promyelocytes, myelocytes and metamyelocytes) > 1% indicates that a LEFT SHIFT is Present. MCH (RBC) [Entitic mass] 31.9 pg 27.0-32.0 [facility] Nucleated RBC/100 WBC (Bld) [Ratio] 0 % 0-5 [facility] MCHC Auto (RBC) [Mass/Vol]Or dered By: Anna Koehler on 04-01-2023 MCHC (RBC) [Mass/Vol] 32.1 g/dL 32-36 [facility] No Panel InformationOrdered By: Anna Koehler on 04-01-2023 Estimated Creatinine Clearance Calc 53.08 ml/min [facility] Estimated GFR (MDRD) Amer 82 mL/min >60 [facility] Comment on above: GFR Calc Estimated GFR (MDRD) Non-Af Amer 68 mL/min >60 [facility] Comment on above: Non- GFR Calc Platelets bldOrdered By: Adria Koehler on 04-01-2023 Platelets (Bld) [#/Vol] 158 10*3/uL 150-450 [facility] Serum or plasma calcium kian urement (mass/volume)Ordered By: Anna Koehler on 04-01-2023 Calcium [Mass/Vol] 8.8 mg/dL 8.5-10.1 [facility] Serum or plasma creatinine m easurement (mass/volume)Ordered By: Anna Koehlre on 04-01-2023 Creatinine [Mass/Vol] 1.11 mg/dL 0.70-1.30 [facility] Comment on above: The validity of the calculated GFR & GFRAA in patients over 70 years has not been determined. Clinical correlation is essential. Serum or plasma urea nitroge n measurement (mass/volume)Ordered By: Anna Koehler on 04-01-2023 Urea nitrogen [Mass/Vol] 27 mg/dL 01-02 [facility] Thin prep Papanicolaou smear with manual screeningOrdered By: Anna Koehler on 04-01-2023 Thin prep Papanicolaou smear with manual screening 6 10-30 [facility] CNOVon 01-15-2023 CNOV Office Visit (CAUPDO ) EBEN CRUZ ([id number]) 1945 M Date Time Provider Department 01/15/23 [...] Diagnosis Date CAD (coronary artery disease) Cardiomyopathy ([facility]) Chronic systolic heart failure ([facility]) Essential hypertension HFrEF (heart failure with reduced ejection fraction) ([facility]) History of cardiac cath 2013 EF 45%, [...] Mixed hyperlipidemia Myocardial infarction with cardiac rehabilitation ([facility]) PAST SURGICAL HISTORY Procedure Laterality Date ARTHRP [...] the ri (more content not included)... Normal [facility] ECG COMPLETEon 01-15-2023 ECG COMPLETE Ventricular Rate : 9 4 BPM Atrial Rate : 94 BPM P-R Interval : 190 ms QRS Duration : 96 ms Q-T Interval : 344 ms QTC Calculation(Bazett) : 430 ms Calculated P Brooten : 59 degrees Calculated R Brooten : 8 degrees Calculated T Brooten : -26 degrees SINUS RHYTHM WITH FREQUENT PREMATURE VENTRICULAR COMPLEXES LEFT VENTRICULAR HYPERTROPHY WITH REPOLARIZATION ABNORMALITY Confirmed by URIEL PAREDES DO ([id number]) on 01/27/2023 5:40:44 AM NAME : EBEN CRUZ PID : [id number] : 1945 Gender : Male Race : ORD : [id number] Procedure Date : Jan 15 2023 13:53:19 Edit Date : Jan 27 2023 05:40:46 Diagnosis: SINUS RHYTHM WITH FREQUENT PREMATURE VENTRICULAR COMPLEXES LEFT VENTRICULAR HYPERTROPHY WITH REPOLARIZATION ABNORMALITY Confirmed by URIEL PAREDES DO ([id number]) on 01/27/2023 5:40:44 AM Test Reason : Location : 606 : UPSHE Overread By : URIEL PAREDES DO Edited By : URIEL PAREDES DO Referred By : URIEL PAREDES Acquired by : , Jodi [facility] LABORATORYOrdered By: SYSTEM SYSTEM on 08-25-2022 [...] ADM SS CNOVon 03-24-2022 CNOV Office Visit (CARDCORNEL ) EBEN CRUZ ([id number]) 1945 M Date Time Provider Department 03/24/22 [...] Diagnosis Date CAD (coronary artery disease) Cardiomyopathy ([facility]) Essential hypertension HFrEF (heart failure with reduced ejection fraction) ([facility]) History of cardiac cath 2013 EF 45%, and 50% cx, 30% LAD History of echocardiography 04/2019 EF 35-40%. Mod LV cavity enlargement, mod left atrial and mild right atrial enlargement, mild MR, mild TR, normal right-sided systolioc pressure. History of stress test 2018 39 large inf scar Mixed hyperlipidemia Myocardial infarction with cardiac rehabilitation ([facility]) PAST SURGICAL HISTORY Procedure Laterality Date ARTHRP [...] on t (more content not included)... Normal [facility] ECG COMPLETEon 03-24-2022 ECG COMPLETE Ventricular Rate : 7 1 BPM Atrial Rate : 71 BPM P-R Interval : 216 ms QRS Duration : 92 ms Q-T Interval : 384 ms QTC Calculation(Bazett) : 417 ms Calculated P Brooten : 63 degrees Calculated R Brooten : 26 degrees Calculated T Brooten : 36 degrees SINUS RHYTHM WITH 1ST DEGREE AV BLOCK WITH OCCASIONAL PREMATURE VENTRICULAR COMPLEXES Confirmed by URIEL PAREDES DO ([id number]) on 03/26/2022 6:22:54 PM NAME : EBEN CRUZ PID : [id number] : 1945 Gender : Male Race : ORD : [id number] Procedure Date : Mar 24 2022 07:08:06 Edit Date : Mar 26 2022 18:22:57 Diagnosis: SINUS RHYTHM WITH 1ST DEGREE AV BLOCK WITH OCCASIONAL PREMATURE VENTRICULAR COMPLEXES Confirmed by URIEL PAREDES DO ([id number]) on 03/26/2022 6:22:54 PM Test Reason : Location : [address] [place] [address] Overread By : URIEL PAREDES DO Edited By : URIEL PAREDES DO Referred By : URIEL PAREDES Acquired by : [id number], Normal [facility] CDLECHOon 04-29-2019 CDLECHO INTERPRETING PHYSICI AN: [...] paradoxical. Remaining cedillo are diffusely hypokinetic, consistent [facility] PATIENT NAME: EBEN CRUZ [address] MEDICAL REC #: [id number] [place] [address] ADMIT DATE: DISCHARGE DATE: ATTENDING PHY: Uriel [...] with normal right-sided systolic pressures. MD TRUE [id number] SSI File#: [id number] CC: Uriel Paredes DO Verified/Reviewed by [id number] [facility] PATIENT NAME: EBEN CRUZ [facility] [address] MEDICAL REC #: [id number] [place] [address] ADMIT DATE: DISCHARGE DATE: ATTENDING PHY: Uriel Paredes DO ECHOCARDIOGRAM REPORT Normal [facility] ECHOCARDIOGRAM REPORT Normal [facility] Vital Signs Date Time Vital Sign Value Performing Clinician Facility 02-27-2025 14:59-0400 Body height 172.72 cm No Primary Care Physician [facility] 02-27-2025 14:59-0400 Body mass index (BMI) [Ratio] 30.7 kg/m2 No Primary Care Physician [facility] 02-27-2025 14:59-0400 Body weight 91.62 kg No Primary Care Physician [facility] 02-27-2025 14:59-0400 Diastolic blood pressure 65 mm[Hg] No Primary Care Physician [facility] 02-27-2025 14:59-0400 Heart rate 49 /min No Primary Care Physician [facility] 02-27-2025 14:59-0400 Respiratory rate 18 /min No Primary Care Physician [facility] 02-27-2025 14:59-0400 Systolic blood pressure 106 mm[Hg] No Primary Care Physician [facility] 02-10-2025 09:51-0400 Body height 172.72 cm No Primary Care Physician [facility] 02-10-2025 09:51-0400 Body mass index (BMI) [Ratio] 30.6 kg/m2 No Primary Care Physician [facility] 02-10-2025 09:51-0400 Body temperature 96.4 [degF] No Primary Care Physician [facility] 02-10-2025 09:51-0400 Body weight 91.34 kg No Primary Care Physician [facility] 02-10-2025 09:51-0400 Diastolic blood pressure 72 mm[Hg] No Primary Care Physician [facility] 02-10-2025 09:51-0400 Heart rate 51 /min No Primary Care Physician [facility] 02-10-2025 09:51-0400 Respiratory rate 16 /min No Primary Care Physician [facility] 02-10-2025 09:51-0400 SaO2% (BldA) [Mass fraction] 100 % No Primary Care Physician [facility] 02-10-2025 09:51-0400 Systolic blood pressure 138 mm[Hg] No Primary Care Physician [facility] 11-05-2024 08:58-0400 Body height 172.72 cm No Primary Care Physician [facility] 11-05-2024 08:51-0400 Body mass index (BMI) [Ratio] 29.9 kg/m2 No Primary Care Physician [facility] 11-05-2024 08:51-0400 Body weight 89.35 kg No Primary Care Physician [facility] 11-05-2024 08:51-0400 Diastolic blood pressure 68 mm[Hg] No Primary Care Physician [facility] 11-05-2024 08:51-0400 Heart rate 40 /min No Primary Care Physician [facility] 11-05-2024 08:51-0400 Respiratory rate 16 /min No Primary Care Physician [facility] 11-05-2024 08:51-0400 SaO2% (BldA) [Mass fraction] 93 % No Primary Care Physician [facility] 11-05-2024 08:51-0400 Systolic blood pressure 114 mm[Hg] No Primary Care Physician [facility] 08-18-2024 12:29-0500 Body mass index (BMI) [Ratio] 28.94 kg/m2 Marissa Sorto APRN.GAS LEAK INSPECTOR Work Phone: [facility] 08-18-2024 12:29-0500 Body temperature 97.81 [degF] Marissa Sorto APRN.CNP Work Phone: [facility] 08-18-2024 12:29-0500 Body weight 88.91 kg Marissa Sorto APRN.CNP Work Phone: [facility] 08-18-2024 12:29-0500 Diastolic blood pressure 64 mm[Hg] Marissa Sorto APRN.GAS LEAK INSPECTOR Work Phone: [facility] 08-18-2024 12:29-0500 Heart rate 56 /min Marissa Sorto APRN.GAS LEAK INSPECTOR Work Phone: [facility] 08-18-2024 12:29-0500 Respiratory rate 18 /min Marissa Sorto APRN.GAS LEAK INSPECTOR Work Phone: [facility] 08-18-2024 12:29-0500 SaO2% (BldA) [Mass fraction] 95 % Marissa Sorto APRN.GAS LEAK INSPECTOR Work Phone: [facility] 08-18-2024 12:29-0500 Systolic blood pressure 109 mm[Hg] Marissa Sorto EXECUTIVE CREATIVE DIRECTOR.GAS LEAK INSPECTOR Work Phone: [facility] 08-18-2024 10:11-0500 Body height 172.[address] Mark Go DO Work Phone: [facility] 08-18-2024 09:55-0500 Body mass index (BMI) [Ratio] 29.7 kg/m2 Dr. Mark Go DO Work Phone: [facility] 08-18-2024 09:55-0500 Body temperature 97.9 [degF] Dr. Mark Go DO Work Phone: [facility] 08-18-2024 09:55-0500 Body weight 88.[address] Mark Go DO Work Phone: [facility] 08-18-2024 09:55-0500 Diastolic blood pressure 58 mm[Hg] Dr. Mark Go DO Work Phone: [facility] 08-18-2024 09:55-0500 Heart rate 53 /min Dr. aMrk Go DO Work Phone: [facility] 08-18-2024 09:55-0500 Respiratory rate 16 /min Dr. Mark Go DO Work Phone: [facility] 08-18-2024 09:55-0500 SaO2% (BldA) [Mass fraction] 93 % Dr. Mark Go DO Work Phone: [facility] 08-18-2024 09:55-0500 Systolic blood pressure 107 mm[Hg] Dr. Mark Go DO Work Phone: 3(011)225-581271 [place] [address] 06-27-2024 11:42-0500 Heart rate 97 /min Dr. Mark Go DO Work Phone: 9(971)462-921271 [place] [address] 06-27-2024 11:12-0500 Body mass index (BMI) [Ratio] 29 kg/m2 Dr. Mark Go DO Work Phone: 5(385)709-614371 [place] [address] 06-27-2024 11:12-0500 Body weight 86.[address] Mark Go DO Work Phone: 3(464)144-121311 [place] [address] 06-27-2024 11:12-0500 Diastolic blood pressure 67 mm[Hg] Dr. Mark Go DO Work Phone: 6(451)420-877611 [place] [address] 06-27-2024 11:12-0500 Respiratory rate 16 /min Dr. Mark Go DO Work Phone: 3(918)036-219411 [place] [address] 06-27-2024 11:12-0500 SaO2% (BldA) [Mass fraction] 93 % Dr. Mark Go DO Work Phone: 5(005)960-411311 [place] [address] 06-27-2024 11:12-0500 Systolic blood pressure 117 mm[Hg] Dr. Mark Go DO Work Phone: 1(459)000-712571 [place] [address] 06-25-2024 12:44-0500 Body temperature 97.8 [degF] Dr. Mark Go DO Work Phone: 0(926)208-117571 [place] [address] 06-25-2024 12:44-0500 Diastolic blood pressure 68 mm[Hg] Dr. Mark Go DO Work Phone: 7(179)580-224271 [place] [address] 06-25-2024 12:44-0500 Heart rate 68 /min Dr. Mark Go DO Work Phone: 9(741)338-964471 [place] [address] 06-25-2024 12:44-0500 Inhaled oxygen flow rate 4 L/min Dr. Mark Go DO Work Phone: 9(197)113-425171 [place] [address] 06-25-2024 12:44-0500 Respiratory rate 18 /min Dr. Mark Go DO Work Phone: [facility] 06-25-2024 12:44-0500 SaO2% (BldA) [Mass fraction] 100 % Dr. Mark Go DO Work Phone: [facility] 06-25-2024 12:44-0500 Systolic blood pressure 98 mm[Hg] Dr. Mark Go DO Work Phone: [facility] 06-25-2024 04:42-0500 Body mass index (BMI) [Ratio] 29.2 kg/m2 Dr. Mark Go DO Work Phone: [facility] 06-25-2024 04:42-0500 Body weight 87.[address] Mark Go DO Work Phone: [facility] 10-20-2023 11:30-0400 Body temperature 97.2 [degF] Dr. Iwona Stewart Work Phone: [facility] 10-20-2023 11:30-0400 Diastolic blood pressure 75 mm[Hg] Dr. Iwona Stewart Work Phone: [facility] 10-20-2023 11:30-0400 Heart rate 60 /min Dr. Iwona Stewart Work Phone: [facility] 10-20-2023 11:30-0400 Respiratory rate 16 /min Dr. Iwona Stewart Work Phone: [facility] 10-20-2023 11:30-0400 SaO2% (BldA) [Mass fraction] 99 % Dr. Iwona tSewart Work Phone: [facility] 10-20-2023 11:30-0400 Systolic blood pressure 124 mm[Hg] Dr. Iwona Stewart Work Phone: [facility] 10-19-2023 05:22-0400 Body mass index (BMI) [Ratio] 29.3 kg/m2 Dr. Iwona Stewart Work Phone: [facility] 10-19-2023 05:22-0400 Body weight 90.[address] Iwona Stewart Work Phone: [facility] 10-17-2023 15:20-0400 Body height 175.[address] Iwona Stewart Work Phone: [facility] 10-05-2023 15:45-0400 Body temperature 98.29 [degF] Amos Nichole MD Work Phone: [facility] 10-05-2023 15:45-0400 Diastolic blood pressure 60 mm[Hg] Amos Nichole MD Work Phone: [facility] 10-05-2023 15:45-0400 Heart rate 62 /min Amos Nichole MD Work Phone: [facility] 10-05-2023 15:45-0400 SaO2% (BldA) [Mass fraction] 99 % Amos Nichole MD Work Phone: [facility] 10-05-2023 15:45-0400 Systolic blood pressure 107 mm[Hg] Amos Nichole MD Work Phone: [facility] 10-05-2023 10:45-0400 Respiratory rate 23 /min Amos Nichole MD Work Phone: [facility] 10-05-2023 06:09-0400 Body mass index (BMI) [Ratio] 27.26 kg/m2 Amos Nichole MD Work Phone: [facility] 10-05-2023 06:09-0400 Body weight 86.18 kg Amos Nichole MD Work Phone: [facility] 09-30-2023 15:04-0400 Body height 177.8 cm Amos Nichole MD Work Phone: [facility] 09-25-2023 11:29-0400 Body temperature 98 [degF] Dr. Iwona Stewart Work Phone: [facility] 09-25-2023 11:29-0400 Diastolic blood pressure 80 mm[Hg] Dr. Iwona Stewart Work Phone: [facility] 09-25-2023 11:29-0400 Heart rate 78 /min Dr. Iwona Stewart Work Phone: [facility] 09-25-2023 11:29-0400 Respiratory rate 16 /min Dr. Iwona Stewart Work Phone: [facility] 09-25-2023 11:29-0400 SaO2% (BldA) [Mass fraction] 98 % Dr. Iwona Stewart Work Phone: [facility] 09-25-2023 11:29-0400 Systolic blood pressure 102 mm[Hg] Dr. Iwona Stewart Work Phone: [facility] 09-25-2023 10:29-0400 Inhaled oxygen flow rate 4 L/min Dr. Iwona Stewart Work Phone: [facility] 09-24-2023 11:07-0400 Inhaled oxygen concentration 45 % Dr. Iwona Stewart Work Phone: [facility] 09-23-2023 11:32-0400 Body height 175.[address] Iwona Stewart Work Phone: [facility] 09-23-2023 11:32-0400 Body mass index (BMI) [Ratio] 31.9 kg/m2 Dr. Iwona Stewart Work Phone: [facility] 09-23-2023 11:32-0400 Body weight 98.[address] Iwona Stewart Work Phone: [facility] 09-23-2023 10:30-0400 Diastolic Blood Pressure Non-Invasive 77 mm[Hg] DR GRISELDA AGUILERA DO [facility] 09-23-2023 10:30-0400 Heart rate 101 /min DR GRISELDA AGUILERA DO [facility] 09-23-2023 10:30-0400 Respiratory rate 24 /min DR GRISELDA AGUILERA DO [facility] 09-23-2023 10:30-0400 Systolic Blood Pressure Non-Invasive 124 mm[Hg] DR GRISELDA AGUILERA DO [facility] 09-23-2023 10:23-[address] GRISELDA AGUILERA DO [facility] 09-23-2023 10:23-0400 Body temperature 98.6 [degF] DR GRISELDA AGUILERA DO [facility] 09-23-2023 10:23-0400 Body weight 97.[address] GRISELDA AGUILERA DO [facility] 09-23-2023 10:23-0400 Diastolic Blood Pressure Non-Invasive 59 mm[Hg] DR GRISELDA AGUILERA DO [facility] 09-23-2023 10:23-0400 Heart rate 100 /min DR GRISELDA AGUILERA DO [facility] 09-23-2023 10:23-0400 Reason For Taking VItal Signs DR GRISELDA AGUILERA DO [facility] 09-23-2023 10:23-0400 Respiratory rate 16 /min DR GRISELDA AGUILERA DO [facility] 09-23-2023 10:23-0400 Systolic Blood Pressure Non-Invasive 120 mm[Hg] DR GRISELDA AGUILERA DO [facility] 09-23-2023 09:24-0400 Heart rate 107 /min ELIZA STUBBS APRN-GAS LEAK INSPECTOR [facility] 09-23-2023 08:56-0400 Heart rate 112 /min ELIZA STUBBS APRN-GAS LEAK INSPECTOR [facility] 09-23-2023 08:32-0400 Body temperature 97.88 [degF] ELIZA KAPPER EXECUTIVE CREATIVE DIRECTOR-GAS LEAK INSPECTOR [facility] 09-23-2023 08:32-0400 Diastolic Blood Pressure Non-Invasive 72 mm[Hg] ELIZA KAPPER EXECUTIVE CREATIVE DIRECTOR-GAS LEAK INSPECTOR [facility] 09-23-2023 08:32-0400 Heart rate 90 /min ELIZA KAPPER EXECUTIVE CREATIVE DIRECTOR-GAS LEAK INSPECTOR [facility] 09-23-2023 08:32-0400 Systolic Blood Pressure Non-Invasive 122 mm[Hg] ELIZA KAPPER EXECUTIVE CREATIVE DIRECTOR-GAS LEAK INSPECTOR [facility] 09-23-2023 03:39-0400 Respiratory rate 20 /min ELIZA KAPPER EXECUTIVE CREATIVE DIRECTOR-GAS LEAK INSPECTOR [address] [place] [address] 09-23-2023 03:27-0400 Respiratory rate 20 /min ELIZA KAPPER EXECUTIVE CREATIVE DIRECTOR-GAS LEAK INSPECTOR [facility] 09-23-2023 03:13-0400 Body temperature 98.24 [degF] ELIZA KAPPER EXECUTIVE CREATIVE DIRECTOR-GAS LEAK INSPECTOR [facility] 09-23-2023 03:13-0400 Diastolic Blood Pressure Non-Invasive 68 mm[Hg] ELIZA KAPPER EXECUTIVE CREATIVE DIRECTOR-GAS LEAK INSPECTOR [facility] 09-23-2023 03:13-0400 Respiratory rate 20 /min ELIZA KAPPER EXECUTIVE CREATIVE DIRECTOR-GAS LEAK INSPECTOR [facility] 09-23-2023 03:13-0400 Systolic Blood Pressure Non-Invasive 112 mm[Hg] ELIZA KAPPER EXECUTIVE CREATIVE DIRECTOR-GAS LEAK INSPECTOR [facility] 09-22-2023 19:36-0400 Body temperature 98.42 [degF] ELIZA KAPPER EXECUTIVE CREATIVE DIRECTOR-GAS LEAK INSPECTOR [facility] 09-22-2023 19:36-0400 Diastolic Blood Pressure Non-Invasive 74 mm[Hg] ELIZA ROGEER EXECUTIVE CREATIVE DIRECTOR-GAS LEAK INSPECTOR [facility] 09-22-2023 19:36-0400 Reason For Taking VItal Signs ELIZA EVELYNE EXECUTIVE CREATIVE DIRECTOR-GAS LEAK INSPECTOR [facility] 09-22-2023 19:36-0400 Systolic Blood Pressure Non-Invasive 113 mm[Hg] ELIZABea GUANER EXECUTIVE CREATIVE DIRECTOR-GAS LEAK INSPECTOR [facility] 09-22-2023 06:29-0400 Heart rate 96 /min ELIZA ROGEER EXECUTIVE CREATIVE DIRECTOR-GAS LEAK INSPECTOR [facility] 09-22-2023 06:29-0400 Reason For Taking VItal Signs ELIZA ROGEER EXECUTIVE CREATIVE DIRECTOR-GAS LEAK INSPECTOR [facility] [place] 09-21-2023 20:47-0400 Reason For Taking VItal Signs ELIZA ROGEER EXECUTIVE CREATIVE DIRECTOR-GAS LEAK INSPECTOR [facility] 09-21-2023 16:27-0400 Body weight 32.98 kg/m2 ELIZA KAPPER EXECUTIVE CREATIVE DIRECTOR-GAS LEAK INSPECTOR [facility] 09-21-2023 14:27-0400 Heart rate 105 /min ELIZA ROGEER EXECUTIVE CREATIVE DIRECTOR-GAS LEAK INSPECTOR [facility] 09-21-2023 14:04-0400 Body height 170 cm ELIZA ROGEER EXECUTIVE CREATIVE DIRECTOR-GAS LEAK INSPECTOR [facility] 09-21-2023 14:04-0400 Body weight 95.3 kg ELIZA KAPPER EXECUTIVE CREATIVE DIRECTOR-GAS LEAK INSPECTOR [facility] 09-21-2023 14:04-0400 Body weight 32.98 kg/m2 ELIZA KAPPER EXECUTIVE CREATIVE DIRECTOR-GAS LEAK INSPECTOR [facility] 09-21-2023 12:44-0400 Heart rate 65 /min DR IWONA SCHREIBER MD [facility] 09-21-2023 11:13-0400 Body temperature 98.24 [degF] DR IWONA SCHREIBER MD [facility] 09-21-2023 11:13-0400 Diastolic Blood Pressure Non-Invasive 56 mm[Hg] DR IWONA SCHREIBER MD [facility] 09-21-2023 11:13-0400 Heart rate 101 /min DR IWONA SCHREIBER MD [facility] 09-21-2023 11:13-0400 Reason For Taking VItal Signs DR IWONA SCHREIBER MD [facility] 09-21-2023 11:13-0400 Respiratory rate 18 /min DR IWONA SCHREIBER MD [facility] 09-21-2023 11:13-0400 Systolic Blood Pressure Non-Invasive 119 mm[Hg] DR IWONA SCHREIBER MD [facility] 09-21-2023 10:17-0400 Heart rate 95 /min DR IWONA SCHREIBER MD [facility] 09-21-2023 07:30-0400 Heart rate 106 /min DR IWONA SCHREIBER MD [facility] 09-21-2023 06:51-0400 Body temperature 98.24 [degF] DR IWONA SCHREIBER MD [facility] 09-21-2023 06:51-0400 Diastolic Blood Pressure Non-Invasive 69 mm[Hg] DR IWONA SCHREIBER MD [facility] 09-21-2023 06:51-0400 Reason For Taking VItal Signs DR IWONA SCHREIBER MD [facility] 09-21-2023 06:51-0400 Respiratory rate 18 /min DR IWONA SCHREIBER MD [facility] 09-21-2023 06:51-0400 Systolic Blood Pressure Non-Invasive 118 mm[Hg] DR IWONA SCHREIBER MD [facility] 09-21-2023 03:46-0400 Body temperature 98.42 [degF] DR IWONA SCHREIBER MD [facility] 09-21-2023 03:46-0400 Diastolic Blood Pressure Non-Invasive 74 mm[Hg] DR IWONA SCHREIBER MD [facility] 09-21-2023 03:46-0400 Reason For Taking VItal Signs DR IWONA SCHREIBER MD [facility] 09-21-2023 03:46-0400 Respiratory rate 18 /min DR IWONA SCHREIBER MD [facility] 09-21-2023 03:46-0400 Systolic Blood Pressure Non-Invasive 114 mm[Hg] DR IWONA SCHREIBER MD [facility] 09-20-2023 23:37-0400 Heart rate 116 /min DR IWONA SCHREIBER MD [facility] 09-20-2023 19:03-0400 Heart rate 127 /min DR IWONA SCHREIBER MD [facility] 09-18-2023 17:05-0400 Body height [address] IWONA SCHREIBER MD [facility] 09-18-2023 17:05-0400 Body weight 95.[address] IWONA SCHREIBER MD [facility] 09-18-2023 17:05-0400 Body weight 32.98 kg/m2 DR IWONA SCHREIBER MD [facility] 09-18-2023 16:15-0400 Mean blood pressure 61 mm[Hg] DR IWONA SCHREIBER MD [facility] 09-18-2023 15:45-0400 Mean blood pressure 70 mm[Hg] DR IWONA SCHREIBER MD [facility] 09-18-2023 15:15-0400 Mean blood pressure 78 mm[Hg] DR IWONA SCHREIBER MD [facility] 09-18-2023 13:10-0400 Body temperature 96.08 [degF] DR IWONA SCHREIBER MD [facility] 09-18-2023 13:05-0400 Respiratory Rate - Anes 19 br/min DR IWONA SCHREIBER MD [facility] 09-18-2023 13:00-0400 Respiratory Rate - Anes 18 br/min DR IWONA SCHREIBER MD [facility] 09-18-2023 12:55-0400 Respiratory Rate - Anes 19 br/min DR IWONA SCHREIBER MD [facility] 09-18-2023 12:45-0400 Body temperature 96.8 [degF] DR IWONA SCHREIBER MD [facility] 09-18-2023 12:30-0400 Body temperature 96.8 [degF] DR IWONA SCHREIBER MD [facility] 09-18-2023 12:15-0400 Body temperature 96.8 [degF] DR IWONA SCHREIBER MD [facility] 09-18-2023 09:13-0400 Body height [address] IWONA SCHREIBER MD [facility] 09-18-2023 09:13-0400 Body temperature 97.88 [degF] DR IWONA SCHREIBER MD [facility] 09-18-2023 09:13-0400 Body weight 95.[address] IWONA SCHREIBER MD [facility] 09-18-2023 09:13-0400 Heart rate 74 /min DR IWONA SCHREIBER MD [facility] 07-23-2023 10:00-[address] IWONA SCHREIBER MD [facility] 07-23-2023 10:00-[address] IWONA Edmond [facility] 07-23-2023 10:00-0500 Body height 175.[address] IWONA SCHREIBER MD [facility] 07-23-2023 10:00-0500 Body weight 92.[address] IWONA SCHREIBER MD [facility] 07-23-2023 10:00-0500 Body weight 30.1 kg/m2 DR IWONA SCHREIBER MD [facility] 07-23-2023 10:00-0500 Diastolic Blood Pressure Non-Invasive 67 mm[Hg] DR IWONA SCHREIBER MD [facility] 07-23-2023 10:00-0500 Heart rate 58 /min DR IWONA SCHREIBER MD [facility] 07-23-2023 10:00-0500 Respiratory rate 18 /min DR IWONA SCHREIBER MD [facility] 07-23-2023 10:00-0500 Systolic Blood Pressure Non-Invasive 102 mm[Hg] DR IWONA SCHREIBER MD [facility] 06-19-2023 10:27-0500 Body height 175.[address] Iwona Stewart Work Phone: [facility] 06-19-2023 10:25-0500 Body mass index (BMI) [Ratio] 30.7 kg/m2 Dr. Iwona Stewart Work Phone: [facility] 06-19-2023 10:25-0500 Body weight 94.[address] Iwona Stewart Work Phone: [facility] 06-19-2023 10:25-0500 Diastolic blood pressure 71 mm[Hg] Dr. Iwona Stewart Work Phone: [facility] 06-19-2023 10:25-0500 Heart rate 90 /min Dr. Iwona Stewart Work Phone: [facility] 06-19-2023 10:25-0500 Respiratory rate 18 /min Dr. Iwona Stewart Work Phone: [facility] 06-19-2023 10:25-0500 SaO2% (BldA) [Mass fraction] 97 % Dr. Iwona Stewart Work Phone: [facility] 06-19-2023 10:25-0500 Systolic blood pressure 124 mm[Hg] Dr. Iwona Stewart Work Phone: [facility] 05-14-2023 13:32-0500 Body height 175.[address] Iwona Stewart Work Phone: [facility] 05-14-2023 13:27-0500 Body mass index (BMI) [Ratio] 30.8 kg/m2 Dr. Iwona Stewart Work Phone: [facility] 05-14-2023 13:27-0500 Body weight 94.[address] Iwona Stewart Work Phone: [facility] 05-14-2023 13:27-0500 Diastolic blood pressure 76 mm[Hg] Dr. Iwona Stewart Work Phone: [facility] 05-14-2023 13:27-0500 Heart rate 87 /min Dr. Iwona Stewart Work Phone: [facility] 05-14-2023 13:27-0500 Respiratory rate 22 /min Dr. Iwona Stewart Work Phone: [facility] 05-14-2023 13:27-0500 SaO2% (BldA) [Mass fraction] 96 % Dr. Iwona Stewart Work Phone: [facility] 05-14-2023 13:27-0500 Systolic blood pressure 127 mm[Hg] Dr. Iwona Stewart Work Phone: [facility] 04-29-2023 11:01-0500 Body temperature 97.8 [degF] Dr. Iwona Stewart Work Phone: [facility] 04-29-2023 11:01-0500 Diastolic blood pressure 51 mm[Hg] Dr. Iwona Stewart Work Phone: [facility] 04-29-2023 11:01-0500 Heart rate 86 /min Dr. Iwona Stewart Work Phone: [facility] 04-29-2023 11:01-0500 Respiratory rate 16 /min Dr. Iwona Stewart Work Phone: [facility] 04-29-2023 11:01-0500 SaO2% (BldA) [Mass fraction] 96 % Dr. Iwona Stewart Work Phone: [facility] 04-29-2023 11:01-0500 Systolic blood pressure 129 mm[Hg] Dr. Iwona Stewart Work Phone: [facility] 04-29-2023 06:00-0500 Body mass index (BMI) [Ratio] 30.2 kg/m2 Dr. Iwona Stewart Work Phone: [facility] 04-29-2023 06:00-0500 Body weight 92.[address] Iwona Stewart Work Phone: [facility] 04-27-2023 13:28-0500 Body height 175.[address] Iwona Stewart Work Phone: [facility] 04-27-2023 13:28-0500 Body mass index (BMI) [Ratio] 30.1 kg/m2 Dr. Iwona Stewart Work Phone: [facility] 04-27-2023 13:28-0500 Body weight 92.[address] Iwona Stewart Work Phone: [facility] 04-27-2023 13:06-0500 Diastolic blood pressure 83 mm[Hg] Dr. Iwona Stewart Work Phone: [facility] 04-27-2023 13:06-0500 Heart rate 89 /min Dr. Iwona Stewart Work Phone: [facility] 04-27-2023 13:06-0500 Respiratory rate 12 /min Dr. Iwona Stewart Work Phone: [facility] 04-27-2023 13:06-0500 SaO2% (BldA) [Mass fraction] 94 % Dr. Iwona Stewart Work Phone: [facility] 04-27-2023 13:06-0500 Systolic blood pressure 138 mm[Hg] Dr. Iwona Stewart Work Phone: [facility] 04-27-2023 12:48-0500 Body temperature 97.4 [degF] Dr. Iwona Stewart Work Phone: [facility] 04-01-2023 14:52-0400 Diastolic blood pressure 72 mm[Hg] [facility] 04-01-2023 14:52-0400 Heart rate 100 /min [facility] 04-01-2023 14:52-0400 SaO2% (BldA) [Mass fraction] 96 % [facility] 04-01-2023 14:52-0400 Systolic blood pressure 120 mm[Hg] [facility] 04-01-2023 13:19-0400 Body temperature 98.5 [degF] [facility] 04-01-2023 13:19-0400 Respiratory rate 18 /min [facility] 04-01-2023 11:56-0400 Body mass index (BMI) [Ratio] 32.5 kg/m2 [facility] 04-01-2023 11:56-0400 Body weight 99.8 kg [facility] 04-01-2023 11:48-0400 Body height 175.26 cm [facility] 01-15-2023 14:53-0400 Body height 175.3 cm [employer] Work Phone: [facility] 01-15-2023 14:53-0400 Body weight 92.59 kg Uriel [employer] DO Work Phone: [facility] 01-15-2023 14:53-0400 Diastolic blood pressure 70 mm[Hg] [employer] Work Phone: [facility] 01-15-2023 14:53-0400 Heart rate 94 /min [employer] Work Phone: [facility] 01-15-2023 14:53-0400 Systolic blood pressure 120 mm[Hg] [employer] Work Phone: [facility] 12-02-2022 09:55-0400 Body height 175.3 cm EUSEBIO WASHBURN DO [facility] 12-02-2022 09:55-0400 Body temperature 97.88 [degF] EUSEBIO FROMMELT DO [facility] 12-02-2022 09:55-0400 Body weight 94.7 kg EUSEBIO FROMMELT DO [facility] 12-02-2022 09:55-0400 Diastolic Blood Pressure Non-Invasive 85 1 EUSEBIO FROMMELT DO [facility] 12-02-2022 09:55-0400 Heart rate 98 /min EUSEBIO FROMBARTOLOT DO [facility] 12-02-2022 09:55-0400 Respiratory rate 18 /min EUSEBIO FROMBARTOLOT DO [facility] 12-02-2022 09:55-0400 Systolic Blood Pressure Non-Invasive 156 1 EUSEBIO CRUZT DO [facility] 08-11-2022 17:05-0500 Body temperature 97.59 [degF] Eliza Molina DO Work Phone: [facility] 08-11-2022 17:05-0500 Body weight 92.99 kg Eliza Molina DO Work Phone: [facility] 08-11-2022 17:05-0500 Diastolic blood pressure 79 mm[Hg] Eliza Molina DO Work Phone: [facility] 08-11-2022 17:05-0500 Heart rate 89 /min Eliza Molina DO Work Phone: [facility] 08-11-2022 17:05-0500 Respiratory rate 18 /min Eliza Molina DO Work Phone: [facility] 08-11-2022 17:05-0500 SaO2% (BldA) [Mass fraction] 96 % Eliza Molina DO Work Phone: [facility] 08-11-2022 17:05-0500 Systolic blood pressure 145 mm[Hg] Eliza Molina DO Work Phone: [facility] 03-24-2022 07:04-0400 Body height 175.3 cm Uriel Paredes DO Work Phone: [facility] 03-24-2022 07:04-0400 Body weight 95.25 kg Uriel Paredes DO Work Phone: [facility] 03-24-2022 07:04-0400 Diastolic blood pressure 68 mm[Hg] Uriel Paredes DO Work Phone: [facility] 03-24-2022 07:04-0400 Heart rate 71 /min Uriel Paredes DO Work Phone: [facility] 03-24-2022 07:04-0400 Systolic blood pressure 120 mm[Hg] Uriel Paredes DO Work Phone: [facility] Encounters Encounter Date Encounter Type Care Provider Facility Start: 05-21-[address] [facility] Start: 04-27-2025 End: 04-27-2025 ambulatory KIM PRATT Facility:[id number] Start: 02-27-2025 End: 02-27-[address] Auugsto Lacey MD -[facility] Work Phone: Start: 02-27-2025 End: 02-27-2025 ambulatory No Primary Care Physician -[facility] Start: 02-10-2025 End: 02-10-2025 ambulatory No Primary Care Physician -[facility] Start: 02-10-2025 End: 02-10-[address] Chelsea Singh MD -[facility] Work Phone: Start: 02-05-2025 Non-patient / Non-visit Dr. Twila LEE -[facility] Work Phone: Start: 02-05-2025 End: 02-05-2025 ambulatory No Primary Care Physician -Pulmonary Services/Neurology Start: 02-05-2025 End: 02-05-2025 Patient encounter procedure Vidal DEE -Pulmonary Services/Neurology Work Phone: Start: 02-05-2025 End: 02-05-2025 ambulatory No Primary Care Physician Facility:[facility] Start: 11-05-2024 End: 11-05-2024 Patient encounter procedure Vidal Banda BORING MACHINE OPERATOR-C -[facility] Work Phone: Start: 11-05-2024 End: 11-05-2024 ambulatory No Primary Care Physician [facility] Work Phone: Start: 08-26-2024 ambulatory No Primary Car e Physician Facility:[facility] Start: 08-26-2024 Non-patient / Non-visit Dr. Marcie Chau MD -[facility] Start: 08-26-2024 End: 08-26-[address] Mark Go DO Work Phone: [facility] Work Phone: Start: 08-26-2024 End: 08-26-2024 Patient encounter procedure Vidal Banda BORING MACHINE OPERATOR-C -Cardiovascular Services Work Phone: Start: 08-26-2024 End: 08-26-2024 ambulatory No Primary Care Physician Facility:[facility] Start: 08-18-2024 ambulatory MARISSA SORTO Facilit y:[id number] Start: 08-18-2024 End: 08-18-2024 Subsequent hospital visit by physician Xr [facility] Work Phone: [facility] Comment on above: Subacute cough [R05. 2] Start: 08-18-2024 End: 08-18-2024 ambulatory SELF Facility:[id number] Start: 08-18-2024 End: 08-18-2024 Office outpatient visit 40 minutes Marissa Sorto EXECUTIVE CREATIVE DIRECTOR.GAS LEAK INSPECTOR Work Phone: [facility] [place] Comment on above: Subacute cough (Prim pepper Dx); Community acquired pneumonia of left lower lobe of lung Start: 08-18-2024 End: 08-18-2024 Patient encounter procedure Vidal Banda NP-C -[facility] Work Phone: Start: 08-18-2024 End: 08-18-2024 ambulatory No Primary Care Physician Facility:[facility] Start: 08-08-2024 ambulatory Ro Kendrick Facility:[facility] Start: 08-08-2024 Non-patient / Non-visit Dr. Ro sarah MD -[facility] Start: 08-08-2024 End: 08-08-2024 Patient encounter procedure Vidal Banda BORING MACHINE OPERATOR-C -Cardiovascular Services Work Phone: Start: 08-08-2024 End: 08-08-2024 ambulatory No Primary Care Physician Facility:[facility] Start: 06-27-2024 End: 06-27-2024 Patient encounter procedure Vidal Banda NP-C -[facility] Work Phone: Start: 06-27-2024 End: 06-27-2024 ambulatory Iwona Stewart Facility:[facility] Start: 06-25-2024 Non-patient / Non-visit Dr. Gregory Kruse MD -[facility] Start: 06-24-2024 ambulatory Don Parker Facility:[facility] Start: 06-24-2024 Non-patient / Non-visit Dr. Gregory Kruse MD -[facility] Start: 06-23-2024 End: 06-25-2024 Evaluation and management of inpatient Dr. Chet Edmonds MD -Progressive Care Unit Work Phone: Start: 06-23-2024 End: 06-25-2024 ambulatory No Primary Care Physician Facility:[facility] Start: 06-23-2024 Non-patient / Non-visit Dr. Sarah Perrin MD -[facility] Work Phone: Start: 05-06-2024 End: 05-06-2024 ambulatory Iwona Stewart Facility:[facility] Start: 05-01-2024 End: 05-05-2024 ambulatory IWONA STEWART MD Facility:[facility] Start: 05-01-2024 End: 05-05-2024 Outreach Lab IWONA STEWART MD [facility] Start: 01-23-2024 End: 01-27-2024 ambulatory IWONA STEWART MD Facility:B Start: 01-23-2024 End: 01-27-2024 Outreach Lab IWONA STEWART MD [facility] Start: 10-19-2023 Non-patient / Non-visit Dr. Mclaughlin Work Phone: [facility] Start: 10-19-2023 Non-patient / Non-visit Dr. Mclaughlin Work Phone: [facility] Work Phone: Start: 10-12-2023 End: 10-12-2023 Non-patient / Non-visit Dr. Iwona Stewart Work Phone: [facility] Start: 10-11-2023 Non-patient / Non-visit Dr. Mclaughlin Work Phone: [facility] Start: 10-07-2023 Telephone encounter Gisell Sandy PA-C Work Phone: [facility] Start: 10-05-2023 End: 10-20-2023 Evaluation and management of inpatient Dr. Iwona Stewart Work Phone: [facility]-Transitional Care Unit Start: 09-26-2023 Non-patient / Non-[facility] Start: 09-25-2023 End: 10-05-2023 Evaluation and management of inpatient FAIZAN GASPRE [facility] Start: 09-25-2023 End: 10-05-2023 Evaluation and management of inpatient Amos Nichole MD Work Phone: [facility] Cardiac Vascular Progressive Care Unit PCC 1C Start: 09-25-2023 Non-patient / Non-visit Dr. Mclaughlin Work Phone: [facility] Work Phone: Start: 09-25-2023 Non-patient / Non-visit Dr. Mclaughlin Work Phone: [facility] Start: 09-24-2023 Non-patient / Non-visit Dr. Mclaughlin Work Phone: [facility] Work Phone: Start: 09-24-2023 Non-patient / Non-visit Dr. Mclaughlin Work Phone: [facility] Start: 09-24-2023 Non-patient / Non-visit Dr. Mclaughlin Work Phone: [facility] Start: 09-23-2023 Non-patient / Non-visit Dr. Mclaughlin Work Phone: [facility] Start: 09-23-2023 Non-patient / Non-visit Dr. Mclaughlin Work Phone: [facility] Work Phone: Start: 09-23-2023 End: 09-25-2023 Evaluation and management of inpatient Dr. [facility]wona Stewart [facility] Work [facility] Start: 09-23-2023 End: 09-23-2023 Emergency department patient visit DR GRISELDA AGUILERA DO [facility] Start: 09-21-2023 End: 09-23-2023 Evaluation and management of inpatient ELIZA STUBBS EXECUTIVE CREATIVE DIRECTOR-GAS LEAK INSPECTOR [facility] Start: 09-18-2023 End: 09-21-[address] IWONA SCHREIBER MD Facility:[facility] Start: 09-18-2023 End: 09-21-[address] IWONA SCHREIBER MD [facility] Start: 09-10-2023 ambulatory EBEN KIM PA-C Fac ility:B Start: 08-10-2023 End: 08-10-2023 ambulatory IWONA STEWART MD Facility:[facility] Start: 07-23-[address] IWONA SCHREIBER MD F acility:[facility] Start: 07-23-2023 End: 07-23-[address] IWONA SCHREIBER MD [facility] Start: 07-23-2023 End: 07-23-[address] IWONA SCHREIBER MD Facility:[facility] Start: 06-21-2023 Non-patient / Non-visit Dr. Mclaughlin Work Phone: [facility] Work Phone: Start: 06-21-2023 End: 06-21-[address] Iwona Stewart Work Phone: [facility] Work Phone: Start: 06-21-2023 End: 06-21-[address] Iwona Stewart Work Phone: [facility]-Cardiovascula r Services Work Phone: Start: 06-19-2023 End: 06-19-[address] Iwona Stewart Work Phone: [facility] Work Phone: Start: 05-31-2023 End: 06-04-2023 ambulatory IWONA STEWART MD Facility:[facility] Start: 05-31-2023 End: 06-04-2023 Outreach Lab IWONA STEWART MD [facility] Start: 05-24-2023 Non-patient / Non-visit Dr. Mclaughlin Work Phone: [facility] Work Phone: Start: 05-23-2023 Non-patient / Non-visit Dr. Mclaughlin Work Phone: [facility] Start: 05-23-2023 End: 05-23-[address] Iwona Stewart [facility] Work Phone: Start: 05-14-2023 End: 05-14-[address] Iwona Stewart Work Phone: [facility] Work Phone: Start: 05-14-2023 End: 05-14-[address] Iwona Stewart Work Phone: [facility] Work Phone: Start: 05-08-[address] Iwona Stewart Work Phone: [facility] Work Phone: Start: 04-29-2023 Non-patient / Non-visit Dr. Mclaughlin Work Phone: [facility] Start: 04-29-2023 Non-patient / Non-visit Dr. Mclaughlin Work Phone: [facility] Work Phone: Start: 04-28-2023 Non-patient / Non-visit Dr. Mclaughlin Work Phone: [facility] Start: 04-27-2023 Non-patient / Non-visit Dr. Mclaughlin Work Phone: [facility] Start: 04-27-2023 Non-patient / Non-visit Dr. Mclaughlin Work Phone: [facility] Start: 04-27-2023 End: 04-29-2023 Evaluation and management of inpatient Dr. Iwona Stewart Work Phone: [facility]-Intensive Care Unit Work Phone: Start: 04-01-2023 End: 04-01-2023 Emergency department patient visit [facility]-Emergency Department Work Phone: Start: 02-07-2023 Refill Ani Mejía APRN.GAS LEAK INSPECTOR Work Phone: [facility] Comment on above: Refill Request Start: 01-15-2023 End: 01-15-2023 ambulatory URIEL PAREDES DO Facility:[facility] Start: 01-15-2023 End: 01-15-2023 Patient encounter procedure Uriel Chet Verito DO Work Phone: [facility] Comment on above: Essential hypertensi on (Primary Dx); Hyperlipidemia LDL goal <70; HFrEF (heart failure with reduced ejection fraction) (HCC); History of cardiac cath; History of echocardiography; History of stress test; History of Holter monitoring; Non-smoker Start: 12-21-2022 Refill Ani Mejía APRN.GAS LEAK INSPECTOR Work Phone: [facility] Comment on above: Refill Request Start: 12-02-2022 End: 12-02-2022 Emergency department patient visit EUSEBIO WASHBURN DO [facility] Start: 08-25-2022 End: 08-25-2022 Patient encounter procedure ALIS KAMARA MD [facility] Start: 08-11-2022 End: 08-11-2022 Patient encounter procedure Eliza Molina DO Work Phone: [facility] [place] Comment on above: Left sided sciatica (Primary Dx) Start: 06-15-2022 Refill Uriel Santos rachel DO Work Phone: [facility] Comment on above: Refill Request Start: 03-24-2022 End: 03-24-2022 ambulatory URIEL VERITO MULLER Facility:[facility] Start: 03-24-2022 End: 03-24-2022 Patient encounter procedure Uriel Paredes DO Work Phone: [facility] Comment on above: Dizziness (Primary D x); Essential hypertension; Mixed hyperlipidemia; Coronary artery disease involving [place] coronary artery of [place] heart without angina pectoris; Cardiomyopathy, unspecified type (HCC); History of stress test; History of cardiac cath; Non-smoker Start: 11-21-2021 Refill Ani Mejía EXECUTIVE CREATIVE DIRECTOR.GAS LEAK INSPECTOR Work Phone: [facility] Comment on above: Refill Request Start: 08-26-2021 Refill Ani Mejía EXECUTIVE CREATIVE DIRECTOR.GAS LEAK INSPECTOR Work Phone: [facility] Comment on above: Refill Request [...] i&r Jaclyn Morejon MD Work Phone: Start: 10-05-2023 Comprehensive metabo [...] ast 12 lds trcg only w/o i&r aJclyn Morejon MD Work Phone: Start: 10-03-2023 Thoracentesis [...] ches t single view Ashleigh Perkins [employer] EXECUTIVE CREATIVE DIRECTOR - GAS LEAK INSPECTOR Work Phone: Start: 10-02-2023 Cardioversion electi ve arrhythmia external Ashleigh Perkins [employer] EXECUTIVE CREATIVE DIRECTOR - GAS LEAK INSPECTOR Work Phone: Start: 10-02-2023 Ecg routine ecg [...] ches t single view Elisa E Guilda EXECUTIVE CREATIVE DIRECTOR - GAS LEAK INSPECTOR Work Phone: Start: 09-28-2023 Ecg routine ecg w/le ast 12 lds trcg only w/o i&r Elisa Goldstein EXECUTIVE CREATIVE DIRECTOR - GAS LEAK INSPECTOR Work Phone: Start: 09-28-2023 Calcium ionized Jaclyn Morejon MD Work Phone: Start: 09-27-2023 Comprehensive metabo lic panel Jaclyn Morejon MD Work Phone: Start: 09-27-2023 Ecg routine ecg w/le ast 12 lds trcg only w/o i&r Amos Nichole MD Work Phone: Start: 09-27-2023 Ecg routine ecg w/le ast 12 lds trcg only w/o i&r Elisa Goldstein EXECUTIVE CREATIVE DIRECTOR - GAS LEAK INSPECTOR Work Phone: Start: 09-27-2023 Radiologic exam ches t single view Elisa Goldstein EXECUTIVE CREATIVE DIRECTOR - GAS LEAK INSPECTOR Work Phone: Start: 09-27-2023 Ecg routine ecg w/le ast 12 lds trcg only w/o i&r Jaclyn Morejon MD Work Phone: Start: 09-27-2023 Comprehensive metabo lic panel Jaclyn Morejon MD Work Phone: Start: 09-26-2023 OXYGEN THERAPY Mark Amb lyn EXECUTIVE CREATIVE DIRECTOR - CORPORATE COMPLIANCE OFFICER Start: 09-26-2023 Radiologic exam ches t single [...] Start: 09-26-2023 OXYGEN THERAPY Mark Amb lyn EXECUTIVE CREATIVE DIRECTOR - CORPORATE COMPLIANCE OFFICER Start: 09-26-2023 Cardiac catheterizat ion study Ashleigh Perkins [employer] EXECUTIVE CREATIVE DIRECTOR - GAS LEAK INSPECTOR Work Phone: Start: 09-26-2023 INTRAVASCULAR LITHOTRIPSY Ashleigh Perkins [employer] EXECUTIVE CREATIVE DIRECTOR - GAS LEAK INSPECTOR Work Phone: Start: 09-26-2023 Percutaneous coronar y intervention Ashleigh Perkins [employer] EXECUTIVE CREATIVE DIRECTOR - GAS LEAK INSPECTOR Work Phone: Start: 09-26-2023 End: 09-26-2023 POCT ACT Amos Nichole MD Work Phone: Start: 09-26-2023 Comprehensive metabo lic panel Ashleigh [employer] EXECUTIVE CREATIVE DIRECTOR - GAS LEAK INSPECTOR Work Phone: Start: 09-25-2023 Thromboplastin time partial plasma/whole blood Ashleigh Perkins [employer] EXECUTIVE CREATIVE DIRECTOR - GAS LEAK INSPECTOR Work Phone: Start: 09-25-2023 Blood count complete automated Ashleigh Perkins [employer] EXECUTIVE CREATIVE DIRECTOR - GAS LEAK INSPECTOR Work Phone: Start: 09-24-[address] [...] Prosthetic arthropla sty of the hip ALIS KAMARA MD Prosthetic arthropla sty of the hip DR IWONA SCHREIBER MD Comment on above: RIGHT Plan of Treatment Date Care Activity Detail Author Start: 10-04-2026 Diabetes Screening Diabetes Screenin g [facility] Start: 11-05-2024 Evaluation of diagno stic study results [facility] Start: 10-04-2024 Creatinine measurement [facility] Start: 10-04-2024 Potassium measurement [facility] Start: 09-29-2024 Echocardiography Echocardiogram [facility] Start: 09-29-2024 [facility] Start: 09-28-2024 Thyroid stimulating hormone measurement [facility] Start: 06-25-2024 Patient discharge [facility] Start: 06-23-2024 Referral to horse race timer [facility] Start: 06-23-2024 Following clinical p athway protocol [facility] Start: 06-23-2024 Assessment of risk o f venous thromboembolism [facility] Start: 06-23-2024 Fall prevention [facility] Start: 06-23-2024 Inhalation therapy procedure [facility] Start: 06-23-2024 Insertion of cathete r into peripheral vein [facility] Start: 06-23-2024 Introduction of urin pepper catheter [facility] Start: 06-23-2024 Measuring intake and output [facility] Start: 06-23-2024 Oxygen therapy [facility] Start: 06-23-2024 Providing care accor ding to standard [facility] Start: 06-23-2024 Provision of activit y privileges [facility] Start: 06-23-2024 Referral to occupati onal therapist [facility] Start: 06-23-2024 Referral to service [facility] Start: 06-23-2024 [facility] Start: 06-23-2024 Admission procedure [facility] Start: 06-18-2024 Advance Directive Discussion Advance Directive Discussion [facility] Start: 02-17-2024 Covid-19 Vaccine () Covid-[address] Vacc[address] () [facility] Start: 02-17-2024 Influenza vaccination [facility] Start: 02-17-2024 [facility] Start: 01-16-2024 BP CONTROLLED (<130/80) BP CONTROLLE D (<130/80) [facility] Start: 10-20-2023 Patient discharge [facility] Start: 10-19-2023 Development of care plan [facility] Start: 10-19-2023 [facility] Start: 10-17-2023 Referral to service [facility] Start: 10-10-2023 Referral to gastroenterology service [facility] Start: 10-07-2023 [facility] Start: 10-06-2023 Developing a treatme nt plan [facility] Start: 10-06-2023 Development of care plan [facility] Start: 10-06-2023 [facility] Start: 10-06-2023 Following clinical p athway protocol [facility] Start: 10-05-2023 Provision of activit y privileges [facility] Start: 10-05-2023 [facility] Start: 10-05-2023 Wound care [facility] Start: 10-05-2023 Admission procedure [facility] Start: 10-05-2023 Measuring intake and output [facility] Start: 10-05-2023 Patient referral to dietitian [facility] Start: 10-05-2023 Referral to occupati onal therapist [facility] Start: 10-05-2023 Referral to service [facility] Start: 10-05-2023 Vital signs measurements [facility] Start: 10-05-2023 End: 10-05-2023 [facility] Start: 09-25-2023 [facility] Start: 09-25-2023 [facility] Start: 09-25-2023 Patient discharge [facility] Start: 09-24-2023 Physiotherapy of chest [facility] Start: 09-24-2023 Bacteria identified in Urine by Culture [facility] Start: 09-24-2023 Patient referral [facility] Work Phone: Start: 09-24-2023 Continuous pulse oximetry [facility] Start: 09-24-2023 Dual pressure sponta neous ventilation support [facility] Start: 09-24-2023 Notification of physician [facility] Start: 09-24-2023 Provision of activit y privileges [facility] Start: 09-24-2023 Pulse taking [facility] Start: 09-24-2023 Taking patient vital signs [facility] Start: 09-24-2023 Wound care [facility] Start: 09-24-2023 [facility] Start: 09-23-2023 Catheterization of vein [facility] Start: 09-23-2023 Medication not administered [facility] Start: 09-23-2023 [facility] Start: 09-23-2023 Consultation for treatment [facility] Start: 09-23-2023 Ambulation without limitation [facility] Start: 09-23-2023 Assessment of risk o f venous thromboembolism [facility] Start: 09-23-2023 Cardiac monitoring [facility] Start: 09-23-2023 Incentive spirometry [facility] Start: 09-23-2023 Insertion of cathete r into peripheral vein [facility] Start: 09-23-2023 Oxygen therapy [facility] Start: 09-23-2023 Providing care accor ding to standard [facility] Start: 09-23-2023 Referral to horse race timer [facility] Start: 09-23-2023 Referral to occupati onal therapist [facility] Start: 09-23-2023 Referral to service [facility] Start: 09-23-2023 [facility] Start: 09-23-2023 Admission procedure [facility] Start: 09-23-2023 Following clinical p athway protocol [facility] Start: 06-18-2023 Medicare Advantage A nnual Wellness Visit Medicare Advantage Annual Wellness Visit [facility] Start: 06-18-2023 [facility] Start: 04-29-2023 Patient discharge [facility] Start: 04-28-2023 Care planning and pr oblem solving actions [facility] Start: 04-28-2023 Telepractice consultation [facility] Start: 04-27-2023 Bedrest [facility] Start: 04-27-2023 Care regimes management [facility] Start: 04-27-2023 Consultation [facility] Start: 04-27-2023 Incentive spirometry [facility] Start: 04-27-2023 Insertion of cathete r into peripheral vein [facility] Start: 04-27-2023 Measuring intake and output [facility] Start: 04-27-2023 Notification of physician [facility] Start: 04-27-2023 Providing care accor ding to standard [facility] Start: 04-27-2023 Referral to horse race timer [facility] Start: 04-27-2023 Referral to occupati onal therapist [facility] Start: 04-27-2023 Referral to service [facility] Start: 04-27-2023 Speech therapy assessment [facility] Start: 04-27-2023 Vital signs measurements [facility] Start: 04-27-2023 [facility] Start: 04-27-2023 Following clinical p athway protocol [facility] Start: 04-27-2023 End: 04-27-2023 [facility] Start: 04-27-2023 Hospital admission, emergency, from emergency room, medical nature [facility] Start: 04-27-2023 Admission procedure [facility] Start: 04-27-2023 Bleeding precautions [facility] Start: 04-27-2023 Consultation [facility] Start: 04-27-2023 Oxygen therapy [facility] Start: 04-01-2023 [facility] Start: 03-24-2023 BP CONTROLLED (<130/80) BP CONTROLLE D (<130/80) [facility] Start: 02-16-2023 COVID-19 Vaccine ( season) COVID-19 Vaccine ( season) [facility] Start: 02-16-2023 Influenza vaccination INFLUENZA (#1) [facility] Start: 02-16-2023 [facility] Start: 06-18-2022 ADVANCE DIRECTIVE DISCUSSION ADVANCE DIRECTIVE DISCUSSION [facility] Start: 06-18-2022 DEPRESSION ASSESSMENT DEPRESSION ASS ESSMENT [facility] Start: 02-16-2022 Influenza vaccination [facility] Start: 08-01-2021 COVID-19 VACCINE (3 - Booster for Moderna series) COVID-19 VACCINE (3 - Booster for Moderna series) [facility] Start: 06-18-2021 ADVANCE DIRECTIVE DISCUSSION ADVANCE DIRECTIVE DISCUSSION [facility] Start: 06-18-2021 DEPRESSION ASSESSMENT DEPRESSION ASS ESSMENT [facility] Start: 04-26-2021 COVID-19 VACCINE (3 - Booster for Moderna series) COVID-19 VACCINE (3 - Booster for Moderna series) [facility] Start: 04-26-2021 COVID-19 VACCINE (3 - Moderna series) COVID-19 VACCINE (3 - Moderna series) [facility] Start: 02-16-2021 Influenza vaccination INFLUENZA (#1) [facility] Start: 2018 RSV Vaccine (1 - 1-d ose 75+ series) RSV Vaccine (1 - 1-dose 75+ series) [facility] Start: 2008 PNEUMOCOCCAL: 65+ (1 - PCV) PNEUMOCOCCAL: 65+ (1 - PCV) [facility] Start: 2008 PNEUMOVAX AGE 65 AND OVER WITH 5YR LOOKBACK (#1) PNEUMOVAX AGE 65 AND OVER WITH 5YR LOOKBACK (#1) [facility] Start: 2003 RSV Immunization age d 60 or older (1 - 1-dose 60+ series) RSV Immunization aged 60 or older (1 - 1-dose 60+ series) [facility] Start: 2003 [facility] Start: 1993 Pneumococcal Vaccine : 50+ (1 of 1 - PCV) Pneumococcal Vaccine: 50+ (1 of 1 - PCV) [facility] Start: 1993 SHINGRIX VACCINE (1 of 2) PAYNE GRIX VACCINE (1 of 2) [facility] Start: 1993 Zoster Vaccines (1 of 2) Zoste r Vaccines (1 of 2) [facility] Start: 1993 [facility] Start: 1988 DIABETES SCREEN DIABETES SCREEN [facility] Start: 1962 DTaP/Tdap/Td Vaccine s (1 - Tdap) DTaP/Tdap/Td Vaccines (1 - Tdap) [facility] Start: [address] [facility] Start: 1962 [facility] Start: 1961 ANNUAL PCP TEAM CHANGE MANAGEMENT ANALYST ADRIA DISEASE VISIT ANNUAL PCP TEAM CHRONIC DISEASE VISIT [facility] Start: 1961 Anxiety Screening Anxiety Screening [facility] Start: 1961 BP CONTROLLED (<130/80) BP CONTROLLE D (<130/80) [facility] Start: 1961 Depression Screening Depression Scre ening [facility] Start: 1961 Hepatitis B surface antibody level LDL CHOLESTEROL [facility] Start: 1961 HEPATITIS C SCREENING HEPATITIS C SC REENING [facility] Start: 1955 Adult depression scr eening assessment DEPRESSION SCREENING [facility] Start: 1955 [facility] Start: 1949 Pneumococcal Vaccine : 65+ Years (1 of 2 - PCV) Pneumococcal Vaccine: 65+ Years (1 of 2 - PCV) [facility] Start: 1949 [facility] Start: 1943 Lipid panel [facility] 24 Hour ECG [facility] End: 10-03-2023 Aerobic and Anaerobic Culture with Stain [facility] Work Phone: Alanine aminotransfe rase [Enzymatic activity/volume] in Serum or Plasma [facility] Albumin [Mass/volume ] in Serum or Plasma [facility] Alkaline phosphatase [Enzymatic activity/volume] in Serum or Plasma [facility] Anion gap measurement [facility] Aspartate aminotrans ferase [Enzymatic activity/volume] in Serum or Plasma [facility] Bacteria identified in Unspecified specimen by Aerobe culture [facility] Bacteria identified in Unspecified specimen by Anaerobe culture [facility] Bilirubin, total measurement [facility] BUN/Creatinine ratio [facility] Calcium [Mass/volume ] in Serum or Plasma [facility] Carbon dioxide, tota l [Moles/volume] in Serum or Plasma [facility] Cardiac event recording [facility] CBC W Auto Different ial panel - Blood [facility] Chloride [Moles/volu me] in Serum or Plasma [facility] Comprehensive metabo lic 1999 panel - Serum or Plasma [facility] Creatinine [Moles/vo lume] in Serum or Plasma [facility] ECG 12 lead [facility] Work Phone: ECG COMPLETE ECG COMPLETE ECG Routine Essential hypertension 03/24/2022 7:08 AM EDT [facility] Work Phone: ECG COMPLETE ECG COMPLETE ECG Routine Essential hypertension 01/15/2023 1:53 PM EDT [facility] Work Phone: Ferritin [Mass/volum e] in Serum or Plasma [facility] Glucose [Mass/volume ] in Serum or Plasma [facility] Iron and Iron bindin g capacity panel - Serum or Plasma [facility] Lipid 1996 panel - S stan or Plasma [facility] Magnesium [Mass/volu me] in Serum or Plasma [facility] Measurement of renal function [facility] NM Heart Views W str ess and W radionuclide IV [facility] Patient Education Cellulitis Dc [facility] Work Phone: Patient referral [facility] Work Phone: Potassium [Moles/vol ume] in Serum or Plasma [facility] Prostate specific an tigen measurement [facility] Serum inorganic phos phate measurement [facility] Sodium [Moles/volume ] in Serum or Plasma [facility] Thyroid stimulating hormone measurement [facility] Total protein measurement [facility] Urea nitrogen [Mass/volume] in Serum or Plasma [facility] [place] Carotid arteries [facility] Vitamin D, 25-hydrox y measurement [facility] End: 09-17-2025 XR Chest PA and Lateral XR CHEST 2V FRONTAL/LAT Radiology Routine Subacute cough 1 Occurrences starting 08/18/2024 until 09/17/2025 [facility] Work Phone: Comment on above: 1 Occurrences starti ng 08/18/2024 until 09/17/2025 XR Chest PA and Lateral XR CHEST 2V FRONTAL/LAT Radiology Routine Subacute cough 08/18/2024 2:07 PM EST [facility] Immunizations Immunization Date Immunization Notes Care Provider Fa cility 03-01-2021 SARS-CoV-2 (COVID-19 ) mRNA-1273 vaccine IWONA STEWART MD [facility] Comment on above: Result Comment: 2022: [id number] 02-01-2021 SARS-CoV-2 (COVID-19 ) mRNA-1273 vaccine IWONA STEWART MD [facility] Comment on above: Result Comment: 2022: [id number] Payers Date Payer Category Payer Self-pay 2019 Medicare HUMANA MEDICARE HU[employer]NA MEDICARE PPO [id number] 2019-Present [phone] [place] [address] PPO [id number] 2019 Medicare [id number] 2019 Medicare (Managed Care) HUMANA M EDICARE [id number] 2019 Medicare [id number] 2008 Medicare [id number] 1943 Unknown [id number] 2.16.840.1.622118.3.579. 2.627 1943 Unknown [id number] 2.16.840.1.494026.3.579. 2.62 1943 Unknown [id number] 2.16.840.1.306778.3.579. 2.62 1943 Unknown [id number] 2.16.840.1.259990.3.579. 2.62 1943 Unknown [id number] 2.16.840.1.869996.3.579. 2.62 1943 Unknown [id number] 2.16.840.1.776752.3.579. 2.62 1943 Unknown [id number] 2.16.840.1.871423.3.579. 2.62 1943 Unknown [id number] 2.16.840.1.115775.3.579. 2.62 1943 Unknown [id number] 2.16.840.1.482403.3.579. 2.627 1943 Unknown [id number] 2.16.840.1.373237.3.579. 2.627 Unknown [id number] Unknown [id number] 2.16.840.1.465765.3.579. 2.462 Unknown [id number] 2.16.840.1.993495.3.579. 2.462 Unknown [id number] 2.16.840.1.541602.3.579. 2.462 Unknown [id number] 2.16.840.1.952267.3.579. 2.462 Unknown [id number] 2.16.840.1.509079.3.579. 2.462 Unknown [id number] 2.16.840.1.237769.3.579. 2.462 Unknown [id number] 2.16.840.1.276361.3.579. 2.462 Unknown [id number] 2.16.840.1.987957.3.579. 2.462 Unknown [id number] 2.16.840.1.659726.3.579. 2.462 Unknown [id number] 2.16.840.1.628899.3.579. 2.462 Unknown [id number] 2.16.840.1.758781.3.579. 2.462 Unknown [id number] 2.16.840.1.861699.3.579. 2.462 Unknown [id number] 2.16.840.1.085947.3.579. 2.462 Unknown [id number] 2.16.840.1.462463.3.579. 2.462 Unknown [id number] 2.16.840.1.810050.3.579. 2.462 Unknown [id number] 2.16.840.1.954174.3.579. 2.462 Unknown [id number] 2.16.840.1.343319.3.579. 2.462 Unknown [id number] 2.16.840.1.150387.3.579. 2.462 Unknown [id number] 2.16.840.1.691270.3.579. 2.462 Unknown [id number] 2.16.840.1.806555.3.579. 2.462 Social History Date Type Detail Facility Start: 09-10-2019 End: 02-10-2025 Tobacco smoking status NHIS Never smoked tobacco [facility] Start: 09-10-2019 End: 08-18-2024 Tobacco use and exposure Smokeless tobacco non-user [facility] Start: 04-20-2021 End: 08-18-2024 Alcohol intake Ex-drinker (finding) [facility] Start: 1945 Sex Assigned At Not on file C [facility] Start: 03-14-2022 End: 03-24-2022 Exposure to SARS-CoV-2 (event) Not sure [facility] Sex Assigned At Sex [facility] Start: 05-25-2020 End: 01-15-2023 History of Social function [facility] Start: 05-25-2020 End: 01-15-[address] [facility] Adult Depression Screening Assessment [address] [facility] Start: 04-01-2023 End: 10-05-2023 Tobacco smoking status NHIS Unknown if ever smoked [facility] Start: 1945 Sex Assigned At Male [facility] Start: 10-04-2023 Alcohol intake Lifetime non-d shlomo (finding) [employer] Has the [employer], [employer], imbookin ([place]), or water [employer] threatened to shut off services in your home in past 12Mo No Element ID How often to you hav e a drink containing alcohol? Never Element ID (I/We) worried whemagy er (my/our) food would run out before (I/we) got money to buy more. Never true [employer] Start: 09-25-2023 Gender identity Identifies as male gender (finding) [facility] Start: 09-05-2024 Sex Male (finding) [facility] Sexual Orientation Heterosexual (finding) [facility] [facility] NEGATED: Highlighted rowStart: NINF History of tobacco use Passive smoker [facility] Medical Equipment Procedure Code Equipment Code Equipment Origin al Text Equipment Identifier Dates Colonoscopy Ligation clip, metallic ()[id number] FDA Start: 10-12-2023 Colonoscopy Ligation clip, metallic ()[id number] FDA Start: 10-12-2023 [id number] Start: 09-26-2023 [id number] Start: 09-26-2023 Goals Date Patient Goal Desired Activity /State Functional Status Date Assessment Result Facility 06-25-2024 Functional status Chair;Bathroom Privileg e [facility] Work Phone: 10-20-2023 Functional status Chair [facility] Work Phone: 09-25-2023 Functional status Activity Abili ty With Assist of 2 [facility] Work Phone: 09-23-2023 Functional [facility] Functional Status Standard Safety ID band on [facility] 09-23-2023 Functional Status Room check performed [facility] 09-23-2023 Functional Status [place] [facility] 09-22-2023 Functional Status 7pm-7am [facility]-22-2023 Functional Status [place] [facility] [facility] 09-22-2023 Functional Status Supervised [place] ss[place] 09-22-2023 Functional Status [place] ss[facility] 09-22-2023 Functional Status [place] ssddany[facility] 09-21-2023 Functional Status [place] ss[place] 09-21-2023 Functional Status Front wheeled walker [facility] 09-21-2023 Functional Status Room check performed [facility] 09-21-2023 Functional Status [place] ss[place] [facility] 09-21-2023 Functional Status Mod A [place] ssdtal [facility] 09-21-2023 Functional Status [facility] Functional Status [facility] Functional Status Gloria Ho spidanyelle [facility] [place] 09-20-2023 Functional Status Gloria Ho spital [facility] [place] 09-20-2023 Functional Status Gloria Ho spital [facility] [place] 09-20-2023 Functional Status Mod A [place] [facility] 09-20-2023 Functional Status [place] [facility] 09-20-2023 Functional Status Gloria Ho sabrina [facility] 09-20-2023 Functional Status Gloria Ho [facility] 09-20-2023 Functional Status Gloria Arciniega [facility] 09-19-2023 Functional Status Gloria Arciniega [facility] 09-19-2023 Functional Status Gloria Arciniega [facility] 09-19-2023 Functional Status Gloria Arciniega [facility] 09-19-2023 Functional Status Gloria Arciniega [facility] 09-19-2023 Functional Status Multilevel anoop e, 1st floor bedroom, 1st floor bathroom [facility] 09-18-2023 Functional Status Gloria Arciniega [facility] 09-18-2023 Functional Status Gloria Arciniega [facility] 09-18-2023 Functional Status foam pillow, ice on [facility] 09-18-2023 Functional [facility] Functional status Ambulates [facility] Work Phone: 12-02-2022 Functional Status Room check performed [facility] Mental Status Date Assessment Result Facility 06-25-2024 Cognitive function Voice/Name [facility] Work Phone: 10-20-2023 Cognitive function Voice/Name [facility] Work Phone: 10-15-2023 Cognitive function Appropriate;[facility] Work Phone: 09-25-2023 Cognitive function Appropriate;[facility] Work Phone: 09-23-2023 Mental Status Orientation Oriented x 4 [facility] 09-23-2023 Mental Status Oriented x 4 [facility] 09-23-2023 Mental Status [facility] 09-22-2023 Mental Status [facility] 09-22-2023 Mental Status [facility] 09-21-2023 Mental Status Orientation Asse ssment Oriented x 4 [facility] 09-21-2023 Mental Status Oriented x 4 [facility] 09-21-2023 Mental Status [facility] 09-20-2023 Mental Status [facility] 09-20-2023 Mental Status [facility] 04-29-2023 Cognitive function Voice/Name [facility] Work Phone: 04-27-2023 Cognitive function Voice/Name [facility] Work Phone: 12-02-2022 Mental Status Oriented x 4 [facility] Clinical Notes 08-26-2021 to 04-27-2025 Note Date & Type Note Facility 04-27-2025 Note HNO ID: [id number] Author: KMI PRATT APRN.GAS LEAK INSPECTOR Service: ? Author Type: Nurse Practitioner Type: Progress Notes Filed: 04/27/2025 14:12 Note Text: [facility] DANYELLN Ramo Cruz is [...] membrane and external ear normal. Mouth/Throat: Lips: [place]. Mouth: Mucous membranes are moist. Pharynx: Posterior [...] symptoms persist or worsen. and Recording using [employer] software for draft documentation of the visit was discussed with the patient/authorized retail sales representative; all questions welcomed and answered. Patient/authorized retail sales representative agreed to proceed Differential Diagnoses - Acute bronchitis, viral illness is more likely for the following reason(s): Exam, suggested by HANDP - Pneumonia is less likely for the following reason(s): Exam, HANDP not suggestive Disposition The patient was discharged. Procedures [facility] 02-27-2025 Progress note [facility] 02-27-2025 Progress note Note Date/Time February 27, 2025 3:39pm [facility] [place] [address] [facility] [place] [address] OFFICE VISIT Date of Service: 02/27/25 MR#: [id number] Acct: [id number] Name: EBEN CRUZ Rep #: [id number] : 1945 Provider: Dr. Holden Lacey MD Age/Sex: 79/M Location: [facility] Status: Signed HPI HPI History of Present Illness Details: The patient presents for evaluation of ischemic cardiomyopathy and symptomatic bradycardia. The patient is an 79-year-old male with a history of ischemic cardiomyopathy, status post ozf-IO-oqmmmsemr myocardial infarction (NSTEMI) in September 2023. His [...] air Intake Visit Reasons: Congestive heart failure Layboy Tender Required: No Accompanied by: Daughter Is patient [...] a high risk for thromboembolicevents, with a CWB2TD5-SMPq score of 5 (C=1 for CHF, H=1 [...] applicable) CC: Dr. Chelsea Singh MD ~ [facility] Work Phone: 1(478) 856-873705-21-2025 Evaluation note* Diagnosis Onset Date Resolution Status [...] 9:45am Essential hypertension noneactive Au 2024 9:45am [facility] Work Phone: 1(260) 173-803705-21-2025 Evaluation note* Diagnosis Onset Date Resolution Status [...] noneactive February 10 9:45am Essential hypertension noneactive [facility] 2024 9:45am Iron deficiency anemia noneactive [facility] 2024 9:45am Paroxysmal atrial fibrillation noneactive February 10 9:45am GERD (gastroesophageal reflux disease) noneactive February 10 9:45am History of CVA (cerebrovascular accident) noneactive [facility] 2024 9:45am [facility] Work Phone: [phone] Evaluation note* Diagnosis Onset Date Resolution Status [...] 10, 2025 9:45am Immunization declined noneactive Jan [facility] 2024 9:45am Screening for colon cancer noneactive February 10 9:45am Cerumen impaction noneactive February 10, 2025 9:45am Establishing care with new doctor, encounter for noneactive February 10, 2025 9:45am CKD (chronic kidney disease) stage 3, GFR 30-59 ml/min noneactive February 10 9:45am Essential hypertension noneactive [facility] 2024 9:45am Iron deficiency anemia noneactive [facility] 2024 9:45am Paroxysmal atrial fibrillation noneactive February 10 9:45am GERD (gastroesophageal reflux disease) noneactive February 10 9:45am History of CVA (cerebrovascular accident) noneactive February 10 9:45am Bradycardia acute February 2:53pm Heart failure with reduced ejection fraction acute Septem christian 2024 2:53pm Atrial fibrillation chronic Septe mber 2024 2:53pm Congestive heart failure noneactive February 27, 2025 2:53pm [facility] Work Phone: 1(712) 911-611803-03-2025 Instructions* Patient Instructions* Marissa Sorto APRN.GAS LEAK INSPECTOR - 08/18/2024 2:09 PM EST GENERAL INFORMATION: [...] stiffness, or feel confused. documented in this encounterSt. [facility] History of Present illness Narrative* Justice Quiros [...] PATIENT PRESENTS WITH AN IMPLANTABLE OR ATTACHED ADULT EDUCATOR: No RADIOLOGY DEPARTMENT: General X-ray: Exam(s) Completed: Chest X-Ray PERIPHERAL IV DATA: Not applicable SIGNED BY: RT Melissa(R) August 18, 2024 1:34 PM documented in this encounterSt. Mary'S Medical Center03-03-2025 NoteHNO ID: [id number] Author: JUSTICE QUIROS RT(R) Service: ? Author [...] PATIENT PRESENTS WITH AN IMPLANTABLE OR ATTACHED ADULT EDUCATOR: No RADIOLOGY DEPARTMENT: General X-ray: Exam(s) Completed: Chest X-Ray PERIPHERAL IV DATA: Not applicable SIGNED BY: RT Melissa(R) August 18, 2024 1:34 [facility]03-03-2025 NoteHNO ID: [id number] Author: MARISSA SORTO APRN.GAS LEAK INSPECTOR Service: ? Author Type: Nurse Practitioner Type: [...] wheezing. PAST MEDICAL HISTORY Diagnosis Date A-fib ([facility]) CAD (coronary artery disease) Cardiomyopathy ([facility]) Chronic systolic heart failure ([facility]) CVA (cerebral vascular accident) ([facility]) 04/2023 right parietal CVA Essential hypertension HFrEF (heart failure with reduced ejection fraction) ([facility]) NYHA class lll History of cardiac cath [...] Mixed hyperlipidemia NSTEMI (non-ST elevated myocardial infarction) ([facility]) 09/23/2023 Stented coronary artery 09/26/2023 NORIS to RCA. NORIS to LM and NORIS to LAD ACTIVE PROBLEM LIST Cardiomyopathy ([facility]) History of Echocardiography Cad (Coronary Artery Disease) History of Cardiac Cath History of Stress Test Mixed Hyperlipidemia Essential Hypertension Non-Smoker Sob (Shortness of Breath) Dizziness History of Holter Monitoring Hfref (Heart Failure With Reduced Ejection Fraction) ([facility]) Nstemi (Non-St Elevated Myocardial Infarction) ([facility]) A-Fib ([facility]) Current Outpatient Medications Medication Sig Dispense [...] SpO2 95% Physical Exam (more content not included)...[facility]03-03-2025 History of Present illness Narrative* Marissa Sorto, EXECUTIVE CREATIVE DIRECTOR.GAS LEAK INSPECTOR - 08/18/2024 1:13 PM EST Eben Cruz [...] wheezing. PAST MEDICAL HISTORY Diagnosis Date A-fib ([facility]) CAD (coronary artery disease) Cardiomyopathy ([facility]) Chronic systolic heart failure ([facility]) CVA (cerebral vascular accident) ([facility]) 04/2023 right parietal CVA Essential hypertension HFrEF (heart failure with reduced ejection fraction) ([facility]) NYHA class lll History of cardiac cath [...] Mixed hyperlipidemia NSTEMI (non-ST elevated myocardial infarction) ([facility]) 09/23/2023 Stented coronary artery 09/26/2023 NORIS to RCA. NORIS to LM and NORIS to LAD ACTIVE PROBLEM LIST Cardiomyopathy ([facility]) History of Echocardiography Cad (Coronary Artery Disease) History of Cardiac Cath History of Stress Test Mixed Hyperlipidemia Essential Hypertension Non-Smoker Sob (Shortness of Breath) Dizziness History of Holter Monitoring Hfref (Heart Failure With Reduced Ejection Fraction) ([facility]) Nstemi (Non-St Elevated Myocardial Infarction) ([facility]) A-Fib ([facility]) Current Outpatient Medications Medication Sig Dispense [...] APRN.GELY This note was partially generated using [employer] voice recognition system, and there may be some incorrect words, spellings, and punctuation that were not noted in checking the note before saving. documented in this encounterSt. Mary'S Medical Center03-03-2025 Evaluation note* Diagnosis Onset Date Resolution Status [...] 2023 chroni c November 05, 2024 8:31am [facility] Work Phone: 1(444) 977-296901-08-2025 [facility] Medical Records Department [address] [place] [address] Discharge Summary 06/25/24 1233 MR#: [id number] Acct: [id number] Name: EBEN CRUZ Rep #: [id number] : 1945 79 From: Chet Edmonds MD PCP: Care Physician,No Primary Status:ADM ZOË Location: [place] [address] Providers Date of Admission: 06/23/24 Date of [...] GI: soft, normoactive bowel (more content not included)...[facility]01-06-2025 Evaluation note* Diagnosis Onset Date Resolution Status Admit Date CAD (coronary artery disease) acute June 23, 2024 4:56pm Heart failure with reduced ejection fraction acute June 23 4:56pm Hypercholesterolemia acute pepper2024 4:56pm salvage determiner current use of anticoagulant therapy acute June [...] 2023 chroni c August 18, 2024 9:54am [facility] Work Phone: 1(112) 780-804511-15-2024 Note. MICRO - Microbiology PROCEDURE: Urine Culture [*1] SOURCE: Urine, Clean Catch BODY SITE: COLLECTED DATE/TIME: 05/01/2024 17:28 EST RECEIVED DATE/TIME: 05/01/2024 19:21 EST START DATE/TIME: 05/01/2024 19:21 EST FREE TEXT SOURCE: FINAL REPORTS Final Report [] Verified Date/Time/Personnel: 05/02/2024 14:27 EST 10,000 - 50,000 cfu/ml Mixed growth consistent with normal urogenital donny. Performing Locations *1: This test was performed at: [facility], [address] [place] [address], [address]- , [facility]05-02-2024 Discharge summary Author David Palmer [facility] October 18, 2023 4:07pm Note Date/Time October 17, 2023 9:05pm [facility] Medical Records Department [address] [place] [address] Discharge Summary 10/17/232103 MR#: [id number] Acct: [id number] Name: EBEN CRUZ Rep #:[id number] : 1945 78 From: David Palmer MD PCP: Dr. Iwona Stewart MD Status:ADM IN Location: [facility] TCU19-1 Providers Date of Admission: 10/05/23 Primary [...] Code(s): I25.10 - Atherosclerotic heart disease of [place] coronary artery without angina pectoris (4) Acute [...] Resected and retrieved. Clips were placed. Clip lead installer: [facility]. - Three non-bleeding colonic angiodysplastic lesions. Treated with a heater probe. - One 3 mm polyp in the sigmoid colon, removed with a jumbo cold forceps. Resected and retrieved. Treated with a heater probe. Discharge home alone 10/21/2023, [facility] PT/OT/SN. Physical Exam Const alert General Appearance: [...] pain Additional Instructions: Discharge home alone 10/21/2023, [facility] PT/OT/SN. Please Follow Up With: [facility] [address] [facility] When: As scheduled. Meaningful Use Info Meaningful Use Meaningful Use Diagnoses (Choose all that apply): AMI AMI/Post PCI/Angioplasty Aspirin given w/in 24hrs of arrival?: Yes ASA at discharge?: Yes Statins at discharge?: Yes Edel/ARB at discharge?: No Reason Edel/ARB not ordered:: Not indicated Beta Melissa at discharge?: Yes Done w/ Acute AL measure.: Yes Documented LVEF (%): 15 Ischemic [...] Instructions / Restrictions: Discharge home alone 10/21/2023, [facility] PT/OT/SN. Discharge Orders/Prescriptions Prescriptions: New furosemide 40 [...] MD; Dr. David Palmer MD ~* Signed [facility] Work Phone: 1(334) 355-998804-25-2024 Consult note Author Jose Friend [facility] October 11, 2023 6:12pm Note Date/Time October 11, 2023 6:0 7pm [facility] Medical Records Department [address] [place] [address] Consultation - GI 10/11/23 1803 MR#: [id number] Acct: [id number] Name: EBEN CRUZ Rep #:[id number] : 1945 78 From: Jose Friend DO PCP: Dr. Iwona Stewart MD Status:ADM IN Location: TCU U19-1 HPI Consult Data Date of Consult: 10/11/23 HPI Narrative Reason for Consultation: Anemia and fecal occult positive stools HPI Narrative: EBEN CRUZ, is a 78 M who presented as a direct transfer from [facility] for an NSTEMI on 09/23/2023. [facility] replacement with Dr. Schreiber. The procedure was noted to be fairly complicated and required wound VAC placement. 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 Skilled rehab was recommended for discharge and the patient was in the process of transitioning to the [facility] TCU on 09/22/2023 however on the [...] would like to discuss it with tertiary horse race timer. Shortly after he returned from his cardiac [...] He was transferred for complex PCI at [facility]. Dr. Nichole performed NORIS x 3 [...] never having a colonoscopy in the past. [facility] Medical History (Updated 10/05/23 @ 20:48 by [...] been ranging around 9-9.9. Prior to his AL his hemoglobin was 14. He is on [...] of 3. Charges/Coding Visit Charges Inpatient E&M: 78602 SNF Init L2 10/11/23 8126 <Electronically signed by Jose Friend DO> Cosigner Signature (if applicable): CC: Dr. Iwona Stewart MD; Dr. David Palmer MD~ Signed [facility] Work Phone: 1(760) 409-546204-24-2024 History and physical note Author David Spencer [facility] October 10, 2023 5:13pm Note Date/Time October 05, 2023 8:4 9pm [facility] Medical Records Department [address] [place] [address] History & Physical Exam 10/05/232038 MR#: [id number] Acct: [id number] Name: EBEN CRUZ Rep #:[id number] : 1945 78 From: David Palmer MD PCP: Dr. Iwona Stewart MD Status:ADM IN Location: [place] [address] HPI - General General Date of Admission: 10/05/23 Date of Service: 10/08/23 Chief Complaint: Here for rehabilitation. HPI Narrative EBEN CRUZ, is a 78 Male who presents with followin09/18/2023 Dr. Schreiber performed left total hip arthroplasty, wound VAC required. [facility]/23/[facility] SOB, elevated d-dimer, CTA chest negative pulmonary embolism. Elevated troponin, transfer to [facility]. 09/23/2023 Admit to [facility] with NSTEMI. 09/24/2023 Heart cath showed multi vessel CAD, unsuccessful PCI, EF 25%. Transfer to [facility] for complicated PCI. 09/25/2023 Admit to [facility]. Change Plavix to Brilinta. Start Heparin drip, [...] rehabilitation, strengthening, prior to discharge home alone. [facility] Medical History (Updated 10/05/23 @ 20:48 by [...] MD; Dr. David Palmer MD ~* Signed [facility] Work Phone: 1(139) 733-171504-22-2024 Progress note Author David Palmer [facility] October 08, 2023 5:10pm Note Date/Time October 08, 2023 2:3 3pm [facility] Medical Records Department [address] [place] [address] Progress Note - Pharmacy 10/08/23 1429 MR#: [id number] Acct: [id number] Name: EBEN CRUZ Rep #:[id number] : 1945 78 From: Anju Paz PCP: Dr. Iwona Stewart MD Status:ADM IN Location: TCU [facility] Documented by User: Anju Paz 10/08/23 14:52 TCU RX Drug Regimen Review Subjective/Objective Subjective/Objective: Subjective: TCU Admission. 78 YOM presented to ER from [facility] TCU withNSTEMI, transferred to [facility]. Hospitalized for NSTEMI, underwent stents x 3, [...] 10 Mg Capsule PO 10 mg QHS [facility] Administration Empagliflozin 25 mg 10/06/23 10:00 10/08/23 08:22 Empagliflozin 25 Mg Tablet PO 25 mg DAILY CALEB Administration Furosemide 20 mg 10/05/23 20:33 Furosemide 20 Mg Tablet PO DAILY PRN swelling/dyspnea Metoprolol Succinate 50 mg 10/05/23 22:00 10/07/23 20:38 Metoprolol(Xl)Succ 50 Mg Tablet PO 50 mg QHS [facility] Administration Protocol Nystatin 1 applic 10/05/23 22:00 10/08/23 08:26 Nystatin Powder 15gm Bottle TOPICAL 1 applic BID [facility] Administration Protocol Pantoprazole Sodium 40 mg 10/06/23 10:00 10/08/23 08:23 Pantoprazole Sodium 40 Mg Tablet PO 40 mg DAILY [facility] Administration Polyethylene Glycol 17 gm 10/06/23 10:00 10/08/23 08:22 Polyethylene Glycol 3350 17 Gm Packet PO 10/09/23 10:01 17 gm DAILY [facility] Administration Polysaccharide Iron Complex 150 mg 10/06/23 11:00 10/08/23 08:22 Iron Polysaccharide Complex 150 Mg Capsule PO 150 mg DAILY [facility] Administration Senna/Docusate Sodium 1 tablet 10/05/23 20:56 Senna/Docusate Sodium 1 Tablet PO BID PRN PRN Constipation Sodium Chloride 10 - 40 ml 10/06/23 00:39 0.9% Saline Lock 10 Ml Syringe IV UD PRN SALINE FLUSH Spironolactone 12.5 mg 10/06/23 10:00 10/08/23 08:20 Spironolactone 25 Mg Tablet PO 12.5 mg DAILY [facility] Administration Protocol Tamsulosin HCl 0.4 mg 10/08/23 17:30 Tamsulosin Hcl 0.4 Mg Capsule PO DAILY@1730 [facility] Tuberculin PPD 0.1 ml 10/13/23 10:00 Tuberculin,Purif.Prot.Deriv. 50 Tu/Ml Vial ID 10/13/23 10:01 X1 ONE Zinc Sulfate 50 mg 10/06/23 10:00 10/08/23 08:23 Zinc Sulfate 50 Mg Zinc (220 Mg) Oral Capsule PO 50 mg DAILY [facility] Administration Problem List (Updated 10/05/23 @ 20:48 [...] BP (last 107/52), potassium (last 4.1mmol/L), sodium (fuvg057bvkc/L), SOB, S/S of bleeding, hemoglobin (last 10g/dL), [...] by David Palmer MD> CC: ~ Signed [facility] Work Phone: 1(801) 725-172704-21-2024 Telephone encounter Note* Telephone Encounter - Gisell Sandy PA-C - 10/07/2023 12:31 PM EDT Error [facility] Work Phone: 1(558) 430-282904-21-2024 Miscellaneous Notes* Telephone Encounter - Gisell Sandy PA-C - 10/07/2023 12:31 PM EDT Error documented in this [place] [address]-19-2024 Nurse Note* Alis Matute RN - 10/05/2023 5:55 PM EDT Called report to [phone] [facility]. Removed patient's IV per protocol and ensured that his LifeVest, equipment or machinery cleaner, instructions and extra battery went with him. [...] for assist with new placement. Seth Goldstein BORING MACHINE OPERATOR also notified. Cont to monitor. * Marietta Kenny RN - 09/27/2023 3:25 PM EDT Patient helped to chair by physical therapy. His blood pressure was then 78/36. He did state he felt lightheaded. Willy Goldstein BORING MACHINE OPERATOR at bedside. Assisted back to bed and blood pressure now up to 99/52. Family at bedside documented in this [facility]04-19-2024 Miscellaneous Notes* Care Coordination - YAS Horton - 10/05/2023 2:50 PM EDT SW prepress supervisor requested this SW to schedule transport for Pt today to [facility] for 6:00 pm. 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 Notified SNF via CarePort. Notified TCC and bedside nurse via secured chat. Gave sales secretary transport form. Met w/ Pt, introduced [...] patient verbalizes understanding and agreement. Discharge Plan: [facility] SNF. Awaiting LifeVest clinical stability and medical [...] RN 09/26/2023 9:06 AM 09/27/2023 Ashleigh Morrison, EXECUTIVE CREATIVE DIRECTOR - GELY 09/25/2023 1:40 PM Length of Stay (Days): 10 GMLOS: 4.6 * Care Coordination - Soco Palumbo RN - 10/04/2023 11:47 AM EDT Images from the original note were not included. Care Management Progress Note TCC faxed LifeVest order and referral packet to [phone]. TCC spoke with Deven Kumar [phone] auth should take a few hours and [...] RN 10/02/2023 8:01 AM [facility] 10/03/2023 Vivienne Wilson RN 10/01/2023 11:05 AM Arminda Lawler RN 09/26/2023 9:06 AM 09/27/2023 Ashleigh Morrison, EXECUTIVE CREATIVE DIRECTOR - GAS LEAK INSPECTOR 09/25/2023 1:40 PM Length of Stay (Days): [...] needing Lifevest set up. TCC called Vivienne [phone] and Luis [phone] from Lifevest andLM. Lifevest set up pending. Addendum: TCC called [facility] LifeVest [phone]. TCC directed to call Deven [phone]. No answer; LVM. Discharge Plan: [facility] SNF. Awaiting Lifevest set up, clinical stability [...] RN 09/26/2023 9:06 AM 09/27/2023 Ashleigh Morrison, EXECUTIVE CREATIVE DIRECTOR - GAS LEAK INSPECTOR 09/25/2023 1:40 PM Length of Stay (Days): 9 GMLOS: 4.6 * Care Coordination - Soco Palumbo RN - 10/04/2023 9:00 AM EDT TCC notes LACE & Readmission Score >58. TCC completed referral to Ambulatory Transition CareTeam. * Care Coordination - Karen Zepeda - 10/04/2023 8:44 AM EDT Referral placed to SNF - [facility] via Careport per TCC request. Await review and response regarding ability to accept. TCC notified. * Care Coordination - Karen Zepeda - 10/03/2023 12:01 PM EDT Referral placed to SNF - [facility] via Careport per TCC request. Await review and response regarding ability to accept. TCC notified. * Care Coordination - Arminda Marie RN - 10/03/2023 10:46 AM EDT Images from the original note were not included. Care Management Progress Note Patient remains on 1C s/p Cardioversion 10/01, Thoracentesis today. PT/OT recommending SNF. Jennifer at [facility] contacted for bed availability and confirmed they have SNF beds available. Requested an updated OT note to start insurance auth. Requested TOOL CHASER send MAR, updated PT note and Cardiology note to facility per their request. Discharge Milestones and Delays Expected Date/Time: 10/05/[address] discharge order Complete med reconciliation Case mgmt discharge readiness Clinical Stability Diagnsotic Workup Expected Discharge History Expected Date/Time Set By Reviewed At 10/05/2023 Arminda Marei RN 10/03/2023 10:33 AM Thoracentesis today. 10/03/2023 Arminda Reed RN 10/02/2023 8:01 AM pending p2p for [facility] 10/03/2023 Vivienne Wilson RN 10/01/2023 11:05 [...] Diagnosis: Principal Problem: Coronary artery disease of [place] artery of [place] heart with stable angina pectoris ([facility]) Active Problems: HFrEF (heart failure with reduced ejection fraction) ([facility]) Chief Complaint: Eben Cruz is a 78 y.o. male with chief complaint of: coronary artery disease Reason Palliative Following: Goals of Care Plan: Follow Peripherally Code Status: Full Code Medications: Palliative Care Not Managing any Medications Nursing: Usp Care Social Work: No Unmet Needs Spiritual Care: Community Clergy Following Pharmacy: No Unmet Needs Psychology/Psychiatry: No Unmet Needs * Care Coordination - Arminda Reed RN - 10/02/2023 11:04 AM EDT This TCC spoke with Jennifer from admissions at [facility] [phone]. At this time, there is NOauth or P2P pending. [facility] is willing to accept the pt for either IPR or SNF LOC. The only beds they have available at this time is for their IPR. There are no available beds on the SNF side.[facility] states he has skillable needs [...] 9:24 AM EDT Updated notes placed to SN[facility]. Await review and response regarding ability to accept. TCC notified. * Care Coordination - Vivienne Wilson RN - 10/01/2023 9:11 AM EDT Spoke with Jennifer at [facility] at [phone] regarding auth status. Jennifer states [id number] is still pending. Jennifer states she should know by the end of the day the results of p2p. Tasked TOOL CHASER to sendmost recent PT/OT notes and MD [...] hip surgery. Patient was still inpatient at [place] - will need auth from [facility] - they can see in care port but not respond - Jun [phone]. [facility] would not have bed until earliest Sunday. Task sent for PT/OT to see Discharge Plan: [facility] (SNF bed) - TCC and [...] 11:09 AM EDT Completed transportation from in [facility]. * Patient Care Conference - SUZANNE Alvarez - 09/28/2023 10:49 AM EDT Palliative Care Interdisciplinary Team Note: Diagnosis: Principal Problem: Coronary artery disease of [place] artery of [place] heart with stable angina pectoris ([facility]) Active Problems: HFrEF (heart failure with reduced ejection fraction) ([facility]) Chief Complaint: Eben Cruz is a 78 y.o. male with chief complaint of: coronary artery disease Reason Palliative Following: Goals of Care Plan: Ongoing Goals of Care Discussion Code Status: Full Code Medications: Palliative Care Not Managing any Medications Nursing: Usp Care Social Work: No Unmet Needs Spiritual [...] abx for E coli UTI. Was in [facility] - in their SNF unit - daughter would like patient to return. PT/OT orders in. Called and left VM for Jun ([phone]) at [facility] - to see what is needed when patient is ready for discharge. (They have not answered in care port) Received call back from Jennifer at [facility] - to clarify - patient was still in patient at [facility] - auth for [facility] was started on 09/23, patient trasnferred to [facility] on 09/24 - rehab was denied on 09/25. Patient would need auth for [facility] bed - at the earliest they would have a bed would be . Patient will need PT/OT to see. Task sent to [facility] - to close [facility] referral ending in 123 and leave referral ending in 701 - [facility] can see info on the referral but [...] EDT Return referral placed to SNF - [facility] via Careport per TCC request. Await review and response regarding ability to accept. TCC notified. * Care Coordination - Arminda Lawler RN - 09/26/2023 3:01 PM EDT [facility]. TOOL CHASER tasked to send referral. * Care Coordination - Molly Arizmendi - 09/26/2023 1:33 PM EDT Referral placed to RETURN REHAB-[facility] Acute Rehab via Careport per TCC request. Await review and response regarding ability to accept. TCC notified. * Care Coordination - Arminda Lawler RN - 09/26/2023 1:06 PM EDT Care Managment Initial Assessment Date: 09/26/2023 Patient Name: Eben Cruz : 1945 Patient Information Source of Information: Patient Physician Office Rep Name/Contact Information: law Mendez Cognition/Language: WFL - Within Functional Limits Permission given to speak with patient retail sales representative/caregiver as indicated: Confirmation of Payer with patient/family: Yes Payer Name: [employer] Medicare Advantage [place]: Confirmation of Primary Care Physician: Confirmed PCP Name: Iwona Stewart Seen in last 2 years?: Yes Primary Caregiver: Self If assistance needed, confirmed caregiver ready, willing and able to care for patient at discharge:(plan is to return to [facility]) Confirmed with: Living Arrangements Current Residence: [...] expects to be discharged to: return to [facility] Discharge Planning Actions: Patient's Choice Rights and [employer] and Collaborative Relationships Disclosed as Indicated for Post-Acute Care: Yes Interdisciplinary Team Engagement: Acute Rehab Social Work Referral for: Additional Information: [facility]al [facility]. Pt had a stroke 04/2023, Hip surgery last , then went to [facility] in [place]. Transferred to [facility] for planned cardiac intervention. PCI with 3 stents and lithotripsy this AM. 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 Pt had been ind and working/driving prior to his stroke in Nov. Used a cane prn. Has been at [facility] [facility] since Sun per dtr. Plan [facility] to [facility] tasked to send referral. DCP: return to [facility]. Will need PT/OT for auth. Arminda [...] or improved Outcome: Progressing documented in this [facility]04-19-2024 NoteName: Eben Cruz Date of : 1945 Date of Admission: 09/25/2023 Date of Discharge: 10/05/2023 Admitting physician: Amos Nichole MD Discharge Attending: Elisa Goldstein APRN - GAS LEAK INSPECTOR Primary Care Physician: Iwona Stewart Review of [...] Reason for Admission: for PCI, transferred from [facility] Consultants: Cardiology, HF team, orthopedics, Palliative care, wound care HOSPITAL ADMISSION PROBLEM LIST: Patient Active Problem List Diagnosis Coronary artery disease of [place] artery of [place] heart with stable angina pectoris ([facility]) HFrEF (heart failure with reduced ejection fraction) ([facility]) EKG: IMPRESSION: Sinus rhythm Nonspecific repol abnormality, lateral leads TELEMETRY: SR 60-70s with PVCs Procedures: Cath Summary: 09/26/23: Conclusions Mildly elevated LVEDP 18 mmHG Severe calcified left main( ostial 50%, distal 80%) stenosis Severe calcified proximal LAD( 80%) stenosis Small D1 with proximal 70% lesion Ostial LCX BISQUE TILE BURNER heavily calcified with no collaterals Severely calcified ostial RCA(90%) lesion, mid(30%) and distal RCA(50%) Successful IVUS guided Intravascular Lithotripsy and NORIS of ostial RCA. Successful IVUS guided Intravascular Lithotripsy and NORIS of LMCA. Successful IVUS guided Intravascular Lithotripsy and NORIS of ostial and proximal LAD. Plan DAPT for at least 1 year and terminal block assembler if tolerates. Single antiplatelet lifelong High intensity [...] had total left hip replacement surgery at [facility]. He had a NSTEMI and was transferred to [place], then to [facility] for a PCI. On 09/26/23, he had a PCI with IVL and NORIS plac (more content not included)... [facility] [id number] NoteCare Management Progress Note Chart reviewed. Patient [...] patient verbalizes understanding and agreement. Discharge Plan: [facility] SNF. Awaiting LifeVest clinical stability and medical [...] PM Length of Stay (Days): 10 LOS: [address] [place], [place] [id number] Hospital course Narrative* MELISSA Jones CNP - [...] Reason for Admission: for PCI, transferred from [facility] Consultants: Cardiology, HF team, orthopedics, Palliative care, wound care HOSPITAL ADMISSION PROBLEM LIST: Patient Active Problem List Diagnosis Coronary artery disease of [place] artery of [place] heart with stable angina pectoris ([facility]) HFrEF (heart failure with reduced ejection fraction) ([facility]) EKG: IMPRESSION: Sinus rhythm Nonspecific repol abnormality, lateral leads TELEMETRY: SR 60-70s with PVCs Procedures: Cath Summary: 09/26/23: Conclusions Mildly elevated LVEDP 18 mmHG Severe calcified left main( ostial 50%, distal 80%) stenosis Severe calcified proximal LAD( 80%) stenosis Small D1 with proximal 70% lesion Ostial LCX BISQUE TILE BURNER heavily calcified with no collaterals Severely calcified [...] had total left hip replacement surgery at [facility]. He had a NSTEMI and was transferred to [place], then to [facility] for a PCI. On 09/26/23, he had a PCI with IVL and NORIS placed to ostial RCA, LMCA, ostial and proximal LAD. His ostial LCX BISQUE TILE BURNER is heavily calcified- for medical management. He [...] up care. Follow up arranged in his horse race timer office, Dr. Paredes on October 16 at 2:15pm. Doing well. Agree w present meds. For LifeVest application today. Discharge to [facility] later today. HFrEF 25%, acute [...] s/p left hip arthroplasty on 09/18/23 in [place] - Ortho consulted. Weight bearing as tolerated. X-ray stable. PT/OT. Will need SNF at discharge. Tofollow up with surgeon in [place]. HLD - Continue atorvastatin. LDL 39. HTN - Controlled. Had been running low. Continue Toprol xl. Add GDMT as BP tolerates. Debility - PT/OT. Will need SNF at discharge. Discharge likely tomorrow. Goals of care - Palliative care consulted and following. Plan is to discharge to rehab today. Discussed with Dr. Nichole. Follow up arranged with Dr. Paredes, his primary horse race timer, on October 16 at 2:15. Discharge instructions [...] Cardiac Rehab The Cardiac Rehab team at [facility] consists of highly skilled exercise [...] your heart. We have facilities at both [facility] and [facility]. At both locations we have street level parking which is free and our sites are easily accessible. For both [facility] you can contact us at . We invite you to call us with your questions or to get started in our program. If you have other questions or concerns be sure to ask your provider during your follow up visit. We look forward to seeing you there. Our locations: [facility] [address] [facility] [place] [address] Ground Floor [id number] - Ground floor BMI Classification: Overweight (BMI 25.0-29.9) DIET: A lowfat, low cholesterol diet was discussed with the patient. Discharge to SNF Condition at Discharge: stable Follow up with cardiology October 16 at 2:[address] Uriel Paredes If any questions call [facility] Cardiology-[facility] office [phone] Total time spent for Discharge time greater than 31 minutes documented in this encounterSumma [id number] [facility] [place] [facility] [place] Cardiology Progress Note CC: CAD HPI / Interval History: Mr. 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 On 09/18/23, he had total left hip replacement surgery at [facility]. He had a NSTEMI and was transferred to [place], then to [facility] for a PCI. On 09/26/23, he had a PCI with IVL and NORIS placed to ostial RCA, LMCA, ostial and proximal LAD. His ostial LCX BISQUE TILE BURNER is heavily calcified- for medical management. Echocardiogram [...] up care. Follow up arranged in his horse race timer office, Dr. Paredes on October 16 at 2:15pm. Doing well. Agree w present meds. For LifeVest application today. Discharge to [facility] later today. HFrEF 25%, acute [...] s/p left hip arthroplasty on 09/18/23 in [place] - Ortho consulted. Weight bearing as tolerated. X-ray stable. PT/OT. Will need SNF at discharge. To follow up with surgeon in [place]. HLD - Continue atorvastatin. LDL 39. HTN - Controlled. Had been running low. Continue Toprol xl. Add GDMT as BP tolerates. Debility - PT/OT. Will need SNF at discharge. Discharge likely tomorrow. Goals of care - Palliative care consulted and following. Plan is to discharge to rehab today. Discussed with Dr. Nichole. Follow up arranged with Dr. Paredes, his primary horse race timer, on October 16 at 2:15. 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 L hip fracture - post arthroplasty 09/18/23 - SNF at dc - ortho removed sutures 10/02/23 Risk for constipation - no longer feels constipated, BM 10/03/23 - changed prn polyethylene glycol to schedule Insomnia, depression, poor appetite - major life change - his community powder nipper is coming to visit today - each day I see him, remains in good mood and spirits Palliative Care Encounter -full code - - consulted for goals of care - goals clear, without symptoms that require management, will sign off at this time hopes to be dc to SNF today Eben Cruz has been seen in consultation by [facility] during their admission to [facility]. They currently have no uncontrolled symptoms and [...] living independently at home, still driving, working [employer]. PMHx includes: HTN, HLD, partial R CVA. At [facility] for L total hip replacement but complicated by requirement of wound vac, was at SNF. transferred to [place] for cardiology NSTEMI, transferred to [facility] for PCI. Family called with stating he [...] other systems were reviewed and are negative. 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 On 09/18/23, he had total left hip replacement surgery at [facility]. He had a NSTEMI and was transferred to [place], then to [facility] for a PCI. On 09/26/23, he had a PCI with IVL and NORIS placed to ostial RCA, LMCA, ostial and proximal LAD. His ostial LCX BISQUE TILE BURNER is heavily calcified- for medical management. Echocardiogram [...] up care. Follow up arranged in his horse race timer office, Dr. Paredes on October 16 at 2:15pm. Doing well. Agree w present meds. For LifeVest application today. Discharge to [facility] later today. HFrEF 25%, acute [...] s/p left hip arthroplasty on 09/18/23 in [place] - Ortho consulted. Weight bearing as tolerated. X-ray stable. PT/OT. Will need SNF at discharge. Tofollow up with surgeon in [place]. HLD - Continue atorvastatin. LDL 39. HTN - Controlled. Had been running low. Continue Toprol xl. Add GDMT as BP tolerates. Debility - PT/OT. Will need SNF at discharge. Discharge likely tomorrow. Goals of care - Palliative care consulted and following. Plan is to discharge to rehab today. Discussed with Dr. Nichole. Follow up arranged with Dr. Paredes, his primary horse race timer, on October 16 at 2:15. Discharge instructions [...] Frederick Mcclelland MD on 09/30/2023 6:33 PM [facility] 10/02/23: Cardioversion basis: elective Pre-procedure [...] D1 with proximal 70% lesion Ostial LCX BISQUE TILE BURNER heavily calcified with no collaterals Severely calcified ostial RCA(90%) lesion, mid(30%) and distal RCA(50%) Successful IVUS guided Intravascular Lithotripsy and NORIS of ostial RCA. Successful IVUS guided Intravascular Lithotripsy and NORIS of LMCA. Successful IVUS guided Intravascular Lithotripsy and NORIS of ostial and proximal LAD. Plan DAPT for at least 1 year and terminal block assembler if tolerates. Single antiplatelet lifelong High intensity [...] 55 - 100 % Final Elisa Goldstein, EXECUTIVE CREATIVE DIRECTOR - GAS LEAK INSPECTOR Date Of Service 10/05/2023 I, Dr. Amos [...] 35 minutes. 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 L hip fracture - post arthroplasty 09/18/23 - SNF at [place] - ortho removed sutures 10/02/23 Risk for constipation - no longer feels constipated, BM 10/03/23 - changed prn polyethylene glycol to schedule Insomnia, depression, poor appetite - major life change - his community powder nipper is coming to visit today - each day I see him, remains in good mood and spirits Palliative Care Encounter -full code - - consulted for goals of care - goals clear, without symptoms that require management, will sign off at this time hopes to be dc to SNF today Eben Cruz has been seen in consultation by [facility] Palliative [facility] during their admission to [facility]. They currently have no uncontrolled symptoms and [...] independently at home, still driving, working hauling [employer] [facility] [employer]. PMHx includes: HTN, HLD, partial R CVA. At [facility] for L total hip replacement but complicated by requirement of wound vac, was at SNF. transferred to [place] for cardiology NSTEMI, transferred to [facility] for PCI. Family called with stating he [...] other systems were reviewed and are negative. 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 Family Meeting: (if discussing Advanced Care [...] original note were not included. OCCUPATIONAL THERAPY [facility] Treatment Note Name/MRN: Eben Cruz ([id number]) Date of : 1945 Age: 78 y.o. Room/Bed: 1C-130/1C-130 A Discharge Recommendation: Usp Facility Equipment Needed: Yes (FWW) Prior Level [...] left anterior hip arthroplasty on 09/17 at [place] HPI: Patient is seen resting in bed. [...] Problem List Diagnosis Coronary artery disease of [place] artery of [place] heart with stable angina pectoris ([facility]) HFrEF (heart failure with reduced ejection fraction) ([facility]) PAST SURGICAL HISTORY Past Surgical History: Procedure Laterality Date CARDIAC CATHETERIZATION N/A 09/26/2023 Performed by Amos Nichole MD at [facility] Cardiac Cath/EP Lab CARDIAC CATHETERIZATION N/A 09/26/2023 Performed by Amos Nichole MD at [facility] Cardiac Cath/EP Lab HERNIA REPAIR INVASIVE VASCULAR PROCEDURE N/A 09/26/2023 Performed by Amos Nichole MD at [facility] Cardiac Cath/EP Lab JOINT REPLACEMENT both hip [...] 650 mg, Rectal, q6h PRN, Ashleigh Morrison, EXECUTIVE CREATIVE DIRECTOR - GAS LEAK INSPECTOR amiodarone (Pacerone) tablet 400 mg, 400 mg, Oral, BID, Elisa Goldstein EXECUTIVE CREATIVE DIRECTOR - GAS LEAK INSPECTOR, 400 mg at 10/04/23 0940 apixaban (Eliquis) tablet 5 mg, 5 mg, Oral, BID, Christopher Skyub, DO, 5 mg at 10/04/23 0941 ascorbic acid (Vitamin C) tablet 500 mg, 500 mg, Oral, Daily, Ashleigh Perkins Puliafico, EXECUTIVE CREATIVE DIRECTOR - GAS LEAK INSPECTOR, 500 mg at 10/04/23 0940 aspirin EC tablet 81 mg, 81 mg, Oral, Daily, Ashleigh Zuletaiafijojo, EXECUTIVE CREATIVE DIRECTOR - GAS LEAK INSPECTOR, 81 mg at 10/04/23 0941 atorvastatin (Lipitor) tablet 40 mg, 40 mg, Oral, Daily, Ashleigh Zuletaiafico, EXECUTIVE CREATIVE DIRECTOR - GAS LEAK INSPECTOR, 40 mg at 10/04/23 0941 Calcium Carb-Cholecalciferol 500-5 MG-MCG per tablet 1 tablet, 1 tablet, Oral, Daily, Elisa Goldstein EXECUTIVE CREATIVE DIRECTOR - GAS LEAK INSPECTOR, 1 tablet at 10/04/23 0941 clopidogrel (Plavix) tablet 75 mg, 75 mg, Oral, Daily, Ashleigh Zuletaiafijojo EXECUTIVE CREATIVE DIRECTOR - GAS LEAK INSPECTOR, 75 mg at 10/04/23 0942 dapagliflozin (Farxiga) tablet 10 mg, 10 mg, Oral, Daily, Charlette Borrero MD, 10 mg at 10/04/23 1129 ipratropium-albuterol (Duo-Neb) 0.5-2.5 mg/3 mL nebulizer solution 3 mL, 3 mL, Nebulization, q8h PRN, Elisa Goldstein APRN - GAS LEAK INSPECTOR, 3 mL at 10/02/232155 melatonin tablet 10 [...] mg, Oral, qAM AC, Ashleigh Perkins Puliafico, EXECUTIVE CREATIVE DIRECTOR - GAS LEAK INSPECTOR, 40 mg at 10/04/23 0610 polyethylene glycol (PEG) 3350 (Miralax) packet 17 g, 17 g, Oral, Daily, Yajaira Thakkar, EXECUTIVE CREATIVE DIRECTOR - GAS LEAK INSPECTOR, 17 g at 09/29/23 0750 promethazine (Phenergan) [...] left anterior hip arthroplasty on 09/17 at [place] Plan -No acute surgical intervention -WBAT -Activity as tolerated -Ice -PT/OT as able -Neurovascular checks -Skin checks -Follow-up outpatient w/ Dr. Schreiber; further care per Dr. Schreiber -Dispo per primary -Orthopaedic surgery will sign off. Please page saturation equipment operator orthopaedic resident for questions or concerns. * Brielle Metzger, PT - 10/04/2023 1:09 PM EDT Images from the original note were not included. PHYSICAL THERAPY [facility] Treatment Note Name/MRN: Eben Cruz ([id number]) Date of : 1945 Age: 78 y.o. Room/Bed: 1C-130/1C-130 A Discharge Recommendation: Usp Facility Equipment Needed: No Other: He has [...] Brielle Metzger, PT * Leonie AToshia Moe, EXECUTIVE CREATIVE DIRECTOR - GAS LEAK INSPECTOR - 10/04/2023 11:00 AM EDT Images from the original note were not included. [facility] Wound Care Progress Note Eben Cruz [...] stenosis in 04/2023. He is known to [facility] outpatient. Had Cin 2013 with non-obstructive CAD (per pt). NST 06/21/22 showed preserved EF, no ischemia. On 09/18/23, had total left hip replacement surgery at [facility]. Had complicated course requiringwound vac. Discharged to [facility] (SNF). Wound Care consulted for left hip wound. Patient states he had a hip replacement surgery on 09/18/23 at [facility]. Patient resting in bed. PAST MEDICAL HISTORY Past Medical History: Diagnosis Date Adverse effect of anesthesia Arthritis Coronary artery disease Delayed emergence from general anesthesia Hypertension Stroke (HCC) PAST SURGICAL HISTORY Past Surgical History: Procedure Laterality Date CARDIAC CATHETERIZATION N/A 09/26/2023 Performed by Amos Nichole MD at [facility] Cardiac Cath/EP Lab CARDIAC CATHETERIZATION N/A 09/26/2023 Performed by Amos Nichole MD at [facility] Cardiac Cath/EP Lab HERNIA REPAIR INVASIVE VASCULAR PROCEDURE N/A 09/26/2023 Performed by Amos Nichole MD at [facility] Cardiac Cath/EP Lab JOINT REPLACEMENT both hip [...] Jones CNP - 10/04/2023 8:08 AM EDT [facility] [place] [place] Progress Note CC: CAD HPI / Interval History: Mr. 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 On 09/18/23, he had total left hip replacement surgery at [facility]. He had a NSTEMI and was transferred to [place], then to [facility] for a PCI. On 09/26/23, he had a PCI with IVL and NORIS placed to ostial RCA, LMCA, ostial and proximal LAD. His ostial LCX BISQUE TILE BURNER is heavily calcified- for medical management. Echocardiogram [...] left hip. Follow up arranged in his horse race timer office, Dr. Paredes on October 16 at [...] at discharge. Tofollow up with surgeon in [place]. HLD - Continue atorvastatin. LDL 39. HTN - Controlled. Had been running low. Continue Toprol xl. Add GDMT as BP tolerates. Debility - PT/OT. Will need SNF at discharge. Discharge likely tomorrow. Goals of care - Palliative care consulted and following. Discussed with Dr. Nichole. Follow up arranged with Dr. Paredes, his primary horse race timer, on October 16 at 2:15. Will need [...] Frederick Mcclelland MD on 09/30/2023 6:33 PM [facility] 10/02/23: Cardioversion basis: elective Pre-procedure [...] D1 with proximal 70% lesion Ostial LCX BISQUE TILE BURNER heavily calcified with no collaterals Severely calcified ostial RCA(90%) lesion, mid(30%) and distal RCA(50%) Successful IVUS guided Intravascular Lithotripsy and NORIS of ostial RCA. Successful IVUS guided Intravascular Lithotripsy and NORIS of LMCA. Successful IVUS guided Intravascular Lithotripsy and NORIS of ostial and proximal LAD. Plan DAPT for at least 1 year and terminal block assembler if tolerates. Single antiplatelet lifelong High intensity [...] 55 - 100 % Final Elisa Goldstein, EXECUTIVE CREATIVE DIRECTOR - GAS LEAK INSPECTOR Date Of Service 10/04/2023 Associated attestation - [...] Nichole MD - 10/04/2023 7:10 AM EDT [facility] Cardiology /Electrophysiology Progress Note HPI / Interval History: Mr. Cruz is a 78 YO M known to Dr. Paredes ([facility]) who has a Pmhx of HTN, HLD, recent hip replacement (09/18/23) and R parietal CVA with high grade R external carotid stenosis in 04/2023 who presented from [place] for high risk PCI. Dr. Nichole performed [...] BP. Continue Aldactone. Plan on discharge to [facility] tomorrow. Follow up w [place] Clerk in [place] has been arranged. Atrial Fibrillation/ Flutter with [...] be monitored and followed by the diet poultry field service technician. Floor RD available upon request. Pt consuming 75% to 99% of meals.DEVORA Lares * VINCENT Estevez/Barry - 10/03/2023 3:38 PM EDT Images from the original note were not included. OCCUPATIONAL THERAPY [facility] Treatment Note Name/MRN: Eben Cruz ([id number]) Date of : 1945 Age: 78 y.o. Room/Bed: 1C-130/1C-130 A Discharge Recommendation: Usp Facility Equipment Needed: (defer to next level of care) Prior Level of Function ADL Assistance: Independent Ambulation Assistance: Independent Transfer Assistance: Independent Assessment Pt SOB throughout on 2L O2, sats remain >93%. Mod assist bed mobility and STS. Min assist functional mobility short distance and chair transfer with FWW. Recommend residential facility at discharge. Subjective Pt in supine [...] 16 Yamile Moraes OTR/Barry * Carolyn Bagley, BORING MACHINE OPERATOR - 10/03/2023 9:34 AM EDT Images from the original note were not included. [facility] Wound Care Progress Note Eben Cruz [...] stenosis in 04/2023. He is known to [facility] outpatient. Had Cin 2013 with non-obstructive CAD (per pt). NST 06/21/22 showed preserved EF, no ischemia. On 09/18/23, had total left hip replacement surgery at [facility]. Had complicated course requiringwound vac. Discharged to [facility] (SNF). Wound Care consulted for left hip wound. Patient states he had a hip replacement surgery on 09/18/23 at [facility]. Patient sitting up in chair eating breakfast. PAST MEDICAL HISTORY Past Medical History: Diagnosis Date Adverse effect of anesthesia Arthritis Coronary artery disease Delayed emergence from general anesthesia Hypertension Stroke (HCC) PAST SURGICAL HISTORY Past Surgical History: Procedure Laterality Date CARDIAC CATHETERIZATION N/A 09/26/2023 Performed by Amos Nichole MD at [facility] Cardiac Cath/EP Lab CARDIAC CATHETERIZATION N/A 09/26/2023 Performed by Amos Nichole MD at [facility] Cardiac Cath/EP Lab HERNIA REPAIR INVASIVE VASCULAR PROCEDURE N/A 09/26/2023 Performed by Amos Nichole MD at [facility] Cardiac Cath/EP Lab JOINT REPLACEMENT both hip [...] original note were not included. PHYSICAL THERAPY [facility] Treatment Note Name/MRN: Eben Cruz ([id number]) Date of : 1945 Age: 78 y.o. Room/Bed: 1C-130/1C-130 A Discharge Recommendation: Usp Facility Equipment Needed: No Other: He has [...] Pt ambs with downward gaze and MARISA roving can tender to RW. Tactile cues to bring MARISA [...] Raw Score (No Stairs) : 12 [facility] Score: Walked 25 ft or more (i.e. 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 PMHx includes: HTN, HLD, partial R CVA. At [facility] for L total hip replacement but complicated by requirement of wound vac, was at SNF. transferred to [place] for cardiology NSTEMI, transferred to [facility] for PCI. Family called with stating he [...] other systems were reviewed and are negative. Deepwater Symptom Assessment Score Deepwater Score Pain Score 0 Tiredness Score 0 [...] Assessed by: patient and provider. 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 On 09/18/23, he had total left hip replacement surgery at [facility]. He had a NSTEMI and was transferred to [facility]. On 09/26/23, he had a PCI with IVL and NORIS placed to ostial RCA, LMCA, ostial and proximal LAD. His ostial LCX BISQUE TILE BURNER is heavily calcified- for medical management. Echocardiogram [...] his left hip. Followup arranged in his horse race timer office, Dr. Paredes on October 16 at [...] s/p left hip arthroplasty on 09/18/23 in [place] - Ortho consulted. Weight bearing as tolerated. X-ray stable. PT/OT. Will need SNF at discharge. Tofollow up with surgeon in [place]. HLD - Continue atorvastatin. LDL 39. HTN - Controlled. Had been running low. Continue Toprol xl. Add GDMT as BP tolerates. Debility - PT/OT. Will need SNF at discharge. Goals of care - Palliative care consulted and following. Discussed with Dr. Nichole. Follow up arranged with Dr. Paredes, his primary horse race timer, on October 16 at 2:15. Will need [...] Frederick Mcclelland MD on 09/30/2023 6:33 PM [facility] 10/02/23: Cardioversion basis: elective Pre-procedure [...] D1 with proximal 70% lesion Ostial LCX BISQUE TILE BURNER heavily calcified with no collaterals Severely calcified [...] 55 - 100 % Final Elisa Goldstein, EXECUTIVE CREATIVE DIRECTOR - [facility] Date Of Service 10/03/2023 I, Dr. Amos [...] Borrero MD - 10/03/2023 6:59 AM EDT [facility] [place]iology /Electrophysiology Progress Note HPI / Interval History: Mr. Cruz is a 78 YO M known to Dr. Paredes ([facility]) who has a Pmhx of HTN, HLD, recent hip replacement (09/18/23) and R parietal CVA with high grade R external carotid stenosis in 04/2023 who presented from [place] for high risk PCI. Dr. Nichole performed [...] made it out to the front end web developer however was really SOB just doing that. [...] had a recent hip replacement 09[facility]. Patient daughter and nursing department here at [facility] were reached out by [facility] care nurses requesting suture removal. His surgeon at [facility] is Dr. Iwona Schreiber. [phone] is the office number. Consult to ortho placed and saturation equipment operator resident was informed about this non-urgent consult. * Isabel Mcdonald - 10/02/2023 1:42 PM EDT .Nutrition update completed. Chart reviewed. Patient to be monitored and followed by the diet poultry field service technician. .DEVORA Lares * Leonie Moe APRN - GELY - 10/02/2023 10:48 AM EDT Images from the original note were not included. [facility] Wound Care Progress Note Eben Cruz [...] stenosis in 04/2023. He is known to [facility] outpatient. Had LHCin 2013 with non-obstructive CAD (per pt). NST 06/21/22 showed preserved EF, no ischemia. On 09/18/23, had total left hip replacement surgery at [facility]. Had complicated course requiringwound vac. Discharged to [facility] (SNF). Wound Care consulted for left hip wound. Patient states he had a hip replacement surgery on 09/18/23 at [facility]. Patient sitting up in chair. Family at bedside. PAST MEDICAL HISTORY Past Medical History: Diagnosis Date Adverse effect of anesthesia Arthritis Coronary artery disease Delayed emergence from general anesthesia Hypertension Stroke (HCC) PAST SURGICAL HISTORY Past Surgical History: Procedure Laterality Date CARDIAC CATHETERIZATION N/A 09/26/2023 Performed by Amos Nichole MD at [facility] Cardiac Cath/EP Lab CARDIAC CATHETERIZATION N/A 09/26/2023 Performed by Amos Nichole MD at [facility] Cardiac Cath/EP Lab HERNIA REPAIR INVASIVE VASCULAR PROCEDURE N/A 09/26/2023 Performed by Amos Nichole MD at 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 Any [...] original note were not included. PHYSICAL THERAPY [facility] Treatment Note Name/MRN: Eben Cruz ([id number]) Date of : 1945 Age: 78 y.o. Room/Bed: 1C-130/1C-130 A Discharge Recommendation: Usp Facility Equipment Needed: No Other: He has [...] Borrero MD - 10/02/2023 7:05 AM EDT [facility] Cardiology /Electrophysiology Progress Note HPI / Interval History: Mr. Cruz is a 78 YO M known to Dr. Paredes ([facility] [facility]) who has a Pmhx of HTN, HLD, recent hip replacement (09/18/23) and R parietal CVA with high grade R external carotid stenosis in 04/2023 who presented from [place] for high risk PCI. Dr. Nichole performed [...] Nichole MD - 10/02/2023 6:36 AM EDT [facility] Cardiology /Electrophysiology Progress Note HPI / Interval [...] D1 with proximal 70% lesion Ostial LCX BISQUE TILE BURNER heavily calcified with no collaterals Severely calcified [...] 38 (A) 55 - 100 % Final Amso Nichole MD Date Of Service 10/02/2023 I, [...] original note were not included. OCCUPATIONAL THERAPY [facility] Initial Evaluation Name/MRN: bEen Cruz ([id number]) Evaluation Date: 10/01/2023 Date of : 1945 [...] spoke with Renate from therapy department at [facility], where patient was at prior to admission to this facility. Renate states that patient is WBAT with anterior hip precautions. Pain: RN managing pain. Past Medical History: Past Medical History: Diagnosis Date Adverse effect of anesthesia Arthritis Coronary artery disease Delayed emergence from general anesthesia Hypertension Stroke ([facility]) Past Surgical History: Past Surgical History: Procedure Laterality Date CARDIAC CATHETERIZATION N/A 09/26/2023 Performed by Amos Nichole MD at [facility] Cardiac Cath/EP Lab CARDIAC CATHETERIZATION N/A 09/26/2023 Performed by Amos Nichole MD at [facility] Cardiac Cath/EP Lab HERNIA REPAIR INVASIVE VASCULAR PROCEDURE N/A 09/26/2023 Performed by Amos Nichole MD at 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 Goals and/or treatment plan was established in collaboration with patient/family/other representatives. 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 [employer] L hip fracture - [place] he continues to have sutures LLE, I did not see on paper chart when to be taken out Risk for constipation - no longer feels constipated, BM today - changed prn polyethylene glycol to schedule Insomnia, depression, poor appetite - major life change - his community powder nipper is coming to visit today - aware unfortunately antidepressants can affect heart and will not be starting at this time, his community powder nipper did visit and was helpful, just expresses [...] living independently at home, still driving, working [employer] [facility] [employer]. PMHx includes: HTN, HLD, partial R CVA. At [facility] for L total hip replacement but complicated by requirement of wound vac, was at SNF. transferred to [place] for cardiology NSTEMI, transferred to [facility] for PCI. Family called with stating he [...] other systems were reviewed and are negative. 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 PHYSICAL THERAPY [facility] Treatment Note Name/MRN: Eben Cruz ([id number]) Date of : 1945 Age: 78 y.o. Room/Bed: 1C-130/1C-130 A Discharge Recommendation: Usp Facility Equipment Needed: No Other: He has [...] Nichole MD - 10/01/2023 7:48 AM EDT [facility] [place]iology /Electrophysiology Progress Note HPI / Interval [...] I.S., C&DB. He was to go to [facility]. Care Management/TCC involved with this. [facility] on discharge HLD - LDL 39. Continue [...] D1 with proximal 70% lesion Ostial LCX BISQUE TILE BURNER heavily calcified with no collaterals Severely calcified ostial RCA(90%) lesion, mid(30%) and distal RCA(50%) Successful IVUS guided Intravascular Lithotripsy and NORIS of ostial RCA. Successful IVUS guided Intravascular Lithotripsy and NORIS of LMCA. Successful IVUS guided Intravascular Lithotripsy and NORIS of ostial and proximal LAD. Plan DAPT for at least 1 year and terminal block assembler if tolerates. Single antiplatelet lifelong High intensity [...] 55 - 100 % Final Ashleigh Morrison, EXECUTIVE CREATIVE DIRECTOR - GAS LEAK INSPECTOR Date Of Service 10/01/2023 I, Dr. Amos Nichole, saw and evaluated the patient on 10/01/2023. I personally obtained the mrorow and critical portions of the history and [...] original note were not included. OCCUPATIONAL THERAPY [facility] Name/MRN: Eben Cruz ([id number]) Date: 09/30/2023 OT reviewed chart. In OT orders section, listed as have left LE restricted wt bearing but did notclarify the wt bearing. Spoke with RN ( Katie Aguilar) and reviewed paper chart from [facility]. Stated had left hip surgery that was complicated and required wound vac but did not clarify wt bearing or specific hip precautions either. Dr. Donnelly was seeing pt and explained situation and concerns to her. She stated she would consult ortho to clarify situation. OT will continue to follow. Jenny Hernández OTR/L * Cliff Cast Jr., MD - 09/30/2023 8:30 AM EDT [facility] Cardiology /Electrophysiology Progress Note CC: NSTEMI, s/p PCI HPI / Interval History: Mr. 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 On 09/18/23, he had total left hip replacement surgery at [facility]. He was discharged to SNF. He developed dyspnea and was transferredto [facility] with +NSTEMI, negative CTA for PE. Had a LHC at [facility] with severe mCAD. He was transferred to [facility] for PCI with Dr. Nichole. He had successful PCI on 09/25 with [facility] NORIS placed to ostial RCA, LMCA, ostial and proximal LAD. His ostial LCX BISQUE TILE BURNER is heavily calcified- for medical management. His echocardiogram at [place] showed LVEF of 25%, with lateral wall hypokinetic, mild-mod mitral valve insufficiency (at [place] on 09/23/23. Following PCI, having heart failure [...] - Patient is currently awaiting transfer to [facility] in [place] - IV heparin drip as per 24 [...] UTI, uncomplicated - Received C&S results from [place], +ecoli in urine. Sensitive to cephalosporins. Continue [...] I.S., C&DB. He was to go to [facility]. Care Management/TCC involved with [...] Will need rehab, and follow up with [facility] (Dr. Kruse). [id number] Score for Atrial Fibrillation Stroke Risk Risk Factors C CHF Yes, 1 H HTN Yes, 1 A2 Age >= 75 Yes, 2 D DM No, 0 S2 Prior Stroke/TIA Yes, 2 V Vascular Disease No, 0 A Age 65-74 No, 0 Sc Sex Male, 0 [id number] Score 6 Calculator: [id number] risk stratification score for estimation of stroke [...] D1 with proximal 70% lesion Ostial LCX BISQUE TILE BURNER heavily calcified with no collaterals Severely calcified ostial RCA(90%) lesion, mid(30%) and distal RCA(50%) Successful IVUS guided Intravascular Lithotripsy and NORIS of ostial RCA. Successful IVUS guided Intravascular Lithotripsy and NORIS of LMCA. Successful IVUS guided Intravascular Lithotripsy and NORIS of ostial and proximal LAD. Plan DAPT for at least 1 year and terminal block assembler if tolerates. Single antiplatelet lifelong High intensity [...] conversationally dyspneic. No new orders re ceived. cnc machinist 2nd shift RN updated on pt clinical course over [...] Jr., MD - 09/29/2023 8:22 AM EDT [facility] Cardiology /Electrophysiology Progress Note CC: NSTEMI, s/p PCI HPI / Interval History: Mr. 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 On 09/18/23, he had total left hip replacement surgery at [facility]. He was discharged to SNF. He developed dyspnea and was transferredto [facility] with +NSTEMI, negative CTA for PE. Had a LHC at [facility] with severe mCAD. He was transferred to [facility] for PCI with Dr. Nichole. He had successful PCI on 09/25 with IVLand NROIS placed to ostial RCA, LMCA, ostial and proximal LAD. His ostial LCX BISQUE TILE BURNER is heavily calcified- for medical management. His echocardiogram at [place] showed LVEF of 25%, with lateral wall hypokinetic, mild-mod mitral valve insufficiency (at [place] on 09/23/23. Following PCI, having heart failure [...] awaiting transfer to Ortho rehab hospital in [place] 2. HFrEF 25%/ Ischemic cardiomyopathy, stage C, [...] UTI, uncomplicated - Received C&S results from [place], +ecoli in urine. Sensitive to cephalosporins. Continue [...] I.S., C&DB. He was to go to [place] [facility]. Care Management/TCC involved with [...] follow up with [facility] (Dr. Kruse). [id number] Score for Atrial Fibrillation Stroke Risk Risk Factors C CHF Yes, 1 H HTN Yes, 1 A2 Age >= 75 Yes, 2 D DM No, 0 S2 Prior Stroke/TIA Yes, 2 V Vascular Disease No, 0 A Age 65-74 No, 0 Sc Sex Male, 0 [id number] Score 6 Calculator: [id number] risk stratification score for estimation of stroke [...] D1 with proximal 70% lesion Ostial LCX BISQUE TILE BURNER heavily calcified with no collaterals Severely calcified [...] original note were not included. PHYSICAL THERAPY [facility] Treatment Note Name/MRN: Eben Cruz ([id number]) Date of : 1945 Age: 78 y.o. Room/Bed: 1C-130/1C-130 A Discharge Recommendation: Usp Facility Equipment Needed: No Other: He has [...] Nichole MD - 09/28/2023 8:52 AM EDT [facility] [place] [facility] [place]Electrophysiology Progress Note CC: NSTEMI, s/p PCI HPI / Interval History: Mr. 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 On 09/18/23, he had total left hip replacement surgery at [facility]. He was discharged to SNF. He developed dyspnea and was transferredto [facility] with +NSTEMI, negative CTA for PE. Had a LHC at [facility] with severe mCAD. He was transferred to [facility] for PCI with Dr. Nichole. He had successful PCI on 09/25 with IVLand NORIS placed to ostial RCA, LMCA, ostial and proximal LAD. His ostial LCX BISQUE TILE BURNER is heavily calcified- for medical management. His echocardiogram at [place] showed LVEF of 25%, with lateral wall hypokinetic, mild-mod mitral valve insufficiency (at [place] on 09/23/23. Following PCI, having heart failure [...] BP permits. TCC working on placement in [facility] in [place]. 2. HFrEF 25%/ Ischemic cardiomyopathy, stage C, [...] UTI, uncomplicated - Received C&S results from [place], +ecoli in urine. Sensitive to cephalosporins. Continue [...] I.S., C&DB. He was to go to [place]. Care Management/TCC involved with [...] Will need rehab, and follow up with [facility] (Dr. Kurse). [id number] Score for Atrial Fibrillation Stroke Risk Risk Factors C CHF Yes, 1 H HTN Yes, 1 A2 Age >= 75 Yes, 2 D DM No, 0 S2 Prior Stroke/TIA Yes, 2 V Vascular Disease No, 0 A Age 65-74 No, 0 Sc Sex Male, 0 [id number] Score 6 Calculator: [id number] risk stratification score for estimation of stroke [...] D1 with proximal 70% lesion Ostial LCX BISQUE TILE BURNER heavily calcified with no collaterals Severely calcified [...] EFBP, PLVEF, LVEFPHYS, LVEF2D, EF Elisa Goldstein, EXECUTIVE CREATIVE DIRECTOR - GAS LEAK INSPECTOR Date Of Service 09/28/2023 I, Dr. Amos [...] original note were not included. PHYSICAL THERAPY [facility] Initial Evaluation Name/MRN: Eben Cruz ([id number]) Evaluation Date: 09/27/2023 Date of : 1945 Admission Date: 09/25/2023 12:49 PM Age: 78 y.o. Room/Bed: 1C-130/1C-130 A Discharge Recommendation: Usp Facility Equipment Needed: No Other: He has a walker and a cane at home to use. Assessment IMPRESSION: Eben Cruz was admitted on 09/25/23 with NSTEMI. He has had PCI with 3 stents and lithotripsy. He came from [facility] where he had left hip surgery. [...] left hip total replacement on 09/18/23 in [place]. Prognosis: good Performance Deficits /Impairments: Increased Pain, Decreased Functional Mobility, Decreased Strength, Decreased Safety Awareness, Decreased Endurance, Decreased Balance, Decreased High Level IADLs, Decreased Fine Motor Control, Decreased Coordination, and Decreased Posture Decision Making: Medium Complexity Subjective NSTEMI in patient who had a complex total hip replacement on 09/18/23 at [facility]. Nurse was okay with OOB to chair. He became dizzy, complained of chest pain, and this therapist assisted him back to bed. (10 min) Pain: RN managing pain. Past Medical History: Past Medical History: Diagnosis Date Adverse effect of anesthesia Arthritis Coronary artery disease Delayed emergence from general anesthesia Hypertension Stroke ([facility]) Past Surgical History: Past Surgical History: Procedure Laterality Date CARDIAC CATHETERIZATION N/A 09/26/2023 Performed by Amos Nichole MD at [facility] Cardiac Cath/EP Lab CARDIAC CATHETERIZATION N/A 09/26/2023 Performed by Amos Nichole MD at [facility] Cardiac Cath/EP Lab HERNIA REPAIR INVASIVE VASCULAR PROCEDURE N/A 09/26/2023 Performed by Amos Nichole MD at [facility] Cardiac Cath/EP Lab JOINT REPLACEMENT both hip replacements, L shoulder Admission Diagnosis: Patient Active Problem List Diagnosis Date Noted Coronary artery disease of [place] artery of [place] heart with stable angina pectoris ([facility]) 09/25/2023 Medical Precautions: No active isolations Proper [...] Needs Assist Receives Help From: Family Active Director Energy: No Prior Level of Function ADL Assistance: [...] Raw Score (No Stairs) : 9 [facility] Score: Transferred to chair/commode Plan Pt would [...] of Care supervision is transferred to a [facility] Therapy Services Physical Therapist. Goals and/or treatment plan was established in collaboration with patient/family/other representatives. * Amos Nichole MD - 09/27/2023 10:15 AM EDT [facility] [place] [facility] [place] /Electrophysiology Progress Note CC: NSTEMI HPI / Interval History: Mr. 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 On 09/18/23, he had total left hip replacement surgery at [facility]. He was discharged to SNF. He developed dyspnea and was transferredto [facility] with +NSTEMI, negative CTA for PE. Had a LHC at [facility] with severe mCAD. He was transferred to [facility] for PCI with Dr. Nichole. He had successful PCI on 09/25 with IVLand NORIS placed to ostial RCA, LMCA, ostial and proximal LAD. His ostial LCX BISQUE TILE BURNER is heavily calcified- for medical management. His echocardiogram at [place] showed LVEF of 25%, with lateral wall hypokinetic, mild-mod mitral valve insufficiency (at [place] on 09/23/23. Last night he developed dyspnea [...] also s/p left hip arthroplasty. While at [facility], urine culture completed with results of [...] UTI, uncomplicated - Received C&S results from [place], +ecoli in urine. Sensitive to cephalosporins. Continue [...] for eventual discharge to Ortho Rehab at [facility]. TCC/Discharge planning involved. On Abx for [...] D1 with proximal 70% lesion Ostial LCX BISQUE TILE BURNER heavily calcified with no collaterals Severely calcified ostial RCA(90%) lesion, mid(30%) and distal RCA(50%) Successful IVUS guided Intravascular Lithotripsy and NORIS of ostial RCA. Successful IVUS guided Intravascular Lithotripsy and NORIS of LMCA. Successful IVUS guided Intravascular Lithotripsy and NORIS of ostial and proximal LAD. Plan DAPT for at least 1 year and terminal block assembler if tolerates. Single antiplatelet lifelong High intensity [...] EFBP, PLVEF, LVEFPHYS, LVEF2D, EF Elisa Goldstein, EXECUTIVE CREATIVE DIRECTOR - [facility] Date Of Service 09/27/2023 I, Dr. Amos [...] be monitored and followed by the diet poultry field service technician. DEVORA Lares * MELISSA Jones CNP [...] will start GDMT in am ([facility] and [place]). Right femoral site without bleeding or hematoma. Sheath was removed, dressing dry and intact. documented in this [facility]04-18-2024 NoteOrthopedic Progress Note Name: Eben Cruz Date:10/04/2023 Attending:Amos Nichole MD Subjective CHIEF COMPLAINT: status post left anterior hip arthroplasty on 09/17 at [place] HPI: Patient is seen resting in bed. [...] Problem List Diagnosis Coronary artery disease of [place] artery of [place] heart with stable angina pectoris ([facility]) HFrEF (heart failure with reduced ejection fraction) ([facility]) PAST SURGICAL HISTORY Past Surgical History: Procedure Laterality Date CARDIAC CATHETERIZATION N/A 09/26/2023 Performed by Amos Nichole MD at [facility] Cardiac Cath/EP Lab CARDIAC CATHETERIZATION N/A 09/26/2023 Performed by Amos Nichole MD at [facility] Cardiac Cath/EP Lab HERNIA REPAIR INVASIVE VASCULAR PROCEDURE N/A 09/26/2023 Performed by Amos Nichole MD at [facility] Cardiac Cath/EP Lab JOINT REPLACEMENT both hip [...] 650 mg, Rectal, q6h PRN, Ashleigh Zuletaiafijojo, EXECUTIVE CREATIVE DIRECTOR - GAS LEAK INSPECTOR amiodarone (Pacerone) tablet 400 mg, 400 mg, Oral, BID, Elisa Goldstein, EXECUTIVE CREATIVE DIRECTOR - GAS LEAK INSPECTOR, 400 mg at 10/04/23 0940 apixaban (Eliquis) tablet 5 mg, 5 mg, Oral, BID, Christopher Salcedo DO, 5 mg at 10/04/23940 ascorbic acid (Vitamin C) tablet 500 mg, 500 mg, Oral, Daily, Ashleigh Perkins Puliafijojo, EXECUTIVE CREATIVE DIRECTOR - GAS LEAK INSPECTOR, 500 mg at 10/04/2340 aspirin EC tablet 81 mg, 81 mg, Oral, Daily, Ashleigh B Puliafico, EXECUTIVE CREATIVE DIRECTOR - GAS LEAK INSPECTOR, 81 mg at 10/04/23 09 atorvastatin (Lipitor) tablet 40 mg, 40 mg, Oral, Daily, Ashleigh Zuletaiakylah, EXECUTIVE CREATIVE DIRECTOR - GAS LEAK INSPECTOR, 40 mg at 10/04/23 09 Calcium Carb-Cholecalciferol 500-5 MG-MCG per tablet 1 tablet, 1 tablet, Oral, Daily, Elisa Goldstein EXECUTIVE CREATIVE DIRECTOR - GAS LEAK INSPECTOR, 1 tablet at 10/04/23 09 clopidogrel (Plavix) tablet 75 mg, 75 mg, Oral, Daily, Ashleigh Zuletaiafijojo, EXECUTIVE CREATIVE DIRECTOR - GAS LEAK INSPECTOR, 75 mg at 10/04/23 0942 dapagliflozin (Farxiga) tablet 10 mg, 10 mg, Oral, Daily, Charlette Borrero MD, 10 mg at 10/04/23 1129 ipratropium-albuterol (Duo-Neb) 0.5-2.5 mg/3 mL nebulizer solution 3 mL, 3 mL, Nebulization, q8h PRN, Elisa Goldstein, EXECUTIVE CREATIVE DIRECTOR - GAS LEAK INSPECTOR, 3 mL at 10/02/232155 melatonin tablet 10 [...] 40 mg, Oral, qAM AC, Ashleigh Morrison, EXECUTIVE CREATIVE DIRECTOR - GAS LEAK INSPECTOR, 40 mg at 10/04/23 0610 polyethylene glycol (PEG) 3350 (Miralax) packet 17 g, 17 g, Oral, Daily, Yajaira Thakkar, EXECUTIVE CREATIVE DIRECTOR - GAS LEAK INSPECTOR, 17 g at 09/29/23 0750 promethazine (Phenergan) [...] Not on file St (more content not included)...[facility]04-18-2024 NoteCare Management Progress Note TCC faxed LifeVest order and referral packet to [phone]. TCC spoke with Deven Kumar [phone] auth should take a few hours and [...] RN 10/02/2023 8:01 AM [facility] 10/03/2023 Vivienne Wilson RN 10/01/2023 11:05 AM Arminda Lawler RN 09/26/2023 9:06 AM 09/27/2023 Ashleigh Morrison APRN - GELY 09/25/2023 1:40 PM Length of Stay (Days): 9 GMLOS: [address] [place], [place] [id number] [facility] Wound Care Progress Note Eben Cruz [...] stenosis in 04/2023. He is known to [facility] outpatient. Had C in 2013 with non-obstructive CAD (per pt). NST 06/21/22 showed preserved EF, no ischemia. On 09/18/23, had total left hip replacement surgery at [facility]. Had complicated course requiring wound vac. Discharged to [facility] (SNF). Wound Care consulted for left hip wound. Patient states he had a hip replacement surgery on 09/18/23 at [facility]. Patient resting in bed. PAST MEDICAL HISTORY Past Medical History: Diagnosis Date Adverse effect of anesthesia Arthritis Coronary artery disease Delayed emergence from general anesthesia Hypertension Stroke (HCC) PAST SURGICAL HISTORY Past Surgical History: Procedure Laterality Date CARDIAC CATHETERIZATION N/A 09/26/2023 Performed by Amos Nichole MD at [facility] Cardiac Cath/EP Lab CARDIAC CATHETERIZATION N/A 09/26/2023 Performed by Amos Nichole MD at [facility] Cardiac Cath/EP Lab HERNIA REPAIR INVASIVE VASCULAR PROCEDURE N/A 09/26/2023 Performed by Amos Nichole MD at 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 SAFETY MANAGER -follow up with surgeon when discharged Nutritional [...] and to reflect my (more content not included)...[facility]04-18-2024 NoteCare Management Progress Note Chart reviewed. Patient [...] needing Lifevest set up. TCC called Vivienne [phone] and Luis [phone] from [employer] and . Lifevest set up pending. Addendum: TCC called [employer]est [phone]. TCC directed to call Deven [phone]. No answer; LVM. Discharge Plan: [facility] SN[facility]. Awaiting Lifevest set up, clinical stability [...] RN 10/02/2023 8:01 AM pending [facility]p [facility] 10/03/2023 Vivienne Wilson RN 10/01/2023 11:05 AM Arminda Lawler RN 09/26/2023 9:06 AM 09/27/2023 Ashleigh Morrison APRN - GELY 09/25/2023 1:40 PM Length of Stay (Days): 9 GMLOS: 4.6[facility]04-18-2024 NoteTC notes LACE & Readmission Score >58. TCC completed referral to Ambulatory Transition Care Team. [facility]04-18-2024 NoteReferral placed to [facility] via Careport per TCC request. Await review and response regarding ability to accept. TCC notified. [facility]04-18-2024 [facility] [place] [facility] [place]iology /Electrophysiology Progress Note HPI / Interval History: Mr. Cruz is a 78 YO M known to Dr. Paredes ([place] [facility]) who has a Pmhx of HTN, HLD, recent hip replacement (09/18/23) and R parietal CVA with high grade R external carotid stenosis in 04/2023 who presented from [place] for high risk PCI. Dr. Nichole performed [...] BP. Continue Aldactone. Plan on discharge to [facility] tomorrow. Follow up w Wanigan Clerk in [place] has been arranged. Atrial Fibrillation/ Flutter with [...] 1.19 1.09 Recent Labs (more content not included)...[facility]04-17-2024 Note [facility]. Await review and response regarding ability to accept. [facility] notified. [place] [address]-17-2024 NoteCare Management Progress Note Patient remains on 1C s/p Cardioversion 10/01, Thoracentesis today. PT/OT recommending SNF. Jennifer at [facility] contacted for bed availability and confirmed they have SNF beds available. Requested an updated OT note to start insurance auth. Requested TOOL CHASER send AUG, updated PT note and Cardiology [...] RN 10/02/2023 8:01 AM pending [facility]p [facility] 10/03/2023 Vivienne Wilson RN 10/01/2023 11:05 AM Arminda Lawler RN 09/26/2023 9:06 AM 09/27/2023 Ashleigh Morrison, EXECUTIVE CREATIVE DIRECTOR - GAS LEAK INSPECTOR 09/25/2023 1:40 PM Length of Stay (Days): 8 LOS: [address] [place], [place] [id number] [facility] Wound Care Progress Note Eben Cruz [...] stenosis in 04/2023. He is known to [facility] outpatient. Had C in 2013 with non-obstructive CAD (per pt). NST 06/21/22 showed preserved EF, no ischemia. On 09/18/23, had total left hip replacement surgery at [facility]. Had complicated course requiring wound vac. Discharged to [facility] (SNF). Wound Care consulted for left hip wound. Patient states he had a hip replacement surgery on 09/18/23 at [facility]. Patient sitting up in chair eating breakfast. PAST MEDICAL HISTORY Past Medical History: Diagnosis Date Adverse effect of anesthesia Arthritis Coronary artery disease Delayed emergence from general anesthesia Hypertension Stroke (HCC) PAST SURGICAL HISTORY Past Surgical History: Procedure Laterality Date CARDIAC CATHETERIZATION N/A 09/26/2023 Performed by Amos Nichole MD at [facility] Cardiac Cath/EP Lab CARDIAC CATHETERIZATION N/A 09/26/2023 Performed by Amos Nichole MD at [facility] Cardiac Cath/EP Lab HERNIA REPAIR INVASIVE VASCULAR PROCEDURE N/A 09/26/2023 Performed by Amos Nichole MD at 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 PMHx includes: HTN, HLD, partial R CVA. At [facility] for L total hip replacement but complicated by requirement of wound vac, was at SNF. transferred to [place] for cardiology NSTEMI, transferred to [facility] for PCI. Family called with stating he [...] other systems were reviewed and are negative. 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 Pulses: Normal pulse (more content not included)...[facility] 10-03-2023 [facility] [place] [facility] [place] /Electrophysiology Progress Note CC: CAD HPI / Interval History: Mr. 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 On 09/18/23, he had total left hip replacement surgery at [facility]. He had a NSTEMI and was transferred to [facility]. On 09/26/23, he had a PCI with IVL and NORIS placed to ostial RCA, LMCA, ostial and proximal LAD. His ostial LCX BISQUE TILE BURNER is heavily calcified- for medical management. Echocardiogram [...] left hip. Follow up arranged in his horse race timer office, Dr. Paredes on October 16 at [...] s/p left hip arthroplasty on 09/18/23 in [place] - Ortho consulted. Weight bearing as tolerated. X-ray stable. PT/OT. Will need SNF at discharge. To follow up with surgeon in [place]. HLD - Continue atorvastatin. LDL 39. HTN - Controlled. Had been running low. Continue Toprol xl. Add GDMT as BP tolerates. Debility - PT/OT. Will need SNF at discharge. Goals of care - Palliative care consulted and following. Discussed with Dr. Nichole. Follow up arranged with Dr. Paredes, his primary horse race timer, on October 16 at 2:15. Will need [...] Vascular: No JVD. Cardiovascular (more content not included)...[facility]04-17-2024 [facility] [place] [facility] [place]iology /Electrophysiology Progress Note HPI / Interval History: Mr. Cruz is a 78 YO M known to Dr. Paredes ([facility]) who has a Pmhx of HTN, HLD, recent hip replacement (09/18/23) and R parietal CVA with high grade R external carotid stenosis in 04/2023 who presented from [place] for high risk PCI. Dr. Nichole performed [...] made it out to the front end web developer however was really SOB just doing that. [...] Final 09/25/23 TRANSTHORACIC ECHOCARDIOGRA (more content not included)...[facility]04-16-2024 Consult note* Tomasa Richter MD - 10/02/2023 10:16 PM EDTAssociated Order(s): IP CONSULT TO ORTHOPAEDIC SURGERY Images from the original note were not included. Ortho Consult Patient: Eben Cruz Date of : 1945 Acct: [id number] PCP: Iwona Stewart Date of Admission: 09/25/2023 Date of Service: Pt seen/examined on 10/02/2023 Chief Complaint: S/p L anterior hip arthroplasty 09/17 History Of Present Illness: This is a 78 y.o. male status post left anterior hip arthroplasty on 09/[address] Schreiber in [place]. Patient was transferred to [facility] for cardiac cath after surgery. This is a failed attempt therefore he was transferred to [facility] for further cardiac care. He stateshe is [...] 09/26/2023 Performed by Amos Nichole MD at [facility] Cardiac Cath/EP Lab CARDIAC CATHETERIZATION N/A 09/26/2023 Performed by Amos Nichole MD at [facility] Cardiac Cath/EP Lab HERNIA REPAIR INVASIVE VASCULAR PROCEDURE N/A 09/26/2023 Performed by Amos Nichole MD at [facility] Cardiac Cath/EP Lab JOINT REPLACEMENT both hip [...] mg, Rectal, q6h PRN, Ashleigh Perkins Puliafico, EXECUTIVE CREATIVE DIRECTOR - GAS LEAK INSPECTOR amiodarone (Pacerone) tablet 400 mg, 400 mg, Oral, BID, Elisa Goldstein, EXECUTIVE CREATIVE DIRECTOR - GAS LEAK INSPECTOR, 400 mg at 10/02/232037 [Held by provider] apixaban (Eliquis) tablet 5 mg, 5 mg, Oral, BID, Ashleigh B Puliafico, EXECUTIVE CREATIVE DIRECTOR - GAS LEAK INSPECTOR, 5 mg at 10/02/23845 ascorbic acid (Vitamin C) tablet 500 mg, 500 mg, Oral, Daily, Ashleigh B Puliafico, EXECUTIVE CREATIVE DIRECTOR - GAS LEAK INSPECTOR, 500 mg at 10/02/23 0846 aspirin EC tablet 81 mg, 81 mg, Oral, Daily, Ashleigh B Puliafico, EXECUTIVE CREATIVE DIRECTOR - GAS LEAK INSPECTOR, 81 mg at 10/02/23 0845 atorvastatin (Lipitor) tablet 40 mg, 40 mg, Oral, Daily, Ashleigh Mccabefico, EXECUTIVE CREATIVE DIRECTOR - GAS LEAK INSPECTOR, 40 mg at 10/02/23 0846 clopidogrel (Plavix) tablet 75 mg, 75 mg, Oral, Daily, Ashleigh Perkins Puliafico, EXECUTIVE CREATIVE DIRECTOR - GAS LEAK INSPECTOR, 75 mg at 10/02/23 0845 ipratropium-albuterol (Duo-Neb) 0.5-2.5 mg/3 mL nebulizer solution 3 mL, 3 mL, Nebulization, q8h PRN, Elisa Goldstein, EXECUTIVE CREATIVE DIRECTOR - GAS LEAK INSPECTOR, 3 mL at 10/02/232155 melatonin tablet 10 [...] 40 mg, Oral, qAM AC, Ashleigh Zuletaiafico, EXECUTIVE CREATIVE DIRECTOR - GAS LEAK INSPECTOR, 40 mg at 10/01/23 0548 polyethylene glycol (PEG) 3350 (Miralax) packet 17 g, 17 g, Oral, Daily, Yajaira Thakkar, EXECUTIVE CREATIVE DIRECTOR - GAS LEAK INSPECTOR, 17 g at 09/29/23 0750 promethazine (Phenergan) tablet 12.5 mg, 12.5 mg, Oral, q6h PRN, Cliff Cast Jr., MD [Held by provider] spironolactone (Aldactone) tablet 12.5 mg, 12.5 mg, Oral, Daily, Elisa GoldsteinEXECUTIVE CREATIVE DIRECTOR - GAS LEAK INSPECTOR, 12.5 mg at 09/27/23 0906 [Held by provider] torsemide (Demadex) tablet 10 mg, 10 mg, Oral, Daily, Cliff Cast Jr., MD, 10mg at 10/01/23 0757 [Held by provider] valsartan (Diovan) tablet 40 mg, 40 mg, Oral, Daily, Elisa Goldstein, EXECUTIVE CREATIVE DIRECTOR - GAS LEAK INSPECTOR,40 mg at 09/27/23 1045 Allergies: Entresto [sacubitril-valsartan] [...] left anterior hip arthroplasty on 09/17 at [place] PLAN: -wD/W Dr. Guzman -No acute surgical intervention -WBAT -Activity as tolerated -Ice -PT/OT as able -Neurovascular checks -Skin checks -Follow-up outpatient w/ Dr. Schreiber -Dispo per primary -Orthopaedic surgery will sign off. Please page saturation equipment operator orthopaedic resident for questions or concerns. Tomasa Richter MD PGY-2 Orthopaedic Surgery * Charlette Borrero MD - 10/01/2023 1:39 PM EDTAssociated Order(s): IP CONSULT TO CARDIOLOGY [facility] [place] [facility] [place] /Electrophysiology Consult Note Reason for Consult/Chief Complaint: HFrEF Referring provider: Dr. Nichole Established horse race timer: Dr. Paredes History of Present Illness: Eben Cruz is a 78 y.o. male known to Dr. Paredes ([facility]) who has a Pmhx of HTN,HLD, recent hip replacement (09/18/23) and R parietal CVA with high grade R external carotid stenosisin 04/2023 who presented from [place] for high risk PCI after presenting there as an NSTEMI. HF team asked to see him for HFrEF and concern for low output heart failure. He underwent complex PCI on 09/26/[address] Nichole including NORIS x 3 LM, ostial LAD, and RCA. Lcx BISQUE TILE BURNER and heavily calcified without collaterals. LVEDP at the time of the [facility] was 19 mmHg. TTE performedon 09/30/23 [...] with mild diffuse disease. Left Circumflex: Ostial BISQUE TILE BURNER Right Coronary: Moderate calcified vessel with ostial 90% severely calcified lesion. Mid 30% and distal 50% calcified lesion. Right Posterior Descending: Small vessel with mild disease Right Posterolateral: Small vessel with mild disease Collaterals: None Access: Right FINAL INSPECTOR BALANCE WHEEL under US and fluoroscopic guidance Coronary Intervention Patient was anticoagulated with IV heparin with therapeutic ACT maintained. Patient was already on DAPT. The right coronary artery was cannulated with a 7 Urdu HS 2 guide catheter. A Hi Torque floppy guidewire was advanced across the ostial RCA stenosis and positioned into the distal vessel. IVUSimaging was performed. The lesion was predilated with a 3.0 x 20 mm NC balloon. Next, Intravascularlithotripsy was performed with a 3.5 x 12 mm shockwave balloon. This was followed by treatment of the lesion with a 3.5 x 15 mm Douglas cutting balloon. Finally the lesion was stented [...] lesion with a 3.25 x 15 mm Douglas cutting balloon. Finally the lesion was stented [...] D1 with proximal 70% lesion Ostial LCX BISQUE TILE BURNER heavily calcified with no collaterals Severely calcified ostial RCA(90%) lesion, mid(30%) and distal RCA(50%) Successful IVUS guided Intravascular Lithotripsy and NORIS of ostial RCA. Successful IVUS guided Intravascular Lithotripsy and NORIS of LMCA. Successful IVUS guided Intravascular Lithotripsy and NORIS of ostial and proximal LAD. Plan DAPT for at least 1 year and terminal block assembler if tolerates. 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 PMHx includes: HTN, HLD, partial R CVA. At [facility] for L total hip replacement but complicated by requirement of wound vac, was at SNF. transferred to [place] for cardiology NSTEMI, transferred to [facility] for PCI. Family called with stating he [...] 09/26/2023 Performed by Amos Nichole MD at [facility] Cardiac Cath/EP Lab CARDIAC CATHETERIZATION N/A 09/26/2023 Performed by Amos Nichole MD at [facility] Cardiac Cath/EP Lab HERNIA REPAIR INVASIVE VASCULAR PROCEDURE N/A 09/26/2023 Performed by Amos Nichole MD at [facility] Cardiac Cath/EP Lab JOINT REPLACEMENT both hip replacements, L shoulder No family history on file. Unable to obtain family history due to parents have Allergies Allergen Reactions Entresto [Sacubitril-Valsartan] Nausea And Vomiting Wool Alcohol [Lanolin] Review of Systems ROS: See palliative care ROS/ESAS below; All other systems were reviewed and are negative. 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 [facility] Wound Care CONSULT Note Eben Cruz AGE: 78 y.o. GENDER: male : 1945 Subjective: HISTORY of PRESENT ILLNESS HPI Eben Cruz is a 78 y.o. male who presents for a wound consult. HPI: Eben Cruz is a 78 y.o. 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 He is known to [facility] outpatient. Had LHCin 2013 with non-obstructive CAD (per pt). NST 06/21/22 showed preserved EF, no ischemia. On 09/18/23, had total left hip replacement surgery at [facility]. Had complicated course requiringwound vac. Discharged to [facility] (SNF). Wound Care consulted for left hip wound. Patient states he had a hip replacement surgery on 09/18/23 at [facility]. RN at bedside and states he admitted with a Prevena to left hip- statesit was removed yesterday. PAST MEDICAL HISTORY Past Medical History: Diagnosis Date Adverse effect of anesthesia Arthritis Coronary artery disease Delayed emergence from general anesthesia Hypertension Stroke (HCC) PAST SURGICAL HISTORY Past Surgical History: Procedure Laterality Date CARDIAC CATHETERIZATION N/A 09/26/2023 Performed by Amos Nichole MD at [facility] Cardiac Cath/EP Lab CARDIAC CATHETERIZATION N/A 09/26/2023 Performed by Amos Nichole MD at [facility] Cardiac Cath/EP Lab HERNIA REPAIR INVASIVE VASCULAR PROCEDURE N/A 09/26/2023 Performed by Amos Nichole MD at 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 Any questions or concerns please secure chat [facility] wound/ostomy. Thank you for the consult! I [...] Eben Cruz. Patient prefers cardiac rehab at [place]. Given information on cardiac rehab at preferred location. documented in this [facility]04-16-2024 NotePatient: Eben Cruz Procedure Summary Date: 10/02/23 Room / Location: [facility] Cath/EP Lab Anesthesia Start: 1220 Anesthesia Stop: [...] discharged once all PACU criteria has been met.[facility] [id number] NotePatient: Eben Vines Deibel Procedure Summary Date: 10/02/23 Room / Location: [facility] Cath/EP Lab Anesthesia Start: 1220 Anesthesia Stop: [...] Patient reports no pain in PACU ([id number]) [id number] Anesthesiology Smoking Abstinence The patient is [...] Allowed opportunity for questions and acknowledgement of understanding.[facility]04-16-2024 NotePatient: Eben Cruz Procedure Information Date/Time: 10/02/23 1200 Scheduled providers: Jefry Fleming MD Procedure: CARDIOVERSION EXTERNAL Location: [facility] Cath/EP Lab Relevant Problems Cardio (+) Coronary artery disease of [place] artery of [place] heart with stable angina pectoris (HCC) Past Medical History: Past Medical History: No date: Adverse effect of anesthesia No date: Arthritis No date: Coronary artery disease No date: Delayed emergence from general anesthesia No date: Hypertension No date: Stroke (HCC) Past Surgical History: Past Surgical History: 09/26/2023: CARDIAC CATHETERIZATION; N/A Comment: Performed by Amos Nichole MD at [facility] Cardiac Cath/EP Lab 09/26/2023: CARDIAC CATHETERIZATION; N/A Comment: Performed by Amos Nichole MD at [facility] Cardiac Cath/EP Lab No date: HERNIA REPAIR 09/26/2023: INVASIVE VASCULAR PROCEDURE; N/A Comment: Performed by Amos Nichole MD at [facility] Cardiac Cath/EP Lab No date: JOINT REPLACEMENT [...] 2:1 AV block Nonspecific repol abnormality, diffuse [facility] [id number] [facility] Wound Care Progress Note Eben Cruz [...] stenosis in 04/2023. He is known to [facility] outpatient. Had [facility] in 2013 with non-obstructive CAD (per pt). NST 06/21/22 showed preserved EF, no ischemia. On 09/18/23, had total left hip replacement surgery at [facility]. Had complicated course requiring wound vac. Discharged to [facility] (SNF). Wound Care consulted for left hip wound. Patient states he had a hip replacement surgery on 09/18/23 at [facility]. Patient sitting up in chair. Family at bedside. PAST MEDICAL HISTORY Past Medical History: Diagnosis Date Adverse effect of anesthesia Arthritis Coronary artery disease Delayed emergence from general anesthesia Hypertension Stroke (HCC) PAST SURGICAL HISTORY Past Surgical History: Procedure Laterality Date CARDIAC CATHETERIZATION N/A 09/26/2023 Performed by Amos Nichole MD at [facility] Cardiac Cath/EP Lab CARDIAC CATHETERIZATION N/A 09/26/2023 Performed by Amos Nichole MD at [facility] Cardiac Cath/EP Lab HERNIA REPAIR INVASIVE VASCULAR PROCEDURE N/A 09/26/2023 Performed by Amos Nichole MD at [facility] Cardiac Cath/EP Lab JOINT REPLACEMENT both hip [...] to follow Recommend to follow up at [facility] wound care center after hospital discharge. Any [...] been reviewed and e (more content not included)...[facility] 10-02-2023 [facility] [place] [facility] [place]iology /Electrophysiology Progress Note HPI / Interval History: Mr. Cruz is a 78 YO M known to Dr. Paredes ([facility]) who has a Pmhx of HTN, HLD, recent hip replacement (09/18/23) and R parietal CVA with high grade R external carotid stenosis in 04/2023 who presented from [place] for high risk PCI. Dr. Nichole performed [...] No results found fo (more content not included)...[facility] 10-02-2023 [facility] [place] [facility] [place]iology /Electrophysiology Progress Note HPI / Interval [...] is soft. Musculoskeletal: General (more content not included)...[facility] [id number] Note OCCUPATIONAL THERAPY [facility] Initial Evaluation Name/MRN: Eben Cruz ([id number]) Evaluation Date: 10/01/2023 Date of : 1945 [...] spoke with Renate from therapy department at [facility], where patient was at prior to admission to this facility. Renate states that patient is WBAT with anterior hip precautions. Pain: RN managing pain. Past Medical History: Past Medical History: Diagnosis Date Adverse effect of anesthesia Arthritis Coronary artery disease Delayed emergence from general anesthesia Hypertension Stroke ([facility]) Past Surgical History: Past Surgical History: Procedure Laterality Date CARDIAC CATHETERIZATION N/A 09/26/2023 Performed by Amos Nichole MD at [facility] Cardiac Cath/EP Lab CARDIAC CATHETERIZATION N/A 09/26/2023 Performed by Amos Nichole MD at [facility] Cardiac Cath/EP Lab HERNIA REPAIR INVASIVE VASCULAR PROCEDURE N/A 09/26/2023 Performed by Amos Nichole MD at 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 L hip fracture - [place] - he continues to have sutures LLE, I did not see on paper chart when to be taken out Risk for constipation - no longer feels constipated, BM today - changed prn polyethylene glycol to schedule Insomnia, depression, poor appetite - major life change - his community powder nipper is coming to visit today - aware unfortunately antidepressants can affect heart and will not be starting at this time, his community powder nipper did visit and was helpful, just expresses [...] independently at home, 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 PMHx includes: HTN, HLD, partial R CVA. At [facility] for L total hip replacement but complicated by requirement of wound vac, was at [facility]. transferred to [place] for cardiology NSTEMI, transferred to [facility] for PCI. Family called with stating he [...] other systems were reviewed and are negative. 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 Family Meeting: (if discussing Advanced Care [...] Right eye: No disc (more content not included)...[facility] 10-01-2023 [facility] [place] [facility] [place]iology /Electrophysiology Progress Note HPI / Interval [...] I.S., C&DB. He was to go to [facility]. Care Management/TCC involved with this. [facility] on discharge HLD - LDL 39. Continue [...] Skin is not j (more content not included)...[facility] 09-30-2023 NoteProblem: Potential for Compromised Skin Integrity Goal: Skin Integrity is Maintained or Improved Outcome: ProgressingMy[facility]04-12-2024 NoteCare Management Progress Note Patient remains on 1 Central ~ off IV amiodarone - per RN BP and HR better. Palliative and Cardiology following. Palliative Care Consulted. Has PT/OT orders - will need rehab of hip surgery. Patient was still inpatient at [place] - will need auth from [place] [facility] - they can see in care port but not respond - Jun [phone]. [place] would not have bed until earliest Sunday. Task sent for PT/OT to see Discharge Plan: [facility] (SNF bed) - TCC and SW cont to follow. Discharge Milestones and Delays Discharge Milestones Place discharge order Complete med reconciliation Case mgmt discharge readiness Clinical Stability Diagnsotic Workup Expected Discharge History Expected Date/Time Set By Reviewed At Arminda Lawler RN 09/26/2023 9:06 AM 09/27/2023 Ashleigh Morrison APRN - GELY 09/25/2023 1:40 PM Length of Stay (Days): 3 GMLOS: No GMLOS DocumentedMyMichigan Medical [facility]04-12-2024 [facility] [place] [facility] Cardiology /Electrophysiology Progress Note CC: NSTEMI, s/p PCI HPI / Interval History: Mr. 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 On 09/18/23, he had total left hip replacement surgery at [facility]. He was discharged to SNF. He developed dyspnea and was transferred to [facility] with +NSTEMI, negative CTA for PE. Had a LHC at [facility] with severe mCAD. He was transferred to [facility] for PCI with Dr. Nichole. He had successful PCI on 09/25 with IVL and NORIS placed to ostial RCA, LMCA, ostial and proximal LAD. His ostial LCX BISQUE TILE BURNER is heavily calcified- for medical management. His echocardiogram at [place] showed LVEF of 25%, with lateral wall hypokinetic, mild-mod mitral valve insufficiency (at [place] on 09/23/23. Following PCI, having heart failure [...] on placement [facility] [place]. 2. HFrEF 25%/ Ischemic cardiomyopathy, stage C, [...] UTI, uncomplicated - Received C&S results from [place], +ecoli in urine. Sensitive to cephalosporins. Continue [...] I.S., C&DB. He was to go to [facility]. Care Management/TCC involved with [...] Will need rehab, and follow up with [facility] (Dr. Kruse). [id number] Score for Atrial Fibrillation Stroke Risk Risk Factors C CHF Yes, 1 H HTN Yes, 1 A2 Age >= 75 Yes, 2 D DM No, 0 S2 Prior Stroke/TIA Yes, 2 V Vascular Disease No, 0 A Age 65-74 No, 0 Sc Sex Male, 0 [id number] Score 6 Calculator: [id number] risk stratification score for estimation of stroke ris (more content not included)...[facility]04-12-2024 Hospital Discharge instructions* Discharge Instructions* Elisa Goldstein, EXECUTIVE CREATIVE DIRECTOR - GAS LEAK INSPECTOR - 09/28/2023 10:33 AM EDT Images from [...] to fill your medications, please call your [place] Clerk immediately. The office number is located with [...] for three days. GIVE PCI PACKET (FROM LEVEL VIAL INSPECTOR AND TESTER) TO PATIENT Give Coronary Artery Discharge Book. [...] to fill your medications, please call your [place] Clerk immediately. The office number is located with [...] for three days. GIVE PCI PACKET (FROM LEVEL VIAL INSPECTOR AND TESTER) TO PATIENT Give Coronary Artery Discharge Book. [...] to fill your medications, please call your [place] Clerk immediately. The office number is located with [...] for three days. GIVE PCI PACKET (FROM LEVEL VIAL INSPECTOR AND TESTER) TO PATIENT Give Coronary Artery Discharge Book. [...] Cardiac Rehab The Cardiac Rehab team at [facility] consists of highly skilled exercise [...] your heart. We have facilities at both [facility] and [facility]. At both locations we have street level parking which is free and our sites are easily accessible. For both [facility] you can contact us at . We invite you to call us with your questions or to get started in our program. If you have other questions or concerns be sure to ask your provider during your follow up visit. We look forward to seeing you there. Our locations: [facility] [address] [facility] Ground Floor [id number] - Ground floor Orthopaedic Surgery Discharge Instructions: [...] Unit/Room#: 1C-130/1C-130 A Discharging Unit Phone Number: [phone] Emergency Contact: Extended Emergency Contact Information Primary Emergency Contact: Mark Cruz Mobile Relation: Son Preferred language: Sri [place]ankan Layboy Tender needed? No Secondary Emergency Contact: Mark Cruz Mobile Relation: Other Preferred language: [place] Layboy Tender needed? No Past Surgical History: Past Surgical History: Procedure Laterality Date CARDIAC CATHETERIZATION N/A 09/26/2023 Performed by Amos Nichole MD at [facility] Cardiac Cath/EP Lab CARDIAC CATHETERIZATION N/A 09/26/2023 Performed by Amos Nichole MD at [facility] Cardiac Cath/EP Lab HERNIA REPAIR INVASIVE VASCULAR PROCEDURE N/A 09/26/2023 Performed by Amos Nichole MD at 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 ([facility]) HFrEF (heart failure with reduced ejection fraction) ([facility]) Isolation/Infection: No active isolations No active infections [...] Minimal assistance Toileting Minimal assistance Feeding Independent Telesales Advisor Independent Med Delivery yes Wound Care Documentation [...] Assessment Score: @READMISSIONRISKDETAILS@ Discharging to Facility/ Agency [facility] [address] [place], [place] [address] Dialysis Facility (if applicable) Name: Address: Dialysis Schedule: Phone: Fax: Outpatient Clerk/Frame Table Operator Helper signature: ICIAN SECTION Prognosis: good Condition at Discharge: stable Rehab Potential (if transferring to Rehab): good Recommended Labs or Other Treatments After Discharge: Follow [facility] , life care palliative team to follow at [facility] Physician Certification: I certify the above information and transfer of Eben Cruz is necessary for the continuing treatment of the diagnosis listed and that he requires residential facility for less than 30 days. Update Admission H&P: No change in H&P PHYSICIAN SIGNATURE: documented in this [facility]04-11-2024 NotePHYSICAL THERAPY [facility] Initial Evaluation Name/MRN: Eben Cruz ([id number]) Evaluation Date: 09/27/2023 Date of : 1945 Admission Date: 09/25/2023 12:49 PM Age: 78 y.o. Room/Bed: 1C-130/1C-130 A Discharge Recommendation: Usp Facility Equipment Needed: No Other: He has a walker and a cane at home to use. Assessment IMPRESSION: Eben Cruz was admitted on 09/25/23 with NSTEMI. He has had PCI with 3 stents and lithotripsy. He came from [facility] where he had left hip surgery. [...] left hip total replacement on 09/18/23 in [place]. Prognosis: good Performance Deficits /Impairments: Increased Pain, Decreased Functional Mobility, Decreased Strength, Decreased Safety Awareness, Decreased Endurance, Decreased Balance, Decreased High Level IADLs, Decreased Fine Motor Control, Decreased Coordination, and Decreased Posture Decision Making: Medium Complexity Subjective NSTEMI in patient who had a complex total hip replacement on 09/18/23 at [facility]. Nurse was okay with OOB to [...] 09/26/2023 Performed by Amos Nichole MD at [facility] Cardiac Cath/EP Lab CARDIAC CATHETERIZATION N/A 09/26/2023 Performed by Amos Nichole MD at [facility] Cardiac Cath/EP Lab HERNIA REPAIR INVASIVE VASCULAR PROCEDURE N/A 09/26/2023 Performed by Amos Nichole MD at [facility] Cardiac Cath/EP Lab JOINT REPLACEMENT both hip replacements, L shoulder Admission Diagnosis: Patient Active Problem List Diagnosis Date Noted Coronary artery disease of [place] artery of [place] heart with stable angina pectoris (HCC) 09/25/2023 [...] Needs Assist Receives Help From: Family Active Director Energy: No Prior Level of Function ADL Assistance: [...] up from a chair (more content not included)...[facility] 09-27-2023 NoteCare Management Progress Note Patient remains on 1 Central NSTEMI/CAD s/p IVL with NORIS to LMCA, Ostial and Proximal LAD on 09/25, s/p hip surgery on 09/17 ~ on abx for E coli UTI. Was in [facility] - in their SNF unit - daughter would like patient to return. PT/OT orders in. Called and left for Marvin ([phone]) at [facility] - to see what is needed when patient is ready for discharge. (They have not answered in care port) Received call back from Jennifer at [facility] - to clarify - patient was still in patient at [facility] - auth for [facility] was started on 09/23, patient trasnferred to [facility] on 09/24 - rehab was denied on 09/25. Patient would need auth for [facility] bed - at the earliest they would have a bed would be Saturday 09/30. Patient will need PT/OT to see. Task sent to [facility] - to close RRH referral ending in 123 and leave referral ending in 701 - [facility] can see info on the referral but [...] of Stay (Days): 2 GMLOS: No GMLOS DocumentedMy[facility]04-11-2024 [facility] [place] [facility] [place]Electrophysiology Progress Note CC: NSTEMI HPI / Interval History: Mr. 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 On 09/18/23, he had total left hip replacement surgery at [facility]. He was discharged to SNF. He developed dyspnea and was transferred to [facility] with +NSTEMI, negative CTA for PE. Had a LHC at [facility] with severe mCAD. He was transferred to [facility] for PCI with Dr. Nichole. He had successful PCI on 09/25 with IVL and NORIS placed to ostial RCA, LMCA, ostial and proximal LAD. His ostial LCX BISQUE TILE BURNER is heavily calcified- for medical management. His echocardiogram at [facility] showed LVEF of 25%, with lateral wall hypokinetic, mild-mod mitral valve insufficiency (at [facility] on 09/23/23. Last night he developed dyspnea [...] also s/p left hip arthroplasty. While at [facility], urine culture completed with results of [...] for eventual discharge to Ortho Rehab at [facility]. TCC/Discharge planning involved. On Abx for [...] obese. He is ill-appeari (more content not included)...[facility]04-10-2024 NotePaged that patient has been dyspneic and [...] this time. Doyle Coelho MD Cardiovascular Disease PGY-[place] [address]-10-2024 NoteReturn referral placed to SNF - [facility] via Careport per TCC request. Await review and response regarding ability to accept. TCC notified. [place] [address]-10-2024 NoteReceived call from [facility] stating pt was in their SNF unit. [facility] tasked to send referral. [place] [address]-10-2024 NoteReceived referral and reviewed chart. Phase II Cardiac Rehab Referral discussed with Eben Cruz. Patient prefers cardiac rehab at [facility]. Given information on cardiac rehab at preferred location. [place] [address]-10-2024 NoteReferral placed to RETURN REHAB-[facility] via Careport per TCC request. Await review and response regarding ability to accept. TCC notified. [address]10-2024 NotePatient: Eben Cruz Procedure Summary Date: 09/26/23 Room / Location: [facility] LEVEL VIAL INSPECTOR AND TESTER 3 / 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 LEVEL VIAL INSPECTOR AND TESTER 3 / [facility] Cardiac Cath Labs Anesthesia Start: 946 Anesthesia Stop: 114 Procedures: Percutaneous coronary intervention IVUS - Coronary cath Intravascular lithotripsy Diagnosis: Coronary artery disease of [place] artery of [place] heart with stable angina pectoris (HCC) (Same) [...] Allowed opportunity for questions and acknowledgement of understanding.[facility]04-10-2024 NotePatient: Eben Cruz Procedure Information Date/Time: 09/26/23 1400 Procedure: Percutaneous coronary intervention Location: [facility] LEVEL VIAL INSPECTOR AND TESTER / [facility] Cardiac Cath Labs Providers: Amos Nichole MD Relevant Problems Cardio (+) Coronary artery disease of [place] artery of [place] heart with stable angina pectoris (HCC) Past [...] results found for this or any previous visit.[facility] 09-25-2023 [facility] [place] [facility] [place]iology History and Physical Chief Complaint: CAD History of Present Illness: Eben Cruz is a 78 y.o. 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 He is known to [facility] outpatient. Had LHC in 2013 with non-obstructive CAD (per pt). NST 06/21/22 showed preserved EF, no ischemia. On 09/18/23, had total left hip replacement surgery at [facility]. Had complicated course requiring wound vac. Discharged to [facility]CU (SNF). He c/o SOB. Labs showed elevated d-dimer and troponins and diagnosed with NSTEMI. CTA chest negative for PE. Transferred to [facility] and seen by cardiology. Placed on heparin gtt. On 09/24/23, LHC showed subtotal heavily calcified prox LCx (unable to cross with wire), 50% distal LMCA, 50% calcified ostial and prox RCA, 80% heavily calcified and prox RCA. He was transferred to [facility] for PCI of ostial and prox RCA. [...] TKR; R parietal CVA Apr 2023 PCVHx: [facility] 2013 Non-obstructive CAD Per Pt. Jul 10 negative NST w normal LVfx. HPI: L THR 09/18/23 in [place]. Admitted 09/24/23 [place] w CP rad to L arm. Cath today w Mod calcified intermediate distal LM and LAD disease. LCF prox BISQUE TILE BURNER densely calcified (workhorse wire would not cross); [...] NYHA Classification: Class III Frailty Score :5 [facility] Protocol: No HFrEF 25% - Stable. NYHA III. Stage C. Reports SOB improved. Has edema lower ext. Denies PND, orthopnea. Plan for PCI as noted above. Continue metoprolol succinate. Hx cough with losartan remotely. Stopped amlodipine. Recommend valsartan and spironolactone. Will start after PCI tomorrow. Also recommend SGLT2 inhibitor. HTN - BP controlled 125/71. Continue current meds. Home amlodipine was stopped at [facility] to allow for GDMT of HF. HLD [...] ending 09/25/23 1348 Wt (more content not included)...[facility]04-09-2024 History and physical note* Amos Nichole MD - 09/25/2023 1:47 PM EDT Images from the original note were not included. [facility] [place] [facility] [place] History and Physical Chief Complaint: CAD History of Present Illness: Eben Cruz is a 78 y.o. 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 He is known to [facility] outpatient. Had [facility] in 2013 with non-obstructive CAD (per pt). NST 06/21/22 showed preserved EF, no ischemia. On 09/18/23, had total left hip replacement surgery at [facility]. Had complicated course requiring wound vac. Discharged to [facility] (SNF). He c/o SOB. Labs showed elevated d-dimer and troponins and diagnosed with NSTEMI. CTA chest negative for PE. Transferred to [facility] and seen by cardiology. Placed on heparin gtt. On 09/24/23, [facility] showed subtotal heavily calcified prox LCx (unable to cross with wire), 50% distal LMCA, 50% calcified ostial and prox RCA, 80% heavily calcified and prox RCA. He was transferred to [facility] for PCI of ostial and prox RCA. [...] TKR; R parietal CVA Apr 2023 PCVHx: [facility] 2013 Non-obstructive CAD Per Pt. Jul 10 negative NST w normal LVfx. HPI: L THR 09/18/23 in [place]. Admitted 09/24/23 [place] w CP rad to L arm. Cath today w Mod calcified intermediate distal LM and LAD disease. LCF prox BISQUE TILE BURNER densely calcified (workhorse wire would not cross); [...] NYHA Classification: Class III Frailty Score :5 [facility] Protocol: No HFrEF 25% - Stable. NYHA [...] lateral wall severely hypokinetic Last Cath 09/24/23, [facility] showed subtotal heavily calcified prox LCx (unable to cross with wire), 50% distal LMCA, 50% calcified ostial and prox RCA, 80% heavily calcified and prox RCA. Last Stress Test No results found for this or any previous visit. Last EP study SUE SCORE: 152 points, 22% SUE Score Link Ashleigh Perkins Christy, EXECUTIVE CREATIVE DIRECTOR - GAS LEAK INSPECTOR DATE of SERVICE: 09/25/2023 Patient now transferred to [facility] for intervention on coronary lesions. Have personally reviewed the cath films. LCF BISQUE TILE BURNER without collaterals. Would treat this medically. Plan [...] answered to the their satisfaction. I, Dr. Amos Nichole, saw and evaluated [...] care of this patient. documented in this [facility]04-09-2024 Progress note Author Gregory Kruse [facility] September 25, 2023 9:07am Note Date/Time September 25, 2023 9:03 am [facility] Medical Records Department [address] [place] [address] Progress Note - Cardiology 09/25/2352 MR#: [id number] Acct: [id number] Name: EBEN CRUZ Rep #:[id number] : 1945 78 From: Gregory Kruse MD PCP: Dr. Iwona Stewart MD Status:ADM IN Location: [place] [address]- 1 Subjective Subjective The patient is sitting up in the chair this morning. Reports he still has some shortness of breath but his O2 sat is 95% on room air this morning. Yesterday after he came back to the floor from the Wiring Technician he developed some profound hypoxia and O2 [...] Jackman is contacting the interventional team at [facility] and we are awaiting the decision [...] Clarity Cloudy, Urine pH 6.0, Ur Specific Sidman 1.010, Urine Protein 15 H, Urine Glucose [...] 74.6 H, Lymph % (Auto) 13.9 L, [place] % (Auto) 9.7, Eos % (Auto) 0.4, [...] Clarity Cloudy, Urine pH 6.0, Ur Specific [place]man 1.010, Urine Protein 15 H, Urine Glucose [...] 74.6 H, Lymph % (Auto) 13.9 L, [place] % (Auto) 9.7, Eos % (Auto) 0.4, [...] Extremity no pedal edema Extremity Narrative: Bilateral sxbih-gsp-xlki compression hose. Skin no rashes or lesions [...] 1. Discontinue amlodipine 5 mg daily. 2. [place] losartan 50 mg every afternoon. 3. Add spironolactone 25 mg every morning starting 09/26/2023. 4. Basic metabolic panel should be reevaluated in 1 week. Currently his potassium and BUN and creatinine are within normal limits. Charges/Coding Visit Charges Inpatient E&M: 86098 Subs Hosp L3 09/25/23 0907 <Electronically signed by Gregory Kruse MD> Cosigner Signature (if applicable): CC: ~ Signed [facility] Work Phone: 1(456) 424-816504-08-2024 Progress note Author Natalia Garcia [facility] September 24, 2023 5:54pm Note Date/Time September 24, 2023 5:55 pm [facility] Medical Records Department [address] [place] [id number] Progress Note - Hospitalist 09/24/23 1736 MR#: [id number] Acct: [id number] Name: EBEN CRUZ Rep #:[id number] : 1945 78 From: Natalia Garcia DO PCP: Dr. Iwona Stewart MD Status:ADM IN Location: [place] [address] Reason for Visit Reason for Visit: NSTEMI Subjective Subjective Patient is an 78-year-old male who was a direct transfer from [facility] for an NSTEMI on 09/23/2023. [facility] total hip replacement with Dr. Schreiber. The procedure was noted to be fairly complicated and required wound VAC placement. 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 Skilled rehab was recommended for discharge and the patient was in the process of transitioning to the [facility] TCU on 09/22/2023 however on the [...] 140, Potassium 4.1, Chloride 110 H, Carbon Ctzqnfn62.0, Anion Gap 4 L, BUN 31 H, [...] him -PT/OT consultation -Plan for discharge to residential facility once medically stable Abnormal chest x-ray [...] on admission Charges/Coding Visit Charges Inpatient E&M: 75040 Subs Hosp L3 09/24/23 1754 <Electronically signed by Natalia Garcia DO> Cosigner Signature (if applicable): CC: ~ Signed [facility] Work Phone: 1(804) 969-326204-07-2024 Consult note Author Faizan Jackman [facility] September 23, 2023 5:03pm Note Date/Time September 23, 2023 5:03 pm [facility] Medical Records Department [address] [place] [address] Consultation - Cardiology 09/23/23 1655 MR#: [id number] Acct: [id number] Name: DELILAHEBEN WADSWORTH Mohinder Rep #:[id number] : 1945 78 From: Faizan Jackman MD PCP: Dr. Iwona Stewart MD Status:ADM IN Location: [place] [address] Assessment & Plan Assessment/Plan (1) NSTEMI, initial [...] total left hip replacement surgery done at [facility]. This morning, he complained of shortness of [...] he has had coronary angiography done at [facility] in 2013. He was told that he had some disease but not severe. [facility] Medical History (Updated 09/23/23 @ 17:02 by [...] 72.8 H, Lymph % (Auto) 13.6 L, [place] % (Auto) 10.6 H, Eos % (Auto) [...] 72.8 H, Lymph % (Auto) 13.6 L, [place] % (Auto) 10.6 H, Eos % (Auto) [...] 435.6 H, Triglycerides 96, Cholesterol 93, LDL Nqbyixqdhgh91, VLDL Cholesterol 19, HDL Cholesterol 35 L [...] Yoder MD at 14:24 EDT , 09/23/23 1700 <Electronically signed by Faizan Jackman MD> Cosigner Signature (if applicable): CC: Dr. Faizan Jackman MD; Dr. Chet Edmonds MD; Dr. Iwona Stewart MD~ Signed [facility] Work Phone: 1(650) 955-321304-07-2024 History and physical note Author Bret Green [facility] September 23, 2023 4:20pm Note Date/Time September 23, 2023 12:0 1pm [facility] Medical Records Department [address] [place] [address] H&P Exam - Hospitalist 09/23/23 1201 MR#: [id number] Acct: [id number] Name: EBEN CRUZ Rep #:[id number] : 1945 78 From: Bret wagner DO PCP: Dr. Iwona Stewart MD Status:ADM IN Location: [id number]- 1 HPI - General General Date of Admission: 09/23/23 Date of Service: 09/23/23 Chief Complaint: NSTEMI HPI Narrative EBEN CRUZ, is a 78 M who presented to [facility] on 09/23/2023 asa direct transfer from [facility] for NSTEMI. Patient seen at bedside on the floor shortly after arrival, daughter present. History obtained from both patient and daughter and chart review of [facility] records. Patient initially presented to [facility] on 09/17 for planned elective left total hip replacement with Dr. Schreiber. Was noted to have a fairly complicated procedure requiring wound VAC placement. Patient lives at home and had very good functional status prior to this procedure per the daughter. 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 Patient had fairly significant postop pain, and PT/OT they are recommended that patient go to a skilled rehab facility on discharge prior to returning home. It appears that patient was transition to the [facility] (SNF) program on afternoon of 09/21. [...] NSTEMI and because patient has follow-up with [place] [facility] in the recent past as noted below, patient was transferred to [facility] for further management. Further history obtained from patient/daughter and last cardiology office visit note on 06/19/2023. Patient presented to the [facility] ED on 04/27/2023 with strokelikesymptoms. Was given [...] hemoglobin 9.5, similar to last value from [place]. WBC count 10.6. BMP normal. Low albumin at 2.2. BNP 435, mildly increased from 374 back in April 2023. Troponin 6620 (was 6365 on last checkat [place]), repeat pending. EKG showed normal sinus rhythm, mild ST changes concerning for lateral ischemia. Chest x-ray showed chronic interstitial changes with superimposed regular opacification concerning for early infiltrate versus atelectasis. 1. Asthenia Acute, secondary to left total hip arthroplasty on 09/17. Consult placed to PT and OT to evaluate and treat. library services coordinator following for discharge planning. 2. Tachycardia Chronic. Metoprolol increased to 50 mg PO BIDwith hold parameters. Monitor vital signs per protocol. 3. Anemia Acute on chronic, secondary to recent orthopedic surgery. Repeat CBC on 09/23. Continue ferrous sulfate. 4. BPH - benign prostatic hyperplasia Chronic. Continue currenthome medication. 5. CAD - Coronary artery disease Chronic. Patient denies any chest pain. Continue home meds. [facility] Medical History (Reviewed 06/19/23 @ 10:30 by Petra Villegas BORING MACHINE OPERATOR, BORING MACHINE OPERATOR-C) Arthritis Hypertension Leaky heart valve Home Medications [...] Patient is an 78-year-old male who presented [facility] on 09/22 as a direct transfer from [facility] for NSTEMI. 1. NSTEMI, history of nonobstructive [...] 55 minutes. Charges/Coding Visit Charges Inpatient E&M: 51530 Init Hosp L2 09/23/23 1620 <Electronically signed by Bret Green DO> Cosigner Signature (if applicable): CC: Dr. Bret Green DO; Dr. Iwona Stewart MD~ Signed [facility] Work Phone: [phone]) 257-551904-07-2024 Hospital Discharge instructions Follow Up Care 09/23/2023 10:06:51 With:IWONA STEWART MD Address: [address] [place] [address]- When:2-4 days [facility] 04-07-2024 Nurse Progress note Patient c/o shortness of breath. Patient shows no distress respirations 20, unlabored, lung black clear/diminished throughout. pulse ox 95% on room air. Nurse practitioner notified. Trevor PURVIS RN Digitally Signed by LEVI Meier on 09/23/2023 07:37 AM [facility]04-07-2024 Note ORIGINAL EXAMINATION: CTA OF THE CHEST [...] aortic dissection. 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 There is mild adjacent atelectasis in [...] Sign Date: 09/23/2023 7:29:21 AM Ordering Provider: [facility]04-05-2024 Note Date of Service 09/21/2023 Chief Complaint weakness, left hip pain History of Present Illness Patient is an 78-year-old male, who follows with Dr. Iwona Stewart with a past medical history significant for diastolic dysfunction, coronary artery disease, hyperlipidemia, BPH and osteoarthritis, presented to [facility] on 09/18/2023 for an elective left total [...] a swing stay today and transitioned to [facility] program this afternoon. Introduced self and role of hospitalist BORING MACHINE OPERATOR in patient's stay while in the TCU. [...] to PT and OT to evaluate andtreat. library services coordinator following for discharge planning. 2. Tachycardia Chronic. [...] patient, discussed plan of care with nursing, director social and therapy, collaborating with physician, and documenting in chart. 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 Financial concerns: No. Domestic Concerns: None. 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 He has 2 grown [...] by ELIZA STUBBS on 09/21/2023 02:12 PM [facility]04-05-2024 Evaluation + Plan noteExtracted from: Title:History and Physical Author:ELIZA STUBBS Date:09/21/23 1. Asthenia Acute, secondary to left total hip arthroplasty on 09/17. Consult placed to PT and OT to evaluate and treat. library services coordinator following for discharge planning. 2. Tachycardia Chronic. [...] patient, discussed plan of care with nursing, director social and therapy, collaborating with physician, and documenting in chart. CPT#28720 Future Scheduled Tests Radiology* XR Spine Lumbosacral Minimum 4 Views 04/24/23 [facility] 04-05-2024 Note Discharge Instructions Thank you for allowing [facility] to assist you with your healthcare needs. The following is importantdischarge information regarding your hospital visit. Your Care Team [facility] Your Diagnosis Acute kidney injury Anemia Bradycardia CAD (coronary artery disease) HTN (hypertension) S/P total left hip arthroplasty What to do next Follow Up Appointments Follow Up with EBEN KIM PA-C, Orthopedic When 10/01/2023 03:30 PM EDT Why: This is your post-op appointment. Follow-up as scheduled. Where: [facility] [address] [facility] [place] [address]- Follow Up with IWONA STEWART MD When Where: [address] [place] [address] [place] [address]- The Following Activity and Diet Have Been [...] to exceed 3000 mg/ day Pickup at [facility]/pharmacy #[id number] Unchanged amLODIPine (amLODIPine 5 mg oral tablet) [...] tab(s) by mouth Every day Pharmacy Information [facility]/pharmacy #[id number]: [address], [place] [id number] [phone] What How Much When Comments Stop Taking [...] FOR SIGNS OF INFECTION: call the office ([phone]) if experencing any of the following: (Usually [...] on your follow up instructions. Form: 338A (23218) R: 10/22 Additional Information VACCINATE! IT SAVES LIVES! Members of the community who have not yet received the COVID-19 vaccine and would like to receive it can visit one of [facility] vaccine clinics. There are many vaccine clinic locations within the [facility]. For locations and available times, please visit [email or web address] It is important to note that some COVID mobile vaccine clinics are held outdoors and may be canceled in rainy or stormy conditions. To learn more about pediatric vaccinations (ages 5-11), we invite you to visit the [employer] webpage. https://www.DuneNetworkss.org/pages/0359-Hbiyk-Ugpbrpnjqcn-Dveqhkhyji-Bxcok-Eqg stions.htmlTo learn more about the COVID-19 vaccine, we invite you to visit the CDC website for a list of frequently asked questions.https://www.cdc.gov/coronavirus/2019-ncov/vaccines/faq.html [facility] Patient Portal Access Instructions: Stay connected with your healthcare team and access your personal medical information anytime with the [facility] Patient Portal. Please follow the directions below to create your [facility] account: 1.Access the email account you provided upon registration to the hospital/physician office.2.Look for an invitation email from [facility].3.Open the email and access the invitation link: AcceptInvitation to [facility].4.Fill in the required black to create your account. To access your account, visit [employer] on the TableOneChart. Click the blue button labeled Access Patient [...] who you will allowto register on the [facility] Patient Portal for access to your information. You can also access the [facility] Patient Portal on the [facility] maritza. Simply click on Patient Portal and then log into your account. If you would like to receive a full copy of your medical records, please contact the [facility] Medical Records Department by calling [phone], Sunday through Sunday between 8 a.m. and [...] Call your local pharmacy or go to [email or web address]/9Y5Ce2f to find one close to you.3.Make use of household items: Use cat litter or old coffee grounds to dispose medications if other options arenot available. Mix your drugs with these household products, seal them in an airtight container andthrow it into the garbage. Call [facility]: [phone] to be sure your drugs can be [...] Materials [facility] Post-op Instruction 01/2017 (69867) Medication Leaflets My discharge plan and instructions have been reviewed and explained to me and IANTHONY RAY P understand my current condition and have read and understand these discharge instructions. I have received a written copy of the plan/instructions. If I have questions, I am aware that I should contact my d octor. Patient/Physician Office Rep Signature: Date/Time: Relationship to Patient: Witness Name/Signature: Date/Time: [facility]04-05-2024 Discharge summary Date of Service September 21, [...] Patient wasadmitted to the second floor at [facility]. The patient's pain was managed with the use of IV and p.o. pain medications. Patient participated in physical therapy. Patient lives home alone and was having difficulty with therapy in the hospital. Therapy was concerned about discharge home and patient obtained approval for the swing unit at [facility]. Postoperatively patient did undergo some bradycardia and was appropriately treated on the floor. Patient has never been symptomatic with any chest pain or shortness of breath. The patient is followed by local horse race timer at [facility]. Patient was discharged on postoperative day # 3 to transitional care unit at [facility]. Patient will continue with pain medications including [...] for DVT prophylaxis. Patient will follow-up with [facility] per postop instructions. I do recommend patient follow-up with the primary care provider in approximately 2-3 weeks post operatively for follow-up of lab work and postoperative anemia. Allergies Entresto (Unknown) Wool (Unknown) Procedures Direct anterior left total hip arthroplasty Consults Consult to Physician - Ordered -- 09/18/23 17:05:00 ANA ANTHONY RACHEL L APRN-GAS LEAK INSPECTOR, Routine, ok to see tomorrow, Constant order, [...] Discharge Date September 21, 2023 Medications Changed Milligram by mouth twice daily with meals [...] your post-op appointment. Follow-up as scheduled. Where: [facility] [address] [place] [phone]- Follow Up with IWONA STEWART MD When Where: [address] [place] [address]- Follow Up Appointments No qualifying data available. [...] precertification for the transitional care unit at [facility]. Case was discussed with medicine and appropriate [...] will keep his scheduled follow-up appointment with [facility] for 2-week follow-up with x-rays on arrival. Please contact orthopedics with any concerns or questions. I have reviewed the [place] Automated Rx Reporting System (OARRS) report for [...] EBEN KIM PA-C on 09/21/2023 01:17 PM [facility]04-05-2024 Note Date of Service 09/21/2023 Chief Complaint [...] waiting for a precert to stay in [facility] swing program for therapy before going home. [...] patient, discussed plan of care with nursing, director social and therapy, collaborating with physician, and documenting in chart. Digitally Signed by ELIZA STUBBS on 09/21/2023 12:17 PM [facility] [id number] Note Date of Service 09/20/2023 Chief Complaint [...] patient, discussed plan of care with nursing, director social and therapy, collaborating with physician, and documenting in chart. Digitally Signed by ELIZA STUBBS on 09/20/2023 09:47 AM [facility]04-04-2024 Note Date of Service September 20, 2023 [...] Case management has also discussed transportation with [facility]. Prescriptions have already been sent to [...] for their recommendations. I have reviewed the [place] Automated Rx Reporting System (OARRS) report for [...] 42 tab(s), 0 Refill(s),09/26/23 8:02:00 EDT, Pharmacy: [facility]/pharmacy #[id number], S/P total left hip arthroplasty, 170, cm, 09/18/23 17:05:00 EDT, Height, 95.3, kg, 09/18/23 17:05:00 EDT, Dosi... Orders: acetaminophen, Dose : 1,000 mg = 2 tab(s), Oral, TID, PRN as needed for pain, not to exceed 3000 mg/day, X 14 day(s), # 100 tab(s), 0 Refill(s), 10/03/23 7:59:00 EDT, Pharmacy: [facility]/pharmacy #[id number], 170, cm, 09/18/23 17:05:00 EDT, Height, kg, 09/18/23 17:05:00 EDT, Do... aspirin, Dose : 81 mg = 1 tab(s), Oral, BIDM, Take 81 mg aspirin twice daily with food for 4 weeks postoperatively for DVT prophylaxis., 0 Refill(s) docusate-senna, Dose = 2 tab(s), Oral, BID, Take until first bowel movement, then as needed, X 3 day(s), # 12 tab(s), 0 Refill(s), Pharmacy: [facility]/pharmacy #[id number], 170, cm, 09/18/23 17:05:00 EDT, Height, kg, 09/18/23 17:05:00 EDT, Dosing Weight famotidine, Dose : 20 mg = 1 tab(s), Oral, qDay, # 30 tab(s), 0 Refill(s), Pharmacy: [facility]/pharmacy #[id number], 170, cm, 09/18/23 17:05:00 EDT, Height, kg, 09/18/23 17:05:00 EDT, Dosing Weight Digitally Signed by EBEN KIM PA-C on 09/20/2023 07:03 AM Digitally Signed by EBEN KIM PA-C on 09/20/2023 07:09 AM [facility]04-03-2024 Hospital Discharge instructions Patient Education 09/19/2023 07:58:39 5 - [facility] Post-op Instruction 01/2017 ([id number]) [facility] Post-operative Instructions PLEASE FOLLOW [facility] POST-OP INSTRUCTIONS GIVEN WATCH FOR SIGNS OF INFECTION: call the office ([phone]) if experencing any of the following: (Usually [...] on your follow up instructions. Form: 338A (75942) R: 10/22 Follow Up Care 07/10/2023 10:09:16 With:IWONA STEWART MD Address: [address] [facility] [place] [address]- When: Unknown With:EBEN KIM PA-C, Orthopedic Address: [facility] [place] [address]- When:10/01/2023 15:30:00 Comments:This is your post-op appointment. Follow-up as scheduled. [facility] 04-03-2024 NoteSinus rhythm Supraventricular bigeminy Borderline repolarization abnormality Electronic Signature: URBANO DEAL MD 09/21/2023 17:03:30[facility] 04-03-2024 Note Date of Service September 19, [...] does have established care with cardiology at [facility]. He has had preoperative workup [...] Patient does have established cardiac care with [facility]. I will have medications ready for discharge. He would like the medications E scribed to [facility] in [facility]. He currently does have outpatient physical therapy [...] additional night stay. I have reviewed the [place] Automated Rx Reporting System (OARRS) report for [...] EBEN KIM PA-C on 09/19/2023 07:58 AM [facility]04-02-2024 NoteSinus bradycardia WITH COMPETING JUNCTIONAL RHYTHM Short CA interval CONSIDER Inferior infarct, old Lateral leads are also involved Electronic Signature: URBANO DEAL MD 09/21/2023 17:05:37[facility] 04-02-2024 NoteSinus rhythm Multiple ventricular premature complexes Borderline repolarization abnormality Borderline prolonged QT interval Electronic Signature: URBAON DEAL MD 09/21/2023 17:03:52[facility] 04-02-2024 Note ORIGINAL Images acquired, not reported on this accession number.[facility]04-02-2024 Note ORIGINAL EXAMINATION: 2 XRAY VIEWS OF [...] Date: 09/18/2023 1:36:27 PM Ordering Provider: [facility] Anesthesiology Consult note Patient: EBEN CRUZ Age: 78 years Sex: Male : 1945 Associated Diagnoses: None Author: JOSY WHALEN EXECUTIVE CREATIVE DIRECTOR-CORPORATE COMPLIANCE OFFICER Assessment Postanesthesia assessment Vitals: Vital signs from [...] by JOSY WHALEN on 09/18/2023 01:12 PM [facility]04-02-2024 Anesthesiology Consult note Patient: EBEN CRUZ Age: [...] list: Medical Acholic stool / SNOMED CT 438435292 / Confirmed BPH - benign prostatic hyperplasia / SNOMED CT 8926477538 / Confirmed CAD - Coronary artery disease / SNOMED CT 6693044143 / Confirmed Diastolic dysfunction / SNOMED CT 5673561 / Confirmed Erectile dysfunction / SNOMED CT 6821576740 / Confirmed Left hip pain / SNOMED CT 12563159 / Confirmed High cholesterol / SNOMED CT 81504562 / Confirmed Lumbosacral radiculitis / SNOMED CT 06755664 / Confirmed Male hypogonadism / SNOMED CT 99198027 / Confirmed Osteoarthritis of left hip / SNOMED CT 0304284111 / Confirmed Left knee pain / SNOMED CT 5201968249 / Confirmed Pre-op exam / SNOMED CT 426231135 / Confirmed, Active Problems (12) Acholic stool BPH - benign prostatic hyperplasia CAD - Coronary artery disease Diastolic dysfunction Erectile dysfunction High cholesterol Left hip pain Left knee pain Lumbosacral radiculitis Male hypogonadism Osteoarthritis of left hip Pre-op exam Histories Past Medical History: Resolved Thrombocytopenia (835174694): Resolved. UTI (urinary tract infection) (718462093): Resolved. Family History: Cancer Sister Cerebrovascular accident Father (Fredi Cruz, ) CAD - Coronary artery disease Sister Diabetes Mother (Tiki Sarmiento, ) Procedure history: Inguinal hernia (0326282388) in 1989 at 45 Years. Hip replacement (3967638683). Catheterisation of both left and right heart (839812915). 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 He has 2 grown [...] Signs(last 24 hrs) Last Charted Heart Rate Medvxtynu05 bpm (SEP 17 11:10) SBP80 mmHg (SEP 17 11:10) DBP40 mmHg (SEP 17 11:10) Measurements from flowsheet : Measurements 09/18/2023 9:13 EDT Height 170 cm Admission Weight 95.3 kg [place] Body Weight 65.94 kg Admission Body Mass [...] Attendee SN - CAt - Role Performed Fuel Handler 09/18/2023 11:15 EDT SN - CTm - Surgery Start 09/18/2023 11:14 09/18/2023 11:11 EDT SN - CAt - Case Attendee SN - CAt - Case Attendee SN - CAt - Case Attendee SN - CAt - Case Attendee SN - CAt - Role Performed Observer SN - CAt - Role Performed Fuel Handler 09/18/2023 11:10 EDT Heart Rate Monitored 64 [...] Standard Intra-op 09/18/2023 10:43 EDT SN - AL - Route of Administration Local SN - AL - Route of Administration Local 09/18/2023 10:43 [...] Surgeon SN - CAt - Role Performed Construction Flagger 1 SN - CAt - Role Performed CORPORATE COMPLIANCE OFFICER SN - CAt - Role Performed Supervisor Speech 1 SN - CAt - Role Performed Scrub 1 SN - CAt - Role Performed Associate Consulting Engineer 09/18/2023 10:14 EDT IHC At-Risk Indicator YES 09/18/2023 9:33 EDT citric acid-sodium citrate Not Done: Other (Not Done) 09/18/2023 9:27 EDT SN - Preop - CTm Pt in SDS Room 09/18/2023 8:41 SN - Preop - CTm Pt Ready for OR/Proced 09/18/2023 9:26 09/18/2023 9:13 EDT Height 170 cm Admission Weight 95.3 kg [place] Body Weight 65.94 kg Admission Body Mass [...] Non-distended, Soft Skin Temperature Warm Skin Description [place] Skin Integrity Intact Mucous Membrane Color [place] Neurological Symptoms Patient denies Characteristics of Speech [...] Person #1 We May Share PHI MARK [phone] Designated Person #1 Relationship Son Designated Person [...] Method Explanation, Printed materials Preferred Spoken Language Sri Lankan Preferred Written Language Sri Lankan Teaching Evaluation Verbalizes/Nonverbally indicates understanding Total Joint Book Given Yes Safety Brochure Information Reviewed Unable to complete [facility] Video Viewed No Information Given by Patient [...] Allergies Yes Anesthesia Extension Set Applied Yes Legal Referee On Yes Consent Form Signed Yes Patient [...] At-Risk Indicator YES . Assessment and Plan [place] Society of Anesthesiologists (ASA) physical status classification: Class III. Anesthetic Preoperative Plan Anesthetic technique: Spinal. Informed consent: signed by patient. Digitally Signed by JOSY WHALEN on 09/18/2023 11:21 AM [facility]12-16-2023 Note. MICRO - Microbiology PROCEDURE: Urine Culture [...] Locations *1: This test was performed at: [facility], [address] [place] [address], [facility] , [facility] ([place])04-24-2023 Evaluation + Plan note Future Scheduled Tests Radiology* XR Spine Lumbosacral Minimum 4 Views 04/24/23 [facility] 10-15-2023 Hospital Discharge instructions Additional Instructions Take antibiotics as prescribed, follow-up with your PCP in 3 to 5 days and return for any worsening of your symptoms.[facility] Work Phone: 1(142) 664-437108-23-2023 Miscellaneous Notes* Telephone Encounter - Kim Blackwell Tech - 02/07/2023 1:58 PM EDT Pharmacy faxes requesting refill: Requested Prescriptions Pending Prescriptions Disp Refills metoprolol succinate ER (TOPROL XL) 25 mg 24 hr tablet [Pharmacy Med Name: METOPROLOL SUCCINATE ER 25 MG Tablet Extended Release 24 Hour] 90 tablet 2 Sig: TAKE 1 TABLET AT BEDTIME Date of last visit:01/15/2023 Phone #: [phone] (home) The patients preferred pharmacy has been captured for this encounter? yes documented [facility]St[facility] NoteHNO ID: [id number] Author: Uriel Paredes DO Service: ? Author [...] HFrEF (heart failure with reduced ejection fraction) ([facility]) History of cardiac cath 2013 EF 45%, [...] Mixed hyperlipidemia Myocardial infarction with cardiac rehabilitation ([facility]) PAST SURGICAL HISTORY Procedure Laterality Date ARTHRP [...] the left side. Posterior (more content not included)...[facility]07-31-2023 History of Present illness Narrative* Uriel [...] Diagnosis Date CAD (coronary artery disease) Cardiomyopathy ([facility]) Chronic systolic heart failure (H[facility]) Essential hypertension HFrEF (heart failure with reduced ejection fraction) ([facility]) History of cardiac cath 2013 EF 45%, [...] Mixed hyperlipidemia Myocardial infarction with cardiac rehabilitation ([facility]) PAST SURGICAL HISTORY Procedure Laterality Date ARTHRP [...] QTC Calculation (Bazett) 430 ms Calculated P Brooten 59 degrees Calculated R Brooten 8 degrees Calculated T Brooten -26 degrees Narrative NAME : EBEN CRUZ PID : [id number] : 1945 Gender : Male Race : ORD : [id number] Procedure Date : Jan 15 2023 13:53:19 [...] HFrEF (heart failure with reduced ejection fraction) ([facility]) - ICD9: 428.20, ICD10: I50.20 He is [...] In a pictorial format; I described the CA and QRS intervals. This was to show [...] one hundred percent of my time in jxux-zh-wpkh conversation with the patient. I answered all the questions and explained the diagnosis of heart failure and intolerance to Entresto. Greater that 51% of my time was spent with aoih-yu-gkrr conversation with the patient. I have discussed [...] record. Uriel Paredes DO documented in this encounterSt. [facility]07-[facility]-2023 Miscellaneous Notes* Telephone Encounter - Elin Mazariegos - 12/21/2022 2:24 PM EDT Pharmacy faxes requesting refill: Requested Prescriptions Pending Prescriptions Disp Refills simvastatin (ZOCOR) 10 mg tablet [Pharmacy Med Name: SIMVASTATIN 10 MG Tablet] 90 tablet 0 Sig: TAKE 1 TABLET AT BEDTIME Date of last visit:03/24/22 Phone #: [phone] (home) The patients preferred pharmacy has been captured for this encounter? yes documented in this encounterSt. [facility]06-[facility] Hospital Discharge instructions Patient Education 12/02/2022 10:21:05 [...] get worse after the abrasion has healed [id number] [employer] [place] [address]. All rights reserved. This information is not intended as a substitute for professional medical care. Always follow yourhealthcare professional's instructions. Follow Up Care 12/02/2022 09:44:52 With:[facility] Address: When:2-4 days With:IWONA STEWART MD Address: [address] [place] [address]- When:2-4 days [facility] 06-17-2023 Note Discharge Instructions Thank you for allowing [facility] to assist you with your healthcare needs. The following is importantdischarge information regarding your hospital visit. Diagnosis from Today's Visit Corneal abrasion Pain in eye What to Do Next Instructions from Your Care Team No qualifying data available. Post Acute Orders No qualifying data available. You Need to Schedule the Following Appointments Follow Up with [facility] When Within 2-4 days Where: Follow Up with IWONA STEWART MD When Within 2-4 days Where: [address] [place], [place] [id number]- Allergies Entresto (Unknown) Wool (Unknown) Medications Please ask your primary doctor or pharmacist before taking any other medication not listed, including over the counter drugs, herbal medications, vitamins and or supplements as they may interact withyour home medications. What How Much When Why Instructions Last Dose New acetaminophen-hydrocodone ([place] 325- 5 mg oral tablet) 1 tab(s) [...] and veronica droe KOE done) Hycet, Lorcet, [place], Verdrocet, Vicodin, Xodol, Zamicet What is the [...] may report side effects to FDA at 9-455-UZH-0903. What other drugs will affect acetaminophen and [...] affect acetaminophen and hydrocodone, including prescription and rqpt-uxw-zhrtcug medicines, vitamins, and herbal products. Not all [...] to ensure that the information provided by [employer]. ('[employer]') is accurate, up-to-date, and complete, but no guarantee is made to that effect. Drug information contained herein may be time sensitive. [employer] information has been compiled for use by healthcare practitioners and consumers in the [place] and therefore [employer] does not warrant that uses outside of the [place] are appropriate, unless specifically indicated otherwise. [employer]'s drug information does not endorse drugs, diagnose patients or recommend therapy. mygalls drug information isan informational resource designed to [...] effective or appropriate for any given patient. [employer] does not assume any responsibility for any aspect of healthcare administered with the aid of information [employer] provides. The information contained herein is not intended to cover all possible uses, directions, precautions, warnings, drug interactions, allergic reactions, or adverse effects. If you have questions about the drugs you are taking, check with your doctor, nurse or pharmacist. Copyright 6326-7165 [employer] [facility] [employer]. Version: 16.03. Revision Date: 07/20/2020. polymyxin B [...] may report side effects to FDA at 7-850-QGJ-9817. What other drugs will affect polymyxin B and trimethoprim ophthalmic? Medicine used in the eyes is not likely to be affected by other drugs you use. But many drugs can interact. Tell your doctor about all your current medicines, including prescription and rgos-spt-riyudgi medicines, vitamins, and herbal products. Where can [...] to ensure that the information provided by [employer]') is accurate, up-to-date, and complete, but no guarantee is made to that effect. Drug information contained herein may be time sensitive. [employer] information has been compiled for use by healthcare practitioners and consumers in the [place] and therefore [employer] does not warrant that uses outside of the [place] are appropriate, unless specifically indicated otherwise. [employer]alls drug information does not endorse drugs, diagnose patients or recommend therapy. [employer]alls drug information isan informational resource designed to [...] effective or appropriate for any given patient. [employer] does not assume any responsibility for any aspect of healthcare administered with the aid of information [employer] provides. The information contained herein is not intended to cover all possible uses, directions, precautions, warnings, drug interactions, allergic reactions, or adverse effects. If you have questions about the drugs you are taking, check with your doctor, nurse or pharmacist. Copyright 0607-2823 [employer]. Version: 5.01. Revision Date: 07/21/2021. ketorolac ophthalmic [...] may report side effects to FDA at 1-495-KMP-3635. What other drugs will affect ketorolac ophthalmic? It is not likely that other drugs you take orally or inject will have an effect on ketorolac used in the eyes. But many drugs can interact with each other. Tell each of your healthcare providers about all medicines you use, including prescription and vcmn-pkm-zlgtzbt medicines, vitamins, and herbalproducts. Where can I get more information? Your doctor or pharmacist can provide more information about ketorolac ophthalmic. Remember, keep this and all other medicines out of the reach of children, never share your medicines with others, and use this medication only for the indication prescribed. Every effort has been made to ensure that the information provided by [employer]. ('[employer]') is accurate, up-to-date, and complete, but no guarantee is made to that effect. Drug information contained herein may be time sensitive. [employer] information has been compiled for use by healthcare practitioners and consumers in the [place] and therefore [employer] does not warrant that uses outside of the [place] are appropriate, unless specifically indicated otherwise. [employer]alls drug information does not endorse drugs, diagnose patients or recommend therapy. [employer]alls drug information isan informational resource designed to [...] effective or appropriate for any given patient. [employer] does not assume any responsibility for any aspect of healthcare administered with the aid of information [employer] provides. The information contained herein is not intended to cover all possible uses, directions, precautions, warnings, drug interactions, allergic reactions, or adverse effects. If you have questions about the drugs you are taking, check with your doctor, nurse or pharmacist. Copyright 8308-9703 [employer]. Version: 8.01. Revision Date: 01/05/2016. Education Materials [...] get worse after the abrasion has healed [id number] [employer]. [address] [place] [address]. All rights reserved. This information is not intended as a substitute for professional medical care. Always follow yourhealthcare professional's instructions. Additional Information VACCINATE! IT SAVES LIVES! Members of the community who have not yet received the COVID-19 vaccine and would like to receive it can visit one of [facility] vaccine clinics. There are many vaccine clinic locations within the [facility]. For locations and available times, please visit www.[email or web address].[place].gov/. It is important to note that some COVID mobile vaccine clinics are held outdoors and may be canceled in rainy or stormy conditions. To learn more about pediatric vaccinations (ages 5-11), we invite you to visit the [facility] webpage. [email or web address]://www.[email or web address]/pages/[email or web address]-Ykzgo-[email or web address]-[email or web address]-[email or web address]-[email or web address] stions.htmlTo learn more about the COVID-19 vaccine, we invite you to visit the CDC website for a list of frequently asked questions. https://www.cdc.gov/coronavirus/2019-ncov/vaccines/faq.html [facility] Access Instructions: Stay connected with your healthcare team and access your personal medical information anytime with the [facility] Patient Portal. If you would like a full copy of your medical records please contact the [facility] Medical Records Department Sunday through Sunday between 8a.m. and 4:30p.m. Please follow the directions below to access the portal: 1.Access the email account you provided upon registration to the [facility].2.Look for an invitation email from [facility].3.Open the email and access the invitation link: Accept Invitation to [facility]4.Fill in the required black to create your account. Sign into www.Shop Points with your username and password that you [...] you will allow to register on the [facility] Patient Portal for access to your information. You can also access the [employer] Patient Portal on the Hot Potato. Simply click on Health Records under Ubooly and then click on the Food on the Table logo. HOW TO SAFELY DISPOSE OF PRESCRIPTION [...] Call your local pharmacy or go to [email or web address] to find one close to you.3.Make use of household items: Use cat litter or old coffee grounds to dispose medications if other options arenot available. Mix your drugs with these household products, seal them in an airtight container andthrow it into the garbage. Call [facility]: [phone] to be sure your drugs can be [...] that I should contact my d octor. Patient/Physician Office Rep Signature: Date/Time: Relationship to Patient: Witness Name/Signature: Date/Time: [facility]04-07-2023 Evaluation + Plan note Future Scheduled Tests Radiology* XR Knee 3 Views Left 09/22/22 * XR Knee 3 Views Right 09/22/22 [facility] 04-07-2023 Evaluation + Plan note Future Scheduled Tests Radiology* XR Knee 3 Views Left 09/22/22 * XR Knee 3 Views Right 09/22/22 * XR Spine Lumbosacral Minimum 4 Views 04/24/23 [facility] 02-24-2023 History of Present illness Narrative* Eliza Molina DO - 08/11/2022 5:46 PM EST Eben Cruz is a 77 year old MALE who presents with Musculoskeletal Problem (Left leg pain no injury pain x 1 week) HPI PAST MEDICAL HISTORY Diagnosis Date CAD (coronary artery disease) Cardiomyopathy ([facility]) Chronic systolic heart failure (HCC) Essential hypertension HFrEF (heart failure with reduced ejection fraction) ([facility]) History of cardiac cath 2013 EF 45%, and 50% cx, 30% LAD History of echocardiography 04/2019 EF 35-40%. Mod LV cavity enlargement, mod left atrial and mild right atrial enlargement, mild MR, mild TR, normal right-sided systolioc pressure. History of stress test 2018 39 large inf scar Mixed hyperlipidemia Myocardial infarction with cardiac rehabilitation ([facility]) ACTIVE PROBLEM LIST Cardiomyopathy ([facility]) History of Echocardiography Cad (Coronary Artery [...] MG TABLET Eliza Molina documented in this encounterSt. [facility]12-29-2022 Miscellaneous Notes* Telephone Encounter - Elin Mazariegos [...] BEDTIME Date of last visit:03/24/22 Phone #: [phone] (home) The patients preferred pharmacy has been captured for this encounter? yes documented in this encounterSt. Mary'S [facility] Center10-07-2022 NoteHNO ID: [id number] Author: Uriel Paredes DO Service: ? Author [...] Diagnosis Date CAD (coronary artery disease) Cardiomyopathy ([facility]) Essential hypertension HFrEF (heart failure with reduced ejection fraction) ([facility]) History of cardiac cath 2013 EF 45%, and 50% cx, 30% LAD History of echocardiography 04/2019 EF 35-40%. Mod LV cavity enlargement, mod left atrial and mild right atrial enlargement, mild MR, mild TR, normal right-sided systolioc pressure. History of stress test 2018 39 large inf scar Mixed hyperlipidemia Myocardial infarction with cardiac rehabilitation ([facility]) PAST SURGICAL HISTORY Procedure Laterality Date ARTHRP [...] heart sound loud. P (more content not included)...[facility]10-07-2022 History of Present illness Narrative* Uriel [...] Diagnosis Date CAD (coronary artery disease) Cardiomyopathy ([facility]) Essential hypertension HFrEF (heart failure with reduced ejection fraction) ([facility]) History of cardiac cath 2013 EF 45%, and 50% cx, 30% LAD History of echocardiography 04/2019 EF 35-40%. Mod LV cavity enlargement, mod left atrial and mild right atrial enlargement, mild MR, mild TR, normal right-sided systolioc pressure. History of stress test 2018 39 large inf scar Mixed hyperlipidemia Myocardial infarction with cardiac rehabilitation ([facility]) PAST SURGICAL HISTORY Procedure Laterality Date ARTHRP [...] QTC Calculation (Bazett) 417 ms Calculated P Brooten 63 degrees Calculated R Brooten 26 degrees Calculated T Brooten 36 degrees Narrative NAME : EBEN CRUZ PID : [id number] : 1945 Gender : Male Race : ORD : [id number] Procedure Date : Mar 24 2022 07:08:06 [...] By : URIEL PAREDES Acquired by : [id number], Impression SINUS RHYTHM WITH 1ST DEGREE AV [...] another physician. 4. Coronary artery disease involving [place] coronary artery of [place] heart without angina pectoris- ICD9: 414.01, ICD10: [...] In a pictorial format; I described the CA and QRS intervals. This was to show [...] one hundred percent of my time in pppo-zw-welg conversation with the patient. I answered all the questions and explained the diagnosis of HFrEF . Greater that 51% of my time was spent with erfc-df-vkre conversation with the patient. I have discussed [...] record. Uriel Paredes DO documented in this encounterSt. Mary'S Medical Center06-06-2022 Miscellaneous Notes* Telephone Encounter - Bianca Mcdonald RN - 11/21/2021 9:22 AM EDT Pharmacy faxes requesting refill: Pending Prescriptions Disp Refills METOPROLOL SUCCINATE ER 25 MG TABLET,EXTENDED RELEASE 24 HR 90 tablet 1 Sig: TAKE 1 TABLET BY MOUTH EVERYDAY AT BEDTIME JEEVAN: Yes Date of last visit:04/20/21 Phone #: [phone] (home) [phone] (cell) The patients preferred pharmacy has been captured for this encounter? yes documented in this encounterSt. Mary'S Medical Center03-11-2022 Miscellaneous Notes* Telephone Encounter - Génesis Aparicio MA - 08/26/2021 8:00 AM EST Pharmacy faxes requesting refill: Pending Prescriptions Disp Refills SIMVASTATIN 10 MG TABLET 90 tablet 3 Sig: TAKE 1 TABLET BY MOUTH EVERYDAY AT BEDTIME JEEVAN: Yes Date of last visit:04/20/2021 Phone #: [phone] (home) [phone] (cell) The patients preferred pharmacy has been captured for this encounter? yes documented in this encounterSt. Mary'S Medical CenterConsu note Author Rodney Brown [facility] April 27, 2023 1:26pm Note Date/Time April 27, 2023 1:18pm [facility] Medical Records Department [address] [place] [address] Consultation - Tool Inspector 04/27/23 1306 MR#: [id number] Acct: [id number] Name: EBEN CRUZ Rep #:[id number] : 1945 78 From: Rodney Edmond PCP: [...] left shoulder replacement and right hip replacement. [facility] Medical History Arthritis Hypertension Leaky heart valve [...] (Auto) 69.0, Lymph % (Auto) 18.0 L, [place] % (Auto) 10.0, Eos % (Auto) 1.7, [...] 12:08 EST , Charges/Coding Procedures Hospitalists Procedures: 43217 Critial Care 1st Hr 04/27/23 1326 <Electronically signed by Rodney Brown MD> Cosigner Signature (if applicable): CC: Dr. Iwona Stewart MD~ Signed [facility] Work Phone: Discharge summary Author Isai Hernandez [facility] April 27, 2023 12:28pm Note Date/Time April 27, 2023 12:02pm [facility] Medical Records Department [address] [place] [address] Emergency Department Summary 04/27/23 MR#: [id number] Acct: [id number] Name: EBEN CRUZ Rep #:[id number] : 1945 78 From: Isai Hernandez MD [...] bilaterally and No no sensory deficits noted [place] Coma Scale: document GCS findings Spontaneous Obeys [...] no ossific ST-T wave changes noted. The CA interval is 184 ms. The QRS duration is 94 ms. QT durations are 150 ms. Brooten is normal.) Treatment and Re-Evaluation Narrative: I [...] at [facility] Dr. Garcia), Discussing w/Patient &/or Family/Loading Machine Operator Helper (Inform patient that he is having a stroke. Informed patient of his benefits of tenecteplase and that this is recommended by the neurologist at [facility].), Discussing w/Consultants (Radiologist and neurologist at [facility] and [facility] respectively.), Arranging Admission or Transfer [...] your Primary Care Provider. Call [facility] ([phone]) or report to the closest Emergency Room. Call 911 if necessary. 04/27/23 1228 <Electronically signed by Isai Hernandez MD> Cosigner Signature (if applicable): CC: Dr. Iwona Stewart MD ~ Signed [facility] Work Phone: Evaluation + Plan note No data available for this section [facility] Evaluation + Plan note Future Appointments Appointment Date:07/31/2023 10:00:00 AM Scheduled Provider:IWONA STEWART MD Location:[facility] Appointment Type:PC OV Pre Op Appointment Date:08/17/2023 04:30:00 PM Scheduled Provider: Location:[facility] Appointment Type:PT Outpatient Evaluation Future Scheduled Tests Radiology* XR Knee 3 Views Left 09/22/22 * XR Knee 3 Views Right 09/22/22 * XR Spine Lumbosacral Minimum 4 Views 04/24/23 [facility] evaluation + Plan note Future Appointments Appointment Date:01/29/2024 08:30:00 AM Scheduled Provider:IWONA STEWART MD [facility] Appointment Type:PC OV Future Scheduled Tests Radiology* XR Spine Lumbosacral Minimum 4 Views 04/24/23 [facility] Evaluation + Plan note Future Appointments Appointment Date:07/29/2024 09:00:00 AM Scheduled Provider:IWONA STEWART MD Location:[facility] Appointment Type:PC OV Future Scheduled Tests Laboratory* Basic Metabolic Panel 01/29/24 * A1C Hemoglobin 07/31/24 * Lipid Profile 07/31/24 * Complete Metabolic Panel 07/31/24 [facility] evaluation note* Diagnosis Dizziness- Primary Dizziness and giddiness Essential hypertension Unspecified essential hypertension Mixed hyperlipidemia Coronary artery disease involving [place] coronary artery of [place] heart without angina pectoris Cardiomyopathy, unspecified type (HCC) History of stress test Other specified conditions influencing health status History of cardiac cath Other postprocedural status Non-smoker Other specified conditions influencing health status documented [facility] this [facility] CenterEval[facility] note* Diagnosis Left sided sciatica- Primary Sciatica documented in this encounter [facility] note* Diagnosis Essential hypertension- Primary [...] influencing health status documented in this [facility] CenterEvalubayhealth medical center noteNo assessment information availableWEast [facility] Work Phone: evaluation note* Diagnosis Onset Date Resolution Status Acute ischemic stroke acute Acute stroke due to ischemia acute Elevated blood-pressure read ing, without diagnosis of hypertension acute Elevated troponin I level ac koi Frequent ventricular premature beats acute Hx of valvular heart disease acute Hypercholesterolemia acute Sinus tachycardia by electrocardiogram [facility] Work Phone: evaluation note* Diagnosis Onset Date Resolution Status Acute stroke due to ischemia acute Elevated blood-pressure read ing, without diagnosis of hypertension acute Elevated troponin I level ac koi Frequent ventricular premature beats acute Hx of valvular heart disease acute Hypercholesterolemia acute Sinus tachycardia by electrocardiogram acute Acute ischemic stroke resolv ed Acute stroke due to ischemia acute Carotid artery stenosis acut e Chest pain acute CHRISTIANSEN (dyspnea on exertion) ac koi Hypercholesterolemia acute [facility] Work Phone: Evaluation note* Diagnosis Onset Date Resolution Status Acute stroke due to ischemia acute Elevated blood-pressure read ing, without diagnosis of hypertension acute Elevated troponin I level ac koi Frequent ventricular premature beats acute Hx of valvular heart disease acute Hypercholesterolemia acute Sinus tachycardia by electrocardiogram acute Acute ischemic stroke resol ed Acute stroke due to ischemia acute Carotid artery stenosis acut e Chest pain acute CHRISTIANSEN (dyspnea on exertion) ac koi Hypercholesterolemia acute Acute stroke due to ischemia acute CAD (coronary artery disease) acute Carotid artery stenosis acut e Hypercholesterolemia acute [facility] Work Phone: Evaluation note* Diagnosis Onset Date [...] of care acute Acute on chronic anemia 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 Hypertension chronic [facility] Work Phone: Evaluation note* Diagnosis 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) Stented coronary artery Postsurgical percutaneous transluminal coronary angioplasty status HFrEF (heart failure with reduced ejection fraction) (HCC) Persistent atrial fibrillation (HCC) Atrial fibrillation HFrEF (heart failure with reduced ejection fraction) (HCC) Coronary artery disease of [place] artery of [place] heart with stable angina pectoris (HCC) [facility] Diagnosis Onset Date Resolution Status CAD (coronary artery disease) acute Edema of left lower extremity acute Heart failure with reduced ejection fraction acute NSTEMI, initial episode of care acute Acute on chronic anemia 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 Hypertension chronic Acute hypoxic respiratory failure resolved Acute HFrEF (heart failure w ith reduced ejection fraction) acute Atrial fibrillation acute CAD (coronary artery disease) acute Debility acute Hyperlipidemia acute Stenosis of right carotid artery acute Stroke acute Hypertension chronic Insomnia resolved NSTEMI (non-ST elevated myocardial infarction) resolved Pleural effusion, left resol charisse [facility] Work Phone: Evaluation note* Diagnosis Subacute cough- Primary Cough Community acquired pneumonia of left lower lobe of lung documented [facility] this encounter [facility]Eval[facility] note* Diagnosis Subacute cough Cough documented in this encounter [facility] Discharge instructions No data available for this section [facility] Progress note No data available for this section [facility] Reason for referral (narrative)* Outpatient Procedure (Routine) - Closed Specialty Diagnoses / Procedures Referred By Contac t Referred To [facility] Diagnoses Essential hypertension Procedures ECG COMPLETE ECG ROUTINE ECG W/LEAST 12 LDS W/I&R Uriel Paredes DO [address] [facility] [address] [facility] [place] [address] [facility] [place] [address] [place] [id number] Referral ID Status Reason Start Date Expiration Date V isits Requested Visits Authorized [id number] Closed Auto-Generate d Referral 03/16/2022 03/16/2023 1 1 [facility] for referral (narrative)* Outpatient Procedure (Routine) - Closed Specialty Diagnoses / Procedures Referred By Contac t Referred To Contact [facility] Diagnoses Essential hypertension Procedures ECG COMPLETE ECG ROUTINE ECG W/LEAST 12 LDS W/I&R Uriel Paredes DO [address] [place] [address] [facility] [address] [address] Referral ID Status Reason Start Date Expiration Date V isits Requested Visits Authorized [id number] Closed Auto-Generate d Referral 01/12/2023 01/12/2024 1 1 [facility] for referral (narrative)* Consultation (Routine) - Closed Specialty Diagnoses / Procedures Referred By Contact Referred To Contact Cardiac Rehabilitation / Cardiology Diagnoses Stented coronary artery Procedures CA OFFICE/OUTPATIENT NEW HIGH MDM 60 MINUTES Elisa Goldstein APRN - CNP [address] [place] [address] [facility] 95 Card/Pulm Rehab [address] [place] [address] Referral ID Status Reason Start Date Expiration Date V isits Requested Visits Authorized [id number] Closed Specialty Services Required 09/28/2023 09/27/2024 1 1 [facility] for referral (narrative)No reason for referral information availableWEast [facility] Work Phone: Summary Purpose Family History [...] Will No April 01 11:28am Power of Senior Pricing Analyst No April 01, 2023 11:28am Advance Directive Response Recorded Date/ Time Living Will No April 27, 023 12:18pm Power of Senior Pricing Analyst No April 27, 2023 12:18pm Advance Directive Response Recorded Date/ Time Living Will No April 27, 023 1:28pm Power of Senior Pricing Analyst No April 27, 2023 1:28pm Advance Directive Response Recorded Date/ Time Living Will No September 23, 2023 11:32am Power of Senior Pricing Analyst No September 22 11:32am Latest Code Status [...] No October 11, 2023 2:34pm Power of Senior Pricing Analyst No October 10 2:34pm Advance Directive Response Recorded Date/ Time Living Will No October 11, 2023 2:34pm Do you have a Healthcare Power of Senior Pricing Analyst? No October 11, 2023 2:34pm Living Will No June 23 7:32pm Do you have a Healthcare Power of Senior Pricing Analyst? No June 23, 2024 7:32pm Chief Complaint [...] STROKE S/P TNK STROKE S/P TNK S/P [facility] 04/29 E ORDERS Reason for Visit Acute [...] S/P TNK STROKE, NAGAJOTHI TO READ S/P [facility] 04/29 E ORDERS DIZZINESS AND GIDDINESS Amb [...] 4:56pm Hypercholesterolemia June 23, 2024 4 :56pm assisted current use of anticoagulant t herapy June [...] 1 0:42am Frequent ventricular premature beats [facility] 2024 10:42am Stented coronary artery June 27 10:42am Acute HFrEF (heart failure with reduced ejection fraction) August 18, 2024 9:54am Atrial fibrillation August 18, 2024 9:54 am Frequent ventricular premature beats [facility] 2024 9:54am Stented coronary artery August 18, [...] 2024 9:54 am Frequent ventricular premature beats [facility] 2024 9:54am Stented coronary artery August 18, [...] section and content) DATE CREATED AUTHOR 05/05/2019 [facility] Alana nter [place] DATE CREATED AUTHOR AUTHOR'S ORGANIZ ATION 01/27/2023 [facility] DATE CREATED AUTHOR AUTHOR'S ORGANIZ ATION 11/11/2023 [facility] DATE CREATED AUTHOR AUTHOR'S ORGANIZ ATION 01/29/2024 [facility] ([place]) DATE CREATED AUTHOR AUTHOR'S ORGANIZ ATION 05/08/2024 [facility] DATE CREATED AUTHOR AUTHOR'S ORGANIZ ATION 04/28/2025 [facility] DATE CREATED AUTHOR AUTHOR'S ORGANIZ ATION [facility]/30/2025 [facility] Source Comments (unrecognize d section and content) In the event this informatio n is protected by the Federal Confidentiality of Alcohol and Drug Abuse Patient Records regulations: The Federal rules restrict any use of the information to criminally investigate or prosecute any alcohol or drug abuse patient.[facility] CenterIn the event this information is protected by the Federal Confidentiality of Alcohol and Drug Abuse Patient Records regulations: The Federal rules restrict any use of the information to criminally investigate or prosecute any alcohol or drug abuse patient.[facility] CenterIn the event this information is protected by the Federal Confidentiality of Alcohol and Drug Abuse Patient Records regulations: The Federal rules restrict any use of the information to criminally investigate or prosecute any alcohol or drug abuse patient.[facility] CenterIn the event this information is protected by the Federal Confidentiality of Alcohol and Drug Abuse Patient Records regulations: The Federal rules restrict any use of the information to criminally investigate or prosecute any alcohol or drug abuse patient.[facility] CenterIn the event this information is protected by the Federal Confidentiality of Alcohol and Drug Abuse Patient Records regulations: The Federal rules restrict any use of the information to criminally investigate or prosecute any alcohol or drug abuse patient.[facility] CenterIn the event this information is protected by the Federal Confidentiality of Alcohol and Drug Abuse Patient Records regulations: The Federal rules restrict any use of the information to criminally investigate or prosecute any alcohol or drug abuse patient.[facility] CenterIn the event this information is protected by the Federal Confidentiality of Alcohol and Drug Abuse Patient Records regulations: The Federal rules restrict any use of the information to criminally investigate or prosecute any alcohol or drug abuse patient.[facility] CenterIn the event this information is protected by the Federal Confidentiality of Alcohol and Drug Abuse Patient Records regulations: The Federal rules restrict any use of the information to criminally investigate or prosecute any alcohol or drug abuse patient.[facility] CenterIn the event this information is protected by the Federal Confidentiality of Alcohol and Drug Abuse Patient Records regulations: The Federal rules restrict any use of the information to criminally investigate or prosecute any alcohol or drug abuse patient.[facility] CenterIn the event this information is protected by the Federal Confidentiality of Alcohol and Drug Abuse Patient Records regulations: The Federal rules restrict any use of the information to criminally investigate or prosecute any alcohol or drug abuse patient.[facility] Reason for Visit (unrecogniz ed [...] Angina Procedures - Amos Nichole MD [address] [address] [address] [address] Referral ID Status Reason Start Date Expiration Date Visits Re quested Visits Authorized [id number] 1 1 Reason Comments Cough Cough, nasal congest ion and drainage x 2 weeks Care Teams (unrecognized sec tion and content) Team Status: Active Member Role Status Dates No Primary Care Physician Primary Care Provider Active Team Status: Inactive Member Role Status Dates No Primary Care Physician Primary Care Provider Active Start: August 08, 2024 End: August 08, 2024 Vidal Banda BORING MACHINE OPERATOR, BORING MACHINE OPERATOR-C Attending Provider Active S tart: August 08, 2024 End: August 08, 2024 Vidal H Roof BORING MACHINE OPERATOR, BORING MACHINE OPERATOR-C Referring Provider Active S tart: August 08, [...] End: August 18, 2024 Vidal H Solo BORING MACHINE OPERATOR, BORING MACHINE OPERATOR-C Attending Provider Active S tart: August 18, 2024 End: August 18, 2024 Team Status: Inactive Member Role Status Dates No Primary Care Physician Primary Care Provider Active Start: August 26, 2024 End: August 26, 2024 Vidal Banda BORING MACHINE OPERATOR, BORING MACHINE OPERATOR-C Attending Provider Active S tart: August 26, 2024 End: August 26, 2024 Vidal H Roof BORING MACHINE OPERATOR, BORING MACHINE OPERATOR-C Referring Provider Active S tart: August 26, 2024 End: August 26, 2024 Team Status: Active Member Role Status Dates No Primary Care Physician Primary Care Provider Active Start: August 26, 2024 Vidal H Solo BORING MACHINE OPERATOR, BORING MACHINE OPERATOR-C Referring Provider Active S tart: August 26, 2024 Vidal Banda BORING MACHINE OPERATOR, BORING MACHINE OPERATOR-C Other Provider Active Start : August 26, 2024 Dr. Megan Chau MD Attending Provider Activ e Start: August 26, 2024 Team Status: Inactive Member Role Status Dates No Primary Care Physician Primary Care Provider Active Start: November 05, 2024 End: November 05, 2024 No Primary Care Physician Referring Provider Active Start: November 05, 2024 End: November 05, 2024 Vidal Banda BORING MACHINE OPERATOR, BORING MACHINE OPERATOR-C Attending Provider Active S tart: November 05, 2024 End: November 05, 2024 Tool And Equipment Rental Clerk Relationship Specialty Start Date End Date Iwona Stewart MD PCP - General Family Practice 07/16/19 Tool And Equipment Rental Clerk Relationship Specialty Start Date End Date Iwona Stewart MD PCP - General Family Practice 07/16/19 Tool And Equipment Rental Clerk Relationship Specialty Start Date End Date Iwona Stewart MD PCP - General Family Medicine 07/16/19 Tool And Equipment Rental Clerk Relationship Specialty Start Date End Date Iwona Stewart MD PCP - General Family Medicine 07/16/19 Tool And Equipment Rental Clerk Relationship Specialty Start Date End Date Iwona Stewart MD PCP - General Family Medicine 07/16/19 Tool And Equipment Rental Clerk Relationship Specialty Start Date End Date Iwona Stewart MD PCP - General Family Medicine 07/16/19 Tool And Equipment Rental Clerk Relationship Specialty Start Date End Date Iwona Stewart MD PCP - General Family Medicine 07/16/19 Tool And Equipment Rental Clerk Relationship Specialty Start Date End Date Iwona [...] Richardson MD Other Provider Active Rosa Hunt BORING MACHINE OPERATOR, BORING MACHINE OPERATOR-C Other Provider Active Team Status: Active Member [...] Richardson MD Other Provider Active Rosa Hunt BORING MACHINE OPERATOR, BORING MACHINE OPERATOR-C Other Provider Active Team Status: Active Member [...] Richardson MD Other Provider Active Rosa Hunt BORING MACHINE OPERATOR, BORING MACHINE OPERATOR-C Other Provider Active Dr. Megan Chau MD [...] Richardson MD Other Provider Active Rosa Hunt BORING MACHINE OPERATOR, BORING MACHINE OPERATOR-C Other Provider Active Dr. Megan Chau MD Attending Provider, Othe r Provider Active Team Status: Inactive Member Role Status Dates Dr. Iwona Stewart MD Primary Care Provider, Referrin g Provider Active Petra Villegas BORING MACHINE OPERATOR, BORING MACHINE OPERATOR-C Attending Provider Active Team Status: Inactive Member Role Status Dates Dr. Iwona Stewart MD Primary Care Provider Active Petra Villegas BORING MACHINE OPERATOR, BORING MACHINE OPERATOR-C Attending Provider, Referring P rovider Active Team Status: Inactive Member Role Status Dates Dr. Iwona Setwart MD Primary Care Provider Active Dr. Isai Hernandez MD Emergency Provider Active Dr. Sean Ayala MD Admit Provider, Attending Provi jesús Active Dr. Donnell Guevara MD Other Provider Active Dr. Meek Coombs , Other Provider Active Dr. Rodney Brown MD Other Provider Active Dr. Jose Peña MD Other Provider Active Dr. Claude Richardson MD Other Provider Active Rosa Hunt BORING MACHINE OPERATOR, BORING MACHINE OPERATOR-C Other Provider Active Dr. Megan Chau MD [...] Richardson MD Other Provider Active Rosa Hunt BORING MACHINE OPERATOR, BORING MACHINE OPERATOR-C Other Provider Active Team Status: Active Member Role Status Dates Dr. Iwona Stewart MD Primary Care Provider Active Dr. Mark Powers MD Attending Provider Active Petra Villegas BORING MACHINE OPERATOR, BORING MACHINE OPERATOR-C Referring Provider Active Team Status: Active Member Role Status Dates Dr. Iwona Stewart MD Primary Care Provider Active Petra Villegas BORING MACHINE OPERATOR, BORING MACHINE OPERATOR-C Attending Provider Active Team Status: Active Member Role Status Dates Dr. Iwona Stewart MD Primary Care Provider Active Petra Villegas BORING MACHINE OPERATOR, BORING MACHINE OPERATOR-C Referring Provider, Other Provi jesús Active Dr. [...] Dr. Bret Green DO Other Provider Active Tool And Equipment Rental Clerk Relationship Specialty Start Date End Date Iwona Stewart [address] [place] [address] PCP - [facility] Family Medicine 09/25/23 Tool And Equipment Rental Clerk Relationship Specialty Start Date End Date Iwona Stewart [address] [place] [id number] PCP - [facility] Medicine 09/25/23 Team Status: Active Member Role [...] June 24, 2024 Dr. Gregory Kruse MD Attending Provider Active Start: June 24, [...] 2024 End: June 27, 2024 Vidal Banda BORING MACHINE OPERATOR, BORING MACHINE OPERATOR-C Attending Provider Active S tart: June 27, [...] 2024 End: November 05, 2024 Vidal Banda BORING MACHINE OPERATOR, BORING MACHINE OPERATOR-C Attending Provider Active S tart: November 05, 2024 End: November 05, 2024 Team Status: Active Member Role/Relationship Status Dates No Primary Care Physician Primary Care Provider Active Start: February 05, 2025 Vidal Banda BORING MACHINE OPERATOR, BORING MACHINE OPERATOR-C Attending Provider Active S tart: February 05, 2025 Vidal Banda BORING MACHINE OPERATOR, BORING MACHINE OPERATOR-C Referring Provider Active S tart: February 05, [...] 2025 End: February 05, 2025 Vidal Banda BORING MACHINE OPERATOR, BORING MACHINE OPERATOR-C Attending Provider Active S tart: February 05, 2025 End: February 05, 2025 Vidal Banda BORING MACHINE OPERATOR, BORING MACHINE OPERATOR-C Referring Provider Active S tart: February 05, 2025 End: February 05, 2025 Team Status: Active Member Role/Relationship Status Dates Dr. Chelsea Singh MD Primary Care Provider Active Team Status: Active Member Role/Relationship Status Dates No Primary Care Physician Primary Care Provider Active Start: February 05, 2025 Dr. Don Parker MD Attending Provider Active S tart: February 05, 2025 Vidal Banda BORING MACHINE OPERATOR, BORING MACHINE OPERATOR-C Referring Provider Active S tart: February 05, [...] Member Role: Primary Care Physician Address: Address: [address] [place] [id number] Care Team Related Persons Name: DANNI CRUZ Address: Home [address] [place] [phone] Goals (unrecognized section and content) Goals may [...] (Dose Auto Held - Provider: Ashleigh Morrison, EXECUTIVE CREATIVE DIRECTOR - GAS LEAK INSPECTOR)1650 (Unheld by provider - Provider: Christopher Salcedo [...] sedation for opioid reversal - MUST notify saturation equipment operator provider immediately after first dose, may give [...] BE BASED ON THE PRIMARY CLINICAL RECORDS. [facility] [employer] [facility]. provides no warranty or guarantee of the accuracy or completeness of information in this document.
--- NOTE | 2025-05-23 09:50 | CT_ITS ---
PROCEDURE: CTA CHEST W/WO CONTRAST 05/23/2025 REASON FOR EXAM: PLEURITIC CHEST PAIN WHILE OFF ANTICOAG TECHNIQUE: Procedure Code: [id number] Modality: CT Procedure: CTA CHEST W/WO CONTRAST Multiplanar Sagittal and Coronal images were obtained. CONTRAST: Isovue 370 VOLUME: 99 mL One or more dose reduction techniques were used (e.g., Automated exposure control, adjustment of the mA and/or kV according to patient size, use of iterative reconstruction technique). RADIATION DOSE SUMMARY: CTDlvol: 15.01 mGy DLP: 487.78 mGycm COMPARISON: Chest x-ray 05/22/2025. # of known CTs in the past 12 months: 0 # of known Cardiac Nuclear Medicine Studies in the past 12 months: 0 FINDINGS: Thoracic Aorta: No aneurysm. Atherosclerotic calcifications. Heart: Moderate cardiomegaly. A left-sided pacemaker. Small pericardial effusion. Pulmonary Vessels: No evidence of pulmonary embolism. Hardware: Unremarkable. Lymph nodes: No lymphadenopathy. Lungs and Airways: Atelectasis in the lower lobes. Pleura: Large bilateral pleural effusions. Upper Abdomen: Unremarkable. Bones: No acute bony abnormalities. CT/CTA Chest W/WO Contrast IMPRESSION: No evidence of pulmonary embolism. Bilateral pleural effusions concerning for CHF. Reading Location: [facility]
[2025-05-23 10:50] LABS: Anion Gap 9 (5-15); BUN 24 mg/dL (4-19); BUN/Creat Ratio 17.8 RATIO (10-20); Calcium,Total 7.9 mg/dL (7.6-11.0); Carbon Dioxide 24.0 mmol/L (21.0-32.0); Chloride 103 mmol/L (98-108); Estimated Creatinine Clearance 47.03 ml/min (50-250); Glucose 93 mg/dL (70-99); Potassium 4.5 mmol/L (3.3-5.1); Troponin T High Sensitivity 40 ng/L (<=22)
[2025-05-23] MEDS: Lidocaine 2% Viscous15 ML UDC 15 ML PO (11:42)
[2025-05-23 13:40] LABS: Troponin T High Sens 2 HR 43 ng/L (<=22)
== END 2025-05-23 14:08 | disposition home or self-care (01) ==
PROVIDERS: Emergency Provider Emergency Medicine; PCP Internal Medicine; Visit Provider Emergency Medicine
DX: R07.89 Other chest pain (principal); I50.22 Chronic systolic (congestive) heart failure; I13.0 Hypertensive heart and chronic kidney disease with heart failure and stage 1 through stage 4 chronic kidney disease, or unspecified chronic kidney disease; I48.0 Paroxysmal atrial fibrillation; N18.30 Chronic kidney disease, stage 3 unspecified; E78.5 Hyperlipidemia, unspecified; Z95.810 Presence of automatic (implantable) cardiac defibrillator; I25.10 Atherosclerotic heart disease of native coronary artery without angina pectoris; I25.2 Old myocardial infarction; K21.9 Gastro-esophageal reflux disease without esophagitis; Z95.5 Presence of coronary angioplasty implant and graft; Z79.01 Long term (current) use of anticoagulants; Z79.02 Long term (current) use of antithrombotics/antiplatelets; Z79.899 Other long term (current) drug therapy; J90 Pleural effusion, not elsewhere classified; I25.5 Ischemic cardiomyopathy; G89.18 Other acute postprocedural pain; Z98.890 Other specified postprocedural states
CPT/HCPCS: 71045; 71275; 80048; 84484; 85025; 85379; 85730; 93005; 96374; 99283; Q9967; A4216; J1938